=== PATIENT | male | born 1960 | race Caucasian/White ===

== ENCOUNTER 2017-05-18 20:27 | Inpatient (IN) | payer BC ==
[~2017-05-18] VITALS: Ht 167.6 cm; Wt 72.7 kg
[~2017-05-18 20:27] MED LIST: ALBU8.5H3 INH; ASPI-535 PO; ATOR10TA65 PO; BCL80INH INH; CALC667C PO; CARV12.579 PO; FAMO40TA52 PO; GABA300C16 PO; GEMF600T PO; INSU100I17 SQ; ISOS30TA PO; LANT3I SC; LOSA50TA6 PO; METF500T PO; NEPH PO; NIT4 SL; ONDA4TAB8 PO; PRED20TA PO; TRAM50TA2 PO
[2017-05-18] MEDS ORDERED: LABETALOL HCL 20MG INJ IV ONE (21:00)
[2017-05-18] MEDS ORDERED: LORAZEPAM 2 MG INJ IV ONE (21:00)
--- NOTE | 2017-05-18 21:01 | RADRPT ---
PROCEDURE: Portable chest x-ray. CLINICAL INDICATION: Chest pain. 56-year-old male.. TECHNIQUE: Portable AP view of the chest. COMPARISON: October 18, 2015. FINDINGS: In the interval since prior exam, patient has had surgery with sternal wires. Cardiomediastinal contours are normal. Linear atelectasis or scarring left lung base. Lungs are otherwise clear. Negative for pleural effusion or pneumothorax.. Old fracture deformity proximal right humerus is incompletely imaged. No acute bony abnormality. IMPRESSION: Linear atelectasis or scarring left lung base. New sternal wires. RPTAT: HCTS Physician Benjamín Date Time Electronically viewed and signed by Physician Benjamín on 05/18/2017 21:01 CS/
[2017-05-18 21:07] LABS: BASOPHILS % 0.7 % (0.0-2.0); EOSINOPHILS # 0.3 10^3/ul (0.0-0.5); EOSINOPHILS % 5.8 % (0.0-7.0); HEMOGLOBIN 15.6 g/dl (14.0-18.0); LYMPHOCYTES # 1.7 10^3/ul (0.8-2.9); LYMPHOCYTES % 31.2 % (15.0-51.0); MEAN CORPUSCULAR HEMOGLOBIN 30.3 pg (29.0-33.0); MEAN CORPUSCULAR HGB CONC 34.7 g/dl (32.0-37.0); MEAN CORPUSCULAR VOLUME 87.4 fl (82.0-101.0); MEAN PLATELET VOLUME 10.8 fl (7.4-10.4); MONOCYTE # 0.3 10^3/ul (0.3-0.9); MONOCYTES % 5.8 % (0.0-11.0); NEUTROPHIL # 3.1 10^3/ul (1.6-7.5); PLATELET COUNT 198 10^3/UL (140-415); RED BLOOD COUNT 5.15 10^6/ul (4.70-6.10); RED CELL DISTRIBUTION WIDTH 12.4 % (11.5-14.5); WHITE BLOOD COUNT 5.5 10^3/ul (4.8-10.8)
[2017-05-18 21:20] LABS: INR 0.82; PROTIME 11.3 Sec (12.2-14.2); PT RATIO 0.9
[2017-05-18 21:21] LABS: PARTIAL THROMBOPLASTIN TIME 29.6 Sec (25.0-35.0)
[2017-05-18 21:23] LABS: ANION GAP 20 (8-16); BLOOD UREA NITROGEN 44 mg/dl (7-20); CALCIUM 9.8 mg/dl (8.4-10.2); CARBON DIOXIDE 31 mmol/L (21-31); CHLORIDE 97 mmol/L (97-110); CREATININE 3.49 mg/dl (0.61-1.24); GLUCOSE 280 mg/dl (70-220); SODIUM 143 mmol/L (135-144)
[2017-05-18] MEDS ORDERED: ASPIRIN 325 MG TAB PO ONE (21:30)
[2017-05-18 21:47] LABS: ADD UMIC YES; UR ASCORBIC ACID NEGATIVE (NEGATIVE); UR BACTERIA FEW /HPF (NONE SEEN); UR BILIRUBIN (Dip) NEGATIVE (NEGATIVE); UR BLOOD (Dip) 1+ mg/dL (NEGATIVE); UR CLARITY CLEAR (CLEAR); UR COLOR YELLOW (YELLOW); UR GLUCOSE (Dip) 2+ mg/dL (NEGATIVE); UR KETONES (Dip) NEGATIVE (NEGATIVE); UR LEUKOCYTE ESTERASE (Dip) NEGATIVE Leu/ul (NEGATIVE); UR NITRITE (Dip) NEGATIVE (NEGATIVE); UR RBC 4 /HPF (0-5); UR TOTAL PROTEIN (Dip) 2+ mg/dl (NEGATIVE); UR UROBILINOGEN (Dip) NEGATIVE (NEGATIVE)
[2017-05-18 21:48] LABS: TROPONIN-I < 0.012 ng/ml (0.00-0.12)
[2017-05-18 22:19] LABS: BARBITURATES Negative (NEGATIVE); BENZODIAZEPINES Negative (NEGATIVE); CANNABINOIDS Negative (NEGATIVE); COCAINE Negative (NEGATIVE); OPIATES Negative (NEGATIVE)
--- NOTE | 2017-05-18 22:25 | ERA ---
ER Documentation Chief Complaint Date/Time DATE: 05/18/17 TIME: 22:23 Chief Complaint [id number] fron home,gen. weakness for days,slurred speech an hour ago,numbness HPI Patient is a 56-year-old male with cardiac disease, hypertension, and diabetes who presents with strokelike symptoms. He had slurred speech and left-sided arm numbness over the past few days that is coming and going. The last episode started 1 hour ago but has resolved. His blood pressure was high as well. He was brought in by ambulance. His sugar was normal at 146. His primary doctor is Dr. Ramos. He has had no treatment as of yet. ROS All systems reviewed and are negative except as per history of present illness. Medications Home Meds Active Scripts Ondansetron Hcl* (Zofran*) 4 Mg Tablet, 4 MG PO Q8H Y for NAUSEA AND/OR VOMITING , #10 TAB Prov:RAFAEL POE 10/18/15 Prednisone* (Prednisone*) 20 Mg Tab, 20 MG PO BID for 4 Days, TAB Prov:RAFAEL POE 10/18/15 Reported Medications Multivit/Ca Carb/B Cmplx/Fa* (Karena-Geovanni*) 1 Tab Tab, 1 TAB PO DAILY, TAB 10/18/15 Famotidine* (Famotidine*) 40 Mg Tablet, 40 MG PO HS, TAB 10/18/15 Nitroglycerin* (Nitrostat*) 0.4 Mg Tab.subl, 0.4 MG SL Q5MIN Y for CHEST PAIN, BOTTLE 10/18/15 Losartan Potassium* (Losartan Potassium*) 50 Mg Tablet, 50 MG PO DAILY, TAB 10/18/15 Albuterol Sulfate* (Proair HFA*) 8.5 Gm Hfa.aer.ad, 2 PUFF INH Q4H Y for WHEEZING AND SOB, #1 INHALER 10/18/15 Insulin Glulisine (Apidra Solostar) 100 Unit/1 Ml Insuln.pen, 10-15 UNIT SQ WITH MEALS 10/18/15 Insulin Glargine* (Lantus*) 100 Unit/Ml Soln, 30 UNIT SC HS, EA 10/18/15 Calcium Acetate* (Calcium Acetate*) 667 Mg Capsule, 667 MG PO WITH MEALS, #30 CAP 10/18/15 Carvedilol* (Carvedilol*) 12.5 Mg Tablet, 12.5 MG PO BID, TAB 10/18/15 Atorvastatin Calcium (Atorvastatin Calcium) 10 Mg Tab, 10 MG PO DAILY, TAB 02/20/14 Metformin Hcl (Glucophage) 500 Mg Tablet, 1000 MG PO BID, TAB 02/20/14 Gemfibrozil* (Lopid*) 600 Mg Tablet, 600 MG PO BID, TAB 02/20/14 Tramadol HCl (Tramadol HCl) 50MG Tab, 50 MG PO BID, TAB 02/20/14 Beclomethasone Dip (Qvar 80) 1 Puff Inha, 2 PUFF INH BID, INH RINSE MOUTH AFTER EACH USE 02/20/14 Isosorbide Mononitrate* (Imdur*) 30 Mg Tab.sr.24h, 30 MG PO DAILY, TAB 02/20/14 Aspirin Ec (Aspir 81) 81 Mg Tablet.dr, 81 MG PO DAILY 02/20/14 Gabapentin* (Gabapentin*) 300 Mg Capsule, 300 MG PO DAILY 02/02/13 Allergies Allergies: Coded Allergies: No Known Drug Allergies (Verified Allergy, Unknown, 10/18/15) PMhx/Soc History of Surgery: No Anesthesia Reaction: No Hx Neurological Disorder: No Hx Respiratory Disorders: No Hx Cardiac Disorders: Yes (HTN) Hx Psychiatric Problems: No Hx Miscellaneous Medical Probl: Yes (DM, HIGH CHOLESTEROL) Hx Alcohol Use: No Hx Substance Use: No Hx Tobacco Use: No Smoking Status: Never smoker FmHx Family History: diabetes Physical Exam Vitals Vital Signs Date Time Temp Pulse Resp B/P Pulse Ox O2 Delivery O2 Flow Rate FiO2 05/18/17 22:19 98.0 62 19 180/102 97 Room Air 05/18/17 21:57 98.1 63 19 183/105 97 Room Air 05/18/17 21:28 98.1 60 19 128/86 97 Room Air 05/18/17 20:59 Nasal Cannula 2 05/18/17 20:30 98.1 65 18 189/98 97 Physical Exam Const: No acute distress Head: Atraumatic Eyes: Normal Conjunctiva ENT: Normal External Ears, Nose and Mouth. Neck: Full range of motion..~ No meningismus. Resp: Clear to auscultation bilaterally Cardio: Regular rate and rhythm, no murmurs Abd: Soft, non tender, non distended. Normal bowel sounds Skin: No petechiae or rashes Back: No midline or flank tenderness Ext: No cyanosis, or edema Neur: Awake and alert, no slurred speech, no weakness of the upper or lower extremities bilaterally, cranial nerves II through XII are intact Psych: Normal Mood and Affect Result Diagram: 05/18/17205405/18/172054 Results 24 hrs Laboratory Tests Test 05/18/17 20:55 05/18/17 21:12 05/18/17 21:30 White Blood Count 5.510^3/ul Red Blood Count 5.1510^6/ul Hemoglobin 15.6g/dl Hematocrit 45.0% Mean Corpuscular Volume 87.4fl Mean Corpuscular Hemoglobin 30.3pg Mean Corpuscular Hemoglobin Concent 34.7g/dl Red Cell Distribution Width 12.4% Platelet Count 67024^3/UL Mean Platelet Volume 10.8fl Neutrophils % 56.0% Lymphocytes % 31.2% Monocytes % 5.8% Eosinophils % 5.8% Basophils % 0.7% Nucleated Red Blood Cells % 0.0/100WBC Neutrophils # 3.110^3/ul Lymphocytes # 1.710^3/ul Monocytes # 0.310^3/ul Eosinophils # 0.310^3/ul Basophils # 0.010^3/ul Nucleated Red Blood Cells # 0.010^3/ul Prothrombin Time 11.3Sec Prothrombin Time Ratio 0.9 INR International Normalized Ratio 0.82 Activated Partial Thromboplast Time 29.6Sec Sodium Level 143mmol/L Potassium Level 5.0mmol/L Chloride Level 97mmol/L Carbon Dioxide Level 31mmol/L Anion Gap 20 Blood Urea Nitrogen 44mg/dl Creatinine 3.49mg/dl Glucose Level 280mg/dl Hemoglobin A1c 10.6% Calcium Level 9.8mg/dl Troponin I < 0.012ng/ml Bedside Glucose 259mg/dL Urine Color YELLOW Urine Clarity CLEAR Urine pH 6.0 Urine Specific [place] 1.010 Urine Ketones NEGATIVEmg/dL Urine Nitrite NEGATIVEmg/dL Urine Bilirubin NEGATIVEmg/dL Urine Urobilinogen NEGATIVEmg/dL Urine Leukocyte Esterase NEGATIVELeu/ul Urine Microscopic RBC 4/HPF Urine Microscopic WBC 1/HPF Urine Bacteria FEW/HPF Urine Hemoglobin 1+mg/dL Urine Glucose 2+mg/dL Urine Total Protein 2+mg/dl Urine Opiates Screen Negative Urine Barbiturates Negative Urine Amphetamines Screen Negative Urine Benzodiazepines Screen Negative Urine Cocaine Screen Negative Urine Cannabinoids Negative Current Medications Medications (Trade) Dose Ordered Sig/Chloe Route PRN Reason Start Time Stop Time Status Last Admin Dose Admin Lorazepam (Ativan) 1 mg ONCE ONCE IV 05/18/17 21:00 05/18/17 21:01 DC Labetalol HCl (Labetalol) 20 mg ONCE ONCE IV 05/18/17 21:00 05/18/17 21:01 DC 05/18/17 20:58 Aspirin (Aspirin) 325 mg ONCE ONCE PO 05/18/17 21:30 05/18/17 21:31 DC 05/18/17 21:32 Procedures/MDM EKG read by me: Rate/Rhythm: Regular rate and rhythm at a rate of 70 Intervals: Normal Impression: No evidence of ischemia or arrhythmia PROCEDURE: Portable chest x-ray. CLINICAL INDICATION: Chest pain. 56-year-old male.. TECHNIQUE: Portable AP view of the chest. COMPARISON: October 18, 2015. FINDINGS: In the interval since prior exam, patient has had surgery with sternal wires. Cardiomediastinal contours are normal. Linear atelectasis or scarring left lung base. Lungs are otherwise clear. Negative for pleural effusion or pneumothorax.. Old fracture deformity proximal right humerus is incompletely imaged. No acute bony abnormality. IMPRESSION: Linear atelectasis or scarring left lung base. New sternal wires. RPTAT: HCTS Physician Benjamín Date Time Electronically viewed and signed by Konrad Tomlinson Physician on 05/18/2017 21: 01 Patient is adamantly refusing CT scan of the brain at this time even after offering Ativan. Patient is a 56-year-old male with multiple cardiac risk factors who presents with symptoms consistent with a TIA. At this point he has no further slurred speech or weakness and I doubt acute stroke at this time. I doubt intracranial hemorrhage although he is refusing CT scan of the brain. The patient was given aspirin as I do believe this is likely TIA or early ischemic stroke versus hemorrhagic stroke and I believe the benefits of giving aspirin outweigh the risks. The patient has a creatinine of 3.49 showing acute renal failure as his last creatinine was 1.7. The patient will be admitted transferred to [facility] given his insurance. I spoke with Dr. Jules who has accepted the patient in transfer. As his symptoms started days ago he is outside the window for TPA and his symptoms have resolved completely so also would not give TPA as the risk would outweigh the benefits. Departure Diagnosis: Primary Impression: TIA (transient ischemic attack) Qualified Code: G45.9 - Transient cerebral ischemia, unspecified type Additional Impressions: Slurred speech Acute weakness Condition: MARYJANE Rosen MD May 18, 2017 22:25
[2017-05-19] VITALS (12 sets, daily range): BP systolic 106–181; BP diastolic 66–100; PULSE 50–68; RESP 16–18; TEMP 98.1; Ht 167.6 cm; Wt 72.7 kg
[2017-05-19] MEDS ORDERED: DOCU-159 PO (00:07)
[2017-05-19] MEDS ORDERED: CLOP75TA4 PO (00:07)
[2017-05-19] MEDS ORDERED: FURO80TA3 PO (00:07)
[2017-05-19] MEDS ORDERED: ERGO500037 PO (00:07)
[2017-05-19] MEDS ORDERED: TAMS0.4C2 PO (00:07)
[2017-05-19] MEDS ORDERED: DILT240C79 PO (00:07)
[2017-05-19] MEDS ORDERED: SITA50TA2 PO (00:07)
[2017-05-19] MEDS ORDERED: FER325 PO (00:07)
[2017-05-19] MEDS ORDERED: TRAM-40 PO (00:07)
[2017-05-19] MEDS ORDERED: PARO10TA76 PO (00:07)
[2017-05-19] MEDS ORDERED: POTA-57 PO (00:07)
[2017-05-19] MEDS ORDERED: DEXTROSE 50% 50 ML SYRINGE IV PRN ×2 (05:00)
[2017-05-19] MEDS ORDERED: GLUCOSE GEL 15 GRAM TUBE PO PRN ×2 (05:00)
[2017-05-19] MEDS ORDERED: GLUCAGON 1 MG INJ IM PRN (05:00)
[2017-05-19] MEDS ORDERED: ONDANSETRON 4 MG INJ IV PRN (05:00)
[2017-05-19] MEDS ORDERED: NACL 0.9% 3 ML SYG IV SCH (05:00)
[2017-05-19] MEDS ORDERED: ACETAMINOPHEN 325 MG TAB PO PRN (05:00)
[2017-05-19] MEDS ORDERED: GLUCOSE GEL 15 GRAM TUBE BUCCAL PRN (05:00)
--- NOTE | 2017-05-19 07:14 | HP ---
Date/Time of Note Date/Time of Note DATE: 05/19/17 TIME: 06:49 Assessment/Plan VTE Prophylaxis VTE Prophylaxis Intervention: SCD's Assessment/Plan Chief Complaint/Hosp Course This is a 56-year-old male being admitted to the telemetry floor for: #1 TIA/CVA: Patient was initially to be transferred to another facility [facility] however patient was unsteady in his gait and he was deemed unstable for transfer. Patient refused CAT scan in the ED. Upon my examination patient again further was refusing CAT scan. I have ordered MRI of the brain and carotid ultrasound and echocardiogram for today, hopefully the patient will be cooperative in the morning for this. Will consult neurology. #2 coronary artery disease: At the current time will hold sepsis however once we can definitively rule out any sort of hemorrhagic neurological issue we will resume immediately. #3 diabetes: Resume patient's home insulin. The patient on insulin sliding scale. Will check hemoglobin A1c. #4 hypertension: At the current time will allow for permissive hypertension though we are not sure this is an ischemic versus hemorrhagic issue in this case. Patient though is currently stable and not showing any signs of deterioration. Will obtain the imaging as soon as we can. And adjust blood pressure parameters as indicated. We will try to maintain below 220/120 at this time. #5 depression: Resume paroxetine is indicated. #6 acute on chronic kidney disease: Previous creatinine one-point year ago was 1.7 today's creatinine is 3.49. At the current time will obtain urine sodium level, renal ultrasound. Will consult nephrology. Avoid nephrotoxic agents. #7 DVT and GI prophylaxis: SCDs, acid belinda. Further treatment strategy will be implemented for the clinical course. Problems: HPI/ROS Admit Date/Time Admit Date/Time May 19, 2017 at 01:59 Hx of Present Illness Chief complaint: Strokelike symptoms This is a is a 56-year-old male with cardiac disease, hypertension, and diabetes who presents with strokelike symptoms. He had slurred speech and left- sided arm numbness over the past few days that is coming and going. The last episode started 1 hour ago but has resolved. His blood pressure was high as well. He was brought in by ambulance. His sugar was normal at 146. His primary doctor is Dr. Ramos. Upon my examination patient did not display any signs of focal neurological deficits. Patient was in bed sleeping. He is easily arousable. Patient was questioned why he did not want to do the CAT scan and patient did not want to do it. Patient is also very poor historian. Allergies: NKDA Occasions: See DEC ROS Const: As per HPI Eyes : No pain discharge or redness or change in visual acuity ENT: No pain, sore throat, congestion, congestion, dysphagia or discharge Respiratory: No shortness of breath, cough, sputum, wheezing, or pleuritic pain Cardiovascular: No chest pain, palpitation, PND, or edema GI : no change in appetite, abdominal pain, nausea, vomiting, diarrhea, constipation, or change in the color his stool Genitourinary: No dysuria, hematuria, flank pain , discharge or CVA tenderness Musculoskeletal: No joint pain, back pain, neck pain, restricted range of motion in neck or joints Skin: No rash, bruising or hives Neuro: As per HPI Endocrine: No polyuria, polydipsia, temperature intolerance Psych: No hallucination, depression, anxiety or suicidal ideation PMH/Family/Social Past Medical History cardiac disease, hypertension, and diabetes, BPH, depression. Past Surgical History CABG? Family History Significant Family History: no pertinent family hx, other (Patient lying in bed and being uncooperative with history he wants to sleep) Social History Alcohol Use: none Smoking Status: Never smoker Drug Use: none Exam/Review of Systems Vital Signs Vitals Vital Signs Date Time Temp Pulse Resp B/P Pulse Ox O2 Delivery O2 Flow Rate FiO2 05/19/17 05:17 50 05/19/17 03:20 98.3 16 176/94 95 05/19/17 02:25 Room Air 05/18/17 20:59 2 Intake and Output 05/18/17 05/18/17 05/19/17 15:00 23:00 07:00 Intake Total 200 ml Output Total 400 ml Balance -200 ml Exam Exam General: Patient has lying in bed in no acute distress. He is easily arousable however he is uncooperative and was asleep. HEENT: Atraumatic, normocephalic. The pupils are equal, round and reactive. Extraocular motor are intact Neck: Supple with full range of motion. No rigidity or meningismus Chest: Nontender Lungs: Clear to auscultation bilaterally no crackles rales or wheezing Heart: Normal S1-S2, Regular rhythm and rate. No murmur, S3, or S4 Abdomen: Soft , nontender, nondistended , bowel sounds are present. No guarding no rebound tenderness , No masses or organomegaly. No costovertebral temporal angle mass Extremities: Normal to inspection, no edema no cyanosis Neurologic: Based on ED physician examination in my examination: Normal mental status, speech normal, cranial nerves II through XII are intact, motor and sensory are intact, no focal weakness Additional Comments EKG read by me: Rate/Rhythm: Regular rate and rhythm at a rate of 70 Intervals: Normal Impression: No evidence of ischemia or arrhythmia As per ED physician document PROCEDURE: Portable chest x-ray. CLINICAL INDICATION: Chest pain. 56-year-old male.. TECHNIQUE: Portable AP view of the chest. COMPARISON: October 18, 2015. FINDINGS: In the interval since prior exam, patient has had surgery with sternal wires. Cardiomediastinal contours are normal. Linear atelectasis or scarring left lung base. Lungs are otherwise clear. Negative for pleural effusion or pneumothorax.. Old fracture deformity proximal right humerus is incompletely imaged. No acute bony abnormality. IMPRESSION: Linear atelectasis or scarring left lung base. New sternal wires. RPTAT: HCTS Physician Benjamín Date Time Electronically viewed and signed by Physician Benjamín on 05/18/2017 21: 01 CS/ Labs Result Diagram: 05/18/17205405/18/172054 Medications Medications Current Medications Ondansetron HCl (Zofran Inj) 4 mg Q6H PRN IV NAUSEA AND/OR VOMITING; Start 08/25 at 05:00 Acetaminophen (Tylenol Tab) 650 mg Q6H PRN PO PAIN LEVEL 1-3 OR FEVER; Start at 05:00 Famotidine (Pepcid) 20 mg DAILY PO ; Start 05/19/17 at 09:00 Diagnostic Test (Pha) (Accu-Chek) 1 ea 02 XX ; Start 05/20/17 at 02:00 Miscellaneous Information 1 ea NOTE XX ; Start 05/19/17 at 05:00 Glucose (Glutose) 15 gm Q15M PRN PO DECREASED GLUCOSE; Start 05/19/17 at 05:00 Glucose (Glutose) 22.5 gm Q15M PRN PO DECREASED GLUCOSE; Start 05/19/17 at 05: 00 Dextrose (D50w Syringe) 25 ml Q15M PRN IV DECREASED GLUCOSE; Start 05/19/17 at 05:00 Dextrose (D50w Syringe) 50 ml Q15M PRN IV DECREASED GLUCOSE; Start 05/19/17 at 05:00 Glucagon (Glucagen) 1 mg Q15M PRN IM DECREASED GLUCOSE; Start 05/19/17 at 05:00 Glucose (Glutose) 15 gm Q15M PRN BUCCAL DECREASED GLUCOSE; Start 05/19/17 at 05 :00 ALFREDO FELDER May 19, 2017 06:59
[2017-05-19] MEDS ORDERED: hydrALAzine 20 MG INJ IV PRN (07:30)
[2017-05-19] MEDS: INSULIN ASPART [NOVOLOG] 3 ML PEN SC SCH ×4 (07:55→21:09)
[2017-05-19] MEDS ORDERED: CLOPIDOGREL 75 MG TAB PO SCH (09:00)
[2017-05-19] MEDS: GABAPENTIN 300 MG CAP PO SCH (09:19)
[2017-05-19] MEDS: FAMOTIDINE 20 MG TAB PO SCH (09:19)
--- NOTE | 2017-05-19 11:11 | RADRPT ---
PROCEDURE: US Renal CLINICAL INDICATION: Acute and chronic kidney disease. TECHNIQUE: Multiple sonographic images of the kidneys and bladder were obtained. Evaluation of th e kidneys and bladder was performed as well with brown scale and color and Doppler evaluation using a curved array transducer. The images were reviewed on a high-resolution PACS workstation. COMPARISON: No prior studies are available for comparison. FINDINGS: The right kidney measures 8.9 cm. The left kidney measures 9.5 cm. Renal parenchyma appears mildly echogenic bilaterally. There is no mass, calculus, or obstructive uropathy. No perinephric fluid collection is seen. Evaluation of the urinary bladder is unremarkable. IMPRESSION: 1. Mildly echogenic renal parenchyma suggesting medical renal disease. RPTAT: AACC Physician Mary Date Time Electronically viewed and signed by Physician Mary on 05/19/2017 11:11 /
--- NOTE | 2017-05-19 11:40 | CONS ---
DATE OF ADMISSION: 05/19/2017 DATE OF CONSULTATION: 05/19/2017 REASON FOR CONSULTATION: Acute kidney injury. REFERRING PHYSICIAN: Dr. Akbar. HISTORY OF PRESENT ILLNESS: This is a 56-year-old male with a past medical history of chronic kidney disease stage IIIB/IV with a baseline GFR around 32 mL/minute per patient, history of diabetes, hypertension, history of chronic disease presents to [facility] with slurred speech. The patient states he had left arm numbness and slurred speech over the past few days. It has been ongoing. The patient's symptoms resolved one hour ago. Upon arrival to the emergency room, the patient's symptoms resolve. The patient had laboratory data drawn which showed a BUN of 44, creatinine 3.49 and patient was noted to be hypertensive. The patient was given labetalol, admitted to telemetry for evaluation. In terms of patient's renal history, the patient has underlying chronic kidney disease. He sees an outside sprinkler helper, does not know the physician's name. The patient's states his kidney function is around 32 percent. He believes it to be attributed to diabetes. Denies any frothy urine, any hemoptysis, hematemesis, or hematochezia. PAST MEDICAL HISTORY: As stated above. History of hypertension, history of diabetes, history of chronic kidney disease. PAST SURGICAL HISTORY: Unknown. ALLERGIES: NONE. FAMILY HISTORY: Positive for diabetes. SOCIAL HISTORY: Does not drink, smoke, or do drugs. MEDICATION: The patient's medications have been reviewed. REVIEW OF SYSTEMS: Fourteen-point review of systems was conducted. Pertinent positives in HPI, otherwise negative. PHYSICAL EXAMINATION: VITAL SIGNS: Blood pressure is 181/100, respirations 18, pulse 55, temperature 98.5. HEENT: Head is normocephalic. NECK: Supple. HEART: Regular rate. LUNGS: Diminished breath sounds at the base. ABDOMEN: Soft, nontender to palpation. No rebound or guarding. EXTREMITIES: Negative for clubbing, cyanosis, no edema. DERMATOLOGIC: No rashes. MUSCULOSKELETAL: No joint effusion. NEUROLOGIC: Unchanged exam. LABORATORY: Sodium 143, potassium 5.0, BUN for 44, creatinine 3.49. The CBC is within normal limits. Imaging studies: Chest x-ray showed no acute findings. IMPRESSION AND PLAN: 1. Nonoliguric acute kidney injury on top of chronic kidney disease with unknown baseline creatinine. Etiology of acute kidney injury is possibly secondary to hemodynamics, ARB effect, diuretic effect, questionable tubular injury. The patient's initial urinalysis shows positive proteinuria but otherwise nonactive. Plan at this point is to get a renal ultrasound to evaluate renal parenchyma. Will repeat urinalysis and check urine electrolytes. Would recommend to hold ARB and diuretic therapy at this time. Will avoid IV fluids in setting of hypertension. Otherwise continue supportive care. Renally dose medications. Avoid nephrotoxins. 2. Hypertensive urgency. Etiology may be secondary to recent TIA, questionable stroke. The patient has refused CT scan of brain. Will monitor closely. 3. Mineral bone disorder. Will monitor calcium and phosphorus levels. 4. Transient ischemic attack/cerebral vascular accident. The patient is currently under current medical management. Continue. Follow up with Urology. 5. History of coronary disease. Continue current medical management. 6. Gastrointestinal and deep venous thrombosis prophylaxis. 7. Thank you, Dr. Akbar for this interesting consult. It will be a pleasure to follow patient with you throughout the hospital course. Dictated By: Alex Bah DO /trini/jovan /Document#: [id number]
--- NOTE | 2017-05-19 12:04 | RADRPT ---
PROCEDURE: US Carotids. CLINICAL INDICATION: bruit , tia TECHNIQUE: Multiple sonographic of the carotid bifurcation region and vertebral arteries were obta ined utilizing brown scale, duplex and color-flow imaging. The images were reviewed on a PACS worksta tion. COMPARISON: No prior studies are available for comparison. FINDINGS: Evaluation of the right carotid bifurcation region reveals mild calcific atherosclerotic disease. Evaluation of the left carotid bifurcation region reveals mild calcific atherosclerotic disease. There is antegrade flow within the vertebral arteries bilaterally. RIGHT CAROTID MEASUREMENTS: Common Carotid Ftertq169.9 (cm/sec) Internal Carotid Artery - yrfihjrb35.5 (cm/sec) Internal Carotid Artery - mid80.6 (cm/sec) Internal Carotid Artery - .2 (cm/sec) Internal Carotid/Common Carotid1.01 LEFT CAROTID MEASUREMENTS: Common Carotid Aqkmiw52.3 (cm/sec) Internal Carotid Artery - mqnteyqz46 (cm/sec) Internal Carotid Artery - mid89.4 (cm/sec) Internal Carotid Artery - jauhza64.3 (cm/sec) Internal Carotid/Common Carotid1.03 RPTAT: AA IMPRESSION: No evidence for hemodynamically significant stenosis in the bilateral internal carotid arteries - va lidated velocity measurements with angiographic measurements, velocity criteria are extrapolated fro m diameter data as defined by the Society of Radiologists in Ultrasound Consensus Conference Radiolo gy 2003; 229;340-346. This study does indirectly reference the measurement of the distal ICA diamet er as the denominator for stenosis measurement. Normal antegrade flow in the vertebral arteries bilaterally. .Yusuf House MD, MD Date Time Electronically viewed and signed by .Yusuf House MD, on 05/19/2017 12:04 .S/
[2017-05-19 12:55] LABS: CALCIUM 9.1 mg/dl (8.4-10.2); CREATININE 3.06 mg/dl (0.61-1.24); POTASSIUM 4.9 mmol/L (3.5-5.1)
--- NOTE | 2017-05-19 15:26 | PN ---
Date/Time of Note Date/Time of Note DATE: 05/19/17 TIME: 15:23 Assessment/Plan VTE Prophylaxis VTE Prophylaxis Intervention: LMWH Assessment/Plan Chief Complaint/Hosp Course 56 yo male with h/o CAD who presents with orthostatic presyncope. Culprit almost certainly excessive amount of BP medications he is prescribed as well as hypovolemia and HANSEL precipitated by lasix - Will plan to hold antihypertensives and monitor his BP - Hold lasix, give some IVF. Does not ever give a history of clinical CHF w edema etc - Trend creatinine for HANSEL, suspect improvement. 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 Gets dizzy only when standing, remains dizzy. Slurred speech occurs only in this setting. Feels normal when back supine for a few minutes. Never dizziness at rest. Became dizzy walking to bathroom. No change to PO intake. No urinary obstructive symptoms Exam/Review of Systems Vital Signs Vitals Vital Signs Date Time Temp Pulse Resp B/P Pulse Ox O2 Delivery O2 Flow Rate FiO2 05/19/17 12:49 68 05/19/17 11:16 98.4 18 135/75 96 05/19/17 02:25 Room Air 05/18/17 20:59 2 Intake and Output 05/18/17 05/18/17 05/19/17 14:59 22:59 06:59 Intake Total 200 ml Output Total 400 ml Balance -200 ml Results Result Diagram: 05/18/17205405/19/17 121 Results 24 hrs Laboratory Tests Test 05/18/17 20:55 05/18/17 21:12 05/18/17 21:30 05/19/17 08:22 White Blood Count 5.5 Red Blood Count 5.15 Hemoglobin 15.6 Hematocrit 45.0 Mean Corpuscular Volume 87.4 Mean Corpuscular Hemoglobin 30.3 Mean Corpuscular Hemoglobin Concent 34.7 Red Cell Distribution Width 12.4 Platelet Count 198 Mean Platelet Volume 10.8 H Neutrophils % 56.0 Lymphocytes % 31.2 Monocytes % 5.8 Eosinophils % 5.8 Basophils % 0.7 Nucleated Red Blood Cells % 0.0 Neutrophils # 3.1 Lymphocytes # 1.7 Monocytes # 0.3 Eosinophils # 0.3 Basophils # 0.0 Nucleated Red Blood Cells # 0.0 Prothrombin Time 11.3 L Prothrombin Time Ratio 0.9 INR International Normalized Ratio 0.82 Activated Partial Thromboplast Time 29.6 Sodium Level 143 Potassium Level 5.0 Chloride Level 97 Carbon Dioxide Level 31 Anion Gap 20 H Blood Urea Nitrogen 44 H Creatinine 3.49 H Glucose Level 280 H Hemoglobin A1c 10.6 H Calcium Level 9.8 Troponin I < 0.012 Bedside Glucose 259 H 180 Urine Color YELLOW Urine Clarity CLEAR Urine pH 6.0 Urine Specific [place] 1.010 Urine Ketones NEGATIVE Urine Nitrite NEGATIVE Urine Bilirubin NEGATIVE Urine Urobilinogen NEGATIVE Urine Leukocyte Esterase NEGATIVE Urine Microscopic RBC 4 Urine Microscopic WBC 1 Urine Bacteria FEW A Urine Hemoglobin 1+ H Urine Glucose 2+ H Urine Total Protein 2+ H Urine Opiates Screen Negative Urine Barbiturates Negative Urine Amphetamines Screen Negative Urine Benzodiazepines Screen Negative Urine Cocaine Screen Negative Urine Cannabinoids Negative Test 05/19/17 12:11 05/19/17 14:04 Sodium Level 141 Potassium Level 4.9 Chloride Level 100 Carbon Dioxide Level 28 Anion Gap 18 H Blood Urea Nitrogen 41 H Creatinine 3.06 H Glucose Level 307 H Calcium Level 9.1 Bedside Glucose 272 H Medications Medications Current Medications Ondansetron HCl (Zofran Inj) 4 mg Q6H PRN IV NAUSEA AND/OR VOMITING; Start 08/25 at 05:00 Acetaminophen (Tylenol Tab) 650 mg Q6H PRN PO PAIN LEVEL 1-3 OR FEVER; Start at 05:00 Famotidine (Pepcid) 20 mg DAILY PO Last administered on 05/19/17t 09:19; Admin Dose 20 MG; Start 05/19/17 at 09:00 Diagnostic Test (Pha) (Accu-Chek) 1 ea 02 XX ; Start 05/20/17 at 02:00 Miscellaneous Information 1 ea NOTE XX ; Start 05/19/17 at 05:00 Glucose (Glutose) 15 gm Q15M PRN PO DECREASED GLUCOSE; Start 05/19/17 at 05:00 Glucose (Glutose) 22.5 gm Q15M PRN PO DECREASED GLUCOSE; Start 05/19/17 at 05: 00 Dextrose (D50w Syringe) 25 ml Q15M PRN IV DECREASED GLUCOSE; Start 05/19/17 at 05:00 Dextrose (D50w Syringe) 50 ml Q15M PRN IV DECREASED GLUCOSE; Start 05/19/17 at 05:00 Glucagon (Glucagen) 1 mg Q15M PRN IM DECREASED GLUCOSE; Start 05/19/17 at 05:00 Glucose (Glutose) 15 gm Q15M PRN BUCCAL DECREASED GLUCOSE; Start 05/19/17 at 05 :00 Gabapentin (Neurontin) 300 mg DAILY PO Last administered on 05/19/17t 09:19; Admin Dose 300 MG; Start 05/19/17 at 09:00 Insulin Glargine (Lantus) 30 unit HS SC ; Start 05/19/17 at 21:00 Atorvastatin Calcium (Lipitor) 80 mg HS PO ; Start 05/19/17 at 21:00 DOM MCMILLAN MD May 19, 2017 15:26
[2017-05-19] MEDS ORDERED: SOD CHLORIDE 0.9% 500 ML IV ONE (15:30)
--- NOTE | 2017-05-19 16:20 | RADRPT ---
Echocardiogram Report Patient Name: YOBANI FLORES Gender: Male Date: 1960 Study Date: 19-May-2017 Senior Biostatistician: Jayson Melton [facility] Location: [id number] Ref. Physician: ALFREDO FELDER Quality: Good Procedures: Transthoracic echocardiogram with complete 2D, M-Mode, and doppler examination. Indications: Transient Ischemic Attack. 2D/M Mode Doppler Measurement Value Normal Ranges Measurement Value Normal Ranges LVIDd 2D 4.3 3.5 - 5.6 cm AV Peak Conrad 0.8 m/sec LVIDs 2D 2.9 2.1 - 4.1 cm AV Peak PG 2.0 mmHg LVPWd 2D 1.1 0.6 - 1.1 cm LVOT Peak Conrad 0.6 m/sec IVSd 2D 1.1 0.6 - 1.1 cm LVOT Peak PG 2.0 mmHg AoR Diam 2D 2.8 2.0 - 3.7 cm MV E Peak Conrad 0.7 m/sec LA Dimen 2D 3.9 2.3 - 4.0 cm MV A Peak Conrad 0.7 m/sec MV E/A 0.9 MV Decel Time 201 msec MV E/A 0.9 TR Peak Conrad 2.1 m/sec TR Peak PG 18.0 mmHg RVSP 21.0 mmHg Findings Left Ventricle: Normal left ventricular systolic function. Normal left ventricular cavity size. Mild concentric left ventricular hypertrophy. Ejection fraction is visually estimated at 55 %. Right Ventricle: Normal right ventricular size. Normal right ventricular systolic function. Left Atrium: The left atrium is normal in size. Right Atrium: The right atrium is normal in size. Mitral Valve: Mitral valve leaflets appear mildly thickened. Mild mitral annular calcification. Mild mitral valve regurgitation. Aortic Valve: Normal appearance of the aortic valve. No significant aortic stenosis or insufficiency. Tricuspid Valve: Normal appearance of the tricuspid valve. Estimated peak PA systolic pressure 21 mmHg. There is trace tricuspid regurgitation. Pulmonic Valve: Normal pulmonic valve appearance. Pericardium: Normal pericardium with no significant pericardial effusion. Aorta: Normal aortic root. IVC: Normal size and normal respiratory collapse consistent with normal right atrial pressure. Conclusions 1.Normal left ventricular systolic function. Normal left ventricular cavity size. Mild concentric left ventricular hypertrophy. Ejection fraction is visually estimated at 55 %. 2.Mitral valve leaflets appear mildly thickened. Mild mitral annular calcification. Mild mitral valve regurgitation. 3.Normal appearance of the tricuspid valve. Estimated peak PA systolic pressure 21 mmHg. There is trace tricuspid regurgitation. Electronically Signed By: Dago Marina 19-May-2017 16:19:09 -0700 Patient Name: YOBANI FLORES Study Date: 19-May-2017 [id number]
[2017-05-19] MEDS ORDERED: LORAZEPAM 2 MG INJ IV ONE (17:00)
--- NOTE | 2017-05-19 17:54 | RADRPT ---
PROCEDURE: MRI Brain without contrast. CLINICAL INDICATION: TIA TECHNIQUE: Multiplanar MRI of the brain without contrast was performed on a 3.0 T scanner with the following sequences obtained: T1-weighted, T2-weighted/FLAIR, diffusion weighted (with ADC map), GR E. COMPARISON: None available FINDINGS: There is an acute/recent lacunar infarct in the right gogo with assisted restricted diffusion and in creased T2-weighted FLAIR signal intensity. No intracranial hemorrhage - blood degradation products are identified. No extra-axial fluid collection is seen. There is no mass effect. No midline shift is identified. The ventricles and sulci are mildly enlarged, compatible with generalized volume loss. Chronic lacunar infarcts are identified in the bilateral lentiform nuclei, left thalamus, right adrianna na radiata - centrum semiovale. Mild areas of increased T2 / FLAIR signal intensity are present in the periventricular and deep white matter, nonspecific but likely related to chronic small vessel is chemic changes. Flow voids are identified in the proximal intracranial arteries and dural sinuses suggesting patency . Right mastoid air cells partially opacified. IMPRESSION: 1. Acute/recent right pontine lacunar infarct. 2. Chronic bilateral basal ganglia, left thalamic, and right murguia radiata - centrum semiovale lac unar infarcts. 3. Mild generalized volume loss, with mild chronic small vessel ischemic changes. RPTAT: VV .Adria Delgado MD, MD Date Time Electronically viewed and signed by .Adria Delgado MD, on 05/19/2017 17:54 .O/
[2017-05-19] MEDS: ATORVASTATIN 80 MG TAB PO SCH (21:06)
[2017-05-19] MEDS: INSULIN GLARGINE [LANtus] 3 ML PEN SC SCH (21:10)
[2017-05-20] VITALS (13 sets, daily range): BP systolic 131–207; BP diastolic 69–104; PULSE 53–90; RESP 16–20
[2017-05-20] MEDS ORDERED: ACCU-CHEK XX SCH (02:00)
[2017-05-20] MEDS: ACCU-CHEK XX SCH (02:00)
[2017-05-20 07:15] LABS: BASOPHIL # 0.1 10^3/ul (0.0-0.1); BASOPHILS % 1.2 % (0.0-2.0); EOSINOPHILS # 0.3 10^3/ul (0.0-0.5); EOSINOPHILS % 5.8 % (0.0-7.0); HEMATOCRIT 40.3 % (42.0-52.0); HEMOGLOBIN 13.4 g/dl (14.0-18.0); LYMPHOCYTES # 2.2 10^3/ul (0.8-2.9); MEAN CORPUSCULAR HEMOGLOBIN 29.1 pg (29.0-33.0); MEAN CORPUSCULAR HGB CONC 33.3 g/dl (32.0-37.0); MEAN CORPUSCULAR VOLUME 87.6 fl (82.0-101.0); MEAN PLATELET VOLUME 11.2 fl (7.4-10.4); MONOCYTE # 0.4 10^3/ul (0.3-0.9); MONOCYTES % 6.5 % (0.0-11.0); NEUTROPHIL # 2.7 10^3/ul (1.6-7.5); NEUTROPHILS % 47.2 % (39.0-77.0); PLATELET COUNT 172 10^3/UL (140-415); RED CELL DISTRIBUTION WIDTH 12.6 % (11.5-14.5); WHITE BLOOD COUNT 5.7 10^3/ul (4.8-10.8)
[2017-05-20 07:36] LABS: ALBUMIN 3.6 g/dl (3.3-4.9); ALBUMIN/GLOBULIN RATIO 1.28; BILIRUBIN,INDIRECT 0.3 mg/dl (0-1.1); BILIRUBIN,TOTAL 0.3 mg/dl (0.2-1.3); CALCIUM 9.2 mg/dl (8.4-10.2); CHOL/HDL RATIO 9.4 RATIO; CREATININE 3.3 mg/dl (0.61-1.24); MAGNESIUM 2.4 mg/dl (1.7-2.5); POTASSIUM 3.9 mmol/L (3.5-5.1); TOTAL PROTEIN 6.4 g/dl (6.1-8.1)
[2017-05-20] MEDS: INSULIN ASPART [NOVOLOG] 3 ML PEN SC SCH ×4 (07:55→21:12)
[2017-05-20 08:49] LABS: THYROID STIMULATING HORMONE 1.92 MIU/L (0.465-4.680)
[2017-05-20] MEDS: GABAPENTIN 300 MG CAP PO SCH (09:17)
[2017-05-20] MEDS: FAMOTIDINE 20 MG TAB PO SCH (09:17)
--- NOTE | 2017-05-20 09:49 | PN ---
DATE: 05/20/2017 SUBJECTIVE DATA: Patient is stable. No events overnight. No fevers, chills, nausea, or vomiting. OBJECTIVE DATA: VITAL SIGNS: Blood pressure is 138/76, respirations 18, pulse 60, temperature 98. HEENT: Head is normocephalic. NECK: Supple. HEART: Regular rate. LUNGS: Diminished breath sounds at the base. ABDOMEN: Soft, nontender to palpation. No rebound or guarding. EXTREMITIES: Negative for clubbing, cyanosis, no edema. DERMATOLOGIC: No rashes. MUSCULOSKELETAL: No joint effusion. NEUROLOGIC: No change in exam. MEDICATIONS: Reviewed. LABORATORY AND DIAGNOSTIC DATA: Shows a sodium 139, potassium 3.9, chloride 99, BUN 42, creatinine 3.30. The patient's urinalysis shows a FENa of greater than 1 percent. Protein creatinine ratio approximately 4 grams creatinine. MRI of the brain shows evidence of acute pontine lacunar infarcts. Renal ultrasound was reviewed and showed echogenic kidneys. ASSESSMENT AND PLAN: 1. Nonoliguric acute kidney injury on top of chronic kidney disease stage IIIB/4, with unknown baseline creatinine. Per patient, the patient has a baseline function of 30 percent. Etiology of current acute kidney injury may be secondary to hemodynamics. The possibility of underlying progression of disease is a consideration. The patient's urinalysis is bland. The patient does have glomerular proteinuria likely due to underlying chronic kidney disease and diabetic nephropathy. The patient's renal ultrasound shows no obstruction. At this point, will continue current treatment. Supportive care. Renally dose all meds. 2. Chronic kidney disease, likely due to diabetic nephropathy. The patient may be in acute kidney injury as stated above, or at a new baseline. At this point, continue to monitor. Continue supportive care. Renally dose all meds. Continue disease factor modification. Would differ ARB at this time. 3. Hypertension. Blood pressure improving. Continue current blood pressure regimen. 4. Mineral bone disorder. Monitor calcium and phosphorus levels. 5. Acute cerebrovascular accident. Continue medical management. 6. History of heart disease. Continue current treatment plan. 7. Gastrointestinal and deep venous thrombosis prophylaxis. Dictated By: Alex Bah DO /[email or web address]/brooklyn /Document#: [id number]
[2017-05-20] MEDS: ASPIRIN 81 MG TAB PO SCH (12:23)
[2017-05-20] MEDS: CLOPIDOGREL 75 MG TAB PO SCH (12:37)
--- NOTE | 2017-05-20 17:27 | PN ---
Date/Time of Note Date/Time of Note DATE: 05/20/17 TIME: 17:22 Assessment/Plan VTE Prophylaxis VTE Prophylaxis Intervention: LMWH Lines/Catheters IV Catheter Type (from Nrs): Saline Lock Assessment/Plan Chief Complaint/Hosp Course 56 yo male with h/o CAD who presents with complaint of dizziness and slurred speech Dizziness consistent with orthostatic hypotension - Culprit almost certainly excessive amount of BP medications he is prescribed as well as possible autonomic neuropathy causing orthostatis 2/2 diabetes - Will plan to hold antihypertensives and monitor his BP - Hold lasix, give some IVF. Does not ever give a history of clinical CHF w edema etc Pontine stroke: - Unclear how to correlate this to patient's symptoms - Likely related to DMII and hypertension - I have consulted Dr Wolf from neurology, await assessment - Continue antiplatelets HANSEL: - Trend creatinine for HANSEL, suspect improvement. No evidence of obstruction/ hydro on ALDO Hypertension: - Will grardually reinstate antihypertenive regimen as needed starting with Coreg 12.5 BID CAD: - Continue aspirin, plavix, and statin Hyperlipidemia: - Dietary control counseled, continue statin DMII: - Uncontrolled with A1C > 10 - Will need to increase lantus as outpatient Discharge likely tomorrow Problems: Subjective 24 Hr Interval Summary Free Text/Dictation Patient feeling better today, dizziness has resolved MRI brain shows acute pontine lacunar infarct, neurology consulted Exam/Review of Systems Vital Signs Vitals Vital Signs Date Time Temp Pulse Resp B/P Pulse Ox O2 Delivery O2 Flow Rate FiO2 05/20/17 16:12 68 05/20/17 15:46 97.9 19 192/100 99 05/19/17 02:25 Room Air 05/18/17 20:59 2 Intake and Output 05/19/17 05/19/17 05/20/17 15:00 23:00 07:00 Intake Total 600 ml Balance 600 ml Exam Well appearing CN II-XII in tact, strength and sensation in tact throughout, no ataxic movements, gait normal CV: RRR, no m/r/g Clear lungs No edema Laboratory Tests Test 05/19/17 18:02 05/19/17 21:03 05/20/17 01:30 05/20/17 06:09 Bedside Glucose 161mg/dL 213mg/dL 149mg/dL White Blood Count 5.710^3/ul Red Blood Count 4.6010^6/ul Hemoglobin 13.4g/dl Hematocrit 40.3% Mean Corpuscular Volume 87.6fl Mean Corpuscular Hemoglobin 29.1pg Mean Corpuscular Hemoglobin Concent 33.3g/dl Red Cell Distribution Width 12.6% Platelet Count 19311^3/UL Mean Platelet Volume 11.2fl Neutrophils % 47.2% Lymphocytes % 39.0% Monocytes % 6.5% Eosinophils % 5.8% Basophils % 1.2% Nucleated Red Blood Cells % 0.0/100WBC Neutrophils # 2.710^3/ul Lymphocytes # 2.210^3/ul Monocytes # 0.410^3/ul Eosinophils # 0.310^3/ul Basophils # 0.110^3/ul Nucleated Red Blood Cells # 0.010^3/ul Sodium Level 139mmol/L Potassium Level 3.9mmol/L Chloride Level 99mmol/L Carbon Dioxide Level 31mmol/L Anion Gap 13 Blood Urea Nitrogen 42mg/dl Creatinine 3.30mg/dl Glucose Level 88mg/dl Hemoglobin A1c 10.3% Calcium Level 9.2mg/dl Phosphorus Level 4.9mg/dl Magnesium Level 2.4mg/dl Total Bilirubin 0.3mg/dl Direct Bilirubin 0.00mg/dl Indirect Bilirubin 0.3mg/dl Aspartate Amino Transf (AST/SGOT) 19IU/L Alanine Aminotransferase (ALT/SGPT) 34IU/L Alkaline Phosphatase 77IU/L Total Protein 6.4g/dl Albumin 3.6g/dl Globulin 2.80g/dl Albumin/Globulin Ratio 1.28 Triglycerides Level 280mg/dl Cholesterol Level 320mg/dl LDL Cholesterol, Calculated 230mg/dl HDL Cholesterol 34mg/dl Cholesterol/HDL Ratio 9.4RATIO Thyroid Stimulating Hormone (TSH) 1.920MIU/L Test 05/20/17 08:34 05/20/17 12:28 Bedside Glucose 86mg/dL 242mg/dL Current Medications Medications (Trade) Dose Ordered Sig/Chloe Route PRN Reason Start Time Stop Time Status Last Admin Dose Admin Lorazepam (Ativan) 1 mg ONCE ONCE IV 05/18/17 21:00 05/18/17 21:01 DC Labetalol HCl (Labetalol) 20 mg ONCE ONCE IV 05/18/17 21:00 05/18/17 21:01 DC 05/18/17 20:58 20 MG Aspirin (Aspirin) 325 mg ONCE ONCE PO 05/18/17 21:30 05/18/17 21:31 DC 05/18/17 21:32 325 MG IV Flush (NS 3 ml) 3 ml PER PROTOCOL IV 05/19/17 05:00 Ondansetron HCl (Zofran Inj) 4 mg Q6H PRN IV NAUSEA AND/OR VOMITING 05/19/17 05:00 Acetaminophen (Tylenol Tab) 650 mg Q6H PRN PO PAIN LEVEL 1-3 OR FEVER 05/19/17 05:00 Famotidine (Pepcid) 20 mg DAILY PO 05/19/17 09:00 05/20/17 09:17 20 MG Miscellaneous Information (* Miscellaneous Pharmacy Order) Discontinue current oral sulfonylur... ONCE ONCE XX 05/19/17 05:00 05/19/17 05:01 DC Diagnostic Test (Pha) (Accu-Chek) 1 ea 02 XX 05/20/17 02:00 Miscellaneous Information (* Miscellaneous Pharmacy Order) HYPOGLYCEMIA PROTOCOL w... ONCE ONCE XX 05/19/17 05:00 05/19/17 05:01 DC Insulin Aspart (Novolog Insulin Pen) NOVOLOG *MODERATE* ALGORITHM WITH MEALS BEDTIME SC 05/19/17 07:55 05/20/17 12:37 6 UNIT Miscellaneous Information (* Miscellaneous Pharmacy Order) Discontinue all previ... ONCE ONCE XX 05/19/17 05:00 05/19/17 05:01 DC Diagnostic Test (Pha) (Accu-Chek) 1 ea 02 XX 05/20/17 02:00 05/20/17 02:00 DC Miscellaneous Information 1 ea NOTE XX 05/19/17 05:00 Glucose (Glutose) 15 gm Q15M PRN PO DECREASED GLUCOSE 05/19/17 05:00 Glucose (Glutose) 22.5 gm Q15M PRN PO DECREASED GLUCOSE 05/19/17 05:00 Dextrose (D50w Syringe) 25 ml Q15M PRN IV DECREASED GLUCOSE 05/19/17 05:00 Dextrose (D50w Syringe) 50 ml Q15M PRN IV DECREASED GLUCOSE 05/19/17 05:00 Glucagon (Glucagen) 1 mg Q15M PRN IM DECREASED GLUCOSE 05/19/17 05:00 Glucose (Glutose) 15 gm Q15M PRN BUCCAL DECREASED GLUCOSE 05/19/17 05:00 Clopidogrel Bisulfate (plaVIX) 75 mg DAILY PO 05/19/17 09:00 05/19/17 09:00 DC Gabapentin (Neurontin) 300 mg DAILY PO 05/19/17 09:00 05/20/17 09:17 300 MG Insulin Glargine (Lantus) 30 unit HS SC 05/19/17 21:00 05/19/17 21:10 30 UNIT Hydralazine HCl (Apresoline) 10 mg Q4H PRN IV BP ABOVE 220/120 05/19/17 07:30 05/19/17 10:11 DC 05/19/17 09:20 10 MG Atorvastatin Calcium 80 mg 80 mg HS PO 05/19/17 21:00 05/19/17 21:06 80 MG Sodium Chloride (NS) 500 ml @ 500 mls/hr Q1H ONCE IV 05/19/17 15:30 05/19/17 16:29 DC 05/19/17 15:30 500 MLS/HR Lorazepam (Ativan) 1 mg ONCE ONCE IV 05/19/17 17:00 05/19/17 17:01 DC 05/19/17 17:05 1 MG Aspirin (Aspirin) 81 mg DAILY PO 05/20/17 11:30 05/20/17 12:23 81 MG Clopidogrel Bisulfate (plaVIX) 75 mg DAILY PO 05/20/17 12:30 05/20/17 12:37 75 MG Carvedilol (Coreg) 12.5 mg BID PO 05/20/17 16:30 UNV Carvedilol (Coreg) 12.5 mg BID PO 05/20/17 16:30 05/20/17 16:37 12.5 MG Results Result Diagram: 05/20/17 0609 05/20/17 0609 Results 24 hrs Laboratory Tests Test 05/19/17 18:02 05/19/17 21:03 05/20/17 01:30 05/20/17 06:09 Bedside Glucose 161 213 149 White Blood Count 5.7 Red Blood Count 4.60 L Hemoglobin 13.4 L Hematocrit 40.3 L Mean Corpuscular Volume 87.6 Mean Corpuscular Hemoglobin 29.1 Mean Corpuscular Hemoglobin Concent 33.3 Red Cell Distribution Width 12.6 Platelet Count 172 Mean Platelet Volume 11.2 H Neutrophils % 47.2 Lymphocytes % 39.0 Monocytes % 6.5 Eosinophils % 5.8 Basophils % 1.2 Nucleated Red Blood Cells % 0.0 Neutrophils # 2.7 Lymphocytes # 2.2 Monocytes # 0.4 Eosinophils # 0.3 Basophils # 0.1 Nucleated Red Blood Cells # 0.0 Sodium Level 139 Potassium Level 3.9 Chloride Level 99 Carbon Dioxide Level 31 Anion Gap 13 Blood Urea Nitrogen 42 H Creatinine 3.30 H Glucose Level 88 # Hemoglobin A1c 10.3 H Calcium Level 9.2 Phosphorus Level 4.9 Magnesium Level 2.4 Total Bilirubin 0.3 Direct Bilirubin 0.00 Indirect Bilirubin 0.3 Aspartate Amino Transf (AST/SGOT) 19 Alanine Aminotransferase (ALT/SGPT) 34 Alkaline Phosphatase 77 Total Protein 6.4 Albumin 3.6 Globulin 2.80 Albumin/Globulin Ratio 1.28 Triglycerides Level 280 H Cholesterol Level 320 H LDL Cholesterol, Calculated 230 HDL Cholesterol 34 Cholesterol/HDL Ratio 9.4 Thyroid Stimulating Hormone (TSH) 1.920 Test 05/20/17 08:34 05/20/17 12:28 Bedside Glucose 86 242 H Medications Medications Current Medications Ondansetron HCl (Zofran Inj) 4 mg Q6H PRN IV NAUSEA AND/OR VOMITING; Start 08/25 at 05:00 Acetaminophen (Tylenol Tab) 650 mg Q6H PRN PO PAIN LEVEL 1-3 OR FEVER; Start at 05:00 Famotidine (Pepcid) 20 mg DAILY PO Last administered on 05/20/17t 09:17; Admin Dose 20 MG; Start 05/19/17 at 09:00 Diagnostic Test (Pha) (Accu-Chek) 1 ea 02 XX ; Start 05/20/17 at 02:00 Miscellaneous Information 1 ea NOTE XX ; Start 05/19/17 at 05:00 Glucose (Glutose) 15 gm Q15M PRN PO DECREASED GLUCOSE; Start 05/19/17 at 05:00 Glucose (Glutose) 22.5 gm Q15M PRN PO DECREASED GLUCOSE; Start 05/19/17 at 05: 00 Dextrose (D50w Syringe) 25 ml Q15M PRN IV DECREASED GLUCOSE; Start 05/19/17 at 05:00 Dextrose (D50w Syringe) 50 ml Q15M PRN IV DECREASED GLUCOSE; Start 05/19/17 at 05:00 Glucagon (Glucagen) 1 mg Q15M PRN IM DECREASED GLUCOSE; Start 05/19/17 at 05:00 Glucose (Glutose) 15 gm Q15M PRN BUCCAL DECREASED GLUCOSE; Start 05/19/17 at 05 :00 Gabapentin (Neurontin) 300 mg DAILY PO Last administered on 05/20/17 09:17; Admin Dose 300 MG; Start 05/19/17 at 09:00 Insulin Glargine (Lantus) 30 unit HS SC Last administered on 05/19/17 21:10; Admin Dose 30 UNIT; Start 05/19/17 at 21:00 Atorvastatin Calcium (Lipitor) 80 mg HS PO Last administered on 05/19/17 21:06 ; Admin Dose 80 MG; Start 05/19/17 at 21:00 Aspirin (Aspirin) 81 mg DAILY PO Last administered on 05/20/17 12:23; Admin Dose 81 MG; Start 05/20/17 at 11:30 Clopidogrel Bisulfate (plaVIX) 75 mg DAILY PO Last administered on 05/20/17 12 :37; Admin Dose 75 MG; Start 05/20/17 at 12:30 Carvedilol (Coreg) 12.5 mg BID PO Last administered on 05/20/17 16:37; Admin Dose 12.5 MG; Start 05/20/17 at 16:30 DOM MCMILLAN MD May 20, 2017 17:27
[2017-05-20] MEDS ORDERED: NIFEdipine (XL) 30 MG TAB PO SCH (19:00)
[2017-05-20] MEDS ORDERED: NIFEdipine (XL) 90 MG TAB PO SCH ×2 (20:00)
[2017-05-20] MEDS: ATORVASTATIN 80 MG TAB PO SCH (20:55)
[2017-05-20] MEDS: INSULIN GLARGINE [LANtus] 3 ML PEN SC SCH (21:10)
[2017-05-21] VITALS (14 sets, daily range): BP systolic 85–183; BP diastolic 55–91; PULSE 58–74; RESP 15–20
[2017-05-21] MEDS: ACCU-CHEK XX SCH (02:00)
--- NOTE | 2017-05-21 05:28 | CONS ---
DATE OF ADMISSION: 05/19/2017 DATE OF CONSULTATION: 05/20/2017 Thank you for asking me to see the patient with you. HISTORY OF PRESENT ILLNESS: The patient is a 56-year-old male with a past medical history of hypertension, hyperlipidemia, diabetes. The patient was admitted for more evaluation and treatment. The patient had the sudden onset of slurred speech, side numbness, some difficulty with swallowing, about him by Dr. Joseluis Lambert. PAST MEDICAL HISTORY: As above which includes hypertension, diabetes, dyslipidemia. PHYSICAL EXAMINATION: GENERAL APPEARANCE: The patient is awake, alert, and oriented. Following simple commands. HEART: Regular rate and rhythm. LUNGS: Equal breath sounds. ABDOMEN: Soft, flat, nontender. NEUROLOGIC: Cranial nerves: II: Pupils equal on both sides. III, IV and : . V: Equal sensation of the face. VII: Decreased nasal labial fold on the right side. VIII: Decreased hearing on the right side. IX and X: Palate elevated. XI: Elevated shoulder shrug. Motor exam: The left side with 4 plus/5 sensation. 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 Coordination intact for [id number]. ASSESSMENT AND PLAN:: 1. The patient is a 56 year old with underlying stroke with right pontine stroke. Continue the patient's aspirin as well as Plavix. This is a good combination for stroke prophylaxis. 2. History of hypertension which is uncontrolled. The patient does not take his medication when his blood pressure goes down with the medicine. We can start the patient on medication consistently and keep the blood pressure less than 140/90 to avoid any extension of stroke. 3. Diabetes. Will follow up the patient's sliding scale insulin and Accu-Chek. 4. Status post coronary artery disease. Continue the patient on Plavix 75 mg as well as aspirin. 5. History of chronic kidney insufficiency. The patient's creatinine is 3.4, followed by fine sander. 6. Give the patient DVT prophylaxis as well as ulcer prophylaxis. 7. We might follow up the patient with physical therapy and speech therapy to evaluate his swallowing. 8. Will follow up the patient with lipid panel and maximize his statin. 9. Again, thank you. Dictated By: Jordan Hooper MD /trini/jovan /Document#: [id number]
[2017-05-21 06:42] LABS: BASOPHIL # 0.1 10^3/ul (0.0-0.1); BASOPHILS % 1.2 % (0.0-2.0); EOSINOPHILS # 0.3 10^3/ul (0.0-0.5); EOSINOPHILS % 4.6 % (0.0-7.0); HEMATOCRIT 40.5 % (42.0-52.0); HEMOGLOBIN 13.6 g/dl (14.0-18.0); LYMPHOCYTES # 2.2 10^3/ul (0.8-2.9); LYMPHOCYTES % 32.6 % (15.0-51.0); MEAN CORPUSCULAR HEMOGLOBIN 29.3 pg (29.0-33.0); MEAN CORPUSCULAR HGB CONC 33.6 g/dl (32.0-37.0); MEAN CORPUSCULAR VOLUME 87.3 fl (82.0-101.0); MEAN PLATELET VOLUME 11.1 fl (7.4-10.4); MONOCYTE # 0.5 10^3/ul (0.3-0.9); MONOCYTES % 6.9 % (0.0-11.0); NEUTROPHIL # 3.6 10^3/ul (1.6-7.5); NEUTROPHILS % 54.1 % (39.0-77.0); PLATELET COUNT 188 10^3/UL (140-415); RED BLOOD COUNT 4.64 10^6/ul (4.70-6.10); RED CELL DISTRIBUTION WIDTH 12.4 % (11.5-14.5); WHITE BLOOD COUNT 6.7 10^3/ul (4.8-10.8)
[2017-05-21 07:25] LABS: CALCIUM 9.2 mg/dl (8.4-10.2); CREATININE 2.94 mg/dl (0.61-1.24); MAGNESIUM 2.4 mg/dl (1.7-2.5); PHOSPHORUS 4.9 mg/dl (2.5-4.9); POTASSIUM 4.2 mmol/L (3.5-5.1)
[2017-05-21] MEDS: INSULIN ASPART [NOVOLOG] 3 ML PEN SC SCH ×4 (07:45→20:25)
[2017-05-21] MEDS: CLOPIDOGREL 75 MG TAB PO SCH (08:29)
[2017-05-21] MEDS: GABAPENTIN 300 MG CAP PO SCH (08:29)
[2017-05-21] MEDS: ASPIRIN 81 MG TAB PO SCH (08:29)
[2017-05-21] MEDS: FAMOTIDINE 20 MG TAB PO SCH (08:29)
--- NOTE | 2017-05-21 12:16 | PN ---
DATE: 05/21/2017 SUBJECTIVE DATA: This morning the patient noted to be orthostatic with light-headedness and dizziness. No other events noted. No hemoptysis, hematemesis, hematochezia. OBJECTIVE DATA: VITAL SIGNS: Blood pressure is 113/71, respirations 16, pulse 72, temperature 97.9. HEENT: Head is normocephalic. NECK: Supple. HEART: Regular rate. LUNGS: Diminished breath sounds at the base. ABDOMEN: Soft, nontender to palpation. No rebound or guarding. EXTREMITIES: Negative for clubbing, cyanosis, no edema. DERMATOLOGIC: Clean. No rashes. MUSCULOSKELETAL: No joint effusion. NEUROLOGIC: No change in exam. MEDICATIONS: Reviewed. LABORATORY DATA: Show sodium 141, potassium 4.2, chloride 101, BUN 39, creatinine 2.94. White count 6.71, hemoglobin 13.6, hematocrit 40.5, platelet count is 188. ASSESSMENT AND PLAN: 1. Nonoliguric acute kidney injury on top of chronic kidney disease stage IIIB with unknown baseline creatinine. Etiology of acute kidney injury secondary to hemodynamics. Renal function is fluctuating. At this point will continue current treatment. Supportive care. Renally dose all meds. Continue to hold ARB. 2. Chronic kidney disease likely from diabetic nephropathy. The patient is currently acute kidney injury stated above. Continue current treatment plan and supportive care. Renally dose all meds. Continue disease factor modification. Would defer any ARB or KRISHAN inhibitor at this time. 3. Orthostatic hypotension. Etiology may be secondary to volume depletion versus neurogenic from recent cerebrovascular accident. Will monitor closely. Consider gentle fluid challenge. Agree with holding blood pressure medications. 4. Mineral bone disorder. Monitor calcium and phosphorus levels. 5. Acute cerebrovascular accident. Continue medical management. 6. Coronary disease. Continue current treatment plan. 7. Gastrointestinal and deep venous thrombosis prophylaxis. Dictated By: Alex Bah DO /trini/sunshine /Document#: [id number]
--- NOTE | 2017-05-21 13:04 | RADRPT ---
PROCEDURE: Noncontrast CT Head. CLINICAL INDICATION: Stroke. TECHNIQUE: Noncontrast CT of the head was obtained. The administered radiation dose was CTDI vol = 44.73 mGy, DLP = 720.23 mGy-cm. One or more of the following dose reduction techniques were used: Au tomated exposure control, Adjustment of the mA and/or kV according to patient size, or Use of iterat kaylin reconstruction technique. COMPARISON: There are no similar studies submitted for comparison. Noncontrast MRI of the brain from May 19, 2017. FINDINGS: The ventricles and sulci are within normal limits. There is minimal periventricular hypoattenuation suggesting chronic microvascular ischemic changes. There are chronic right frontal periventricular murguia radiata lacunar infarctions. There are chroni c left basal ganglion left thalamic lacunar infarctions. Acute / recent right paramedian pontine infarction is again noted. There is no loss of brown-white differentiation to suggest acute territorial infarction. There is no acute intracranial hemorrhage or extra-axial fluid collection. There is no mass effect. No midline shift is identified. The orbits are within normal limits. The paranasal sinuses are well aerated. No destructive osseous lesion is identified. IMPRESSION: 1. Acute / recent right paramedian pontine infarction is again noted. 2. No acute intracranial hemorrhage or extra-axial fluid collection. 3. Chronic right frontal periventricular murguia radiata lacunar infarctions. 4. Chronic left basal ganglia and left thalamic lacunar infarctions. 5. Minimal chronic microvascular ischemic changes. Further findings as detailed above. RPTAT: HVF .Pa Kuo MD, MD Date Time Electronically viewed and signed by .Pa Kuo MD, on 05/21/2017 13:03 .F/
[2017-05-21] MEDS ORDERED: GABAPENTIN 300 MG CAP PO SCH (13:19)
[2017-05-21] MEDS: LEVETIRACETAM 500 MG TAB PO SCH ×2 (14:32→20:20)
[2017-05-21] MEDS: TAMSULOSIN (SR) 0.4 MG CAP PO SCH ×2 (16:26→20:20)
--- NOTE | 2017-05-21 16:37 | PN ---
Date/Time of Note Date/Time of Note DATE: 05/21/17 TIME: 16:31 Assessment/Plan VTE Prophylaxis VTE Prophylaxis Intervention: LMWH Lines/Catheters IV [facility] Saline Lock Urinary Cath still in place: Yes Reason Cath still needed: urinary retention Assessment/Plan Chief Complaint/Hosp Course 56 yo male with h/o CAD, DMII, CKD, BPH who presented with complaint of dizziness and slurred speech. He has marked systolic hypertension but severe orthostatic symptoms. MRI showing acute pontine stroke, unclear how this relates to his symtoms. BPH causing urinary retention. Dizziness consistent with orthostatic hypotension - 2/2 autonomic neuropathy from DMII as well as antihypertensives - Difficult to manage this given his systolic hypertension with orthostasis. Will reinstate nifedipine 30 alone and hold his beta belinda, diltiazem, losartan and diuretics. We will likely have to tolerate a degree of hypertension to avoid falls and symptomatic orthostasis Pontine stroke: - EEG, management per neurology consult - Unclear how to correlate this to patient's symptoms - Likely related to DMII and hypertension - Continue antiplatelets, aspirin/plavix and statin CKD III: - Stable, likely chronic Hypertension: - As above CAD: - Continue aspirin, plavix, and statin Hyperlipidemia: - Dietary control counseled, continue statin DMII: - Uncontrolled with A1C > 10 - Will need to increase lantus as outpatient BPH: - Linares placed for acute urinary retention - Continue tamsulosin Discharge to self care when workup complete Problems: Subjective 24 Hr Interval Summary Free Text/Dictation Events: - Patient started on Coreg and nifedipine yesterday for hypertension to systolic 200s. Today developed marked orthostasis, with supine to standing BP from 180 to 80s systolic and symptomatic dizziness - Patient complained of L sided weakness in arm and legs. Stat CT was performed which showed no interval change from prior. His symptoms resolved. - Patient then developed urinary retention and a linares catheter was placed. His flomax had been held on admission, this was restarted Exam/Review of Systems Vital Signs Vitals Vital Signs Date Time Temp Pulse Resp B/P Pulse Ox O2 Delivery O2 Flow Rate FiO2 05/21/17 16:28 97.6 63 18 126/71 95 Room Air 05/18/17 20:59 2 Intake and Output 05/20/17 05/20/17 05/21/17 14:59 22:59 06:59 Intake Total 1800 ml 500 ml Balance 1800 ml 500 ml Results Result Diagram: 05/21/17 0606 05/21/17 0606 Results 24 hrs Laboratory Tests Test 05/20/17 17:24 05/20/17 20:51 05/21/17 01:59 05/21/17 06:06 Bedside Glucose 205 280 H 208 White Blood Count 6.7 Red Blood Count 4.64 L Hemoglobin 13.6 L Hematocrit 40.5 L Mean Corpuscular Volume 87.3 Mean Corpuscular Hemoglobin 29.3 Mean Corpuscular Hemoglobin Concent 33.6 Red Cell Distribution Width 12.4 Platelet Count 188 Mean Platelet Volume 11.1 H Neutrophils % 54.1 Lymphocytes % 32.6 Monocytes % 6.9 Eosinophils % 4.6 Basophils % 1.2 Nucleated Red Blood Cells % 0.0 Neutrophils # 3.6 Lymphocytes # 2.2 Monocytes # 0.5 Eosinophils # 0.3 Basophils # 0.1 Nucleated Red Blood Cells # 0.0 Sodium Level 141 Potassium Level 4.2 Chloride Level 101 Carbon Dioxide Level 31 Anion Gap 13 Blood Urea Nitrogen 39 H Creatinine 2.94 H Glucose Level 47 #*L Calcium Level 9.2 Phosphorus Level 4.9 Magnesium Level 2.4 Test 05/21/17 06:19 05/21/17 06:35 05/21/17 06:51 05/21/17 07:43 Bedside Glucose 58 L 92 86 94 Test 05/21/17 12:07 Bedside Glucose 173 Medications Medications Current Medications Ondansetron HCl (Zofran Inj) 4 mg Q6H PRN IV NAUSEA AND/OR VOMITING; Start 08/25 at 05:00 Acetaminophen (Tylenol Tab) 650 mg Q6H PRN PO PAIN LEVEL 1-3 OR FEVER; Start at 05:00 Famotidine (Pepcid) 20 mg DAILY PO Last administered on 05/21/17t 08:29; Admin Dose 20 MG; Start 05/19/17 at 09:00 Diagnostic Test (Pha) (Accu-Chek) 1 ea 02 XX ; Start 05/20/17 at 02:00 Miscellaneous Information 1 ea NOTE XX ; Start 05/19/17 at 05:00 Glucose (Glutose) 15 gm Q15M PRN PO DECREASED GLUCOSE; Start 05/19/17 at 05:00 Glucose (Glutose) 22.5 gm Q15M PRN PO DECREASED GLUCOSE; Start 05/19/17 at 05: 00 Dextrose (D50w Syringe) 25 ml Q15M PRN IV DECREASED GLUCOSE; Start 05/19/17 at 05:00 Dextrose (D50w Syringe) 50 ml Q15M PRN IV DECREASED GLUCOSE; Start 05/19/17 at 05:00 Glucagon (Glucagen) 1 mg Q15M PRN IM DECREASED GLUCOSE; Start 05/19/17 at 05:00 Glucose (Glutose) 15 gm Q15M PRN BUCCAL DECREASED GLUCOSE; Start 05/19/17 at 05 :00 Atorvastatin Calcium (Lipitor) 80 mg HS PO Last administered on 05/20/17 20:55 ; Admin Dose 80 MG; Start 05/19/17 at 21:00 Aspirin (Aspirin) 81 mg DAILY PO Last administered on 05/21/17 08:29; Admin Dose 81 MG; Start 05/20/17 at 11:30 Clopidogrel Bisulfate (plaVIX) 75 mg DAILY PO Last administered on 05/21/17 08 :29; Admin Dose 75 MG; Start 05/20/17 at 12:30 Insulin Glargine (Lantus) 27 unit HS SC ; Start 05/21/17 at 21:00 Gabapentin (Neurontin) 300 mg TID PO Last administered on 05/21/17 14:32; Admin Dose 300 MG; Start 05/21/17 at 13:19 Levetiracetam (Keppra) 500 mg BID PO Last administered on 05/21/17 14:32; Admin Dose 500 MG; Start 05/21/17 at 13:30 Tamsulosin HCl (Flomax) 0.4 mg HS PO Last administered on 05/21/17 16:26; Admin Dose 0.4 MG; Start 05/21/17 at 15:00 DOM MCMILLAN MD May 21, 2017 16:37
[2017-05-21] MEDS: ATORVASTATIN 80 MG TAB PO SCH (20:20)
[2017-05-21] MEDS: INSULIN GLARGINE [LANtus] 3 ML PEN SC SCH (20:26)
[2017-05-21] MEDS ORDERED: INSULIN GLARGINE [LANtus] 3 ML PEN SC SCH (21:00)
[2017-05-22] VITALS (11 sets, daily range): BP systolic 127–174; BP diastolic 72–92; PULSE 57–74; RESP 19–20
[2017-05-22] MEDS: ACCU-CHEK XX SCH (02:00)
[2017-05-22 07:09] LABS: CALCIUM 9.2 mg/dl (8.4-10.2); CREATININE 2.77 mg/dl (0.61-1.24); MAGNESIUM 2.2 mg/dl (1.7-2.5); PHOSPHORUS 4.4 mg/dl (2.5-4.9); POTASSIUM 4.2 mmol/L (3.5-5.1)
[2017-05-22] MEDS: LEVETIRACETAM 500 MG TAB PO SCH ×2 (08:30→21:12)
[2017-05-22] MEDS: ASPIRIN 81 MG TAB PO SCH (08:30)
[2017-05-22] MEDS: CLOPIDOGREL 75 MG TAB PO SCH (08:30)
[2017-05-22] MEDS: FAMOTIDINE 20 MG TAB PO SCH (08:31)
[2017-05-22] MEDS: NIFEdipine (XL) 30 MG TAB PO SCH (08:31)
[2017-05-22] MEDS: INSULIN ASPART [NOVOLOG] 3 ML PEN SC SCH ×4 (08:33→21:24)
--- NOTE | 2017-05-22 13:48 | CONS ---
DATE OF SERVICE: 05/21/2017 HISTORY OF PRESENT ILLNESS: The patient is a 56 year old who has a past medical history of hypertension, diabetes, stroke in which the patient is on Plavix and aspirin for prevention. The patient had more weakness of his left upper extremity today in which I got a call about him. The patient has right pontine infarction, basal ganglia left thalamic, right murguia radiata semiovale with multiple lacunar infarctions. PHYSICAL EXAMINATION: EXTREMITIES: Left upper extremity is 4+/5. SERVICE MEMBER: Cranial Nerves: Cranial nerve II: Pupils equal on both sides, reactive to light. Cranial nerves II, IV and : Extraocular muscles intact. Cranial nerve V: Equal sensation to face. Cranial nerve VII: Symmetrical face. Cranial nerve VIII: Decreased hearing bilaterally. Cranial nerves IX and X: Elevates palate. Cranial nerve XI: Elevates shoulder 5/5. Cranial nerve XII: With straight tongue. Motor exam: Left upper extremity is 4+/5. Sensation decreased for glove and sock area for light touch and temperature. Coordination: Finger-to- nose test intact. HEART: Regular rate and rhythm. LUNGS: Equal breath sounds. ABDOMEN: Soft. Benign. Nontender. Nondistended. ASSESSMENT: 1. This patient is a 56-year-old male with multiple lacunar infarctions. Continue the patient on aspirin and Plavix for now for stroke prophylaxis. Will followup the patient with cardiac echocardiogram. 2. underlying seizure activity. Followup the patient with electroencephalogram and start him on Keppra 500 mg and keep the patient on seizure precaution for now. 3. weakness secondary to multiple strokes the patient had in the past. Will followup the patient with physical medicine and rehab, possible acute rehab facility. 4. The patient has a history of hypertension in which the patient was not compliant with his medication in which the patient needs. I educated him about the importance to take his medicine and keep his blood pressure at reasonable to avoid any more strokes. 5. History of diabetes in which the patient is followed by sliding scale insulin and Accu-Cheks. 6. Give the patient deep vein thrombosis prophylaxis. 7. Followup the patient with physical therapy and rehabilitation. Dictated By: Jordan Hooper MD /fnt/ /Document#: [id number]
[2017-05-22 15:41] LABS: MICROALBUMIN 113.1 mg/dL
--- NOTE | 2017-05-22 16:18 | PN ---
Date/Time of Note Date/Time of Note DATE: 05/22/17 TIME: 16:12 Assessment/Plan VTE Prophylaxis VTE Prophylaxis Intervention: SCD's Lines/Catheters IV Catheter Type (from Nrs): Saline Lock Assessment/Plan Chief Complaint/Hosp Course 56 yo male with h/o CAD, DMII, CKD, BPH who presented with complaint of dizziness and slurred speech. He has marked systolic hypertension but severe orthostatic symptoms. MRI showing acute pontine stroke, unclear how this relates to his symptoms. BPH causing urinary retention. Dizziness consistent with orthostatic hypotension - 2/2 autonomic neuropathy from DMII as well as antihypertensives - Difficult to manage this given his systolic hypertension with orthostasis. Continue nifedipine 30 alone and hold his beta belinda, diltiazem, losartan and diuretics. We will likely have to tolerate a degree of hypertension to avoid falls and symptomatic orthostasis -PT evaluation, okay for PT to work with patient if BP less than 170 his blood pressure is labile Pontine stroke: - EEG, management per neurology consult - Unclear how to correlate this to patient's symptoms - Likely related to DMII and hypertension - Continue antiplatelets, aspirin/plavix and statin CKD III: - Stable, likely chronic Hypertension: - As above CAD: - Continue aspirin, plavix, and statin Hyperlipidemia: - Dietary control counseled, continue statin DMII: - Uncontrolled with A1C > 10 - Will need to increase lantus as outpatient BPH: - Winters placed for acute urinary retention - Continue tamsulosin Prophylaxis: SCDs Problems: Subjective 24 Hr Interval Summary Constitutional: no complaints Exam/Review of Systems Vital Signs Vitals Vital Signs Date Time Temp Pulse Resp B/P Pulse Ox O2 Delivery O2 Flow Rate FiO2 05/22/17 15:54 98.3 65 20 165/85 96 05/21/17 16:28 Room Air 05/18/17 20:59 2 Intake and Output 05/21/17 05/21/17 05/22/17 15:00 23:00 07:00 Intake Total 840 ml 800 ml Output Total 950 ml 500 ml Balance -110 ml 300 ml Exam Constitutional: alert Respiratory: clear to auscultation Cardiovascular: regular rate and rhythm Gastrointestinal: soft, No distended Musculoskeletal: nl extremities to inspection Results Result Diagram: 05/21/17 0606 05/22/17 0620 Results 24 hrs Laboratory Tests Test 05/21/17 17:05 05/21/17 20:19 05/22/17 04:11 05/22/17 06:20 Bedside Glucose 212 250 H 158 Sodium Level 139 Potassium Level 4.2 Chloride Level 103 Carbon Dioxide Level 28 Anion Gap 12 Blood Urea Nitrogen 36 H Creatinine 2.77 H Glucose Level 163 # Calcium Level 9.2 Phosphorus Level 4.4 Magnesium Level 2.2 Test 05/22/17 08:22 05/22/17 11:59 Bedside Glucose 177 221 H Medications Medications Current Medications Ondansetron HCl (Zofran Inj) 4 mg Q6H PRN IV NAUSEA AND/OR VOMITING; Start 08/25 at 05:00 Acetaminophen (Tylenol Tab) 650 mg Q6H PRN PO PAIN LEVEL 1-3 OR FEVER; Start at 05:00 Famotidine (Pepcid) 20 mg DAILY PO Last administered on 05/22/17 08:31; Admin Dose 20 MG; Start 05/19/17 at 09:00 Diagnostic Test (Pha) (Accu-Chek) 1 ea 02 XX ; Start 05/20/17 at 02:00 Miscellaneous Information 1 ea NOTE XX ; Start 05/19/17 at 05:00 Glucose (Glutose) 15 gm Q15M PRN PO DECREASED GLUCOSE; Start 05/19/17 at 05:00 Glucose (Glutose) 22.5 gm Q15M PRN PO DECREASED GLUCOSE; Start 05/19/17 at 05: 00 Dextrose (D50w Syringe) 25 ml Q15M PRN IV DECREASED GLUCOSE; Start 05/19/17 at 05:00 Dextrose (D50w Syringe) 50 ml Q15M PRN IV DECREASED GLUCOSE; Start 05/19/17 at 05:00 Glucagon (Glucagen) 1 mg Q15M PRN IM DECREASED GLUCOSE; Start 05/19/17 at 05:00 Glucose (Glutose) 15 gm Q15M PRN BUCCAL DECREASED GLUCOSE; Start 05/19/17 at 05 :00 Atorvastatin Calcium (Lipitor) 80 mg HS PO Last administered on 05/21/17 20:20 ; Admin Dose 80 MG; Start 05/19/17 at 21:00 Aspirin (Aspirin) 81 mg DAILY PO Last administered on 05/22/17 08:30; Admin Dose 81 MG; Start 05/20/17 at 11:30 Clopidogrel Bisulfate (plaVIX) 75 mg DAILY PO Last administered on 05/22/17 08 :30; Admin Dose 75 MG; Start 05/20/17 at 12:30 Levetiracetam (Keppra) 500 mg BID PO Last administered on 05/22/17 08:30; Admin Dose 500 MG; Start 05/21/17 at 13:30 Tamsulosin HCl (Flomax) 0.4 mg HS PO Last administered on 05/21/17 20:20; Admin Dose 0.4 MG; Start 05/21/17 at 15:00 Nifedipine (Procardia Xl) 30 mg DAILY PO Last administered on 05/22/17 08:31; Admin Dose 30 MG; Start 05/22/17 at 09:00 Insulin Glargine (Lantus) 20 unit HS SC Last administered on 05/21/17 20:26; Admin Dose 20 UNIT; Start 05/21/17 at 21:00 ZHANG YOUNG May 22, 2017 16:18
[2017-05-22] MEDS: LOSARTAN 25 MG TAB PO SCH (16:45)
[2017-05-22] MEDS: ATORVASTATIN 80 MG TAB PO SCH (21:12)
[2017-05-22] MEDS: TAMSULOSIN (SR) 0.4 MG CAP PO SCH (21:12)
[2017-05-22] MEDS: INSULIN GLARGINE [LANtus] 3 ML PEN SC SCH (21:17)
[2017-05-23] VITALS (11 sets, daily range): BP systolic 127–151; BP diastolic 72–89; PULSE 58–74; RESP 17–20
[2017-05-23] MEDS: ACCU-CHEK XX SCH (02:00)
--- NOTE | 2017-05-23 06:22 | NEURPT ---
DATE: 05/22/2017 HISTORY: The patient is a 56-year-old male who had a rapid response. The patient has a pacemaker, history of hypertension, diabetes, stroke. The patient is on Plavix and aspirin. EXAMINATION: The patient is 56 years old with multiple medical problems in the form of a lacunar infarction with the patient on Plavix and aspirin. The patient was said to have underlying seizure activity. On exam today, the patient is awake, alert, and oriented. Heart with regular rate and rhythm. Lungs with equal breath sounds. Abdomen soft, flat, nontender. Cranial nerve exam: II: Pupils equal on both sides, reactive to light. III, IV, : Extraocular muscles intact. V: Equal sensation to face. VII: Can make a fist. VIII: Decreased hearing bilaterally. IX, X: Elevated palate. XI: Elevated shoulder shrug. . Motor exam: Decreased right hand tug hand, 4 plus/5. Sensation good for gloves and stockings, light touch and temperature. Coordination: [id number] test intact. ASSESSMENT AND PLAN:: 1. The patient is a 56 year old with underlying lacunar infarction. Continue the patient on Plavix as well as aspirin for stroke prophylaxis. 2. Underlying seizure. Will give the patient Keppra 500 mg twice a day. 3. Weakness. The patient might follow up with acute rehab. 4. History of hypertension. Keep the blood pressure 140/90 to avoid extension of the stroke. 5. History of diabetes. Keep the patient on Accu-Chek as well as sliding scale insulin. 6. History of deep vein thrombosis. 7. Again, Thank you for asking me to see the patient with you. Dictated By: Jordan Hooper MD /trini/jovan /Document#: [id number]
[2017-05-23 07:32] LABS: CALCIUM 8.8 mg/dl (8.4-10.2); CREATININE 2.45 mg/dl (0.61-1.24); MAGNESIUM 2.1 mg/dl (1.7-2.5); PHOSPHORUS 4.2 mg/dl (2.5-4.9); POTASSIUM 4.4 mmol/L (3.5-5.1)
[2017-05-23] MEDS: INSULIN ASPART [NOVOLOG] 3 ML PEN SC SCH ×4 (07:55→20:36)
[2017-05-23] MEDS: FAMOTIDINE 20 MG TAB PO SCH (08:14)
[2017-05-23] MEDS: CLOPIDOGREL 75 MG TAB PO SCH (08:15)
[2017-05-23] MEDS: ASPIRIN 81 MG TAB PO SCH (08:15)
[2017-05-23] MEDS: LOSARTAN 25 MG TAB PO SCH (08:15)
[2017-05-23] MEDS: LEVETIRACETAM 500 MG TAB PO SCH ×2 (08:15→20:31)
[2017-05-23] MEDS: NIFEdipine (XL) 30 MG TAB PO SCH (08:15)
--- NOTE | 2017-05-23 10:29 | PN ---
Date/Time of Note Date/Time of Note DATE: 05/23/17 TIME: 10:26 Assessment/Plan VTE Prophylaxis VTE Prophylaxis Intervention: other Lines/Catheters IV [facility] Type [facility]from [facility] Saline Lock Urinary Cath still in place: Yes Reason Cath still needed: urinary retention Assessment/Plan Assessment/Plan ASSESSMENT AND PLAN: 1. Nonoliguric acute kidney injury on top of chronic kidney disease stage IIIB. Etiology of acute kidney injury secondary to hemodynamics. Renal function is fluctuating. At this point will continue current treatment. Supportive care. Renally dose all meds. 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 OK to use low dose ARB for now 2. Chronic kidney disease likely from diabetic nephropathy. 3. Orthostatic hypotension. Etiology may be secondary to volume depletion versus neurogenic from recent cerebrovascular accident. Will monitor closely. Consider gentle fluid challenge. 4. Mineral bone disorder. Monitor calcium and phosphorus levels. 5. Acute cerebrovascular accident. Continue medical management. 6. Coronary disease. Continue current treatment plan. 7. Gastrointestinal and deep venous thrombosis prophylaxis. Subjective 24 Hr Interval Summary Free Text/Dictation renal follow up SUBJECTIVE DATA: No nausea, vomiting, chest pain, dypsnea. has good uop. No hemoptysis, hematemesis, hematochezia. d/w Dr Bah arf is improving OBJECTIVE DATA: HEENT: Head is normocephalic. NECK: Supple. HEART: Regular rate. LUNGS: Diminished breath sounds at the base. ABDOMEN: Soft, nontender to palpation. No rebound or guarding. EXTREMITIES: Negative for clubbing, cyanosis, no edema. DERMATOLOGIC: Clean. No rashes. MUSCULOSKELETAL: No joint effusion. NEUROLOGIC: No change in exam. MEDICATIONS: Reviewed. Exam/Review of Systems Vital Signs Vitals Vital Signs Date Time Temp Pulse Resp B/P Pulse Ox O2 Delivery O2 Flow Rate FiO2 05/23/17 08:10 58 05/23/17 07:37 98.4 18 127/75 98 05/22/17 20:00 Room Air Intake and Output 05/22/17 05/22/17 05/23/17 15:00 23:00 07:00 Intake Total 1000 ml 300 ml Output Total 1800 ml Balance -800 ml 300 ml Results Result Diagram: 05/21/17 0606 05/23/17 0650 Results 24 hrs Laboratory Tests Test 05/22/17 11:59 05/22/17 17:48 05/22/17 21:15 05/23/17 06:50 Bedside Glucose 221 H 227 H 181 Sodium Level 140 Potassium Level 4.4 Chloride Level 104 Carbon Dioxide Level 24 Anion Gap 16 Blood Urea Nitrogen 36 H Creatinine 2.45 H Glucose Level 107 # Calcium Level 8.8 Phosphorus Level 4.2 Magnesium Level 2.1 Test 05/23/17 08:13 Bedside Glucose 118 Medications Medications Current Medications Ondansetron HCl (Zofran Inj) 4 mg Q6H PRN IV NAUSEA AND/OR VOMITING; Start 08/25 at 05:00 Acetaminophen (Tylenol Tab) 650 mg Q6H PRN PO PAIN LEVEL 1-3 OR FEVER; Start at 05:00 Famotidine (Pepcid) 20 mg DAILY PO Last administered on 05/23/17 08:14; Admin Dose 20 MG; Start 05/19/17 at 09:00 Diagnostic Test (Pha) (Accu-Chek) 1 ea 02 XX ; Start 05/20/17 at 02:00 Miscellaneous Information 1 ea NOTE XX ; Start 05/19/17 at 05:00 Glucose (Glutose) 15 gm Q15M PRN PO DECREASED GLUCOSE; Start 05/19/17 at 05:00 Glucose (Glutose) 22.5 gm Q15M PRN PO DECREASED GLUCOSE; Start 05/19/17 at 05: 00 Dextrose (D50w Syringe) 25 ml Q15M PRN IV DECREASED GLUCOSE; Start 05/19/17 at 05:00 Dextrose (D50w Syringe) 50 ml Q15M PRN IV DECREASED GLUCOSE; Start 05/19/17 at 05:00 Glucagon (Glucagen) 1 mg Q15M PRN IM DECREASED GLUCOSE; Start 05/19/17 at 05:00 Glucose (Glutose) 15 gm Q15M PRN BUCCAL DECREASED GLUCOSE; Start 05/19/17 at 05 :00 Atorvastatin Calcium (Lipitor) 80 mg HS PO Last administered on 05/22/17 21:12 ; Admin Dose 80 MG; Start 05/19/17 at 21:00 Aspirin (Aspirin) 81 mg DAILY PO Last administered on 05/23/17 08:15; Admin Dose 81 MG; Start 05/20/17 at 11:30 Clopidogrel Bisulfate (plaVIX) 75 mg DAILY PO Last administered on 05/23/17 08 :15; Admin Dose 75 MG; Start 05/20/17 at 12:30 Levetiracetam (Keppra) 500 mg BID PO Last administered on 05/23/17 08:15; Admin Dose 500 MG; Start 05/21/17 at 13:30 Tamsulosin HCl (Flomax) 0.4 mg HS PO Last administered on 05/22/17 21:12; Admin Dose 0.4 MG; Start 05/21/17 at 15:00 Nifedipine (Procardia Xl) 30 mg DAILY PO Last administered on 05/23/17 08:15; Admin Dose 30 MG; Start 05/22/17 at 09:00 Insulin Glargine (Lantus) 20 unit HS SC Last administered on 05/22/17 21:17; Admin Dose 20 UNIT; Start 05/21/17 at 21:00 Losartan Potassium (Cozaar) 25 mg DAILY PO Last administered on 05/23/17 08:15 ; Admin Dose 25 MG; Start 05/22/17 at 16:30 NUVIA CIFUENTES DO May 23, 2017 10:29
--- NOTE | 2017-05-23 16:09 | PN ---
Date/Time of Note Date/Time of Note DATE: 05/23/17 TIME: 16:07 Assessment/Plan VTE Prophylaxis VTE Prophylaxis Intervention: SCD's Lines/Catheters IV Catheter Type (from Nrs): Saline Lock Assessment/Plan Chief Complaint/Hosp Course 56 yo male with h/o CAD, DMII, CKD, BPH who presented with complaint of dizziness and slurred speech. He has marked systolic hypertension but severe orthostatic symptoms. MRI showing acute pontine stroke, unclear how this relates to his symptoms. BPH causing urinary retention. Dizziness consistent with orthostatic hypotension - 2/2 autonomic neuropathy from DMII as well as antihypertensives - Difficult to manage this given his systolic hypertension with orthostasis. Continue nifedipine 30 alone and hold his beta belinda, diltiazem, losartan and diuretics. We will likely have to tolerate a degree of hypertension to avoid falls and symptomatic orthostasis -PT evaluation, okay for PT to work with patient if SBP less than 170, his blood pressure is labile Pontine stroke: - EEG, management per neurology consult - Unclear how to correlate this to patient's symptoms - Likely related to DMII and hypertension - Continue antiplatelets, aspirin/plavix and statin CKD III: - Stable, likely chronic Hypertension: - As above CAD: - Continue aspirin, plavix, and statin Hyperlipidemia: - Dietary control counseled, continue statin DMII: - Uncontrolled with A1C > 10 - Will need to increase lantus as outpatient BPH: - Winters placed for acute urinary retention - Continue tamsulosin Prophylaxis: SCDs Problems: Subjective 24 Hr Interval Summary Constitutional: no complaints Exam/Review of Systems Vital Signs Vitals Vital Signs Date Time Temp Pulse Resp B/P Pulse Ox O2 Delivery O2 Flow Rate FiO2 05/23/17 15:06 98.2 67 18 151/89 97 05/22/17 20:00 Room Air Intake and Output 05/22/17 05/22/17 05/23/17 15:00 23:00 07:00 Intake Total 1000 ml 300 ml Output Total 1800 ml Balance -800 ml 300 ml Exam Constitutional: alert Respiratory: clear to auscultation Cardiovascular: regular rate and rhythm Gastrointestinal: soft, No distended Musculoskeletal: nl extremities to inspection Results Result Diagram: 05/21/17 0606 05/23/17 0650 Results 24 hrs Laboratory Tests Test 05/22/17 17:48 05/22/17 21:15 05/23/17 06:50 05/23/17 08:13 Bedside Glucose 227 H 181 118 Sodium Level 140 Potassium Level 4.4 Chloride Level 104 Carbon Dioxide Level 24 Anion Gap 16 Blood Urea Nitrogen 36 H Creatinine 2.45 H Glucose Level 107 # Calcium Level 8.8 Phosphorus Level 4.2 Magnesium Level 2.1 Test 05/23/17 12:20 Bedside Glucose 162 Medications Medications Current Medications Ondansetron HCl (Zofran Inj) 4 mg Q6H PRN IV NAUSEA AND/OR VOMITING; Start 08/25 at 05:00 Acetaminophen (Tylenol Tab) 650 mg Q6H PRN PO PAIN LEVEL 1-3 OR FEVER; Start at 05:00 Famotidine (Pepcid) 20 mg DAILY PO Last administered on 05/23/17 08:14; Admin Dose 20 MG; Start 05/19/17 at 09:00 Diagnostic Test (Pha) (Accu-Chek) 1 ea 02 XX ; Start 05/20/17 at 02:00 Miscellaneous Information 1 ea NOTE XX ; Start 05/19/17 at 05:00 Glucose (Glutose) 15 gm Q15M PRN PO DECREASED GLUCOSE; Start 05/19/17 at 05:00 Glucose (Glutose) 22.5 gm Q15M PRN PO DECREASED GLUCOSE; Start 05/19/17 at 05: 00 Dextrose (D50w Syringe) 25 ml Q15M PRN IV DECREASED GLUCOSE; Start 05/19/17 at 05:00 Dextrose (D50w Syringe) 50 ml Q15M PRN IV DECREASED GLUCOSE; Start 05/19/17 at 05:00 Glucagon (Glucagen) 1 mg Q15M PRN IM DECREASED GLUCOSE; Start 05/19/17 at 05:00 Glucose (Glutose) 15 gm Q15M PRN BUCCAL DECREASED GLUCOSE; Start 05/19/17 at 05 :00 Atorvastatin Calcium (Lipitor) 80 mg HS PO Last administered on 05/22/17 21:12 ; Admin Dose 80 MG; Start 05/19/17 at 21:00 Aspirin (Aspirin) 81 mg DAILY PO Last administered on 05/23/17 08:15; Admin Dose 81 MG; Start 05/20/17 at 11:30 Clopidogrel Bisulfate (plaVIX) 75 mg DAILY PO Last administered on 05/23/17 08 :15; Admin Dose 75 MG; Start 05/20/17 at 12:30 Levetiracetam (Keppra) 500 mg BID PO Last administered on 05/23/17 08:15; Admin Dose 500 MG; Start 05/21/17 at 13:30 Tamsulosin HCl (Flomax) 0.4 mg HS PO Last administered on 05/22/17 21:12; Admin Dose 0.4 MG; Start 05/21/17 at 15:00 Nifedipine (Procardia Xl) 30 mg DAILY PO Last administered on 05/23/17 08:15; Admin Dose 30 MG; Start 05/22/17 at 09:00 Insulin Glargine (Lantus) 20 unit HS SC Last administered on 05/22/17 21:17; Admin Dose 20 UNIT; Start 05/21/17 at 21:00 Losartan Potassium (Cozaar) 25 mg DAILY PO Last administered on 05/23/17 08:15 ; Admin Dose 25 MG; Start 05/22/17 at 16:30 ZHANG YOUNG May 23, 2017 16:09
[2017-05-23] MEDS: ATORVASTATIN 80 MG TAB PO SCH (20:31)
[2017-05-23] MEDS: TAMSULOSIN (SR) 0.4 MG CAP PO SCH (20:31)
[2017-05-23] MEDS: INSULIN GLARGINE [LANtus] 3 ML PEN SC SCH (20:38)
[2017-05-24] VITALS (11 sets, daily range): BP systolic 117–187; BP diastolic 72–86; PULSE 71–81; RESP 17–20
[2017-05-24] MEDS: ACCU-CHEK XX SCH (01:32)
[2017-05-24] MEDS: INSULIN ASPART [NOVOLOG] 3 ML PEN SC SCH ×4 (07:55→21:04)
[2017-05-24 08:21] LABS: CALCIUM 9.1 mg/dl (8.4-10.2); CREATININE 2.37 mg/dl (0.61-1.24); POTASSIUM 4.4 mmol/L (3.5-5.1)
[2017-05-24] MEDS: FAMOTIDINE 20 MG TAB PO SCH (08:34)
[2017-05-24] MEDS: LEVETIRACETAM 500 MG TAB PO SCH ×2 (08:34→20:59)
[2017-05-24] MEDS: ASPIRIN 81 MG TAB PO SCH (08:34)
[2017-05-24] MEDS: CLOPIDOGREL 75 MG TAB PO SCH (08:34)
[2017-05-24] MEDS: LOSARTAN 25 MG TAB PO SCH (08:35)
--- NOTE | 2017-05-24 10:15 | PN ---
Date/Time of Note Date/Time of Note DATE: 05/24/17 TIME: 10:13 Assessment/Plan VTE Prophylaxis VTE Prophylaxis Intervention: other Lines/Catheters IV [facility] Type (from [facility]): Saline Lock Assessment/Plan Chief Complaint/Hosp Course 1. Nonoliguric acute kidney injury on top of chronic kidney disease stage IIIB. Etiology of acute kidney injury secondary to hemodynamics. Renal function is improving slowly. At this point will continue current treatment. Supportive care. Renally dose all meds. 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 OK to use low dose ARB for now 2. Chronic kidney disease likely from diabetic nephropathy. 3. Orthostatic hypotension. Etiology may be secondary to volume depletion versus neurogenic from recent cerebrovascular accident. Will monitor closely. Consider gentle fluid challenge. 4. Mineral bone disorder. Monitor calcium and phosphorus levels. 5. Acute cerebrovascular accident. Continue medical management. 6. Coronary disease. Continue current treatment plan. 7. Gastrointestinal and deep venous thrombosis prophylaxis. renal follow up SUBJECTIVE DATA: No nausea, vomiting, chest pain, dypsnea. has good uop. No hemoptysis, hematemesis, hematochezia. d/w Dr Bah arf is improving good uop since linares was removed OBJECTIVE DATA: HEENT: Head is normocephalic. NECK: Supple. HEART: Regular rate. LUNGS: Diminished breath sounds at the base. ABDOMEN: Soft, nontender to palpation. No rebound or guarding. EXTREMITIES: Negative for clubbing, cyanosis, no edema. DERMATOLOGIC: Clean. No rashes. MUSCULOSKELETAL: No joint effusion. NEUROLOGIC: No change in exam. MEDICATIONS: Reviewed. Problems: Exam/Review of Systems Vital Signs Vitals Vital Signs Date Time Temp Pulse Resp B/P Pulse Ox O2 Delivery O2 Flow Rate FiO2 05/24/17 08:12 79 05/24/17 07:47 98.5 17 119/74 99 05/22/17 20:00 Room Air Intake and Output 05/23/17 05/23/17 05/24/17 15:00 23:00 07:00 Intake Total 720 ml 800 ml Output Total 2500 ml 2000 ml Balance -1780 ml -1200 ml Results Result Diagram: 05/21/17 0606 05/24/17 0639 Results 24 hrs Laboratory Tests Test 05/23/17 12:20 05/23/17 17:11 05/23/17 20:35 05/24/17 06:39 Bedside Glucose 162 138 152 Sodium Level 141 Potassium Level 4.4 Chloride Level 103 Carbon Dioxide Level 28 Anion Gap 14 Blood Urea Nitrogen 34 H Creatinine 2.37 H Glucose Level 184 Calcium Level 9.1 Medications Medications Current Medications Ondansetron HCl (Zofran Inj) 4 mg Q6H PRN IV NAUSEA AND/OR VOMITING; Start 08/25 at 05:00 Acetaminophen (Tylenol Tab) 650 mg Q6H PRN PO PAIN LEVEL 1-3 OR FEVER; Start at 05:00 Famotidine (Pepcid) 20 mg DAILY PO Last administered on 05/24/17 08:34; Admin Dose 20 MG; Start 05/19/17 at 09:00 Diagnostic Test (Pha) (Accu-Chek) 1 ea 02 XX ; Start 05/20/17 at 02:00 Miscellaneous Information 1 ea NOTE XX ; Start 05/19/17 at 05:00 Glucose (Glutose) 15 gm Q15M PRN PO DECREASED GLUCOSE; Start 05/19/17 at 05:00 Glucose (Glutose) 22.5 gm Q15M PRN PO DECREASED GLUCOSE; Start 05/19/17 at 05: 00 Dextrose (D50w Syringe) 25 ml Q15M PRN IV DECREASED GLUCOSE; Start 05/19/17 at 05:00 Dextrose (D50w Syringe) 50 ml Q15M PRN IV DECREASED GLUCOSE; Start 05/19/17 at 05:00 Glucagon (Glucagen) 1 mg Q15M PRN IM DECREASED GLUCOSE; Start 05/19/17 at 05:00 Glucose (Glutose) 15 gm Q15M PRN BUCCAL DECREASED GLUCOSE; Start 05/19/17 at 05 :00 Atorvastatin Calcium (Lipitor) 80 mg HS PO Last administered on 05/23/17 20:31 ; Admin Dose 80 MG; Start 05/19/17 at 21:00 Aspirin (Aspirin) 81 mg DAILY PO Last administered on 05/24/17 08:34; Admin Dose 81 MG; Start 05/20/17 at 11:30 Clopidogrel Bisulfate (plaVIX) 75 mg DAILY PO Last administered on 05/24/17 08 :34; Admin Dose 75 MG; Start 05/20/17 at 12:30 Levetiracetam (Keppra) 500 mg BID PO Last administered on 05/24/17 08:34; Admin Dose 500 MG; Start 05/21/17 at 13:30 Tamsulosin HCl (Flomax) 0.4 mg HS PO Last administered on 05/23/17 20:31; Admin Dose 0.4 MG; Start 05/21/17 at 15:00 Insulin Glargine (Lantus) 20 unit HS SC Last administered on 05/23/17 20:38; Admin Dose 20 UNIT; Start 05/21/17 at 21:00 Losartan Potassium (Cozaar) 25 mg DAILY PO Last administered on 05/24/17 08:35 ; Admin Dose 25 MG; Start 05/22/17 at 16:30 Hydralazine HCl (Apresoline) 10 mg Q8 PO Last administered on 05/24/17 06:24; Admin Dose 10 MG; Start 05/24/17 at 01:00 Hydralazine HCl (Apresoline) 10 mg Q4H PRN IV Hypertension; Start 05/24/17 at 01:00 NUVIA CIFUENTES DO May 24, 2017 10:15
[2017-05-24] MEDS ORDERED: VITAMIN A & D 5 GM OINT PACKET TOP ONE (17:45)
--- NOTE | 2017-05-24 18:51 | PN ---
Date/Time of Note Date/Time of Note DATE: 05/24/17 TIME: 18:45 Assessment/Plan VTE Prophylaxis VTE Prophylaxis Intervention: SCD's Lines/Catheters IV [facility] Type (from [facility] Saline Lock Urinary Cath still in place: No Assessment/Plan Chief Complaint/Hosp Course 56 yo male with h/o CAD, DMII, CKD, BPH who presented with complaint of dizziness and slurred speech. He has marked systolic hypertension but severe orthostatic symptoms. MRI showing acute pontine stroke, unclear how this relates to his symptoms. BPH causing urinary retention. Dizziness likely secondary to pontine infarct -PT evaluation, okay for PT to work with patient if SBP less than 170, his blood pressure is labile Acute left-sided weakness secondary to right-sided pontine lacunar stroke: -Secondary to hypertension - Continue antiplatelets, aspirin/plavix and statin -PT eval appreciated, will place an acute rehab evaluation CKD III: - Stable, likely chronic Hypertension: Labile -Now stable with only losartan CAD: - Continue aspirin, plavix, and statin Hyperlipidemia: - Dietary control counseled, continue statin DMII: - Uncontrolled with A1C > 10 - Will need to increase lantus as outpatient BPH: - Winters placed for acute urinary retention - Continue tamsulosin Prophylaxis: SCDs Problems: Subjective 24 Hr Interval Summary Neurologic: focal-weakness (Left-sided weakness) Exam/Review of Systems Vital Signs Vitals Vital Signs Date Time Temp Pulse Resp B/P Pulse Ox O2 Delivery O2 Flow Rate FiO2 05/24/17 16:08 74 05/24/17 15:26 98.7 20 144/86 97 05/22/17 20:00 Room Air Intake and Output 05/23/17 05/23/17 05/24/17 15:00 23:00 07:00 Intake Total 720 ml 800 ml Output Total 2500 ml 2000 ml Balance -1780 ml -1200 ml Exam Constitutional: alert Respiratory: clear to auscultation Cardiovascular: regular rate and rhythm Gastrointestinal: soft, No distended Musculoskeletal: nl extremities to inspection Neurological: focal weakness (Left side) Results Result Diagram: 05/21/17 0606 05/24/17 0639 Results 24 hrs Laboratory Tests Test 05/23/17 20:35 05/24/17 06:39 05/24/17 17:39 Bedside Glucose 152 222 H Sodium Level 141 Potassium Level 4.4 Chloride Level 103 Carbon Dioxide Level 28 Anion Gap 14 Blood Urea Nitrogen 34 H Creatinine 2.37 H Glucose Level 184 Calcium Level 9.1 Medications Medications Current Medications Ondansetron HCl (Zofran Inj) 4 mg Q6H PRN IV NAUSEA AND/OR VOMITING; Start 08/25 at 05:00 Acetaminophen (Tylenol Tab) 650 mg Q6H PRN PO PAIN LEVEL 1-3 OR FEVER; Start at 05:00 Famotidine (Pepcid) 20 mg DAILY PO Last administered on 05/24/17 08:34; Admin Dose 20 MG; Start 05/19/17 at 09:00 Diagnostic Test (Pha) (Accu-Chek) 1 ea 02 XX ; Start 05/20/17 at 02:00 Miscellaneous Information 1 ea NOTE XX ; Start 05/19/17 at 05:00 Glucose (Glutose) 15 gm Q15M PRN PO DECREASED GLUCOSE; Start 05/19/17 at 05:00 Glucose (Glutose) 22.5 gm Q15M PRN PO DECREASED GLUCOSE; Start 05/19/17 at 05: 00 Dextrose (D50w Syringe) 25 ml Q15M PRN IV DECREASED GLUCOSE; Start 05/19/17 at 05:00 Dextrose (D50w Syringe) 50 ml Q15M PRN IV DECREASED GLUCOSE; Start 05/19/17 at 05:00 Glucagon (Glucagen) 1 mg Q15M PRN IM DECREASED GLUCOSE; Start 05/19/17 at 05:00 Glucose (Glutose) 15 gm Q15M PRN BUCCAL DECREASED GLUCOSE; Start 05/19/17 at 05 :00 Atorvastatin Calcium (Lipitor) 80 mg HS PO Last administered on 05/23/17 20:31 ; Admin Dose 80 MG; Start 05/19/17 at 21:00 Aspirin (Aspirin) 81 mg DAILY PO Last administered on 05/24/17 08:34; Admin Dose 81 MG; Start 05/20/17 at 11:30 Clopidogrel Bisulfate (plaVIX) 75 mg DAILY PO Last administered on 05/24/17 08 :34; Admin Dose 75 MG; Start 05/20/17 at 12:30 Levetiracetam (Keppra) 500 mg BID PO Last administered on 05/24/17 08:34; Admin Dose 500 MG; Start 05/21/17 at 13:30 Tamsulosin HCl (Flomax) 0.4 mg HS PO Last administered on 05/23/17 20:31; Admin Dose 0.4 MG; Start 05/21/17 at 15:00 Insulin Glargine (Lantus) 20 unit HS SC Last administered on 05/23/17 20:38; Admin Dose 20 UNIT; Start 05/21/17 at 21:00 Losartan Potassium (Cozaar) 25 mg DAILY PO Last administered on 05/24/17 08:35 ; Admin Dose 25 MG; Start 05/22/17 at 16:30 Hydralazine HCl (Apresoline) 10 mg Q8 PO Last administered on 05/24/17 14:00; Admin Dose 10 MG; Start 05/24/17 at 01:00 Hydralazine HCl (Apresoline) 10 mg Q4H PRN IV Hypertension; Start 05/24/17 at 01:00 Lorazepam (Ativan) 0.5 mg HS PRN PO ANXIETY; Start 05/24/17 at 16:30 ZHANG YOUNG May 24, 2017 18:51
[2017-05-24] MEDS: TAMSULOSIN (SR) 0.4 MG CAP PO SCH (20:58)
[2017-05-24] MEDS: ATORVASTATIN 80 MG TAB PO SCH (20:58)
[2017-05-24] MEDS: LORAZEPAM 0.5 MG TAB PO PRN (20:59)
[2017-05-24] MEDS: INSULIN GLARGINE [LANtus] 3 ML PEN SC SCH (21:03)
[2017-05-24] MEDS: hydrALAzine 20 MG INJ IV PRN (22:48)
[2017-05-25] VITALS (13 sets, daily range): BP systolic 119–163; BP diastolic 62–97; PULSE 60–93; RESP 20
[2017-05-25] MEDS: ACCU-CHEK XX SCH (02:00)
[2017-05-25] MEDS: INSULIN ASPART [NOVOLOG] 3 ML PEN SC SCH ×4 (07:55→21:07)
[2017-05-25 07:57] LABS: CREATININE 2.33 mg/dl (0.61-1.24); POTASSIUM 4.1 mmol/L (3.5-5.1)
[2017-05-25] MEDS: CLOPIDOGREL 75 MG TAB PO SCH (09:45)
[2017-05-25] MEDS: LOSARTAN 25 MG TAB PO SCH (09:46)
[2017-05-25] MEDS: ASPIRIN 81 MG TAB PO SCH (09:46)
[2017-05-25] MEDS: FAMOTIDINE 20 MG TAB PO SCH (09:46)
[2017-05-25] MEDS: LEVETIRACETAM 500 MG TAB PO SCH ×2 (09:46→21:01)
--- NOTE | 2017-05-25 10:21 | PN ---
Date/Time of Note Date/Time of Note DATE: 05/25/17 TIME: 10:20 Assessment/Plan VTE Prophylaxis VTE Prophylaxis Intervention: other Lines/Catheters IV Catheter Type (from [facility]): Saline Lock Urinary Cath still in place: No Assessment/Plan Chief Complaint/Hosp Course 1. Nonoliguric acute kidney injury on top of chronic kidney disease stage IIIB. Etiology of acute kidney injury secondary to hemodynamics. Renal function is improving slowly. At this point will continue current treatment. Supportive care. Renally dose all meds. 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 OK to use low dose ARB for now. will up titrate as outpatient 2. Chronic kidney disease likely from diabetic nephropathy. 3. Orthostatic hypotension. Etiology may be secondary to volume depletion versus neurogenic from recent cerebrovascular accident. Will monitor closely. Consider gentle fluid challenge. 4. Mineral bone disorder. Monitor calcium and phosphorus levels. 5. Acute cerebrovascular accident. Continue medical management. 6. Coronary disease. Continue current treatment plan. 7. Gastrointestinal and deep venous thrombosis prophylaxis. renal follow up SUBJECTIVE DATA: No nausea, vomiting, chest pain, dypsnea. has good uop. No hemoptysis, hematemesis, hematochezia. d/w Dr Bah arf is improving good uop since linares was removed OBJECTIVE DATA: HEENT: Head is normocephalic. NECK: Supple. HEART: Regular rate. LUNGS: Diminished breath sounds at the base. ABDOMEN: Soft, nontender to palpation. No rebound or guarding. EXTREMITIES: Negative for clubbing, cyanosis, no edema. DERMATOLOGIC: Clean. No rashes. MUSCULOSKELETAL: No joint effusion. NEUROLOGIC: No change in exam. MEDICATIONS: Reviewed. Problems: Exam/Review of Systems Vital Signs Vitals Vital Signs Date Time Temp Pulse Resp B/P Pulse Ox O2 Delivery O2 Flow Rate FiO2 05/25/17 08:00 60 05/25/17 07:46 98.3 20 133/72 97 05/22/17 20:00 Room Air Intake and Output 05/24/17 05/24/17 05/25/17 15:00 23:00 07:00 Intake Total 840 ml 400 ml Output Total 1000 ml Balance -160 ml 400 ml Results Result Diagram: 05/21/17 0606 05/25/17 0645 Results 24 hrs Laboratory Tests Test 05/24/17 17:39 05/24/17 20:57 05/25/17 03:54 05/25/17 06:45 Bedside Glucose 222 H 221 H 129 Sodium Level 142 Potassium Level 4.1 Chloride Level 105 Carbon Dioxide Level 26 Anion Gap 15 Blood Urea Nitrogen 37 H Creatinine 2.33 H Glucose Level 132 # Calcium Level 9.0 Test 05/25/17 08:30 Bedside Glucose 139 Medications Medications Current Medications Ondansetron HCl (Zofran Inj) 4 mg Q6H PRN IV NAUSEA AND/OR VOMITING; Start 08/25 at 05:00 Acetaminophen (Tylenol Tab) 650 mg Q6H PRN PO PAIN LEVEL 1-3 OR FEVER; Start at 05:00 Famotidine (Pepcid) 20 mg DAILY PO Last administered on 05/25/17 09:46; Admin Dose 20 MG; Start 05/19/17 at 09:00 Diagnostic Test (Pha) (Accu-Chek) 1 ea 02 XX Last administered on 05/25/17 02: 00; Admin Dose 1 EA; Start 05/20/17 at 02:00 Miscellaneous Information 1 ea NOTE XX ; Start 05/19/17 at 05:00 Glucose (Glutose) 15 gm Q15M PRN PO DECREASED GLUCOSE; Start 05/19/17 at 05:00 Glucose (Glutose) 22.5 gm Q15M PRN PO DECREASED GLUCOSE; Start 05/19/17 at 05: 00 Dextrose (D50w Syringe) 25 ml Q15M PRN IV DECREASED GLUCOSE; Start 05/19/17 at 05:00 Dextrose (D50w Syringe) 50 ml Q15M PRN IV DECREASED GLUCOSE; Start 05/19/17 at 05:00 Glucagon (Glucagen) 1 mg Q15M PRN IM DECREASED GLUCOSE; Start 05/19/17 at 05:00 Glucose (Glutose) 15 gm Q15M PRN BUCCAL DECREASED GLUCOSE; Start 05/19/17 at 05 :00 Atorvastatin Calcium (Lipitor) 80 mg HS PO Last administered on 05/24/17 20:58 ; Admin Dose 80 MG; Start 05/19/17 at 21:00 Aspirin (Aspirin) 81 mg DAILY PO Last administered on 05/25/17 09:46; Admin Dose 81 MG; Start 05/20/17 at 11:30 Clopidogrel Bisulfate (plaVIX) 75 mg DAILY PO Last administered on 05/25/17 09 :45; Admin Dose 75 MG; Start 05/20/17 at 12:30 Levetiracetam (Keppra) 500 mg BID PO Last administered on 05/25/17 09:46; Admin Dose 500 MG; Start 05/21/17 at 13:30 Tamsulosin HCl (Flomax) 0.4 mg HS PO Last administered on 05/24/17 20:58; Admin Dose 0.4 MG; Start 05/21/17 at 15:00 Insulin Glargine (Lantus) 20 unit HS SC Last administered on 05/24/17 21:03; Admin Dose 20 UNIT; Start 05/21/17 at 21:00 Losartan Potassium (Cozaar) 25 mg DAILY PO Last administered on 05/25/17 09:46 ; Admin Dose 25 MG; Start 05/22/17 at 16:30 Hydralazine HCl (Apresoline) 10 mg Q8 PO Last administered on 05/25/17 06:45; Admin Dose 10 MG; Start 05/24/17 at 01:00 Hydralazine HCl (Apresoline) 10 mg Q4H PRN IV Hypertension Last administered on 05/24/17 22:48; Admin Dose 10 MG; Start 05/24/17 at 01:00 Lorazepam (Ativan) 0.5 mg HS PRN PO ANXIETY Last administered on 05/24/17 20: 59; Admin Dose 0.5 MG; Start 05/24/17 at 16:30 NUVIA CIUFENTES DO May 25, 2017 10:21
--- NOTE | 2017-05-25 14:06 | PN ---
Date/Time of Note Date/Time of Note DATE: 05/25/17 TIME: 14:03 Assessment/Plan VTE Prophylaxis VTE Prophylaxis Intervention: SCD's Lines/Catheters IV Catheter Type (from [facility]): Saline Lock Urinary Cath still in place: No Assessment/Plan Chief Complaint/Hosp Course 56 yo male with h/o CAD, DMII, CKD, BPH who presented with complaint of dizziness and slurred speech. He has marked systolic hypertension but severe orthostatic symptoms. MRI showing acute pontine stroke, unclear how this relates to his symptoms. BPH causing urinary retention. Dizziness likely secondary to pontine infarct-improved -PT evaluation, okay for PT to work with patient if SBP less than 170, his blood pressure is labile Acute left-sided weakness secondary to right-sided pontine lacunar stroke: -Lacunar stroke is secondary to hypertension - Continue antiplatelets, aspirin/plavix and statin -PT eval appreciated, acute rehab evaluation CKD III: - Stable, likely chronic Hypertension: Labile -Now stable with only losartan CAD: - Continue aspirin, plavix, and statin Hyperlipidemia: - Dietary control counseled, continue statin DMII: - Uncontrolled with A1C > 10 - Will need to increase lantus as outpatient BPH: - Winters placed for acute urinary retention - Continue tamsulosin Prophylaxis: SCDs Problems: Subjective 24 Hr Interval Summary Neurologic: focal-weakness (Left-sided weakness) Exam/Review of Systems Vital Signs Vitals Vital Signs Date Time Temp Pulse Resp B/P Pulse Ox O2 Delivery O2 Flow Rate FiO2 05/25/17 12:00 72 05/25/17 11:19 98.5 20 131/78 96 05/22/17 20:00 Room Air Intake and Output 05/24/17 05/24/17 05/25/17 15:00 23:00 07:00 Intake Total 840 ml 400 ml Output Total 1000 ml Balance -160 ml 400 ml Exam Constitutional: alert, oriented Respiratory: clear to auscultation Cardiovascular: regular rate and rhythm Gastrointestinal: soft, No distended Musculoskeletal: nl extremities to inspection Results Result Diagram: 05/21/17 0606 05/25/17 0645 Results 24 hrs Laboratory Tests Test 05/24/17 17:39 05/24/17 20:57 05/25/17 03:54 05/25/17 06:45 Bedside Glucose 222 H 221 H 129 Sodium Level 142 Potassium Level 4.1 Chloride Level 105 Carbon Dioxide Level 26 Anion Gap 15 Blood Urea Nitrogen 37 H Creatinine 2.33 H Glucose Level 132 # Calcium Level 9.0 Test 05/25/17 08:30 05/25/17 12:24 Bedside Glucose 139 157 Medications Medications Current Medications Ondansetron HCl (Zofran Inj) 4 mg Q6H PRN IV NAUSEA AND/OR VOMITING; Start 08/25 at 05:00 Acetaminophen (Tylenol Tab) 650 mg Q6H PRN PO PAIN LEVEL 1-3 OR FEVER; Start at 05:00 Famotidine (Pepcid) 20 mg DAILY PO Last administered on 05/25/17 09:46; Admin Dose 20 MG; Start 05/19/17 at 09:00 Diagnostic Test (Pha) (Accu-Chek) 1 ea 02 XX Last administered on 05/25/17 02: 00; Admin Dose 1 EA; Start 05/20/17 at 02:00 Miscellaneous Information 1 ea NOTE XX ; Start 05/19/17 at 05:00 Glucose (Glutose) 15 gm Q15M PRN PO DECREASED GLUCOSE; Start 05/19/17 at 05:00 Glucose (Glutose) 22.5 gm Q15M PRN PO DECREASED GLUCOSE; Start 05/19/17 at 05: 00 Dextrose (D50w Syringe) 25 ml Q15M PRN IV DECREASED GLUCOSE; Start 05/19/17 at 05:00 Dextrose (D50w Syringe) 50 ml Q15M PRN IV DECREASED GLUCOSE; Start 05/19/17 at 05:00 Glucagon (Glucagen) 1 mg Q15M PRN IM DECREASED GLUCOSE; Start 05/19/17 at 05:00 Glucose (Glutose) 15 gm Q15M PRN BUCCAL DECREASED GLUCOSE; Start 05/19/17 at 05 :00 Atorvastatin Calcium (Lipitor) 80 mg HS PO Last administered on 05/24/17 20:58 ; Admin Dose 80 MG; Start 05/19/17 at 21:00 Aspirin (Aspirin) 81 mg DAILY PO Last administered on 05/25/17 09:46; Admin Dose 81 MG; Start 05/20/17 at 11:30 Clopidogrel Bisulfate (plaVIX) 75 mg DAILY PO Last administered on 05/25/17 09 :45; Admin Dose 75 MG; Start 05/20/17 at 12:30 Levetiracetam (Keppra) 500 mg BID PO Last administered on 05/25/17 09:46; Admin Dose 500 MG; Start 05/21/17 at 13:30 Tamsulosin HCl (Flomax) 0.4 mg HS PO Last administered on 05/24/17 20:58; Admin Dose 0.4 MG; Start 05/21/17 at 15:00 Insulin Glargine (Lantus) 20 unit HS SC Last administered on 05/24/17 21:03; Admin Dose 20 UNIT; Start 05/21/17 at 21:00 Losartan Potassium (Cozaar) 25 mg DAILY PO Last administered on 05/25/17 09:46 ; Admin Dose 25 MG; Start 05/22/17 at 16:30 Hydralazine HCl (Apresoline) 10 mg Q8 PO Last administered on 05/25/17 06:45; Admin Dose 10 MG; Start 05/24/17 at 01:00 Hydralazine HCl (Apresoline) 10 mg Q4H PRN IV Hypertension Last administered on 05/24/17 22:48; Admin Dose 10 MG; Start 05/24/17 at 01:00 Lorazepam (Ativan) 0.5 mg HS PRN PO ANXIETY Last administered on 05/24/17 20: 59; Admin Dose 0.5 MG; Start 05/24/17 at 16:30 ZHANG YOUNG May 25, 2017 14:05
[2017-05-25] MEDS: ATORVASTATIN 80 MG TAB PO SCH (21:01)
[2017-05-25] MEDS: TAMSULOSIN (SR) 0.4 MG CAP PO SCH (21:01)
[2017-05-25] MEDS: INSULIN GLARGINE [LANtus] 3 ML PEN SC SCH (21:06)
[2017-05-26] VITALS (13 sets, daily range): BP systolic 120–183; BP diastolic 68–87; PULSE 59–80; RESP 20
[2017-05-26] MEDS: ACCU-CHEK XX SCH (02:11)
[2017-05-26] MEDS: LORAZEPAM 0.5 MG TAB PO PRN (02:16)
[2017-05-26] MEDS: INSULIN ASPART [NOVOLOG] 3 ML PEN SC SCH ×3 (07:55→17:31)
[2017-05-26] MEDS: ASPIRIN 81 MG TAB PO SCH (08:20)
[2017-05-26] MEDS: FAMOTIDINE 20 MG TAB PO SCH (08:20)
[2017-05-26] MEDS: CLOPIDOGREL 75 MG TAB PO SCH (08:20)
[2017-05-26] MEDS: LOSARTAN 25 MG TAB PO SCH (08:20)
[2017-05-26] MEDS: LEVETIRACETAM 500 MG TAB PO SCH (08:20)
[2017-05-26] MEDS: hydrALAzine 20 MG INJ IV PRN (12:22)
--- NOTE | 2017-05-26 12:42 | PN ---
Date/Time of Note Date/Time of Note DATE: 05/26/17 TIME: 12:42 Assessment/Plan VTE Prophylaxis VTE Prophylaxis Intervention: other Lines/Catheters [facility] Saline Lock Urinary Cath still in place: No Assessment/Plan Chief Complaint/Hosp Course 1. Nonoliguric acute kidney injury on top of chronic kidney disease stage IIIB. Etiology of acute kidney injury secondary to hemodynamics. Renal function is improving slowly. At this point will continue current treatment. Supportive care. Renally dose all meds. 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 OK to use low dose ARB for now. will up titrate as outpatient 2. Chronic kidney disease likely from diabetic nephropathy. 3. Orthostatic hypotension. Etiology may be secondary to volume depletion versus neurogenic from recent cerebrovascular accident. Will monitor closely. Consider gentle fluid challenge. 4. Mineral bone disorder. Monitor calcium and phosphorus levels. 5. Acute cerebrovascular accident. Continue medical management. 6. Coronary disease. Continue current treatment plan. 7. Gastrointestinal and deep venous thrombosis prophylaxis. renal follow up SUBJECTIVE DATA: No nausea, vomiting, chest pain, dypsnea. has good uop. No hemoptysis, hematemesis, hematochezia. d/w Dr Bah arf is improving good uop since linares was removed OBJECTIVE DATA: HEENT: Head is normocephalic. NECK: Supple. HEART: Regular rate. LUNGS: Diminished breath sounds at the base. ABDOMEN: Soft, nontender to palpation. No rebound or guarding. EXTREMITIES: Negative for clubbing, cyanosis, no edema. DERMATOLOGIC: Clean. No rashes. MUSCULOSKELETAL: No joint effusion. NEUROLOGIC: No change in exam. MEDICATIONS: Reviewed. Problems: Exam/Review of Systems Vital Signs Vitals Vital Signs Date Time Temp Pulse Resp B/P Pulse Ox O2 Delivery O2 Flow Rate FiO2 05/26/17 12:07 69 05/26/17 11:05 98.1 20 170/87 97 05/22/17 20:00 Room Air Intake and Output 05/25/17 05/25/17 05/26/17 15:00 23:00 07:00 Intake Total 600 ml 360 ml Output Total 4 ml Balance 596 ml 360 ml Results Result Diagram: 05/25/17 0645 Results 24 hrs Laboratory Tests Test 05/25/17 17:46 05/25/17 20:56 05/26/17 02:11 05/26/17 08:18 Bedside Glucose 173 216 115 104 Test 05/26/17 12:21 Bedside Glucose 166 Medications Medications Current Medications Ondansetron HCl (Zofran Inj) 4 mg Q6H PRN IV NAUSEA AND/OR VOMITING; Start 08/25 at 05:00 Acetaminophen (Tylenol Tab) 650 mg Q6H PRN PO PAIN LEVEL 1-3 OR FEVER; Start at 05:00 Famotidine (Pepcid) 20 mg DAILY PO Last administered on 05/26/17 08:20; Admin Dose 20 MG; Start 05/19/17 at 09:00 Diagnostic Test (Pha) (Accu-Chek) 1 ea 02 XX Last administered on 05/26/17 02: 11; Admin Dose 1 EA; Start 05/20/17 at 02:00 Miscellaneous Information 1 ea NOTE XX ; Start 05/19/17 at 05:00 Glucose (Glutose) 15 gm Q15M PRN PO DECREASED GLUCOSE; Start 05/19/17 at 05:00 Glucose (Glutose) 22.5 gm Q15M PRN PO DECREASED GLUCOSE; Start 05/19/17 at 05: 00 Dextrose (D50w Syringe) 25 ml Q15M PRN IV DECREASED GLUCOSE; Start 05/19/17 at 05:00 Dextrose (D50w Syringe) 50 ml Q15M PRN IV DECREASED GLUCOSE; Start 05/19/17 at 05:00 Glucagon (Glucagen) 1 mg Q15M PRN IM DECREASED GLUCOSE; Start 05/19/17 at 05:00 Glucose (Glutose) 15 gm Q15M PRN BUCCAL DECREASED GLUCOSE; Start 05/19/17 at 05 :00 Atorvastatin Calcium (Lipitor) 80 mg HS PO Last administered on 05/25/17 21:01 ; Admin Dose 80 MG; Start 05/19/17 at 21:00 Aspirin (Aspirin) 81 mg DAILY PO Last administered on 05/26/17 08:20; Admin Dose 81 MG; Start 05/20/17 at 11:30 Clopidogrel Bisulfate (plaVIX) 75 mg DAILY PO Last administered on 05/26/17 08 :20; Admin Dose 75 MG; Start 05/20/17 at 12:30 Levetiracetam (Keppra) 500 mg BID PO Last administered on 05/26/17 08:20; Admin Dose 500 MG; Start 05/21/17 at 13:30 Tamsulosin HCl (Flomax) 0.4 mg HS PO Last administered on 05/25/17 21:01; Admin Dose 0.4 MG; Start 05/21/17 at 15:00 Insulin Glargine (Lantus) 20 unit HS SC Last administered on 05/25/17 21:06; Admin Dose 20 UNIT; Start 05/21/17 at 21:00 Losartan Potassium (Cozaar) 25 mg DAILY PO Last administered on 05/26/17 08:20 ; Admin Dose 25 MG; Start 05/22/17 at 16:30 Hydralazine HCl (Apresoline) 10 mg Q8 PO Last administered on 05/26/17 06:18; Admin Dose 10 MG; Start 05/24/17 at 01:00 Hydralazine HCl (Apresoline) 10 mg Q4H PRN IV Hypertension Last administered on 05/26/17 12:22; Admin Dose 10 MG; Start 05/24/17 at 01:00 Lorazepam (Ativan) 0.5 mg HS PRN PO ANXIETY Last administered on 05/26/17 02: 16; Admin Dose 0.5 MG; Start 05/24/17 at 16:30 NUVIA CIFUENTES DO May 26, 2017 12:42
--- NOTE | 2017-05-27 13:42 | DS ---
Date/Time of Note Date/Time of Note DATE: 05/27/17 TIME: 13:34 Discharge Summary Admission/Discharge Info Admit Date/Time May 19, 2017 at 01:59 Discharge Date/Time May 26, 2017 at 18:40 Discharge Diagnosis 1. Acute left-sided weakness with dizziness secondary to acute right-sided pontine infarct-improved -Continue aspirin Plavix statin -DC to rehab 2. CKD III: - Stable, likely chronic from hypertension diabetes 3. Hypertension: Labile -Unclear if patient has been compliant with home med regimen -Of his home meds have only continued olmesartan as with full regimen BP was too low, initially patient was receiving half his home dose and was adequate but BP has begun to increase and well now recommend to continue full 50 milligram dose in rehab 3. CAD: - Continue aspirin, plavix, and statin 4. Hyperlipidemia: - Dietary control counseled, continue statin 5. DMII: -Continue regimen - Uncontrolled with A1C > 10 - Will need to increase lantus as outpatient 6. BPH: - Winters placed for acute urinary retention - Continue tamsulosin Patient Condition: Fair Hospital Course Patient is a is a 56-year-old male with cardiac disease, hypertension, and diabetes who presents with strokelike symptoms. He had slurred speech and left- sided arm numbness over the past several days prior to admission. Patient's blood pressure was high on arrival is complaining of dizziness. Patient had a brain MRI high that showed an acute right-sided pontine lacunar infarction as well as several other chronic lacunar infarcts. Patient was seen by neurology and was seen by nephrology for his elevated creatinine. Also the patient has CKD likely from diabetes and hypertension. Patient had paralysis of his left side is felt to be appropriate rehab candidate. Of note patient's blood pressure was labile he is continued on his full home regimen his BP was too low , after adjustment of his medications was found that started 25 mg daily was adequate towards the end of his hospitalization his blood pressure began to rise again and is recommended that he continue the full 50 mg home dose while in rehab. Patient was ultimately accepted to acute rehab and on the day of discharge patient's vitals, labs and physical exam are stable. At one-point patient did want to go home and he was advised by the importance of going to rehab, as he still had paralysis on his left side was dangerous to go back home at this time. He had no further acute complaints and questions are answered. Home Meds Active Scripts Ondansetron Hcl* (Zofran*) 4 Mg Tablet, 4 MG PO Q8H Y for NAUSEA AND/OR VOMITING , #10 TAB Prov:LUIRAFAEL 10/18/15 Reported Medications Paroxetine Hcl* (Paroxetine*) 10 Mg Tablet, 10 MG PO DAILY, TAB 05/19/17 Clopidogrel Bisulfate* (Clopidogrel Bisulfate*) 75 Mg Tablet, 75 MG PO DAILY, # 30 TAB 05/19/17 Docusate Sodium* (Docusate Sodium*) 100 Mg Capsule, 100 MG PO BID, #60 CAP 05/19/17 Tramadol Hcl* (Ultram*) 50 Mg Tablet, 50 MG PO Q6H Y for PAIN, TAB 05/19/17 Tamsulosin Hcl* (Tamsulosin Hcl*) 0.4 Mg Cap.er.24h, 0.4 MG PO DAILY, CAP 05/19/17 Ferrous Sulfate* (Ferrous Sulfate*) 325 Mg Tabec, 325 MG PO DAILY, TAB 05/19/17 Potassium Chloride* (Klor-Con*) 20 Meq Tabsr, 20 MEQ PO DAILY, TAB.SA 05/19/17 Ergocalciferol (Vitamin D2) (VITAMIN D2) 50,000 Unit Capsule, 56623 UNIT PO, CAP 05/19/17 Famotidine* (Famotidine*) 40 Mg Tablet, 40 MG PO HS, TAB 10/18/15 Nitroglycerin* (Nitrostat*) 0.4 Mg Tab.subl, 0.4 MG SL Q5MIN Y for CHEST PAIN, BOTTLE 10/18/15 Losartan Potassium* (Losartan Potassium*) 50 Mg Tablet, 50 MG PO DAILY, TAB 10/18/15 Albuterol Sulfate* (Proair HFA*) 8.5 Gm Hfa.aer.ad, 2 PUFF INH Q4H Y for WHEEZING AND SOB, #1 INHALER 10/18/15 Metformin Hcl (Glucophage) 500 Mg Tablet, 1000 MG PO BID, TAB 02/20/14 Tramadol HCl (Tramadol HCl) 50MG Tab, 50 MG PO BID, TAB 02/20/14 Aspirin Ec (Aspir 81) 81 Mg Tablet.dr, 81 MG PO DAILY 02/20/14 Gabapentin* (Gabapentin*) 300 Mg Capsule, 300 MG PO DAILY 4/27/13 Discontinued Reported Medications Sitagliptin* (Januvia*) 50 Mg Tablet, 50 MG PO DAILY, #30 TAB 05/19/17 Diltiazem Hcl* (Cardizem CD*) 240 Mg Cap.sr.24h, 240 MG PO DAILY, #30 CAP 05/19/17 Furosemide* (Furosemide*) 80 Mg Tablet, 80 MG PO DAILY, #30 TAB 05/19/17 Insulin Glulisine (Apidra Solostar) 100 Unit/1 Ml Insuln.pen, 10-15 UNIT SQ WITH MEALS 10/18/15 Insulin Glargine* (Lantus*) 100 Unit/Ml Soln, 30 UNIT SC HS, EA 10/18/15 Carvedilol* (Carvedilol*) 12.5 Mg Tablet, 12.5 MG PO BID, TAB 10/18/15 Isosorbide Mononitrate* (Imdur*) 30 Mg Tab.sr.24h, 30 MG PO DAILY, TAB 02/20/14 Discontinued Scripts Prednisone* (Prednisone*) 20 Mg Tab, 20 MG PO BID for 4 Days, TAB Prov:RAFAEL POE 10/18/15 Follow-up Plan Follow-up physicians at acute rehab Primary Care Provider Not On Staff Doctor Time spent on discharge: > 30 minutes ZHANG YOUNG May 27, 2017 13:42
== END 2017-05-26 18:40 | DRG 65 ==
LOC: E/R 20:27 → TEL 05-19 01:59
PROVIDERS: ADMIT Family Medicine; ATTEND Family Medicine
DX: I63.8 Other cerebral infarction (principal); N17.9 Acute kidney failure, unspecified; E11.22 Type 2 diabetes mellitus with diabetic chronic kidney disease; E11.43 Type 2 diabetes mellitus with diabetic autonomic (poly)neuropathy; N18.3 Chronic kidney disease, stage 3 (moderate); G81.94 Hemiplegia, unspecified affecting left nondominant side; E83.9 Disorder of mineral metabolism, unspecified; I25.10 Atherosclerotic heart disease of native coronary artery without angina pectoris; F32.9 Major depressive disorder, single episode, unspecified; I12.9 Hypertensive chronic kidney disease with stage 1 through stage 4 chronic kidney disease, or unspecified chronic kidney disease; R47.81 Slurred speech; I16.0 Hypertensive urgency; M89.9 Disorder of bone, unspecified; E86.1 Hypovolemia; E78.5 Hyperlipidemia, unspecified; R33.9 Retention of urine, unspecified; Z79.4 Long term (current) use of insulin; Z95.0 Presence of cardiac pacemaker; Z86.718 Personal history of other venous thrombosis and embolism; I95.1 Orthostatic hypotension; N40.1 Benign prostatic hyperplasia with lower urinary tract symptoms; Z79.82 Long term (current) use of aspirin; Z79.02 Long term (current) use of antithrombotics/antiplatelets
CPT/HCPCS: 36415; 70450; 70551; 71010; 76775; 80048; 80053; 80061; 80307; 81001; 81003; 82043; 82962; 83036; 83735; 84100; 84155; 84300; 84443; 84484; 85025; 85610; 85730; 92523; 92610; 93005; 93306; 93880; 95819; 96374; 97116; 97162; 97167; 97530; J0360; J1815; J2060; J7040

== ENCOUNTER 2017-05-26 19:07 | Inpatient (IN) | payer BC ==
[~2017-05-26] VITALS: Ht 198.1 cm; Wt 75.0 kg
[~2017-05-26 19:07] MED LIST changes: -ATOR10TA65 PO; -BCL80INH INH; -CALC667C PO; +CLOP75TA4 PO; +DILT240C79 PO; +DOCU-159 PO; +ERGO500037 PO; +FER325 PO; +FURO80TA3 PO; -GEMF600T PO; -NEPH PO; +PARO10TA76 PO; +POTA-57 PO; +SITA50TA2 PO; +TAMS0.4C2 PO; +TRAM-40 PO
[2017-05-26 20:00] VITALS: BP 170/83; RESP 18
[2017-05-26] MEDS ORDERED: ACETAMINOPHEN 325 MG TAB PO PRN (20:50)
[2017-05-26] MEDS ORDERED: GLUCAGON 1 MG INJ IM PRN (20:52)
[2017-05-26] MEDS ORDERED: DEXTROSE 50% 50 ML SYRINGE IV PRN ×2 (20:52)
[2017-05-26] MEDS ORDERED: GLUCOSE GEL 15 GRAM TUBE PO PRN ×2 (20:53)
[2017-05-26] MEDS ORDERED: hydrALAzine 20 MG INJ IV PRN (20:54)
[2017-05-26] MEDS: INSULIN ASPART [NOVOLOG] 3 ML PEN SC SCH (21:00)
[2017-05-26] MEDS ORDERED: ONDANSETRON 4 MG INJ IV PRN (21:00)
[2017-05-26 21:32] VITALS: BP 130/77; PULSE 73; RESP 16
[2017-05-26] MEDS: ZOLPIDEM 5 MG TAB PO PRN (22:36)
[2017-05-26] MEDS: TAMSULOSIN (SR) 0.4 MG CAP PO SCH (22:36)
[2017-05-26] MEDS: ATORVASTATIN 80 MG TAB PO SCH (22:36)
[2017-05-26] MEDS: LEVETIRACETAM 500 MG TAB PO SCH (22:37)
[2017-05-26] MEDS: INSULIN GLARGINE [LANtus] 3 ML PEN SC SCH (22:55)
[2017-05-27 01:04] LABS: ADD UMIC YES; UR ASCORBIC ACID NEGATIVE (NEGATIVE); UR BILIRUBIN (Dip) NEGATIVE (NEGATIVE); UR BLOOD (Dip) 1+ mg/dL (NEGATIVE); UR CLARITY CLEAR (CLEAR); UR COLOR YELLOW (YELLOW); UR GLUCOSE (Dip) 2+ mg/dL (NEGATIVE); UR KETONES (Dip) NEGATIVE (NEGATIVE); UR LEUKOCYTE ESTERASE (Dip) NEGATIVE Leu/ul (NEGATIVE); UR MUCUS FEW /HPF (NONE SEEN); UR NITRITE (Dip) NEGATIVE (NEGATIVE); UR RBC 1 /HPF (0-5); UR SPECIFIC GRAVITY (Dip) 1.019 (1.003-1.030); UR TOTAL PROTEIN (Dip) 3+ mg/dl (NEGATIVE); UR UROBILINOGEN (Dip) NEGATIVE (NEGATIVE)
[2017-05-27] MEDS: ACCU-CHEK XX SCH (02:00)
[2017-05-27 02:35] VITALS: Ht 198.1 cm; Wt 75.0 kg
[2017-05-27 03:27] VITALS: BP 135/73; RESP 18
[2017-05-27] MEDS ORDERED: LACTULOSE 30ML CUP PO PRN (04:30)
[2017-05-27] MEDS ORDERED: MAGNESIUM HYDROXIDE 30ML CUP PO PRN (04:30)
[2017-05-27] MEDS ORDERED: BISACODYL 10 MG SUPP PR PRN (04:30)
[2017-05-27] MEDS: INSULIN ASPART [NOVOLOG] 3 ML PEN SC SCH ×4 (07:35→21:00)
[2017-05-27 07:46] LABS: BASOPHILS % 0.5 % (0.0-2.0); EOSINOPHILS # 0.2 10^3/ul (0.0-0.5); HEMATOCRIT 37.7 % (42.0-52.0); LYMPHOCYTES # 1.3 10^3/ul (0.8-2.9); LYMPHOCYTES % 24.1 % (15.0-51.0); MEAN CORPUSCULAR HGB CONC 34.5 g/dl (32.0-37.0); MEAN CORPUSCULAR VOLUME 86.9 fl (82.0-101.0); MEAN PLATELET VOLUME 10.9 fl (7.4-10.4); MONOCYTE # 0.4 10^3/ul (0.3-0.9); MONOCYTES % 6.6 % (0.0-11.0); NEUTROPHILS % 64.4 % (39.0-77.0); PLATELET COUNT 171 10^3/UL (140-415); RED BLOOD COUNT 4.34 10^6/ul (4.70-6.10); RED CELL DISTRIBUTION WIDTH 12.3 % (11.5-14.5); WHITE BLOOD COUNT 5.5 10^3/ul (4.8-10.8)
[2017-05-27 08:00] VITALS: BP 131/78; RESP 18
[2017-05-27 08:06] LABS: ALBUMIN 3.5 g/dl (3.3-4.9); ALBUMIN/GLOBULIN RATIO 1.2; BILIRUBIN,INDIRECT 0.2 mg/dl (0-1.1); BILIRUBIN,TOTAL 0.2 mg/dl (0.2-1.3); CALCIUM 9.3 mg/dl (8.4-10.2); CREATININE 2.64 mg/dl (0.61-1.24); TOTAL PROTEIN 6.4 g/dl (6.1-8.1)
[2017-05-27] MEDS: LOSARTAN 50 MG TAB PO SCH (08:25)
[2017-05-27] MEDS: CLOPIDOGREL 75 MG TAB PO SCH (08:25)
[2017-05-27] MEDS: LEVETIRACETAM 500 MG TAB PO SCH ×2 (08:25→21:01)
[2017-05-27] MEDS: FAMOTIDINE 20 MG TAB PO SCH (08:25)
[2017-05-27] MEDS: ASPIRIN 81 MG TAB PO SCH (08:26)
[2017-05-27] MEDS ORDERED: NACL 0.9% 3 ML SYG IV SCH (09:00)
[2017-05-27] MEDS ORDERED: LOSARTAN 25 MG TAB PO SCH (09:00)
--- NOTE | 2017-05-27 10:52 | PN ---
Date/Time of Note Date/Time of Note DATE: 05/27/17 TIME: 10:51 Assessment/Plan VTE Prophylaxis VTE Prophylaxis Intervention: other Lines/Catheters [facility]from [facility] Saline Lock Assessment/Plan Chief Complaint/Hosp Course renal follow up SUBJECTIVE DATA: Transferred to ARU on 05/26 No nausea, vomiting, chest pain, dypsnea. has good uop. No hemoptysis, hematemesis, hematochezia. d/w Dr Bah acute component of renal failure resolved good uop since linares was removed OBJECTIVE DATA: HEENT: Head is normocephalic. NECK: Supple. HEART: Regular rate. LUNGS: Diminished breath sounds at the base. ABDOMEN: Soft, nontender to palpation. No rebound or guarding. EXTREMITIES: Negative for clubbing, cyanosis, no edema. DERMATOLOGIC: Clean. No rashes. MUSCULOSKELETAL: No joint effusion. NEUROLOGIC: No change in exam. 1. Nonoliguric acute kidney injury on top of chronic kidney disease stage IIIB. Etiology of acute kidney injury secondary to hemodynamics. Renal function is improving slowly. At this point will continue current treatment. Supportive care. Renally dose all meds. 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 OK to use low dose ARB for now. will up titrate as tolerated 2. Chronic kidney disease likely from diabetic nephropathy. 3. Orthostatic hypotension. Etiology may be secondary to volume depletion versus neurogenic from recent cerebrovascular accident. Will monitor closely. Consider gentle fluid challenge. 4. Mineral bone disorder. Monitor calcium and phosphorus levels. 5. Acute cerebrovascular accident. Continue medical management. 6. Coronary disease. Continue current treatment plan. 7. Gastrointestinal and deep venous thrombosis prophylaxis. Problems: Exam/Review of Systems Vital Signs Vitals Vital Signs Date Time Temp Pulse Resp B/P Pulse Ox O2 Delivery O2 Flow Rate FiO2 05/27/17 08:00 98.2 95 18 131/78 97 Intake and Output 05/26/17 05/26/17 05/27/17 15:00 23:00 07:00 Intake Total 800 ml Balance 800 ml Results Result Diagram: 05/27/17 0703 05/27/17 0703 Results 24 hrs Laboratory Tests Test 05/26/17 23:30 05/27/17 07:03 05/27/17 07:54 Urine Color YELLOW Urine Clarity CLEAR Urine pH 6.0 Urine Specific [place] 1.019 Urine Ketones NEGATIVE Urine Nitrite NEGATIVE Urine Bilirubin NEGATIVE Urine Urobilinogen NEGATIVE Urine Leukocyte Esterase NEGATIVE Urine Microscopic RBC 1 Urine Microscopic WBC 2 Urine Mucus FEW A Urine Hemoglobin 1+ H Urine Glucose 2+ H Urine Total Protein 3+ H White Blood Count 5.5 Red Blood Count 4.34 L Hemoglobin 13.0 L Hematocrit 37.7 L Mean Corpuscular Volume 86.9 Mean Corpuscular Hemoglobin 30.0 Mean Corpuscular Hemoglobin Concent 34.5 Red Cell Distribution Width 12.3 Platelet Count 171 Mean Platelet Volume 10.9 H Neutrophils % 64.4 Lymphocytes % 24.1 Monocytes % 6.6 Eosinophils % 4.0 Basophils % 0.5 Nucleated Red Blood Cells % 0.0 Neutrophils # (Manual) 4 Lymphocytes # 1.3 Monocytes # 0.4 Eosinophils # 0.2 Basophils # 0.0 Nucleated Red Blood Cells # 0.0 Sodium Level 145 H Potassium Level 4.0 Chloride Level 107 Carbon Dioxide Level 26 Anion Gap 16 Blood Urea Nitrogen 38 H Creatinine 2.64 H Glucose Level 77 Calcium Level 9.3 Total Bilirubin 0.2 Direct Bilirubin 0.00 Indirect Bilirubin 0.2 Aspartate Amino Transf (AST/SGOT) 23 Alanine Aminotransferase (ALT/SGPT) 37 Alkaline Phosphatase 78 Total Protein 6.4 Albumin 3.5 Globulin 2.90 Albumin/Globulin Ratio 1.20 Bedside Glucose 80 Medications Medications Current Medications Ondansetron HCl (Zofran Inj) 4 mg Q6H PRN IV NAUSEA AND/OR VOMITING; Start at 21:00 Acetaminophen (Tylenol Tab) 650 mg Q6H PRN PO PAIN LEVEL 1-3 OR FEVER; Start at 20:50 Famotidine (Pepcid) 20 mg DAILY PO Last administered on 05/27/17t 08:25; Admin Dose 20 MG; Start 05/27/17 at 09:00 Diagnostic Test (Pha) (Accu-Chek) 1 ea 02 XX ; Start 05/27/17 at 02:00 Miscellaneous Information 1 ea NOTE XX ; Start 05/27/17 at 09:00 Glucose (Glutose) 15 gm Q15M PRN PO DECREASED GLUCOSE; Start 05/26/17 at 20:53 Glucose (Glutose) 22.5 gm Q15M PRN PO DECREASED GLUCOSE; Start 05/26/17 at 20: 53 Dextrose (D50w Syringe) 25 ml Q15M PRN IV DECREASED GLUCOSE; Start 05/26/17 at 20:52 Dextrose (D50w Syringe) 50 ml Q15M PRN IV DECREASED GLUCOSE; Start 05/26/17 at 20:52 Glucagon (Glucagen) 1 mg Q15M PRN IM DECREASED GLUCOSE; Start 05/26/17 at 20:52 Glucose (Glutose) 15 gm Q15M PRN BUCCAL DECREASED GLUCOSE; Start 05/27/17 at 20 :53 Atorvastatin Calcium (Lipitor) 80 mg HS PO Last administered on 05/26/17 22:36 ; Admin Dose 80 MG; Start 05/26/17 at 21:00 Aspirin (Aspirin) 81 mg DAILY PO Last administered on 05/27/17 08:26; Admin Dose 81 MG; Start 05/27/17 at 09:00 Clopidogrel Bisulfate (plaVIX) 75 mg DAILY PO Last administered on 05/27/17 08 :25; Admin Dose 75 MG; Start 05/27/17 at 09:00 Levetiracetam (Keppra) 500 mg BID PO Last administered on 05/27/17 08:25; Admin Dose 500 MG; Start 05/26/17 at 21:00 Tamsulosin HCl (Flomax) 0.4 mg HS PO Last administered on 05/26/17 22:36; Admin Dose 0.4 MG; Start 05/26/17 at 21:00 Insulin Glargine (Lantus) 20 unit HS SC Last administered on 05/26/17 22:55; Admin Dose 20 UNIT; Start 05/26/17 at 21:00 Hydralazine HCl (Apresoline) 10 mg Q8 PO Last administered on 05/27/17 06:01; Admin Dose 10 MG; Start 05/26/17 at 22:00 Hydralazine HCl (Apresoline) 10 mg Q4H PRN IV Hypertension; Start 05/26/17 at 20:54 Lorazepam (Ativan) 0.5 mg HS PRN PO ANXIETY; Start 05/26/17 at 20:58 Zolpidem Tartrate (Ambien) 5 mg HS PRN PO INSOMNIA Last administered on 22:36; Admin Dose 5 MG; Start 05/26/17 at 22:30 Losartan Potassium (Cozaar) 50 mg DAILY PO Last administered on 8/19/17at 08:25 ; Admin Dose 50 MG; Start 05/27/17 at 09:00 Bisacodyl (Dulcolax Supp) 10 mg DAILY PRN [place] CONSTIPATION; Start 05/27/17 at 04 :30 Magnesium Hydroxide (Milk Of Mag) 30 ml BID PRN PO CONSTIPATION; Start at 04:30 Lactulose (Enulose) 20 gm DAILY PRN PO CONSTIPATION; Start 05/27/17 at 04:30 NUVIA CIFUENTES DO May 27, 2017 10:52
--- NOTE | 2017-05-27 14:45 | PN ---
Date/Time of Note Date/Time of Note DATE: 05/27/17 TIME: 14:41 Assessment/Plan VTE Prophylaxis VTE Prophylaxis Intervention: heparin (Please note negative echocardiogram negative carotid duplex scan) Lines/Catheters [facility] (from [facility] Saline Lock Assessment/Plan Problems: (1) Type 2 diabetes mellitus with diabetic nephropathy, with long-term current use of insulin Status: Chronic Comment: His blood sugar control at the present time is adequate on current medication regimen. Will continue with best possible control both for the acute CVA and protection of his kidneys. (2) Chronic kidney disease, stage III (moderate) Status: Chronic Comment: Noted and stable. (3) Acute kidney injury Status: Resolved Comment: As per nephrology this is improving towards baseline; please note he is not at baseline yet (4) BPH (benign prostatic hypertrophy) with urinary retention Status: Chronic Comment: He is on treatment for this. I will check a postvoid residual (5) Hypertension, essential Status: Chronic Comment: He is on appropriate therapeutics (6) Hyperlipidemia Status: Chronic Comment: Continue with statin therapy Qualifiers: Hyperlipidemia type: pure hypercholesterolemia Qualified Code: E78.00 - Pure hypercholesterolemia (7) Seizure disorder Status: Chronic Comment: This is been quiescent. He will continue on his antiepileptic drugs. (8) Right pontine cerebrovascular accident Status: Acute Comment: He is in for rehabilitative care. Hopefully he will have good response starting soon Subjective 24 Hr Interval Summary Free Text/Dictation Patient awake alert communicative. He denies any specific complaints other than his left upper extremity still is not moving Constitutional: no complaints (No fevers chills or sweats) Respiratory: no complaints Cardiovascular: no complaints Gastrointestinal: no complaints Genitourinary: no complaints Musculoskeletal: no complaints Neurologic: other (No new symptoms) Exam/Review of Systems Vital Signs Vitals Vital Signs Date Time Temp Pulse Resp B/P Pulse Ox O2 Delivery O2 Flow Rate FiO2 05/27/17 08:00 98.2 95 18 131/78 97 Intake and Output 05/26/17 05/26/17 05/27/17 15:00 23:00 07:00 Intake Total 800 ml Balance 800 ml Exam Constitutional: alert, oriented Neck: non-tender, supple Respiratory: clear to auscultation, normal air movement Cardiovascular: nl pulses, regular rate and rhythm Neurological: other (Right side without abnormality left side lower extremity has 4- out of 5 strength left upper extremity is flaccid) Results Result Diagram: 05/27/17 0703 05/27/17 0703 Results 24 hrs Laboratory Tests Test 05/26/17 23:30 05/27/17 07:03 05/27/17 07:54 05/27/17 12:15 Urine Color YELLOW Urine Clarity CLEAR Urine pH 6.0 Urine Specific [place] 1.019 Urine Ketones NEGATIVE Urine Nitrite NEGATIVE Urine Bilirubin NEGATIVE Urine Urobilinogen NEGATIVE Urine Leukocyte Esterase NEGATIVE Urine Microscopic RBC 1 Urine Microscopic WBC 2 Urine Mucus FEW A Urine Hemoglobin 1+ H Urine Glucose 2+ H Urine Total Protein 3+ H White Blood Count 5.5 Red Blood Count 4.34 L Hemoglobin 13.0 L Hematocrit 37.7 L Mean Corpuscular Volume 86.9 Mean Corpuscular Hemoglobin 30.0 Mean Corpuscular Hemoglobin Concent 34.5 Red Cell Distribution Width 12.3 Platelet Count 171 Mean Platelet Volume 10.9 H Neutrophils % 64.4 Lymphocytes % 24.1 Monocytes % 6.6 Eosinophils % 4.0 Basophils % 0.5 Nucleated Red Blood Cells % 0.0 Neutrophils # (Manual) 4 Lymphocytes # 1.3 Monocytes # 0.4 Eosinophils # 0.2 Basophils # 0.0 Nucleated Red Blood Cells # 0.0 Sodium Level 145 H Potassium Level 4.0 Chloride Level 107 Carbon Dioxide Level 26 Anion Gap 16 Blood Urea Nitrogen 38 H Creatinine 2.64 H Glucose Level 77 Calcium Level 9.3 Total Bilirubin 0.2 Direct Bilirubin 0.00 Indirect Bilirubin 0.2 Aspartate Amino Transf (AST/SGOT) 23 Alanine Aminotransferase (ALT/SGPT) 37 Alkaline Phosphatase 78 Total Protein 6.4 Albumin 3.5 Globulin 2.90 Albumin/Globulin Ratio 1.20 Bedside Glucose 80 165 Medications Medications Current Medications Ondansetron HCl (Zofran Inj) 4 mg Q6H PRN IV NAUSEA AND/OR VOMITING; Start at 21:00 Acetaminophen (Tylenol Tab) 650 mg Q6H PRN PO PAIN LEVEL 1-3 OR FEVER; Start at 20:50 Famotidine (Pepcid) 20 mg DAILY PO Last administered on 05/27/17t 08:25; Admin Dose 20 MG; Start 05/27/17 at 09:00 Diagnostic Test (Pha) (Accu-Chek) 1 ea 02 XX ; Start 05/27/17 at 02:00 Miscellaneous Information 1 ea NOTE XX ; Start 05/27/17 at 09:00 Glucose (Glutose) 15 gm Q15M PRN PO DECREASED GLUCOSE; Start 05/26/17 at 20:53 Glucose (Glutose) 22.5 gm Q15M PRN PO DECREASED GLUCOSE; Start 05/26/17 at 20: 53 Dextrose (D50w Syringe) 25 ml Q15M PRN IV DECREASED GLUCOSE; Start 05/26/17 at 20:52 Dextrose (D50w Syringe) 50 ml Q15M PRN IV DECREASED GLUCOSE; Start 05/26/17 at 20:52 Glucagon (Glucagen) 1 mg Q15M PRN IM DECREASED GLUCOSE; Start 05/26/17 at 20:52 Glucose (Glutose) 15 gm Q15M PRN BUCCAL DECREASED GLUCOSE; Start 05/27/17 at 20 :53 Atorvastatin Calcium (Lipitor) 80 mg HS PO Last administered on 05/26/17 22:36 ; Admin Dose 80 MG; Start 05/26/17 at 21:00 Aspirin (Aspirin) 81 mg DAILY PO Last administered on 05/27/17 08:26; Admin Dose 81 MG; Start 05/27/17 at 09:00 Clopidogrel Bisulfate (plaVIX) 75 mg DAILY PO Last administered on 05/27/17 08 :25; Admin Dose 75 MG; Start 05/27/17 at 09:00 Levetiracetam (Keppra) 500 mg BID PO Last administered on 05/27/17 08:25; Admin Dose 500 MG; Start 05/26/17 at 21:00 Tamsulosin HCl (Flomax) 0.4 mg HS PO Last administered on 05/26/17 22:36; Admin Dose 0.4 MG; Start 05/26/17 at 21:00 Insulin Glargine (Lantus) 20 unit HS SC Last administered on 05/26/17 22:55; Admin Dose 20 UNIT; Start 05/26/17 at 21:00 Hydralazine HCl (Apresoline) 10 mg Q8 PO Last administered on 05/27/17 13:22; Admin Dose 10 MG; Start 05/26/17 at 22:00 Hydralazine HCl (Apresoline) 10 mg Q4H PRN IV Hypertension; Start 05/26/17 at 20:54 Lorazepam (Ativan) 0.5 mg HS PRN PO ANXIETY; Start 05/26/17 at 20:58 Zolpidem Tartrate (Ambien) 5 mg HS PRN PO INSOMNIA Last administered on 22:36; Admin Dose 5 MG; Start 05/26/17 at 22:30 Losartan Potassium (Cozaar) 50 mg DAILY PO Last administered on 05/27/17 08:25 ; Admin Dose 50 MG; Start 05/27/17 at 09:00 Bisacodyl (Dulcolax Supp) 10 mg DAILY PRN [place] CONSTIPATION; Start 05/27/17 at 04 :30 Magnesium Hydroxide (Milk Of Mag) 30 ml BID PRN PO CONSTIPATION; Start at 04:30 Lactulose (Enulose) 20 gm DAILY PRN PO CONSTIPATION; Start 05/27/17 at 04:30 MAYRA ANDERS MD May 27, 2017 14:45
[2017-05-27 19:10] VITALS: BP 189/95; PULSE 65; RESP 18
[2017-05-27 20:00] VITALS: BP 141/70; RESP 18
--- NOTE | 2017-05-27 20:39 | CONS ---
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 ACTIVE COMORBIDITIES: 1. Hypertension. 2. Diabetes mellitus. 3. Seizure disorder. 4. History of DVT. 5. Hyperlipidemia. 6. History of pacemaker. 7. Impairments in self-care and mobility. HISTORY OF PRESENT ILLNESS: The patient is a 56-year-old, right- handed gentleman with a history of hypertension, diabetes mellitus, hyperlipidemia, who was admitted with dysarthria, left- sided weakness and impairments in self-care and mobility. Workup did reveal multiple lacunar infarcts. Patient was also noted to have underlying seizure activity. MRI of the brain did demonstrate right pontine lacunar infarct. In addition to chronic bilateral basal ganglia, left thalamic and right murguia radiata. The patient noted to have significant impairments in self-care, mobility, as compared to baseline and has been cleared to transfer to the Rehabilitation Unit for comprehensive interdisciplinary rehab care. FUNCTIONAL HISTORY: Prior to recent events, he was independent in self-care tasks and mobility. Currently, he requires maximal assist for self-care mobility tasks. I have reviewed the preadmission screen and patient's current functional status is consistent with the preadmission screen. SOCIAL HISTORY: Patient lives at home with supportive family and hopes to return there upon discharge. PAST MEDICAL HISTORY: 1. Cardiac disease. 2. Hypertension. 3. Diabetes mellitus. 4. BPH. 5. Depression. MEDICATION: 1. Aspirin 81 mg p.o. every day. 2. Plavix 75 mg p.o. every day. 3. Pepcid 20 mg p.o. every day. 4. Insulin sliding scale. 5. Keppra 500 mg p.o. b.i.d. 6. Lantus 20 units subcutaneous at bedtime. 7. Cozaar 50 mg p.o. every day. 8. Flomax 0.4 mg p.o. at bedtime. ALLERGIES: PATIENT WITH NO KNOWN DRUG ALLERGIES. PHYSICAL EXAMINATION: GENERAL APPEARANCE: Patient is currently afebrile with stable vital signs. HEENT: Extraocular motion intact. Oropharynx clear. NECK: Supple. LUNGS: Clear anteriorly. HEART: S1, S2. ABDOMEN: Soft, nontender. Positive bowel sounds. NEUROLOGICALLY: Awake and alert. He will follow simple one-step commands. He demonstrates good strength in the right upper and lower extremities. He has a flaccid left upper extremity. He has antigravity strength in the left lower extremity. PLAN: Patient has been admitted for comprehensive interdisciplinary acute rehab and is anticipated to tolerate 3 hours of daily therapy in divided doses for at least 5/7 days a week. The treatment plan will include: 1. Physical therapy to focus on bed mobility, transfers and household ambulation with goal have patient reach standby assist level. 2. Occupational therapy to focus on hygiene, grooming, dressing, bathing and toileting activities with goal to have patient reach standby assist level. 3. Speech therapy for full cognitive assessment and retraining, in addition to the goal of having patient meet nutritional needs by mouth return to baseline cognition. 4. Rehabilitation nursing for carry over of therapeutic interventions. The goal of continent to bowel and bladder, and the goal of patient and family education with regards to the aforementioned issues. REHABILITATION BARRIER: Cognition. INTERVENTION FOR BARRIER: Speech therapy. ESTIMATED LENGTH OF STAY: 10 days. DISPOSITION: Goal home. I acknowledge that I performed a full physical examination on this patient within 24 hours of admission to the Rehabilitation Unit and believe the patient is a good candidate for comprehensive interdisciplinary rehab care and is anticipated to make reasonable goals in a reasonable period of time as outlined above. Dictated By: Bryanna Suh MD /trini/melisa /Document#: [id number]
[2017-05-27] MEDS ORDERED: GLUCOSE GEL 15 GRAM TUBE BUCCAL PRN (20:53)
[2017-05-27] MEDS: ATORVASTATIN 80 MG TAB PO SCH (21:01)
[2017-05-27] MEDS: TAMSULOSIN (SR) 0.4 MG CAP PO SCH (21:01)
[2017-05-27] MEDS: INSULIN GLARGINE [LANtus] 3 ML PEN SC SCH (21:03)
[2017-05-27] MEDS: ZOLPIDEM 5 MG TAB PO PRN (22:30)
[2017-05-28] MEDS: LORAZEPAM 0.5 MG TAB PO PRN (01:37)
[2017-05-28 02:00] VITALS: BP 146/70; RESP 18
[2017-05-28] MEDS: ACCU-CHEK XX SCH (02:00)
[2017-05-28] MEDS: INSULIN ASPART [NOVOLOG] 3 ML PEN SC SCH ×4 (07:35→20:57)
[2017-05-28 08:00] VITALS: BP 125/67; PULSE 74; RESP 16
[2017-05-28] MEDS: ASPIRIN 81 MG TAB PO SCH (09:28)
[2017-05-28] MEDS: LOSARTAN 50 MG TAB PO SCH (09:28)
[2017-05-28] MEDS: FAMOTIDINE 20 MG TAB PO SCH (09:28)
[2017-05-28] MEDS: CLOPIDOGREL 75 MG TAB PO SCH (09:28)
[2017-05-28] MEDS: LEVETIRACETAM 500 MG TAB PO SCH ×2 (09:28→20:54)
--- NOTE | 2017-05-28 10:12 | PN ---
Date/Time of Note Date/Time of Note DATE: 05/28/17 TIME: 10:11 Assessment/Plan VTE Prophylaxis VTE Prophylaxis Intervention: other Lines/Catheters IV [facility]from [facility] Saline Lock Assessment/Plan Chief Complaint/Hosp Course renal follow up SUBJECTIVE DATA: Transferred to ARU on 05/26 No nausea, vomiting, chest pain, dypsnea. has good uop. No hemoptysis, hematemesis, hematochezia. d/w Dr Bah acute component of renal failure resolved good uop since linares was removed OBJECTIVE DATA: HEENT: Head is normocephalic. NECK: Supple. HEART: Regular rate. LUNGS: Diminished breath sounds at the base. ABDOMEN: Soft, nontender to palpation. No rebound or guarding. EXTREMITIES: Negative for clubbing, cyanosis, no edema. DERMATOLOGIC: Clean. No rashes. MUSCULOSKELETAL: No joint effusion. NEUROLOGIC: No change in exam. 1. Nonoliguric acute kidney injury on top of chronic kidney disease stage IIIB. Etiology of acute kidney injury secondary to hemodynamics. Renal function is improving slowly. At this point will continue current treatment. Supportive care. Renally dose all meds. 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 OK to use low dose ARB for now. will up titrate as tolerated 2. Chronic kidney disease likely from diabetic nephropathy. 3. Orthostatic hypotension. Etiology may be secondary to volume depletion versus neurogenic from recent cerebrovascular accident. Will monitor closely. Consider gentle fluid challenge. 4. Mineral bone disorder. Monitor calcium and phosphorus levels. 5. Acute cerebrovascular accident. Continue medical management. 6. Coronary disease. Continue current treatment plan. 7. Gastrointestinal and deep venous thrombosis prophylaxis. Problems: Exam/Review of Systems Vital Signs Vitals Vital Signs Date Time Temp Pulse Resp B/P Pulse Ox O2 Delivery O2 Flow Rate FiO2 05/28/17 02:00 98.3 18 146/70 95 05/27/17 20:00 75 Intake and Output 05/27/17 05/27/17 05/28/17 15:00 23:00 07:00 Intake Total 800 ml 1120 ml 930 ml Balance 800 ml 1120 ml 930 ml Results Result Diagram: 05/27/17 0703 05/27/17 0703 Results 24 hrs Laboratory Tests Test 05/27/17 12:15 05/27/17 17:19 05/27/17 21:00 05/28/17 08:58 Bedside Glucose 165 194 137 114 Medications Medications Current Medications Ondansetron HCl (Zofran Inj) 4 mg Q6H PRN IV NAUSEA AND/OR VOMITING; Start at 21:00 Acetaminophen (Tylenol Tab) 650 mg Q6H PRN PO PAIN LEVEL 1-3 OR FEVER; Start at 20:50 Famotidine (Pepcid) 20 mg DAILY PO Last administered on 05/28/17 09:28; Admin Dose 20 MG; Start 05/27/17 at 09:00 Diagnostic Test (Pha) (Accu-Chek) 1 ea 02 XX ; Start 05/27/17 at 02:00 Miscellaneous Information 1 ea NOTE XX ; Start 05/27/17 at 09:00 Glucose (Glutose) 15 gm Q15M PRN PO DECREASED GLUCOSE; Start 05/26/17 at 20:53 Glucose (Glutose) 22.5 gm Q15M PRN PO DECREASED GLUCOSE; Start 05/26/17 at 20: 53 Dextrose (D50w Syringe) 25 ml Q15M PRN IV DECREASED GLUCOSE; Start 05/26/17 at 20:52 Dextrose (D50w Syringe) 50 ml Q15M PRN IV DECREASED GLUCOSE; Start 05/26/17 at 20:52 Glucagon (Glucagen) 1 mg Q15M PRN IM DECREASED GLUCOSE; Start 05/26/17 at 20:52 Glucose (Glutose) 15 gm Q15M PRN BUCCAL DECREASED GLUCOSE; Start 05/27/17 at 20 :53 Atorvastatin Calcium (Lipitor) 80 mg HS PO Last administered on 05/27/17 21:01 ; Admin Dose 80 MG; Start 05/26/17 at 21:00 Aspirin (Aspirin) 81 mg DAILY PO Last administered on 05/28/17 09:28; Admin Dose 81 MG; Start 05/27/17 at 09:00 Clopidogrel Bisulfate (plaVIX) 75 mg DAILY PO Last administered on 05/28/17 09 :28; Admin Dose 75 MG; Start 05/27/17 at 09:00 Levetiracetam (Keppra) 500 mg BID PO Last administered on 05/28/17 09:28; Admin Dose 500 MG; Start 05/26/17 at 21:00 Tamsulosin HCl (Flomax) 0.4 mg HS PO Last administered on 05/27/17 21:01; Admin Dose 0.4 MG; Start 05/26/17 at 21:00 Insulin Glargine (Lantus) 20 unit HS SC Last administered on 05/27/17 21:03; Admin Dose 20 UNIT; Start 05/26/17 at 21:00 Hydralazine HCl (Apresoline) 10 mg Q8 PO Last administered on 05/28/17 06:42; Admin Dose 10 MG; Start 05/26/17 at 22:00 Hydralazine HCl (Apresoline) 10 mg Q4H PRN IV Hypertension; Start 05/26/17 at 20:54 Lorazepam (Ativan) 0.5 mg HS PRN PO ANXIETY Last administered on 05/28/17 01: 37; Admin Dose 0.5 MG; Start 05/26/17 at 20:58 Zolpidem Tartrate (Ambien) 5 mg HS PRN PO INSOMNIA Last administered on 22:30; Admin Dose 5 MG; Start 05/26/17 at 22:30 Losartan Potassium (Cozaar) 50 mg DAILY PO Last administered on 05/28/17 09:28 ; Admin Dose 50 MG; Start 05/27/17 at 09:00 Bisacodyl (Dulcolax Supp) 10 mg DAILY PRN [place] CONSTIPATION; Start 05/27/17 at 04 :30 Magnesium Hydroxide (Milk Of Mag) 30 ml BID PRN PO CONSTIPATION; Start at 04:30 Lactulose (Enulose) 20 gm DAILY PRN PO CONSTIPATION; Start 05/27/17 at 04:30 NUVIA CIFUENTES DO May 28, 2017 10:11
--- NOTE | 2017-05-28 13:12 | PN ---
Date/Time of Note Date/Time of Note DATE: 05/28/17 TIME: 13:10 Assessment/Plan VTE Prophylaxis VTE Prophylaxis Intervention: heparin Lines/Catheters IV Catheter Type (from Nrsg): Saline Lock Assessment/Plan Problems: (1) Right pontine cerebrovascular accident Status: Acute Comment: Fully he will start to see some resolution and regain of function with physical therapy in the acute rehabilitation unit (2) Seizure disorder Status: Chronic Comment: Quiescent without activity of seizures (3) Hyperlipidemia Status: Chronic Comment: On appropriate statin therapy Qualifiers: Hyperlipidemia type: pure hypercholesterolemia Qualified Code: E78.00 - Pure hypercholesterolemia (4) Hypertension, essential Status: Chronic Comment: Adequate control (5) BPH (benign prostatic hypertrophy) with urinary retention Status: Chronic Comment: Adequate control (6) Chronic kidney disease, stage III (moderate) Status: Chronic Comment: On serum creatinine from a year and half ago was 1.9. Patient has not gotten back to that state yet (7) Acute kidney injury Status: Resolved Comment: As per nephrology Subjective 24 Hr Interval Summary Free Text/Dictation Pleasant gentleman with a positive attitude reports no new complaints Constitutional: no complaints Respiratory: no complaints Cardiovascular: no complaints Gastrointestinal: no complaints Neurologic: no complaints (He reports he has not had any changes in his left upper extremity mobility or in the lower extremity) Exam/Review of Systems Vital Signs Vitals Vital Signs Date Time Temp Pulse Resp B/P Pulse Ox O2 Delivery O2 Flow Rate FiO2 05/28/17 02:00 98.3 18 146/70 95 05/27/17 20:00 75 Intake and Output 05/27/17 05/27/17 05/28/17 15:00 23:00 07:00 Intake Total 800 ml 1120 ml 930 ml Balance 800 ml 1120 ml 930 ml Exam Constitutional: alert, oriented Neck: non-tender, supple Respiratory: clear to auscultation, normal air movement Cardiovascular: nl pulses, regular rate and rhythm Neurological: other Results Result Diagram: 05/27/17 0703 05/27/17 0703 Results 24 hrs Laboratory Tests Test 05/27/17 17:19 05/27/17 21:00 05/28/17 08:58 05/28/17 12:15 Bedside Glucose 194 137 114 110 Medications Medications Current Medications Ondansetron HCl (Zofran Inj) 4 mg Q6H PRN IV NAUSEA AND/OR VOMITING; Start at 21:00 Acetaminophen (Tylenol Tab) 650 mg Q6H PRN PO PAIN LEVEL 1-3 OR FEVER; Start at 20:50 Famotidine (Pepcid) 20 mg DAILY PO Last administered on 05/28/17 09:28; Admin Dose 20 MG; Start 05/27/17 at 09:00 Diagnostic Test (Pha) (Accu-Chek) 1 ea 02 XX ; Start 05/27/17 at 02:00 Miscellaneous Information 1 ea NOTE XX ; Start 05/27/17 at 09:00 Glucose (Glutose) 15 gm Q15M PRN PO DECREASED GLUCOSE; Start 05/26/17 at 20:53 Glucose (Glutose) 22.5 gm Q15M PRN PO DECREASED GLUCOSE; Start 05/26/17 at 20: 53 Dextrose (D50w Syringe) 25 ml Q15M PRN IV DECREASED GLUCOSE; Start 05/26/17 at 20:52 Dextrose (D50w Syringe) 50 ml Q15M PRN IV DECREASED GLUCOSE; Start 05/26/17 at 20:52 Glucagon (Glucagen) 1 mg Q15M PRN IM DECREASED GLUCOSE; Start 05/26/17 at 20:52 Glucose (Glutose) 15 gm Q15M PRN BUCCAL DECREASED GLUCOSE; Start 05/27/17 at 20 :53 Atorvastatin Calcium (Lipitor) 80 mg HS PO Last administered on 05/27/17 21:01 ; Admin Dose 80 MG; Start 05/26/17 at 21:00 Aspirin (Aspirin) 81 mg DAILY PO Last administered on 05/28/17 09:28; Admin Dose 81 MG; Start 05/27/17 at 09:00 Clopidogrel Bisulfate (plaVIX) 75 mg DAILY PO Last administered on 05/28/17 09 :28; Admin Dose 75 MG; Start 05/27/17 at 09:00 Levetiracetam (Keppra) 500 mg BID PO Last administered on 05/28/17 09:28; Admin Dose 500 MG; Start 05/26/17 at 21:00 Tamsulosin HCl (Flomax) 0.4 mg HS PO Last administered on 05/27/17 21:01; Admin Dose 0.4 MG; Start 05/26/17 at 21:00 Insulin Glargine (Lantus) 20 unit HS SC Last administered on 05/27/17 21:03; Admin Dose 20 UNIT; Start 05/26/17 at 21:00 Hydralazine HCl (Apresoline) 10 mg Q8 PO Last administered on 05/28/17 06:42; Admin Dose 10 MG; Start 05/26/17 at 22:00 Hydralazine HCl (Apresoline) 10 mg Q4H PRN IV Hypertension; Start 05/26/17 at 20:54 Lorazepam (Ativan) 0.5 mg HS PRN PO ANXIETY Last administered on 05/28/17 01: 37; Admin Dose 0.5 MG; Start 05/26/17 at 20:58 Zolpidem Tartrate (Ambien) 5 mg HS PRN PO INSOMNIA Last administered on 22:30; Admin Dose 5 MG; Start 05/26/17 at 22:30 Losartan Potassium (Cozaar) 50 mg DAILY PO Last administered on 05/28/17 09:28 ; Admin Dose 50 MG; Start 05/27/17 at 09:00 Bisacodyl (Dulcolax Supp) 10 mg DAILY PRN [place] CONSTIPATION; Start 05/27/17 at 04 :30 Magnesium Hydroxide (Milk Of Mag) 30 ml BID PRN PO CONSTIPATION; Start at 04:30 Lactulose (Enulose) 20 gm DAILY PRN PO CONSTIPATION; Start 05/27/17 at 04:30 MAYRA ANDERS MD May 28, 2017 13:12
[2017-05-28 20:00] VITALS: BP 155/85; RESP 18
[2017-05-28] MEDS: TAMSULOSIN (SR) 0.4 MG CAP PO SCH (20:54)
[2017-05-28] MEDS: ATORVASTATIN 80 MG TAB PO SCH (20:54)
[2017-05-28] MEDS: INSULIN GLARGINE [LANtus] 3 ML PEN SC SCH (20:58)
[2017-05-28] MEDS: ZOLPIDEM 5 MG TAB PO PRN (21:02)
[2017-05-29] VITALS (15 sets, daily range): BP systolic 135–203; BP diastolic 70–108; PULSE 65–88; RESP 18–20
[2017-05-29] MEDS: ACCU-CHEK XX SCH (02:13)
[2017-05-29] MEDS: LOSARTAN 50 MG TAB PO SCH (08:08)
[2017-05-29] MEDS: FAMOTIDINE 20 MG TAB PO SCH (08:08)
[2017-05-29] MEDS: LEVETIRACETAM 500 MG TAB PO SCH ×2 (08:08→20:49)
[2017-05-29] MEDS: CLOPIDOGREL 75 MG TAB PO SCH (08:08)
[2017-05-29] MEDS: ASPIRIN 81 MG TAB PO SCH (08:08)
[2017-05-29] MEDS: INSULIN ASPART [NOVOLOG] 3 ML PEN SC SCH ×4 (08:16→20:55)
--- NOTE | 2017-05-29 09:23 | CONS ---
Date/Time of Note Date/Time of Note DATE: 05/29/17 TIME: 09:22 Consult Date/Type/Reason Admit Date/Time May 26, 2017 at 19:07 Initial Consult Date Objective Vital Signs Date Time Temp Pulse Resp B/P Pulse Ox O2 Delivery O2 Flow Rate FiO2 05/29/17 07:30 98.1 78 20 142/87 97 05/28/17 08:00 Room Air Intake and Output 05/28/17 05/28/17 05/29/17 15:00 23:00 07:00 Intake Total 810 ml Balance 810 ml Exam INTERDISCIPLINARY TEAM CONFERENCE BOWEL- Cont BLADDER-Cont SKIN- intact OT- DRESSING-moderate assist BATHING-mod max TOILETING-mod max PT- BED MOBILITY-max TRANSFERS-max AMBULATION-max 2 feet SPEECH- COGNITION-moderate assist A/P- Interdisciplinary team conference held today. Please see interdisciplinary sheet. Working toward d.c. on 06/08 with post discharge follow up of physical therapy, occupational therapy. Results/Medications Result Diagram: 05/27/17 0703 05/27/17 0703 Results 24 hrs Laboratory Tests Test 05/28/17 12:15 05/28/17 16:57 05/28/17 20:27 05/29/17 02:11 Bedside Glucose 110 190 220 205 Test 05/29/17 07:43 Bedside Glucose 145 Medications Current Medications Ondansetron HCl (Zofran Inj) 4 mg Q6H PRN IV NAUSEA AND/OR VOMITING; Start at 21:00 Acetaminophen (Tylenol Tab) 650 mg Q6H PRN PO PAIN LEVEL 1-3 OR FEVER; Start at 20:50 Famotidine (Pepcid) 20 mg DAILY PO Last administered on 05/29/17 08:08; Admin Dose 20 MG; Start 05/27/17 at 09:00 Diagnostic Test (Pha) (Accu-Chek) 1 ea 02 XX Last administered on 05/29/17 02: 13; Admin Dose 1 EA; Start 05/27/17 at 02:00 Miscellaneous Information 1 ea NOTE XX ; Start 05/27/17 at 09:00 Glucose (Glutose) 15 gm Q15M PRN PO DECREASED GLUCOSE; Start 05/26/17 at 20:53 Glucose (Glutose) 22.5 gm Q15M PRN PO DECREASED GLUCOSE; Start 05/26/17 at 20: 53 Dextrose (D50w Syringe) 25 ml Q15M PRN IV DECREASED GLUCOSE; Start 05/26/17 at 20:52 Dextrose (D50w Syringe) 50 ml Q15M PRN IV DECREASED GLUCOSE; Start 05/26/17 at 20:52 Glucagon (Glucagen) 1 mg Q15M PRN IM DECREASED GLUCOSE; Start 05/26/17 at 20:52 Glucose (Glutose) 15 gm Q15M PRN BUCCAL DECREASED GLUCOSE; Start 05/27/17 at 20 :53 Atorvastatin Calcium (Lipitor) 80 mg HS PO Last administered on 05/28/17 20:54 ; Admin Dose 80 MG; Start 05/26/17 at 21:00 Aspirin (Aspirin) 81 mg DAILY PO Last administered on 05/29/17 08:08; Admin Dose 81 MG; Start 05/27/17 at 09:00 Clopidogrel Bisulfate (plaVIX) 75 mg DAILY PO Last administered on 05/29/17 08 :08; Admin Dose 75 MG; Start 05/27/17 at 09:00 Levetiracetam (Keppra) 500 mg BID PO Last administered on 05/29/17 08:08; Admin Dose 500 MG; Start 05/26/17 at 21:00 Tamsulosin HCl (Flomax) 0.4 mg HS PO Last administered on 05/28/17 20:54; Admin Dose 0.4 MG; Start 05/26/17 at 21:00 Insulin Glargine (Lantus) 20 unit HS SC Last administered on 05/28/17 20:58; Admin Dose 20 UNIT; Start 05/26/17 at 21:00 Hydralazine HCl (Apresoline) 10 mg Q8 PO Last administered on 05/29/17 06:06; Admin Dose 10 MG; Start 05/26/17 at 22:00 Hydralazine HCl (Apresoline) 10 mg Q4H PRN IV Hypertension; Start 05/26/17 at 20:54 Lorazepam (Ativan) 0.5 mg HS PRN PO ANXIETY Last administered on 05/28/17 01: 37; Admin Dose 0.5 MG; Start 05/26/17 at 20:58 Zolpidem Tartrate (Ambien) 5 mg HS PRN PO INSOMNIA Last administered on 21:02; Admin Dose 5 MG; Start 05/26/17 at 22:30 Losartan Potassium (Cozaar) 50 mg DAILY PO Last administered on 05/29/17 08:08 ; Admin Dose 50 MG; Start 05/27/17 at 09:00 Bisacodyl (Dulcolax Supp) 10 mg DAILY PRN [place] CONSTIPATION; Start 05/27/17 at 04 :30 Magnesium Hydroxide (Milk Of Mag) 30 ml BID PRN PO CONSTIPATION; Start at 04:30 Lactulose (Enulose) 20 gm DAILY PRN PO CONSTIPATION; Start 05/27/17 at 04:30 ANDREA ALAS MD May 29, 2017 09:23
--- NOTE | 2017-05-29 11:41 | CONS ---
Date/Time of Note Date/Time of Note DATE: 05/29/17 TIME: 11:41 Assessment/Plan Assessment/Plan Chief Complaint/Hosp Course 1. 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 -Continue aspirin, Plavix and statin. -Continue with rehabilitative exercise for mobility enhancement. 2. Essential hypertension. Stable. -Continue current antihypertensives and will adjust as indicated 3. Type 2 diabetes. -Continue with Accu-Cheks with ISS and Lantus insulin 4. Seizure disorder. Stable. -Continue Keppra 5. Dyslipidemia. -On statin 4. History of coronary artery disease -Continue current medical management 5. Debility -Continue with physical therapy. 6. BPH -On Flomax 7. Chronic kidney disease stage III. -Monitor renal function closely and renally dose medications. Follow-up with nephrology recommendations. Case discussed with Dr. Chua. Problems: Consultation Date/Type/Reason Admit Date/Time May 26, 2017 at 19:07 Initial Consult Date 24 HR Interval Summary Free Text/Dictation Patient has been actively participating in physical therapy. No acute distress. Exam/Review of Systems Vital Signs Vitals Vital Signs Date Time Temp Pulse Resp B/P Pulse Ox O2 Delivery O2 Flow Rate FiO2 05/29/17 07:30 98.1 78 20 142/87 97 05/28/17 08:00 Room Air Intake and Output 05/28/17 05/28/17 05/29/17 15:00 23:00 07:00 Intake Total 810 ml Balance 810 ml Exam General: Well developed,adequately built, not in any acute distress . HEENT: Normocephalic, Atraumatic, No laceration or hematoma; Eyes: PEERL, Conjunctiva clear, Anicteric sclera Neck: Supple without any lymphadenopathy, nontender, no JVD, no carotid bruits, trachea midline, no thyromegaly Cardiac: S1, S2 auscultated, regular rhythm and rate, no mumurs or gallop Pulmonary: Normal respiratory effort. Chest clear to auscultation bilaterally, no adventitious breath sounds GI: Abdomen normal to inspection. Soft, non tender, non- distended, no masses, no rebound tenderness or guarding. Bowel sounds active on all four quadrants Genitourinary: Deferred Extremities: Flaccid left upper extremities, left lower extremity with 4 out of 5. Full range of motion on right upper and lower. No cyanosis, clubbing, or edema. Pulses [2+] bilaterally. Neurologic: Alert to person, place, time, and situation. Affect appropriate, intact sensation. Skin: Clean,dry, and intact. No ecchymosis, no rashes, or lesions Results Result Diagram: 05/27/17 0703 05/27/17 0703 Results 24 hrs Laboratory Tests Test 05/28/17 12:15 05/28/17 16:57 05/28/17 20:27 05/29/17 02:11 Bedside Glucose 110 190 220 205 Test 05/29/17 07:43 Bedside Glucose 145 Medications Medications Current Medications Ondansetron HCl (Zofran Inj) 4 mg Q6H PRN IV NAUSEA AND/OR VOMITING; Start at 21:00 Acetaminophen (Tylenol Tab) 650 mg Q6H PRN PO PAIN LEVEL 1-3 OR FEVER; Start at 20:50 Famotidine (Pepcid) 20 mg DAILY PO Last administered on 05/29/17 08:08; Admin Dose 20 MG; Start 05/27/17 at 09:00 Diagnostic Test (Pha) (Accu-Chek) 1 ea 02 XX Last administered on 05/29/17 02: 13; Admin Dose 1 EA; Start 05/27/17 at 02:00 Miscellaneous Information 1 ea NOTE XX ; Start 05/27/17 at 09:00 Glucose (Glutose) 15 gm Q15M PRN PO DECREASED GLUCOSE; Start 05/26/17 at 20:53 Glucose (Glutose) 22.5 gm Q15M PRN PO DECREASED GLUCOSE; Start 05/26/17 at 20: 53 Dextrose (D50w Syringe) 25 ml Q15M PRN IV DECREASED GLUCOSE; Start 05/26/17 at 20:52 Dextrose (D50w Syringe) 50 ml Q15M PRN IV DECREASED GLUCOSE; Start 05/26/17 at 20:52 Glucagon (Glucagen) 1 mg Q15M PRN IM DECREASED GLUCOSE; Start 05/26/17 at 20:52 Glucose (Glutose) 15 gm Q15M PRN BUCCAL DECREASED GLUCOSE; Start 05/27/17 at 20 :53 Atorvastatin Calcium (Lipitor) 80 mg HS PO Last administered on 05/28/17 20:54 ; Admin Dose 80 MG; Start 05/26/17 at 21:00 Aspirin (Aspirin) 81 mg DAILY PO Last administered on 05/29/17 08:08; Admin Dose 81 MG; Start 05/27/17 at 09:00 Clopidogrel Bisulfate (plaVIX) 75 mg DAILY PO Last administered on 05/29/17 08 :08; Admin Dose 75 MG; Start 05/27/17 at 09:00 Levetiracetam (Keppra) 500 mg BID PO Last administered on 05/29/17 08:08; Admin Dose 500 MG; Start 05/26/17 at 21:00 Tamsulosin HCl (Flomax) 0.4 mg HS PO Last administered on 05/28/17 20:54; Admin Dose 0.4 MG; Start 05/26/17 at 21:00 Insulin Glargine (Lantus) 20 unit HS SC Last administered on 05/28/17 20:58; Admin Dose 20 UNIT; Start 05/26/17 at 21:00 Hydralazine HCl (Apresoline) 10 mg Q8 PO Last administered on 05/29/17 06:06; Admin Dose 10 MG; Start 05/26/17 at 22:00 Hydralazine HCl (Apresoline) 10 mg Q4H PRN IV Hypertension; Start 05/26/17 at 20:54 Lorazepam (Ativan) 0.5 mg HS PRN PO ANXIETY Last administered on 05/28/17 01: 37; Admin Dose 0.5 MG; Start 05/26/17 at 20:58 Zolpidem Tartrate (Ambien) 5 mg HS PRN PO INSOMNIA Last administered on 21:02; Admin Dose 5 MG; Start 05/26/17 at 22:30 Losartan Potassium (Cozaar) 50 mg DAILY PO Last administered on 05/29/17 08:08 ; Admin Dose 50 MG; Start 05/27/17 at 09:00 Bisacodyl (Dulcolax Supp) 10 mg DAILY PRN [place] CONSTIPATION; Start 05/27/17 at 04 :30 Magnesium Hydroxide (Milk Of Mag) 30 ml BID PRN PO CONSTIPATION; Start at 04:30 Lactulose (Enulose) 20 gm DAILY PRN PO CONSTIPATION; Start 05/27/17 at 04:30 LITA CHAVARRIA NP May 29, 2017 11:41
--- NOTE | 2017-05-29 11:52 | PN ---
Date/Time of Note Date/Time of Note DATE: 05/29/17 TIME: 11:50 Assessment/Plan VTE Prophylaxis VTE Prophylaxis Intervention: other Lines/Catheters IV Catheter Type (from [facility]): Saline Lock Urinary Cath still in place: No Assessment/Plan Chief Complaint/Hosp Course renal follow up SUBJECTIVE DATA: Transferred to ARU on 05/26 No nausea, vomiting, chest pain, dypsnea. has good uop. No hemoptysis, hematemesis, hematochezia. d/w Dr Bah acute component of renal failure resolved good uop since linares was removed OBJECTIVE DATA: HEENT: Head is normocephalic. NECK: Supple. HEART: Regular rate. LUNGS: Diminished breath sounds at the base. ABDOMEN: Soft, nontender to palpation. No rebound or guarding. EXTREMITIES: Negative for clubbing, cyanosis, no edema. DERMATOLOGIC: Clean. No rashes. MUSCULOSKELETAL: No joint effusion. NEUROLOGIC: No change in exam. 1. Nonoliguric acute kidney injury on top of chronic kidney disease stage IIIB. Etiology of acute kidney injury secondary to hemodynamics. Renal function is improving slowly. At this point will continue current treatment. will check pth and serum vit d panel Supportive care. Renally dose all meds. 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 OK to use low dose ARB for now. will up titrate as tolerated 2. Chronic kidney disease likely from diabetic nephropathy. 3. Orthostatic hypotension. Etiology may be secondary to volume depletion versus neurogenic from recent cerebrovascular accident. Will monitor closely. Consider gentle fluid challenge. 4. Mineral bone disorder. Monitor calcium and phosphorus levels. 5. Acute cerebrovascular accident. Continue medical management. 6. Coronary disease. Continue current treatment plan. 7. Gastrointestinal and deep venous thrombosis prophylaxis. Problems: Exam/Review of Systems Vital Signs Vitals Vital Signs Date Time Temp Pulse Resp B/P Pulse Ox O2 Delivery O2 Flow Rate FiO2 05/29/17 07:30 98.1 78 20 142/87 97 05/28/17 08:00 Room Air Intake and Output 05/28/17 05/28/17 05/29/17 15:00 23:00 07:00 Intake Total 810 ml Balance 810 ml Results Result Diagram: 05/27/17 0703 05/27/17 0703 Results 24 hrs Laboratory Tests Test 05/28/17 12:15 05/28/17 16:57 05/28/17 20:27 05/29/17 02:11 Bedside Glucose 110 190 220 205 Test 05/29/17 07:43 Bedside Glucose 145 Medications Medications Current Medications Ondansetron HCl (Zofran Inj) 4 mg Q6H PRN IV NAUSEA AND/OR VOMITING; Start at 21:00 Acetaminophen (Tylenol Tab) 650 mg Q6H PRN PO PAIN LEVEL 1-3 OR FEVER; Start at 20:50 Famotidine (Pepcid) 20 mg DAILY PO Last administered on 05/29/17 08:08; Admin Dose 20 MG; Start 05/27/17 at 09:00 Diagnostic Test (Pha) (Accu-Chek) 1 ea 02 XX Last administered on 05/29/17 02: 13; Admin Dose 1 EA; Start 05/27/17 at 02:00 Miscellaneous Information 1 ea NOTE XX ; Start 05/27/17 at 09:00 Glucose (Glutose) 15 gm Q15M PRN PO DECREASED GLUCOSE; Start 05/26/17 at 20:53 Glucose (Glutose) 22.5 gm Q15M PRN PO DECREASED GLUCOSE; Start 05/26/17 at 20: 53 Dextrose (D50w Syringe) 25 ml Q15M PRN IV DECREASED GLUCOSE; Start 05/26/17 at 20:52 Dextrose (D50w Syringe) 50 ml Q15M PRN IV DECREASED GLUCOSE; Start 05/26/17 at 20:52 Glucagon (Glucagen) 1 mg Q15M PRN IM DECREASED GLUCOSE; Start 05/26/17 at 20:52 Glucose (Glutose) 15 gm Q15M PRN BUCCAL DECREASED GLUCOSE; Start 05/27/17 at 20 :53 Atorvastatin Calcium (Lipitor) 80 mg HS PO Last administered on 05/28/17 20:54 ; Admin Dose 80 MG; Start 05/26/17 at 21:00 Aspirin (Aspirin) 81 mg DAILY PO Last administered on 05/29/17 08:08; Admin Dose 81 MG; Start 05/27/17 at 09:00 Clopidogrel Bisulfate (plaVIX) 75 mg DAILY PO Last administered on 05/29/17 08 :08; Admin Dose 75 MG; Start 05/27/17 at 09:00 Levetiracetam (Keppra) 500 mg BID PO Last administered on 05/29/17 08:08; Admin Dose 500 MG; Start 05/26/17 at 21:00 Tamsulosin HCl (Flomax) 0.4 mg HS PO Last administered on 05/28/17 20:54; Admin Dose 0.4 MG; Start 05/26/17 at 21:00 Insulin Glargine (Lantus) 20 unit HS SC Last administered on 05/28/17 20:58; Admin Dose 20 UNIT; Start 05/26/17 at 21:00 Hydralazine HCl (Apresoline) 10 mg Q8 PO Last administered on 05/29/17 06:06; Admin Dose 10 MG; Start 05/26/17 at 22:00 Hydralazine HCl (Apresoline) 10 mg Q4H PRN IV Hypertension; Start 05/26/17 at 20:54 Lorazepam (Ativan) 0.5 mg HS PRN PO ANXIETY Last administered on 05/28/17 01: 37; Admin Dose 0.5 MG; Start 05/26/17 at 20:58 Zolpidem Tartrate (Ambien) 5 mg HS PRN PO INSOMNIA Last administered on 21:02; Admin Dose 5 MG; Start 05/26/17 at 22:30 Losartan Potassium (Cozaar) 50 mg DAILY PO Last administered on 05/29/17 08:08 ; Admin Dose 50 MG; Start 05/27/17 at 09:00 Bisacodyl (Dulcolax Supp) 10 mg DAILY PRN [place] CONSTIPATION; Start 05/27/17 at 04 :30 Magnesium Hydroxide (Milk Of Mag) 30 ml BID PRN PO CONSTIPATION; Start at 04:30 Lactulose (Enulose) 20 gm DAILY PRN PO CONSTIPATION; Start 05/27/17 at 04:30 NUVIA CIFUENTES DO May 29, 2017 11:52
[2017-05-29] MEDS ORDERED: AMLODIPINE 5 MG TAB PO STA (19:33)
[2017-05-29] MEDS: ATORVASTATIN 80 MG TAB PO SCH (20:48)
[2017-05-29] MEDS: TAMSULOSIN (SR) 0.4 MG CAP PO SCH (20:49)
[2017-05-29] MEDS: INSULIN GLARGINE [LANtus] 3 ML PEN SC SCH (20:55)
[2017-05-30 02:00] VITALS: BP 140/78; RESP 18
[2017-05-30] MEDS: ACCU-CHEK XX SCH (02:00)
[2017-05-30] MEDS: INSULIN ASPART [NOVOLOG] 3 ML PEN SC SCH ×4 (07:35→20:57)
[2017-05-30 07:36] VITALS: BP 145/75; RESP 18
[2017-05-30 07:51] LABS: BASOPHIL # 0.1 10^3/ul (0.0-0.1); BASOPHILS % 0.9 % (0.0-2.0); EOSINOPHILS # 0.3 10^3/ul (0.0-0.5); EOSINOPHILS % 4.6 % (0.0-7.0); HEMOGLOBIN 12.7 g/dl (14.0-18.0); LYMPHOCYTES # 1.6 10^3/ul (0.8-2.9); MEAN CORPUSCULAR HEMOGLOBIN 30.1 pg (29.0-33.0); MEAN CORPUSCULAR HGB CONC 35.3 g/dl (32.0-37.0); MEAN CORPUSCULAR VOLUME 85.3 fl (82.0-101.0); MEAN PLATELET VOLUME 11.2 fl (7.4-10.4); MONOCYTE # 0.4 10^3/ul (0.3-0.9); MONOCYTES % 7.8 % (0.0-11.0); NEUTROPHILS % 57.3 % (39.0-77.0); PLATELET COUNT 165 10^3/UL (140-415); RED BLOOD COUNT 4.22 10^6/ul (4.70-6.10); RED CELL DISTRIBUTION WIDTH 12.4 % (11.5-14.5); WHITE BLOOD COUNT 5.6 10^3/ul (4.8-10.8)
[2017-05-30 08:14] LABS: CALCIUM 9.3 mg/dl (8.4-10.2); CREATININE 2.45 mg/dl (0.61-1.24); PHOSPHORUS 4.1 mg/dl (2.5-4.9); POTASSIUM 3.9 mmol/L (3.5-5.1)
[2017-05-30] MEDS: AMLODIPINE 5 MG TAB PO SCH ×2 (09:00→13:06)
[2017-05-30] MEDS: LEVETIRACETAM 500 MG TAB PO SCH ×2 (09:00→20:52)
[2017-05-30] MEDS: FAMOTIDINE 20 MG TAB PO SCH ×2 (09:00→13:04)
[2017-05-30] MEDS: ASPIRIN 81 MG TAB PO SCH (09:00)
[2017-05-30] MEDS: LOSARTAN 50 MG TAB PO SCH (09:00)
[2017-05-30] MEDS: CLOPIDOGREL 75 MG TAB PO SCH (09:00)
--- NOTE | 2017-05-30 11:44 | CONS ---
Date/Time of Note Date/Time of Note DATE: 05/30/17 TIME: 11:42 Consult Date/Type/Reason Admit Date/Time May 26, 2017 at 19:07 Subjective Patient comfortable Objective Moderate assist transfer Moderate assist 20 feet Vital Signs Date Time Temp Pulse Resp B/P Pulse Ox O2 Delivery O2 Flow Rate FiO2 05/30/17 07:36 98.3 69 18 145/75 97 05/28/17 08:00 Room Air Intake and Output 05/29/17 05/29/17 05/30/17 15:00 23:00 07:00 Intake Total 240 ml Output Total 369 ml Balance -369 ml 240 ml Results/Medications Result Diagram: 05/30/17 0638 05/30/17 0638 Results 24 hrs Laboratory Tests Test 05/29/17 12:06 05/29/17 17:33 05/29/17 20:46 05/30/17 06:38 Bedside Glucose 196 156 145 White Blood Count 5.6 Red Blood Count 4.22 L Hemoglobin 12.7 L Hematocrit 36.0 L Mean Corpuscular Volume 85.3 Mean Corpuscular Hemoglobin 30.1 Mean Corpuscular Hemoglobin Concent 35.3 Red Cell Distribution Width 12.4 Platelet Count 165 Mean Platelet Volume 11.2 H Neutrophils % 57.3 Lymphocytes % 29.0 Monocytes % 7.8 Eosinophils % 4.6 Basophils % 0.9 Nucleated Red Blood Cells % 0.0 Neutrophils # (Manual) 3 Lymphocytes # 1.6 Monocytes # 0.4 Eosinophils # 0.3 Basophils # 0.1 Nucleated Red Blood Cells # 0.0 Sodium Level 140 Potassium Level 3.9 Chloride Level 106 Carbon Dioxide Level 25 Anion Gap 13 Blood Urea Nitrogen 38 H Creatinine 2.45 H Glucose Level 99 Calcium Level 9.3 Phosphorus Level 4.1 Magnesium Level 2.0 Vitamin D 1,25-Dihydroxy 22.0 L Parathyroid Hormone (Intact) Test 05/30/17 07:49 Bedside Glucose 102 Medications Current Medications Ondansetron HCl (Zofran Inj) 4 mg Q6H PRN IV NAUSEA AND/OR VOMITING; Start at 21:00 Acetaminophen (Tylenol Tab) 650 mg Q6H PRN PO PAIN LEVEL 1-3 OR FEVER; Start at 20:50 Famotidine (Pepcid) 20 mg DAILY PO Last administered on 05/29/17t 08:08; Admin Dose 20 MG; Start 05/27/17 at 09:00 Diagnostic Test (Pha) (Accu-Chek) 1 ea 02 XX Last administered on 05/29/17 02: 13; Admin Dose 1 EA; Start 05/27/17 at 02:00 Miscellaneous Information 1 ea NOTE XX ; Start 05/27/17 at 09:00 Glucose (Glutose) 15 gm Q15M PRN PO DECREASED GLUCOSE; Start 05/26/17 at 20:53 Glucose (Glutose) 22.5 gm Q15M PRN PO DECREASED GLUCOSE; Start 05/26/17 at 20: 53 Dextrose (D50w Syringe) 25 ml Q15M PRN IV DECREASED GLUCOSE; Start 05/26/17 at 20:52 Dextrose (D50w Syringe) 50 ml Q15M PRN IV DECREASED GLUCOSE; Start 05/26/17 at 20:52 Glucagon (Glucagen) 1 mg Q15M PRN IM DECREASED GLUCOSE; Start 05/26/17 at 20:52 Glucose (Glutose) 15 gm Q15M PRN BUCCAL DECREASED GLUCOSE; Start 05/27/17 at 20 :53 Atorvastatin Calcium (Lipitor) 80 mg HS PO Last administered on 05/29/17 20:48 ; Admin Dose 80 MG; Start 05/26/17 at 21:00 Aspirin (Aspirin) 81 mg DAILY PO Last administered on 05/30/17 09:00; Admin Dose 81 MG; Start 05/27/17 at 09:00 Clopidogrel Bisulfate (plaVIX) 75 mg DAILY PO Last administered on 05/29/17 08 :08; Admin Dose 75 MG; Start 05/27/17 at 09:00 Levetiracetam (Keppra) 500 mg BID PO Last administered on 05/30/17 09:00; Admin Dose 500 MG; Start 05/26/17 at 21:00 Tamsulosin HCl (Flomax) 0.4 mg HS PO Last administered on 05/29/17 20:49; Admin Dose 0.4 MG; Start 05/26/17 at 21:00 Insulin Glargine (Lantus) 20 unit HS SC Last administered on 05/29/17 20:55; Admin Dose 20 UNIT; Start 05/26/17 at 21:00 Hydralazine HCl (Apresoline) 10 mg Q8 PO Last administered on 05/30/17 06:40; Admin Dose 10 MG; Start 05/26/17 at 22:00 Lorazepam (Ativan) 0.5 mg HS PRN PO ANXIETY Last administered on 05/28/17 01: 37; Admin Dose 0.5 MG; Start 05/26/17 at 20:58 Zolpidem Tartrate (Ambien) 5 mg HS PRN PO INSOMNIA Last administered on 21:02; Admin Dose 5 MG; Start 05/26/17 at 22:30 Losartan Potassium (Cozaar) 50 mg DAILY PO Last administered on 05/29/17 08:08 ; Admin Dose 50 MG; Start 05/27/17 at 09:00 Bisacodyl (Dulcolax Supp) 10 mg DAILY PRN [place] CONSTIPATION; Start 05/27/17 at 04 :30 Magnesium Hydroxide (Milk Of Mag) 30 ml BID PRN PO CONSTIPATION; Start at 04:30 Lactulose (Enulose) 20 gm DAILY PRN PO CONSTIPATION; Start 05/27/17 at 04:30 Amlodipine Besylate (Norvasc) 5 mg DAILY PO ; Start 05/30/17 at 09:00 Clonidine (Catapres) 0.1 mg Q4H PRN PO SBP > 170, DBP > 95; Start 05/29/17 at 20:00 Assessment/Plan Additional Assessment/Plan Rehabilitation-Right pontine lacunar infarct CVA with left-sided weakness. Excellent progress with rehab treatment plan Hypertension. Diabetes mellitus. Seizure disorder. History of DVT. Hyperlipidemia. History of pacemaker. ANDREA ALAS MD May 30, 2017 11:44
--- NOTE | 2017-05-30 13:51 | CONS ---
Date/Time of Note Date/Time of Note DATE: 05/30/17 TIME: 13:50 Assessment/Plan Assessment/Plan Chief Complaint/Hosp Course 1. 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 -Continue aspirin, Plavix and statin. -Continue with rehabilitative exercise for mobility enhancement. 2. Essential hypertension with hypertensive urgency. Now stable. -Continue Norvasc, Hydralazine and Losartan. 3. Type 2 diabetes. -Continue with Accu-Cheks with ISS and Lantus insulin 4. Seizure disorder. Stable. -Continue Keppra 5. Dyslipidemia. -On statin 4. History of coronary artery disease -Continue current medical management 5. Debility -Continue with physical therapy. 6. BPH -On Flomax 7. Chronic kidney disease stage III. -Monitor renal function closely and renally dose medications. Follow-up with nephrology recommendations. Overall, patient with excellent participation with ARU activities. Case discussed with Problems: Consultation Date/Type/Reason Admit Date/Time May 26, 2017 at 19:07 24 HR Interval Summary Free Text/Dictation Had hypertensive episodes. Started on Norvasc with good response.Patient has been participating in physical therapy activities. Exam/Review of Systems Vital Signs Vitals Vital Signs Date Time Temp Pulse Resp B/P Pulse Ox O2 Delivery O2 Flow Rate FiO2 05/30/17 07:36 98.3 69 18 145/75 97 05/28/17 08:00 Room Air Intake and Output 05/29/17 05/29/17 05/30/17 14:59 22:59 06:59 Intake Total 240 ml Output Total 369 ml Balance -369 ml 240 ml Exam General: Well developed,adequately built, not in any acute distress . HEENT: Normocephalic, Atraumatic, No laceration or hematoma; Eyes: PEERL, Conjunctiva clear, Anicteric sclera Neck: Supple without any lymphadenopathy, nontender, no JVD, no carotid bruits, trachea midline, no thyromegaly Cardiac: S1, S2 auscultated, regular rhythm and rate, no mumurs or gallop Pulmonary: Normal respiratory effort. Chest clear to auscultation bilaterally, no adventitious breath sounds GI: Abdomen normal to inspection. Soft, non tender, non- distended, no masses, no rebound tenderness or guarding. Bowel sounds active on all four quadrants Genitourinary: Deferred Extremities: Flaccid left upper extremities, left lower extremity with 4 out of 5. Full range of motion on right upper and lower. No cyanosis, clubbing, or edema. Pulses [2+] bilaterally. Neurologic: Alert to person, place, time, and situation. Affect appropriate, intact sensation. Skin: Clean,dry, and intact. No ecchymosis, no rashes, or lesions Results Result Diagram: 05/30/17 0638 05/30/17 0638 Results 24 hrs Laboratory Tests Test 05/29/17 17:33 05/29/17 20:46 05/30/17 06:38 05/30/17 07:49 Bedside Glucose 156 145 102 White Blood Count 5.6 Red Blood Count 4.22 L Hemoglobin 12.7 L Hematocrit 36.0 L Mean Corpuscular Volume 85.3 Mean Corpuscular Hemoglobin 30.1 Mean Corpuscular Hemoglobin Concent 35.3 Red Cell Distribution Width 12.4 Platelet Count 165 Mean Platelet Volume 11.2 H Neutrophils % 57.3 Lymphocytes % 29.0 Monocytes % 7.8 Eosinophils % 4.6 Basophils % 0.9 Nucleated Red Blood Cells % 0.0 Neutrophils # (Manual) 3 Lymphocytes # 1.6 Monocytes # 0.4 Eosinophils # 0.3 Basophils # 0.1 Nucleated Red Blood Cells # 0.0 Sodium Level 140 Potassium Level 3.9 Chloride Level 106 Carbon Dioxide Level 25 Anion Gap 13 Blood Urea Nitrogen 38 H Creatinine 2.45 H Glucose Level 99 Calcium Level 9.3 Phosphorus Level 4.1 Magnesium Level 2.0 Vitamin D 1,25-Dihydroxy 22.0 L Parathyroid Hormone (Intact) Test 05/30/17 12:13 Bedside Glucose 178 Medications Medications Current Medications Ondansetron HCl (Zofran Inj) 4 mg Q6H PRN IV NAUSEA AND/OR VOMITING; Start at 21:00 Acetaminophen (Tylenol Tab) 650 mg Q6H PRN PO PAIN LEVEL 1-3 OR FEVER; Start at 20:50 Famotidine (Pepcid) 20 mg DAILY PO Last administered on 05/30/17 13:04; Admin Dose 20 MG; Start 05/27/17 at 09:00 Diagnostic Test (Pha) (Accu-Chek) 1 ea 02 XX Last administered on 05/29/17 02: 13; Admin Dose 1 EA; Start 05/27/17 at 02:00 Miscellaneous Information 1 ea NOTE XX ; Start 05/27/17 at 09:00 Glucose (Glutose) 15 gm Q15M PRN PO DECREASED GLUCOSE; Start 05/26/17 at 20:53 Glucose (Glutose) 22.5 gm Q15M PRN PO DECREASED GLUCOSE; Start 05/26/17 at 20: 53 Dextrose (D50w Syringe) 25 ml Q15M PRN IV DECREASED GLUCOSE; Start 05/26/17 at 20:52 Dextrose (D50w Syringe) 50 ml Q15M PRN IV DECREASED GLUCOSE; Start 05/26/17 at 20:52 Glucagon (Glucagen) 1 mg Q15M PRN IM DECREASED GLUCOSE; Start 05/26/17 at 20:52 Glucose (Glutose) 15 gm Q15M PRN BUCCAL DECREASED GLUCOSE; Start 05/27/17 at 20 :53 Atorvastatin Calcium (Lipitor) 80 mg HS PO Last administered on 05/29/17 20:48 ; Admin Dose 80 MG; Start 05/26/17 at 21:00 Aspirin (Aspirin) 81 mg DAILY PO Last administered on 05/30/17 09:00; Admin Dose 81 MG; Start 05/27/17 at 09:00 Clopidogrel Bisulfate (plaVIX) 75 mg DAILY PO Last administered on 05/29/17 08 :08; Admin Dose 75 MG; Start 05/27/17 at 09:00 Levetiracetam (Keppra) 500 mg BID PO Last administered on 05/30/17 09:00; Admin Dose 500 MG; Start 05/26/17 at 21:00 Tamsulosin HCl (Flomax) 0.4 mg HS PO Last administered on 05/29/17 20:49; Admin Dose 0.4 MG; Start 05/26/17 at 21:00 Insulin Glargine (Lantus) 20 unit HS SC Last administered on 05/29/17 20:55; Admin Dose 20 UNIT; Start 05/26/17 at 21:00 Hydralazine HCl (Apresoline) 10 mg Q8 PO Last administered on 05/30/17 13:05; Admin Dose 10 MG; Start 05/26/17 at 22:00 Lorazepam (Ativan) 0.5 mg HS PRN PO ANXIETY Last administered on 05/28/17 01: 37; Admin Dose 0.5 MG; Start 05/26/17 at 20:58 Zolpidem Tartrate (Ambien) 5 mg HS PRN PO INSOMNIA Last administered on 21:02; Admin Dose 5 MG; Start 05/26/17 at 22:30 Losartan Potassium (Cozaar) 50 mg DAILY PO Last administered on 05/29/17 08:08 ; Admin Dose 50 MG; Start 05/27/17 at 09:00 Bisacodyl (Dulcolax Supp) 10 mg DAILY PRN [place] CONSTIPATION; Start 05/27/17 at 04 :30 Magnesium Hydroxide (Milk Of Mag) 30 ml BID PRN PO CONSTIPATION; Start at 04:30 Lactulose (Enulose) 20 gm DAILY PRN PO CONSTIPATION; Start 05/27/17 at 04:30 Amlodipine Besylate (Norvasc) 5 mg DAILY PO Last administered on 05/30/17 13: 06; Admin Dose 5 MG; Start 05/30/17 at 09:00 Clonidine (Catapres) 0.1 mg Q4H PRN PO SBP > 170, DBP > 95; Start 05/29/17 at 20:00 LITA CHAVARRIA NP May 30, 2017 13:51
--- NOTE | 2017-05-30 15:46 | PN ---
Date/Time of Note Date/Time of Note DATE: 05/30/17 TIME: 15:46 Assessment/Plan VTE Prophylaxis VTE Prophylaxis Intervention: other Lines/Catheters [facility] Saline Lock Urinary Cath still in place: No Assessment/Plan Chief Complaint/Hosp Course renal follow up SUBJECTIVE DATA: Transferred to ARU on 05/26 No nausea, vomiting, chest pain, dypsnea. has good uop. No hemoptysis, hematemesis, hematochezia. d/w Dr Bah acute component of renal failure resolved good uop since linares was removed OBJECTIVE DATA: HEENT: Head is normocephalic. NECK: Supple. HEART: Regular rate. LUNGS: Diminished breath sounds at the base. ABDOMEN: Soft, nontender to palpation. No rebound or guarding. EXTREMITIES: Negative for clubbing, cyanosis, no edema. DERMATOLOGIC: Clean. No rashes. MUSCULOSKELETAL: No joint effusion. NEUROLOGIC: No change in exam. 1. Nonoliguric acute kidney injury on top of chronic kidney disease stage IIIB. Etiology of acute kidney injury secondary to hemodynamics. Renal function is improving slowly. At this point will continue current treatment. pth and serum vit d panel are pending Supportive care. Renally dose all meds. 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 OK to use low dose ARB for now. will up titrate as tolerated 2. Chronic kidney disease likely from diabetic nephropathy. 3. Orthostatic hypotension. Etiology may be secondary to volume depletion versus neurogenic from recent cerebrovascular accident. Will monitor closely. Consider gentle fluid challenge. 4. Mineral bone disorder. Monitor calcium and phosphorus levels. 5. Acute cerebrovascular accident. Continue medical management. 6. Coronary disease. Continue current treatment plan. 7. Gastrointestinal and deep venous thrombosis prophylaxis. Problems: Exam/Review of Systems Vital Signs Vitals Vital Signs Date Time Temp Pulse Resp B/P Pulse Ox O2 Delivery O2 Flow Rate FiO2 05/30/17 07:36 98.3 69 18 145/75 97 05/28/17 08:00 Room Air Intake and Output 05/29/17 05/29/17 05/30/17 15:00 23:00 07:00 Intake Total 240 ml Output Total 369 ml Balance -369 ml 240 ml Results Result Diagram: 05/30/17 0638 05/30/17 0638 Results 24 hrs Laboratory Tests Test 05/29/17 17:33 05/29/17 20:46 05/30/17 06:38 05/30/17 07:49 Bedside Glucose 156 145 102 White Blood Count 5.6 Red Blood Count 4.22 L Hemoglobin 12.7 L Hematocrit 36.0 L Mean Corpuscular Volume 85.3 Mean Corpuscular Hemoglobin 30.1 Mean Corpuscular Hemoglobin Concent 35.3 Red Cell Distribution Width 12.4 Platelet Count 165 Mean Platelet Volume 11.2 H Neutrophils % 57.3 Lymphocytes % 29.0 Monocytes % 7.8 Eosinophils % 4.6 Basophils % 0.9 Nucleated Red Blood Cells % 0.0 Neutrophils # (Manual) 3 Lymphocytes # 1.6 Monocytes # 0.4 Eosinophils # 0.3 Basophils # 0.1 Nucleated Red Blood Cells # 0.0 Sodium Level 140 Potassium Level 3.9 Chloride Level 106 Carbon Dioxide Level 25 Anion Gap 13 Blood Urea Nitrogen 38 H Creatinine 2.45 H Glucose Level 99 Calcium Level 9.3 Phosphorus Level 4.1 Magnesium Level 2.0 Vitamin D 1,25-Dihydroxy 22.0 L Parathyroid Hormone (Intact) Test 05/30/17 12:13 Bedside Glucose 178 Medications Medications Current Medications Ondansetron HCl (Zofran Inj) 4 mg Q6H PRN IV NAUSEA AND/OR VOMITING; Start at 21:00 Acetaminophen (Tylenol Tab) 650 mg Q6H PRN PO PAIN LEVEL 1-3 OR FEVER; Start at 20:50 Famotidine (Pepcid) 20 mg DAILY PO Last administered on 05/30/17 13:04; Admin Dose 20 MG; Start 05/27/17 at 09:00 Diagnostic Test (Pha) (Accu-Chek) 1 ea 02 XX Last administered on 05/29/17 02: 13; Admin Dose 1 EA; Start 05/27/17 at 02:00 Miscellaneous Information 1 ea NOTE XX ; Start 05/27/17 at 09:00 Glucose (Glutose) 15 gm Q15M PRN PO DECREASED GLUCOSE; Start 05/26/17 at 20:53 Glucose (Glutose) 22.5 gm Q15M PRN PO DECREASED GLUCOSE; Start 05/26/17 at 20: 53 Dextrose (D50w Syringe) 25 ml Q15M PRN IV DECREASED GLUCOSE; Start 05/26/17 at 20:52 Dextrose (D50w Syringe) 50 ml Q15M PRN IV DECREASED GLUCOSE; Start 05/26/17 at 20:52 Glucagon (Glucagen) 1 mg Q15M PRN IM DECREASED GLUCOSE; Start 05/26/17 at 20:52 Glucose (Glutose) 15 gm Q15M PRN BUCCAL DECREASED GLUCOSE; Start 05/27/17 at 20 :53 Atorvastatin Calcium (Lipitor) 80 mg HS PO Last administered on 05/29/17 20:48 ; Admin Dose 80 MG; Start 05/26/17 at 21:00 Aspirin (Aspirin) 81 mg DAILY PO Last administered on 05/30/17 09:00; Admin Dose 81 MG; Start 05/27/17 at 09:00 Clopidogrel Bisulfate (plaVIX) 75 mg DAILY PO Last administered on 05/29/17 08 :08; Admin Dose 75 MG; Start 05/27/17 at 09:00 Levetiracetam (Keppra) 500 mg BID PO Last administered on 05/30/17 09:00; Admin Dose 500 MG; Start 05/26/17 at 21:00 Tamsulosin HCl (Flomax) 0.4 mg HS PO Last administered on 05/29/17 20:49; Admin Dose 0.4 MG; Start 05/26/17 at 21:00 Insulin Glargine (Lantus) 20 unit HS SC Last administered on 05/29/17 20:55; Admin Dose 20 UNIT; Start 05/26/17 at 21:00 Hydralazine HCl (Apresoline) 10 mg Q8 PO Last administered on 05/30/17 13:05; Admin Dose 10 MG; Start 05/26/17 at 22:00 Lorazepam (Ativan) 0.5 mg HS PRN PO ANXIETY Last administered on 05/28/17 01: 37; Admin Dose 0.5 MG; Start 05/26/17 at 20:58 Zolpidem Tartrate (Ambien) 5 mg HS PRN PO INSOMNIA Last administered on 21:02; Admin Dose 5 MG; Start 05/26/17 at 22:30 Losartan Potassium (Cozaar) 50 mg DAILY PO Last administered on 05/29/17 08:08 ; Admin Dose 50 MG; Start 05/27/17 at 09:00 Bisacodyl (Dulcolax Supp) 10 mg DAILY PRN [place] CONSTIPATION; Start 05/27/17 at 04 :30 Magnesium Hydroxide (Milk Of Mag) 30 ml BID PRN PO CONSTIPATION; Start at 04:30 Lactulose (Enulose) 20 gm DAILY PRN PO CONSTIPATION; Start 05/27/17 at 04:30 Amlodipine Besylate (Norvasc) 5 mg DAILY PO Last administered on 05/30/17t 13: 06; Admin Dose 5 MG; Start 05/30/17 at 09:00 Clonidine (Catapres) 0.1 mg Q4H PRN PO SBP > 170, DBP > 95; Start 05/29/17 at 20:00 NUVIA CIFUENTES DO May 30, 2017 15:46
[2017-05-30 20:00] VITALS: BP 154/78; RESP 18
[2017-05-30] MEDS: TAMSULOSIN (SR) 0.4 MG CAP PO SCH (20:52)
[2017-05-30] MEDS: ATORVASTATIN 80 MG TAB PO SCH (20:52)
[2017-05-30] MEDS: INSULIN GLARGINE [LANtus] 3 ML PEN SC SCH (20:56)
[2017-05-31 01:49] VITALS: BP 138/82; RESP 18
[2017-05-31] MEDS: ACCU-CHEK XX SCH (02:29)
[2017-05-31] MEDS: INSULIN ASPART [NOVOLOG] 3 ML PEN SC SCH ×4 (07:35→21:17)
[2017-05-31] MEDS: FAMOTIDINE 20 MG TAB PO SCH (08:39)
[2017-05-31] MEDS: AMLODIPINE 5 MG TAB PO SCH (08:39)
[2017-05-31] MEDS: CLOPIDOGREL 75 MG TAB PO SCH (08:39)
[2017-05-31] MEDS: LEVETIRACETAM 500 MG TAB PO SCH ×2 (08:39→21:09)
[2017-05-31] MEDS: LOSARTAN 50 MG TAB PO SCH (08:39)
[2017-05-31] MEDS: ASPIRIN 81 MG TAB PO SCH (08:40)
--- NOTE | 2017-05-31 12:18 | CONS ---
Date/Time of Note Date/Time of Note DATE: 05/31/17 TIME: 12:18 Consult Date/Type/Reason Admit Date/Time May 26, 2017 at 19:07 Subjective No new complaints Objective Lungs clear abdomen soft Contact-guard assist transfer Vital Signs Date Time Temp Pulse Resp B/P Pulse Ox O2 Delivery O2 Flow Rate FiO2 05/31/17 01:49 97.8 70 18 138/82 95 05/28/17 08:00 Room Air Intake and Output 05/30/17 05/30/17 05/31/17 14:59 22:59 06:59 Intake Total 800 ml 700 ml 180 ml Balance 800 ml 700 ml 180 ml Results/Medications Result Diagram: 05/30/17 0638 05/30/17 0638 Results 24 hrs Laboratory Tests Test 05/30/17 17:41 05/30/17 20:50 05/31/17 02:14 05/31/17 07:48 Bedside Glucose 145 238 H 193 95 Test 05/31/17 12:02 Bedside Glucose 147 Medications Current Medications Ondansetron HCl (Zofran Inj) 4 mg Q6H PRN IV NAUSEA AND/OR VOMITING; Start at 21:00 Acetaminophen (Tylenol Tab) 650 mg Q6H PRN PO PAIN LEVEL 1-3 OR FEVER; Start at 20:50 Famotidine (Pepcid) 20 mg DAILY PO Last administered on 05/31/17 08:39; Admin Dose 20 MG; Start 05/27/17 at 09:00 Diagnostic Test (Pha) (Accu-Chek) 1 ea 02 XX Last administered on 05/31/17 02: 29; Admin Dose 1 EA; Start 05/27/17 at 02:00 Miscellaneous Information 1 ea NOTE XX ; Start 05/27/17 at 09:00 Glucose (Glutose) 15 gm Q15M PRN PO DECREASED GLUCOSE; Start 05/26/17 at 20:53 Glucose (Glutose) 22.5 gm Q15M PRN PO DECREASED GLUCOSE; Start 05/26/17 at 20: 53 Dextrose (D50w Syringe) 25 ml Q15M PRN IV DECREASED GLUCOSE; Start 05/26/17 at 20:52 Dextrose (D50w Syringe) 50 ml Q15M PRN IV DECREASED GLUCOSE; Start 05/26/17 at 20:52 Glucagon (Glucagen) 1 mg Q15M PRN IM DECREASED GLUCOSE; Start 05/26/17 at 20:52 Glucose (Glutose) 15 gm Q15M PRN BUCCAL DECREASED GLUCOSE; Start 05/27/17 at 20 :53 Atorvastatin Calcium (Lipitor) 80 mg HS PO Last administered on 05/30/17 20:52 ; Admin Dose 80 MG; Start 05/26/17 at 21:00 Aspirin (Aspirin) 81 mg DAILY PO Last administered on 05/31/17 08:40; Admin Dose 81 MG; Start 05/27/17 at 09:00 Clopidogrel Bisulfate (plaVIX) 75 mg DAILY PO Last administered on 05/31/17 08 :39; Admin Dose 75 MG; Start 05/27/17 at 09:00 Levetiracetam (Keppra) 500 mg BID PO Last administered on 05/31/17 08:39; Admin Dose 500 MG; Start 05/26/17 at 21:00 Tamsulosin HCl (Flomax) 0.4 mg HS PO Last administered on 05/30/17 20:52; Admin Dose 0.4 MG; Start 05/26/17 at 21:00 Insulin Glargine (Lantus) 20 unit HS SC Last administered on 05/30/17 20:56; Admin Dose 20 UNIT; Start 05/26/17 at 21:00 Hydralazine HCl (Apresoline) 10 mg Q8 PO Last administered on 05/31/17 05:28; Admin Dose 10 MG; Start 05/26/17 at 22:00 Lorazepam (Ativan) 0.5 mg HS PRN PO ANXIETY Last administered on 05/28/17 01: 37; Admin Dose 0.5 MG; Start 05/26/17 at 20:58 Zolpidem Tartrate (Ambien) 5 mg HS PRN PO INSOMNIA Last administered on 21:02; Admin Dose 5 MG; Start 05/26/17 at 22:30 Losartan Potassium (Cozaar) 50 mg DAILY PO Last administered on 05/31/17 08:39 ; Admin Dose 50 MG; Start 05/27/17 at 09:00 Bisacodyl (Dulcolax Supp) 10 mg DAILY PRN [place] CONSTIPATION; Start 05/27/17 at 04 :30 Magnesium Hydroxide (Milk Of Mag) 30 ml BID PRN PO CONSTIPATION; Start at 04:30 Lactulose (Enulose) 20 gm DAILY PRN PO CONSTIPATION; Start 05/27/17 at 04:30 Amlodipine Besylate (Norvasc) 5 mg DAILY PO Last administered on 05/31/17t 08: 39; Admin Dose 5 MG; Start 05/30/17 at 09:00 Clonidine (Catapres) 0.1 mg Q4H PRN PO SBP > 170, DBP > 95; Start 05/29/17 at 20:00 Assessment/Plan Additional Assessment/Plan Rehabilitation-Right pontine lacunar infarct CVA with left-sided weakness. Continued rehabilitative treatment gains Hypertension. Diabetes mellitus. Seizure disorder. History of DVT. Hyperlipidemia. History of pacemaker. ANDREA ALAS MD May 31, 2017 12:18
--- NOTE | 2017-05-31 13:34 | CONS ---
Date/Time of Note Date/Time of Note DATE: 05/31/17 TIME: 13:33 Assessment/Plan Assessment/Plan Chief Complaint/Hosp Course 1. 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 -Continue aspirin, Plavix and statin. -Continue with rehabilitative exercise for mobility enhancement. 2. Essential hypertension with hypertensive urgency. Now stable. -Continue Norvasc, Hydralazine and Losartan. 3. Type 2 diabetes. -Continue with Accu-Cheks with ISS and Lantus insulin 4. Seizure disorder. Stable. -Continue Keppra 5. Dyslipidemia. -On statin 4. History of coronary artery disease -Continue current medical management 5. Debility -Continue with physical therapy. 6. BPH -On Flomax 7. Chronic kidney disease stage III. -Monitor renal function closely and renally dose medications. Follow-up with nephrology recommendations. Case discussed with Problems: Consultation Date/Type/Reason Admit Date/Time May 26, 2017 at 19:07 24 HR Interval Summary Free Text/Dictation Patient has been actively participating in physical therapy. Exam/Review of Systems Vital Signs Vitals Vital Signs Date Time Temp Pulse Resp B/P Pulse Ox O2 Delivery O2 Flow Rate FiO2 05/31/17 01:49 97.8 70 18 138/82 95 05/28/17 08:00 Room Air Intake and Output 05/30/17 05/30/17 05/31/17 15:00 23:00 07:00 Intake Total 800 ml 700 ml 180 ml Balance 800 ml 700 ml 180 ml Exam General: Well developed,adequately built, not in any acute distress . HEENT: Normocephalic, Atraumatic, No laceration or hematoma; Eyes: PEERL, Conjunctiva clear, Anicteric sclera Neck: Supple without any lymphadenopathy, nontender, no JVD, no carotid bruits, trachea midline, no thyromegaly Cardiac: S1, S2 auscultated, regular rhythm and rate, no mumurs or gallop Pulmonary: Normal respiratory effort. Chest clear to auscultation bilaterally, no adventitious breath sounds GI: Abdomen normal to inspection. Soft, non tender, non- distended, no masses, no rebound tenderness or guarding. Bowel sounds active on all four quadrants Genitourinary: Deferred Extremities: Flaccid left upper extremities, left lower extremity with 4 out of 5. Full range of motion on right upper and lower. No cyanosis, clubbing, or edema. Pulses [2+] bilaterally. Neurologic: Alert to person, place, time, and situation. Affect appropriate, intact sensation. Skin: Clean,dry, and intact. No ecchymosis, no rashes, or lesions Results Result Diagram: 05/30/17 0638 05/30/17 0638 Results 24 hrs Laboratory Tests Test 05/30/17 17:41 05/30/17 20:50 05/31/17 02:14 05/31/17 07:48 Bedside Glucose 145 238 H 193 95 Test 05/31/17 12:02 Bedside Glucose 147 Medications Medications Current Medications Ondansetron HCl (Zofran Inj) 4 mg Q6H PRN IV NAUSEA AND/OR VOMITING; Start at 21:00 Acetaminophen (Tylenol Tab) 650 mg Q6H PRN PO PAIN LEVEL 1-3 OR FEVER; Start at 20:50 Famotidine (Pepcid) 20 mg DAILY PO Last administered on 05/31/17 08:39; Admin Dose 20 MG; Start 05/27/17 at 09:00 Diagnostic Test (Pha) (Accu-Chek) 1 ea 02 XX Last administered on 05/31/17 02: 29; Admin Dose 1 EA; Start 05/27/17 at 02:00 Miscellaneous Information 1 ea NOTE XX ; Start 05/27/17 at 09:00 Glucose (Glutose) 15 gm Q15M PRN PO DECREASED GLUCOSE; Start 05/26/17 at 20:53 Glucose (Glutose) 22.5 gm Q15M PRN PO DECREASED GLUCOSE; Start 05/26/17 at 20: 53 Dextrose (D50w Syringe) 25 ml Q15M PRN IV DECREASED GLUCOSE; Start 05/26/17 at 20:52 Dextrose (D50w Syringe) 50 ml Q15M PRN IV DECREASED GLUCOSE; Start 05/26/17 at 20:52 Glucagon (Glucagen) 1 mg Q15M PRN IM DECREASED GLUCOSE; Start 05/26/17 at 20:52 Glucose (Glutose) 15 gm Q15M PRN BUCCAL DECREASED GLUCOSE; Start 05/27/17 at 20 :53 Atorvastatin Calcium (Lipitor) 80 mg HS PO Last administered on 05/30/17 20:52 ; Admin Dose 80 MG; Start 05/26/17 at 21:00 Aspirin (Aspirin) 81 mg DAILY PO Last administered on 05/31/17 08:40; Admin Dose 81 MG; Start 05/27/17 at 09:00 Clopidogrel Bisulfate (plaVIX) 75 mg DAILY PO Last administered on 05/31/17 08 :39; Admin Dose 75 MG; Start 05/27/17 at 09:00 Levetiracetam (Keppra) 500 mg BID PO Last administered on 05/31/17 08:39; Admin Dose 500 MG; Start 05/26/17 at 21:00 Tamsulosin HCl (Flomax) 0.4 mg HS PO Last administered on 05/30/17 20:52; Admin Dose 0.4 MG; Start 05/26/17 at 21:00 Insulin Glargine (Lantus) 20 unit HS SC Last administered on 05/30/17 20:56; Admin Dose 20 UNIT; Start 05/26/17 at 21:00 Hydralazine HCl (Apresoline) 10 mg Q8 PO Last administered on 05/31/17 05:28; Admin Dose 10 MG; Start 05/26/17 at 22:00 Lorazepam (Ativan) 0.5 mg HS PRN PO ANXIETY Last administered on 05/28/17 01: 37; Admin Dose 0.5 MG; Start 05/26/17 at 20:58 Zolpidem Tartrate (Ambien) 5 mg HS PRN PO INSOMNIA Last administered on 21:02; Admin Dose 5 MG; Start 05/26/17 at 22:30 Losartan Potassium (Cozaar) 50 mg DAILY PO Last administered on 05/31/17 08:39 ; Admin Dose 50 MG; Start 05/27/17 at 09:00 Bisacodyl (Dulcolax Supp) 10 mg DAILY PRN [place] CONSTIPATION; Start 05/27/17 at 04 :30 Magnesium Hydroxide (Milk Of Mag) 30 ml BID PRN PO CONSTIPATION; Start at 04:30 Lactulose (Enulose) 20 gm DAILY PRN PO CONSTIPATION; Start 05/27/17 at 04:30 Amlodipine Besylate (Norvasc) 5 mg DAILY PO Last administered on 05/31/17 08: 39; Admin Dose 5 MG; Start 05/30/17 at 09:00 Clonidine (Catapres) 0.1 mg Q4H PRN PO SBP > 170, DBP > 95; Start 05/29/17 at 20:00 LITA CHAVARRIA NP May 31, 2017 13:34
[2017-05-31 20:00] VITALS: BP 122/68; RESP 18
[2017-05-31] MEDS: TAMSULOSIN (SR) 0.4 MG CAP PO SCH (21:09)
[2017-05-31] MEDS: ATORVASTATIN 80 MG TAB PO SCH (21:09)
[2017-05-31] MEDS: INSULIN GLARGINE [LANtus] 3 ML PEN SC SCH (21:16)
--- NOTE | 2017-05-31 21:20 | PN ---
DATE: 05/31/2017 SUBJECTIVE DATA: Patient is stable. No events overnight. No fevers, chills, nausea, vomiting. OBJECTIVE DATA: VITAL SIGNS: Blood pressure is 138/82, respiration 18, pulse 70, temperature 97.8. HEENT: Head is normocephalic. NECK: Supple. HEART: Regular rate. LUNGS: Diminished breath sounds at the base. ABDOMEN: Soft, nontender to palpation. No rebound or guarding. EXTREMITIES: Negative for clubbing, cyanosis, no edema. DERMATOLOGIC: No rashes. MUSCULOSKELETAL: No joint effusion. NEUROLOGIC: No change in exam. MEDICATIONS: Reviewed. LABORATORY AND DIAGNOSTIC DATA: Has been reviewed. No new labs. ASSESSMENT AND PLAN: 1. Nonoliguric acute kidney injury on top of chronic kidney disease stage IIIB. The etiology secondary to hemodynamics. Renal function slowly improved, obtained by previous baseline. At this point, continue current treatment. Supportive care. Renally dose all medications. 2. Chronic kidney disease secondary to diabetic nephropathy. The patient is currently in acute kidney injury as stated above. Continue medical management. Continue disease factor modification including glycemic and blood pressure control. Continue Cozaar. 3. Orthostatic hypotension. Etiology is likely neurogenic. 4. Cerebrovascular accident. Continue to monitor. 5. Mineral bone disorder. Monitor calcium and phosphorus levels. 6. Acute cerebrovascular accident. Continue medical management. 7. Coronary artery disease. Continue current treatment plan. 8. Gastrointestinal and deep venous thrombosis prophylaxis. Dictated By: Alex Bah DO /[email or web address]/sunshine /Document#: [id number]
[2017-06-01 02:00] VITALS: BP 124/72; RESP 18
[2017-06-01] MEDS: ACCU-CHEK XX SCH (02:39)
--- NOTE | 2017-06-01 04:56 | CONS ---
DATE OF ADMISSION: 05/26/2017 DATE OF CONSULTATION: 05/31/2017 TYPE OF CONSULTATION: Psychological. CONSULTING PSYCHOLOGIST: Luis A Jimenes, PhD. REASON FOR CONSULTATION: This consultation is requested by Dr. Aldridge in order to evaluate the cognitive and emotional functioning of this patient related to his present medical condition. HISTORY OF PRESENT ILLNESS: The patient is a 56-year-old male. He has a history of hypertension, diabetes, hyperlipidemia, and also has dysarthria. The patient was found to have left-sided weakness and an MRI demonstrated a right pontine lacunar infarct. The patient was cleared medically and then sent to the acute rehabilitation unit for acute multidisciplinary rehabilitation. Patient was very frustrated about all his medical problems. The patient is quite young to have all these medical problems and he is really frustrated by this. The patient is motivated to get better and does want to return to his previous level of functioning. FAMILY/SOCIAL HISTORY: The patient lives in an apartment in [place] with his and 32-year-old son. The patient does say that he wants to return home after discharge. MEDICATION: The patient is currently on: 1. Ativan 0.5 mg at bedtime p.r.n. 2. Ambien 5 mg at bedtime p.r.n. SUBSTANCE USE: The patient reports that he does not smoke. The patient also says he does not use alcohol or other drugs. MENTAL STATUS EXAMINATION: APPEARANCE: The patient was seen in his wheelchair. He appears to be of average height and weight. He is right handed. BEHAVIOR: The patient was cooperative during the consultation. The patient did attempt to answer all questions presented to him by the interviewer. MOOD AND AFFECT: Patient's mood appears to be somewhat nervous and depressed. The patient reports that this is accurate, that he does feel very nervous at the present time, because of all his medical problems. Affect does appear to be anxious. PERCEPTION: The patient reports no hallucinations or delusions. The patient was alert to person, place, situation, and time. MEMORY AND COGNITION: The patient's memory and cognition were slightly impaired but this is likely related to his present medical condition and stroke. The patient was able to say the name of the hospital. The patient was able to say the month and the year. The patient was able to say who the computer engineering professor is. He could not say who the governor of the state or the mayor of the [facility] is. The patient, however, was able to do 5 serial 7's subtractions from 100 without making a mistake. The patient could not spell world backwards, but this might relate to a language problem. INTELLIGENCE: Appears to fall in the average range. INSIGHT: Fair. JUDGMENT: Fair. THOUGHT CONTENT: The patient is concerned about his present medical condition. The patient is fearful that he will not be able to recover to his previous level of functioning. The patient does have numerous medical problems for somebody his age. The patient says that he is nervous and sad and this relates all his medical problems. DISCUSSION: The patient can likely benefit from some cognitive/behavioral psychotherapy while he is on the unit. The psychotherapy would focus on his underlying level of anxiety and depression related to all his medical problems. 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 Thank you very much, Dr. Aldirdge, for referring this individual. Please do not hesitate to call if you have additional questions. Dictated By: Luis A Jimenes, PHD /trini/robles /Document#: [id number]
[2017-06-01 07:30] VITALS: BP 147/70; RESP 20
[2017-06-01] MEDS: INSULIN ASPART [NOVOLOG] 3 ML PEN SC SCH ×4 (08:34→21:11)
[2017-06-01] MEDS: FAMOTIDINE 20 MG TAB PO SCH (08:35)
[2017-06-01] MEDS: AMLODIPINE 5 MG TAB PO SCH (08:35)
[2017-06-01] MEDS: ASPIRIN 81 MG TAB PO SCH (08:35)
[2017-06-01] MEDS: CLOPIDOGREL 75 MG TAB PO SCH (08:35)
[2017-06-01] MEDS: LOSARTAN 50 MG TAB PO SCH (08:35)
[2017-06-01] MEDS: LEVETIRACETAM 500 MG TAB PO SCH ×2 (08:35→20:53)
--- NOTE | 2017-06-01 10:14 | PN ---
DATE: 06/01/2017 SUBJECTIVE DATA: Patient is stable. No events overnight. No fevers, chills, nausea, vomiting. OBJECTIVE DATA: VITAL SIGNS: Blood pressure is 147/70, pulse is 75, respiration is 20, temperature 98.6. HEENT: Head is normocephalic. NECK: Supple. HEART: Regular rate. LUNGS: Show diminished breath sounds at the base. ABDOMEN: Soft, nontender to palpation. No rebound or guarding. EXTREMITIES: Negative for clubbing, cyanosis. No edema. DERMATOLOGIC: Clean. No rashes. MUSCULOSKELETAL: No joint effusion. NEUROLOGIC: No change in exam. MEDICATIONS: Reviewed. LABORATORY AND DIAGNOSTIC DATA: Reviewed. No new labs. ASSESSMENT AND PLAN: 1. Nonoliguric acute kidney injury on top of chronic kidney disease, stage 3B, etiology secondary to hemodynamics. Renal function has improved. Continue current treatment plan. Supportive care. Renally dose all meds. 2. Chronic kidney disease secondary to diabetic nephropathy. Continue current medical management. Continue good glycemic and blood pressure control. Continue Cozaar. 3. Cerebral vascular accident. Continue medical management. 4. Mineral bone disorder. Continue to monitor calcium and phosphorus levels. 5. Coronary artery disease. Continue current treatment plan. 6. Gastrointestinal and deep venous thrombosis prophylaxis. Dictated By: Alex Bah DO /trini/robles /Document#: [id number]
--- NOTE | 2017-06-01 12:35 | CONS ---
Date/Time of Note Date/Time of Note DATE: 06/01/17 TIME: 12:34 Consult Date/Type/Reason Admit Date/Time May 26, 2017 at 19:07 Subjective Patient motivated Objective Lungs clear abdomen soft Contact-guard assist ambulation Vital Signs Date Time Temp Pulse Resp B/P Pulse Ox O2 Delivery O2 Flow Rate FiO2 06/01/17 07:30 98.6 75 20 147/70 97 05/28/17 08:00 Room Air Intake and Output 05/31/17 05/31/17 06/01/17 15:00 23:00 07:00 Intake Total 800 ml 400 ml 670 ml Balance 800 ml 400 ml 670 ml Results/Medications Result Diagram: 05/30/17 0638 05/30/17 0638 Results 24 hrs Laboratory Tests Test 05/31/17 17:35 05/31/17 21:07 06/01/17 02:35 06/01/17 08:31 Bedside Glucose 187 248 H 216 151 Medications Current Medications Ondansetron HCl (Zofran Inj) 4 mg Q6H PRN IV NAUSEA AND/OR VOMITING; Start at 21:00 Acetaminophen (Tylenol Tab) 650 mg Q6H PRN PO PAIN LEVEL 1-3 OR FEVER; Start at 20:50 Famotidine (Pepcid) 20 mg DAILY PO Last administered on 06/01/17 08:35; Admin Dose 20 MG; Start 05/27/17 at 09:00 Diagnostic Test (Pha) (Accu-Chek) 1 ea 02 XX Last administered on 06/01/17 02: 39; Admin Dose 1 EA; Start 05/27/17 at 02:00 Miscellaneous Information 1 ea NOTE XX ; Start 05/27/17 at 09:00 Glucose (Glutose) 15 gm Q15M PRN PO DECREASED GLUCOSE; Start 05/26/17 at 20:53 Glucose (Glutose) 22.5 gm Q15M PRN PO DECREASED GLUCOSE; Start 05/26/17 at 20: 53 Dextrose (D50w Syringe) 25 ml Q15M PRN IV DECREASED GLUCOSE; Start 05/26/17 at 20:52 Dextrose (D50w Syringe) 50 ml Q15M PRN IV DECREASED GLUCOSE; Start 05/26/17 at 20:52 Glucagon (Glucagen) 1 mg Q15M PRN IM DECREASED GLUCOSE; Start 05/26/17 at 20:52 Glucose (Glutose) 15 gm Q15M PRN BUCCAL DECREASED GLUCOSE; Start 05/27/17 at 20 :53 Atorvastatin Calcium (Lipitor) 80 mg HS PO Last administered on 05/31/17 21:09 ; Admin Dose 80 MG; Start 05/26/17 at 21:00 Aspirin (Aspirin) 81 mg DAILY PO Last administered on 06/01/17 08:35; Admin Dose 81 MG; Start 05/27/17 at 09:00 Clopidogrel Bisulfate (plaVIX) 75 mg DAILY PO Last administered on 06/01/17 08 :35; Admin Dose 75 MG; Start 05/27/17 at 09:00 Levetiracetam (Keppra) 500 mg BID PO Last administered on 06/01/17 08:35; Admin Dose 500 MG; Start 05/26/17 at 21:00 Tamsulosin HCl (Flomax) 0.4 mg HS PO Last administered on 05/31/17 21:09; Admin Dose 0.4 MG; Start 05/26/17 at 21:00 Insulin Glargine (Lantus) 20 unit HS SC Last administered on 05/31/17 21:16; Admin Dose 20 UNIT; Start 05/26/17 at 21:00 Hydralazine HCl (Apresoline) 10 mg Q8 PO Last administered on 05/31/17 21:10; Admin Dose 10 MG; Start 05/26/17 at 22:00 Lorazepam (Ativan) 0.5 mg HS PRN PO ANXIETY Last administered on 05/28/17 01: 37; Admin Dose 0.5 MG; Start 05/26/17 at 20:58 Zolpidem Tartrate (Ambien) 5 mg HS PRN PO INSOMNIA Last administered on 21:02; Admin Dose 5 MG; Start 05/26/17 at 22:30 Losartan Potassium (Cozaar) 50 mg DAILY PO Last administered on 06/01/17 08:35 ; Admin Dose 50 MG; Start 05/27/17 at 09:00 Bisacodyl (Dulcolax Supp) 10 mg DAILY PRN [place] CONSTIPATION; Start 05/27/17 at 04 :30 Magnesium Hydroxide (Milk Of Mag) 30 ml BID PRN PO CONSTIPATION; Start at 04:30 Lactulose (Enulose) 20 gm DAILY PRN PO CONSTIPATION; Start 05/27/17 at 04:30 Amlodipine Besylate (Norvasc) 5 mg DAILY PO Last administered on 06/01/17t 08: 35; Admin Dose 5 MG; Start 05/30/17 at 09:00 Clonidine (Catapres) 0.1 mg Q4H PRN PO SBP > 170, DBP > 95; Start 05/29/17 at 20:00 Metronidazole (Flagyl) 500 mg Q8 PO ; Start 06/01/17 at 14:00; Status UNV Assessment/Plan Additional Assessment/Plan Rehabilitation-Right pontine lacunar infarct CVA with left-sided weakness. Continue current rehab treatment plan Hypertension. Diabetes mellitus. Seizure disorder. History of DVT. Hyperlipidemia. History of pacemaker. ANDREA ALAS MD Jun 01, 2017 12:35
[2017-06-01] MEDS: metroNIDAZOLE 500 MG TAB PO SCH ×2 (13:56→21:00)
--- NOTE | 2017-06-01 14:44 | CONS ---
Date/Time of Note Date/Time of Note DATE: 06/01/17 TIME: 14:41 Assessment/Plan Assessment/Plan Chief Complaint/Hosp Course 1. 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 -Continue aspirin, Plavix and statin. -Continue with rehabilitative exercise for mobility enhancement. 2. Essential hypertension with hypertensive urgency. Now stable. -Continue Norvasc, Hydralazine and Losartan. 3. Type 2 diabetes. -Continue with Accu-Cheks with ISS and Lantus insulin 4. Seizure disorder. Stable. -Continue Keppra 5. Dyslipidemia. -On statin 4. History of coronary artery disease -Continue current medical management 5. Debility -Continue with physical therapy. 6. BPH -On Flomax 7. Chronic kidney disease stage III. -Monitor renal function closely and renally dose medications. Follow-up with nephrology recommendations. 8. Gardnerella vaginalis UTI. Patient asymptomatic. -We will start Flagyl orally. Will also obtain HIV panel. Case discussed with Problems: Consultation Date/Type/Reason Admit Date/Time May 26, 2017 at 19:07 24 HR Interval Summary Free Text/Dictation Patient with no acute distress. Has been participating in physical therapy well. Exam/Review of Systems Vital Signs Vitals Vital Signs Date Time Temp Pulse Resp B/P Pulse Ox O2 Delivery O2 Flow Rate FiO2 06/01/17 07:30 98.5 75 20 147/70 97 05/28/17 08:00 Room Air Intake and Output 05/31/17 05/31/17 06/01/17 15:00 23:00 07:00 Intake Total 800 ml 400 ml 670 ml Balance 800 ml 400 ml 670 ml Exam General: Well developed,adequately built, not in any acute distress . HEENT: Normocephalic, Atraumatic, No laceration or hematoma; Eyes: PEERL, Conjunctiva clear, Anicteric sclera Neck: Supple without any lymphadenopathy, nontender, no JVD, no carotid bruits, trachea midline, no thyromegaly Cardiac: S1, S2 auscultated, regular rhythm and rate, no mumurs or gallop Pulmonary: Normal respiratory effort. Chest clear to auscultation bilaterally, no adventitious breath sounds GI: Abdomen normal to inspection. Soft, non tender, non- distended, no masses, no rebound tenderness or guarding. Bowel sounds active on all four quadrants Genitourinary: Deferred Extremities: Flaccid left upper extremities, left lower extremity with 4 out of 5. Full range of motion on right upper and lower. No cyanosis, clubbing, or edema. Pulses [2+] bilaterally. Neurologic: Alert to person, place, time, and situation. Affect appropriate, intact sensation. Skin: Clean,dry, and intact. No ecchymosis, no rashes, or lesions Results Result Diagram: 05/30/17 0638 05/30/17 0638 Results 24 hrs Laboratory Tests Test 05/31/17 17:35 05/31/17 21:07 06/01/17 02:35 06/01/17 08:31 Bedside Glucose 187 248 H 216 151 Test 06/01/17 12:18 Bedside Glucose 189 Medications Medications Current Medications Ondansetron HCl (Zofran Inj) 4 mg Q6H PRN IV NAUSEA AND/OR VOMITING; Start at 21:00 Acetaminophen (Tylenol Tab) 650 mg Q6H PRN PO PAIN LEVEL 1-3 OR FEVER; Start at 20:50 Famotidine (Pepcid) 20 mg DAILY PO Last administered on 06/01/17 08:35; Admin Dose 20 MG; Start 05/27/17 at 09:00 Diagnostic Test (Pha) (Accu-Chek) 1 ea 02 XX Last administered on 06/01/17 02: 39; Admin Dose 1 EA; Start 05/27/17 at 02:00 Miscellaneous Information 1 ea NOTE XX ; Start 05/27/17 at 09:00 Glucose (Glutose) 15 gm Q15M PRN PO DECREASED GLUCOSE; Start 05/26/17 at 20:53 Glucose (Glutose) 22.5 gm Q15M PRN PO DECREASED GLUCOSE; Start 05/26/17 at 20: 53 Dextrose (D50w Syringe) 25 ml Q15M PRN IV DECREASED GLUCOSE; Start 05/26/17 at 20:52 Dextrose (D50w Syringe) 50 ml Q15M PRN IV DECREASED GLUCOSE; Start 05/26/17 at 20:52 Glucagon (Glucagen) 1 mg Q15M PRN IM DECREASED GLUCOSE; Start 05/26/17 at 20:52 Glucose (Glutose) 15 gm Q15M PRN BUCCAL DECREASED GLUCOSE; Start 05/27/17 at 20 :53 Atorvastatin Calcium (Lipitor) 80 mg HS PO Last administered on 05/31/17 21:09 ; Admin Dose 80 MG; Start 05/26/17 at 21:00 Aspirin (Aspirin) 81 mg DAILY PO Last administered on 06/01/17 08:35; Admin Dose 81 MG; Start 05/27/17 at 09:00 Clopidogrel Bisulfate (plaVIX) 75 mg DAILY PO Last administered on 06/01/17 08 :35; Admin Dose 75 MG; Start 05/27/17 at 09:00 Levetiracetam (Keppra) 500 mg BID PO Last administered on 06/01/17 08:35; Admin Dose 500 MG; Start 05/26/17 at 21:00 Tamsulosin HCl (Flomax) 0.4 mg HS PO Last administered on 05/31/17 21:09; Admin Dose 0.4 MG; Start 05/26/17 at 21:00 Insulin Glargine (Lantus) 20 unit HS SC Last administered on 05/31/17 21:16; Admin Dose 20 UNIT; Start 05/26/17 at 21:00 Hydralazine HCl (Apresoline) 10 mg Q8 PO Last administered on 06/01/17 13:57; Admin Dose 10 MG; Start 05/26/17 at 22:00 Lorazepam (Ativan) 0.5 mg HS PRN PO ANXIETY Last administered on 05/28/17 01: 37; Admin Dose 0.5 MG; Start 05/26/17 at 20:58 Zolpidem Tartrate (Ambien) 5 mg HS PRN PO INSOMNIA Last administered on 21:02; Admin Dose 5 MG; Start 05/26/17 at 22:30 Losartan Potassium (Cozaar) 50 mg DAILY PO Last administered on 06/01/17 08:35 ; Admin Dose 50 MG; Start 05/27/17 at 09:00 Bisacodyl (Dulcolax Supp) 10 mg DAILY PRN OR CONSTIPATION; Start 05/27/17 at 04 :30 Magnesium Hydroxide (Milk Of Mag) 30 ml BID PRN PO CONSTIPATION; Start at 04:30 Lactulose (Enulose) 20 gm DAILY PRN PO CONSTIPATION; Start 05/27/17 at 04:30 Amlodipine Besylate (Norvasc) 5 mg DAILY PO Last administered on 06/01/17 08: 35; Admin Dose 5 MG; Start 05/30/17 at 09:00 Clonidine (Catapres) 0.1 mg Q4H PRN PO SBP > 170, DBP > 95; Start 05/29/17 at 20:00 Metronidazole (Flagyl) 500 mg Q8 PO Last administered on 06/01/17 13:56; Admin Dose 500 MG; Start 06/01/17 at 14:00 Docusate Sodium (Colace) 100 mg BID PO ; Start 06/01/17 at 21:00 Senna (Senokot) 1 tab ONCE PO ; Start 06/01/17 at 21:00; Stop 06/01/17 at 23:00 LITA CHAVARRIA NP Jun 01, 2017 14:44
[2017-06-01 20:00] VITALS: BP 148/77; RESP 18
[2017-06-01] MEDS: ATORVASTATIN 80 MG TAB PO SCH (20:53)
[2017-06-01] MEDS: TAMSULOSIN (SR) 0.4 MG CAP PO SCH (20:53)
[2017-06-01] MEDS: DOCUSATE SODIUM 100 MG CAP PO SCH (20:53)
[2017-06-01] MEDS ORDERED: SENNA TAB PO SCH (21:00)
[2017-06-01] MEDS: INSULIN GLARGINE [LANtus] 3 ML PEN SC SCH (21:12)
[2017-06-02 02:00] VITALS: BP 135/68; RESP 18
[2017-06-02] MEDS: ACCU-CHEK XX SCH (02:00)
[2017-06-02] MEDS: metroNIDAZOLE 500 MG TAB PO SCH ×3 (06:31→20:57)
[2017-06-02 06:33] VITALS: BP 149/77; PULSE 77
--- NOTE | 2017-06-02 08:07 | CONS ---
Date/Time of Note Date/Time of Note DATE: 06/02/17 TIME: 08:04 Assessment/Plan Assessment/Plan Chief Complaint/Hosp Course 1. 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 -Continue aspirin, Plavix and statin. -Continue with rehabilitative exercise for mobility enhancement. 2. Essential hypertension with hypertensive urgency. Now stable. -Continue Norvasc, Hydralazine and Losartan. 3. Hyperglycemia with Type 2 diabetes. -We will increase Lantus 25 units at bedtime and decrease ISS to mild scale and reevaluate in a.m. Resume metformin. -Continue with carbohydrate controlled diet. 4. Seizure disorder. Stable. -Continue Keppra 5. Dyslipidemia. -On statin 4. History of coronary artery disease -Continue current medical management 5. Debility -Continue with physical therapy. 6. BPH -On Flomax 7. Chronic kidney disease stage III. -Monitor renal function closely and renally dose medications. Follow-up with nephrology recommendations. 8. Gardnerella vaginalis UTI. Patient asymptomatic. -Continue Flagylx 10days Case discussed with Problems: Consultation Date/Type/Reason Admit Date/Time May 26, 2017 at 19:07 24 HR Interval Summary Free Text/Dictation No acute overnight episodes. Blood glucose has been high. Exam/Review of Systems Vital Signs Vitals Vital Signs Date Time Temp Pulse Resp B/P Pulse Ox O2 Delivery O2 Flow Rate FiO2 06/02/17 06:33 77 149/77 06/02/17 02:00 98.7 18 93 Intake and Output 06/01/17 06/01/17 06/02/17 15:00 23:00 07:00 Intake Total 620 ml 650 ml Balance 620 ml 650 ml Exam General: Well developed,adequately built, not in any acute distress . HEENT: Normocephalic, Atraumatic, No laceration or hematoma; Eyes: PEERL, Conjunctiva clear, Anicteric sclera Neck: Supple without any lymphadenopathy, nontender, no JVD, no carotid bruits, trachea midline, no thyromegaly Cardiac: S1, S2 auscultated, regular rhythm and rate, no mumurs or gallop Pulmonary: Normal respiratory effort. Chest clear to auscultation bilaterally, no adventitious breath sounds GI: Abdomen normal to inspection. Soft, non tender, non- distended, no masses, no rebound tenderness or guarding. Bowel sounds active on all four quadrants Genitourinary: Deferred Extremities: Flaccid left upper extremities, left lower extremity with 4 out of 5. Full range of motion on right upper and lower. No cyanosis, clubbing, or edema. Pulses [2+] bilaterally. Neurologic: Alert to person, place, time, and situation. Affect appropriate, intact sensation. Skin: Clean,dry, and intact. No ecchymosis, no rashes, or lesions Results Result Diagram: 05/30/17 0605/30/17 0638 Results 24 hrs Laboratory Tests Test 06/01/17 08:31 06/01/17 12:18 06/01/17 12:31 06/01/17 16:47 Bedside Glucose 151 189 151 HIV (1&2) Antibody NEGATIVE Test 06/01/17 20:51 Bedside Glucose 266 H Medications Medications Current Medications Ondansetron HCl (Zofran Inj) 4 mg Q6H PRN IV NAUSEA AND/OR VOMITING; Start at 21:00 Acetaminophen (Tylenol Tab) 650 mg Q6H PRN PO PAIN LEVEL 1-3 OR FEVER; Start at 20:50 Famotidine (Pepcid) 20 mg DAILY PO Last administered on 06/01/17 08:35; Admin Dose 20 MG; Start 05/27/17 at 09:00 Diagnostic Test (Pha) (Accu-Chek) 1 ea 02 XX Last administered on 06/01/17 02: 39; Admin Dose 1 EA; Start 05/27/17 at 02:00 Miscellaneous Information 1 ea NOTE XX ; Start 05/27/17 at 09:00 Glucose (Glutose) 15 gm Q15M PRN PO DECREASED GLUCOSE; Start 05/26/17 at 20:53 Glucose (Glutose) 22.5 gm Q15M PRN PO DECREASED GLUCOSE; Start 05/26/17 at 20: 53 Dextrose (D50w Syringe) 25 ml Q15M PRN IV DECREASED GLUCOSE; Start 05/26/17 at 20:52 Dextrose (D50w Syringe) 50 ml Q15M PRN IV DECREASED GLUCOSE; Start 05/26/17 at 20:52 Glucagon (Glucagen) 1 mg Q15M PRN IM DECREASED GLUCOSE; Start 05/26/17 at 20:52 Glucose (Glutose) 15 gm Q15M PRN BUCCAL DECREASED GLUCOSE; Start 05/27/17 at 20 :53 Atorvastatin Calcium (Lipitor) 80 mg HS PO Last administered on 06/01/17 20:53 ; Admin Dose 80 MG; Start 05/26/17 at 21:00 Aspirin (Aspirin) 81 mg DAILY PO Last administered on 06/01/17 08:35; Admin Dose 81 MG; Start 05/27/17 at 09:00 Clopidogrel Bisulfate (plaVIX) 75 mg DAILY PO Last administered on 06/01/17 08 :35; Admin Dose 75 MG; Start 05/27/17 at 09:00 Levetiracetam (Keppra) 500 mg BID PO Last administered on 06/01/17 20:53; Admin Dose 500 MG; Start 05/26/17 at 21:00 Tamsulosin HCl (Flomax) 0.4 mg HS PO Last administered on 06/01/17 20:53; Admin Dose 0.4 MG; Start 05/26/17 at 21:00 Insulin Glargine (Lantus) 20 unit HS SC Last administered on 06/01/17 21:12; Admin Dose 20 UNIT; Start 05/26/17 at 21:00 Hydralazine HCl (Apresoline) 10 mg Q8 PO Last administered on 06/02/17 06:33; Admin Dose 10 MG; Start 05/26/17 at 22:00 Lorazepam (Ativan) 0.5 mg HS PRN PO ANXIETY Last administered on 05/28/17 01: 37; Admin Dose 0.5 MG; Start 05/26/17 at 20:58 Zolpidem Tartrate (Ambien) 5 mg HS PRN PO INSOMNIA Last administered on 21:02; Admin Dose 5 MG; Start 05/26/17 at 22:30 Losartan Potassium (Cozaar) 50 mg DAILY PO Last administered on 06/01/17 08:35 ; Admin Dose 50 MG; Start 05/27/17 at 09:00 Bisacodyl (Dulcolax Supp) 10 mg DAILY PRN IN CONSTIPATION; Start 05/27/17 at 04 :30 Magnesium Hydroxide (Milk Of Mag) 30 ml BID PRN PO CONSTIPATION; Start at 04:30 Lactulose (Enulose) 20 gm DAILY PRN PO CONSTIPATION; Start 05/27/17 at 04:30 Amlodipine Besylate (Norvasc) 5 mg DAILY PO Last administered on 06/01/17 08: 35; Admin Dose 5 MG; Start 05/30/17 at 09:00 Clonidine (Catapres) 0.1 mg Q4H PRN PO SBP > 170, DBP > 95; Start 05/29/17 at 20:00 Metronidazole (Flagyl) 500 mg Q8 PO Last administered on 06/02/17 06:31; Admin Dose 500 MG; Start 06/01/17 at 14:00 Docusate Sodium (Colace) 100 mg BID PO Last administered on 06/01/17 20:53; Admin Dose 100 MG; Start 06/01/17 at 21:00 LITA CHAVARRIA NP Jun 02, 2017 08:06
[2017-06-02] MEDS: ASPIRIN 81 MG TAB PO SCH (08:24)
[2017-06-02] MEDS: DOCUSATE SODIUM 100 MG CAP PO SCH ×3 (08:24→20:57)
[2017-06-02] MEDS: INSULIN ASPART [NOVOLOG] 3 ML PEN SC SCH ×4 (08:24→21:05)
[2017-06-02] MEDS: LOSARTAN 50 MG TAB PO SCH (08:26)
[2017-06-02] MEDS: LEVETIRACETAM 500 MG TAB PO SCH ×2 (08:26→20:57)
[2017-06-02] MEDS: CLOPIDOGREL 75 MG TAB PO SCH (08:27)
[2017-06-02] MEDS: AMLODIPINE 5 MG TAB PO SCH (08:27)
[2017-06-02] MEDS: FAMOTIDINE 20 MG TAB PO SCH (08:27)
--- NOTE | 2017-06-02 10:40 | PN ---
DATE: 06/02/2017 SUBJECTIVE DATA: Patient is stable. No events overnight. No fevers, chills, nausea, vomiting. OBJECTIVE DATA: VITAL SIGNS: Blood pressure is 149/77, respirations 18, pulse 97, temperature 98.6. HEENT: Head is normocephalic. NECK: Supple. HEART: Regular rate. LUNGS: Show diminished breath sounds at the base. ABDOMEN: Soft, nontender to palpation. No rebound or guarding. EXTREMITIES: Negative for clubbing, cyanosis. No edema. DERMATOLOGIC: No rashes. MUSCULOSKELETAL: No joint effusion. NEUROLOGIC: No change in exam. MEDICATIONS: Reviewed. LABORATORY AND DIAGNOSTIC DATA: Reviewed. ASSESSMENT AND PLAN: 1. Nonoliguric acute kidney injury on top of chronic kidney disease, stage 3B. Etiology secondary to hemodynamics. Renal function has improved. Continue current treatment, supportive care. Renally dose all meds. 2. Chronic kidney disease secondary to diabetic nephropathy. Continue current medical management. Continue current glycemic and blood pressure control. Continue to monitor closely. 3. Mineral bone disorder. Continue to monitor calcium and phosphorus levels. 4. Coronary artery disease. Continue medical management. 5. Hypertension. Blood pressure controlled. Continue current blood pressure regimen. 6. History of cerebral vascular accident. Continue current treatment plan. Dictated By: Alex Bah DO /[email or web address]/sunshine /Document#: [id number]
--- NOTE | 2017-06-02 11:58 | CONS ---
Date/Time of Note Date/Time of Note DATE: 06/02/17 TIME: 11:57 Consult Date/Type/Reason Admit Date/Time May 26, 2017 at 19:07 Subjective no new complaints Objective pulm-cta min assist ambulation Vital Signs Date Time Temp Pulse Resp B/P Pulse Ox O2 Delivery O2 Flow Rate FiO2 06/02/17 06:33 77 149/77 06/02/17 02:00 98.7 18 93 Intake and Output 06/01/17 06/01/17 06/02/17 15:00 23:00 07:00 Intake Total 620 ml 650 ml Balance 620 ml 650 ml Results/Medications Result Diagram: 05/30/17 0638 05/30/17 0638 Results 24 hrs Laboratory Tests Test 06/01/17 12:18 06/01/17 12:31 06/01/17 16:47 06/01/17 20:51 Bedside Glucose 189 151 266 H HIV (1&2) Antibody NEGATIVE Test 06/02/17 08:08 Bedside Glucose 169 Medications Current Medications Ondansetron HCl (Zofran Inj) 4 mg Q6H PRN IV NAUSEA AND/OR VOMITING; Start at 21:00 Acetaminophen (Tylenol Tab) 650 mg Q6H PRN PO PAIN LEVEL 1-3 OR FEVER; Start at 20:50 Famotidine (Pepcid) 20 mg DAILY PO Last administered on 06/02/17 08:27; Admin Dose 20 MG; Start 05/27/17 at 09:00 Diagnostic Test (Pha) (Accu-Chek) 1 ea 02 XX Last administered on 06/01/17 02: 39; Admin Dose 1 EA; Start 05/27/17 at 02:00 Miscellaneous Information 1 ea NOTE XX ; Start 05/27/17 at 09:00 Glucose (Glutose) 15 gm Q15M PRN PO DECREASED GLUCOSE; Start 05/26/17 at 20:53 Glucose (Glutose) 22.5 gm Q15M PRN PO DECREASED GLUCOSE; Start 05/26/17 at 20: 53 Dextrose (D50w Syringe) 25 ml Q15M PRN IV DECREASED GLUCOSE; Start 05/26/17 at 20:52 Dextrose (D50w Syringe) 50 ml Q15M PRN IV DECREASED GLUCOSE; Start 05/26/17 at 20:52 Glucagon (Glucagen) 1 mg Q15M PRN IM DECREASED GLUCOSE; Start 05/26/17 at 20:52 Glucose (Glutose) 15 gm Q15M PRN BUCCAL DECREASED GLUCOSE; Start 05/27/17 at 20 :53 Atorvastatin Calcium (Lipitor) 80 mg HS PO Last administered on 06/01/17 20:53 ; Admin Dose 80 MG; Start 05/26/17 at 21:00 Aspirin (Aspirin) 81 mg DAILY PO Last administered on 06/02/17 08:24; Admin Dose 81 MG; Start 05/27/17 at 09:00 Clopidogrel Bisulfate (plaVIX) 75 mg DAILY PO Last administered on 06/02/17 08 :27; Admin Dose 75 MG; Start 05/27/17 at 09:00 Levetiracetam (Keppra) 500 mg BID PO Last administered on 06/02/17 08:26; Admin Dose 500 MG; Start 05/26/17 at 21:00 Tamsulosin HCl (Flomax) 0.4 mg HS PO Last administered on 06/01/17 20:53; Admin Dose 0.4 MG; Start 05/26/17 at 21:00 Hydralazine HCl (Apresoline) 10 mg Q8 PO Last administered on 06/02/17 06:33; Admin Dose 10 MG; Start 05/26/17 at 22:00 Lorazepam (Ativan) 0.5 mg HS PRN PO ANXIETY Last administered on 05/28/17 01: 37; Admin Dose 0.5 MG; Start 05/26/17 at 20:58 Zolpidem Tartrate (Ambien) 5 mg HS PRN PO INSOMNIA Last administered on 21:02; Admin Dose 5 MG; Start 05/26/17 at 22:30 Losartan Potassium (Cozaar) 50 mg DAILY PO Last administered on 06/02/17 08:26 ; Admin Dose 50 MG; Start 05/27/17 at 09:00 Bisacodyl (Dulcolax Supp) 10 mg DAILY PRN [place] CONSTIPATION; Start 05/27/17 at 04 :30 Magnesium Hydroxide (Milk Of Mag) 30 ml BID PRN PO CONSTIPATION; Start at 04:30 Lactulose (Enulose) 20 gm DAILY PRN PO CONSTIPATION; Start 8/19/17 at 04:30 Amlodipine Besylate (Norvasc) 5 mg DAILY PO Last administered on 06/02/17 08: 27; Admin Dose 5 MG; Start 05/30/17 at 09:00 Clonidine (Catapres) 0.1 mg Q4H PRN PO SBP > 170, DBP > 95; Start 05/29/17 at 20:00 Metronidazole (Flagyl) 500 mg Q8 PO Last administered on 06/02/17 06:31; Admin Dose 500 MG; Start 06/01/17 at 14:00; Stop 06/10/17 at 13:59 Docusate Sodium (Colace) 100 mg BID PO Last administered on 06/01/17 20:53; Admin Dose 100 MG; Start 06/01/17 at 21:00 Insulin Glargine (Lantus) 25 unit HS SC ; Start 06/02/17 at 21:00 Assessment/Plan Additional Assessment/Plan Rehabilitation-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 Continue rehab therapies Hypertension. Diabetes mellitus. Seizure disorder. History of DVT. Hyperlipidemia. History of pacemaker. ANDREA ALAS MD Jun 02, 2017 11:57
[2017-06-02] MEDS ORDERED: INSULIN ASPART [NOVOLOG] 3 ML PEN SC SCH (12:00)
[2017-06-02] MEDS: metFORMIN 500 MG TAB PO SCH (17:35)
[2017-06-02 20:00] VITALS: BP 142/85; RESP 18
[2017-06-02] MEDS: ATORVASTATIN 80 MG TAB PO SCH (20:57)
[2017-06-02] MEDS: TAMSULOSIN (SR) 0.4 MG CAP PO SCH (20:57)
[2017-06-02] MEDS: INSULIN GLARGINE [LANtus] 3 ML PEN SC SCH (21:06)
[2017-06-03] MEDS: ACCU-CHEK XX SCH (02:00)
[2017-06-03 06:43] VITALS: BP 154/84; PULSE 76
[2017-06-03] MEDS: metroNIDAZOLE 500 MG TAB PO SCH ×3 (06:44→22:00)
[2017-06-03 07:30] VITALS: BP 135/71; RESP 18
[2017-06-03] MEDS ORDERED: LACTATED RINGER'S 500 ML IV ONE (07:30)
--- NOTE | 2017-06-03 07:32 | PN ---
Date/Time of Note Date/Time of Note DATE: 06/03/17 TIME: 07:29 Assessment/Plan VTE Prophylaxis VTE Prophylaxis Intervention: other Lines/Catheters IV Catheter Type (from [facility]): [place] Urinary Cath still in place: No Assessment/Plan Problems: (1) Right pontine cerebrovascular accident Status: Acute Comment: Going through rehabilitation [facility] [place]. Adjusted and actively involved with the staff (2) Seizure disorder Status: Chronic Comment: He has been without any seizure activity and treatment. (3) Hyperlipidemia Status: Chronic Comment: Remains on statin therapy Qualifiers: Hyperlipidemia type: pure hypercholesterolemia Qualified Code: E78.00 - Pure hypercholesterolemia (4) Hypertension, essential Status: Chronic Comment: He is tolerating the angiotensin to receptor belinda. Given that his renal dysfunction is partially volume dependent I am oppose the usage of the amlodipine which can cause some extravascular shifts. In addition he is on tamsulosin. We will switch over to a direct alpha-belinda which will also have blood pressure effects increase the losartan to full dose stop the amlodipine and titrate to effect. (5) BPH (benign prostatic hypertrophy) with urinary retention Status: Chronic Comment: Adequately controlled using alpha-belinda therapy (6) Chronic kidney disease, stage III (moderate) Status: Chronic Comment: He is stable but had not returned to baseline as of his last chemistry panel. His baseline a year and half ago was a serum creatinine 1.9. We will recheck hm in morning (7) Type 2 diabetes mellitus with diabetic nephropathy, with long-term current use of insulin Status: Chronic Comment: His sugar control is fair. I am going to add in Tradjenta to the insulin to start trying fine-tune (8) Acute kidney injury Status: Resolved Comment: This is partially resolved Subjective 24 Hr Interval Summary Free Text/Dictation Patient is up and around. For complaints Constitutional: no complaints Respiratory: no complaints Cardiovascular: no complaints Gastrointestinal: no complaints Exam/Review of Systems Vital Signs Vitals Vital Signs Date Time Temp Pulse Resp B/P Pulse Ox O2 Delivery O2 Flow Rate FiO2 06/03/17 06:43 76 154/84 06/02/17 20:00 97.8 18 97 Intake and Output 06/02/17 06/02/17 06/03/17 14:59 22:59 06:59 Intake Total 850 ml 400 ml Output Total 200 ml Balance 650 ml 400 ml Exam Constitutional: alert, oriented Neck: non-tender, supple Respiratory: clear to auscultation, normal air movement Neurological: other (Upper extremity paresthesia) Results Result Diagram: 05/30/17 0638 05/30/17 0638 Results 24 hrs Laboratory Tests Test 06/02/17 08:08 06/02/17 12:38 06/02/17 17:17 06/02/17 20:55 Bedside Glucose 169 226 H 214 200 Medications Medications Current Medications Ondansetron HCl (Zofran Inj) 4 mg Q6H PRN IV NAUSEA AND/OR VOMITING; Start at 21:00 Acetaminophen (Tylenol Tab) 650 mg Q6H PRN PO PAIN LEVEL 1-3 OR FEVER; Start at 20:50 Famotidine (Pepcid) 20 mg DAILY PO Last administered on 06/02/17 08:27; Admin Dose 20 MG; Start 05/27/17 at 09:00 Diagnostic Test (Pha) (Accu-Chek) 1 ea 02 XX Last administered on 06/01/17 02: 39; Admin Dose 1 EA; Start 05/27/17 at 02:00 Miscellaneous Information 1 ea NOTE XX ; Start 05/27/17 at 09:00 Glucose (Glutose) 15 gm Q15M PRN PO DECREASED GLUCOSE; Start 05/26/17 at 20:53 Glucose (Glutose) 22.5 gm Q15M PRN PO DECREASED GLUCOSE; Start 05/26/17 at 20: 53 Dextrose (D50w Syringe) 25 ml Q15M PRN IV DECREASED GLUCOSE; Start 05/26/17 at 20:52 Dextrose (D50w Syringe) 50 ml Q15M PRN IV DECREASED GLUCOSE; Start 05/26/17 at 20:52 Glucagon (Glucagen) 1 mg Q15M PRN IM DECREASED GLUCOSE; Start 05/26/17 at 20:52 Glucose (Glutose) 15 gm Q15M PRN BUCCAL DECREASED GLUCOSE; Start 05/27/17 at 20 :53 Atorvastatin Calcium (Lipitor) 80 mg HS PO Last administered on 06/02/17 20:57 ; Admin Dose 80 MG; Start 05/26/17 at 21:00 Aspirin (Aspirin) 81 mg DAILY PO Last administered on 06/02/17 08:24; Admin Dose 81 MG; Start 05/27/17 at 09:00 Clopidogrel Bisulfate (plaVIX) 75 mg DAILY PO Last administered on 06/02/17 08 :27; Admin Dose 75 MG; Start 05/27/17 at 09:00 Levetiracetam (Keppra) 500 mg BID PO Last administered on 06/02/17 20:57; Admin Dose 500 MG; Start 05/26/17 at 21:00 Lorazepam (Ativan) 0.5 mg HS PRN PO ANXIETY Last administered on 05/28/17 01: 37; Admin Dose 0.5 MG; Start 05/26/17 at 20:58 Zolpidem Tartrate (Ambien) 5 mg HS PRN PO INSOMNIA Last administered on 21:02; Admin Dose 5 MG; Start 05/26/17 at 22:30 Bisacodyl (Dulcolax Supp) 10 mg DAILY PRN [place] CONSTIPATION; Start 05/27/17 at 04 :30 Magnesium Hydroxide (Milk Of Mag) 30 ml BID PRN PO CONSTIPATION; Start at 04:30 Lactulose (Enulose) 20 gm DAILY PRN PO CONSTIPATION; Start 05/27/17 at 04:30 Clonidine (Catapres) 0.1 mg Q4H PRN PO SBP > 170, DBP > 95; Start 05/29/17 at 20:00 Metronidazole (Flagyl) 500 mg Q8 PO Last administered on 06/03/17 06:44; Admin Dose 500 MG; Start 06/01/17 at 14:00; Stop 06/10/17 at 13:59 Docusate Sodium (Colace) 100 mg BID PO Last administered on 06/01/17 20:53; Admin Dose 100 MG; Start 06/01/17 at 21:00 Insulin Glargine (Lantus) 25 unit HS SC Last administered on 06/02/17 21:06; Admin Dose 25 UNIT; Start 06/02/17 at 21:00 Hydralazine HCl (Apresoline) 25 mg Q12 PO ; Start 06/03/17 at 09:00; Status UNV Losartan Potassium (Cozaar) 100 mg DAILY PO ; Start 06/03/17 at 09:00; Status UNV Doxazosin Mesylate (Cardura) 1 mg ONCE ONCE PO ; Start 06/03/17 at 07:30; Stop 06/03/17 at 07:31; Status UNV Doxazosin Mesylate (Cardura) 2 mg HS PO ; Start 06/03/17 at 21:00; Status UNV Linagliptin (Tradjenta) 5 mg DAILY PO ; Start 06/03/17 at 09:00; Status UNV MAYRA ANDERS MD Jun 03, 2017 07:32
[2017-06-03] MEDS: INSULIN ASPART [NOVOLOG] 3 ML PEN SC SCH ×4 (07:35→21:00)
[2017-06-03] MEDS ORDERED: DOXAZOSIN 1 MG TAB PO ONE (08:00)
[2017-06-03] MEDS: metFORMIN 500 MG TAB PO SCH ×3 (08:38→17:35)
[2017-06-03] MEDS: LEVETIRACETAM 500 MG TAB PO SCH ×2 (08:39→21:00)
[2017-06-03] MEDS: DOCUSATE SODIUM 100 MG CAP PO SCH ×2 (08:39→21:00)
[2017-06-03] MEDS: FAMOTIDINE 20 MG TAB PO SCH (08:39)
[2017-06-03] MEDS: LINAGLIPTIN 5 MG TABLET PO SCH (08:40)
[2017-06-03] MEDS: CLOPIDOGREL 75 MG TAB PO SCH (08:40)
[2017-06-03] MEDS: ASPIRIN 81 MG TAB PO SCH (08:40)
[2017-06-03] MEDS: LOSARTAN 50 MG TAB PO SCH (08:42)
--- NOTE | 2017-06-03 09:52 | PN ---
DATE: 06/03/2017 SUBJECTIVE DATA: Patient is stable. No events overnight. No fevers, chills, nausea, or vomiting. OBJECTIVE DATA: VITAL SIGNS: Blood pressure 154/84, pulse 76, respiration 18, and temperature 97.8. HEENT: Head is normocephalic. NECK: Supple. HEART: Regular rate. LUNGS: Diminished breath sounds at the base. ABDOMEN: Soft, nontender to palpation. No guarding. EXTREMITIES: Negative for clubbing, cyanosis. No edema. DERMATOLOGIC: No rashes. MUSCULOSKELETAL: No joint effusion. NEUROLOGIC: No change in exam. MEDICATIONS: Reviewed. LABORATORY AND DIAGNOSTIC DATA: Been reviewed. No new labs. ASSESSMENT AND PLAN: 1. Nonoliguric acute kidney injury on top of chronic kidney disease stage IIIB. Etiology secondary to hemodynamics. Renal function is improving. Continue current treatment. Supportive care. Renally dose all meds. 2. Chronic kidney disease secondary to diabetic nephropathy. Continue current medical management. Continue disease factor modification. 3. Mineral bone disorder. Monitor calcium and phosphorus levels. 4. Coronary artery disease. Continue current treatment plan. 5. Hypertension. Continue current blood pressure regimen. 6. History of cerebrovascular accident. Continue current medical management. Dictated By: Alex Bah DO /trini/melisa /Document#: [id number]
--- NOTE | 2017-06-03 10:30 | CONS ---
Date/Time of Note Date/Time of Note DATE: 06/03/17 TIME: 10:30 Consult Date/Type/Reason Admit Date/Time May 26, 2017 at 19:07 Subjective Comfortable Objective min assist 70 feet Vital Signs Date Time Temp Pulse Resp B/P Pulse Ox O2 Delivery O2 Flow Rate FiO2 06/03/17 07:30 98.2 81 18 135/71 98 Intake and Output 06/02/17 06/02/17 06/03/17 15:00 23:00 07:00 Intake Total 850 ml 400 ml Output Total 200 ml Balance 650 ml 400 ml Results/Medications Result Diagram: 05/30/1738 05/30/17637 Results 24 hrs Laboratory Tests Test 06/02/17 12:38 06/02/17 17:17 06/02/17 20:55 Bedside Glucose 226 H 214 200 Medications Current Medications Ondansetron HCl (Zofran Inj) 4 mg Q6H PRN IV NAUSEA AND/OR VOMITING; Start at 21:00 Acetaminophen (Tylenol Tab) 650 mg Q6H PRN PO PAIN LEVEL 1-3 OR FEVER; Start at 20:50 Famotidine (Pepcid) 20 mg DAILY PO Last administered on 06/03/17 08:39; Admin Dose 20 MG; Start 05/27/17 at 09:00 Diagnostic Test (Pha) (Accu-Chek) 1 ea 02 XX Last administered on 06/01/17 02: 39; Admin Dose 1 EA; Start 05/27/17 at 02:00 Miscellaneous Information 1 ea NOTE XX ; Start 05/27/17 at 09:00 Glucose (Glutose) 15 gm Q15M PRN PO DECREASED GLUCOSE; Start 05/26/17 at 20:53 Glucose (Glutose) 22.5 gm Q15M PRN PO DECREASED GLUCOSE; Start 05/26/17 at 20: 53 Dextrose (D50w Syringe) 25 ml Q15M PRN IV DECREASED GLUCOSE; Start 05/26/17 at 20:52 Dextrose (D50w Syringe) 50 ml Q15M PRN IV DECREASED GLUCOSE; Start 05/26/17 at 20:52 Glucagon (Glucagen) 1 mg Q15M PRN IM DECREASED GLUCOSE; Start 05/26/17 at 20:52 Glucose (Glutose) 15 gm Q15M PRN BUCCAL DECREASED GLUCOSE; Start 05/27/17 at 20 :53 Atorvastatin Calcium (Lipitor) 80 mg HS PO Last administered on 06/02/17 20:57 ; Admin Dose 80 MG; Start 05/26/17 at 21:00 Aspirin (Aspirin) 81 mg DAILY PO Last administered on 06/03/17 08:40; Admin Dose 81 MG; Start 05/27/17 at 09:00 Clopidogrel Bisulfate (plaVIX) 75 mg DAILY PO Last administered on 06/03/17 08 :40; Admin Dose 75 MG; Start 05/27/17 at 09:00 Levetiracetam (Keppra) 500 mg BID PO Last administered on 06/03/17 08:39; Admin Dose 500 MG; Start 05/26/17 at 21:00 Lorazepam (Ativan) 0.5 mg HS PRN PO ANXIETY Last administered on 05/28/17 01: 37; Admin Dose 0.5 MG; Start 05/26/17 at 20:58 Zolpidem Tartrate (Ambien) 5 mg HS PRN PO INSOMNIA Last administered on 21:02; Admin Dose 5 MG; Start 05/26/17 at 22:30 Bisacodyl (Dulcolax Supp) 10 mg DAILY PRN [place] CONSTIPATION; Start 05/27/17 at 04 :30 Magnesium Hydroxide (Milk Of Mag) 30 ml BID PRN PO CONSTIPATION; Start at 04:30 Lactulose (Enulose) 20 gm DAILY PRN PO CONSTIPATION; Start 05/27/17 at 04:30 Clonidine (Catapres) 0.1 mg Q4H PRN PO SBP > 170, DBP > 95; Start 05/29/17 at 20:00 Metronidazole (Flagyl) 500 mg Q8 PO Last administered on 06/03/17 06:44; Admin Dose 500 MG; Start 06/01/17 at 14:00; Stop 06/10/17 at 13:59 Docusate Sodium (Colace) 100 mg BID PO Last administered on 06/03/17 08:39; Admin Dose 100 MG; Start 06/01/17 at 21:00 Insulin Glargine (Lantus) 25 unit HS SC Last administered on 06/02/17 21:06; Admin Dose 25 UNIT; Start 06/02/17 at 21:00 Hydralazine HCl (Apresoline) 25 mg Q12 PO Last administered on 06/03/17 08:42 ; Admin Dose 25 MG; Start 06/03/17 at 09:00 Losartan Potassium (Cozaar) 100 mg DAILY PO Last administered on 06/03/17 08: 42; Admin Dose 100 MG; Start 06/03/17 at 09:00 Doxazosin Mesylate (Cardura) 2 mg HS PO ; Start 06/03/17 at 21:00 Linagliptin (Tradjenta) 5 mg DAILY PO Last administered on 06/03/17 08:40; Admin Dose 5 MG; Start 06/03/17 at 09:00 Assessment/Plan Additional Assessment/Plan Rehabilitation-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 Continue rehab program Hypertension. Diabetes mellitus. Seizure disorder. History of DVT. Hyperlipidemia. History of pacemaker. ANDREA ALAS MD Jun 03, 2017 10:30
[2017-06-03 12:52] VITALS: BP 134/85; PULSE 101
[2017-06-03 14:00] VITALS: BP 123/78; RESP 18
[2017-06-03] MEDS: DOXAZOSIN 2 MG TAB PO SCH (21:00)
[2017-06-03] MEDS: ATORVASTATIN 80 MG TAB PO SCH (21:00)
[2017-06-03] MEDS: INSULIN GLARGINE [LANtus] 3 ML PEN SC SCH (22:08)
[2017-06-04] MEDS: ACCU-CHEK XX SCH (02:00)
[2017-06-04] MEDS: metroNIDAZOLE 500 MG TAB PO SCH ×3 (06:58→21:00)
[2017-06-04] MEDS: INSULIN ASPART [NOVOLOG] 3 ML PEN SC SCH ×4 (07:35→20:55)
[2017-06-04] MEDS: metFORMIN 500 MG TAB PO SCH ×2 (07:35→17:34)
[2017-06-04 08:44] VITALS: BP 121/77; PULSE 82; RESP 17
[2017-06-04] MEDS: LOSARTAN 50 MG TAB PO SCH (08:46)
[2017-06-04] MEDS: ASPIRIN 81 MG TAB PO SCH (08:46)
[2017-06-04] MEDS: LEVETIRACETAM 500 MG TAB PO SCH ×2 (08:46→20:52)
[2017-06-04] MEDS: LINAGLIPTIN 5 MG TABLET PO SCH (08:47)
[2017-06-04] MEDS: CLOPIDOGREL 75 MG TAB PO SCH (08:47)
[2017-06-04] MEDS: FAMOTIDINE 20 MG TAB PO SCH (08:47)
[2017-06-04] MEDS: DOCUSATE SODIUM 100 MG CAP PO SCH ×2 (08:51→20:53)
--- NOTE | 2017-06-04 11:21 | PN ---
DATE: 06/04/2017 SUBJECTIVE DATA: Patient is stable. No events overnight. No fevers, chills, nausea, vomiting. OBJECTIVE DATA: VITAL SIGNS: Blood pressure is 123/78, respirations 18, pulse 103, temperature 98.8. HEENT: Head is normocephalic. NECK: Supple. HEART: Regular rate. LUNGS: Diminished breath sounds at the base. ABDOMEN: Soft, nontender to palpation. No rebound or guarding. EXTREMITIES: Negative for clubbing, cyanosis. No edema. DERMATOLOGIC: Clean. No rashes. MUSCULOSKELETAL: No joint effusion. NEUROLOGIC: No change in exam. LABORATORY AND DIAGNOSTIC DATA: Reviewed. ASSESSMENT AND PLAN: 1. Nonoliguric acute kidney injury on top of chronic kidney disease, etiology secondary to hemodynamics. Renal function stabilized. Will repeat renal panel. Monitor closely. 2. 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 Continue current medical management. Continue disease factor modification. 3. Mineral bone disorder. Monitor calcium and phosphorus levels. 4. Coronary artery disease. Continue current treatment plan. 5. Hypertension. Continue current blood pressure regimen. 6. History of cerebrovascular accident. Continue current medical management. Dictated By: Alex Bah DO /trini/tres /Document#: [id number]
--- NOTE | 2017-06-04 12:16 | PN ---
Date/Time of Note Date/Time of Note DATE: 06/04/17 TIME: 12:10 Assessment/Plan VTE Prophylaxis VTE Prophylaxis Intervention: other Lines/Catheters [facility] Urinary Cath still in place: No Assessment/Plan Problems: (1) Right pontine cerebrovascular accident Status: Acute Comment: He is in the acute rehabilitation unit and going through rehabilitation with modest improvement in the left shoulder girdle (2) Seizure disorder Status: Chronic Comment: Controlled with medications (3) Hyperlipidemia Status: Chronic Comment: Stable on statin therapy Qualifiers: Hyperlipidemia type: pure hypercholesterolemia Qualified Code: E78.00 - Pure hypercholesterolemia (4) Hypertension, essential Status: Chronic Comment: Adequate blood pressure control (5) BPH (benign prostatic hypertrophy) with urinary retention Status: Chronic Comment: Adequate control with medication regimen (6) Chronic kidney disease, stage III (moderate) Status: Chronic Comment: Persistent and stable (7) Type 2 diabetes mellitus with diabetic nephropathy, with long-term current use of insulin Status: Chronic Comment: This patient's blood sugar control is at target with current regimen Subjective 24 Hr Interval Summary Free Text/Dictation Patient sitting at bed side conversing with his cousins Constitutional: no complaints Respiratory: no complaints Cardiovascular: no complaints Gastrointestinal: no complaints Genitourinary: no complaints Musculoskeletal: no complaints Exam/Review of Systems Vital Signs Vitals Vital Signs Date Time Temp Pulse Resp B/P Pulse Ox O2 Delivery O2 Flow Rate FiO2 06/04/17 08:44 98.3 82 17 121/77 98 Room Air Intake and Output 06/03/17 06/03/17 06/04/17 15:00 23:00 07:00 Intake Total 420 ml Balance 420 ml Exam Constitutional: alert, oriented Respiratory: clear to auscultation, normal air movement Cardiovascular: nl pulses, regular rate and rhythm Gastrointestinal: nl liver, spleen, non-tender, soft Results Results 24 hrs Laboratory Tests Test 06/03/17 12:16 06/03/17 17:24 06/03/17 21:22 06/04/17 07:51 Bedside Glucose 117 150 128 104 Test 06/04/17 11:53 Bedside Glucose 111 Medications Medications Current Medications Ondansetron HCl (Zofran Inj) 4 mg Q6H PRN IV NAUSEA AND/OR VOMITING; Start at 21:00 Acetaminophen (Tylenol Tab) 650 mg Q6H PRN PO PAIN LEVEL 1-3 OR FEVER; Start at 20:50 Famotidine (Pepcid) 20 mg DAILY PO Last administered on 06/04/17 08:47; Admin Dose 20 MG; Start 05/27/17 at 09:00 Diagnostic Test (Pha) (Accu-Chek) 1 ea 02 XX Last administered on 06/01/17 02: 39; Admin Dose 1 EA; Start 05/27/17 at 02:00 Miscellaneous Information 1 ea NOTE XX ; Start 05/27/17 at 09:00 Glucose (Glutose) 15 gm Q15M PRN PO DECREASED GLUCOSE; Start 05/26/17 at 20:53 Glucose (Glutose) 22.5 gm Q15M PRN PO DECREASED GLUCOSE; Start 05/26/17 at 20: 53 Dextrose (D50w Syringe) 25 ml Q15M PRN IV DECREASED GLUCOSE; Start 05/26/17 at 20:52 Dextrose (D50w Syringe) 50 ml Q15M PRN IV DECREASED GLUCOSE; Start 05/26/17 at 20:52 Glucagon (Glucagen) 1 mg Q15M PRN IM DECREASED GLUCOSE; Start 05/26/17 at 20:52 Glucose (Glutose) 15 gm Q15M PRN BUCCAL DECREASED GLUCOSE; Start 05/27/17 at 20 :53 Atorvastatin Calcium (Lipitor) 80 mg HS PO Last administered on 06/02/17 20:57 ; Admin Dose 80 MG; Start 05/26/17 at 21:00 Aspirin (Aspirin) 81 mg DAILY PO Last administered on 06/04/17 08:46; Admin Dose 81 MG; Start 05/27/17 at 09:00 Clopidogrel Bisulfate (plaVIX) 75 mg DAILY PO Last administered on 06/04/17 08 :47; Admin Dose 75 MG; Start 05/27/17 at 09:00 Levetiracetam (Keppra) 500 mg BID PO Last administered on 06/04/17 08:46; Admin Dose 500 MG; Start 05/26/17 at 21:00 Lorazepam (Ativan) 0.5 mg HS PRN PO ANXIETY Last administered on 05/28/17 01: 37; Admin Dose 0.5 MG; Start 05/26/17 at 20:58 Zolpidem Tartrate (Ambien) 5 mg HS PRN PO INSOMNIA Last administered on 21:02; Admin Dose 5 MG; Start 05/26/17 at 22:30 Bisacodyl (Dulcolax Supp) 10 mg DAILY PRN [place] CONSTIPATION; Start 05/27/17 at 04 :30 Magnesium Hydroxide (Milk Of Mag) 30 ml BID PRN PO CONSTIPATION; Start at 04:30 Lactulose (Enulose) 20 gm DAILY PRN PO CONSTIPATION; Start 05/27/17 at 04:30 Clonidine (Catapres) 0.1 mg Q4H PRN PO SBP > 170, DBP > 95; Start 05/29/17 at 20:00 Metronidazole (Flagyl) 500 mg Q8 PO Last administered on 06/04/17 06:58; Admin Dose 500 MG; Start 06/01/17 at 14:00; Stop 06/10/17 at 13:59 Docusate Sodium (Colace) 100 mg BID PO Last administered on 06/03/17 08:39; Admin Dose 100 MG; Start 06/01/17 at 21:00 Insulin Glargine (Lantus) 25 unit HS SC Last administered on 06/03/17 22:08; Admin Dose 25 UNIT; Start 06/02/17 at 21:00 Hydralazine HCl (Apresoline) 25 mg Q12 PO Last administered on 06/04/17 08:47 ; Admin Dose 25 MG; Start 06/03/17 at 09:00 Losartan Potassium (Cozaar) 100 mg DAILY PO Last administered on 06/04/17 08: 46; Admin Dose 100 MG; Start 06/03/17 at 09:00 Doxazosin Mesylate (Cardura) 2 mg HS PO ; Start 06/03/17 at 21:00 Linagliptin (Tradjenta) 5 mg DAILY PO Last administered on 06/04/17 08:47; Admin Dose 5 MG; Start 06/03/17 at 09:00 MAYRA ANDERS MD Jun 04, 2017 12:16
[2017-06-04 20:00] VITALS: BP 113/74; RESP 18
[2017-06-04] MEDS: ATORVASTATIN 80 MG TAB PO SCH (20:52)
[2017-06-04] MEDS: DOXAZOSIN 2 MG TAB PO SCH (20:53)
[2017-06-04] MEDS: INSULIN GLARGINE [LANtus] 3 ML PEN SC SCH (20:54)
[2017-06-05 02:00] VITALS: BP 127/68; RESP 18
[2017-06-05] MEDS: ACCU-CHEK XX SCH (02:00)
[2017-06-05] MEDS: metroNIDAZOLE 500 MG TAB PO SCH ×3 (05:55→21:29)
[2017-06-05 07:30] VITALS: BP 152/80; RESP 18
[2017-06-05] MEDS: metFORMIN 500 MG TAB PO SCH ×2 (07:35→17:00)
[2017-06-05] MEDS: INSULIN ASPART [NOVOLOG] 3 ML PEN SC SCH ×4 (08:27→20:57)
[2017-06-05] MEDS: ASPIRIN 81 MG TAB PO SCH (08:27)
[2017-06-05] MEDS: LEVETIRACETAM 500 MG TAB PO SCH ×2 (08:33→20:47)
[2017-06-05] MEDS: LOSARTAN 50 MG TAB PO SCH (08:33)
[2017-06-05] MEDS: CLOPIDOGREL 75 MG TAB PO SCH (08:33)
[2017-06-05] MEDS: FAMOTIDINE 20 MG TAB PO SCH (08:33)
[2017-06-05] MEDS: LINAGLIPTIN 5 MG TABLET PO SCH (08:33)
[2017-06-05] MEDS: DOCUSATE SODIUM 100 MG CAP PO SCH ×2 (08:37→21:00)
--- NOTE | 2017-06-05 11:21 | CONS ---
Date/Time of Note Date/Time of Note DATE: 06/05/17 TIME: 11:20 Consult Date/Type/Reason Admit Date/Time May 26, 2017 at 19:07 Subjective Comfortable Objective Vital Signs Date Time Temp Pulse Resp B/P Pulse Ox O2 Delivery O2 Flow Rate FiO2 06/05/17 07:30 98.6 76 18 152/80 95 06/04/17 08:44 Room Air Intake and Output 06/04/17 06/04/17 06/05/17 15:00 23:00 07:00 Intake Total 200 ml Balance 200 ml Interdisciplinary Team Conference: Bowel-continent Bladder-continent Integument- intact OT- Dressing-minimal moderate Bathing-minimal moderate Toileting-minimal moderate PT Bed mobility-minimal Transfers-minimal contact-guard Ambulation-minimal contact-guard 150 feet Wheelchair mobility-standby assist Speech therapy Cognition-minimal Interdisciplinary team conference held today please see note. Team is working towards discharge on 06/08 with physical therapy and Occupational Therapy follow- up. Results/Medications Results 24 hrs Laboratory Tests Test 06/04/17 11:53 06/04/17 12:29 06/04/17 17:26 06/04/17 20:51 Bedside Glucose 111 199 188 Lab Scanned Report REFERENCE LAB Test 06/05/17 02:46 06/05/17 07:59 Bedside Glucose 190 206 Medications Current Medications Ondansetron HCl (Zofran Inj) 4 mg Q6H PRN IV NAUSEA AND/OR VOMITING; Start at 21:00 Acetaminophen (Tylenol Tab) 650 mg Q6H PRN PO PAIN LEVEL 1-3 OR FEVER; Start at 20:50 Famotidine (Pepcid) 20 mg DAILY PO Last administered on 06/05/17 08:33; Admin Dose 20 MG; Start 05/27/17 at 09:00 Diagnostic Test (Pha) (Accu-Chek) 1 ea 02 XX Last administered on 06/05/17 02: 00; Admin Dose 1 EA; Start 05/27/17 at 02:00 Miscellaneous Information 1 ea NOTE XX ; Start 05/27/17 at 09:00 Glucose (Glutose) 15 gm Q15M PRN PO DECREASED GLUCOSE; Start 05/26/17 at 20:53 Glucose (Glutose) 22.5 gm Q15M PRN PO DECREASED GLUCOSE; Start 05/26/17 at 20: 53 Dextrose (D50w Syringe) 25 ml Q15M PRN IV DECREASED GLUCOSE; Start 05/26/17 at 20:52 Dextrose (D50w Syringe) 50 ml Q15M PRN IV DECREASED GLUCOSE; Start 05/26/17 at 20:52 Glucagon (Glucagen) 1 mg Q15M PRN IM DECREASED GLUCOSE; Start 05/26/17 at 20:52 Glucose (Glutose) 15 gm Q15M PRN BUCCAL DECREASED GLUCOSE; Start 05/27/17 at 20 :53 Atorvastatin Calcium (Lipitor) 80 mg HS PO Last administered on 06/04/17 20:52 ; Admin Dose 80 MG; Start 05/26/17 at 21:00 Aspirin (Aspirin) 81 mg DAILY PO Last administered on 06/05/17 08:27; Admin Dose 81 MG; Start 05/27/17 at 09:00 Clopidogrel Bisulfate (plaVIX) 75 mg DAILY PO Last administered on 06/05/17 08 :33; Admin Dose 75 MG; Start 05/27/17 at 09:00 Levetiracetam (Keppra) 500 mg BID PO Last administered on 06/05/17 08:33; Admin Dose 500 MG; Start 05/26/17 at 21:00 Lorazepam (Ativan) 0.5 mg HS PRN PO ANXIETY Last administered on 05/28/17 01: 37; Admin Dose 0.5 MG; Start 05/26/17 at 20:58 Zolpidem Tartrate (Ambien) 5 mg HS PRN PO INSOMNIA Last administered on 21:02; Admin Dose 5 MG; Start 05/26/17 at 22:30 Bisacodyl (Dulcolax Supp) 10 mg DAILY PRN [place] CONSTIPATION; Start 05/27/17 at 04 :30 Magnesium Hydroxide (Milk Of Mag) 30 ml BID PRN PO CONSTIPATION; Start at 04:30 Lactulose (Enulose) 20 gm DAILY PRN PO CONSTIPATION; Start 05/27/17 at 04:30 Clonidine (Catapres) 0.1 mg Q4H PRN PO SBP > 170, DBP > 95; Start 05/29/17 at 20:00 Metronidazole (Flagyl) 500 mg Q8 PO Last administered on 06/05/17 05:55; Admin Dose 500 MG; Start 06/01/17 at 14:00; Stop 06/10/17 at 13:59 Docusate Sodium (Colace) 100 mg BID PO Last administered on 06/03/17 08:39; Admin Dose 100 MG; Start 06/01/17 at 21:00 Insulin Glargine (Lantus) 25 unit HS SC Last administered on 06/04/17 20:54; Admin Dose 25 UNIT; Start 06/02/17 at 21:00 Hydralazine HCl (Apresoline) 25 mg Q12 PO Last administered on 06/05/17 08:32 ; Admin Dose 25 MG; Start 06/03/17 at 09:00 Losartan Potassium (Cozaar) 100 mg DAILY PO Last administered on 06/05/17 08: 33; Admin Dose 100 MG; Start 06/03/17 at 09:00 Doxazosin Mesylate (Cardura) 2 mg HS PO Last administered on 06/04/17 20:53; Admin Dose 2 MG; Start 06/03/17 at 21:00 Linagliptin (Tradjenta) 5 mg DAILY PO Last administered on 06/05/17 08:33; Admin Dose 5 MG; Start 06/03/17 at 09:00 ANDREA ALAS MD Jun 05, 2017 11:21
[2017-06-05 14:00] VITALS: BP 143/82; RESP 18
--- NOTE | 2017-06-05 14:15 | CONS ---
Date/Time of Note Date/Time of Note DATE: 06/05/17 TIME: 14:08 Assessment/Plan Assessment/Plan Chief Complaint/Hosp Course 1. 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 -Continue aspirin, Plavix and statin. -Continue with rehabilitative exercise for mobility enhancement. 2. Essential hypertension . Now stable. -Continue Norvasc, Hydralazine and Losartan. 3. Hyperglycemia with Type 2 diabetes. -Adjust Lantus to 28 units and continue ISS,Metformin and Tradjenta -Continue with carbohydrate controlled diet. 4. Seizure disorder. Stable. -Continue Keppra 5. Dyslipidemia. -On statin 4. History of coronary artery disease -Continue current medical management 5. Debility -Continue with physical therapy. 6. BPH -On Flomax 7. Chronic kidney disease stage III. -Monitor renal function closely and renally dose medications. Follow-up with nephrology recommendations. 8. Gardnerella vaginalis UTI. Patient asymptomatic. -Continue Flagylx 10days Case discussed with Problems: Consultation Date/Type/Reason Admit Date/Time May 26, 2017 at 19:07 24 HR Interval Summary Free Text/Dictation Patient with excellent participation in ARU activities. Exam/Review of Systems Vital Signs Vitals Vital Signs Date Time Temp Pulse Resp B/P Pulse Ox O2 Delivery O2 Flow Rate FiO2 06/05/17 07:30 98.6 76 18 152/80 95 06/04/17 08:44 Room Air Intake and Output 06/04/17 06/04/17 06/05/17 15:00 23:00 07:00 Intake Total 200 ml Balance 200 ml Exam General: Well developed,adequately built, not in any acute distress . HEENT: Normocephalic, Atraumatic, No laceration or hematoma; Eyes: PEERL, Conjunctiva clear, Anicteric sclera Neck: Supple without any lymphadenopathy, nontender, no JVD, no carotid bruits, trachea midline, no thyromegaly Cardiac: S1, S2 auscultated, regular rhythm and rate, no mumurs or gallop Pulmonary: Normal respiratory effort. Chest clear to auscultation bilaterally, no adventitious breath sounds GI: Abdomen normal to inspection. Soft, non tender, non- distended, no masses, no rebound tenderness or guarding. Bowel sounds active on all four quadrants Genitourinary: Deferred Extremities: Flaccid left upper extremities, left lower extremity with 4 out of 5. Full range of motion on right upper and lower. No cyanosis, clubbing, or edema. Pulses [2+] bilaterally. Neurologic: Alert to person, place, time, and situation. Affect appropriate, intact sensation. Skin: Clean,dry, and intact. No ecchymosis, no rashes, or lesions Results Results 24 hrs Laboratory Tests Test 06/04/17 17:26 06/04/17 20:51 06/05/17 02:46 06/05/17 07:59 Bedside Glucose 199 188 190 206 Test 06/05/17 12:11 06/05/17 12:44 Bedside Glucose 212 231 H Medications Medications Current Medications Ondansetron HCl (Zofran Inj) 4 mg Q6H PRN IV NAUSEA AND/OR VOMITING; Start at 21:00 Acetaminophen (Tylenol Tab) 650 mg Q6H PRN PO PAIN LEVEL 1-3 OR FEVER; Start at 20:50 Famotidine (Pepcid) 20 mg DAILY PO Last administered on 06/05/17 08:33; Admin Dose 20 MG; Start 05/27/17 at 09:00 Diagnostic Test (Pha) (Accu-Chek) 1 ea 02 XX Last administered on 06/05/17 02: 00; Admin Dose 1 EA; Start 05/27/17 at 02:00 Miscellaneous Information 1 ea NOTE XX ; Start 05/27/17 at 09:00 Glucose (Glutose) 15 gm Q15M PRN PO DECREASED GLUCOSE; Start 05/26/17 at 20:53 Glucose (Glutose) 22.5 gm Q15M PRN PO DECREASED GLUCOSE; Start 05/26/17 at 20: 53 Dextrose (D50w Syringe) 25 ml Q15M PRN IV DECREASED GLUCOSE; Start 05/26/17 at 20:52 Dextrose (D50w Syringe) 50 ml Q15M PRN IV DECREASED GLUCOSE; Start 05/26/17 at 20:52 Glucagon (Glucagen) 1 mg Q15M PRN IM DECREASED GLUCOSE; Start 05/26/17 at 20:52 Glucose (Glutose) 15 gm Q15M PRN BUCCAL DECREASED GLUCOSE; Start 05/27/17 at 20 :53 Atorvastatin Calcium (Lipitor) 80 mg HS PO Last administered on 06/04/17 20:52 ; Admin Dose 80 MG; Start 05/26/17 at 21:00 Aspirin (Aspirin) 81 mg DAILY PO Last administered on 06/05/17 08:27; Admin Dose 81 MG; Start 05/27/17 at 09:00 Clopidogrel Bisulfate (plaVIX) 75 mg DAILY PO Last administered on 06/05/17 08 :33; Admin Dose 75 MG; Start 05/27/17 at 09:00 Levetiracetam (Keppra) 500 mg BID PO Last administered on 06/05/17 08:33; Admin Dose 500 MG; Start 05/26/17 at 21:00 Lorazepam (Ativan) 0.5 mg HS PRN PO ANXIETY Last administered on 05/28/17 01: 37; Admin Dose 0.5 MG; Start 05/26/17 at 20:58 Zolpidem Tartrate (Ambien) 5 mg HS PRN PO INSOMNIA Last administered on 21:02; Admin Dose 5 MG; Start 05/26/17 at 22:30 Bisacodyl (Dulcolax Supp) 10 mg DAILY PRN [place] CONSTIPATION; Start 05/27/17 at 04 :30 Magnesium Hydroxide (Milk Of Mag) 30 ml BID PRN PO CONSTIPATION; Start at 04:30 Lactulose (Enulose) 20 gm DAILY PRN PO CONSTIPATION; Start 05/27/17 at 04:30 Clonidine (Catapres) 0.1 mg Q4H PRN PO SBP > 170, DBP > 95; Start 05/29/17 at 20:00 Metronidazole (Flagyl) 500 mg Q8 PO Last administered on 06/05/17 05:55; Admin Dose 500 MG; Start 06/01/17 at 14:00; Stop 06/10/17 at 13:59 Docusate Sodium (Colace) 100 mg BID PO Last administered on 06/03/17 08:39; Admin Dose 100 MG; Start 06/01/17 at 21:00 Insulin Glargine (Lantus) 25 unit HS SC Last administered on 06/04/17 20:54; Admin Dose 25 UNIT; Start 06/02/17 at 21:00 Hydralazine HCl (Apresoline) 25 mg Q12 PO Last administered on 06/05/17 08:32 ; Admin Dose 25 MG; Start 06/03/17 at 09:00 Losartan Potassium (Cozaar) 100 mg DAILY PO Last administered on 06/05/17 08: 33; Admin Dose 100 MG; Start 06/03/17 at 09:00 Doxazosin Mesylate (Cardura) 2 mg HS PO Last administered on 06/04/17 20:53; Admin Dose 2 MG; Start 06/03/17 at 21:00 Linagliptin (Tradjenta) 5 mg DAILY PO Last administered on 06/05/17 08:33; Admin Dose 5 MG; Start 06/03/17 at 09:00 LITA CHAVARRIA NP Jun 05, 2017 14:15
--- NOTE | 2017-06-05 15:47 | PN ---
DATE: 06/05/2017 SUBJECTIVE DATA: Patient is stable. No events overnight. No fevers, chills, nausea, vomiting. OBJECTIVE DATA: VITAL SIGNS: Blood pressure is 152/80, temperature 98.6, pulse 76, respirations 18. HEENT: Head is normocephalic. NECK: Supple. HEART: Regular rate. LUNGS: Diminished breath sounds at the base. ABDOMEN: Soft, nontender to palpation. No rebound or guarding. EXTREMITIES: Negative for clubbing or cyanosis. No edema. DERMATOLOGIC: No rashes. MUSCULOSKELETAL: No joint effusion. NEUROLOGIC: No change in exam. MEDICATIONS: Reviewed. LABORATORY AND DIAGNOSTIC DATA: Reviewed. ASSESSMENT AND PLAN: 1. Nonoliguric acute kidney injury on top of chronic kidney disease. Etiology secondary to hemodynamics. Renal function stabilized. Continue current treatment plan. Supportive care. Renally dose all meds. 2. Chronic kidney disease secondary to diabetic nephropathy. Continue current medical management. Continue disease factor modification. 3. Mineral bone disorder. Monitor calcium and phosphorus. 4. Diabetes. Continue current insulin regimen. 5. Coronary artery disease. Continue current medical management. 6. Hypertension. Continue current blood pressure regimen. 7. History of cerebrovascular accident. Continue current treatment plan. 8. Seizure disorder. Continue current medications. Dictated By: Alex Bah DO /trini/ec /Document#: [id number]
[2017-06-05 20:00] VITALS: BP 151/88; RESP 18
[2017-06-05] MEDS: ATORVASTATIN 80 MG TAB PO SCH (20:47)
[2017-06-05] MEDS: DOXAZOSIN 2 MG TAB PO SCH (20:55)
[2017-06-05] MEDS ORDERED: INSULIN GLARGINE [LANtus] 3 ML PEN SC SCH (21:00)
[2017-06-05] MEDS ORDERED: INSULIN ASPART [NOVOLOG] 3 ML PEN SC ONE (21:30)
[2017-06-05] MEDS: LORAZEPAM 0.5 MG TAB PO PRN (22:16)
[2017-06-06 02:06] VITALS: BP 145/77; RESP 18
[2017-06-06] MEDS: ACCU-CHEK XX SCH (02:15)
[2017-06-06] MEDS: metroNIDAZOLE 500 MG TAB PO SCH ×3 (06:06→22:08)
[2017-06-06] MEDS: metFORMIN 500 MG TAB PO SCH ×3 (07:35→17:33)
[2017-06-06] MEDS: INSULIN ASPART [NOVOLOG] 3 ML PEN SC SCH ×4 (07:35→21:00)
[2017-06-06 08:00] VITALS: BP 160/81; RESP 18
[2017-06-06] MEDS: LINAGLIPTIN 5 MG TABLET PO SCH (08:07)
[2017-06-06] MEDS: CLOPIDOGREL 75 MG TAB PO SCH (08:08)
[2017-06-06] MEDS: ASPIRIN 81 MG TAB PO SCH (08:08)
[2017-06-06] MEDS: DOCUSATE SODIUM 100 MG CAP PO SCH ×2 (08:08→20:37)
[2017-06-06] MEDS: LOSARTAN 50 MG TAB PO SCH (08:09)
[2017-06-06] MEDS: FAMOTIDINE 20 MG TAB PO SCH (08:09)
[2017-06-06] MEDS: LEVETIRACETAM 500 MG TAB PO SCH ×2 (08:09→20:37)
--- NOTE | 2017-06-06 10:42 | PN ---
DATE: 06/06/2017 SUBJECTIVE DATA: The patient is stable. No events overnight. No fevers, chills, nausea, vomiting. OBJECTIVE DATA: VITAL SIGNS: Blood pressure 160/81, temperature 98.3, respirations 18, pulse is 73. HEENT: Head is normocephalic. NECK: Supple. HEART: Regular rate. LUNGS: Show diminished breath sounds at the base. ABDOMEN: Soft, nontender to palpation. No rebound or guarding. EXTREMITIES: Negative for clubbing, cyanosis. No edema. DERMATOLOGIC: Clean. No rashes. MUSCULOSKELETAL: No joint effusion. NEUROLOGIC: No change in exam. MEDICATIONS: Reviewed. LABORATORY DATA: Reviewed. ASSESSMENT AND PLAN: 1. Nonoliguric acute kidney injury on top of chronic kidney disease, etiology secondary to hemodynamics. Renal function stabilized. Continue current treatment plan, supportive care. Renally dose medications. Follow up renal panel. 2. Chronic kidney disease secondary to diabetic nephropathy. Continue current medical management. 3. Mineral bone disorder. Continue to monitor calcium and phosphorus levels. 4. Diabetes. Continue Accu-Cheks and insulin sliding scale. 5. Coronary artery disease. Continue current treatment plan. 6. Hypertension. Continue current blood pressure regimen. 7. History of cerebrovascular accident. 8. Seizure disorder. Continue current medical management. Dictated By: Alxe Bah DO /trini/robles /Document#: [id number]
--- NOTE | 2017-06-06 12:06 | CONS ---
Date/Time of Note Date/Time of Note DATE: 06/06/17 TIME: 12:05 Consult Date/Type/Reason Admit Date/Time May 26, 2017 at 19:07 Subjective Comfortable Objective pulm-cta abd-soft Vital Signs Date Time Temp Pulse Resp B/P Pulse Ox O2 Delivery O2 Flow Rate FiO2 06/06/17 08:00 98.3 73 18 160/81 97 06/04/17 08:44 Room Air Intake and Output 06/05/17 06/05/17 06/06/17 15:00 23:00 07:00 Intake Total 240 ml 380 ml 300 ml Balance 240 ml 380 ml 300 ml Results/Medications Results 24 hrs Laboratory Tests Test 06/05/17 12:11 06/05/17 12:44 06/05/17 17:34 06/05/17 20:45 Bedside Glucose 212 231 H 221 H 318 H Test 06/06/17 02:11 06/06/17 06:12 06/06/17 06:50 06/06/17 07:46 Bedside Glucose 110 64 L 97 89 Medications Current Medications Ondansetron HCl (Zofran Inj) 4 mg Q6H PRN IV NAUSEA AND/OR VOMITING; Start at 21:00 Acetaminophen (Tylenol Tab) 650 mg Q6H PRN PO PAIN LEVEL 1-3 OR FEVER Last administered on 06/05/17 20:47; Admin Dose 650 MG; Start 05/26/17 at 20:50 Famotidine (Pepcid) 20 mg DAILY PO Last administered on 06/06/17 08:09; Admin Dose 20 MG; Start 05/27/17 at 09:00 Diagnostic Test (Pha) (Accu-Chek) 1 ea 02 XX Last administered on 06/06/17 02: 15; Admin Dose 1 EA; Start 05/27/17 at 02:00 Miscellaneous Information 1 ea NOTE XX ; Start 05/27/17 at 09:00 Glucose (Glutose) 15 gm Q15M PRN PO DECREASED GLUCOSE; Start 05/26/17 at 20:53 Glucose (Glutose) 22.5 gm Q15M PRN PO DECREASED GLUCOSE; Start 05/26/17 at 20: 53 Dextrose (D50w Syringe) 25 ml Q15M PRN IV DECREASED GLUCOSE; Start 05/26/17 at 20:52 Dextrose (D50w Syringe) 50 ml Q15M PRN IV DECREASED GLUCOSE; Start 05/26/17 at 20:52 Glucagon (Glucagen) 1 mg Q15M PRN IM DECREASED GLUCOSE; Start 05/26/17 at 20:52 Glucose (Glutose) 15 gm Q15M PRN BUCCAL DECREASED GLUCOSE; Start 05/27/17 at 20 :53 Atorvastatin Calcium (Lipitor) 80 mg HS PO Last administered on 06/05/17 20:47 ; Admin Dose 80 MG; Start 05/26/17 at 21:00 Aspirin (Aspirin) 81 mg DAILY PO Last administered on 06/06/17 08:08; Admin Dose 81 MG; Start 05/27/17 at 09:00 Clopidogrel Bisulfate (plaVIX) 75 mg DAILY PO Last administered on 06/06/17 08 :08; Admin Dose 75 MG; Start 05/27/17 at 09:00 Levetiracetam (Keppra) 500 mg BID PO Last administered on 06/06/17 08:09; Admin Dose 500 MG; Start 05/26/17 at 21:00 Lorazepam (Ativan) 0.5 mg HS PRN PO ANXIETY Last administered on 06/05/17 22: 16; Admin Dose 0.5 MG; Start 05/26/17 at 20:58 Zolpidem Tartrate (Ambien) 5 mg HS PRN PO INSOMNIA Last administered on 21:02; Admin Dose 5 MG; Start 05/26/17 at 22:30 Bisacodyl (Dulcolax Supp) 10 mg DAILY PRN [place] CONSTIPATION; Start 05/27/17 at 04 :30 Magnesium Hydroxide (Milk Of Mag) 30 ml BID PRN PO CONSTIPATION; Start at 04:30 Lactulose (Enulose) 20 gm DAILY PRN PO CONSTIPATION; Start 05/27/17 at 04:30 Clonidine (Catapres) 0.1 mg Q4H PRN PO SBP > 170, DBP > 95; Start 05/29/17 at 20:00 Metronidazole (Flagyl) 500 mg Q8 PO Last administered on 06/06/17 06:06; Admin Dose 500 MG; Start 06/01/17 at 14:00; Stop 06/10/17 at 13:59 Docusate Sodium (Colace) 100 mg BID PO Last administered on 06/06/17 08:08; Admin Dose 100 MG; Start 06/01/17 at 21:00 Hydralazine HCl (Apresoline) 25 mg Q12 PO Last administered on 06/06/17 08:08 ; Admin Dose 25 MG; Start 06/03/17 at 09:00 Losartan Potassium (Cozaar) 100 mg DAILY PO Last administered on 06/06/17 08: 09; Admin Dose 100 MG; Start 06/03/17 at 09:00 Doxazosin Mesylate (Cardura) 2 mg HS PO Last administered on 06/05/17 20:55; Admin Dose 2 MG; Start 06/03/17 at 21:00 Linagliptin (Tradjenta) 5 mg DAILY PO Last administered on 06/06/17 08:07; Admin Dose 5 MG; Start 06/03/17 at 09:00 Insulin Glargine (Lantus) 28 unit HS SC Last administered on 06/05/17 20:58; Admin Dose 28 UNIT; Start 06/05/17 at 21:00 Assessment/Plan Additional Assessment/Plan Rehabilitation-Right pontine lacunar infarct CVA with left-sided weakness. Continue rehab treatment plan Hypertension. Diabetes mellitus. Seizure disorder. History of DVT. Hyperlipidemia. History of pacemaker. ANDREA ALAS MD Jun 06, 2017 12:06
--- NOTE | 2017-06-06 13:38 | CONS ---
Date/Time of Note Date/Time of Note DATE: 06/06/17 TIME: 13:34 Assessment/Plan Assessment/Plan Chief Complaint/Hosp Course 1. 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 -Continue aspirin, Plavix and statin. -Continue with rehabilitative exercise for mobility enhancement. 2. Essential hypertension . Now stable. -Continue Norvasc, Hydralazine and Losartan. 3. Type 2 diabetes.Had one time hypoglycemic event this AM. -Decrease Lantus to 26 units and continue ISS,Metformin and Tradjenta -Continue with carbohydrate controlled diet. 4. Seizure disorder. Stable. -Continue Keppra 5. Dyslipidemia. -On statin 4. History of coronary artery disease -Continue current medical management 5. Debility -Continue with physical therapy. 6. BPH -On Flomax 7. Chronic kidney disease stage III. -Monitor renal function closely and renally dose medications. Follow-up with nephrology recommendations. 8. Gardnerella vaginalis UTI. Patient asymptomatic. -Continue Flagylx 10days PLAN:Overall patient with improvement. Working towards DC in AM. Case discussed with Problems: Consultation Date/Type/Reason Admit Date/Time May 26, 2017 at 19:07 24 HR Interval Summary Free Text/Dictation Overall doing well. No acute distress. Exam/Review of Systems Vital Signs Vitals Vital Signs Date Time Temp Pulse Resp B/P Pulse Ox O2 Delivery O2 Flow Rate FiO2 06/06/17 08:00 98.3 73 18 160/81 97 06/04/17 08:44 Room Air Intake and Output 06/05/17 06/05/17 06/06/17 15:00 23:00 07:00 Intake Total 240 ml 380 ml 300 ml Balance 240 ml 380 ml 300 ml Exam General: Well developed,adequately built, not in any acute distress . HEENT: Normocephalic, Atraumatic, No laceration or hematoma; Eyes: PEERL, Conjunctiva clear, Anicteric sclera Neck: Supple without any lymphadenopathy, nontender, no JVD, no carotid bruits, trachea midline, no thyromegaly Cardiac: S1, S2 auscultated, regular rhythm and rate, no mumurs or gallop Pulmonary: Normal respiratory effort. Chest clear to auscultation bilaterally, no adventitious breath sounds GI: Abdomen normal to inspection. Soft, non tender, non- distended, no masses, no rebound tenderness or guarding. Bowel sounds active on all four quadrants Genitourinary: Deferred Extremities: Flaccid left upper extremities, left lower extremity with 4 out of 5. Full range of motion on right upper and lower. No cyanosis, clubbing, or edema. Pulses [2+] bilaterally. Neurologic: Alert to person, place, time, and situation. Affect appropriate, intact sensation. Skin: Clean,dry, and intact. No ecchymosis, no rashes, or lesions Results Results 24 hrs Laboratory Tests Test 06/05/17 17:34 06/05/17 20:45 06/06/17 02:11 06/06/17 06:12 Bedside Glucose 221 H 318 H 110 64 L Test 06/06/17 06:50 06/06/17 07:46 06/06/17 12:02 Bedside Glucose 97 89 147 Medications Medications Current Medications Ondansetron HCl (Zofran Inj) 4 mg Q6H PRN IV NAUSEA AND/OR VOMITING; Start at 21:00 Acetaminophen (Tylenol Tab) 650 mg Q6H PRN PO PAIN LEVEL 1-3 OR FEVER Last administered on 06/05/17 20:47; Admin Dose 650 MG; Start 05/26/17 at 20:50 Famotidine (Pepcid) 20 mg DAILY PO Last administered on 06/06/17 08:09; Admin Dose 20 MG; Start 05/27/17 at 09:00 Diagnostic Test (Pha) (Accu-Chek) 1 ea 02 XX Last administered on 06/06/17 02: 15; Admin Dose 1 EA; Start 05/27/17 at 02:00 Miscellaneous Information 1 ea NOTE XX ; Start 05/27/17 at 09:00 Glucose (Glutose) 15 gm Q15M PRN PO DECREASED GLUCOSE; Start 05/26/17 at 20:53 Glucose (Glutose) 22.5 gm Q15M PRN PO DECREASED GLUCOSE; Start 05/26/17 at 20: 53 Dextrose (D50w Syringe) 25 ml Q15M PRN IV DECREASED GLUCOSE; Start 05/26/17 at 20:52 Dextrose (D50w Syringe) 50 ml Q15M PRN IV DECREASED GLUCOSE; Start 05/26/17 at 20:52 Glucagon (Glucagen) 1 mg Q15M PRN IM DECREASED GLUCOSE; Start 05/26/17 at 20:52 Glucose (Glutose) 15 gm Q15M PRN BUCCAL DECREASED GLUCOSE; Start 05/27/17 at 20 :53 Atorvastatin Calcium (Lipitor) 80 mg HS PO Last administered on 06/05/17 20:47 ; Admin Dose 80 MG; Start 05/26/17 at 21:00 Aspirin (Aspirin) 81 mg DAILY PO Last administered on 06/06/17 08:08; Admin Dose 81 MG; Start 05/27/17 at 09:00 Clopidogrel Bisulfate (plaVIX) 75 mg DAILY PO Last administered on 06/06/17 08 :08; Admin Dose 75 MG; Start 05/27/17 at 09:00 Levetiracetam (Keppra) 500 mg BID PO Last administered on 06/06/17 08:09; Admin Dose 500 MG; Start 05/26/17 at 21:00 Lorazepam (Ativan) 0.5 mg HS PRN PO ANXIETY Last administered on 06/05/17 22: 16; Admin Dose 0.5 MG; Start 05/26/17 at 20:58 Zolpidem Tartrate (Ambien) 5 mg HS PRN PO INSOMNIA Last administered on 21:02; Admin Dose 5 MG; Start 05/26/17 at 22:30 Bisacodyl (Dulcolax Supp) 10 mg DAILY PRN [place] CONSTIPATION; Start 05/27/17 at 04 :30 Magnesium Hydroxide (Milk Of Mag) 30 ml BID PRN PO CONSTIPATION; Start at 04:30 Lactulose (Enulose) 20 gm DAILY PRN PO CONSTIPATION; Start 05/27/17 at 04:30 Clonidine (Catapres) 0.1 mg Q4H PRN PO SBP > 170, DBP > 95; Start 05/29/17 at 20:00 Metronidazole (Flagyl) 500 mg Q8 PO Last administered on 06/06/17 06:06; Admin Dose 500 MG; Start 06/01/17 at 14:00; Stop 06/10/17 at 13:59 Docusate Sodium (Colace) 100 mg BID PO Last administered on 06/06/17 08:08; Admin Dose 100 MG; Start 06/01/17 at 21:00 Hydralazine HCl (Apresoline) 25 mg Q12 PO Last administered on 06/06/17 08:08 ; Admin Dose 25 MG; Start 06/03/17 at 09:00 Losartan Potassium (Cozaar) 100 mg DAILY PO Last administered on 06/06/17 08: 09; Admin Dose 100 MG; Start 06/03/17 at 09:00 Doxazosin Mesylate (Cardura) 2 mg HS PO Last administered on 06/05/17 20:55; Admin Dose 2 MG; Start 06/03/17 at 21:00 Linagliptin (Tradjenta) 5 mg DAILY PO Last administered on 06/06/17 08:07; Admin Dose 5 MG; Start 06/03/17 at 09:00 Insulin Glargine (Lantus) 28 unit HS SC Last administered on 06/05/17 20:58; Admin Dose 28 UNIT; Start 06/05/17 at 21:00 LITA CHAVARRIA NP Jun 06, 2017 13:38
[2017-06-06 20:00] VITALS: BP 182/100; RESP 18
[2017-06-06] MEDS: ATORVASTATIN 80 MG TAB PO SCH (20:37)
[2017-06-06] MEDS: DOXAZOSIN 2 MG TAB PO SCH (20:38)
[2017-06-06] MEDS ORDERED: INSULIN GLARGINE [LANtus] 3 ML PEN SC SCH (21:00)
[2017-06-07] MEDS: ACCU-CHEK XX SCH (02:00)
[2017-06-07 02:04] VITALS: BP 151/81; RESP 18
[2017-06-07] MEDS: metroNIDAZOLE 500 MG TAB PO SCH ×3 (06:49→21:19)
[2017-06-07] MEDS: metFORMIN 500 MG TAB PO SCH ×2 (07:35→08:26)
[2017-06-07] MEDS: INSULIN ASPART [NOVOLOG] 3 ML PEN SC SCH ×4 (07:35→21:00)
[2017-06-07 07:59] LABS: CALCIUM 9.2 mg/dl (8.4-10.2); CREATININE 2.61 mg/dl (0.61-1.24); PHOSPHORUS 4.1 mg/dl (2.5-4.9); POTASSIUM 4.4 mmol/L (3.5-5.1)
[2017-06-07] MEDS: LOSARTAN 50 MG TAB PO SCH (08:36)
[2017-06-07] MEDS: FAMOTIDINE 20 MG TAB PO SCH (08:37)
[2017-06-07] MEDS: LEVETIRACETAM 500 MG TAB PO SCH ×2 (08:38→21:12)
[2017-06-07] MEDS: LINAGLIPTIN 5 MG TABLET PO SCH (08:38)
[2017-06-07] MEDS: ASPIRIN 81 MG TAB PO SCH (08:40)
[2017-06-07] MEDS: CLOPIDOGREL 75 MG TAB PO SCH (08:40)
[2017-06-07] MEDS: DOCUSATE SODIUM 100 MG CAP PO SCH ×2 (08:41→21:00)
--- NOTE | 2017-06-07 11:00 | PN ---
DATE: 06/07/2017 SUBJECTIVE: The patient is stable. No events overnight. No fevers, chills, nausea, vomiting. No shortness of breath. OBJECTIVE DATA: VITAL SIGNS: Blood pressure is 151/81, respirations 18, pulse 71, temperature 98.0 HEENT: Head is normocephalic. NECK: Supple. HEART: Regular rate. LUNGS: Diminished breath sounds at the base. ABDOMEN: Soft, nontender to palpation. No rebound or guarding. EXTREMITIES: Negative for clubbing, cyanosis. No edema. DERMATOLOGIC: Clean. No rashes. MUSCULOSKELETAL: No joint effusion. NEUROLOGIC: No change in exam. MEDICATIONS: Reviewed. LABORATORY AND DIAGNOSTIC DATA: Showed sodium 144, potassium 4.4, BUN 37, creatinine 2.61. ASSESSMENT AND PLAN: 1. Nonoliguric acute kidney injury on top of chronic kidney disease, etiology secondary to hemodynamics. Renal function stabilized. Continue current treatment plan. Supportive care. Renally dose all meds. 2. Chronic kidney disease secondary to diabetic nephropathy. Continue current medical management. 3. Mineral bone disorder. Monitor calcium and phosphorus levels. 4. Diabetes. Continue Accu-Cheks and sliding scale. 5. Coronary artery disease. Continue current treatment plan. 6. Hypertension. Continue current blood pressure regimen. 7. History of cerebrovascular accident. 8. Seizure disorder. Continue medical management. Dictated By: Alex Bah DO /[email or web address] /Document#: [id number]
--- NOTE | 2017-06-07 11:43 | CONS ---
Date/Time of Note Date/Time of Note DATE: 06/07/17 TIME: 11:43 Consult Date/Type/Reason Admit Date/Time May 26, 2017 at 19:07 Subjective comfortable Objective pulm-cta cga ambulation Vital Signs Date Time Temp Pulse Resp B/P Pulse Ox O2 Delivery O2 Flow Rate FiO2 06/07/17 02:04 98.0 71 18 151/81 96 06/04/17 08:44 Room Air Intake and Output 06/06/17 06/06/17 06/07/17 14:59 22:59 06:59 Intake Total 800 ml 400 ml 380 ml Balance 800 ml 400 ml 380 ml Results/Medications Result Diagram: 06/07/1723 Results 24 hrs Laboratory Tests Test 06/06/17 12:02 06/06/17 17:20 06/06/17 20:35 06/07/17 06:23 Bedside Glucose 147 97 153 Sodium Level 144 Potassium Level 4.4 Chloride Level 105 Carbon Dioxide Level 28 Anion Gap 15 Blood Urea Nitrogen 37 H Creatinine 2.61 H Glucose Level 84 Calcium Level 9.2 Phosphorus Level 4.1 Magnesium Level 2.0 Test 06/07/17 07:49 Bedside Glucose 75 Medications Current Medications Ondansetron HCl (Zofran Inj) 4 mg Q6H PRN IV NAUSEA AND/OR VOMITING; Start at 21:00 Acetaminophen (Tylenol Tab) 650 mg Q6H PRN PO PAIN LEVEL 1-3 OR FEVER Last administered on 06/05/17 20:47; Admin Dose 650 MG; Start 05/26/17 at 20:50 Famotidine (Pepcid) 20 mg DAILY PO Last administered on 06/07/17 08:37; Admin Dose 20 MG; Start 05/27/17 at 09:00 Diagnostic Test (Pha) (Accu-Chek) 1 ea 02 XX Last administered on 06/06/17 02: 15; Admin Dose 1 EA; Start 05/27/17 at 02:00 Miscellaneous Information 1 ea NOTE XX ; Start 05/27/17 at 09:00 Glucose (Glutose) 15 gm Q15M PRN PO DECREASED GLUCOSE; Start 05/26/17 at 20:53 Glucose (Glutose) 22.5 gm Q15M PRN PO DECREASED GLUCOSE; Start 05/26/17 at 20: 53 Dextrose (D50w Syringe) 25 ml Q15M PRN IV DECREASED GLUCOSE; Start 05/26/17 at 20:52 Dextrose (D50w Syringe) 50 ml Q15M PRN IV DECREASED GLUCOSE; Start 05/26/17 at 20:52 Glucagon (Glucagen) 1 mg Q15M PRN IM DECREASED GLUCOSE; Start 05/26/17 at 20:52 Glucose (Glutose) 15 gm Q15M PRN BUCCAL DECREASED GLUCOSE; Start 05/27/17 at 20 :53 Atorvastatin Calcium (Lipitor) 80 mg HS PO Last administered on 06/06/17 20:37 ; Admin Dose 80 MG; Start 05/26/17 at 21:00 Aspirin (Aspirin) 81 mg DAILY PO Last administered on 06/07/17 08:40; Admin Dose 81 MG; Start 05/27/17 at 09:00 Clopidogrel Bisulfate (plaVIX) 75 mg DAILY PO Last administered on 06/07/17 08 :40; Admin Dose 75 MG; Start 05/27/17 at 09:00 Levetiracetam (Keppra) 500 mg BID PO Last administered on 06/07/17 08:38; Admin Dose 500 MG; Start 05/26/17 at 21:00 Lorazepam (Ativan) 0.5 mg HS PRN PO ANXIETY Last administered on 06/05/17 22: 16; Admin Dose 0.5 MG; Start 05/26/17 at 20:58 Zolpidem Tartrate (Ambien) 5 mg HS PRN PO INSOMNIA Last administered on 21:02; Admin Dose 5 MG; Start 05/26/17 at 22:30 Bisacodyl (Dulcolax Supp) 10 mg DAILY PRN [place] CONSTIPATION; Start 05/27/17 at 04 :30 Magnesium Hydroxide (Milk Of Mag) 30 ml BID PRN PO CONSTIPATION; Start at 04:30 Lactulose (Enulose) 20 gm DAILY PRN PO CONSTIPATION; Start 05/27/17 at 04:30 Clonidine (Catapres) 0.1 mg Q4H PRN PO SBP > 170, DBP > 95 Last administered on 06/06/17 20:37; Admin Dose 0.1 MG; Start 05/29/17 at 20:00 Metronidazole (Flagyl) 500 mg Q8 PO Last administered on 8/30/17at 06:49; Admin Dose 500 MG; Start 06/01/17 at 14:00; Stop 06/10/17 at 13:59 Docusate Sodium (Colace) 100 mg BID PO Last administered on 06/06/17 20:37; Admin Dose 100 MG; Start 06/01/17 at 21:00 Hydralazine HCl (Apresoline) 25 mg Q12 PO Last administered on 06/07/17 08:35 ; Admin Dose 25 MG; Start 06/03/17 at 09:00 Losartan Potassium (Cozaar) 100 mg DAILY PO Last administered on 06/07/17 08: 36; Admin Dose 100 MG; Start 06/03/17 at 09:00 Doxazosin Mesylate (Cardura) 2 mg HS PO Last administered on 06/06/17 20:38; Admin Dose 2 MG; Start 06/03/17 at 21:00 Linagliptin (Tradjenta) 5 mg DAILY PO Last administered on 06/07/17 08:38; Admin Dose 5 MG; Start 06/03/17 at 09:00 Insulin Glargine (Lantus) 26 unit HS SC Last administered on 06/06/17 20:42; Admin Dose 26 UNIT; Start 06/06/17 at 21:00 Assessment/Plan Additional Assessment/Plan Rehabilitation-Right pontine lacunar infarct CVA with left-sided weakness. Continue rehab activities, with anticipated dc 06/08 Hypertension. Diabetes mellitus. Seizure disorder. History of DVT. Hyperlipidemia. History of pacemaker. ANDREA ALAS MD Jun 07, 2017 11:43
--- NOTE | 2017-06-07 14:20 | CONS ---
Date/Time of Note Date/Time of Note DATE: 06/07/17 TIME: 14:19 Assessment/Plan Assessment/Plan Chief Complaint/Hosp Course 1. 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 -Continue aspirin, Plavix and statin. -Continue with rehabilitative exercise for mobility enhancement. 2. Essential hypertension . Now stable. -Continue Norvasc, Hydralazine and Losartan. 3. Type 2 diabetes.Had one time hypoglycemic event this AM. -Decrease Lantus to 25 units and continue ISS,and Tradjenta -Continue with carbohydrate controlled diet. 4. Seizure disorder. Stable. -Continue Keppra 5. Dyslipidemia. -On statin 4. History of coronary artery disease -Continue current medical management 5. Debility -Continue with physical therapy. 6. BPH -On Flomax 7. Chronic kidney disease stage III. -Monitor renal function closely and renally dose medications. Follow-up with nephrology recommendations. 8. Gardnerella vaginalis UTI. Patient asymptomatic. -Continue Flagylx 10days PLAN:Overall patient with improvement. Working towards DC tomorrow.. Case discussed with Problems: Consultation Date/Type/Reason Admit Date/Time May 26, 2017 at 19:07 24 HR Interval Summary Free Text/Dictation No acute overnight episodes. Patient has been participating in physical therapy. Exam/Review of Systems Vital Signs Vitals Vital Signs Date Time Temp Pulse Resp B/P Pulse Ox O2 Delivery O2 Flow Rate FiO2 06/07/17 02:04 98.0 71 18 151/81 96 06/04/17 08:44 Room Air Intake and Output 06/06/17 06/06/17 06/07/17 15:00 23:00 07:00 Intake Total 800 ml 400 ml 380 ml Balance 800 ml 400 ml 380 ml Exam General: Well developed,adequately built, not in any acute distress . HEENT: Normocephalic, Atraumatic, No laceration or hematoma; Eyes: PEERL, Conjunctiva clear, Anicteric sclera Neck: Supple without any lymphadenopathy, nontender, no JVD, no carotid bruits, trachea midline, no thyromegaly Cardiac: S1, S2 auscultated, regular rhythm and rate, no mumurs or gallop Pulmonary: Normal respiratory effort. Chest clear to auscultation bilaterally, no adventitious breath sounds GI: Abdomen normal to inspection. Soft, non tender, non- distended, no masses, no rebound tenderness or guarding. Bowel sounds active on all four quadrants Genitourinary: Deferred Extremities: Flaccid left upper extremities, left lower extremity with 4 out of 5. Full range of motion on right upper and lower. No cyanosis, clubbing, or edema. Pulses [2+] bilaterally. Neurologic: Alert to person, place, time, and situation. Affect appropriate, intact sensation. Skin: Clean,dry, and intact. No ecchymosis, no rashes, or lesions Results Result Diagram: 06/07/17 0623 Results 24 hrs Laboratory Tests Test 06/06/17 17:20 06/06/17 20:35 06/07/17 06:23 06/07/17 07:49 Bedside Glucose 97 153 75 Sodium Level 144 Potassium Level 4.4 Chloride Level 105 Carbon Dioxide Level 28 Anion Gap 15 Blood Urea Nitrogen 37 H Creatinine 2.61 H Glucose Level 84 Calcium Level 9.2 Phosphorus Level 4.1 Magnesium Level 2.0 Test 06/07/17 12:14 Bedside Glucose 167 Medications Medications Current Medications Ondansetron HCl (Zofran Inj) 4 mg Q6H PRN IV NAUSEA AND/OR VOMITING; Start at 21:00 Acetaminophen (Tylenol Tab) 650 mg Q6H PRN PO PAIN LEVEL 1-3 OR FEVER Last administered on 06/05/17 20:47; Admin Dose 650 MG; Start 05/26/17 at 20:50 Famotidine (Pepcid) 20 mg DAILY PO Last administered on 06/07/17 08:37; Admin Dose 20 MG; Start 05/27/17 at 09:00 Diagnostic Test (Pha) (Accu-Chek) 1 ea 02 XX Last administered on 06/06/17 02: 15; Admin Dose 1 EA; Start 05/27/17 at 02:00 Miscellaneous Information 1 ea NOTE XX ; Start 05/27/17 at 09:00 Glucose (Glutose) 15 gm Q15M PRN PO DECREASED GLUCOSE; Start 05/26/17 at 20:53 Glucose (Glutose) 22.5 gm Q15M PRN PO DECREASED GLUCOSE; Start 05/26/17 at 20: 53 Dextrose (D50w Syringe) 25 ml Q15M PRN IV DECREASED GLUCOSE; Start 05/26/17 at 20:52 Dextrose (D50w Syringe) 50 ml Q15M PRN IV DECREASED GLUCOSE; Start 05/26/17 at 20:52 Glucagon (Glucagen) 1 mg Q15M PRN IM DECREASED GLUCOSE; Start 05/26/17 at 20:52 Glucose (Glutose) 15 gm Q15M PRN BUCCAL DECREASED GLUCOSE; Start 05/27/17 at 20 :53 Atorvastatin Calcium (Lipitor) 80 mg HS PO Last administered on 06/06/17 20:37 ; Admin Dose 80 MG; Start 05/26/17 at 21:00 Aspirin (Aspirin) 81 mg DAILY PO Last administered on 06/07/17 08:40; Admin Dose 81 MG; Start 05/27/17 at 09:00 Clopidogrel Bisulfate (plaVIX) 75 mg DAILY PO Last administered on 06/07/17 08 :40; Admin Dose 75 MG; Start 05/27/17 at 09:00 Levetiracetam (Keppra) 500 mg BID PO Last administered on 06/07/17 08:38; Admin Dose 500 MG; Start 05/26/17 at 21:00 Lorazepam (Ativan) 0.5 mg HS PRN PO ANXIETY Last administered on 06/05/17 22: 16; Admin Dose 0.5 MG; Start 05/26/17 at 20:58 Zolpidem Tartrate (Ambien) 5 mg HS PRN PO INSOMNIA Last administered on 21:02; Admin Dose 5 MG; Start 05/26/17 at 22:30 Bisacodyl (Dulcolax Supp) 10 mg DAILY PRN [place] CONSTIPATION; Start 05/27/17 at 04 :30 Magnesium Hydroxide (Milk Of Mag) 30 ml BID PRN PO CONSTIPATION; Start at 04:30 Lactulose (Enulose) 20 gm DAILY PRN PO CONSTIPATION; Start 05/27/17 at 04:30 Clonidine (Catapres) 0.1 mg Q4H PRN PO SBP > 170, DBP > 95 Last administered on 06/06/17 20:37; Admin Dose 0.1 MG; Start 05/29/17 at 20:00 Metronidazole (Flagyl) 500 mg Q8 PO Last administered on 06/07/17 14:17; Admin Dose 500 MG; Start 06/01/17 at 14:00; Stop 06/10/17 at 13:59 Docusate Sodium (Colace) 100 mg BID PO Last administered on 06/06/17 20:37; Admin Dose 100 MG; Start 06/01/17 at 21:00 Hydralazine HCl (Apresoline) 25 mg Q12 PO Last administered on 06/07/17 08:35 ; Admin Dose 25 MG; Start 06/03/17 at 09:00 Losartan Potassium (Cozaar) 100 mg DAILY PO Last administered on 06/07/17 08: 36; Admin Dose 100 MG; Start 06/03/17 at 09:00 Doxazosin Mesylate (Cardura) 2 mg HS PO Last administered on 06/06/17 20:38; Admin Dose 2 MG; Start 06/03/17 at 21:00 Linagliptin (Tradjenta) 5 mg DAILY PO Last administered on 06/07/17 08:38; Admin Dose 5 MG; Start 06/03/17 at 09:00 Insulin Glargine (Lantus) 26 unit HS SC Last administered on 06/06/17 20:42; Admin Dose 26 UNIT; Start 06/06/17 at 21:00 LITA CHAVARRIA NP Jun 07, 2017 14:20
[2017-06-07 20:00] VITALS: BP 165/87; RESP 18
[2017-06-07] MEDS ORDERED: INSULIN GLARGINE [LANtus] 3 ML PEN SC SCH (21:00)
[2017-06-07] MEDS: DOXAZOSIN 2 MG TAB PO SCH (21:12)
[2017-06-07] MEDS: ATORVASTATIN 80 MG TAB PO SCH (21:13)
[2017-06-08 02:00] VITALS: BP 152/78; RESP 18
[2017-06-08] MEDS: ACCU-CHEK XX SCH (02:00)
--- NOTE | 2017-06-08 05:00 | PN ---
DATE: 06/07/2017 PSYCHOLOGY -- INDIVIDUAL SESSION - [id number]: This is a follow-up on a patient who was seen last week. The patient was seen lying in bed. The patient is making improvement and sees that he is making improvement. The patient is still very frustrated about all his medical conditions. The patient only 56 years old and has numerous medical problems. The patient is prepared to go home tomorrow and is looking forward to this but is concerned about his ability to recover from all his medical problems. I worked with the patient to try to help him see the things that he can do for himself and that working on his ability to relax can help him deal with some of his overall medical issues. Dictated By: Luis A Jimenes, PHD /[email or web address] /Document#: [id number]
[2017-06-08] MEDS: metroNIDAZOLE 500 MG TAB PO SCH ×2 (06:47→13:35)
[2017-06-08 07:30] VITALS: BP 152/89; RESP 18
[2017-06-08] MEDS: INSULIN ASPART [NOVOLOG] 3 ML PEN SC SCH ×2 (07:35→12:21)
[2017-06-08] MEDS: FAMOTIDINE 20 MG TAB PO SCH (08:37)
[2017-06-08] MEDS: LINAGLIPTIN 5 MG TABLET PO SCH (08:37)
[2017-06-08] MEDS: LOSARTAN 50 MG TAB PO SCH (08:37)
[2017-06-08] MEDS: LEVETIRACETAM 500 MG TAB PO SCH (08:37)
[2017-06-08] MEDS: CLOPIDOGREL 75 MG TAB PO SCH (08:37)
[2017-06-08] MEDS: ASPIRIN 81 MG TAB PO SCH (08:38)
[2017-06-08] MEDS: DOCUSATE SODIUM 100 MG CAP PO SCH (09:00)
--- NOTE | 2017-06-08 11:34 | PN ---
DATE: 06/08/2017 SUBJECTIVE DATA: The patient is stable. No acute events overnight. OBJECTIVE DATA: VITAL SIGNS: Blood pressure is 152/89, respiration is 18, pulse 79, temperature 98.4. HEENT: Head is normocephalic. NECK: Supple. HEART: Regular rate. LUNGS: Diminished breath sounds at the base. ABDOMEN: Soft, nontender to palpation. No rebound or guarding. EXTREMITIES: Negative for clubbing, cyanosis. No edema. DERMATOLOGIC: Clean. No rashes. MUSCULOSKELETAL: No joint effusion. NEUROLOGIC: No change in exam. MEDICATIONS: Reviewed. LABORATORY AND DIAGNOSTIC DATA: Reviewed. No new labs. ASSESSMENT AND PLAN: 1. Nonoliguric acute kidney injury on top of chronic kidney disease. Etiology secondary to hemodynamics. Renal function stabilized. Continue current treatment. Supportive care. Renally dose all meds. 2. Chronic kidney disease secondary to diabetic nephropathy. Continue current medical management. 3. Mineral bone disorder. Monitor calcium and phosphorus. 4. Diabetes. Continue Accu-Cheks and sliding scale. 5. Coronary artery disease. Continue current treatment plan. 6. Hypertension. Continue current blood pressure regimen. 7. History of cerebrovascular accident. 8. Seizure disorder. Continue medical management. Dictated By: Alex Bah DO /[email or web address] /Document#: [id number]
--- NOTE | 2017-06-08 14:36 | CONS ---
Date/Time of Note Date/Time of Note DATE: 06/08/17 TIME: 14:34 Assessment/Plan Assessment/Plan Chief Complaint/Hosp Course 1. 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 -Continue aspirin, Plavix and statin. -Continue with rehabilitative exercise for mobility enhancement. 2. Essential hypertension . Now stable. -Continue Norvasc, Hydralazine and Losartan. 3. Type 2 diabetes.Had one time hypoglycemic event this AM. -Decrease Lantus to 25 units and continue ISS,and Tradjenta -Continue with carbohydrate controlled diet. 4. Seizure disorder. Stable. -Continue Keppra 5. Dyslipidemia. -On statin 4. History of coronary artery disease -Continue current medical management 5. Debility -Continue with physical therapy. 6. BPH -On Flomax 7. Chronic kidney disease stage III. -Monitor renal function closely and renally dose medications. Follow-up with nephrology recommendations. 8. Gardnerella vaginalis UTI. Patient asymptomatic. -status post treatment PLAN:Overall patient with improvement. Agree with discharge. Needs 3months dual antiplatelet followed by Plavix alone indefinite. Case discussed with Problems: Consultation Date/Type/Reason Admit Date/Time May 26, 2017 at 19:07 24 HR Interval Summary Free Text/Dictation For discharge home today Exam/Review of Systems Vital Signs Vitals Vital Signs Date Time Temp Pulse Resp B/P Pulse Ox O2 Delivery O2 Flow Rate FiO2 06/08/17 07:30 98.4 79 18 152/89 97 06/04/17 08:44 Room Air Intake and Output 06/07/17 06/07/17 06/08/17 15:00 23:00 07:00 Intake Total 800 ml 400 ml 750 ml Output Total 400 ml Balance 800 ml 400 ml 350 ml Exam General: Well developed,adequately built, not in any acute distress . HEENT: Normocephalic, Atraumatic, No laceration or hematoma; Eyes: PEERL, Conjunctiva clear, Anicteric sclera Neck: Supple without any lymphadenopathy, nontender, no JVD, no carotid bruits, trachea midline, no thyromegaly Cardiac: S1, S2 auscultated, regular rhythm and rate, no mumurs or gallop Pulmonary: Normal respiratory effort. Chest clear to auscultation bilaterally, no adventitious breath sounds GI: Abdomen normal to inspection. Soft, non tender, non- distended, no masses, no rebound tenderness or guarding. Bowel sounds active on all four quadrants Genitourinary: Deferred Extremities: Flaccid left upper extremities, left lower extremity with 4 out of 5. Full range of motion on right upper and lower. No cyanosis, clubbing, or edema. Pulses [2+] bilaterally. Neurologic: Alert to person, place, time, and situation. Affect appropriate, intact sensation. Skin: Clean,dry, and intact. No ecchymosis, no rashes, or lesions Results Result Diagram: 06/07/17 0623 Results 24 hrs Laboratory Tests Test 06/07/17 17:21 06/07/17 21:15 06/08/17 07:51 06/08/17 12:16 Bedside Glucose 143 132 90 151 Medications Medications Current Medications Ondansetron HCl (Zofran Inj) 4 mg Q6H PRN IV NAUSEA AND/OR VOMITING; Start at 21:00 Acetaminophen (Tylenol Tab) 650 mg Q6H PRN PO PAIN LEVEL 1-3 OR FEVER Last administered on 06/05/17 20:47; Admin Dose 650 MG; Start 05/26/17 at 20:50 Famotidine (Pepcid) 20 mg DAILY PO Last administered on 06/08/17 08:37; Admin Dose 20 MG; Start 05/27/17 at 09:00 Diagnostic Test (Pha) (Accu-Chek) 1 ea 02 XX Last administered on 06/06/17 02: 15; Admin Dose 1 EA; Start 05/27/17 at 02:00 Miscellaneous Information 1 ea NOTE XX ; Start 05/27/17 at 09:00 Glucose (Glutose) 15 gm Q15M PRN PO DECREASED GLUCOSE; Start 05/26/17 at 20:53 Glucose (Glutose) 22.5 gm Q15M PRN PO DECREASED GLUCOSE; Start 05/26/17 at 20: 53 Dextrose (D50w Syringe) 25 ml Q15M PRN IV DECREASED GLUCOSE; Start 05/26/17 at 20:52 Dextrose (D50w Syringe) 50 ml Q15M PRN IV DECREASED GLUCOSE; Start 05/26/17 at 20:52 Glucagon (Glucagen) 1 mg Q15M PRN IM DECREASED GLUCOSE; Start 05/26/17 at 20:52 Glucose (Glutose) 15 gm Q15M PRN BUCCAL DECREASED GLUCOSE; Start 05/27/17 at 20 :53 Atorvastatin Calcium (Lipitor) 80 mg HS PO Last administered on 06/07/17 21:13 ; Admin Dose 80 MG; Start 05/26/17 at 21:00 Aspirin (Aspirin) 81 mg DAILY PO Last administered on 06/08/17 08:38; Admin Dose 81 MG; Start 05/27/17 at 09:00 Clopidogrel Bisulfate (plaVIX) 75 mg DAILY PO Last administered on 06/08/17 08 :37; Admin Dose 75 MG; Start 05/27/17 at 09:00 Levetiracetam (Keppra) 500 mg BID PO Last administered on 06/08/17 08:37; Admin Dose 500 MG; Start 05/26/17 at 21:00 Lorazepam (Ativan) 0.5 mg HS PRN PO ANXIETY Last administered on 06/05/17 22: 16; Admin Dose 0.5 MG; Start 05/26/17 at 20:58 Zolpidem Tartrate (Ambien) 5 mg HS PRN PO INSOMNIA Last administered on 21:02; Admin Dose 5 MG; Start 05/26/17 at 22:30 Bisacodyl (Dulcolax Supp) 10 mg DAILY PRN [place] CONSTIPATION; Start 05/27/17 at 04 :30 Magnesium Hydroxide (Milk Of Mag) 30 ml BID PRN PO CONSTIPATION; Start at 04:30 Lactulose (Enulose) 20 gm DAILY PRN PO CONSTIPATION; Start 05/27/17 at 04:30 Clonidine (Catapres) 0.1 mg Q4H PRN PO SBP > 170, DBP > 95 Last administered on 06/06/17 20:37; Admin Dose 0.1 MG; Start 05/29/17 at 20:00 Metronidazole (Flagyl) 500 mg Q8 PO Last administered on 06/08/17 13:35; Admin Dose 500 MG; Start 06/01/17 at 14:00; Stop 06/10/17 at 13:59 Docusate Sodium (Colace) 100 mg BID PO Last administered on 06/06/17 20:37; Admin Dose 100 MG; Start 06/01/17 at 21:00 Hydralazine HCl (Apresoline) 25 mg Q12 PO Last administered on 06/08/17 08:38 ; Admin Dose 25 MG; Start 06/03/17 at 09:00 Losartan Potassium (Cozaar) 100 mg DAILY PO Last administered on 06/08/17 08: 37; Admin Dose 100 MG; Start 06/03/17 at 09:00 Doxazosin Mesylate (Cardura) 2 mg HS PO Last administered on 06/07/17 21:12; Admin Dose 2 MG; Start 06/03/17 at 21:00 Linagliptin (Tradjenta) 5 mg DAILY PO Last administered on 06/08/17 08:37; Admin Dose 5 MG; Start 06/03/17 at 09:00 Insulin Glargine (Lantus) 25 unit HS SC Last administered on 06/07/17 21:18; Admin Dose 25 UNIT; Start 06/07/17 at 21:00 LITA CHAVARRIA NP Jun 08, 2017 14:36
--- NOTE | 2017-06-13 10:35 | DS ---
Date/Time of Note Date/Time of Note DATE: 06/13/17 TIME: 10:34 Discharge Summary Admission/Discharge Info Admit Date/Time May 26, 2017 at 19:07 Discharge Date/Time Jun 08, 2017 at 14:45 Discharge Diagnosis 1. 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 2. Hypertension. 3. Diabetes mellitus. 4. Seizure disorder. 5. History of DVT. 6. Hyperlipidemia. 7. History of pacemaker. 8. Improvements in self-care and mobility. Patient Condition: Good Hospital Course Patient was admitted for comprehensive interdisciplinary acute rehabilitation. Patient made steady functional gains and improved from a mod level to a Supervised level for self care and mobility, including ambulating over 150 feet with the use of a front wheeled walker. Patient is being discharged home with recommendations for home health PT and OT follow up. DME recommendations: FWW; BSC; Shower Chair Patient will follow up with PMD upon DC. Home Meds Active Scripts Ondansetron Hcl* (Zofran*) 4 Mg Tablet, 4 MG PO Q8H Y for NAUSEA AND/OR VOMITING , #10 TAB Prov:RAFAEL POE 10/18/15 Reported Medications Paroxetine Hcl* (Paroxetine*) 10 Mg Tablet, 10 MG PO DAILY, TAB 05/19/17 Clopidogrel Bisulfate* (Clopidogrel Bisulfate*) 75 Mg Tablet, 75 MG PO DAILY, # 30 TAB 05/19/17 Docusate Sodium* (Docusate Sodium*) 100 Mg Capsule, 100 MG PO BID, #60 CAP 05/19/17 Tramadol Hcl* (Ultram*) 50 Mg Tablet, 50 MG PO Q6H Y for PAIN, TAB 05/19/17 Tamsulosin Hcl* (Tamsulosin Hcl*) 0.4 Mg Cap.er.24h, 0.4 MG PO DAILY, CAP 05/19/17 Ferrous Sulfate* (Ferrous Sulfate*) 325 Mg Tabec, 325 MG PO DAILY, TAB 05/19/17 Potassium Chloride* (Klor-Con*) 20 Meq Tabsr, 20 MEQ PO DAILY, TAB.SA 05/19/17 Ergocalciferol (Vitamin D2) (VITAMIN D2) 50,000 Unit Capsule, 52344 UNIT PO, CAP 05/19/17 Famotidine* (Famotidine*) 40 Mg Tablet, 40 MG PO HS, TAB 10/18/15 Nitroglycerin* (Nitrostat*) 0.4 Mg Tab.subl, 0.4 MG SL Q5MIN Y for CHEST PAIN, BOTTLE 10/18/15 Losartan Potassium* (Losartan Potassium*) 50 Mg Tablet, 50 MG PO DAILY, TAB 10/18/15 Albuterol Sulfate* (Proair HFA*) 8.5 Gm Hfa.aer.ad, 2 PUFF INH Q4H Y for WHEEZING AND SOB, #1 INHALER 10/18/15 Metformin Hcl (Glucophage) 500 Mg Tablet, 1000 MG PO BID, TAB 02/20/14 Tramadol HCl (Tramadol HCl) 50MG Tab, 50 MG PO BID, TAB 02/20/14 Aspirin Ec (Aspir 81) 81 Mg Tablet.dr, 81 MG PO DAILY 02/20/14 Gabapentin* (Gabapentin*) 300 Mg Capsule, 300 MG PO DAILY 02/02/13 Primary Care Provider Not On Staff Doctor ANDREA ALAS MD Jun 13, 2017 10:35
== END 2017-06-08 14:45 | disposition home health service (06) | DRG 57 ==
LOC: VRC 19:07
PROVIDERS: ADMIT Physical Medicine & Rehabilitation; ATTEND Internal Medicine Pulmonary Disease
DX: I69.354 Hemiplegia and hemiparesis following cerebral infarction affecting left non-dominant side (principal); N17.9 Acute kidney failure, unspecified; E11.22 Type 2 diabetes mellitus with diabetic chronic kidney disease; N18.3 Chronic kidney disease, stage 3 (moderate); N39.0 Urinary tract infection, site not specified; G40.909 Epilepsy, unspecified, not intractable, without status epilepticus; Z86.718 Personal history of other venous thrombosis and embolism; Z79.82 Long term (current) use of aspirin; I12.9 Hypertensive chronic kidney disease with stage 1 through stage 4 chronic kidney disease, or unspecified chronic kidney disease; N40.1 Benign prostatic hyperplasia with lower urinary tract symptoms; R33.8 Other retention of urine; E78.5 Hyperlipidemia, unspecified; I95.1 Orthostatic hypotension; B96.89 Other specified bacterial agents as the cause of diseases classified elsewhere; Z95.0 Presence of cardiac pacemaker; I16.0 Hypertensive urgency; F06.31 Mood disorder due to known physiological condition with depressive features
CPT/HCPCS: 80048; 80053; 81001; 82306; 82652; 82962; 83735; 83970; 84100; 85025; 86694; 86703; 87081; 87086; 92507; 92523; 92610; 97110; 97112; 97116; 97150; 97163; 97530; 97535; 97542; J0360; J1815; J7120; L1820; L1932; L2820

== ENCOUNTER 2018-05-31 12:43 | Inpatient (IN) | END 2018-06-05 15:44 | disposition home or self-care (01) | DRG 673 ==

== ENCOUNTER 2018-08-18 17:16 | Emergency (ER) | END 2018-08-18 23:24 | disposition home or self-care (01) ==

== ENCOUNTER 2019-03-29 10:08 | Inpatient (IN) | payer MEDICARE, OTHER ==
[~2019-03-29] VITALS: Ht 167.6 cm; Wt 69.9 kg
[2019-03-29] VITALS (18 sets, daily range): BP systolic 104–171; BP diastolic 60–112; PULSE 60–103; RESP 10–25; Ht 167.6 cm; Wt 69.9 kg
[~2019-03-29 10:08] MED LIST changes: -ALBU8.5H3 INH; +ALBU8.5H8 INH; +ATOR-2 PO; -CARV12.579 PO; +CARV25TA97 PO; +CLON-339 PO; +CLOP75TA19 PO; -CLOP75TA4 PO; -DILT240C79 PO; +ERGO500013 PO; -ERGO500037 PO; +FAMO40TA5 PO; -FAMO40TA52 PO; +FLUO20CA22 PO; -FURO80TA3 PO; -INSU100I17 SQ; -ISOS30TA PO; -LANT3I SC; +LEVE-5 PO; +LINA5TAB PO; +LIPA1CAP45 PO; +LORA-441 PO; +LOSA25TA2 PO; -LOSA50TA6 PO; +LUBI24CA7 PO; +MEGE40TA2 PO; -NIT4 SL; +NITR0.4T39 SL; -POTA-57 PO; -PRED20TA PO; +QUET25TA33 PO; +RANI300C7 PO; +SERT25TA83 PO; -SITA50TA2 PO; -TRAM-40 PO; +TRAM50TA PO; -TRAM50TA2 PO
[2019-03-29] MEDS ORDERED: OLANZAPINE 10 MG VIAL IM ONE (10:30)
[2019-03-29] MEDS ORDERED: ATOR40TA68 GTB (11:10)
[2019-03-29] MEDS ORDERED: BACL10TA GTB (11:10)
[2019-03-29] MEDS ORDERED: ASPI81TA52 GTB (11:10)
[2019-03-29] MEDS ORDERED: CALC500T11 GTB (11:11)
[2019-03-29] MEDS ORDERED: CLOP75TA27 GTB (11:11)
[2019-03-29] MEDS ORDERED: CYAN100092 IJ (11:13)
[2019-03-29] MEDS ORDERED: DOCU100T GTB (11:13)
[2019-03-29] MEDS ORDERED: GABA100C14 GTB (11:14)
[2019-03-29] MEDS ORDERED: DOXA2TAB GTB (11:14)
[2019-03-29] MEDS ORDERED: LEVE-5 GTB (11:15)
[2019-03-29] MEDS ORDERED: ALBU8.5H8 INH (11:16)
[2019-03-29] MEDS ORDERED: RANI300T GTB (11:16)
[2019-03-29] MEDS ORDERED: LINA5TAB GTB (11:17)
[2019-03-29] MEDS ORDERED: METO-335 GTB (11:18)
[2019-03-29] MEDS ORDERED: LOSA100T15 GTB (11:18)
[2019-03-29] MEDS ORDERED: HYDR-3672 GTB (11:19)
[2019-03-29] MEDS ORDERED: ERGO500013 GTB (11:20)
[2019-03-29] MEDS ORDERED: DILT240C79 GTB (11:20)
[2019-03-29] MEDS ORDERED: CARV12.579 GTB (11:21)
[2019-03-29] MEDS ORDERED: AZEL137S9 NASAL (11:21)
[2019-03-29] MEDS ORDERED: CLON-379 GTB (11:23)
[2019-03-29] MEDS ORDERED: LORA0.5T GTB (11:24)
[2019-03-29] MEDS ORDERED: QUET25TA GTB (11:25)
[2019-03-29] MEDS ORDERED: LORA-441 GTB (11:26)
[2019-03-29] MEDS ORDERED: SERT25TA83 GTB (11:26)
[2019-03-29] MEDS ORDERED: SOD CHLORIDE 0.9% 1,000 ML IV ONE ×2 (11:30→15:30)
[2019-03-29] MEDS ORDERED: INSU100I33 SC (11:31)
[2019-03-29] MEDS ORDERED: INSU100V3 IJ (11:31)
[2019-03-29] MEDS ORDERED: INSU100I17 SQ (11:32)
[2019-03-29] MEDS ORDERED: CRAN425C6 GTB (11:33)
[2019-03-29] MEDS ORDERED: CRAN3875 GTB (11:34)
[2019-03-29] MEDS ORDERED: UDFER GTB (11:38)
[2019-03-29] MEDS ORDERED: ASCO500C7 GTB (11:39)
[2019-03-29] MEDS ORDERED: MULT-542 GTB (11:40)
[2019-03-29] MEDS ORDERED: AMIN30LI5 GTB (11:41)
[2019-03-29] MEDS ORDERED: ACET-2047 GTB (11:44)
[2019-03-29] MEDS ORDERED: ACET-141 GTB ×2 (11:44)
[2019-03-29] MEDS ORDERED: BISA10SU55 RC (11:46)
[2019-03-29] MEDS ORDERED: NA P133E39 RC (11:46)
--- NOTE | 2019-03-29 13:09 | ERD ---
ER Documentation Chief Complaint Chief Complaint ALOC UNABLE TO COMPLETE DIALYSIS HPI 58-year old male transferred by paramedics from his dialysis center for agitation. Patient has a history of a recent stroke. Today, when presenting for his normal scheduled outpatient dialysis, he had a significantly increased agitation and they were unable to complete dialysis. He was then brought by ambulance to the ER. Upon arrival, the family reports no headache, focal weakness or numbness. He states that he has been slightly more agitated. The dialysis center had given Ativan, but this was not effective. Patient has no obvious shortness of breath. ROS All systems reviewed and are negative except as per history of present illness. Medications Home Meds Reported Medications Bisacodyl (Dulcolax) 10 Mg Supp.rect, 10 MG RC DAILY PRN for CONSTIPATION, SUPP.RECT 03/29/19 Sodium Phosphate,[place]-Dibasic (Enema Ready To Use) 133 Ml Enema, 133 ML RC EVERY 2 DAYS PRN for CONSTIPATION, ENEMA 03/29/19 Acetaminophen* (Acetaminophen*) 650 Mg Tablet, 650 MG GTB Q4 PRN for MILD PAIN LEVEL 1-3, #30 TAB AND FEVER 03/29/19 Acetaminophen* (Acetaminophen*) 500 MG Extra Strength Tablet, 1000 MG GTB Q4H PRN for MODERATE PAIN LEVEL 4-6, TAB 03/29/19 Acetaminophen* (Acetaminophen*) 500 MG Extra Strength Tablet, 1000 MG GTB BID PRN for GENERAL BODY PAIN, TAB 03/29/19 Amino Acids/Protein Hydrolys (Pro-Stat Awc Liquid) 30 Ml Liquid, 30 ML GTB DAILY SUGAR FREE 03/29/19 Multivitamin* (Daily Value*) 1 Each Tablet, 1 TAB GTB DAILY, TAB 03/29/19 Ascorbic Acid* (Vitamin C*) 500 Mg Capsule.sa, 500 MG GTB DAILY, CAP 03/29/19 Ferrous Sulfate (Ferrous Sulfate) 300 Mg/5 Ml Liquid, 325 MG GTB DAILY 03/29/19 Cran/Vitc/Mannose/Inulin/Brom (Uti-Stat Liquid) 3,875 Mg/30 Ml Liquid, 3875 MG GTB DAILY 03/29/19 Cranberry Extract (Cranberry) 425 Mg Capsule, 425 MG GTB DAILY, CAP 03/29/19 Insulin Glulisine (Apidra Solostar) 100 Unit/1 Ml Insuln.pen, 4 UNIT SQ TIDM A, #1 TUB 03/29/19 Insulin Glargine,Hum.rec.anlog (Basaglar Gigiikpen U-100) 100 Unit/1 Ml Insuln.pen, 25 UNIT SC QHS, EA 03/29/19 Insulin Regular, Human (Humulin R) 100 Unit/1 Ml Vial, 0 IJ AC MEALS AND BEDTIME, VIAL 0-150 = 0 UNIT 151-200 = 1 UNIT 201-250 = 2 UNITS 251-300 = 3 UNITS 301-350 = 4 UNITS 351-400 = 5 UNITS OVER 400 GIVE 6 UNITS UNDER 70 OR OVER 400 NOTIFY 03/29/19 Sertraline Hcl* (Sertraline Hcl*) 25 Mg Tablet, 25 MG GTB DAILY, #30 TAB 03/29/19 Lorazepam* (Ativan*) 0.5 Mg Tablet, 0.5 MG GTB DAILY PRN for ANXIETY, #30 TAB 03/29/19 Quetiapine Fumarate* (Seroquel*) 25 Mg Tablet, 25 MG GTB HS, #30 TAB 03/29/19 Lorazepam* (Lorazepam*) 0.5 Mg Tablet, 0.5 MG GTB DAILY PRN for ANXIETY, TAB 03/29/19 Clonidine Hcl* (Clonidine Hcl*) 0.1 Mg Tab, 0.1 MG GTB DAILY PRN for ELEVATED BLOOD PRESSURE, TAB SBP >160 03/29/19 Azelastine Hcl* (Azelastine Hcl*) 137 Mcg/0.137 Ml [place].pump, 2 SPRAYS NASAL BID, #1 EA TO EACH NOSTRIL 03/29/19 Carvedilol* (Carvedilol*) 12.5 Mg Tablet, 12.5 MG GTB BID, #60 TAB 03/29/19 Diltiazem Hcl* (Cardizem CD*) 240 Mg Cap.sr.24h, 240 MG GTB DAILY, #30 CAP 03/29/19 Ergocalciferol (Vitamin D2) (VITAMIN D2) 50,000 Unit Capsule, 46623 UNIT GTB EVERY MONDAY, CAP 03/29/19 Hydralazine Hcl* (Hydralazine Hcl*) 50 Mg Tab, 50 MG GTB TID PRN for ELEVATED BLOOD PRESSURE, #60 TAB 03/29/19 Losartan Potassium* (Losartan Potassium*) 100 Mg Tablet, 100 MG GTB DAILY, TAB 03/29/19 Metoprolol Succinate* (Toprol XL*) 25 Mg Tab.sr.24h, 25 MG GTB DAILY, #30 TAB 03/29/19 Linagliptin (TRADJENTA) 5 Mg Tablet, 5 MG GTB DAILY, TAB 03/29/19 Albuterol Sulfate* (Proair HFA*) 8.5 Gm Hfa.aer.ad, 2 PUFF INH Q4H PRN for WHEEZING AND SOB, #1 INHALER 03/29/19 Ranitidine Hcl* (Ranitidine Hcl*) 300 Mg Tablet, 300 MG GTB HS, #30 TAB 03/29/19 Levetiracetam* (Keppra*) 500 Mg Tablet, 500 MG GTB BID, TAB 03/29/19 Gabapentin* (Gabapentin*) 100 Mg Capsule, 100 MG GTB QHS, #90 CAP 03/29/19 Doxazosin Mesylate* (Doxazosin Mesylate*) 2 Mg Tablet, 2 MG GTB HS, TAB 03/29/19 Docusate Sodium* (Dok*) 100 Mg Tablet, 100 MG GTB BID, #60 CAP 03/29/19 Cyanocobalamin (Vitamin B-12) (Cyanocobalamin Injection) 1,000 Mcg/1 Ml Vial, 1000 MCG IJ EVERY MONDAY, VIAL 03/29/19 Clopidogrel Bisulfate (Clopidogrel) 75 Mg Tablet, 75 MG GTB DAILY, #30 TAB 03/29/19 Calcium Carbonate ([place]-500) 500 Mg Tablet, 500 MG GTB DAILY, TAB 03/29/19 Baclofen* (Baclofen*) 10 Mg Tablet, 10 MG GTB BID, TAB 03/29/19 Atorvastatin* (Atorvastatin*) 40 Mg Tablet, 40 MG GTB QHS, #30 TAB 03/29/19 Aspirin (Low Dose Aspirin) 81 Mg Tablet.dr, 81 MG GTB DAILY, #30 TAB 03/29/19 Discontinued Reported Medications Quetiapine Fumarate* (Quetiapine Fumarate*) 25 Mg Tablet, 25 MG PO HS, TAB 01/21/19 Lorazepam* (Ativan*) 0.5 Mg Tablet, 0.5 MG PO DAILY, #30 TAB 01/19/19 Fluoxetine Hcl* (Fluoxetine Hcl*) 20 Mg Capsule, 20 MG PO DAILY, CAP 01/19/19 Linagliptin (TRADJENTA) 5 Mg Tablet, 5 MG PO DAILY, TAB 01/19/19 Nafycw-Undqkuof-Dmmkcvc* (Sunil FRANK* 36,000) 36,000 L-114,000-180,000 Unit Capsule.dr, 1 CAP PO WITH MEALS, CAP 01/19/19 Megestrol Acetate* (Megestrol Acetate*) 40 Mg Tablet, 40 MG PO BID, TAB 01/19/19 Clonidine HCl (Clonidine HCl ER) 0.1 Mg Tab.er.12h, 0.1 MG PO Q6 PRN for ELEVATED BLOOD PRESSURE, #30 TAB 01/19/19 Sertraline Hcl* (Sertraline Hcl*) 25 Mg Tablet, 25 MG PO BID, #30 TAB 01/19/19 Carvedilol* (Coreg*) 25 Mg Tablet, 25 MG PO BID, #60 TAB 01/19/19 Ranitidine Hcl (Ranitidine Hcl) 300 Mg Capsule, 300 MG PO HS, #30 CAP 01/19/19 Lubiprostone* (Amitiza*) 24 Mcg Capsule, 24 MCG PO BID, #60 CAP 01/19/19 Atorvastatin* (Atorvastatin*) 80 Mg Tablet, 80 MG PO QHS, #30 TAB 01/19/19 Levetiracetam* (Keppra*) 500 Mg Tablet, 500 MG PO BID, TAB 06/02/18 Paroxetine Hcl* (Paroxetine*) 10 Mg Tablet, 10 MG PO DAILY, TAB 05/19/17 Clopidogrel Bisulfate* (Clopidogrel Bisulfate*) 75 Mg Tablet, 75 MG PO DAILY, #30 TAB 05/19/17 Docusate Sodium* (Docusate Sodium*) 100 Mg Capsule, 100 MG PO BID, #60 CAP 05/19/17 Tramadol Hcl* (Ultram*) 50 Mg Tablet, 50 MG PO Q6H PRN for PAIN, TAB 05/19/17 Tamsulosin Hcl* (Tamsulosin Hcl*) 0.4 Mg Cap.er.24h, 0.4 MG PO DAILY, CAP 05/19/17 Ferrous Sulfate* (Ferrous Sulfate*) 325 Mg Tabec, 325 MG PO DAILY, TAB 05/19/17 Ergocalciferol (Vitamin D2) (VITAMIN D2) 50,000 Unit Capsule, 16277 UNIT PO, CAP 05/19/17 Famotidine* (Famotidine*) 40 Mg Tablet, 40 MG PO HS, TAB 10/18/15 Nitroglycerin* (Nitrostat*) 0.4 Mg Tab.subl, 0.4 MG SL Q5MIN PRN for CHEST PAIN, BOTTLE 10/18/15 Albuterol Sulfate* (Proair HFA*) 8.5 Gm Hfa.aer.ad, 2 PUFF INH Q4H PRN for WHEEZING AND SOB, #1 INHALER 10/18/15 Metformin Hcl (Glucophage) 500 Mg Tablet, 1000 MG PO BID, TAB 02/20/14 Aspirin Ec (Aspir 81) 81 Mg Tablet.dr, 81 MG PO DAILY 02/20/14 Gabapentin* (Gabapentin*) 300 Mg Capsule, 300 MG PO DAILY 02/02/13 Discontinued Scripts Losartan Potassium* (Cozaar*) 25 Mg Tablet, 25 MG PO DAILY, #30 TAB Prov:MARCELO SEALS 06/05/18 Ondansetron Hcl* (Zofran*) 4 Mg Tablet, 4 MG PO Q8H PRN for NAUSEA AND/OR VOMITING, #10 TAB Prov:RAFAEL POE 10/18/15 Allergies Allergies: Coded Allergies: No Known Drug Allergies (Unverified Allergy, Unknown, 05/31/18) PMhx/Soc History of Surgery: Yes ([facility], 3 years [facility] Anesthesia Reaction: No Hx Neurological Disorder: Yes (stroke) Hx Respiratory Disorders: Yes (asthma) Hx Cardiac Disorders: Yes (heart failure) Hx Psychiatric Problems: Yes (depression) Hx Miscellaneous Medical Probl: Yes (ESRD on HD, CAD s/p CABG with stent, epilepsy, CVA, BPH) Hx Alcohol Use: No Hx Substance Use: No Hx Tobacco Use: No Smoking Status: Never smoker FmHx Noncontributory for chief complaint Physical Exam Vitals Vital Signs Date Temp Pulse Resp B/P (MAP) Pulse Ox O2 O2 Flow FiO2 Time Delivery Rate 03/29/19 97.4 62 22 92/59 (70) 100 Room Air 12:26 03/29/19 97.4 62 22 83/51 (62) 100 Room Air 11:25 03/29/19 Nasal 10:40 Cannula 03/29/19 98.0 78 22 10:27 Physical Exam GENERAL: Chronically ill male in no acute distress. He does appear to be somewhat agitated HEENT: [Pupils equal, round, and reactive to light. EOMI. There is no scleral icterus.] No evidence of head trauma NECK: [C-spine is soft and supple, there is no meningismus. There is no cervical lymphadenopathy.] LUNGS: [Clear to auscultation bilaterally. There are no rales, wheezes or rhonchi.] HEART: [Regular rate and rhythm, no murmurs, clicks, rubs or gallops.] ABDOMEN: [Soft, non-tender, non-distended. There are bowel sounds in all four quadrants. No rebound or guarding.] G-tube is appreciated EXTREMITIES: [There is no peripheral cyanosis or edema. No focal swelling or erythema.] NEURO: Patient is awake but agitated. He is nonverbal. He has a significant aphasia. He is moving all 4 extremities equally. He has no significant insight SKIN: [There is no apparent rash or petechiae.] Dialysis catheter is appreciated with no evidence of infection at the insertion site. HEME/LYMPHATIC: [There is no evidence of excessive bruising or lymphedema.] PSYCHIATRIC: [The patient does not appear anxious or depressed.] He appears agitated Result Diagram: 03/29/19 1055 03/29/19 1055 Results 24 hrs Laboratory Tests Test 03/29/19 10:55 03/29/19 10:57 White Blood Count 9.1 10^3/ul Red Blood Count 2.03 10^6/ul Hemoglobin 6.4 g/dl Hematocrit 20.8 % Mean Corpuscular Volume 102.5 fl Mean Corpuscular Hemoglobin 31.5 pg Mean Corpuscular Hemoglobin Concent 30.8 g/dl Red Cell Distribution Width 15.0 % Platelet Count 226 10^3/UL Mean Platelet Volume 10.4 fl Immature Granulocytes % 0.800 % Neutrophils % % Segmented Neutrophils % (Manual) 83 % Lymphocytes % % Lymphocytes % (Manual) 7 % Reactive Lymphocytes % (Manual) 2 % Monocytes % % Monocytes % (Manual) 3 % Eosinophils % % Eosinophils % (Manual) 5 % Basophils % % Nucleated Red Blood Cells % 1 % Immature Granulocytes # 0.070 10^3/ul Neutrophils # 10^3/ul Lymphocytes (Manual) 0.6 10^3/ul Lymphocytes # 10^3/ul Reactive Lymphocytes # 0.1 10^3/ul Monocytes # 10^3/ul Monocytes # (Manual) 0.2 10^3/ul Eosinophils # 10^3/ul Basophils # 10^3/ul Nucleated Red Blood Cells # 10^3/ul Platelet Estimate NORMAL Polychromasia 1+ Hypochromasia 1+ Poikilocytosis 1+ Anisocytosis 1+ Macrocytosis 1+ Spherocytes 1+ Target Cells 1+ Sodium Level 137 mmol/L Potassium Level 3.9 mmol/L Chloride Level 98 mmol/L Carbon Dioxide Level 29 mmol/L Anion Gap 10 Blood Urea Nitrogen 48 mg/dl Creatinine 7.16 mg/dl Est Glomerular Filtrat Rate mL/min 8 mL/min Glucose Level 88 mg/dl Calcium Level 8.7 mg/dl Total Bilirubin 0.0 mg/dl Direct Bilirubin 0.00 mg/dl Indirect Bilirubin 0.0 mg/dl Aspartate Amino Transf (AST/SGOT) 38 IU/L Alanine Aminotransferase (ALT/SGPT) 17 IU/L Alkaline Phosphatase 84 IU/L Total Protein 6.6 g/dl Albumin 3.1 g/dl Globulin 3.50 g/dl Albumin/Globulin Ratio 0.88 Salicylates Level < 1.0 mg/dl Acetaminophen Level < 10.0 ug/ml Ethyl Alcohol Level < 10.0 mg/dl POC Venous Lactate 1.5 mmol/L Current Medications Medications Dose Sig/Chloe Start Time Status Last (Trade) Ordered Route PRN Stop Time Admin Dose Reason Admin Olanzapine 10 mg ONCE ONCE 03/29/19 DC 03/29/19 (Zyprexa) IM 10:30 10:39 03/29/19 10:31 Sodium 1,000 ml @ Q1H ONCE 03/29/19 DC 03/29/19 Chloride 1,000 mls/hr IV 11:30 11:25 03/29/19 12:29 Procedures/MDM Patient was taken to a room, seen and evaluated. Comfort measures were initiated. Diagnostic tests were ordered and reviewed. 3 LEAD RHYTHM STRIP: Normal sinus rhythm without ectopy EK lead EKG reviewed by myself: Normal Sinus Rhythm Normal [place] and intervals Nonspecific ST and T wave changes without ST elevation Impression: Nonspecific EKG RADIOLOGY: Reviewed with the radiologist CONSULTATION: Hospitalist was notified for admission. Dr. Chua was notified for renal consultation REEVALUATION: 1310: diagnostic tests were appreciated and arrangements were made for admission. MEDICAL DECISION MAKIN-year-old male with a previous history of a stroke and a current history of renal failure presents with an altered mental status and agitation. Differential diagnosis entertained was broad and potential high acuity but focused on infectious, electrolyte, ischemic presentations. At this time, patient shows no evidence of acute stroke as he has a nonfocal neurologic exam. His electrolytes are noted with evidence of renal failure requiring his dialysis which will require admission to the hospital for initiation. Is also noted to be significantly anemic compared to his baseline and given his use of aspirin and other medications, I am worried that he may have an occult GI bleed. He does not require transfusion at this time given his hemodynamic stability and his current hemoglobin. Patient has required medication for sedation and his blood pressure dropped somewhat after this medication, but responded nicely to fluids. He does not appear to be in shock. Patient will be admitted to the hospital for further observation and monitoring. Departure Diagnosis: Primary Impression: Agitation Additional Impressions: Anemia Renal failure Condition: CLYDE Barraza Mar 29, 2019 13:09
[2019-03-29] MEDS ORDERED: SOD CHLORIDE 0.9% 1,000 ML IV SCH (13:12)
[2019-03-29] MEDS ORDERED: ACETAMINOPHEN 325 MG TAB PO PRN ×2 (13:30)
[2019-03-29] MEDS ORDERED: OLANZAPINE 10 MG VIAL IM PRN (13:30)
[2019-03-29] MEDS ORDERED: NACL 0.9% 3 ML SYG IV SCH (13:30)
[2019-03-29] MEDS ORDERED: ONDANSETRON 4 MG INJ IV PRN (13:30)
[2019-03-29] MEDS ORDERED: SOD CHLORIDE 0.9% 250 ML IV* ONE (13:35)
--- NOTE | 2019-03-29 13:49 | HP ---
Date/Time of Note Date/Time of Note DATE: 03/29/19 TIME: 13:49 Assessment/Plan VTE Prophylaxis Pharmacological prophylaxis: other Lines/Catheters IV Catheter Type (from [facility]): Saline Lock Assessment/Plan Hospital Course HPI Patient is a male with a past medical history significant for end-stage renal disease on hemodialysis, coronary artery disease status post CABG, epilepsy, history of CVA with residual left-sided deficit, BPH who presents to [facility] for agitation. Currently patient is asleep secondary to antipsychotic sedation and not able to answer questions. According to nursing at bedside patient was sent from dialysis center as he was too agitated to complete dialysis. Of note today attempted to give patient Ativan which did not help and was sent to the emergency room. Patient was extremely agitated and combative and ER physician had to give patient Zyprexa which immediately lowered patient's blood pressure and made him fall asleep. Patient's at bedside stated that he has been increasingly more agitated since yesterday. [facility] No further HPI could be reported due to patient's cognitive status Objective Physical exam General: Patient is laying in bed and sleeping mentation: Patient is not alert and oriented Head: Normocephalic atraumatic Eyes: EOMI, pupils reactive to light Neck: Supple, nontender, midline Respiratory: Clear to auscultation bilaterally Cardiovascular: regular rate, no obvious murmurs Gastrointestinal: non-tender to palpation, bowel sounds heard. Neurological: Moves all extremities spontaneously Skin: No new skin lesions Assessment and plan Acute encephalopathy -Unknown etiology as of right now, will work-up possible sources including infection, panculture -CT negative for acute issues -Patient does have an elevated BUN from not receiving dialysis today, a have component of toxic metabolic encephalopathy -MRI when patient more stable, will currently not be able to tolerate sitting still an MRI -Patient does have a history of CVA so another CVA is a consideration however CT currently is negative, will perform MRI when stable, however this is less likely as there is no focal deficit or facial droop per family or nursing staff -Anemia could also be causing some encephalopathy although this degree of agitation is unlikely with anemia Hypotension -According to ER physician, patient's blood pressure only dropped after Zyprexa -Stable however mild low -Gentle IV fluids as patient is hemodialysis -Cannot rule out infection at this time for above encephalopathy so we will start broad-spectrum IV antibiotics, follow-up with cultures Severe anemia -Patient with normal hemoglobin on his previous admission -No apparent signs of GI bleed however patient did have questionable coffee- ground emesis during the previous admission and left AGAINST MEDICAL ADVICE without a prescription for PPI after EGD found gastritis -We will consult GI -Protonix IV twice daily for now End-stage renal disease on hemodialysis -Nephrology has been consulted -Patient did not receive dialysis today, will receive dialysis tomorrow per thread weaver Coronary artery disease status post CABG history -Resume home meds when able, currently n.p.o. due to encephalopathy Epilepsy -Continue Keppra IV History of CVA with residual left-sided deficit -Mild residual left-sided deficit however cannot be tested at this time due to encephalopathy -Continue home meds when able BPH -Continue home meds when able Disposition -Follow-up with culture results, continue IV antibiotics, GI and nephrology recommendations appreciated above issues, Result Diagram: 03/29/19 1055 03/29/19 1055 Results 24hrs Laboratory Tests Test 03/29/19 10:55 03/29/19 10:57 White Blood Count 9.1 Red Blood Count 2.03 #L Hemoglobin 6.4 #*L Hematocrit 20.8 #L Mean Corpuscular Volume 102.5 H Mean Corpuscular Hemoglobin 31.5 Mean Corpuscular Hemoglobin Concent 30.8 L Red Cell Distribution Width 15.0 H Platelet Count 226 Mean Platelet Volume 10.4 Immature Granulocytes % 0.800 H Neutrophils % Segmented Neutrophils % (Manual) 83 H Lymphocytes % Lymphocytes % (Manual) 7 L Reactive Lymphocytes % (Manual) 2 H Monocytes % Monocytes % (Manual) 3 Eosinophils % Eosinophils % (Manual) 5 Basophils % Nucleated Red Blood Cells % 1 H Immature Granulocytes # 0.070 H Neutrophils # Lymphocytes (Manual) 0.6 L Lymphocytes # Reactive Lymphocytes # 0.1 H Monocytes # Monocytes # (Manual) 0.2 L Eosinophils # Basophils # Nucleated Red Blood Cells # Platelet Estimate NORMAL Polychromasia 1+ Hypochromasia 1+ Poikilocytosis 1+ Anisocytosis 1+ Macrocytosis 1+ Spherocytes 1+ Target Cells 1+ Sodium Level 137 Potassium Level 3.9 Chloride Level 98 Carbon Dioxide Level 29 Anion Gap 10 Blood Urea Nitrogen 48 H Creatinine 7.16 H Est Glomerular Filtrat Rate mL/min 8 L Glucose Level 88 Calcium Level 8.7 Total Bilirubin 0.0 L Direct Bilirubin 0.00 Indirect Bilirubin 0.0 Aspartate Amino Transf (AST/SGOT) 38 Alanine Aminotransferase (ALT/SGPT) 17 Alkaline Phosphatase 84 Total Protein 6.6 Albumin 3.1 L Globulin 3.50 H Albumin/Globulin Ratio 0.88 Salicylates Level < 1.0 L Acetaminophen Level < 10.0 L Ethyl Alcohol Level < 10.0 H POC Venous Lactate 1.5 HPI/ROS Admit Date/Time Admit Date/Time PMH/Family/Social Past Medical History Coded Allergies: No Known Drug Allergies (Unverified Allergy, Unknown, 05/31/18) Past Surgical History Past Surgical Hx: other Family History Significant Family History: no pertinent family hx Social History Smoking Status: Never smoker Exam/Review of Systems Vital Signs Vitals Vital Signs Date Temp Pulse Resp B/P (MAP) Pulse Ox O2 O2 Flow FiO2 Time Delivery Rate 03/29/19 97.4 62 22 92/59 (70) 100 Room Air 12:26 STEWART WINTER Mar 29, 2019 13:49
[2019-03-29] MEDS ORDERED: PIPER-TAZO 3.375 GM IV (PMX) 100 ML IVPB SCH (14:00)
[2019-03-29] MEDS ORDERED: GLUCOSE GEL 15 GRAM TUBE BUCCAL PRN (14:30)
[2019-03-29] MEDS ORDERED: DEXTROSE 50% 50 ML SYRINGE IV PRN ×2 (14:30)
[2019-03-29] MEDS ORDERED: GLUCOSE GEL 15 GRAM TUBE PO PRN ×2 (14:30)
[2019-03-29] MEDS ORDERED: GLUCAGON 1 MG INJ IM PRN (14:30)
[2019-03-29] MEDS ORDERED: NORepinephrine 8MG/250 ML (PMX 250 ML IV SCH (15:30)
[2019-03-29] MEDS ORDERED: LIDOCAINE 1% (MPF) 5 ML VIAL SC ONE (15:30)
--- NOTE | 2019-03-29 16:24 | CONS ---
Assessment/Plan Assessment/Plan Assessment/Plan (Daily) Acute encephalopathy -Unknown etiology as of right now, will work-up possible sources including inf ection, panculture -CT negative for acute issues -Patient does have an elevated BUN from not receiving dialysis today, a have component of toxic metabolic encephalopathy -MRI when patient more stable, will currently not be able to tolerate sitting still an MRI -Patient does have a history of CVA so another CVA is a consideration however CT currently is negative, will perform MRI when stable, however this is less likely as there is no focal deficit or facial droop per family or nursing staff -Anemia could also be causing some encephalopathy although this degree of agitation is unlikely with anemia Hypotension -According to ER physician, patient's blood pressure only dropped after Zyprexa -Stable however mild low -Gentle IV fluids as patient is hemodialysis -Cannot rule out infection at this time for above encephalopathy so we will start broad-spectrum IV antibiotics, follow-up with cultures Severe anemia -Patient with normal hemoglobin on his previous admission -No apparent signs of GI bleed however patient did have questionable coffee- ground emesis during the previous admission and left AGAINST MEDICAL ADVICE without a prescription for PPI after EGD found gastritis -We will consult GI -Protonix IV twice daily for now Assessment: Microcytic anemia End-stage renal disease on hemodialysis Acute encephalopathy Coronary artery disease status post CABG history Epilepsy History of CVA 1 month ago with residual left-sided deficit BPH Plan: Supportive treatment Monitor H&H Transfuse for hemoglobin less than 7.5 Stool for occult blood EGD/colonoscopy inpatient versus outpatient Patient seen in collaboration with Dr. Sanders Consultation Date/Type/Reason Admit Date/Time Date of Consultation: Mar 29, 2019 Type of Consult GI Reason for Consultation Anemia Date/Time of Note DATE: 03/29/19 TIME: 16:14 Hx of Present Illness This is a 58-year-old male with a history of epilepsy and coronary artery disease status post CABG who was admitted for agitation. Patient was noted to have hemoglobin of 6.5. Blood transfuse has been ordered. There is no evidence of overt GI bleeding. Patient was giving antipsychotic medication that cause profound drowsiness and hypertension. Other medical history includes CVA with left-sided deficit and BPH. According to the patient had blood in his stomach 1 month ago when patient was hospitalized for CVA. The plan is to monitor H&H with transfusion for hemoglobin less than 7.5. We will monitor the need for EGD/colonoscopy over the weekend. Continue close observation. Gastrointestinal: no complaints (See HPI) Past Medical History BPH, CVA, coronary artery disease Home Meds Reported Medications Bisacodyl (Dulcolax) 10 Mg Supp.rect, 10 MG RC DAILY PRN for CONSTIPATION, SUPP.RECT 03/29/19 Sodium Phosphate,Yell-Dibasic (Enema Ready To Use) 133 Ml Enema, 133 ML RC EVERY 2 DAYS PRN for CONSTIPATION, ENEMA 03/29/19 Acetaminophen* (Acetaminophen*) 650 Mg Tablet, 650 MG GTB Q4 PRN for MILD PAIN LEVEL 1-3, #30 TAB AND FEVER 03/29/19 Acetaminophen* (Acetaminophen*) 500 MG Extra Strength Tablet, 1000 MG GTB Q4H PRN for MODERATE PAIN LEVEL 4-6, TAB 03/29/19 Acetaminophen* (Acetaminophen*) 500 MG Extra Strength Tablet, 1000 MG GTB BID PRN for GENERAL BODY PAIN, TAB 03/29/19 Amino Acids/Protein Hydrolys (Pro-Stat Awc Liquid) 30 Ml Liquid, 30 ML GTB DAILY SUGAR FREE 03/29/19 Multivitamin* (Daily Value*) 1 Each Tablet, 1 TAB GTB DAILY, TAB 03/29/19 Ascorbic Acid* (Vitamin C*) 500 Mg Capsule.sa, 500 MG GTB DAILY, CAP 03/29/19 Ferrous Sulfate (Ferrous Sulfate) 300 Mg/5 Ml Liquid, 325 MG GTB DAILY 03/29/19 Cran/Vitc/Mannose/Inulin/Brom (Uti-Stat Liquid) 3,875 Mg/30 Ml Liquid, 3875 MG GTB DAILY 03/29/19 Cranberry Extract (Cranberry) 425 Mg Capsule, 425 MG GTB DAILY, CAP 03/29/19 Insulin Glulisine (Apidra Solostar) 100 Unit/1 Ml Insuln.pen, 4 UNIT SQ TIDM A, #1 TUB 03/29/19 Insulin Glargine,Hum.rec.anlog (Basaglar Kwikpen U-100) 100 Unit/1 Ml Insuln.pen, 25 UNIT SC QHS, EA 03/29/19 Insulin Regular, Human (Humulin R) 100 Unit/1 Ml Vial, 0 IJ AC MEALS AND BEDTIME, VIAL 0-150 = 0 UNIT 151-200 = 1 UNIT 201-250 = 2 UNITS 251-300 = 3 UNITS 301-350 = 4 UNITS 351-400 = 5 UNITS OVER 400 GIVE 6 UNITS UNDER 70 OR OVER 400 NOTIFY 03/29/19 Sertraline Hcl* (Sertraline Hcl*) 25 Mg Tablet, 25 MG GTB DAILY, #30 TAB 03/29/19 Lorazepam* (Ativan*) 0.5 Mg Tablet, 0.5 MG GTB DAILY PRN for ANXIETY, #30 TAB 03/29/19 Quetiapine Fumarate* (Seroquel*) 25 Mg Tablet, 25 MG GTB HS, #30 TAB 03/29/19 Lorazepam* (Lorazepam*) 0.5 Mg Tablet, 0.5 MG GTB DAILY PRN for ANXIETY, TAB 03/29/19 Clonidine Hcl* (Clonidine Hcl*) 0.1 Mg Tab, 0.1 MG GTB DAILY PRN for ELEVATED BLOOD PRESSURE, TAB SBP >160 03/29/19 Azelastine Hcl* (Azelastine Hcl*) 137 Mcg/0.137 Ml [place].pump, 2 SPRAYS NASAL BID, #1 EA TO EACH NOSTRIL 03/29/19 Carvedilol* (Carvedilol*) 12.5 Mg Tablet, 12.5 MG GTB BID, #60 TAB 03/29/19 Diltiazem Hcl* (Cardizem CD*) 240 Mg Cap.sr.24h, 240 MG GTB DAILY, #30 CAP 03/29/19 Ergocalciferol (Vitamin D2) (VITAMIN D2) 50,000 Unit Capsule, 07939 UNIT GTB EVERY MONDAY, CAP 03/29/19 Hydralazine Hcl* (Hydralazine Hcl*) 50 Mg Tab, 50 MG GTB TID PRN for ELEVATED BLOOD PRESSURE, #60 TAB 03/29/19 Losartan Potassium* (Losartan Potassium*) 100 Mg Tablet, 100 MG GTB DAILY, TAB 03/29/19 Metoprolol Succinate* (Toprol XL*) 25 Mg Tab.sr.24h, 25 MG GTB DAILY, #30 TAB 03/29/19 Linagliptin (TRADJENTA) 5 Mg Tablet, 5 MG GTB DAILY, TAB 03/29/19 Albuterol Sulfate* (Proair HFA*) 8.5 Gm Hfa.aer.ad, 2 PUFF INH Q4H PRN for WHEEZING AND SOB, #1 INHALER 03/29/19 Ranitidine Hcl* (Ranitidine Hcl*) 300 Mg Tablet, 300 MG GTB HS, #30 TAB 03/29/19 Levetiracetam* (Keppra*) 500 Mg Tablet, 500 MG GTB BID, TAB 03/29/19 Gabapentin* (Gabapentin*) 100 Mg Capsule, 100 MG GTB QHS, #90 CAP 03/29/19 Doxazosin Mesylate* (Doxazosin Mesylate*) 2 Mg Tablet, 2 MG GTB HS, TAB 03/29/19 Docusate Sodium* (Dok*) 100 Mg Tablet, 100 MG GTB BID, #60 CAP 03/29/19 Cyanocobalamin (Vitamin B-12) (Cyanocobalamin Injection) 1,000 Mcg/1 Ml Vial, 1000 MCG IJ EVERY MONDAY, VIAL 03/29/19 Clopidogrel Bisulfate (Clopidogrel) 75 Mg Tablet, 75 MG GTB DAILY, #30 TAB 03/29/19 Calcium Carbonate ([place]-500) 500 Mg Tablet, 500 MG GTB DAILY, TAB 03/29/19 Baclofen* (Baclofen*) 10 Mg Tablet, 10 MG GTB BID, TAB 03/29/19 Atorvastatin* (Atorvastatin*) 40 Mg Tablet, 40 MG GTB QHS, #30 TAB 03/29/19 Aspirin (Low Dose Aspirin) 81 Mg Tablet.dr, 81 MG GTB DAILY, #30 TAB 03/29/19 Discontinued Reported Medications Quetiapine Fumarate* (Quetiapine Fumarate*) 25 Mg Tablet, 25 MG PO HS, TAB 01/21/19 Lorazepam* (Ativan*) 0.5 Mg Tablet, 0.5 MG PO DAILY, #30 TAB 01/19/19 Fluoxetine Hcl* (Fluoxetine Hcl*) 20 Mg Capsule, 20 MG PO DAILY, CAP 01/19/19 Linagliptin (TRADJENTA) 5 Mg Tablet, 5 MG PO DAILY, TAB 01/19/19 Djfnxj-Gvdaffrd-Aqfiwzu* (Sunil FRANK* 36,000) 36,000 L-114,000-180,000 Unit Capsule.dr, 1 CAP PO WITH MEALS, CAP 01/19/19 Megestrol Acetate* (Megestrol Acetate*) 40 Mg Tablet, 40 MG PO BID, TAB 4/13/19 Clonidine HCl (Clonidine HCl ER) 0.1 Mg Tab.er.12h, 0.1 MG PO Q6 PRN for ELEVATED BLOOD PRESSURE, #30 TAB 01/19/19 Sertraline Hcl* (Sertraline Hcl*) 25 Mg Tablet, 25 MG PO BID, #30 TAB 01/19/19 Carvedilol* (Coreg*) 25 Mg Tablet, 25 MG PO BID, #60 TAB 01/19/19 Ranitidine Hcl (Ranitidine Hcl) 300 Mg Capsule, 300 MG PO HS, #30 CAP 01/19/19 Lubiprostone* (Amitiza*) 24 Mcg Capsule, 24 MCG PO BID, #60 CAP 01/19/19 Atorvastatin* (Atorvastatin*) 80 Mg Tablet, 80 MG PO QHS, #30 TAB 01/19/19 Levetiracetam* (Keppra*) 500 Mg Tablet, 500 MG PO BID, TAB 06/02/18 Paroxetine Hcl* (Paroxetine*) 10 Mg Tablet, 10 MG PO DAILY, TAB 05/19/17 Clopidogrel Bisulfate* (Clopidogrel Bisulfate*) 75 Mg Tablet, 75 MG PO DAILY, #30 TAB 05/19/17 Docusate Sodium* (Docusate Sodium*) 100 Mg Capsule, 100 MG PO BID, #60 CAP 05/19/17 Tramadol Hcl* (Ultram*) 50 Mg Tablet, 50 MG PO Q6H PRN for PAIN, TAB 05/19/17 Tamsulosin Hcl* (Tamsulosin Hcl*) 0.4 Mg Cap.er.24h, 0.4 MG PO DAILY, CAP 05/19/17 Ferrous Sulfate* (Ferrous Sulfate*) 325 Mg Tabec, 325 MG PO DAILY, TAB 05/19/17 Ergocalciferol (Vitamin D2) (VITAMIN D2) 50,000 Unit Capsule, 19985 UNIT PO, CAP 05/19/17 Famotidine* (Famotidine*) 40 Mg Tablet, 40 MG PO HS, TAB 10/18/15 Nitroglycerin* (Nitrostat*) 0.4 Mg Tab.subl, 0.4 MG SL Q5MIN PRN for CHEST PAIN, BOTTLE 10/18/15 Albuterol Sulfate* (Proair HFA*) 8.5 Gm Hfa.aer.ad, 2 PUFF INH Q4H PRN for WHEEZING AND SOB, #1 INHALER 10/18/15 Metformin Hcl (Glucophage) 500 Mg Tablet, 1000 MG PO BID, TAB 02/20/14 Aspirin Ec (Aspir 81) 81 Mg Tablet.dr, 81 MG PO DAILY 02/20/14 Gabapentin* (Gabapentin*) 300 Mg Capsule, 300 MG PO DAILY 02/02/13 Discontinued Scripts Losartan Potassium* (Cozaar*) 25 Mg Tablet, 25 MG PO DAILY, #30 TAB Prov:MARCELO SEALS 06/05/18 Ondansetron Hcl* (Zofran*) 4 Mg Tablet, 4 MG PO Q8H PRN for NAUSEA AND/OR VOMITING, #10 TAB Prov:RAFAEL POE 10/18/15 Medications Current Medications Sodium Chloride 1,000 ml @ 50 mls/hr Q20H IV ; Start 03/29/19 at 13:12; Stop 03/31/19 at 05:11 IV Flush (NS 3 ml) 3 ml PER PROTOCOL IV ; Start 03/29/19 at 13:30 Ondansetron HCl (Zofran Inj) 4 mg Q6H PRN IV NAUSEA/VOMITING; Start 03/29/19 at 13:30 Acetaminophen (Tylenol Tab) 650 mg Q6H PRN PO .PAIN 1-3 OR TEMP; Start 03/29/19 at 13:30 Olanzapine (Zyprexa) 10 mg Q12H PRN IM agitation; Start 03/29/19 at 13:30 Diagnostic Test (Pha) (Accu-Chek) 1 ea 02 XX ; Start 03/30/19 at 02:00 Insulin Aspart (Novolog Insulin Pen) NOVOLOG *MILD* ALGORITHM WITH MEALS BEDTIME SC ; Start 03/29/19 at 18:00 Pantoprazole (Protonix Iv) 40 mg BID@06,18 IV ; Start 03/29/19 at 18:00 Levetiracetam 100 ml @ 400 mls/hr Q12 IVPB ; Start 03/29/19 at 21:00 Hydralazine HCl (Apresoline) 10 mg Q4H PRN IV sbp >160; Start 03/29/19 at 14:00 Labetalol HCl (Labetalol) 10 mg Q4H PRN IV sbp>160; Start 03/29/19 at 14:00 Miscellaneous Information 1 ea NOTE XX ; Start 03/29/19 at 14:30 Glucose (Glutose) 15 gm Q15M PRN PO DECREASED GLUCOSE; Start 03/29/19 at 14:30 Glucose (Glutose) 22.5 gm Q15M PRN PO DECREASED GLUCOSE; Start 03/29/19 at 14:30 Dextrose (D50w Syringe) 25 ml Q15M PRN IV DECREASED GLUCOSE; Start 03/29/19 at 14:30 Dextrose (D50w Syringe) 50 ml Q15M PRN IV DECREASED GLUCOSE; Start 03/29/19 at 14:30 Glucagon (Glucagen) 1 mg Q15M PRN IM DECREASED GLUCOSE; Start 03/29/19 at 14:30 Glucose (Glutose) 15 gm Q15M PRN BUCCAL DECREASED GLUCOSE; Start 03/29/19 at 14:30 Piperacillin Sod/ Tazobactam Sod 50 ml @ 100 mls/hr Q8 IVPB ; Start 03/29/19 at 14:14 Sodium Chloride 1,000 ml @ 1,000 mls/hr Q1H ONCE IV Last administered on 03/29/19at 15:25; Admin Dose 1,000 MLS/HR; Start 03/29/19 at 15:30; Stop 03/29/19 at 16:29 Norepinephrine 250 ml @ 1.875 mls/ hr TITRATE IV ; Start 03/29/19 at 15:30 Allergies: Coded Allergies: No Known Drug Allergies (Unverified Allergy, Unknown, 05/31/18) Past Surgical History Past Surgical Hx: other Social History Smoking Status: Never smoker Exam/Review of Systems Exam Vitals Vital Signs Date Temp Pulse Resp B/P (MAP) Pulse Ox O2 O2 Flow FiO2 Time Delivery Rate 03/29/19 97.8 72 12 101/64 100 Room Air 14:15 (76) Exam PHYSICAL EXAMINATION: GENERAL: Well developed, well nourished, obtundent, in no acute distress SKIN: No lesions, no stigmata chronic liver disease, no evidence of bleeding diathesis LYMPHATIC: No palpable lymphadenopathy. HEAD: Normocephalic, atraumatic, no tenderness. EYES: Pupils equal reactive to light and accommodation, full extraocular movements, sclera clear, non-icteric, no discharge. EARS/NOSE AND THROAT: Ears normal, nose normal, oropharynx normal, oral membranes well hydrated without lesions. NECK: Supple, no masses, thyroid normal, JVP within normal limits, carotids no rmal without bruits. CHEST: Inspection within normal limits. CARDIOVASCULAR: Heart: Regular rate and rhythm, no murmurs, gallops or rubs. Peripheral pulses present within normal limits, no cyanosis, clubbing or edemas. No pulsatile abdominal mass RESPIRATORY: Lungs clear to auscultation and percussion, no wheezing, no rubs GASTROINTESTINAL AND LIVER: Abdomen: Soft, non tenderness, non-distended, no hernias, no masses, no organomegaly, no ascites, no guarding, no rebound tenderness, normoactive bowel sounds. Rectal: Deferred. GENITOURINARY: [Male genitalia within normal limits. EXTREMITIES: No cyanosis, clubbing or edema. Results Result Diagram: 03/29/19 1336 03/29/19 1055 Results 24hrs Laboratory Tests Test 03/29/19 10:55 03/29/19 10:57 03/29/19 13:36 03/29/19 14:04 White Blood Count 9.1 Red Blood Count 2.03 #L Hemoglobin 6.4 #*L 6.5 *L Hematocrit 20.8 #L 20.7 L Mean Corpuscular 102.5 H Volume Mean Corpuscular 31.5 Hemoglobin Mean Corpuscular 30.8 L Hemoglobin Concent Red Cell 15.0 H Distribution Width Platelet Count 226 Mean Platelet Volume 10.4 Immature 0.800 H Granulocytes % Neutrophils % Segmented 83 H Neutrophils % (Manual) Lymphocytes % Lymphocytes % 7 L (Manual) Reactive Lymphocytes 2 H % (Manual) Monocytes % Monocytes % (Manual) 3 Eosinophils % Eosinophils % 5 (Manual) Basophils % Nucleated Red Blood 1 H Cells % Immature 0.070 H Granulocytes # Neutrophils # Lymphocytes (Manual) 0.6 L Lymphocytes # Reactive Lymphocytes 0.1 H # Monocytes # Monocytes # (Manual) 0.2 L Eosinophils # Basophils # Nucleated Red Blood Cells # Platelet Estimate NORMAL Polychromasia 1+ Hypochromasia 1+ Poikilocytosis 1+ Anisocytosis 1+ Macrocytosis 1+ Spherocytes 1+ Target Cells 1+ Sodium Level 137 Potassium Level 3.9 Chloride Level 98 Carbon Dioxide Level 29 Anion Gap 10 Blood Urea Nitrogen 48 H Creatinine 7.16 H Est Glomerular 8 L Filtrat Rate mL/min Glucose Level 88 Calcium Level 8.7 Total Bilirubin 0.0 L Direct Bilirubin 0.00 Indirect Bilirubin 0.0 Aspartate Amino 38 Transf (AST/SGOT) Alanine 17 Aminotransferase (AL T/SGPT) Alkaline Phosphatase 84 Total Protein 6.6 Albumin 3.1 L Globulin 3.50 H Albumin/Globulin 0.88 Ratio Salicylates Level < 1.0 L Acetaminophen Level < 10.0 L Ethyl Alcohol Level < 10.0 H POC Venous Lactate 1.5 Absolute 0.079 Reticulocyte Count Percent Reticulocyte 3.8 H Count Lactic Acid Level 1.0 Iron Level 38 Total Iron Binding 169 L Capacity Percent Iron 22 Saturation Ferritin 543.0 H Urine Color YELLOW Urine Clarity CLEAR Urine pH 8.0 Urine Specific 1.014 [place] Urine Ketones NEGATIVE Urine Nitrite NEGATIVE Urine Bilirubin NEGATIVE Urine Urobilinogen NEGATIVE Urine Leukocyte NEGATIVE Esterase Urine Microscopic 1 RBC Urine Microscopic 7 H WBC Urine Hemoglobin NEGATIVE Urine Glucose 2+ H Urine Total Protein 2+ H Urine Opiates Screen Positive Urine Barbiturates Negative Urine Amphetamines Negative Screen Urine Negative Benzodiazepines Screen Urine Cocaine Screen Negative Urine Cannabinoids Negative Medications Medication Current Medications Sodium Chloride 1,000 ml @ 50 mls/hr Q20H IV ; Start 03/29/19 at 13:12; Stop 03/31/19 at 05:11 IV Flush (NS 3 ml) 3 ml PER PROTOCOL IV ; Start 03/29/19 at 13:30 Ondansetron HCl (Zofran Inj) 4 mg Q6H PRN IV NAUSEA/VOMITING; Start 03/29/19 at 13:30 Acetaminophen (Tylenol Tab) 650 mg Q6H PRN PO .PAIN 1-3 OR TEMP; Start 03/29/19 at 13:30 Olanzapine (Zyprexa) 10 mg Q12H PRN IM agitation; Start 03/29/19 at 13:30 Diagnostic Test (Pha) (Accu-Chek) 1 ea 02 XX ; Start 03/30/19 at 02:00 Insulin Aspart (Novolog Insulin Pen) NOVOLOG *MILD* ALGORITHM WITH MEALS BEDTIME SC ; Start 03/29/19 at 18:00 Pantoprazole (Protonix Iv) 40 mg BID@06,18 IV ; Start 03/29/19 at 18:00 Levetiracetam 100 ml @ 400 mls/hr Q12 IVPB ; Start 03/29/19 at 21:00 Hydralazine HCl (Apresoline) 10 mg Q4H PRN IV sbp >160; Start 03/29/19 at 14:00 Labetalol HCl (Labetalol) 10 mg Q4H PRN IV sbp>160; Start 03/29/19 at 14:00 Miscellaneous Information 1 ea NOTE XX ; Start 03/29/19 at 14:30 Glucose (Glutose) 15 gm Q15M PRN PO DECREASED GLUCOSE; Start 03/29/19 at 14:30 Glucose (Glutose) 22.5 gm Q15M PRN PO DECREASED GLUCOSE; Start 03/29/19 at 14:30 Dextrose (D50w Syringe) 25 ml Q15M PRN IV DECREASED GLUCOSE; Start 03/29/19 at 14:30 Dextrose (D50w Syringe) 50 ml Q15M PRN IV DECREASED GLUCOSE; Start 03/29/19 at 14:30 Glucagon (Glucagen) 1 mg Q15M PRN IM DECREASED GLUCOSE; Start 03/29/19 at 14:30 Glucose (Glutose) 15 gm Q15M PRN BUCCAL DECREASED GLUCOSE; Start 03/29/19 at 14:30 Piperacillin Sod/ Tazobactam Sod 50 ml @ 100 mls/hr Q8 IVPB ; Start 03/29/19 at 14:14 Sodium Chloride 1,000 ml @ 1,000 mls/hr Q1H ONCE IV Last administered on 03/29/19at 15:25; Admin Dose 1,000 MLS/HR; Start 03/29/19 at 15:30; Stop 03/29/19 at 16:29 Norepinephrine 250 ml @ 1.875 mls/ hr TITRATE IV ; Start 03/29/19 at 15:30 MIGUEL MAYO NP Mar 29, 2019 16:24
--- NOTE | 2019-03-29 16:34 | CONS ---
Assessment/Plan Assessment/Plan Assessment/Plan (Daily) 1. Acute enceophalkoapthy, unclear etiology at this time 2. acute Uremia due to missed HD 3. ESRD on HD 4. H/o CAD s/p CABG before 5. H/o CAD with previous recent stent placement in 09/2018 6. h/o HTN 7. H/o DM II 8. h/o HL 9. 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 H/o BPH 11. Hypotension requiring pressors& ICU admission , possible due to Meds side effect vs septic shock on levophed Plan: seen iN ED< agitated, confused, Required leovphed for BP support admission to ICU no signs of fluid overload and K normal will plan for HD tomorrow then will keep him on MWF schedule pt follows at [facility] and his regular schedule is MWF Meds for agitation, Avoid hypotension with meds Thanks for consultation , I will continue to follow up Consultation Date/Type/Reason Admit Date/Time 03/29/2019 Date of Consultation: Mar 29, 2019 Type of Consult NEPHROLOGY Reason for Consultation ESRD on HD missed HD with Shock Requesting Provider: STEWART WINTER Date/Time of Note DATE: 03/29/19 TIME: 16:33 Hx of Present Illness 58 y/o male with a past medical history significant for end-stage renal disease on hemodialysis, coronary artery disease status post CABG, epilepsy, history of CVA with residual left-sided deficit, BPH who presents to [facility] for agitation. He was altered and agitated prior to starting HD so it was not done and he was sent to ER for Evaluatino for AMS. Of note today attempted to give patient Ativan which did not help and was sent to the emergency room. Patient was extremely agitated and combative and ER physician had to give patient Zyprexa which immediately lowered patient's blood pressure and made him fall asleep. He is currently at SNF, He required Levophed for BP supprt and midline was placedRenal has been consulted for HD need, Currently seen in ED - unable to obtain ROS due to Agitation and sedation Subjective hx not possible: other (Unable to obtain ROS due to agitation and Sedation ) Past Medical History Medical History: congestive heart failure, coronary artery disease, high cholesterol, hypertension, other (ESRD on HD ) Home Meds Reported Medications Bisacodyl (Dulcolax) 10 Mg Supp.rect, 10 MG RC DAILY PRN for CONSTIPATION, SUPP.RECT 03/29/19 Sodium Phosphate,[place]-Dibasic (Enema Ready To Use) 133 Ml Enema, 133 ML RC EVERY 2 DAYS PRN for CONSTIPATION, ENEMA 03/29/19 Acetaminophen* (Acetaminophen*) 650 Mg Tablet, 650 MG GTB Q4 PRN for MILD PAIN LEVEL 1-3, #30 TAB AND FEVER 03/29/19 Acetaminophen* (Acetaminophen*) 500 MG Extra Strength Tablet, 1000 MG GTB Q4H PRN for MODERATE PAIN LEVEL 4-6, TAB 03/29/19 Acetaminophen* (Acetaminophen*) 500 MG Extra Strength Tablet, 1000 MG GTB BID PRN for GENERAL BODY PAIN, TAB 03/29/19 Amino Acids/Protein Hydrolys (Pro-Stat Awc Liquid) 30 Ml Liquid, 30 ML GTB DAILY SUGAR FREE 03/29/19 Multivitamin* (Daily Value*) 1 Each Tablet, 1 TAB GTB DAILY, TAB 03/29/19 Ascorbic Acid* (Vitamin C*) 500 Mg Capsule.sa, 500 MG GTB DAILY, CAP 03/29/19 Ferrous Sulfate (Ferrous Sulfate) 300 Mg/5 Ml Liquid, 325 MG GTB DAILY 03/29/19 Cran/Vitc/Mannose/Inulin/Brom (Uti-Stat Liquid) 3,875 Mg/30 Ml Liquid, 3875 MG GTB DAILY 03/29/19 Cranberry Extract (Cranberry) 425 Mg Capsule, 425 MG GTB DAILY, CAP 03/29/19 Insulin Glulisine (Apidra Solostar) 100 Unit/1 Ml Insuln.pen, 4 UNIT SQ TIDM A, #1 TUB 03/29/19 Insulin Glargine,Hum.rec.anlog (Basaglar Kwikpen U-100) 100 Unit/1 Ml Insuln.pen, 25 UNIT SC QHS, EA 03/29/19 Insulin Regular, Human (Humulin R) 100 Unit/1 Ml Vial, 0 IJ AC MEALS AND BEDTIME, VIAL 0-150 = 0 UNIT 151-200 = 1 UNIT 201-250 = 2 UNITS 251-300 = 3 UNITS 301-350 = 4 UNITS 351-400 = 5 UNITS OVER 400 GIVE 6 UNITS UNDER 70 OR OVER 400 NOTIFY 6/21/19 Sertraline Hcl* (Sertraline Hcl*) 25 Mg Tablet, 25 MG GTB DAILY, #30 TAB 03/29/19 Lorazepam* (Ativan*) 0.5 Mg Tablet, 0.5 MG GTB DAILY PRN for ANXIETY, #30 TAB 03/29/19 Quetiapine Fumarate* (Seroquel*) 25 Mg Tablet, 25 MG GTB HS, #30 TAB 03/29/19 Lorazepam* (Lorazepam*) 0.5 Mg Tablet, 0.5 MG GTB DAILY PRN for ANXIETY, TAB 03/29/19 Clonidine Hcl* (Clonidine Hcl*) 0.1 Mg Tab, 0.1 MG GTB DAILY PRN for ELEVATED BLOOD PRESSURE, TAB SBP >160 03/29/19 Azelastine Hcl* (Azelastine Hcl*) 137 Mcg/0.137 Ml [place].pump, 2 SPRAYS NASAL BID, #1 EA TO EACH NOSTRIL 03/29/19 Carvedilol* (Carvedilol*) 12.5 Mg Tablet, 12.5 MG GTB BID, #60 TAB 03/29/19 Diltiazem Hcl* (Cardizem CD*) 240 Mg Cap.sr.24h, 240 MG GTB DAILY, #30 CAP 03/29/19 Ergocalciferol (Vitamin D2) (VITAMIN D2) 50,000 Unit Capsule, 91130 UNIT GTB EVERY MONDAY, CAP 03/29/19 Hydralazine Hcl* (Hydralazine Hcl*) 50 Mg Tab, 50 MG GTB TID PRN for ELEVATED BLOOD PRESSURE, #60 TAB 03/29/19 Losartan Potassium* (Losartan Potassium*) 100 Mg Tablet, 100 MG GTB DAILY, TAB 03/29/19 Metoprolol Succinate* (Toprol XL*) 25 Mg Tab.sr.24h, 25 MG GTB DAILY, #30 TAB 03/29/19 Linagliptin (TRADJENTA) 5 Mg Tablet, 5 MG GTB DAILY, TAB 03/29/19 Albuterol Sulfate* (Proair HFA*) 8.5 Gm Hfa.aer.ad, 2 PUFF INH Q4H PRN for WHEEZING AND SOB, #1 INHALER 03/29/19 Ranitidine Hcl* (Ranitidine Hcl*) 300 Mg Tablet, 300 MG GTB HS, #30 TAB 03/29/19 Levetiracetam* (Keppra*) 500 Mg Tablet, 500 MG GTB BID, TAB 03/29/19 Gabapentin* (Gabapentin*) 100 Mg Capsule, 100 MG GTB QHS, #90 CAP 03/29/19 Doxazosin Mesylate* (Doxazosin Mesylate*) 2 Mg Tablet, 2 MG GTB HS, TAB 03/29/19 Docusate Sodium* (Dok*) 100 Mg Tablet, 100 MG GTB BID, #60 CAP 03/29/19 Cyanocobalamin (Vitamin B-12) (Cyanocobalamin Injection) 1,000 Mcg/1 Ml Vial, 1000 MCG IJ EVERY MONDAY, VIAL 03/29/19 Clopidogrel Bisulfate (Clopidogrel) 75 Mg Tablet, 75 MG GTB DAILY, #30 TAB 03/29/19 Calcium Carbonate ([place]-500) 500 Mg Tablet, 500 MG GTB DAILY, TAB 03/29/19 Baclofen* (Baclofen*) 10 Mg Tablet, 10 MG GTB BID, TAB 03/29/19 Atorvastatin* (Atorvastatin*) 40 Mg Tablet, 40 MG GTB QHS, #30 TAB 03/29/19 Aspirin (Low Dose Aspirin) 81 Mg Tablet.dr, 81 MG GTB DAILY, #30 TAB 03/29/19 Discontinued Reported Medications Quetiapine Fumarate* (Quetiapine Fumarate*) 25 Mg Tablet, 25 MG PO HS, TAB 01/21/19 Lorazepam* (Ativan*) 0.5 Mg Tablet, 0.5 MG PO DAILY, #30 TAB 01/19/19 Fluoxetine Hcl* (Fluoxetine Hcl*) 20 Mg Capsule, 20 MG PO DAILY, CAP 01/19/19 Linagliptin (TRADJENTA) 5 Mg Tablet, 5 MG PO DAILY, TAB 01/19/19 Xdokwh-Mjbacocn-Pewmcpa* (Sunil FRANK* 36,000) 36,000 L-114,000-180,000 Unit Capsule.dr, 1 CAP PO WITH MEALS, CAP 01/19/19 Megestrol Acetate* (Megestrol Acetate*) 40 Mg Tablet, 40 MG PO BID, TAB 01/19/19 Clonidine HCl (Clonidine HCl ER) 0.1 Mg Tab.er.12h, 0.1 MG PO Q6 PRN for EL EVATED BLOOD PRESSURE, #30 TAB 4/13/19 Sertraline Hcl* (Sertraline Hcl*) 25 Mg Tablet, 25 MG PO BID, #30 TAB 01/19/19 Carvedilol* (Coreg*) 25 Mg Tablet, 25 MG PO BID, #60 TAB 01/19/19 Ranitidine Hcl (Ranitidine Hcl) 300 Mg Capsule, 300 MG PO HS, #30 CAP 01/19/19 Lubiprostone* (Amitiza*) 24 Mcg Capsule, 24 MCG PO BID, #60 CAP 01/19/19 Atorvastatin* (Atorvastatin*) 80 Mg Tablet, 80 MG PO QHS, #30 TAB 01/19/19 Levetiracetam* (Keppra*) 500 Mg Tablet, 500 MG PO BID, TAB 06/02/18 Paroxetine Hcl* (Paroxetine*) 10 Mg Tablet, 10 MG PO DAILY, TAB 05/19/17 Clopidogrel Bisulfate* (Clopidogrel Bisulfate*) 75 Mg Tablet, 75 MG PO DAILY, # 30 TAB 05/19/17 Docusate Sodium* (Docusate Sodium*) 100 Mg Capsule, 100 MG PO BID, #60 CAP 05/19/17 Tramadol Hcl* (Ultram*) 50 Mg Tablet, 50 MG PO Q6H PRN for PAIN, TAB 05/19/17 Tamsulosin Hcl* (Tamsulosin Hcl*) 0.4 Mg Cap.er.24h, 0.4 MG PO DAILY, CAP 05/19/17 Ferrous Sulfate* (Ferrous Sulfate*) 325 Mg Tabec, 325 MG PO DAILY, TAB 05/19/17 Ergocalciferol (Vitamin D2) (VITAMIN D2) 50,000 Unit Capsule, 79659 UNIT PO, CAP 05/19/17 Famotidine* (Famotidine*) 40 Mg Tablet, 40 MG PO HS, TAB 10/18/15 Nitroglycerin* (Nitrostat*) 0.4 Mg Tab.subl, 0.4 MG SL Q5MIN PRN for CHEST PAIN, BOTTLE 10/18/15 Albuterol Sulfate* (Proair HFA*) 8.5 Gm Hfa.aer.ad, 2 PUFF INH Q4H PRN for WHEEZING AND SOB, #1 INHALER 10/18/15 Metformin Hcl (Glucophage) 500 Mg Tablet, 1000 MG PO BID, TAB 02/20/14 Aspirin Ec (Aspir 81) 81 Mg Tablet.dr, 81 MG PO DAILY 02/20/14 Gabapentin* (Gabapentin*) 300 Mg Capsule, 300 MG PO DAILY 02/02/13 Discontinued Scripts Losartan Potassium* (Cozaar*) 25 Mg Tablet, 25 MG PO DAILY, #30 TAB Prov:ERVIN SEALSLANA 06/05/18 Ondansetron Hcl* (Zofran*) 4 Mg Tablet, 4 MG PO Q8H PRN for NAUSEA AND/OR VOMITING, #10 TAB Prov:RAFAEL POE 10/18/15 Medications Current Medications Sodium Chloride 1,000 ml @ 50 mls/hr Q20H IV ; Start 03/29/19 at 13:12; Stop 03/31/19 at 05:11 IV Flush (NS 3 ml) 3 ml PER PROTOCOL IV ; Start 03/29/19 at 13:30 Ondansetron HCl (Zofran Inj) 4 mg Q6H PRN IV NAUSEA/VOMITING; Start 03/29/19 at 13:30 Acetaminophen (Tylenol Tab) 650 mg Q6H PRN PO .PAIN 1-3 OR TEMP; Start 03/29/19 at 13:30 Olanzapine (Zyprexa) 10 mg Q12H PRN IM agitation; Start 03/29/19 at 13:30 Diagnostic Test (Pha) (Accu-Chek) 1 ea 02 XX ; Start 03/30/19 at 02:00 Insulin Aspart (Novolog Insulin Pen) NOVOLOG *MILD* ALGORITHM WITH MEALS BEDTIME SC ; Start 03/29/19 at 18:00 Pantoprazole (Protonix Iv) 40 mg BID@06,18 IV ; Start 03/29/19 at 18:00 Levetiracetam 100 ml @ 400 mls/hr Q12 IVPB ; Start 03/29/19 at 21:00 Hydralazine HCl (Apresoline) 10 mg Q4H PRN IV sbp >160; Start 03/29/19 at 14:00 Labetalol HCl (Labetalol) 10 mg Q4H PRN IV sbp>160; Start 03/29/19 at 14:00 Miscellaneous Information 1 ea NOTE XX ; Start 03/29/19 at 14:30 Glucose (Glutose) 15 gm Q15M PRN PO DECREASED GLUCOSE; Start 03/29/19 at 14:30 Glucose (Glutose) 22.5 gm Q15M PRN PO DECREASED GLUCOSE; Start 03/29/19 at 14:30 Dextrose (D50w Syringe) 25 ml Q15M PRN IV DECREASED GLUCOSE; Start 03/29/19 at 14:30 Dextrose (D50w Syringe) 50 ml Q15M PRN IV DECREASED GLUCOSE; Start 03/29/19 at 14:30 Glucagon (Glucagen) 1 mg Q15M PRN IM DECREASED GLUCOSE; Start 03/29/19 at 14:30 Glucose (Glutose) 15 gm Q15M PRN BUCCAL DECREASED GLUCOSE; Start 03/29/19 at 14:30 Piperacillin Sod/ Tazobactam Sod 50 ml @ 100 mls/hr Q8 IVPB ; Start 03/29/19 at 14:14 Norepinephrine 250 ml @ 1.875 mls/ hr TITRATE IV ; Start 03/29/19 at 15:30 Allergies: Coded Allergies: No Known Drug Allergies (Unverified Allergy, Unknown, 05/31/18) Past Surgical History Past Surgical Hx: coronary bypass surgery, other (Right chest permacath ) Family History Significant Family History: no pertinent family hx Social History Alcohol Use: none Smoking Status: Never smoker Drug Use: none Exam/Review of Systems Exam Vitals Vital Signs Date Temp Pulse Resp B/P (MAP) Pulse Ox O2 O2 Flow FiO2 Time Delivery Rate 03/29/19 97.8 72 12 101/64 100 Room Air 14:15 (76) Constitutional: non-verbal, other (confused, agitated then sedated ) Head: normocephalic Neck: supple, jvd Respiratory: crackles/rales, diminished breath sounds Cardiovascular: regular rate and rhythm, nl pulses Gastrointestinal: soft, non-tender Musculoskeletal: swelling (1-2+pitting edema ) Extremities: normal pulses Neurological: confused, lethargic Results Result Diagram: 03/29/19 1336 03/29/19 1055 Results 24hrs Laboratory Tests Test 03/29/19 10:55 03/29/19 10:57 03/29/19 13:36 03/29/19 14:04 White Blood Count 9.1 Red Blood Count 2.03 #L Hemoglobin 6.4 #*L 6.5 *L Hematocrit 20.8 #L 20.7 L Mean Corpuscular 102.5 H Volume Mean Corpuscular 31.5 Hemoglobin Mean Corpuscular 30.8 L Hemoglobin Concent Red Cell 15.0 H Distribution Width Platelet Count 226 Mean Platelet Volume 10.4 Immature 0.800 H Granulocytes % Neutrophils % Segmented 83 H Neutrophils % (Manual) Lymphocytes % Lymphocytes % 7 L (Manual) Reactive Lymphocytes 2 H % (Manual) Monocytes % Monocytes % (Manual) 3 Eosinophils % Eosinophils % 5 (Manual) Basophils % Nucleated Red Blood 1 H Cells % Immature 0.070 H Granulocytes # Neutrophils # Lymphocytes (Manual) 0.6 L Lymphocytes # Reactive Lymphocytes 0.1 H # Monocytes # Monocytes # (Manual) 0.2 L Eosinophils # Basophils # Nucleated Red Blood Cells # Platelet Estimate NORMAL Polychromasia 1+ Hypochromasia 1+ Poikilocytosis 1+ Anisocytosis 1+ Macrocytosis 1+ Spherocytes 1+ Target Cells 1+ Sodium Level 137 Potassium Level 3.9 Chloride Level 98 Carbon Dioxide Level 29 Anion Gap 10 Blood Urea Nitrogen 48 H Creatinine 7.16 H Est Glomerular 8 L Filtrat Rate mL/min Glucose Level 88 Calcium Level 8.7 Total Bilirubin 0.0 L Direct Bilirubin 0.00 Indirect Bilirubin 0.0 Aspartate Amino 38 Transf (AST/SGOT) Alanine 17 Aminotransferase (AL T/SGPT) Alkaline Phosphatase 84 Total Protein 6.6 Albumin 3.1 L Globulin 3.50 H Albumin/Globulin 0.88 Ratio Salicylates Level < 1.0 L Acetaminophen Level < 10.0 L Ethyl Alcohol Level < 10.0 H POC Venous Lactate 1.5 Absolute 0.079 Reticulocyte Count Percent Reticulocyte 3.8 H Count Lactic Acid Level 1.0 Iron Level 38 Total Iron Binding 169 L Capacity Percent Iron 22 Saturation Ferritin 543.0 H Urine Color YELLOW Urine Clarity CLEAR Urine pH 8.0 Urine Specific 1.014 [place] Urine Ketones NEGATIVE Urine Nitrite NEGATIVE Urine Bilirubin NEGATIVE Urine Urobilinogen NEGATIVE Urine Leukocyte NEGATIVE Esterase Urine Microscopic 1 RBC Urine Microscopic 7 H WBC Urine Hemoglobin NEGATIVE Urine Glucose 2+ H Urine Total Protein 2+ H Urine Opiates Screen Positive Urine Barbiturates Negative Urine Amphetamines Negative Screen Urine Negative Benzodiazepines Screen Urine Cocaine Screen Negative Urine Cannabinoids Negative Medications Medication Current Medications Sodium Chloride 1,000 ml @ 50 mls/hr Q20H IV ; Start 03/29/19 at 13:12; Stop 03/31/19 at 05:11 IV Flush (NS 3 ml) 3 ml PER PROTOCOL IV ; Start 03/29/19 at 13:30 Ondansetron HCl (Zofran Inj) 4 mg Q6H PRN IV NAUSEA/VOMITING; Start 03/29/19 at 13:30 Acetaminophen (Tylenol Tab) 650 mg Q6H PRN PO .PAIN 1-3 OR TEMP; Start 03/29/19 at 13:30 Olanzapine (Zyprexa) 10 mg Q12H PRN IM agitation; Start 03/29/19 at 13:30 Diagnostic Test (Pha) (Accu-Chek) 1 ea 02 XX ; Start 03/30/19 at 02:00 Insulin Aspart (Novolog Insulin Pen) NOVOLOG *MILD* ALGORITHM WITH MEALS BEDTIME SC ; Start 03/29/19 at 18:00 Pantoprazole (Protonix Iv) 40 mg BID@06,18 IV ; Start 03/29/19 at 18:00 Levetiracetam 100 ml @ 400 mls/hr Q12 IVPB ; Start 03/29/19 at 21:00 Hydralazine HCl (Apresoline) 10 mg Q4H PRN IV sbp >160; Start 03/29/19 at 14:00 Labetalol HCl (Labetalol) 10 mg Q4H PRN IV sbp>160; Start 03/29/19 at 14:00 Miscellaneous Information 1 ea NOTE XX ; Start 03/29/19 at 14:30 Glucose (Glutose) 15 gm Q15M PRN PO DECREASED GLUCOSE; Start 03/29/19 at 14:30 Glucose (Glutose) 22.5 gm Q15M PRN PO DECREASED GLUCOSE; Start 03/29/19 at 14:30 Dextrose (D50w Syringe) 25 ml Q15M PRN IV DECREASED GLUCOSE; Start 03/29/19 at 14:30 Dextrose (D50w Syringe) 50 ml Q15M PRN IV DECREASED GLUCOSE; Start 03/29/19 at 14:30 Glucagon (Glucagen) 1 mg Q15M PRN IM DECREASED GLUCOSE; Start 03/29/19 at 14:30 Glucose (Glutose) 15 gm Q15M PRN BUCCAL DECREASED GLUCOSE; Start 03/29/19 at 14:30 Piperacillin Sod/ Tazobactam Sod 50 ml @ 100 mls/hr Q8 IVPB ; Start 03/29/19 at 14:14 Norepinephrine 250 ml @ 1.875 mls/ hr TITRATE IV ; Start 03/29/19 at 15:30 BETZAIDA YAÑEZ MD Mar 29, 2019 16:34
[2019-03-29] MEDS ORDERED: SODIUM CHLORIDE 0.9% 1L BAG IV PRN (17:00)
[2019-03-29] MEDS ORDERED: HEPARIN 1000 UNITS/ML 10 ML INJ CATHETER SCH (17:00)
[2019-03-29] MEDS: LORAZEPAM 2 MG INJ IV PRN (17:51)
[2019-03-29] MEDS: INSULIN ASPART [NOVOLOG] 3 ML PEN SC SCH ×2 (18:00→21:00)
[2019-03-29] MEDS: ALBUTEROL/IPRATROPIUM (NEB) 3 ML AMP HHN PRN (18:01)
[2019-03-29] MEDS: PIPER-TAZO 2.25 GM/NS 50 ML IVPB SCH ×2 (18:17→21:03)
[2019-03-29] MEDS ORDERED: FAMOTIDINE 20 MG INJ IV SCH (21:00)
[2019-03-29] MEDS: LEVETIRACETAM 500 MG (PMX) 100 ML IVPB SCH (21:03)
[2019-03-29] MEDS: PANTOPRAZOLE 40 MG INJ IV SCH (21:03)
[2019-03-29] MEDS ORDERED: SCOPOLAMINE 1.5 MG PATCH TRANSDERM ONE (21:19)
[2019-03-29] MEDS ORDERED: NALOXONE (0.4 MG/ML) INJ ONE (22:25)
[2019-03-29] MEDS ORDERED: NALOXONE (0.4 MG/ML) INJ IV ONE ×2 (22:30)
[2019-03-29] MEDS: hydrALAzine 20 MG INJ IV PRN (23:19)
[2019-03-30] VITALS (34 sets, daily range): BP systolic 97–243; BP diastolic 49–107; PULSE 70–121; RESP 11–33
[2019-03-30] MEDS ORDERED: HALOPERIDOL 5 MG INJ IM PRN
[2019-03-30] MEDS: ACCU-CHEK XX SCH (02:00)
[2019-03-30] MEDS: LABETALOL HCL 20MG INJ IV PRN ×2 (02:23→21:58)
[2019-03-30] MEDS: PIPER-TAZO 2.25 GM/NS 50 ML IVPB SCH ×3 (05:34→21:47)
[2019-03-30] MEDS: PANTOPRAZOLE 40 MG INJ IV SCH ×2 (06:00→17:27)
[2019-03-30] MEDS: INSULIN ASPART [NOVOLOG] 3 ML PEN SC SCH ×4 (07:35→21:00)
[2019-03-30] MEDS: hydrALAzine 20 MG INJ IV PRN (08:26)
[2019-03-30] MEDS: LEVETIRACETAM 500 MG (PMX) 100 ML IVPB SCH ×2 (08:36→21:06)
[2019-03-30] MEDS: LORAZEPAM 2 MG INJ IV PRN ×4 (08:43→22:52)
[2019-03-30] MEDS ORDERED: IOHEXOL 300MG/ML 150 ML BTL ONE (10:11)
--- NOTE | 2019-03-30 10:22 | PN ---
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 -Replaced with 18 Maltese gastrostomy tube Coronary artery disease status post CABG history Epilepsy BPH Plan: Replace g-tube-the patient's Alejandra who agreed to replace G- tube. Stat KUB with Gastrografin contrast via G-tube assess placement Given initial microcytic anemia will order abdominal ultrasound to rule out hepatocellular disease Check INR Monitor labs transfuse as indicated EGD/colonoscopy inpatient versus outpatient PPI BID Patient seen in collaboration with Dr. Sanders Subjective: Course reviewed with nursing staff Patient interviewed and examined All labs, imaging and other results reviewed The patient resting in bed patient pulled out G-tube this morning Talked to patient's Alejandra who is agreeable to replace G-tube. I Was cleaned and prepped with usual fashion insertion of 18 Maltese gastrotomy tube was placed without incident. Currently patient's resting in bed restless Dr. Hernández spoke to patient's who states this is patient's new baseline post his most recent stroke. Discussed with nurse and patient's will order stat KUB with Gastrografin contrast to assess placement. If G-tube is in place okay to start tube feedings PHYSICAL EXAMINATION: GENERAL: Well developed, well nourished, confused, agitated SKIN: No lesions LYMPHATIC: No palpable lymphadenopathy. HEAD: Normocephalic, atraumatic, no tenderness. EYES: Pupils equal reactive to light and accommodation, full extraocular movements, sclera clear, non-icteric, no discharge. EARS/NOSE AND THROAT: Ears normal, nose normal, oropharynx normal, oral membranes well hydrated without lesions. NECK: Supple, no masses, thyroid normal CHEST: Inspection within normal limits. CARDIOVASCULAR: Heart: Regular rate and rhythm RESPIRATORY: Lungs clear to auscultation. GASTROINTESTINAL AND LIVER: Abdomen: Soft, non tenderness, non-distended, no hernias, no masses, no organomegaly, no ascites, no guarding, no rebound tenderness, normoactive bowel sounds. Rectal: Deferred. GENITOURINARY: [Male genitalia within normal limits. EXTREMITIES: No cyanosis, clubbing or edema. Result Diagram: 03/30/19 0436 03/30/19 0436 Results 24hrs Laboratory Tests Test 03/29/19 10:55 03/29/19 10:57 03/29/19 13:36 03/29/19 14:04 White Blood 9.1 Count Red Blood Count 2.03 #L Hemoglobin 6.4 #*L 6.5 *L Hematocrit 20.8 #L 20.7 L Mean Corpuscular 102.5 H Volume Mean Corpuscular 31.5 Hemoglobin Mean Corpuscular 30.8 L Hemoglobin Dimple nt Red Cell 15.0 H Distribution Width Platelet Count 226 Mean Platelet 10.4 Volume Immature 0.800 H Granulocytes % Neutrophils % Segmented 83 H Neutrophils % (Manual) Lymphocytes % Lymphocytes % 7 L (Manual) Reactive 2 H Lymphocytes % (Manual) Monocytes % Monocytes % 3 (Manual) Eosinophils % Eosinophils % 5 (Manual) Basophils % Nucleated Red 1 H Blood Cells % Immature 0.070 H Granulocytes # Neutrophils # Lymphocytes 0.6 L (Manual) Lymphocytes # Reactive 0.1 H Lymphocytes # Monocytes # Monocytes # 0.2 L (Manual) Eosinophils # Basophils # Nucleated Red Blood Cells # Platelet NORMAL Estimate Polychromasia 1+ Hypochromasia 1+ Poikilocytosis 1+ Anisocytosis 1+ Macrocytosis 1+ Spherocytes 1+ Target Cells 1+ Sodium Level 137 Potassium Level 3.9 Chloride Level 98 Carbon Dioxide 29 Level Anion Gap 10 Blood Urea 48 H Nitrogen Creatinine 7.16 H Est Glomerular 8 L Filtrat Rate mL/min Glucose Level 88 Calcium Level 8.7 Total Bilirubin 0.0 L Direct Bilirubin 0.00 Indirect 0.0 Bilirubin Aspartate Amino 38 Transf (AST/SGOT ) Alanine 17 Aminotransferase (ALT/SGPT) Alkaline 84 Phosphatase Total Protein 6.6 Albumin 3.1 L Globulin 3.50 H Albumin/Globulin 0.88 Ratio Salicylates < 1.0 L Level Acetaminophen < 10.0 L Level Ethyl Alcohol < 10.0 H Level POC Venous 1.5 Lactate Absolute 0.079 Reticulocyte Count Percent 3.8 H Reticulocyte Count Lactic Acid 1.0 Level Iron Level 38 Total Iron 169 L Binding Capacity Percent Iron 22 Saturation Ferritin 543.0 H Urine Color YELLOW Urine Clarity CLEAR Urine pH 8.0 Urine Specific 1.014 Sarver Urine Ketones NEGATIVE Urine Nitrite NEGATIVE Urine Bilirubin NEGATIVE Urine NEGATIVE Urobilinogen Urine Leukocyte NEGATIVE Esterase Urine 1 Microscopic RBC Urine 7 H Microscopic WBC Urine Hemoglobin NEGATIVE Urine Glucose 2+ H Urine Total 2+ H Protein Urine Opiates Positive Screen Urine Negative Barbiturates Urine Negative Amphetamines Screen Urine Negative Benzodiazepines Screen Urine Cocaine Negative Screen Urine Negative Cannabinoids Test 03/29/19 19:06 03/29/19 21:01 03/29/19 22:21 03/30/19 02:29 Bedside Glucose 119 98 94 Blood Gas Blood arterial Specimen Source Arterial Blood 03/29/2019 10:45 Date Drawn :41 PM Arterial Blood 7.441 pH (Temp corrected) Arterial Blood 33.2 L pCO2 (Temp correct) Arterial Blood 253.0 H pO2 (Temp corrected) Arterial Blood 22.1 HCO3 Arterial Blood -1.6 Base Excess Arterial Blood 99.2 H Oxygen Saturatio n Santino Test N/A Arterial Blood Right Brachial Gas Puncture Site Arterial 0.3 Blood Carboxyhem oglobin Arterial Blood 0.3 Methemoglobin Blood Gas A-a O2 426.8 H Differential Oxyhemoglobin 98.6 Percent Blood Gas 37.0 Temperature Blood Gas MASK - NRB Modality FiO2 100.0 Blood Gas UP Notified Whom Blood Gas 03/29/2019 10:56 Notified Time :33 PM Test 03/30/19 04:36 03/30/19 05:17 03/30/19 07:55 White Blood 11.2 #H Count Red Blood Count 2.84 #L Hemoglobin 8.6 #L Hematocrit 27.3 #L Mean Corpuscular 96.1 Volume Mean Corpuscular 30.3 Hemoglobin Mean Corpuscular 31.5 L Hemoglobin Dimple nt Red Cell 17.4 H Distribution Width Platelet Count 257 Mean Platelet 11.1 H Volume Immature 0.800 H Granulocytes % Neutrophils % 82.8 H Lymphocytes % 7.6 L Monocytes % 5.6 Eosinophils % 2.6 Basophils % 0.6 Nucleated Red 0.0 Blood Cells % Immature 0.090 H Granulocytes # Neutrophils # 9.3 H Lymphocytes # 0.9 Monocytes # 0.6 Eosinophils # 0.3 Basophils # 0.1 Nucleated Red 0.0 Blood Cells # Sodium Level 142 Potassium Level 4.5 Chloride Level 102 Carbon Dioxide 24 Level Anion Gap 16 H Blood Urea 50 H Nitrogen Creatinine 7.62 H Est Glomerular 7 L Filtrat Rate mL/min Glucose Level 88 Hemoglobin A1c 6.1 H Calcium Level 8.7 Magnesium Level 3.1 H Total Bilirubin 0.1 L Direct Bilirubin 0.00 Indirect 0.1 Bilirubin Aspartate Amino 43 Transf (AST/SGOT ) Alanine 19 Aminotransferase (ALT/SGPT) Alkaline 78 Phosphatase Total Protein 6.5 Albumin 3.1 L Globulin 3.40 H Albumin/Globulin 0.91 Ratio Triglycerides 118 Level Cholesterol 107 Level LDL Cholesterol, 47 Calculated HDL Cholesterol 36 Cholesterol/HDL 2.9 Ratio Thyroid 4.060 Stimulating Hormone (TSH) Lab Scanned BLOOD TRANSFUSI Report ON Bedside Glucose 96 Exam/Review of Systems Exam Vitals Vital Signs Date Temp Pulse Resp B/P (MAP) Pulse Ox O2 O2 Flow FiO2 Time Delivery Rate 03/30/19 73 12 122/62 97 Mask 7.0 10:01 (82) 03/30/19 97.6 08:12 03/29/19 100 22:31 Intake and Output 03/29/19 03/29/19 03/30/19 1515:00 23:00 07:00 IntakeIntake Total 500 ml 1010 ml 280 ml OutputOutput Total 0 ml 0 ml BalanceBalance 500 ml 1010 ml 280 ml Results Results 24hrs Laboratory Tests Test 03/29/19 10:55 03/29/19 10:57 03/29/19 13:36 03/29/19 14:04 White Blood 9.1 Count Red Blood Count 2.03 #L Hemoglobin 6.4 #*L 6.5 *L Hematocrit 20.8 #L 20.7 L Mean Corpuscular 102.5 H Volume Mean Corpuscular 31.5 Hemoglobin Mean Corpuscular 30.8 L Hemoglobin Dimple nt Red Cell 15.0 H Distribution Width Platelet Count 226 Mean Platelet 10.4 Volume Immature 0.800 H Granulocytes % Neutrophils % Segmented 83 H Neutrophils % (Manual) Lymphocytes % Lymphocytes % 7 L (Manual) Reactive 2 H Lymphocytes % (Manual) Monocytes % Monocytes % 3 (Manual) Eosinophils % Eosinophils % 5 (Manual) Basophils % Nucleated Red 1 H Blood Cells % Immature 0.070 H Granulocytes # Neutrophils # Lymphocytes 0.6 L (Manual) Lymphocytes # Reactive 0.1 H Lymphocytes # Monocytes # Monocytes # 0.2 L (Manual) Eosinophils # Basophils # Nucleated Red Blood Cells # Platelet NORMAL Estimate Polychromasia 1+ Hypochromasia 1+ Poikilocytosis 1+ Anisocytosis 1+ Macrocytosis 1+ Spherocytes 1+ Target Cells 1+ Sodium Level 137 Potassium Level 3.9 Chloride Level 98 Carbon Dioxide 29 Level Anion Gap 10 Blood Urea 48 H Nitrogen Creatinine 7.16 H Est Glomerular 8 L Filtrat Rate mL/min Glucose Level 88 Calcium Level 8.7 Total Bilirubin 0.0 L Direct Bilirubin 0.00 Indirect 0.0 Bilirubin Aspartate Amino 38 Transf (AST/SGOT ) Alanine 17 Aminotransferase (ALT/SGPT) Alkaline 84 Phosphatase Total Protein 6.6 Albumin 3.1 L Globulin 3.50 H Albumin/Globulin 0.88 Ratio Salicylates < 1.0 L Level Acetaminophen < 10.0 L Level Ethyl Alcohol < 10.0 H Level POC Venous 1.5 Lactate Absolute 0.079 Reticulocyte Count Percent 3.8 H Reticulocyte Count Lactic Acid 1.0 Level Iron Level 38 Total Iron 169 L Binding Capacity Percent Iron 22 Saturation Ferritin 543.0 H Urine Color YELLOW Urine Clarity CLEAR Urine pH 8.0 Urine Specific 1.014 Sarver Urine Ketones NEGATIVE Urine Nitrite NEGATIVE Urine Bilirubin NEGATIVE Urine NEGATIVE Urobilinogen Urine Leukocyte NEGATIVE Esterase Urine 1 Microscopic RBC Urine 7 H Microscopic WBC Urine Hemoglobin NEGATIVE Urine Glucose 2+ H Urine Total 2+ H Protein Urine Opiates Positive Screen Urine Negative Barbiturates Urine Negative Amphetamines Screen Urine Negative Benzodiazepines Screen Urine Cocaine Negative Screen Urine Negative Cannabinoids Test 03/29/19 19:06 03/29/19 21:01 03/29/19 22:21 03/30/19 02:29 Bedside Glucose 119 98 94 Blood Gas Blood arterial Specimen Source Arterial Blood 03/29/2019 10:45 Date Drawn :41 PM Arterial Blood 7.441 pH (Temp corrected) Arterial Blood 33.2 L pCO2 (Temp correct) Arterial Blood 253.0 H pO2 (Temp corrected) Arterial Blood 22.1 HCO3 Arterial Blood -1.6 Base Excess Arterial Blood 99.2 H Oxygen Saturatio n Santino Test N/A Arterial Blood Right Brachial Gas Puncture Site Arterial 0.3 Blood Carboxyhem oglobin Arterial Blood 0.3 Methemoglobin Blood Gas A-a O2 426.8 H Differential Oxyhemoglobin 98.6 Percent Blood Gas 37.0 Temperature Blood Gas MASK - NRB Modality FiO2 100.0 Blood Gas UP Notified Whom Blood Gas 03/29/2019 10:56 Notified Time :33 PM Test 03/30/19 04:36 03/30/19 05:17 03/30/19 07:55 White Blood 11.2 #H Count Red Blood Count 2.84 #L Hemoglobin 8.6 #L Hematocrit 27.3 #L Mean Corpuscular 96.1 Volume Mean Corpuscular 30.3 Hemoglobin Mean Corpuscular 31.5 L Hemoglobin Dimple nt Red Cell 17.4 H Distribution Width Platelet Count 257 Mean Platelet 11.1 H Volume Immature 0.800 H Granulocytes % Neutrophils % 82.8 H Lymphocytes % 7.6 L Monocytes % 5.6 Eosinophils % 2.6 Basophils % 0.6 Nucleated Red 0.0 Blood Cells % Immature 0.090 H Granulocytes # Neutrophils # 9.3 H Lymphocytes # 0.9 Monocytes # 0.6 Eosinophils # 0.3 Basophils # 0.1 Nucleated Red 0.0 Blood Cells # Sodium Level 142 Potassium Level 4.5 Chloride Level 102 Carbon Dioxide 24 Level Anion Gap 16 H Blood Urea 50 H Nitrogen Creatinine 7.62 H Est Glomerular 7 L Filtrat Rate mL/min Glucose Level 88 Hemoglobin A1c 6.1 H Calcium Level 8.7 Magnesium Level 3.1 H Total Bilirubin 0.1 L Direct Bilirubin 0.00 Indirect 0.1 Bilirubin Aspartate Amino 43 Transf (AST/SGOT ) Alanine 19 Aminotransferase (ALT/SGPT) Alkaline 78 Phosphatase Total Protein 6.5 Albumin 3.1 L Globulin 3.40 H Albumin/Globulin 0.91 Ratio Triglycerides 118 Level Cholesterol 107 Level LDL Cholesterol, 47 Calculated HDL Cholesterol 36 Cholesterol/HDL 2.9 Ratio Thyroid 4.060 Stimulating Hormone (TSH) Lab Scanned BLOOD TRANSFUSI Report ON Bedside Glucose 96 Medications Medication Current Medications Sodium Chloride 1,000 ml @ 40 mls/hr Q24H IV Last administered on 03/29/19at 18:17; Admin Dose 50 MLS/HR; Start 03/29/19 at 13:12; Stop 03/31/19 at 13:38 IV Flush (NS 3 ml) 3 ml PER PROTOCOL IV ; Start 03/29/19 at 13:30 Ondansetron HCl (Zofran Inj) 4 mg Q6H PRN IV NAUSEA/VOMITING; Start 03/29/19 at 13:30 Acetaminophen (Tylenol Tab) 650 mg Q6H PRN PO .PAIN 1-3 OR TEMP; Start 03/29/19 at 13:30 Diagnostic Test (Pha) (Accu-Chek) 1 ea 02 XX ; Start 03/30/19 at 02:00 Insulin Aspart (Novolog Insulin Pen) NOVOLOG *MILD* ALGORITHM WITH MEALS BEDTIME SC ; Start 03/29/19 at 18:00 Pantoprazole (Protonix Iv) 40 mg BID@06,18 IV Last administered on 03/29/19at 21:03; Admin Dose 40 MG; Start 03/29/19 at 18:00 Levetiracetam 100 ml @ 400 mls/hr Q12 IVPB Last administered on 03/30/19at 08:36; Admin Dose 400 MLS/HR; Start 03/29/19 at 21:00 Hydralazine HCl (Apresoline) 10 mg Q4H PRN IV sbp >160 Last administered on 03/30/19at 08:26; Admin Dose 10 MG; Start 03/29/19 at 14:00 Labetalol HCl (Labetalol) 10 mg Q4H PRN IV sbp>160 Last administered on 03/30/19at 02:23; Admin Dose 10 MG; Start 03/29/19 at 14:00 Miscellaneous Information 1 ea NOTE XX ; Start 03/29/19 at 14:30 Glucose (Glutose) 15 gm Q15M PRN PO DECREASED GLUCOSE; Start 03/29/19 at 14:30 Glucose (Glutose) 22.5 gm Q15M PRN PO DECREASED GLUCOSE; Start 03/29/19 at 14:3 0 Dextrose (D50w Syringe) 25 ml Q15M PRN IV DECREASED GLUCOSE; Start 03/29/19 at 14:30 Dextrose (D50w Syringe) 50 ml Q15M PRN IV DECREASED GLUCOSE; Start 03/29/19 at 14:30 Glucagon (Glucagen) 1 mg Q15M PRN IM DECREASED GLUCOSE; Start 03/29/19 at 14:30 Glucose (Glutose) 15 gm Q15M PRN BUCCAL DECREASED GLUCOSE; Start 03/29/19 at 14:30 Piperacillin Sod/ Tazobactam Sod 50 ml @ 100 mls/hr Q8 IVPB Last administered on 03/30/19at 05:34; Admin Dose 100 MLS/HR; Start 03/29/19 at 14:14 Norepinephrine 250 ml @ 1.875 mls/ hr TITRATE IV ; Start 03/29/19 at 15:30 Heparin Sodium (Porcine) (Heparin (1000 Units/ml)) 4,000 unit AFTER DIALYSIS CATHETER ; Start 03/29/19 at 17:00 Albumin Human 100 ml @ 100 mls/hr WITH DIALYSIS PRN IV SBP <90 DURING DIALYSIS; Start 03/29/19 at 17:00 Sodium Chloride (NS) -To prime the dialy... DIRECTED FOR HD PRN IV HD; Start 03/29/19 at 17:00 Albuterol/ Ipratropium (Duoneb) 3 ml Q2H RESP THERAPY PRN HHN WHEEZING AND RESP DISTRESS Last administered on 03/29/19at 18:01; Admin Dose 3 ML; Start 03/29/19 at 18:00 Lorazepam (Ativan) 0.5 mg Q4H PRN IV AGITATION Last administered on 03/30/19at 08:43; Admin Dose 0.5 MG; Start 03/29/19 at 18:00 IV Flush (NS 10 ml) 10 ml Q8 PRN IV IV PROTOCOL; Start 03/29/19 at 18:00 Haloperidol (Haldol) 1 mg ONCE PRN IM AGITATION Last administered on 03/30/19at 02:36; Admin Dose 1 MG; Start 03/30/19 at 00:00 Labetalol HCl (Labetalol) 10 mg Q4H PRN IV sbp >160; Start 03/30/19 at 09:00 Haloperidol (Haldol) 5 mg Q6 PRN IM agitation; Start 03/30/19 at 10:00; Status JUNE GUTIERREZ Mar 30, 2019 10:18
--- NOTE | 2019-03-30 12:11 | PN ---
Date/Time of Note Date/Time of Note DATE: 03/30/19 TIME: 12:05 Objective Vitals Vital Signs Date Temp Pulse Resp B/P (MAP) Pulse Ox O2 O2 Flow FiO2 Time Delivery Rate 03/30/19 79 12 108/56 99 Mask 7.0 11:46 (73) 03/30/19 97.6 08:12 03/29/19 100 22:31 Intake and Output 03/29/19 03/29/19 03/30/19 1515:00 23:00 07:00 IntakeIntake Total 500 ml 1010 ml 280 ml OutputOutput Total 0 ml 0 ml BalanceBalance 500 ml 1010 ml 280 ml Results Result Diagram: 03/30/19 0436 03/30/19 0436 Medications Medications Current Medications Sodium Chloride 1,000 ml @ 40 mls/hr Q24H IV Last administered on 03/29/19at 18:17; Admin Dose 50 MLS/HR; Start 03/29/19 at 13:12; Stop 03/31/19 at 13:38 IV Flush (NS 3 ml) 3 ml PER PROTOCOL IV ; Start 03/29/19 at 13:30 Ondansetron HCl (Zofran Inj) 4 mg Q6H PRN IV NAUSEA/VOMITING; Start 03/29/19 at 13:30 Acetaminophen (Tylenol Tab) 650 mg Q6H PRN PO .PAIN 1-3 OR TEMP; Start 03/29/19 at 13:30 Diagnostic Test (Pha) (Accu-Chek) 1 ea 02 XX ; Start 03/30/19 at 02:00 Insulin Aspart (Novolog Insulin Pen) NOVOLOG *MILD* ALGORITHM WITH MEALS BEDTIME SC ; Start 03/29/19 at 18:00 Pantoprazole (Protonix Iv) 40 mg BID@06,18 IV Last administered on 03/29/19at 21:03; Admin Dose 40 MG; Start 03/29/19 at 18:00 Levetiracetam 100 ml @ 400 mls/hr Q12 IVPB Last administered on 03/30/19at 08:36; Admin Dose 400 MLS/HR; Start 03/29/19 at 21:00 Hydralazine HCl (Apresoline) 10 mg Q4H PRN IV sbp >160 Last administered on 03/30/19at 08:26; Admin Dose 10 MG; Start 03/29/19 at 14:00 Labetalol HCl (Labetalol) 10 mg Q4H PRN IV sbp>160 Last administered on 03/30/19at 02:23; Admin Dose 10 MG; Start 03/29/19 at 14:00 Miscellaneous Information 1 ea NOTE XX ; Start 03/29/19 at 14:30 Glucose (Glutose) 15 gm Q15M PRN PO DECREASED GLUCOSE; Start 03/29/19 at 14:30 Glucose (Glutose) 22.5 gm Q15M PRN PO DECREASED GLUCOSE; Start 03/29/19 at 14:30 Dextrose (D50w Syringe) 25 ml Q15M PRN IV DECREASED GLUCOSE; Start 03/29/19 at 14:30 Dextrose (D50w Syringe) 50 ml Q15M PRN IV DECREASED GLUCOSE; Start 03/29/19 at 14:30 Glucagon (Glucagen) 1 mg Q15M PRN IM DECREASED GLUCOSE; Start 03/29/19 at 14:30 Glucose (Glutose) 15 gm Q15M PRN BUCCAL DECREASED GLUCOSE; Start 03/29/19 at 14:30 Piperacillin Sod/ Tazobactam Sod 50 ml @ 100 mls/hr Q8 IVPB Last administered on 03/30/19at 05:34; Admin Dose 100 MLS/HR; Start 03/29/19 at 14:14 Norepinephrine 250 ml @ 1.875 mls/ hr TITRATE IV ; Start 03/29/19 at 15:30 Heparin Sodium (Porcine) (Heparin (1000 Units/ml)) 4,000 unit AFTER DIALYSIS CATHETER ; Start 03/29/19 at 17:00 Albumin Human 100 ml @ 100 mls/hr WITH DIALYSIS PRN IV SBP <90 DURING DIALYSIS; Start 03/29/19 at 17:00 Sodium Chloride (NS) -To prime the dialy... DIRECTED FOR HD PRN IV HD; Start 03/29/19 at 17:00 Albuterol/ Ipratropium (Duoneb) 3 ml Q2H RESP THERAPY PRN HHN WHEEZING AND RESP DISTRESS Last administered on 03/29/19at 18:01; Admin Dose 3 ML; Start 03/29/19 at 18:00 Lorazepam (Ativan) 0.5 mg Q4H PRN IV AGITATION Last administered on 03/30/19at 08:43; Admin Dose 0.5 MG; Start 03/29/19 at 18:00 IV Flush (NS 10 ml) 10 ml Q8 PRN IV IV PROTOCOL; Start 03/29/19 at 18:00 Labetalol HCl (Labetalol) 10 mg Q4H PRN IV sbp >160; Start 03/30/19 at 09:00 Haloperidol (Haldol) 5 mg Q6H PRN IM agitation; Start 03/30/19 at 10:00 VTE [place] [facility] [place]: 7 [place] [facility] [place] Lines/Catheters IV Catheter Type: Winters in Place: No Assessment/Plan Hospital Course Subjective Patient still extremely agitated, not oriented, I spoke with daughter who explained the patient's current status actually near his baseline after he left [facility] approximately 1 week ago where he was admitted in the ICU for CVA. Objective Physical exam General: Patient is laying in bed and agitated mentation: Patient is alert but not oriented Head: Normocephalic atraumatic Eyes: EOMI, pupils reactive to light Neck: Supple, nontender, midline Respiratory: Clear to auscultation bilaterally Cardiovascular: regular rate, no obvious murmurs Gastrointestinal: non-tender to palpation, bowel sounds heard. Neurological: Moves all extremities spontaneously Skin: No new skin lesions Assessment and plan Acute on chronic encephalopathy -After speaking with daughter, appears this is patient's baseline after leaving [facility] proximally 1 week ago. Patient suffered CVA and subsequent long stay in the ICU which required intubation and PEG tube. Patient almost required tracheostomy however appear to have been able to be weaned off the ventilator. -Neurology consulted -As needed medications -We will need to get a compressive list of patient's medications from [facility] as current fax over list is not legible Hypotension, resolved -Due to patient's cognitive status, patient was likely volume depleted at the [facility] -Continue very light hydration until tube feeds are started -Monitor closely Severe anemia -According to daughter, patient left [facility] 1 week ago with a hemoglobin approximately 7.0, will need to review documents that the family will bring in. -No apparent sources of GI bleed however continue PPI twice a day for now as patient does have a history of hematemesis in the past -Transfuse as needed -Gastroenterology on board Dysphasia -Baseline, patient has PEG tube, pulled out today however GI was able to reinsert the PEG tube -Start tube feeds when able End-stage renal disease on hemodialysis -Nephrology has been consulted -Dialysis as needed Coronary artery disease status post CABG history -Resume home meds when able, through PEG tube, however will need more comprehensive list as faxed over med list is not legible. Epilepsy -Continue Keppra IV History of CVA with residual left-sided deficit and more recent CVA 1 month ago -Patient reportedly had a new stroke approximately 1 month ago at [facility] which is the cause of patient's current encephalopathic state -Continue home meds when able BPH -Continue home meds when able Disposition -Continue antibiotics for now, will need to be able to control patient's agitation, will use as needed medications for now, neurology consultation pending, GI recommendations also pending for persistent anemia -More than 40 minutes have been spent on this evaluation. STEWART WINTER Mar 30, 2019 12:11
[2019-03-30] MEDS: DEXTROSE 5%-0.45% NACL 1,000 ML IV SCH (12:51)
--- NOTE | 2019-03-30 13:07 | CONSI ---
Assessment/Plan Assessment/Plan Assessment/Plan (Recall) 58 M c/ reported Hx of stroke, ESRD and other comorbidities, who is admitted for evaluation and management of agitation...for which neurology is consulted. The clinical picture could be consistent w/ delirium in the context of recent and prolonged hospitalization and subsequent transfer to skilled care. Superimposed acute toxic-metabolic encephalopathy is possible. A focal METER READER INSPECTOR process is less likely.. Head CT was unrevealing. P: Continued medical management and supportive care per primary [place] as necessary Agree w/ low dose seroquel for agitation/psychosis prn.. Limit sedating medications otherwise, where possible PT/OT/ST when able Will follow clinically Consultation Date/Type/Reason Admit Date/Time 03/29/2019 Type of Consult Neurology Reason for Consultation ams Requesting Provider: STEWART WINTER Date/Time of Note DATE: 03/30/19 TIME: 13:07 Hx of Present Illness Patient is a male with a past medical history significant for end-stage renal disease on hemodialysis, coronary artery disease status post CABG, epilepsy, history of CVA with residual left-sided deficit, BPH who presents to [facility] [place] for agitation. Currently patient is asleep secondary to antipsychotic sedation and not able to answer questions. According to nursing at bedside patient was sent from dialysis center as he was too agitated to complete dialysis. Of note today attempted to give patient Ativan which did not help and was sent to the emergency room. Patient was extremely agitated and combative and ER physician had to give patient Zyprexa which immediately lowered patient's blood pressure and made him fall asleep. Patient's at bedside stated that he has been increasingly more agitated since yesterday. Patient is currently a resident at a shelter facility. No further HPI could be reported due to patient's cognitive status Neurology is consulted to eval ams Objective Exam Vitals Vital Signs Date Temp Pulse Resp B/P (MAP) Pulse Ox O2 O2 Flow FiO2 Time Delivery Rate 03/30/19 74 16 131/70 94 Mask 7.0 12:00 (90) 03/30/19 97.6 08:12 03/29/19 100 22:31 Intake and Output 03/29/19 03/29/19 03/30/19 1515:00 23:00 07:00 IntakeIntake Total 500 ml 1010 ml 280 ml OutputOutput Total 0 ml 0 ml BalanceBalance 500 ml 1010 ml 280 ml Exam PE: Gen Appearance: No Apparent Distress HEENT: Normocephalic Cardiovascular: Regular rate Abdomen: Soft Extremities: Dry NE: The patient was alert though disoriented. Language was normal. Fund of knowledge was limited. Pupils were equal and reactive to light. There was no afferent pupillary defect. Visual jin were normal. Funduscopic examination was limited. Extra-ocular movements were full. Ptosis was absent. There was no nystagmus. Facial sensation was normal. Face was symmetric with normal strength. Hearing was intact. Palate movements were normal. Neck strength was normal. There was normal tongue bulk and speed of movement. Tone was normal. Muscle bulk was normal. I did not see fasciculations. Arms and legs were symmetric..though examination limited by 2 point restraints. Vibration sensation was reduced distally. Temperature and pinprick sensation was normal. Rapid alternating movements were normal. There was no dysmetria. There was no intention tremor. Gait was deferred due to bedrest. Arm and leg reflexes were symmetric. Anderson's sign was absent. Plantar responses were flexor. Results Result Diagram: 03/30/19 0436 03/30/19 0436 Results 24hrs Laboratory Tests Test 03/29/19 13:36 03/29/19 14:04 03/29/19 19:06 03/29/19 21:01 Hemoglobin 6.5 *L Hematocrit 20.7 L Absolute 0.079 Reticulocyte Count Percent 3.8 H Reticulocyte Count Lactic Acid 1.0 Level Iron Level 38 Total Iron 169 L Binding Capacity Percent Iron 22 Saturation Ferritin 543.0 H Urine Color YELLOW Urine Clarity CLEAR Urine pH 8.0 Urine Specific 1.014 [place] Urine Ketones NEGATIVE Urine Nitrite NEGATIVE Urine Bilirubin NEGATIVE Urine NEGATIVE Urobilinogen Urine Leukocyte NEGATIVE Esterase Urine 1 Microscopic RBC Urine 7 H Microscopic WBC Urine Hemoglobin NEGATIVE Urine Glucose 2+ H Urine Total 2+ H Protein Urine Opiates Positive Screen Urine Negative Barbiturates Urine Negative Amphetamines Screen Urine Negative Benzodiazepines Screen Urine Cocaine Negative Screen Urine Negative Cannabinoids Bedside Glucose 119 98 Test 03/29/19 22:21 03/30/19 02:29 03/30/19 04:36 03/30/19 05:17 Blood Gas Blood arterial Specimen Source Arterial Blood 03/29/2019 10:45 Date Drawn :41 PM Arterial Blood 7.441 pH (Temp corrected) Arterial Blood 33.2 L pCO2 (Temp correct) Arterial Blood 253.0 H pO2 (Temp corrected) Arterial Blood 22.1 HCO3 Arterial Blood -1.6 Base Excess Arterial Blood 99.2 H Oxygen Saturatio n Santino Test N/A Arterial Blood Right Brachial Gas Puncture Site Arterial 0.3 Blood Carboxyhem oglobin Arterial Blood 0.3 Methemoglobin Blood Gas A-a O2 426.8 H Differential Oxyhemoglobin 98.6 Percent Blood Gas 37.0 Temperature Blood Gas MASK - NRB Modality FiO2 100.0 Blood Gas UP Notified Whom Blood Gas 03/29/2019 10:56 Notified Time :33 PM Bedside Glucose 94 White Blood 11.2 #H Count Red Blood Count 2.84 #L Hemoglobin 8.6 #L Hematocrit 27.3 #L Mean Corpuscular 96.1 Volume Mean Corpuscular 30.3 Hemoglobin Mean Corpuscular 31.5 L Hemoglobin Dimple nt Red Cell 17.4 H Distribution Width Platelet Count 257 Mean Platelet 11.1 H Volume Immature 0.800 H Granulocytes % Neutrophils % 82.8 H Lymphocytes % 7.6 L Monocytes % 5.6 Eosinophils % 2.6 Basophils % 0.6 Nucleated Red 0.0 Blood Cells % Immature 0.090 H Granulocytes # Neutrophils # 9.3 H Lymphocytes # 0.9 Monocytes # 0.6 Eosinophils # 0.3 Basophils # 0.1 Nucleated Red 0.0 Blood Cells # Sodium Level 142 Potassium Level 4.5 Chloride Level 102 Carbon Dioxide 24 Level Anion Gap 16 H Blood Urea 50 H Nitrogen Creatinine 7.62 H Est Glomerular 7 L Filtrat Rate mL/min Glucose Level 88 Hemoglobin A1c 6.1 H Calcium Level 8.7 Magnesium Level 3.1 H Total Bilirubin 0.1 L Direct Bilirubin 0.00 Indirect 0.1 Bilirubin Aspartate Amino 43 Transf (AST/SGOT ) Alanine 19 Aminotransferase (ALT/SGPT) Alkaline 78 Phosphatase Total Protein 6.5 Albumin 3.1 L Globulin 3.40 H Albumin/Globulin 0.91 Ratio Triglycerides 118 Level Cholesterol 107 Level LDL Cholesterol, 47 Calculated HDL Cholesterol 36 Cholesterol/HDL 2.9 Ratio Thyroid 4.060 Stimulating Hormone (TSH) Lab Scanned BLOOD TRANSFUSI Report ON Test 03/30/19 07:55 03/30/19 11:45 Bedside Glucose 96 92 Past Medical History reviewed Home Meds Reported Medications Bisacodyl (Dulcolax) 10 Mg Supp.rect, 10 MG RC DAILY PRN for CONSTIPATION, SUPP.RECT 03/29/19 Sodium Phosphate,[place]-Dibasic (Enema Ready To Use) 133 Ml Enema, 133 ML RC EVERY 2 DAYS PRN for CONSTIPATION, ENEMA 03/29/19 Acetaminophen* (Acetaminophen*) 650 Mg Tablet, 650 MG GTB Q4 PRN for MILD PAIN LEVEL 1-3, #30 TAB AND FEVER 03/29/19 Acetaminophen* (Acetaminophen*) 500 MG Extra Strength Tablet, 1000 MG GTB Q4H PRN for MODERATE PAIN LEVEL 4-6, TAB 03/29/19 Acetaminophen* (Acetaminophen*) 500 MG Extra Strength Tablet, 1000 MG GTB BID PRN for GENERAL BODY PAIN, TAB 03/29/19 Amino Acids/Protein Hydrolys (Pro-Stat Awc Liquid) 30 Ml Liquid, 30 ML GTB DAILY SUGAR FREE 03/29/19 Multivitamin* (Daily Value*) 1 Each Tablet, 1 TAB GTB DAILY, TAB 03/29/19 Ascorbic Acid* (Vitamin C*) 500 Mg Capsule.sa, 500 MG GTB DAILY, CAP 03/29/19 Ferrous Sulfate (Ferrous Sulfate) 300 Mg/5 Ml Liquid, 325 MG GTB DAILY 03/29/19 Cran/Vitc/Mannose/Inulin/Brom (Uti-Stat Liquid) 3,875 Mg/30 Ml Liquid, 3875 MG GTB DAILY 03/29/19 Cranberry Extract (Cranberry) 425 Mg Capsule, 425 MG GTB DAILY, CAP 03/29/19 Insulin Glulisine (Apidra Solostar) 100 Unit/1 Ml Insuln.pen, 4 UNIT SQ TIDM A, #1 TUB 03/29/19 Insulin Glargine,Hum.rec.anlog (Basaglar Kwikpen U-100) 100 Unit/1 Ml Insuln.pen, 25 UNIT SC QHS, EA 03/29/19 Insulin Regular, Human (Humulin R) 100 Unit/1 Ml Vial, 0 IJ AC MEALS AND BE DTIME, VIAL 0-150 = 0 UNIT 151-200 = 1 UNIT 201-250 = 2 UNITS 251-300 = 3 UNITS 301-350 = 4 UNITS 351-400 = 5 UNITS OVER 400 GIVE 6 UNITS UNDER 70 OR OVER 400 NOTIFY 03/29/19 Sertraline Hcl* (Sertraline Hcl*) 25 Mg Tablet, 25 MG GTB DAILY, #30 TAB 03/29/19 Lorazepam* (Ativan*) 0.5 Mg Tablet, 0.5 MG GTB DAILY PRN for ANXIETY, #30 TAB 03/29/19 Quetiapine Fumarate* (Seroquel*) 25 Mg Tablet, 25 MG GTB HS, #30 TAB 03/29/19 Lorazepam* (Lorazepam*) 0.5 Mg Tablet, 0.5 MG GTB DAILY PRN for ANXIETY, TAB 03/29/19 Clonidine Hcl* (Clonidine Hcl*) 0.1 Mg Tab, 0.1 MG GTB DAILY PRN for ELEVATED BLOOD PRESSURE, TAB SBP >160 03/29/19 Azelastine Hcl* (Azelastine Hcl*) 137 Mcg/0.137 Ml Mason.pump, 2 SPRAYS NASAL BID, #1 EA TO EACH NOSTRIL 03/29/19 Carvedilol* (Carvedilol*) 12.5 Mg Tablet, 12.5 MG GTB BID, #60 TAB 03/29/19 Diltiazem Hcl* (Cardizem CD*) 240 Mg Cap.sr.24h, 240 MG GTB DAILY, #30 CAP 03/29/19 Ergocalciferol (Vitamin D2) (VITAMIN D2) 50,000 Unit Capsule, 72479 UNIT GTB EVERY MONDAY, CAP 03/29/19 Hydralazine Hcl* (Hydralazine Hcl*) 50 Mg Tab, 50 MG GTB TID PRN for ELEVATED BLOOD PRESSURE, #60 TAB 03/29/19 Losartan Potassium* (Losartan Potassium*) 100 Mg Tablet, 100 MG GTB DAILY, TAB 03/29/19 Metoprolol Succinate* (Toprol XL*) 25 Mg Tab.sr.24h, 25 MG GTB DAILY, #30 TAB 03/29/19 Linagliptin (TRADJENTA) 5 Mg Tablet, 5 MG GTB DAILY, TAB 03/29/19 Albuterol Sulfate* (Proair HFA*) 8.5 Gm Hfa.aer.ad, 2 PUFF INH Q4H PRN for WHEEZING AND SOB, #1 INHALER 03/29/19 Ranitidine Hcl* (Ranitidine Hcl*) 300 Mg Tablet, 300 MG GTB HS, #30 TAB 03/29/19 Levetiracetam* (Keppra*) 500 Mg Tablet, 500 MG GTB BID, TAB 03/29/19 Gabapentin* (Gabapentin*) 100 Mg Capsule, 100 MG GTB QHS, #90 CAP 03/29/19 Doxazosin Mesylate* (Doxazosin Mesylate*) 2 Mg Tablet, 2 MG GTB HS, TAB 03/29/19 Docusate Sodium* (Dok*) 100 Mg Tablet, 100 MG GTB BID, #60 CAP 03/29/19 Cyanocobalamin (Vitamin B-12) (Cyanocobalamin Injection) 1,000 Mcg/1 Ml Vial, 1000 MCG IJ EVERY MONDAY, VIAL 03/29/19 Clopidogrel Bisulfate (Clopidogrel) 75 Mg Tablet, 75 MG GTB DAILY, #30 TAB 03/29/19 Calcium Carbonate (Oysco-500) 500 Mg Tablet, 500 MG GTB DAILY, TAB 03/29/19 Baclofen* (Baclofen*) 10 Mg Tablet, 10 MG GTB BID, TAB 03/29/19 Atorvastatin* (Atorvastatin*) 40 Mg Tablet, 40 MG GTB QHS, #30 TAB 03/29/19 Aspirin (Low Dose Aspirin) 81 Mg Tablet.dr, 81 MG GTB DAILY, #30 TAB 03/29/19 Discontinued Reported Medications Quetiapine Fumarate* (Quetiapine Fumarate*) 25 Mg Tablet, 25 MG PO HS, TAB 01/21/19 Lorazepam* (Ativan*) 0.5 Mg Tablet, 0.5 MG PO DAILY, #30 TAB 01/19/19 Fluoxetine Hcl* (Fluoxetine Hcl*) 20 Mg Capsule, 20 MG PO DAILY, CAP 01/19/19 Linagliptin (TRADJENTA) 5 Mg Tablet, 5 MG PO DAILY, TAB 01/19/19 Jfwiic-Kwcunwkf-Zxvogpd* (Sunil FRANK* 36,000) 36,000 L-114,000-180,000 Unit Cap justin., 1 CAP PO WITH MEALS, CAP 01/19/19 Megestrol Acetate* (Megestrol Acetate*) 40 Mg Tablet, 40 MG PO BID, TAB 01/19/19 Clonidine HCl (Clonidine HCl ER) 0.1 Mg Tab.er.12h, 0.1 MG PO Q6 PRN for ELEVATED BLOOD PRESSURE, #30 TAB 01/19/19 Sertraline Hcl* (Sertraline Hcl*) 25 Mg Tablet, 25 MG PO BID, #30 TAB 01/19/19 Carvedilol* (Coreg*) 25 Mg Tablet, 25 MG PO BID, #60 TAB 01/19/19 Ranitidine Hcl (Ranitidine Hcl) 300 Mg Capsule, 300 MG PO HS, #30 CAP 01/19/19 Lubiprostone* (Amitiza*) 24 Mcg Capsule, 24 MCG PO BID, #60 CAP 01/19/19 Atorvastatin* (Atorvastatin*) 80 Mg Tablet, 80 MG PO QHS, #30 TAB 01/19/19 Levetiracetam* (Keppra*) 500 Mg Tablet, 500 MG PO BID, TAB 06/02/18 Paroxetine Hcl* (Paroxetine*) 10 Mg Tablet, 10 MG PO DAILY, TAB 05/19/17 Clopidogrel Bisulfate* (Clopidogrel Bisulfate*) 75 Mg Tablet, 75 MG PO DAILY, #30 TAB 05/19/17 Docusate Sodium* (Docusate Sodium*) 100 Mg Capsule, 100 MG PO BID, #60 CAP 05/19/17 Tramadol Hcl* (Ultram*) 50 Mg Tablet, 50 MG PO Q6H PRN for PAIN, TAB 05/19/17 Tamsulosin Hcl* (Tamsulosin Hcl*) 0.4 Mg Cap.er.24h, 0.4 MG PO DAILY, CAP 05/19/17 Ferrous Sulfate* (Ferrous Sulfate*) 325 Mg Tabec, 325 MG PO DAILY, TAB 05/19/17 Ergocalciferol (Vitamin D2) (VITAMIN D2) 50,000 Unit Capsule, 42662 UNIT PO, CAP 05/19/17 Famotidine* (Famotidine*) 40 Mg Tablet, 40 MG PO HS, TAB 10/18/15 Nitroglycerin* (Nitrostat*) 0.4 Mg Tab.subl, 0.4 MG SL Q5MIN PRN for CHEST PAIN, BOTTLE 10/18/15 Albuterol Sulfate* (Proair HFA*) 8.5 Gm Hfa.aer.ad, 2 PUFF INH Q4H PRN for WHEEZING AND SOB, #1 INHALER 10/18/15 Metformin Hcl (Glucophage) 500 Mg Tablet, 1000 MG PO BID, TAB 02/20/14 Aspirin Ec (Aspir 81) 81 Mg Tablet.dr, 81 MG PO DAILY 02/20/14 Gabapentin* (Gabapentin*) 300 Mg Capsule, 300 MG PO DAILY 02/02/13 Discontinued Scripts Losartan Potassium* (Cozaar*) 25 Mg Tablet, 25 MG PO DAILY, #30 TAB Prov:ERVIN SEALSLANA 06/05/18 Ondansetron Hcl* (Zofran*) 4 Mg Tablet, 4 MG PO Q8H PRN for NAUSEA AND/OR VOMITING, #10 TAB Prov:RAFAEL POE 10/18/15 Medications Current Medications IV Flush (NS 3 ml) 3 ml PER PROTOCOL IV ; Start 03/29/19 at 13:30 Ondansetron HCl (Zofran Inj) 4 mg Q6H PRN IV NAUSEA/VOMITING; Start 03/29/19 at 13:30 Acetaminophen (Tylenol Tab) 650 mg Q6H PRN PO .PAIN 1-3 OR TEMP; Start 03/29/19 at 13:30 Diagnostic Test (Pha) (Accu-Chek) 1 ea 02 XX ; Start 03/30/19 at 02:00 Insulin Aspart (Novolog Insulin Pen) NOVOLOG *MILD* ALGORITHM WITH MEALS BEDTIME SC ; Start 03/29/19 at 18:00 Pantoprazole (Protonix Iv) 40 mg BID@06,18 IV Last administered on 03/29/19at 21:03; Admin Dose 40 MG; Start 03/29/19 at 18:00 Levetiracetam 100 ml @ 400 mls/hr Q12 IVPB Last administered on 03/30/19at 08:36; Admin Dose 400 MLS/HR; Start 03/29/19 at 21:00 Hydralazine HCl (Apresoline) 10 mg Q4H PRN IV sbp >160 Last administered on 03/30/19at 08:26; Admin Dose 10 MG; Start 03/29/19 at 14:00 Labetalol HCl (Labetalol) 10 mg Q4H PRN IV sbp>160 Last administered on 03/30/19at 02:23; Admin Dose 10 MG; Start 03/29/19 at 14:00 Miscellaneous Information 1 ea NOTE XX ; Start 03/29/19 at 14:30 Glucose (Glutose) 15 gm Q15M PRN PO DECREASED GLUCOSE; Start 03/29/19 at 14:30 Glucose (Glutose) 22.5 gm Q15M PRN PO DECREASED GLUCOSE; Start 03/29/19 at 14:30 Dextrose (D50w Syringe) 25 ml Q15M PRN IV DECREASED GLUCOSE; Start 03/29/19 at 14:30 Dextrose (D50w Syringe) 50 ml Q15M PRN IV DECREASED GLUCOSE; Start 03/29/19 at 14:30 Glucagon (Glucagen) 1 mg Q15M PRN IM DECREASED GLUCOSE; Start 03/29/19 at 14:30 Glucose (Glutose) 15 gm Q15M PRN BUCCAL DECREASED GLUCOSE; Start 03/29/19 at 14:30 Piperacillin Sod/ Tazobactam Sod 50 ml @ 100 mls/hr Q8 IVPB Last administered on 03/30/19at 05:34; Admin Dose 100 MLS/HR; Start 03/29/19 at 14:14 Norepinephrine 250 ml @ 1.875 mls/ hr TITRATE IV ; Start 03/29/19 at 15:30 Heparin Sodium (Porcine) (Heparin (1000 Units/ml)) 4,000 unit AFTER DIALYSIS CATHETER ; Start 03/29/19 at 17:00 Albumin Human 100 ml @ 100 mls/hr WITH DIALYSIS PRN IV SBP <90 DURING DIALYSIS; Start 03/29/19 at 17:00 Sodium Chloride (NS) -To prime the dialy... DIRECTED FOR HD PRN IV HD; Start 03/29/19 at 17:00 Albuterol/ Ipratropium (Duoneb) 3 ml Q2H RESP THERAPY PRN HHN WHEEZING AND RESP DISTRESS Last administered on 03/29/19at 18:01; Admin Dose 3 ML; Start 03/29/19 at 18:00 Lorazepam (Ativan) 0.5 mg Q4H PRN IV AGITATION Last administered on 03/30/19at 08:43; Admin Dose 0.5 MG; Start 03/29/19 at 18:00 IV Flush (NS 10 ml) 10 ml Q8 PRN IV IV PROTOCOL; Start 03/29/19 at 18:00 Labetalol HCl (Labetalol) 10 mg Q4H PRN IV sbp >160; Start 03/30/19 at 09:00 Haloperidol (Haldol) 5 mg Q6H PRN IM agitation; Start 03/30/19 at 10:00 Dextrose/Sodium Chloride 1,000 ml @ 50 mls/hr Q20H IV Last administered on 03/30/19at 12:51; Admin Dose 50 MLS/HR; Start 03/30/19 at 12:30 Allergies: Coded Allergies: No Known Drug Allergies (Unverified Allergy, Unknown, 05/31/18) Past Surgical History Past Surgical Hx: other Social History Smoking Status: Never smoker GEOVANNI BLANCHARD Mar 30, 2019 13:07
--- NOTE | 2019-03-30 14:48 | CONS ---
Assessment/Plan Assessment/Plan Assessment/Plan (Daily) 1. Acute enceophalkoapthy, unclear etiology at this time 2. acute Uremia due to missed HD 3. ESRD on HD 4. H/o CAD s/p CABG before 5. H/o CAD with previous recent stent placement in 09/2018 6. h/o HTN 7. H/o DM II 8. h/o HL 9. 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 H/o BPH 11. Hypotension requiring pressors& ICU admission , possible due to Meds side effect vs septic shock on levophed Plan: Plan for MRI, neurology consulted, HD today , Nurse instructed to call [facility] since it was missed yesterday after HD today, will keep pt o [facility] schedule, next HD will beon Monday will tiago granados Consultation Date/Type/Reason Admit Date/Time Mar 29, 2019 at 13:16 Initial Consult Date 03/29/19 Type of Consult NEPHROLOGY Requesting Provider: STEWART WINTER Date/Time of Note DATE: 03/30/19 TIME: 14:48 24 HR Interval Summary Free Text/Dictation pt remained confuesd, lethargic Plan for HD today , Plan for MRI today Exam/Review of Systems Exam Vitals Vital Signs Date Temp Pulse Resp B/P (MAP) Pulse Ox O2 O2 Flow FiO2 Time Delivery Rate 03/30/19 116 27 184/89 100 Mask 7.0 14:26 (120) 03/30/19 97.6 08:12 03/29/19 100 22:31 Intake and Output 03/29/19 03/29/19 03/30/19 1515:00 23:00 07:00 IntakeIntake Total 500 ml 1010 ml 280 ml OutputOutput Total 0 ml 0 ml BalanceBalance 500 ml 1010 ml 280 ml Exam Constitutional: non-verbal, other (confused, agitated then sedated ) Head: normocephalic Neck: supple, jvd Respiratory: crackles/rales, diminished breath sounds Cardiovascular: regular rate and rhythm, nl pulses Gastrointestinal: soft, non-tender Musculoskeletal: swelling (1-2+pitting edema ) Extremities: normal pulses Neurological: confused, lethargic Results Result Diagram: 03/30/19 0436 03/30/19 0436 Results 24hrs Laboratory Tests Test 03/29/19 19:06 03/29/19 21:01 03/29/19 22:21 03/30/19 02:29 Bedside Glucose 119 98 94 Blood Gas Blood arterial Specimen Source Arterial Blood 03/29/2019 10:45 Date Drawn :41 PM Arterial Blood 7.441 pH (Temp corrected) Arterial Blood 33.2 L pCO2 (Temp correct) Arterial Blood 253.0 H pO2 (Temp corrected) Arterial Blood 22.1 HCO3 Arterial Blood -1.6 Base Excess Arterial Blood 99.2 H Oxygen Saturatio n Santino Test N/A Arterial Blood Right Brachial Gas Puncture Site Arterial 0.3 Blood Carboxyhem oglobin Arterial Blood 0.3 Methemoglobin Blood Gas A-a O2 426.8 H Differential Oxyhemoglobin 98.6 Percent Blood Gas 37.0 Temperature Blood Gas MASK - NRB Modality FiO2 100.0 Blood Gas UP Notified Whom Blood Gas 03/29/2019 10:56 Notified Time :33 PM Test 03/30/19 04:36 03/30/19 05:17 03/30/19 07:55 03/30/19 11:45 White Blood 11.2 #H Count Red Blood Count 2.84 #L Hemoglobin 8.6 #L Hematocrit 27.3 #L Mean Corpuscular 96.1 Volume Mean Corpuscular 30.3 Hemoglobin Mean Corpuscular 31.5 L Hemoglobin Dimple nt Red Cell 17.4 H Distribution Width Platelet Count 257 Mean Platelet 11.1 H Volume Immature 0.800 H Granulocytes % Neutrophils % 82.8 H Lymphocytes % 7.6 L Monocytes % 5.6 Eosinophils % 2.6 Basophils % 0.6 Nucleated Red 0.0 Blood Cells % Immature 0.090 H Granulocytes # Neutrophils # 9.3 H Lymphocytes # 0.9 Monocytes # 0.6 Eosinophils # 0.3 Basophils # 0.1 Nucleated Red 0.0 Blood Cells # Sodium Level 142 Potassium Level 4.5 Chloride Level 102 Carbon Dioxide 24 Level Anion Gap 16 H Blood Urea 50 H Nitrogen Creatinine 7.62 H Est Glomerular 7 L Filtrat Rate mL/min Glucose Level 88 Hemoglobin A1c 6.1 H Calcium Level 8.7 Magnesium Level 3.1 H Total Bilirubin 0.1 L Direct Bilirubin 0.00 Indirect 0.1 Bilirubin Aspartate Amino 43 Transf (AST/SGOT ) Alanine 19 Aminotransferase (ALT/SGPT) Alkaline 78 Phosphatase Total Protein 6.5 Albumin 3.1 L Globulin 3.40 H Albumin/Globulin 0.91 Ratio Triglycerides 118 Level Cholesterol 107 Level LDL Cholesterol, 47 Calculated HDL Cholesterol 36 Cholesterol/HDL 2.9 Ratio Thyroid 4.060 Stimulating Hormone (TSH) Lab Scanned BLOOD TRANSFUSI Report ON Bedside Glucose 96 92 Medications Medication Current Medications IV Flush (NS 3 ml) 3 ml PER PROTOCOL IV ; Start 03/29/19 at 13:30 Ondansetron HCl (Zofran Inj) 4 mg Q6H PRN IV NAUSEA/VOMITING; Start 03/29/19 at 13:30 Acetaminophen (Tylenol Tab) 650 mg Q6H PRN PO .PAIN 1-3 OR TEMP; Start 03/29/19 at 13:30 Diagnostic Test (Pha) (Accu-Chek) 1 ea 02 XX ; Start 03/30/19 at 02:00 Insulin Aspart (Novolog Insulin Pen) NOVOLOG *MILD* ALGORITHM WITH MEALS BEDTIME SC ; Start 03/29/19 at 18:00 Pantoprazole (Protonix Iv) 40 mg BID@06,18 IV Last administered on 03/29/19at 21:03; Admin Dose 40 MG; Start 03/29/19 at 18:00 Levetiracetam 100 ml @ 400 mls/hr Q12 IVPB Last administered on 03/30/19at 08:36; Admin Dose 400 MLS/HR; Start 03/29/19 at 21:00 Hydralazine HCl (Apresoline) 10 mg Q4H PRN IV sbp >160 Last administered on 03/30/19at 08:26; Admin Dose 10 MG; Start 03/29/19 at 14:00 Labetalol HCl (Labetalol) 10 mg Q4H PRN IV sbp>160 Last administered on 03/30/19at 02:23; Admin Dose 10 MG; Start 03/29/19 at 14:00 Miscellaneous Information 1 ea NOTE XX ; Start 03/29/19 at 14:30 Glucose (Glutose) 15 gm Q15M PRN PO DECREASED GLUCOSE; Start 03/29/19 at 14:30 Glucose (Glutose) 22.5 gm Q15M PRN PO DECREASED GLUCOSE; Start 03/29/19 at 14:30 Dextrose (D50w Syringe) 25 ml Q15M PRN IV DECREASED GLUCOSE; Start 03/29/19 at 14:30 Dextrose (D50w Syringe) 50 ml Q15M PRN IV DECREASED GLUCOSE; Start 03/29/19 at 14:30 Glucagon (Glucagen) 1 mg Q15M PRN IM DECREASED GLUCOSE; Start 03/29/19 at 14:30 Glucose (Glutose) 15 gm Q15M PRN BUCCAL DECREASED GLUCOSE; Start 03/29/19 at 14:30 Piperacillin Sod/ Tazobactam Sod 50 ml @ 100 mls/hr Q8 IVPB Last administered on 03/30/19at 14:21; Admin Dose 100 MLS/HR; Start 03/29/19 at 14:14 Norepinephrine 250 ml @ 1.875 mls/ hr TITRATE IV ; Start 03/29/19 at 15:30 Heparin Sodium (Porcine) (Heparin (1000 Units/ml)) 4,000 unit AFTER DIALYSIS CATHETER ; Start 03/29/19 at 17:00 Albumin Human 100 ml @ 100 mls/hr WITH DIALYSIS PRN IV SBP <90 DURING DIALYSIS; Start 03/29/19 at 17:00 Sodium Chloride (NS) -To prime the dialy... DIRECTED FOR HD PRN IV HD; Start 03/29/19 at 17:00 Albuterol/ Ipratropium (Duoneb) 3 ml Q2H RESP THERAPY PRN HHN WHEEZING AND RESP DISTRESS Last administered on 03/29/19at 18:01; Admin Dose 3 ML; Start 03/29/19 at 18:00 Lorazepam (Ativan) 0.5 mg Q4H PRN IV AGITATION Last administered on 03/30/19at 14:19; Admin Dose 0.5 MG; Start 03/29/19 at 18:00 IV Flush (NS 10 ml) 10 ml Q8 PRN IV IV PROTOCOL; Start 03/29/19 at 18:00 Labetalol HCl (Labetalol) 10 mg Q4H PRN IV sbp >160; Start 03/30/19 at 09:00 Haloperidol (Haldol) 5 mg Q6H PRN IM agitation; Start 03/30/19 at 10:00 Dextrose/Sodium Chloride 1,000 ml @ 50 mls/hr Q20H IV Last administered on 03/30/19at 12:51; Admin Dose 50 MLS/HR; Start 03/30/19 at 12:30 BETZAIDA YAÑEZ MD Mar 30, 2019 14:48
[2019-03-30] MEDS: HALOPERIDOL 5 MG INJ IM PRN (17:46)
[2019-03-30] MEDS: HEPARIN 1000 UNITS/ML 10 ML INJ CATHETER SCH (19:02)
[2019-03-31] VITALS (60 sets, daily range): BP systolic 103–208; BP diastolic 50–121; PULSE 80–118; RESP 14–37
[2019-03-31] MEDS: HALOPERIDOL 5 MG INJ IM PRN (00:10)
[2019-03-31] MEDS ORDERED: LABETALOL HCL 20MG INJ IV ONE (01:00)
[2019-03-31] MEDS: ACCU-CHEK XX SCH (02:00)
[2019-03-31] MEDS: PIPER-TAZO 2.25 GM/NS 50 ML IVPB SCH ×3 (05:31→22:36)
[2019-03-31] MEDS: PANTOPRAZOLE 40 MG INJ IV SCH ×2 (05:31→17:18)
[2019-03-31] MEDS: LABETALOL HCL 20MG INJ IV PRN (05:39)
[2019-03-31] MEDS: LORAZEPAM 2 MG INJ IV PRN (05:41)
[2019-03-31] MEDS: INSULIN ASPART [NOVOLOG] 3 ML PEN SC SCH ×4 (07:35→20:54)
[2019-03-31] MEDS: DEXTROSE 5%-0.45% NACL 1,000 ML IV SCH (08:51)
[2019-03-31] MEDS: LEVETIRACETAM 500 MG (PMX) 100 ML IVPB SCH ×2 (08:51→20:42)
--- NOTE | 2019-03-31 09:22 | PN ---
Date/Time of Note Date/Time of Note DATE: 03/31/19 TIME: : Objective Vitals Vital Signs Date Temp Pulse Resp B/P (MAP) Pulse Ox O2 O2 Flow FiO2 Time Delivery Rate 03/31/19 91 08:01 03/31/19 100.1 23 167/96 98 Mask 8.0 08:00 (119) 03/29/19 100 22:31 Intake and Output 03/30/19 03/30/19 03/31/19 1515:00 23:00 07:00 IntakeIntake Total 350 ml 400 ml OutputOutput Total 2600 ml BalanceBalance -2250 ml 400 ml Results Result Diagram: 03/31/19 0430 03/31/19 0430 Medications Medications Current Medications IV Flush (NS 3 ml) 3 ml PER PROTOCOL IV ; Start 03/29/19 at 13:30 Ondansetron HCl (Zofran Inj) 4 mg Q6H PRN IV NAUSEA/VOMITING; Start 03/29/19 at 13:30 Acetaminophen (Tylenol Tab) 650 mg Q6H PRN PO .PAIN 1-3 OR TEMP Last administered on 03/31/19at 05:48; Admin Dose 650 MG; Start 03/29/19 at 13:30 Diagnostic Test (Pha) (Accu-Chek) 1 ea 02 XX ; Start 03/30/19 at 02:00 Insulin Aspart (Novolog Insulin Pen) NOVOLOG *MILD* ALGORITHM WITH MEALS BEDTIME SC ; Start 03/29/19 at 18:00 Pantoprazole (Protonix Iv) 40 mg BID@06,18 IV Last administered on 03/31/19at 05:31; Admin Dose 40 MG; Start 03/29/19 at 18:00 Levetiracetam 100 ml @ 400 mls/hr Q12 IVPB Last administered on 03/31/19at 08:51; Admin Dose 400 MLS/HR; Start 03/29/19 at 21:00 Hydralazine HCl (Apresoline) 10 mg Q4H PRN IV sbp >160 Last administered on 03/30/19at 08:26; Admin Dose 10 MG; Start 03/29/19 at 14:00 Labetalol HCl (Labetalol) 10 mg Q4H PRN IV sbp>160 Last administered on 03/31/19at 05:39; Admin Dose 10 MG; Start 03/29/19 at 14:00 Miscellaneous Information 1 ea NOTE XX ; Start 03/29/19 at 14:30 Glucose (Glutose) 15 gm Q15M PRN PO DECREASED GLUCOSE; Start 03/29/19 at 14:30 Glucose (Glutose) 22.5 gm Q15M PRN PO DECREASED GLUCOSE; Start 03/29/19 at 14:30 Dextrose (D50w Syringe) 25 ml Q15M PRN IV DECREASED GLUCOSE; Start 03/29/19 at 14:30 Dextrose (D50w Syringe) 50 ml Q15M PRN IV DECREASED GLUCOSE; Start 03/29/19 at 14:30 Glucagon (Glucagen) 1 mg Q15M PRN IM DECREASED GLUCOSE; Start 03/29/19 at 14:30 Glucose (Glutose) 15 gm Q15M PRN BUCCAL DECREASED GLUCOSE; Start 03/29/19 at 14:30 Piperacillin Sod/ Tazobactam Sod 50 ml @ 100 mls/hr Q8 IVPB Last administered on 03/31/19at 05:31; Admin Dose 100 MLS/HR; Start 03/29/19 at 14:14 Norepinephrine 250 ml @ 1.875 mls/ hr TITRATE IV ; Start 03/29/19 at 15:30 Albumin Human 100 ml @ 100 mls/hr WITH DIALYSIS PRN IV SBP <90 DURING DIALYSIS; Start 03/29/19 at 17:00 Sodium Chloride (NS) -To prime the dialy... DIRECTED FOR HD PRN IV HD; Start 03/29/19 at 17:00 Albuterol/ Ipratropium (Duoneb) 3 ml Q2H RESP THERAPY PRN HHN WHEEZING AND RESP DISTRESS Last administered on 03/29/19at 18:01; Admin Dose 3 ML; Start 03/29/19 at 18:00 Lorazepam (Ativan) 0.5 mg Q4H PRN IV AGITATION Last administered on 03/31/19at 05:41; Admin Dose 0.5 MG; Start 03/29/19 at 18:00 IV Flush (NS 10 ml) 10 ml Q8 PRN IV IV PROTOCOL; Start 03/29/19 at 18:00 Labetalol HCl (Labetalol) 10 mg Q4H PRN IV sbp >160; Start 03/30/19 at 09:00 Haloperidol (Haldol) 5 mg Q6H PRN IM agitation Last administered on 03/31/19at 00:10; Admin Dose 5 MG; Start 03/30/19 at 10:00 Dextrose/Sodium Chloride 1,000 ml @ 50 mls/hr Q20H IV Last administered on 03/31/19at 08:51; Admin Dose 50 MLS/HR; Start 03/30/19 at 12:30 Heparin Sodium (Porcine) (Heparin (1000 Units/ml)) 3,200 unit AFTER DIALYSIS CATHETER Last administered on 03/30/19at 19:02; Admin Dose 3,200 UNIT; Start 03/30/19 at 17:00 Nicardipine HCl 50 mg/Sodium Chloride 500 ml @ 50 mls/hr TITRATE IV ; Start 03/31/19 at 10:00 VTE Prophylaxis Risk score (from Ns)>0 risk: 8 SCD applied (from [facility]): Yes Lines/Catheters IV Catheter Type: Winters in Place: No Assessment/Plan Hospital Course Subjective Patient still extremely agitated, not oriented, yesterday I spoke with daughter who explained the patient's current status actually near his baseline after he left [facility] approximately 1 week ago where he was admitted in the ICU for CVA. Objective Physical exam General: Patient is laying in bed and agitated mentation: Patient is alert but not oriented Head: Normocephalic atraumatic Eyes: EOMI, pupils reactive to light Neck: Supple, nontender, midline Respiratory: Clear to auscultation bilaterally Cardiovascular: Mildly tachycardic rate, no obvious murmurs Gastrointestinal: non-tender to palpation, bowel sounds heard. Neurological: Moves all extremities spontaneously Skin: No new skin lesions Assessment and plan Acute on chronic encephalopathy -After speaking with daughter, appears this is patient's baseline after leaving [facility] proximally 1 week ago. Patient suffered CVA and subsequent long stay in the ICU which required intubation and PEG tube. Patient almost required tracheostomy however appear to have been able to be weaned off the ventilator. -Neurology consulted, awaiting recommendations -As needed medications -We will need to get a compressive list of patient's medications from half-way as current fax over list is not legible, called back to patient's half-way to fax over list today Hypotension, resolved -Due to patient's cognitive status, patient was likely volume depleted at the half-way -Continue very light hydration until tube feeds are started -Monitor closely Hypertensive emergency -Cardene drip as needed -Patient does have a history of severe hypertension, will confirm with GI if we are able to use their new replacement PEG tube and if so we will start patient on some oral medications. Severe anemia -According to daughter, patient left [facility] 1 week ago with a hemoglobin approximately 7.0, will need to review documents that the family will bring in. -No apparent sources of GI bleed however continue PPI twice a day for now as patient does have a history of hematemesis in the past -Transfuse as needed -Gastroenterology on board Leukocytosis -Cultures done -No apparent source of infection for now however patient does have some fever -continue IV ABX Dysphasia -Baseline, patient has PEG tube, pulled out yesterday however GI was able to reinsert the PEG tube -Start tube feeds when able End-stage renal disease on hemodialysis -Nephrology has been consulted -Dialysis as needed Coronary artery disease status post CABG history -Resume home meds when able, through PEG tube, however will need more comprehensive list as faxed over med list is not legible. Epilepsy -Continue Keppra IV History of CVA with residual left-sided deficit and more recent CVA 1 month ago -Patient reportedly had a new stroke approximately 1 month ago at [facility] which is the cause of patient's current encephalopathic state -Continue home meds when able BPH -Continue home meds when able Disposition -Continue antibiotics for now, will need to be able to control patient's agitation, will use as needed medications for now, neurology recommendations appreciated -More than 40 minutes have been spent on this evaluation. STEWART WINTER Mar 31, 2019 09:21
[2019-03-31] MEDS ORDERED: ACETAMINOPHEN 1000MG/100ML IV 100 ML IVPB PRN (09:30)
[2019-03-31] MEDS: niCARdipine 50 MG in SOD CHLORIDE 0.9% 480 ML IV SCH ×2 (09:51→14:55)
--- NOTE | 2019-03-31 13:26 | PN ---
Date/Time of Note Date/Time of Note DATE: 03/31/19 TIME: 13:14 Assessment/Plan VTE Prophylaxis Risk score (from Ns)>0 risk: 8 SCD applied (from Ns): Yes Pharmacological prophylaxis: other (scds) Lines/Catheters Urinary Cath still in place: No Assessment/Plan Hospital Course Assessment: Severe anemia- improved -With initial microcytic indices- liver us- Liver is unremarkable. End-stage renal disease on hemodialysis Encephalopathy -2/2 multiple CVA's -Patient was recent at an outside hospital 2/2 to CVA- patient has been since Leukocytosis- on Zosyn Dysphagia with gastrostomy tube -Patient pulled gastrostomy tube out this a.m. -Replaced with 18 [place] gastrostomy tube Coronary artery disease status post CABG history Epilepsy BPH Plan: KUB - reviewed- "A new gastrostomy tube is evident with the tip in the stomach. No extravasation of contrast is noted." Ok to start TF- wll obtain dietary consult Monitor labs transfuse as indicated EGD/colonoscopy inpatient versus outpatient- currently no overt signs of GI bleed- Hgb currently stable PPI BID Patient seen in collaboration with Dr. Sanders Subjective: Course reviewed with nursing staff Patient interviewed and examined All labs, imaging and other results reviewed KUB reviewed- ok to start using G-tube Monitor closely. No over night events. Pt stable from yesterday. Monitor need for endoscopic evaluation. PHYSICAL EXAMINATION: GENERAL: Well developed, well nourished, confused, agitated SKIN: No lesions LYMPHATIC: No palpable lymphadenopathy. HEAD: Normocephalic, atraumatic, no tenderness. EYES: Pupils equal reactive to light, no discharge. EARS/NOSE AND THROAT: Ears normal, nose normal, oropharynx normal. NECK: Supple, no masses, thyroid normal CHEST: Inspection within normal limits. CARDIOVASCULAR: Heart: Regular rate and rhythm RESPIRATORY: Lungs clear to auscultation. GASTROINTESTINAL AND LIVER: Abdomen: Soft, non tenderness, non-distended, no hernias, no masses, no organomegaly, no ascites, no guarding, no rebound tenderness, normoactive bowel sounds. Rectal: Deferred. GENITOURINARY: [Male genitalia within normal limits. EXTREMITIES: No cyanosis, clubbing or edema. Result Diagram: 03/31/19 0430 03/31/19 0430 Results 24hrs Laboratory Tests Test 03/30/19 17:25 03/30/19 21:52 03/31/19 00:39 03/31/19 04:30 Bedside Glucose 98 76 82 White Blood Count 13.9 #H Red Blood Count 2.83 L Hemoglobin 8.7 L Hematocrit 27.1 L Mean Corpuscular 95.8 Volume Mean Corpuscular 30.7 Hemoglobin Mean Corpuscular 32.1 Hemoglobin Concent Red Cell 17.8 H Distribution Width Platelet Count 249 Mean Platelet Volume 10.2 Immature 0.400 Granulocytes % Neutrophils % 90.4 H Lymphocytes % 2.7 L Monocytes % 5.0 Eosinophils % 1.1 Basophils % 0.4 Nucleated Red Blood 0.0 Cells % Immature 0.060 H Granulocytes # Neutrophils # 12.6 H Lymphocytes # 0.4 L Monocytes # 0.7 Eosinophils # 0.2 Basophils # 0.1 Nucleated Red Blood 0.0 Cells # Prothrombin Time 14.9 Prothrombin Time 1.2 Ratio INR International 1.16 Normalized Ratio Sodium Level 140 Potassium Level 3.9 Chloride Level 103 Carbon Dioxide Level 26 Anion Gap 11 Blood Urea Nitrogen 21 #H Creatinine 4.54 #H Est Glomerular 13 L Filtrat Rate mL/min Glucose Level 96 Calcium Level 8.2 L Phosphorus Level 3.0 Magnesium Level 2.4 Test 03/31/19 05:01 03/31/19 08:28 03/31/19 12:08 Bedside Glucose 92 88 120 Exam/Review of Systems Exam Vitals Vital Signs Date Temp Pulse Resp B/P (MAP) Pulse Ox O2 O2 Flow FiO2 Time Delivery Rate 03/31/19 101 12:01 03/31/19 22 171/72 96 10:15 (105) 03/31/19 Mask 10:00 03/31/19 100.1 8.0 08:00 03/29/19 100 22:31 Intake and Output 03/30/19 03/30/19 03/31/19 1515:00 23:00 07:00 IntakeIntake Total 350 ml 400 ml OutputOutput Total 2600 ml 0 ml BalanceBalance -2250 ml 400 ml Results Results 24hrs Laboratory Tests Test 03/30/19 17:25 03/30/19 21:52 03/31/19 00:39 03/31/19 04:30 Bedside Glucose 98 76 82 White Blood Count 13.9 #H Red Blood Count 2.83 L Hemoglobin 8.7 L Hematocrit 27.1 L Mean Corpuscular 95.8 Volume Mean Corpuscular 30.7 Hemoglobin Mean Corpuscular 32.1 Hemoglobin Concent Red Cell 17.8 H Distribution Width Platelet Count 249 Mean Platelet Volume 10.2 Immature 0.400 Granulocytes % Neutrophils % 90.4 H Lymphocytes % 2.7 L Monocytes % 5.0 Eosinophils % 1.1 Basophils % 0.4 Nucleated Red Blood 0.0 Cells % Immature 0.060 H Granulocytes # Neutrophils # 12.6 H Lymphocytes # 0.4 L Monocytes # 0.7 Eosinophils # 0.2 Basophils # 0.1 Nucleated Red Blood 0.0 Cells # Prothrombin Time 14.9 Prothrombin Time 1.2 Ratio INR International 1.16 Normalized Ratio Sodium Level 140 Potassium Level 3.9 Chloride Level 103 Carbon Dioxide Level 26 Anion Gap 11 Blood Urea Nitrogen 21 #H Creatinine 4.54 #H Est Glomerular 13 L Filtrat Rate mL/min Glucose Level 96 Calcium Level 8.2 L Phosphorus Level 3.0 Magnesium Level 2.4 Test 03/31/19 05:01 03/31/19 08:28 03/31/19 12:08 Bedside Glucose 92 88 120 Medications Medication Current Medications IV Flush (NS 3 ml) 3 ml PER PROTOCOL IV ; Start 03/29/19 at 13:30 Ondansetron HCl (Zofran Inj) 4 mg Q6H PRN IV NAUSEA/VOMITING; Start 03/29/19 at 13:30 Acetaminophen (Tylenol Tab) 650 mg Q6H PRN PO .PAIN 1-3 OR TEMP Last administered on 03/31/19at 05:48; Admin Dose 650 MG; Start 03/29/19 at 13:30 Diagnostic Test (Pha) (Accu-Chek) 1 ea 02 XX ; Start 03/30/19 at 02:00 Insulin Aspart (Novolog Insulin Pen) NOVOLOG *MILD* ALGORITHM WITH MEALS BEDTIME SC ; Start 03/29/19 at 18:00 Pantoprazole (Protonix Iv) 40 mg BID@06,18 IV Last administered on 03/31/19at 05:31; Admin Dose 40 MG; Start 03/29/19 at 18:00 Levetiracetam 100 ml @ 400 mls/hr Q12 IVPB Last administered on 03/31/19at 08:51; Admin Dose 400 MLS/HR; Start 03/29/19 at 21:00 Hydralazine HCl (Apresoline) 10 mg Q4H PRN IV sbp >160 Last administered on 03/30/19at 08:26; Admin Dose 10 MG; Start 03/29/19 at 14:00 Labetalol HCl (Labetalol) 10 mg Q4H PRN IV sbp>160 Last administered on 03/31/19at 05:39; Admin Dose 10 MG; Start 03/29/19 at 14:00 Miscellaneous Information 1 ea NOTE XX ; Start 03/29/19 at 14:30 Glucose (Glutose) 15 gm Q15M PRN PO DECREASED GLUCOSE; Start 03/29/19 at 14:30 Glucose (Glutose) 22.5 gm Q15M PRN PO DECREASED GLUCOSE; Start 03/29/19 at 14:30 Dextrose (D50w Syringe) 25 ml Q15M PRN IV DECREASED GLUCOSE; Start 03/29/19 at 14:30 Dextrose (D50w Syringe) 50 ml Q15M PRN IV DECREASED GLUCOSE; Start 03/29/19 at 14:30 Glucagon (Glucagen) 1 mg Q15M PRN IM DECREASED GLUCOSE; Start 03/29/19 at 14:30 Glucose (Glutose) 15 gm Q15M PRN BUCCAL DECREASED GLUCOSE; Start 03/29/19 at 14:30 Piperacillin Sod/ Tazobactam Sod 50 ml @ 100 mls/hr Q8 IVPB Last administered on 03/31/19at 05:31; Admin Dose 100 MLS/HR; Start 03/29/19 at 14:14 Norepinephrine 250 ml @ 1.875 mls/ hr TITRATE IV ; Start 03/29/19 at 15:30 Albumin Human 100 ml @ 100 mls/hr WITH DIALYSIS PRN IV SBP <90 DURING DIALYSIS; Start 03/29/19 at 17:00 Sodium Chloride (NS) -To prime the dialy... DIRECTED FOR HD PRN IV HD; Start 03/29/19 at 17:00 Albuterol/ Ipratropium (Duoneb) 3 ml Q2H RESP THERAPY PRN HHN WHEEZING AND RESP DISTRESS Last administered on 03/29/19at 18:01; Admin Dose 3 ML; Start 03/29/19 at 18:00 Lorazepam (Ativan) 0.5 mg Q4H PRN IV AGITATION Last administered on 03/31/19at 05:41; Admin Dose 0.5 MG; Start 03/29/19 at 18:00 IV Flush (NS 10 ml) 10 ml Q8 PRN IV IV PROTOCOL; Start 03/29/19 at 18:00 Labetalol HCl (Labetalol) 10 mg Q4H PRN IV sbp >160; Start 03/30/19 at 09:00 Haloperidol (Haldol) 5 mg Q6H PRN IM agitation Last administered on 03/31/19at 00:10; Admin Dose 5 MG; Start 03/30/19 at 10:00 Dextrose/Sodium Chloride 1,000 ml @ 50 mls/hr Q20H IV Last administered on 03/31/19at 08:51; Admin Dose 50 MLS/HR; Start 03/30/19 at 12:30 Heparin Sodium (Porcine) (Heparin (1000 Units/ml)) 3,200 unit AFTER DIALYSIS CATHETER Last administered on 03/30/19at 19:02; Admin Dose 3,200 UNIT; Start 03/30/19 at 17:00 Nicardipine HCl 50 mg/Sodium Chloride 500 ml @ 50 mls/hr TITRATE IV Last administered on 03/31/19at 09:51; Admin Dose 50 MLS/HR; Start 03/31/19 at 10:00 Acetaminophen 100 ml @ 400 mls/hr Q6H PRN IVPB fever over 100.5F; Start 03/31/19 at 09:30; Stop 04/01/19 at 09:29 JUNE LEE Mar 31, 2019 13:24
[2019-03-31] MEDS: LOSARTAN 50 MG TAB NGT SCH (14:59)
[2019-03-31] MEDS: DOXAZOSIN 2 MG TAB NGT SCH (14:59)
--- NOTE | 2019-03-31 15:53 | CONS ---
Assessment/Plan Assessment/Plan Assessment/Plan (Daily) 1. Acute enceophalkoapthy, unclear etiology at this time 2. acute Uremia due to missed HD - now resolved 3. ESRD on HD - MWF schedule at [facility] HD center 4. H/o CAD s/p CABG before 5. H/o CAD with previous recent stent placement in 09/2018 6. h/o HTN 7. H/o DM II 8. h/o HL 9. 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 H/o BPH Plan: HD ordered for Monday, off Levophed for BP, now plan to transfer to [facility] today All cultures has been negative, plan is to d/c IV zosyn Losartan and Coreg for BP control, IV hydralazine IV keppra will continue pt on MWF schedule while being in hospital will follow up Consultation Date/Type/Reason Admit Date/Time Mar 29, 2019 at 13:16 Initial Consult Date 03/29/19 Type of Consult NEPHROLOGY Requesting Provider: STEWART WINTER Date/Time of Note DATE: 03/31/19 TIME: 15:53 24 HR Interval Summary Free Text/Dictation doing ok, BP stable, Exam/Review of Systems Exam Vitals Vital Signs Date Temp Pulse Resp B/P (MAP) Pulse Ox O2 O2 Flow FiO2 Time Delivery Rate 03/31/19 101 12:01 03/31/19 171/72 96 10:15 (105) 03/31/19 Mask 10:00 03/31/19 100.1 8.0 08:00 03/29/19 100 22:31 Intake and Output 03/30/19 03/30/19 03/31/19 1515:00 23:00 07:00 IntakeIntake Total 350 ml 400 ml OutputOutput Total 2600 ml 0 ml BalanceBalance -2250 ml 400 ml Results Result Diagram: 03/31/19 0430 03/31/19 0430 Results 24hrs Laboratory Tests Test 03/30/19 17:25 03/30/19 21:52 03/31/19 00:39 03/31/19 04:30 Bedside Glucose 98 76 82 White Blood Count 13.9 #H Red Blood Count 2.83 L Hemoglobin 8.7 L Hematocrit 27.1 L Mean Corpuscular 95.8 Volume Mean Corpuscular 30.7 Hemoglobin Mean Corpuscular 32.1 Hemoglobin Concent Red Cell 17.8 H Distribution Width Platelet Count 249 Mean Platelet Volume 10.2 Immature 0.400 Granulocytes % Neutrophils % 90.4 H Lymphocytes % 2.7 L Monocytes % 5.0 Eosinophils % 1.1 Basophils % 0.4 Nucleated Red Blood 0.0 Cells % Immature 0.060 H Granulocytes # Neutrophils # 12.6 H Lymphocytes # 0.4 L Monocytes # 0.7 Eosinophils # 0.2 Basophils # 0.1 Nucleated Red Blood 0.0 Cells # Prothrombin Time 14.9 Prothrombin Time 1.2 Ratio INR International 1.16 Normalized Ratio Sodium Level 140 Potassium Level 3.9 Chloride Level 103 Carbon Dioxide Level 26 Anion Gap 11 Blood Urea Nitrogen 21 #H Creatinine 4.54 #H Est Glomerular 13 L Filtrat Rate mL/min Glucose Level 96 Calcium Level 8.2 L Phosphorus Level 3.0 Magnesium Level 2.4 Test 03/31/19 05:01 03/31/19 08:28 03/31/19 12:08 Bedside Glucose 92 88 120 Medications Medication Current Medications IV Flush (NS 3 ml) 3 ml PER PROTOCOL IV ; Start 03/29/19 at 13:30 Ondansetron HCl (Zofran Inj) 4 mg Q6H PRN IV NAUSEA/VOMITING; Start 03/29/19 at 13:30 Acetaminophen (Tylenol Tab) 650 mg Q6H PRN PO .PAIN 1-3 OR TEMP Last administered on 03/31/19at 05:48; Admin Dose 650 MG; Start 03/29/19 at 13:30 Diagnostic Test (Pha) (Accu-Chek) 1 ea 02 XX ; Start 03/30/19 at 02:00 Insulin Aspart (Novolog Insulin Pen) NOVOLOG *MILD* ALGORITHM WITH MEALS BEDTIME SC ; Start 03/29/19 at 18:00 Pantoprazole (Protonix Iv) 40 mg BID@06,18 IV Last administered on 03/31/19at 05:31; Admin Dose 40 MG; Start 03/29/19 at 18:00 Levetiracetam 100 ml @ 400 mls/hr Q12 IVPB Last administered on 03/31/19at 08:51; Admin Dose 400 MLS/HR; Start 03/29/19 at 21:00 Hydralazine HCl (Apresoline) 10 mg Q4H PRN IV sbp >160 Last administered on 03/30/19at 08:26; Admin Dose 10 MG; Start 03/29/19 at 14:00 Miscellaneous Information 1 ea NOTE XX ; Start 03/29/19 at 14:30 Glucose (Glutose) 15 gm Q15M PRN PO DECREASED GLUCOSE; Start 03/29/19 at 14:30 Glucose (Glutose) 22.5 gm Q15M PRN PO DECREASED GLUCOSE; Start 03/29/19 at 14:30 Dextrose (D50w Syringe) 25 ml Q15M PRN IV DECREASED GLUCOSE; Start 03/29/19 at 14:30 Dextrose (D50w Syringe) 50 ml Q15M PRN IV DECREASED GLUCOSE; Start 03/29/19 at 14:30 Glucagon (Glucagen) 1 mg Q15M PRN IM DECREASED GLUCOSE; Start 03/29/19 at 14:30 Glucose (Glutose) 15 gm Q15M PRN BUCCAL DECREASED GLUCOSE; Start 03/29/19 at 14:30 Piperacillin Sod/ Tazobactam Sod 50 ml @ 100 mls/hr Q8 IVPB Last administered on 03/31/19at 13:41; Admin Dose 100 MLS/HR; Start 03/29/19 at 14:14 Norepinephrine 250 ml @ 1.875 mls/ hr TITRATE IV ; Start 03/29/19 at 15:30 Albumin Human 100 ml @ 100 mls/hr WITH DIALYSIS PRN IV SBP <90 DURING DIALYSIS; Start 03/29/19 at 17:00 Sodium Chloride (NS) -To prime the dialy... DIRECTED FOR HD PRN IV HD; Start 03/29/19 at 17:00 Albuterol/ Ipratropium (Duoneb) 3 ml Q2H RESP THERAPY PRN HHN WHEEZING AND RESP DISTRESS Last administered on 03/29/19at 18:01; Admin Dose 3 ML; Start 03/29/19 at 18:00 Lorazepam (Ativan) 0.5 mg Q4H PRN IV AGITATION Last administered on 03/31/19at 05:41; Admin Dose 0.5 MG; Start 03/29/19 at 18:00 IV Flush (NS 10 ml) 10 ml Q8 PRN IV IV PROTOCOL; Start 03/29/19 at 18:00 Labetalol HCl (Labetalol) 10 mg Q4H PRN IV sbp >160; Start 03/30/19 at 09:00 Haloperidol (Haldol) 5 mg Q6H PRN IM agitation Last administered on 03/31/19at 00:10; Admin Dose 5 MG; Start 03/30/19 at 10:00 Dextrose/Sodium Chloride 1,000 ml @ 50 mls/hr Q20H IV Last administered on 03/31/19at 08:51; Admin Dose 50 MLS/HR; Start 03/30/19 at 12:30 Heparin Sodium (Porcine) (Heparin (1000 Units/ml)) 3,200 unit AFTER DIALYSIS CATHETER Last administered on 03/30/19at 19:02; Admin Dose 3,200 UNIT; Start 03/30/19 at 17:00 Nicardipine HCl 50 mg/Sodium Chloride 500 ml @ 50 mls/hr TITRATE IV Last administered on 03/31/19at 14:55; Admin Dose 150 MLS/HR; Start 03/31/19 at 10:00 Acetaminophen 100 ml @ 400 mls/hr Q6H PRN IVPB fever over 100.5F; Start 03/31/19 at 09:30; Stop 04/01/19 at 09:29 Atorvastatin Calcium (Lipitor) 40 mg HS NGT ; Start 03/31/19 at 21:00 Baclofen (Lioresal) 10 mg BID GTB ; Start 03/31/19 at 21:00 Doxazosin Mesylate (Cardura) 2 mg DAILY NGT Last administered on 03/31/19at 14:59; Admin Dose 2 MG; Start 03/31/19 at 14:30 Gabapentin (Neurontin) 100 mg QHS PO ; Start 03/31/19 at 21:00 Carvedilol (Coreg) 12.5 mg BID NGT ; Start 03/31/19 at 21:00 Hydralazine HCl (Apresoline) 50 mg TID NGT Last administered on 03/31/19at 14:58; Admin Dose 50 MG; Start 03/31/19 at 14:30 Losartan Potassium (Cozaar) 100 mg DAILY NGT Last administered on 03/31/19at 14:59; Admin Dose 100 MG; Start 03/31/19 at 14:30 Quetiapine Fumarate (Seroquel) 25 mg QHS NGT ; Start 03/31/19 at 21:00 Sertraline HCl (Zoloft) 25 mg HS NGT ; Start 03/31/19 at 21:00 Acetaminophen (Tylenol Liquid) 650 mg Q4H PRN PEG MILD PAIN(1-3)OR ELEVATED TEMP; Start 03/31/19 at 16:00 BETZAIDA YAÑEZ MD Mar 31, 2019 15:53
[2019-03-31] MEDS ORDERED: FUROSEMIDE 40 MG INJ IV ONE (16:00)
[2019-03-31] MEDS: ACETAMINOPHEN 650MG/20.3ML CUP PEG PRN (16:31)
[2019-03-31] MEDS: QUETIAPINE 25 MG TAB NGT SCH (20:41)
[2019-03-31] MEDS: ATORVASTATIN 40 MG TAB NGT SCH (20:41)
[2019-03-31] MEDS: BACLOFEN 10 MG TAB GTB SCH (20:42)
[2019-03-31] MEDS: GABAPENTIN 100 MG CAP PO SCH (20:42)
[2019-03-31] MEDS: SERTRALINE 50 MG TAB NGT SCH (20:42)
[2019-04-01] VITALS (39 sets, daily range): BP systolic 123–169; BP diastolic 58–96; PULSE 69–95; RESP 14–22
[2019-04-01] MEDS: DEXTROSE 5%-0.45% NACL 1,000 ML IV SCH (01:11)
[2019-04-01] MEDS: ACCU-CHEK XX SCH (01:11)
[2019-04-01] MEDS: PANTOPRAZOLE 40 MG INJ IV SCH ×2 (05:52→17:46)
[2019-04-01] MEDS: PIPER-TAZO 2.25 GM/NS 50 ML IVPB SCH ×3 (05:53→22:26)
[2019-04-01] MEDS: INSULIN ASPART [NOVOLOG] 3 ML PEN SC SCH ×4 (06:38→20:17)
[2019-04-01] MEDS: LEVETIRACETAM 500 MG (PMX) 100 ML IVPB SCH ×2 (08:01→20:48)
[2019-04-01] MEDS: BACLOFEN 10 MG TAB GTB SCH ×2 (10:05→20:15)
[2019-04-01] MEDS: DOXAZOSIN 2 MG TAB NGT SCH (10:06)
[2019-04-01] MEDS: LOSARTAN 50 MG TAB NGT SCH (10:07)
--- NOTE | 2019-04-01 11:11 | PN ---
Date/Time of Note Date/Time of Note DATE: 04/01/19 TIME: 11:11 Assessment/Plan VTE Prophylaxis Risk score (from Ns)>0 risk: 7 SCD applied (from Ns): Yes Pharmacological prophylaxis: NA/contraindicated Pharm contraindication: anticoag not tolerated Lines/Catheters IV Catheter Type (from Nrsg): perm a cath Urinary Cath still in place: No Assessment/Plan Assessment/Plan 1. Acute on chronic encephalopathy - Patient appears at baseline. most likely secondary to delirium given recent CVA with prolonged hospitalization and SNF placement - Neurology on board and appreciate recommendations. CT unrevealing - blood cultures negative and UA negative so no toxic source noted 2. Hypertensive emergency - resolving - home BP medications started and will adjust for better control - weaned off Cardene drip 3. Severe anemia - Remains stable - no active bleeding noted. FOBT ordered - According to daughter, patient left [facility] 1 week ago with a hemoglobin approximately 7.0, will need to review documents that the family will bring in. - No apparent sources of GI bleed however continue PPI twice a day for now as patient does have a history of hematemesis in the past 4. Leukocytosis- improving - Cultures done - No apparent source of infection for now however patient does have some fever - continue IV ABX 5. Dysphasia - PEG in place and started on tube feeds 6. End-stage renal disease on hemodialysis - Nephrology on board and appreciate consultation. Continue HD 7. Coronary artery disease status post CABG history - continue home medications - will need to hold aspirin and plavix in setting of acute GI bleed 8. Epilepsy - Continue Keppra IV 9. History of CVA with residual left-sided deficit and more recent CVA 1 month ago - Patient reportedly had a new stroke approximately 1 month ago at [facility] which is the cause of patient's current encephalopathic state - After speaking with daughter, appears this is patient's baseline after leaving [facility] proximally 1 week ago. Patient suffered CVA and subsequent long stay in the ICU which required intubation and PEG tube. Patient almost required tracheostomy however appear to have been able to be weaned off the ventilator. - Neurology consultation appreciated 10. BPH 11. Disposition - Will downgrade to telemetry. Once BP remains stable, will d/c to SNF >30 minutes of critical care time spent with patient Result Diagram: 04/01/19 0500 04/01/19 0500 Results 24hrs Laboratory Tests Test 03/31/19 12:08 03/31/19 17:20 03/31/19 20:54 04/01/19 01:10 Bedside Glucose 120 150 129 157 Test 04/01/19 05:00 04/01/19 06:30 White Blood Count 11.1 #H Red Blood Count 2.85 L Hemoglobin 8.6 L Hematocrit 27.6 L Mean Corpuscular 96.8 Volume Mean Corpuscular 30.2 Hemoglobin Mean Corpuscular 31.2 L Hemoglobin Concent Red Cell 17.4 H Distribution Width Platelet Count 232 Mean Platelet Volume 10.7 H Immature 0.500 H Granulocytes % Neutrophils % 80.2 H Lymphocytes % 8.0 L Monocytes % 5.0 Eosinophils % 5.8 Basophils % 0.5 Nucleated Red Blood 0.0 Cells % Immature 0.060 H Granulocytes # Neutrophils # 8.9 H Lymphocytes # 0.9 Monocytes # 0.6 Eosinophils # 0.6 H Basophils # 0.1 Nucleated Red Blood 0.0 Cells # Sodium Level 138 Potassium Level 3.9 Chloride Level 105 Carbon Dioxide Level 25 Anion Gap 8 Blood Urea Nitrogen 29 H Creatinine 6.24 H Est Glomerular 9 L Filtrat Rate mL/min Glucose Level 160 Calcium Level 8.3 L Phosphorus Level 3.9 Magnesium Level 2.5 Bedside Glucose 193 Subjective 24 Hr Interval Summary Free Text/Dictation Patient remains calm and in no acute distress. BP has been stable off Cardene for 24 hours. Exam/Review of Systems Exam Vitals Vital Signs Date Temp Pulse Resp B/P (MAP) Pulse Ox O2 O2 Flow FiO2 Time Delivery Rate 04/01/19 84 16 154/76 100 Venturi 10.0 08:11 (102) Mask 04/01/19 98.6 04:00 03/29/19 100 22:31 Intake and Output 03/31/19 03/31/19 04/01/19 1515:00 23:00 07:00 IntakeIntake Total 1305 ml 1035 ml 610 ml OutputOutput Total 0 ml 0 ml 0 ml BalanceBalance 1305 ml 1035 ml 610 ml Exam General: no acute distress. mentation: Patient is alert but not oriented Neck: Supple, nontender, midline Respiratory: Clear to auscultation bilaterally. no wheezing or rhonchi Cardiovascular: S1, S2, regular rate and rhythm. No obvious murmurs Gastrointestinal: soft, non-tender to palpation, nondistended, bowel sounds heard. Neurological: Moves all extremities spontaneously Skin: No new skin lesions Results Results 24hrs Laboratory Tests Test 03/31/19 12:08 03/31/19 17:20 03/31/19 20:54 04/01/19 01:10 Bedside Glucose 120 150 129 157 Test 04/01/19 05:00 04/01/19 06:30 White Blood Count 11.1 #H Red Blood Count 2.85 L Hemoglobin 8.6 L Hematocrit 27.6 L Mean Corpuscular 96.8 Volume Mean Corpuscular 30.2 Hemoglobin Mean Corpuscular 31.2 L Hemoglobin Concent Red Cell 17.4 H Distribution Width Platelet Count 232 Mean Platelet Volume 10.7 H Immature 0.500 H Granulocytes % Neutrophils % 80.2 H Lymphocytes % 8.0 L Monocytes % 5.0 Eosinophils % 5.8 Basophils % 0.5 Nucleated Red Blood 0.0 Cells % Immature 0.060 H Granulocytes # Neutrophils # 8.9 H Lymphocytes # 0.9 Monocytes # 0.6 Eosinophils # 0.6 H Basophils # 0.1 Nucleated Red Blood 0.0 Cells # Sodium Level 138 Potassium Level 3.9 Chloride Level 105 Carbon Dioxide Level 25 Anion Gap 8 Blood Urea Nitrogen 29 H Creatinine 6.24 H Est Glomerular 9 L Filtrat Rate mL/min Glucose Level 160 Calcium Level 8.3 L Phosphorus Level 3.9 Magnesium Level 2.5 Bedside Glucose 193 Medications Medication Current Medications IV Flush (NS 3 ml) 3 ml PER PROTOCOL IV ; Start 03/29/19 at 13:30 Ondansetron HCl (Zofran Inj) 4 mg Q6H PRN IV NAUSEA/VOMITING; Start 03/29/19 at 13:30 Acetaminophen (Tylenol Tab) 650 mg Q6H PRN PO .PAIN 1-3 OR TEMP Last administered on 03/31/19at 05:48; Admin Dose 650 MG; Start 03/29/19 at 13:30 Diagnostic Test (Pha) (Accu-Chek) 1 ea 02 XX Last administered on 04/01/19at 01:11; Admin Dose 1 EA; Start 03/30/19 at 02:00 Insulin Aspart (Novolog Insulin Pen) NOVOLOG *MILD* ALGORITHM WITH MEALS BEDTIME SC Last administered on 04/01/19at 06:38; Admin Dose 2 UNIT; Start 03/29/19 at 18:00 Pantoprazole (Protonix Iv) 40 mg BID@06,18 IV Last administered on 04/01/19at 05:52; Admin Dose 40 MG; Start 03/29/19 at 18:00 Levetiracetam 100 ml @ 400 mls/hr Q12 IVPB Last administered on 04/01/19at 08:01; Admin Dose 400 MLS/HR; Start 03/29/19 at 21:00 Hydralazine HCl (Apresoline) 10 mg Q4H PRN IV sbp >160 Last administered on 03/30/19at 08:26; Admin Dose 10 MG; Start 03/29/19 at 14:00 Miscellaneous Information 1 ea NOTE XX ; Start 03/29/19 at 14:30 Glucose (Glutose) 15 gm Q15M PRN PO DECREASED GLUCOSE; Start 03/29/19 at 14:30 Glucose (Glutose) 22.5 gm Q15M PRN PO DECREASED GLUCOSE; Start 03/29/19 at 14:30 Dextrose (D50w Syringe) 25 ml Q15M PRN IV DECREASED GLUCOSE; Start 03/29/19 at 14:30 Dextrose (D50w Syringe) 50 ml Q15M PRN IV DECREASED GLUCOSE; Start 03/29/19 at 14:30 Glucagon (Glucagen) 1 mg Q15M PRN IM DECREASED GLUCOSE; Start 03/29/19 at 14:30 Glucose (Glutose) 15 gm Q15M PRN BUCCAL DECREASED GLUCOSE; Start 03/29/19 at 14:30 Piperacillin Sod/ Tazobactam Sod 50 ml @ 100 mls/hr Q8 IVPB Last administered on 04/01/19at 05:53; Admin Dose 100 MLS/HR; Start 03/29/19 at 14:14 Norepinephrine 250 ml @ 1.875 mls/ hr TITRATE IV ; Start 03/29/19 at 15:30 Albumin Human 100 ml @ 100 mls/hr WITH DIALYSIS PRN IV SBP <90 DURING DIALYSIS; Start 03/29/19 at 17:00 Sodium Chloride (NS) -To prime the dialy... DIRECTED FOR HD PRN IV HD; Start 03/29/19 at 17:00 Albuterol/ Ipratropium (Duoneb) 3 ml Q2H RESP THERAPY PRN HHN WHEEZING AND RESP DISTRESS Last administered on 03/29/19 18:01; Admin Dose 3 ML; Start 03/29/19 at 18:00 Lorazepam (Ativan) 0.5 mg Q4H PRN IV AGITATION Last administered on 03/31/19 05:41; Admin Dose 0.5 MG; Start 03/29/19 at 18:00 IV Flush (NS 10 ml) 10 ml Q8 PRN IV IV PROTOCOL; Start 03/29/19 at 18:00 Labetalol HCl (Labetalol) 10 mg Q4H PRN IV sbp >160; Start 03/30/19 at 09:00 Haloperidol (Haldol) 5 mg Q6H PRN IM agitation Last administered on 03/31/19 00:10; Admin Dose 5 MG; Start 03/30/19 at 10:00 Dextrose/Sodium Chloride 1,000 ml @ 50 mls/hr Q20H IV Last administered on 04/01/19 01:11; Admin Dose 50 MLS/HR; Start 03/30/19 at 12:30 Heparin Sodium (Porcine) (Heparin (1000 Units/ml)) 3,200 unit AFTER DIALYSIS CATHETER Last administered on 03/30/19 19:02; Admin Dose 3,200 UNIT; Start 03/30/19 at 17:00 Nicardipine HCl 50 mg/Sodium Chloride 500 ml @ 50 mls/hr TITRATE IV Last administered on 03/31/19 14:55; Admin Dose 150 MLS/HR; Start 03/31/19 at 10:00 Atorvastatin Calcium (Lipitor) 40 mg HS NGT Last administered on 03/31/19 20:41; Admin Dose 40 MG; Start 03/31/19 at 21:00 Baclofen (Lioresal) 10 mg BID GTB Last administered on 04/01/19 10:05; Admin Dose 10 MG; Start 03/31/19 at 21:00 Doxazosin Mesylate (Cardura) 2 mg DAILY NGT Last administered on 04/01/19 10:06; Admin Dose 2 MG; Start 03/31/19 at 14:30 Gabapentin (Neurontin) 100 mg QHS PO Last administered on 03/31/19 20:42; Admin Dose 100 MG; Start 6/23/19 at 21:00 Carvedilol (Coreg) 12.5 mg BID NGT Last administered on 04/01/19 10:06; Admin Dose 12.5 MG; Start 03/31/19 at 21:00 Hydralazine HCl (Apresoline) 50 mg TID NGT Last administered on 04/01/19 10:06; Admin Dose 50 MG; Start 03/31/19 at 14:30 Losartan Potassium (Cozaar) 100 mg DAILY NGT Last administered on 04/01/19 10:07; Admin Dose 100 MG; Start 03/31/19 at 14:30 Quetiapine Fumarate (Seroquel) 25 mg QHS NGT Last administered on 03/31/19 20:41; Admin Dose 25 MG; Start 03/31/19 at 21:00 Sertraline HCl (Zoloft) 25 mg HS NGT Last administered on 03/31/19 20:42; Admin Dose 25 MG; Start 03/31/19 at 21:00 Acetaminophen (Tylenol Liquid) 650 mg Q4H PRN PEG MILD PAIN(1-3)OR ELEVATED TEMP Last administered on 03/31/19 16:31; Admin Dose 650 MG; Start 03/31/19 at 16:00 LILLIAN ZHANG MD Apr 01, 2019 11:11
[2019-04-01] MEDS: HEPARIN 1000 UNITS/ML 10 ML INJ CATHETER SCH (11:24)
--- NOTE | 2019-04-01 16:44 | PN ---
Date/Time of Note Date/Time of Note DATE: 04/01/19 TIME: 16:42 Assessment/Plan VTE Prophylaxis Risk score (from Ns)>0 risk: 8 SCD applied (from Ns): Yes Pharmacological prophylaxis: other Lines/Catheters IV Catheter Type (from Nrs): PERMACATH Urinary Cath still in place: No Assessment/Plan Hospital Course Assessment: Severe anemia- improved -With initial microcytic indices- liver us- Liver is unremarkable. End-stage renal disease on hemodialysis Encephalopathy -2/2 multiple CVA's -Patient was recent at an outside hospital 2/2 to CVA- patient has been since Leukocytosis- on Zosyn Dysphagia with gastrostomy tube -Patient pulled gastrostomy tube out this a.m. -Replaced with 18 Japanese gastrostomy tube Coronary artery disease status post CABG history Epilepsy BPH Plan: TF to gaol as tolerated Monitor labs transfuse as indicated EGD/colonoscopy inpatient versus outpatient Family requesting for endoscopic evaluation in-pt will reassess in am Continue PPI BID for now Patient seen in collaboration with Dr. Sanders Subjective: Course reviewed with nursing staff Patient interviewed and examined All labs, imaging and other results reviewed Pt less combative today, family at bedside no overt signs of GI bleed, HGB is stable PHYSICAL EXAMINATION: GENERAL: Well developed, well nourished, confused SKIN: No lesions, g-tube in place NECK: Supple, no masses, thyroid normal CHEST: Inspection within normal limits. CARDIOVASCULAR: Heart: Regular rate and rhythm RESPIRATORY: Lungs clear to auscultation. GASTROINTESTINAL AND LIVER: Abdomen: Soft, non tenderness, non-distended, no hernias, no masses, no organomegaly, no ascites, no guarding, no rebound tenderness, normoactive bowel sounds. Rectal: Deferred. GENITOURINARY: [Male genitalia within normal limits. EXTREMITIES: No cyanosis, clubbing or edema. Result Diagram: 04/01/19 0500 04/01/19 0500 Results 24hrs Laboratory Tests Test 03/31/19 17:20 03/31/19 20:54 04/01/19 01:10 04/01/19 05:00 Bedside Glucose 150 129 157 White Blood Count 11.1 #H Red Blood Count 2.85 L Hemoglobin 8.6 L Hematocrit 27.6 L Mean Corpuscular 96.8 Volume Mean Corpuscular 30.2 Hemoglobin Mean Corpuscular 31.2 L Hemoglobin Concent Red Cell 17.4 H Distribution Width Platelet Count 232 Mean Platelet Volume 10.7 H Immature 0.500 H Granulocytes % Neutrophils % 80.2 H Lymphocytes % 8.0 L Monocytes % 5.0 Eosinophils % 5.8 Basophils % 0.5 Nucleated Red Blood 0.0 Cells % Immature 0.060 H Granulocytes # Neutrophils # 8.9 H Lymphocytes # 0.9 Monocytes # 0.6 Eosinophils # 0.6 H Basophils # 0.1 Nucleated Red Blood 0.0 Cells # Sodium Level 138 Potassium Level 3.9 Chloride Level 105 Carbon Dioxide Level 25 Anion Gap 8 Blood Urea Nitrogen 29 H Creatinine 6.24 H Est Glomerular 9 L Filtrat Rate mL/min Glucose Level 160 Calcium Level 8.3 L Phosphorus Level 3.9 Magnesium Level 2.5 Test 04/01/19 06:30 04/01/19 11:25 Bedside Glucose 193 128 Exam/Review of Systems Exam Vitals Vital Signs Date Temp Pulse Resp B/P (MAP) Pulse Ox O2 O2 Flow FiO2 Time Delivery Rate 04/01/19 98.0 85 22 146/69 96 Nasal 3.0 16:15 (94) Cannula 03/29/19 100 22:31 Intake and Output 03/31/19 03/31/19 04/01/19 1515:00 23:00 07:00 IntakeIntake Total 1305 ml 1035 ml 690 ml OutputOutput Total 0 ml 0 ml 0 ml BalanceBalance 1305 ml 1035 ml 690 ml Results Results 24hrs Laboratory Tests Test 03/31/19 17:20 03/31/19 20:54 04/01/19 01:10 04/01/19 05:00 Bedside Glucose 150 129 157 White Blood Count 11.1 #H Red Blood Count 2.85 L Hemoglobin 8.6 L Hematocrit 27.6 L Mean Corpuscular 96.8 Volume Mean Corpuscular 30.2 Hemoglobin Mean Corpuscular 31.2 L Hemoglobin Concent Red Cell 17.4 H Distribution Width Platelet Count 232 Mean Platelet Volume 10.7 H Immature 0.500 H Granulocytes % Neutrophils % 80.2 H Lymphocytes % 8.0 L Monocytes % 5.0 Eosinophils % 5.8 Basophils % 0.5 Nucleated Red Blood 0.0 Cells % Immature 0.060 H Granulocytes # Neutrophils # 8.9 H Lymphocytes # 0.9 Monocytes # 0.6 Eosinophils # 0.6 H Basophils # 0.1 Nucleated Red Blood 0.0 Cells # Sodium Level 138 Potassium Level 3.9 Chloride Level 105 Carbon Dioxide Level 25 Anion Gap 8 Blood Urea Nitrogen 29 H Creatinine 6.24 H Est Glomerular 9 L Filtrat Rate mL/min Glucose Level 160 Calcium Level 8.3 L Phosphorus Level 3.9 Magnesium Level 2.5 Test 04/01/19 06:30 04/01/19 11:25 Bedside Glucose 193 128 Medications Medication Current Medications IV Flush (NS 3 ml) 3 ml PER PROTOCOL IV ; Start 03/29/19 at 13:30 Ondansetron HCl (Zofran Inj) 4 mg Q6H PRN IV NAUSEA/VOMITING; Start 03/29/19 at 13:30 Acetaminophen (Tylenol Tab) 650 mg Q6H PRN PO .PAIN 1-3 OR TEMP Last administered on 03/31/19at 05:48; Admin Dose 650 MG; Start 03/29/19 at 13:30 Insulin Aspart (Novolog Insulin Pen) NOVOLOG *MILD* ALGORITHM WITH MEALS BEDTIME SC Last administered on 04/01/19at 06:38; Admin Dose 2 UNIT; Start 03/29/19 at 18:00 Pantoprazole (Protonix Iv) 40 mg BID@06,18 IV Last administered on 04/01/19at 05:52; Admin Dose 40 MG; Start 03/29/19 at 18:00 Levetiracetam 100 ml @ 400 mls/hr Q12 IVPB Last administered on 04/01/19at 08:01; Admin Dose 400 MLS/HR; Start 03/29/19 at 21:00 Hydralazine HCl (Apresoline) 10 mg Q4H PRN IV sbp >160 Last administered on 03/30/19at 08:26; Admin Dose 10 MG; Start 03/29/19 at 14:00 Miscellaneous Information 1 ea NOTE XX ; Start 03/29/19 at 14:30 Glucose (Glutose) 15 gm Q15M PRN PO DECREASED GLUCOSE; Start 03/29/19 at 14:30 Glucose (Glutose) 22.5 gm Q15M PRN PO DECREASED GLUCOSE; Start 03/29/19 at 14:30 Dextrose (D50w Syringe) 25 ml Q15M PRN IV DECREASED GLUCOSE; Start 03/29/19 at 14:30 Dextrose (D50w Syringe) 50 ml Q15M PRN IV DECREASED GLUCOSE; Start 03/29/19 at 14:30 Glucagon (Glucagen) 1 mg Q15M PRN IM DECREASED GLUCOSE; Start 03/29/19 at 14:30 Glucose (Glutose) 15 gm Q15M PRN BUCCAL DECREASED GLUCOSE; Start 03/29/19 at 14:30 Piperacillin Sod/ Tazobactam Sod 50 ml @ 100 mls/hr Q8 IVPB Last administered on 04/01/19at 13:57; Admin Dose 100 MLS/HR; Start 03/29/19 at 14:14 Albumin Human 100 ml @ 100 mls/hr WITH DIALYSIS PRN IV SBP <90 DURING DIALYSIS; Start 03/29/19 at 17:00 Sodium Chloride (NS) -To prime the dialy... DIRECTED FOR HD PRN IV HD; Start 03/29/19 at 17:00 Albuterol/ Ipratropium (Duoneb) 3 ml Q2H RESP THERAPY PRN HHN WHEEZING AND RESP DISTRESS Last administered on 03/29/19at 18:01; Admin Dose 3 ML; Start 03/29/19 at 18:00 Lorazepam (Ativan) 0.5 mg Q4H PRN IV AGITATION Last administered on 03/31/19at 05:41; Admin Dose 0.5 MG; Start 03/29/19 at 18:00 IV Flush (NS 10 ml) 10 ml Q8 PRN IV IV PROTOCOL; Start 03/29/19 at 18:00 Labetalol HCl (Labetalol) 10 mg Q4H PRN IV sbp >160; Start 03/30/19 at 09:00 Haloperidol (Haldol) 5 mg Q6H PRN IM agitation Last administered on 03/31/19at 00:10; Admin Dose 5 MG; Start 03/30/19 at 10:00 Heparin Sodium (Porcine) (Heparin (1000 Units/ml)) 3,200 unit AFTER DIALYSIS CATHETER Last administered on 04/01/19at 11:24; Admin Dose 3,200 UNIT; Start 03/30/19 at 17:00 Atorvastatin Calcium (Lipitor) 40 mg HS NGT Last administered on 03/31/19at 20:41; Admin Dose 40 MG; Start 03/31/19 at 21:00 Baclofen (Lioresal) 10 mg BID GTB Last administered on 04/01/19 10:05; Admin Dose 10 MG; Start 03/31/19 at 21:00 Doxazosin Mesylate (Cardura) 2 mg DAILY NGT Last administered on 04/01/19 10:06; Admin Dose 2 MG; Start 03/31/19 at 14:30 Gabapentin (Neurontin) 100 mg QHS PO Last administered on 03/31/19 20:42; Admin Dose 100 MG; Start 03/31/19 at 21:00 Carvedilol (Coreg) 12.5 mg BID NGT Last administered on 04/01/19 10:06; Admin Dose 12.5 MG; Start 03/31/19 at 21:00 Hydralazine HCl (Apresoline) 50 mg TID NGT Last administered on 04/01/19 13:57; Admin Dose 50 MG; Start 03/31/19 at 14:30 Losartan Potassium (Cozaar) 100 mg DAILY NGT Last administered on 04/01/19 10:07; Admin Dose 100 MG; Start 03/31/19 at 14:30 Quetiapine Fumarate (Seroquel) 25 mg QHS NGT Last administered on 03/31/19 20:41; Admin Dose 25 MG; Start 03/31/19 at 21:00 Sertraline HCl (Zoloft) 25 mg HS NGT Last administered on 03/31/19 20:42; Admin Dose 25 MG; Start 03/31/19 at 21:00 Acetaminophen (Tylenol Liquid) 650 mg Q4H PRN PEG MILD PAIN(1-3)OR ELEVATED TEMP Last administered on 03/31/19 16:31; Admin Dose 650 MG; Start 03/31/19 at 16:00 JUNE LEE Apr 01, 2019 16:44
[2019-04-01] MEDS: SERTRALINE 50 MG TAB NGT SCH (20:15)
[2019-04-01] MEDS: QUETIAPINE 25 MG TAB NGT SCH (20:15)
[2019-04-01] MEDS: GABAPENTIN 100 MG CAP PO SCH (20:16)
[2019-04-01] MEDS: ATORVASTATIN 40 MG TAB NGT SCH (20:16)
[2019-04-01] MEDS: ALBUTEROL/IPRATROPIUM (NEB) 3 ML AMP HHN PRN (21:23)
[2019-04-02] VITALS (15 sets, daily range): BP systolic 117–191; BP diastolic 57–85; PULSE 67–98; RESP 18–23
[2019-04-02] MEDS: LORAZEPAM 2 MG INJ IV PRN (03:55)
[2019-04-02] MEDS: PANTOPRAZOLE 40 MG INJ IV SCH ×2 (05:59→17:58)
[2019-04-02] MEDS: PIPER-TAZO 2.25 GM/NS 50 ML IVPB SCH (05:59)
[2019-04-02] MEDS: INSULIN ASPART [NOVOLOG] 3 ML PEN SC SCH ×4 (08:00→23:51)
[2019-04-02] MEDS ORDERED: POTASSIUM CHLORIDE 20 MEQ POWDER FOR ORAL SOLN GTB ONE (08:30)
[2019-04-02] MEDS: LOSARTAN 50 MG TAB NGT SCH (09:21)
[2019-04-02] MEDS: DOXAZOSIN 2 MG TAB NGT SCH (09:22)
[2019-04-02] MEDS: BACLOFEN 10 MG TAB GTB SCH ×2 (09:22→20:56)
--- NOTE | 2019-04-02 10:08 | PN ---
Date/Time of Note Date/Time of Note DATE: 04/02/19 TIME: 10:07 Assessment/Plan VTE Prophylaxis Risk score (from Ns)>0 risk: 4 SCD applied (from Ns): Yes Pharmacological prophylaxis: other (scds) Lines/Catheters IV [facility]from [facility] permacath Urinary Cath still in place: No Assessment/Plan Hospital Course Assessment: Severe anemia- improved -With initial microcytic indices- liver us- Liver is unremarkable. End-stage renal disease on hemodialysis Encephalopathy -2/2 multiple CVA's -Patient was recent at an outside hospital 2/2 to CVA- patient has been since Leukocytosis- on Zosyn Dysphagia with gastrostomy tube -Patient pulled gastrostomy tube out this a.m. -Replaced with 18 Fr[place] gastrostomy tube Coronary artery disease status post CABG history Epilepsy BPH Plan: NPO after midnight EGD/colonoscopy tomorrow Continue PPI BID Patient seen in collaboration with Dr. Sanders Subjective: Course reviewed with nursing staff Patient interviewed and examined All labs, imaging and other results reviewed Pt with multiple episodes of diarrhea- given recent acute anemia and family wished to proceed to endoscopic evaluation we will plan to do EGD colonoscopy tomorrow. I spoke to patient's Alejandra the risk/benefits of both procedure and sedation were standing was verbalized and she agreed on both procedures PHYSICAL EXAMINATION: GENERAL: Well developed, well nourished, confused SKIN: No lesions, g-tube in place NECK: Supple, no masses, thyroid normal CHEST: Inspection within normal limits. CARDIOVASCULAR: Heart: Regular rate and rhythm RESPIRATORY: Lungs clear to auscultation. GASTROINTESTINAL AND LIVER: Abdomen: Soft, non tenderness, non-distended, no hernias, no masses, no organomegaly, no ascites, no guarding, no rebound tenderness, normoactive bowel sounds. Rectal: Deferred. GENITOURINARY: [Male genitalia within normal limits. EXTREMITIES: No cyanosis, clubbing or edema. Result Diagram: 04/02/19 0503 04/02/19 0503 Results 24hrs Laboratory Tests Test 04/01/19 11:25 04/01/19 17:45 04/01/19 20:10 04/02/19 05:03 Bedside Glucose 128 167 136 White Blood Count 8.7 # Red Blood Count 2.77 L Hemoglobin 8.4 L Hematocrit 26.8 L Mean Corpuscular 96.8 Volume Mean Corpuscular 30.3 Hemoglobin Mean Corpuscular 31.3 L Hemoglobin Concent Red Cell 16.8 H Distribution Width Platelet Count 236 Mean Platelet Volume 10.8 H Immature 0.500 H Granulocytes % Neutrophils % 77.7 H Lymphocytes % 7.6 L Monocytes % 7.0 Eosinophils % 6.7 Basophils % 0.5 Nucleated Red Blood 0.0 Cells % Immature 0.040 H Granulocytes # Neutrophils # 6.7 Lymphocytes # 0.7 L Monocytes # 0.6 Eosinophils # 0.6 H Basophils # 0.0 Nucleated Red Blood 0.0 Cells # Sodium Level 141 Potassium Level 3.3 L Chloride Level 101 Carbon Dioxide Level 29 Anion Gap 11 Blood Urea Nitrogen 18 # Creatinine 4.31 #H Glucose Level 141 Calcium Level 8.5 Phosphorus Level 2.8 Magnesium Level 2.3 Albumin 2.8 L Exam/Review of Systems Exam Vitals Vital Signs Date Temp Pulse Resp B/P (MAP) Pulse Ox O2 O2 Flow FiO2 Time Delivery Rate 04/02/19 98.0 88 18 191/84 99 Nasal 08:32 (119) Cannula 04/02/19 3.0 31 01:29 Intake and Output 04/01/19 04/01/19 04/02/19 1515:00 23:00 07:00 IntakeIntake Total 630 ml 150 ml 50 ml OutputOutput Total 4100 ml BalanceBalance -3470 ml 150 ml 50 ml Results Results 24hrs Laboratory Tests Test 04/01/19 11:25 04/01/19 17:45 04/01/19 20:10 04/02/19 05:03 Bedside Glucose 128 167 136 White Blood Count 8.7 # Red Blood Count 2.77 L Hemoglobin 8.4 L Hematocrit 26.8 L Mean Corpuscular 96.8 Volume Mean Corpuscular 30.3 Hemoglobin Mean Corpuscular 31.3 L Hemoglobin Concent Red Cell 16.8 H Distribution Width Platelet Count 236 Mean Platelet Volume 10.8 H Immature 0.500 H Granulocytes % Neutrophils % 77.7 H Lymphocytes % 7.6 L Monocytes % 7.0 Eosinophils % 6.7 Basophils % 0.5 Nucleated Red Blood 0.0 Cells % Immature 0.040 H Granulocytes # Neutrophils # 6.7 Lymphocytes # 0.7 L Monocytes # 0.6 Eosinophils # 0.6 H Basophils # 0.0 Nucleated Red Blood 0.0 Cells # Sodium Level 141 Potassium Level 3.3 L Chloride Level 101 Carbon Dioxide Level 29 Anion Gap 11 Blood Urea Nitrogen 18 # Creatinine 4.31 #H Glucose Level 141 Calcium Level 8.5 Phosphorus Level 2.8 Magnesium Level 2.3 Albumin 2.8 L Medications Medication Current Medications IV Flush (NS 3 ml) 3 ml PER PROTOCOL IV ; Start 03/29/19 at 13:30 Ondansetron HCl (Zofran Inj) 4 mg Q6H PRN IV NAUSEA/VOMITING; Start 03/29/19 at 13:30 Acetaminophen (Tylenol Tab) 650 mg Q6H PRN PO .PAIN 1-3 OR TEMP Last administered on 03/31/19at 05:48; Admin Dose 650 MG; Start 03/29/19 at 13:30 Pantoprazole (Protonix Iv) 40 mg BID@06,18 IV Last administered on 04/02/19at 05:59; Admin Dose 40 MG; Start 03/29/19 at 18:00 Levetiracetam 100 ml @ 400 mls/hr Q12 IVPB Last administered on 04/01/19at 20:48; Admin Dose 400 MLS/HR; Start 03/29/19 at 21:00 Hydralazine HCl (Apresoline) 10 mg Q4H PRN IV sbp >160 Last administered on 03/30/19at 08:26; Admin Dose 10 MG; Start 03/29/19 at 14:00 Miscellaneous Information 1 ea NOTE XX ; Start 03/29/19 at 14:30 Glucose (Glutose) 15 gm Q15M PRN PO DECREASED GLUCOSE; Start 03/29/19 at 14:30 Glucose (Glutose) 22.5 gm Q15M PRN PO DECREASED GLUCOSE; Start 03/29/19 at 14:30 Dextrose (D50w Syringe) 25 ml Q15M PRN IV DECREASED GLUCOSE; Start 03/29/19 at 14:30 Dextrose (D50w Syringe) 50 ml Q15M PRN IV DECREASED GLUCOSE; Start 03/29/19 at 14:30 Glucagon (Glucagen) 1 mg Q15M PRN IM DECREASED GLUCOSE; Start 03/29/19 at 14:30 Glucose (Glutose) 15 gm Q15M PRN BUCCAL DECREASED GLUCOSE; Start 03/29/19 at 14:30 Piperacillin Sod/ Tazobactam Sod 50 ml @ 100 mls/hr Q8 IVPB Last administered on 04/02/19 05:59; Admin Dose 100 MLS/HR; Start 03/29/19 at 14:14 Albumin Human 100 ml @ 100 mls/hr WITH DIALYSIS PRN IV SBP <90 DURING DIALYSIS; Start 03/29/19 at 17:00 Albuterol/ Ipratropium (Duoneb) 3 ml Q2H RESP THERAPY PRN HHN WHEEZING AND RESP DISTRESS Last administered on 04/01/19 21:23; Admin Dose 3 ML; Start 03/29/19 at 18:00 Lorazepam (Ativan) 0.5 mg Q4H PRN IV AGITATION Last administered on 04/02/19 03:55; Admin Dose 0.5 MG; Start 03/29/19 at 18:00 IV Flush (NS 10 ml) 10 ml Q8 PRN IV IV PROTOCOL; Start 03/29/19 at 18:00 Labetalol HCl (Labetalol) 10 mg Q4H PRN IV sbp >160; Start 03/30/19 at 09:00 Haloperidol (Haldol) 5 mg Q6H PRN IM agitation Last administered on 03/31/19 00:10; Admin Dose 5 MG; Start 03/30/19 at 10:00 Heparin Sodium (Porcine) (Heparin (1000 Units/ml)) 3,200 unit AFTER DIALYSIS C ATHETER Last administered on 04/01/19 11:24; Admin Dose 3,200 UNIT; Start 03/30/19 at 17:00 Atorvastatin Calcium (Lipitor) 40 mg HS NGT Last administered on 04/01/19 20:16; Admin Dose 40 MG; Start 03/31/19 at 21:00 Baclofen (Lioresal) 10 mg BID GTB Last administered on 04/02/19 09:22; Admin Dose 10 MG; Start 03/31/19 at 21:00 Doxazosin Mesylate (Cardura) 2 mg DAILY NGT Last administered on 04/02/19 09:22; Admin Dose 2 MG; Start 03/31/19 at 14:30 Gabapentin (Neurontin) 100 mg QHS PO Last administered on 04/01/19 20:16; Admin Dose 100 MG; Start 03/31/19 at 21:00 Carvedilol (Coreg) 12.5 mg BID NGT Last administered on 04/02/19 09:21; Admin Dose 12.5 MG; Start 03/31/19 at 21:00 Hydralazine HCl (Apresoline) 50 mg TID NGT Last administered on 04/02/19 09:20; Admin Dose 50 MG; Start 03/31/19 at 14:30 Losartan Potassium (Cozaar) 100 mg DAILY NGT Last administered on 04/02/19 09:21; Admin Dose 100 MG; Start 03/31/19 at 14:30 Quetiapine Fumarate (Seroquel) 25 mg QHS NGT Last administered on 04/01/19 20:15; Admin Dose 25 MG; Start 03/31/19 at 21:00 Sertraline HCl (Zoloft) 25 mg HS NGT Last administered on 04/01/19 20:15; Admin Dose 25 MG; Start 03/31/19 at 21:00 Acetaminophen (Tylenol Liquid) 650 mg Q4H PRN PEG MILD PAIN(1-3)OR ELEVATED TEMP Last administered on 03/31/19at 16:31; Admin Dose 650 MG; Start 03/31/19 at 16:00 Diagnostic Test (Pha) (Accu-Chek) 1 ea 02 XX ; Start 04/03/19 at 02:00 Insulin Aspart (Novolog Insulin Pen) NOVOLOG *MILD* ALGORI... Q6 SC ; Start 04/02/19 at 12:00 JUNE LEE Apr 02, 2019 10:08
--- NOTE | 2019-04-02 10:32 | PN ---
Date/Time of Note Date/Time of Note DATE: 04/02/19 TIME: 10:32 Assessment/Plan VTE Prophylaxis Risk score (from Ns)>0 risk: 4 SCD applied (from Ns): Yes Pharmacological prophylaxis: heparin Lines/Catheters IV Catheter Type (from Nrs): permacath Urinary Cath still in place: No Assessment/Plan Assessment/Plan 1. Acute on chronic encephalopathy- improved - patient at baseline and remains calm - Neurology on board and appreciate recommendations. CT unrevealing - blood cultures negative and UA negative so no toxic source noted 2. Hypertensive emergency - BP still elevated and will adjust medications for better control 3. Severe anemia - No active bleeding appreciated - Family requesting EGD/colonoscopy prior to d/c and GI will plan for procedures tomorrow 4. Leukocytosis- resolved - Cultures done - No apparent source of infection for now however patient does have some fever - d/c antibiotics 5. Dysphasia - PEG in place and started on tube feeds 6. End-stage renal disease on hemodialysis - Nephrology on board and appreciate consultation. Continue HD 7. Coronary artery disease status post CABG history - continue home medications - will need to hold aspirin and Plavix in setting of acute GI bleed. will restart after EGD/colonoscopy 8. Epilepsy - Continue Keppra IV 9. History of CVA with residual left-sided deficit and more recent CVA 1 month ago - Patient reportedly had a new stroke approximately 1 month ago at [facility] which is the cause of patient's current encephalopathic state - After speaking with daughter, appears this is patient's baseline after leaving [facility] proximally 1 week ago. Patient suffered CVA and subsequent long stay in the ICU which required intubation and PEG tube. Patient almost required tracheostomy however appear to have been able to be weaned off the ventilator. - Neurology consultation appreciated 10. BPH 11. Diarrhea - most likely from TF - will add lactobacillus 12. Disposition - will plan for EGD/colonoscopy tomorrow Result Diagram: 04/02/19 0503 04/02/19 0503 Results 24hrs Laboratory Tests Test 04/01/19 11:25 04/01/19 17:45 04/01/19 20:10 04/02/19 05:03 Bedside Glucose 128 167 136 White Blood Count 8.7 # Red Blood Count 2.77 L Hemoglobin 8.4 L Hematocrit 26.8 L Mean Corpuscular 96.8 Volume Mean Corpuscular 30.3 Hemoglobin Mean Corpuscular 31.3 L Hemoglobin Concent Red Cell 16.8 H Distribution Width Platelet Count 236 Mean Platelet Volume 10.8 H Immature 0.500 H Granulocytes % Neutrophils % 77.7 H Lymphocytes % 7.6 L Monocytes % 7.0 Eosinophils % 6.7 Basophils % 0.5 Nucleated Red Blood 0.0 Cells % Immature 0.040 H Granulocytes # Neutrophils # 6.7 Lymphocytes # 0.7 L Monocytes # 0.6 Eosinophils # 0.6 H Basophils # 0.0 Nucleated Red Blood 0.0 Cells # Sodium Level 141 Potassium Level 3.3 L Chloride Level 101 Carbon Dioxide Level 29 Anion Gap 11 Blood Urea Nitrogen 18 # Creatinine 4.31 #H Glucose Level 141 Calcium Level 8.5 Phosphorus Level 2.8 Magnesium Level 2.3 Albumin 2.8 L Subjective 24 Hr Interval Summary Free Text/Dictation Patient remains calm and no acute distress noted. With watery diarrhea per Nurse but no blood appreciated. Exam/Review of Systems Exam Vitals Vital Signs Date Temp Pulse Resp B/P (MAP) Pulse Ox O2 O2 Flow FiO2 Time Delivery Rate 04/02/19 98.0 88 18 191/84 99 Nasal 08:32 (119) Cannula 04/02/19 3.0 31 01:29 Intake and Output 04/01/19 04/01/19 04/02/19 1515:00 23:00 07:00 IntakeIntake Total 630 ml 150 ml 50 ml OutputOutput Total 4100 ml BalanceBalance -3470 ml 150 ml 50 ml Exam General: no acute distress. mentation: Patient is alert but not oriented Neck: Supple, nontender, midline Respiratory: Clear to auscultation bilaterally. no wheezing or rhonchi Cardiovascular: S1, S2, regular rate and rhythm. No obvious murmurs Gastrointestinal: soft, non-tender to palpation, nondistended, bowel sounds heard. Skin: No new skin lesions Results Results 24hrs Laboratory Tests Test 04/01/19 11:25 04/01/19 17:45 04/01/19 20:10 04/02/19 05:03 Bedside Glucose 128 167 136 White Blood Count 8.7 # Red Blood Count 2.77 L Hemoglobin 8.4 L Hematocrit 26.8 L Mean Corpuscular 96.8 Volume Mean Corpuscular 30.3 Hemoglobin Mean Corpuscular 31.3 L Hemoglobin Concent Red Cell 16.8 H Distribution Width Platelet Count 236 Mean Platelet Volume 10.8 H Immature 0.500 H Granulocytes % Neutrophils % 77.7 H Lymphocytes % 7.6 L Monocytes % 7.0 Eosinophils % 6.7 Basophils % 0.5 Nucleated Red Blood 0.0 Cells % Immature 0.040 H Granulocytes # Neutrophils # 6.7 Lymphocytes # 0.7 L Monocytes # 0.6 Eosinophils # 0.6 H Basophils # 0.0 Nucleated Red Blood 0.0 Cells # Sodium Level 141 Potassium Level 3.3 L Chloride Level 101 Carbon Dioxide Level 29 Anion Gap 11 Blood Urea Nitrogen 18 # Creatinine 4.31 #H Glucose Level 141 Calcium Level 8.5 Phosphorus Level 2.8 Magnesium Level 2.3 Albumin 2.8 L Medications Medication Current Medications IV Flush (NS 3 ml) 3 ml PER PROTOCOL IV ; Start 03/29/19 at 13:30 Ondansetron HCl (Zofran Inj) 4 mg Q6H PRN IV NAUSEA/VOMITING; Start 03/29/19 at 13:30 Acetaminophen (Tylenol Tab) 650 mg Q6H PRN PO .PAIN 1-3 OR TEMP Last administered on 03/31/19at 05:48; Admin Dose 650 MG; Start 03/29/19 at 13:30 Pantoprazole (Protonix Iv) 40 mg BID@06,18 IV Last administered on 04/02/19at 05:59; Admin Dose 40 MG; Start 03/29/19 at 18:00 Levetiracetam 100 ml @ 400 mls/hr Q12 IVPB Last administered on 04/01/19at 20:48; Admin Dose 400 MLS/HR; Start 03/29/19 at 21:00 Hydralazine HCl (Apresoline) 10 mg Q4H PRN IV sbp >160 Last administered on 03/30/19at 08:26; Admin Dose 10 MG; Start 03/29/19 at 14:00 Miscellaneous Information 1 ea NOTE XX ; Start 03/29/19 at 14:30 Glucose (Glutose) 15 gm Q15M PRN PO DECREASED GLUCOSE; Start 03/29/19 at 14:30 Glucose (Glutose) 22.5 gm Q15M PRN PO DECREASED GLUCOSE; Start 03/29/19 at 14:30 Dextrose (D50w Syringe) 25 ml Q15M PRN IV DECREASED GLUCOSE; Start 03/29/19 at 14:30 Dextrose (D50w Syringe) 50 ml Q15M PRN IV DECREASED GLUCOSE; Start 03/29/19 at 14:30 Glucagon (Glucagen) 1 mg Q15M PRN IM DECREASED GLUCOSE; Start 03/29/19 at 14:30 Glucose (Glutose) 15 gm Q15M PRN BUCCAL DECREASED GLUCOSE; Start 03/29/19 at 14:30 Piperacillin Sod/ Tazobactam Sod 50 ml @ 100 mls/hr Q8 IVPB Last administered on 04/02/19at 05:59; Admin Dose 100 MLS/HR; Start 03/29/19 at 14:14 Albumin Human 100 ml @ 100 mls/hr WITH DIALYSIS PRN IV SBP <90 DURING DIALYSIS; Start 03/29/19 at 17:00 Albuterol/ Ipratropium (Duoneb) 3 ml Q2H RESP THERAPY PRN HHN WHEEZING AND RESP DISTRESS Last administered on 04/01/19at 21:23; Admin Dose 3 ML; Start 03/29/19 at 18:00 Lorazepam (Ativan) 0.5 mg Q4H PRN IV AGITATION Last administered on 04/02/19at 03:55; Admin Dose 0.5 MG; Start 03/29/19 at 18:00 IV Flush (NS 10 ml) 10 ml Q8 PRN IV IV PROTOCOL; Start 03/29/19 at 18:00 Labetalol HCl (Labetalol) 10 mg Q4H PRN IV sbp >160; Start 03/30/19 at 09:00 Haloperidol (Haldol) 5 mg Q6H PRN IM agitation Last administered on 03/31/19at 00:10; Admin Dose 5 MG; Start 03/30/19 at 10:00 Heparin Sodium (Porcine) (Heparin (1000 Units/ml)) 3,200 unit AFTER DIALYSIS CATHETER Last administered on 04/01/19at 11:24; Admin Dose 3,200 UNIT; Start 03/30/19 at 17:00 Atorvastatin Calcium (Lipitor) 40 mg HS NGT Last administered on 04/01/19at 20:16; Admin Dose 40 MG; Start 03/31/19 at 21:00 Baclofen (Lioresal) 10 mg BID GTB Last administered on 04/02/19at 09:22; Admin Dose 10 MG; Start 03/31/19 at 21:00 Doxazosin Mesylate (Cardura) 2 mg DAILY NGT Last administered on 04/02/19 09:22; Admin Dose 2 MG; Start 03/31/19 at 14:30 Gabapentin (Neurontin) 100 mg QHS PO Last administered on 04/01/19 20:16; Admin Dose 100 MG; Start 03/31/19 at 21:00 Carvedilol (Coreg) 12.5 mg BID NGT Last administered on 04/02/19 09:21; Admin Dose 12.5 MG; Start 03/31/19 at 21:00 Hydralazine HCl (Apresoline) 50 mg TID NGT Last administered on 04/02/19 09:20; Admin Dose 50 MG; Start 03/31/19 at 14:30 Losartan Potassium (Cozaar) 100 mg DAILY NGT Last administered on 04/02/19 09:21; Admin Dose 100 MG; Start 03/31/19 at 14:30 Quetiapine Fumarate (Seroquel) 25 mg QHS NGT Last administered on 04/01/19 20:15; Admin Dose 25 MG; Start 03/31/19 at 21:00 Sertraline HCl (Zoloft) 25 mg HS NGT Last administered on 04/01/19 20:15; Admin Dose 25 MG; Start 03/31/19 at 21:00 Acetaminophen (Tylenol Liquid) 650 mg Q4H PRN PEG MILD PAIN(1-3)OR ELEVATED TEMP Last administered on 03/31/19 16:31; Admin Dose 650 MG; Start 03/31/19 at 16:00 Diagnostic Test (Pha) (Accu-Chek) 1 ea 02 XX ; Start 04/03/19 at 02:00 Insulin Aspart (Novolog Insulin Pen) NOVOLOG *MILD* ALGORI... Q6 SC ; Start 04/02/19 at 12:00 LILLIAN ZHANG MD Apr 02, 2019 10:32
[2019-04-02] MEDS: LEVETIRACETAM 500 MG (PMX) 100 ML IVPB SCH ×2 (10:37→21:00)
[2019-04-02] MEDS: LACTOBACILLUS RHAMNOSUS CAP GTB SCH ×2 (12:35→20:56)
--- NOTE | 2019-04-02 14:09 | CONS ---
Assessment/Plan Assessment/Plan Assessment/Plan (Daily) 1. Acute enceophalkoapthy,possibly metabolic encephalopathy 2. acute Uremia due to missed HD - now resolved 3. ESRD on HD - MWF schedule at [facility] HD center 4. H/o CAD s/p CABG before 5. H/o CAD with previous recent stent placement in 09/2018 6. h/o HTN 7. H/o DM II 8. h/o HL 9. 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 H/o BPH Plan: s/p HD yesterday 3.5 L removed, pt required Haldo and seroquel for agitation, on Tele floor now IV abx stopped today Losartan 100mg po daily Coreg 25 BID, still BP in systolic 180s, will add Nifedipine Xl 30mg po daily for better BP control IV keppra will continue pt on MWF schedule while being in hospital, HD ordered for Monday will follow up Consultation Date/Type/Reason Admit Date/Time Mar 29, 2019 at 13:16 Initial Consult Date 03/29/19 Type of Consult NEPHROLOGY Requesting Provider: STEWART WINTER Date/Time of Note DATE: 04/02/19 TIME: 14:09 Exam/Review of Systems Exam Vitals Vital Signs Date Temp Pulse Resp B/P (MAP) Pulse Ox O2 O2 Flow FiO2 Time Delivery Rate 04/02/19 79 12:05 04/02/19 98.0 170/64 99 Nasal 10:50 (99) Cannula 04/02/19 18 08:32 04/02/19 3.0 31 01:29 Intake and Output 04/01/19 04/01/19 04/02/19 1515:00 23:00 07:00 IntakeIntake Total 630 ml 150 ml 50 ml OutputOutput Total 4100 ml BalanceBalance -3470 ml 150 ml 50 ml Exam Constitutional: alert, awake, not oriented, little agitated Respiratory: crackles/rales, diminished breath sounds Cardiovascular: regular rate and rhythm, nl pulses Gastrointestinal: soft, non-tender Musculoskeletal: swelling (1-2+pitting edema ) Extremities: normal pulses Neurological: Non focal Results Result Diagram: 04/02/19 0503 04/02/19 0503 Results 24hrs Laboratory Tests Test 04/01/19 17:45 04/01/19 20:10 04/02/19 05:03 04/02/19 12:02 Bedside Glucose 167 136 161 White Blood Count 8.7 # Red Blood Count 2.77 L Hemoglobin 8.4 L Hematocrit 26.8 L Mean Corpuscular 96.8 Volume Mean Corpuscular 30.3 Hemoglobin Mean Corpuscular 31.3 L Hemoglobin Concent Red Cell 16.8 H Distribution Width Platelet Count 236 Mean Platelet Volume 10.8 H Immature 0.500 H Granulocytes % Neutrophils % 77.7 H Lymphocytes % 7.6 L Monocytes % 7.0 Eosinophils % 6.7 Basophils % 0.5 Nucleated Red Blood 0.0 Cells % Immature 0.040 H Granulocytes # Neutrophils # 6.7 Lymphocytes # 0.7 L Monocytes # 0.6 Eosinophils # 0.6 H Basophils # 0.0 Nucleated Red Blood 0.0 Cells # Sodium Level 141 Potassium Level 3.3 L Chloride Level 101 Carbon Dioxide Level 29 Anion Gap 11 Blood Urea Nitrogen 18 # Creatinine 4.31 #H Glucose Level 141 Calcium Level 8.5 Phosphorus Level 2.8 Magnesium Level 2.3 Albumin 2.8 L Medications Medication Current Medications IV Flush (NS 3 ml) 3 ml PER PROTOCOL IV ; Start 03/29/19 at 13:30 Ondansetron HCl (Zofran Inj) 4 mg Q6H PRN IV NAUSEA/VOMITING; Start 03/29/19 at 13:30 Acetaminophen (Tylenol Tab) 650 mg Q6H PRN PO .PAIN 1-3 OR TEMP Last administered on 03/31/19at 05:48; Admin Dose 650 MG; Start 03/29/19 at 13:30 Pantoprazole (Protonix Iv) 40 mg BID@06,18 IV Last administered on 04/02/19at 05:59; Admin Dose 40 MG; Start 03/29/19 at 18:00 Levetiracetam 100 ml @ 400 mls/hr Q12 IVPB Last administered on 04/02/19at 10:37; Admin Dose 400 MLS/HR; Start 03/29/19 at 21:00 Hydralazine HCl (Apresoline) 10 mg Q4H PRN IV sbp >160 Last administered on 03/30/19at 08:26; Admin Dose 10 MG; Start 03/29/19 at 14:00 Miscellaneous Information 1 ea NOTE XX ; Start 03/29/19 at 14:30 Glucose (Glutose) 15 gm Q15M PRN PO DECREASED GLUCOSE; Start 03/29/19 at 14:30 Glucose (Glutose) 22.5 gm Q15M PRN PO DECREASED GLUCOSE; Start 03/29/19 at 14:30 Dextrose (D50w Syringe) 25 ml Q15M PRN IV DECREASED GLUCOSE; Start 03/29/19 at 14:30 Dextrose (D50w Syringe) 50 ml Q15M PRN IV DECREASED GLUCOSE; Start 03/29/19 at 14:30 Glucagon (Glucagen) 1 mg Q15M PRN IM DECREASED GLUCOSE; Start 03/29/19 at 14:30 Glucose (Glutose) 15 gm Q15M PRN BUCCAL DECREASED GLUCOSE; Start 03/29/19 at 14:30 Albumin Human 100 ml @ 100 mls/hr WITH DIALYSIS PRN IV SBP <90 DURING DIALYSIS; Start 03/29/19 at 17:00 Albuterol/ Ipratropium (Duoneb) 3 ml Q2H RESP THERAPY PRN HHN WHEEZING AND RESP DISTRESS Last administered on 04/01/19at 21:23; Admin Dose 3 ML; Start 03/29/19 at 18:00 Lorazepam (Ativan) 0.5 mg Q4H PRN IV AGITATION Last administered on 04/02/19at 03:55; Admin Dose 0.5 MG; Start 03/29/19 at 18:00 IV Flush (NS 10 ml) 10 ml Q8 PRN IV IV PROTOCOL; Start 03/29/19 at 18:00 Labetalol HCl (Labetalol) 10 mg Q4H PRN IV sbp >160; Start 03/30/19 at 09:00 Haloperidol (Haldol) 5 mg Q6H PRN IM agitation Last administered on 03/31/19at 00:10; Admin Dose 5 MG; Start 03/30/19 at 10:00 Heparin Sodium (Porcine) (Heparin (1000 Units/ml)) 3,200 unit AFTER DIALYSIS CATHETER Last administered on 04/01/19at 11:24; Admin Dose 3,200 UNIT; Start 03/30/19 at 17:00 Atorvastatin Calcium (Lipitor) 40 mg HS NGT Last administered on 04/01/19at 20:16; Admin Dose 40 MG; Start 03/31/19 at 21:00 Baclofen (Lioresal) 10 mg BID GTB Last administered on 04/02/19 09:22; Admin Dose 10 MG; Start 03/31/19 at 21:00 Doxazosin Mesylate (Cardura) 2 mg DAILY NGT Last administered on 04/02/19 09:22; Admin Dose 2 MG; Start 03/31/19 at 14:30 Gabapentin (Neurontin) 100 mg QHS PO Last administered on 04/01/19 20:16; Admin Dose 100 MG; Start 03/31/19 at 21:00 Carvedilol (Coreg) 12.5 mg BID NGT Last administered on 04/02/19 09:21; Admin Dose 12.5 MG; Start 03/31/19 at 21:00 Hydralazine HCl (Apresoline) 50 mg TID NGT Last administered on 04/02/19 12:35; Admin Dose 50 MG; Start 03/31/19 at 14:30 Losartan Potassium (Cozaar) 100 mg DAILY NGT Last administered on 04/02/19 09:21; Admin Dose 100 MG; Start 03/31/19 at 14:30 Quetiapine Fumarate (Seroquel) 25 mg QHS NGT Last administered on 04/01/19 20:15; Admin Dose 25 MG; Start 03/31/19 at 21:00 Sertraline HCl (Zoloft) 25 mg HS NGT Last administered on 04/01/19 20:15; Ad min Dose 25 MG; Start 03/31/19 at 21:00 Acetaminophen (Tylenol Liquid) 650 mg Q4H PRN PEG MILD PAIN(1-3)OR ELEVATED TEMP Last administered on 03/31/19 16:31; Admin Dose 650 MG; Start 03/31/19 at 16:00 Diagnostic Test (Pha) (Accu-Chek) 1 ea 02 XX ; Start 04/03/19 at 02:00 Insulin Aspart (Novolog Insulin Pen) NOVOLOG *MILD* ALGORI... Q6 SC Last administered on 04/02/19 12:30; Admin Dose 1 UNIT; Start 04/02/19 at 12:00 Lactobacillus Acidophilus/ Rhamnosus (Culturelle) 1 cap TID GTB Last admini stered on 04/02/19 12:35; Admin Dose 1 CAP; Start 04/02/19 at 13:00 Polyethylene Glycol/ Electrolytes (Golytely) 2,000 ml ONCE ONCE PO ; Start 04/02/19 at 17:00; Stop 04/02/19 at 17:01 Polyethylene Glycol/ Electrolytes (Golytely) 2,000 ml 2nd Dose (GI Prep) ONCE PO ; Start 04/03/19 at 07:00; Stop 04/03/19 at 07:01 BETZAIDA YAÑEZ MD Apr 02, 2019 14:09
[2019-04-02] MEDS: ONDANSETRON 4 MG INJ IV PRN (14:58)
[2019-04-02] MEDS: hydrALAzine 20 MG INJ IV PRN (15:15)
[2019-04-02] MEDS ORDERED: PEG/ELECTROLYTES 4L BTL PO ONE (17:00)
[2019-04-02] MEDS: SERTRALINE 50 MG TAB NGT SCH (20:55)
[2019-04-02] MEDS: GABAPENTIN 100 MG CAP PO SCH (20:56)
[2019-04-02] MEDS: QUETIAPINE 25 MG TAB NGT SCH (20:56)
[2019-04-02] MEDS: ATORVASTATIN 40 MG TAB NGT SCH (20:56)
[2019-04-03] VITALS (31 sets, daily range): BP systolic 84–184; BP diastolic 52–83; PULSE 63–88; RESP 5–20
[2019-04-03] MEDS: ACCU-CHEK XX SCH (02:19)
[2019-04-03] MEDS: PANTOPRAZOLE 40 MG INJ IV SCH ×2 (05:31→18:24)
[2019-04-03] MEDS: INSULIN ASPART [NOVOLOG] 3 ML PEN SC SCH ×3 (05:31→18:00)
[2019-04-03] MEDS ORDERED: PEG/ELECTROLYTES 4L BTL PO ONE (07:00)
[2019-04-03] MEDS: LEVETIRACETAM 500 MG (PMX) 100 ML IVPB SCH ×2 (08:47→20:15)
[2019-04-03] MEDS: LOSARTAN 50 MG TAB NGT SCH (08:48)
[2019-04-03] MEDS: BACLOFEN 10 MG TAB GTB SCH ×2 (08:48→20:15)
[2019-04-03] MEDS: DOXAZOSIN 2 MG TAB NGT SCH (08:49)
[2019-04-03] MEDS: NIFEdipine (XL) 30 MG TAB PO SCH (08:49)
[2019-04-03] MEDS: LACTOBACILLUS RHAMNOSUS CAP GTB SCH ×3 (09:00→20:16)
--- NOTE | 2019-04-03 13:48 | CONS ---
Assessment/Plan Assessment/Plan Assessment/Plan (Daily) 1. Acute enceophalkoapthy,possibly metabolic encephalopathy 2. acute Uremia due to missed HD - now resolved 3. ESRD on HD - MWF schedule at [facility] HD center 4. H/o CAD s/p CABG before 5. H/o CAD with previous recent stent placement in 09/2018 6. h/o HTN 7. H/o DM II 8. h/o HL 9. 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 H/o BPH 11. Anemia of ESRD Plan: s/p HD on Monday 3.5 L removed, Plan for HD today , pt required Haldo and seroquel for agitation, BP controlled with Losartan 100mg po daily Coreg 25 BID, Nifedipine Xl 30mg po daily for better BP control Epogen 80065 units SQ MWF - one dose today plan for Colonoscopy today Epogen will continue pt on MWF schedule while being in hospital, HD ordered for today will follow up Consultation Date/Type/Reason Admit Date/Time Mar 29, 2019 at 13:16 Initial Consult Date 03/29/19 Type of Consult NEPHROLOGY Requesting Provider: STEWART WINTER Date/Time of Note DATE: 04/03/19 TIME: 13:48 Exam/Review of Systems Exam Vitals Vital Signs Date Temp Pulse Resp B/P (MAP) Pulse Ox O2 O2 Flow FiO2 Time Delivery Rate 04/03/19 83 12:16 04/03/19 98.0 20 126/58 96 Nasal 11:54 (80) Cannula 04/03/19 3.0 09:19 04/02/19 31 01:29 Intake and Output 04/02/19 04/02/19 04/03/19 1515:00 23:00 07:00 IntakeIntake Total 425 ml 100 ml OutputOutput Total 700 ml 450 ml BalanceBalance 425 ml -600 ml -450 ml Exam Constitutional: alert, awake, not oriented, little agitated Respiratory: crackles/rales, diminished breath sounds Cardiovascular: regular rate and rhythm, nl pulses Gastrointestinal: soft, non-tender Musculoskeletal: swelling (1-2+pitting edema ) Extremities: normal pulses Neurological: Non focal Results Result Diagram: 04/03/19 0528 04/03/19 0528 Results 24hrs Laboratory Tests Test 04/02/19 17:46 04/02/19 20:53 04/02/19 23:46 04/03/19 02:17 Bedside Glucose 149 118 112 100 Test 04/03/19 05:27 04/03/19 05:28 04/03/19 12:32 Bedside Glucose 105 102 White Blood Count 7.0 Red Blood Count 2.65 L Hemoglobin 8.3 L Hematocrit 26.4 L Mean Corpuscular 99.6 Volume Mean Corpuscular 31.3 Hemoglobin Mean Corpuscular 31.4 L Hemoglobin Concent Red Cell 16.4 H Distribution Width Platelet Count 224 Mean Platelet Volume 10.7 H Immature 0.300 Granulocytes % Neutrophils % 67.7 Lymphocytes % 14.3 L Monocytes % 6.3 Eosinophils % 10.5 H Basophils % 0.9 Nucleated Red Blood 0.0 Cells % Immature 0.020 Granulocytes # Neutrophils # 4.8 Lymphocytes # 1.0 Monocytes # 0.4 Eosinophils # 0.7 H Basophils # 0.1 Nucleated Red Blood 0.0 Cells # Sodium Level 142 Potassium Level 4.4 Chloride Level 103 Carbon Dioxide Level 29 Anion Gap 10 Blood Urea Nitrogen 26 H Creatinine 5.90 H Glucose Level 106 Calcium Level 8.8 Phosphorus Level 4.1 Magnesium Level 2.5 Albumin 2.8 L Medications Medication Current Medications IV Flush (NS 3 ml) 3 ml PER PROTOCOL IV ; Start 03/29/19 at 13:30 Ondansetron HCl (Zofran Inj) 4 mg Q6H PRN IV NAUSEA/VOMITING Last administered on 04/02/19at 14:58; Admin Dose 4 MG; Start 03/29/19 at 13:30 Acetaminophen (Tylenol Tab) 650 mg Q6H PRN PO .PAIN 1-3 OR TEMP Last administered on 03/31/19at 05:48; Admin Dose 650 MG; Start 03/29/19 at 13:30 Pantoprazole (Protonix Iv) 40 mg BID@06,18 IV Last administered on 04/03/19at 05 :31; Admin Dose 40 MG; Start 03/29/19 at 18:00 Levetiracetam 100 ml @ 400 mls/hr Q12 IVPB Last administered on 04/03/19 08:47; Admin Dose 400 MLS/HR; Start 03/29/19 at 21:00 Hydralazine HCl (Apresoline) 10 mg Q4H PRN IV sbp >160 Last administered on 04/02/19at 15:15; Admin Dose 10 MG; Start 03/29/19 at 14:00 Miscellaneous Information 1 ea NOTE XX ; Start 03/29/19 at 14:30 Glucose (Glutose) 15 gm Q15M PRN PO DECREASED GLUCOSE; Start 03/29/19 at 14:30 Glucose (Glutose) 22.5 gm Q15M PRN PO DECREASED GLUCOSE; Start 03/29/19 at 14:30 Dextrose (D50w Syringe) 25 ml Q15M PRN IV DECREASED GLUCOSE; Start 03/29/19 at 14:30 Dextrose (D50w Syringe) 50 ml Q15M PRN IV DECREASED GLUCOSE; Start 03/29/19 at 14:30 Glucagon (Glucagen) 1 mg Q15M PRN IM DECREASED GLUCOSE; Start 03/29/19 at 14:30 Glucose (Glutose) 15 gm Q15M PRN BUCCAL DECREASED GLUCOSE; Start 03/29/19 at 14:30 Albumin Human 100 ml @ 100 mls/hr WITH DIALYSIS PRN IV SBP <90 DURING DIALYSIS; Start 03/29/19 at 17:00 Albuterol/ Ipratropium (Duoneb) 3 ml Q2H RESP THERAPY PRN HHN WHEEZING AND RESP DISTRESS Last administered on 04/01/19at 21:23; Admin Dose 3 ML; Start 03/29/19 at 18:00 Lorazepam (Ativan) 0.5 mg Q4H PRN IV AGITATION Last administered on 04/02/19at 03:55; Admin Dose 0.5 MG; Start 03/29/19 at 18:00 IV Flush (NS 10 ml) 10 ml Q8 PRN IV IV PROTOCOL; Start 03/29/19 at 18:00 Labetalol HCl (Labetalol) 10 mg Q4H PRN IV sbp >160; Start 03/30/19 at 09:00 Haloperidol (Haldol) 5 mg Q6H PRN IM agitation Last administered on 03/31/19at 00:10; Admin Dose 5 MG; Start 03/30/19 at 10:00 Heparin Sodium (Porcine) (Heparin (1000 Units/ml)) 3,200 unit AFTER DIALYSIS CATHETER Last administered on 04/01/19at 11:24; Admin Dose 3,200 UNIT; Start 03/30/19 at 17:00 Atorvastatin Calcium (Lipitor) 40 mg HS NGT Last administered on 04/02/19 20:56; Admin Dose 40 MG; Start 03/31/19 at 21:00 Baclofen (Lioresal) 10 mg BID GTB Last administered on 04/03/19 08:48; Admin Dose 10 MG; Start 03/31/19 at 21:00 Doxazosin Mesylate (Cardura) 2 mg DAILY NGT Last administered on 04/03/19 08:49; Admin Dose 2 MG; Start 03/31/19 at 14:30 Gabapentin (Neurontin) 100 mg QHS PO Last administered on 04/02/19 20:56; Admin Dose 100 MG; Start 03/31/19 at 21:00 Losartan Potassium (Cozaar) 100 mg DAILY NGT Last administered on 04/03/19 08:48; Admin Dose 100 MG; Start 03/31/19 at 14:30 Quetiapine Fumarate (Seroquel) 25 mg QHS NGT Last administered on 04/02/19 20:56; Admin Dose 25 MG; Start 03/31/19 at 21:00 Sertraline HCl (Zoloft) 25 mg HS NGT Last administered on 04/02/19 20:55; Admin Dose 25 MG; Start 03/31/19 at 21:00 Acetaminophen (Tylenol Liquid) 650 mg Q4H PRN PEG MILD PAIN(1-3)OR ELEVATED TEMP Last administered on 03/31/19 16:31; Admin Dose 650 MG; Start 03/31/19 at 16:00 Diagnostic Test (Pha) (Accu-Chek) 1 ea 02 XX Last administered on 04/03/19 02:19; Admin Dose 1 EA; Start 04/03/19 at 02:00 Insulin Aspart (Novolog Insulin Pen) NOVOLOG *MILD* ALGORI... Q6 SC Last administered on 04/02/19 18:10; Admin Dose 1 UNIT; Start 04/02/19 at 12:00 Lactobacillus Acidophilus/ Rhamnosus (Culturelle) 1 cap TID GTB Last admin istered on 04/03/19 13:24; Admin Dose 1 CAP; Start 04/02/19 at 13:00 Carvedilol (Coreg) 25 mg BID NGT Last administered on 04/03/19 08:48; Admin Dose 25 MG; Start 04/02/19 at 21:00 Hydralazine HCl (Apresoline) 75 mg TID NGT Last administered on 04/03/19at 13:24; Admin Dose 75 MG; Start 04/02/19 at 21:00 Nifedipine (Procardia Xl) 30 mg DAILY PO Last administered on 04/03/19at 08:49; Admin Dose 30 MG; Start 04/03/19 at 09:00 BETZAIDA YAÑEZ MD Apr 03, 2019 13:48
--- NOTE | 2019-04-03 15:42 | PREAC ---
Date/Time of Note Date/Time of Note DATE: 04/03/19 TIME: 15:40 Anesthesia Eval and Record Evaluation Time Pre-Procedure Interview DATE: 04/03/19 TIME: 15:40 Age 58 Sex male NPO: 8 hrs Preoperative diagnosis anemia diarrrhea Planned procedure egd and colonoscopy Past Medical History Past Medical History: Includes Cardio: HTN, Dyslipidemia, CAD, CABG Endo: Diabetes Neuro: CVA, Seizure disorder Renal: ESRD on dialysis Heme: Anemia Surgery & Anesthesia Issues No known issue Meds Anticoagulation: No Beta Kailyn within 24 hr: No Reason Beta Kailyn not given: Pt. not on B-Kailyn Reported Medications Bisacodyl (Dulcolax) 10 Mg Supp.rect, 10 MG RC DAILY PRN for CONSTIPATION, SUPP.RECT 03/29/19 Sodium Phosphate,Anson-Dibasic (Enema Ready To Use) 133 Ml Enema, 133 ML RC EVERY 2 DAYS PRN for CONSTIPATION, ENEMA 03/29/19 Acetaminophen* (Acetaminophen*) 650 Mg Tablet, 650 MG GTB Q4 PRN for MILD PAIN LEVEL 1-3, #30 TAB AND FEVER 03/29/19 Acetaminophen* (Acetaminophen*) 500 MG Extra Strength Tablet, 1000 MG GTB Q4H PRN for MODERATE PAIN LEVEL 4-6, TAB 03/29/19 Acetaminophen* (Acetaminophen*) 500 MG Extra Strength Tablet, 1000 MG GTB BID PRN for GENERAL BODY PAIN, TAB 03/29/19 Amino Acids/Protein Hydrolys (Pro-Stat Awc Liquid) 30 Ml Liquid, 30 ML GTB DAILY SUGAR FREE 03/29/19 Multivitamin* (Daily Value*) 1 Each Tablet, 1 TAB GTB DAILY, TAB 03/29/19 Ascorbic Acid* (Vitamin C*) 500 Mg Capsule.sa, 500 MG GTB DAILY, CAP 03/29/19 Ferrous Sulfate (Ferrous Sulfate) 300 Mg/5 Ml Liquid, 325 MG GTB DAILY 03/29/19 Cran/Vitc/Mannose/Inulin/Brom (Uti-Stat Liquid) 3,875 Mg/30 Ml Liquid, 3875 MG GTB DAILY 03/29/19 Cranberry Extract (Cranberry) 425 Mg Capsule, 425 MG GTB DAILY, CAP 03/29/19 Insulin Glulisine (Apidra Solostar) 100 Unit/1 Ml Insuln.pen, 4 UNIT SQ TIDM A, #1 TUB 03/29/19 Insulin Glargine,Hum.rec.anlog (Basaglar Pavanpen U-100) 100 Unit/1 Ml Insuln.pen, 25 UNIT SC QHS, EA 03/29/19 Insulin Regular, Human (Humulin R) 100 Unit/1 Ml Vial, 0 IJ AC MEALS AND BEDT GONZALEZ, VIAL 0-150 = 0 UNIT 151-200 = 1 UNIT 201-250 = 2 UNITS 251-300 = 3 UNITS 301-350 = 4 UNITS 351-400 = 5 UNITS OVER 400 GIVE 6 UNITS UNDER 70 OR OVER 400 NOTIFY 03/29/19 Sertraline Hcl* (Sertraline Hcl*) 25 Mg Tablet, 25 MG GTB DAILY, #30 TAB 03/29/19 Lorazepam* (Ativan*) 0.5 Mg Tablet, 0.5 MG GTB DAILY PRN for ANXIETY, #30 TAB 03/29/19 Quetiapine Fumarate* (Seroquel*) 25 Mg Tablet, 25 MG GTB HS, #30 TAB 03/29/19 Lorazepam* (Lorazepam*) 0.5 Mg Tablet, 0.5 MG GTB DAILY PRN for ANXIETY, TAB 03/29/19 Clonidine Hcl* (Clonidine Hcl*) 0.1 Mg Tab, 0.1 MG GTB DAILY PRN for ELEVATED BLOOD PRESSURE, TAB SBP >160 03/29/19 Azelastine Hcl* (Azelastine Hcl*) 137 Mcg/0.137 Ml Dix.pump, 2 SPRAYS NASAL BID, #1 EA TO EACH NOSTRIL 03/29/19 Carvedilol* (Carvedilol*) 12.5 Mg Tablet, 12.5 MG GTB BID, #60 TAB 03/29/19 Diltiazem Hcl* (Cardizem CD*) 240 Mg Cap.sr.24h, 240 MG GTB DAILY, #30 CAP 03/29/19 Ergocalciferol (Vitamin D2) (VITAMIN D2) 50,000 Unit Capsule, 46122 UNIT GTB EVERY MONDAY, CAP 03/29/19 Hydralazine Hcl* (Hydralazine Hcl*) 50 Mg Tab, 50 MG GTB TID PRN for ELEVATED BLOOD PRESSURE, #60 TAB 03/29/19 Losartan Potassium* (Losartan Potassium*) 100 Mg Tablet, 100 MG GTB DAILY, TAB 03/29/19 Metoprolol Succinate* (Toprol XL*) 25 Mg Tab.sr.24h, 25 MG GTB DAILY, #30 TAB 03/29/19 Linagliptin (TRADJENTA) 5 Mg Tablet, 5 MG GTB DAILY, TAB 03/29/19 Albuterol Sulfate* (Proair HFA*) 8.5 Gm Hfa.aer.ad, 2 PUFF INH Q4H PRN for WHEEZING AND SOB, #1 INHALER 03/29/19 Ranitidine Hcl* (Ranitidine Hcl*) 300 Mg Tablet, 300 MG GTB HS, #30 TAB 03/29/19 Levetiracetam* (Keppra*) 500 Mg Tablet, 500 MG GTB BID, TAB 03/29/19 Gabapentin* (Gabapentin*) 100 Mg Capsule, 100 MG GTB QHS, #90 CAP 03/29/19 Doxazosin Mesylate* (Doxazosin Mesylate*) 2 Mg Tablet, 2 MG GTB HS, TAB 03/29/19 Docusate Sodium* (Dok*) 100 Mg Tablet, 100 MG GTB BID, #60 CAP 03/29/19 Cyanocobalamin (Vitamin B-12) (Cyanocobalamin Injection) 1,000 Mcg/1 Ml Vial, 1000 MCG IJ EVERY MONDAY, VIAL 03/29/19 Clopidogrel Bisulfate (Clopidogrel) 75 Mg Tablet, 75 MG GTB DAILY, #30 TAB 03/29/19 Calcium Carbonate (Oysco-500) 500 Mg Tablet, 500 MG GTB DAILY, TAB 03/29/19 Baclofen* (Baclofen*) 10 Mg Tablet, 10 MG GTB BID, TAB 03/29/19 Atorvastatin* (Atorvastatin*) 40 Mg Tablet, 40 MG GTB QHS, #30 TAB 03/29/19 Aspirin (Low Dose Aspirin) 81 Mg Tablet.dr, 81 MG GTB DAILY, #30 TAB 03/29/19 Discontinued Reported Medications Quetiapine Fumarate* (Quetiapine Fumarate*) 25 Mg Tablet, 25 MG PO HS, TAB 01/21/19 Lorazepam* (Ativan*) 0.5 Mg Tablet, 0.5 MG PO DAILY, #30 TAB 01/19/19 Fluoxetine Hcl* (Fluoxetine Hcl*) 20 Mg Capsule, 20 MG PO DAILY, CAP 01/19/19 Linagliptin (TRADJENTA) 5 Mg Tablet, 5 MG PO DAILY, TAB 01/19/19 Qhkmbu-Eburdzrp-Phgksmh* (Sunil FRANK* 36,000) 36,000 L-114,000-180,000 Unit Capsu , 1 CAP PO WITH MEALS, CAP 01/19/19 Megestrol Acetate* (Megestrol Acetate*) 40 Mg Tablet, 40 MG PO BID, TAB 01/19/19 Clonidine HCl (Clonidine HCl ER) 0.1 Mg Tab.er.12h, 0.1 MG PO Q6 PRN for ELEVATED BLOOD PRESSURE, #30 TAB 01/19/19 Sertraline Hcl* (Sertraline Hcl*) 25 Mg Tablet, 25 MG PO BID, #30 TAB 01/19/19 Carvedilol* (Coreg*) 25 Mg Tablet, 25 MG PO BID, #60 TAB 01/19/19 Ranitidine Hcl (Ranitidine Hcl) 300 Mg Capsule, 300 MG PO HS, #30 CAP 01/19/19 Lubiprostone* (Amitiza*) 24 Mcg Capsule, 24 MCG PO BID, #60 CAP 01/19/19 Atorvastatin* (Atorvastatin*) 80 Mg Tablet, 80 MG PO QHS, #30 TAB 01/19/19 Levetiracetam* (Keppra*) 500 Mg Tablet, 500 MG PO BID, TAB 06/02/18 Paroxetine Hcl* (Paroxetine*) 10 Mg Tablet, 10 MG PO DAILY, TAB 05/19/17 Clopidogrel Bisulfate* (Clopidogrel Bisulfate*) 75 Mg Tablet, 75 MG PO DAILY, #30 TAB 05/19/17 Docusate Sodium* (Docusate Sodium*) 100 Mg Capsule, 100 MG PO BID, #60 CAP 05/19/17 Tramadol Hcl* (Ultram*) 50 Mg Tablet, 50 MG PO Q6H PRN for PAIN, TAB 05/19/17 Tamsulosin Hcl* (Tamsulosin Hcl*) 0.4 Mg Cap.er.24h, 0.4 MG PO DAILY, CAP 05/19/17 Ferrous Sulfate* (Ferrous Sulfate*) 325 Mg Tabec, 325 MG PO DAILY, TAB 05/19/17 Ergocalciferol (Vitamin D2) (VITAMIN D2) 50,000 Unit Capsule, 92443 UNIT PO, CAP 05/19/17 Famotidine* (Famotidine*) 40 Mg Tablet, 40 MG PO HS, TAB 10/18/15 Nitroglycerin* (Nitrostat*) 0.4 Mg Tab.subl, 0.4 MG SL Q5MIN PRN for CHEST PAIN, BOTTLE 10/18/15 Albuterol Sulfate* (Proair HFA*) 8.5 Gm Hfa.aer.ad, 2 PUFF INH Q4H PRN for WHEEZING AND SOB, #1 INHALER 10/18/15 Metformin Hcl (Glucophage) 500 Mg Tablet, 1000 MG PO BID, TAB 02/20/14 Aspirin Ec (Aspir 81) 81 Mg Tablet.dr, 81 MG PO DAILY 02/20/14 Gabapentin* (Gabapentin*) 300 Mg Capsule, 300 MG PO DAILY 02/02/13 Discontinued Scripts Losartan Potassium* (Cozaar*) 25 Mg Tablet, 25 MG PO DAILY, #30 TAB Prov:MARCELO SEALS 06/05/18 Ondansetron Hcl* (Zofran*) 4 Mg Tablet, 4 MG PO Q8H PRN for NAUSEA AND/OR VOMITING, #10 TAB Prov:RAFAEL POE 10/18/15 Current Medications IV Flush (NS 3 ml) 3 ml PER PROTOCOL IV ; Start 03/29/19 at 13:30 Ondansetron HCl (Zofran Inj) 4 mg Q6H PRN IV NAUSEA/VOMITING Last administered on 04/02/19at 14:58; Admin Dose 4 MG; Start 03/29/19 at 13:30 Acetaminophen (Tylenol Tab) 650 mg Q6H PRN PO .PAIN 1-3 OR TEMP Last ad ministered on 03/31/19at 05:48; Admin Dose 650 MG; Start 03/29/19 at 13:30 Pantoprazole (Protonix Iv) 40 mg BID@06,18 IV Last administered on 04/03/19at 05:31; Admin Dose 40 MG; Start 03/29/19 at 18:00 Levetiracetam 100 ml @ 400 mls/hr Q12 IVPB Last administered on 04/03/19at 08:47; Admin Dose 400 MLS/HR; Start 03/29/19 at 21:00 Hydralazine HCl (Apresoline) 10 mg Q4H PRN IV sbp >160 Last administered on 04/02/19at 15:15; Admin Dose 10 MG; Start 03/29/19 at 14:00 Miscellaneous Information 1 ea NOTE XX ; Start 03/29/19 at 14:30 Glucose (Glutose) 15 gm Q15M PRN PO DECREASED GLUCOSE; Start 03/29/19 at 14:30 Glucose (Glutose) 22.5 gm Q15M PRN PO DECREASED GLUCOSE; Start 03/29/19 at 14:30 Dextrose (D50w Syringe) 25 ml Q15M PRN IV DECREASED GLUCOSE; Start 03/29/19 at 14:30 Dextrose (D50w Syringe) 50 ml Q15M PRN IV DECREASED GLUCOSE; Start 03/29/19 at 14:30 Glucagon (Glucagen) 1 mg Q15M PRN IM DECREASED GLUCOSE; Start 03/29/19 at 14:30 Glucose (Glutose) 15 gm Q15M PRN BUCCAL DECREASED GLUCOSE; Start 03/29/19 at 14:30 Albumin Human 100 ml @ 100 mls/hr WITH DIALYSIS PRN IV SBP <90 DURING DIALYSIS; Start 03/29/19 at 17:00 Albuterol/ Ipratropium (Duoneb) 3 ml Q2H RESP THERAPY PRN HHN WHEEZING AND RESP DISTRESS Last administered on 04/01/19at 21:23; Admin Dose 3 ML; Start 03/29/19 at 18:00 Lorazepam (Ativan) 0.5 mg Q4H PRN IV AGITATION Last administered on 04/02/19at 03:55; Admin Dose 0.5 MG; Start 03/29/19 at 18:00 IV Flush (NS 10 ml) 10 ml Q8 PRN IV IV PROTOCOL; Start 03/29/19 at 18:00 Labetalol HCl (Labetalol) 10 mg Q4H PRN IV sbp >160; Start 03/30/19 at 09:00 Haloperidol (Haldol) 5 mg Q6H PRN IM agitation Last administered on 03/31/19at 00:10; Admin Dose 5 MG; Start 03/30/19 at 10:00 Heparin Sodium (Porcine) (Heparin (1000 Units/ml)) 3,200 unit AFTER DIALYSIS CATHETER Last administered on 04/01/19at 11:24; Admin Dose 3,200 UNIT; Start 03/30/19 at 17:00 Atorvastatin Calcium (Lipitor) 40 mg HS NGT Last administered on 04/02/19 20:56; Admin Dose 40 MG; Start 03/31/19 at 21:00 Baclofen (Lioresal) 10 mg BID GTB Last administered on 04/03/19 08:48; Admin Dose 10 MG; Start 03/31/19 at 21:00 Doxazosin Mesylate (Cardura) 2 mg DAILY NGT Last administered on 04/03/19 08:49; Admin Dose 2 MG; Start 03/31/19 at 14:30 Gabapentin (Neurontin) 100 mg QHS PO Last administered on 04/02/19 20:56; Admin Dose 100 MG; Start 03/31/19 at 21:00 Losartan Potassium (Cozaar) 100 mg DAILY NGT Last administered on 04/03/19 08:48; Admin Dose 100 MG; Start 03/31/19 at 14:30 Quetiapine Fumarate (Seroquel) 25 mg QHS NGT Last administered on 04/02/19 20:56; Admin Dose 25 MG; Start 03/31/19 at 21:00 Sertraline HCl (Zoloft) 25 mg HS NGT Last administered on 04/02/19 20:55; A dmin Dose 25 MG; Start 03/31/19 at 21:00 Acetaminophen (Tylenol Liquid) 650 mg Q4H PRN PEG MILD PAIN(1-3)OR ELEVATED TEMP Last administered on 03/31/19 16:31; Admin Dose 650 MG; Start 03/31/19 at 16:00 Diagnostic Test (Pha) (Accu-Chek) 1 ea 02 XX Last administered on 04/03/19 02:19; Admin Dose 1 EA; Start 04/03/19 at 02:00 Insulin Aspart (Novolog Insulin Pen) NOVOLOG *MILD* ALGORI... Q6 SC Last administered on 04/02/19 18:10; Admin Dose 1 UNIT; Start 04/02/19 at 12:00 Lactobacillus Acidophilus/ Rhamnosus (Culturelle) 1 cap TID GTB Last administered on 04/03/19 13:24; Admin Dose 1 CAP; Start 04/02/19 at 13:00 Carvedilol (Coreg) 25 mg BID NGT Last administered on 04/03/19 08:48; Admin Dose 25 MG; Start 6/25/19 at 21:00 Hydralazine HCl (Apresoline) 75 mg TID NGT Last administered on 04/03/19at 13:24; Admin Dose 75 MG; Start 04/02/19 at 21:00 Nifedipine (Procardia Xl) 30 mg DAILY PO Last administered on 04/03/19at 08:49; Admin Dose 30 MG; Start 04/03/19 at 09:00 Meds reviewed: Yes Allergies Coded Allergies: No Known Drug Allergies (Unverified Allergy, Unknown, 05/31/18) Allergies Reviewed: Yes Labs/Studies Labs Reviewed: Reviewed by anesthesiologist Result Diagram: 04/03/1928 04/03/19527 Laboratory Tests 04/03/19 05:28 test: N/A Pre-procedure Exam Last vitals Vital Signs Date Temp Pulse Resp B/P (MAP) Pulse Ox O2 O2 Flow FiO2 Time Delivery Rate 04/03/19 97.7 83 18 147/82 99 Nasal 2.0 14:57 (103) Cannula 04/02/19 31 01:29 Airway: Adequate mouth opening, Adequate thyromental dist Mallampati: Mallampati III Teeth: Normal Lung: Normal Heart: Normal ASA Physical Status ASA physical status: 4 Emergency: None Pre-operative Attestations Prior to commencing anesthesia and surgery, the patient was re-evaluated, there was verification of: *The patient's identity *The results of appropriate recent lab work and preoperative vital signs *The above evaluation not changing prior to induction *Anesthetic plan, risk benefits, alternative and complications discussed with patient/family; questions answered; patient/family understands, accepts and wishes to proceed. GALA GARCIA DO Apr 03, 2019 15:42
[2019-04-03] MEDS ORDERED: PROPOFOL 20 ML ONE (15:46)
[2019-04-03] MEDS ORDERED: PHENYLephrine (100 MCG/ML) 10ML SYG ONE (15:46)
[2019-04-03] MEDS ORDERED: MIDAZOLAM 1 MG/ML 2 ML INJ ONE (15:46)
[2019-04-03] MEDS ORDERED: PROPOFOL 200 MG INJ ONE (15:46)
[2019-04-03] MEDS ORDERED: LIDOCAINE 1% (MDV) 20 ML INJ ONE (15:46)
--- NOTE | 2019-04-03 15:53 | PN ---
Date/Time of Note Date/Time of Note DATE: 04/03/19 TIME: 15:49 Assessment/Plan VTE Prophylaxis Risk score (from Nsg)>0 risk: 5 SCD applied (from Ns): Yes Pharmacological prophylaxis: NA/contraindicated Pharm contraindication: bleeding Lines/Catheters IV Catheter Type (from Nrsg): permacath Urinary Cath still in place: No Assessment/Plan Assessment/Plan 1. Acute on chronic encephalopathy - still having moments of agitation and will change seroquel to BID. Important to d/c restraints prior to SNF placement - patient at baseline and remains calm - Neurology on board and appreciate recommendations. CT unrevealing - blood cultures negative and UA negative so no toxic source noted 2. Hypertensive emergency - Started on Nifedipine this am given still with elevated BP 3. Severe anemia - No active bleeding appreciated - colonoscopy scheduled for today - GI on board and appreciate recommendations 4. Leukocytosis- resolved - Cultures done - completed course of antibiotics 5. Dysphasia - PEG in place and on TF 6. End-stage renal disease on hemodialysis - Nephrology on board and appreciate consultation. Continue HD 7. Coronary artery disease status post CABG history - continue home medications - will need to hold aspirin and Plavix in setting of acute GI bleed. will restart after EGD/colonoscopy 8. Epilepsy - Continue Keppra IV 9. History of CVA with residual left-sided deficit and more recent CVA 1 month ago - Patient reportedly had a new stroke approximately 1 month ago at [facility] which is the cause of patient's current encephalopathic state - After speaking with daughter, appears this is patient's baseline after leaving [facility] proximally 1 week ago. Patient suffered CVA and subsequent long stay in the ICU which required intubation and PEG tube. Patient almost required tracheostomy however appear to have been able to be weaned off the ventilator. - Neurology consultation appreciated 10. BPH 11. Disposition - Colonoscopy today - will adjust Seroquel with goal to d/c restraints prior to d/c to SNF Result Diagram: 04/03/19 0528 04/03/19 0528 Results 24hrs Laboratory Tests Test 04/02/19 17:46 04/02/19 20:53 04/02/19 23:46 04/03/19 02:17 Bedside Glucose 149 118 112 100 Test 04/03/19 05:27 04/03/19 05:28 04/03/19 12:32 04/03/19 15:36 Bedside Glucose 105 102 99 White Blood Count 7.0 Red Blood Count 2.65 L Hemoglobin 8.3 L Hematocrit 26.4 L Mean Corpuscular 99.6 Volume Mean Corpuscular 31.3 Hemoglobin Mean Corpuscular 31.4 L Hemoglobin Concent Red Cell 16.4 H Distribution Width Platelet Count 224 Mean Platelet Volume 10.7 H Immature 0.300 Granulocytes % Neutrophils % 67.7 Lymphocytes % 14.3 L Monocytes % 6.3 Eosinophils % 10.5 H Basophils % 0.9 Nucleated Red Blood 0.0 Cells % Immature 0.020 Granulocytes # Neutrophils # 4.8 Lymphocytes # 1.0 Monocytes # 0.4 Eosinophils # 0.7 H Basophils # 0.1 Nucleated Red Blood 0.0 Cells # Sodium Level 142 Potassium Level 4.4 Chloride Level 103 Carbon Dioxide Level 29 Anion Gap 10 Blood Urea Nitrogen 26 H Creatinine 5.90 H Glucose Level 106 Calcium Level 8.8 Phosphorus Level 4.1 Magnesium Level 2.5 Albumin 2.8 L Subjective 24 Hr Interval Summary Free Text/Dictation Patient remains stable and in no acute distress. Sleeping this am and no noted overnight events. Plans for colonoscopy today. Exam/Review of Systems Exam Vitals Vital Signs Date Temp Pulse Resp B/P (MAP) Pulse Ox O2 O2 Flow FiO2 Time Delivery Rate 04/03/19 97.7 83 18 147/82 99 Nasal 2.0 14:57 (103) Cannula 04/02/19 31 01:29 Intake and Output 04/02/19 04/02/19 04/03/19 1414:59 22:59 06:59 IntakeIntake Total 425 ml 100 ml OutputOutput Total 700 ml 450 ml BalanceBalance 425 ml -600 ml -450 ml Exam General: no acute distress. resting comfortably Neck: Supple, nontender, midline Respiratory: Clear to auscultation bilaterally. no wheezing or rhonchi Cardiovascular: S1, S2, regular rate and rhythm. No obvious murmurs Gastrointestinal: soft, non-tender to palpation, nondistended, bowel sounds heard. Skin: No new skin lesions Results Results 24hrs Laboratory Tests Test 04/02/19 17:46 04/02/19 20:53 04/02/19 23:46 04/03/19 02:17 Bedside Glucose 149 118 112 100 Test 04/03/19 05:27 04/03/19 05:28 04/03/19 12:32 04/03/19 15:36 Bedside Glucose 105 102 99 White Blood Count 7.0 Red Blood Count 2.65 L Hemoglobin 8.3 L Hematocrit 26.4 L Mean Corpuscular 99.6 Volume Mean Corpuscular 31.3 Hemoglobin Mean Corpuscular 31.4 L Hemoglobin Concent Red Cell 16.4 H Distribution Width Platelet Count 224 Mean Platelet Volume 10.7 H Immature 0.300 Granulocytes % Neutrophils % 67.7 Lymphocytes % 14.3 L Monocytes % 6.3 Eosinophils % 10.5 H Basophils % 0.9 Nucleated Red Blood 0.0 Cells % Immature 0.020 Granulocytes # Neutrophils # 4.8 Lymphocytes # 1.0 Monocytes # 0.4 Eosinophils # 0.7 H Basophils # 0.1 Nucleated Red Blood 0.0 Cells # Sodium Level 142 Potassium Level 4.4 Chloride Level 103 Carbon Dioxide Level 29 Anion Gap 10 Blood Urea Nitrogen 26 H Creatinine 5.90 H Glucose Level 106 Calcium Level 8.8 Phosphorus Level 4.1 Magnesium Level 2.5 Albumin 2.8 L Medications Medication Current Medications IV Flush (NS 3 ml) 3 ml PER PROTOCOL IV ; Start 03/29/19 at 13:30 Ondansetron HCl (Zofran Inj) 4 mg Q6H PRN IV NAUSEA/VOMITING Last administered on 04/02/19at 14:58; Admin Dose 4 MG; Start 03/29/19 at 13:30 Acetaminophen (Tylenol Tab) 650 mg Q6H PRN PO .PAIN 1-3 OR TEMP Last administered on 03/31/19at 05:48; Admin Dose 650 MG; Start 03/29/19 at 13:30 Pantoprazole (Protonix Iv) 40 mg BID@06,18 IV Last administered on 04/03/19at 05:31; Admin Dose 40 MG; Start 03/29/19 at 18:00 Levetiracetam 100 ml @ 400 mls/hr Q12 IVPB Last administered on 04/03/19at 08:47; Admin Dose 400 MLS/HR; Start 03/29/19 at 21:00 Hydralazine HCl (Apresoline) 10 mg Q4H PRN IV sbp >160 Last administered on 04/02/19at 15:15; Admin Dose 10 MG; Start 03/29/19 at 14:00 Miscellaneous Information 1 ea NOTE XX ; Start 03/29/19 at 14:30 Glucose (Glutose) 15 gm Q15M PRN PO DECREASED GLUCOSE; Start 03/29/19 at 14:30 Glucose (Glutose) 22.5 gm Q15M PRN PO DECREASED GLUCOSE; Start 03/29/19 at 14:30 Dextrose (D50w Syringe) 25 ml Q15M PRN IV DECREASED GLUCOSE; Start 03/29/19 at 14:30 Dextrose (D50w Syringe) 50 ml Q15M PRN IV DECREASED GLUCOSE; Start 03/29/19 at 14:30 Glucagon (Glucagen) 1 mg Q15M PRN IM DECREASED GLUCOSE; Start 03/29/19 at 14:30 Glucose (Glutose) 15 gm Q15M PRN BUCCAL DECREASED GLUCOSE; Start 03/29/19 at 14:30 Albumin Human 100 ml @ 100 mls/hr WITH DIALYSIS PRN IV SBP <90 DURING DIALYSIS; Start 03/29/19 at 17:00 Albuterol/ Ipratropium (Duoneb) 3 ml Q2H RESP THERAPY PRN HHN WHEEZING AND RESP DISTRESS Last administered on 04/01/19at 21:23; Admin Dose 3 ML; Start 03/29/19 at 18:00 Lorazepam (Ativan) 0.5 mg Q4H PRN IV AGITATION Last administered on 04/02/19at 03:55; Admin Dose 0.5 MG; Start 03/29/19 at 18:00 IV Flush (NS 10 ml) 10 ml Q8 PRN IV IV PROTOCOL; Start 03/29/19 at 18:00 Labetalol HCl (Labetalol) 10 mg Q4H PRN IV sbp >160; Start 03/30/19 at 09:00 Haloperidol (Haldol) 5 mg Q6H PRN IM agitation Last administered on 03/31/19at 00:10; Admin Dose 5 MG; Start 03/30/19 at 10:00 Heparin Sodium (Porcine) (Heparin (1000 Units/ml)) 3,200 unit AFTER DIALYSIS CATHETER Last administered on 04/01/19at 11:24; Admin Dose 3,200 UNIT; Start 03/30/19 at 17:00 Atorvastatin Calcium (Lipitor) 40 mg HS NGT Last administered on 04/02/19at 20:56; Admin Dose 40 MG; Start 03/31/19 at 21:00 Baclofen (Lioresal) 10 mg BID GTB Last administered on 04/03/19 08:48; Admin Dose 10 MG; Start 03/31/19 at 21:00 Doxazosin Mesylate (Cardura) 2 mg DAILY NGT Last administered on 04/03/19 08:49; Admin Dose 2 MG; Start 03/31/19 at 14:30 Gabapentin (Neurontin) 100 mg QHS PO Last administered on 04/02/19 20:56; Admin Dose 100 MG; Start 03/31/19 at 21:00 Losartan Potassium (Cozaar) 100 mg DAILY NGT Last administered on 04/03/19 08:48; Admin Dose 100 MG; Start 03/31/19 at 14:30 Quetiapine Fumarate (Seroquel) 25 mg QHS NGT Last administered on 04/02/19 20:56; Admin Dose 25 MG; Start 03/31/19 at 21:00 Sertraline HCl (Zoloft) 25 mg HS NGT Last administered on 04/02/19 20:55; Admin Dose 25 MG; Start 03/31/19 at 21:00 Acetaminophen (Tylenol Liquid) 650 mg Q4H PRN PEG MILD PAIN(1-3)OR ELEVATED TEMP Last administered on 03/31/19 16:31; Admin Dose 650 MG; Start 03/31/19 at 16:00 Diagnostic Test (Pha) (Accu-Chek) 1 ea 02 XX Last administered on 04/03/19 02:19; Admin Dose 1 EA; Start 04/03/19 at 02:00 Insulin Aspart (Novolog Insulin Pen) NOVOLOG *MILD* ALGORI... Q6 SC Last administered on 04/02/19 18:10; Admin Dose 1 UNIT; Start 04/02/19 at 12:00 Lactobacillus Acidophilus/ Rhamnosus (Culturelle) 1 cap TID GTB Last administered on 04/03/19 13:24; Admin Dose 1 CAP; Start 04/02/19 at 13:00 Carvedilol (Coreg) 25 mg BID NGT Last administered on 04/03/19 08:48; Admin Dose 25 MG; Start 04/02/19 at 21:00 Hydralazine HCl (Apresoline) 75 mg TID NGT Last administered on 04/03/19at 1 3:24; Admin Dose 75 MG; Start 04/02/19 at 21:00 Nifedipine (Procardia Xl) 30 mg DAILY PO Last administered on 04/03/19at 08:49; Admin Dose 30 MG; Start 04/03/19 at 09:00 LILLIAN ZHANG MD Apr 03, 2019 15:53
[2019-04-03] MEDS ORDERED: EPHEDrine 25 MG/5 ML SYG ONE (16:23)
[2019-04-03] MEDS: ATORVASTATIN 40 MG TAB NGT SCH (20:15)
[2019-04-03] MEDS: SERTRALINE 50 MG TAB NGT SCH (20:15)
[2019-04-03] MEDS: GABAPENTIN 100 MG CAP PO SCH (20:15)
[2019-04-03] MEDS: QUETIAPINE 25 MG TAB NGT SCH (20:21)
[2019-04-03] MEDS: ALBUMIN HUMAN 25% 100 ML IV PRN (21:18)
[2019-04-03] MEDS: EPOETIN ALFA-EPBX (ESRD) 10,000 UNIT/ML VIAL SC SCH (21:45)
[2019-04-03] MEDS: HEPARIN 1000 UNITS/ML 10 ML INJ CATHETER SCH (22:47)
[2019-04-04] VITALS (12 sets, daily range): BP systolic 98–177; BP diastolic 54–91; PULSE 71–91; RESP 18–20
[2019-04-04] MEDS: ACCU-CHEK XX SCH (02:00)
[2019-04-04] MEDS: INSULIN ASPART [NOVOLOG] 3 ML PEN SC SCH ×5 (05:30→17:59)
[2019-04-04] MEDS: PANTOPRAZOLE 40 MG INJ IV SCH (05:30)
[2019-04-04] MEDS: LEVETIRACETAM 500 MG (PMX) 100 ML IVPB SCH (08:22)
[2019-04-04] MEDS: LACTOBACILLUS RHAMNOSUS CAP GTB SCH ×3 (08:23→21:00)
[2019-04-04] MEDS: DOXAZOSIN 2 MG TAB NGT SCH (08:26)
[2019-04-04] MEDS: QUETIAPINE 25 MG TAB NGT SCH ×2 (08:26→21:00)
[2019-04-04] MEDS: NIFEdipine (XL) 30 MG TAB PO SCH (08:27)
[2019-04-04] MEDS: LOSARTAN 50 MG TAB NGT SCH (08:27)
[2019-04-04] MEDS: BACLOFEN 10 MG TAB GTB SCH ×2 (08:27→21:01)
--- NOTE | 2019-04-04 09:32 | PN ---
Date/Time of Note Date/Time of Note DATE: 04/04/19 TIME: 09:32 Assessment/Plan VTE Prophylaxis Risk score (from Ns)>0 risk: 7 SCD applied (from [facility]): No SCD contraindicated: other (scds) Pharmacological prophylaxis: other (scds) Lines/Catheters IV Catheter Type (from [facility]): Permacath Urinary Cath still in place: No Assessment/Plan Hospital Course Assessment: Severe anemia- improved -EGD 04/03/2019 Moderate distal esophagitis. Gastrostomy tube in place. Gastritis rule out H. pylori infection. Biopsies obtained. Duodenitis. Colonoscopy 04/03/2019 8 sessile polyp in the cecum. Snared and retrieved. 6 mm sessile polyp ascending colon. Snared and retrieved. 6 mm sessile polyp sigmoid. Snared and retrieved. 20 mm sessile polyp sigmoid. Saline assisted lipectomy plus localization tattoo. Moderate-sized internal hemorrhoids. 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 -Replaced with 18 [place] gastrostomy tube Coronary artery disease status post CABG history Epilepsy BPH Plan: Review pathology Repeat colonoscopy in 6 months pending review of pathology Continue PPI therapy TF as tolerated Patient seen in collaboration with Dr. Sanders Subjective: Course reviewed with nursing staff Patient interviewed and examined All labs, imaging and other results reviewed Patient resting in bed, large residual this afternoon, TF currently on hold No over night events. Continue close observation PHYSICAL EXAMINATION: GENERAL: Well developed, well nourished, non-verbal SKIN: No lesions, g-tube in place NECK: Supple, no masses, thyroid normal CHEST: Inspection within normal limits. CARDIOVASCULAR: Heart: Regular rate and rhythm RESPIRATORY: Lungs clear to auscultation. GASTROINTESTINAL AND LIVER: Abdomen: Soft, non tenderness, non-distended, no hernias, no masses, no organomegaly, no ascites, no guarding, no rebound tenderness, normoactive bowel sounds. Rectal: Deferred. GENITOURINARY: [Male genitalia within normal limits. EXTREMITIES: No cyanosis, clubbing or edema. Result Diagram: 04/04/1925 04/04/1925 Results 24hrs Laboratory Tests Test 04/03/19 12:32 04/03/19 15:36 04/03/19 18:18 04/04/19 00:40 Bedside Glucose 102 99 99 114 Test 04/04/19 05:25 04/04/19 05:29 04/04/19 07:29 White Blood Count 6.6 Red Blood Count 2.90 L Hemoglobin 8.9 L Hematocrit 27.4 L Mean Corpuscular 94.5 Volume Mean Corpuscular 30.7 Hemoglobin Mean Corpuscular 32.5 Hemoglobin Concen t Red Cell 16.1 H Distribution Width Platelet Count 250 Mean Platelet 10.6 H Volume Immature 0.600 H Granulocytes % Neutrophils % 60.2 Lymphocytes % 19.3 Monocytes % 7.4 Eosinophils % 11.6 H Basophils % 0.9 Nucleated Red 0.0 Blood Cells % Immature 0.040 H Granulocytes # Neutrophils # 4.0 Lymphocytes # 1.3 Monocytes # 0.5 Eosinophils # 0.8 H Basophils # 0.1 Nucleated Red 0.0 Blood Cells # Sodium Level 140 Potassium Level 3.9 Chloride Level 103 Carbon Dioxide 29 Level Anion Gap 8 Blood Urea 19 Nitrogen Creatinine 4.80 #H Glucose Level 101 Calcium Level 8.6 Phosphorus Level 3.3 Magnesium Level 2.4 Albumin 2.9 L Bedside Glucose 108 Lab Scanned BLOOD TRANSFUSIO Report N Exam/Review of Systems Exam Vitals Vital Signs Date Temp Pulse Resp B/P (MAP) Pulse Ox O2 O2 Flow FiO2 Time Delivery Rate 04/04/19 98.4 84 176/83 64 Nasal 08:00 (114) Cannula 04/04/19 2.0 08:00 04/04/19 20 07:32 04/02/19 31 01:29 Intake and Output 04/03/19 04/03/19 04/04/19 1515:00 23:00 07:00 IntakeIntake Total 830 ml OutputOutput Total 800 ml 1740 ml BalanceBalance -800 ml -1740 ml 830 ml Results Results 24hrs Laboratory Tests Test 04/03/19 12:32 04/03/19 15:36 04/03/19 18:18 04/04/19 00:40 Bedside Glucose 102 99 99 114 Test 04/04/19 05:25 04/04/19 05:29 04/04/19 07:29 White Blood Count 6.6 Red Blood Count 2.90 L Hemoglobin 8.9 L Hematocrit 27.4 L Mean Corpuscular 94.5 Volume Mean Corpuscular 30.7 Hemoglobin Mean Corpuscular 32.5 Hemoglobin Concen t Red Cell 16.1 H Distribution Width Platelet Count 250 Mean Platelet 10.6 H Volume Immature 0.600 H Granulocytes % Neutrophils % 60.2 Lymphocytes % 19.3 Monocytes % 7.4 Eosinophils % 11.6 H Basophils % 0.9 Nucleated Red 0.0 Blood Cells % Immature 0.040 H Granulocytes # Neutrophils # 4.0 Lymphocytes # 1.3 Monocytes # 0.5 Eosinophils # 0.8 H Basophils # 0.1 Nucleated Red 0.0 Blood Cells # Sodium Level 140 Potassium Level 3.9 Chloride Level 103 Carbon Dioxide 29 Level Anion Gap 8 Blood Urea 19 Nitrogen Creatinine 4.80 #H Glucose Level 101 Calcium Level 8.6 Phosphorus Level 3.3 Magnesium Level 2.4 Albumin 2.9 L Bedside Glucose 108 Lab Scanned BLOOD TRANSFUSIO Report N Medications Medication Current Medications IV Flush (NS 3 ml) 3 ml PER PROTOCOL IV ; Start 03/29/19 at 13:30 Ondansetron HCl (Zofran Inj) 4 mg Q6H PRN IV NAUSEA/VOMITING Last administered on 04/02/19at 14:58; Admin Dose 4 MG; Start 03/29/19 at 13:30 Acetaminophen (Tylenol Tab) 650 mg Q6H PRN PO .PAIN 1-3 OR TEMP Last administered on 03/31/19at 05:48; Admin Dose 650 MG; Start 03/29/19 at 13:30 Pantoprazole (Protonix Iv) 40 mg BID@06,18 IV Last administered on 04/04/19at 05:30; Admin Dose 40 MG; Start 03/29/19 at 18:00 Levetiracetam 100 ml @ 400 mls/hr Q12 IVPB Last administered on 04/04/19 08:22; Admin Dose 400 MLS/HR; Start 03/29/19 at 21:00 Hydralazine HCl (Apresoline) 10 mg Q4H PRN IV sbp >160 Last administered on 04/02/19at 15:15; Admin Dose 10 MG; Start 03/29/19 at 14:00 Miscellaneous Information 1 ea NOTE XX ; Start 03/29/19 at 14:30 Glucose (Glutose) 15 gm Q15M PRN PO DECREASED GLUCOSE; Start 03/29/19 at 14:30 Glucose (Glutose) 22.5 gm Q15M PRN PO DECREASED GLUCOSE; Start 03/29/19 at 14:30 Dextrose (D50w Syringe) 25 ml Q15M PRN IV DECREASED GLUCOSE; Start 03/29/19 at 14:30 Dextrose (D50w Syringe) 50 ml Q15M PRN IV DECREASED GLUCOSE; Start 03/29/19 at 14:30 Glucagon (Glucagen) 1 mg Q15M PRN IM DECREASED GLUCOSE; Start 03/29/19 at 14:30 Glucose (Glutose) 15 gm Q15M PRN BUCCAL DECREASED GLUCOSE; Start 03/29/19 at 14:30 Albumin Human 100 ml @ 100 mls/hr WITH DIALYSIS PRN IV SBP <90 DURING DIALYSIS Last administered on 04/03/19at 21:18; Admin Dose 100 MLS/HR; Start 03/29/19 at 17:00 Albuterol/ Ipratropium (Duoneb) 3 ml Q2H RESP THERAPY PRN HHN WHEEZING AND RESP DISTRESS Last administered on 04/01/19at 21:23; Admin Dose 3 ML; Start 03/29/19 at 18:00 Lorazepam (Ativan) 0.5 mg Q4H PRN IV AGITATION Last administered on 04/02/19at 03:55; Admin Dose 0.5 MG; Start 03/29/19 at 18:00 IV Flush (NS 10 ml) 10 ml Q8 PRN IV IV PROTOCOL; Start 03/29/19 at 18:00 Labetalol HCl (Labetalol) 10 mg Q4H PRN IV sbp >160; Start 03/30/19 at 09:00 Haloperidol (Haldol) 5 mg Q6H PRN IM agitation Last administered on 03/31/19at 00:10; Admin Dose 5 MG; Start 03/30/19 at 10:00 Heparin Sodium (Porcine) (Heparin (1000 Units/ml)) 3,200 unit AFTER DIALYSIS CATHETER Last administered on 04/03/19at 22:47; Admin Dose 3,200 UNIT; Start 03/30/19 at 17:00 Atorvastatin Calcium (Lipitor) 40 mg HS NGT Last administered on 04/03/19at 20:15; Admin Dose 40 MG; Start 03/31/19 at 21:00 Baclofen (Lioresal) 10 mg BID GTB Last administered on 04/04/19 08:27; Admin D ose 10 MG; Start 03/31/19 at 21:00 Doxazosin Mesylate (Cardura) 2 mg DAILY NGT Last administered on 04/04/19 08:26; Admin Dose 2 MG; Start 03/31/19 at 14:30 Gabapentin (Neurontin) 100 mg QHS PO Last administered on 04/03/19 20:15; Admin Dose 100 MG; Start 03/31/19 at 21:00 Losartan Potassium (Cozaar) 100 mg DAILY NGT Last administered on 04/04/19 08:27; Admin Dose 100 MG; Start 03/31/19 at 14:30 Sertraline HCl (Zoloft) 25 mg HS NGT Last administered on 04/03/19 20:15; Admin Dose 25 MG; Start 03/31/19 at 21:00 Acetaminophen (Tylenol Liquid) 650 mg Q4H PRN PEG MILD PAIN(1-3)OR ELEVATED TEMP Last administered on 03/31/19 16:31; Admin Dose 650 MG; Start 03/31/19 at 16:00 Diagnostic Test (Pha) (Accu-Chek) 1 ea 02 XX Last administered on 04/03/19 02:19; Admin Dose 1 EA; Start 04/03/19 at 02:00 Insulin Aspart (Novolog Insulin Pen) NOVOLOG *MILD* ALGORI... Q6 SC Last administered on 04/02/19 18:10; Admin Dose 1 UNIT; Start 04/02/19 at 12:00 Lactobacillus Acidophilus/ Rhamnosus (Culturelle) 1 cap TID GTB Last administered on 04/04/19 08:23; Admin Dose 1 CAP; Start 04/02/19 at 13:00 Carvedilol (Coreg) 25 mg BID NGT Last administered on 04/04/19 08:26; Admin Dose 25 MG; Start 04/02/19 at 21:00 Hydralazine HCl (Apresoline) 75 mg TID NGT Last administered on 04/04/19 08:25 ; Admin Dose 75 MG; Start 04/02/19 at 21:00 Nifedipine (Procardia Xl) 30 mg DAILY PO Last administered on 04/04/19 08:27; Admin Dose 30 MG; Start 04/03/19 at 09:00 Quetiapine Fumarate (Seroquel) 25 mg BID NGT Last administered on 04/04/19 08:26; Admin Dose 25 MG; Start 04/03/19 at 21:00 Epoetin [place]-epbx (Retacrit (Esrd)) 10,000 unit MoWeFr@1700 SC Last administered on 04/03/19 21:45; Admin Dose 10,000 UNIT; Start 04/03/19 at 19:30 JUNE LEE Apr 04, 2019 09:32
[2019-04-04] MEDS: MULTIVIT/CA CARB/B CMPLX/FA TAB GTB SCH (11:48)
[2019-04-04] MEDS: ALBUTEROL 0.083% (NEB) 2.5 MG/3 ML AMP HHN SCH ×2 (14:36→20:03)
--- NOTE | 2019-04-04 15:37 | CONS ---
Assessment/Plan Assessment/Plan Assessment/Plan (Daily) 1. Acute enceophalkoapthy,possibly metabolic encephalopathy 2. acute Uremia due to missed HD - now resolved 3. ESRD on HD - MWF schedule at [facility] [place] 4. H/o CAD s/p CABG before 5. H/o CAD with previous recent stent placement in 09/2018 6. h/o HTN 7. H/o DM II 8. h/o HL 9. 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 H/o BPH 11. Anemia of ESRD -EGD 04/03/2019 Moderate distal esophagitis. Gastrostomy tube in place. Gastritis rule out H. pylori infection. Biopsies obtained. Duodenitis. Colonoscopy 04/03/2019 8 sessile polyp in the cecum. Snared and retrieved. 6 mm sessile polyp ascending colon. Snared and retrieved. 6 mm sessile polyp sigmoid. Snared and retrieved. 20 mm sessile polyp sigmoid. Saline assisted lipectomy plus localization tattoo. Moderate-sized internal hemorrhoids Plan: HD ordered for Monday, pt required Haldo and seroquel for agitation, BP controlled with Losartan 100mg po daily Coreg 25 BID, Nifedipine Xl 30mg po daily for better BP control Epogen 62598 units SQ MWF will continue pt on MWF schedule while being in hospital, HD ordered for today will follow up Consultation Date/Type/Reason Admit Date/Time Mar 29, 2019 at 13:16 Initial Consult Date 03/29/19 Type of Consult NEPHROLOGY Requesting Provider: STEWART WINTER Date/Time of Note DATE: 04/04/19 TIME: 15:37 Exam/Review of Systems Exam Vitals Vital Signs Date Temp Pulse Resp B/P (MAP) Pulse Ox O2 O2 Flow FiO2 Time Delivery Rate 04/04/19 98.0 75 20 129/65 98 Nasal 14:00 (86) Cannula 04/04/19 3.0 12:41 04/02/19 31 01:29 Intake and Output 04/03/19 04/03/19 04/04/19 1515:00 23:00 07:00 IntakeIntake Total 830 ml OutputOutput Total 800 ml 1740 ml BalanceBalance -800 ml -1740 ml 830 ml Exam Constitutional: alert, awake, not oriented, little agitated Respiratory: crackles/rales, diminished breath sounds Cardiovascular: regular rate and rhythm, nl pulses Gastrointestinal: soft, non-tender Musculoskeletal: swelling (1-2+pitting edema ) Extremities: normal pulses Neurological: Non focal Results Result Diagram: 04/04/19 0525 04/04/19 0525 Results 24hrs Laboratory Tests Test 04/03/19 18:18 04/04/19 00:40 04/04/19 05:25 04/04/19 05:29 Bedside Glucose 99 114 108 White Blood Count 6.6 Red Blood Count 2.90 L Hemoglobin 8.9 L Hematocrit 27.4 L Mean Corpuscular 94.5 Volume Mean Corpuscular 30.7 Hemoglobin Mean Corpuscular 32.5 Hemoglobin Concen t Red Cell 16.1 H Distribution Width Platelet Count 250 Mean Platelet 10.6 H Volume Immature 0.600 H Granulocytes % Neutrophils % 60.2 Lymphocytes % 19.3 Monocytes % 7.4 Eosinophils % 11.6 H Basophils % 0.9 Nucleated Red 0.0 Blood Cells % Immature 0.040 H Granulocytes # Neutrophils # 4.0 Lymphocytes # 1.3 Monocytes # 0.5 Eosinophils # 0.8 H Basophils # 0.1 Nucleated Red 0.0 Blood Cells # Sodium Level 140 Potassium Level 3.9 Chloride Level 103 Carbon Dioxide 29 Level Anion Gap 8 Blood Urea 19 Nitrogen Creatinine 4.80 #H Glucose Level 101 Calcium Level 8.6 Phosphorus Level 3.3 Magnesium Level 2.4 Albumin 2.9 L Test 04/04/19 07:29 04/04/19 11:46 Lab Scanned BLOOD TRANSFUSIO Report N Bedside Glucose 138 Medications Medication Current Medications IV Flush (NS 3 ml) 3 ml PER PROTOCOL IV ; Start 03/29/19 at 13:30 Ondansetron HCl (Zofran Inj) 4 mg Q6H PRN IV NAUSEA/VOMITING Last administered on 04/02/19at 14:58; Admin Dose 4 MG; Start 03/29/19 at 13:30 Acetaminophen (Tylenol Tab) 650 mg Q6H PRN PO .PAIN 1-3 OR TEMP Last administered on 03/31/19at 05:48; Admin Dose 650 MG; Start 03/29/19 at 13:30 Hydralazine HCl (Apresoline) 10 mg Q4H PRN IV sbp >160 Last administered on 04/02/19at 15:15; Admin Dose 10 MG; Start 03/29/19 at 14:00 Miscellaneous Information 1 ea NOTE XX ; Start 03/29/19 at 14:30 Glucose (Glutose) 15 gm Q15M PRN PO DECREASED GLUCOSE; Start 03/29/19 at 14:30 Glucose (Glutose) 22.5 gm Q15M PRN PO DECREASED GLUCOSE; Start 03/29/19 at 14:30 Dextrose (D50w Syringe) 25 ml Q15M PRN IV DECREASED GLUCOSE; Start 03/29/19 at 14:30 Dextrose (D50w Syringe) 50 ml Q15M PRN IV DECREASED GLUCOSE; Start 03/29/19 at 14:30 Glucagon (Glucagen) 1 mg Q15M PRN IM DECREASED GLUCOSE; Start 03/29/19 at 14:30 Glucose (Glutose) 15 gm Q15M PRN BUCCAL DECREASED GLUCOSE; Start 03/29/19 at 14:30 Albumin Human 100 ml @ 100 mls/hr WITH DIALYSIS PRN IV SBP <90 DURING DIALYSIS Last administered on 04/03/19at 21:18; Admin Dose 100 MLS/HR; Start 03/29/19 at 17:00 Albuterol/ Ipratropium (Duoneb) 3 ml Q2H RESP THERAPY PRN HHN WHEEZING AND RESP DISTRESS Last administered on 04/01/19at 21:23; Admin Dose 3 ML; Start 03/29/19 at 18:00 Lorazepam (Ativan) 0.5 mg Q4H PRN IV AGITATION Last administered on 04/02/19at 03:55; Admin Dose 0.5 MG; Start 03/29/19 at 18:00 IV Flush (NS 10 ml) 10 ml Q8 PRN IV IV PROTOCOL; Start 03/29/19 at 18:00 Labetalol HCl (Labetalol) 10 mg Q4H PRN IV sbp >160; Start 03/30/19 at 09:00 Haloperidol (Haldol) 5 mg Q6H PRN IM agitation Last administered on 03/31/19at 00:10; Admin Dose 5 MG; Start 03/30/19 at 10:00 Heparin Sodium (Porcine) (Heparin (1000 Units/ml)) 3,200 unit AFTER DIALYSIS CATHETER Last administered on 04/03/19at 22:47; Admin Dose 3,200 UNIT; Start 03/30/19 at 17:00 Atorvastatin Calcium (Lipitor) 40 mg HS NGT Last administered on 04/03/19 20:15; Admin Dose 40 MG; Start 03/31/19 at 21:00 Baclofen (Lioresal) 10 mg BID GTB Last administered on 04/04/19 08:27; Admin Dose 10 MG; Start 03/31/19 at 21:00 Doxazosin Mesylate (Cardura) 2 mg DAILY NGT Last administered on 04/04/19 08:26; Admin Dose 2 MG; Start 03/31/19 at 14:30 Gabapentin (Neurontin) 100 mg QHS PO Last administered on 04/03/19 20:15; Admin Dose 100 MG; Start 03/31/19 at 21:00 Losartan Potassium (Cozaar) 100 mg DAILY NGT Last administered on 04/04/19 08:27; Admin Dose 100 MG; Start 03/31/19 at 14:30 Sertraline HCl (Zoloft) 25 mg HS NGT Last administered on 04/03/19 20:15; Admin Dose 25 MG; Start 03/31/19 at 21:00 Acetaminophen (Tylenol Liquid) 650 mg Q4H PRN PEG MILD PAIN(1-3)OR ELEVATED TEMP Last administered on 03/31/19 16:31; Admin Dose 650 MG; Start 03/31/19 at 16:00 Diagnostic Test (Pha) (Accu-Chek) 1 ea 02 XX Last administered on 04/03/19 02:19; Admin Dose 1 EA; Start 04/03/19 at 02:00 Insulin Aspart (Novolog Insulin Pen) NOVOLOG *MILD* ALGORI... Q6 SC Last administered on 04/02/19 18:10; Admin Dose 1 UNIT; Start 04/02/19 at 12:00 Lactobacillus Acidophilus/ Rhamnosus (Culturelle) 1 cap TID GTB Last administered on 04/04/19 13:41; Admin Dose 1 CAP; Start 04/02/19 at 13:00 Carvedilol (Coreg) 25 mg BID NGT Last administered on 04/04/19 08:26; Admin Dose 25 MG; Start 04/02/19 at 21:00 Hydralazine HCl (Apresoline) 75 mg TID NGT Last administered on 04/04/19 08:25; Admin Dose 75 MG; Start 04/02/19 at 21:00 Nifedipine (Procardia Xl) 30 mg DAILY PO Last administered on 04/04/19at 08:27; Admin Dose 30 MG; Start 04/03/19 at 09:00 Quetiapine Fumarate (Seroquel) 25 mg BID NGT Last administered on 04/04/19at 08:26; Admin Dose 25 MG; Start 04/03/19 at 21:00 Epoetin [place]-epbx (Retacrit (Esrd)) 10,000 unit MoWeFr@1700 SC Last administered on 04/03/19at 21:45; Admin Dose 10,000 UNIT; Start 04/03/19 at 19:30 Lansoprazole (Prevacid) 30 mg BID@0600,1800 GTB ; Start 04/04/19 at 18:00 Levetiracetam (Keppra Liquid) 500 mg Q12 GTB ; Start 04/04/19 at 21:00 Multivit/Ca Carb/ B Cmplx/FA/Prenat (Karena-Geovanni) 1 tab DAILY GTB Last administered on 04/04/19at 11:48; Admin Dose 1 TAB; Start 04/04/19 at 11:30 Albuterol (Proventil 0.083% (Neb)) 2.5 mg Q6HWA RESP THERAPY HHN Last administered on 04/04/19at 14:36; Admin Dose 2.5 MG; Start 04/04/19 at 14:00 BETZAIDA YAÑEZ MD Apr 04, 2019 15:37
--- NOTE | 2019-04-04 16:12 | PN ---
Date/Time of Note Date/Time of Note DATE: 04/04/19 TIME: 16:06 Assessment/Plan VTE Prophylaxis Risk score (from Nsg)>0 risk: 6 SCD applied (from Ns): No SCD contraindicated: other Pharmacological prophylaxis: NA/contraindicated Pharm contraindication: bleeding Lines/Catheters IV [facility]from [facility] permacath Urinary Cath still in place: No Assessment/Plan Assessment/Plan 1. Acute on chronic encephalopathy- stable - Will continue adjusting Seroquel to keep patient calm but alert with goal to d/c restraints - patient at baseline and remains calm - Neurology on board and appreciate recommendations. CT unrevealing - blood cultures negative and UA negative so no toxic source noted 2. Hypertensive emergency - BP better controlled with addition of Nifedipine 3. Severe anemia- resolved - No active bleeding appreciated - EGD revealed moderate distal esophagitis and gastritis and duodenitis. Colonoscopy showed internal hemorrhoids - GI on board and appreciate recommendations - continue PPI 4. Leukocytosis- resolved - Cultures done - completed course of antibiotics 5. Dysphasia - PEG in place and on TF. Held this am due to high residual 6. End-stage renal disease on hemodialysis - Nephrology on board and appreciate consultation. Continue HD 7. Coronary artery disease status post CABG history - continue home medications - will restart aspirin and Plavix and monitor hgb 8. Epilepsy - Continue Keppra IV 9. History of CVA with residual left-sided deficit and more recent CVA 1 month ago - Patient reportedly had a new stroke approximately 1 month ago at [facility] which is the cause of patient's current encephalopathic state - After speaking with daughter, appears this is patient's baseline after leaving [facility] proximally 1 week ago. Patient suffered CVA and subsequent long stay in the ICU which required intubation and PEG tube. Patient almost required tracheostomy however appear to have been able to be weaned off the ventilator. - Neurology consultation appreciated 10. BPH 11. Disposition - Discussed with son will need to wean off restraints prior to d/c. requesting ARU but if not, refusing to go back to [facility] Result Diagram: 04/04/19 0525 04/04/19 0525 Results 24hrs Laboratory Tests Test 04/03/19 18:18 04/04/19 00:40 04/04/19 05:25 04/04/19 05:29 Bedside Glucose 99 114 108 White Blood Count 6.6 Red Blood Count 2.90 L Hemoglobin 8.9 L Hematocrit 27.4 L Mean Corpuscular 94.5 Volume Mean Corpuscular 30.7 Hemoglobin Mean Corpuscular 32.5 Hemoglobin Concen t Red Cell 16.1 H Distribution Width Platelet Count 250 Mean Platelet 10.6 H Volume Immature 0.600 H Granulocytes % Neutrophils % 60.2 Lymphocytes % 19.3 Monocytes % 7.4 Eosinophils % 11.6 H Basophils % 0.9 Nucleated Red 0.0 Blood Cells % Immature 0.040 H Granulocytes # Neutrophils # 4.0 Lymphocytes # 1.3 Monocytes # 0.5 Eosinophils # 0.8 H Basophils # 0.1 Nucleated Red 0.0 Blood Cells # Sodium Level 140 Potassium Level 3.9 Chloride Level 103 Carbon Dioxide 29 Level Anion Gap 8 Blood Urea 19 Nitrogen Creatinine 4.80 #H Glucose Level 101 Calcium Level 8.6 Phosphorus Level 3.3 Magnesium Level 2.4 Albumin 2.9 L Test 04/04/19 07:29 04/04/19 11:46 Lab Scanned BLOOD TRANSFUSIO Report N Bedside Glucose 138 Subjective 24 Hr Interval Summary Free Text/Dictation Patient remains calm and son at bedside. No acute distress. With high residual from NG tube and TF held Exam/Review of Systems Exam Vitals Vital Signs Date Temp Pulse Resp B/P (MAP) Pulse Ox O2 O2 Flow FiO2 Time Delivery Rate 04/04/19 80 16 98 Nasal 3.0 14:40 Cannula 04/04/19 98.0 129/65 14:00 (86) 04/02/19 31 01:29 Intake and Output 04/03/19 04/03/19 04/04/19 1515:00 23:00 07:00 IntakeIntake Total 830 ml OutputOutput Total 800 ml 1740 ml BalanceBalance -800 ml -1740 ml 830 ml Exam General: no acute distress. resting comfortably Neck: Supple, nontender, midline Respiratory: Clear to auscultation bilaterally. no wheezing or rhonchi Cardiovascular: S1, S2, regular rate and rhythm. No obvious murmurs Gastrointestinal: soft, non-tender to palpation, nondistended, bowel sounds heard. Skin: No new skin lesions Results Results 24hrs Laboratory Tests Test 04/03/19 18:18 04/04/19 00:40 04/04/19 05:25 04/04/19 05:29 Bedside Glucose 99 114 108 White Blood Count 6.6 Red Blood Count 2.90 L Hemoglobin 8.9 L Hematocrit 27.4 L Mean Corpuscular 94.5 Volume Mean Corpuscular 30.7 Hemoglobin Mean Corpuscular 32.5 Hemoglobin Concen t Red Cell 16.1 H Distribution Width Platelet Count 250 Mean Platelet 10.6 H Volume Immature 0.600 H Granulocytes % Neutrophils % 60.2 Lymphocytes % 19.3 Monocytes % 7.4 Eosinophils % 11.6 H Basophils % 0.9 Nucleated Red 0.0 Blood Cells % Immature 0.040 H Granulocytes # Neutrophils # 4.0 Lymphocytes # 1.3 Monocytes # 0.5 Eosinophils # 0.8 H Basophils # 0.1 Nucleated Red 0.0 Blood Cells # Sodium Level 140 Potassium Level 3.9 Chloride Level 103 Carbon Dioxide 29 Level Anion Gap 8 Blood Urea 19 Nitrogen Creatinine 4.80 #H Glucose Level 101 Calcium Level 8.6 Phosphorus Level 3.3 Magnesium Level 2.4 Albumin 2.9 L Test 04/04/19 07:29 04/04/19 11:46 Lab Scanned BLOOD TRANSFUSIO Report N Bedside Glucose 138 Medications Medication Current Medications IV Flush (NS 3 ml) 3 ml PER PROTOCOL IV ; Start 03/29/19 at 13:30 Ondansetron HCl (Zofran Inj) 4 mg Q6H PRN IV NAUSEA/VOMITING Last administered on 04/02/19at 14:58; Admin Dose 4 MG; Start 03/29/19 at 13:30 Acetaminophen (Tylenol Tab) 650 mg Q6H PRN PO .PAIN 1-3 OR TEMP Last administered on 03/31/19at 05:48; Admin Dose 650 MG; Start 03/29/19 at 13:30 Hydralazine HCl (Apresoline) 10 mg Q4H PRN IV sbp >160 Last administered on 04/02/19at 15:15; Admin Dose 10 MG; Start 03/29/19 at 14:00 Miscellaneous Information 1 ea NOTE XX ; Start 03/29/19 at 14:30 Glucose (Glutose) 15 gm Q15M PRN PO DECREASED GLUCOSE; Start 03/29/19 at 14:30 Glucose (Glutose) 22.5 gm Q15M PRN PO DECREASED GLUCOSE; Start 03/29/19 at 14:30 Dextrose (D50w Syringe) 25 ml Q15M PRN IV DECREASED GLUCOSE; Start 03/29/19 at 14:30 Dextrose (D50w Syringe) 50 ml Q15M PRN IV DECREASED GLUCOSE; Start 03/29/19 at 14:30 Glucagon (Glucagen) 1 mg Q15M PRN IM DECREASED GLUCOSE; Start 03/29/19 at 14:30 Glucose (Glutose) 15 gm Q15M PRN BUCCAL DECREASED GLUCOSE; Start 03/29/19 at 14:30 Albumin Human 100 ml @ 100 mls/hr WITH DIALYSIS PRN IV SBP <90 DURING DIALYSIS Last administered on 04/03/19at 21:18; Admin Dose 100 MLS/HR; Start 03/29/19 at 17:00 Albuterol/ Ipratropium (Duoneb) 3 ml Q2H RESP THERAPY PRN HHN WHEEZING AND RESP DISTRESS Last administered on 04/01/19at 21:23; Admin Dose 3 ML; Start 03/29/19 at 18:00 Lorazepam (Ativan) 0.5 mg Q4H PRN IV AGITATION Last administered on 04/02/19at 03:55; Admin Dose 0.5 MG; Start 03/29/19 at 18:00 IV Flush (NS 10 ml) 10 ml Q8 PRN IV IV PROTOCOL; Start 03/29/19 at 18:00 Labetalol HCl (Labetalol) 10 mg Q4H PRN IV sbp >160; Start 03/30/19 at 09:00 Haloperidol (Haldol) 5 mg Q6H PRN IM agitation Last administered on 03/31/19at 00:10; Admin Dose 5 MG; Start 03/30/19 at 10:00 Heparin Sodium (Porcine) (Heparin (1000 Units/ml)) 3,200 unit AFTER DIALYSIS CATHETER Last administered on 04/03/19at 22:47; Admin Dose 3,200 UNIT; Start 03/30/19 at 17:00 Atorvastatin Calcium (Lipitor) 40 mg HS NGT Last administered on 04/03/19at 20:15; Admin Dose 40 MG; Start 03/31/19 at 21:00 Baclofen (Lioresal) 10 mg BID GTB Last administered on 04/04/19at 08:27; Admin Dose 10 MG; Start 03/31/19 at 21:00 Doxazosin Mesylate (Cardura) 2 mg DAILY NGT Last administered on 04/04/19 08:26; Admin Dose 2 MG; Start 03/31/19 at 14:30 Gabapentin (Neurontin) 100 mg QHS PO Last administered on 04/03/19 20:15; Admin Dose 100 MG; Start 03/31/19 at 21:00 Losartan Potassium (Cozaar) 100 mg DAILY NGT Last administered on 04/04/19 08:27; Admin Dose 100 MG; Start 03/31/19 at 14:30 Sertraline HCl (Zoloft) 25 mg HS NGT Last administered on 04/03/19 20:15; Admin Dose 25 MG; Start 03/31/19 at 21:00 Acetaminophen (Tylenol Liquid) 650 mg Q4H PRN PEG MILD PAIN(1-3)OR ELEVATED TEMP Last administered on 03/31/19 16:31; Admin Dose 650 MG; Start 03/31/19 at 16:00 Diagnostic Test (Pha) (Accu-Chek) 1 ea 02 XX Last administered on 04/03/19 02: 19; Admin Dose 1 EA; Start 04/03/19 at 02:00 Insulin Aspart (Novolog Insulin Pen) NOVOLOG *MILD* ALGORI... Q6 SC Last administered on 04/02/19 18:10; Admin Dose 1 UNIT; Start 04/02/19 at 12:00 Lactobacillus Acidophilus/ Rhamnosus (Culturelle) 1 cap TID GTB Last administered on 04/04/19 13:41; Admin Dose 1 CAP; Start 04/02/19 at 13:00 Carvedilol (Coreg) 25 mg BID NGT Last administered on 04/04/19 08:26; Admin Dose 25 MG; Start 04/02/19 at 21:00 Hydralazine HCl (Apresoline) 75 mg TID NGT Last administered on 04/04/19 08:25; Admin Dose 75 MG; Start 04/02/19 at 21:00 Nifedipine (Procardia Xl) 30 mg DAILY PO Last administered on 04/04/19 08:27; Admin Dose 30 MG; Start 04/03/19 at 09:00 Quetiapine Fumarate (Seroquel) 25 mg BID NGT Last administered on 04/04/19 08:26; Admin Dose 25 MG; Start 04/03/19 at 21:00 Epoetin [place]-epbx (Retacrit (Esrd)) 10,000 unit MoWeFr@1700 SC Last admin istered on 04/03/19at 21:45; Admin Dose 10,000 UNIT; Start 04/03/19 at 19:30 Lansoprazole (Prevacid) 30 mg BID@0600,1800 GTB ; Start 04/04/19 at 18:00 Levetiracetam (Keppra Liquid) 500 mg Q12 GTB ; Start 04/04/19 at 21:00 Multivit/Ca Carb/ B Cmplx/FA/Prenat (Karena-Geovanni) 1 tab DAILY GTB Last administe red on 04/04/19at 11:48; Admin Dose 1 TAB; Start 04/04/19 at 11:30 Albuterol (Proventil 0.083% (Neb)) 2.5 mg Q6HWA RESP THERAPY HHN Last administered on 04/04/19at 14:36; Admin Dose 2.5 MG; Start 04/04/19 at 14:00 LILLIAN ZHANG MD Apr 04, 2019 16:12
[2019-04-04] MEDS: LANSOPRAZOLE 30 MG CAP GTB SCH (17:28)
[2019-04-04] MEDS: LEVETIRACETAM (100 MG/ML) 5ML CUP GTB SCH (21:00)
[2019-04-04] MEDS ORDERED: LEVETIRACETAM (100 MG/ML) 5ML CUP GTB SCH (21:00)
[2019-04-04] MEDS: ATORVASTATIN 40 MG TAB NGT SCH (21:01)
[2019-04-04] MEDS: SERTRALINE 50 MG TAB NGT SCH (21:01)
[2019-04-04] MEDS: GABAPENTIN 100 MG CAP PO SCH (21:01)
[2019-04-05] VITALS (25 sets, daily range): BP systolic 94–158; BP diastolic 5–87; PULSE 64–88; RESP 16–22
[2019-04-05] MEDS: ACCU-CHEK XX SCH (00:36)
[2019-04-05] MEDS: INSULIN ASPART [NOVOLOG] 3 ML PEN SC SCH ×4 (05:47→17:57)
[2019-04-05] MEDS: LANSOPRAZOLE 30 MG CAP GTB SCH ×2 (05:59→17:57)
--- NOTE | 2019-04-05 07:36 | CONS ---
Assessment/Plan Assessment/Plan Assessment/Plan (Daily) 1. Acute enceophalkoapthy,possibly metabolic encephalopathy 2. acute Uremia due to missed HD - now resolved 3. ESRD on HD - MWF schedule at [facility] HD schlater 4. H/o CAD s/p CABG before 5. H/o CAD with previous recent stent placement in 09/2018 6. h/o HTN 7. H/o DM II 8. h/o HL 9. 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 H/o BPH 11. Anemia of ESRD -EGD 04/03/2019 Moderate distal esophagitis. Gastrostomy tube in place. Gastritis rule out H. pylori infection. Biopsies obtained. Duodenitis. Colonoscopy 04/03/2019 8 sessile polyp in the cecum. Snared and retrieved. 6 mm sessile polyp ascending colon. Snared and retrieved. 6 mm sessile polyp sigmoid. Snared and retrieved. 20 mm sessile polyp sigmoid. Saline assisted lipectomy plus localization tattoo. Moderate-sized internal hemorrhoids Plan: s/p HD today 3 L removed, pt required Haldo and seroquel for agitation, BP controlled with Losartan 100mg po daily Coreg 25 BID, Nifedipine Xl 30mg po daily for better BP control Epogen 74844 units SQ MWF will continue pt on MWF schedule while being in hospital, Next HD will be on Monday will follow up Consultation Date/Type/Reason Admit Date/Time Mar 29, 2019 at 13:16 Initial Consult Date 03/29/19 Type of Consult NEPHROLOGY Requesting Provider: STEWART WINTER Date/Time of Note DATE: 04/05/19 TIME: 07:36 24 HR Interval Summary Free Text/Dictation s/p HD today 3 L removed, BP stable Exam/Review of Systems Exam Vitals Vital Signs Date Temp Pulse Resp B/P (MAP) Pulse Ox O2 O2 Flow FiO2 Time Delivery Rate 04/05/19 98.5 77 22 158/78 97 Nasal 07:09 (104) Cannula 04/05/19 3.0 06:14 04/02/19 31 01:29 Intake and Output 04/04/19 04/04/19 04/05/19 1515:00 23:00 07:00 IntakeIntake Total 100 ml 400 ml 470 ml BalanceBalance 100 ml 400 ml 470 ml Exam Constitutional: alert, awake, not oriented, little agitated Respiratory: crackles/rales, diminished breath sounds Cardiovascular: regular rate and rhythm, nl pulses Gastrointestinal: soft, non-tender Musculoskeletal: swelling (1-2+pitting edema ) Extremities: normal pulses Neurological: Non focal Results Result Diagram: 04/05/19 0546 04/05/19 0546 Results 24hrs Laboratory Tests Test 04/04/19 11:46 04/04/19 17:26 04/05/19 00:34 04/05/19 05:35 Bedside Glucose 138 145 130 143 Test 04/05/19 05:46 White Blood Count 7.7 Red Blood Count 2.94 L Hemoglobin 8.9 L Hematocrit 27.6 L Mean Corpuscular 93.9 Volume Mean Corpuscular 30.3 Hemoglobin Mean Corpuscular 32.2 Hemoglobin Concent Red Cell 15.8 H Distribution Width Platelet Count 250 Mean Platelet Volume 10.3 Immature 1.800 H Granulocytes % Neutrophils % 66.6 Lymphocytes % 14.8 L Monocytes % 7.9 Eosinophils % 8.1 H Basophils % 0.8 Nucleated Red Blood 0.0 Cells % Immature 0.140 H Granulocytes # Neutrophils # 5.1 Lymphocytes # 1.1 Monocytes # 0.6 Eosinophils # 0.6 H Basophils # 0.1 Nucleated Red Blood 0.0 Cells # Sodium Level 139 Potassium Level 3.8 Chloride Level 101 Carbon Dioxide Level 27 Anion Gap 11 Blood Urea Nitrogen 26 H Creatinine 6.08 H Glucose Level 159 Calcium Level 8.9 Phosphorus Level 3.5 Magnesium Level 2.4 Albumin 2.9 L Medications Medication Current Medications IV Flush (NS 3 ml) 3 ml PER PROTOCOL IV ; Start 03/29/19 at 13:30 Ondansetron HCl (Zofran Inj) 4 mg Q6H PRN IV NAUSEA/VOMITING Last administered on 04/02/19at 14:58; Admin Dose 4 MG; Start 03/29/19 at 13:30 Acetaminophen (Tylenol Tab) 650 mg Q6H PRN PO .PAIN 1-3 OR TEMP Last administered on 03/31/19at 05:48; Admin Dose 650 MG; Start 03/29/19 at 13:30 Hydralazine HCl (Apresoline) 10 mg Q4H PRN IV sbp >160 Last administered on 04/02/19at 15:15; Admin Dose 10 MG; Start 03/29/19 at 14:00 Miscellaneous Information 1 ea NOTE XX ; Start 03/29/19 at 14:30 Glucose (Glutose) 15 gm Q15M PRN PO DECREASED GLUCOSE; Start 03/29/19 at 14:30 Glucose (Glutose) 22.5 gm Q15M PRN PO DECREASED GLUCOSE; Start 03/29/19 at 14:30 Dextrose (D50w Syringe) 25 ml Q15M PRN IV DECREASED GLUCOSE; Start 03/29/19 at 14:30 Dextrose (D50w Syringe) 50 ml Q15M PRN IV DECREASED GLUCOSE; Start 03/29/19 at 14:30 Glucagon (Glucagen) 1 mg Q15M PRN IM DECREASED GLUCOSE; Start 03/29/19 at 14:30 Glucose (Glutose) 15 gm Q15M PRN BUCCAL DECREASED GLUCOSE; Start 03/29/19 at 14:30 Albumin Human 100 ml @ 100 mls/hr WITH DIALYSIS PRN IV SBP <90 DURING DIALYSIS Last administered on 04/03/19at 21:18; Admin Dose 100 MLS/HR; Start 03/29/19 at 17:00 Albuterol/ Ipratropium (Duoneb) 3 ml Q2H RESP THERAPY PRN HHN WHEEZING AND RESP DISTRESS Last administered on 04/01/19at 21:23; Admin Dose 3 ML; Start 03/29/19 at 18:00 Lorazepam (Ativan) 0.5 mg Q4H PRN IV AGITATION Last administered on 04/02/19at 03:55; Admin Dose 0.5 MG; Start 03/29/19 at 18:00 IV Flush (NS 10 ml) 10 ml Q8 PRN IV IV PROTOCOL; Start 03/29/19 at 18:00 Labetalol HCl (Labetalol) 10 mg Q4H PRN IV sbp >160; Start 03/30/19 at 09:00 Haloperidol (Haldol) 5 mg Q6H PRN IM agitation Last administered on 03/31/19at 00:10; Admin Dose 5 MG; Start 03/30/19 at 10:00 Heparin Sodium (Porcine) (Heparin (1000 Units/ml)) 3,200 unit AFTER DIALYSIS CATHETER Last administered on 04/03/19at 22:47; Admin Dose 3,200 UNIT; Start 03/30/19 at 17:00 Atorvastatin Calcium (Lipitor) 40 mg HS NGT Last administered on 04/04/19 21:01; Admin Dose 40 MG; Start 03/31/19 at 21:00 Baclofen (Lioresal) 10 mg BID GTB Last administered on 04/04/19 21:01; Admin Dose 10 MG; Start 03/31/19 at 21:00 Doxazosin Mesylate (Cardura) 2 mg DAILY NGT Last administered on 04/04/19 08:26; Admin Dose 2 MG; Start 03/31/19 at 14:30 Gabapentin (Neurontin) 100 mg QHS PO Last administered on 04/04/19 21:01; Admin Dose 100 MG; Start 03/31/19 at 21:00 Losartan Potassium (Cozaar) 100 mg DAILY NGT Last administered on 04/04/19 08:27; Admin Dose 100 MG; Start 03/31/19 at 14:30 Sertraline HCl (Zoloft) 25 mg HS NGT Last administered on 04/04/19 21:01; Admin Dose 25 MG; Start 03/31/19 at 21:00 Acetaminophen (Tylenol Liquid) 650 mg Q4H PRN PEG MILD PAIN(1-3)OR ELEVATED TEMP Last administered on 03/31/19 16:31; Admin Dose 650 MG; Start 03/31/19 at 16:00 Diagnostic Test (Pha) (Accu-Chek) 1 ea 02 XX Last administered on 04/03/19 02:19; Admin Dose 1 EA; Start 04/03/19 at 02:00 Insulin Aspart (Novolog Insulin Pen) NOVOLOG *MILD* ALGORI... Q6 SC Last administered on 04/05/19 05:47; Admin Dose 1 UNIT; Start 04/02/19 at 12:00 Lactobacillus Acidophilus/ Rhamnosus (Culturelle) 1 cap TID GTB Last administered on 04/04/19 21:00; Admin Dose 1 CAP; Start 04/02/19 at 13:00 Carvedilol (Coreg) 25 mg BID NGT Last administered on 04/04/19 21:01; Admin Dose 25 MG; Start 04/02/19 at 21:00 Hydralazine HCl (Apresoline) 75 mg TID NGT Last administered on 04/04/19 21:00; Admin Dose 75 MG; Start 04/02/19 at 21:00 Nifedipine (Procardia Xl) 30 mg DAILY PO Last administered on 04/04/19 08:27; Admin Dose 30 MG; Start 04/03/19 at 09:00 Quetiapine Fumarate (Seroquel) 25 mg BID NGT Last administered on 04/04/19 21:00; Admin Dose 25 MG; Start 04/03/19 at 21:00 Epoetin [place]-epbx (Retacrit (Esrd)) 10,000 unit MoWeFr@1700 SC Last administered on 04/03/19 21:45; Admin Dose 10,000 UNIT; Start 04/03/19 at 19:30 Lansoprazole (Prevacid) 30 mg BID@0600,1800 GTB Last administered on 04/05/19 05:59; Admin Dose 30 MG; Start 04/04/19 at 18:00 Levetiracetam (Keppra Liquid) 500 mg Q12 GTB Last administered on 04/04/19at 21:00; Admin Dose 500 MG; Start 04/04/19 at 21:00 Multivit/Ca Carb/ B Cmplx/FA/Prenat (Karena-Geovanni) 1 tab DAILY GTB Last administered on 04/04/19 11:48; Admin Dose 1 TAB; Start 04/04/19 at 11:30 Albuterol (Proventil 0.083% (Neb)) 2.5 mg Q6HWA RESP THERAPY HHN Last administered on 04/04/19 20:03; Admin Dose 2.5 MG; Start 04/04/19 at 14:00 Aspirin (Aspirin) 81 mg DAILY PO ; Start 04/05/19 at 09:00 BETZAIDA YAÑEZ MD Apr 05, 2019 07:36
[2019-04-05] MEDS: ALBUTEROL 0.083% (NEB) 2.5 MG/3 ML AMP HHN SCH ×2 (08:33→15:06)
[2019-04-05] MEDS: HEPARIN 1000 UNITS/ML 10 ML INJ CATHETER SCH (11:04)
[2019-04-05] MEDS: ASPIRIN 81 MG TAB PO SCH (12:14)
[2019-04-05] MEDS: LEVETIRACETAM (100 MG/ML) 5ML CUP GTB SCH ×2 (12:14→22:46)
[2019-04-05] MEDS: BACLOFEN 10 MG TAB GTB SCH ×2 (12:15→22:49)
[2019-04-05] MEDS: MULTIVIT/CA CARB/B CMPLX/FA TAB GTB SCH (12:15)
[2019-04-05] MEDS: LACTOBACILLUS RHAMNOSUS CAP GTB SCH ×3 (12:15→22:47)
[2019-04-05] MEDS: LOSARTAN 50 MG TAB NGT SCH (12:16)
[2019-04-05] MEDS: NIFEdipine (XL) 30 MG TAB PO SCH (12:16)
[2019-04-05] MEDS: DOXAZOSIN 2 MG TAB NGT SCH (12:16)
[2019-04-05] MEDS: QUETIAPINE 25 MG TAB NGT SCH ×2 (12:17→22:48)
--- NOTE | 2019-04-05 14:57 | PN ---
Date/Time of Note Date/Time of Note DATE: 04/05/19 TIME: 14:54 Assessment/Plan VTE Prophylaxis Risk score (from Ns)>0 risk: 6 SCD applied (from Ns): No SCD contraindicated: other Pharmacological prophylaxis: NA/contraindicated Pharm contraindication: bleeding Lines/Catheters [facility] Permacath Urinary Cath still in place: No Assessment/Plan Assessment/Plan 1. Acute on chronic encephalopathy- stable - Will continue adjusting Seroquel to keep patient calm but alert with goal to d/c restraints - patient at baseline and remains calm - Neurology on board and appreciate recommendations. CT unrevealing - blood cultures negative and UA negative so no toxic source noted 2. Hypertensive emergency - BP better controlled 3. Severe anemia- resolved - No active bleeding appreciated - EGD revealed moderate distal esophagitis and gastritis and duodenitis. Colonoscopy showed internal hemorrhoids - GI on board and appreciate recommendations - continue PPI 4. Leukocytosis- resolved - Cultures done - completed course of antibiotics 5. Dysphasia - PEG in place and on TF 6. End-stage renal disease on hemodialysis - Nephrology on board and appreciate consultation. Continue HD 7. Coronary artery disease status post CABG history - continue home medications - will restart aspirin and Plavix and monitor hgb 8. Epilepsy - Continue Keppra IV 9. History of CVA with residual left-sided deficit and more recent CVA 1 month ago - Patient reportedly had a new stroke approximately 1 month ago at [facility] which is the cause of patient's current encephalopathic state - After speaking with daughter, appears this is patient's baseline after leaving [facility] proximally 1 week ago. Patient suffered CVA and subsequent long stay in the ICU which required intubation and PEG tube. Patient almost required tracheostomy however appear to have been able to be weaned off the ventilator. - Neurology consultation appreciated 10. BPH 11. Disposition - Remains medically stable. Goal to d/c restraints and CM on board for placement Result Diagram: 04/05/19 0546 04/05/19 0546 Results 24hrs Laboratory Tests Test 04/04/19 17:26 04/05/19 00:34 04/05/19 05:35 04/05/19 05:46 Bedside Glucose 145 130 143 White Blood Count 7.7 Red Blood Count 2.94 L Hemoglobin 8.9 L Hematocrit 27.6 L Mean Corpuscular 93.9 Volume Mean Corpuscular 30.3 Hemoglobin Mean Corpuscular 32.2 Hemoglobin Concent Red Cell 15.8 H Distribution Width Platelet Count 250 Mean Platelet Volume 10.3 Immature 1.800 H Granulocytes % Neutrophils % 66.6 Lymphocytes % 14.8 L Monocytes % 7.9 Eosinophils % 8.1 H Basophils % 0.8 Nucleated Red Blood 0.0 Cells % Immature 0.140 H Granulocytes # Neutrophils # 5.1 Lymphocytes # 1.1 Monocytes # 0.6 Eosinophils # 0.6 H Basophils # 0.1 Nucleated Red Blood 0.0 Cells # Sodium Level 139 Potassium Level 3.8 Chloride Level 101 Carbon Dioxide Level 27 Anion Gap 11 Blood Urea Nitrogen 26 H Creatinine 6.08 H Glucose Level 159 Calcium Level 8.9 Phosphorus Level 3.5 Magnesium Level 2.4 Albumin 2.9 L Test 04/05/19 12:13 Bedside Glucose 125 Subjective 24 Hr Interval Summary Free Text/Dictation Patient remains stable during dialysis. No acute overnight events. Exam/Review of Systems Exam Vitals Vital Signs Date Temp Pulse Resp B/P (MAP) Pulse Ox O2 O2 Flow FiO2 Time Delivery Rate 04/05/19 98.5 83 20 130/62 98 Nasal 14:07 (84) Cannula 04/05/19 4.0 08:36 04/02/19 31 01:29 Intake and Output 04/04/19 04/04/19 04/05/19 1515:00 23:00 07:00 IntakeIntake Total 100 ml 400 ml 470 ml BalanceBalance 100 ml 400 ml 470 ml Exam General: no acute distress. resting comfortably Neck: Supple, nontender, midline Respiratory: Clear to auscultation bilaterally. no wheezing or rhonchi Cardiovascular: S1, S2, regular rate and rhythm. No obvious murmurs Gastrointestinal: soft, non-tender to palpation, nondistended, bowel sounds heard. Skin: No new skin lesions Results Results 24hrs Laboratory Tests Test 04/04/19 17:26 04/05/19 00:34 04/05/19 05:35 04/05/19 05:46 Bedside Glucose 145 130 143 White Blood Count 7.7 Red Blood Count 2.94 L Hemoglobin 8.9 L Hematocrit 27.6 L Mean Corpuscular 93.9 Volume Mean Corpuscular 30.3 Hemoglobin Mean Corpuscular 32.2 Hemoglobin Concent Red Cell 15.8 H Distribution Width Platelet Count 250 Mean Platelet Volume 10.3 Immature 1.800 H Granulocytes % Neutrophils % 66.6 Lymphocytes % 14.8 L Monocytes % 7.9 Eosinophils % 8.1 H Basophils % 0.8 Nucleated Red Blood 0.0 Cells % Immature 0.140 H Granulocytes # Neutrophils # 5.1 Lymphocytes # 1.1 Monocytes # 0.6 Eosinophils # 0.6 H Basophils # 0.1 Nucleated Red Blood 0.0 Cells # Sodium Level 139 Potassium Level 3.8 Chloride Level 101 Carbon Dioxide Level 27 Anion Gap 11 Blood Urea Nitrogen 26 H Creatinine 6.08 H Glucose Level 159 Calcium Level 8.9 Phosphorus Level 3.5 Magnesium Level 2.4 Albumin 2.9 L Test 04/05/19 12:13 Bedside Glucose 125 Medications Medication Current Medications IV Flush (NS 3 ml) 3 ml PER PROTOCOL IV ; Start 03/29/19 at 13:30 Ondansetron HCl (Zofran Inj) 4 mg Q6H PRN IV NAUSEA/VOMITING Last administered on 04/02/19at 14:58; Admin Dose 4 MG; Start 03/29/19 at 13:30 Acetaminophen (Tylenol Tab) 650 mg Q6H PRN PO .PAIN 1-3 OR TEMP Last administered on 03/31/19at 05:48; Admin Dose 650 MG; Start 03/29/19 at 13:30 Hydralazine HCl (Apresoline) 10 mg Q4H PRN IV sbp >160 Last administered on 04/02/19at 15:15; Admin Dose 10 MG; Start 03/29/19 at 14:00 Miscellaneous Information 1 ea NOTE XX ; Start 03/29/19 at 14:30 Glucose (Glutose) 15 gm Q15M PRN PO DECREASED GLUCOSE; Start 03/29/19 at 14:30 Glucose (Glutose) 22.5 gm Q15M PRN PO DECREASED GLUCOSE; Start 03/29/19 at 14:30 Dextrose (D50w Syringe) 25 ml Q15M PRN IV DECREASED GLUCOSE; Start 03/29/19 at 14:30 Dextrose (D50w Syringe) 50 ml Q15M PRN IV DECREASED GLUCOSE; Start 03/29/19 at 14:30 Glucagon (Glucagen) 1 mg Q15M PRN IM DECREASED GLUCOSE; Start 03/29/19 at 14:30 Glucose (Glutose) 15 gm Q15M PRN BUCCAL DECREASED GLUCOSE; Start 03/29/19 at 14:30 Albumin Human 100 ml @ 100 mls/hr WITH DIALYSIS PRN IV SBP <90 DURING DIALYSIS Last administered on 04/03/19 21:18; Admin Dose 100 MLS/HR; Start 03/29/19 at 17:00 Albuterol/ Ipratropium (Duoneb) 3 ml Q2H RESP THERAPY PRN HHN WHEEZING AND RESP DISTRESS Last administered on 04/01/19 21:23; Admin Dose 3 ML; Start 03/29/19 at 18:00 Lorazepam (Ativan) 0.5 mg Q4H PRN IV AGITATION Last administered on 04/02/19 03:55; Admin Dose 0.5 MG; Start 03/29/19 at 18:00 IV Flush (NS 10 ml) 10 ml Q8 PRN IV IV PROTOCOL; Start 03/29/19 at 18:00 Labetalol HCl (Labetalol) 10 mg Q4H PRN IV sbp >160; Start 03/30/19 at 09:00 Haloperidol (Haldol) 5 mg Q6H PRN IM agitation Last administered on 03/31/19 00:10; Admin Dose 5 MG; Start 03/30/19 at 10:00 Heparin Sodium (Porcine) (Heparin (1000 Units/ml)) 3,200 unit AFTER DIALYSIS CATHETER Last administered on 04/05/19 11:04; Admin Dose 3,200 UNIT; Start 03/30/19 at 17:00 Atorvastatin Calcium (Lipitor) 40 mg HS NGT Last administered on 04/04/19 21:01; Admin Dose 40 MG; Start 03/31/19 at 21:00 Baclofen (Lioresal) 10 mg BID GTB Last administered on 04/05/19 12:15; Admin Dose 10 MG; Start 03/31/19 at 21:00 Doxazosin Mesylate (Cardura) 2 mg DAILY NGT Last administered on 04/05/19 12:16; Admin Dose 2 MG; Start 03/31/19 at 14:30 Gabapentin (Neurontin) 100 mg QHS PO Last administered on 04/04/19at 21:01; Admin Dose 100 MG; Start 03/31/19 at 21:00 Losartan Potassium (Cozaar) 100 mg DAILY NGT Last administered on 04/05/19 12:16; Admin Dose 100 MG; Start 03/31/19 at 14:30 Sertraline HCl (Zoloft) 25 mg HS NGT Last administered on 04/04/19 21:01; Admin Dose 25 MG; Start 03/31/19 at 21:00 Acetaminophen (Tylenol Liquid) 650 mg Q4H PRN PEG MILD PAIN(1-3)OR ELEVATED TEMP Last administered on 03/31/19 16:31; Admin Dose 650 MG; Start 03/31/19 at 16:00 Diagnostic Test (Pha) (Accu-Chek) 1 ea 02 XX Last administered on 04/03/19 02:19; Admin Dose 1 EA; Start 04/03/19 at 02:00 Insulin Aspart (Novolog Insulin Pen) NOVOLOG *MILD* ALGORI... Q6 SC Last administered on 04/05/19 05:47; Admin Dose 1 UNIT; Start 04/02/19 at 12:00 Lactobacillus Acidophilus/ Rhamnosus (Culturelle) 1 cap TID GTB Last administered on 04/05/19 13:01; Admin Dose 1 CAP; Start 04/02/19 at 13:00 Carvedilol (Coreg) 25 mg BID NGT Last administered on 04/05/19 12:15; Admin Dose 25 MG; Start 04/02/19 at 21:00 Hydralazine HCl (Apresoline) 75 mg TID NGT Last administered on 04/05/19 12:16; Admin Dose 75 MG; Start 04/02/19 at 21:00 Nifedipine (Procardia Xl) 30 mg DAILY PO Last administered on 04/05/19 12:16; Admin Dose 30 MG; Start 04/03/19 at 09:00 Quetiapine Fumarate (Seroquel) 25 mg BID NGT Last administered on 04/05/19 12:17; Admin Dose 25 MG; Start 04/03/19 at 21:00 Epoetin [place]-epbx (Retacrit (Esrd)) 10,000 unit MoWeFr@1700 SC Last administered on 04/03/19 21:45; Admin Dose 10,000 UNIT; Start 04/03/19 at 19:30 Lansoprazole (Prevacid) 30 mg BID@0600,1800 GTB Last administered on 04/05/19 05:59; Admin Dose 30 MG; Start 04/04/19 at 18:00 Levetiracetam (Keppra Liquid) 500 mg Q12 GTB Last administered on 04/05/19 12: 14; Admin Dose 500 MG; Start 04/04/19 at 21:00 Multivit/Ca Carb/ B Cmplx/FA/Prenat (Karena-Geovanni) 1 tab DAILY GTB Last administered on 04/05/19 12:15; Admin Dose 1 TAB; Start 04/04/19 at 11:30 Albuterol (Proventil 0.083% (Neb)) 2.5 mg Q6HWA RESP THERAPY HHN Last administered on 04/05/19 08:33; Admin Dose 2.5 MG; Start 04/04/19 at 14:00 Aspirin (Aspirin) 81 mg DAILY PO Last administered on 04/05/19 12:14; Admin Dose 81 MG; Start 04/05/19 at 09:00 LILLIAN ZHANG MD Apr 05, 2019 14:57
--- NOTE | 2019-04-05 17:23 | PN ---
Date/Time of Note Date/Time of Note DATE: 04/05/19 TIME: 17:16 Assessment/Plan VTE Prophylaxis Risk [place] [facility] [place] risk: 6 SCD applied ([place] [facility] [place] Yes Pharmacological prophylaxis: NA/contraindicated Pharm contraindication: bleeding Lines/Catheters IV Catheter Type (from [facility]): Permacath Urinary Cath still in place: No Assessment/Plan Assessment/Plan Assessment: Severe anemia- improved -EGD 04/03/2019 Moderate distal esophagitis. Gastrostomy tube in place. Gastritis -biopsies are negative for H. pylori. Duodenitis. Colonoscopy 04/03/2019 8 sessile polyp in the cecum. Snared and retrieved. -Tubular adenoma 6 mm sessile polyp ascending colon. Snared and retrieved. -Tubular adenoma 6 mm sessile polyp sigmoid. Snared and retrieved. -Tubular adenoma 20 mm sessile polyp sigmoid. Saline assisted lipectomy plus localization tattoo. Moderate-sized internal hemorrhoids. 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 -Replaced with 18 Welsh gastrostomy tube Coronary artery disease status post CABG history Epilepsy BPH Plan: Pathology is negative for H. pylori, colon polyps are tubular adenomas Repeat colonoscopy in 6 months pending review of pathology Continue PPI therapy TF as tolerated Patient seen in collaboration with Dr. Sanders Subjective: Course reviewed with nursing staff Patient interviewed and examined All labs, imaging and other results reviewed Patient resting in bed, hemoglobin is stable. Tube feeding was restarted at 30 cc/h. Tolerated well. No evidence of overt GI bleeding. Reviewed results of pathology. Recommend colonoscopy in 6 months for surveillance. Continue close observation PHYSICAL EXAMINATION: GENERAL: Well developed, well nourished, non-verbal SKIN: No lesions, g-tube in place NECK: Supple, no masses, thyroid normal CHEST: Inspection within normal limits. CARDIOVASCULAR: Heart: Regular rate and rhythm RESPIRATORY: Lungs clear to auscultation. GASTROINTESTINAL AND LIVER: Abdomen: Soft, non tenderness, G-tube in place, non- distended, no hernias, no masses, no organomegaly, no ascites, no guarding, no rebound tenderness, normoactive bowel sounds. Rectal: Deferred. GENITOURINARY: [Male genitalia within normal limits. EXTREMITIES: No cyanosis, clubbing or edema. Result Diagram: 04/05/19 0546 04/05/19 0546 Results 24hrs Laboratory Tests Test 04/04/19 17:26 04/05/19 00:34 04/05/19 05:35 04/05/19 05:46 Bedside Glucose 145 130 143 White Blood Count 7.7 Red Blood Count 2.94 L Hemoglobin 8.9 L Hematocrit 27.6 L Mean Corpuscular 93.9 Volume Mean Corpuscular 30.3 Hemoglobin Mean Corpuscular 32.2 Hemoglobin Concent Red Cell 15.8 H Distribution Width Platelet Count 250 Mean Platelet Volume 10.3 Immature 1.800 H Granulocytes % Neutrophils % 66.6 Lymphocytes % 14.8 L Monocytes % 7.9 Eosinophils % 8.1 H Basophils % 0.8 Nucleated Red Blood 0.0 Cells % Immature 0.140 H Granulocytes # Neutrophils # 5.1 Lymphocytes # 1.1 Monocytes # 0.6 Eosinophils # 0.6 H Basophils # 0.1 Nucleated Red Blood 0.0 Cells # Sodium Level 139 Potassium Level 3.8 Chloride Level 101 Carbon Dioxide Level 27 Anion Gap 11 Blood Urea Nitrogen 26 H Creatinine 6.08 H Glucose Level 159 Calcium Level 8.9 Phosphorus Level 3.5 Magnesium Level 2.4 Albumin 2.9 L Test 04/05/19 12:13 Bedside Glucose 125 CC: TREMAINE SANDERS MD ; Exam/Review of Systems Exam Vitals Vital Signs Date Temp Pulse Resp B/P (MAP) Pulse Ox O2 O2 Flow FiO2 Time Delivery Rate 04/05/19 85 20 98 Nasal 4.0 15:07 Cannula 04/05/19 98.5 130/62 14:07 (84) 04/02/19 31 01:29 Intake and Output 04/04/19 04/04/19 04/05/19 1414:59 22:59 06:59 IntakeIntake Total 100 ml 400 ml 470 ml BalanceBalance 100 ml 400 ml 470 ml Results Results 24hrs Laboratory Tests Test 04/04/19 17:26 04/05/19 00:34 04/05/19 05:35 04/05/19 05:46 Bedside Glucose 145 130 143 White Blood Count 7.7 Red Blood Count 2.94 L Hemoglobin 8.9 L Hematocrit 27.6 L Mean Corpuscular 93.9 Volume Mean Corpuscular 30.3 Hemoglobin Mean Corpuscular 32.2 Hemoglobin Concent Red Cell 15.8 H Distribution Width Platelet Count 250 Mean Platelet Volume 10.3 Immature 1.800 H Granulocytes % Neutrophils % 66.6 Lymphocytes % 14.8 L Monocytes % 7.9 Eosinophils % 8.1 H Basophils % 0.8 Nucleated Red Blood 0.0 Cells % Immature 0.140 H Granulocytes # Neutrophils # 5.1 Lymphocytes # 1.1 Monocytes # 0.6 Eosinophils # 0.6 H Basophils # 0.1 Nucleated Red Blood 0.0 Cells # Sodium Level 139 Potassium Level 3.8 Chloride Level 101 Carbon Dioxide Level 27 Anion Gap 11 Blood Urea Nitrogen 26 H Creatinine 6.08 H Glucose Level 159 Calcium Level 8.9 Phosphorus Level 3.5 Magnesium Level 2.4 Albumin 2.9 L Test 04/05/19 12:13 Bedside Glucose 125 Medications Medication Current Medications IV Flush (NS 3 ml) 3 ml PER PROTOCOL IV ; Start 03/29/19 at 13:30 Ondansetron HCl (Zofran Inj) 4 mg Q6H PRN IV NAUSEA/VOMITING Last administered on 04/02/19at 14:58; Admin Dose 4 MG; Start 03/29/19 at 13:30 Acetaminophen (Tylenol Tab) 650 mg Q6H PRN PO .PAIN 1-3 OR TEMP Last administered on 03/31/19at 05:48; Admin Dose 650 MG; Start 03/29/19 at 13:30 Hydralazine HCl (Apresoline) 10 mg Q4H PRN IV sbp >160 Last administered on 04/02/19at 15:15; Admin Dose 10 MG; Start 03/29/19 at 14:00 Miscellaneous Information 1 ea NOTE XX ; Start 03/29/19 at 14:30 Glucose (Glutose) 15 gm Q15M PRN PO DECREASED GLUCOSE; Start 03/29/19 at 14:30 Glucose (Glutose) 22.5 gm Q15M PRN PO DECREASED GLUCOSE; Start 03/29/19 at 14:30 Dextrose (D50w Syringe) 25 ml Q15M PRN IV DECREASED GLUCOSE; Start 03/29/19 at 14:30 Dextrose (D50w Syringe) 50 ml Q15M PRN IV DECREASED GLUCOSE; Start 03/29/19 at 14:30 Glucagon (Glucagen) 1 mg Q15M PRN IM DECREASED GLUCOSE; Start 03/29/19 at 14:30 Glucose (Glutose) 15 gm Q15M PRN BUCCAL DECREASED GLUCOSE; Start 03/29/19 at 14:30 Albumin Human 100 ml @ 100 mls/hr WITH DIALYSIS PRN IV SBP <90 DURING DIALYSIS Last administered on 04/03/19 21:18; Admin Dose 100 MLS/HR; Start 03/29/19 at 17:00 Albuterol/ Ipratropium (Duoneb) 3 ml Q2H RESP THERAPY PRN HHN WHEEZING AND RESP DISTRESS Last administered on 04/01/19 21:23; Admin Dose 3 ML; Start 03/29/19 at 18:00 Lorazepam (Ativan) 0.5 mg Q4H PRN IV AGITATION Last administered on 04/02/19 03:55; Admin Dose 0.5 MG; Start 03/29/19 at 18:00 IV Flush (NS 10 ml) 10 ml Q8 PRN IV IV PROTOCOL; Start 03/29/19 at 18:00 Labetalol HCl (Labetalol) 10 mg Q4H PRN IV sbp >160; Start 03/30/19 at 09:00 Haloperidol (Haldol) 5 mg Q6H PRN IM agitation Last administered on 03/31/19 00:10; Admin Dose 5 MG; Start 03/30/19 at 10:00 Heparin Sodium (Porcine) (Heparin (1000 Units/ml)) 3,200 unit AFTER DIALYSIS CATHETER Last administered on 04/05/19 11:04; Admin Dose 3,200 UNIT; Start 03/30/19 at 17:00 Atorvastatin Calcium (Lipitor) 40 mg HS NGT Last administered on 04/04/19 21:01; Admin Dose 40 MG; Start 03/31/19 at 21:00 Baclofen (Lioresal) 10 mg BID GTB Last administered on 04/05/19 12:15; Admin Dose 10 MG; Start 03/31/19 at 21:00 Doxazosin Mesylate (Cardura) 2 mg DAILY NGT Last administered on 04/05/19 12:16; Admin Dose 2 MG; Start 03/31/19 at 14:30 Gabapentin (Neurontin) 100 mg QHS PO Last administered on 04/04/19 21:01; Admin Dose 100 MG; Start 03/31/19 at 21:00 Losartan Potassium (Cozaar) 100 mg DAILY NGT Last administered on 04/05/19 12:16; Admin Dose 100 MG; Start 03/31/19 at 14:30 Sertraline HCl (Zoloft) 25 mg HS NGT Last administered on 04/04/19 21:01; Admin Dose 25 MG; Start 03/31/19 at 21:00 Acetaminophen (Tylenol Liquid) 650 mg Q4H PRN PEG MILD PAIN(1-3)OR ELEVATED TEMP Last administered on 03/31/19 16:31; Admin Dose 650 MG; Start 03/31/19 at 16:00 Diagnostic Test (Pha) (Accu-Chek) 1 ea 02 XX Last administered on 04/03/19 0 2:19; Admin Dose 1 EA; Start 04/03/19 at 02:00 Insulin Aspart (Novolog Insulin Pen) NOVOLOG *MILD* ALGORI... Q6 SC Last administered on 04/05/19 05:47; Admin Dose 1 UNIT; Start 04/02/19 at 12:00 Lactobacillus Acidophilus/ Rhamnosus (Culturelle) 1 cap TID GTB Last administered on 04/05/19 13:01; Admin Dose 1 CAP; Start 04/02/19 at 13:00 Carvedilol (Coreg) 25 mg BID NGT Last administered on 04/05/19 12:15; Admin Dose 25 MG; Start 04/02/19 at 21:00 Hydralazine HCl (Apresoline) 75 mg TID NGT Last administered on 04/05/19 12:16; Admin Dose 75 MG; Start 04/02/19 at 21:00 Nifedipine (Procardia Xl) 30 mg DAILY PO Last administered on 04/05/19 12:16; Admin Dose 30 MG; Start 04/03/19 at 09:00 Quetiapine Fumarate (Seroquel) 25 mg BID NGT Last administered on 04/05/19 12:17; Admin Dose 25 MG; Start 04/03/19 at 21:00 Epoetin [place]-epbx (Retacrit (Esrd)) 10,000 unit MoWeFr@1700 SC Last adm inistered on 04/03/19 21:45; Admin Dose 10,000 UNIT; Start 04/03/19 at 19:30 Lansoprazole (Prevacid) 30 mg BID@0600,1800 GTB Last administered on 04/05/19at 05:59; Admin Dose 30 MG; Start 04/04/19 at 18:00 Levetiracetam (Keppra Liquid) 500 mg Q12 GTB Last administered on 04/05/19 12:14; Admin Dose 500 MG; Start 04/04/19 at 21:00 Multivit/Ca Carb/ B Cmplx/FA/Prenat (Karena-Geovanni) 1 tab DAILY GTB Last administered on 04/05/19 12:15; Admin Dose 1 TAB; Start 04/04/19 at 11:30 Albuterol (Proventil 0.083% (Neb)) 2.5 mg Q6HWA RESP THERAPY HHN Last administered on 04/05/19 15:06; Admin Dose 2.5 MG; Start 04/04/19 at 14:00 Aspirin (Aspirin) 81 mg DAILY PO Last administered on 04/05/19at 12:14; Admin Dose 81 MG; Start 04/05/19 at 09:00 MIGUEL MAYO NP Apr 05, 2019 17:23
[2019-04-05] MEDS: EPOETIN ALFA-EPBX (ESRD) 10,000 UNIT/ML VIAL SC SCH (17:49)
[2019-04-05] MEDS: GABAPENTIN 100 MG CAP PO SCH (22:46)
[2019-04-05] MEDS: ATORVASTATIN 40 MG TAB NGT SCH (22:48)
[2019-04-05] MEDS: SERTRALINE 50 MG TAB NGT SCH (22:48)
[2019-04-06] VITALS (13 sets, daily range): BP systolic 89–162; BP diastolic 50–75; PULSE 61–78; RESP 18–20
[2019-04-06] MEDS: INSULIN ASPART [NOVOLOG] 3 ML PEN SC SCH ×4 (00:55→16:45)
[2019-04-06] MEDS: LANSOPRAZOLE 30 MG CAP GTB SCH ×2 (06:13→17:08)
[2019-04-06] MEDS: ALBUTEROL 0.083% (NEB) 2.5 MG/3 ML AMP HHN SCH ×3 (07:35→20:21)
[2019-04-06] MEDS: BACLOFEN 10 MG TAB GTB SCH ×2 (08:02→21:50)
[2019-04-06] MEDS: ASPIRIN 81 MG TAB PO SCH (08:02)
[2019-04-06] MEDS: MULTIVIT/CA CARB/B CMPLX/FA TAB GTB SCH (08:02)
[2019-04-06] MEDS: QUETIAPINE 25 MG TAB NGT SCH (08:03)
[2019-04-06] MEDS: LEVETIRACETAM (100 MG/ML) 5ML CUP GTB SCH ×2 (08:07→21:48)
[2019-04-06] MEDS: LACTOBACILLUS RHAMNOSUS CAP GTB SCH ×3 (08:08→21:48)
[2019-04-06] MEDS: DOXAZOSIN 2 MG TAB NGT SCH (08:08)
[2019-04-06] MEDS: LOSARTAN 50 MG TAB NGT SCH (08:09)
[2019-04-06] MEDS: NIFEdipine (XL) 30 MG TAB PO SCH (08:09)
--- NOTE | 2019-04-06 08:55 | CONS ---
Assessment/Plan Assessment/Plan Assessment/Plan (Daily) 1. Acute enceophalkoapthy,possibly metabolic encephalopathy 2. acute Uremia due to missed HD - now resolved 3. ESRD on HD - MWF schedule at [facility] [place] 4. H/o CAD s/p CABG before 5. H/o CAD with previous recent stent placement in 09/2018 6. h/o HTN 7. H/o DM II 8. h/o HL 9. 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 H/o BPH 11. Anemia of ESRD -EGD 04/03/2019 Moderate distal esophagitis. Gastrostomy tube in place. Gastritis rule out H. pylori infection. Biopsies obtained. Duodenitis. Colonoscopy 04/03/2019 8 sessile polyp in the cecum. Snared and retrieved. 6 mm sessile polyp ascending colon. Snared and retrieved. 6 mm sessile polyp sigmoid. Snared and retrieved. 20 mm sessile polyp sigmoid. Saline assisted lipectomy plus localization tattoo. Moderate-sized internal hemorrhoids Plan: s/p HD yesterday 3 L removed,- will continue pt on MWF schedule while being in hospital, Next HD will be on Monday BP controlled with Losartan 100mg po daily Coreg 25 BID, Nifedipine Xl 30mg po daily for better BP control Epogen 07331 units SQ MWF will follow up Consultation Date/Type/Reason Admit Date/Time Mar 29, 2019 at 13:16 Initial Consult Date 03/29/19 Type of Consult NEPHROLOGY Requesting Provider: STEWART WINTER Date/Time of Note DATE: 04/06/19 TIME: 08:55 Exam/Review of Systems Exam Vitals Vital Signs Date Temp Pulse Resp B/P (MAP) Pulse Ox O2 O2 Flow FiO2 Time Delivery Rate 04/06/19 98.0 76 20 114/59 97 Nasal 08:00 (77) Cannula 04/06/19 4.0 07:37 Intake and Output 04/05/19 04/05/19 04/06/19 1515:00 23:00 07:00 IntakeIntake Total 570 ml OutputOutput Total 3600 ml 0 ml BalanceBalance -3600 ml 570 ml Exam Constitutional: alert, awake, not oriented, little agitated Respiratory: crackles/rales, diminished breath sounds Cardiovascular: regular rate and rhythm, nl pulses Gastrointestinal: soft, non-tender Musculoskeletal: swelling (1-2+pitting edema ) Extremities: normal pulses Neurological: Non focal Results Result Diagram: 04/06/19 0547 04/06/19 0547 Results 24hrs Laboratory Tests Test 04/05/19 12:13 04/05/19 17:44 04/06/19 00:41 04/06/19 05:46 Bedside Glucose 125 158 161 152 Test 04/06/19 05:47 White Blood Count 6.4 Red Blood Count 3.00 L Hemoglobin 8.9 L Hematocrit 28.3 L Mean Corpuscular 94.3 Volume Mean Corpuscular 29.7 Hemoglobin Mean Corpuscular 31.4 L Hemoglobin Concent Red Cell 16.0 H Distribution Width Platelet Count 238 Mean Platelet Volume 10.4 Immature 2.700 H Granulocytes % Neutrophils % 61.0 Lymphocytes % 20.3 Monocytes % 8.8 Eosinophils % 6.4 Basophils % 0.8 Nucleated Red Blood 0.0 Cells % Immature 0.170 H Granulocytes # Neutrophils # 3.9 Lymphocytes # 1.3 Monocytes # 0.6 Eosinophils # 0.4 Basophils # 0.1 Nucleated Red Blood 0.0 Cells # Sodium Level 140 Potassium Level 3.9 Chloride Level 101 Carbon Dioxide Level 31 Anion Gap 8 Blood Urea Nitrogen 18 Creatinine 4.51 #H Glucose Level 163 Calcium Level 8.8 Phosphorus Level 3.1 Magnesium Level 2.3 Albumin 2.9 L Medications Medication Current Medications IV Flush (NS 3 ml) 3 ml PER PROTOCOL IV ; Start 03/29/19 at 13:30 Ondansetron HCl (Zofran Inj) 4 mg Q6H PRN IV NAUSEA/VOMITING Last administered on 04/02/19at 14:58; Admin Dose 4 MG; Start 03/29/19 at 13:30 Acetaminophen (Tylenol Tab) 650 mg Q6H PRN PO .PAIN 1-3 OR TEMP Last administered on 03/31/19at 05:48; Admin Dose 650 MG; Start 03/29/19 at 13:30 Hydralazine HCl (Apresoline) 10 mg Q4H PRN IV sbp >160 Last administered on 04/02/19at 15:15; Admin Dose 10 MG; Start 03/29/19 at 14:00 Miscellaneous Information 1 ea NOTE XX ; Start 03/29/19 at 14:30 Glucose (Glutose) 15 gm Q15M PRN PO DECREASED GLUCOSE; Start 03/29/19 at 14:30 Glucose (Glutose) 22.5 gm Q15M PRN PO DECREASED GLUCOSE; Start 03/29/19 at 14:30 Dextrose (D50w Syringe) 25 ml Q15M PRN IV DECREASED GLUCOSE; Start 03/29/19 at 14:30 Dextrose (D50w Syringe) 50 ml Q15M PRN IV DECREASED GLUCOSE; Start 03/29/19 at 14:30 Glucagon (Glucagen) 1 mg Q15M PRN IM DECREASED GLUCOSE; Start 03/29/19 at 14:30 Glucose (Glutose) 15 gm Q15M PRN BUCCAL DECREASED GLUCOSE; Start 03/29/19 at 14:30 Albumin Human 100 ml @ 100 mls/hr WITH DIALYSIS PRN IV SBP <90 DURING DIALYSIS Last administered on 04/03/19at 21:18; Admin Dose 100 MLS/HR; Start 03/29/19 at 17:00 Albuterol/ Ipratropium (Duoneb) 3 ml Q2H RESP THERAPY PRN HHN WHEEZING AND RESP DISTRESS Last administered on 04/01/19at 21:23; Admin Dose 3 ML; Start 03/29/19 at 18:00 Lorazepam (Ativan) 0.5 mg Q4H PRN IV AGITATION Last administered on 04/02/19at 03:55; Admin Dose 0.5 MG; Start 03/29/19 at 18:00 IV Flush (NS 10 ml) 10 ml Q8 PRN IV IV PROTOCOL; Start 03/29/19 at 18:00 Labetalol HCl (Labetalol) 10 mg Q4H PRN IV sbp >160; Start 03/30/19 at 09:00 Haloperidol (Haldol) 5 mg Q6H PRN IM agitation Last administered on 03/31/19at 00:10; Admin Dose 5 MG; Start 03/30/19 at 10:00 Heparin Sodium (Porcine) (Heparin (1000 Units/ml)) 3,200 unit AFTER DIALYSIS CATHETER Last administered on 04/05/19at 11:04; Admin Dose 3,200 UNIT; Start 03/30/19 at 17:00 Atorvastatin Calcium (Lipitor) 40 mg HS NGT Last administered on 04/05/19at 22:48; Admin Dose 40 MG; Start 03/31/19 at 21:00 Baclofen (Lioresal) 10 mg BID GTB Last administered on 04/06/19 08:02; Admin Dose 10 MG; Start 03/31/19 at 21:00 Doxazosin Mesylate (Cardura) 2 mg DAILY NGT Last administered on 04/06/19 08:08; Admin Dose 2 MG; Start 03/31/19 at 14:30 Gabapentin (Neurontin) 100 mg QHS PO Last administered on 04/05/19 22:46; Admin Dose 100 MG; Start 03/31/19 at 21:00 Losartan Potassium (Cozaar) 100 mg DAILY NGT Last administered on 04/06/19 08:09; Admin Dose 100 MG; Start 03/31/19 at 14:30 Sertraline HCl (Zoloft) 25 mg HS NGT Last administered on 04/05/19 22:48; Admin Dose 25 MG; Start 03/31/19 at 21:00 Acetaminophen (Tylenol Liquid) 650 mg Q4H PRN PEG MILD PAIN(1-3)OR ELEVATED TEMP Last administered on 03/31/19 16:31; Admin Dose 650 MG; Start 03/31/19 at 16:00 Insulin Aspart (Novolog Insulin Pen) NOVOLOG *MILD* ALGORI... Q6 SC Last administered on 04/06/19 06:01; Admin Dose 1 UNIT; Start 04/02/19 at 12:00 Lactobacillus Acidophilus/ Rhamnosus (Culturelle) 1 cap TID GTB Last administered on 04/06/19 08:08; Admin Dose 1 CAP; Start 04/02/19 at 13:00 Carvedilol (Coreg) 25 mg BID NGT Last administered on 04/06/19 08:08; Admin Dose 25 MG; Start 04/02/19 at 21:00 Hydralazine HCl (Apresoline) 75 mg TID NGT Last administered on 04/06/19 08:08; Admin Dose 75 MG; Start 04/02/19 at 21:00 Nifedipine (Procardia Xl) 30 mg DAILY PO Last administered on 04/06/19 08:09; Admin Dose 30 MG; Start 04/03/19 at 09:00 Quetiapine Fumarate (Seroquel) 25 mg BID NGT Last administered on 04/06/19 08:03; Admin Dose 25 MG; Start 04/03/19 at 21:00 Epoetin [place]-epbx (Retacrit (Esrd)) 10,000 unit MoWeFr@1700 SC Last administered on 04/05/19 17:49; Admin Dose 10,000 UNIT; Start 04/03/19 at 19:30 Lansoprazole (Prevacid) 30 mg BID@0600,1800 GTB Last administered on 04/06/19 06:13; Admin Dose 30 MG; Start 04/04/19 at 18:00 Levetiracetam (Keppra Liquid) 500 mg Q12 GTB Last administered on 04/06/19 08:07; Admin Dose 500 MG; Start 04/04/19 at 21:00 Multivit/Ca Carb/ B Cmplx/FA/Prenat (Karena-Geovanni) 1 tab DAILY GTB Last administered on 04/06/19 08:02; Admin Dose 1 TAB; Start 04/04/19 at 11:30 Albuterol (Proventil 0.083% (Neb)) 2.5 mg Q6HWA RESP THERAPY HHN Last administ ered on 04/06/19 07:35; Admin Dose 2.5 MG; Start 04/04/19 at 14:00 Aspirin (Aspirin) 81 mg DAILY PO Last administered on 04/06/19 08:02; Admin Dose 81 MG; Start 04/05/19 at 09:00 BETZAIDA YAÑEZ MD Apr 06, 2019 08:55
--- NOTE | 2019-04-06 12:25 | PN ---
Date/Time of Note Date/Time of Note DATE: 04/06/19 TIME: 12:25 Assessment/Plan VTE Prophylaxis Risk score (from Ns)>0 risk: 7 SCD applied (from Ns): No SCD contraindicated: other Pharmacological prophylaxis: NA/contraindicated Pharm contraindication: bleeding Lines/Catheters IV C[facility]ter Type [facility]from [facility] permacath Urinary Cath still in place: No Assessment/Plan Assessment/Plan 1. Acute on chronic encephalopathy- stable - still continues to try to get out of bed. Will increased Seroquel in am and monitor - patient at baseline and remains calm - Neurology on board and appreciate recommendations. CT unrevealing - blood cultures negative and UA negative so no toxic source noted 2. Hypertensive emergency - BP better controlled 3. Severe anemia- resolved - No active bleeding appreciated - EGD revealed moderate distal esophagitis and gastritis and duodenitis. Colonoscopy showed internal hemorrhoids - GI on board and appreciate recommendations - continue PPI 4. Leukocytosis- resolved - Cultures done - completed course of antibiotics 5. Dysphasia - PEG in place and on TF 6. End-stage renal disease on hemodialysis - Nephrology on board and appreciate consultation. Continue HD 7. Coronary artery disease status post CABG history - continue home medications - continue aspirin and will restart on Plavix 8. Epilepsy - Continue Keppra 9. History of CVA with residual left-sided deficit and more recent CVA 1 month ago - Patient reportedly had a new stroke approximately 1 month ago at [facility] which is the cause of patient's current encephalopathic state - After speaking with daughter, appears this is patient's baseline after leaving [facility] proximally 1 week ago. Patient suffered CVA and subsequent long stay in the ICU which required intubation and PEG tube. Patient almost required tracheostomy however appear to have been able to be weaned off the ventilator. - Neurology consultation appreciated 10. BPH 11. Disposition - Increased Seroquel dose in am with goal to wean off restraints. CM on board for placement Result Diagram: 04/06/19 0547 04/06/19 0547 Results 24hrs Laboratory Tests Test 04/05/19 17:44 04/06/19 00:41 04/06/19 05:46 04/06/19 05:47 Bedside Glucose 158 161 152 White Blood Count 6.4 Red Blood Count 3.00 L Hemoglobin 8.9 L Hematocrit 28.3 L Mean Corpuscular 94.3 Volume Mean Corpuscular 29.7 Hemoglobin Mean Corpuscular 31.4 L Hemoglobin Concent Red Cell 16.0 H Distribution Width Platelet Count 238 Mean Platelet Volume 10.4 Immature 2.700 H Granulocytes % Neutrophils % 61.0 Lymphocytes % 20.3 Monocytes % 8.8 Eosinophils % 6.4 Basophils % 0.8 Nucleated Red Blood 0.0 Cells % Immature 0.170 H Granulocytes # Neutrophils # 3.9 Lymphocytes # 1.3 Monocytes # 0.6 Eosinophils # 0.4 Basophils # 0.1 Nucleated Red Blood 0.0 Cells # Sodium Level 140 Potassium Level 3.9 Chloride Level 101 Carbon Dioxide Level 31 Anion Gap 8 Blood Urea Nitrogen 18 Creatinine 4.51 #H Glucose Level 163 Calcium Level 8.8 Phosphorus Level 3.1 Magnesium Level 2.3 Albumin 2.9 L Test 04/06/19 11:43 Bedside Glucose 169 Subjective 24 Hr Interval Summary Free Text/Dictation Patient remains calm this am and no acute distress noted. Discussed with nursing if remains calm will d/c restraints. Exam/Review of Systems Exam Vitals Vital Signs Date Temp Pulse Resp B/P (MAP) Pulse Ox O2 O2 Flow FiO2 Time Delivery Rate 04/06/19 98.0 70 18 135/67 96 12:00 (89) 04/06/19 Nasal 11:13 Cannula 04/06/19 4.0 07:37 Intake and Output 04/05/19 04/05/19 04/06/19 1515:00 23:00 07:00 IntakeIntake Total 570 ml OutputOutput Total 3600 ml 0 ml BalanceBalance -3600 ml 570 ml Exam General: no acute distress. resting comfortably Neck: Supple, nontender, midline Respiratory: Clear to auscultation bilaterally. no wheezing or rhonchi Cardiovascular: S1, S2, regular rate and rhythm. No obvious murmurs Gastrointestinal: soft, non-tender to palpation, nondistended, bowel sounds heard. Skin: No new skin lesions Results Results 24hrs Laboratory Tests Test 04/05/19 17:44 04/06/19 00:41 04/06/19 05:46 04/06/19 05:47 Bedside Glucose 158 161 152 White Blood Count 6.4 Red Blood Count 3.00 L Hemoglobin 8.9 L Hematocrit 28.3 L Mean Corpuscular 94.3 Volume Mean Corpuscular 29.7 Hemoglobin Mean Corpuscular 31.4 L Hemoglobin Concent Red Cell 16.0 H Distribution Width Platelet Count 238 Mean Platelet Volume 10.4 Immature 2.700 H Granulocytes % Neutrophils % 61.0 Lymphocytes % 20.3 Monocytes % 8.8 Eosinophils % 6.4 Basophils % 0.8 Nucleated Red Blood 0.0 Cells % Immature 0.170 H Granulocytes # Neutrophils # 3.9 Lymphocytes # 1.3 Monocytes # 0.6 Eosinophils # 0.4 Basophils # 0.1 Nucleated Red Blood 0.0 Cells # Sodium Level 140 Potassium Level 3.9 Chloride Level 101 Carbon Dioxide Level 31 Anion Gap 8 Blood Urea Nitrogen 18 Creatinine 4.51 #H Glucose Level 163 Calcium Level 8.8 Phosphorus Level 3.1 Magnesium Level 2.3 Albumin 2.9 L Test 04/06/19 11:43 Bedside Glucose 169 Medications Medication Current Medications IV Flush (NS 3 ml) 3 ml PER PROTOCOL IV ; Start 03/29/19 at 13:30 Ondansetron HCl (Zofran Inj) 4 mg Q6H PRN IV NAUSEA/VOMITING Last administered on 04/02/19at 14:58; Admin Dose 4 MG; Start 03/29/19 at 13:30 Acetaminophen (Tylenol Tab) 650 mg Q6H PRN PO .PAIN 1-3 OR TEMP Last administered on 03/31/19at 05:48; Admin Dose 650 MG; Start 03/29/19 at 13:30 Hydralazine HCl (Apresoline) 10 mg Q4H PRN IV sbp >160 Last administered on 04/02/19at 15:15; Admin Dose 10 MG; Start 03/29/19 at 14:00 Miscellaneous Information 1 ea NOTE XX ; Start 03/29/19 at 14:30 Glucose (Glutose) 15 gm Q15M PRN PO DECREASED GLUCOSE; Start 03/29/19 at 14:30 Glucose (Glutose) 22.5 gm Q15M PRN PO DECREASED GLUCOSE; Start 03/29/19 at 14:30 Dextrose (D50w Syringe) 25 ml Q15M PRN IV DECREASED GLUCOSE; Start 03/29/19 at 14:30 Dextrose (D50w Syringe) 50 ml Q15M PRN IV DECREASED GLUCOSE; Start 03/29/19 at 14:30 Glucagon (Glucagen) 1 mg Q15M PRN IM DECREASED GLUCOSE; Start 03/29/19 at 14:30 Glucose (Glutose) 15 gm Q15M PRN BUCCAL DECREASED GLUCOSE; Start 03/29/19 at 14:30 Albumin Human 100 ml @ 100 mls/hr WITH DIALYSIS PRN IV SBP <90 DURING DIALYSIS Last administered on 04/03/19 21:18; Admin Dose 100 MLS/HR; Start 03/29/19 at 17:00 Albuterol/ Ipratropium (Duoneb) 3 ml Q2H RESP THERAPY PRN HHN WHEEZING AND RESP DISTRESS Last administered on 04/01/19 21:23; Admin Dose 3 ML; Start 03/29/19 at 18:00 Lorazepam (Ativan) 0.5 mg Q4H PRN IV AGITATION Last administered on 04/02/19 03:55; Admin Dose 0.5 MG; Start 03/29/19 at 18:00 IV Flush (NS 10 ml) 10 ml Q8 PRN IV IV PROTOCOL; Start 03/29/19 at 18:00 Labetalol HCl (Labetalol) 10 mg Q4H PRN IV sbp >160; Start 03/30/19 at 09:00 Haloperidol (Haldol) 5 mg Q6H PRN IM agitation Last administered on 03/31/19 00:10; Admin Dose 5 MG; Start 03/30/19 at 10:00 Heparin Sodium (Porcine) (Heparin (1000 Units/ml)) 3,200 unit AFTER DIALYSIS CATHETER Last administered on 04/05/19 11:04; Admin Dose 3,200 UNIT; Start 03/30/19 at 17:00 Atorvastatin Calcium (Lipitor) 40 mg HS NGT Last administered on 04/05/19 22:48; Admin Dose 40 MG; Start 03/31/19 at 21:00 Baclofen (Lioresal) 10 mg BID GTB Last administered on 04/06/19 08:02; Admin Dose 10 MG; Start 03/31/19 at 21:00 Doxazosin Mesylate (Cardura) 2 mg DAILY NGT Last administered on 04/06/19 08:08; Admin Dose 2 MG; Start 03/31/19 at 14:30 Gabapentin (Neurontin) 100 mg QHS PO Last administered on 04/05/19 22:46; Admin Dose 100 MG; Start 03/31/19 at 21:00 Losartan Potassium (Cozaar) 100 mg DAILY NGT Last administered on 04/06/19 08:09; Admin Dose 100 MG; Start 03/31/19 at 14:30 Sertraline HCl (Zoloft) 25 mg HS NGT Last administered on 04/05/19 22:48; Admin Dose 25 MG; Start 03/31/19 at 21:00 Acetaminophen (Tylenol Liquid) 650 mg Q4H PRN PEG MILD PAIN(1-3)OR ELEVATED TEMP Last administered on 03/31/19 16:31; Admin Dose 650 MG; Start 03/31/19 at 16:00 Insulin Aspart (Novolog Insulin Pen) NOVOLOG *MILD* ALGORI... Q6 SC Last administered on 04/06/19 11:47; Admin Dose 1 UNIT; Start 04/02/19 at 12:00 Lactobacillus Acidophilus/ Rhamnosus (Culturelle) 1 cap TID GTB Last administered on 04/06/19 11:44; Admin Dose 1 CAP; Start 04/02/19 at 13:00 Carvedilol (Coreg) 25 mg BID NGT Last administered on 04/06/19 08:08; Admin Dose 25 MG; Start 04/02/19 at 21:00 Hydralazine HCl (Apresoline) 75 mg TID NGT Last administered on 04/06/19 08:08; Admin Dose 75 MG; Start 04/02/19 at 21:00 Nifedipine (Procardia Xl) 30 mg DAILY PO Last administered on 04/06/19 08:09; Admin Dose 30 MG; Start 04/03/19 at 09:00 Quetiapine Fumarate (Seroquel) 25 mg BID NGT Last administered on 04/06/19 08:03; Admin Dose 25 MG; Start 04/03/19 at 21:00 Epoetin [place]-epbx (Retacrit (Esrd)) 10,000 unit MoWeFr@1700 SC Last administered on 04/05/19 17:49; Admin Dose 10,000 UNIT; Start 04/03/19 at 19:30 Lansoprazole (Prevacid) 30 mg BID@0600,1800 GTB Last administered on 04/06/19 06:13; Admin Dose 30 MG; Start 04/04/19 at 18:00 Levetiracetam (Keppra Liquid) 500 mg Q12 GTB Last administered on 04/06/19 08:07; Admin Dose 500 MG; Start 04/04/19 at 21:00 Multivit/Ca Carb/ B Cmplx/FA/Prenat (Karena-Geovanni) 1 tab DAILY GTB Last administered on 04/06/19 08:02; Admin Dose 1 TAB; Start 04/04/19 at 11:30 Albuterol (Proventil 0.083% (Neb)) 2.5 mg Q6HWA RESP THERAPY HHN Last admini stered on 04/06/19 07:35; Admin Dose 2.5 MG; Start 04/04/19 at 14:00 Aspirin (Aspirin) 81 mg DAILY PO Last administered on 04/06/19 08:02; Admin Dose 81 MG; Start 04/05/19 at 09:00 LILLIAN ZHANG MD Apr 06, 2019 12:25
--- NOTE | 2019-04-06 16:11 | PN ---
Date/Time of Note Date/Time of Note DATE: 04/06/19 TIME: 16:03 Assessment/Plan VTE Prophylaxis Risk score (from [facility])>0 risk: 7 SCD applied (from [facility]): No SCD contraindicated: low risk/ambulating Pharmacological prophylaxis: NA/contraindicated Pharm contraindication: bleeding Lines/Catheters IV [facility]ter Type (from [facility]): permacath Urinary Cath still in place: No Assessment/Plan Assessment/Plan Assessment: Severe anemia- improved -EGD 04/03/2019 Moderate distal esophagitis. Gastrostomy tube in place. Gastritis -biopsies are negative for H. pylori. Duodenitis. Colonoscopy 04/03/2019 8 sessile polyp in the cecum. Snared and retrieved. -Tubular adenoma 6 mm sessile polyp ascending colon. Snared and retrieved. -Tubular adenoma 6 mm sessile polyp sigmoid. Snared and retrieved. -Tubular adenoma 20 mm sessile polyp sigmoid. Saline assisted lipectomy plus localization tattoo. Moderate-sized internal hemorrhoids. End-stage renal disease on hemodialysis Encephalopathy -/ multiple CVA's -Patient was recent at an outside hospital 2/2 to CVA- patient has been since Leukocytosis- resolved Dysphagia with gastrostomy tube -Patient pulled gastrostomy tube out this a.m. -Replaced with 18 [place] gastrostomy tube Coronary artery disease status post CABG history Epilepsy BPH Plan: Pathology is negative for H. pylori, colon polyps are tubular adenomas Repeat colonoscopy in 6 months pending review of pathology Continue PPI therapy TF as tolerated Will sign off for now, please call with any questions. Patient seen in collaboration with Dr. Sanders Subjective: Course reviewed with nursing staff Patient interviewed and examined All labs, imaging and other results reviewed Patient resting in bed, hemoglobin is stable. Tolerating enteral feedings well. No evidence of overt GI bleeding. Reviewed results of pathology. Recommend colonoscopy in 6 months for surveillance. Continue close observation PHYSICAL EXAMINATION: GENERAL: Well developed, well nourished, non-verbal SKIN: No lesions, g-tube in place NECK: Supple, no masses, thyroid normal CHEST: Inspection within normal limits. CARDIOVASCULAR: Heart: Regular rate and rhythm RESPIRATORY: Lungs clear to auscultation. GASTROINTESTINAL AND LIVER: Abdomen: Soft, non tenderness, G-tube in place, non- distended, no hernias, no masses, no organomegaly, no ascites, no guarding, no rebound tenderness, normoactive bowel sounds. Rectal: Deferred. GENITOURINARY: [Male genitalia within normal limits. EXTREMITIES: No cyanosis, clubbing or edema. Result Diagram: 04/06/19 0547 04/06/19 0547 Results 24hrs Laboratory Tests Test 04/05/19 17:44 04/06/19 00:41 04/06/19 05:46 04/06/19 05:47 Bedside Glucose 158 161 152 White Blood Count 6.4 Red Blood Count 3.00 L Hemoglobin 8.9 L Hematocrit 28.3 L Mean Corpuscular 94.3 Volume Mean Corpuscular 29.7 Hemoglobin Mean Corpuscular 31.4 L Hemoglobin Concent Red Cell 16.0 H Distribution Width Platelet Count 238 Mean Platelet Volume 10.4 Immature 2.700 H Granulocytes % Neutrophils % 61.0 Lymphocytes % 20.3 Monocytes % 8.8 Eosinophils % 6.4 Basophils % 0.8 Nucleated Red Blood 0.0 Cells % Immature 0.170 H Granulocytes # Neutrophils # 3.9 Lymphocytes # 1.3 Monocytes # 0.6 Eosinophils # 0.4 Basophils # 0.1 Nucleated Red Blood 0.0 Cells # Sodium Level 140 Potassium Level 3.9 Chloride Level 101 Carbon Dioxide Level 31 Anion Gap 8 Blood Urea Nitrogen 18 Creatinine 4.51 #H Glucose Level 163 Calcium Level 8.8 Phosphorus Level 3.1 Magnesium Level 2.3 Albumin 2.9 L Test 04/06/19 11:43 Bedside Glucose 169 CC: TREMAINE SANDERS MD ; Exam/Review of Systems Exam Vitals Vital Signs Date Temp Pulse Resp B/P (MAP) Pulse Ox O2 O2 Flow FiO2 Time Delivery Rate 04/06/19 73 19 98 Nasal 2.0 28 12:56 Cannula 04/06/19 98.0 135/67 12:00 (89) Intake and Output 04/05/19 04/05/19 04/06/19 1515:00 23:00 07:00 IntakeIntake Total 570 ml OutputOutput Total 3600 ml 0 ml BalanceBalance -3600 ml 570 ml Results Results 24hrs Laboratory Tests Test 04/05/19 17:44 04/06/19 00:41 04/06/19 05:46 04/06/19 05:47 Bedside Glucose 158 161 152 White Blood Count 6.4 Red Blood Count 3.00 L Hemoglobin 8.9 L Hematocrit 28.3 L Mean Corpuscular 94.3 Volume Mean Corpuscular 29.7 Hemoglobin Mean Corpuscular 31.4 L Hemoglobin Concent Red Cell 16.0 H Distribution Width Platelet Count 238 Mean Platelet Volume 10.4 Immature 2.700 H Granulocytes % Neutrophils % 61.0 Lymphocytes % 20.3 Monocytes % 8.8 Eosinophils % 6.4 Basophils % 0.8 Nucleated Red Blood 0.0 Cells % Immature 0.170 H Granulocytes # Neutrophils # 3.9 Lymphocytes # 1.3 Monocytes # 0.6 Eosinophils # 0.4 Basophils # 0.1 Nucleated Red Blood 0.0 Cells # Sodium Level 140 Potassium Level 3.9 Chloride Level 101 Carbon Dioxide Level 31 Anion Gap 8 Blood Urea Nitrogen 18 Creatinine 4.51 #H Glucose Level 163 Calcium Level 8.8 Phosphorus Level 3.1 Magnesium Level 2.3 Albumin 2.9 L Test 04/06/19 11:43 Bedside Glucose 169 Medications Medication Current Medications IV Flush (NS 3 ml) 3 ml PER PROTOCOL IV ; Start 03/29/19 at 13:30 Ondansetron HCl (Zofran Inj) 4 mg Q6H PRN IV NAUSEA/VOMITING Last administered on 04/02/19at 14:58; Admin Dose 4 MG; Start 03/29/19 at 13:30 Acetaminophen (Tylenol Tab) 650 mg Q6H PRN PO .PAIN 1-3 OR TEMP Last administered on 03/31/19at 05:48; Admin Dose 650 MG; Start 03/29/19 at 13:30 Hydralazine HCl (Apresoline) 10 mg Q4H PRN IV sbp >160 Last administered on 04/02/19at 15:15; Admin Dose 10 MG; Start 03/29/19 at 14:00 Miscellaneous Information 1 ea NOTE XX ; Start 03/29/19 at 14:30 Glucose (Glutose) 15 gm Q15M PRN PO DECREASED GLUCOSE; Start 03/29/19 at 14:30 Glucose (Glutose) 22.5 gm Q15M PRN PO DECREASED GLUCOSE; Start 03/29/19 at 14:30 Dextrose (D50w Syringe) 25 ml Q15M PRN IV DECREASED GLUCOSE; Start 03/29/19 at 14:30 Dextrose (D50w Syringe) 50 ml Q15M PRN IV DECREASED GLUCOSE; Start 03/29/19 at 14:30 Glucagon (Glucagen) 1 mg Q15M PRN IM DECREASED GLUCOSE; Start 03/29/19 at 14:30 Glucose (Glutose) 15 gm Q15M PRN BUCCAL DECREASED GLUCOSE; Start 03/29/19 at 14:30 Albumin Human 100 ml @ 100 mls/hr WITH DIALYSIS PRN IV SBP <90 DURING DIALYSIS Last administered on 04/03/19 21:18; Admin Dose 100 MLS/HR; Start 03/29/19 at 17:00 Albuterol/ Ipratropium (Duoneb) 3 ml Q2H RESP THERAPY PRN HHN WHEEZING AND RESP DISTRESS Last administered on 04/01/19 21:23; Admin Dose 3 ML; Start 03/29/19 at 18:00 Lorazepam (Ativan) 0.5 mg Q4H PRN IV AGITATION Last administered on 04/02/19 03:55; Admin Dose 0.5 MG; Start 03/29/19 at 18:00 IV Flush (NS 10 ml) 10 ml Q8 PRN IV IV PROTOCOL; Start 03/29/19 at 18:00 Labetalol HCl (Labetalol) 10 mg Q4H PRN IV sbp >160; Start 03/30/19 at 09:00 Haloperidol (Haldol) 5 mg Q6H PRN IM agitation Last administered on 03/31/19 00:10; Admin Dose 5 MG; Start 03/30/19 at 10:00 Heparin Sodium (Porcine) (Heparin (1000 Units/ml)) 3,200 unit AFTER DIALYSIS CATHETER Last administered on 04/05/19 11:04; Admin Dose 3,200 UNIT; Start 03/30/19 at 17:00 Atorvastatin Calcium (Lipitor) 40 mg HS NGT Last administered on 04/05/19 22:48; Admin Dose 40 MG; Start 03/31/19 at 21:00 Baclofen (Lioresal) 10 mg BID GTB Last administered on 04/06/19 08:02; Admin Dose 10 MG; Start 03/31/19 at 21:00 Doxazosin Mesylate (Cardura) 2 mg DAILY NGT Last administered on 04/06/19 08:08; Admin Dose 2 MG; Start 03/31/19 at 14:30 Gabapentin (Neurontin) 100 mg QHS PO Last administered on 04/05/19 22:46; Admin Dose 100 MG; Start 03/31/19 at 21:00 Losartan Potassium (Cozaar) 100 mg DAILY NGT Last administered on 04/06/19 08:09; Admin Dose 100 MG; Start 03/31/19 at 14:30 Sertraline HCl (Zoloft) 25 mg HS NGT Last administered on 04/05/19 22:48; Admin Dose 25 MG; Start 03/31/19 at 21:00 Acetaminophen (Tylenol Liquid) 650 mg Q4H PRN PEG MILD PAIN(1-3)OR ELEVATED TEMP Last administered on 03/31/19 16:31; Admin Dose 650 MG; Start 03/31/19 at 16:00 Insulin Aspart (Novolog Insulin Pen) NOVOLOG *MILD* ALGORI... Q6 SC Last administered on 04/06/19 11:47; Admin Dose 1 UNIT; Start 04/02/19 at 12:00 Lactobacillus Acidophilus/ Rhamnosus (Culturelle) 1 cap TID GTB Last administered on 04/06/19 11:44; Admin Dose 1 CAP; Start 04/02/19 at 13:00 Carvedilol (Coreg) 25 mg BID NGT Last administered on 04/06/19 08:08; Admin Dose 25 MG; Start 04/02/19 at 21:00 Hydralazine HCl (Apresoline) 75 mg TID NGT Last administered on 04/06/19 08:08; Admin Dose 75 MG; Start 04/02/19 at 21:00 Nifedipine (Procardia Xl) 30 mg DAILY PO Last administered on 04/06/19 08:09; Admin Dose 30 MG; Start 04/03/19 at 09:00 Epoetin [place]-epbx (Retacrit (Esrd)) 10,000 unit MoWeFr@1700 SC Last administered on 04/05/19 17:49; Admin Dose 10,000 UNIT; Start 04/03/19 at 19:30 Lansoprazole (Prevacid) 30 mg BID@0600,1800 GTB Last administered on 04/06/19 06:13; Admin Dose 30 MG; Start 04/04/19 at 18:00 Levetiracetam (Keppra Liquid) 500 mg Q12 GTB Last administered on 04/06/19 08:07; Admin Dose 500 MG; Start 04/04/19 at 21:00 Multivit/Ca Carb/ B Cmplx/FA/Prenat (Karena-Geovanni) 1 tab DAILY GTB Last administered on 04/06/19 08:02; Admin Dose 1 TAB; Start 04/04/19 at 11:30 Albuterol (Proventil 0.083% (Neb)) 2.5 mg Q6HWA RESP THERAPY HHN Last administered on 04/06/19 12:56; Admin Dose 2.5 MG; Start 04/04/19 at 14:00 Aspirin (Aspirin) 81 mg DAILY PO Last administered on 04/06/19 08:02; Admin Dose 81 MG; Start 04/05/19 at 09:00 Clopidogrel Bisulfate (plaVIX) 75 mg DAILY GTB ; Start 04/07/19 at 09:00 Quetiapine Fumarate (Seroquel) 50 mg DAILY GTB ; Start 04/07/19 at 09:00 Quetiapine Fumarate (Seroquel) 25 mg QHS GTB ; Start 04/06/19 at 21:00 RUBIA ANDRADE NP Apr 06, 2019 16:11
[2019-04-06] MEDS ORDERED: QUETIAPINE 25 MG TAB GTB SCH (21:00)
[2019-04-06] MEDS: ATORVASTATIN 40 MG TAB NGT SCH (21:48)
[2019-04-06] MEDS: GABAPENTIN 100 MG CAP PO SCH (21:48)
[2019-04-06] MEDS: SERTRALINE 50 MG TAB NGT SCH (21:49)
[2019-04-07] VITALS (19 sets, daily range): BP systolic 76–161; BP diastolic 41–86; PULSE 75–118; RESP 17–24
[2019-04-07] MEDS: LANSOPRAZOLE 30 MG CAP GTB SCH ×2 (06:03→17:04)
[2019-04-07] MEDS: INSULIN ASPART [NOVOLOG] 3 ML PEN SC SCH ×4 (06:06→16:58)
[2019-04-07] MEDS ORDERED: ETOMIDATE 20 MG INJ ONE (07:10)
[2019-04-07] MEDS ORDERED: SUCCINYLCHOLINE CHLORIDE 100 MG/5 ML SYG IV ONE (07:10)
--- NOTE | 2019-04-07 08:01 | CONS ---
Assessment/Plan Assessment/Plan Assessment/Plan (Daily) 1. Acute enceophalkoapthy,possibly metabolic encephalopathy 2. acute Uremia due to missed HD - now resolved 3. ESRD on HD - MWF schedule at [facility] [place] 4. H/o CAD s/p CABG before 5. H/o CAD with previous recent stent placement in 09/2018 6. h/o HTN 7. H/o DM II 8. h/o HL 9. 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 H/o BPH 11. Anemia of ESRD -EGD 04/03/2019 Moderate distal esophagitis. Gastrostomy tube in place. Gastritis rule out H. pylori infection. Biopsies obtained. Duodenitis. Colonoscopy 04/03/2019 8 sessile polyp in the cecum. Snared and retrieved. 6 mm sessile polyp ascending colon. Snared and retrieved. 6 mm sessile polyp sigmoid. Snared and retrieved. 20 mm sessile polyp sigmoid. Saline assisted lipectomy plus localization tattoo. Moderate-sized internal hemorrhoids Plan: HD ordered for Monday- will continue pt on MWF schedule while being in hospital BP controlled with Losartan 100mg po daily Coreg 25 BID, Nifedipine Xl 30mg po daily for better BP control Epogen 88802 units SQ MWF will follow up Consultation Date/Type/Reason Admit Date/Time Mar 29, 2019 at 13:16 Initial Consult Date 03/29/19 Type of Consult NEPHROLOGY Requesting Provider: STEWART WINTER Date/Time of Note DATE: 04/07/19 TIME: 08:01 Exam/Review of Systems Exam Vitals Vital Signs Date Temp Pulse Resp B/P (MAP) Pulse Ox O2 O2 Flow FiO2 Time Delivery Rate 04/07/19 Nasal 2.0 07:20 Cannula 04/07/19 97.5 83 143/67 98 04:00 (92) 04/07/19 18 00:00 04/06/19 28 12:56 Intake and Output 04/06/19 04/06/19 04/07/19 1515:00 23:00 07:00 IntakeIntake Total 720 ml OutputOutput Total 0 ml BalanceBalance 720 ml Exam Constitutional: alert, awake, not oriented, little agitated Respiratory: crackles/rales, diminished breath sounds Cardiovascular: regular rate and rhythm, nl pulses Gastrointestinal: soft, non-tender Musculoskeletal: swelling (1-2+pitting edema ) Extremities: normal pulses Neurological: Non focal Results Result Diagram: 04/07/19 0534 04/07/19 0534 Results 24hrs Laboratory Tests Test 04/06/19 11:43 04/06/19 16:35 04/07/19 05:34 04/07/19 06:02 Bedside Glucose 169 195 201 White Blood Count 9.5 # Red Blood Count 3.08 L Hemoglobin 9.3 L Hematocrit 28.9 L Mean Corpuscular 93.8 Volume Mean Corpuscular 30.2 Hemoglobin Mean Corpuscular 32.2 Hemoglobin Concent Red Cell 16.2 H Distribution Width Platelet Count 231 Mean Platelet Volume 10.4 Immature 2.100 H Granulocytes % Neutrophils % 70.9 Lymphocytes % 14.3 L Monocytes % 7.8 Eosinophils % 4.3 Basophils % 0.6 Nucleated Red Blood 0.0 Cells % Immature 0.200 H Granulocytes # Neutrophils # 6.7 Lymphocytes # 1.4 Monocytes # 0.7 Eosinophils # 0.4 Basophils # 0.1 Nucleated Red Blood 0.0 Cells # Sodium Level 139 Potassium Level 4.0 Chloride Level 100 Carbon Dioxide Level 32 H Anion Gap 7 Blood Urea Nitrogen 29 #H Creatinine 6.06 H Glucose Level 214 Calcium Level 9.2 Phosphorus Level 3.0 Magnesium Level 2.5 Albumin 3.2 L Medications Medication Current Medications IV Flush (NS 3 ml) 3 ml PER PROTOCOL IV ; Start 03/29/19 at 13:30 Ondansetron HCl (Zofran Inj) 4 mg Q6H PRN IV NAUSEA/VOMITING Last administered on 04/02/19at 14:58; Admin Dose 4 MG; Start 03/29/19 at 13:30 Acetaminophen (Tylenol Tab) 650 mg Q6H PRN PO .PAIN 1-3 OR TEMP Last administered on 03/31/19at 05:48; Admin Dose 650 MG; Start 03/29/19 at 13:30 Hydralazine HCl (Apresoline) 10 mg Q4H PRN IV sbp >160 Last administered on 04/02/19at 15:15; Admin Dose 10 MG; Start 03/29/19 at 14:00 Miscellaneous Information 1 ea NOTE XX ; Start 03/29/19 at 14:30 Glucose (Glutose) 15 gm Q15M PRN PO DECREASED GLUCOSE; Start 03/29/19 at 14:30 Glucose (Glutose) 22.5 gm Q15M PRN PO DECREASED GLUCOSE; Start 03/29/19 at 14:30 Dextrose (D50w Syringe) 25 ml Q15M PRN IV DECREASED GLUCOSE; Start 03/29/19 at 14:30 Dextrose (D50w Syringe) 50 ml Q15M PRN IV DECREASED GLUCOSE; Start 03/29/19 at 14:30 Glucagon (Glucagen) 1 mg Q15M PRN IM DECREASED GLUCOSE; Start 03/29/19 at 14:30 Glucose (Glutose) 15 gm Q15M PRN BUCCAL DECREASED GLUCOSE; Start 03/29/19 at 14:30 Albumin Human 100 ml @ 100 mls/hr WITH DIALYSIS PRN IV SBP <90 DURING DIALYSIS Last administered on 04/03/19at 21:18; Admin Dose 100 MLS/HR; Start 03/29/19 at 17:00 Albuterol/ Ipratropium (Duoneb) 3 ml Q2H RESP THERAPY PRN HHN WHEEZING AND RESP DISTRESS Last administered on 04/01/19at 21:23; Admin Dose 3 ML; Start 03/29/19 at 18:00 Lorazepam (Ativan) 0.5 mg Q4H PRN IV AGITATION Last administered on 04/02/19at 03:55; Admin Dose 0.5 MG; Start 03/29/19 at 18:00 IV Flush (NS 10 ml) 10 ml Q8 PRN IV IV PROTOCOL; Start 03/29/19 at 18:00 Labetalol HCl (Labetalol) 10 mg Q4H PRN IV sbp >160; Start 03/30/19 at 09:00 Haloperidol (Haldol) 5 mg Q6H PRN IM agitation Last administered on 03/31/19at 00:10; Admin Dose 5 MG; Start 03/30/19 at 10:00 Heparin Sodium (Porcine) (Heparin (1000 Units/ml)) 3,200 unit AFTER DIALYSIS CATHETER Last administered on 04/05/19at 11:04; Admin Dose 3,200 UNIT; Start 03/30/19 at 17:00 Atorvastatin Calcium (Lipitor) 40 mg HS NGT Last administered on 04/06/19at 21:48; Admin Dose 40 MG; Start 03/31/19 at 21:00 Baclofen (Lioresal) 10 mg BID GTB Last administered on 04/06/19 21:50; Admin Dose 10 MG; Start 03/31/19 at 21:00 Doxazosin Mesylate (Cardura) 2 mg DAILY NGT Last administered on 04/06/19 08:08; Admin Dose 2 MG; Start 03/31/19 at 14:30 Gabapentin (Neurontin) 100 mg QHS PO Last administered on 04/06/19 21:48; Admin Dose 100 MG; Start 03/31/19 at 21:00 Losartan Potassium (Cozaar) 100 mg DAILY NGT Last administered on 04/06/19 08:09; Admin Dose 100 MG; Start 03/31/19 at 14:30 Sertraline HCl (Zoloft) 25 mg HS NGT Last administered on 04/06/19 21:49; Admin Dose 25 MG; Start 03/31/19 at 21:00 Acetaminophen (Tylenol Liquid) 650 mg Q4H PRN PEG MILD PAIN(1-3)OR ELEVATED TEMP Last administered on 03/31/19 16:31; Admin Dose 650 MG; Start 03/31/19 at 16:00 Insulin Aspart (Novolog Insulin Pen) NOVOLOG *MILD* ALGORI... Q6 SC Last administered on 04/07/19 06:06; Admin Dose 2 UNIT; Start 04/02/19 at 12:00 Lactobacillus Acidophilus/ Rhamnosus (Culturelle) 1 cap TID GTB Last administered on 04/06/19 21:48; Admin Dose 1 CAP; Start 04/02/19 at 13:00 Carvedilol (Coreg) 25 mg BID NGT Last administered on 04/06/19 21:49; Admin Dose 25 MG; Start 04/02/19 at 21:00 Hydralazine HCl (Apresoline) 75 mg TID NGT Last administered on 04/06/19 21:50; Admin Dose 75 MG; Start 04/02/19 at 21:00 Nifedipine (Procardia Xl) 30 mg DAILY PO Last administered on 04/06/19 08:09; Admin Dose 30 MG; Start 04/03/19 at 09:00 Epoetin [place]-epbx (Retacrit (Esrd)) 10,000 unit MoWeFr@1700 SC Last administered on 04/05/19 17:49; Admin Dose 10,000 UNIT; Start 04/03/19 at 19:30 Lansoprazole (Prevacid) 30 mg BID@0600,1800 GTB Last administered on 04/07/19 06:03; Admin Dose 30 MG; Start 04/04/19 at 18:00 Levetiracetam (Keppra Liquid) 500 mg Q12 GTB Last administered on 04/06/19at 21:48; Admin Dose 500 MG; Start 04/04/19 at 21:00 Multivit/Ca Carb/ B Cmplx/FA/Prenat (Karena-Geovanni) 1 tab DAILY GTB Last administered on 04/06/19 08:02; Admin Dose 1 TAB; Start 04/04/19 at 11:30 Albuterol (Proventil 0.083% (Neb)) 2.5 mg Q6HWA RESP THERAPY HHN Last administered on 04/06/19at 20:21; Admin Dose 2.5 MG; Start 04/04/19 at 14:00 Aspirin (Aspirin) 81 mg DAILY PO Last administered on 04/06/19at 08:02; Admin Dose 81 MG; Start 04/05/19 at 09:00 Clopidogrel Bisulfate (plaVIX) 75 mg DAILY GTB ; Start 04/07/19 at 09:00 Quetiapine Fumarate (Seroquel) 50 mg DAILY GTB ; Start 04/07/19 at 09:00 Quetiapine Fumarate (Seroquel) 25 mg QHS GTB Last administered on 04/06/19at 21:50; Admin Dose 25 MG; Start 04/06/19 at 21:00 BETZAIDA YAÑEZ MD Apr 07, 2019 08:01
[2019-04-07] MEDS: ALBUTEROL 0.083% (NEB) 2.5 MG/3 ML AMP HHN SCH ×3 (08:15→19:21)
[2019-04-07] MEDS: MULTIVIT/CA CARB/B CMPLX/FA TAB GTB SCH (08:22)
[2019-04-07] MEDS: ASPIRIN 81 MG TAB PO SCH (08:23)
[2019-04-07] MEDS: LEVETIRACETAM (100 MG/ML) 5ML CUP GTB SCH ×2 (08:23→21:00)
[2019-04-07] MEDS: BACLOFEN 10 MG TAB GTB SCH ×2 (08:23→21:00)
[2019-04-07] MEDS: LACTOBACILLUS RHAMNOSUS CAP GTB SCH ×3 (08:23→21:00)
[2019-04-07] MEDS: LOSARTAN 50 MG TAB NGT SCH (08:23)
[2019-04-07] MEDS: CLOPIDOGREL 75 MG TAB GTB SCH (08:23)
[2019-04-07] MEDS: NIFEdipine (XL) 30 MG TAB PO SCH (08:24)
[2019-04-07] MEDS: DOXAZOSIN 2 MG TAB NGT SCH (08:24)
[2019-04-07] MEDS: QUETIAPINE 25 MG TAB GTB SCH ×2 (08:55→21:00)
[2019-04-07] MEDS ORDERED: QUETIAPINE 25 MG TAB GTB SCH (09:00)
--- NOTE | 2019-04-07 10:41 | PN ---
Date/Time of Note Date/Time of Note DATE: 04/07/19 TIME: 10:38 Assessment/Plan VTE Prophylaxis Risk score (from Ns)>0 risk: 5 SCD applied (from Ns): No SCD contraindicated: other Pharmacological prophylaxis: other Lines/Catheters IV Catheter Type (from [facility]): permacath Urinary Cath still in place: No Assessment/Plan Assessment/Plan 1. Acute on chronic encephalopathy - still restless and trying to get out of bed. Will increase Seroquel to 50mg BID and monitor - Neurology on board and appreciate recommendations. CT unrevealing - blood cultures negative and UA negative so no toxic source noted 2. Hypertensive emergency- resolved - BP better controlled 3. Severe anemia- resolved - No active bleeding appreciated - EGD revealed moderate distal esophagitis and gastritis and duodenitis. Colonoscopy showed internal hemorrhoids - GI consultation appreciated. Will need repeat colonoscopy in 6 months - continue PPI 4. Leukocytosis- resolved - Cultures done - completed course of antibiotics 5. Dysphasia - PEG in place and on TF 6. End-stage renal disease on hemodialysis - Nephrology on board and appreciate consultation. Continue HD 7. Coronary artery disease status post CABG history - continue home medications - continue aspirin and Plavix 8. Epilepsy - Continue Keppra 9. History of CVA with residual left-sided deficit and more recent CVA 1 month ago - Patient reportedly had a new stroke approximately 1 month ago at [facility] which is the cause of patient's current encephalopathic state - After speaking with daughter, appears this is patient's baseline after leaving [facility] proximally 1 week ago. Patient suffered CVA and subsequent long stay in the ICU which required intubation and PEG tube. Patient almost required tracheostomy however appear to have been able to be weaned off the ventilator. - Neurology consultation appreciated 10. BPH 11. Disposition - Increased Seroquel dose to 50 BID and monitor for improvement in agitation. Once off restraints, can d/c to SNF Result Diagram: 04/07/1934 04/07/1934 Results 24hrs Laboratory Tests Test 04/06/19 11:43 04/06/19 16:35 04/07/19 05:34 04/07/19 06:02 Bedside Glucose 169 195 201 White Blood Count 9.5 # Red Blood Count 3.08 L Hemoglobin 9.3 L Hematocrit 28.9 L Mean Corpuscular 93.8 Volume Mean Corpuscular 30.2 Hemoglobin Mean Corpuscular 32.2 Hemoglobin Concent Red Cell 16.2 H Distribution Width Platelet Count 231 Mean Platelet Volume 10.4 Immature 2.100 H Granulocytes % Neutrophils % 70.9 Lymphocytes % 14.3 L Monocytes % 7.8 Eosinophils % 4.3 Basophils % 0.6 Nucleated Red Blood 0.0 Cells % Immature 0.200 H Granulocytes # Neutrophils # 6.7 Lymphocytes # 1.4 Monocytes # 0.7 Eosinophils # 0.4 Basophils # 0.1 Nucleated Red Blood 0.0 Cells # Sodium Level 139 Potassium Level 4.0 Chloride Level 100 Carbon Dioxide Level 32 H Anion Gap 7 Blood Urea Nitrogen 29 #H Creatinine 6.06 H Glucose Level 214 Calcium Level 9.2 Phosphorus Level 3.0 Magnesium Level 2.5 Albumin 3.2 L Subjective 24 Hr Interval Summary Free Text/Dictation Patient resting this am. Per nursing he continues to try to get out of bed and remains restrained. Exam/Review of Systems Exam Vitals Vital Signs Date Temp Pulse Resp B/P (MAP) Pulse Ox O2 O2 Flow FiO2 Time Delivery Rate 04/07/19 98.0 75 19 101/57 97 Nasal 10:00 (72) Cannula 04/07/19 3.0 08:25 04/06/19 28 12:56 Intake and Output 04/06/19 04/06/19 04/07/19 1515:00 23:00 07:00 IntakeIntake Total 720 ml OutputOutput Total 0 ml BalanceBalance 720 ml Exam General: no acute distress. resting comfortably Neck: Supple, nontender, midline Respiratory: Clear to auscultation bilaterally. no wheezing or rhonchi Cardiovascular: S1, S2, regular rate and rhythm. No obvious murmurs Gastrointestinal: soft, non-tender to palpation, nondistended, bowel sounds heard. Skin: No new skin lesions Results Results 24hrs Laboratory Tests Test 04/06/19 11:43 04/06/19 16:35 04/07/19 05:34 04/07/19 06:02 Bedside Glucose 169 195 201 White Blood Count 9.5 # Red Blood Count 3.08 L Hemoglobin 9.3 L Hematocrit 28.9 L Mean Corpuscular 93.8 Volume Mean Corpuscular 30.2 Hemoglobin Mean Corpuscular 32.2 Hemoglobin Concent Red Cell 16.2 H Distribution Width Platelet Count 231 Mean Platelet Volume 10.4 Immature 2.100 H Granulocytes % Neutrophils % 70.9 Lymphocytes % 14.3 L Monocytes % 7.8 Eosinophils % 4.3 Basophils % 0.6 Nucleated Red Blood 0.0 Cells % Immature 0.200 H Granulocytes # Neutrophils # 6.7 Lymphocytes # 1.4 Monocytes # 0.7 Eosinophils # 0.4 Basophils # 0.1 Nucleated Red Blood 0.0 Cells # Sodium Level 139 Potassium Level 4.0 Chloride Level 100 Carbon Dioxide Level 32 H Anion Gap 7 Blood Urea Nitrogen 29 #H Creatinine 6.06 H Glucose Level 214 Calcium Level 9.2 Phosphorus Level 3.0 Magnesium Level 2.5 Albumin 3.2 L Medications Medication Current Medications IV Flush (NS 3 ml) 3 ml PER PROTOCOL IV ; Start 03/29/19 at 13:30 Ondansetron HCl (Zofran Inj) 4 mg Q6H PRN IV NAUSEA/VOMITING Last administered on 04/02/19at 14:58; Admin Dose 4 MG; Start 03/29/19 at 13:30 Acetaminophen (Tylenol Tab) 650 mg Q6H PRN PO .PAIN 1-3 OR TEMP Last administered on 03/31/19at 05:48; Admin Dose 650 MG; Start 03/29/19 at 13:30 Hydralazine HCl (Apresoline) 10 mg Q4H PRN IV sbp >160 Last administered on 04/02/19at 15:15; Admin Dose 10 MG; Start 03/29/19 at 14:00 Miscellaneous Information 1 ea NOTE XX ; Start 03/29/19 at 14:30 Glucose (Glutose) 15 gm Q15M PRN PO DECREASED GLUCOSE; Start 03/29/19 at 14:30 Glucose (Glutose) 22.5 gm Q15M PRN PO DECREASED GLUCOSE; Start 03/29/19 at 14:30 Dextrose (D50w Syringe) 25 ml Q15M PRN IV DECREASED GLUCOSE; Start 03/29/19 at 14:30 Dextrose (D50w Syringe) 50 ml Q15M PRN IV DECREASED GLUCOSE; Start 03/29/19 at 14:30 Glucagon (Glucagen) 1 mg Q15M PRN IM DECREASED GLUCOSE; Start 03/29/19 at 14:30 Glucose (Glutose) 15 gm Q15M PRN BUCCAL DECREASED GLUCOSE; Start 03/29/19 at 14:30 Albumin Human 100 ml @ 100 mls/hr WITH DIALYSIS PRN IV SBP <90 DURING DIALYSIS Last administered on 04/03/19 21:18; Admin Dose 100 MLS/HR; Start 03/29/19 at 17:00 Albuterol/ Ipratropium (Duoneb) 3 ml Q2H RESP THERAPY PRN HHN WHEEZING AND RESP DISTRESS Last administered on 04/01/19 21:23; Admin Dose 3 ML; Start 03/29/19 at 18:00 Lorazepam (Ativan) 0.5 mg Q4H PRN IV AGITATION Last administered on 04/02/19 0 3:55; Admin Dose 0.5 MG; Start 03/29/19 at 18:00 IV Flush (NS 10 ml) 10 ml Q8 PRN IV IV PROTOCOL; Start 03/29/19 at 18:00 Labetalol HCl (Labetalol) 10 mg Q4H PRN IV sbp >160; Start 03/30/19 at 09:00 Haloperidol (Haldol) 5 mg Q6H PRN IM agitation Last administered on 03/31/19 00:10; Admin Dose 5 MG; Start 03/30/19 at 10:00 Heparin Sodium (Porcine) (Heparin (1000 Units/ml)) 3,200 unit AFTER DIALYSIS CATHETER Last administered on 04/05/19 11:04; Admin Dose 3,200 UNIT; Start 03/30/19 at 17:00 Atorvastatin Calcium (Lipitor) 40 mg HS NGT Last administered on 04/06/19 21:48; Admin Dose 40 MG; Start 03/31/19 at 21:00 Baclofen (Lioresal) 10 mg BID GTB Last administered on 04/07/19 08:23; Admin Dose 10 MG; Start 03/31/19 at 21:00 Doxazosin Mesylate (Cardura) 2 mg DAILY NGT Last administered on 04/07/19 08:24; Admin Dose 2 MG; Start 03/31/19 at 14:30 Gabapentin (Neurontin) 100 mg QHS PO Last administered on 04/06/19 21:48; Admin Dose 100 MG; Start 03/31/19 at 21:00 Losartan Potassium (Cozaar) 100 mg DAILY NGT Last administered on 04/07/19 08:23; Admin Dose 100 MG; Start 03/31/19 at 14:30 Sertraline HCl (Zoloft) 25 mg HS NGT Last administered on 04/06/19 21:49; Admin Dose 25 MG; Start 03/31/19 at 21:00 Acetaminophen (Tylenol Liquid) 650 mg Q4H PRN PEG MILD PAIN(1-3)OR ELEVATED TEMP Last administered on 03/31/19 16:31; Admin Dose 650 MG; Start 03/31/19 at 16:00 Insulin Aspart (Novolog Insulin Pen) NOVOLOG *MILD* ALGORI... Q6 SC Last administered on 04/07/19 06:06; Admin Dose 2 UNIT; Start 04/02/19 at 12:00 Lactobacillus Acidophilus/ Rhamnosus (Culturelle) 1 cap TID GTB Last administered on 04/07/19 08:23; Admin Dose 1 CAP; Start 04/02/19 at 13:00 Carvedilol (Coreg) 25 mg BID NGT Last administered on 04/07/19 08:23; Admin Dose 25 MG; Start 04/02/19 at 21:00 Hydralazine HCl (Apresoline) 75 mg TID NGT Last administered on 04/07/19 08:23; Admin Dose 75 MG; Start 04/02/19 at 21:00 Nifedipine (Procardia Xl) 30 mg DAILY PO Last administered on 04/07/19 08:24; Admin Dose 30 MG; Start 04/03/19 at 09:00 Epoetin [place]-epbx (Retacrit (Esrd)) 10,000 unit MoWeFr@1700 SC Last administered on 04/05/19 17:49; Admin Dose 10,000 UNIT; Start 04/03/19 at 19:30 Lansoprazole (Prevacid) 30 mg BID@0600,1800 GTB Last administered on 04/07/19 06:03; Admin Dose 30 MG; Start 04/04/19 at 18:00 Levetiracetam (Keppra Liquid) 500 mg Q12 GTB Last administered on 04/07/19 08:23; Admin Dose 500 MG; Start 04/04/19 at 21:00 Multivit/Ca Carb/ B Cmplx/FA/Prenat (Karena-Geovanni) 1 tab DAILY GTB Last administered on 04/07/19 08:22; Admin Dose 1 TAB; Start 04/04/19 at 11:30 Albuterol (Proventil 0.083% (Neb)) 2.5 mg Q6HWA RESP THERAPY HHN Last administered on 04/07/19 08:15; Admin Dose 2.5 MG; Start 04/04/19 at 14:00 Aspirin (Aspirin) 81 mg DAILY PO Last administered on 04/07/19 08:23; Admin Dose 81 MG; Start 04/05/19 at 09:00 Clopidogrel Bisulfate (plaVIX) 75 mg DAILY GTB Last administered on 04/07/19 08:23; Admin Dose 75 MG; Start 04/07/19 at 09:00 Quetiapine Fumarate (Seroquel) 50 mg BID GTB ; Start 04/07/19 at 09:00 LILLIAN ZHANG MD Apr 07, 2019 10:41
--- NOTE | 2019-04-07 13:53 | CONS ---
Assessment/Plan Assessment/Plan Hospital Course (Demo Recall) 1. History of extensive coronary artery disease status post [place] status post coronary bypass graft status post PCI 2. Status post recent CVA 3. End-stage renal disease on hemodialysis 4. Hypertension 5. Dyslipidemia 6. Severe encephalopathy 7. Dysphagia status post PEG placement 8. Severe anemia and history of GI bleed Recommendations: Continue with aspirin Plavix as long as okay with GI continue with the Coreg I will stop the Procardia XL since cannot be crushed Hydralazine will continue adjusted as needed dialysis as per renal team Statin will be continued Consider transferring to [facility] Thank you for this referral. We will continue to follow along with you SEAN CROUCH MD [facility] Consultation Date/Type/Reason Admit Date/Time Mar 29, 2019 at 13:16 Date of Consultation: Apr 07, 2019 Type of Consult Cardiology Reason for Consultation CAD Requesting Provider: LILLIAN ZHANG MD Date/Time of Note DATE: 04/07/19 TIME: 13:46 Hx of Present Illness Interventional cardiology consultation note Chief complaint: Agitation Reason for consult: Coronary artery disease History of present illness: Thank you for this referral. History was informed the patient's at the bedside discussion with the staff and physician review of the old chart. Patient also very well-known to me from previous admission to the hospitalist both here and at [facility] office visits. This is an unfortunate 58-year-old [place] gentleman with multiple complicated medical history was transferred from rehab place because of agitation. Patient apparently has had a recent CVA and has been outside and confused. Patient has been agitated. Patient also noted to be severely anemic and and his Plavix was held for short period of time and undergone and off endoscopy and PEG placement. Patient has been placed back on Plavix now. No report of chest pain or pressure patient is nonverbal does not unable to provide any answer to me. Allergies: No known drug allergies Medications were reviewed as per medical reconciliation sheet Family history: No early coronary artery disease Social history: Ex-smoker Past medical history: end-stage renal disease on hemodialysis, coronary artery disease status post CABG status post NJ status post PCI be the most recent was September 2018 , epilepsy, history of CVA with residual left-sided deficit, BPH Hypertension Review of system: Patient denies all others except for above-mentioned Past Medical History Home Meds Reported Medications Bisacodyl (Dulcolax) 10 Mg Supp.rect, 10 MG RC DAILY PRN for CONSTIPATION, SUPP.RECT 03/29/19 Sodium Phosphate,Citrus-Dibasic (Enema Ready To Use) 133 Ml Enema, 133 ML RC EVERY 2 DAYS PRN for CONSTIPATION, ENEMA 03/29/19 Acetaminophen* (Acetaminophen*) 650 Mg Tablet, 650 MG GTB Q4 PRN for MILD PAIN LEVEL 1-3, #30 TAB AND FEVER 03/29/19 Acetaminophen* (Acetaminophen*) 500 MG Extra Strength Tablet, 1000 MG GTB Q4H PRN for MODERATE PAIN LEVEL 4-6, TAB 03/29/19 Acetaminophen* (Acetaminophen*) 500 MG Extra Strength Tablet, 1000 MG GTB BID PRN for GENERAL BODY PAIN, TAB 03/29/19 Amino Acids/Protein Hydrolys (Pro-Stat Awc Liquid) 30 Ml Liquid, 30 ML GTB DAILY SUGAR FREE 03/29/19 Multivitamin* (Daily Value*) 1 Each Tablet, 1 TAB GTB DAILY, TAB 03/29/19 Ascorbic Acid* (Vitamin C*) 500 Mg Capsule.sa, 500 MG GTB DAILY, CAP 03/29/19 Ferrous Sulfate (Ferrous Sulfate) 300 Mg/5 Ml Liquid, 325 MG GTB DAILY 03/29/19 Cran/Vitc/Mannose/Inulin/Brom (Uti-Stat Liquid) 3,875 Mg/30 Ml Liquid, 3875 MG GTB DAILY 03/29/19 Cranberry Extract (Cranberry) 425 Mg Capsule, 425 MG GTB DAILY, CAP 03/29/19 Insulin Glulisine (Apidra Solostar) 100 Unit/1 Ml Insuln.pen, 4 UNIT SQ TIDM A, #1 TUB 03/29/19 Insulin Glargine,Hum.rec.anlog (Basaglar Kwikpen U-100) 100 Unit/1 Ml Insuln.pen, 25 UNIT SC QHS, EA 03/29/19 Insulin Regular, Human (Humulin R) 100 Unit/1 Ml Vial, 0 IJ AC MEALS AND BEDTIME, VIAL 0-150 = 0 UNIT 151-200 = 1 UNIT 201-250 = 2 UNITS 251-300 = 3 UNITS 301-350 = 4 UNITS 351-400 = 5 UNITS OVER 400 GIVE 6 UNITS UNDER 70 OR OVER 400 NOTIFY 03/29/19 Sertraline Hcl* (Sertraline Hcl*) 25 Mg Tablet, 25 MG GTB DAILY, #30 TAB 03/29/19 Lorazepam* (Ativan*) 0.5 Mg Tablet, 0.5 MG GTB DAILY PRN for ANXIETY, #30 TAB 03/29/19 Quetiapine Fumarate* (Seroquel*) 25 Mg Tablet, 25 MG GTB HS, #30 TAB 03/29/19 Lorazepam* (Lorazepam*) 0.5 Mg Tablet, 0.5 MG GTB DAILY PRN for ANXIETY, TAB 03/29/19 Clonidine Hcl* (Clonidine Hcl*) 0.1 Mg Tab, 0.1 MG GTB DAILY PRN for ELEVATED BLOOD PRESSURE, TAB SBP >160 03/29/19 Azelastine Hcl* (Azelastine Hcl*) 137 Mcg/0.137 Ml Lavinia.pump, 2 SPRAYS NASAL BID, #1 EA TO EACH NOSTRIL 03/29/19 Carvedilol* (Carvedilol*) 12.5 Mg Tablet, 12.5 MG GTB BID, #60 TAB 03/29/19 Diltiazem Hcl* (Cardizem CD*) 240 Mg Cap.sr.24h, 240 MG GTB DAILY, #30 CAP 03/29/19 Ergocalciferol (Vitamin D2) (VITAMIN D2) 50,000 Unit Capsule, 03051 UNIT GTB EVERY MONDAY, CAP 03/29/19 Hydralazine Hcl* (Hydralazine Hcl*) 50 Mg Tab, 50 MG GTB TID PRN for ELEVATED BLOOD PRESSURE, #60 TAB 03/29/19 Losartan Potassium* (Losartan Potassium*) 100 Mg Tablet, 100 MG GTB DAILY, TAB 03/29/19 Metoprolol Succinate* (Toprol XL*) 25 Mg Tab.sr.24h, 25 MG GTB DAILY, #30 TAB 03/29/19 Linagliptin (TRADJENTA) 5 Mg Tablet, 5 MG GTB DAILY, TAB 03/29/19 Albuterol Sulfate* (Proair HFA*) 8.5 Gm Hfa.aer.ad, 2 PUFF INH Q4H PRN for WHEEZING AND SOB, #1 INHALER 03/29/19 Ranitidine Hcl* (Ranitidine Hcl*) 300 Mg Tablet, 300 MG GTB HS, #30 TAB 03/29/19 Levetiracetam* (Keppra*) 500 Mg Tablet, 500 MG GTB BID, TAB 03/29/19 Gabapentin* (Gabapentin*) 100 Mg Capsule, 100 MG GTB QHS, #90 CAP 03/29/19 Doxazosin Mesylate* (Doxazosin Mesylate*) 2 Mg Tablet, 2 MG GTB HS, TAB 03/29/19 Docusate Sodium* (Dok*) 100 Mg Tablet, 100 MG GTB BID, #60 CAP 03/29/19 Cyanocobalamin (Vitamin B-12) (Cyanocobalamin Injection) 1,000 Mcg/1 Ml Vial, 1000 MCG IJ EVERY MONDAY, VIAL 03/29/19 Clopidogrel Bisulfate (Clopidogrel) 75 Mg Tablet, 75 MG GTB DAILY, #30 TAB 03/29/19 Calcium Carbonate (Oysco-500) 500 Mg Tablet, 500 MG GTB DAILY, TAB 03/29/19 Baclofen* (Baclofen*) 10 Mg Tablet, 10 MG GTB BID, TAB 03/29/19 Atorvastatin* (Atorvastatin*) 40 Mg Tablet, 40 MG GTB QHS, #30 TAB 03/29/19 Aspirin (Low Dose Aspirin) 81 Mg Tablet.dr, 81 MG GTB DAILY, #30 TAB 03/29/19 Medications Current Medications IV Flush (NS 3 ml) 3 ml PER PROTOCOL IV ; Start 03/29/19 at 13:30 Ondansetron HCl (Zofran Inj) 4 mg Q6H PRN IV NAUSEA/VOMITING Last administered on 04/02/19at 14:58; Admin Dose 4 MG; Start 03/29/19 at 13:30 Acetaminophen (Tylenol Tab) 650 mg Q6H PRN PO .PAIN 1-3 OR TEMP Last administered on 03/31/19at 05:48; Admin Dose 650 MG; Start 03/29/19 at 13:30 Hydralazine HCl (Apresoline) 10 mg Q4H PRN IV sbp >160 Last administered on 04/02/19at 15:15; Admin Dose 10 MG; Start 03/29/19 at 14:00 Miscellaneous Information 1 ea NOTE XX ; Start 03/29/19 at 14:30 Glucose (Glutose) 15 gm Q15M PRN PO DECREASED GLUCOSE; Start 03/29/19 at 14:30 Glucose (Glutose) 22.5 gm Q15M PRN PO DECREASED GLUCOSE; Start 03/29/19 at 14:30 Dextrose (D50w Syringe) 25 ml Q15M PRN IV DECREASED GLUCOSE; Start 03/29/19 at 14:30 Dextrose (D50w Syringe) 50 ml Q15M PRN IV DECREASED GLUCOSE; Start 03/29/19 at 14:30 Glucagon (Glucagen) 1 mg Q15M PRN IM DECREASED GLUCOSE; Start 03/29/19 at 14:30 Glucose (Glutose) 15 gm Q15M PRN BUCCAL DECREASED GLUCOSE; Start 03/29/19 at 14:30 Albumin Human 100 ml @ 100 mls/hr WITH DIALYSIS PRN IV SBP <90 DURING DIALYSIS Last administered on 04/03/19at 21:18; Admin Dose 100 MLS/HR; Start 03/29/19 at 17:00 Albuterol/ Ipratropium (Duoneb) 3 ml Q2H RESP THERAPY PRN HHN WHEEZING AND RESP DISTRESS Last administered on 04/01/19at 21:23; Admin Dose 3 ML; Start 03/29/19 at 18:00 Lorazepam (Ativan) 0.5 mg Q4H PRN IV AGITATION Last administered on 04/02/19at 03:55; Admin Dose 0.5 MG; Start 03/29/19 at 18:00 IV Flush (NS 10 ml) 10 ml Q8 PRN IV IV PROTOCOL; Start 03/29/19 at 18:00 Labetalol HCl (Labetalol) 10 mg Q4H PRN IV sbp >160; Start 03/30/19 at 09:00 Haloperidol (Haldol) 5 mg Q6H PRN IM agitation Last administered on 03/31/19at 00:10; Admin Dose 5 MG; Start 03/30/19 at 10:00 Heparin Sodium (Porcine) (Heparin (1000 Units/ml)) 3,200 unit AFTER DIALYSIS CATHETER Last administered on 04/05/19at 11:04; Admin Dose 3,200 UNIT; Start 03/30/19 at 17:00 Atorvastatin Calcium (Lipitor) 40 mg HS NGT Last administered on 04/06/19at 21:48; Admin Dose 40 MG; Start 03/31/19 at 21:00 Baclofen (Lioresal) 10 mg BID GTB Last administered on 04/07/19at 08:23; Admin Dose 10 MG; Start 03/31/19 at 21:00 Doxazosin Mesylate (Cardura) 2 mg DAILY NGT Last administered on 04/07/19 08:24; Admin Dose 2 MG; Start 03/31/19 at 14:30 Gabapentin (Neurontin) 100 mg QHS PO Last administered on 04/06/19 21:48; Admin Dose 100 MG; Start 03/31/19 at 21:00 Losartan Potassium (Cozaar) 100 mg DAILY NGT Last administered on 04/07/19 08:23; Admin Dose 100 MG; Start 03/31/19 at 14:30 Sertraline HCl (Zoloft) 25 mg HS NGT Last administered on 04/06/19 21:49; Admin Dose 25 MG; Start 03/31/19 at 21:00 Acetaminophen (Tylenol Liquid) 650 mg Q4H PRN PEG MILD PAIN(1-3)OR ELEVATED TEMP Last administered on 03/31/19 16:31; Admin Dose 650 MG; Start 03/31/19 at 16:00 Insulin Aspart (Novolog Insulin Pen) NOVOLOG *MILD* ALGORI... Q6 SC Last administered on 04/07/19 12:20; Admin Dose 3 UNIT; Start 04/02/19 at 12:00 Lactobacillus Acidophilus/ Rhamnosus (Culturelle) 1 cap TID GTB Last administered on 04/07/19 12:14; Admin Dose 1 CAP; Start 04/02/19 at 13:00 Carvedilol (Coreg) 25 mg BID NGT Last administered on 04/07/19 08:23; Admin Dose 25 MG; Start 04/02/19 at 21:00 Hydralazine HCl (Apresoline) 75 mg TID NGT Last administered on 04/07/19 12:26; Admin Dose 75 MG; Start 04/02/19 at 21:00 Nifedipine (Procardia Xl) 30 mg DAILY PO Last administered on 04/07/19 08:24; Admin Dose 30 MG; Start 04/03/19 at 09:00 Epoetin [place]-epbx (Retacrit (Esrd)) 10,000 unit MoWeFr@1700 SC Last administered on 04/05/19 17:49; Admin Dose 10,000 UNIT; Start 04/03/19 at 19:30 Lansoprazole (Prevacid) 30 mg BID@0600,1800 GTB Last administered on 04/07/19 06:03; Admin Dose 30 MG; Start 04/04/19 at 18:00 Levetiracetam (Keppra Liquid) 500 mg Q12 GTB Last administered on 04/07/19 08:23; Admin Dose 500 MG; Start 04/04/19 at 21:00 Multivit/Ca Carb/ B Cmplx/FA/Prenat (Karena-Geovanni) 1 tab DAILY GTB Last administered on 04/07/19 08:22; Admin Dose 1 TAB; Start 04/04/19 at 11:30 Albuterol (Proventil 0.083% (Neb)) 2.5 mg Q6HWA RESP THERAPY HHN Last administered on 04/07/19 08:15; Admin Dose 2.5 MG; Start 04/04/19 at 14:00 Aspirin (Aspirin) 81 mg DAILY PO Last administered on 04/07/19 08:23; Admin Dose 81 MG; Start 04/05/19 at 09:00 Clopidogrel Bisulfate (plaVIX) 75 mg DAILY GTB Last administered on 04/07/19 08:23; Admin Dose 75 MG; Start 04/07/19 at 09:00 Quetiapine Fumarate (Seroquel) 50 mg BID GTB ; Start 04/07/19 at 09:00 Allergies: Coded Allergies: No Known Drug Allergies (Unverified Allergy, Unknown, 05/31/18) Past Surgical History Past Surgical Hx: coronary bypass surgery, other (Right chest permacath ) Social History Alcohol Use: none Smoking Status: Never smoker Drug Use: none Exam/Review of Systems Vital Signs Vitals Vital Signs Date Temp Pulse Resp B/P (MAP) Pulse Ox O2 O2 Flow FiO2 Time Delivery Rate 04/07/19 97.5 81 19 112/61 98 Nasal 12:00 (78) Cannula 04/07/19 3.0 08:25 04/06/19 28 12:56 Intake and Output 04/06/19 04/06/19 04/07/19 1515:00 23:00 07:00 IntakeIntake Total 720 ml OutputOutput Total 0 ml BalanceBalance 720 ml Exam Exam General: no acute distress HEENT: NC/AT. pupils are equal. round. NECK:. no stridor. CV: RRR. systolic murmur; no gallop or rubs. PULM: + rhonchi. GI: SOFT, NT, ND, no rebound or guarding Extremity: trace B/L LE edema. no clubbing. neuro: Lethargic does not answer question Psych: calm the moment rectal: deferred : normal EKG done March 29, 2019 shows normal sinus rhythm nonspecific ST abnormalities Labs Result Diagram: 04/07/19 0534 04/07/19 0534 Results 24hrs Laboratory Tests Test 04/06/19 16:35 04/07/19 05:34 04/07/19 06:02 04/07/19 12:12 Bedside Glucose 195 201 249 H White Blood Count 9.5 # Red Blood Count 3.08 L Hemoglobin 9.3 L Hematocrit 28.9 L Mean Corpuscular 93.8 Volume Mean Corpuscular 30.2 Hemoglobin Mean Corpuscular 32.2 Hemoglobin Concent Red Cell 16.2 H Distribution Width Platelet Count 231 Mean Platelet Volume 10.4 Immature 2.100 H Granulocytes % Neutrophils % 70.9 Lymphocytes % 14.3 L Monocytes % 7.8 Eosinophils % 4.3 Basophils % 0.6 Nucleated Red Blood 0.0 Cells % Immature 0.200 H Granulocytes # Neutrophils # 6.7 Lymphocytes # 1.4 Monocytes # 0.7 Eosinophils # 0.4 Basophils # 0.1 Nucleated Red Blood 0.0 Cells # Sodium Level 139 Potassium Level 4.0 Chloride Level 100 Carbon Dioxide Level 32 H Anion Gap 7 Blood Urea Nitrogen 29 #H Creatinine 6.06 H Glucose Level 214 Calcium Level 9.2 Phosphorus Level 3.0 Magnesium Level 2.5 Albumin 3.2 L Medications Medications Current Medications IV Flush (NS 3 ml) 3 ml PER PROTOCOL IV ; Start 03/29/19 at 13:30 Ondansetron HCl (Zofran Inj) 4 mg Q6H PRN IV NAUSEA/VOMITING Last administered on 04/02/19at 14:58; Admin Dose 4 MG; Start 03/29/19 at 13:30 Acetaminophen (Tylenol Tab) 650 mg Q6H PRN PO .PAIN 1-3 OR TEMP Last administered on 03/31/19at 05:48; Admin Dose 650 MG; Start 03/29/19 at 13:30 Hydralazine HCl (Apresoline) 10 mg Q4H PRN IV sbp >160 Last administered on 04/02/19at 15:15; Admin Dose 10 MG; Start 03/29/19 at 14:00 Miscellaneous Information 1 ea NOTE XX ; Start 03/29/19 at 14:30 Glucose (Glutose) 15 gm Q15M PRN PO DECREASED GLUCOSE; Start 03/29/19 at 14:30 Glucose (Glutose) 22.5 gm Q15M PRN PO DECREASED GLUCOSE; Start 03/29/19 at 14:30 Dextrose (D50w Syringe) 25 ml Q15M PRN IV DECREASED GLUCOSE; Start 03/29/19 at 14:30 Dextrose (D50w Syringe) 50 ml Q15M PRN IV DECREASED GLUCOSE; Start 03/29/19 at 14:30 Glucagon (Glucagen) 1 mg Q15M PRN IM DECREASED GLUCOSE; Start 03/29/19 at 14:30 Glucose (Glutose) 15 gm Q15M PRN BUCCAL DECREASED GLUCOSE; Start 03/29/19 at 14:30 Albumin Human 100 ml @ 100 mls/hr WITH DIALYSIS PRN IV SBP <90 DURING DIALYSIS Last administered on 04/03/19at 21:18; Admin Dose 100 MLS/HR; Start 03/29/19 at 17:00 Albuterol/ Ipratropium (Duoneb) 3 ml Q2H RESP THERAPY PRN HHN WHEEZING AND RESP DISTRESS Last administered on 04/01/19at 21:23; Admin Dose 3 ML; Start 03/29/19 at 18:00 Lorazepam (Ativan) 0.5 mg Q4H PRN IV AGITATION Last administered on 04/02/19at 03:55; Admin Dose 0.5 MG; Start 03/29/19 at 18:00 IV Flush (NS 10 ml) 10 ml Q8 PRN IV IV PROTOCOL; Start 03/29/19 at 18:00 Labetalol HCl (Labetalol) 10 mg Q4H PRN IV sbp >160; Start 03/30/19 at 09:00 Haloperidol (Haldol) 5 mg Q6H PRN IM agitation Last administered on 03/31/19at 00:10; Admin Dose 5 MG; Start 03/30/19 at 10:00 Heparin Sodium (Porcine) (Heparin (1000 Units/ml)) 3,200 unit AFTER DIALYSIS CATHETER Last administered on 04/05/19 11:04; Admin Dose 3,200 UNIT; Start 03/30/19 at 17:00 Atorvastatin Calcium (Lipitor) 40 mg HS NGT Last administered on 04/06/19 21:48; Admin Dose 40 MG; Start 03/31/19 at 21:00 Baclofen (Lioresal) 10 mg BID GTB Last administered on 04/07/19 08:23; Admin Dose 10 MG; Start 03/31/19 at 21:00 Doxazosin Mesylate (Cardura) 2 mg DAILY NGT Last administered on 04/07/19 08:24; Admin Dose 2 MG; Start 03/31/19 at 14:30 Gabapentin (Neurontin) 100 mg QHS PO Last administered on 04/06/19 21:48; Admin Dose 100 MG; Start 03/31/19 at 21:00 Losartan Potassium (Cozaar) 100 mg DAILY NGT Last administered on 04/07/19 08:23; Admin Dose 100 MG; Start 03/31/19 at 14:30 Sertraline HCl (Zoloft) 25 mg HS NGT Last administered on 04/06/19 21:49; Admin Dose 25 MG; Start 03/31/19 at 21:00 Acetaminophen (Tylenol Liquid) 650 mg Q4H PRN PEG MILD PAIN(1-3)OR ELEVATED TEMP Last administered on 03/31/19 16:31; Admin Dose 650 MG; Start 03/31/19 at 16:00 Insulin Aspart (Novolog Insulin Pen) NOVOLOG *MILD* ALGORI... Q6 SC Last administered on 04/07/19 12:20; Admin Dose 3 UNIT; Start 04/02/19 at 12:00 Lactobacillus Acidophilus/ Rhamnosus (Culturelle) 1 cap TID GTB Last administered on 04/07/19 12:14; Admin Dose 1 CAP; Start 04/02/19 at 13:00 Carvedilol (Coreg) 25 mg BID NGT Last administered on 04/07/19 08:23; Admin Dose 25 MG; Start 04/02/19 at 21:00 Hydralazine HCl (Apresoline) 75 mg TID NGT Last administered on 04/07/19 12:26; Admin Dose 75 MG; Start 04/02/19 at 21:00 Nifedipine (Procardia Xl) 30 mg DAILY PO Last administered on 04/07/19 08:24; Admin Dose 30 MG; Start 04/03/19 at 09:00 Epoetin [place]-epbx (Retacrit (Esrd)) 10,000 unit MoWeFr@1700 SC Last administered on 04/05/19 17:49; Admin Dose 10,000 UNIT; Start 04/03/19 at 19:30 Lansoprazole (Prevacid) 30 mg BID@0600,1800 GTB Last administered on 04/07/19 06:03; Admin Dose 30 MG; Start 04/04/19 at 18:00 Levetiracetam (Keppra Liquid) 500 mg Q12 GTB Last administered on 04/07/19 08:23; Admin Dose 500 MG; Start 04/04/19 at 21:00 Multivit/Ca Carb/ B Cmplx/FA/Prenat (Karena-Geovanni) 1 tab DAILY GTB Last administe red on 04/07/19 08:22; Admin Dose 1 TAB; Start 04/04/19 at 11:30 Albuterol (Proventil 0.083% (Neb)) 2.5 mg Q6HWA RESP THERAPY HHN Last administered on 04/07/19 08:15; Admin Dose 2.5 MG; Start 04/04/19 at 14:00 Aspirin (Aspirin) 81 mg DAILY PO Last administered on 04/07/19 08:23; Admin Dose 81 MG; Start 04/05/19 at 09:00 Clopidogrel Bisulfate (plaVIX) 75 mg DAILY GTB Last administered on 04/07/19 08:23; Admin Dose 75 MG; Start 04/07/19 at 09:00 Quetiapine Fumarate (Seroquel) 50 mg BID GTB ; Start 04/07/19 at 09:00 SEAN CROUCH MD Apr 07, 2019 13:53
[2019-04-07] MEDS: ONDANSETRON 4 MG INJ IV PRN (18:53)
[2019-04-07] MEDS: SERTRALINE 50 MG TAB NGT SCH (21:00)
[2019-04-07] MEDS: ATORVASTATIN 40 MG TAB NGT SCH (21:00)
[2019-04-07] MEDS: GABAPENTIN 100 MG CAP PO SCH (21:00)
[2019-04-08] VITALS (102 sets, daily range): BP systolic 64–167; BP diastolic 43–86; PULSE 74–104; RESP 0–25
[2019-04-08] MEDS ORDERED: SOD CHLORIDE 0.9% 1,000 ML IV ONE
[2019-04-08] MEDS: PROPOFOL 100 ML IV PRN ×3 (00:07→11:39)
--- NOTE | 2019-04-08 00:10 | EN ---
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 Patient was not visually noted to be nonresponsive and obtunded. Sternal rub did not elicit any arousal. Blood pressure was noted to be in the systolic 70s. He earlier had a fever and blood cultures and lactic acid were drawn. Patient shortly prior to the rapid response being called was noted to have gone hypotensive. Stat ABG was drawn and patient was taken down to the ICU emergently. ABG showed apH of 7.39/CO2 of 46.3/O2 of 86.8/bicarb of 27.4. Patient however remained obtunded. His blood pressure though did improve with fluids for transient period of time. Given his clinical condition it was determined that it would be best for the patient to be intubated. The ED physician was consulted and he did intubate the patient successfully. Of note patient was noted to be vomiting earlier by the RN. Initial vitals:emperature 100.9/heart rate 105/blood pressure 76/41 pulse ox 91% on 15 L nonrebreather General: Patient nonresponsive, obtunded CVS: Sinus tachycardia Lungs: Coarse breath sounds bilaterally,, rales Neuro: Patient unresponsive, obtunded Assessment and plan: #1 suspect septic shock: Concern for possible aspiration pneumonia versus other. We will start the patient on vasopressor support, broad-spectrum antibiotics of vancomycin and Zosyn pharmacy to dose. Will check urinalysis, urine culture as patient still is oliguric. Trend lactic acid level. Blood cultures are pending. Will check stat CBC and BMP. Monitor for further fevers. #2 acute respiratory failure: Patient was intubated. Serial ABGs. Vent management as per pulmonary. #3 Acute encephalopathy: Toxic metabolic, hypoxic/hypercapnic. Patient is cur rently intubated. Will treat underlying sepsis. Monitor for clinical improvement Greater than 35 minutes critical care time spent on the care management this patient. Further treatment strategy will be implemented as per the clinical course. ALFREDO FELDER Apr 08, 2019 00:10
[2019-04-08] MEDS ORDERED: VANCOMYCIN IV PER PHARMACY XX SCH (00:30)
[2019-04-08] MEDS ORDERED: PIPER-TAZO 3.375 GM IV (PMX) 100 ML IVPB SCH (00:30)
[2019-04-08] MEDS ORDERED: VANCOMYCIN HCL 1.5 GM in SOD CHLORIDE 0.9% 250 ML IVPB SCH (01:00)
[2019-04-08] MEDS: NORepinephrine 8MG/250 ML (PMX 250 ML IV SCH ×2 (01:05→22:04)
[2019-04-08] MEDS: PIPER-TAZO 2.25 GM/NS 50 ML IVPB SCH ×3 (01:21→21:19)
[2019-04-08] MEDS: SOD CHLORIDE 0.9% 1,000 ML IV SCH ×2 (03:48→11:33)
--- NOTE | 2019-04-08 03:57 | QN ---
Documentation Comment Endotracheal Intubation by me: Pre assessment performed. I administered etomidate 20 mg IV and succinylcholine 100 mg IV x1 Pre-oxygenation performed with 100% oxygen RSI: Performed w/o complication or hypoxic events. Medications as ordered. Blade: 4.0 ET Tube: 7.5 cm Depth: 24 cm at the lip Intubation confirmed by colorimetric CO2, equal breath sounds, quiet over the stomach. Chest X-ray 1V Interpreted by me: Tracheostomy tube is in place with distal tip about 2 cm above steven, there is pulmonary congestion and edema bilaterally, sternotomy wires, dialysis catheter in the right chest, no pneumothorax STEWART MEZA MD Apr 08, 2019 03:57
[2019-04-08] MEDS: INSULIN ASPART [NOVOLOG] 3 ML PEN SC SCH ×4 (05:46→17:56)
[2019-04-08] MEDS: LANSOPRAZOLE 30 MG CAP GTB SCH ×2 (05:47→17:12)
[2019-04-08] MEDS: ALBUTEROL 0.083% (NEB) 2.5 MG/3 ML AMP HHN SCH ×3 (08:00→19:45)
[2019-04-08] MEDS: LACTOBACILLUS RHAMNOSUS CAP GTB SCH ×3 (09:00→21:00)
[2019-04-08] MEDS: MULTIVIT/CA CARB/B CMPLX/FA TAB GTB SCH (09:00)
[2019-04-08] MEDS: BACLOFEN 10 MG TAB GTB SCH ×2 (09:00→21:00)
[2019-04-08] MEDS: DOXAZOSIN 2 MG TAB NGT SCH (09:00)
[2019-04-08] MEDS: LOSARTAN 50 MG TAB NGT SCH (09:00)
[2019-04-08] MEDS: CLOPIDOGREL 75 MG TAB GTB SCH (09:00)
[2019-04-08] MEDS: QUETIAPINE 25 MG TAB GTB SCH ×2 (09:00→21:00)
[2019-04-08] MEDS: ASPIRIN 81 MG TAB PO SCH (09:00)
[2019-04-08] MEDS ORDERED: niCARdipine 50 MG in SOD CHLORIDE 0.9% 480 ML IV SCH (09:30)
[2019-04-08] MEDS: FENTAnyl (DRIP) 1000 mcg/100mL 100 ML IV SCH (09:51)
--- NOTE | 2019-04-08 10:12 | CONS ---
DATE OF ADMISSION: 03/29/2019 DATE OF CONSULTATION: REASON FOR CONSULTATION: Shortness of breath. Thank you, Dr. Muñiz, for this consultation. HISTORY OF PRESENT ILLNESS: This is a 58-year-old gentleman who was originally admitted on 9 with a history of end-stage renal failure on hemodialysis, coronary artery disease with bypass dawson t surgery, epilepsy, CVA with left hemiplegia, agitated and combative with acute encephalopathy. Yes terday, the patient had increasing respiratory distress, was obtunded, unresponsive, hypotensive requ iring intubation and mechanical ventilation. PAST MEDICAL HISTORY: Essential hypertension, end-stage renal failure, coronary artery disease, hist ory of epilepsy, history of CVA. MEDICATIONS: Per chart. ALLERGIES: NONE. SOCIAL HISTORY: Nonsmoker, no alcohol, no history of drug use. FAMILY HISTORY: Noncontributory. SYSTEMS REVIEW: A 12-point review of systems currently unable to perform. PHYSICAL EXAMINATION: GENERAL: Well-nourished, well-developed gentleman, orally intubated on mechanical ventilation. VITAL SIGNS: Currently afebrile, pulse is 70, blood pressure 128/74 on Levophed and propofol. NECK: Supple. No JVD or lymphadenopathy. CARDIAC: S1, S2, no added sounds or murmurs. CHEST: Diminished air entry bilaterally. ABDOMEN: Soft, nontender. No guarding or rebound. EXTREMITIES: No cyanosis, clubbing or edema. NEUROLOGIC: Grossly intact. No focal deficits. LABORATORY DATA: White count 11.6, hemoglobin 8.7, platelets 274. BUN 38, creatinine 7.26. Arteria l blood gas pH 7.42, pCO2 of 40, pO2 of 200. INR 1.16. DIAGNOSTIC DATA: Chest x-ray was reviewed, demonstrates congestive cardiac failure. IMPRESSION AND PLAN: Hypoxemic respiratory failure with septic shock, possible aspiration pneumonia w ith underlying end-stage renal failure, on hemodialysis. PLAN: 1. Continue vasopressor support. 2. Broad-spectrum antibiotics. 3. Hemodialysis as tolerated. 4. Anti-seizure medications. 5. DVT and GI prophylaxis. 6. Pringle culture. 7. DVT and GI prophylaxis. Dictated By: SAMMI MOSES MD SV/NTS Conf#: [id number] DID#: [id number] CC: STEWART WINTER MD;*End*
--- NOTE | 2019-04-08 10:22 | PN ---
Date/Time of Note Date/Time of Note DATE: 04/08/19 TIME: 10:21 Objective Vitals Vital Signs Date Temp Pulse Resp B/P (MAP) Pulse Ox O2 O2 Flow FiO2 Time Delivery Rate 04/08/19 76 18 96 40 09:06 04/08/19 128/74 Mechanical 08:00 (92) Ventilator 04/08/19 99.9 04:00 04/07/19 15.0 23:37 Intake and Output 04/07/19 04/07/19 04/08/19 1515:00 23:00 07:00 IntakeIntake Total 360.1643 ml OutputOutput Total 185 ml BalanceBalance 175.1643 ml Results Result Diagram: 04/08/19 0435 04/08/19 0435 Medications Medications Current Medications IV Flush (NS 3 ml) 3 ml PER PROTOCOL IV ; Start 03/29/19 at 13:30 Ondansetron HCl (Zofran Inj) 4 mg Q6H PRN IV NAUSEA/VOMITING Last administered on 04/07/19at 18:53; Admin Dose 4 MG; Start 03/29/19 at 13:30 Acetaminophen (Tylenol Tab) 650 mg Q6H PRN PO .PAIN 1-3 OR TEMP Last administered on 03/31/19at 05:48; Admin Dose 650 MG; Start 03/29/19 at 13:30 Hydralazine HCl (Apresoline) 10 mg Q4H PRN IV sbp >160 Last administered on 04/02/19at 15:15; Admin Dose 10 MG; Start 03/29/19 at 14:00 Miscellaneous Information 1 ea NOTE XX ; Start 03/29/19 at 14:30 Glucose (Glutose) 15 gm Q15M PRN PO DECREASED GLUCOSE; Start 03/29/19 at 14:30 Glucose (Glutose) 22.5 gm Q15M PRN PO DECREASED GLUCOSE; Start 03/29/19 at 14:30 Dextrose (D50w Syringe) 25 ml Q15M PRN IV DECREASED GLUCOSE; Start 03/29/19 at 14:30 Dextrose (D50w Syringe) 50 ml Q15M PRN IV DECREASED GLUCOSE; Start 03/29/19 at 14:30 Glucagon (Glucagen) 1 mg Q15M PRN IM DECREASED GLUCOSE; Start 03/29/19 at 14:30 Glucose (Glutose) 15 gm Q15M PRN BUCCAL DECREASED GLUCOSE; Start 03/29/19 at 14:30 Albumin Human 100 ml @ 100 mls/hr WITH DIALYSIS PRN IV SBP <90 DURING DIALYSIS Last administered on 04/03/19 21:18; Admin Dose 100 MLS/HR; Start 03/29/19 at 17:00 Albuterol/ Ipratropium (Duoneb) 3 ml Q2H RESP THERAPY PRN HHN WHEEZING AND RESP DISTRESS Last administered on 04/01/19 21:23; Admin Dose 3 ML; Start 03/29/19 at 18:00 Lorazepam (Ativan) 0.5 mg Q4H PRN IV AGITATION Last administered on 04/02/19 03:55; Admin Dose 0.5 MG; Start 03/29/19 at 18:00 IV Flush (NS 10 ml) 10 ml Q8 PRN IV IV PROTOCOL; Start 03/29/19 at 18:00 Labetalol HCl (Labetalol) 10 mg Q4H PRN IV sbp >160; Start 03/30/19 at 09:00 Haloperidol (Haldol) 5 mg Q6H PRN IM agitation Last administered on 03/31/19 00:10; Admin Dose 5 MG; Start 03/30/19 at 10:00 Heparin Sodium (Porcine) (Heparin (1000 Units/ml)) 3,200 unit AFTER DIALYSIS CATHETER Last administered on 04/05/19 11:04; Admin Dose 3,200 UNIT; Start 03/30/19 at 17:00 Atorvastatin Calcium (Lipitor) 40 mg HS NGT Last administered on 04/06/19 21:48; Admin Dose 40 MG; Start 03/31/19 at 21:00 Baclofen (Lioresal) 10 mg BID GTB Last administered on 04/07/19 08:23; Admin Dose 10 MG; Start 03/31/19 at 21:00 Doxazosin Mesylate (Cardura) 2 mg DAILY NGT Last administered on 04/07/19 08:24; Admin Dose 2 MG; Start 03/31/19 at 14:30 Gabapentin (Neurontin) 100 mg QHS PO Last administered on 04/06/19 21:48; Admin Dose 100 MG; Start 03/31/19 at 21:00 Losartan Potassium (Cozaar) 100 mg DAILY NGT Last administered on 04/07/19 08:23; Admin Dose 100 MG; Start 03/31/19 at 14:30 Sertraline HCl (Zoloft) 25 mg HS NGT Last administered on 04/06/19 21:49; Ad min Dose 25 MG; Start 03/31/19 at 21:00 Acetaminophen (Tylenol Liquid) 650 mg Q4H PRN PEG MILD PAIN(1-3)OR ELEVATED TEMP Last administered on 03/31/19 16:31; Admin Dose 650 MG; Start 03/31/19 at 16:00 Insulin Aspart (Novolog Insulin Pen) NOVOLOG *MILD* ALGORI... Q6 SC Last administered on 04/08/19 05:46; Admin Dose 2 UNIT; Start 04/02/19 at 12:00 Lactobacillus Acidophilus/ Rhamnosus (Culturelle) 1 cap TID GTB Last administered on 04/07/19 12:14; Admin Dose 1 CAP; Start 04/02/19 at 13:00 Carvedilol (Coreg) 25 mg BID NGT Last administered on 04/07/19 08:23; Admin Dose 25 MG; Start 04/02/19 at 21:00 Hydralazine HCl (Apresoline) 75 mg TID NGT Last administered on 04/07/19 12:26; Admin Dose 75 MG; Start 04/02/19 at 21:00 Epoetin [place]-epbx (Retacrit (Esrd)) 10,000 unit MoWeFr@1700 SC Last administered on 04/05/19 17:49; Admin Dose 10,000 UNIT; Start 04/03/19 at 19:30 Lansoprazole (Prevacid) 30 mg BID@0600,1800 GTB Last administered on 04/07/19 17:04; Admin Dose 30 MG; Start 04/04/19 at 18:00 Multivit/Ca Carb/ B Cmplx/FA/Prenat (Karena-Geovanni) 1 tab DAILY GTB Last administered on 04/07/19 08:22; Admin Dose 1 TAB; Start 04/04/19 at 11:30 Albuterol (Proventil 0.083% (Neb)) 2.5 mg Q6HWA RESP THERAPY HHN Last administered on 04/07/19 19:21; Admin Dose 2.5 MG; Start 04/04/19 at 14:00 Aspirin (Aspirin) 81 mg DAILY PO Last administered on 04/07/19at 08:23; Admin Dose 81 MG; Start 04/05/19 at 09:00 Clopidogrel Bisulfate (plaVIX) 75 mg DAILY GTB Last administered on 04/07/19at 08:23; Admin Dose 75 MG; Start 04/07/19 at 09:00 Quetiapine Fumarate (Seroquel) 50 mg BID GTB ; Start 04/07/19 at 09:00 Propofol 100 ml @ 2.097 mls/ hr Q12H PRN IV AGITATION Last administered on 04/08at 01:00; Admin Dose 2.097 MLS/HR; Start 04/08/19 at 00:00 Fentanyl 100 ml @ 2.5 mls/hr TITRATE IV Last administered on 04/08/19at 09:51; Admin Dose 2.5 MLS/HR; Start 04/08/19 at 00:00 Midazolam HCl 50 ml @ 1 mls/hr TITRATE PRN IV agitation; Start 04/08/19 at 00:00 Norepinephrine 250 ml @ 1.875 mls/ hr TITRATE IV Last administered on 04/08/19at 01:05; Admin Dose 1.875 MLS/HR; Start 04/08/19 at 00:00 Vancomycin HCl (Vanco Iv Per Pharmacy) VANCOMYCIN PER PHARMACY PER PROTOCOL XX ; Start 04/08/19 at 00:30 Piperacillin Sod/ Tazobactam Sod 50 ml @ 100 mls/hr Q8H IVPB Last administered on 04/08/19at 01:21; Admin Dose 100 MLS/HR; Start 04/08/19 at 00:30 Vancomycin HCl 1.5 gm/Sodium Chloride 250 ml @ 83.333 mls/ hr ONCE IVPB Last administered on 04/08/19at 01:12; Admin Dose 83.333 MLS/HR; Start 04/08/19 at 01:00; Stop 04/08/19 at 12:00 Miscellaneous Information (*Rx Drug Level Order Reminder*) VANCO RANDOM ONCE ONCE XX ; Start 04/10/19 at 05:00; Stop 04/10/19 at 05:01 Sodium Chloride 1,000 ml @ 30 mls/hr Q24H IV Last administered on 04/08/19at 03:48; Admin Dose 30 MLS/HR; Start 04/08/19 at 03:30 Levetiracetam 100 ml @ 400 mls/hr Q12 IVPB ; Start 04/08/19 at 09:30 Nicardipine HCl 50 mg/Sodium Chloride 500 ml @ 50 mls/hr TITRATE IV ; Start 04/08/19 at 09:30 Sodium Chloride 1,000 ml @ 40 mls/hr Q24H IV ; Start 04/08/19 at 10:30 VTE Prophylaxis Risk score [place] [facility] [place] risk: 3 SCD applied (from [facility] [place] No SCD contraindication: other Lines/Catheters IV Catheter Type: Winters in Place: No Assessment/Plan Hospital Course Subjective Patient decompensated last night, rapid response was called, patient has significant shortness of breath and worsening altered mental status, was intubated Objective Physical exam General: Patient is laying in bed intubated and sedated Mentation: Patient is not alert, Head: Normocephalic atraumatic Eyes: EOMI, pupils reactive to light Neck: Supple, nontender, midline Respiratory: Clear to auscultation bilaterally Cardiovascular: regular rate, no obvious murmurs Gastrointestinal: non-tender to palpation, bowel sounds heard. Neurological: Unable to assess Skin: No new skin lesions Assessment/Plan Acute hypoxic respiratory failure -Status post intubation -CT abdomen pelvis showing possible pneumonia which would make sense in this encephalopathic patient in the hospital -Broad-spectrum antibiotics -Cultures taken Septic shock -Secondary to likely pneumonia -Infectious disease consulted -Cultures taken, CT showing possibly distended bladder wall for cystitis however UTI is not necessarily revealing for infection -IV antibiotic Likely aspiration pneumonia -Would explain mild fever yesterday as well as symptoms and [employer]MENT [employer]ER that led to patient's intubation -IV antibiotic -Infectious disease on board 1. Acute on chronic encephalopathy - still restless and trying to get out of bed. Will increase Seroquel to 50mg BID and monitor - Neurology on board and appreciate recommendations. CT unrevealing 2. Hypertensive emergency-resolved for now - BP better controlled, hypotensive at the moment 3. Severe anemia- resolved - No active bleeding appreciated - EGD revealed moderate distal esophagitis and gastritis and duodenitis. Colonoscopy showed internal hemorrhoids - GI consultation appreciated. Will need repeat colonoscopy in 6 months - continue PPI 4. Leukocytosis- resolved - Cultures done - completed course of antibiotics 5. Dysphasia - PEG in place and on TF, however nursing had concerns over PEG tube placement, will switch out to GI and ensure are okay to use PEG tube before resuming oral medications 6. End-stage renal disease on hemodialysis - Nephrology on board and appreciate consultation. Continue HD 7. Coronary artery disease status post CABG history - continue home medications - continue aspirin and Plavix 8. Epilepsy - Continue Keppra 9. History of CVA with residual left-sided deficit and more recent CVA 1 month ago - Patient reportedly had a new stroke approximately 1 month ago at [facility] which is the cause of patient's current encephalopathic state - After speaking with daughter, appears this is patient's baseline after leaving [facility] proximally 1 week ago. Patient suffered CVA and subsequent long stay in the ICU which required intubation and PEG tube. Patient almost required tracheostomy however appear to have been able to be weaned off the ventilator. - Neurology consultation appreciated 10. BPH 11. Disposition -Patient intubated in the ICU, likely secondary to septic shock secondary to pneumonia, infectious disease has been consulted, keep in ICU monitor closely More than 40 minutes of critical care time has been spent on this encounter STEWART WINTER Apr 08, 2019 10:22
--- NOTE | 2019-04-08 10:28 | CONS ---
Consultation Date/Type/Reason Admit Date/Time Mar 29, 2019 at 13:16 Date/Time of Note DATE: 04/08/19 TIME: 10:27 Hx of Present Illness Patient is a male with a past medical history significant for end-stage renal disease on hemodialysis, coronary artery disease status post CABG, epilepsy, history of CVA with residual left-sided deficit, BPH who presents to [facility] for agitation. Currently patient is asleep secondary to antipsychotic sedation and not able to answer questions. According to nursing at bedside patient was sent from dialysis center as he was too agitated to complete dialysis. Past Medical History Medical History: congestive heart failure, coronary artery disease, high cholesterol, hypertension, other (ESRD on HD ) Home Meds Reported Medications Bisacodyl (Dulcolax) 10 Mg Supp.rect, 10 MG RC DAILY PRN for CONSTIPATION, SUPP .RECT 03/29/19 Sodium Phosphate,[place]-Dibasic (Enema Ready To Use) 133 Ml Enema, 133 ML RC EVERY 2 DAYS PRN for CONSTIPATION, ENEMA 03/29/19 Acetaminophen* (Acetaminophen*) 650 Mg Tablet, 650 MG GTB Q4 PRN for MILD PAIN LEVEL 1-3, #30 TAB AND FEVER 03/29/19 Acetaminophen* (Acetaminophen*) 500 MG Extra Strength Tablet, 1000 MG GTB Q4H P RN for MODERATE PAIN LEVEL 4-6, TAB 03/29/19 Acetaminophen* (Acetaminophen*) 500 MG Extra Strength Tablet, 1000 MG GTB BID PRN for GENERAL BODY PAIN, TAB 03/29/19 Amino Acids/Protein Hydrolys (Pro-Stat Awc Liquid) 30 Ml Liquid, 30 ML GTB DAILY SUGAR FREE 03/29/19 Multivitamin* (Daily Value*) 1 Each Tablet, 1 TAB GTB DAILY, TAB 03/29/19 Ascorbic Acid* (Vitamin C*) 500 Mg Capsule.sa, 500 MG GTB DAILY, CAP 03/29/19 Ferrous Sulfate (Ferrous Sulfate) 300 Mg/5 Ml Liquid, 325 MG GTB DAILY 03/29/19 Cran/Vitc/Mannose/Inulin/Brom (Uti-Stat Liquid) 3,875 Mg/30 Ml Liquid, 3875 MG GTB DAILY 03/29/19 Cranberry Extract (Cranberry) 425 Mg Capsule, 425 MG GTB DAILY, CAP 03/29/19 Insulin Glulisine (Apidra Solostar) 100 Unit/1 Ml Insuln.pen, 4 UNIT SQ TIDM A, #1 TUB 03/29/19 Insulin Glargine,Hum.rec.anlog (Basaglar Pavanpen U-100) 100 Unit/1 Ml Insuln.pen, 25 UNIT SC QHS, EA 03/29/19 Insulin Regular, Human (Humulin R) 100 Unit/1 Ml Vial, 0 IJ AC MEALS AND BEDTIME, VIAL 0-150 = 0 UNIT 151-200 = 1 UNIT 201-250 = 2 UNITS 251-300 = 3 UNITS 301-350 = 4 UNITS 351-400 = 5 UNITS OVER 400 GIVE 6 UNITS UNDER 70 OR OVER 400 NOTIFY 03/29/19 Sertraline Hcl* (Sertraline Hcl*) 25 Mg Tablet, 25 MG GTB DAILY, #30 TAB 03/29/19 Lorazepam* (Ativan*) 0.5 Mg Tablet, 0.5 MG GTB DAILY PRN for ANXIETY, #30 TAB 03/29/19 Quetiapine Fumarate* (Seroquel*) 25 Mg Tablet, 25 MG GTB HS, #30 TAB 03/29/19 Lorazepam* (Lorazepam*) 0.5 Mg Tablet, 0.5 MG GTB DAILY PRN for ANXIETY, TAB 03/29/19 Clonidine Hcl* (Clonidine Hcl*) 0.1 Mg Tab, 0.1 MG GTB DAILY PRN for ELEVATED BLOOD PRESSURE, TAB SBP >160 03/29/19 Azelastine Hcl* (Azelastine Hcl*) 137 Mcg/0.137 Ml [place].pump, 2 SPRAYS NASAL BID, #1 EA TO EACH NOSTRIL 03/29/19 Carvedilol* (Carvedilol*) 12.5 Mg Tablet, 12.5 MG GTB BID, #60 TAB 03/29/19 Diltiazem Hcl* (Cardizem CD*) 240 Mg Cap.sr.24h, 240 MG GTB DAILY, #30 CAP 03/29/19 Ergocalciferol (Vitamin D2) (VITAMIN D2) 50,000 Unit Capsule, 48697 UNIT GTB EVERY MONDAY, CAP 03/29/19 Hydralazine Hcl* (Hydralazine Hcl*) 50 Mg Tab, 50 MG GTB TID PRN for ELEVATED BLOOD PRESSURE, #60 TAB 03/29/19 Losartan Potassium* (Losartan Potassium*) 100 Mg Tablet, 100 MG GTB DAILY, TAB 03/29/19 Metoprolol Succinate* (Toprol XL*) 25 Mg Tab.sr.24h, 25 MG GTB DAILY, #30 TAB 03/29/19 Linagliptin (TRADJENTA) 5 Mg Tablet, 5 MG GTB DAILY, TAB 03/29/19 Albuterol Sulfate* (Proair HFA*) 8.5 Gm Hfa.aer.ad, 2 PUFF INH Q4H PRN for WHEEZING AND SOB, #1 INHALER 03/29/19 Ranitidine Hcl* (Ranitidine Hcl*) 300 Mg Tablet, 300 MG GTB HS, #30 TAB 03/29/19 Levetiracetam* (Keppra*) 500 Mg Tablet, 500 MG GTB BID, TAB 03/29/19 Gabapentin* (Gabapentin*) 100 Mg Capsule, 100 MG GTB QHS, #90 CAP 03/29/19 Doxazosin Mesylate* (Doxazosin Mesylate*) 2 Mg Tablet, 2 MG GTB HS, TAB 03/29/19 Docusate Sodium* (Dok*) 100 Mg Tablet, 100 MG GTB BID, #60 CAP 03/29/19 Cyanocobalamin (Vitamin B-12) (Cyanocobalamin Injection) 1,000 Mcg/1 Ml Vial, 1000 MCG IJ EVERY MONDAY, VIAL 03/29/19 Clopidogrel Bisulfate (Clopidogrel) 75 Mg Tablet, 75 MG GTB DAILY, #30 TAB 03/29/19 Calcium Carbonate ([place]-500) 500 Mg Tablet, 500 MG GTB DAILY, TAB 03/29/19 Baclofen* (Baclofen*) 10 Mg Tablet, 10 MG GTB BID, TAB 03/29/19 Atorvastatin* (Atorvastatin*) 40 Mg Tablet, 40 MG GTB QHS, #30 TAB 03/29/19 Aspirin (Low Dose Aspirin) 81 Mg Tablet.dr, 81 MG GTB DAILY, #30 TAB 03/29/19 Medications Current Medications IV Flush (NS 3 ml) 3 ml PER PROTOCOL IV ; Start 03/29/19 at 13:30 Ondansetron HCl (Zofran Inj) 4 mg Q6H PRN IV NAUSEA/VOMITING Last administered on 04/07/19at 18:53; Admin Dose 4 MG; Start 03/29/19 at 13:30 Acetaminophen (Tylenol Tab) 650 mg Q6H PRN PO .PAIN 1-3 OR TEMP Last administered on 03/31/19at 05:48; Admin Dose 650 MG; Start 03/29/19 at 13:30 Hydralazine HCl (Apresoline) 10 mg Q4H PRN IV sbp >160 Last administered on 04/02/19at 15:15; Admin Dose 10 MG; Start 03/29/19 at 14:00 Miscellaneous Information 1 ea NOTE XX ; Start 03/29/19 at 14:30 Glucose (Glutose) 15 gm Q15M PRN PO DECREASED GLUCOSE; Start 03/29/19 at 14:30 Glucose (Glutose) 22.5 gm Q15M PRN PO DECREASED GLUCOSE; Start 03/29/19 at 14:30 Dextrose (D50w Syringe) 25 ml Q15M PRN IV DECREASED GLUCOSE; Start 03/29/19 at 14:30 Dextrose (D50w Syringe) 50 ml Q15M PRN IV DECREASED GLUCOSE; Start 03/29/19 at 14:30 Glucagon (Glucagen) 1 mg Q15M PRN IM DECREASED GLUCOSE; Start 03/29/19 at 14:30 Glucose (Glutose) 15 gm Q15M PRN BUCCAL DECREASED GLUCOSE; Start 03/29/19 at 14:30 Albumin Human 100 ml @ 100 mls/hr WITH DIALYSIS PRN IV SBP <90 DURING DIALYSIS Last administered on 04/03/19at 21:18; Admin Dose 100 MLS/HR; Start 03/29/19 at 17:00 Albuterol/ Ipratropium (Duoneb) 3 ml Q2H RESP THERAPY PRN HHN WHEEZING AND RESP DISTRESS Last administered on 04/01/19at 21:23; Admin Dose 3 ML; Start 03/29/19 at 18:00 Lorazepam (Ativan) 0.5 mg Q4H PRN IV AGITATION Last administered on 04/02/19at 03:55; Admin Dose 0.5 MG; Start 03/29/19 at 18:00 IV Flush (NS 10 ml) 10 ml Q8 PRN IV IV PROTOCOL; Start 03/29/19 at 18:00 Labetalol HCl (Labetalol) 10 mg Q4H PRN IV sbp >160; Start 03/30/19 at 09:00 Haloperidol (Haldol) 5 mg Q6H PRN IM agitation Last administered on 03/31/19 00:10; Admin Dose 5 MG; Start 03/30/19 at 10:00 Heparin Sodium (Porcine) (Heparin (1000 Units/ml)) 3,200 unit AFTER DIALYSIS C ATHETER Last administered on 04/05/19 11:04; Admin Dose 3,200 UNIT; Start 03/30/19 at 17:00 Atorvastatin Calcium (Lipitor) 40 mg HS NGT Last administered on 04/06/19 21:48; Admin Dose 40 MG; Start 03/31/19 at 21:00 Baclofen (Lioresal) 10 mg BID GTB Last administered on 04/07/19 08:23; Admin Dose 10 MG; Start 03/31/19 at 21:00 Doxazosin Mesylate (Cardura) 2 mg DAILY NGT Last administered on 04/07/19 08:24; Admin Dose 2 MG; Start 03/31/19 at 14:30 Gabapentin (Neurontin) 100 mg QHS PO Last administered on 04/06/19 21:48; Admin Dose 100 MG; Start 03/31/19 at 21:00 Losartan Potassium (Cozaar) 100 mg DAILY NGT Last administered on 04/07/19 08:23; Admin Dose 100 MG; Start 03/31/19 at 14:30 Sertraline HCl (Zoloft) 25 mg HS NGT Last administered on 04/06/19 21:49; Admin Dose 25 MG; Start 03/31/19 at 21:00 Acetaminophen (Tylenol Liquid) 650 mg Q4H PRN PEG MILD PAIN(1-3)OR ELEVATED T EMP Last administered on 03/31/19 16:31; Admin Dose 650 MG; Start 03/31/19 at 16:00 Insulin Aspart (Novolog Insulin Pen) NOVOLOG *MILD* ALGORI... Q6 SC Last administered on 04/08/19 05:46; Admin Dose 2 UNIT; Start 04/02/19 at 12:00 Lactobacillus Acidophilus/ Rhamnosus (Culturelle) 1 cap TID GTB Last administered on 04/07/19 12:14; Admin Dose 1 CAP; Start 04/02/19 at 13:00 Carvedilol (Coreg) 25 mg BID NGT Last administered on 04/07/19 08:23; Admin Dose 25 MG; Start 04/02/19 at 21:00 Hydralazine HCl (Apresoline) 75 mg TID NGT Last administered on 04/07/19 12:26; Admin Dose 75 MG; Start 04/02/19 at 21:00 Epoetin [place]-epbx (Retacrit (Esrd)) 10,000 unit MoWeFr@1700 SC Last administered on 04/05/19 17:49; Admin Dose 10,000 UNIT; Start 04/03/19 at 19:30 Lansoprazole (Prevacid) 30 mg BID@0600,1800 GTB Last administered on 04/07/19 17:04; Admin Dose 30 MG; Start 04/04/19 at 18:00 Multivit/Ca Carb/ B Cmplx/FA/Prenat (Karena-Geovanni) 1 tab DAILY GTB Last administered on 04/07/19 08:22; Admin Dose 1 TAB; Start 04/04/19 at 11:30 Albuterol (Proventil 0.083% (Neb)) 2.5 mg Q6HWA RESP THERAPY HHN Last administered on 04/07/19 19:21; Admin Dose 2.5 MG; Start 04/04/19 at 14:00 Aspirin (Aspirin) 81 mg DAILY PO Last administered on 04/07/19 08:23; Admin Dose 81 MG; Start 04/05/19 at 09:00 Clopidogrel Bisulfate (plaVIX) 75 mg DAILY GTB Last administered on 04/07/19 08:23; Admin Dose 75 MG; Start 04/07/19 at 09:00 Quetiapine Fumarate (Seroquel) 50 mg BID GTB ; Start 04/07/19 at 09:00 Propofol 100 ml @ 2.097 mls/ hr Q12H PRN IV AGITATION Last administered on 04/08/19 01:00; Admin Dose 2.097 MLS/HR; Start 04/08/19 at 00:00 Fentanyl 100 ml @ 2.5 mls/hr TITRATE IV Last administered on 04/08/19 09:51; Admin Dose 2.5 MLS/HR; Start 04/08/19 at 00:00 Midazolam HCl 50 ml @ 1 mls/hr TITRATE PRN IV agitation; Start 04/08/19 at 00:00 Norepinephrine 250 ml @ 1.875 mls/ hr TITRATE IV Last administered on 04/08/19at 01:05; Admin Dose 1.875 MLS/HR; Start 04/08/19 at 00:00 Vancomycin HCl (Vanco Iv Per Pharmacy) VANCOMYCIN PER PHARMACY PER PROTOCOL XX ; Start 04/08/19 at 00:30 Piperacillin Sod/ Tazobactam Sod 50 ml @ 100 mls/hr Q8H IVPB Last administered on 04/08/19at 01:21; Admin Dose 100 MLS/HR; Start 04/08/19 at 00:30 Vancomycin HCl 1.5 gm/Sodium Chloride 250 ml @ 83.333 mls/ hr ONCE IVPB Last administered on 04/08/19at 01:12; Admin Dose 83.333 MLS/HR; Start 04/08/19 at 01:00; Stop 04/08/19 at 12:00 Miscellaneous Information (*Rx Drug Level Order Reminder*) VANCO RANDOM ONCE ONCE XX ; Start 04/10/19 at 05:00; Stop 04/10/19 at 05:01 Sodium Chloride 1,000 ml @ 30 mls/hr Q24H IV Last administered on 04/08/19at 03:48; Admin Dose 30 MLS/HR; Start 04/08/19 at 03:30 Levetiracetam 100 ml @ 400 mls/hr Q12 IVPB ; Start 04/08/19 at 09:30 Nicardipine HCl 50 mg/Sodium Chloride 500 ml @ 50 mls/hr TITRATE IV ; Start 04/08/19 at 09:30 Sodium Chloride 1,000 ml @ 40 mls/hr Q24H IV ; Start 04/08/19 at 10:30 Allergies: Coded Allergies: No Known Drug Allergies (Unverified Allergy, Unknown, 05/31/18) Past Surgical History Past Surgical Hx: coronary bypass surgery, other (Right chest permacath ) Social History Alcohol Use: none Smoking Status: Never smoker Drug Use: none Exam/Review of Systems Exam Vitals Vital Signs Date Temp Pulse Resp B/P (MAP) Pulse Ox O2 O2 Flow FiO2 Time Delivery Rate 04/08/19 76 18 96 40 09:06 04/08/19 128/74 Mechanical 08:00 (92) Ventilator 04/08/19 99.9 04:00 04/07/19 15.0 23:37 Intake and Output 04/07/19 04/07/19 04/08/19 1515:00 23:00 07:00 IntakeIntake Total 360.1643 ml OutputOutput Total 185 ml BalanceBalance 175.1643 ml Results Result Diagram: 04/08/19 0435 04/08/19 0435 Results 24hrs Laboratory Tests Test 04/07/19 12:12 04/07/19 15:33 04/07/19 16:36 04/07/19 20:14 Bedside Glucose 249 H 242 H 189 188 Test 04/07/19 21:09 04/07/19 23:21 04/07/19 23:22 04/07/19 23:58 Lactic Acid 1.7 Level Blood Gas Blood arterial Specimen Source Arterial Blood 04/07/2019 11:25 Date Drawn :29 PM Arterial Blood 7.390 pH (Temp corrected) Arterial Blood 46.3 H pCO2 (Temp correct) Arterial Blood 86.8 pO2 (Temp corrected) Arterial Blood 27.4 H HCO3 Arterial Blood 2.0 Base Excess Arterial Blood 95.5 Oxygen Saturatio n Santino Test N/A Arterial Blood LB Gas Puncture Site Arterial 0 Blood Carboxyhem oglobin Arterial Blood 0.2 Methemoglobin Blood Gas A-a O2 579.9 H Differential Oxyhemoglobin 95.3 Percent Blood Gas 37.0 Temperature Blood Gas MASK - NRB Modality FiO2 100.0 Blood Gas EMERITA Critical Value Read Back Blood Gas CA Notified Whom Blood Gas 04/07/2019 11:35 Notified Time :46 PM Bedside Glucose 184 Urine Color YELLOW Urine Clarity SLIGHTLY CLOUDY A Urine pH 8.0 Urine Specific 1.009 [place] Urine Ketones NEGATIVE Urine Nitrite NEGATIVE Urine Bilirubin NEGATIVE Urine NEGATIVE Urobilinogen Urine Leukocyte NEGATIVE Esterase Urine 3 Microscopic RBC Urine 12 H Microscopic WBC Urine Bacteria FEW A Urine Hemoglobin NEGATIVE Urine Glucose 1+ H Urine Total 2+ H Protein Test 04/08/19 00:08 04/08/19 01:00 04/08/19 01:35 04/08/19 04:35 White Blood 9.3 11.6 #H Count Red Blood Count 2.89 L 2.91 L Hemoglobin 8.6 L 8.7 L Hematocrit 27.6 L 27.5 L Mean Corpuscular 95.5 94.5 Volume Mean Corpuscular 29.8 29.9 Hemoglobin Mean Corpuscular 31.2 L 31.6 L Hemoglobin Dimple nt Red Cell 16.4 H 17.1 H Distribution Width Platelet Count 234 274 Mean Platelet 10.3 10.7 H Volume Immature 0.300 0.200 Granulocytes % Neutrophils % 89.7 H Lymphocytes % 5.9 L Monocytes % 3.4 Eosinophils % 0.4 Basophils % 0.3 Nucleated Red 0.0 0.0 Blood Cells % Immature 0.030 0.020 Granulocytes # Neutrophils # 8.3 H Lymphocytes # 0.6 L Monocytes # 0.3 Eosinophils # 0.0 Basophils # 0.0 Nucleated Red 0.0 Blood Cells # Sodium Level 141 140 Potassium Level 4.3 4.4 Chloride Level 104 101 Carbon Dioxide 26 29 Level Anion Gap 11 10 Blood Urea 31 H 38 H Nitrogen Creatinine 6.34 H 7.26 H Est Glomerular 9 L Filtrat Rate mL/min Glucose Level 159 186 Calcium Level 8.2 L 9.1 Total Bilirubin 0.1 L Direct Bilirubin 0.00 Indirect 0.1 Bilirubin Aspartate Amino 21 Transf (AST/SGOT ) Alanine 9 L Aminotransferase (ALT/SGPT) Alkaline 72 Phosphatase Total Protein 6.1 Albumin 2.9 L 2.8 L Globulin 3.20 Albumin/Globulin 0.90 Ratio Blood Gas Blood arterial Specimen Source Arterial Blood 04/08/2019 1:20:3 Date Drawn 1 AM Arterial Blood 7.421 pH (Temp corrected) Arterial Blood 40.6 pCO2 (Temp correct) Arterial Blood 200.7 H pO2 (Temp corrected) Arterial Blood 25.8 HCO3 Arterial Blood 1.3 Base Excess Arterial Blood 99.3 H Oxygen Saturatio n Santino Test ACCEPTAB Arterial Blood Right Radial Gas Puncture Site Arterial 0 Blood Carboxyhem oglobin Arterial Blood 0.3 Methemoglobin Blood Gas A-a O2 471.7 H Differential Oxyhemoglobin 99.0 Percent Blood Gas 37.0 Temperature Blood Gas 18.0 Respiration Rate Blood Gas Actual 18 Respiration Rate Blood Gas VENT - AC Modality FiO2 100.0 Blood Gas Tidal 500.0 Volume Blood Gas Low 5.0 PEEP Setting Blood Gas CA Notified Whom Blood Gas 04/08/2019 1:30:1 Notified Time 3 AM Bedside Glucose 180 Segmented 49 Neutrophils % (Manual) Band Neutrophils 39 H % (Manual) Lymphocytes % 9 L (Manual) Monocytes % 3 (Manual) Neutrophils # 6.2 (Manual) Band Neutrophils 4.5 H # Lymphocytes 1.0 (Manual) Monocytes # 0.3 (Manual) Platelet NORMAL Estimate Giant Platelets 2 H Polychromasia 2+ Anisocytosis 1+ Macrocytosis 1+ Ovalocytes 1+ Phosphorus Level 3.0 Magnesium Level 2.3 Test 04/08/19 05:42 Bedside Glucose 198 Medications Medication Current Medications IV Flush (NS 3 ml) 3 ml PER PROTOCOL IV ; Start 03/29/19 at 13:30 Ondansetron HCl (Zofran Inj) 4 mg Q6H PRN IV NAUSEA/VOMITING Last administered on 04/07/19 18:53; Admin Dose 4 MG; Start 03/29/19 at 13:30 Acetaminophen (Tylenol Tab) 650 mg Q6H PRN PO .PAIN 1-3 OR TEMP Last administered on 03/31/19at 05:48; Admin Dose 650 MG; Start 03/29/19 at 13:30 Hydralazine HCl (Apresoline) 10 mg Q4H PRN IV sbp >160 Last administered on 04/02/19at 15:15; Admin Dose 10 MG; Start 03/29/19 at 14:00 Miscellaneous Information 1 ea NOTE XX ; Start 03/29/19 at 14:30 Glucose (Glutose) 15 gm Q15M PRN PO DECREASED GLUCOSE; Start 03/29/19 at 14:30 Glucose (Glutose) 22.5 gm Q15M PRN PO DECREASED GLUCOSE; Start 03/29/19 at 14:30 Dextrose (D50w Syringe) 25 ml Q15M PRN IV DECREASED GLUCOSE; Start 03/29/19 at 14:30 Dextrose (D50w Syringe) 50 ml Q15M PRN IV DECREASED GLUCOSE; Start 03/29/19 at 14:30 Glucagon (Glucagen) 1 mg Q15M PRN IM DECREASED GLUCOSE; Start 03/29/19 at 14:30 Glucose (Glutose) 15 gm Q15M PRN BUCCAL DECREASED GLUCOSE; Start 03/29/19 at 14:30 Albumin Human 100 ml @ 100 mls/hr WITH DIALYSIS PRN IV SBP <90 DURING DIALYSIS Last administered on 04/03/19at 21:18; Admin Dose 100 MLS/HR; Start 03/29/19 at 17:00 Albuterol/ Ipratropium (Duoneb) 3 ml Q2H RESP THERAPY PRN HHN WHEEZING AND RESP DISTRESS Last administered on 04/01/19 21:23; Admin Dose 3 ML; Start 03/29/19 at 18:00 Lorazepam (Ativan) 0.5 mg Q4H PRN IV AGITATION Last administered on 04/02/19 03:55; Admin Dose 0.5 MG; Start 03/29/19 at 18:00 IV Flush (NS 10 ml) 10 ml Q8 PRN IV IV PROTOCOL; Start 03/29/19 at 18:00 Labetalol HCl (Labetalol) 10 mg Q4H PRN IV sbp >160; Start 03/30/19 at 09:00 Haloperidol (Haldol) 5 mg Q6H PRN IM agitation Last administered on 03/31/19 00:10; Admin Dose 5 MG; Start 03/30/19 at 10:00 Heparin Sodium (Porcine) (Heparin (1000 Units/ml)) 3,200 unit AFTER DIALYSIS CATHETER Last administered on 04/05/19 11:04; Admin Dose 3,200 UNIT; Start 03/30/19 at 17:00 Atorvastatin Calcium (Lipitor) 40 mg HS NGT Last administered on 04/06/19 21:48; Admin Dose 40 MG; Start 03/31/19 at 21:00 Baclofen (Lioresal) 10 mg BID GTB Last administered on 04/07/19 08:23; Admin Dose 10 MG; Start 03/31/19 at 21:00 Doxazosin Mesylate (Cardura) 2 mg DAILY NGT Last administered on 04/07/19 08:24; Admin Dose 2 MG; Start 03/31/19 at 14:30 Gabapentin (Neurontin) 100 mg QHS PO Last administered on 04/06/19 21:48; Admin Dose 100 MG; Start 03/31/19 at 21:00 Losartan Potassium (Cozaar) 100 mg DAILY NGT Last administered on 04/07/19 08:23; Admin Dose 100 MG; Start 03/31/19 at 14:30 Sertraline HCl (Zoloft) 25 mg HS NGT Last administered on 04/06/19 21:49; Admin Dose 25 MG; Start 03/31/19 at 21:00 Acetaminophen (Tylenol Liquid) 650 mg Q4H PRN PEG MILD PAIN(1-3)OR ELEVATED TEMP Last administered on 03/31/19 16:31; Admin Dose 650 MG; Start 03/31/19 at 16:00 Insulin Aspart (Novolog Insulin Pen) NOVOLOG *MILD* ALGORI... Q6 SC Last administered on 04/08/19 05:46; Admin Dose 2 UNIT; Start 04/02/19 at 12:00 Lactobacillus Acidophilus/ Rhamnosus (Culturelle) 1 cap TID GTB Last administered on 04/07/19 12:14; Admin Dose 1 CAP; Start 04/02/19 at 13:00 Carvedilol (Coreg) 25 mg BID NGT Last administered on 04/07/19 08:23; Admin Dose 25 MG; Start 04/02/19 at 21:00 Hydralazine HCl (Apresoline) 75 mg TID NGT Last administered on 04/07/19 12:26; Admin Dose 75 MG; Start 04/02/19 at 21:00 Epoetin [place]-epbx (Retacrit (Esrd)) 10,000 unit MoWeFr@1700 SC Last administered on 04/05/19 17:49; Admin Dose 10,000 UNIT; Start 04/03/19 at 19:30 Lansoprazole (Prevacid) 30 mg BID@0600,1800 GTB Last administered on 04/07/19 17:04; Admin Dose 30 MG; Start 04/04/19 at 18:00 Multivit/Ca Carb/ B Cmplx/FA/Prenat (Karena-Geovanni) 1 tab DAILY GTB Last administered on 04/07/19 08:22; Admin Dose 1 TAB; Start 04/04/19 at 11:30 Albuterol (Proventil 0.083% (Neb)) 2.5 mg Q6HWA RESP THERAPY HHN Last administered on 04/07/19 19:21; Admin Dose 2.5 MG; Start 04/04/19 at 14:00 Aspirin (Aspirin) 81 mg DAILY PO Last administered on 04/07/19 08:23; Admin Dose 81 MG; Start 04/05/19 at 09:00 Clopidogrel Bisulfate (plaVIX) 75 mg DAILY GTB Last administered on 04/07/19 08:23; Admin Dose 75 MG; Start 04/07/19 at 09:00 Quetiapine Fumarate (Seroquel) 50 mg BID GTB ; Start 04/07/19 at 09:00 Propofol 100 ml @ 2.097 mls/ hr Q12H PRN IV AGITATION Last administered on 04/08/19at 01:00; Admin Dose 2.097 MLS/HR; Start 04/08/19 at 00:00 Fentanyl 100 ml @ 2.5 mls/hr TITRATE IV Last administered on 04/08/19at 09:51; Admin Dose 2.5 MLS/HR; Start 04/08/19 at 00:00 Midazolam HCl 50 ml @ 1 mls/hr TITRATE PRN IV agitation; Start 04/08/19 at 00:00 Norepinephrine 250 ml @ 1.875 mls/ hr TITRATE IV Last administered on 04/08/19at 01:05; Admin Dose 1.875 MLS/HR; Start 04/08/19 at 00:00 Vancomycin HCl (Vanco Iv Per Pharmacy) VANCOMYCIN PER PHARMACY PER PROTOCOL XX ; Start 04/08/19 at 00:30 Piperacillin Sod/ Tazobactam Sod 50 ml @ 100 mls/hr Q8H IVPB Last administered on 04/08/19at 01:21; Admin Dose 100 MLS/HR; Start 04/08/19 at 00:30 Vancomycin HCl 1.5 gm/Sodium Chloride 250 ml @ 83.333 mls/ hr ONCE IVPB Last administered on 04/08/19at 01:12; Admin Dose 83.333 MLS/HR; Start 04/08/19 at 01:00; Stop 04/08/19 at 12:00 Miscellaneous Information (*Rx Drug Level Order Reminder*) VANCO RANDOM ONCE ONCE XX ; Start 04/10/19 at 05:00; Stop 04/10/19 at 05:01 Sodium Chloride 1,000 ml @ 30 mls/hr Q24H IV Last administered on 04/08/19at 03:48; Admin Dose 30 MLS/HR; Start 04/08/19 at 03:30 Levetiracetam 100 ml @ 400 mls/hr Q12 IVPB ; Start 04/08/19 at 09:30 Nicardipine HCl 50 mg/Sodium Chloride 500 ml @ 50 mls/hr TITRATE IV ; Start 04/08/19 at 09:30 Sodium Chloride 1,000 ml @ 40 mls/hr Q24H IV ; Start 04/08/19 at 10:30 JUAN BARAHONA Apr 08, 2019 10:28
[2019-04-08] MEDS: MIDAZOLAM (DRIP) 50 mg/50 mL 50 ML IV PRN ×2 (10:56→22:04)
[2019-04-08] MEDS: HEPARIN 1000 UNITS/ML 10 ML INJ CATHETER SCH (11:16)
--- NOTE | 2019-04-08 11:28 | CONS ---
Assessment/Plan Assessment/Plan Assessment/Plan (Recall) 58 M c/ reported Hx of stroke, ESRD and other comorbidities, who was initially admitted for evaluation and management of agitation...for which neurology was consulted. The clinical picture was thought consistent w/ delirium in the context of recent and prolonged hospitalization and subsequent transfer to skilled care. He subsequently returned to his mental status baseline.. Head CT was unrevealing. Then on 04/07, the patient developed ams in the context of hypotension and acute respiratory failure, requiring intubation and pressor support.. Heis now thought to have aspiration pneumonia, which could certainly exacerbate a chronic encephalopathy.. A recurrent, acute cerebrovascular process is additionally considered.. P: Repeat Head CT when medically able Agree w/ Plavix daily for now, for secondary prevention (LDL is at goal) Continued medical management and supportive care per primary Limit sedating medications, where possible Will follow clinically Consultation Date/Type/Reason Admit Date/Time Mar 29, 2019 at 13:16 Type of Consult Neurology Reason for Consultation ams Requesting Provider: LILLIAN ZHANG MD Date/Time of Note DATE: 04/08/19 TIME: 11:18 24 HR Interval Summary Free Text/Dictation Became hypotensive and altered overnight... Now Tx to ICU s/p intubation Subjective hx not possible: pt non-verbal, pt critical Exam/Review of Systems Exam Vitals Vital Signs Date Temp Pulse Resp B/P (MAP) Pulse Ox O2 O2 Flow FiO2 Time Delivery Rate 04/08/19 76 18 96 40 09:06 04/08/19 128/74 Mechanical 08:00 (92) Ventilator 04/08/19 99.9 04:00 04/07/19 15.0 23:37 Intake and Output 04/07/19 04/07/19 04/08/19 1515:00 23:00 07:00 IntakeIntake Total 360.1643 ml OutputOutput Total 185 ml BalanceBalance 175.1643 ml Exam PE: Gen Appearance: No Apparent Distress HEENT: Intubated Cardiovascular: Regular rate Abdomen: Soft Extremities: Dry NE: The patient was comatose. Cranial nerve examination was limited by mental status. Pupils were equal and reactive to light. There was no afferent pupillary defect. Funduscopic examination was limited. Face was grossly symmetric, w/ present corneal and cough reflexes. Tone was normal. Muscle bulk was normal. I did not see fasciculations. The patient withdrew to noxious stimulation x 4. Coordination and gait testing was limited by mental status. Arm and leg reflexes were within normal limits and symmetric. Anderson's sign was absent. Plantar responses were flexor. Results Result Diagram: 04/08/19 0435 04/08/19 0435 Results 24hrs Laboratory Tests Test 04/07/19 12:12 04/07/19 15:33 04/07/19 16:36 04/07/19 20:14 Bedside Glucose 249 H 242 H 189 188 Test 04/07/19 21:09 04/07/19 23:21 04/07/19 23:22 04/07/19 23:58 Lactic Acid 1.7 Level Blood Gas Blood arterial Specimen Source Arterial Blood 04/07/2019 11:25 Date Drawn :29 PM Arterial Blood 7.390 pH (Temp corrected) Arterial Blood 46.3 H pCO2 (Temp correct) Arterial Blood 86.8 pO2 (Temp corrected) Arterial Blood 27.4 H HCO3 Arterial Blood 2.0 Base Excess Arterial Blood 95.5 Oxygen Saturatio n Santino Test N/A Arterial Blood LB Gas Puncture Site Arterial 0 Blood Carboxyhem oglobin Arterial Blood 0.2 Methemoglobin Blood Gas A-a O2 579.9 H Differential Oxyhemoglobin 95.3 Percent Blood Gas 37.0 Temperature Blood Gas MASK - NRB Modality FiO2 100.0 Blood Gas EMERITA Critical Value Read Back Blood Gas YASMINE Notified Whom Blood Gas 04/07/2019 11:35 Notified Time :46 PM Bedside Glucose 184 Urine Color YELLOW Urine Clarity SLIGHTLY CLOUDY A Urine pH 8.0 Urine Specific 1.009 [place] Urine Ketones NEGATIVE Urine Nitrite NEGATIVE Urine Bilirubin NEGATIVE Urine NEGATIVE Urobilinogen Urine Leukocyte NEGATIVE Esterase Urine 3 Microscopic RBC Urine 12 H Microscopic WBC Urine Bacteria FEW A Urine Hemoglobin NEGATIVE Urine Glucose 1+ H Urine Total 2+ H Protein Test 04/08/19 00:08 04/08/19 01:00 04/08/19 01:35 04/08/19 04:35 White Blood 9.3 11.6 #H Count Red Blood Count 2.89 L 2.91 L Hemoglobin 8.6 L 8.7 L Hematocrit 27.6 L 27.5 L Mean Corpuscular 95.5 94.5 Volume Mean Corpuscular 29.8 29.9 Hemoglobin Mean Corpuscular 31.2 L 31.6 L Hemoglobin Dimple nt Red Cell 16.4 H 17.1 H Distribution Width Platelet Count 234 274 Mean Platelet 10.3 10.7 H Volume Immature 0.300 0.200 Granulocytes % Neutrophils % 89.7 H Lymphocytes % 5.9 L Monocytes % 3.4 Eosinophils % 0.4 Basophils % 0.3 Nucleated Red 0.0 0.0 Blood Cells % Immature 0.030 0.020 Granulocytes # Neutrophils # 8.3 H Lymphocytes # 0.6 L Monocytes # 0.3 Eosinophils # 0.0 Basophils # 0.0 Nucleated Red 0.0 Blood Cells # Sodium Level 141 140 Potassium Level 4.3 4.4 Chloride Level 104 101 Carbon Dioxide 26 29 Level Anion Gap 11 10 Blood Urea 31 H 38 H Nitrogen Creatinine 6.34 H 7.26 H Est Glomerular 9 L Filtrat Rate mL/min Glucose Level 159 186 Calcium Level 8.2 L 9.1 Total Bilirubin 0.1 L Direct Bilirubin 0.00 Indirect 0.1 Bilirubin Aspartate Amino 21 Transf (AST/SGOT ) Alanine 9 L Aminotransferase (ALT/SGPT) Alkaline 72 Phosphatase Total Protein 6.1 Albumin 2.9 L 2.8 L Globulin 3.20 Albumin/Globulin 0.90 Ratio Blood Gas Blood arterial Specimen Source Arterial Blood 04/08/2019 1:20:3 Date Drawn 1 AM Arterial Blood 7.421 pH (Temp corrected) Arterial Blood 40.6 pCO2 (Temp correct) Arterial Blood 200.7 H pO2 (Temp corrected) Arterial Blood 25.8 HCO3 Arterial Blood 1.3 Base Excess Arterial Blood 99.3 H Oxygen Saturatio n Santino Test ACCEPTAB Arterial Blood Right Radial Gas Puncture Site Arterial 0 Blood Carboxyhem oglobin Arterial Blood 0.3 Methemoglobin Blood Gas A-a O2 471.7 H Differential Oxyhemoglobin 99.0 Percent Blood Gas 37.0 Temperature Blood Gas 18.0 Respiration Rate Blood Gas Actual 18 Respiration Rate Blood Gas VENT - AC Modality FiO2 100.0 Blood Gas Tidal 500.0 Volume Blood Gas Low 5.0 PEEP Setting Blood Gas [place] Notified Whom Blood Gas 04/08/2019 1:30:1 Notified Time 3 AM Bedside Glucose 180 Segmented 49 Neutrophils % (Manual) Band Neutrophils 39 H % (Manual) Lymphocytes % 9 L (Manual) Monocytes % 3 (Manual) Neutrophils # 6.2 (Manual) Band Neutrophils 4.5 H # Lymphocytes 1.0 (Manual) Monocytes # 0.3 (Manual) Platelet NORMAL Estimate Giant Platelets 2 H Polychromasia 2+ Anisocytosis 1+ Macrocytosis 1+ Ovalocytes 1+ Phosphorus Level 3.0 Magnesium Level 2.3 Test 04/08/19 05:42 Bedside Glucose 198 Medications Medication Current Medications IV Flush (NS 3 ml) 3 ml PER PROTOCOL IV ; Start 03/29/19 at 13:30 Ondansetron HCl (Zofran Inj) 4 mg Q6H PRN IV NAUSEA/VOMITING Last administered on 04/07/19 18:53; Admin Dose 4 MG; Start 03/29/19 at 13:30 Acetaminophen (Tylenol Tab) 650 mg Q6H PRN PO .PAIN 1-3 OR TEMP Last ad ministered on 03/31/19 05:48; Admin Dose 650 MG; Start 03/29/19 at 13:30 Hydralazine HCl (Apresoline) 10 mg Q4H PRN IV sbp >160 Last administered on 04/02/19 15:15; Admin Dose 10 MG; Start 03/29/19 at 14:00 Miscellaneous Information 1 ea NOTE XX ; Start 03/29/19 at 14:30 Glucose (Glutose) 15 gm Q15M PRN PO DECREASED GLUCOSE; Start 03/29/19 at 14:30 Glucose (Glutose) 22.5 gm Q15M PRN PO DECREASED GLUCOSE; Start 03/29/19 at 14:30 Dextrose (D50w Syringe) 25 ml Q15M PRN IV DECREASED GLUCOSE; Start 03/29/19 at 14:30 Dextrose (D50w Syringe) 50 ml Q15M PRN IV DECREASED GLUCOSE; Start 03/29/19 at 14:30 Glucagon (Glucagen) 1 mg Q15M PRN IM DECREASED GLUCOSE; Start 03/29/19 at 14:30 Glucose (Glutose) 15 gm Q15M PRN BUCCAL DECREASED GLUCOSE; Start 03/29/19 at 14:30 Albumin Human 100 ml @ 100 mls/hr WITH DIALYSIS PRN IV SBP <90 DURING DIALYSIS Last administered on 04/03/19 21:18; Admin Dose 100 MLS/HR; Start 03/29/19 at 17:00 Albuterol/ Ipratropium (Duoneb) 3 ml Q2H RESP THERAPY PRN HHN WHEEZING AND RESP DISTRESS Last administered on 04/01/19 21:23; Admin Dose 3 ML; Start 03/29/19 at 18:00 Lorazepam (Ativan) 0.5 mg Q4H PRN IV AGITATION Last administered on 04/02/19 03:55; Admin Dose 0.5 MG; Start 03/29/19 at 18:00 IV Flush (NS 10 ml) 10 ml Q8 PRN IV IV PROTOCOL; Start 03/29/19 at 18:00 Labetalol HCl (Labetalol) 10 mg Q4H PRN IV sbp >160; Start 03/30/19 at 09:00 Haloperidol (Haldol) 5 mg Q6H PRN IM agitation Last administered on 03/31/19 00:10; Admin Dose 5 MG; Start 03/30/19 at 10:00 Heparin Sodium (Porcine) (Heparin (1000 Units/ml)) 3,200 unit AFTER DIALYSIS CATHETER Last administered on 04/08/19 11:16; Admin Dose 3,200 UNIT; Start 03/30/19 at 17:00 Atorvastatin Calcium (Lipitor) 40 mg HS NGT Last administered on 04/06/19 21:48; Admin Dose 40 MG; Start 03/31/19 at 21:00 Baclofen (Lioresal) 10 mg BID GTB Last administered on 04/07/19 08:23; Admin Dose 10 MG; Start 03/31/19 at 21:00 Doxazosin Mesylate (Cardura) 2 mg DAILY NGT Last administered on 04/07/19 08:24; Admin Dose 2 MG; Start 03/31/19 at 14:30 Gabapentin (Neurontin) 100 mg QHS PO Last administered on 04/06/19 21:48; Admin Dose 100 MG; Start 03/31/19 at 21:00 Losartan Potassium (Cozaar) 100 mg DAILY NGT Last administered on 04/07/19 08:23; Admin Dose 100 MG; Start 03/31/19 at 14:30 Sertraline HCl (Zoloft) 25 mg HS NGT Last administered on 04/06/19 21:49; Admin Dose 25 MG; Start 03/31/19 at 21:00 Acetaminophen (Tylenol Liquid) 650 mg Q4H PRN PEG MILD PAIN(1-3)OR ELEVATED TEMP Last administered on 6/23/19at 16:31; Admin Dose 650 MG; Start 03/31/19 at 16:00 Insulin Aspart (Novolog Insulin Pen) NOVOLOG *MILD* ALGORI... Q6 SC Last administered on 04/08/19 05:46; Admin Dose 2 UNIT; Start 04/02/19 at 12:00 Lactobacillus Acidophilus/ Rhamnosus (Culturelle) 1 cap TID GTB Last a dministered on 04/07/19 12:14; Admin Dose 1 CAP; Start 04/02/19 at 13:00 Carvedilol (Coreg) 25 mg BID NGT Last administered on 04/07/19 08:23; Admin Dose 25 MG; Start 04/02/19 at 21:00 Hydralazine HCl (Apresoline) 75 mg TID NGT Last administered on 04/07/19 12:26; Admin Dose 75 MG; Start 04/02/19 at 21:00 Epoetin [place]-epbx (Retacrit (Esrd)) 10,000 unit MoWeFr@1700 SC Last administered on 04/05/19 17:49; Admin Dose 10,000 UNIT; Start 04/03/19 at 19:30 Lansoprazole (Prevacid) 30 mg BID@0600,1800 GTB Last administered on 04/07/19 17:04; Admin Dose 30 MG; Start 04/04/19 at 18:00 Multivit/Ca Carb/ B Cmplx/FA/Prenat (Karena-Geovanni) 1 tab DAILY GTB Last administered on 04/07/19 08:22; Admin Dose 1 TAB; Start 04/04/19 at 11:30 Albuterol (Proventil 0.083% (Neb)) 2.5 mg Q6HWA RESP THERAPY HHN Last administered on 04/07/19 19:21; Admin Dose 2.5 MG; Start 04/04/19 at 14:00 Aspirin (Aspirin) 81 mg DAILY PO Last administered on 04/07/19 08:23; Admin Dose 81 MG; Start 04/05/19 at 09:00 Clopidogrel Bisulfate (plaVIX) 75 mg DAILY GTB Last administered on 04/07/19 08:23; Admin Dose 75 MG; Start 04/07/19 at 09:00 Quetiapine Fumarate (Seroquel) 50 mg BID GTB ; Start 04/07/19 at 09:00 Propofol 100 ml @ 2.097 mls/ hr Q12H PRN IV AGITATION Last administered on 04/08/19at 01:00; Admin Dose 2.097 MLS/HR; Start 04/08/19 at 00:00 Fentanyl 100 ml @ 2.5 mls/hr TITRATE IV Last administered on 04/08/19at 09:51; Admin Dose 2.5 MLS/HR; Start 04/08/19 at 00:00 Midazolam HCl 50 ml @ 1 mls/hr TITRATE PRN IV agitation Last administered on 04/08/19at 10:56; Admin Dose 1 MLS/HR; Start 04/08/19 at 00:00 Norepinephrine 250 ml @ 1.875 mls/ hr TITRATE IV Last administered on 04/08/19at 01:05; Admin Dose 1.875 MLS/HR; Start 04/08/19 at 00:00 Vancomycin HCl (Vanco Iv Per Pharmacy) VANCOMYCIN PER PHARMACY PER PROTOCOL XX ; Start 04/08/19 at 00:30 Piperacillin Sod/ Tazobactam Sod 50 ml @ 100 mls/hr Q8H IVPB Last administered on 04/08/19at 01:21; Admin Dose 100 MLS/HR; Start 04/08/19 at 00:30 Vancomycin HCl 1.5 gm/Sodium Chloride 250 ml @ 83.333 mls/ hr ONCE IVPB Last administered on 04/08/19at 01:12; Admin Dose 83.333 MLS/HR; Start 04/08/19 at 01:00; Stop 04/08/19 at 12:00 Miscellaneous Information (*Rx Drug Level Order Reminder*) VANCO RANDOM ONCE ONCE XX ; Start 04/10/19 at 05:00; Stop 04/10/19 at 05:01 Sodium Chloride 1,000 ml @ 30 mls/hr Q24H IV Last administered on 04/08/19at 03:48; Admin Dose 30 MLS/HR; Start 04/08/19 at 03:30 Levetiracetam 100 ml @ 400 mls/hr Q12 IVPB ; Start 04/08/19 at 09:30 Nicardipine HCl 50 mg/Sodium Chloride 500 ml @ 50 mls/hr TITRATE IV ; Start 04/08/19 at 09:30 Sodium Chloride 1,000 ml @ 40 mls/hr Q24H IV ; Start 04/08/19 at 10:30 GEOVANNI BLANCHARD Apr 08, 2019 11:27
[2019-04-08] MEDS: LEVETIRACETAM 500 MG (PMX) 100 ML IVPB SCH ×2 (11:32→21:19)
--- NOTE | 2019-04-08 11:49 | CONS ---
Assessment/Plan Assessment/Plan Assessment/Plan (Daily) 1. Acute enceophalkoapthy,possibly metabolic encephalopathy 2. acute Uremia due to missed HD - now resolved 3. ESRD on HD - MWF schedule at [facility] 4. H/o CAD s/p CABG before 5. H/o CAD with previous recent stent placement in 09/2018 6. h/o HTN 7. H/o DM II 8. h/o HL 9. 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 H/o BPH 11. Anemia of ESRD -EGD 04/03/2019 Moderate distal esophagitis. Gastrostomy tube in place. Gastritis rule out H. pylori infection. Biopsies obtained. Duodenitis. Colonoscopy 04/03/2019 8 sessile polyp in the cecum. Snared and retrieved. 6 mm sessile polyp ascending colon. Snared and retrieved. 6 mm sessile polyp sigmoid. Snared and retrieved. 20 mm sessile polyp sigmoid. Saline assisted lipectomy plus localization tattoo. Moderate-sized internal hemorrhoids Plan: s/p HD today 2.5 L removed - will continue pt on MWF schedule while being in hospital BP controlled with Losartan 100mg po daily Coreg 25 BID, Nifedipine Xl 30mg po daily for better BP control Epogen 25679 units SQ MWF will follow up Consultation Date/Type/Reason Admit Date/Time Mar 29, 2019 at 13:16 Initial Consult Date 03/29/19 Type of Consult NEPHROLOGY Requesting Provider: LILLIAN ZHANG MD Date/Time of Note DATE: 04/08/19 TIME: 11:49 Exam/Review of Systems Exam Vitals Vital Signs Date Temp Pulse Resp B/P (MAP) Pulse Ox O2 O2 Flow FiO2 Time Delivery Rate 04/08/19 82 18 93 40 11:25 04/08/19 128/74 Mechanical 08:00 (92) Ventilator 04/08/19 99.9 04:00 04/07/19 15.0 23:37 Intake and Output 04/07/19 04/07/19 04/08/19 1515:00 23:00 07:00 IntakeIntake Total 360.1643 ml OutputOutput Total 185 ml BalanceBalance 175.1643 ml Results Result Diagram: 04/08/19 0435 04/08/19 0435 Results 24hrs Laboratory Tests Test 04/07/19 12:12 04/07/19 15:33 04/07/19 16:36 04/07/19 20:14 Bedside Glucose 249 H 242 H 189 188 Test 04/07/19 21:09 04/07/19 23:21 04/07/19 23:22 04/07/19 23:58 Lactic Acid 1.7 Level Blood Gas Blood arterial Specimen Source Arterial Blood 04/07/2019 11:25 Date Drawn :29 PM Arterial Blood 7.390 pH (Temp corrected) Arterial Blood 46.3 H pCO2 (Temp correct) Arterial Blood 86.8 pO2 (Temp corrected) Arterial Blood 27.4 H HCO3 Arterial Blood 2.0 Base Excess Arterial Blood 95.5 Oxygen Saturatio n Santino Test N/A Arterial Blood LB Gas Puncture Site Arterial 0 Blood Carboxyhem oglobin Arterial Blood 0.2 Methemoglobin Blood Gas A-a O2 579.9 H Differential Oxyhemoglobin 95.3 Percent Blood Gas 37.0 Temperature Blood Gas MASK - NRB Modality FiO2 100.0 Blood Gas EMERITA Critical Value Read Back Blood Gas [place] Notified Whom Blood Gas 04/07/2019 11:35 Notified Time :46 PM Bedside Glucose 184 Urine Color YELLOW Urine Clarity SLIGHTLY CLOUDY A Urine pH 8.0 Urine Specific 1.009 [place] Urine Ketones NEGATIVE Urine Nitrite NEGATIVE Urine Bilirubin NEGATIVE Urine NEGATIVE Urobilinogen Urine Leukocyte NEGATIVE Esterase Urine 3 Microscopic RBC Urine 12 H Microscopic WBC Urine Bacteria FEW A Urine Hemoglobin NEGATIVE Urine Glucose 1+ H Urine Total 2+ H Protein Test 04/08/19 00:08 04/08/19 01:00 04/08/19 01:35 04/08/19 04:35 White Blood 9.3 11.6 #H Count Red Blood Count 2.89 L 2.91 L Hemoglobin 8.6 L 8.7 L Hematocrit 27.6 L 27.5 L Mean Corpuscular 95.5 94.5 Volume Mean Corpuscular 29.8 29.9 Hemoglobin Mean Corpuscular 31.2 L 31.6 L Hemoglobin Dimple nt Red Cell 16.4 H 17.1 H Distribution Width Platelet Count 234 274 Mean Platelet 10.3 10.7 H Volume Immature 0.300 0.200 Granulocytes % Neutrophils % 89.7 H Lymphocytes % 5.9 L Monocytes % 3.4 Eosinophils % 0.4 Basophils % 0.3 Nucleated Red 0.0 0.0 Blood Cells % Immature 0.030 0.020 Granulocytes # Neutrophils # 8.3 H Lymphocytes # 0.6 L Monocytes # 0.3 Eosinophils # 0.0 Basophils # 0.0 Nucleated Red 0.0 Blood Cells # Sodium Level 141 140 Potassium Level 4.3 4.4 Chloride Level 104 101 Carbon Dioxide 26 29 Level Anion Gap 11 10 Blood Urea 31 H 38 H Nitrogen Creatinine 6.34 H 7.26 H Est Glomerular 9 L Filtrat Rate mL/min Glucose Level 159 186 Calcium Level 8.2 L 9.1 Total Bilirubin 0.1 L Direct Bilirubin 0.00 Indirect 0.1 Bilirubin Aspartate Amino 21 Transf (AST/SGOT ) Alanine 9 L Aminotransferase (ALT/SGPT) Alkaline 72 Phosphatase Total Protein 6.1 Albumin 2.9 L 2.8 L Globulin 3.20 Albumin/Globulin 0.90 Ratio Blood Gas Blood arterial Specimen Source Arterial Blood 04/08/2019 1:20:3 Date Drawn 1 AM Arterial Blood 7.421 pH (Temp corrected) Arterial Blood 40.6 pCO2 (Temp correct) Arterial Blood 200.7 H pO2 (Temp corrected) Arterial Blood 25.8 HCO3 Arterial Blood 1.3 Base Excess Arterial Blood 99.3 H Oxygen Saturatio n Santino Test ACCEPTAB Arterial Blood Right Radial Gas Puncture Site Arterial 0 Blood Carboxyhem oglobin Arterial Blood 0.3 Methemoglobin Blood Gas A-a O2 471.7 H Differential Oxyhemoglobin 99.0 Percent Blood Gas 37.0 Temperature Blood Gas 18.0 Respiration Rate Blood Gas Actual 18 Respiration Rate Blood Gas VENT - AC Modality FiO2 100.0 Blood Gas Tidal 500.0 Volume Blood Gas Low 5.0 PEEP Setting Blood Gas [place] Notified Whom Blood Gas 04/08/2019 1:30:1 Notified Time 3 AM Bedside Glucose 180 Segmented 49 Neutrophils % (Manual) Band Neutrophils 39 H % (Manual) Lymphocytes % 9 L (Manual) Monocytes % 3 (Manual) Neutrophils # 6.2 (Manual) Band Neutrophils 4.5 H # Lymphocytes 1.0 (Manual) Monocytes # 0.3 (Manual) Platelet NORMAL Estimate Giant Platelets 2 H Polychromasia 2+ Anisocytosis 1+ Macrocytosis 1+ Ovalocytes 1+ Phosphorus Level 3.0 Magnesium Level 2.3 Test 04/08/19 05:42 Bedside Glucose 198 Medications Medication Current Medications IV Flush (NS 3 ml) 3 ml PER PROTOCOL IV ; Start 03/29/19 at 13:30 Ondansetron HCl (Zofran Inj) 4 mg Q6H PRN IV NAUSEA/VOMITING Last administered on 04/07/19 18:53; Admin Dose 4 MG; Start 03/29/19 at 13:30 Acetaminophen (Tylenol Tab) 650 mg Q6H PRN PO .PAIN 1-3 OR TEMP Last administered on 03/31/19 05:48; Admin Dose 650 MG; Start 03/29/19 at 13:30 Hydralazine HCl (Apresoline) 10 mg Q4H PRN IV sbp >160 Last administered on 04/02/19 15:15; Admin Dose 10 MG; Start 03/29/19 at 14:00 Miscellaneous Information 1 ea NOTE XX ; Start 03/29/19 at 14:30 Glucose (Glutose) 15 gm Q15M PRN PO DECREASED GLUCOSE; Start 03/29/19 at 14:30 Glucose (Glutose) 22.5 gm Q15M PRN PO DECREASED GLUCOSE; Start 03/29/19 at 14:30 Dextrose (D50w Syringe) 25 ml Q15M PRN IV DECREASED GLUCOSE; Start 03/29/19 at 14:30 Dextrose (D50w Syringe) 50 ml Q15M PRN IV DECREASED GLUCOSE; Start 03/29/19 at 14:30 Glucagon (Glucagen) 1 mg Q15M PRN IM DECREASED GLUCOSE; Start 03/29/19 at 14:30 Glucose (Glutose) 15 gm Q15M PRN BUCCAL DECREASED GLUCOSE; Start 03/29/19 at 14:30 Albumin Human 100 ml @ 100 mls/hr WITH DIALYSIS PRN IV SBP <90 DURING DIALYSIS Last administered on 04/03/19at 21:18; Admin Dose 100 MLS/HR; Start 03/29/19 at 17:00 Albuterol/ Ipratropium (Duoneb) 3 ml Q2H RESP THERAPY PRN HHN WHEEZING AND RESP DISTRESS Last administered on 04/01/19 21:23; Admin Dose 3 ML; Start 03/29/19 at 18:00 Lorazepam (Ativan) 0.5 mg Q4H PRN IV AGITATION Last administered on 04/02/19 03:55; Admin Dose 0.5 MG; Start 03/29/19 at 18:00 IV Flush (NS 10 ml) 10 ml Q8 PRN IV IV PROTOCOL; Start 03/29/19 at 18:00 Labetalol HCl (Labetalol) 10 mg Q4H PRN IV sbp >160; Start 03/30/19 at 09:00 Haloperidol (Haldol) 5 mg Q6H PRN IM agitation Last administered on 03/31/19 00:10; Admin Dose 5 MG; Start 03/30/19 at 10:00 Heparin Sodium (Porcine) (Heparin (1000 Units/ml)) 3,200 unit AFTER DIALYSIS CATHETER Last administered on 04/08/19 11:16; Admin Dose 3,200 UNIT; Start 03/30/19 at 17:00 Atorvastatin Calcium (Lipitor) 40 mg HS NGT Last administered on 04/06/19 21:48; Admin Dose 40 MG; Start 03/31/19 at 21:00 Baclofen (Lioresal) 10 mg BID GTB Last administered on 04/07/19 08:23; Admin Dose 10 MG; Start 03/31/19 at 21:00 Doxazosin Mesylate (Cardura) 2 mg DAILY NGT Last administered on 04/07/19 08:24; Admin Dose 2 MG; Start 03/31/19 at 14:30 Gabapentin (Neurontin) 100 mg QHS PO Last administered on 04/06/19 21:48; Admin Dose 100 MG; Start 03/31/19 at 21:00 Losartan Potassium (Cozaar) 100 mg DAILY NGT Last administered on 04/07/19 08:23; Admin Dose 100 MG; Start 03/31/19 at 14:30 Sertraline HCl (Zoloft) 25 mg HS NGT Last administered on 04/06/19 21:49; Admin Dose 25 MG; Start 03/31/19 at 21:00 Acetaminophen (Tylenol Liquid) 650 mg Q4H PRN PEG MILD PAIN(1-3)OR ELEVATED TEMP Last administered on 03/31/19 16:31; Admin Dose 650 MG; Start 03/31/19 at 16:00 Insulin Aspart (Novolog Insulin Pen) NOVOLOG *MILD* ALGORI... Q6 SC Last administered on 04/08/19 05:46; Admin Dose 2 UNIT; Start 04/02/19 at 12:00 Lactobacillus Acidophilus/ Rhamnosus (Culturelle) 1 cap TID GTB Last administered on 04/07/19 12:14; Admin Dose 1 CAP; Start 04/02/19 at 13:00 Carvedilol (Coreg) 25 mg BID NGT Last administered on 04/07/19 08:23; Admin Dose 25 MG; Start 04/02/19 at 21:00 Hydralazine HCl (Apresoline) 75 mg TID NGT Last administered on 04/07/19 12:26; Admin Dose 75 MG; Start 04/02/19 at 21:00 Epoetin [place]-epbx (Retacrit (Esrd)) 10,000 unit MoWeFr@1700 SC Last administered on 04/05/19 17:49; Admin Dose 10,000 UNIT; Start 04/03/19 at 19:30 Lansoprazole (Prevacid) 30 mg BID@0600,1800 GTB Last administered on 04/07/19 17:04; Admin Dose 30 MG; Start 04/04/19 at 18:00 Multivit/Ca Carb/ B Cmplx/FA/Prenat (Karena-Geovanni) 1 tab DAILY GTB Last administer ed on 04/07/19 08:22; Admin Dose 1 TAB; Start 04/04/19 at 11:30 Albuterol (Proventil 0.083% (Neb)) 2.5 mg Q6HWA RESP THERAPY HHN Last administered on 04/07/19 19:21; Admin Dose 2.5 MG; Start 04/04/19 at 14:00 Aspirin (Aspirin) 81 mg DAILY PO Last administered on 04/07/19 08:23; Admin Dose 81 MG; Start 04/05/19 at 09:00 Clopidogrel Bisulfate (plaVIX) 75 mg DAILY GTB Last administered on 04/07/19 08:23; Admin Dose 75 MG; Start 04/07/19 at 09:00 Quetiapine Fumarate (Seroquel) 50 mg BID GTB ; Start 04/07/19 at 09:00 Propofol 100 ml @ 2.097 mls/ hr Q12H PRN IV AGITATION Last administered on 04/08/19 01:00; Admin Dose 2.097 MLS/HR; Start 04/08/19 at 00:00 Fentanyl 100 ml @ 2.5 mls/hr TITRATE IV Last administered on 7/1/19at 09:51; Admin Dose 2.5 MLS/HR; Start 04/08/19 at 00:00 Midazolam HCl 50 ml @ 1 mls/hr TITRATE PRN IV agitation Last administered on 04/08/19at 10:56; Admin Dose 1 MLS/HR; Start 04/08/19 at 00:00 Norepinephrine 250 ml @ 1.875 mls/ hr TITRATE IV Last administered on 04/08/19at 01:05; Admin Dose 1.875 MLS/HR; Start 04/08/19 at 00:00 Vancomycin HCl (Vanco Iv Per Pharmacy) VANCOMYCIN PER PHARMACY PER PROTOCOL XX ; Start 04/08/19 at 00:30 Piperacillin Sod/ Tazobactam Sod 50 ml @ 100 mls/hr Q8H IVPB Last administered on 04/08/19at 01:21; Admin Dose 100 MLS/HR; Start 04/08/19 at 00:30 Vancomycin HCl 1.5 gm/Sodium Chloride 250 ml @ 83.333 mls/ hr ONCE IVPB Last administered on 04/08/19at 01:12; Admin Dose 83.333 MLS/HR; Start 04/08/19 at 01:00; Stop 04/08/19 at 12:00 Miscellaneous Information (*Rx Drug Level Order Reminder*) VANCO RANDOM ONCE ONCE XX ; Start 04/10/19 at 05:00; Stop 04/10/19 at 05:01 Sodium Chloride 1,000 ml @ 30 mls/hr Q24H IV Last administered on 04/08/19at 03:48; Admin Dose 30 MLS/HR; Start 04/08/19 at 03:30 Levetiracetam 100 ml @ 400 mls/hr Q12 IVPB ; Start 04/08/19 at 09:30 Nicardipine HCl 50 mg/Sodium Chloride 500 ml @ 50 mls/hr TITRATE IV ; Start 04/08/19 at 09:30 Sodium Chloride 1,000 ml @ 40 mls/hr Q24H IV ; Start 04/08/19 at 10:30 BETZAIDA YAÑEZ MD Apr 08, 2019 11:49
--- NOTE | 2019-04-08 13:03 | CONS ---
DATE OF ADMISSION: 03/29/2019 DATE OF CONSULTATION: 04/08/2019 TYPE OF CONSULTATION: Infectious disease. REASON FOR CONSULTATION: Antibiotic management. HISTORY OF PRESENT ILLNESS: 1. Catarina Huynh is a 58-year-old [place] male who came in with altered level of con sciousness, unable to complete his dialysis. The patient is a 58-year-old male with end-stage renal disease on hemodialysis. 2. History of recent stroke. When he came to dialysis. He had significant agitation. They were un able to complete his dialysis. He was then brought by ambulance to the Emergency Room, he had receiv ed [facility], but this was not effective for his agitation. He has no obvious shortness of breath. PAST MEDICAL HISTORY: Coronary artery disease, status post coronary bypass graft 3 years ago. He mcneal d a stent placement in September of last year. Has a history of CVA as noted, congestive heart failur e, depression, asthma, end-stage renal disease on hemodialysis, seizures, benign prostatic hypertroph y, and the aforementioned problems. FAMILY HISTORY: Noncontributory. SOCIAL HISTORY: Does not smoke, drink or abuse drugs. ALLERGIES: None to penicillin, sulfa or foods. MEDICATIONS: Per chart. REVIEW OF SYSTEMS: As in HPI. On admission, he is a chronically ill male, appearing to be somewhat agitated. ANCILLARY LABORATORY DATA: White count 9.1, H and H 6.4/20.8, platelet count 226,000. BUN and creat inine 48/7.16, glucose of 88 with 82% neutrophils, 7% lymphocytes. BUN and creatinine was 48/7.16 as noted. HOSPITAL COURSE: The patient was felt to have agitation, anemia, renal failure. He was seen by the hospitalist. The patient was given Zyprexa which lowered his blood pressure and mad him fall asleep. [facility]. He has acute encephalopathy. CT scan is negat kaylin for acute issues. Patient had gentle IV fluids since he is on dialysis, to maintain his blood pr essure. He has severe anemia, end-stage renal disease, history of CVA with residual left-sided defic it and benign prostatic hypertrophy. HOSPITAL COURSE: The patient's white count is 11.6. Urine creatinine 38/7.26. The patient decompen sated last night. Proper response was called. He had significant shortness of breath and was intuba shannon. NEUROLOGIC: He is lying in bed, sedated and intubated. VITAL SIGNS: Stable. He is afebrile. SKIN: Without generalized rash. HEENT: Within normal limits. NECK: Supple. LYMPH NODES: None palpable. CHEST: Decreased breath sounds at the bases. HEART: Without murmur or gallop. ABDOMEN: Soft, nontender, without organosplenomegaly or masses. EXTREMITIES: Without cyanosis, clubbing, or edema. RECTAL AND GENITAL: Deferred. NEUROLOGIC: Evaluation is difficult. The patient is sedated at this point, but he has left-sided we akness secondary to previous stroke. A CT scan of the abdomen shows possible pneumonia. He was plac ed on broad spectrum antibiotics, septic shock secondary to likely pneumonia. CT showing distended b ladder wall for cystitis. Urine is not necessarily revealing for infection, likely aspiration pneumo chao would explain mild fever yesterday as well as his symptoms, acute on chronic encephalopathy, hypo tensive emergency resolved at this point. Dysphagia, PEG in place and on . Nurses have concern s over PEG tube placement. GI to evaluate. He has end-stage renal disease on hemodialysis. Continu e current therapy. He is on Keppra for epilepsy. History of cerebrovascular accident with residual left-sided deficit, more recent CVA 1 month ago. Currently, he is on vancomycin and Zosyn. He is on Nicardipine and Propofol, Fentanyl, Norepinephrine and in general is doing poorly. His blood cultur es are negative. Urine was negative on the 30, most likely dealing with aspiration pneumonia with increased congestive changes, left basilar opacities compatible with edema or pneumonia. I will dictate my findings to the hospitalists and Dr. Roger Chua. Dictated By: RAMONE NUNEZ MD, JD/JORDAN Conf#: [id number] DID#: [id number] CC: STEWART WINTER MD;*EndCC*
--- NOTE | 2019-04-08 15:07 | CONS ---
Consult Date/Type/Reason Admit Date/Time Mar 29, 2019 at 13:16 Initial Consult Date 04/07/19 Type of Consultation: cv Requesting Provider: LILLIAN ZHANG MD Date/Time of Note DATE: 04/08/19 TIME: 15:04 Subjective Interventional cardiology follow-up progress note Subjective: Discussed with the staff discussed with . Telemetry was reviewed. Patient had increasing respiratory failure required to be intubated and currently has been hypotensive and Levophed drip in the ICU. Patient nonverbal. objective: General: This post intubation on the ventilator HEENT: NC/AT. pupils are equal. round. NECK:. no stridor. CV: RRR. systolic murmur; no gallop or rubs. PULM: + rhonchi. GI: SOFT, NT, ND, no rebound or guarding Extremity: trace B/L LE edema. no clubbing. neuro: Sedated not responsive Psych: calm the moment rectal: deferred : normal EKG done March 29, 2019 shows normal sinus rhythm nonspecific ST abnormalities Objective Vitals Vital Signs Date Temp Pulse Resp B/P (MAP) Pulse Ox O2 O2 Flow FiO2 Time Delivery Rate 04/08/19 76 18 97 40 14:54 04/08/19 124/62 13:45 (82) 04/08/19 Mechanical 13:00 Ventilator 04/08/19 98.9 12:00 04/07/19 15.0 23:37 Intake and Output 04/07/19 04/07/19 04/08/19 1515:00 23:00 07:00 IntakeIntake Total 360.1643 ml OutputOutput Total 185 ml BalanceBalance 175.1643 ml Results/Medications Result Diagram: 04/08/19 0435 04/08/19 0435 Results 24 hrs Laboratory Tests Test 04/07/19 15:33 04/07/19 16:36 04/07/19 20:14 04/07/19 21:09 Bedside Glucose 242 H 189 188 Lactic Acid 1.7 Level Test 04/07/19 23:21 04/07/19 23:22 04/07/19 23:58 04/08/19 00:08 Blood Gas Blood arterial Specimen Source Arterial Blood 04/07/2019 11:25 Date Drawn :29 PM Arterial Blood 7.390 pH (Temp corrected) Arterial Blood 46.3 H pCO2 (Temp correct) Arterial Blood 86.8 pO2 (Temp corrected) Arterial Blood 27.4 H HCO3 Arterial Blood 2.0 Base Excess Arterial Blood 95.5 Oxygen Saturatio n Santino Test N/A Arterial Blood LB Gas Puncture Site Arterial 0 Blood Carboxyhem oglobin Arterial Blood 0.2 Methemoglobin Blood Gas A-a O2 579.9 H Differential Oxyhemoglobin 95.3 Percent Blood Gas 37.0 Temperature Blood Gas MASK - NRB Modality FiO2 100.0 Blood Gas EMERITA Critical Value Read Back Blood Gas YASMINE Notified Whom Blood Gas 04/07/2019 11:35 Notified Time :46 PM Bedside Glucose 184 Urine Color YELLOW Urine Clarity SLIGHTLY CLOUDY A Urine pH 8.0 Urine Specific 1.009 [place] Urine Ketones NEGATIVE Urine Nitrite NEGATIVE Urine Bilirubin NEGATIVE Urine NEGATIVE Urobilinogen Urine Leukocyte NEGATIVE Esterase Urine 3 Microscopic RBC Urine 12 H Microscopic WBC Urine Bacteria FEW A Urine Hemoglobin NEGATIVE Urine Glucose 1+ H Urine Total 2+ H Protein White Blood 9.3 Count Red Blood Count 2.89 L Hemoglobin 8.6 L Hematocrit 27.6 L Mean Corpuscular 95.5 Volume Mean Corpuscular 29.8 Hemoglobin Mean Corpuscular 31.2 L Hemoglobin Dimple nt Red Cell 16.4 H Distribution Width Platelet Count 234 Mean Platelet 10.3 Volume Immature 0.300 Granulocytes % Neutrophils % 89.7 H Lymphocytes % 5.9 L Monocytes % 3.4 Eosinophils % 0.4 Basophils % 0.3 Nucleated Red 0.0 Blood Cells % Immature 0.030 Granulocytes # Neutrophils # 8.3 H Lymphocytes # 0.6 L Monocytes # 0.3 Eosinophils # 0.0 Basophils # 0.0 Nucleated Red 0.0 Blood Cells # Sodium Level 141 Potassium Level 4.3 Chloride Level 104 Carbon Dioxide 26 Level Anion Gap 11 Blood Urea 31 H Nitrogen Creatinine 6.34 H Est Glomerular 9 L Filtrat Rate mL/min Glucose Level 159 Calcium Level 8.2 L Total Bilirubin 0.1 L Direct Bilirubin 0.00 Indirect 0.1 Bilirubin Aspartate Amino 21 Transf (AST/SGOT ) Alanine 9 L Aminotransferase (ALT/SGPT) Alkaline 72 Phosphatase Total Protein 6.1 Albumin 2.9 L Globulin 3.20 Albumin/Globulin 0.90 Ratio Test 04/08/19 01:00 04/08/19 01:35 04/08/19 04:35 04/08/19 05:42 Blood Gas Blood arterial Specimen Source Arterial Blood 04/08/2019 1:20:3 Date Drawn 1 AM Arterial Blood 7.421 pH (Temp corrected) Arterial Blood 40.6 pCO2 (Temp correct) Arterial Blood 200.7 H pO2 (Temp corrected) Arterial Blood 25.8 HCO3 Arterial Blood 1.3 Base Excess Arterial Blood 99.3 H Oxygen Saturatio n Santino Test ACCEPTAB Arterial Blood Right Radial Gas Puncture Site Arterial 0 Blood Carboxyhem oglobin Arterial Blood 0.3 Methemoglobin Blood Gas A-a O2 471.7 H Differential Oxyhemoglobin 99.0 Percent Blood Gas 37.0 Temperature Blood Gas 18.0 Respiration Rate Blood Gas Actual 18 Respiration Rate Blood Gas VENT - AC Modality FiO2 100.0 Blood Gas Tidal 500.0 Volume Blood Gas Low 5.0 PEEP Setting Blood Gas [place] Notified Whom Blood Gas 04/08/2019 1:30:1 Notified Time 3 AM Bedside Glucose 180 198 White Blood 11.6 #H Count Red Blood Count 2.91 L Hemoglobin 8.7 L Hematocrit 27.5 L Mean Corpuscular 94.5 Volume Mean Corpuscular 29.9 Hemoglobin Mean Corpuscular 31.6 L Hemoglobin Dimple nt Red Cell 17.1 H Distribution Width Platelet Count 274 Mean Platelet 10.7 H Volume Immature 0.200 Granulocytes % Neutrophils % Segmented 49 Neutrophils % (Manual) Band Neutrophils 39 H % (Manual) Lymphocytes % Lymphocytes % 9 L (Manual) Monocytes % Monocytes % 3 (Manual) Eosinophils % Basophils % Nucleated Red 0.0 Blood Cells % Immature 0.020 Granulocytes # Neutrophils # Neutrophils # 6.2 (Manual) Band Neutrophils 4.5 H # Lymphocytes 1.0 (Manual) Lymphocytes # Monocytes # Monocytes # 0.3 (Manual) Eosinophils # Basophils # Nucleated Red Blood Cells # Platelet NORMAL Estimate Giant Platelets 2 H Polychromasia 2+ Anisocytosis 1+ Macrocytosis 1+ Ovalocytes 1+ Sodium Level 140 Potassium Level 4.4 Chloride Level 101 Carbon Dioxide 29 Level Anion Gap 10 Blood Urea 38 H Nitrogen Creatinine 7.26 H Glucose Level 186 Calcium Level 9.1 Phosphorus Level 3.0 Magnesium Level 2.3 Albumin 2.8 L Test 04/08/19 12:15 Bedside Glucose 151 Home Meds Reported Medications Bisacodyl (Dulcolax) 10 Mg Supp.rect, 10 MG RC DAILY PRN for CONSTIPATION, SUPP.RECT 03/29/19 Sodium Phosphate,Collin-Dibasic (Enema Ready To Use) 133 Ml Enema, 133 ML RC EVERY 2 DAYS PRN for CONSTIPATION, ENEMA 03/29/19 Acetaminophen* (Acetaminophen*) 650 Mg Tablet, 650 MG GTB Q4 PRN for MILD PAIN LEVEL 1-3, #30 TAB AND FEVER 03/29/19 Acetaminophen* (Acetaminophen*) 500 MG Extra Strength Tablet, 1000 MG GTB Q4H PRN for MODERATE PAIN LEVEL 4-6, TAB 03/29/19 Acetaminophen* (Acetaminophen*) 500 MG Extra Strength Tablet, 1000 MG GTB BID PRN for GENERAL BODY PAIN, TAB 03/29/19 Amino Acids/Protein Hydrolys (Pro-Stat Awc Liquid) 30 Ml Liquid, 30 ML GTB DAILY SUGAR FREE 03/29/19 Multivitamin* (Daily Value*) 1 Each Tablet, 1 TAB GTB DAILY, TAB 03/29/19 Ascorbic Acid* (Vitamin C*) 500 Mg Capsule.sa, 500 MG GTB DAILY, CAP 03/29/19 Ferrous Sulfate (Ferrous Sulfate) 300 Mg/5 Ml Liquid, 325 MG GTB DAILY 03/29/19 Cran/Vitc/Mannose/Inulin/Brom (Uti-Stat Liquid) 3,875 Mg/30 Ml Liquid, 3875 MG GTB DAILY 03/29/19 Cranberry Extract (Cranberry) 425 Mg Capsule, 425 MG GTB DAILY, CAP 03/29/19 Insulin Glulisine (Apidra Solostar) 100 Unit/1 Ml Insuln.pen, 4 UNIT SQ TIDM A, #1 TUB 03/29/19 Insulin Glargine,Hum.rec.anlog (Darylaglmae Graff U-100) 100 Unit/1 Ml Insuln.pen, 25 UNIT SC QHS, EA 03/29/19 Insulin Regular, Human (Humulin R) 100 Unit/1 Ml Vial, 0 IJ AC MEALS AND BEDTIME, VIAL 0-150 = 0 UNIT 151-200 = 1 UNIT 201-250 = 2 UNITS 251-300 = 3 UNITS 301-350 = 4 UNITS 351-400 = 5 UNITS OVER 400 GIVE 6 UNITS UNDER 70 OR OVER 400 NOTIFY 03/29/19 Sertraline Hcl* (Sertraline Hcl*) 25 Mg Tablet, 25 MG GTB DAILY, #30 TAB 03/29/19 Lorazepam* (Ativan*) 0.5 Mg Tablet, 0.5 MG GTB DAILY PRN for ANXIETY, #30 TAB 03/29/19 Quetiapine Fumarate* (Seroquel*) 25 Mg Tablet, 25 MG GTB HS, #30 TAB 03/29/19 Lorazepam* (Lorazepam*) 0.5 Mg Tablet, 0.5 MG GTB DAILY PRN for ANXIETY, TAB 03/29/19 Clonidine Hcl* (Clonidine Hcl*) 0.1 Mg Tab, 0.1 MG GTB DAILY PRN for ELEVATED BLOOD PRESSURE, TAB SBP >160 03/29/19 Azelastine Hcl* (Azelastine Hcl*) 137 Mcg/0.137 Ml [place].pump, 2 SPRAYS NASAL BID, #1 EA TO EACH NOSTRIL 03/29/19 Carvedilol* (Carvedilol*) 12.5 Mg Tablet, 12.5 MG GTB BID, #60 TAB 03/29/19 Diltiazem Hcl* (Cardizem CD*) 240 Mg Cap.sr.24h, 240 MG GTB DAILY, #30 CAP 03/29/19 Ergocalciferol (Vitamin D2) (VITAMIN D2) 50,000 Unit Capsule, 07311 UNIT GTB EVERY MONDAY, CAP 03/29/19 Hydralazine Hcl* (Hydralazine Hcl*) 50 Mg Tab, 50 MG GTB TID PRN for ELEVATED BLOOD PRESSURE, #60 TAB 03/29/19 Losartan Potassium* (Losartan Potassium*) 100 Mg Tablet, 100 MG GTB DAILY, TAB 03/29/19 Metoprolol Succinate* (Toprol XL*) 25 Mg Tab.sr.24h, 25 MG GTB DAILY, #30 TAB 03/29/19 Linagliptin (TRADJENTA) 5 Mg Tablet, 5 MG GTB DAILY, TAB 03/29/19 Albuterol Sulfate* (Proair HFA*) 8.5 Gm Hfa.aer.ad, 2 PUFF INH Q4H PRN for WHEEZING AND SOB, #1 INHALER 03/29/19 Ranitidine Hcl* (Ranitidine Hcl*) 300 Mg Tablet, 300 MG GTB HS, #30 TAB 03/29/19 Levetiracetam* (Keppra*) 500 Mg Tablet, 500 MG GTB BID, TAB 03/29/19 Gabapentin* (Gabapentin*) 100 Mg Capsule, 100 MG GTB QHS, #90 CAP 03/29/19 Doxazosin Mesylate* (Doxazosin Mesylate*) 2 Mg Tablet, 2 MG GTB HS, TAB 03/29/19 Docusate Sodium* (Dok*) 100 Mg Tablet, 100 MG GTB BID, #60 CAP 03/29/19 Cyanocobalamin (Vitamin B-12) (Cyanocobalamin Injection) 1,000 Mcg/1 Ml Vial, 1000 MCG IJ EVERY MONDAY, VIAL 03/29/19 Clopidogrel Bisulfate (Clopidogrel) 75 Mg Tablet, 75 MG GTB DAILY, #30 TAB 03/29/19 Calcium Carbonate ([place]-500) 500 Mg Tablet, 500 MG GTB DAILY, TAB 03/29/19 Baclofen* (Baclofen*) 10 Mg Tablet, 10 MG GTB BID, TAB 03/29/19 Atorvastatin* (Atorvastatin*) 40 Mg Tablet, 40 MG GTB QHS, #30 TAB 03/29/19 Aspirin (Low Dose Aspirin) 81 Mg Tablet.dr, 81 MG GTB DAILY, #30 TAB 03/29/19 Medications Current Medications IV Flush (NS 3 ml) 3 ml PER PROTOCOL IV ; Start 03/29/19 at 13:30 Ondansetron HCl (Zofran Inj) 4 mg Q6H PRN IV NAUSEA/VOMITING Last administered on 04/07/19at 18:53; Admin Dose 4 MG; Start 03/29/19 at 13:30 Acetaminophen (Tylenol Tab) 650 mg Q6H PRN PO .PAIN 1-3 OR TEMP Last administer ed on 03/31/19at 05:48; Admin Dose 650 MG; Start 03/29/19 at 13:30 Hydralazine HCl (Apresoline) 10 mg Q4H PRN IV sbp >160 Last administered on 04/02/19at 15:15; Admin Dose 10 MG; Start 03/29/19 at 14:00 Miscellaneous Information 1 ea NOTE XX ; Start 03/29/19 at 14:30 Glucose (Glutose) 15 gm Q15M PRN PO DECREASED GLUCOSE; Start 03/29/19 at 14:30 Glucose (Glutose) 22.5 gm Q15M PRN PO DECREASED GLUCOSE; Start 03/29/19 at 14:30 Dextrose (D50w Syringe) 25 ml Q15M PRN IV DECREASED GLUCOSE; Start 03/29/19 at 14:30 Dextrose (D50w Syringe) 50 ml Q15M PRN IV DECREASED GLUCOSE; Start 03/29/19 at 14:30 Glucagon (Glucagen) 1 mg Q15M PRN IM DECREASED GLUCOSE; Start 03/29/19 at 14:30 Glucose (Glutose) 15 gm Q15M PRN BUCCAL DECREASED GLUCOSE; Start 03/29/19 at 14:30 Albumin Human 100 ml @ 100 mls/hr WITH DIALYSIS PRN IV SBP <90 DURING DIALYSIS Last administered on 04/03/19 21:18; Admin Dose 100 MLS/HR; Start 03/29/19 at 17:00 Albuterol/ Ipratropium (Duoneb) 3 ml Q2H RESP THERAPY PRN HHN WHEEZING AND RESP DISTRESS Last administered on 04/01/19 21:23; Admin Dose 3 ML; Start 03/29/19 at 18:00 Lorazepam (Ativan) 0.5 mg Q4H PRN IV AGITATION Last administered on 04/02/19at 03:55; Admin Dose 0.5 MG; Start 03/29/19 at 18:00 IV Flush (NS 10 ml) 10 ml Q8 PRN IV IV PROTOCOL; Start 03/29/19 at 18:00 Labetalol HCl (Labetalol) 10 mg Q4H PRN IV sbp >160; Start 03/30/19 at 09:00 Haloperidol (Haldol) 5 mg Q6H PRN IM agitation Last administered on 03/31/19at 00:10; Admin Dose 5 MG; Start 03/30/19 at 10:00 Heparin Sodium (Porcine) (Heparin (1000 Units/ml)) 3,200 unit AFTER DIALYSIS CATHETER Last administered on 04/08/19 11:16; Admin Dose 3,200 UNIT; Start 03/30/19 at 17:00 Atorvastatin Calcium (Lipitor) 40 mg HS NGT Last administered on 04/06/19 21:48; Admin Dose 40 MG; Start 03/31/19 at 21:00 Baclofen (Lioresal) 10 mg BID GTB Last administered on 04/07/19 08:23; Admin Dose 10 MG; Start 03/31/19 at 21:00 Doxazosin Mesylate (Cardura) 2 mg DAILY NGT Last administered on 04/07/19 08: 24; Admin Dose 2 MG; Start 03/31/19 at 14:30 Gabapentin (Neurontin) 100 mg QHS PO Last administered on 04/06/19 21:48; Admin Dose 100 MG; Start 03/31/19 at 21:00 Losartan Potassium (Cozaar) 100 mg DAILY NGT Last administered on 04/07/19 08:23; Admin Dose 100 MG; Start 03/31/19 at 14:30 Sertraline HCl (Zoloft) 25 mg HS NGT Last administered on 04/06/19 21:49; Admin Dose 25 MG; Start 03/31/19 at 21:00 Acetaminophen (Tylenol Liquid) 650 mg Q4H PRN PEG MILD PAIN(1-3)OR ELEVATED TEMP Last administered on 03/31/19 16:31; Admin Dose 650 MG; Start 03/31/19 at 16:00 Insulin Aspart (Novolog Insulin Pen) NOVOLOG *MILD* ALGORI... Q6 SC Last administered on 04/08/19 12:17; Admin Dose 1 UNIT; Start 04/02/19 at 12:00 Lactobacillus Acidophilus/ Rhamnosus (Culturelle) 1 cap TID GTB Last administe red on 04/07/19 12:14; Admin Dose 1 CAP; Start 04/02/19 at 13:00 Carvedilol (Coreg) 25 mg BID NGT Last administered on 04/07/19 08:23; Admin Dose 25 MG; Start 04/02/19 at 21:00 Hydralazine HCl (Apresoline) 75 mg TID NGT Last administered on 04/07/19 12:26; Admin Dose 75 MG; Start 04/02/19 at 21:00 Epoetin [place]-epbx (Retacrit (Esrd)) 10,000 unit MoWeFr@1700 SC Last administered on 04/05/19 17:49; Admin Dose 10,000 UNIT; Start 04/03/19 at 19:30 Lansoprazole (Prevacid) 30 mg BID@0600,1800 GTB Last administered on 04/07/19 17:04; Admin Dose 30 MG; Start 04/04/19 at 18:00 Multivit/Ca Carb/ B Cmplx/FA/Prenat (Karena-Geovanni) 1 tab DAILY GTB Last administered on 04/07/19 08:22; Admin Dose 1 TAB; Start 04/04/19 at 11:30 Albuterol (Proventil 0.083% (Neb)) 2.5 mg Q6HWA RESP THERAPY HHN Last administered on 04/07/19 19:21; Admin Dose 2.5 MG; Start 04/04/19 at 14:00 Aspirin (Aspirin) 81 mg DAILY PO Last administered on 04/07/19 08:23; Admin Dose 81 MG; Start 04/05/19 at 09:00 Clopidogrel Bisulfate (plaVIX) 75 mg DAILY GTB Last administered on 04/07/19 08:23; Admin Dose 75 MG; Start 04/07/19 at 09:00 Quetiapine Fumarate (Seroquel) 50 mg BID GTB ; Start 04/07/19 at 09:00 Propofol 100 ml @ 2.097 mls/ hr Q12H PRN IV AGITATION Last administered on 04/08/19at 11:39; Admin Dose 6.291 MLS/HR; Start 04/08/19 at 00:00 Fentanyl 100 ml @ 2.5 mls/hr TITRATE IV Last administered on 04/08/19at 09:51; Admin Dose 2.5 MLS/HR; Start 04/08/19 at 00:00 Midazolam HCl 50 ml @ 1 mls/hr TITRATE PRN IV agitation Last administered on 04/08/19at 10:56; Admin Dose 1 MLS/HR; Start 04/08/19 at 00:00 Norepinephrine 250 ml @ 1.875 mls/ hr TITRATE IV Last administered on 04/08/19at 01:05; Admin Dose 1.875 MLS/HR; Start 04/08/19 at 00:00 Vancomycin HCl (Vanco Iv Per Pharmacy) VANCOMYCIN PER PHARMACY PER PROTOCOL XX ; Start 04/08/19 at 00:30 Miscellaneous Information (*Rx Drug Level Order Reminder*) VANCO RANDOM ONCE ONCE XX ; Start 04/10/19 at 05:00; Stop 04/10/19 at 05:01 Sodium Chloride 1,000 ml @ 30 mls/hr Q24H IV Last administered on 04/08/19at 03:48; Admin Dose 30 MLS/HR; Start 04/08/19 at 03:30 Levetiracetam 100 ml @ 400 mls/hr Q12 IVPB Last administered on 04/08/19at 11:32; Admin Dose 400 MLS/HR; Start 04/08/19 at 09:30 Nicardipine HCl 50 mg/Sodium Chloride 500 ml @ 50 mls/hr TITRATE IV ; Start 04/08/19 at 09:30 Sodium Chloride 1,000 ml @ 40 mls/hr Q24H IV Last administered on 04/08/19at 11:33; Admin Dose 40 MLS/HR; Start 04/08/19 at 10:30 Piperacillin Sod/ Tazobactam Sod 50 ml @ 100 mls/hr Q8H IVPB ; Start 04/08/19 at 21:00 Assessment/Plan Hospital Course (Demo Recall) 1. History of extensive coronary artery disease status post VT status post coronary bypass graft status post PCI 2. Status post recent CVA 3. End-stage renal disease on hemodialysis 4. Hypertension 5. Dyslipidemia 6. Severe encephalopathy 7. Dysphagia status post PEG placement 8. Severe anemia and history of GI bleed 9. Respiratory failure status post intubation on the vent now 10. Shock probably septic currently on Levophed drip Recommendations: Resume with aspirin Plavix as soon as okay with GI off blood pressure medication due to hypotension. Respiratory care and ventilatory support will be continued. Hemodialysis as per renal. CT of the head once stable Thank you for this referral. We will continue to follow along with you SEAN CROUCH MD [facility] SEAN CROUCH MD Apr 08, 2019 15:07
--- NOTE | 2019-04-08 16:44 | PN ---
Date/Time of Note Date/Time of Note DATE: 04/08/19 TIME: 16:41 Assessment/Plan VTE Prophylaxis Risk score (from Ns)>0 risk: 3 SCD applied (from Ns): No SCD contraindicated: other (scds) Pharmacological prophylaxis: other (scd) Lines/Catheters IV C[facility]ter Type (from [facility]): Urinary Cath still in place: No Assessment/Plan Hospital Course Assessment: Severe anemia- improved -EGD 04/03/2019 Moderate distal esophagitis. Gastrostomy tube in place. Gastritis -biopsies are negative for H. pylori. Duodenitis. Colonoscopy 04/03/2019 8 sessile polyp in the cecum. Snared and retrieved. -Tubular adenoma 6 mm sessile polyp ascending colon. Snared and retrieved. -Tubular adenoma 6 mm sessile polyp sigmoid. Snared and retrieved. -Tubular adenoma 20 mm sessile polyp sigmoid. Saline assisted lipectomy plus localization tattoo. Moderate-sized internal hemorrhoids. 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 -Replaced with 18 [place] gastrostomy tube Coronary artery disease status post CABG history Epilepsy BPH Plan: g-tube appeared dislodged- PEG removed and replaced without incident Will order KUB with Gastrografin via g-tube to verify placement Patient seen in collaboration with Dr. 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 PHYSICAL EXAMINATION: GENERAL: Well developed, well nourished, intubated SKIN: No lesions, g-tube in place NECK: Supple, no masses, thyroid normal CHEST: Inspection within normal limits. CARDIOVASCULAR: Heart: Regular rate and rhythm RESPIRATORY: Lungs clear to auscultation. GASTROINTESTINAL AND LIVER: Abdomen: Soft, non tenderness, G-tube in place, non- distended, no hernias, no masses, no organomegaly, no ascites, no guarding, no rebound tenderness, normoactive bowel sounds. Rectal: Deferred. GENITOURINARY: [Male genitalia within normal limits. EXTREMITIES: No cyanosis, clubbing or edema. Result Diagram: Result Diagram: 7/1/19 0435 04/08/19 0435 Results 24hrs Laboratory Tests Test 04/07/19 20:14 04/07/19 21:09 04/07/19 23:21 04/07/19 23:22 Bedside Glucose 188 184 Lactic Acid 1.7 Level Blood Gas Blood arterial Specimen Source Arterial Blood 04/07/2019 11:25 Date Drawn :29 PM Arterial Blood 7.390 pH (Temp corrected) Arterial Blood 46.3 H pCO2 (Temp correct) Arterial Blood 86.8 pO2 (Temp corrected) Arterial Blood 27.4 H HCO3 Arterial Blood 2.0 Base Excess Arterial Blood 95.5 Oxygen Saturatio n Santino Test N/A Arterial Blood LB Gas Puncture Site Arterial 0 Blood Carboxyhem oglobin Arterial Blood 0.2 Methemoglobin Blood Gas A-a O2 579.9 H Differential Oxyhemoglobin 95.3 Percent Blood Gas 37.0 Temperature Blood Gas MASK - NRB Modality FiO2 100.0 Blood Gas EMERITA Critical Value Read Back Blood Gas MA Notified Whom Blood Gas 04/07/2019 11:35 Notified Time :46 PM Test 04/07/19 23:58 04/08/19 00:08 04/08/19 01:00 04/08/19 01:35 Urine Color YELLOW Urine Clarity SLIGHTLY CLOUDY A Urine pH 8.0 Urine Specific 1.009 Bryant Urine Ketones NEGATIVE Urine Nitrite NEGATIVE Urine Bilirubin NEGATIVE Urine NEGATIVE Urobilinogen Urine Leukocyte NEGATIVE Esterase Urine 3 Microscopic RBC Urine 12 H Microscopic WBC Urine Bacteria FEW A Urine Hemoglobin NEGATIVE Urine Glucose 1+ H Urine Total 2+ H Protein White Blood 9.3 Count Red Blood Count 2.89 L Hemoglobin 8.6 L Hematocrit 27.6 L Mean Corpuscular 95.5 Volume Mean Corpuscular 29.8 Hemoglobin Mean Corpuscular 31.2 L Hemoglobin Dimple nt Red Cell 16.4 H Distribution Width Platelet Count 234 Mean Platelet 10.3 Volume Immature 0.300 Granulocytes % Neutrophils % 89.7 H Lymphocytes % 5.9 L Monocytes % 3.4 Eosinophils % 0.4 Basophils % 0.3 Nucleated Red 0.0 Blood Cells % Immature 0.030 Granulocytes # Neutrophils # 8.3 H Lymphocytes # 0.6 L Monocytes # 0.3 Eosinophils # 0.0 Basophils # 0.0 Nucleated Red 0.0 Blood Cells # Sodium Level 141 Potassium Level 4.3 Chloride Level 104 Carbon Dioxide 26 Level Anion Gap 11 Blood Urea 31 H Nitrogen Creatinine 6.34 H Est Glomerular 9 L Filtrat Rate mL/min Glucose Level 159 Calcium Level 8.2 L Total Bilirubin 0.1 L Direct Bilirubin 0.00 Indirect 0.1 Bilirubin Aspartate Amino 21 Transf (AST/SGOT ) Alanine 9 L Aminotransferase (ALT/SGPT) Alkaline 72 Phosphatase Total Protein 6.1 Albumin 2.9 L Globulin 3.20 Albumin/Globulin 0.90 Ratio Blood Gas Blood arterial Specimen Source Arterial Blood 04/08/2019 1:20:3 Date Drawn 1 AM Arterial Blood 7.421 pH (Temp corrected) Arterial Blood 40.6 pCO2 (Temp correct) Arterial Blood 200.7 H pO2 (Temp corrected) Arterial Blood 25.8 HCO3 Arterial Blood 1.3 Base Excess Arterial Blood 99.3 H Oxygen Saturatio n Santino Test ACCEPTAB Arterial Blood Right Radial Gas Puncture Site Arterial 0 Blood Carboxyhem oglobin Arterial Blood 0.3 Methemoglobin Blood Gas A-a O2 471.7 H Differential Oxyhemoglobin 99.0 Percent Blood Gas 37.0 Temperature Blood Gas 18.0 Respiration Rate Blood Gas Actual 18 Respiration Rate Blood Gas VENT - AC Modality FiO2 100.0 Blood Gas Tidal 500.0 Volume Blood Gas Low 5.0 PEEP Setting Blood Gas FL Notified Whom Blood Gas 04/08/2019 1:30:1 Notified Time 3 AM Bedside Glucose 180 Test 04/08/19 04:35 04/08/19 05:42 04/08/19 12:15 White Blood 11.6 #H Count Red Blood Count 2.91 L Hemoglobin 8.7 L Hematocrit 27.5 L Mean Corpuscular 94.5 Volume Mean Corpuscular 29.9 Hemoglobin Mean Corpuscular 31.6 L Hemoglobin Dimple nt Red Cell 17.1 H Distribution Width Platelet Count 274 Mean Platelet 10.7 H Volume Immature 0.200 Granulocytes % Neutrophils % Segmented 49 Neutrophils % (Manual) Band Neutrophils 39 H % (Manual) Lymphocytes % Lymphocytes % 9 L (Manual) Monocytes % Monocytes % 3 (Manual) Eosinophils % Basophils % Nucleated Red 0.0 Blood Cells % Immature 0.020 Granulocytes # Neutrophils # Neutrophils # 6.2 (Manual) Band Neutrophils 4.5 H # Lymphocytes 1.0 (Manual) Lymphocytes # Monocytes # Monocytes # 0.3 (Manual) Eosinophils # Basophils # Nucleated Red Blood Cells # Platelet NORMAL Estimate Giant Platelets 2 H Polychromasia 2+ Anisocytosis 1+ Macrocytosis 1+ Ovalocytes 1+ Sodium Level 140 Potassium Level 4.4 Chloride Level 101 Carbon Dioxide 29 Level Anion Gap 10 Blood Urea 38 H Nitrogen Creatinine 7.26 H Glucose Level 186 Calcium Level 9.1 Phosphorus Level 3.0 Magnesium Level 2.3 Albumin 2.8 L Bedside Glucose 198 151 Exam/Review of Systems Exam Vitals Vital Signs Date Temp Pulse Resp B/P (MAP) Pulse Ox O2 O2 Flow FiO2 Time Delivery Rate 04/08/19 76 18 97 40 14:54 04/08/19 124/62 13:45 (82) 04/08/19 Mechanical 13:00 Ventilator 04/08/19 98.9 12:00 04/07/19 15.0 23:37 Intake and Output 04/07/19 04/07/19 04/08/19 1515:00 23:00 07:00 IntakeIntake Total 403.9553 ml OutputOutput Total 185 ml BalanceBalance 218.9553 ml Results Results 24hrs Laboratory Tests Test 04/07/19 20:14 04/07/19 21:09 04/07/19 23:21 04/07/19 23:22 Bedside Glucose 188 184 Lactic Acid 1.7 Level Blood Gas Blood arterial Specimen Source Arterial Blood 04/07/2019 11:25 Date Drawn :29 PM Arterial Blood 7.390 pH (Temp corrected) Arterial Blood 46.3 H pCO2 (Temp correct) Arterial Blood 86.8 pO2 (Temp corrected) Arterial Blood 27.4 H HCO3 Arterial Blood 2.0 Base Excess Arterial Blood 95.5 Oxygen Saturatio n Santino Test N/A Arterial Blood LB Gas Puncture Site Arterial 0 Blood Carboxyhem oglobin Arterial Blood 0.2 Methemoglobin Blood Gas A-a O2 579.9 H Differential Oxyhemoglobin 95.3 Percent Blood Gas 37.0 Temperature Blood Gas MASK - NRB Modality FiO2 100.0 Blood Gas EMERITA Critical Value Read Back Blood Gas YASMINE Notified Whom Blood Gas 04/07/2019 11:35 Notified Time :46 PM Test 04/07/19 23:58 04/08/19 00:08 04/08/19 01:00 04/08/19 01:35 Urine Color YELLOW Urine Clarity SLIGHTLY CLOUDY A Urine pH 8.0 Urine Specific 1.009 Bryant Urine Ketones NEGATIVE Urine Nitrite NEGATIVE Urine Bilirubin NEGATIVE Urine NEGATIVE Urobilinogen Urine Leukocyte NEGATIVE Esterase Urine 3 Microscopic RBC Urine 12 H Microscopic WBC Urine Bacteria FEW A Urine Hemoglobin NEGATIVE Urine Glucose 1+ H Urine Total 2+ H Protein White Blood 9.3 Count Red Blood Count 2.89 L Hemoglobin 8.6 L Hematocrit 27.6 L Mean Corpuscular 95.5 Volume Mean Corpuscular 29.8 Hemoglobin Mean Corpuscular 31.2 L Hemoglobin Dimple nt Red Cell 16.4 H Distribution Width Platelet Count 234 Mean Platelet 10.3 Volume Immature 0.300 Granulocytes % Neutrophils % 89.7 H Lymphocytes % 5.9 L Monocytes % 3.4 Eosinophils % 0.4 Basophils % 0.3 Nucleated Red 0.0 Blood Cells % Immature 0.030 Granulocytes # Neutrophils # 8.3 H Lymphocytes # 0.6 L Monocytes # 0.3 Eosinophils # 0.0 Basophils # 0.0 Nucleated Red 0.0 Blood Cells # Sodium Level 141 Potassium Level 4.3 Chloride Level 104 Carbon Dioxide 26 Level Anion Gap 11 Blood Urea 31 H Nitrogen Creatinine 6.34 H Est Glomerular 9 L Filtrat Rate mL/min Glucose Level 159 Calcium Level 8.2 L Total Bilirubin 0.1 L Direct Bilirubin 0.00 Indirect 0.1 Bilirubin Aspartate Amino 21 Transf (AST/SGOT ) Alanine 9 L Aminotransferase (ALT/SGPT) Alkaline 72 Phosphatase Total Protein 6.1 Albumin 2.9 L Globulin 3.20 Albumin/Globulin 0.90 Ratio Blood Gas Blood arterial Specimen Source Arterial Blood 04/08/2019 1:20:3 Date Drawn 1 AM Arterial Blood 7.421 pH (Temp corrected) Arterial Blood 40.6 pCO2 (Temp correct) Arterial Blood 200.7 H pO2 (Temp corrected) Arterial Blood 25.8 HCO3 Arterial Blood 1.3 Base Excess Arterial Blood 99.3 H Oxygen Saturatio n Santino Test ACCEPTAB Arterial Blood Right Radial Gas Puncture Site Arterial 0 Blood Carboxyhem oglobin Arterial Blood 0.3 Methemoglobin Blood Gas A-a O2 471.7 H Differential Oxyhemoglobin 99.0 Percent Blood Gas 37.0 Temperature Blood Gas 18.0 Respiration Rate Blood Gas Actual 18 Respiration Rate Blood Gas VENT - AC Modality FiO2 100.0 Blood Gas Tidal 500.0 Volume Blood Gas Low 5.0 PEEP Setting Blood Gas FL Notified Whom Blood Gas 04/08/2019 1:30:1 Notified Time 3 AM Bedside Glucose 180 Test 04/08/19 04:35 04/08/19 05:42 04/08/19 12:15 White Blood 11.6 #H Count Red Blood Count 2.91 L Hemoglobin 8.7 L Hematocrit 27.5 L Mean Corpuscular 94.5 Volume Mean Corpuscular 29.9 Hemoglobin Mean Corpuscular 31.6 L Hemoglobin Dimple nt Red Cell 17.1 H Distribution Width Platelet Count 274 Mean Platelet 10.7 H Volume Immature 0.200 Granulocytes % Neutrophils % Segmented 49 Neutrophils % (Manual) Band Neutrophils 39 H % (Manual) Lymphocytes % Lymphocytes % 9 L (Manual) Monocytes % Monocytes % 3 (Manual) Eosinophils % Basophils % Nucleated Red 0.0 Blood Cells % Immature 0.020 Granulocytes # Neutrophils # Neutrophils # 6.2 (Manual) Band Neutrophils 4.5 H # Lymphocytes 1.0 (Manual) Lymphocytes # Monocytes # Monocytes # 0.3 (Manual) Eosinophils # Basophils # Nucleated Red Blood Cells # Platelet NORMAL Estimate Giant Platelets 2 H Polychromasia 2+ Anisocytosis 1+ Macrocytosis 1+ Ovalocytes 1+ Sodium Level 140 Potassium Level 4.4 Chloride Level 101 Carbon Dioxide 29 Level Anion Gap 10 Blood Urea 38 H Nitrogen Creatinine 7.26 H Glucose Level 186 Calcium Level 9.1 Phosphorus Level 3.0 Magnesium Level 2.3 Albumin 2.8 L Bedside Glucose 198 151 Medications Medication Current Medications IV Flush (NS 3 ml) 3 ml PER PROTOCOL IV ; Start 03/29/19 at 13:30 Ondansetron HCl (Zofran Inj) 4 mg Q6H PRN IV NAUSEA/VOMITING Last administered on 04/07/19at 18:53; Admin Dose 4 MG; Start 03/29/19 at 13:30 Acetaminophen (Tylenol Tab) 650 mg Q6H PRN PO .PAIN 1-3 OR TEMP Last administered on 03/31/19at 05:48; Admin Dose 650 MG; Start 03/29/19 at 13:30 Hydralazine HCl (Apresoline) 10 mg Q4H PRN IV sbp >160 Last administered on 04/02/19at 15:15; Admin Dose 10 MG; Start 03/29/19 at 14:00 Miscellaneous Information 1 ea NOTE XX ; Start 03/29/19 at 14:30 Glucose (Glutose) 15 gm Q15M PRN PO DECREASED GLUCOSE; Start 03/29/19 at 14:30 Glucose (Glutose) 22.5 gm Q15M PRN PO DECREASED GLUCOSE; Start 03/29/19 at 14:30 Dextrose (D50w Syringe) 25 ml Q15M PRN IV DECREASED GLUCOSE; Start 03/29/19 at 14:30 Dextrose (D50w Syringe) 50 ml Q15M PRN IV DECREASED GLUCOSE; Start 03/29/19 at 14:30 Glucagon (Glucagen) 1 mg Q15M PRN IM DECREASED GLUCOSE; Start 03/29/19 at 14:30 Glucose (Glutose) 15 gm Q15M PRN BUCCAL DECREASED GLUCOSE; Start 03/29/19 at 14:30 Albumin Human 100 ml @ 100 mls/hr WITH DIALYSIS PRN IV SBP <90 DURING DIALYSIS Last administered on 04/03/19at 21:18; Admin Dose 100 MLS/HR; Start 03/29/19 at 17:00 Albuterol/ Ipratropium (Duoneb) 3 ml Q2H RESP THERAPY PRN HHN WHEEZING AND RESP DISTRESS Last administered on 04/01/19at 21:23; Admin Dose 3 ML; Start 03/29/19 at 18:00 Lorazepam (Ativan) 0.5 mg Q4H PRN IV AGITATION Last administered on 04/02/19at 03:55; Admin Dose 0.5 MG; Start 03/29/19 at 18:00 IV Flush (NS 10 ml) 10 ml Q8 PRN IV IV PROTOCOL; Start 03/29/19 at 18:00 Labetalol HCl (Labetalol) 10 mg Q4H PRN IV sbp >160; Start 03/30/19 at 09:00 Haloperidol (Haldol) 5 mg Q6H PRN IM agitation Last administered on 03/31/19at 00:10; Admin Dose 5 MG; Start 03/30/19 at 10:00 Heparin Sodium (Porcine) (Heparin (1000 Units/ml)) 3,200 unit AFTER DIALYSIS CATHETER Last administered on 04/08/19at 11:16; Admin Dose 3,200 UNIT; Start 03/30/19 at 17:00 Atorvastatin Calcium (Lipitor) 40 mg HS NGT Last administered on 04/06/19at 21:48; Admin Dose 40 MG; Start 03/31/19 at 21:00 Baclofen (Lioresal) 10 mg BID GTB Last administered on 04/07/19at 08:23; Admin Dose 10 MG; Start 03/31/19 at 21:00 Doxazosin Mesylate (Cardura) 2 mg DAILY NGT Last administered on 04/07/19 08:24; Admin Dose 2 MG; Start 03/31/19 at 14:30 Gabapentin (Neurontin) 100 mg QHS PO Last administered on 04/06/19 21:48; Admin Dose 100 MG; Start 03/31/19 at 21:00 Losartan Potassium (Cozaar) 100 mg DAILY NGT Last administered on 04/07/19 08:23; Admin Dose 100 MG; Start 03/31/19 at 14:30 Sertraline HCl (Zoloft) 25 mg HS NGT Last administered on 04/06/19 21:49; Admin Dose 25 MG; Start 03/31/19 at 21:00 Acetaminophen (Tylenol Liquid) 650 mg Q4H PRN PEG MILD PAIN(1-3)OR ELEVATED TEMP Last administered on 03/31/19 16:31; Admin Dose 650 MG; Start 03/31/19 at 16:00 Insulin Aspart (Novolog Insulin Pen) NOVOLOG *MILD* ALGORI... Q6 SC Last administered on 04/08/19 12:17; Admin Dose 1 UNIT; Start 04/02/19 at 12:00 Lactobacillus Acidophilus/ Rhamnosus (Culturelle) 1 cap TID GTB Last administered on 04/07/19 12:14; Admin Dose 1 CAP; Start 04/02/19 at 13:00 Carvedilol (Coreg) 25 mg BID NGT Last administered on 04/07/19 08:23; Admin Dose 25 MG; Start 04/02/19 at 21:00 Hydralazine HCl (Apresoline) 75 mg TID NGT Last administered on 04/07/19 12:26; Admin Dose 75 MG; Start 04/02/19 at 21:00 Epoetin [place]-epbx (Retacrit (Esrd)) 10,000 unit MoWeFr@1700 SC Last administered on 04/05/19 17:49; Admin Dose 10,000 UNIT; Start 04/03/19 at 19:30 Lansoprazole (Prevacid) 30 mg BID@0600,1800 GTB Last administered on 04/07/19 17:04; Admin Dose 30 MG; Start 04/04/19 at 18:00 Multivit/Ca Carb/ B Cmplx/FA/Prenat (Karena-Geovanni) 1 tab DAILY GTB Last ad ministered on 04/07/19 08:22; Admin Dose 1 TAB; Start 04/04/19 at 11:30 Albuterol (Proventil 0.083% (Neb)) 2.5 mg Q6HWA RESP THERAPY HHN Last administered on 04/07/19 19:21; Admin Dose 2.5 MG; Start 04/04/19 at 14:00 Aspirin (Aspirin) 81 mg DAILY PO Last administered on 04/07/19 08:23; Admin D ose 81 MG; Start 04/05/19 at 09:00 Clopidogrel Bisulfate (plaVIX) 75 mg DAILY GTB Last administered on 04/07/19 08:23; Admin Dose 75 MG; Start 04/07/19 at 09:00 Quetiapine Fumarate (Seroquel) 50 mg BID GTB ; Start 04/07/19 at 09:00 Propofol 100 ml @ 2.097 mls/ hr Q12H PRN IV AGITATION Last administered on 04/08/19at 11:39; Admin Dose 6.291 MLS/HR; Start 04/08/19 at 00:00 Fentanyl 100 ml @ 2.5 mls/hr TITRATE IV Last administered on 04/08/19at 09:51; Admin Dose 2.5 MLS/HR; Start 04/08/19 at 00:00 Midazolam HCl 50 ml @ 1 mls/hr TITRATE PRN IV agitation Last administered on 04/08/19at 10:56; Admin Dose 1 MLS/HR; Start 04/08/19 at 00:00 Norepinephrine 250 ml @ 1.875 mls/ hr TITRATE IV Last administered on 04/08/19at 01:05; Admin Dose 1.875 MLS/HR; Start 04/08/19 at 00:00 Vancomycin HCl (Vanco Iv Per Pharmacy) VANCOMYCIN PER PHARMACY PER PROTOCOL XX ; Start 04/08/19 at 00:30 Miscellaneous Information (*Rx Drug Level Order Reminder*) VANCO RANDOM ONCE ONCE XX ; Start 04/10/19 at 05:00; Stop 04/10/19 at 05:01 Sodium Chloride 1,000 ml @ 30 mls/hr Q24H IV Last administered on 04/08/19at 03:48; Admin Dose 30 MLS/HR; Start 04/08/19 at 03:30 Levetiracetam 100 ml @ 400 mls/hr Q12 IVPB Last administered on 04/08/19at 11:32; Admin Dose 400 MLS/HR; Start 04/08/19 at 09:30 Nicardipine HCl 50 mg/Sodium Chloride 500 ml @ 50 mls/hr TITRATE IV ; Start 04/08/19 at 09:30 Sodium Chloride 1,000 ml @ 40 mls/hr Q24H IV Last administered on 04/08/19at 11:33; Admin Dose 40 MLS/HR; Start 04/08/19 at 10:30 Piperacillin Sod/ Tazobactam Sod 50 ml @ 100 mls/hr Q8H IVPB ; Start 04/08/19 at 21:00 JUNE LEE Apr 08, 2019 16:44
[2019-04-08] MEDS: EPOETIN ALFA-EPBX (ESRD) 10,000 UNIT/ML VIAL SC SCH (17:53)
[2019-04-08] MEDS: ATORVASTATIN 40 MG TAB NGT SCH (21:00)
[2019-04-08] MEDS: GABAPENTIN 100 MG CAP PO SCH (21:00)
[2019-04-08] MEDS: SERTRALINE 50 MG TAB NGT SCH (21:00)
[2019-04-09] VITALS (94 sets, daily range): BP systolic 82–174; BP diastolic 53–118; PULSE 62–97; RESP 0–22
[2019-04-09] MEDS: PIPER-TAZO 2.25 GM/NS 50 ML IVPB SCH ×3 (05:58→21:06)
[2019-04-09] MEDS: LANSOPRAZOLE 30 MG CAP GTB SCH ×2 (05:58→18:03)
[2019-04-09] MEDS: SOD CHLORIDE 0.9% 1,000 ML IV SCH ×2 (05:59→11:59)
[2019-04-09] MEDS: INSULIN ASPART [NOVOLOG] 3 ML PEN SC SCH ×4 (06:04→18:00)
--- NOTE | 2019-04-09 07:29 | CONS ---
Consult Date/Type/Reason Admit Date/Time Mar 29, 2019 at 13:16 Initial Consult Date 04/07/19 Type of Consultation: cv Requesting Provider: LILLIAN ZHANG MD Date/Time of Note DATE: 04/09/19 TIME: 07:27 Subjective Interventional cardiology follow-up progress note Subjective: Discussed with the staff Telemetry was reviewed. pt remains intubated pt is still hypotensive and Levophed drip in the ICU. Patient nonverbal. objective: General: s/p intubation on the ventilator HEENT: NC/AT. pupils are equal. round. NECK:. no stridor. CV: RRR. systolic murmur; no gallop or rubs. PULM: + rhonchi. GI: SOFT, NT, ND, no rebound or guarding Extremity: trace B/L LE edema. no clubbing. neuro: Sedated not responsive Psych: calm the moment rectal: deferred : normal Objective Vitals Vital Signs Date Temp Pulse Resp B/P (MAP) Pulse Ox O2 O2 Flow FiO2 Time Delivery Rate 04/09/19 72 18 100/64 100 Mechanical 05:45 (76) Ventilator 04/09/19 40 05:01 04/09/19 98.1 04:00 04/07/19 15.0 23:37 Intake and Output 04/08/19 04/08/19 04/09/19 1515:00 23:00 07:00 IntakeIntake Total 584.320 ml 617.269 ml 380.656 ml OutputOutput Total 3110 ml 10 ml BalanceBalance -2525.680 ml 607.269 ml 380.656 ml Results/Medications Result Diagram: 04/09/19 0500 04/09/19 0435 Results 24 hrs Laboratory Tests Test 04/08/19 12:15 04/08/19 17:05 04/08/19 17:54 04/09/19 04:35 Bedside Glucose 151 173 Prothrombin Time 14.3 Prothrombin Time Ratio 1.1 INR International 1.10 Normalized Ratio Sodium Level 143 Potassium Level 3.5 Chloride Level 111 H Carbon Dioxide Level 25 Anion Gap 7 Blood Urea Nitrogen 24 #H Creatinine 4.33 #H Glucose Level 131 # Calcium Level 7.8 L Phosphorus Level 2.4 L Magnesium Level 2.0 Albumin 2.5 L Test 04/09/19 05:00 04/09/19 06:02 White Blood Count 13.7 H Red Blood Count 2.26 #L Hemoglobin 7.0 L Hematocrit 22.1 L Mean Corpuscular Volume 97.8 Mean Corpuscular 31.0 Hemoglobin Mean Corpuscular 31.7 L Hemoglobin Concent Red Cell Distribution 17.8 H Width Platelet Count 192 # Mean Platelet Volume 10.5 H Immature Granulocytes % 0.300 Neutrophils % Lymphocytes % Monocytes % Eosinophils % Basophils % Nucleated Red Blood 0.0 Cells % Immature Granulocytes # 0.040 H Neutrophils # Lymphocytes # Monocytes # Eosinophils # Basophils # Nucleated Red Blood Cells # Bedside Glucose 145 Home Meds Reported Medications Bisacodyl (Dulcolax) 10 Mg Supp.rect, 10 MG RC DAILY PRN for CONSTIPATION, SUPP.RECT 03/29/19 Sodium Phosphate,[place]-Dibasic (Enema Ready To Use) 133 Ml Enema, 133 ML RC EVERY 2 DAYS PRN for CONSTIPATION, ENEMA 03/29/19 Acetaminophen* (Acetaminophen*) 650 Mg Tablet, 650 MG GTB Q4 PRN for MILD PAIN LEVEL 1-3, #30 TAB AND FEVER 03/29/19 Acetaminophen* (Acetaminophen*) 500 MG Extra Strength Tablet, 1000 MG GTB Q4H PRN for MODERATE PAIN LEVEL 4-6, TAB 03/29/19 Acetaminophen* (Acetaminophen*) 500 MG Extra Strength Tablet, 1000 MG GTB BID PRN for GENERAL BODY PAIN, TAB 03/29/19 Amino Acids/Protein Hydrolys (Pro-Stat Awc Liquid) 30 Ml Liquid, 30 ML GTB DAILY SUGAR FREE 03/29/19 Multivitamin* (Daily Value*) 1 Each Tablet, 1 TAB GTB DAILY, TAB 03/29/19 Ascorbic Acid* (Vitamin C*) 500 Mg Capsule.sa, 500 MG GTB DAILY, CAP 03/29/19 Ferrous Sulfate (Ferrous Sulfate) 300 Mg/5 Ml Liquid, 325 MG GTB DAILY 03/29/19 Cran/Vitc/Mannose/Inulin/Brom (Uti-Stat Liquid) 3,875 Mg/30 Ml Liquid, 3875 MG GTB DAILY 03/29/19 Cranberry Extract (Cranberry) 425 Mg Capsule, 425 MG GTB DAILY, CAP 03/29/19 Insulin Glulisine (Apidra Solostar) 100 Unit/1 Ml Insuln.pen, 4 UNIT SQ TIDM A, #1 TUB 03/29/19 Insulin Glargine,Hum.rec.anlog (Darylaglar Pavanpen U-100) 100 Unit/1 Ml Insuln.pen, 25 UNIT SC QHS, EA 03/29/19 Insulin Regular, Human (Humulin R) 100 Unit/1 Ml Vial, 0 IJ AC MEALS AND BEDTIME, VIAL 0-150 = 0 UNIT 151-200 = 1 UNIT 201-250 = 2 UNITS 251-300 = 3 UNITS 301-350 = 4 UNITS 351-400 = 5 UNITS OVER 400 GIVE 6 UNITS UNDER 70 OR OVER 400 NOTIFY 03/29/19 Sertraline Hcl* (Sertraline Hcl*) 25 Mg Tablet, 25 MG GTB DAILY, #30 TAB 03/29/19 Lorazepam* (Ativan*) 0.5 Mg Tablet, 0.5 MG GTB DAILY PRN for ANXIETY, #30 TAB 03/29/19 Quetiapine Fumarate* (Seroquel*) 25 Mg Tablet, 25 MG GTB HS, #30 TAB 03/29/19 Lorazepam* (Lorazepam*) 0.5 Mg Tablet, 0.5 MG GTB DAILY PRN for ANXIETY, TAB 03/29/19 Clonidine Hcl* (Clonidine Hcl*) 0.1 Mg Tab, 0.1 MG GTB DAILY PRN for ELEVATED BLOOD PRESSURE, TAB SBP >160 03/29/19 Azelastine Hcl* (Azelastine Hcl*) 137 Mcg/0.137 Ml [place].pump, 2 SPRAYS NASAL BID, #1 EA TO EACH NOSTRIL 03/29/19 Carvedilol* (Carvedilol*) 12.5 Mg Tablet, 12.5 MG GTB BID, #60 TAB 03/29/19 Diltiazem Hcl* (Cardizem CD*) 240 Mg Cap.sr.24h, 240 MG GTB DAILY, #30 CAP 03/29/19 Ergocalciferol (Vitamin D2) (VITAMIN D2) 50,000 Unit Capsule, 56193 UNIT GTB EVERY MONDAY, CAP 03/29/19 Hydralazine Hcl* (Hydralazine Hcl*) 50 Mg Tab, 50 MG GTB TID PRN for ELEVATED BLOOD PRESSURE, #60 TAB 03/29/19 Losartan Potassium* (Losartan Potassium*) 100 Mg Tablet, 100 MG GTB DAILY, TAB 03/29/19 Metoprolol Succinate* (Toprol XL*) 25 Mg Tab.sr.24h, 25 MG GTB DAILY, #30 TAB 03/29/19 Linagliptin (TRADJENTA) 5 Mg Tablet, 5 MG GTB DAILY, TAB 03/29/19 Albuterol Sulfate* (Proair HFA*) 8.5 Gm Hfa.aer.ad, 2 PUFF INH Q4H PRN for WHEEZING AND SOB, #1 INHALER 03/29/19 Ranitidine Hcl* (Ranitidine Hcl*) 300 Mg Tablet, 300 MG GTB HS, #30 TAB 03/29/19 Levetiracetam* (Keppra*) 500 Mg Tablet, 500 MG GTB BID, TAB 03/29/19 Gabapentin* (Gabapentin*) 100 Mg Capsule, 100 MG GTB QHS, #90 CAP 03/29/19 Doxazosin Mesylate* (Doxazosin Mesylate*) 2 Mg Tablet, 2 MG GTB HS, TAB 03/29/19 Docusate Sodium* (Dok*) 100 Mg Tablet, 100 MG GTB BID, #60 CAP 03/29/19 Cyanocobalamin (Vitamin B-12) (Cyanocobalamin Injection) 1,000 Mcg/1 Ml Vial, 1000 MCG IJ EVERY MONDAY, VIAL 03/29/19 Clopidogrel Bisulfate (Clopidogrel) 75 Mg Tablet, 75 MG GTB DAILY, #30 TAB 03/29/19 Calcium Carbonate ([place]-500) 500 Mg Tablet, 500 MG GTB DAILY, TAB 03/29/19 Baclofen* (Baclofen*) 10 Mg Tablet, 10 MG GTB BID, TAB 03/29/19 Atorvastatin* (Atorvastatin*) 40 Mg Tablet, 40 MG GTB QHS, #30 TAB 03/29/19 Aspirin (Low Dose Aspirin) 81 Mg Tablet.dr, 81 MG GTB DAILY, #30 TAB 03/29/19 Medications Current Medications IV Flush (NS 3 ml) 3 ml PER PROTOCOL IV ; Start 03/29/19 at 13:30 Ondansetron HCl (Zofran Inj) 4 mg Q6H PRN IV NAUSEA/VOMITING Last administered on 04/07/19at 18:53; Admin Dose 4 MG; Start 03/29/19 at 13:30 Acetaminophen (Tylenol Tab) 650 mg Q6H PRN PO .PAIN 1-3 OR TEMP Last administered on 03/31/19at 05:48; Admin Dose 650 MG; Start 03/29/19 at 13:30 Hydralazine HCl (Apresoline) 10 mg Q4H PRN IV sbp >160 Last administered on 04/02/19at 15:15; Admin Dose 10 MG; Start 03/29/19 at 14:00 Miscellaneous Information 1 ea NOTE XX ; Start 03/29/19 at 14:30 Glucose (Glutose) 15 gm Q15M PRN PO DECREASED GLUCOSE; Start 03/29/19 at 14:30 Glucose (Glutose) 22.5 gm Q15M PRN PO DECREASED GLUCOSE; Start 03/29/19 at 14:30 Dextrose (D50w Syringe) 25 ml Q15M PRN IV DECREASED GLUCOSE; Start 03/29/19 at 14:30 Dextrose (D50w Syringe) 50 ml Q15M PRN IV DECREASED GLUCOSE; Start 03/29/19 at 14:30 Glucagon (Glucagen) 1 mg Q15M PRN IM DECREASED GLUCOSE; Start 03/29/19 at 14:30 Glucose (Glutose) 15 gm Q15M PRN BUCCAL DECREASED GLUCOSE; Start 03/29/19 at 14:30 Albumin Human 100 ml @ 100 mls/hr WITH DIALYSIS PRN IV SBP <90 DURING DIALYSIS Last administered on 04/03/19at 21:18; Admin Dose 100 MLS/HR; Start 03/29/19 at 17:00 Albuterol/ Ipratropium (Duoneb) 3 ml Q2H RESP THERAPY PRN HHN WHEEZING AND RESP DISTRESS Last administered on 04/01/19at 21:23; Admin Dose 3 ML; Start 03/29/19 at 18:00 Lorazepam (Ativan) 0.5 mg Q4H PRN IV AGITATION Last administered on 04/02/19at 03:55; Admin Dose 0.5 MG; Start 03/29/19 at 18:00 IV Flush (NS 10 ml) 10 ml Q8 PRN IV IV PROTOCOL; Start 03/29/19 at 18:00 Labetalol HCl (Labetalol) 10 mg Q4H PRN IV sbp >160; Start 03/30/19 at 09:00 Haloperidol (Haldol) 5 mg Q6H PRN IM agitation Last administered on 6/23/19at 00:10; Admin Dose 5 MG; Start 03/30/19 at 10:00 Heparin Sodium (Porcine) (Heparin (1000 Units/ml)) 3,200 unit AFTER DIALYSIS CATHETER Last administered on 04/08/19 11:16; Admin Dose 3,200 UNIT; Start 03/30/19 at 17:00 Atorvastatin Calcium (Lipitor) 40 mg HS NGT Last administered on 04/06/19 21:48; Admin Dose 40 MG; Start 03/31/19 at 21:00 Baclofen (Lioresal) 10 mg BID GTB Last administered on 04/07/19 08:23; Admin Dose 10 MG; Start 03/31/19 at 21:00 Doxazosin Mesylate (Cardura) 2 mg DAILY NGT Last administered on 04/07/19 08:24; Admin Dose 2 MG; Start 03/31/19 at 14:30 Gabapentin (Neurontin) 100 mg QHS PO Last administered on 04/06/19 21:48; Admin Dose 100 MG; Start 03/31/19 at 21:00 Losartan Potassium (Cozaar) 100 mg DAILY NGT Last administered on 04/07/19 08:23; Admin Dose 100 MG; Start 03/31/19 at 14:30 Sertraline HCl (Zoloft) 25 mg HS NGT Last administered on 04/06/19 21:49; Admin Dose 25 MG; Start 03/31/19 at 21:00 Acetaminophen (Tylenol Liquid) 650 mg Q4H PRN PEG MILD PAIN(1-3)OR ELEVATED TEMP Last administered on 03/31/19 16:31; Admin Dose 650 MG; Start 03/31/19 at 16:00 Insulin Aspart (Novolog Insulin Pen) NOVOLOG *MILD* ALGORI... Q6 SC Last administered on 04/09/19 06:04; Admin Dose 1 UNIT; Start 04/02/19 at 12:00 Lactobacillus Acidophilus/ Rhamnosus (Culturelle) 1 cap TID GTB Last administered on 04/07/19 12:14; Admin Dose 1 CAP; Start 04/02/19 at 13:00 Carvedilol (Coreg) 25 mg BID NGT Last administered on 04/07/19 08:23; Admin Dose 25 MG; Start 04/02/19 at 21:00 Hydralazine HCl (Apresoline) 75 mg TID NGT Last administered on 04/07/19 12:26; Admin Dose 75 MG; Start 04/02/19 at 21:00 Epoetin [place]-epbx (Retacrit (Esrd)) 10,000 unit MoWeFr@1700 SC Last admi nistered on 04/08/19 17:53; Admin Dose 10,000 UNIT; Start 04/03/19 at 19:30 Lansoprazole (Prevacid) 30 mg BID@0600,1800 GTB Last administered on 04/07/19 17:04; Admin Dose 30 MG; Start 04/04/19 at 18:00 Multivit/Ca Carb/ B Cmplx/FA/Prenat (Karena-Geovanni) 1 tab DAILY GTB Last administered on 04/07/19 08:22; Admin Dose 1 TAB; Start 04/04/19 at 11:30 Albuterol (Proventil 0.083% (Neb)) 2.5 mg Q6HWA RESP THERAPY HHN Last administered on 04/08/19 19:45; Admin Dose 2.5 MG; Start 04/04/19 at 14:00 Aspirin (Aspirin) 81 mg DAILY PO Last administered on 04/07/19 08:23; Admin Dose 81 MG; Start 04/05/19 at 09:00 Clopidogrel Bisulfate (plaVIX) 75 mg DAILY GTB Last administered on 04/07/19 08:23; Admin Dose 75 MG; Start 04/07/19 at 09:00 Quetiapine Fumarate (Seroquel) 50 mg BID GTB ; Start 04/07/19 at 09:00 Propofol 100 ml @ 2.097 mls/ hr Q12H PRN IV AGITATION Last administered on 04/08/19 11:39; Admin Dose 6.291 MLS/HR; Start 04/08/19 at 00:00 Fentanyl 100 ml @ 2.5 mls/hr TITRATE IV Last administered on 04/08/19 09:51; Admin Dose 2.5 MLS/HR; Start 04/08/19 at 00:00 Midazolam HCl 50 ml @ 1 mls/hr TITRATE PRN IV agitation Last administered on 04/08/19 22:04; Admin Dose 3 MLS/HR; Start 04/08/19 at 00:00 Norepinephrine 250 ml @ 1.875 mls/ hr TITRATE IV Last administered on 04/08/19at 22:04; Admin Dose 7.5 MLS/HR; Start 04/08/19 at 00:00 Vancomycin HCl (Vanco Iv Per Pharmacy) VANCOMYCIN PER PHARMACY PER PROTOCOL XX ; Start 04/08/19 at 00:30 Miscellaneous Information (*Rx Drug Level Order Reminder*) VANCO RANDOM ONCE ONCE XX ; Start 04/10/19 at 05:00; Stop 04/10/19 at 05:01 Sodium Chloride 1,000 ml @ 30 mls/hr Q24H IV Last administered on 04/09/19at 05:59; Admin Dose 30 MLS/HR; Start 04/08/19 at 03:30 Levetiracetam 100 ml @ 400 mls/hr Q12 IVPB Last administered on 04/08/19at 21:19; Admin Dose 400 MLS/HR; Start 04/08/19 at 09:30 Nicardipine HCl 50 mg/Sodium Chloride 500 ml @ 50 mls/hr TITRATE IV ; Start 04/08/19 at 09:30 Sodium Chloride 1,000 ml @ 40 mls/hr Q24H IV Last administered on 04/08/19at 11:33; Admin Dose 40 MLS/HR; Start 04/08/19 at 10:30 Piperacillin Sod/ Tazobactam Sod 50 ml @ 100 mls/hr Q8H IVPB Last administered on 04/09/19at 05:58; Admin Dose 100 MLS/HR; Start 04/08/19 at 21:00 Assessment/Plan Hospital Course (Demo Recall) 1. History of extensive coronary artery disease status post ND status post coronary bypass graft status post PCI 2. Status post recent CVA 3. End-stage renal disease on hemodialysis 4. Hypertension 5. Dyslipidemia 6. Severe encephalopathy 7. Dysphagia status post PEG placement 8. Severe anemia and history of GI bleed 9. Respiratory failure status post intubation on the vent now 10. Shock probably septic currently on Levophed drip Recommendations: Resume with aspirin Plavix as soon as okay with GI off blood pressure medication due to hypotension. Respiratory care and ventilatory support will be continued. Hemodialysis as per renal. CT of the head once stable transfuse prn will check echo Thank you for this referral. We will continue to follow along with you SEAN CROUCH MD [facility] SEAN CROUCH MD Apr 09, 2019 07:29
[2019-04-09] MEDS: ALBUTEROL 0.083% (NEB) 2.5 MG/3 ML AMP HHN SCH ×2 (08:00→13:16)
[2019-04-09] MEDS: LEVETIRACETAM 500 MG (PMX) 100 ML IVPB SCH ×2 (08:45→21:04)
[2019-04-09] MEDS: ALBUTEROL/IPRATROPIUM (NEB) 3 ML AMP HHN PRN (08:52)
[2019-04-09] MEDS: LOSARTAN 50 MG TAB NGT SCH (09:00)
[2019-04-09] MEDS: QUETIAPINE 25 MG TAB GTB SCH ×2 (09:00→21:05)
[2019-04-09] MEDS: MULTIVIT/CA CARB/B CMPLX/FA TAB GTB SCH (09:00)
[2019-04-09] MEDS: LACTOBACILLUS RHAMNOSUS CAP GTB SCH ×3 (09:00→21:05)
[2019-04-09] MEDS: BACLOFEN 10 MG TAB GTB SCH ×2 (09:00→21:05)
[2019-04-09] MEDS: ASPIRIN 81 MG TAB PO SCH (09:00)
[2019-04-09] MEDS: CLOPIDOGREL 75 MG TAB GTB SCH (09:00)
[2019-04-09] MEDS: DOXAZOSIN 2 MG TAB NGT SCH (09:00)
--- NOTE | 2019-04-09 10:11 | CONS ---
Assessment/Plan Assessment/Plan Assessment/Plan (Daily) 1. Acute hypoxemic respiratory failure intubated on ventilator 2. Accelerated HTN 3. ESRD on HD - MWF schedule at [facility] HD [facility] 4. H/o CAD s/p CABG before 5. H/o CAD with previous recent stent placement in 09/2018 6. h/o HTN 7. H/o DM II 8. h/o HL 9. 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 H/o BPH -EGD 04/03/2019 Moderate distal esophagitis. Gastrostomy tube in place. Gastritis rule out H. pylori infection. Biopsies obtained. Duodenitis. Colonoscopy 04/03/2019 8 sessile polyp in the cecum. Snared and retrieved. 6 mm sessile polyp ascending colon. Snared and retrieved. 6 mm sessile polyp sigmoid. Snared and retrieved. 20 mm sessile polyp sigmoid. Saline assisted lipectomy plus localization tattoo. Moderate-sized internal hemorrhoids Plan: s/p HD yesteday 2.5 L removed - will continue pt on MWF schedule while being in hospital- Hd ordered for monday - ventilator management as per pulmonary BP controlled with Losartan 100mg po daily Coreg 25 BID, Hydralazine 75 mg pO TID for better BP control Epogen 97407 units SQ MWF will follow up Consultation Date/Type/Reason Admit Date/Time Mar 29, 2019 at 13:16 Initial Consult Date 03/29/19 Type of Consult NEPHROLOGY Requesting Provider: LILLIAN ZHANG MD Date/Time of Note DATE: 04/09/19 TIME: 10:11 Exam/Review of Systems Exam Vitals Vital Signs Date Temp Pulse Resp B/P (MAP) Pulse Ox O2 O2 Flow FiO2 Time Delivery Rate 04/09/19 67 08:00 04/09/19 18 100/64 100 Mechanical 05:45 (76) Ventilator 04/09/19 40 05:01 04/09/19 98.1 04:00 04/07/19 15.0 23:37 Intake and Output 04/08/19 04/08/19 04/09/19 1515:00 23:00 07:00 IntakeIntake Total 584.320 ml 617.269 ml 482.216 ml OutputOutput Total 3110 ml 10 ml BalanceBalance -2525.680 ml 607.269 ml 482.216 ml Exam Constitutional: intubated on ventilator , ET tube in place Respiratory: crackles/rales, diminished breath sounds Cardiovascular: regular rate and rhythm, nl pulses Gastrointestinal: soft, non-tender Musculoskeletal: swelling (1-2+pitting edema ) Extremities: normal pulses Neurological: Non focal Results Result Diagram: 04/09/19 0500 04/09/19 0435 Results 24hrs Laboratory Tests Test 04/08/19 12:15 04/08/19 17:05 04/08/19 17:54 04/09/19 04:35 Bedside Glucose 151 173 Prothrombin Time 14.3 Prothrombin Time 1.1 Ratio INR International 1.10 Normalized Ratio Sodium Level 143 Potassium Level 3.5 Chloride Level 111 H Carbon Dioxide 25 Level Anion Gap 7 Blood Urea 24 #H Nitrogen Creatinine 4.33 #H Glucose Level 131 # Calcium Level 7.8 L Phosphorus Level 2.4 L Magnesium Level 2.0 Albumin 2.5 L Test 04/09/19 05:00 04/09/19 06:02 04/09/19 07:00 White Blood Count 13.7 H Red Blood Count 2.26 #L Hemoglobin 7.0 L Hematocrit 22.1 L Mean Corpuscular 97.8 Volume Mean Corpuscular 31.0 Hemoglobin Mean Corpuscular 31.7 L Hemoglobin Concent Red Cell 17.8 H Distribution Width Platelet Count 192 # Mean Platelet 10.5 H Volume Immature 0.300 Granulocytes % Neutrophils % Segmented 64 Neutrophils % (Manual) Band Neutrophils % 25 H (Manual) Lymphocytes % Lymphocytes % 5 L (Manual) Monocytes % Monocytes % 2 (Manual) Eosinophils % Eosinophils % 4 (Manual) Basophils % Nucleated Red 0.0 Blood Cells % Immature 0.040 H Granulocytes # Neutrophils # Neutrophils # 9.2 H (Manual) Band Neutrophils # 3.4 H Lymphocytes 0.6 L (Manual) Lymphocytes # Monocytes # Monocytes # 0.2 L (Manual) Eosinophils # Basophils # Nucleated Red Blood Cells # Platelet Estimate NORMAL Polychromasia 3+ Poikilocytosis 3+ Anisocytosis 1+ Macrocytosis 1+ Tear Drop Cells 1+ Bedside Glucose 145 Blood Gas Specimen Blood arterial Source Arterial Blood 04/09/2019 7:15:53 Date Drawn AM Arterial Blood pH 7.496 H (Temp corrected) Arterial Blood 32.6 L pCO2 (Temp correct) Arterial Blood pO2 68.9 L (Temp corrected) Arterial Blood 24.6 HCO3 Arterial Blood 1.4 Base Excess Arterial Blood 94.1 L Oxygen Saturation Santino Test ACCEPTAB Arterial Blood Gas Right Radial Puncture Site Arterial 0.6 Blood Carboxyhemog lobin Arterial Blood 0.3 Methemoglobin Blood Gas A-a O2 178.8 H Differential Oxyhemoglobin 93.3 Percent Blood Gas 37.0 Temperature Blood Gas 18.0 Respiration Rate Blood Gas Actual 18 Respiration Rate Blood Gas Modality VENT - AC FiO2 40.0 Blood Gas Tidal 500.0 Volume Blood Gas Low PEEP 5.0 Setting Blood Gas Notified TM Whom Blood Gas Notified 04/09/2019 7:48:29 Time AM Medications Medication Current Medications IV Flush (NS 3 ml) 3 ml PER PROTOCOL IV ; Start 03/29/19 at 13:30 Ondansetron HCl (Zofran Inj) 4 mg Q6H PRN IV NAUSEA/VOMITING Last administered on 04/07/19at 18:53; Admin Dose 4 MG; Start 03/29/19 at 13:30 Acetaminophen (Tylenol Tab) 650 mg Q6H PRN PO .PAIN 1-3 OR TEMP Last administered on 03/31/19at 05:48; Admin Dose 650 MG; Start 03/29/19 at 13:30 Hydralazine HCl (Apresoline) 10 mg Q4H PRN IV sbp >160 Last administered on 04/02/19at 15:15; Admin Dose 10 MG; Start 03/29/19 at 14:00 Miscellaneous Information 1 ea NOTE XX ; Start 03/29/19 at 14:30 Glucose (Glutose) 15 gm Q15M PRN PO DECREASED GLUCOSE; Start 03/29/19 at 14:30 Glucose (Glutose) 22.5 gm Q15M PRN PO DECREASED GLUCOSE; Start 03/29/19 at 14:30 Dextrose (D50w Syringe) 25 ml Q15M PRN IV DECREASED GLUCOSE; Start 03/29/19 at 14:30 Dextrose (D50w Syringe) 50 ml Q15M PRN IV DECREASED GLUCOSE; Start 03/29/19 at 14:30 Glucagon (Glucagen) 1 mg Q15M PRN IM DECREASED GLUCOSE; Start 03/29/19 at 14:30 Glucose (Glutose) 15 gm Q15M PRN BUCCAL DECREASED GLUCOSE; Start 03/29/19 at 14:30 Albumin Human 100 ml @ 100 mls/hr WITH DIALYSIS PRN IV SBP <90 DURING DIALYSIS Last administered on 04/03/19 21:18; Admin Dose 100 MLS/HR; Start 03/29/19 at 17:00 Albuterol/ Ipratropium (Duoneb) 3 ml Q2H RESP THERAPY PRN HHN WHEEZING AND RESP DISTRESS Last administered on 04/09/19 08:52; Admin Dose 3 ML; Start 03/29/19 at 18:00 Lorazepam (Ativan) 0.5 mg Q4H PRN IV AGITATION Last administered on 04/02/19 03:55; Admin Dose 0.5 MG; Start 03/29/19 at 18:00 IV Flush (NS 10 ml) 10 ml Q8 PRN IV IV PROTOCOL; Start 03/29/19 at 18:00 Labetalol HCl (Labetalol) 10 mg Q4H PRN IV sbp >160; Start 03/30/19 at 09:00 Haloperidol (Haldol) 5 mg Q6H PRN IM agitation Last administered on 03/31/19 00:10; Admin Dose 5 MG; Start 03/30/19 at 10:00 Heparin Sodium (Porcine) (Heparin (1000 Units/ml)) 3,200 unit AFTER DIALYSIS CATHETER Last administered on 04/08/19 11:16; Admin Dose 3,200 UNIT; Start 03/30/19 at 17:00 Atorvastatin Calcium (Lipitor) 40 mg HS NGT Last administered on 04/06/19 21:48; Admin Dose 40 MG; Start 03/31/19 at 21:00 Baclofen (Lioresal) 10 mg BID GTB Last administered on 04/07/19 08:23; Admin Dose 10 MG; Start 03/31/19 at 21:00 Doxazosin Mesylate (Cardura) 2 mg DAILY NGT Last administered on 04/07/19 08:24; Admin Dose 2 MG; Start 03/31/19 at 14:30 Gabapentin (Neurontin) 100 mg QHS PO Last administered on 04/06/19 21:48; Admin Dose 100 MG; Start 03/31/19 at 21:00 Losartan Potassium (Cozaar) 100 mg DAILY NGT Last administered on 04/07/19 08:23; Admin Dose 100 MG; Start 03/31/19 at 14:30 Sertraline HCl (Zoloft) 25 mg HS NGT Last administered on 04/06/19 21:49; Admin Dose 25 MG; Start 03/31/19 at 21:00 Acetaminophen (Tylenol Liquid) 650 mg Q4H PRN PEG MILD PAIN(1-3)OR ELEVATED TEMP Last administered on 03/31/19 16:31; Admin Dose 650 MG; Start 03/31/19 at 16:00 Insulin Aspart (Novolog Insulin Pen) NOVOLOG *MILD* ALGORI... Q6 SC Last administered on 04/09/19 06:04; Admin Dose 1 UNIT; Start 04/02/19 at 12:00 Lactobacillus Acidophilus/ Rhamnosus (Culturelle) 1 cap TID GTB Last administered on 04/07/19 12:14; Admin Dose 1 CAP; Start 04/02/19 at 13:00 Carvedilol (Coreg) 25 mg BID NGT Last administered on 04/07/19 08:23; Admin Dose 25 MG; Start 04/02/19 at 21:00 Hydralazine HCl (Apresoline) 75 mg TID NGT Last administered on 04/07/19 12:26; Admin Dose 75 MG; Start 04/02/19 at 21:00 Epoetin [place]-epbx (Retacrit (Esrd)) 10,000 unit MoWeFr@1700 SC Last administered on 04/08/19 17:53; Admin Dose 10,000 UNIT; Start 04/03/19 at 19:30 Lansoprazole (Prevacid) 30 mg BID@0600,1800 GTB Last administered on 04/07/19 17:04; Admin Dose 30 MG; Start 04/04/19 at 18:00 Multivit/Ca Carb/ B Cmplx/FA/Prenat (Karena-Geovanni) 1 tab DAILY GTB Last administered on 04/07/19 08:22; Admin Dose 1 TAB; Start 04/04/19 at 11:30 Albuterol (Proventil 0.083% (Neb)) 2.5 mg Q6HWA RESP THERAPY HHN Last administered on 04/08/19 19:45; Admin Dose 2.5 MG; Start 04/04/19 at 14:00 Aspirin (Aspirin) 81 mg DAILY PO Last administered on 04/07/19 08:23; Admin Dose 81 MG; Start 04/05/19 at 09:00 Clopidogrel Bisulfate (plaVIX) 75 mg DAILY GTB Last administered on 04/07/19 08:23; Admin Dose 75 MG; Start 04/07/19 at 09:00 Quetiapine Fumarate (Seroquel) 50 mg BID GTB ; Start 04/07/19 at 09:00 Propofol 100 ml @ 2.097 mls/ hr Q12H PRN IV AGITATION Last administered on 04/08/19at 11:39; Admin Dose 6.291 MLS/HR; Start 04/08/19 at 00:00 Fentanyl 100 ml @ 2.5 mls/hr TITRATE IV Last administered on 04/08/19 09:51; Admin Dose 2.5 MLS/HR; Start 04/08/19 at 00:00 Midazolam HCl 50 ml @ 1 mls/hr TITRATE PRN IV agitation Last administered on 04/08/19at 22:04; Admin Dose 3 MLS/HR; Start 04/08/19 at 00:00 Norepinephrine 250 ml @ 1.875 mls/ hr TITRATE IV Last administered on 04/08/19at 22:04; Admin Dose 7.5 MLS/HR; Start 04/08/19 at 00:00 Vancomycin HCl (Vanco Iv Per Pharmacy) VANCOMYCIN PER PHARMACY PER PROTOCOL XX ; Start 04/08/19 at 00:30 Miscellaneous Information (*Rx Drug Level Order Reminder*) VANCO RANDOM ONCE ONCE XX ; Start 04/10/19 at 05:00; Stop 04/10/19 at 05:01 Levetiracetam 100 ml @ 400 mls/hr Q12 IVPB Last administered on 04/09/19at 08:45; Admin Dose 400 MLS/HR; Start 04/08/19 at 09:30 Nicardipine HCl 50 mg/Sodium Chloride 500 ml @ 50 mls/hr TITRATE IV ; Start 04/08/19 at 09:30 Sodium Chloride 1,000 ml @ 40 mls/hr Q24H IV Last administered on 04/08/19at 11:33; Admin Dose 40 MLS/HR; Start 04/08/19 at 10:30 Piperacillin Sod/ Tazobactam Sod 50 ml @ 100 mls/hr Q8H IVPB Last administered on 04/09/19at 05:58; Admin Dose 100 MLS/HR; Start 04/08/19 at 21:00 BETZAIDA YAÑEZ MD Apr 09, 2019 10:11
--- NOTE | 2019-04-09 11:13 | CONS ---
Consult Date/Type/Reason Admit Date/Time Mar 29, 2019 at 13:16 Initial Consult Date 04/07/19 Type of Consult Pulmonary Requesting Provider: LILLIAN ZHANG MD Date/Time of Note DATE: 04/09/19 TIME: 11:07 Subjective Patient appears stable on mechanical ventilation. Off pressors. Objective Vital Signs Date Temp Pulse Resp B/P (MAP) Pulse Ox O2 O2 Flow FiO2 Time Delivery Rate 04/09/19 67 08:00 04/09/19 18 100/64 100 Mechanical 05:45 (76) Ventilator 04/09/19 40 05:01 04/09/19 98.1 04:00 04/07/19 15.0 23:37 Intake and Output 04/08/19 04/08/19 04/09/19 1515:00 23:00 07:00 IntakeIntake Total 584.320 ml 617.269 ml 482.216 ml OutputOutput Total 3110 ml 10 ml BalanceBalance -2525.680 ml 607.269 ml 482.216 ml Exam PHYSICAL EXAMINATION: GENERAL: Well-nourished, well-developed gentleman, orally intubated on mechanical ventilation. VITAL SIGNS: NECK: Supple. No JVD or lymphadenopathy. CARDIAC: S1, S2, no added sounds or murmurs. CHEST: Diminished air entry bilaterally. ABDOMEN: Soft, nontender. No guarding or rebound. EXTREMITIES: No cyanosis, clubbing or edema. NEUROLOGIC: Grossly intact. No focal deficits. Vent Setting Ventilator Support Mode: AC Fraction of Inspired Oxygen pe: 40 Positive End Expiratory Pressu: 5.0 Results/Medications Result Diagram: 04/09/19 1017 04/09/19 0435 Results 24 hrs Laboratory Tests Test 04/08/19 12:15 04/08/19 17:05 04/08/19 17:54 04/09/19 04:35 Bedside Glucose 151 173 Prothrombin Time 14.3 Prothrombin Time 1.1 Ratio INR International 1.10 Normalized Ratio Sodium Level 143 Potassium Level 3.5 Chloride Level 111 H Carbon Dioxide 25 Level Anion Gap 7 Blood Urea 24 #H Nitrogen Creatinine 4.33 #H Glucose Level 131 # Calcium Level 7.8 L Phosphorus Level 2.4 L Magnesium Level 2.0 Albumin 2.5 L Test 04/09/19 05:00 04/09/19 06:02 04/09/19 07:00 04/09/19 10:17 White Blood Count 13.7 H Red Blood Count 2.26 #L Hemoglobin 7.0 L 7.6 L Hematocrit 22.1 L 24.1 L Mean Corpuscular 97.8 Volume Mean Corpuscular 31.0 Hemoglobin Mean Corpuscular 31.7 L Hemoglobin Concent Red Cell 17.8 H Distribution Width Platelet Count 192 # Mean Platelet 10.5 H Volume Immature 0.300 Granulocytes % Neutrophils % Segmented 64 Neutrophils % (Manual) Band Neutrophils % 25 H (Manual) Lymphocytes % Lymphocytes % 5 L (Manual) Monocytes % Monocytes % 2 (Manual) Eosinophils % Eosinophils % 4 (Manual) Basophils % Nucleated Red 0.0 Blood Cells % Immature 0.040 H Granulocytes # Neutrophils # Neutrophils # 9.2 H (Manual) Band Neutrophils # 3.4 H Lymphocytes 0.6 L (Manual) Lymphocytes # Monocytes # Monocytes # 0.2 L (Manual) Eosinophils # Basophils # Nucleated Red Blood Cells # Platelet Estimate NORMAL Polychromasia 3+ Poikilocytosis 3+ Anisocytosis 1+ Macrocytosis 1+ Tear Drop Cells 1+ Bedside Glucose 145 Blood Gas Specimen Blood arterial Source Arterial Blood 04/09/2019 7:15:53 Date Drawn AM Arterial Blood pH 7.496 H (Temp corrected) Arterial Blood 32.6 L pCO2 (Temp correct) Arterial Blood pO2 68.9 L (Temp corrected) Arterial Blood 24.6 HCO3 Arterial Blood 1.4 Base Excess Arterial Blood 94.1 L Oxygen Saturation Santino Test ACCEPTAB Arterial Blood Gas Right Radial Puncture Site Arterial 0.6 Blood Carboxyhemog lobin Arterial Blood 0.3 Methemoglobin Blood Gas A-a O2 178.8 H Differential Oxyhemoglobin 93.3 Percent Blood Gas 37.0 Temperature Blood Gas 18.0 Respiration Rate Blood Gas Actual 18 Respiration Rate Blood Gas Modality VENT - AC FiO2 40.0 Blood Gas Tidal 500.0 Volume Blood Gas Low PEEP 5.0 Setting Blood Gas Notified TM Whom Blood Gas Notified 04/09/2019 7:48:29 Time AM Medications Current Medications IV Flush (NS 3 ml) 3 ml PER PROTOCOL IV ; Start 03/29/19 at 13:30 Ondansetron HCl (Zofran Inj) 4 mg Q6H PRN IV NAUSEA/VOMITING Last administered on 04/07/19at 18:53; Admin Dose 4 MG; Start 03/29/19 at 13:30 Acetaminophen (Tylenol Tab) 650 mg Q6H PRN PO .PAIN 1-3 OR TEMP Last administered on 03/31/19at 05:48; Admin Dose 650 MG; Start 03/29/19 at 13:30 Hydralazine HCl (Apresoline) 10 mg Q4H PRN IV sbp >160 Last administered on 04/02/19at 15:15; Admin Dose 10 MG; Start 03/29/19 at 14:00 Miscellaneous Information 1 ea NOTE XX ; Start 03/29/19 at 14:30 Glucose (Glutose) 15 gm Q15M PRN PO DECREASED GLUCOSE; Start 03/29/19 at 14:30 Glucose (Glutose) 22.5 gm Q15M PRN PO DECREASED GLUCOSE; Start 03/29/19 at 14:30 Dextrose (D50w Syringe) 25 ml Q15M PRN IV DECREASED GLUCOSE; Start 03/29/19 at 14:30 Dextrose (D50w Syringe) 50 ml Q15M PRN IV DECREASED GLUCOSE; Start 03/29/19 at 14:30 Glucagon (Glucagen) 1 mg Q15M PRN IM DECREASED GLUCOSE; Start 03/29/19 at 14:30 Glucose (Glutose) 15 gm Q15M PRN BUCCAL DECREASED GLUCOSE; Start 03/29/19 at 14:30 Albumin Human 100 ml @ 100 mls/hr WITH DIALYSIS PRN IV SBP <90 DURING DIALYSIS Last administered on 04/03/19at 21:18; Admin Dose 100 MLS/HR; Start 03/29/19 at 17:00 Albuterol/ Ipratropium (Duoneb) 3 ml Q2H RESP THERAPY PRN HHN WHEEZING AND RESP DISTRESS Last administered on 04/09/19at 08:52; Admin Dose 3 ML; Start 03/29/19 at 18:00 Lorazepam (Ativan) 0.5 mg Q4H PRN IV AGITATION Last administered on 04/02/19at 03:55; Admin Dose 0.5 MG; Start 03/29/19 at 18:00 IV Flush (NS 10 ml) 10 ml Q8 PRN IV IV PROTOCOL; Start 03/29/19 at 18:00 Labetalol HCl (Labetalol) 10 mg Q4H PRN IV sbp >160; Start 03/30/19 at 09:00 Haloperidol (Haldol) 5 mg Q6H PRN IM agitation Last administered on 03/31/19 00:10; Admin Dose 5 MG; Start 03/30/19 at 10:00 Heparin Sodium (Porcine) (Heparin (1000 Units/ml)) 3,200 unit AFTER DIALYSIS CATHETER Last administered on 04/08/19 11:16; Admin Dose 3,200 UNIT; Start 03/30/19 at 17:00 Atorvastatin Calcium (Lipitor) 40 mg HS NGT Last administered on 04/06/19 21:48; Admin Dose 40 MG; Start 03/31/19 at 21:00 Baclofen (Lioresal) 10 mg BID GTB Last administered on 04/07/19 08:23; Admin Dose 10 MG; Start 03/31/19 at 21:00 Doxazosin Mesylate (Cardura) 2 mg DAILY NGT Last administered on 04/07/19 08:24; Admin Dose 2 MG; Start 03/31/19 at 14:30 Gabapentin (Neurontin) 100 mg QHS PO Last administered on 04/06/19 21:48; Admin Dose 100 MG; Start 03/31/19 at 21:00 Losartan Potassium (Cozaar) 100 mg DAILY NGT Last administered on 04/07/19 08:23; Admin Dose 100 MG; Start 03/31/19 at 14:30 Sertraline HCl (Zoloft) 25 mg HS NGT Last administered on 04/06/19 21:49; Admin Dose 25 MG; Start 03/31/19 at 21:00 Acetaminophen (Tylenol Liquid) 650 mg Q4H PRN PEG MILD PAIN(1-3)OR ELEVATED TEMP Last administered on 03/31/19 16:31; Admin Dose 650 MG; Start 03/31/19 at 16:00 Insulin Aspart (Novolog Insulin Pen) NOVOLOG *MILD* ALGORI... Q6 SC Last administered on 04/09/19 06:04; Admin Dose 1 UNIT; Start 04/02/19 at 12:00 Lactobacillus Acidophilus/ Rhamnosus (Culturelle) 1 cap TID GTB Last administered on 04/07/19 12:14; Admin Dose 1 CAP; Start 04/02/19 at 13:00 Carvedilol (Coreg) 25 mg BID NGT Last administered on 04/07/19 08:23; Admin Dose 25 MG; Start 04/02/19 at 21:00 Hydralazine HCl (Apresoline) 75 mg TID NGT Last administered on 04/07/19 12 :26; Admin Dose 75 MG; Start 04/02/19 at 21:00 Epoetin [place]-epbx (Retacrit (Esrd)) 10,000 unit MoWeFr@1700 SC Last administered on 04/08/19 17:53; Admin Dose 10,000 UNIT; Start 04/03/19 at 19:30 Lansoprazole (Prevacid) 30 mg BID@0600,1800 GTB Last administered on 04/07/19 17:04; Admin Dose 30 MG; Start 04/04/19 at 18:00 Multivit/Ca Carb/ B Cmplx/FA/Prenat (Karena-Geovanni) 1 tab DAILY GTB Last admin istered on 04/07/19 08:22; Admin Dose 1 TAB; Start 04/04/19 at 11:30 Albuterol (Proventil 0.083% (Neb)) 2.5 mg Q6HWA RESP THERAPY HHN Last administered on 04/08/19 19:45; Admin Dose 2.5 MG; Start 04/04/19 at 14:00 Aspirin (Aspirin) 81 mg DAILY PO Last administered on 04/07/19 08:23; Admin Dose 81 MG; Start 04/05/19 at 09:00 Clopidogrel Bisulfate (plaVIX) 75 mg DAILY GTB Last administered on 04/07/19 08:23; Admin Dose 75 MG; Start 04/07/19 at 09:00 Quetiapine Fumarate (Seroquel) 50 mg BID GTB ; Start 04/07/19 at 09:00 Propofol 100 ml @ 2.097 mls/ hr Q12H PRN IV AGITATION Last administered on 04/08/19 11:39; Admin Dose 6.291 MLS/HR; Start 04/08/19 at 00:00 Fentanyl 100 ml @ 2.5 mls/hr TITRATE IV Last administered on 04/08/19 09:51; Admin Dose 2.5 MLS/HR; Start 04/08/19 at 00:00 Midazolam HCl 50 ml @ 1 mls/hr TITRATE PRN IV agitation Last administered on 7/1/19at 22:04; Admin Dose 3 MLS/HR; Start 04/08/19 at 00:00 Norepinephrine 250 ml @ 1.875 mls/ hr TITRATE IV Last administered on 04/08/19at 22:04; Admin Dose 7.5 MLS/HR; Start 04/08/19 at 00:00 Vancomycin HCl (Vanco Iv Per Pharmacy) VANCOMYCIN PER PHARMACY PER PROTOCOL XX ; Start 04/08/19 at 00:30 Miscellaneous Information (*Rx Drug Level Order Reminder*) VANCO RANDOM ONCE ONCE XX ; Start 04/10/19 at 05:00; Stop 04/10/19 at 05:01 Levetiracetam 100 ml @ 400 mls/hr Q12 IVPB Last administered on 04/09/19at 08:45; Admin Dose 400 MLS/HR; Start 04/08/19 at 09:30 Nicardipine HCl 50 mg/Sodium Chloride 500 ml @ 50 mls/hr TITRATE IV ; Start 04/08/19 at 09:30 Sodium Chloride 1,000 ml @ 40 mls/hr Q24H IV Last administered on 04/08/19at 11:33; Admin Dose 40 MLS/HR; Start 04/08/19 at 10:30 Piperacillin Sod/ Tazobactam Sod 50 ml @ 100 mls/hr Q8H IVPB Last administered on 04/09/19at 05:58; Admin Dose 100 MLS/HR; Start 04/08/19 at 21:00 Assessment/Plan Hospital Course (Demo Recall) Assessment 1. septic shock 2. Chronic renal insufficiency 3. Anemia likely of chronic disease 4. Encephalopathy toxic metabolic PLAN: 1. Continue vasopressor support. 2. Broad-spectrum antibiotics. 3. Hemodialysis as tolerated. 4. Anti-seizure medications. 5. DVT and GI prophylaxis. 6. Pringle culture. 7. DVT and GI prophylaxis. Critical care time 40 minutes. SAMMI MOSES MD, [facility] Apr 09, 2019 11:13
[2019-04-09] MEDS ORDERED: IOHEXOL 300MG/ML 30 ML BTL ONE (11:20)
--- NOTE | 2019-04-09 11:23 | PN ---
Date/Time of Note Date/Time of Note DATE: 04/09/19 TIME: 11:12 Assessment/Plan VTE Prophylaxis Risk score (from Ns)>0 risk: 9 SCD applied (from Ns): No SCD contraindicated: other (scds) Pharmacological prophylaxis: other (scds) Lines/Catheters IV Catheter Type (from [facility]): Permacath Urinary Cath still in place: Yes Reason Cath still needed: other (indicate) (monitor output) Assessment/Plan Hospital Course Assessment: Severe anemia-improved- with an acute drop this am- repeat- 7.5- no overt signs of GI bleed -EGD 04/03/2019 Moderate distal esophagitis. Gastrostomy tube in place. Gastritis -biopsies are negative for H. pylori. Duodenitis. Colonoscopy 04/03/2019 8 sessile polyp in the cecum. Snared and retrieved. -Tubular adenoma 6 mm sessile polyp ascending colon. Snared and retrieved. -Tubular adenoma 6 mm sessile polyp sigmoid. Snared and retrieved. -Tubular adenoma 20 mm sessile polyp sigmoid. Saline assisted lipectomy plus localization tattoo. Moderate-sized internal hemorrhoids. 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 -Replaced with 18 [place] gastrostomy tube Coronary artery disease status post CABG history Epilepsy BPH Query aspiration PNA Plan: Repeat KUB with Gastrografin via g-tube to verify placement - KUB not completed yesterday with Gastrografin Monitor labs Decrease in hgb- no overt signs of GI bleed. Patient seen in collaboration with Dr. Sanders Subjective: Course reviewed with nursing staff Patient interviewed and examined All labs, imaging and other results reviewed No over night events, now off pressors plan to change sedation in near future Pt currently afebrile, increase WBC PHYSICAL EXAMINATION: GENERAL: Well developed, well nourished, intubated SKIN: No lesions, g-tube in place NECK: Supple, no masses, thyroid normal CHEST: Inspection within normal limits. CARDIOVASCULAR: Heart: Regular rate and rhythm RESPIRATORY: Lungs clear to auscultation. GASTROINTESTINAL AND LIVER: Abdomen: Soft, non tenderness, G-tube in place, non- distended, no hernias, no masses, no organomegaly, no ascites, no guarding, no rebound tenderness, normoactive bowel sounds. Rectal: Deferred. GENITOURINARY: [Male genitalia within normal limits. EXTREMITIES: No cyanosis, clubbing or edema. Result Diagram: 04/09/19 1017 04/09/19 0435 Results 24hrs Laboratory Tests Test 04/08/19 12:15 04/08/19 17:05 04/08/19 17:54 04/09/19 04:35 Bedside Glucose 151 173 Prothrombin Time 14.3 Prothrombin Time 1.1 Ratio INR International 1.10 Normalized Ratio Sodium Level 143 Potassium Level 3.5 Chloride Level 111 H Carbon Dioxide 25 Level Anion Gap 7 Blood Urea 24 #H Nitrogen Creatinine 4.33 #H Glucose Level 131 # Calcium Level 7.8 L Phosphorus Level 2.4 L Magnesium Level 2.0 Albumin 2.5 L Test 04/09/19 05:00 04/09/19 06:02 04/09/19 07:00 04/09/19 10:17 White Blood Count 13.7 H Red Blood Count 2.26 #L Hemoglobin 7.0 L 7.6 L Hematocrit 22.1 L 24.1 L Mean Corpuscular 97.8 Volume Mean Corpuscular 31.0 Hemoglobin Mean Corpuscular 31.7 L Hemoglobin Concent Red Cell 17.8 H Distribution Width Platelet Count 192 # Mean Platelet 10.5 H Volume Immature 0.300 Granulocytes % Neutrophils % Segmented 64 Neutrophils % (Manual) Band Neutrophils % 25 H (Manual) Lymphocytes % Lymphocytes % 5 L (Manual) Monocytes % Monocytes % 2 (Manual) Eosinophils % Eosinophils % 4 (Manual) Basophils % Nucleated Red 0.0 Blood Cells % Immature 0.040 H Granulocytes # Neutrophils # Neutrophils # 9.2 H (Manual) Band Neutrophils # 3.4 H Lymphocytes 0.6 L (Manual) Lymphocytes # Monocytes # Monocytes # 0.2 L (Manual) Eosinophils # Basophils # Nucleated Red Blood Cells # Platelet Estimate NORMAL Polychromasia 3+ Poikilocytosis 3+ Anisocytosis 1+ Macrocytosis 1+ Tear Drop Cells 1+ Bedside Glucose 145 Blood Gas Specimen Blood arterial Source Arterial Blood 04/09/2019 7:15:53 Date Drawn AM Arterial Blood pH 7.496 H (Temp corrected) Arterial Blood 32.6 L pCO2 (Temp correct) Arterial Blood pO2 68.9 L (Temp corrected) Arterial Blood 24.6 HCO3 Arterial Blood 1.4 Base Excess Arterial Blood 94.1 L Oxygen Saturation Santino Test ACCEPTAB Arterial Blood Gas Right Radial Puncture Site Arterial 0.6 Blood Carboxyhemog lobin Arterial Blood 0.3 Methemoglobin Blood Gas A-a O2 178.8 H Differential Oxyhemoglobin 93.3 Percent Blood Gas 37.0 Temperature Blood Gas 18.0 Respiration Rate Blood Gas Actual 18 Respiration Rate Blood Gas Modality VENT - AC FiO2 40.0 Blood Gas Tidal 500.0 Volume Blood Gas Low PEEP 5.0 Setting Blood Gas Notified TM Whom Blood Gas Notified 04/09/2019 7:48:29 Time AM Exam/Review of Systems Exam Vitals Vital Signs Date Temp Pulse Resp B/P (MAP) Pulse Ox O2 O2 Flow FiO2 Time Delivery Rate 04/09/19 67 08:00 04/09/19 18 100/64 100 Mechanical 05:45 (76) Ventilator 04/09/19 40 05:01 04/09/19 98.1 04:00 04/07/19 15.0 23:37 Intake and Output 04/08/19 04/08/19 04/09/19 1414:59 22:59 06:59 IntakeIntake Total 572.792 ml 599.038 ml 454.206 ml OutputOutput Total 3120 ml 10 ml BalanceBalance -2547.208 ml 589.038 ml 454.206 ml Results Results 24hrs Laboratory Tests Test 04/08/19 12:15 04/08/19 17:05 04/08/19 17:54 04/09/19 04:35 Bedside Glucose 151 173 Prothrombin Time 14.3 Prothrombin Time 1.1 Ratio INR International 1.10 Normalized Ratio Sodium Level 143 Potassium Level 3.5 Chloride Level 111 H Carbon Dioxide 25 Level Anion Gap 7 Blood Urea 24 #H Nitrogen Creatinine 4.33 #H Glucose Level 131 # Calcium Level 7.8 L Phosphorus Level 2.4 L Magnesium Level 2.0 Albumin 2.5 L Test 04/09/19 05:00 04/09/19 06:02 04/09/19 07:00 04/09/19 10:17 White Blood Count 13.7 H Red Blood Count 2.26 #L Hemoglobin 7.0 L 7.6 L Hematocrit 22.1 L 24.1 L Mean Corpuscular 97.8 Volume Mean Corpuscular 31.0 Hemoglobin Mean Corpuscular 31.7 L Hemoglobin Concent Red Cell 17.8 H Distribution Width Platelet Count 192 # Mean Platelet 10.5 H Volume Immature 0.300 Granulocytes % Neutrophils % Segmented 64 Neutrophils % (Manual) Band Neutrophils % 25 H (Manual) Lymphocytes % Lymphocytes % 5 L (Manual) Monocytes % Monocytes % 2 (Manual) Eosinophils % Eosinophils % 4 (Manual) Basophils % Nucleated Red 0.0 Blood Cells % Immature 0.040 H Granulocytes # Neutrophils # Neutrophils # 9.2 H (Manual) Band Neutrophils # 3.4 H Lymphocytes 0.6 L (Manual) Lymphocytes # Monocytes # Monocytes # 0.2 L (Manual) Eosinophils # Basophils # Nucleated Red Blood Cells # Platelet Estimate NORMAL Polychromasia 3+ Poikilocytosis 3+ Anisocytosis 1+ Macrocytosis 1+ Tear Drop Cells 1+ Bedside Glucose 145 Blood Gas Specimen Blood arterial Source Arterial Blood 04/09/2019 7:15:53 Date Drawn AM Arterial Blood pH 7.496 H (Temp corrected) Arterial Blood 32.6 L pCO2 (Temp correct) Arterial Blood pO2 68.9 L (Temp corrected) Arterial Blood 24.6 HCO3 Arterial Blood 1.4 Base Excess Arterial Blood 94.1 L Oxygen Saturation Santino Test ACCEPTAB Arterial Blood Gas Right Radial Puncture Site Arterial 0.6 Blood Carboxyhemog lobin Arterial Blood 0.3 Methemoglobin Blood Gas A-a O2 178.8 H Differential Oxyhemoglobin 93.3 Percent Blood Gas 37.0 Temperature Blood Gas 18.0 Respiration Rate Blood Gas Actual 18 Respiration Rate Blood Gas Modality VENT - AC FiO2 40.0 Blood Gas Tidal 500.0 Volume Blood Gas Low PEEP 5.0 Setting Blood Gas Notified TM Whom Blood Gas Notified 04/09/2019 7:48:29 Time AM Medications Medication Current Medications IV Flush (NS 3 ml) 3 ml PER PROTOCOL IV ; Start 03/29/19 at 13:30 Ondansetron HCl (Zofran Inj) 4 mg Q6H PRN IV NAUSEA/VOMITING Last administered on 04/07/19at 18:53; Admin Dose 4 MG; Start 03/29/19 at 13:30 Acetaminophen (Tylenol Tab) 650 mg Q6H PRN PO .PAIN 1-3 OR TEMP Last administered on 03/31/19at 05:48; Admin Dose 650 MG; Start 03/29/19 at 13:30 Hydralazine HCl (Apresoline) 10 mg Q4H PRN IV sbp >160 Last administered on 04/02/19at 15:15; Admin Dose 10 MG; Start 03/29/19 at 14:00 Miscellaneous Information 1 ea NOTE XX ; Start 03/29/19 at 14:30 Glucose (Glutose) 15 gm Q15M PRN PO DECREASED GLUCOSE; Start 03/29/19 at 14:30 Glucose (Glutose) 22.5 gm Q15M PRN PO DECREASED GLUCOSE; Start 03/29/19 at 14:30 Dextrose (D50w Syringe) 25 ml Q15M PRN IV DECREASED GLUCOSE; Start 03/29/19 at 14:30 Dextrose (D50w Syringe) 50 ml Q15M PRN IV DECREASED GLUCOSE; Start 03/29/19 at 14:30 Glucagon (Glucagen) 1 mg Q15M PRN IM DECREASED GLUCOSE; Start 03/29/19 at 14:30 Glucose (Glutose) 15 gm Q15M PRN BUCCAL DECREASED GLUCOSE; Start 03/29/19 at 14:30 Albumin Human 100 ml @ 100 mls/hr WITH DIALYSIS PRN IV SBP <90 DURING DIALYSIS Last administered on 04/03/19at 21:18; Admin Dose 100 MLS/HR; Start 03/29/19 at 17:00 Albuterol/ Ipratropium (Duoneb) 3 ml Q2H RESP THERAPY PRN HHN WHEEZING AND RESP DISTRESS Last administered on 04/09/19at 08:52; Admin Dose 3 ML; Start 03/29/19 at 18:00 Lorazepam (Ativan) 0.5 mg Q4H PRN IV AGITATION Last administered on 04/02/19at 03:55; Admin Dose 0.5 MG; Start 03/29/19 at 18:00 IV Flush (NS 10 ml) 10 ml Q8 PRN IV IV PROTOCOL; Start 03/29/19 at 18:00 Labetalol HCl (Labetalol) 10 mg Q4H PRN IV sbp >160; Start 03/30/19 at 09:00 Haloperidol (Haldol) 5 mg Q6H PRN IM agitation Last administered on 03/31/19at 00:10; Admin Dose 5 MG; Start 03/30/19 at 10:00 Heparin Sodium (Porcine) (Heparin (1000 Units/ml)) 3,200 unit AFTER DIALYSIS CATHETER Last administered on 7/1/19at 11:16; Admin Dose 3,200 UNIT; Start 03/30/19 at 17:00 Atorvastatin Calcium (Lipitor) 40 mg HS NGT Last administered on 04/06/19 21:48; Admin Dose 40 MG; Start 03/31/19 at 21:00 Baclofen (Lioresal) 10 mg BID GTB Last administered on 04/07/19 08:23; Admin Dose 10 MG; Start 03/31/19 at 21:00 Doxazosin Mesylate (Cardura) 2 mg DAILY NGT Last administered on 04/07/19 08:24; Admin Dose 2 MG; Start 03/31/19 at 14:30 Gabapentin (Neurontin) 100 mg QHS PO Last administered on 04/06/19 21:48; Admin Dose 100 MG; Start 03/31/19 at 21:00 Losartan Potassium (Cozaar) 100 mg DAILY NGT Last administered on 04/07/19 08:23; Admin Dose 100 MG; Start 03/31/19 at 14:30 Sertraline HCl (Zoloft) 25 mg HS NGT Last administered on 04/06/19 21:49; Admin Dose 25 MG; Start 03/31/19 at 21:00 Acetaminophen (Tylenol Liquid) 650 mg Q4H PRN PEG MILD PAIN(1-3)OR ELEVATED TEMP Last administered on 03/31/19 16:31; Admin Dose 650 MG; Start 03/31/19 at 16:00 Insulin Aspart (Novolog Insulin Pen) NOVOLOG *MILD* ALGORI... Q6 SC Last administered on 04/09/19 06:04; Admin Dose 1 UNIT; Start 04/02/19 at 12:00 Lactobacillus Acidophilus/ Rhamnosus (Culturelle) 1 cap TID GTB Last administered on 04/07/19 12:14; Admin Dose 1 CAP; Start 04/02/19 at 13:00 Carvedilol (Coreg) 25 mg BID NGT Last administered on 04/07/19 08:23; Admin Dose 25 MG; Start 04/02/19 at 21:00 Hydralazine HCl (Apresoline) 75 mg TID NGT Last administered on 04/07/19 12:26; Admin Dose 75 MG; Start 04/02/19 at 21:00 Epoetin [place]-epbx (Retacrit (Esrd)) 10,000 unit MoWeFr@1700 SC Last administered on 04/08/19 17:53; Admin Dose 10,000 UNIT; Start 04/03/19 at 19:30 Lansoprazole (Prevacid) 30 mg BID@0600,1800 GTB Last administered on 04/07/19 17:04; Admin Dose 30 MG; Start 04/04/19 at 18:00 Multivit/Ca Carb/ B Cmplx/FA/Prenat (Karena-Geovanni) 1 tab DAILY GTB Last administered on 04/07/19 08:22; Admin Dose 1 TAB; Start 04/04/19 at 11:30 Albuterol (Proventil 0.083% (Neb)) 2.5 mg Q6HWA RESP THERAPY HHN Last administered on 04/08/19 19:45; Admin Dose 2.5 MG; Start 04/04/19 at 14:00 Aspirin (Aspirin) 81 mg DAILY PO Last administered on 04/07/19 08:23; Admin Dose 81 MG; Start 04/05/19 at 09:00 Clopidogrel Bisulfate (plaVIX) 75 mg DAILY GTB Last administered on 04/07/19 08:23; Admin Dose 75 MG; Start 04/07/19 at 09:00 Quetiapine Fumarate (Seroquel) 50 mg BID GTB ; Start 04/07/19 at 09:00 Propofol 100 ml @ 2.097 mls/ hr Q12H PRN IV AGITATION Last administered on 04/08/19 11:39; Admin Dose 6.291 MLS/HR; Start 04/08/19 at 00:00 Fentanyl 100 ml @ 2.5 mls/hr TITRATE IV Last administered on 04/08/19 09:51; Admin Dose 2.5 MLS/HR; Start 04/08/19 at 00:00 Midazolam HCl 50 ml @ 1 mls/hr TITRATE PRN IV agitation Last administered on 04/08/19 22:04; Admin Dose 3 MLS/HR; Start 04/08/19 at 00:00 Norepinephrine 250 ml @ 1.875 mls/ hr TITRATE IV Last administered on 04/08/19 22:04; Admin Dose 7.5 MLS/HR; Start 04/08/19 at 00:00 Vancomycin HCl (Vanco Iv Per Pharmacy) VANCOMYCIN PER PHARMACY PER PROTOCOL XX ; Start 04/08/19 at 00:30 Miscellaneous Information (*Rx Drug Level Order Reminder*) VANCO RANDOM ONCE ONCE XX ; Start 04/10/19 at 05:00; Stop 04/10/19 at 05:01 Levetiracetam 100 ml @ 400 mls/hr Q12 IVPB Last administered on 04/09/19at 08:45; Admin Dose 400 MLS/HR; Start 04/08/19 at 09:30 Nicardipine HCl 50 mg/Sodium Chloride 500 ml @ 50 mls/hr TITRATE IV ; Start 04/08/19 at 09:30 Sodium Chloride 1,000 ml @ 40 mls/hr Q24H IV Last administered on 04/08/19at 11:33; Admin Dose 40 MLS/HR; Start 04/08/19 at 10:30 Piperacillin Sod/ Tazobactam Sod 50 ml @ 100 mls/hr Q8H IVPB Last administered on 04/09/19at 05:58; Admin Dose 100 MLS/HR; Start 04/08/19 at 21:00 JUNE LEE Apr 09, 2019 11:22
[2019-04-09] MEDS: DEXMEDETOMIDINE IN DEXTROSE 5% 50 ML IV SCH ×2 (12:00→18:45)
--- NOTE | 2019-04-09 12:51 | CONS ---
Assessment/Plan Assessment/Plan Assessment/Plan (Recall) 58 M c/ reported Hx of stroke, ESRD and other comorbidities, who was initially admitted for evaluation and management of agitation...for which neurology was consulted. The clinical picture was thought consistent w/ delirium in the context of recent and prolonged hospitalization and subsequent transfer to skilled care. He subsequently returned to his mental status baseline.. Head CT was unrevealing. Then on 04/07, the patient developed ams in the context of hypotension and acute respiratory failure, requiring intubation and pressor support.. Heis now thought to have aspiration pneumonia, which could certainly exacerbate a chronic encephalopathy.. A recurrent, acute cerebrovascular process is additionally considered.. Repeat Head CT is stable from prior P: Agree w/ Plavix daily for now, for secondary prevention (LDL is at goal) Continued medical management and supportive care per primary Wean sedating medications as soon as able Will follow clinically Consultation Date/Type/Reason Admit Date/Time Mar 29, 2019 at 13:16 Type of Consult Neurology Reason for Consultation ams Requesting Provider: LILLIAN ZHANG MD Date/Time of Note DATE: 04/09/19 TIME: 12:50 24 HR Interval Summary Free Text/Dictation s/p head CT Exam/Review of Systems Exam Vitals Vital Signs Date Temp Pulse Resp B/P (MAP) Pulse Ox O2 O2 Flow FiO2 Time Delivery Rate 04/09/19 64 18 100 50 11:05 04/09/19 100/64 Mechanical 05:45 (76) Ventilator 04/09/19 98.1 04:00 04/07/19 15.0 23:37 Intake and Output 04/08/19 04/08/19 04/09/19 1515:00 23:00 07:00 IntakeIntake Total 584.320 ml 617.269 ml 482.216 ml OutputOutput Total 3110 ml 10 ml BalanceBalance -2525.680 ml 607.269 ml 482.216 ml Results Result Diagram: 04/09/19 1017 04/09/19 0435 Results 24hrs Laboratory Tests Test 04/08/19 17:05 04/08/19 17:54 04/09/19 04:35 04/09/19 05:00 Prothrombin Time 14.3 Prothrombin Time 1.1 Ratio INR International 1.10 Normalized Ratio Bedside Glucose 173 Sodium Level 143 Potassium Level 3.5 Chloride Level 111 H Carbon Dioxide 25 Level Anion Gap 7 Blood Urea 24 #H Nitrogen Creatinine 4.33 #H Glucose Level 131 # Calcium Level 7.8 L Phosphorus Level 2.4 L Magnesium Level 2.0 Albumin 2.5 L White Blood Count 13.7 H Red Blood Count 2.26 #L Hemoglobin 7.0 L Hematocrit 22.1 L Mean Corpuscular 97.8 Volume Mean Corpuscular 31.0 Hemoglobin Mean Corpuscular 31.7 L Hemoglobin Concent Red Cell 17.8 H Distribution Width Platelet Count 192 # Mean Platelet 10.5 H Volume Immature 0.300 Granulocytes % Neutrophils % Segmented 64 Neutrophils % (Manual) Band Neutrophils % 25 H (Manual) Lymphocytes % Lymphocytes % 5 L (Manual) Monocytes % Monocytes % 2 (Manual) Eosinophils % Eosinophils % 4 (Manual) Basophils % Nucleated Red 0.0 Blood Cells % Immature 0.040 H Granulocytes # Neutrophils # Neutrophils # 9.2 H (Manual) Band Neutrophils # 3.4 H Lymphocytes 0.6 L (Manual) Lymphocytes # Monocytes # Monocytes # 0.2 L (Manual) Eosinophils # Basophils # Nucleated Red Blood Cells # Platelet Estimate NORMAL Polychromasia 3+ Poikilocytosis 3+ Anisocytosis 1+ Macrocytosis 1+ Tear Drop Cells 1+ Test 04/09/19 06:02 04/09/19 07:00 04/09/19 10:17 04/09/19 12:10 Bedside Glucose 145 127 Blood Gas Specimen Blood arterial Source Arterial Blood 04/09/2019 7:15:53 Date Drawn AM Arterial Blood pH 7.496 H (Temp corrected) Arterial Blood 32.6 L pCO2 (Temp correct) Arterial Blood pO2 68.9 L (Temp corrected) Arterial Blood 24.6 HCO3 Arterial Blood 1.4 Base Excess Arterial Blood 94.1 L Oxygen Saturation Santino Test ACCEPTAB Arterial Blood Gas Right Radial Puncture Site Arterial 0.6 Blood Carboxyhemog lobin Arterial Blood 0.3 Methemoglobin Blood Gas A-a O2 178.8 H Differential Oxyhemoglobin 93.3 Percent Blood Gas 37.0 Temperature Blood Gas 18.0 Respiration Rate Blood Gas Actual 18 Respiration Rate Blood Gas Modality VENT - AC FiO2 40.0 Blood Gas Tidal 500.0 Volume Blood Gas Low PEEP 5.0 Setting Blood Gas Notified TM Whom Blood Gas Notified 04/09/2019 7:48:29 Time AM Hemoglobin 7.6 L Hematocrit 24.1 L Medications Medication Current Medications IV Flush (NS 3 ml) 3 ml PER PROTOCOL IV ; Start 03/29/19 at 13:30 Ondansetron HCl (Zofran Inj) 4 mg Q6H PRN IV NAUSEA/VOMITING Last administered on 04/07/19 18:53; Admin Dose 4 MG; Start 03/29/19 at 13:30 Acetaminophen (Tylenol Tab) 650 mg Q6H PRN PO .PAIN 1-3 OR TEMP Last administered on 03/31/19 05:48; Admin Dose 650 MG; Start 03/29/19 at 13:30 Hydralazine HCl (Apresoline) 10 mg Q4H PRN IV sbp >160 Last administered on 03/10 15:15; Admin Dose 10 MG; Start 03/29/19 at 14:00 Miscellaneous Information 1 ea NOTE XX ; Start 03/29/19 at 14:30 Glucose (Glutose) 15 gm Q15M PRN PO DECREASED GLUCOSE; Start 03/29/19 at 14:30 Glucose (Glutose) 22.5 gm Q15M PRN PO DECREASED GLUCOSE; Start 03/29/19 at 14:30 Dextrose (D50w Syringe) 25 ml Q15M PRN IV DECREASED GLUCOSE; Start 03/29/19 at 14:30 Dextrose (D50w Syringe) 50 ml Q15M PRN IV DECREASED GLUCOSE; Start 03/29/19 at 14:30 Glucagon (Glucagen) 1 mg Q15M PRN IM DECREASED GLUCOSE; Start 03/29/19 at 14:30 Glucose (Glutose) 15 gm Q15M PRN BUCCAL DECREASED GLUCOSE; Start 03/29/19 at 14:30 Albumin Human 100 ml @ 100 mls/hr WITH DIALYSIS PRN IV SBP <90 DURING DIALYSIS Last administered on 04/03/19 21:18; Admin Dose 100 MLS/HR; Start 03/29/19 at 17:00 Albuterol/ Ipratropium (Duoneb) 3 ml Q2H RESP THERAPY PRN HHN WHEEZING AND RESP DISTRESS Last administered on 04/09/19 08:52; Admin Dose 3 ML; Start 03/29/19 at 18:00 Lorazepam (Ativan) 0.5 mg Q4H PRN IV AGITATION Last administered on 04/02/19 03:55; Admin Dose 0.5 MG; Start 03/29/19 at 18:00 IV Flush (NS 10 ml) 10 ml Q8 PRN IV IV PROTOCOL; Start 03/29/19 at 18:00 Labetalol HCl (Labetalol) 10 mg Q4H PRN IV sbp >160; Start 03/30/19 at 09:00 Haloperidol (Haldol) 5 mg Q6H PRN IM agitation Last administered on 03/31/19 00:10; Admin Dose 5 MG; Start 03/30/19 at 10:00 Heparin Sodium (Porcine) (Heparin (1000 Units/ml)) 3,200 unit AFTER DIALYSIS CATHETER Last administered on 04/08/19 11:16; Admin Dose 3,200 UNIT; Start 03/30/19 at 17:00 Atorvastatin Calcium (Lipitor) 40 mg HS NGT Last administered on 04/06/19 21:48; Admin Dose 40 MG; Start 03/31/19 at 21:00 Baclofen (Lioresal) 10 mg BID GTB Last administered on 04/07/19 08:23; Admin Dose 10 MG; Start 03/31/19 at 21:00 Doxazosin Mesylate (Cardura) 2 mg DAILY NGT Last administered on 04/07/19 08:24; Admin Dose 2 MG; Start 03/31/19 at 14:30 Gabapentin (Neurontin) 100 mg QHS PO Last administered on 04/06/19 21:48; Admin Dose 100 MG; Start 03/31/19 at 21:00 Losartan Potassium (Cozaar) 100 mg DAILY NGT Last administered on 04/07/19 08:23; Admin Dose 100 MG; Start 03/31/19 at 14:30 Sertraline HCl (Zoloft) 25 mg HS NGT Last administered on 04/06/19 21:49; Admin Dose 25 MG; Start 03/31/19 at 21:00 Acetaminophen (Tylenol Liquid) 650 mg Q4H PRN PEG MILD PAIN(1-3)OR ELEVATED TEMP Last administered on 03/31/19 16:31; Admin Dose 650 MG; Start 03/31/19 at 16:00 Insulin Aspart (Novolog Insulin Pen) NOVOLOG *MILD* ALGORI... Q6 SC Last a dministered on 04/09/19 06:04; Admin Dose 1 UNIT; Start 04/02/19 at 12:00 Lactobacillus Acidophilus/ Rhamnosus (Culturelle) 1 cap TID GTB Last administered on 04/07/19 12:14; Admin Dose 1 CAP; Start 04/02/19 at 13:00 Carvedilol (Coreg) 25 mg BID NGT Last administered on 04/07/19 08:23; Admin Dose 25 MG; Start 04/02/19 at 21:00 Hydralazine HCl (Apresoline) 75 mg TID NGT Last administered on 04/07/19 12:26; Admin Dose 75 MG; Start 04/02/19 at 21:00 Epoetin [place]-epbx (Retacrit (Esrd)) 10,000 unit MoWeFr@1700 SC Last administered on 04/08/19 17:53; Admin Dose 10,000 UNIT; Start 04/03/19 at 19:30 Lansoprazole (Prevacid) 30 mg BID@0600,1800 GTB Last administered on 04/07/19 17:04; Admin Dose 30 MG; Start 04/04/19 at 18:00 Multivit/Ca Carb/ B Cmplx/FA/Prenat (Karena-Geovanni) 1 tab DAILY GTB Last administered on 04/07/19 08:22; Admin Dose 1 TAB; Start 04/04/19 at 11:30 Albuterol (Proventil 0.083% (Neb)) 2.5 mg Q6HWA RESP THERAPY HHN Last administered on 04/08/19 19:45; Admin Dose 2.5 MG; Start 04/04/19 at 14:00 Aspirin (Aspirin) 81 mg DAILY PO Last administered on 04/07/19 08:23; Admin Dose 81 MG; Start 04/05/19 at 09:00 Clopidogrel Bisulfate (plaVIX) 75 mg DAILY GTB Last administered on 04/07/19 08:23; Admin Dose 75 MG; Start 04/07/19 at 09:00 Quetiapine Fumarate (Seroquel) 50 mg BID GTB ; Start 04/07/19 at 09:00 Propofol 100 ml @ 2.097 mls/ hr Q12H PRN IV AGITATION Last administered on 04/08/19 11:39; Admin Dose 6.291 MLS/HR; Start 04/08/19 at 00:00 Fentanyl 100 ml @ 2.5 mls/hr TITRATE IV Last administered on 04/08/19at 09:51; Admin Dose 2.5 MLS/HR; Start 04/08/19 at 00:00 Midazolam HCl 50 ml @ 1 mls/hr TITRATE PRN IV agitation Last administered on 04/08/19at 22:04; Admin Dose 3 MLS/HR; Start 04/08/19 at 00:00 Norepinephrine 250 ml @ 1.875 mls/ hr TITRATE IV Last administered on 04/08/19at 22:04; Admin Dose 7.5 MLS/HR; Start 04/08/19 at 00:00 Vancomycin HCl (Vanco Iv Per Pharmacy) VANCOMYCIN PER PHARMACY PER PROTOCOL XX ; Start 04/08/19 at 00:30 Miscellaneous Information (*Rx Drug Level Order Reminder*) VANCO RANDOM ONCE ONCE XX ; Start 04/10/19 at 05:00; Stop 04/10/19 at 05:01 Levetiracetam 100 ml @ 400 mls/hr Q12 IVPB Last administered on 04/09/19at 08:45; Admin Dose 400 MLS/HR; Start 04/08/19 at 09:30 Nicardipine HCl 50 mg/Sodium Chloride 500 ml @ 50 mls/hr TITRATE IV ; Start 04/08/19 at 09:30 Sodium Chloride 1,000 ml @ 40 mls/hr Q24H IV Last administered on 04/09/19at 11:59; Admin Dose 40 MLS/HR; Start 04/08/19 at 10:30 Piperacillin Sod/ Tazobactam Sod 50 ml @ 100 mls/hr Q8H IVPB Last administered on 04/09/19at 05:58; Admin Dose 100 MLS/HR; Start 04/08/19 at 21:00 GEOVANNI BLANCHARD Apr 09, 2019 12:51
--- NOTE | 2019-04-09 13:31 | CONS ---
Assessment/Plan Assessment/Plan Hospital Course (Demo Recall) Patient is intubated sedated in no distress. Status post temperature of 99.7 yesterday currently afebrile WBC 13.7 H&H 7 and 22.1 platelets 192 bands 25 BUN 24 creatinine 4.33 Microbiology: Blood cultures and urine culture negative MRSA swab came back positive sputum culture growing gram-negative rods Indwelling's: Endotracheal tube right chest permacath, PEG, Winters, PICC line Antimicrobials: Zosyn, vancomycin Physical examination: Well-developed chronically ill-appearing middle-aged man who is intubated sedated in no distress. Head atraumatic normocephalic neck is supple chest rise symmetrical breath sounds diminished bases. Heart: S1-S2. Abdomen soft bowel sounds present. Extremities without cyanosis Assessment: 1. Sepsis 2. Acute respiratory failure possibly aspirated 3. MRSA nares colonization 4. Encephalopathy, possible acute on chronic CVA 5. End-stage renal disease, hemodialysis dependent 6. Dysphagia Plan: Patient is hemodynamically stable, continue antibiotics, await for sputum cultures, follow recommendations of specialists Consultation Date/Type/Reason Admit Date/Time Mar 29, 2019 at 13:16 Initial Consult Date 04/07/19 Type of Consult id Requesting Provider: LILLIAN ZHANG MD Date/Time of Note DATE: 04/09/19 TIME: 13:31 Exam/Review of Systems Exam Vitals Vital Signs Date Temp Pulse Resp B/P (MAP) Pulse Ox O2 O2 Flow FiO2 Time Delivery Rate 04/09/19 63 12:00 04/09/19 18 100 50 11:05 04/09/19 100/64 Mechanical 05:45 (76) Ventilator 04/09/19 98.1 04:00 04/07/19 15.0 23:37 Intake and Output 04/08/19 04/08/19 04/09/19 1515:00 23:00 07:00 IntakeIntake Total 584.320 ml 617.269 ml 482.216 ml OutputOutput Total 3110 ml 10 ml BalanceBalance -2525.680 ml 607.269 ml 482.216 ml Results Result Diagram: 04/09/19 1017 04/09/19 0435 Results 24hrs Laboratory Tests Test 04/08/19 17:05 04/08/19 17:54 04/09/19 04:35 04/09/19 05:00 Prothrombin Time 14.3 Prothrombin Time 1.1 Ratio INR International 1.10 Normalized Ratio Bedside Glucose 173 Sodium Level 143 Potassium Level 3.5 Chloride Level 111 H Carbon Dioxide 25 Level Anion Gap 7 Blood Urea 24 #H Nitrogen Creatinine 4.33 #H Glucose Level 131 # Calcium Level 7.8 L Phosphorus Level 2.4 L Magnesium Level 2.0 Albumin 2.5 L White Blood Count 13.7 H Red Blood Count 2.26 #L Hemoglobin 7.0 L Hematocrit 22.1 L Mean Corpuscular 97.8 Volume Mean Corpuscular 31.0 Hemoglobin Mean Corpuscular 31.7 L Hemoglobin Concent Red Cell 17.8 H Distribution Width Platelet Count 192 # Mean Platelet 10.5 H Volume Immature 0.300 Granulocytes % Neutrophils % Segmented 64 Neutrophils % (Manual) Band Neutrophils % 25 H (Manual) Lymphocytes % Lymphocytes % 5 L (Manual) Monocytes % Monocytes % 2 (Manual) Eosinophils % Eosinophils % 4 (Manual) Basophils % Nucleated Red 0.0 Blood Cells % Immature 0.040 H Granulocytes # Neutrophils # Neutrophils # 9.2 H (Manual) Band Neutrophils # 3.4 H Lymphocytes 0.6 L (Manual) Lymphocytes # Monocytes # Monocytes # 0.2 L (Manual) Eosinophils # Basophils # Nucleated Red Blood Cells # Platelet Estimate NORMAL Polychromasia 3+ Poikilocytosis 3+ Anisocytosis 1+ Macrocytosis 1+ Tear Drop Cells 1+ Test 04/09/19 06:02 04/09/19 07:00 04/09/19 10:17 04/09/19 12:10 Bedside Glucose 145 127 Blood Gas Specimen Blood arterial Source Arterial Blood 04/09/2019 7:15:53 Date Drawn AM Arterial Blood pH 7.496 H (Temp corrected) Arterial Blood 32.6 L pCO2 (Temp correct) Arterial Blood pO2 68.9 L (Temp corrected) Arterial Blood 24.6 HCO3 Arterial Blood 1.4 Base Excess Arterial Blood 94.1 L Oxygen Saturation Santino Test ACCEPTAB Arterial Blood Gas Right Radial Puncture Site Arterial 0.6 Blood Carboxyhemog lobin Arterial Blood 0.3 Methemoglobin Blood Gas A-a O2 178.8 H Differential Oxyhemoglobin 93.3 Percent Blood Gas 37.0 Temperature Blood Gas 18.0 Respiration Rate Blood Gas Actual 18 Respiration Rate Blood Gas Modality VENT - AC FiO2 40.0 Blood Gas Tidal 500.0 Volume Blood Gas Low PEEP 5.0 Setting Blood Gas Notified TM Whom Blood Gas Notified 04/09/2019 7:48:29 Time AM Hemoglobin 7.6 L Hematocrit 24.1 L Medications Medication Current Medications IV Flush (NS 3 ml) 3 ml PER PROTOCOL IV ; Start 03/29/19 at 13:30 Ondansetron HCl (Zofran Inj) 4 mg Q6H PRN IV NAUSEA/VOMITING Last administered on 04/07/19 18:53; Admin Dose 4 MG; Start 03/29/19 at 13:30 Acetaminophen (Tylenol Tab) 650 mg Q6H PRN PO .PAIN 1-3 OR TEMP Last administered on 03/31/19 05:48; Admin Dose 650 MG; Start 03/29/19 at 13:30 Hydralazine HCl (Apresoline) 10 mg Q4H PRN IV sbp >160 Last administered on 04/02/19at 15:15; Admin Dose 10 MG; Start 03/29/19 at 14:00 Miscellaneous Information 1 ea NOTE XX ; Start 03/29/19 at 14:30 Glucose (Glutose) 15 gm Q15M PRN PO DECREASED GLUCOSE; Start 03/29/19 at 14:30 Glucose (Glutose) 22.5 gm Q15M PRN PO DECREASED GLUCOSE; Start 03/29/19 at 14:30 Dextrose (D50w Syringe) 25 ml Q15M PRN IV DECREASED GLUCOSE; Start 03/29/19 at 14:30 Dextrose (D50w Syringe) 50 ml Q15M PRN IV DECREASED GLUCOSE; Start 03/29/19 at 14:30 Glucagon (Glucagen) 1 mg Q15M PRN IM DECREASED GLUCOSE; Start 03/29/19 at 14:30 Glucose (Glutose) 15 gm Q15M PRN BUCCAL DECREASED GLUCOSE; Start 03/29/19 at 14:30 Albumin Human 100 ml @ 100 mls/hr WITH DIALYSIS PRN IV SBP <90 DURING DIALYSIS Last administered on 04/03/19at 21:18; Admin Dose 100 MLS/HR; Start 03/29/19 at 17:00 Albuterol/ Ipratropium (Duoneb) 3 ml Q2H RESP THERAPY PRN HHN WHEEZING AND RESP DISTRESS Last administered on 04/09/19at 08:52; Admin Dose 3 ML; Start 03/29/19 at 18:00 Lorazepam (Ativan) 0.5 mg Q4H PRN IV AGITATION Last administered on 04/02/19 03:55; Admin Dose 0.5 MG; Start 03/29/19 at 18:00 IV Flush (NS 10 ml) 10 ml Q8 PRN IV IV PROTOCOL; Start 03/29/19 at 18:00 Labetalol HCl (Labetalol) 10 mg Q4H PRN IV sbp >160; Start 03/30/19 at 09:00 Haloperidol (Haldol) 5 mg Q6H PRN IM agitation Last administered on 03/31/19 00:10; Admin Dose 5 MG; Start 03/30/19 at 10:00 Heparin Sodium (Porcine) (Heparin (1000 Units/ml)) 3,200 unit AFTER DIALYSIS CATHETER Last administered on 04/08/19 11:16; Admin Dose 3,200 UNIT; Start 03/30/19 at 17:00 Atorvastatin Calcium (Lipitor) 40 mg HS NGT Last administered on 04/06/19 21:48; Admin Dose 40 MG; Start 03/31/19 at 21:00 Baclofen (Lioresal) 10 mg BID GTB Last administered on 04/07/19 08:23; Admin Dose 10 MG; Start 03/31/19 at 21:00 Doxazosin Mesylate (Cardura) 2 mg DAILY NGT Last administered on 04/07/19 08:24; Admin Dose 2 MG; Start 03/31/19 at 14:30 Gabapentin (Neurontin) 100 mg QHS PO Last administered on 04/06/19 21:48; Admin Dose 100 MG; Start 03/31/19 at 21:00 Losartan Potassium (Cozaar) 100 mg DAILY NGT Last administered on 04/07/19 08:23; Admin Dose 100 MG; Start 03/31/19 at 14:30 Sertraline HCl (Zoloft) 25 mg HS NGT Last administered on 04/06/19 21:49; Admin Dose 25 MG; Start 03/31/19 at 21:00 Acetaminophen (Tylenol Liquid) 650 mg Q4H PRN PEG MILD PAIN(1-3)OR ELEVATED TEMP Last administered on 03/31/19 16:31; Admin Dose 650 MG; Start 03/31/19 at 16:00 Insulin Aspart (Novolog Insulin Pen) NOVOLOG *MILD* ALGORI... Q6 SC Last administered on 04/09/19 06:04; Admin Dose 1 UNIT; Start 04/02/19 at 12:00 Lactobacillus Acidophilus/ Rhamnosus (Culturelle) 1 cap TID GTB Last administered on 04/07/19 12:14; Admin Dose 1 CAP; Start 04/02/19 at 13:00 Carvedilol (Coreg) 25 mg BID NGT Last administered on 04/07/19 08:23; Admin Dose 25 MG; Start 04/02/19 at 21:00 Hydralazine HCl (Apresoline) 75 mg TID NGT Last administered on 04/07/19 12:26; Admin Dose 75 MG; Start 04/02/19 at 21:00 Epoetin [place]-epbx (Retacrit (Esrd)) 10,000 unit MoWeFr@1700 SC Last administered on 04/08/19 17:53; Admin Dose 10,000 UNIT; Start 04/03/19 at 19:30 Lansoprazole (Prevacid) 30 mg BID@0600,1800 GTB Last administered on 04/07/19 17:04; Admin Dose 30 MG; Start 04/04/19 at 18:00 Multivit/Ca Carb/ B Cmplx/FA/Prenat (Karena-Geovanni) 1 tab DAILY GTB Last administered on 04/07/19 08:22; Admin Dose 1 TAB; Start 04/04/19 at 11:30 Albuterol (Proventil 0.083% (Neb)) 2.5 mg Q6HWA RESP THERAPY HHN Last administered on 04/09/19 13:16; Admin Dose 2.5 MG; Start 04/04/19 at 14:00 Aspirin (Aspirin) 81 mg DAILY PO Last administered on 04/07/19 08:23; Admin Dose 81 MG; Start 04/05/19 at 09:00 Clopidogrel Bisulfate (plaVIX) 75 mg DAILY GTB Last administered on 04/07/19 08:23; Admin Dose 75 MG; Start 04/07/19 at 09:00 Quetiapine Fumarate (Seroquel) 50 mg BID GTB ; Start 04/07/19 at 09:00 Propofol 100 ml @ 2.097 mls/ hr Q12H PRN IV AGITATION Last administered on 04/08/19at 11:39; Admin Dose 6.291 MLS/HR; Start 04/08/19 at 00:00 Fentanyl 100 ml @ 2.5 mls/hr TITRATE IV Last administered on 04/08/19 09:51; Admin Dose 2.5 MLS/HR; Start 04/08/19 at 00:00 Midazolam HCl 50 ml @ 1 mls/hr TITRATE PRN IV agitation Last administered on 04/08/19 22:04; Admin Dose 3 MLS/HR; Start 04/08/19 at 00:00 Norepinephrine 250 ml @ 1.875 mls/ hr TITRATE IV Last administered on 04/08/19 22:04; Admin Dose 7.5 MLS/HR; Start 04/08/19 at 00:00 Vancomycin HCl (Vanco Iv Per Pharmacy) VANCOMYCIN PER PHARMACY PER PROTOCOL XX ; Start 04/08/19 at 00:30 Miscellaneous Information (*Rx Drug Level Order Reminder*) VANCO RANDOM ONCE ONCE XX ; Start 04/10/19 at 05:00; Stop 04/10/19 at 05:01 Levetiracetam 100 ml @ 400 mls/hr Q12 IVPB Last administered on 04/09/19 08:45; Admin Dose 400 MLS/HR; Start 04/08/19 at 09:30 Nicardipine HCl 50 mg/Sodium Chloride 500 ml @ 50 mls/hr TITRATE IV ; Start 04/08/19 at 09:30 Sodium Chloride 1,000 ml @ 40 mls/hr Q24H IV Last administered on 04/09/19at 11:59; Admin Dose 40 MLS/HR; Start 04/08/19 at 10:30 Piperacillin Sod/ Tazobactam Sod 50 ml @ 100 mls/hr Q8H IVPB Last administered on 04/09/19 13:24; Admin Dose 100 MLS/HR; Start 04/08/19 at 21:00 UMA COLINDRES NP Apr 09, 2019 13:31
--- NOTE | 2019-04-09 15:26 | PN ---
Date/Time of Note Date/Time of Note DATE: 04/09/19 TIME: 15:09 Objective Vitals Vital Signs Date Temp Pulse Resp B/P (MAP) Pulse Ox O2 O2 Flow FiO2 Time Delivery Rate 04/09/19 64 18 130/71 100 13:30 (90) 04/09/19 50 13:16 04/09/19 Mechanical 13:00 Ventilator 04/09/19 97.0 12:00 04/07/19 15.0 23:37 Intake and Output 04/08/19 04/08/19 04/09/19 1515:00 23:00 07:00 IntakeIntake Total 584.320 ml 617.269 ml 482.216 ml OutputOutput Total 3110 ml 10 ml BalanceBalance -2525.680 ml 607.269 ml 482.216 ml Results Result Diagram: 04/09/19 1017 04/09/19 0435 Medications Medications Current Medications IV Flush (NS 3 ml) 3 ml PER PROTOCOL IV ; Start 03/29/19 at 13:30 Ondansetron HCl (Zofran Inj) 4 mg Q6H PRN IV NAUSEA/VOMITING Last administered on 04/07/19at 18:53; Admin Dose 4 MG; Start 03/29/19 at 13:30 Acetaminophen (Tylenol Tab) 650 mg Q6H PRN PO .PAIN 1-3 OR TEMP Last administered on 03/31/19at 05:48; Admin Dose 650 MG; Start 03/29/19 at 13:30 Hydralazine HCl (Apresoline) 10 mg Q4H PRN IV sbp >160 Last administered on 04/02/19at 15:15; Admin Dose 10 MG; Start 03/29/19 at 14:00 Miscellaneous Information 1 ea NOTE XX ; Start 03/29/19 at 14:30 Glucose (Glutose) 15 gm Q15M PRN PO DECREASED GLUCOSE; Start 03/29/19 at 14:30 Glucose (Glutose) 22.5 gm Q15M PRN PO DECREASED GLUCOSE; Start 03/29/19 at 14:30 Dextrose (D50w Syringe) 25 ml Q15M PRN IV DECREASED GLUCOSE; Start 03/29/19 at 14:30 Dextrose (D50w Syringe) 50 ml Q15M PRN IV DECREASED GLUCOSE; Start 03/29/19 at 14:30 Glucagon (Glucagen) 1 mg Q15M PRN IM DECREASED GLUCOSE; Start 03/29/19 at 14:30 Glucose (Glutose) 15 gm Q15M PRN BUCCAL DECREASED GLUCOSE; Start 03/29/19 at 14:30 Albumin Human 100 ml @ 100 mls/hr WITH DIALYSIS PRN IV SBP <90 DURING DIALYSIS Last administered on 04/03/19 21:18; Admin Dose 100 MLS/HR; Start 03/29/19 at 17:00 Albuterol/ Ipratropium (Duoneb) 3 ml Q2H RESP THERAPY PRN HHN WHEEZING AND RESP DISTRESS Last administered on 04/09/19 08:52; Admin Dose 3 ML; Start 03/29/19 at 18:00 Lorazepam (Ativan) 0.5 mg Q4H PRN IV AGITATION Last administered on 04/02/19 03:55; Admin Dose 0.5 MG; Start 03/29/19 at 18:00 IV Flush (NS 10 ml) 10 ml Q8 PRN IV IV PROTOCOL; Start 03/29/19 at 18:00 Labetalol HCl (Labetalol) 10 mg Q4H PRN IV sbp >160; Start 03/30/19 at 09:00 Haloperidol (Haldol) 5 mg Q6H PRN IM agitation Last administered on 03/31/19 00:10; Admin Dose 5 MG; Start 03/30/19 at 10:00 Heparin Sodium (Porcine) (Heparin (1000 Units/ml)) 3,200 unit AFTER DIALYSIS CATHETER Last administered on 04/08/19 11:16; Admin Dose 3,200 UNIT; Start 03/30/19 at 17:00 Atorvastatin Calcium (Lipitor) 40 mg HS NGT Last administered on 04/06/19 21:48; Admin Dose 40 MG; Start 03/31/19 at 21:00 Baclofen (Lioresal) 10 mg BID GTB Last administered on 04/07/19 08:23; Admin Dose 10 MG; Start 03/31/19 at 21:00 Doxazosin Mesylate (Cardura) 2 mg DAILY NGT Last administered on 04/07/19 08:24; Admin Dose 2 MG; Start 03/31/19 at 14:30 Gabapentin (Neurontin) 100 mg QHS PO Last administered on 04/06/19 21:48; Admin Dose 100 MG; Start 03/31/19 at 21:00 Losartan Potassium (Cozaar) 100 mg DAILY NGT Last administered on 04/07/19 08:23; Admin Dose 100 MG; Start 03/31/19 at 14:30 Sertraline HCl (Zoloft) 25 mg HS NGT Last administered on 04/06/19 21:49; Admin Dose 25 MG; Start 03/31/19 at 21:00 Acetaminophen (Tylenol Liquid) 650 mg Q4H PRN PEG MILD PAIN(1-3)OR ELEVATED TEMP Last administered on 03/31/19 16:31; Admin Dose 650 MG; Start 03/31/19 at 16:00 Insulin Aspart (Novolog Insulin Pen) NOVOLOG *MILD* ALGORI... Q6 SC Last administered on 04/09/19 06:04; Admin Dose 1 UNIT; Start 04/02/19 at 12:00 Lactobacillus Acidophilus/ Rhamnosus (Culturelle) 1 cap TID GTB Last administered on 04/07/19 12:14; Admin Dose 1 CAP; Start 04/02/19 at 13:00 Carvedilol (Coreg) 25 mg BID NGT Last administered on 04/07/19 08:23; Admin Dose 25 MG; Start 04/02/19 at 21:00 Hydralazine HCl (Apresoline) 75 mg TID NGT Last administered on 04/07/19 12:26; Admin Dose 75 MG; Start 04/02/19 at 21:00 Epoetin [place]-epbx (Retacrit (Esrd)) 10,000 unit MoWeFr@1700 SC Last administered on 04/08/19 17:53; Admin Dose 10,000 UNIT; Start 04/03/19 at 19:30 Lansoprazole (Prevacid) 30 mg BID@0600,1800 GTB Last administered on 04/07/19 17:04; Admin Dose 30 MG; Start 04/04/19 at 18:00 Multivit/Ca Carb/ B Cmplx/FA/Prenat (Karena-Geovanni) 1 tab DAILY GTB Last administered on 04/07/19 08:22; Admin Dose 1 TAB; Start 04/04/19 at 11:30 Albuterol (Proventil 0.083% (Neb)) 2.5 mg Q6HWA RESP THERAPY HHN Last admi nistered on 04/09/19 13:16; Admin Dose 2.5 MG; Start 04/04/19 at 14:00 Aspirin (Aspirin) 81 mg DAILY PO Last administered on 04/07/19 08:23; Admin Dose 81 MG; Start 04/05/19 at 09:00 Clopidogrel Bisulfate (plaVIX) 75 mg DAILY GTB Last administered on 04/07/19 08:23; Admin Dose 75 MG; Start 04/07/19 at 09:00 Quetiapine Fumarate (Seroquel) 50 mg BID GTB ; Start 04/07/19 at 09:00 Propofol 100 ml @ 2.097 mls/ hr Q12H PRN IV AGITATION Last administered on 04/08/19 11:39; Admin Dose 6.291 MLS/HR; Start 04/08/19 at 00:00 Fentanyl 100 ml @ 2.5 mls/hr TITRATE IV Last administered on 04/08/19 09:51; Admin Dose 2.5 MLS/HR; Start 04/08/19 at 00:00 Midazolam HCl 50 ml @ 1 mls/hr TITRATE PRN IV agitation Last administered on 04/08/19 22:04; Admin Dose 3 MLS/HR; Start 04/08/19 at 00:00 Norepinephrine 250 ml @ 1.875 mls/ hr TITRATE IV Last administered on 04/08/19 22:04; Admin Dose 7.5 MLS/HR; Start 04/08/19 at 00:00 Vancomycin HCl (Vanco Iv Per Pharmacy) VANCOMYCIN PER PHARMACY PER PROTOCOL XX ; Start 04/08/19 at 00:30 Miscellaneous Information (*Rx Drug Level Order Reminder*) VANCO RANDOM ONCE ONCE XX ; Start 04/10/19 at 05:00; Stop 04/10/19 at 05:01 Levetiracetam 100 ml @ 400 mls/hr Q12 IVPB Last administered on 04/09/19 08:45; Admin Dose 400 MLS/HR; Start 04/08/19 at 09:30 Nicardipine HCl 50 mg/Sodium Chloride 500 ml @ 50 mls/hr TITRATE IV ; Start 04/08/19 at 09:30 Sodium Chloride 1,000 ml @ 40 mls/hr Q24H IV Last administered on 04/09/19at 11:59; Admin Dose 40 MLS/HR; Start 04/08/19 at 10:30 Piperacillin Sod/ Tazobactam Sod 50 ml @ 100 mls/hr Q8H IVPB Last administered on 04/09/19at 13:24; Admin Dose 100 MLS/HR; Start 04/08/19 at 21:00 VTE Prophylaxis Risk score (from Ns)>0 risk: 11 SCD applied (from Ns): No SCD contraindication: other Lines/Catheters IV Catheter Type: Linares in Place: Yes Cont'd linares catheter reason: terminal illness/intractable pain Assessment/Plan Hospital Course Subjective Patient off pressors however still extremely agitated, intubated Objective Physical exam General: Patient is laying in bed intubated and sedated Mentation: Patient is not alert, Head: Normocephalic atraumatic Eyes: EOMI, pupils reactive to light Neck: Supple, nontender, midline Respiratory: Clear to auscultation bilaterally Cardiovascular: regular rate, no obvious murmurs Gastrointestinal: non-tender to palpation, bowel sounds heard. Neurological: Unable to assess Skin: No new skin lesions Assessment/Plan Acute hypoxic respiratory failure -Status post intubation, extubate when able -CT abdomen pelvis showing possible pneumonia which would make sense in this encephalopathic patient in the hospital -Broad-spectrum antibiotics -Treatment per pulmonology Septic shock -Secondary to likely pneumonia -Infectious disease consulted -Cultures taken, CT showing possibly distended bladder wall for cystitis however UTI is not necessarily revealing for infection -IV antibiotic Likely aspiration pneumonia -Would explain mild fever yesterday as well as symptoms and [employer]ODING [employer] that led to patient's intubation -IV antibiotic -Infectious disease on board Acute on chronic encephalopathy - still restless and trying to get out of bed. Continue Seroquel as needed - Neurology on board and appreciate recommendations. CT unrevealing -Use as needed medications. Hypertensive emergency-resolved for now - BP better controlled, hypotensive at the moment Severe anemia- resolved - No active bleeding appreciated - EGD revealed moderate distal esophagitis and gastritis and duodenitis. Colonoscopy showed internal hemorrhoids - GI consultation appreciated. Will need repeat colonoscopy in 6 months - continue PPI Leukocytosis- -Possibly secondary to pneumonia, infectious disease on board, continue IV antibiotics Anemia -No signs of GI bleed, discussed with gastroenterology, will monitor for now Dysphasia -PEG tube ok for use per GI End-stage renal disease on hemodialysis - Nephrology on board and appreciate consultation. Continue HD Coronary artery disease status post CABG history - continue home medications - continue aspirin and Plavix Epilepsy - Continue Keppra History of CVA with residual left-sided deficit and more recent CVA 1 month ago - Patient reportedly had a new stroke approximately 1 month ago at [facility] which is the cause of patient's current encephalopathic state - After speaking with daughter, appears this is patient's baseline after leaving [facility] proximally 1 week ago. Patient suffered CVA and subsequent long stay in the ICU which required intubation and PEG tube. Patient almost required tracheostomy however appear to have been able to be weaned off the ventilator. - Neurology consultation appreciated BPH Disposition -Patient intubated in the ICU, likely secondary to septic shock secondary to pneumonia, infectious disease has been consulted, keep in ICU monitor closely -Patient may be difficult to extubate given history of poor extubation More than 40 minutes of critical care time has been spent on this encounter STEWART WINTER Apr 09, 2019 15:26
[2019-04-09] MEDS: MUPIROCIN 2% 22 GM OINT TOP SCH (21:04)
[2019-04-09] MEDS: GABAPENTIN 100 MG CAP PO SCH (21:05)
[2019-04-09] MEDS: ATORVASTATIN 40 MG TAB NGT SCH (21:05)
[2019-04-09] MEDS: SERTRALINE 50 MG TAB NGT SCH (21:06)
[2019-04-09] MEDS: FENTAnyl (DRIP) 1000 mcg/100mL 100 ML IV SCH (21:14)
[2019-04-10] VITALS (65 sets, daily range): BP systolic 87–172; BP diastolic 53–87; PULSE 67–88; RESP 0–26
[2019-04-10] MEDS: INSULIN ASPART [NOVOLOG] 3 ML PEN SC SCH ×4 (00:26→17:29)
[2019-04-10] MEDS: ALBUTEROL HFA 8 GM INHALER INH SCH ×4 (01:54→19:38)
[2019-04-10] MEDS: hydrALAzine 20 MG INJ IV PRN (02:35)
[2019-04-10] MEDS: DEXMEDETOMIDINE IN DEXTROSE 5% 50 ML IV SCH ×3 (02:35→19:17)
[2019-04-10] MEDS: PIPER-TAZO 2.25 GM/NS 50 ML IVPB SCH ×3 (05:29→21:50)
[2019-04-10] MEDS: LANSOPRAZOLE 30 MG CAP GTB SCH ×2 (05:29→17:25)
--- NOTE | 2019-04-10 07:30 | RADRPT ---
Echocardiogram Report Patient Name: YOBANI TAVAREZPatient ID: [id number] : 1960 (58y 4m)Study Date: 04/09/2019 9:33:26 AM Gender: MAccession #: [id number] Tech: Markus Allison [facility] Location: [address] Ref.Physician: SEAN ROUSE Height(Cm): BSA: Weight(Kg): Quality: AdequateOrder Physician: SEAN ROUSE Account #: Procedures: Echocardiographic Report: Transthoracic echocardiogram with complete 2D, M-Mode, and doppler examination. Indications: Cerebrovascular Accident, shock, chf. Measurements: 2D/M Mode Doppler Measurement Value Normal Range Measurement Value Normal Range LVIDd 2D 4.4 [ 4.2 - 5.8 ] cm AV Peak Conrad 1.3 [ 100.0 - 170.0 ] cm/sec LVIDs 2D 3.0 [ 2.5 - 4.0 ] cm AV Peak PG 7.0 [ 2.0 - 9.0 ] mmHg LVPWd 2D 1.2 [ 0.6 - 1.0 ] cm LVOT Peak Conrad 0.9 [ 70.0 - 110.0 ] cm/sec IVSd 2D 1.2 [ 0.6 - 1.0 ] cm LVOT Peak PG 3.0 [ 2.0 - 6.0 ] mmHg AoR Diam 2D 2.8 [ 2.6 - 3.4 ] cm MV E Peak Conrad 1.0 [ 60.0 - 130.0 ] cm/sec EDV 2D 86.3 [ 62.0 - 150.0 ] ml MV A Peak Conrad 1.2 [ 100.0 - 120.0 ] cm/sec ESV 2D 33.9 [ 21.0 - 61.0 ] ml MV E/A 0.8 [ 0.8 - 1.5 ] ratio EF 2D 60.7 [ 52.0 - 72.0 ] percent MV Decel Time 162 [ 104 - 258 ] msec LA Dimen 2D 3.6 [ 3.0 - 4.0 ] cm Lat E` Conrad 0.1 [ 10.0 - 15.0 ] cm/sec Lateral E/E` 12.6 [ 1.0 - 2.0 ] ratio Med E` Conrad 0.1 cm/sec MV E/A 0.8 [ 0.8 - 1.5 ] ratio TR Peak Conrad 2.0 [ 100.0 - 280.0 ] cm/sec TR Peak PG 15.0 mmHg RVSP 25.0 [ 10.0 - 36.0 ] mmHg Findings: Left Ventricle: Normal left ventricular systolic function. Normal left ventricular cavity size. Mild concentric left ventricular hypertrophy. Ejection fraction is visually estimated at 55 %. Tissue Doppler/Mitral Doppler indices are consistent with impaired relaxation (Stage I diastolic dysfunction). Right Ventricle: Normal right ventricular size. Normal right ventricular systolic function. Left Atrium: The left atrium is normal in size. Right Atrium: The right atrium is normal in size. Mitral Valve: Mild mitral leaflet calcification. Mild mitral annular calcification. Mild mitral valve regurgitation. Aortic Valve: No significant aortic stenosis or insufficiency. Aortic cusps appear mildly calcified. Tricuspid Valve: Normal appearance of the tricuspid valve. The estimated Peak RVSP is 25 mmHg. There is trace tricuspid regurgitation. Pericardium: Normal pericardium with no significant pericardial effusion. Aorta: Normal aortic root. IVC: Inferior vena cava without respiratory collapse, however, patient on ventilator. Conclusions: Normal left ventricular systolic function. Normal left ventricular cavity size. Mild concentric left ventricular hypertrophy. Ejection fraction is visually estimated at 55 %. Tissue Doppler/Mitral Doppler indices are consistent with impaired relaxation (Stage I diastolic dysfunction). Mild mitral leaflet calcification. Mild mitral annular calcification. Mild mitral valve regurgitation. No significant aortic stenosis or insufficiency. Aortic cusps appear mildly calcified. Normal appearance of the tricuspid valve. The estimated Peak RVSP is 25 mmHg. There is trace tricuspid regurgitation. Electronically Signed By: Sean Rouse 2019-04-10 07:28:39 PDT
--- NOTE | 2019-04-10 07:57 | CONS ---
Consult Date/Type/Reason Admit Date/Time Mar 29, 2019 at 13:16 Initial Consult Date 04/07/19 Type of Consultation: cv Requesting Provider: LILLIAN ZHANG MD Date/Time of Note DATE: 04/10/19 TIME: 07:54 Subjective Interventional cardiology follow-up progress note Subjective: Discussed with the staff Telemetry was reviewed. pt remains intubated pt is no longer hypotensive and off Levophed drip in the ICU. Patient nonverbal. objective: General: s/p intubation on the ventilator HEENT: NC/AT. pupils are equal. round. NECK:. no stridor. CV: RRR. systolic murmur; no gallop or rubs. PULM: + rhonchi. GI: SOFT, NT, ND, no rebound or guarding s/pPEG Extremity: trace B/L LE edema. no clubbing. neuro: Sedated not responsive Psych: calm the moment rectal: deferred : normal ECHO 04/09/19 REVIEWED Normal left ventricular systolic function. Normal left ventricular cavity size. Mild concentric left ventricular hypertrophy. Ejection fraction is visually estimated at 55 %. Tissue Doppler/Mitral Doppler indices are consistent with impaired relaxation (Stage I diastolic dysfunction). Mild mitral leaflet calcification. Mild mitral annular calcification. Mild mitral valve regurgitation. No significant aortic stenosis or insufficiency. Aortic cusps appear mildly calcified. Normal appearance of the tricuspid valve. The estimated Peak RVSP is 25 mmHg. There is trace tricuspid regurgitation. cxr 04/09/19 Persistent small left greater than right pleural effusions with associated atelectasis/infiltrate. Objective Vitals Vital Signs Date Temp Pulse Resp B/P (MAP) Pulse Ox O2 O2 Flow FiO2 Time Delivery Rate 04/10/19 73 18 143/76 95 Mechanical 06:00 (98) Ventilator 04/10/19 40 05:19 04/10/19 97.8 04:00 04/07/19 15.0 23:37 Intake and Output 04/09/19 04/09/19 04/10/19 1515:00 23:00 07:00 IntakeIntake Total 604.152 ml 421.729 ml 183.8 ml OutputOutput Total 0 ml 15 ml 40 ml BalanceBalance 604.152 ml 406.729 ml 143.8 ml Results/Medications Result Diagram: 04/10/19 0503 04/10/19 0503 Results 24 hrs Laboratory Tests Test 04/09/19 10:17 04/09/19 12:10 04/09/19 18:03 04/10/19 00:23 Hemoglobin 7.6 L Hematocrit 24.1 L Bedside Glucose 127 131 154 Test 04/10/19 05:03 04/10/19 05:32 White Blood Count 12.2 H Red Blood Count 2.56 L Hemoglobin 7.9 L Hematocrit 24.3 L Mean Corpuscular Volume 94.9 Mean Corpuscular 30.9 Hemoglobin Mean Corpuscular 32.5 Hemoglobin Concent Red Cell Distribution 17.3 H Width Platelet Count 183 Mean Platelet Volume 11.0 H Immature Granulocytes % 0.500 H Neutrophils % 86.9 H Lymphocytes % 5.1 L Monocytes % 2.1 Eosinophils % 4.8 Basophils % 0.6 Nucleated Red Blood 0.0 Cells % Immature Granulocytes # 0.060 H Neutrophils # 10.6 H Lymphocytes # 0.6 L Monocytes # 0.3 Eosinophils # 0.6 H Basophils # 0.1 Nucleated Red Blood 0.0 Cells # Sodium Level 144 Potassium Level 4.2 Chloride Level 108 Carbon Dioxide Level 25 Anion Gap 11 Blood Urea Nitrogen 38 #H Creatinine 6.48 #H Glucose Level 154 Calcium Level 9.2 Phosphorus Level 3.8 Magnesium Level 2.3 Albumin 3.0 L Random Vancomycin Level 12.6 Bedside Glucose 162 Home Meds Reported Medications Bisacodyl (Dulcolax) 10 Mg Supp.rect, 10 MG RC DAILY PRN for CONSTIPATION, SUPP.RECT 03/29/19 Sodium Phosphate,[place]-Dibasic (Enema Ready To Use) 133 Ml Enema, 133 ML RC EVERY 2 DAYS PRN for CONSTIPATION, ENEMA 03/29/19 Acetaminophen* (Acetaminophen*) 650 Mg Tablet, 650 MG GTB Q4 PRN for MILD PAIN LEVEL 1-3, #30 TAB AND FEVER 03/29/19 Acetaminophen* (Acetaminophen*) 500 MG Extra Strength Tablet, 1000 MG GTB Q4H PRN for MODERATE PAIN LEVEL 4-6, TAB 03/29/19 Acetaminophen* (Acetaminophen*) 500 MG Extra Strength Tablet, 1000 MG GTB BID PRN for GENERAL BODY PAIN, TAB 03/29/19 Amino Acids/Protein Hydrolys (Pro-Stat Awc Liquid) 30 Ml Liquid, 30 ML GTB DAILY SUGAR FREE 03/29/19 Multivitamin* (Daily Value*) 1 Each Tablet, 1 TAB GTB DAILY, TAB 03/29/19 Ascorbic Acid* (Vitamin C*) 500 Mg Capsule.sa, 500 MG GTB DAILY, CAP 03/29/19 Ferrous Sulfate (Ferrous Sulfate) 300 Mg/5 Ml Liquid, 325 MG GTB DAILY 03/29/19 Cran/Vitc/Mannose/Inulin/Brom (Uti-Stat Liquid) 3,875 Mg/30 Ml Liquid, 3875 MG GTB DAILY 03/29/19 Cranberry Extract (Cranberry) 425 Mg Capsule, 425 MG GTB DAILY, CAP 03/29/19 Insulin Glulisine (Apidra Solostar) 100 Unit/1 Ml Insuln.pen, 4 UNIT SQ TIDM A, #1 TUB 03/29/19 Insulin Glargine,Hum.rec.anlog (Basaglar Kwikpen U-100) 100 Unit/1 Ml Insuln.pen, 25 UNIT SC QHS, EA 03/29/19 Insulin Regular, Human (Humulin R) 100 Unit/1 Ml Vial, 0 IJ AC MEALS AND BEDTIME, VIAL 0-150 = 0 UNIT 151-200 = 1 UNIT 201-250 = 2 UNITS 251-300 = 3 UNITS 301-350 = 4 UNITS 351-400 = 5 UNITS OVER 400 GIVE 6 UNITS UNDER 70 OR OVER 400 NOTIFY 03/29/19 Sertraline Hcl* (Sertraline Hcl*) 25 Mg Tablet, 25 MG GTB DAILY, #30 TAB 03/29/19 Lorazepam* (Ativan*) 0.5 Mg Tablet, 0.5 MG GTB DAILY PRN for ANXIETY, #30 TAB 03/29/19 Quetiapine Fumarate* (Seroquel*) 25 Mg Tablet, 25 MG GTB HS, #30 TAB 03/29/19 Lorazepam* (Lorazepam*) 0.5 Mg Tablet, 0.5 MG GTB DAILY PRN for ANXIETY, TAB 03/29/19 Clonidine Hcl* (Clonidine Hcl*) 0.1 Mg Tab, 0.1 MG GTB DAILY PRN for ELEVATED BLOOD PRESSURE, TAB SBP >160 03/29/19 Azelastine Hcl* (Azelastine Hcl*) 137 Mcg/0.137 Ml Raven.pump, 2 SPRAYS NASAL BID, #1 EA TO EACH NOSTRIL 6/21/19 Carvedilol* (Carvedilol*) 12.5 Mg Tablet, 12.5 MG GTB BID, #60 TAB 03/29/19 Diltiazem Hcl* (Cardizem CD*) 240 Mg Cap.sr.24h, 240 MG GTB DAILY, #30 CAP 03/29/19 Ergocalciferol (Vitamin D2) (VITAMIN D2) 50,000 Unit Capsule, 78874 UNIT GTB EVERY MONDAY, CAP 03/29/19 Hydralazine Hcl* (Hydralazine Hcl*) 50 Mg Tab, 50 MG GTB TID PRN for ELEVATED BLOOD PRESSURE, #60 TAB 03/29/19 Losartan Potassium* (Losartan Potassium*) 100 Mg Tablet, 100 MG GTB DAILY, TAB 03/29/19 Metoprolol Succinate* (Toprol XL*) 25 Mg Tab.sr.24h, 25 MG GTB DAILY, #30 TAB 03/29/19 Linagliptin (TRADJENTA) 5 Mg Tablet, 5 MG GTB DAILY, TAB 03/29/19 Albuterol Sulfate* (Proair HFA*) 8.5 Gm Hfa.aer.ad, 2 PUFF INH Q4H PRN for WHEEZING AND SOB, #1 INHALER 03/29/19 Ranitidine Hcl* (Ranitidine Hcl*) 300 Mg Tablet, 300 MG GTB HS, #30 TAB 03/29/19 Levetiracetam* (Keppra*) 500 Mg Tablet, 500 MG GTB BID, TAB 03/29/19 Gabapentin* (Gabapentin*) 100 Mg Capsule, 100 MG GTB QHS, #90 CAP 03/29/19 Doxazosin Mesylate* (Doxazosin Mesylate*) 2 Mg Tablet, 2 MG GTB HS, TAB 03/29/19 Docusate Sodium* (Dok*) 100 Mg Tablet, 100 MG GTB BID, #60 CAP 03/29/19 Cyanocobalamin (Vitamin B-12) (Cyanocobalamin Injection) 1,000 Mcg/1 Ml Vial, 1000 MCG IJ EVERY MONDAY, VIAL 03/29/19 Clopidogrel Bisulfate (Clopidogrel) 75 Mg Tablet, 75 MG GTB DAILY, #30 TAB 03/29/19 Calcium Carbonate ([place]-500) 500 Mg Tablet, 500 MG GTB DAILY, TAB 03/29/19 Baclofen* (Baclofen*) 10 Mg Tablet, 10 MG GTB BID, TAB 03/29/19 Atorvastatin* (Atorvastatin*) 40 Mg Tablet, 40 MG GTB QHS, #30 TAB 03/29/19 Aspirin (Low Dose Aspirin) 81 Mg Tablet.dr, 81 MG GTB DAILY, #30 TAB 03/29/19 Medications Current Medications IV Flush (NS 3 ml) 3 ml PER PROTOCOL IV ; Start 03/29/19 at 13:30 Ondansetron HCl (Zofran Inj) 4 mg Q6H PRN IV NAUSEA/VOMITING Last administered on 04/07/19at 18:53; Admin Dose 4 MG; Start 03/29/19 at 13:30 Acetaminophen (Tylenol Tab) 650 mg Q6H PRN PO .PAIN 1-3 OR TEMP Last administered on 03/31/19at 05:48; Admin Dose 650 MG; Start 03/29/19 at 13:30 Hydralazine HCl (Apresoline) 10 mg Q4H PRN IV sbp >160 Last administered on 04/10/19at 02:35; Admin Dose 10 MG; Start 03/29/19 at 14:00 Miscellaneous Information 1 ea NOTE XX ; Start 03/29/19 at 14:30 Glucose (Glutose) 15 gm Q15M PRN PO DECREASED GLUCOSE; Start 03/29/19 at 14:30 Glucose (Glutose) 22.5 gm Q15M PRN PO DECREASED GLUCOSE; Start 03/29/19 at 14:30 Dextrose (D50w Syringe) 25 ml Q15M PRN IV DECREASED GLUCOSE; Start 03/29/19 at 14:30 Dextrose (D50w Syringe) 50 ml Q15M PRN IV DECREASED GLUCOSE; Start 03/29/19 at 14:30 Glucagon (Glucagen) 1 mg Q15M PRN IM DECREASED GLUCOSE; Start 03/29/19 at 14:30 Glucose (Glutose) 15 gm Q15M PRN BUCCAL DECREASED GLUCOSE; Start 03/29/19 at 14:30 Albumin Human 100 ml @ 100 mls/hr WITH DIALYSIS PRN IV SBP <90 DURING DIALYSIS Last administered on 04/03/19at 21:18; Admin Dose 100 MLS/HR; Start 03/29/19 at 17:00 Albuterol/ Ipratropium (Duoneb) 3 ml Q2H RESP THERAPY PRN HHN WHEEZING AND RESP DISTRESS Last administered on 04/09/19 08:52; Admin Dose 3 ML; Start 03/29/19 at 18:00 Lorazepam (Ativan) 0.5 mg Q4H PRN IV AGITATION Last administered on 04/02/19 03:55; Admin Dose 0.5 MG; Start 03/29/19 at 18:00 IV Flush (NS 10 ml) 10 ml Q8 PRN IV IV PROTOCOL; Start 03/29/19 at 18:00 Labetalol HCl (Labetalol) 10 mg Q4H PRN IV sbp >160; Start 03/30/19 at 09:00 Haloperidol (Haldol) 5 mg Q6H PRN IM agitation Last administered on 03/31/19 00:10; Admin Dose 5 MG; Start 03/30/19 at 10:00 Heparin Sodium (Porcine) (Heparin (1000 Units/ml)) 3,200 unit AFTER DIALYSIS CATHETER Last administered on 04/08/19 11:16; Admin Dose 3,200 UNIT; Start 03/30/19 at 17:00 Atorvastatin Calcium (Lipitor) 40 mg HS NGT Last administered on 04/09/19 21:05; Admin Dose 40 MG; Start 03/31/19 at 21:00 Baclofen (Lioresal) 10 mg BID GTB Last administered on 04/09/19 21:05; Admin Dose 10 MG; Start 03/31/19 at 21:00 Doxazosin Mesylate (Cardura) 2 mg DAILY NGT Last administered on 04/07/19 08:24; Admin Dose 2 MG; Start 03/31/19 at 14:30 Gabapentin (Neurontin) 100 mg QHS PO Last administered on 04/09/19 21:05; Admin Dose 100 MG; Start 03/31/19 at 21:00 Losartan Potassium (Cozaar) 100 mg DAILY NGT Last administered on 04/07/19 08:23; Admin Dose 100 MG; Start 03/31/19 at 14:30 Sertraline HCl (Zoloft) 25 mg HS NGT Last administered on 04/09/19 21:06; Admin Dose 25 MG; Start 03/31/19 at 21:00 Acetaminophen (Tylenol Liquid) 650 mg Q4H PRN PEG MILD PAIN(1-3)OR ELEVATED TEMP Last administered on 03/31/19 16:31; Admin Dose 650 MG; Start 03/31/19 at 16:00 Insulin Aspart (Novolog Insulin Pen) NOVOLOG *MILD* ALGORI... Q6 SC Last administered on 04/10/19 05:36; Admin Dose 1 UNIT; Start 04/02/19 at 12:00 Lactobacillus Acidophilus/ Rhamnosus (Culturelle) 1 cap TID GTB Last administered on 04/09/19 21:05; Admin Dose 1 CAP; Start 04/02/19 at 13:00 Carvedilol (Coreg) 25 mg BID NGT Last administered on 04/09/19 21:05; Admin Dose 25 MG; Start 04/02/19 at 21:00 Hydralazine HCl (Apresoline) 75 mg TID NGT Last administered on 04/09/19 21:06; Admin Dose 75 MG; Start 04/02/19 at 21:00 Epoetin [place]-epbx (Retacrit (Esrd)) 10,000 unit MoWeFr@1700 SC Last administered on 04/08/19 17:53; Admin Dose 10,000 UNIT; Start 04/03/19 at 19:30 Lansoprazole (Prevacid) 30 mg BID@0600,1800 GTB Last administered on 04/10/19 05:29; Admin Dose 30 MG; Start 04/04/19 at 18:00 Multivit/Ca Carb/ B Cmplx/FA/Prenat (Karena-Geovanni) 1 tab DAILY GTB Last administered on 04/07/19 08:22; Admin Dose 1 TAB; Start 04/04/19 at 11:30 Aspirin (Aspirin) 81 mg DAILY PO Last administered on 04/07/19 08:23; Admin Dose 81 MG; Start 04/05/19 at 09:00 Clopidogrel Bisulfate (plaVIX) 75 mg DAILY GTB Last administered on 04/07/19 08:23; Admin Dose 75 MG; Start 04/07/19 at 09:00 Quetiapine Fumarate (Seroquel) 50 mg BID GTB Last administered on 04/09/19 21:05; Admin Dose 50 MG; Start 04/07/19 at 09:00 Propofol 100 ml @ 2.097 mls/ hr Q12H PRN IV AGITATION Last administered on 04/08/19 11:39; Admin Dose 6.291 MLS/HR; Start 04/08/19 at 00:00 Fentanyl 100 ml @ 2.5 mls/hr TITRATE IV Last administered on 04/09/19 21:14; Admin Dose 2.5 MLS/HR; Start 04/08/19 at 00:00 Midazolam HCl 50 ml @ 1 mls/hr TITRATE PRN IV agitation Last administered on 04/08/19 22:04; Admin Dose 3 MLS/HR; Start 04/08/19 at 00:00 Norepinephrine 250 ml @ 1.875 mls/ hr TITRATE IV Last administered on 04/08/19 22:04; Admin Dose 7.5 MLS/HR; Start 04/08/19 at 00:00 Vancomycin HCl (Vanco Iv Per Pharmacy) VANCOMYCIN PER PHARMACY PER PROTOCOL XX ; Start 04/08/19 at 00:30 Levetiracetam 100 ml @ 400 mls/hr Q12 IVPB Last administered on 04/09/19 2 1:04; Admin Dose 400 MLS/HR; Start 04/08/19 at 09:30 Nicardipine HCl 50 mg/Sodium Chloride 500 ml @ 50 mls/hr TITRATE IV ; Start 04/08/19 at 09:30 Piperacillin Sod/ Tazobactam Sod 50 ml @ 100 mls/hr Q8H IVPB Last administered on 04/10/19 05:29; Admin Dose 100 MLS/HR; Start 04/08/19 at 21:00 Mupirocin (Bactroban) 1 applic BID TOP Last administered on 04/09/19 21:04; Admin Dose 1 APPLIC; Start 04/09/19 at 21:00 Albuterol (Ventolin Hfa) 4 puff Q6H RESP THERAPY INH Last administered on 04/10/19 01:54; Admin Dose 4 PUFF; Start 04/10/19 at 02:00 Assessment/Plan Hospital Course (Demo Recall) 1. History of extensive coronary artery disease status post ID status post coronary bypass graft status post PCI 2. Status post recent CVA 3. End-stage renal disease on hemodialysis 4. Hypertension 5. Dyslipidemia 6. Severe encephalopathy 7. Dysphagia status post PEG placement 8. Severe anemia and history of GI bleed 9. Respiratory failure status post intubation on the vent now 10. Shock probably septic currently on Levophed drip Recommendations: Resume with aspirin Plavix as soon as okay with GI resume coreg as tolerated. will keep on 12.5 qid for now to be able to adjust easier Respiratory care and ventilatory support will be continued. Weaning as tolerated will defer to the pulmonary team Hemodialysis as per renal. transfuse prn Thank you for this referral. We will continue to follow along with you SEAN CROUCH MD [facility] SEAN CROUCH MD Apr 10, 2019 07:57
[2019-04-10] MEDS: BACLOFEN 10 MG TAB GTB SCH ×2 (09:43→21:50)
[2019-04-10] MEDS: LACTOBACILLUS RHAMNOSUS CAP GTB SCH ×3 (09:43→22:00)
[2019-04-10] MEDS: CLOPIDOGREL 75 MG TAB GTB SCH (09:44)
[2019-04-10] MEDS: MULTIVIT/CA CARB/B CMPLX/FA TAB GTB SCH (09:44)
[2019-04-10] MEDS: LEVETIRACETAM 500 MG (PMX) 100 ML IVPB SCH ×2 (09:45→21:48)
[2019-04-10] MEDS: ASPIRIN 81 MG TAB PO SCH (09:47)
[2019-04-10] MEDS: QUETIAPINE 25 MG TAB GTB SCH ×2 (09:50→21:59)
[2019-04-10] MEDS: MUPIROCIN 2% 22 GM OINT TOP SCH ×2 (09:51→21:49)
[2019-04-10] MEDS ORDERED: VANCOMYCIN 1 GM 250 ML IVPB SCH (10:00)
[2019-04-10] MEDS: DOXAZOSIN 2 MG TAB NGT SCH (10:01)
[2019-04-10] MEDS: LOSARTAN 50 MG TAB NGT SCH (10:07)
--- NOTE | 2019-04-10 11:27 | CONS ---
Assessment/Plan Assessment/Plan Assessment/Plan (Daily) 1. Acute hypoxemic respiratory failure intubated on ventilator 2. Accelerated HTN 3. ESRD on HD - MWF schedule at [facility] HD [place] 4. H/o CAD s/p CABG before 5. H/o CAD with previous recent stent placement in 09/2018 6. h/o HTN 7. H/o DM II 8. h/o HL 9. 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 H/o BPH -EGD 04/03/2019 Moderate distal esophagitis. Gastrostomy tube in place. Gastritis rule out H. pylori infection. Biopsies obtained. Duodenitis. Colonoscopy 04/03/2019 8 sessile polyp in the cecum. Snared and retrieved. 6 mm sessile polyp ascending colon. Snared and retrieved. 6 mm sessile polyp sigmoid. Snared and retrieved. 20 mm sessile polyp sigmoid. Saline assisted lipectomy plus localization tattoo. Moderate-sized internal hemorrhoids Plan: s/p HD yesteday 2.5 L removed - will continue pt on MWF schedule while being in hospital- Hd ordered for Monday - ventilator management as per pulmonary BP controlled with Losartan 100mg po daily Coreg 25 BID, Hydralazine 75 mg pO TID for better BP control Epogen 58356 units SQ MWF will follow up Consultation Date/Type/Reason Admit Date/Time Mar 29, 2019 at 13:16 Initial Consult Date 03/29/19 Type of Consult NEPHROLOGY Requesting Provider: LILLIAN ZHANG MD Date/Time of Note DATE: 04/10/19 TIME: 11:27 Exam/Review of Systems Exam Vitals Vital Signs Date Temp Pulse Resp B/P (MAP) Pulse Ox O2 O2 Flow FiO2 Time Delivery Rate 04/10/19 73 0 146/70 99 Mechanical 11:00 (95) Ventilator 04/10/19 99.7 07:47 04/10/19 40 05:19 04/07/19 15.0 23:37 Intake and Output 04/09/19 04/09/19 04/10/19 1515:00 23:00 07:00 IntakeIntake Total 604.152 ml 421.729 ml 183.8 ml OutputOutput Total 0 ml 15 ml 40 ml BalanceBalance 604.152 ml 406.729 ml 143.8 ml Results Result Diagram: 04/10/19 0503 04/10/19 0503 Results 24hrs Laboratory Tests Test 04/09/19 12:10 04/09/19 18:03 04/10/19 00:23 04/10/19 05:03 Bedside Glucose 127 131 154 White Blood Count 12.2 H Red Blood Count 2.56 L Hemoglobin 7.9 L Hematocrit 24.3 L Mean Corpuscular Volume 94.9 Mean Corpuscular 30.9 Hemoglobin Mean Corpuscular 32.5 Hemoglobin Concent Red Cell Distribution 17.3 H Width Platelet Count 183 Mean Platelet Volume 11.0 H Immature Granulocytes % 0.500 H Neutrophils % 86.9 H Lymphocytes % 5.1 L Monocytes % 2.1 Eosinophils % 4.8 Basophils % 0.6 Nucleated Red Blood 0.0 Cells % Immature Granulocytes # 0.060 H Neutrophils # 10.6 H Lymphocytes # 0.6 L Monocytes # 0.3 Eosinophils # 0.6 H Basophils # 0.1 Nucleated Red Blood 0.0 Cells # Sodium Level 144 Potassium Level 4.2 Chloride Level 108 Carbon Dioxide Level 25 Anion Gap 11 Blood Urea Nitrogen 38 #H Creatinine 6.48 #H Glucose Level 154 Calcium Level 9.2 Phosphorus Level 3.8 Magnesium Level 2.3 Albumin 3.0 L Random Vancomycin Level 12.6 Test 04/10/19 05:32 Bedside Glucose 162 Medications Medication Current Medications IV Flush (NS 3 ml) 3 ml PER PROTOCOL IV ; Start 03/29/19 at 13:30 Ondansetron HCl (Zofran Inj) 4 mg Q6H PRN IV NAUSEA/VOMITING Last administered on 04/07/19at 18:53; Admin Dose 4 MG; Start 03/29/19 at 13:30 Acetaminophen (Tylenol Tab) 650 mg Q6H PRN PO .PAIN 1-3 OR TEMP Last administe red on 03/31/19at 05:48; Admin Dose 650 MG; Start 03/29/19 at 13:30 Hydralazine HCl (Apresoline) 10 mg Q4H PRN IV sbp >160 Last administered on 04/10/19at 02:35; Admin Dose 10 MG; Start 03/29/19 at 14:00 Miscellaneous Information 1 ea NOTE XX ; Start 03/29/19 at 14:30 Glucose (Glutose) 15 gm Q15M PRN PO DECREASED GLUCOSE; Start 03/29/19 at 14:30 Glucose (Glutose) 22.5 gm Q15M PRN PO DECREASED GLUCOSE; Start 03/29/19 at 14:30 Dextrose (D50w Syringe) 25 ml Q15M PRN IV DECREASED GLUCOSE; Start 03/29/19 at 14:30 Dextrose (D50w Syringe) 50 ml Q15M PRN IV DECREASED GLUCOSE; Start 03/29/19 at 14:30 Glucagon (Glucagen) 1 mg Q15M PRN IM DECREASED GLUCOSE; Start 03/29/19 at 14:30 Glucose (Glutose) 15 gm Q15M PRN BUCCAL DECREASED GLUCOSE; Start 03/29/19 at 14:30 Albumin Human 100 ml @ 100 mls/hr WITH DIALYSIS PRN IV SBP <90 DURING DIALYSIS Last administered on 04/03/19at 21:18; Admin Dose 100 MLS/HR; Start 03/29/19 at 17:00 Albuterol/ Ipratropium (Duoneb) 3 ml Q2H RESP THERAPY PRN HHN WHEEZING AND RESP DISTRESS Last administered on 04/09/19at 08:52; Admin Dose 3 ML; Start 03/29/19 at 18:00 Lorazepam (Ativan) 0.5 mg Q4H PRN IV AGITATION Last administered on 04/02/19at 03:55; Admin Dose 0.5 MG; Start 03/29/19 at 18:00 IV Flush (NS 10 ml) 10 ml Q8 PRN IV IV PROTOCOL; Start 03/29/19 at 18:00 Labetalol HCl (Labetalol) 10 mg Q4H PRN IV sbp >160; Start 03/30/19 at 09:00 Haloperidol (Haldol) 5 mg Q6H PRN IM agitation Last administered on 03/31/19at 00:10; Admin Dose 5 MG; Start 03/30/19 at 10:00 Heparin Sodium (Porcine) (Heparin (1000 Units/ml)) 3,200 unit AFTER DIALYSIS CATHETER Last administered on 04/08/19at 11:16; Admin Dose 3,200 UNIT; Start 03/30/19 at 17:00 Atorvastatin Calcium (Lipitor) 40 mg HS NGT Last administered on 04/09/19at 21:05; Admin Dose 40 MG; Start 03/31/19 at 21:00 Baclofen (Lioresal) 10 mg BID GTB Last administered on 04/10/19 09:43; Admin Dose 10 MG; Start 03/31/19 at 21:00 Doxazosin Mesylate (Cardura) 2 mg DAILY NGT Last administered on 04/10/19 10:01; Admin Dose 2 MG; Start 03/31/19 at 14:30 Gabapentin (Neurontin) 100 mg QHS PO Last administered on 04/09/19 21:05; Admin Dose 100 MG; Start 03/31/19 at 21:00 Losartan Potassium (Cozaar) 100 mg DAILY NGT Last administered on 04/10/19 10:07; Admin Dose 100 MG; Start 03/31/19 at 14:30 Sertraline HCl (Zoloft) 25 mg HS NGT Last administered on 04/09/19 21:06; Admin Dose 25 MG; Start 03/31/19 at 21:00 Acetaminophen (Tylenol Liquid) 650 mg Q4H PRN PEG MILD PAIN(1-3)OR ELEVATED TEMP Last administered on 03/31/19 16:31; Admin Dose 650 MG; Start 03/31/19 at 16:00 Insulin Aspart (Novolog Insulin Pen) NOVOLOG *MILD* ALGORI... Q6 SC Last administered on 04/10/19 05:36; Admin Dose 1 UNIT; Start 04/02/19 at 12:00 Lactobacillus Acidophilus/ Rhamnosus (Culturelle) 1 cap TID GTB Last administered on 04/10/19 09:43; Admin Dose 1 CAP; Start 04/02/19 at 13:00 Hydralazine HCl (Apresoline) 75 mg TID NGT Last administered on 04/10/19 10:08; Admin Dose 75 MG; Start 04/02/19 at 21:00 Epoetin [place]-epbx (Retacrit (Esrd)) 10,000 unit MoWeFr@1700 SC Last administered on 04/08/19 17:53; Admin Dose 10,000 UNIT; Start 04/03/19 at 19:30 Lansoprazole (Prevacid) 30 mg BID@0600,1800 GTB Last administered on 04/10/19 05:29; Admin Dose 30 MG; Start 04/04/19 at 18:00 Multivit/Ca Carb/ B Cmplx/FA/Prenat (Karena-Geovanni) 1 tab DAILY GTB Last administered on 04/10/19 09:44; Admin Dose 1 TAB; Start 04/04/19 at 11:30 Aspirin (Aspirin) 81 mg DAILY PO Last administered on 04/10/19 09:47; Admin Dose 81 MG; Start 04/05/19 at 09:00 Clopidogrel Bisulfate (plaVIX) 75 mg DAILY GTB Last administered on 04/10/19 09:44; Admin Dose 75 MG; Start 04/07/19 at 09:00 Quetiapine Fumarate (Seroquel) 50 mg BID GTB Last administered on 04/10/19 09:50; Admin Dose 50 MG; Start 04/07/19 at 09:00 Propofol 100 ml @ 2.097 mls/ hr Q12H PRN IV AGITATION Last administered on 04/08/19 11:39; Admin Dose 6.291 MLS/HR; Start 04/08/19 at 00:00 Fentanyl 100 ml @ 2.5 mls/hr TITRATE IV Last administered on 04/09/19 21:14; Admin Dose 2.5 MLS/HR; Start 04/08/19 at 00:00 Midazolam HCl 50 ml @ 1 mls/hr TITRATE PRN IV agitation Last administered on 04/08/19 22:04; Admin Dose 3 MLS/HR; Start 04/08/19 at 00:00 Norepinephrine 250 ml @ 1.875 mls/ hr TITRATE IV Last administered on 04/08/19 22:04; Admin Dose 7.5 MLS/HR; Start 04/08/19 at 00:00 Vancomycin HCl (Vanco Iv Per Pharmacy) VANCOMYCIN PER PHARMACY PER PROTOCOL XX ; Start 04/08/19 at 00:30 Levetiracetam 100 ml @ 400 mls/hr Q12 IVPB Last administered on 04/10/19 09:45; Admin Dose 400 MLS/HR; Start 04/08/19 at 09:30 Nicardipine HCl 50 mg/Sodium Chloride 500 ml @ 50 mls/hr TITRATE IV ; Start 04/08/19 at 09:30 Piperacillin Sod/ Tazobactam Sod 50 ml @ 100 mls/hr Q8H IVPB Last administered on 04/10/19 05:29; Admin Dose 100 MLS/HR; Start 04/08/19 at 21:00 Mupirocin (Bactroban) 1 applic BID TOP Last administered on 04/10/19at 09:51; Admin Dose 1 APPLIC; Start 04/09/19 at 21:00 Albuterol (Ventolin Hfa) 4 puff Q6H RESP THERAPY INH Last administered on 04/10/19at 08:05; Admin Dose 4 PUFF; Start 04/10/19 at 02:00 Carvedilol (Coreg) 12.5 mg QID NGT Last administered on 04/10/19at 09:47; Admin Dose 12.5 MG; Start 04/10/19 at 09:00 Miscellaneous Information (*Rx Drug Level Order Reminder*) RANDOM VANCO LEVEL ... 0500 ONCE XX ; Start 04/13/19 at 05:00; Stop 04/13/19 at 05:01 Vancomycin HCl 250 ml @ 125 mls/hr ONCE IVPB Last administered on 04/10/19at 10:18; Admin Dose 125 MLS/HR; Start 04/10/19 at 10:00; Stop 04/10/19 at 23:59 BETZAIDA YAÑEZ MD Apr 10, 2019 11:27
--- NOTE | 2019-04-10 11:53 | CONS ---
Assessment/Plan Assessment/Plan Hospital Course (Demo Recall) Patient remains intubated sedated in no distress no fevers overnight. T-max 99.7. WBC 12.2 platelets 183 neutrophils 86.9 BUN 38 creatinine 6.48 Microbiology: Blood culture and urine culture remain negative sputum culture grew Klebsiella pneumoniae ESBL and Serratia marcescens Indwelling's: Endotracheal tube right chest permacath, PEG, Win[place], PICC line Antimicrobials: Zosyn, vancomycin Physical examination: Well-developed chronically ill-appearing middle-aged man who is intubated sedated in no distress. Head atraumatic normocephalic neck is supple chest rise symmetrical breath sounds diminished bases. Heart: S1-S2. Abdomen soft bowel sounds present. Extremities without cyanosis Assessment: 1. Sepsis 2. Acute respiratory failure possibly aspirated 3. MRSA nares colonization 4. Encephalopathy, possible acute on chronic CVA 5. End-stage renal disease, hemodialysis dependent 6. Dysphagia Plan: Patient is hemodynamically stable, continue abx, vent management per pulm onary. We will keep on Zosyn as per sensitivities and given the fact that patient is on antiseizure medications Consultation Date/Type/Reason Admit Date/Time Mar 29, 2019 at 13:16 Initial Consult Date 04/07/19 Type of Consult id Requesting Provider: LILLIAN ZHANG MD Date/Time of Note DATE: 04/10/19 TIME: 11:52 Exam/Review of Systems Exam Vitals Vital Signs Date Temp Pulse Resp B/P (MAP) Pulse Ox O2 O2 Flow FiO2 Time Delivery Rate 04/10/19 73 0 146/70 99 Mechanical 11:00 (95) Ventilator 04/10/19 99.7 07:47 04/10/19 40 05:19 04/07/19 15.0 23:37 Intake and Output 04/09/19 04/09/19 04/10/19 1515:00 23:00 07:00 IntakeIntake Total 604.152 ml 421.729 ml 183.8 ml OutputOutput Total 0 ml 15 ml 40 ml BalanceBalance 604.152 ml 406.729 ml 143.8 ml Results Result Diagram: 04/10/19 0503 04/10/19 0503 Results 24hrs Laboratory Tests Test 04/09/19 12:10 04/09/19 18:03 04/10/19 00:23 04/10/19 05:03 Bedside Glucose 127 131 154 White Blood Count 12.2 H Red Blood Count 2.56 L Hemoglobin 7.9 L Hematocrit 24.3 L Mean Corpuscular Volume 94.9 Mean Corpuscular 30.9 Hemoglobin Mean Corpuscular 32.5 Hemoglobin Concent Red Cell Distribution 17.3 H Width Platelet Count 183 Mean Platelet Volume 11.0 H Immature Granulocytes % 0.500 H Neutrophils % 86.9 H Lymphocytes % 5.1 L Monocytes % 2.1 Eosinophils % 4.8 Basophils % 0.6 Nucleated Red Blood 0.0 Cells % Immature Granulocytes # 0.060 H Neutrophils # 10.6 H Lymphocytes # 0.6 L Monocytes # 0.3 Eosinophils # 0.6 H Basophils # 0.1 Nucleated Red Blood 0.0 Cells # Sodium Level 144 Potassium Level 4.2 Chloride Level 108 Carbon Dioxide Level 25 Anion Gap 11 Blood Urea Nitrogen 38 #H Creatinine 6.48 #H Glucose Level 154 Calcium Level 9.2 Phosphorus Level 3.8 Magnesium Level 2.3 Albumin 3.0 L Random Vancomycin Level 12.6 Test 04/10/19 05:32 Bedside Glucose 162 Medications Medication Current Medications IV Flush (NS 3 ml) 3 ml PER PROTOCOL IV ; Start 03/29/19 at 13:30 Ondansetron HCl (Zofran Inj) 4 mg Q6H PRN IV NAUSEA/VOMITING Last administered on 04/07/19at 18:53; Admin Dose 4 MG; Start 03/29/19 at 13:30 Acetaminophen (Tylenol Tab) 650 mg Q6H PRN PO .PAIN 1-3 OR TEMP Last administered on 03/31/19at 05:48; Admin Dose 650 MG; Start 03/29/19 at 13:30 Hydralazine HCl (Apresoline) 10 mg Q4H PRN IV sbp >160 Last administered on 04/10/19at 02:35; Admin Dose 10 MG; Start 03/29/19 at 14:00 Miscellaneous Information 1 ea NOTE XX ; Start 03/29/19 at 14:30 Glucose (Glutose) 15 gm Q15M PRN PO DECREASED GLUCOSE; Start 03/29/19 at 14:30 Glucose (Glutose) 22.5 gm Q15M PRN PO DECREASED GLUCOSE; Start 03/29/19 at 14:30 Dextrose (D50w Syringe) 25 ml Q15M PRN IV DECREASED GLUCOSE; Start 03/29/19 at 14:30 Dextrose (D50w Syringe) 50 ml Q15M PRN IV DECREASED GLUCOSE; Start 03/29/19 at 14:30 Glucagon (Glucagen) 1 mg Q15M PRN IM DECREASED GLUCOSE; Start 03/29/19 at 14:30 Glucose (Glutose) 15 gm Q15M PRN BUCCAL DECREASED GLUCOSE; Start 03/29/19 at 14:30 Albumin Human 100 ml @ 100 mls/hr WITH DIALYSIS PRN IV SBP <90 DURING DIALYSIS Last administered on 04/03/19at 21:18; Admin Dose 100 MLS/HR; Start 03/29/19 at 17:00 Albuterol/ Ipratropium (Duoneb) 3 ml Q2H RESP THERAPY PRN HHN WHEEZING AND RESP DISTRESS Last administered on 04/09/19at 08:52; Admin Dose 3 ML; Start 03/29/19 at 18:00 Lorazepam (Ativan) 0.5 mg Q4H PRN IV AGITATION Last administered on 04/02/19at 03:55; Admin Dose 0.5 MG; Start 03/29/19 at 18:00 IV Flush (NS 10 ml) 10 ml Q8 PRN IV IV PROTOCOL; Start 03/29/19 at 18:00 Labetalol HCl (Labetalol) 10 mg Q4H PRN IV sbp >160; Start 03/30/19 at 09:00 Haloperidol (Haldol) 5 mg Q6H PRN IM agitation Last administered on 03/31/19at 00:10; Admin Dose 5 MG; Start 03/30/19 at 10:00 Heparin Sodium (Porcine) (Heparin (1000 Units/ml)) 3,200 unit AFTER DIALYSIS CATHETER Last administered on 04/08/19at 11:16; Admin Dose 3,200 UNIT; Start 03/30/19 at 17:00 Atorvastatin Calcium (Lipitor) 40 mg HS NGT Last administered on 04/09/19at 21:0 5; Admin Dose 40 MG; Start 03/31/19 at 21:00 Baclofen (Lioresal) 10 mg BID GTB Last administered on 04/10/19at 09:43; Admin Dose 10 MG; Start 03/31/19 at 21:00 Doxazosin Mesylate (Cardura) 2 mg DAILY NGT Last administered on 04/10/19 10:01; Admin Dose 2 MG; Start 03/31/19 at 14:30 Gabapentin (Neurontin) 100 mg QHS PO Last administered on 04/09/19 21:05; Admin Dose 100 MG; Start 03/31/19 at 21:00 Losartan Potassium (Cozaar) 100 mg DAILY NGT Last administered on 04/10/19 10:07; Admin Dose 100 MG; Start 03/31/19 at 14:30 Sertraline HCl (Zoloft) 25 mg HS NGT Last administered on 04/09/19 21:06; Admin Dose 25 MG; Start 03/31/19 at 21:00 Acetaminophen (Tylenol Liquid) 650 mg Q4H PRN PEG MILD PAIN(1-3)OR ELEVATED TEMP Last administered on 03/31/19 16:31; Admin Dose 650 MG; Start 03/31/19 at 16:00 Insulin Aspart (Novolog Insulin Pen) NOVOLOG *MILD* ALGORI... Q6 SC Last administered on 04/10/19 05:36; Admin Dose 1 UNIT; Start 04/02/19 at 12:00 Lactobacillus Acidophilus/ Rhamnosus (Culturelle) 1 cap TID GTB Last administered on 04/10/19 09:43; Admin Dose 1 CAP; Start 04/02/19 at 13:00 Hydralazine HCl (Apresoline) 75 mg TID NGT Last administered on 04/10/19 10:08; Admin Dose 75 MG; Start 04/02/19 at 21:00 Epoetin [place]-epbx (Retacrit (Esrd)) 10,000 unit MoWeFr@1700 SC Last administe red on 04/08/19 17:53; Admin Dose 10,000 UNIT; Start 04/03/19 at 19:30 Lansoprazole (Prevacid) 30 mg BID@0600,1800 GTB Last administered on 04/10/19 05:29; Admin Dose 30 MG; Start 04/04/19 at 18:00 Multivit/Ca Carb/ B Cmplx/FA/Prenat (Karena-Geovanni) 1 tab DAILY GTB Last administered on 04/10/19 09:44; Admin Dose 1 TAB; Start 04/04/19 at 11:30 Aspirin (Aspirin) 81 mg DAILY PO Last administered on 04/10/19 09:47; Admin Dose 81 MG; Start 04/05/19 at 09:00 Clopidogrel Bisulfate (plaVIX) 75 mg DAILY GTB Last administered on 04/10/19 09:44; Admin Dose 75 MG; Start 04/07/19 at 09:00 Quetiapine Fumarate (Seroquel) 50 mg BID GTB Last administered on 04/10/19 09:50; Admin Dose 50 MG; Start 04/07/19 at 09:00 Propofol 100 ml @ 2.097 mls/ hr Q12H PRN IV AGITATION Last administered on 04/08/19 11:39; Admin Dose 6.291 MLS/HR; Start 04/08/19 at 00:00 Fentanyl 100 ml @ 2.5 mls/hr TITRATE IV Last administered on 04/09/19 21:14; Admin Dose 2.5 MLS/HR; Start 04/08/19 at 00:00 Midazolam HCl 50 ml @ 1 mls/hr TITRATE PRN IV agitation Last administered on 04/08/19 22:04; Admin Dose 3 MLS/HR; Start 04/08/19 at 00:00 Norepinephrine 250 ml @ 1.875 mls/ hr TITRATE IV Last administered on 04/08/19 22:04; Admin Dose 7.5 MLS/HR; Start 04/08/19 at 00:00 Vancomycin HCl (Vanco Iv Per Pharmacy) VANCOMYCIN PER PHARMACY PER PROTOCOL XX ; Start 04/08/19 at 00:30 Levetiracetam 100 ml @ 400 mls/hr Q12 IVPB Last administered on 04/10/19 09:45; Admin Dose 400 MLS/HR; Start 04/08/19 at 09:30 Nicardipine HCl 50 mg/Sodium Chloride 500 ml @ 50 mls/hr TITRATE IV ; Start 04/08/19 at 09:30 Piperacillin Sod/ Tazobactam Sod 50 ml @ 100 mls/hr Q8H IVPB Last administered on 04/10/19 05:29; Admin Dose 100 MLS/HR; Start 04/08/19 at 21:00 Mupirocin (Bactroban) 1 applic BID TOP Last administered on 04/10/19 09:51; Admin Dose 1 APPLIC; Start 04/09/19 at 21:00 Albuterol (Ventolin Hfa) 4 puff Q6H RESP THERAPY INH Last administered on 04/10/19at 08:05; Admin Dose 4 PUFF; Start 04/10/19 at 02:00 Carvedilol (Coreg) 12.5 mg QID NGT Last administered on 04/10/19at 09:47; Admin Dose 12.5 MG; Start 04/10/19 at 09:00 Miscellaneous Information (*Rx Drug Level Order Reminder*) RANDOM VANCO LEVEL ... 0500 ONCE XX ; Start 04/13/19 at 05:00; Stop 04/13/19 at 05:01 Vancomycin HCl 250 ml @ 125 mls/hr ONCE IVPB Last administered on 04/10/19at 10:18; Admin Dose 125 MLS/HR; Start 04/10/19 at 10:00; Stop 04/10/19 at 23:59 UMA COLINDRES NP Apr 10, 2019 11:53
--- NOTE | 2019-04-10 12:46 | CONS ---
Consult Date/Type/Reason Admit Date/Time Mar 29, 2019 at 13:16 Initial Consult Date 04/07/19 Type of Consult Pulmonary Requesting Provider: LILLIAN ZHANG MD Date/Time of Note DATE: 04/10/19 TIME: 12:45 Subjective Patient continues mechanical ventilation still has intermittent agitation. Objective Vital Signs Date Temp Pulse Resp B/P (MAP) Pulse Ox O2 O2 Flow FiO2 Time Delivery Rate 04/10/19 73 18 99 40 11:50 04/10/19 146/70 Mechanical 11:00 (95) Ventilator 04/10/19 99.7 07:47 04/07/19 15.0 23:37 Intake and Output 04/09/19 04/09/19 04/10/19 1515:00 23:00 07:00 IntakeIntake Total 604.152 ml 421.729 ml 183.8 ml OutputOutput Total 0 ml 15 ml 40 ml BalanceBalance 604.152 ml 406.729 ml 143.8 ml Exam PHYSICAL EXAMINATION: GENERAL: Well-nourished, well-developed gentleman, orally intubated on mechanical ventilation. VITAL SIGNS: NECK: Supple. No JVD or lymphadenopathy. CARDIAC: S1, S2, no added sounds or murmurs. CHEST: Diminished air entry bilaterally. ABDOMEN: Soft, nontender. No guarding or rebound. EXTREMITIES: No cyanosis, clubbing or edema. NEUROLOGIC: Grossly intact. No focal deficits. Vent Setting Ventilator Support Mode: AC Fraction of Inspired Oxygen pe: 40 Positive End Expiratory Pressu: 5.0 Results/Medications Result Diagram: 04/10/19 0503 04/10/19 0503 Results 24 hrs Laboratory Tests Test 04/09/19 18:03 04/10/19 00:23 04/10/19 05:03 04/10/19 05:32 Bedside Glucose 131 154 162 White Blood Count 12.2 H Red Blood Count 2.56 L Hemoglobin 7.9 L Hematocrit 24.3 L Mean Corpuscular Volume 94.9 Mean Corpuscular 30.9 Hemoglobin Mean Corpuscular 32.5 Hemoglobin Concent Red Cell Distribution 17.3 H Width Platelet Count 183 Mean Platelet Volume 11.0 H Immature Granulocytes % 0.500 H Neutrophils % 86.9 H Lymphocytes % 5.1 L Monocytes % 2.1 Eosinophils % 4.8 Basophils % 0.6 Nucleated Red Blood 0.0 Cells % Immature Granulocytes # 0.060 H Neutrophils # 10.6 H Lymphocytes # 0.6 L Monocytes # 0.3 Eosinophils # 0.6 H Basophils # 0.1 Nucleated Red Blood 0.0 Cells # Sodium Level 144 Potassium Level 4.2 Chloride Level 108 Carbon Dioxide Level 25 Anion Gap 11 Blood Urea Nitrogen 38 #H Creatinine 6.48 #H Glucose Level 154 Calcium Level 9.2 Phosphorus Level 3.8 Magnesium Level 2.3 Albumin 3.0 L Random Vancomycin Level 12.6 Test 04/10/19 12:02 Bedside Glucose 167 Medications Current Medications IV Flush (NS 3 ml) 3 ml PER PROTOCOL IV ; Start 03/29/19 at 13:30 Ondansetron HCl (Zofran Inj) 4 mg Q6H PRN IV NAUSEA/VOMITING Last administered on 04/07/19at 18:53; Admin Dose 4 MG; Start 03/29/19 at 13:30 Acetaminophen (Tylenol Tab) 650 mg Q6H PRN PO .PAIN 1-3 OR TEMP Last adm inistered on 03/31/19at 05:48; Admin Dose 650 MG; Start 03/29/19 at 13:30 Hydralazine HCl (Apresoline) 10 mg Q4H PRN IV sbp >160 Last administered on 04/10/19at 02:35; Admin Dose 10 MG; Start 03/29/19 at 14:00 Miscellaneous Information 1 ea NOTE XX ; Start 03/29/19 at 14:30 Glucose (Glutose) 15 gm Q15M PRN PO DECREASED GLUCOSE; Start 03/29/19 at 14:30 Glucose (Glutose) 22.5 gm Q15M PRN PO DECREASED GLUCOSE; Start 03/29/19 at 14:30 Dextrose (D50w Syringe) 25 ml Q15M PRN IV DECREASED GLUCOSE; Start 03/29/19 at 14:30 Dextrose (D50w Syringe) 50 ml Q15M PRN IV DECREASED GLUCOSE; Start 03/29/19 at 14:30 Glucagon (Glucagen) 1 mg Q15M PRN IM DECREASED GLUCOSE; Start 03/29/19 at 14:30 Glucose (Glutose) 15 gm Q15M PRN BUCCAL DECREASED GLUCOSE; Start 03/29/19 at 14:30 Albumin Human 100 ml @ 100 mls/hr WITH DIALYSIS PRN IV SBP <90 DURING DIALYSIS Last administered on 04/03/19 21:18; Admin Dose 100 MLS/HR; Start 03/29/19 at 17:00 Albuterol/ Ipratropium (Duoneb) 3 ml Q2H RESP THERAPY PRN HHN WHEEZING AND RESP DISTRESS Last administered on 04/09/19 08:52; Admin Dose 3 ML; Start 03/29/19 at 18:00 Lorazepam (Ativan) 0.5 mg Q4H PRN IV AGITATION Last administered on 04/02/19 03:55; Admin Dose 0.5 MG; Start 03/29/19 at 18:00 IV Flush (NS 10 ml) 10 ml Q8 PRN IV IV PROTOCOL; Start 03/29/19 at 18:00 Labetalol HCl (Labetalol) 10 mg Q4H PRN IV sbp >160; Start 03/30/19 at 09:00 Haloperidol (Haldol) 5 mg Q6H PRN IM agitation Last administered on 03/31/19 00:10; Admin Dose 5 MG; Start 03/30/19 at 10:00 Heparin Sodium (Porcine) (Heparin (1000 Units/ml)) 3,200 unit AFTER DIALYSIS CATHETER Last administered on 04/08/19 11:16; Admin Dose 3,200 UNIT; Start 03/30/19 at 17:00 Atorvastatin Calcium (Lipitor) 40 mg HS NGT Last administered on 04/09/19 21:05; Admin Dose 40 MG; Start 03/31/19 at 21:00 Baclofen (Lioresal) 10 mg BID GTB Last administered on 04/10/19 09:43; Admin Dose 10 MG; Start 03/31/19 at 21:00 Doxazosin Mesylate (Cardura) 2 mg DAILY NGT Last administered on 04/10/19 1 0:01; Admin Dose 2 MG; Start 03/31/19 at 14:30 Gabapentin (Neurontin) 100 mg QHS PO Last administered on 04/09/19 21:05; Admin Dose 100 MG; Start 03/31/19 at 21:00 Losartan Potassium (Cozaar) 100 mg DAILY NGT Last administered on 04/10/19 10:07; Admin Dose 100 MG; Start 03/31/19 at 14:30 Sertraline HCl (Zoloft) 25 mg HS NGT Last administered on 04/09/19 21:06; Admin Dose 25 MG; Start 03/31/19 at 21:00 Acetaminophen (Tylenol Liquid) 650 mg Q4H PRN PEG MILD PAIN(1-3)OR ELEVATED TEMP Last administered on 03/31/19 16:31; Admin Dose 650 MG; Start 03/31/19 at 16:00 Insulin Aspart (Novolog Insulin Pen) NOVOLOG *MILD* ALGORI... Q6 SC Last administered on 04/10/19 05:36; Admin Dose 1 UNIT; Start 04/02/19 at 12:00 Lactobacillus Acidophilus/ Rhamnosus (Culturelle) 1 cap TID GTB Last administer ed on 04/10/19 09:43; Admin Dose 1 CAP; Start 04/02/19 at 13:00 Hydralazine HCl (Apresoline) 75 mg TID NGT Last administered on 04/10/19 10:08; Admin Dose 75 MG; Start 04/02/19 at 21:00 Epoetin [place]-epbx (Retacrit (Esrd)) 10,000 unit MoWeFr@1700 SC Last administered on 04/08/19 17:53; Admin Dose 10,000 UNIT; Start 04/03/19 at 19:30 Lansoprazole (Prevacid) 30 mg BID@0600,1800 GTB Last administered on 04/10/19 05:29; Admin Dose 30 MG; Start 04/04/19 at 18:00 Multivit/Ca Carb/ B Cmplx/FA/Prenat (Karena-Geovanni) 1 tab DAILY GTB Last administered on 04/10/19 09:44; Admin Dose 1 TAB; Start 04/04/19 at 11:30 Aspirin (Aspirin) 81 mg DAILY PO Last administered on 04/10/19 09:47; Admin Dose 81 MG; Start 04/05/19 at 09:00 Clopidogrel Bisulfate (plaVIX) 75 mg DAILY GTB Last administered on 04/10/19 0 9:44; Admin Dose 75 MG; Start 04/07/19 at 09:00 Quetiapine Fumarate (Seroquel) 50 mg BID GTB Last administered on 04/10/19 09:50; Admin Dose 50 MG; Start 04/07/19 at 09:00 Propofol 100 ml @ 2.097 mls/ hr Q12H PRN IV AGITATION Last administered on 04/08/19 11:39; Admin Dose 6.291 MLS/HR; Start 04/08/19 at 00:00 Fentanyl 100 ml @ 2.5 mls/hr TITRATE IV Last administered on 04/09/19 21:14; Admin Dose 2.5 MLS/HR; Start 04/08/19 at 00:00 Midazolam HCl 50 ml @ 1 mls/hr TITRATE PRN IV agitation Last administered on 04/08/19 22:04; Admin Dose 3 MLS/HR; Start 04/08/19 at 00:00 Norepinephrine 250 ml @ 1.875 mls/ hr TITRATE IV Last administered on 04/08/19 22:04; Admin Dose 7.5 MLS/HR; Start 04/08/19 at 00:00 Vancomycin HCl (Vanco Iv Per Pharmacy) VANCOMYCIN PER PHARMACY PER PROTOCOL XX ; Start 04/08/19 at 00:30 Levetiracetam 100 ml @ 400 mls/hr Q12 IVPB Last administered on 04/10/19 09:45; Admin Dose 400 MLS/HR; Start 04/08/19 at 09:30 Nicardipine HCl 50 mg/Sodium Chloride 500 ml @ 50 mls/hr TITRATE IV ; Start 04/08/19 at 09:30 Piperacillin Sod/ Tazobactam Sod 50 ml @ 100 mls/hr Q8H IVPB Last administered on 04/10/19 05:29; Admin Dose 100 MLS/HR; Start 04/08/19 at 21:00 Mupirocin (Bactroban) 1 applic BID TOP Last administered on 04/10/19 09:51; Admin Dose 1 APPLIC; Start 04/09/19 at 21:00 Albuterol (Ventolin Hfa) 4 puff Q6H RESP THERAPY INH Last administered on 04/10/19 08:05; Admin Dose 4 PUFF; Start 04/10/19 at 02:00 Carvedilol (Coreg) 12.5 mg QID NGT Last administered on 04/10/19 09:47; Admin Dose 12.5 MG; Start 04/10/19 at 09:00 Miscellaneous Information (*Rx Drug Level Order Reminder*) RANDOM VANCO LEVEL ... 0500 ONCE XX ; Start 04/13/19 at 05:00; Stop 04/13/19 at 05:01 Vancomycin HCl 250 ml @ 125 mls/hr ONCE IVPB Last administered on 04/10/19at 10:18; Admin Dose 125 MLS/HR; Start 04/10/19 at 10:00; Stop 04/10/19 at 23:59 Assessment/Plan Hospital Course (Demo Recall) assessment 1. septic shock 2. Chronic renal insufficiency 3. Anemia likely of chronic disease 4. Encephalopathy toxic metabolic PLAN: 1. Continue vasopressor support. 2. Broad-spectrum antibiotics. 3. Hemodialysis as tolerated. 4. Anti-seizure medications. 5. DVT and GI prophylaxis. 6. Pringle culture. 7. DVT and GI prophylaxis. 8. Trial of Precedex and CPAP weaning trial if tolerated Critical care time 40 minutes. SAMMI MOSES MD, [facility] Apr 10, 2019 12:46
--- NOTE | 2019-04-10 13:00 | PN ---
Date/Time of Note Date/Time of Note DATE: 04/10/19 TIME: 12:58 Objective Vitals Vital Signs Date Temp Pulse Resp B/P (MAP) Pulse Ox O2 O2 Flow FiO2 Time Delivery Rate 04/10/19 73 18 99 40 11:50 04/10/19 146/70 Mechanical 11:00 (95) Ventilator 04/10/19 99.7 07:47 04/07/19 15.0 23:37 Intake and Output 04/09/19 04/09/19 04/10/19 1515:00 23:00 07:00 IntakeIntake Total 604.152 ml 421.729 ml 183.8 ml OutputOutput Total 0 ml 15 ml 40 ml BalanceBalance 604.152 ml 406.729 ml 143.8 ml Results Result Diagram: 04/10/19 0503 04/10/19 0503 Medications Medications Current Medications IV Flush (NS 3 ml) 3 ml PER PROTOCOL IV ; Start 03/29/19 at 13:30 Ondansetron HCl (Zofran Inj) 4 mg Q6H PRN IV NAUSEA/VOMITING Last administered on 04/07/19at 18:53; Admin Dose 4 MG; Start 03/29/19 at 13:30 Acetaminophen (Tylenol Tab) 650 mg Q6H PRN PO .PAIN 1-3 OR TEMP Last administered on 03/31/19at 05:48; Admin Dose 650 MG; Start 03/29/19 at 13:30 Hydralazine HCl (Apresoline) 10 mg Q4H PRN IV sbp >160 Last administered on 04/10/19at 02:35; Admin Dose 10 MG; Start 03/29/19 at 14:00 Miscellaneous Information 1 ea NOTE XX ; Start 03/29/19 at 14:30 Glucose (Glutose) 15 gm Q15M PRN PO DECREASED GLUCOSE; Start 03/29/19 at 14:30 Glucose (Glutose) 22.5 gm Q15M PRN PO DECREASED GLUCOSE; Start 03/29/19 at 14:30 Dextrose (D50w Syringe) 25 ml Q15M PRN IV DECREASED GLUCOSE; Start 03/29/19 at 14:30 Dextrose (D50w Syringe) 50 ml Q15M PRN IV DECREASED GLUCOSE; Start 03/29/19 at 14:30 Glucagon (Glucagen) 1 mg Q15M PRN IM DECREASED GLUCOSE; Start 03/29/19 at 14:30 Glucose (Glutose) 15 gm Q15M PRN BUCCAL DECREASED GLUCOSE; Start 03/29/19 at 14:30 Albumin Human 100 ml @ 100 mls/hr WITH DIALYSIS PRN IV SBP <90 DURING DIALYSIS Last administered on 04/03/19 21:18; Admin Dose 100 MLS/HR; Start 03/29/19 at 17:00 Albuterol/ Ipratropium (Duoneb) 3 ml Q2H RESP THERAPY PRN HHN WHEEZING AND RESP DISTRESS Last administered on 04/09/19 08:52; Admin Dose 3 ML; Start 03/29/19 at 18:00 Lorazepam (Ativan) 0.5 mg Q4H PRN IV AGITATION Last administered on 04/02/19 03:55; Admin Dose 0.5 MG; Start 03/29/19 at 18:00 IV Flush (NS 10 ml) 10 ml Q8 PRN IV IV PROTOCOL; Start 03/29/19 at 18:00 Labetalol HCl (Labetalol) 10 mg Q4H PRN IV sbp >160; Start 03/30/19 at 09:00 Haloperidol (Haldol) 5 mg Q6H PRN IM agitation Last administered on 03/31/19 00:10; Admin Dose 5 MG; Start 03/30/19 at 10:00 Heparin Sodium (Porcine) (Heparin (1000 Units/ml)) 3,200 unit AFTER DIALYSIS CATHETER Last administered on 04/08/19 11:16; Admin Dose 3,200 UNIT; Start 03/30/19 at 17:00 Atorvastatin Calcium (Lipitor) 40 mg HS NGT Last administered on 04/09/19 21:05; Admin Dose 40 MG; Start 03/31/19 at 21:00 Baclofen (Lioresal) 10 mg BID GTB Last administered on 04/10/19 09:43; Admin Dose 10 MG; Start 03/31/19 at 21:00 Doxazosin Mesylate (Cardura) 2 mg DAILY NGT Last administered on 04/10/19 10:01; Admin Dose 2 MG; Start 03/31/19 at 14:30 Gabapentin (Neurontin) 100 mg QHS PO Last administered on 04/09/19 21:05; Admin Dose 100 MG; Start 03/31/19 at 21:00 Losartan Potassium (Cozaar) 100 mg DAILY NGT Last administered on 04/10/19 10:07; Admin Dose 100 MG; Start 03/31/19 at 14:30 Sertraline HCl (Zoloft) 25 mg HS NGT Last administered on 04/09/19 21:06; Admin Dose 25 MG; Start 03/31/19 at 21:00 Acetaminophen (Tylenol Liquid) 650 mg Q4H PRN PEG MILD PAIN(1-3)OR ELEVATED TEMP Last administered on 03/31/19 16:31; Admin Dose 650 MG; Start 03/31/19 at 16:00 Insulin Aspart (Novolog Insulin Pen) NOVOLOG *MILD* ALGORI... Q6 SC Last administered on 04/10/19 05:36; Admin Dose 1 UNIT; Start 04/02/19 at 12:00 Lactobacillus Acidophilus/ Rhamnosus (Culturelle) 1 cap TID GTB Last administered on 04/10/19 09:43; Admin Dose 1 CAP; Start 04/02/19 at 13:00 Hydralazine HCl (Apresoline) 75 mg TID NGT Last administered on 04/10/19 10:08; Admin Dose 75 MG; Start 04/02/19 at 21:00 Epoetin [place]-epbx (Retacrit (Esrd)) 10,000 unit MoWeFr@1700 SC Last administered on 04/08/19 17:53; Admin Dose 10,000 UNIT; Start 04/03/19 at 19:30 Lansoprazole (Prevacid) 30 mg BID@0600,1800 GTB Last administered on 04/10/19 05:29; Admin Dose 30 MG; Start 04/04/19 at 18:00 Multivit/Ca Carb/ B Cmplx/FA/Prenat (Karena-Geovanni) 1 tab DAILY GTB Last adm inistered on 04/10/19 09:44; Admin Dose 1 TAB; Start 04/04/19 at 11:30 Aspirin (Aspirin) 81 mg DAILY PO Last administered on 04/10/19 09:47; Admin Dose 81 MG; Start 04/05/19 at 09:00 Clopidogrel Bisulfate (plaVIX) 75 mg DAILY GTB Last administered on 04/10/19 09:44; Admin Dose 75 MG; Start 04/07/19 at 09:00 Quetiapine Fumarate (Seroquel) 50 mg BID GTB Last administered on 04/10/19 09:50; Admin Dose 50 MG; Start 04/07/19 at 09:00 Propofol 100 ml @ 2.097 mls/ hr Q12H PRN IV AGITATION Last administered on 04/08/19 11:39; Admin Dose 6.291 MLS/HR; Start 04/08/19 at 00:00 Fentanyl 100 ml @ 2.5 mls/hr TITRATE IV Last administered on 04/09/19 21:14; Admin Dose 2.5 MLS/HR; Start 04/08/19 at 00:00 Midazolam HCl 50 ml @ 1 mls/hr TITRATE PRN IV agitation Last administered on 04/08/19 22:04; Admin Dose 3 MLS/HR; Start 04/08/19 at 00:00 Norepinephrine 250 ml @ 1.875 mls/ hr TITRATE IV Last administered on 04/08/19 22:04; Admin Dose 7.5 MLS/HR; Start 04/08/19 at 00:00 Vancomycin HCl (Vanco Iv Per Pharmacy) VANCOMYCIN PER PHARMACY PER PROTOCOL XX ; Start 04/08/19 at 00:30 Levetiracetam 100 ml @ 400 mls/hr Q12 IVPB Last administered on 04/10/19 09:45; Admin Dose 400 MLS/HR; Start 04/08/19 at 09:30 Nicardipine HCl 50 mg/Sodium Chloride 500 ml @ 50 mls/hr TITRATE IV ; Start 04/08/19 at 09:30 Piperacillin Sod/ Tazobactam Sod 50 ml @ 100 mls/hr Q8H IVPB Last administered on 04/10/19 05:29; Admin Dose 100 MLS/HR; Start 04/08/19 at 21:00 Mupirocin (Bactroban) 1 applic BID TOP Last administered on 04/10/19 09:51; Admin Dose 1 APPLIC; Start 04/09/19 at 21:00 Albuterol (Ventolin Hfa) 4 puff Q6H RESP THERAPY INH Last administered on 04/10/19 08:05; Admin Dose 4 PUFF; Start 04/10/19 at 02:00 Carvedilol (Coreg) 12.5 mg QID NGT Last administered on 04/10/19at 09:47; Admin Dose 12.5 MG; Start 04/10/19 at 09:00 Miscellaneous Information (*Rx Drug Level Order Reminder*) RANDOM VANCO LEVEL ... 0500 ONCE XX ; Start 04/13/19 at 05:00; Stop 04/13/19 at 05:01 Vancomycin HCl 250 ml @ 125 mls/hr ONCE IVPB Last administered on 04/10/19at 10:18; Admin Dose 125 MLS/HR; Start 04/10/19 at 10:00; Stop 04/10/19 at 23:59 VTE Prophylaxis Risk score (from Ns)>0 risk: 10 SCD applied (from Ns): Yes Lines/Catheters IV Catheter Type: Winters in Place: No Assessment/Plan Hospital Course Subjective Patient off pressors however still extremely agitated, intubated Objective Physical exam General: Patient is laying in bed intubated and sedated Mentation: Patient is not alert, Head: Normocephalic atraumatic Eyes: EOMI, pupils reactive to light Neck: Supple, nontender, midline Respiratory: Clear to auscultation bilaterally Cardiovascular: regular rate, no obvious murmurs Gastrointestinal: non-tender to palpation, bowel sounds heard. Neurological: Unable to assess Skin: No new skin lesions Assessment/Plan Acute hypoxic respiratory failure -Status post intubation, extubate when able -CT abdomen pelvis showing possible pneumonia which would make sense in this encephalopathic patient in the hospital -Broad-spectrum antibiotics -Treatment per pulmonology Septic shock -Secondary to likely pneumonia -Infectious disease consulted -Cultures taken, CT showing possibly distended bladder wall for cystitis however UTI is not necessarily revealing for infection -IV antibiotic Likely aspiration pneumonia -Would explain mild fever before as well as symptoms and [employer] that led to grey agudelo's intubation -IV antibiotic -Infectious disease on board Acute on chronic encephalopathy - still restless and trying to get out of bed. Continue Seroquel as needed - Neurology on board and appreciate recommendations. CT unrevealing -Use as needed medications. Hypertensive emergency-resolved for now - BP better controlled, hypotensive at the moment Severe anemia- - No active bleeding appreciated, however patient's hemoglobin will be closely monitored - EGD revealed moderate distal esophagitis and gastritis and duodenitis. Colonoscopy showed internal hemorrhoids - GI consultation appreciated. Will need repeat colonoscopy in 6 months - continue PPI Leukocytosis- -Possibly secondary to pneumonia, infectious disease on board, continue IV antibiotics Anemia -No signs of GI bleed, discussed with gastroenterology, will monitor for now Dysphasia -PEG tube ok for use per GI End-stage renal disease on hemodialysis - Nephrology on board and appreciate consultation. Continue HD Coronary artery disease status post CABG history - continue home medications - continue aspirin and Plavix Epilepsy - Continue Keppra History of CVA with residual left-sided deficit and more recent CVA 1 month ago - Patient reportedly had a new stroke approximately 1 month ago at [facility] which is the cause of patient's current encephalopathic state - After speaking with daughter, appears this is patient's baseline after leaving [facility] proximally 1 week ago. Patient suffered CVA and subsequent long stay in the ICU which required intubation and PEG tube. Patient almost required tracheostomy however appear to have been able to be weaned off the ventilator. - Neurology consultation appreciated BPH Disposition -Patient intubated in the ICU, likely secondary to septic shock secondary to pneumonia, infectious disease has been consulted, keep in ICU monitor closely -Patient may be difficult to extubate given history of poor extubation More than 40 minutes of critical care time has been spent on this encounter STEWART WINTER Apr 10, 2019 13:00
[2019-04-10] MEDS: ALBUMIN HUMAN 25% 100 ML IV PRN (16:01)
--- NOTE | 2019-04-10 16:20 | PN ---
Date/Time of Note Date/Time of Note DATE: 04/10/19 TIME: 16:07 Assessment/Plan VTE Prophylaxis Risk score (from [facility]0 risk: 10 SCD applied (from [facility]): Yes Pharmacological prophylaxis: other (scds) Lines/Catheters IV [facility]ter Type (from [facility] Urinary Cath still in place: No Assessment/Plan Hospital Course Assessment: Severe anemia-improved- hgb- 7.9 04/10/19- no overt signs of GI bleed -EGD 04/03/2019 Moderate distal esophagitis. Gastrostomy tube in place. Gastritis -biopsies are negative for H. pylori. Duodenitis. Colonoscopy 04/03/2019 8 sessile polyp in the cecum. Snared and retrieved. -Tubular adenoma 6 mm sessile polyp ascending colon. Snared and retrieved. -Tubular adenoma 6 mm sessile polyp sigmoid. Snared and retrieved. -Tubular adenoma 20 mm sessile polyp sigmoid. Saline assisted lipectomy plus localization tattoo. Moderate-sized internal hemorrhoids. 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 -Replaced with 18 [place] gastrostomy tube Coronary artery disease status post CABG history Epilepsy BPH Query aspiration PNA Plan: Repeat KUB with Gastrografin- Gastrostomy tube in the body of the stomach with contrast opacifying the stomach lumen.- The bowel gas pattern is nonobstructive Pt is currently not tolerating TF- Will restart TF at 10ml with plan to increase 10 10 ml every 12 hours Unable to start Reglan or Erythromycin- 2/2 to interactions with current medication regimen Patient seen in collaboration with Dr. Sanders Subjective: Course reviewed with nursing staff Patient interviewed and examined All labs, imaging and other results reviewed Pt remains intubated in ICU- Dialysis is currently on-going Abdomen is soft, with BS. No overt signs of GI bleed. PHYSICAL EXAMINATION: GENERAL: Well developed, well nourished, intubated SKIN: No lesions, g-tube in place NECK: Supple, no masses, thyroid normal CHEST: Inspection within normal limits. CARDIOVASCULAR: Heart: Regular rate and rhythm RESPIRATORY: Lungs clear to auscultation. GASTROINTESTINAL AND LIVER: Abdomen: Soft, , G-tube in place, non-distended,, no organomegaly, no ascites, no guarding, no rebound tenderness, normoactive bowel sounds. Rectal: Deferred. GENITOURINARY: Male genitalia within normal limits. EXTREMITIES: No cyanosis, clubbing or edema. Result Diagram: 04/10/19 0503 04/10/19 0503 Results 24hrs Laboratory Tests Test 04/09/19 18:03 04/10/19 00:23 04/10/19 05:03 04/10/19 05:32 Bedside Glucose 131 154 162 White Blood Count 12.2 H Red Blood Count 2.56 L Hemoglobin 7.9 L Hematocrit 24.3 L Mean Corpuscular Volume 94.9 Mean Corpuscular 30.9 Hemoglobin Mean Corpuscular 32.5 Hemoglobin Concent Red Cell Distribution 17.3 H Width Platelet Count 183 Mean Platelet Volume 11.0 H Immature Granulocytes % 0.500 H Neutrophils % 86.9 H Lymphocytes % 5.1 L Monocytes % 2.1 Eosinophils % 4.8 Basophils % 0.6 Nucleated Red Blood 0.0 Cells % Immature Granulocytes # 0.060 H Neutrophils # 10.6 H Lymphocytes # 0.6 L Monocytes # 0.3 Eosinophils # 0.6 H Basophils # 0.1 Nucleated Red Blood 0.0 Cells # Sodium Level 144 Potassium Level 4.2 Chloride Level 108 Carbon Dioxide Level 25 Anion Gap 11 Blood Urea Nitrogen 38 #H Creatinine 6.48 #H Glucose Level 154 Calcium Level 9.2 Phosphorus Level 3.8 Magnesium Level 2.3 Albumin 3.0 L Random Vancomycin Level 12.6 Test 04/10/19 12:02 04/10/19 13:10 Bedside Glucose 167 136 Exam/Review of Systems Exam Vitals Vital Signs Date Temp Pulse Resp B/P (MAP) Pulse Ox O2 O2 Flow FiO2 Time Delivery Rate 04/10/19 72 18 98 35 13:57 04/10/19 146/70 Mechanical 11:00 (95) Ventilator 04/10/19 99.7 07:47 04/07/19 15.0 23:37 Intake and Output 04/09/19 04/09/19 04/10/19 1414:59 22:59 06:59 IntakeIntake Total 599.717 ml 500.024 ml 211.5 ml OutputOutput Total 0 ml 15 ml 40 ml BalanceBalance 599.717 ml 485.024 ml 171.5 ml Results Results 24hrs Laboratory Tests Test 04/09/19 18:03 04/10/19 00:23 04/10/19 05:03 04/10/19 05:32 Bedside Glucose 131 154 162 White Blood Count 12.2 H Red Blood Count 2.56 L Hemoglobin 7.9 L Hematocrit 24.3 L Mean Corpuscular Volume 94.9 Mean Corpuscular 30.9 Hemoglobin Mean Corpuscular 32.5 Hemoglobin Concent Red Cell Distribution 17.3 H Width Platelet Count 183 Mean Platelet Volume 11.0 H Immature Granulocytes % 0.500 H Neutrophils % 86.9 H Lymphocytes % 5.1 L Monocytes % 2.1 Eosinophils % 4.8 Basophils % 0.6 Nucleated Red Blood 0.0 Cells % Immature Granulocytes # 0.060 H Neutrophils # 10.6 H Lymphocytes # 0.6 L Monocytes # 0.3 Eosinophils # 0.6 H Basophils # 0.1 Nucleated Red Blood 0.0 Cells # Sodium Level 144 Potassium Level 4.2 Chloride Level 108 Carbon Dioxide Level 25 Anion Gap 11 Blood Urea Nitrogen 38 #H Creatinine 6.48 #H Glucose Level 154 Calcium Level 9.2 Phosphorus Level 3.8 Magnesium Level 2.3 Albumin 3.0 L Random Vancomycin Level 12.6 Test 04/10/19 12:02 04/10/19 13:10 Bedside Glucose 167 136 Medications Medication Current Medications IV Flush (NS 3 ml) 3 ml PER PROTOCOL IV ; Start 03/29/19 at 13:30 Ondansetron HCl (Zofran Inj) 4 mg Q6H PRN IV NAUSEA/VOMITING Last administered on 04/07/19at 18:53; Admin Dose 4 MG; Start 03/29/19 at 13:30 Acetaminophen (Tylenol Tab) 650 mg Q6H PRN PO .PAIN 1-3 OR TEMP Last administered on 03/31/19at 05:48; Admin Dose 650 MG; Start 03/29/19 at 13:30 Hydralazine HCl (Apresoline) 10 mg Q4H PRN IV sbp >160 Last administered on 04/10/19at 02:35; Admin Dose 10 MG; Start 03/29/19 at 14:00 Miscellaneous Information 1 ea NOTE XX ; Start 03/29/19 at 14:30 Glucose (Glutose) 15 gm Q15M PRN PO DECREASED GLUCOSE; Start 03/29/19 at 14:30 Glucose (Glutose) 22.5 gm Q15M PRN PO DECREASED GLUCOSE; Start 03/29/19 at 14:30 Dextrose (D50w Syringe) 25 ml Q15M PRN IV DECREASED GLUCOSE; Start 03/29/19 at 14:30 Dextrose (D50w Syringe) 50 ml Q15M PRN IV DECREASED GLUCOSE; Start 03/29/19 at 14:30 Glucagon (Glucagen) 1 mg Q15M PRN IM DECREASED GLUCOSE; Start 03/29/19 at 14:30 Glucose (Glutose) 15 gm Q15M PRN BUCCAL DECREASED GLUCOSE; Start 03/29/19 at 14:30 Albumin Human 100 ml @ 100 mls/hr WITH DIALYSIS PRN IV SBP <90 DURING DIALYSIS Last administered on 04/10/19at 16:01; Admin Dose 100 MLS/HR; Start 03/29/19 at 17:00 Albuterol/ Ipratropium (Duoneb) 3 ml Q2H RESP THERAPY PRN HHN WHEEZING AND RESP DISTRESS Last administered on 04/09/19at 08:52; Admin Dose 3 ML; Start 03/29/19 at 18:00 Lorazepam (Ativan) 0.5 mg Q4H PRN IV AGITATION Last administered on 04/02/19at 03:55; Admin Dose 0.5 MG; Start 03/29/19 at 18:00 IV Flush (NS 10 ml) 10 ml Q8 PRN IV IV PROTOCOL; Start 03/29/19 at 18:00 Labetalol HCl (Labetalol) 10 mg Q4H PRN IV sbp >160; Start 03/30/19 at 09:00 Haloperidol (Haldol) 5 mg Q6H PRN IM agitation Last administered on 03/31/19at 00:10; Admin Dose 5 MG; Start 03/30/19 at 10:00 Heparin Sodium (Porcine) (Heparin (1000 Units/ml)) 3,200 unit AFTER DIALYSIS CATHETER Last administered on 04/08/19at 11:16; Admin Dose 3,200 UNIT; Start 03/30/19 at 17:00 Atorvastatin Calcium (Lipitor) 40 mg HS NGT Last administered on 04/09/19at 21:05; Admin Dose 40 MG; Start 03/31/19 at 21:00 Baclofen (Lioresal) 10 mg BID GTB Last administered on 04/10/19at 09:43; Admin Dose 10 MG; Start 03/31/19 at 21:00 Doxazosin Mesylate (Cardura) 2 mg DAILY NGT Last administered on 04/10/19 10:01; Admin Dose 2 MG; Start 03/31/19 at 14:30 Gabapentin (Neurontin) 100 mg QHS PO Last administered on 04/09/19 21:05; Admin Dose 100 MG; Start 03/31/19 at 21:00 Losartan Potassium (Cozaar) 100 mg DAILY NGT Last administered on 04/10/19 10:07; Admin Dose 100 MG; Start 03/31/19 at 14:30 Sertraline HCl (Zoloft) 25 mg HS NGT Last administered on 04/09/19 21:06; Admin Dose 25 MG; Start 03/31/19 at 21:00 Acetaminophen (Tylenol Liquid) 650 mg Q4H PRN PEG MILD PAIN(1-3)OR ELEVATED TEMP Last administered on 03/31/19 16:31; Admin Dose 650 MG; Start 03/31/19 at 16:00 Insulin Aspart (Novolog Insulin Pen) NOVOLOG *MILD* ALGORI... Q6 SC Last administered on 04/10/19 05:36; Admin Dose 1 UNIT; Start 04/02/19 at 12:00 Lactobacillus Acidophilus/ Rhamnosus (Culturelle) 1 cap TID GTB Last administered on 04/10/19 13:07; Admin Dose 1 CAP; Start 04/02/19 at 13:00 Hydralazine HCl (Apresoline) 75 mg TID NGT Last administered on 04/10/19 13:07; Admin Dose 75 MG; Start 04/02/19 at 21:00 Epoetin [place]-epbx (Retacrit (Esrd)) 10,000 unit MoWeFr@1700 SC Last administered on 04/08/19 17:53; Admin Dose 10,000 UNIT; Start 04/03/19 at 19:30 Lansoprazole (Prevacid) 30 mg BID@0600,1800 GTB Last administered on 04/10/19 05:29; Admin Dose 30 MG; Start 04/04/19 at 18:00 Multivit/Ca Carb/ B Cmplx/FA/Prenat (Karena-Geovanni) 1 tab DAILY GTB Last administered on 04/10/19 09:44; Admin Dose 1 TAB; Start 04/04/19 at 11:30 Aspirin (Aspirin) 81 mg DAILY PO Last administered on 04/10/19 09:47; Admin Dose 81 MG; Start 04/05/19 at 09:00 Clopidogrel Bisulfate (plaVIX) 75 mg DAILY GTB Last administered on 04/10/19 09:44; Admin Dose 75 MG; Start 04/07/19 at 09:00 Quetiapine Fumarate (Seroquel) 50 mg BID GTB Last administered on 04/10/19 09:50; Admin Dose 50 MG; Start 04/07/19 at 09:00 Propofol 100 ml @ 2.097 mls/ hr Q12H PRN IV AGITATION Last administered on 04/08/19 11:39; Admin Dose 6.291 MLS/HR; Start 04/08/19 at 00:00 Fentanyl 100 ml @ 2.5 mls/hr TITRATE IV Last administered on 04/09/19 21:14; Admin Dose 2.5 MLS/HR; Start 04/08/19 at 00:00 Midazolam HCl 50 ml @ 1 mls/hr TITRATE PRN IV agitation Last administered on 04/08/19 22:04; Admin Dose 3 MLS/HR; Start 04/08/19 at 00:00 Norepinephrine 250 ml @ 1.875 mls/ hr TITRATE IV Last administered on 04/08/19 22:04; Admin Dose 7.5 MLS/HR; Start 04/08/19 at 00:00 Vancomycin HCl (Vanco Iv Per Pharmacy) VANCOMYCIN PER PHARMACY PER PROTOCOL XX ; Start 04/08/19 at 00:30 Levetiracetam 100 ml @ 400 mls/hr Q12 IVPB Last administered on 04/10/19 09:45; Admin Dose 400 MLS/HR; Start 04/08/19 at 09:30 Nicardipine HCl 50 mg/Sodium Chloride 500 ml @ 50 mls/hr TITRATE IV ; Start 04/08/19 at 09:30 Piperacillin Sod/ Tazobactam Sod 50 ml @ 100 mls/hr Q8H IVPB Last administered on 04/10/19 13:06; Admin Dose 100 MLS/HR; Start 04/08/19 at 21:00 Mupirocin (Bactroban) 1 applic BID TOP Last administered on 04/10/19at 09:51; Admin Dose 1 APPLIC; Start 04/09/19 at 21:00 Albuterol (Ventolin Hfa) 4 puff Q6H RESP THERAPY INH Last administered on 04/10/19at 15:00; Admin Dose 4 PUFF; Start 04/10/19 at 02:00 Carvedilol (Coreg) 12.5 mg QID NGT Last administered on 04/10/19at 13:04; Admin Dose 12.5 MG; Start 04/10/19 at 09:00 Miscellaneous Information (*Rx Drug Level Order Reminder*) RANDOM VANCO LEVEL ... 0500 ONCE XX ; Start 04/13/19 at 05:00; Stop 04/13/19 at 05:01 Vancomycin HCl 250 ml @ 125 mls/hr ONCE IVPB Last administered on 04/10/19at 10:18; Admin Dose 125 MLS/HR; Start 04/10/19 at 10:00; Stop 04/10/19 at 23:59 JUNE LEE Apr 10, 2019 16:20
[2019-04-10] MEDS: FENTAnyl (DRIP) 1000 mcg/100mL 100 ML IV SCH (17:25)
[2019-04-10] MEDS: HEPARIN 1000 UNITS/ML 10 ML INJ CATHETER SCH (18:31)
[2019-04-10] MEDS: EPOETIN ALFA-EPBX (ESRD) 10,000 UNIT/ML VIAL SC SCH (21:52)
[2019-04-10] MEDS: ATORVASTATIN 40 MG TAB NGT SCH (21:53)
[2019-04-10] MEDS: GABAPENTIN 100 MG CAP PO SCH (21:53)
[2019-04-10] MEDS: SERTRALINE 50 MG TAB NGT SCH (21:59)
[2019-04-11] VITALS (51 sets, daily range): BP systolic 90–142; BP diastolic 51–81; PULSE 63–125; RESP 0–23
[2019-04-11] MEDS: ALBUTEROL HFA 8 GM INHALER INH SCH ×4 (01:20→19:22)
[2019-04-11] MEDS: LANSOPRAZOLE 30 MG CAP GTB SCH ×2 (05:14→18:38)
[2019-04-11] MEDS: ACETAMINOPHEN 650MG/20.3ML CUP PEG PRN (05:14)
[2019-04-11] MEDS: PIPER-TAZO 2.25 GM/NS 50 ML IVPB SCH ×3 (05:14→21:55)
[2019-04-11] MEDS: INSULIN ASPART [NOVOLOG] 3 ML PEN SC SCH ×4 (06:00→18:00)
--- NOTE | 2019-04-11 08:18 | CONS ---
Assessment/Plan Assessment/Plan Assessment/Plan (Daily) Family members were at patient's bedside last night according to nursing notes were not available at the time I was in the intensive care unit. Family members were updated concerning patient's current critical condition. Reviewing notes this morning from April 11, 2019 patient aspirated overnight tube feedings were discontinued. In view of this as well as other comorbid and acute medical problems patient's overall prognosis considerably worse. Will contact family members patient is a full code Consultation Date/Type/Reason Admit Date/Time Mar 29, 2019 at 13:16 Date/Time of Note DATE: 04/11/19 TIME: 08:17 Hx of Present Illness Post dated note This patient is a 58-year-old male sent in from a dialysis center four mental status changes. Given a complete database apparently patient was given a benzodiazepine at the facility after he became extremely agitated was also given Zyprexa. According to medical records patient's mental status has been altered for a few days prior to this presentation. Patient admitted for observation initially. Comorbid medical problems include end-stage renal disease on hemodialysis, coronary heart disease status post coronary artery bypass graft, seizure disorder, has history of CVA left-sided deficit. The submission patient has require intubation secondary to respiratory failure secondary to hospital acquired pneumonia, septic shock, worsening of his mental status changes.significant past medical history that patient the recent hospitalization at [facility] for new CVA and was admitted to the intensive care unit require intubation peg tube placement. Patient is requiring presser support, requires Versed dripBruce. Neurology consultation pending. Patient overall prognosis is extremely poor Past Medical History Medical History: congestive heart failure, coronary artery disease, high cholesterol, hypertension, other (ESRD on HD ) Home Meds Reported Medications Bisacodyl (Dulcolax) 10 Mg Supp.rect, 10 MG RC DAILY PRN for CONSTIPATION, SUPP.RECT 03/29/19 Sodium Phosphate,[place]-Dibasic (Enema Ready To Use) 133 Ml Enema, 133 ML RC EVERY 2 DAYS PRN for CONSTIPATION, ENEMA 03/29/19 Acetaminophen* (Acetaminophen*) 650 Mg Tablet, 650 MG GTB Q4 PRN for MILD PAIN LEVEL 1-3, #30 TAB AND FEVER 03/29/19 Acetaminophen* (Acetaminophen*) 500 MG Extra Strength Tablet, 1000 MG GTB Q4H PRN for MODERATE PAIN LEVEL 4-6, TAB 03/29/19 Acetaminophen* (Acetaminophen*) 500 MG Extra Strength Tablet, 1000 MG GTB BID PRN for GENERAL BODY PAIN, TAB 03/29/19 Amino Acids/Protein Hydrolys (Pro-Stat Awc Liquid) 30 Ml Liquid, 30 ML GTB DAILY SUGAR FREE 03/29/19 Multivitamin* (Daily Value*) 1 Each Tablet, 1 TAB GTB DAILY, TAB 03/29/19 Ascorbic Acid* (Vitamin C*) 500 Mg Capsule.sa, 500 MG GTB DAILY, CAP 03/29/19 Ferrous Sulfate (Ferrous Sulfate) 300 Mg/5 Ml Liquid, 325 MG GTB DAILY 03/29/19 Cran/Vitc/Mannose/Inulin/Brom (Uti-Stat Liquid) 3,875 Mg/30 Ml Liquid, 3875 MG GTB DAILY 03/29/19 Cranberry Extract (Cranberry) 425 Mg Capsule, 425 MG GTB DAILY, CAP 03/29/19 Insulin Glulisine (Apidra Solostar) 100 Unit/1 Ml Insuln.pen, 4 UNIT SQ TIDM A, #1 TUB 03/29/19 Insulin Glargine,Hum.rec.anlog (Basaglar Kwikpen U-100) 100 Unit/1 Ml Insuln.pen, 25 UNIT SC QHS, EA 03/29/19 Insulin Regular, Human (Humulin R) 100 Unit/1 Ml Vial, 0 IJ AC MEALS AND BEDTIME, VIAL 0-150 = 0 UNIT 151-200 = 1 UNIT 201-250 = 2 UNITS 251-300 = 3 UNITS 301-350 = 4 UNITS 351-400 = 5 UNITS OVER 400 GIVE 6 UNITS UNDER 70 OR OVER 400 NOTIFY 03/29/19 Sertraline Hcl* (Sertraline Hcl*) 25 Mg Tablet, 25 MG GTB DAILY, #30 TAB 03/29/19 Lorazepam* (Ativan*) 0.5 Mg Tablet, 0.5 MG GTB DAILY PRN for ANXIETY, #30 TAB 03/29/19 Quetiapine Fumarate* (Seroquel*) 25 Mg Tablet, 25 MG GTB HS, #30 TAB 03/29/19 Lorazepam* (Lorazepam*) 0.5 Mg Tablet, 0.5 MG GTB DAILY PRN for ANXIETY, TAB 03/29/19 Clonidine Hcl* (Clonidine Hcl*) 0.1 Mg Tab, 0.1 MG GTB DAILY PRN for ELEVATED B LOOD PRESSURE, TAB SBP >160 03/29/19 Azelastine Hcl* (Azelastine Hcl*) 137 Mcg/0.137 Ml [place].pump, 2 SPRAYS NASAL BID, #1 EA TO EACH NOSTRIL 03/29/19 Carvedilol* (Carvedilol*) 12.5 Mg Tablet, 12.5 MG GTB BID, #60 TAB 03/29/19 Diltiazem Hcl* (Cardizem CD*) 240 Mg Cap.sr.24h, 240 MG GTB DAILY, #30 CAP 03/29/19 Ergocalciferol (Vitamin D2) (VITAMIN D2) 50,000 Unit Capsule, 90943 UNIT GTB EVERY MONDAY, CAP 03/29/19 Hydralazine Hcl* (Hydralazine Hcl*) 50 Mg Tab, 50 MG GTB TID PRN for ELEVATED BLOOD PRESSURE, #60 TAB 03/29/19 Losartan Potassium* (Losartan Potassium*) 100 Mg Tablet, 100 MG GTB DAILY, TAB 03/29/19 Metoprolol Succinate* (Toprol XL*) 25 Mg Tab.sr.24h, 25 MG GTB DAILY, #30 TAB 03/29/19 Linagliptin (TRADJENTA) 5 Mg Tablet, 5 MG GTB DAILY, TAB 03/29/19 Albuterol Sulfate* (Proair HFA*) 8.5 Gm Hfa.aer.ad, 2 PUFF INH Q4H PRN for WHEEZING AND SOB, #1 INHALER 03/29/19 Ranitidine Hcl* (Ranitidine Hcl*) 300 Mg Tablet, 300 MG GTB HS, #30 TAB 03/29/19 Levetiracetam* (Keppra*) 500 Mg Tablet, 500 MG GTB BID, TAB 03/29/19 Gabapentin* (Gabapentin*) 100 Mg Capsule, 100 MG GTB QHS, #90 CAP 03/29/19 Doxazosin Mesylate* (Doxazosin Mesylate*) 2 Mg Tablet, 2 MG GTB HS, TAB 03/29/19 Docusate Sodium* (Dok*) 100 Mg Tablet, 100 MG GTB BID, #60 CAP 03/29/19 Cyanocobalamin (Vitamin B-12) (Cyanocobalamin Injection) 1,000 Mcg/1 Ml Vial, 1000 MCG IJ EVERY MONDAY, VIAL 03/29/19 Clopidogrel Bisulfate (Clopidogrel) 75 Mg Tablet, 75 MG GTB DAILY, #30 TAB 03/29/19 Calcium Carbonate (Oysco-500) 500 Mg Tablet, 500 MG GTB DAILY, TAB 03/29/19 Baclofen* (Baclofen*) 10 Mg Tablet, 10 MG GTB BID, TAB 03/29/19 Atorvastatin* (Atorvastatin*) 40 Mg Tablet, 40 MG GTB QHS, #30 TAB 03/29/19 Aspirin (Low Dose Aspirin) 81 Mg Tablet.dr, 81 MG GTB DAILY, #30 TAB 03/29/19 Medications Current Medications IV Flush (NS 3 ml) 3 ml PER PROTOCOL IV ; Start 03/29/19 at 13:30 Ondansetron HCl (Zofran Inj) 4 mg Q6H PRN IV NAUSEA/VOMITING Last administered on 04/07/19at 18:53; Admin Dose 4 MG; Start 03/29/19 at 13:30 Acetaminophen (Tylenol Tab) 650 mg Q6H PRN PO .PAIN 1-3 OR TEMP Last administered on 03/31/19at 05:48; Admin Dose 650 MG; Start 03/29/19 at 13:30 Hydralazine HCl (Apresoline) 10 mg Q4H PRN IV sbp >160 Last administered on 04/10/19at 02:35; Admin Dose 10 MG; Start 03/29/19 at 14:00 Miscellaneous Information 1 ea NOTE XX ; Start 03/29/19 at 14:30 Glucose (Glutose) 15 gm Q15M PRN PO DECREASED GLUCOSE; Start 03/29/19 at 14:30 Glucose (Glutose) 22.5 gm Q15M PRN PO DECREASED GLUCOSE; Start 03/29/19 at 14:30 Dextrose (D50w Syringe) 25 ml Q15M PRN IV DECREASED GLUCOSE; Start 03/29/19 at 14:30 Dextrose (D50w Syringe) 50 ml Q15M PRN IV DECREASED GLUCOSE; Start 03/29/19 at 14:30 Glucagon (Glucagen) 1 mg Q15M PRN IM DECREASED GLUCOSE; Start 03/29/19 at 14:30 Glucose (Glutose) 15 gm Q15M PRN BUCCAL DECREASED GLUCOSE; Start 03/29/19 at 14:30 Albumin Human 100 ml @ 100 mls/hr WITH DIALYSIS PRN IV SBP <90 DURING DIALYSIS Last administered on 04/10/19 16:01; Admin Dose 100 MLS/HR; Start 03/29/19 at 17:00 Albuterol/ Ipratropium (Duoneb) 3 ml Q2H RESP THERAPY PRN HHN WHEEZING AND RESP DISTRESS Last administered on 04/09/19 08:52; Admin Dose 3 ML; Start 03/29/19 at 18:00 Lorazepam (Ativan) 0.5 mg Q4H PRN IV AGITATION Last administered on 04/02/19 03:55; Admin Dose 0.5 MG; Start 03/29/19 at 18:00 IV Flush (NS 10 ml) 10 ml Q8 PRN IV IV PROTOCOL; Start 03/29/19 at 18:00 Labetalol HCl (Labetalol) 10 mg Q4H PRN IV sbp >160; Start 03/30/19 at 09:00 Haloperidol (Haldol) 5 mg Q6H PRN IM agitation Last administered on 03/31/19 00:10; Admin Dose 5 MG; Start 03/30/19 at 10:00 Heparin Sodium (Porcine) (Heparin (1000 Units/ml)) 3,200 unit AFTER DIALYSIS CATHETER Last administered on 04/10/19 18:31; Admin Dose 3,200 UNIT; Start 03/30/19 at 17:00 Atorvastatin Calcium (Lipitor) 40 mg HS NGT Last administered on 04/10/19 21:5 3; Admin Dose 40 MG; Start 03/31/19 at 21:00 Baclofen (Lioresal) 10 mg BID GTB Last administered on 04/10/19 21:50; Admin Dose 10 MG; Start 03/31/19 at 21:00 Doxazosin Mesylate (Cardura) 2 mg DAILY NGT Last administered on 04/10/19 10:01; Admin Dose 2 MG; Start 03/31/19 at 14:30 Gabapentin (Neurontin) 100 mg QHS PO Last administered on 04/10/19 21:53; Admin Dose 100 MG; Start 03/31/19 at 21:00 Losartan Potassium (Cozaar) 100 mg DAILY NGT Last administered on 04/10/19 10:07; Admin Dose 100 MG; Start 03/31/19 at 14:30 Sertraline HCl (Zoloft) 25 mg HS NGT Last administered on 04/10/19 21:59; Admin Dose 25 MG; Start 03/31/19 at 21:00 Acetaminophen (Tylenol Liquid) 650 mg Q4H PRN PEG MILD PAIN(1-3)OR ELEVATED TEMP Last administered on 04/11/19 05:14; Admin Dose 650 MG; Start 03/31/19 at 1 6:00 Insulin Aspart (Novolog Insulin Pen) NOVOLOG *MILD* ALGORI... Q6 SC Last administered on 04/10/19 05:36; Admin Dose 1 UNIT; Start 04/02/19 at 12:00 Lactobacillus Acidophilus/ Rhamnosus (Culturelle) 1 cap TID GTB Last administered on 04/10/19 22:00; Admin Dose 1 CAP; Start 04/02/19 at 13:00 Hydralazine HCl (Apresoline) 75 mg TID NGT Last administered on 04/10/19 21:50; Admin Dose 75 MG; Start 04/02/19 at 21:00 Epoetin [place]-epbx (Retacrit (Esrd)) 10,000 unit MoWeFr@1700 SC Last administer ed on 04/10/19 21:52; Admin Dose 10,000 UNIT; Start 04/03/19 at 19:30 Lansoprazole (Prevacid) 30 mg BID@0600,1800 GTB Last administered on 04/11/19 05:14; Admin Dose 30 MG; Start 04/04/19 at 18:00 Multivit/Ca Carb/ B Cmplx/FA/Prenat (Karena-Geovanni) 1 tab DAILY GTB Last administered on 04/10/19 09:44; Admin Dose 1 TAB; Start 04/04/19 at 11:30 Aspirin (Aspirin) 81 mg DAILY PO Last administered on 04/10/19 09:47; Admin Dose 81 MG; Start 04/05/19 at 09:00 Clopidogrel Bisulfate (plaVIX) 75 mg DAILY GTB Last administered on 04/10/19 09:44; Admin Dose 75 MG; Start 04/07/19 at 09:00 Quetiapine Fumarate (Seroquel) 50 mg BID GTB Last administered on 04/10/19 21:59; Admin Dose 50 MG; Start 04/07/19 at 09:00 Propofol 100 ml @ 2.097 mls/ hr Q12H PRN IV AGITATION Last administered on 04/08/19 11:39; Admin Dose 6.291 MLS/HR; Start 04/08/19 at 00:00 Fentanyl 100 ml @ 2.5 mls/hr TITRATE IV Last administered on 04/10/19 17:25; Admin Dose 5 MLS/HR; Start 04/08/19 at 00:00 Midazolam HCl 50 ml @ 1 mls/hr TITRATE PRN IV agitation Last administered on 04/08/19 22:04; Admin Dose 3 MLS/HR; Start 04/08/19 at 00:00 Norepinephrine 250 ml @ 1.875 mls/ hr TITRATE IV Last administered on 04/08/19 22:04; Admin Dose 7.5 MLS/HR; Start 04/08/19 at 00:00 Vancomycin HCl (Vanco Iv Per Pharmacy) VANCOMYCIN PER PHARMACY PER PROTOCOL XX ; Start 04/08/19 at 00:30 Levetiracetam 100 ml @ 400 mls/hr Q12 IVPB Last administered on 04/10/19 21:48; Admin Dose 400 MLS/HR; Start 04/08/19 at 09:30 Nicardipine HCl 50 mg/Sodium Chloride 500 ml @ 50 mls/hr TITRATE IV ; Start 04/08/19 at 09:30 Piperacillin Sod/ Tazobactam Sod 50 ml @ 100 mls/hr Q8H IVPB Last administered on 04/11/19 05:14; Admin Dose 100 MLS/HR; Start 04/08/19 at 21:00 Mupirocin (Bactroban) 1 applic BID TOP Last administered on 04/10/19 21:49; Admin Dose 1 APPLIC; Start 04/09/19 at 21:00 Albuterol (Ventolin Hfa) 4 puff Q6H RESP THERAPY INH Last administered on 04/11/19 07:57; Admin Dose 4 PUFF; Start 04/10/19 at 02:00 Carvedilol (Coreg) 12.5 mg QID NGT Last administered on 04/10/19 21:51; Admin Dose 12.5 MG; Start 04/10/19 at 09:00 Miscellaneous Information (*Rx Drug Level Order Reminder*) RANDOM VANCO LEVEL ... 0500 ONCE XX ; Start 04/13/19 at 05:00; Stop 04/13/19 at 05:01 Allergies: Coded Allergies: No Known Drug Allergies (Unverified Allergy, Unknown, 05/31/18) Past Surgical History Past Surgical Hx: coronary bypass surgery, other (Right chest permacath ) Social History Alcohol Use: none Smoking Status: Never smoker Drug Use: none Exam/Review of Systems Exam Vitals Vital Signs Date Temp Pulse Resp B/P (MAP) Pulse Ox O2 O2 Flow FiO2 Time Delivery Rate 04/11/19 76 111/62 95 Mechanical 06:00 (78) Ventilator 04/11/19 99.4 05:59 04/11/19 18 30 05:07 04/07/19 15.0 23:37 Intake and Output 04/10/19 04/10/19 04/11/19 1515:00 23:00 07:00 IntakeIntake Total 258.930 ml 187.5 ml 139.5 ml OutputOutput Total 2865 ml 0 ml BalanceBalance 258.930 ml -2677.5 ml 139.5 ml Results Result Diagram: 04/11/19 0430 04/11/19 0432 Results 24hrs Laboratory Tests Test 04/10/19 12:02 04/10/19 13:10 04/10/19 17:28 04/11/19 00:01 Bedside Glucose 167 136 122 138 Test 04/11/19 04:30 04/11/19 04:32 04/11/19 05:16 White Blood Count 7.4 # Red Blood Count 2.53 L Hemoglobin 7.6 L Hematocrit 23.7 L Mean Corpuscular Volume 93.7 Mean Corpuscular 30.0 Hemoglobin Mean Corpuscular 32.1 Hemoglobin Concent Red Cell Distribution 16.9 H Width Platelet Count 155 Mean Platelet Volume 10.5 H Immature Granulocytes % 0.900 H Neutrophils % 80.0 H Lymphocytes % 9.4 L Monocytes % 4.4 Eosinophils % 5.0 Basophils % 0.3 Nucleated Red Blood 0.0 Cells % Immature Granulocytes # 0.070 H Neutrophils # 5.9 Lymphocytes # 0.7 L Monocytes # 0.3 Eosinophils # 0.4 Basophils # 0.0 Nucleated Red Blood 0.0 Cells # Sodium Level 140 Potassium Level 3.4 L Chloride Level 102 Carbon Dioxide Level 28 Anion Gap 10 Blood Urea Nitrogen 19 # Creatinine 3.77 #H Est Glomerular Filtrat 17 L Rate mL/min Glucose Level 117 Calcium Level 9.0 Phosphorus Level 2.2 #L Magnesium Level 2.1 Bedside Glucose 127 Medications Medication Current Medications IV Flush (NS 3 ml) 3 ml PER PROTOCOL IV ; Start 03/29/19 at 13:30 Ondansetron HCl (Zofran Inj) 4 mg Q6H PRN IV NAUSEA/VOMITING Last administered on 04/07/19at 18:53; Admin Dose 4 MG; Start 03/29/19 at 13:30 Acetaminophen (Tylenol Tab) 650 mg Q6H PRN PO .PAIN 1-3 OR TEMP Last administered on 03/31/19at 05:48; Admin Dose 650 MG; Start 03/29/19 at 13:30 Hydralazine HCl (Apresoline) 10 mg Q4H PRN IV sbp >160 Last administered on 04/10/19at 02:35; Admin Dose 10 MG; Start 03/29/19 at 14:00 Miscellaneous Information 1 ea NOTE XX ; Start 03/29/19 at 14:30 Glucose (Glutose) 15 gm Q15M PRN PO DECREASED GLUCOSE; Start 03/29/19 at 14:30 Glucose (Glutose) 22.5 gm Q15M PRN PO DECREASED GLUCOSE; Start 03/29/19 at 14:30 Dextrose (D50w Syringe) 25 ml Q15M PRN IV DECREASED GLUCOSE; Start 03/29/19 at 14:30 Dextrose (D50w Syringe) 50 ml Q15M PRN IV DECREASED GLUCOSE; Start 03/29/19 at 14:30 Glucagon (Glucagen) 1 mg Q15M PRN IM DECREASED GLUCOSE; Start 03/29/19 at 14:30 Glucose (Glutose) 15 gm Q15M PRN BUCCAL DECREASED GLUCOSE; Start 03/29/19 at 14:30 Albumin Human 100 ml @ 100 mls/hr WITH DIALYSIS PRN IV SBP <90 DURING DIALYSIS Last administered on 04/10/19at 16:01; Admin Dose 100 MLS/HR; Start 03/29/19 at 17:00 Albuterol/ Ipratropium (Duoneb) 3 ml Q2H RESP THERAPY PRN HHN WHEEZING AND RESP DISTRESS Last administered on 04/09/19 08:52; Admin Dose 3 ML; Start 03/29/19 at 18:00 Lorazepam (Ativan) 0.5 mg Q4H PRN IV AGITATION Last administered on 04/02/19 03:55; Admin Dose 0.5 MG; Start 03/29/19 at 18:00 IV Flush (NS 10 ml) 10 ml Q8 PRN IV IV PROTOCOL; Start 03/29/19 at 18:00 Labetalol HCl (Labetalol) 10 mg Q4H PRN IV sbp >160; Start 03/30/19 at 09:00 Haloperidol (Haldol) 5 mg Q6H PRN IM agitation Last administered on 03/31/19 00:10; Admin Dose 5 MG; Start 03/30/19 at 10:00 Heparin Sodium (Porcine) (Heparin (1000 Units/ml)) 3,200 unit AFTER DIALYSIS CATHETER Last administered on 04/10/19 18:31; Admin Dose 3,200 UNIT; Start 03/30/19 at 17:00 Atorvastatin Calcium (Lipitor) 40 mg HS NGT Last administered on 04/10/19 21:53; Admin Dose 40 MG; Start 03/31/19 at 21:00 Baclofen (Lioresal) 10 mg BID GTB Last administered on 04/10/19 21:50; Admin Dose 10 MG; Start 03/31/19 at 21:00 Doxazosin Mesylate (Cardura) 2 mg DAILY NGT Last administered on 04/10/19 10:01; Admin Dose 2 MG; Start 03/31/19 at 14:30 Gabapentin (Neurontin) 100 mg QHS PO Last administered on 04/10/19 21:53; Admin Dose 100 MG; Start 03/31/19 at 21:00 Losartan Potassium (Cozaar) 100 mg DAILY NGT Last administered on 04/10/19 10 :07; Admin Dose 100 MG; Start 03/31/19 at 14:30 Sertraline HCl (Zoloft) 25 mg HS NGT Last administered on 04/10/19 21:59; Admin Dose 25 MG; Start 03/31/19 at 21:00 Acetaminophen (Tylenol Liquid) 650 mg Q4H PRN PEG MILD PAIN(1-3)OR ELEVATED TEMP Last administered on 04/11/19 05:14; Admin Dose 650 MG; Start 03/31/19 at 16:00 Insulin Aspart (Novolog Insulin Pen) NOVOLOG *MILD* ALGORI... Q6 SC Last administered on 04/10/19 05:36; Admin Dose 1 UNIT; Start 04/02/19 at 12:00 Lactobacillus Acidophilus/ Rhamnosus (Culturelle) 1 cap TID GTB Last administered on 04/10/19 22:00; Admin Dose 1 CAP; Start 04/02/19 at 13:00 Hydralazine HCl (Apresoline) 75 mg TID NGT Last administered on 04/10/19 21:50; Admin Dose 75 MG; Start 04/02/19 at 21:00 Epoetin [place]-epbx (Retacrit (Esrd)) 10,000 unit MoWeFr@1700 SC Last administered on 04/10/19 21:52; Admin Dose 10,000 UNIT; Start 04/03/19 at 19:30 Lansoprazole (Prevacid) 30 mg BID@0600,1800 GTB Last administered on 04/11/19 05:14; Admin Dose 30 MG; Start 04/04/19 at 18:00 Multivit/Ca Carb/ B Cmplx/FA/Prenat (Karena-Geovanni) 1 tab DAILY GTB Last administer ed on 04/10/19 09:44; Admin Dose 1 TAB; Start 04/04/19 at 11:30 Aspirin (Aspirin) 81 mg DAILY PO Last administered on 04/10/19 09:47; Admin Dose 81 MG; Start 04/05/19 at 09:00 Clopidogrel Bisulfate (plaVIX) 75 mg DAILY GTB Last administered on 04/10/19 09:44; Admin Dose 75 MG; Start 04/07/19 at 09:00 Quetiapine Fumarate (Seroquel) 50 mg BID GTB Last administered on 04/10/19 21:59; Admin Dose 50 MG; Start 04/07/19 at 09:00 Propofol 100 ml @ 2.097 mls/ hr Q12H PRN IV AGITATION Last administered on 04/08/19 11:39; Admin Dose 6.291 MLS/HR; Start 04/08/19 at 00:00 Fentanyl 100 ml @ 2.5 mls/hr TITRATE IV Last administered on 04/10/19 17:25; Admin Dose 5 MLS/HR; Start 04/08/19 at 00:00 Midazolam HCl 50 ml @ 1 mls/hr TITRATE PRN IV agitation Last administered on 04/08/19 22:04; Admin Dose 3 MLS/HR; Start 04/08/19 at 00:00 Norepinephrine 250 ml @ 1.875 mls/ hr TITRATE IV Last administered on 04/08/19 22:04; Admin Dose 7.5 MLS/HR; Start 04/08/19 at 00:00 Vancomycin HCl (Vanco Iv Per Pharmacy) VANCOMYCIN PER PHARMACY PER PROTOCOL XX ; Start 04/08/19 at 00:30 Levetiracetam 100 ml @ 400 mls/hr Q12 IVPB Last administered on 04/10/19 21:48; Admin Dose 400 MLS/HR; Start 04/08/19 at 09:30 Nicardipine HCl 50 mg/Sodium Chloride 500 ml @ 50 mls/hr TITRATE IV ; Start 04/08/19 at 09:30 Piperacillin Sod/ Tazobactam Sod 50 ml @ 100 mls/hr Q8H IVPB Last administered on 04/11/19 05:14; Admin Dose 100 MLS/HR; Start 04/08/19 at 21:00 Mupirocin (Bactroban) 1 applic BID TOP Last administered on 04/10/19 21:49; Admin Dose 1 APPLIC; Start 04/09/19 at 21:00 Albuterol (Ventolin Hfa) 4 puff Q6H RESP THERAPY INH Last administered on 04/11/19 07:57; Admin Dose 4 PUFF; Start 04/10/19 at 02:00 Carvedilol (Coreg) 12.5 mg QID NGT Last administered on 04/10/19 21:51; Admin Dose 12.5 MG; Start 04/10/19 at 09:00 Miscellaneous Information (*Rx Drug Level Order Reminder*) RANDOM VANCO LEVEL ... 0500 ONCE XX ; Start 04/13/19 at 05:00; Stop 04/13/19 at 05:01 BRENNON GOMEZ Apr 11, 2019 08:18
[2019-04-11] MEDS: QUETIAPINE 25 MG TAB GTB SCH ×2 (08:45→21:45)
[2019-04-11] MEDS: BACLOFEN 10 MG TAB GTB SCH ×2 (08:45→21:55)
[2019-04-11] MEDS: CLOPIDOGREL 75 MG TAB GTB SCH (08:45)
[2019-04-11] MEDS: MULTIVIT/CA CARB/B CMPLX/FA TAB GTB SCH (08:45)
[2019-04-11] MEDS: LACTOBACILLUS RHAMNOSUS CAP GTB SCH ×3 (08:45→21:55)
[2019-04-11] MEDS: DOXAZOSIN 2 MG TAB NGT SCH (08:46)
[2019-04-11] MEDS: ASPIRIN 81 MG TAB PO SCH (08:46)
[2019-04-11] MEDS: LOSARTAN 50 MG TAB NGT SCH (09:00)
--- NOTE | 2019-04-11 09:06 | CONS ---
Assessment/Plan Assessment/Plan Hospital Course (Demo Recall) ID PROGRESS NOTE CURRENT ABX: DAY # =>Vanco IV + Zosyn 04/11/19 0430 04/11/19 0432 24H INTERVAL SUMMARY * Non-communicative, orally intubated on mechanical ventilation -- chart reviewed * Indwelling's: Endotracheal tube right chest permacath, PEG, Winters, PICC line DIAGNOSTIC IMAGING * 04/11/19 CXR: IMPRESSION:Calcified atherosclerosis in the aorta. Stable left lower lung infiltrates with small left pleural effusion.Mild interval increase in patchy infiltrates throughout the right lung. Hypoinflated lungs with an elevated right hemidiaphragm. MICRO * BCx(-) * 04/07/19 BCx (-) * 04/08/19 Sputum (+) GNR x2 RESPIRATORY CULTURE Final Organism 1 K PNEUMO ESBL QUANTITY 2+ . MULTI DRUG RESISTANT ORGANISM Organism 2 SERRATIA MARCESCENS QUANTITY 2+ KLEB PNEUM KLEB PNEUM S MARCESCE M.I.C. RX M.I.C. RX M.I.C. RX --------- --- --------- --- --------- --- AMIKACIN <=2 S CEFAZOLIN R CEFEPIME 2 S CEFOTAXIME R S CIPROFLOXACIN 2 I <=0.25 S GENTAMICIN >=16 R <=1 S LEVOFLOXACIN 1 S <=0.12 S MEROPENEM 0.032 S TOBRAMYCIN >=16 R <=1 S TRIMETHOPRIM/SULFAMETHOXAZOLE >=320 R <=20 S PIPERACILLIN/TAZOBACTAM 16 S PHYSICAL EXAMINATION: GENERAL: VSS, NAD HEENT: AT, NC, NECK: Supple, CHEST: Rise symmetrical HEART: Pulse RRR ABDOMEN: Benign EXTREMITIES: Warm, dry SKIN: No rash, no diaphoresis ID ASSESSMENT 58 yo M admit with: 1. Sepsis 2. Acute respiratory failure possibly aspirated 3. MRSA nares colonization 4. Encephalopathy, possible acute on chronic CVA 5. End-stage renal disease, hemodialysis dependent 6. Dysphagia (+)MRSA Nares ABX ALLERGIES: KNDA INVASIVES: PIV CURRENT ABX: DAY # => Vanco IV + Zosyn ID RECOMMENDATIONS/PLAN: 1. Continue current ABX -- We will keep on Zosyn as per sensitivities and given the fact that patient is on antiseizure medications . Consultation Date/Type/Reason Admit Date/Time Mar 29, 2019 at 13:16 Initial Consult Date 04/07/19 Requesting Provider: LILLIAN ZHANG MD Date/Time of Note DATE: 04/11/19 TIME: 09:06 Exam/Review of Systems Exam Vitals Vital Signs Date Temp Pulse Resp B/P (MAP) Pulse Ox O2 O2 Flow FiO2 Time Delivery Rate 04/11/19 72 18 142/70 94 Mechanical 08:34 (94) Ventilator 04/11/19 99.1 08:18 04/11/19 4.0 08:04 04/11/19 30 05:07 Intake and Output 04/10/19 04/10/19 04/11/19 1515:00 23:00 07:00 IntakeIntake Total 258.930 ml 187.5 ml 139.5 ml OutputOutput Total 2865 ml 0 ml BalanceBalance 258.930 ml -2677.5 ml 139.5 ml Results Result Diagram: 04/11/19 0430 04/11/19 0432 Results 24hrs Laboratory Tests Test 04/10/19 12:02 04/10/19 13:10 04/10/19 17:28 04/11/19 00:01 Bedside Glucose 167 136 122 138 Test 04/11/19 04:30 04/11/19 04:32 04/11/19 05:16 White Blood Count 7.4 # Red Blood Count 2.53 L Hemoglobin 7.6 L Hematocrit 23.7 L Mean Corpuscular Volume 93.7 Mean Corpuscular 30.0 Hemoglobin Mean Corpuscular 32.1 Hemoglobin Concent Red Cell Distribution 16.9 H Width Platelet Count 155 Mean Platelet Volume 10.5 H Immature Granulocytes % 0.900 H Neutrophils % 80.0 H Lymphocytes % 9.4 L Monocytes % 4.4 Eosinophils % 5.0 Basophils % 0.3 Nucleated Red Blood 0.0 Cells % Immature Granulocytes # 0.070 H Neutrophils # 5.9 Lymphocytes # 0.7 L Monocytes # 0.3 Eosinophils # 0.4 Basophils # 0.0 Nucleated Red Blood 0.0 Cells # Sodium Level 140 Potassium Level 3.4 L Chloride Level 102 Carbon Dioxide Level 28 Anion Gap 10 Blood Urea Nitrogen 19 # Creatinine 3.77 #H Est Glomerular Filtrat 17 L Rate mL/min Glucose Level 117 Calcium Level 9.0 Phosphorus Level 2.2 #L Magnesium Level 2.1 Bedside Glucose 127 Medications Medication Current Medications IV Flush (NS 3 ml) 3 ml PER PROTOCOL IV ; Start 03/29/19 at 13:30 Ondansetron HCl (Zofran Inj) 4 mg Q6H PRN IV NAUSEA/VOMITING Last administered on 04/07/19at 18:53; Admin Dose 4 MG; Start 03/29/19 at 13:30 Acetaminophen (Tylenol Tab) 650 mg Q6H PRN PO .PAIN 1-3 OR TEMP Last administered on 03/31/19at 05:48; Admin Dose 650 MG; Start 03/29/19 at 13:30 Hydralazine HCl (Apresoline) 10 mg Q4H PRN IV sbp >160 Last administered on 04/10/19at 02:35; Admin Dose 10 MG; Start 03/29/19 at 14:00 Miscellaneous Information 1 ea NOTE XX ; Start 03/29/19 at 14:30 Glucose (Glutose) 15 gm Q15M PRN PO DECREASED GLUCOSE; Start 03/29/19 at 14:30 Glucose (Glutose) 22.5 gm Q15M PRN PO DECREASED GLUCOSE; Start 03/29/19 at 14:30 Dextrose (D50w Syringe) 25 ml Q15M PRN IV DECREASED GLUCOSE; Start 03/29/19 at 14:30 Dextrose (D50w Syringe) 50 ml Q15M PRN IV DECREASED GLUCOSE; Start 03/29/19 at 14:30 Glucagon (Glucagen) 1 mg Q15M PRN IM DECREASED GLUCOSE; Start 03/29/19 at 14:30 Glucose (Glutose) 15 gm Q15M PRN BUCCAL DECREASED GLUCOSE; Start 03/29/19 at 14:30 Albumin Human 100 ml @ 100 mls/hr WITH DIALYSIS PRN IV SBP <90 DURING DIALYSIS Last administered on 7/3/19at 16:01; Admin Dose 100 MLS/HR; Start 03/29/19 at 17:00 Albuterol/ Ipratropium (Duoneb) 3 ml Q2H RESP THERAPY PRN HHN WHEEZING AND RESP DISTRESS Last administered on 04/09/19 08:52; Admin Dose 3 ML; Start 03/29/19 at 18:00 Lorazepam (Ativan) 0.5 mg Q4H PRN IV AGITATION Last administered on 04/02/19 03:55; Admin Dose 0.5 MG; Start 03/29/19 at 18:00 IV Flush (NS 10 ml) 10 ml Q8 PRN IV IV PROTOCOL; Start 03/29/19 at 18:00 Labetalol HCl (Labetalol) 10 mg Q4H PRN IV sbp >160; Start 03/30/19 at 09:00 Haloperidol (Haldol) 5 mg Q6H PRN IM agitation Last administered on 03/31/19 00:10; Admin Dose 5 MG; Start 03/30/19 at 10:00 Heparin Sodium (Porcine) (Heparin (1000 Units/ml)) 3,200 unit AFTER DIALYSIS CATHETER Last administered on 04/10/19 18:31; Admin Dose 3,200 UNIT; Start 03/30/19 at 17:00 Atorvastatin Calcium (Lipitor) 40 mg HS NGT Last administered on 04/10/19 21:53; Admin Dose 40 MG; Start 03/31/19 at 21:00 Baclofen (Lioresal) 10 mg BID GTB Last administered on 04/11/19 08:45; Admin Dose 10 MG; Start 03/31/19 at 21:00 Doxazosin Mesylate (Cardura) 2 mg DAILY NGT Last administered on 04/11/19 08:46; Admin Dose 2 MG; Start 03/31/19 at 14:30 Gabapentin (Neurontin) 100 mg QHS PO Last administered on 04/10/19 21:53; Admin Dose 100 MG; Start 03/31/19 at 21:00 Losartan Potassium (Cozaar) 100 mg DAILY NGT Last administered on 04/10/19 10:07; Admin Dose 100 MG; Start 03/31/19 at 14:30 Sertraline HCl (Zoloft) 25 mg HS NGT Last administered on 04/10/19 21:59; Admin Dose 25 MG; Start 03/31/19 at 21:00 Acetaminophen (Tylenol Liquid) 650 mg Q4H PRN PEG MILD PAIN(1-3)OR ELEVATED TEMP Last administered on 04/11/19 05:14; Admin Dose 650 MG; Start 03/31/19 at 16:00 Insulin Aspart (Novolog Insulin Pen) NOVOLOG *MILD* ALGORI... Q6 SC Last adm inistered on 04/10/19 05:36; Admin Dose 1 UNIT; Start 04/02/19 at 12:00 Lactobacillus Acidophilus/ Rhamnosus (Culturelle) 1 cap TID GTB Last administered on 04/11/19 08:45; Admin Dose 1 CAP; Start 04/02/19 at 13:00 Hydralazine HCl (Apresoline) 75 mg TID NGT Last administered on 04/10/19 21:50; Admin Dose 75 MG; Start 04/02/19 at 21:00 Epoetin [place]-epbx (Retacrit (Esrd)) 10,000 unit MoWeFr@1700 SC Last administered on 04/10/19 21:52; Admin Dose 10,000 UNIT; Start 04/03/19 at 19:30 Lansoprazole (Prevacid) 30 mg BID@0600,1800 GTB Last administered on 04/11/19 05:14; Admin Dose 30 MG; Start 04/04/19 at 18:00 Multivit/Ca Carb/ B Cmplx/FA/Prenat (Karena-Geovanni) 1 tab DAILY GTB Last administered on 04/11/19 08:45; Admin Dose 1 TAB; Start 04/04/19 at 11:30 Aspirin (Aspirin) 81 mg DAILY PO Last administered on 04/11/19 08:46; Admin Dose 81 MG; Start 04/05/19 at 09:00 Clopidogrel Bisulfate (plaVIX) 75 mg DAILY GTB Last administered on 04/11/19 08:45; Admin Dose 75 MG; Start 04/07/19 at 09:00 Quetiapine Fumarate (Seroquel) 50 mg BID GTB Last administered on 04/11/19 08:45; Admin Dose 50 MG; Start 04/07/19 at 09:00 Propofol 100 ml @ 2.097 mls/ hr Q12H PRN IV AGITATION Last administered on 04/08/19 11:39; Admin Dose 6.291 MLS/HR; Start 04/08/19 at 00:00 Fentanyl 100 ml @ 2.5 mls/hr TITRATE IV Last administered on 04/10/19 17:25; Admin Dose 5 MLS/HR; Start 04/08/19 at 00:00 Midazolam HCl 50 ml @ 1 mls/hr TITRATE PRN IV agitation Last administered on 04/08/19 22:04; Admin Dose 3 MLS/HR; Start 04/08/19 at 00:00 Norepinephrine 250 ml @ 1.875 mls/ hr TITRATE IV Last administered on 04/08/19 22:04; Admin Dose 7.5 MLS/HR; Start 04/08/19 at 00:00 Vancomycin HCl (Vanco Iv Per Pharmacy) VANCOMYCIN PER PHARMACY PER PROTOCOL XX ; Start 04/08/19 at 00:30 Levetiracetam 100 ml @ 400 mls/hr Q12 IVPB Last administered on 04/10/19 21:48; Admin Dose 400 MLS/HR; Start 04/08/19 at 09:30 Nicardipine HCl 50 mg/Sodium Chloride 500 ml @ 50 mls/hr TITRATE IV ; Start 04/08/19 at 09:30 Piperacillin Sod/ Tazobactam Sod 50 ml @ 100 mls/hr Q8H IVPB Last administered on 04/11/19 05:14; Admin Dose 100 MLS/HR; Start 04/08/19 at 21:00 Mupirocin (Bactroban) 1 applic BID TOP Last administered on 04/10/19 21:49; Admin Dose 1 APPLIC; Start 04/09/19 at 21:00 Albuterol (Ventolin Hfa) 4 puff Q6H RESP THERAPY INH Last administered on 04/11/19 07:57; Admin Dose 4 PUFF; Start 04/10/19 at 02:00 Carvedilol (Coreg) 12.5 mg QID NGT Last administered on 04/11/19 08:46; Admin Dose 12.5 MG; Start 04/10/19 at 09:00 Miscellaneous Information (*Rx Drug Level Order Reminder*) RANDOM VANCO LEVEL ... 0500 ONCE XX ; Start 04/13/19 at 05:00; Stop 04/13/19 at 05:01 PEE CHAIDEZ NP Apr 11, 2019 09:06
[2019-04-11] MEDS: LEVETIRACETAM 500 MG (PMX) 100 ML IVPB SCH ×2 (09:39→21:15)
[2019-04-11] MEDS: MUPIROCIN 2% 22 GM OINT TOP SCH ×2 (09:42→21:46)
--- NOTE | 2019-04-11 09:54 | PN ---
Date/Time of Note Date/Time of Note DATE: 04/11/19 TIME: 09:50 Objective Vitals Vital Signs Date Temp Pulse Resp B/P (MAP) Pulse Ox O2 O2 Flow FiO2 Time Delivery Rate 04/11/19 72 18 142/70 94 Mechanical 08:34 (94) Ventilator 04/11/19 99.1 08:18 04/11/19 4.0 08:04 04/11/19 30 05:07 Intake and Output 04/10/19 04/10/19 04/11/19 1414:59 22:59 06:59 IntakeIntake Total 262.425 ml 187.495 ml 148.0 ml OutputOutput Total 2865 ml 0 ml BalanceBalance 262.425 ml -2677.505 ml 148.0 ml Results Result Diagram: 04/11/190 04/11/19 0432 Medications Medications Current Medications IV Flush (NS 3 ml) 3 ml PER PROTOCOL IV ; Start 03/29/19 at 13:30 Ondansetron HCl (Zofran Inj) 4 mg Q6H PRN IV NAUSEA/VOMITING Last administered on 04/07/19at 18:53; Admin Dose 4 MG; Start 03/29/19 at 13:30 Acetaminophen (Tylenol Tab) 650 mg Q6H PRN PO .PAIN 1-3 OR TEMP Last administered on 03/31/19at 05:48; Admin Dose 650 MG; Start 03/29/19 at 13:30 Hydralazine HCl (Apresoline) 10 mg Q4H PRN IV sbp >160 Last administered on 04/10/19at 02:35; Admin Dose 10 MG; Start 03/29/19 at 14:00 Miscellaneous Information 1 ea NOTE XX ; Start 03/29/19 at 14:30 Glucose (Glutose) 15 gm Q15M PRN PO DECREASED GLUCOSE; Start 03/29/19 at 14:30 Glucose (Glutose) 22.5 gm Q15M PRN PO DECREASED GLUCOSE; Start 03/29/19 at 14:30 Dextrose (D50w Syringe) 25 ml Q15M PRN IV DECREASED GLUCOSE; Start 03/29/19 at 14:30 Dextrose (D50w Syringe) 50 ml Q15M PRN IV DECREASED GLUCOSE; Start 03/29/19 at 14:30 Glucagon (Glucagen) 1 mg Q15M PRN IM DECREASED GLUCOSE; Start 03/29/19 at 14:30 Glucose (Glutose) 15 gm Q15M PRN BUCCAL DECREASED GLUCOSE; Start 03/29/19 at 14:30 Albumin Human 100 ml @ 100 mls/hr WITH DIALYSIS PRN IV SBP <90 DURING DIALYSIS Last administered on 04/10/19 16:01; Admin Dose 100 MLS/HR; Start 03/29/19 at 17:00 Albuterol/ Ipratropium (Duoneb) 3 ml Q2H RESP THERAPY PRN HHN WHEEZING AND RESP DISTRESS Last administered on 04/09/19 08:52; Admin Dose 3 ML; Start 03/29/19 at 18:00 Lorazepam (Ativan) 0.5 mg Q4H PRN IV AGITATION Last administered on 04/02/19 03:55; Admin Dose 0.5 MG; Start 03/29/19 at 18:00 IV Flush (NS 10 ml) 10 ml Q8 PRN IV IV PROTOCOL; Start 03/29/19 at 18:00 Labetalol HCl (Labetalol) 10 mg Q4H PRN IV sbp >160; Start 03/30/19 at 09:00 Haloperidol (Haldol) 5 mg Q6H PRN IM agitation Last administered on 03/31/19 00:10; Admin Dose 5 MG; Start 03/30/19 at 10:00 Heparin Sodium (Porcine) (Heparin (1000 Units/ml)) 3,200 unit AFTER DIALYSIS CATHETER Last administered on 04/10/19 18:31; Admin Dose 3,200 UNIT; Start 03/30/19 at 17:00 Atorvastatin Calcium (Lipitor) 40 mg HS NGT Last administered on 04/10/19 21:53; Admin Dose 40 MG; Start 03/31/19 at 21:00 Baclofen (Lioresal) 10 mg BID GTB Last administered on 04/11/19 08:45; Admin Dose 10 MG; Start 03/31/19 at 21:00 Doxazosin Mesylate (Cardura) 2 mg DAILY NGT Last administered on 04/11/19 08:46; Admin Dose 2 MG; Start 03/31/19 at 14:30 Gabapentin (Neurontin) 100 mg QHS PO Last administered on 04/10/19 21:53; Admin Dose 100 MG; Start 03/31/19 at 21:00 Losartan Potassium (Cozaar) 100 mg DAILY NGT Last administered on 04/10/19 10:07; Admin Dose 100 MG; Start 03/31/19 at 14:30 Sertraline HCl (Zoloft) 25 mg HS NGT Last administered on 04/10/19 21:59; Admin Dose 25 MG; Start 03/31/19 at 21:00 Acetaminophen (Tylenol Liquid) 650 mg Q4H PRN PEG MILD PAIN(1-3)OR ELEVATED TEMP Last administered on 04/11/19 05:14; Admin Dose 650 MG; Start 03/31/19 at 16:00 Insulin Aspart (Novolog Insulin Pen) NOVOLOG *MILD* ALGORI... Q6 SC Last administered on 04/10/19 05:36; Admin Dose 1 UNIT; Start 04/02/19 at 12:00 Lactobacillus Acidophilus/ Rhamnosus (Culturelle) 1 cap TID GTB Last administered on 04/11/19 08:45; Admin Dose 1 CAP; Start 04/02/19 at 13:00 Hydralazine HCl (Apresoline) 75 mg TID NGT Last administered on 04/10/19 21:50; Admin Dose 75 MG; Start 04/02/19 at 21:00 Epoetin [place]-epbx (Retacrit (Esrd)) 10,000 unit MoWeFr@1700 SC Last administered on 04/10/19 21:52; Admin Dose 10,000 UNIT; Start 04/03/19 at 19:30 Lansoprazole (Prevacid) 30 mg BID@0600,1800 GTB Last administered on 04/11/19 05:14; Admin Dose 30 MG; Start 04/04/19 at 18:00 Multivit/Ca Carb/ B Cmplx/FA/Prenat (Karena-Geovanni) 1 tab DAILY GTB Last administ ered on 04/11/19 08:45; Admin Dose 1 TAB; Start 04/04/19 at 11:30 Aspirin (Aspirin) 81 mg DAILY PO Last administered on 04/11/19 08:46; Admin Dose 81 MG; Start 04/05/19 at 09:00; Status Hold Clopidogrel Bisulfate (plaVIX) 75 mg DAILY GTB Last administered on 7/4/19at 08:45; Admin Dose 75 MG; Start 04/07/19 at 09:00; Status Hold Quetiapine Fumarate (Seroquel) 50 mg BID GTB Last administered on 04/11/19 08:45; Admin Dose 50 MG; Start 04/07/19 at 09:00 Propofol 100 ml @ 2.097 mls/ hr Q12H PRN IV AGITATION Last administered on 04/08/19 11:39; Admin Dose 6.291 MLS/HR; Start 04/08/19 at 00:00 Fentanyl 100 ml @ 2.5 mls/hr TITRATE IV Last administered on 04/10/19 17:25; Admin Dose 5 MLS/HR; Start 04/08/19 at 00:00 Midazolam HCl 50 ml @ 1 mls/hr TITRATE PRN IV agitation Last administered on 04/08/19 22:04; Admin Dose 3 MLS/HR; Start 04/08/19 at 00:00 Norepinephrine 250 ml @ 1.875 mls/ hr TITRATE IV Last administered on 04/08/19 22:04; Admin Dose 7.5 MLS/HR; Start 04/08/19 at 00:00 Vancomycin HCl (Vanco Iv Per Pharmacy) VANCOMYCIN PER PHARMACY PER PROTOCOL XX ; Start 04/08/19 at 00:30 Levetiracetam 100 ml @ 400 mls/hr Q12 IVPB Last administered on 04/11/19 09:39; Admin Dose 400 MLS/HR; Start 04/08/19 at 09:30 Nicardipine HCl 50 mg/Sodium Chloride 500 ml @ 50 mls/hr TITRATE IV ; Start 04/08/19 at 09:30 Piperacillin Sod/ Tazobactam Sod 50 ml @ 100 mls/hr Q8H IVPB Last administered on 04/11/19 05:14; Admin Dose 100 MLS/HR; Start 04/08/19 at 21:00 Mupirocin (Bactroban) 1 applic BID TOP Last administered on 04/11/19 09:42; Admin Dose 1 APPLIC; Start 04/09/19 at 21:00 Albuterol (Ventolin Hfa) 4 puff Q6H RESP THERAPY INH Last administered on 04/11/19 07:57; Admin Dose 4 PUFF; Start 04/10/19 at 02:00 Carvedilol (Coreg) 12.5 mg QID NGT Last administered on 04/11/19at 08:46; Admin Dose 12.5 MG; Start 04/10/19 at 09:00 Miscellaneous Information (*Rx Drug Level Order Reminder*) RANDOM VANCO LEVEL ... 0500 ONCE XX ; Start 04/13/19 at 05:00; Stop 04/13/19 at 05:01 VTE Prophylaxis Risk [place] [facility] risk: 10 SCD applied [place] [facility] Yes Lines/Catheters IV Catheter Type: Linares in Place: Yes Cont'd linares catheter reason: terminal illness/intractable pain Assessment/Plan Hospital Course Subjective Patient off pressors however still extremely agitated, intubated Objective Physical exam General: Patient is laying in bed intubated and sedated Mentation: Patient is not alert, Head: Normocephalic atraumatic Eyes: EOMI, pupils reactive to light Neck: Supple, nontender, midline Respiratory: Clear to auscultation bilaterally Cardiovascular: regular rate, no obvious murmurs Gastrointestinal: non-tender to palpation, bowel sounds heard. Neurological: Unable to assess however has minimal to no response to noxious stimuli on the left side Skin: No new skin lesions Assessment/Plan Acute hypoxic respiratory failure -Status post intubation, extubate when able -initial CT abdomen pelvis showing possible pneumonia which would make sense in this encephalopathic patient in the hospital -Broad-spectrum antibiotics -Treatment per pulmonology Septic shock, resolved -Secondary to likely pneumonia -Infectious disease consulted -Cultures taken, CT showing possibly distended bladder wall for cystitis however UTI is not necessarily revealing for infection -IV antibiotic Likely aspiration pneumonia -Would explain mild fever before as well as symptoms and PNEUMATIC TESTER that led to patient's intubation -IV antibiotic -Infectious disease on board Acute on chronic encephalopathy - still restless and trying to get out of bed. Continue Seroquel as needed - Neurology on board and appreciate recommendations. CT unrevealing -Possible new CVA as patient has recent history of multiple CVAs, however patient is not able to tolerate MRI at this time due to agitation -Use as needed medications. Hypertensive emergency-resolved for now - BP better controlled, hypotensive at the moment anemia- -No concrete source of bleeding however there was either pink medication or red fluid mixed in with the aspirate per nurse this morning, per GI recommendations we will get a CT scan of the abdomen and pelvis as well as trend patient's hemoglobin. Will hold patient's aspirin and Plavix for now. - EGD revealed moderate distal esophagitis and gastritis and duodenitis. Colonoscopy showed internal hemorrhoids - GI consultation appreciated. Will need repeat colonoscopy in 6 months - continue PPI Leukocytosis-resolved -Possibly secondary to pneumonia, infectious disease on board, continue IV antibiotics Dysphasia -PEG tube ok for use per GI End-stage renal disease on hemodialysis - Nephrology on board and appreciate consultation. Continue HD Coronary artery disease status post CABG history - continue home medications - continue aspirin and Plavix when able Epilepsy - Continue Keppra History of CVA with residual left-sided deficit and more recent CVA 1 month ago - Patient reportedly had a new stroke approximately 1 month ago at [facility] which is the cause of patient's current encephalopathic state - After speaking with daughter, appears this is patient's baseline after leaving [facility] proximally 1 week ago. Patient suffered CVA and subsequent long stay in the ICU which required intubation and PEG tube. Patient almost required tracheostomy however appear to have been able to be weaned off the ventilator. - Neurology consultation appreciated BPH Disposition -Patient intubated in the ICU, likely secondary to septic shock secondary to pneumonia, infectious disease has been consulted, keep in ICU monitor closely -Patient may be difficult to extubate given history of poor extubation -CT abdomen pelvis pending More than 40 minutes of critical care time has been spent on this encounter STEWART WINTER Apr 11, 2019 09:54
--- NOTE | 2019-04-11 10:28 | PN ---
Date/Time of Note Date/Time of Note DATE: 04/11/19 TIME: 10:12 Assessment/Plan VTE Prophylaxis Risk score (from Ns)>0 risk: 10 SCD applied (from Ns): Yes Pharmacological prophylaxis: other (scds) Lines/Catheters IV [facility]ter Type (from [facility]): Urinary Cath still in place: Yes Reason Cath still needed: other (indicate) (monitor output) Assessment/Plan Hospital Course Assessment: Severe anemia-improved- hgb- 7.9 04/10/19- no overt signs of GI bleed -EGD 04/03/2019 Moderate distal esophagitis. Gastrostomy tube in place. Gastritis -biopsies are negative for H. pylori. Duodenitis. Colonoscopy 04/03/2019 8 sessile polyp in the cecum. Snared and retrieved. -Tubular adenoma 6 mm sessile polyp ascending colon. Snared and retrieved. -Tubular adenoma 6 mm sessile polyp sigmoid. Snared and retrieved. -Tubular adenoma 20 mm sessile polyp sigmoid. Saline assisted lipectomy plus localization tattoo. Moderate-sized internal hemorrhoids. 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 -Replaced with 18 [place] gastrostomy tube Coronary artery disease status post CABG history Epilepsy BPH Query aspiration PNA Plan: Pt not lluvia Tf- residuals now noted with pink tinged mixed with TF output. Hold TF, Stat CT abd/pelvis will add gastrofragin via g-tube to again assess positioning and to r/o bowel obstruction- hold Plavix/asa Patient is currently anemic- however HGB stable Patient seen in collaboration with Dr. Sanders Subjective: Course reviewed with nursing staff Patient interviewed and examined All labs, imaging and other results reviewed Pt is intubated, non-verbal, Tachycardia noted earlier this am- now resolved Blood pressure - stable. Hgb stable- no c/o melena or hematochezia PHYSICAL EXAMINATION: GENERAL: Well developed, well nourished, intubated SKIN: No lesions, g-tube in place NECK: Supple, no masses, thyroid normal CHEST: Inspection within normal limits. CARDIOVASCULAR: Heart: Regular rate and rhythm RESPIRATORY: Lungs clear to auscultation. GASTROINTESTINAL AND LIVER: Abdomen: Soft, , G-tube in place, non-distended,, no organomegaly, no ascites, no guarding, no rebound tenderness, normoactive bowel sounds. Rectal: Deferred. GENITOURINARY: Male genitalia within normal limits. EXTREMITIES: No cyanosis, clubbing or edema. Result Diagram: 04/11/19 0430 04/11/19 0432 Results 24hrs Laboratory Tests Test 04/10/19 12:02 04/10/19 13:10 04/10/19 17:28 04/11/19 00:01 Bedside Glucose 167 136 122 138 Test 04/11/19 04:30 04/11/19 04:32 04/11/19 05:16 White Blood Count 7.4 # Red Blood Count 2.53 L Hemoglobin 7.6 L Hematocrit 23.7 L Mean Corpuscular Volume 93.7 Mean Corpuscular 30.0 Hemoglobin Mean Corpuscular 32.1 Hemoglobin Concent Red Cell Distribution 16.9 H Width Platelet Count 155 Mean Platelet Volume 10.5 H Immature Granulocytes % 0.900 H Neutrophils % 80.0 H Lymphocytes % 9.4 L Monocytes % 4.4 Eosinophils % 5.0 Basophils % 0.3 Nucleated Red Blood 0.0 Cells % Immature Granulocytes # 0.070 H Neutrophils # 5.9 Lymphocytes # 0.7 L Monocytes # 0.3 Eosinophils # 0.4 Basophils # 0.0 Nucleated Red Blood 0.0 Cells # Sodium Level 140 Potassium Level 3.4 L Chloride Level 102 Carbon Dioxide Level 28 Anion Gap 10 Blood Urea Nitrogen 19 # Creatinine 3.77 #H Est Glomerular Filtrat 17 L Rate mL/min Glucose Level 117 Calcium Level 9.0 Phosphorus Level 2.2 #L Magnesium Level 2.1 Bedside Glucose 127 Exam/Review of Systems Exam Vitals Vital Signs Date Temp Pulse Resp B/P (MAP) Pulse Ox O2 O2 Flow FiO2 Time Delivery Rate 04/11/19 72 18 142/70 94 Mechanical 08:34 (94) Ventilator 04/11/19 99.1 08:18 04/11/19 4.0 08:04 04/11/19 30 05:07 Intake and Output 04/10/19 04/10/19 04/11/19 1515:00 23:00 07:00 IntakeIntake Total 258.930 ml 187.5 ml 139.5 ml OutputOutput Total 2865 ml 0 ml BalanceBalance 258.930 ml -2677.5 ml 139.5 ml Results Results 24hrs Laboratory Tests Test 04/10/19 12:02 04/10/19 13:10 04/10/19 17:28 04/11/19 00:01 Bedside Glucose 167 136 122 138 Test 04/11/19 04:30 04/11/19 04:32 04/11/19 05:16 White Blood Count 7.4 # Red Blood Count 2.53 L Hemoglobin 7.6 L Hematocrit 23.7 L Mean Corpuscular Volume 93.7 Mean Corpuscular 30.0 Hemoglobin Mean Corpuscular 32.1 Hemoglobin Concent Red Cell Distribution 16.9 H Width Platelet Count 155 Mean Platelet Volume 10.5 H Immature Granulocytes % 0.900 H Neutrophils % 80.0 H Lymphocytes % 9.4 L Monocytes % 4.4 Eosinophils % 5.0 Basophils % 0.3 Nucleated Red Blood 0.0 Cells % Immature Granulocytes # 0.070 H Neutrophils # 5.9 Lymphocytes # 0.7 L Monocytes # 0.3 Eosinophils # 0.4 Basophils # 0.0 Nucleated Red Blood 0.0 Cells # Sodium Level 140 Potassium Level 3.4 L Chloride Level 102 Carbon Dioxide Level 28 Anion Gap 10 Blood Urea Nitrogen 19 # Creatinine 3.77 #H Est Glomerular Filtrat 17 L Rate mL/min Glucose Level 117 Calcium Level 9.0 Phosphorus Level 2.2 #L Magnesium Level 2.1 Bedside Glucose 127 Medications Medication Current Medications IV Flush (NS 3 ml) 3 ml PER PROTOCOL IV ; Start 03/29/19 at 13:30 Ondansetron HCl (Zofran Inj) 4 mg Q6H PRN IV NAUSEA/VOMITING Last administered on 04/07/19at 18:53; Admin Dose 4 MG; Start 03/29/19 at 13:30 Acetaminophen (Tylenol Tab) 650 mg Q6H PRN PO .PAIN 1-3 OR TEMP Last admi nistered on 03/31/19at 05:48; Admin Dose 650 MG; Start 03/29/19 at 13:30 Hydralazine HCl (Apresoline) 10 mg Q4H PRN IV sbp >160 Last administered on 04/10/19at 02:35; Admin Dose 10 MG; Start 03/29/19 at 14:00 Miscellaneous Information 1 ea NOTE XX ; Start 03/29/19 at 14:30 Glucose (Glutose) 15 gm Q15M PRN PO DECREASED GLUCOSE; Start 03/29/19 at 14:30 Glucose (Glutose) 22.5 gm Q15M PRN PO DECREASED GLUCOSE; Start 03/29/19 at 14:30 Dextrose (D50w Syringe) 25 ml Q15M PRN IV DECREASED GLUCOSE; Start 03/29/19 at 14:30 Dextrose (D50w Syringe) 50 ml Q15M PRN IV DECREASED GLUCOSE; Start 03/29/19 at 14:30 Glucagon (Glucagen) 1 mg Q15M PRN IM DECREASED GLUCOSE; Start 03/29/19 at 14:30 Glucose (Glutose) 15 gm Q15M PRN BUCCAL DECREASED GLUCOSE; Start 03/29/19 at 14:30 Albumin Human 100 ml @ 100 mls/hr WITH DIALYSIS PRN IV SBP <90 DURING DIALYSIS Last administered on 04/10/19at 16:01; Admin Dose 100 MLS/HR; Start 03/29/19 at 17:00 Albuterol/ Ipratropium (Duoneb) 3 ml Q2H RESP THERAPY PRN HHN WHEEZING AND RESP DISTRESS Last administered on 04/09/19at 08:52; Admin Dose 3 ML; Start 03/29/19 at 18:00 Lorazepam (Ativan) 0.5 mg Q4H PRN IV AGITATION Last administered on 04/02/19at 03:55; Admin Dose 0.5 MG; Start 03/29/19 at 18:00 IV Flush (NS 10 ml) 10 ml Q8 PRN IV IV PROTOCOL; Start 03/29/19 at 18:00 Labetalol HCl (Labetalol) 10 mg Q4H PRN IV sbp >160; Start 03/30/19 at 09:00 Haloperidol (Haldol) 5 mg Q6H PRN IM agitation Last administered on 03/31/19at 00:10; Admin Dose 5 MG; Start 03/30/19 at 10:00 Heparin Sodium (Porcine) (Heparin (1000 Units/ml)) 3,200 unit AFTER DIALYSIS CATHETER Last administered on 04/10/19at 18:31; Admin Dose 3,200 UNIT; Start 03/30/19 at 17:00 Atorvastatin Calcium (Lipitor) 40 mg HS NGT Last administered on 04/10/19at 21:53; Admin Dose 40 MG; Start 03/31/19 at 21:00 Baclofen (Lioresal) 10 mg BID GTB Last administered on 04/11/19 08:45; Admin Dose 10 MG; Start 03/31/19 at 21:00 Doxazosin Mesylate (Cardura) 2 mg DAILY NGT Last administered on 04/11/19 08: 46; Admin Dose 2 MG; Start 03/31/19 at 14:30 Gabapentin (Neurontin) 100 mg QHS PO Last administered on 04/10/19 21:53; Admin Dose 100 MG; Start 03/31/19 at 21:00 Losartan Potassium (Cozaar) 100 mg DAILY NGT Last administered on 04/10/19 10:07; Admin Dose 100 MG; Start 03/31/19 at 14:30 Sertraline HCl (Zoloft) 25 mg HS NGT Last administered on 04/10/19 21:59; Admin Dose 25 MG; Start 03/31/19 at 21:00 Acetaminophen (Tylenol Liquid) 650 mg Q4H PRN PEG MILD PAIN(1-3)OR ELEVATED TEMP Last administered on 04/11/19 05:14; Admin Dose 650 MG; Start 03/31/19 at 16:00 Insulin Aspart (Novolog Insulin Pen) NOVOLOG *MILD* ALGORI... Q6 SC Last administered on 04/10/19 05:36; Admin Dose 1 UNIT; Start 04/02/19 at 12:00 Lactobacillus Acidophilus/ Rhamnosus (Culturelle) 1 cap TID GTB Last administered on 04/11/19 08:45; Admin Dose 1 CAP; Start 04/02/19 at 13:00 Hydralazine HCl (Apresoline) 75 mg TID NGT Last administered on 04/10/19 21:50; Admin Dose 75 MG; Start 04/02/19 at 21:00 Epoetin [place]-epbx (Retacrit (Esrd)) 10,000 unit MoWeFr@1700 SC Last administered on 04/10/19 21:52; Admin Dose 10,000 UNIT; Start 04/03/19 at 19:30 Lansoprazole (Prevacid) 30 mg BID@0600,1800 GTB Last administered on 04/11/19 05:14; Admin Dose 30 MG; Start 04/04/19 at 18:00 Multivit/Ca Carb/ B Cmplx/FA/Prenat (Karena-Geovanni) 1 tab DAILY GTB Last administered on 04/11/19 08:45; Admin Dose 1 TAB; Start 04/04/19 at 11:30 Aspirin (Aspirin) 81 mg DAILY PO Last administered on 04/11/19 08:46; Admin Dose 81 MG; Start 04/05/19 at 09:00; Status Hold Clopidogrel Bisulfate (plaVIX) 75 mg DAILY GTB Last administered on 04/11/19 08:45; Admin Dose 75 MG; Start 04/07/19 at 09:00; Status Hold Quetiapine Fumarate (Seroquel) 50 mg BID GTB Last administered on 04/11/19 08:45; Admin Dose 50 MG; Start 04/07/19 at 09:00 Propofol 100 ml @ 2.097 mls/ hr Q12H PRN IV AGITATION Last administered on 04/08/19 11:39; Admin Dose 6.291 MLS/HR; Start 04/08/19 at 00:00 Fentanyl 100 ml @ 2.5 mls/hr TITRATE IV Last administered on 04/10/19 17:25; Admin Dose 5 MLS/HR; Start 04/08/19 at 00:00 Midazolam HCl 50 ml @ 1 mls/hr TITRATE PRN IV agitation Last administered on 04/08/19 22:04; Admin Dose 3 MLS/HR; Start 04/08/19 at 00:00 Norepinephrine 250 ml @ 1.875 mls/ hr TITRATE IV Last administered on 04/08/19 22:04; Admin Dose 7.5 MLS/HR; Start 04/08/19 at 00:00 Vancomycin HCl (Vanco Iv Per Pharmacy) VANCOMYCIN PER PHARMACY PER PROTOCOL XX ; Start 04/08/19 at 00:30 Levetiracetam 100 ml @ 400 mls/hr Q12 IVPB Last administered on 04/11/19 09:39; Admin Dose 400 MLS/HR; Start 04/08/19 at 09:30 Nicardipine HCl 50 mg/Sodium Chloride 500 ml @ 50 mls/hr TITRATE IV ; Start 04/08/19 at 09:30 Piperacillin Sod/ Tazobactam Sod 50 ml @ 100 mls/hr Q8H IVPB Last administered on 7/4/19at 05:14; Admin Dose 100 MLS/HR; Start 04/08/19 at 21:00 Mupirocin (Bactroban) 1 applic BID TOP Last administered on 04/11/19 09:42; Admin Dose 1 APPLIC; Start 04/09/19 at 21:00 Albuterol (Ventolin Hfa) 4 puff Q6H RESP THERAPY INH Last administered on 04/11/19 07:57; Admin Dose 4 PUFF; Start 04/10/19 at 02:00 Carvedilol (Coreg) 12.5 mg QID NGT Last administered on 04/11/19 08:46; Admin Dose 12.5 MG; Start 04/10/19 at 09:00 Miscellaneous Information (*Rx Drug Level Order Reminder*) RANDOM VANCO LEVEL ... 0500 ONCE XX ; Start 04/13/19 at 05:00; Stop 04/13/19 at 05:01 JUNE LEE Apr 11, 2019 10:22
--- NOTE | 2019-04-11 10:39 | CONS ---
Assessment/Plan Assessment/Plan Assessment/Plan (Daily) 1. Acute hypoxemic respiratory failure intubated on ventilator 2. Accelerated HTN 3. ESRD on HD - MWF schedule at [facility] 4. H/o CAD s/p CABG before 5. H/o CAD with previous recent stent placement in 09/2018 6. h/o HTN 7. H/o DM II 8. h/o HL 9. 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 H/o BPH -EGD 04/03/2019 Moderate distal esophagitis. Gastrostomy tube in place. Gastritis rule out H. pylori infection. Biopsies obtained. Duodenitis. Colonoscopy 04/03/2019 8 sessile polyp in the cecum. Snared and retrieved. 6 mm sessile polyp ascending colon. Snared and retrieved. 6 mm sessile polyp sigmoid. Snared and retrieved. 20 mm sessile polyp sigmoid. Saline assisted lipectomy plus localization tattoo. Moderate-sized internal hemorrhoids Plan: s/p HD yesteday 2 L removed - will continue pt on MWF schedule while being in hospital- Hd ordered for Monday - ventilator management as per pulmonary BP controlled with Losartan 100mg po daily Coreg 25 BID, Hydralazine 75 mg pO TID for better BP control Epogen 74116 units SQ MWF will follow up Consultation Date/Type/Reason Admit Date/Time Mar 29, 2019 at 13:16 Initial Consult Date 03/29/19 Type of Consult NEPHROLOGY Requesting Provider: LILLIAN ZHANG MD Date/Time of Note DATE: 04/11/19 TIME: 10:39 24 HR Interval Summary Free Text/Dictation pt remains intubated on ventilator, pt gets agitated off sedation Exam/Review of Systems Exam Vitals Vital Signs Date Temp Pulse Resp B/P (MAP) Pulse Ox O2 O2 Flow FiO2 Time Delivery Rate 04/11/19 72 18 142/70 94 Mechanical 08:34 (94) Ventilator 04/11/19 99.1 08:18 04/11/19 4.0 08:04 04/11/19 30 05:07 Intake and Output 04/10/19 04/10/19 04/11/19 1515:00 23:00 07:00 IntakeIntake Total 258.930 ml 187.5 ml 139.5 ml OutputOutput Total 2865 ml 0 ml BalanceBalance 258.930 ml -2677.5 ml 139.5 ml Exam Constitutional: intubated on ventilator , ET tube in place Respiratory: crackles/rales, diminished breath sounds Cardiovascular: regular rate and rhythm, nl pulses Gastrointestinal: soft, non-tender Musculoskeletal: swelling (1-2+pitting edema ) Extremities: normal pulses Neurological: Non focal Results Result Diagram: 04/11/19 0430 04/11/19 0432 Results 24hrs Laboratory Tests Test 04/10/19 12:02 04/10/19 13:10 04/10/19 17:28 04/11/19 00:01 Bedside Glucose 167 136 122 138 Test 04/11/19 04:30 04/11/19 04:32 04/11/19 05:16 White Blood Count 7.4 # Red Blood Count 2.53 L Hemoglobin 7.6 L Hematocrit 23.7 L Mean Corpuscular Volume 93.7 Mean Corpuscular 30.0 Hemoglobin Mean Corpuscular 32.1 Hemoglobin Concent Red Cell Distribution 16.9 H Width Platelet Count 155 Mean Platelet Volume 10.5 H Immature Granulocytes % 0.900 H Neutrophils % 80.0 H Lymphocytes % 9.4 L Monocytes % 4.4 Eosinophils % 5.0 Basophils % 0.3 Nucleated Red Blood 0.0 Cells % Immature Granulocytes # 0.070 H Neutrophils # 5.9 Lymphocytes # 0.7 L Monocytes # 0.3 Eosinophils # 0.4 Basophils # 0.0 Nucleated Red Blood 0.0 Cells # Sodium Level 140 Potassium Level 3.4 L Chloride Level 102 Carbon Dioxide Level 28 Anion Gap 10 Blood Urea Nitrogen 19 # Creatinine 3.77 #H Est Glomerular Filtrat 17 L Rate mL/min Glucose Level 117 Calcium Level 9.0 Phosphorus Level 2.2 #L Magnesium Level 2.1 Bedside Glucose 127 Medications Medication Current Medications IV Flush (NS 3 ml) 3 ml PER PROTOCOL IV ; Start 03/29/19 at 13:30 Ondansetron HCl (Zofran Inj) 4 mg Q6H PRN IV NAUSEA/VOMITING Last administered on 04/07/19at 18:53; Admin Dose 4 MG; Start 03/29/19 at 13:30 Acetaminophen (Tylenol Tab) 650 mg Q6H PRN PO .PAIN 1-3 OR TEMP Last administered on 03/31/19at 05:48; Admin Dose 650 MG; Start 03/29/19 at 13:30 Hydralazine HCl (Apresoline) 10 mg Q4H PRN IV sbp >160 Last administered on 04/10/19at 02:35; Admin Dose 10 MG; Start 03/29/19 at 14:00 Miscellaneous Information 1 ea NOTE XX ; Start 03/29/19 at 14:30 Glucose (Glutose) 15 gm Q15M PRN PO DECREASED GLUCOSE; Start 03/29/19 at 14:30 Glucose (Glutose) 22.5 gm Q15M PRN PO DECREASED GLUCOSE; Start 03/29/19 at 14:30 Dextrose (D50w Syringe) 25 ml Q15M PRN IV DECREASED GLUCOSE; Start 03/29/19 at 14:30 Dextrose (D50w Syringe) 50 ml Q15M PRN IV DECREASED GLUCOSE; Start 03/29/19 at 14:30 Glucagon (Glucagen) 1 mg Q15M PRN IM DECREASED GLUCOSE; Start 03/29/19 at 14:30 Glucose (Glutose) 15 gm Q15M PRN BUCCAL DECREASED GLUCOSE; Start 03/29/19 at 14:30 Albumin Human 100 ml @ 100 mls/hr WITH DIALYSIS PRN IV SBP <90 DURING DIALYSIS Last administered on 04/10/19at 16:01; Admin Dose 100 MLS/HR; Start 03/29/19 at 17:00 Albuterol/ Ipratropium (Duoneb) 3 ml Q2H RESP THERAPY PRN HHN WHEEZING AND RESP DISTRESS Last administered on 04/09/19at 08:52; Admin Dose 3 ML; Start 03/29/19 at 18:00 Lorazepam (Ativan) 0.5 mg Q4H PRN IV AGITATION Last administered on 04/02/19at 03:55; Admin Dose 0.5 MG; Start 03/29/19 at 18:00 IV Flush (NS 10 ml) 10 ml Q8 PRN IV IV PROTOCOL; Start 03/29/19 at 18:00 Labetalol HCl (Labetalol) 10 mg Q4H PRN IV sbp >160; Start 03/30/19 at 09:00 Haloperidol (Haldol) 5 mg Q6H PRN IM agitation Last administered on 03/31/19at 00:10; Admin Dose 5 MG; Start 03/30/19 at 10:00 Heparin Sodium (Porcine) (Heparin (1000 Units/ml)) 3,200 unit AFTER DIALYSIS CATHETER Last administered on 04/10/19 18:31; Admin Dose 3,200 UNIT; Start 03/30/19 at 17:00 Atorvastatin Calcium (Lipitor) 40 mg HS NGT Last administered on 04/10/19 21:53; Admin Dose 40 MG; Start 03/31/19 at 21:00 Baclofen (Lioresal) 10 mg BID GTB Last administered on 04/11/19 08:45; Admin Dose 10 MG; Start 03/31/19 at 21:00 Doxazosin Mesylate (Cardura) 2 mg DAILY NGT Last administered on 04/11/19 08:46; Admin Dose 2 MG; Start 03/31/19 at 14:30 Gabapentin (Neurontin) 100 mg QHS PO Last administered on 04/10/19 21:53; Admin Dose 100 MG; Start 03/31/19 at 21:00 Losartan Potassium (Cozaar) 100 mg DAILY NGT Last administered on 04/10/19 10:07; Admin Dose 100 MG; Start 03/31/19 at 14:30 Sertraline HCl (Zoloft) 25 mg HS NGT Last administered on 04/10/19 21:59; Admin Dose 25 MG; Start 03/31/19 at 21:00 Acetaminophen (Tylenol Liquid) 650 mg Q4H PRN PEG MILD PAIN(1-3)OR ELEVATED TEMP Last administered on 04/11/19 05:14; Admin Dose 650 MG; Start 03/31/19 at 16:00 Insulin Aspart (Novolog Insulin Pen) NOVOLOG *MILD* ALGORI... Q6 SC Last administered on 04/10/19 05:36; Admin Dose 1 UNIT; Start 04/02/19 at 12:00 Lactobacillus Acidophilus/ Rhamnosus (Culturelle) 1 cap TID GTB Last adminis tered on 04/11/19 08:45; Admin Dose 1 CAP; Start 04/02/19 at 13:00 Hydralazine HCl (Apresoline) 75 mg TID NGT Last administered on 04/10/19 21:50; Admin Dose 75 MG; Start 04/02/19 at 21:00 Epoetin [place]-epbx (Retacrit (Esrd)) 10,000 unit MoWeFr@1700 SC Last administered on 04/10/19 21:52; Admin Dose 10,000 UNIT; Start 04/03/19 at 19:30 Lansoprazole (Prevacid) 30 mg BID@0600,1800 GTB Last administered on 04/11/19 05:14; Admin Dose 30 MG; Start 04/04/19 at 18:00 Multivit/Ca Carb/ B Cmplx/FA/Prenat (Karena-Geovanni) 1 tab DAILY GTB Last administered on 04/11/19 08:45; Admin Dose 1 TAB; Start 04/04/19 at 11:30 Aspirin (Aspirin) 81 mg DAILY PO Last administered on 04/11/19 08:46; Admin Dose 81 MG; Start 04/05/19 at 09:00; Status Hold Clopidogrel Bisulfate (plaVIX) 75 mg DAILY GTB Last administered on 04/11/19 08:45; Admin Dose 75 MG; Start 04/07/19 at 09:00; Status Hold Quetiapine Fumarate (Seroquel) 50 mg BID GTB Last administered on 04/11/19 08:45; Admin Dose 50 MG; Start 04/07/19 at 09:00 Propofol 100 ml @ 2.097 mls/ hr Q12H PRN IV AGITATION Last administered on 04/08/19 11:39; Admin Dose 6.291 MLS/HR; Start 04/08/19 at 00:00 Fentanyl 100 ml @ 2.5 mls/hr TITRATE IV Last administered on 04/10/19 17:25; Admin Dose 5 MLS/HR; Start 04/08/19 at 00:00 Midazolam HCl 50 ml @ 1 mls/hr TITRATE PRN IV agitation Last administered on 04/08/19 22:04; Admin Dose 3 MLS/HR; Start 04/08/19 at 00:00 Norepinephrine 250 ml @ 1.875 mls/ hr TITRATE IV Last administered on 04/08/19 22:04; Admin Dose 7.5 MLS/HR; Start 04/08/19 at 00:00 Vancomycin HCl (Vanco Iv Per Pharmacy) VANCOMYCIN PER PHARMACY PER PROTOCOL XX ; Start 04/08/19 at 00:30 Levetiracetam 100 ml @ 400 mls/hr Q12 IVPB Last administered on 04/11/19 09:39; Admin Dose 400 MLS/HR; Start 04/08/19 at 09:30 Nicardipine HCl 50 mg/Sodium Chloride 500 ml @ 50 mls/hr TITRATE IV ; Start 04/08/19 at 09:30 Piperacillin Sod/ Tazobactam Sod 50 ml @ 100 mls/hr Q8H IVPB Last administered on 04/11/19 05:14; Admin Dose 100 MLS/HR; Start 04/08/19 at 21:00 Mupirocin (Bactroban) 1 applic BID TOP Last administered on 04/11/19 09:42; Admin Dose 1 APPLIC; Start 04/09/19 at 21:00 Albuterol (Ventolin Hfa) 4 puff Q6H RESP THERAPY INH Last administered on 04/11/19 07:57; Admin Dose 4 PUFF; Start 04/10/19 at 02:00 Carvedilol (Coreg) 12.5 mg QID NGT Last administered on 04/11/19 08:46; Admin Dose 12.5 MG; Start 04/10/19 at 09:00 Miscellaneous Information (*Rx Drug Level Order Reminder*) RANDOM VANCO LEVEL ... 0500 ONCE XX ; Start 04/13/19 at 05:00; Stop 04/13/19 at 05:01 BETZAIDA YAÑEZ MD Apr 11, 2019 10:39
[2019-04-11] MEDS ORDERED: IOHEXOL 14.3 MG(I)/ML (ADULT) BTL PO ONE (11:30)
--- NOTE | 2019-04-11 12:55 | CONS ---
Consult Date/Type/Reason Admit Date/Time Mar 29, 2019 at 13:16 Initial Consult Date 04/07/19 Type of Consultation: Pulm/CCM Requesting Provider: LILLIAN ZHANG MD Date/Time of Note DATE: 04/11/19 TIME: 12:49 Subjective Agitated on the ventilator. Off pressors. Objective Vitals Vital Signs Date Temp Pulse Resp B/P (MAP) Pulse Ox O2 O2 Flow FiO2 Time Delivery Rate 04/11/19 73 12:00 04/11/19 18 142/70 94 Mechanical 08:34 (94) Ventilator 04/11/19 99.1 08:18 04/11/19 4.0 08:04 04/11/19 30 05:07 Intake and Output 04/10/19 04/10/19 04/11/19 1515:00 23:00 07:00 IntakeIntake Total 258.930 ml 187.5 ml 139.5 ml OutputOutput Total 2865 ml 0 ml BalanceBalance 258.930 ml -2677.5 ml 139.5 ml Exam GENERAL: Well-nourished, well-developed gentleman, orally intubated on mechanical ventilation. NECK: Supple. No JVD or lymphadenopathy. CARDIAC: S1, S2, no added sounds or murmurs. CHEST: Diminished air entry bilaterally. ABDOMEN: Soft, nontender. No guarding or rebound. EXTREMITIES: No cyanosis, clubbing or edema. NEUROLOGIC: Grossly intact. No focal deficits. Results/Medications Result Diagram: 04/11/19 0430 04/11/19 0432 Results 24 hrs Laboratory Tests Test 04/10/19 13:10 04/10/19 17:28 04/11/19 00:01 04/11/19 04:30 Bedside Glucose 136 122 138 White Blood Count 7.4 # Red Blood Count 2.53 L Hemoglobin 7.6 L Hematocrit 23.7 L Mean Corpuscular Volume 93.7 Mean Corpuscular 30.0 Hemoglobin Mean Corpuscular 32.1 Hemoglobin Concent Red Cell Distribution 16.9 H Width Platelet Count 155 Mean Platelet Volume 10.5 H Immature Granulocytes % 0.900 H Neutrophils % 80.0 H Lymphocytes % 9.4 L Monocytes % 4.4 Eosinophils % 5.0 Basophils % 0.3 Nucleated Red Blood 0.0 Cells % Immature Granulocytes # 0.070 H Neutrophils # 5.9 Lymphocytes # 0.7 L Monocytes # 0.3 Eosinophils # 0.4 Basophils # 0.0 Nucleated Red Blood 0.0 Cells # Test 04/11/19 04:32 04/11/19 05:16 Sodium Level 140 Potassium Level 3.4 L Chloride Level 102 Carbon Dioxide Level 28 Anion Gap 10 Blood Urea Nitrogen 19 # Creatinine 3.77 #H Est Glomerular Filtrat 17 L Rate mL/min Glucose Level 117 Calcium Level 9.0 Phosphorus Level 2.2 #L Magnesium Level 2.1 Bedside Glucose 127 Home Meds Reported Medications Bisacodyl (Dulcolax) 10 Mg Supp.rect, 10 MG RC DAILY PRN for CONSTIPATION, SUPP.RECT 03/29/19 Sodium Phosphate,Todd-Dibasic (Enema Ready To Use) 133 Ml Enema, 133 ML RC EVERY 2 DAYS PRN for CONSTIPATION, ENEMA 03/29/19 Acetaminophen* (Acetaminophen*) 650 Mg Tablet, 650 MG GTB Q4 PRN for MILD PAIN LEVEL 1-3, #30 TAB AND FEVER 03/29/19 Acetaminophen* (Acetaminophen*) 500 MG Extra Strength Tablet, 1000 MG GTB Q4H PRN for MODERATE PAIN LEVEL 4-6, TAB 03/29/19 Acetaminophen* (Acetaminophen*) 500 MG Extra Strength Tablet, 1000 MG GTB BID PRN for GENERAL BODY PAIN, TAB 03/29/19 Amino Acids/Protein Hydrolys (Pro-Stat Awc Liquid) 30 Ml Liquid, 30 ML GTB DAILY SUGAR FREE 03/29/19 Multivitamin* (Daily Value*) 1 Each Tablet, 1 TAB GTB DAILY, TAB 03/29/19 Ascorbic Acid* (Vitamin C*) 500 Mg Capsule.sa, 500 MG GTB DAILY, CAP 03/29/19 Ferrous Sulfate (Ferrous Sulfate) 300 Mg/5 Ml Liquid, 325 MG GTB DAILY 03/29/19 Cran/Vitc/Mannose/Inulin/Brom (Uti-Stat Liquid) 3,875 Mg/30 Ml Liquid, 3875 MG GTB DAILY 03/29/19 Cranberry Extract (Cranberry) 425 Mg Capsule, 425 MG GTB DAILY, CAP 03/29/19 Insulin Glulisine (Apidra Solostar) 100 Unit/1 Ml Insuln.pen, 4 UNIT SQ TIDM A, #1 TUB 03/29/19 Insulin Glargine,Hum.rec.anlog (Basaglar Kwikpen U-100) 100 Unit/1 Ml Insuln.pen, 25 UNIT SC QHS, EA 03/29/19 Insulin Regular, Human (Humulin R) 100 Unit/1 Ml Vial, 0 IJ AC MEALS AND BEDTIME, VIAL 0-150 = 0 UNIT 151-200 = 1 UNIT 201-250 = 2 UNITS 251-300 = 3 UNITS 301-350 = 4 UNITS 351-400 = 5 UNITS OVER 400 GIVE 6 UNITS UNDER 70 OR OVER 400 NOTIFY 03/29/19 Sertraline Hcl* (Sertraline Hcl*) 25 Mg Tablet, 25 MG GTB DAILY, #30 TAB 03/29/19 Lorazepam* (Ativan*) 0.5 Mg Tablet, 0.5 MG GTB DAILY PRN for ANXIETY, #30 TAB 03/29/19 Quetiapine Fumarate* (Seroquel*) 25 Mg Tablet, 25 MG GTB HS, #30 TAB 03/29/19 Lorazepam* (Lorazepam*) 0.5 Mg Tablet, 0.5 MG GTB DAILY PRN for ANXIETY, TAB 03/29/19 Clonidine Hcl* (Clonidine Hcl*) 0.1 Mg Tab, 0.1 MG GTB DAILY PRN for ELEVATED BLOOD PRESSURE, TAB SBP >160 03/29/19 Azelastine Hcl* (Azelastine Hcl*) 137 Mcg/0.137 Ml [place].pump, 2 SPRAYS NASAL BID, #1 EA TO EACH NOSTRIL 03/29/19 Carvedilol* (Carvedilol*) 12.5 Mg Tablet, 12.5 MG GTB BID, #60 TAB 03/29/19 Diltiazem Hcl* (Cardizem CD*) 240 Mg Cap.sr.24h, 240 MG GTB DAILY, #30 CAP 03/29/19 Ergocalciferol (Vitamin D2) (VITAMIN D2) 50,000 Unit Capsule, 75124 UNIT GTB EVERY MONDAY, CAP 03/29/19 Hydralazine Hcl* (Hydralazine Hcl*) 50 Mg Tab, 50 MG GTB TID PRN for ELEVATED BLOOD PRESSURE, #60 TAB 03/29/19 Losartan Potassium* (Losartan Potassium*) 100 Mg Tablet, 100 MG GTB DAILY, TAB 03/29/19 Metoprolol Succinate* (Toprol XL*) 25 Mg Tab.sr.24h, 25 MG GTB DAILY, #30 TAB 03/29/19 Linagliptin (TRADJENTA) 5 Mg Tablet, 5 MG GTB DAILY, TAB 03/29/19 Albuterol Sulfate* (Proair HFA*) 8.5 Gm Hfa.aer.ad, 2 PUFF INH Q4H PRN for WHEEZING AND SOB, #1 INHALER 03/29/19 Ranitidine Hcl* (Ranitidine Hcl*) 300 Mg Tablet, 300 MG GTB HS, #30 TAB 03/29/19 Levetiracetam* (Keppra*) 500 Mg Tablet, 500 MG GTB BID, TAB 03/29/19 Gabapentin* (Gabapentin*) 100 Mg Capsule, 100 MG GTB QHS, #90 CAP 03/29/19 Doxazosin Mesylate* (Doxazosin Mesylate*) 2 Mg Tablet, 2 MG GTB HS, TAB 03/29/19 Docusate Sodium* (Dok*) 100 Mg Tablet, 100 MG GTB BID, #60 CAP 03/29/19 Cyanocobalamin (Vitamin B-12) (Cyanocobalamin Injection) 1,000 Mcg/1 Ml Vial, 1000 MCG IJ EVERY MONDAY, VIAL 03/29/19 Clopidogrel Bisulfate (Clopidogrel) 75 Mg Tablet, 75 MG GTB DAILY, #30 TAB 03/29/19 Calcium Carbonate ([place]ysco-500) 500 Mg Tablet, 500 MG GTB DAILY, TAB 03/29/19 Baclofen* (Baclofen*) 10 Mg Tablet, 10 MG GTB BID, TAB 03/29/19 Atorvastatin* (Atorvastatin*) 40 Mg Tablet, 40 MG GTB QHS, #30 TAB 03/29/19 Aspirin (Low Dose Aspirin) 81 Mg Tablet.dr, 81 MG GTB DAILY, #30 TAB 03/29/19 Medications Current Medications IV Flush (NS 3 ml) 3 ml PER PROTOCOL IV ; Start 03/29/19 at 13:30 Ondansetron HCl (Zofran Inj) 4 mg Q6H PRN IV NAUSEA/VOMITING Last administered on 04/07/19at 18:53; Admin Dose 4 MG; Start 03/29/19 at 13:30 Acetaminophen (Tylenol Tab) 650 mg Q6H PRN PO .PAIN 1-3 OR TEMP Last administered on 03/31/19at 05:48; Admin Dose 650 MG; Start 03/29/19 at 13:30 Hydralazine HCl (Apresoline) 10 mg Q4H PRN IV sbp >160 Last administered on 04/10/19at 02:35; Admin Dose 10 MG; Start 03/29/19 at 14:00 Miscellaneous Information 1 ea NOTE XX ; Start 03/29/19 at 14:30 Glucose (Glutose) 15 gm Q15M PRN PO DECREASED GLUCOSE; Start 03/29/19 at 14:30 Glucose (Glutose) 22.5 gm Q15M PRN PO DECREASED GLUCOSE; Start 03/29/19 at 14:30 Dextrose (D50w Syringe) 25 ml Q15M PRN IV DECREASED GLUCOSE; Start 03/29/19 at 14:30 Dextrose (D50w Syringe) 50 ml Q15M PRN IV DECREASED GLUCOSE; Start 03/29/19 at 14:30 Glucagon (Glucagen) 1 mg Q15M PRN IM DECREASED GLUCOSE; Start 03/29/19 at 14:30 Glucose (Glutose) 15 gm Q15M PRN BUCCAL DECREASED GLUCOSE; Start 03/29/19 at 14:30 Albumin Human 100 ml @ 100 mls/hr WITH DIALYSIS PRN IV SBP <90 DURING DIALYSIS Last administered on 04/10/19at 16:01; Admin Dose 100 MLS/HR; Start 03/29/19 at 17:00 Albuterol/ Ipratropium (Duoneb) 3 ml Q2H RESP THERAPY PRN HHN WHEEZING AND RESP DISTRESS Last administered on 04/09/19at 08:52; Admin Dose 3 ML; Start 03/29/19 at 18:00 Lorazepam (Ativan) 0.5 mg Q4H PRN IV AGITATION Last administered on 04/02/19at 03:55; Admin Dose 0.5 MG; Start 03/29/19 at 18:00 IV Flush (NS 10 ml) 10 ml Q8 PRN IV IV PROTOCOL; Start 03/29/19 at 18:00 Labetalol HCl (Labetalol) 10 mg Q4H PRN IV sbp >160; Start 03/30/19 at 09:00 Haloperidol (Haldol) 5 mg Q6H PRN IM agitation Last administered on 03/31/19at 00:10; Admin Dose 5 MG; Start 03/30/19 at 10:00 Heparin Sodium (Porcine) (Heparin (1000 Units/ml)) 3,200 unit AFTER DIALYSIS CATHETER Last administered on 04/10/19 18:31; Admin Dose 3,200 UNIT; Start 03/30/19 at 17:00 Atorvastatin Calcium (Lipitor) 40 mg HS NGT Last administered on 04/10/19 21:53; Admin Dose 40 MG; Start 03/31/19 at 21:00 Baclofen (Lioresal) 10 mg BID GTB Last administered on 04/11/19 08:45; Admin Dose 10 MG; Start 03/31/19 at 21:00 Doxazosin Mesylate (Cardura) 2 mg DAILY NGT Last administered on 04/11/19 08:46; Admin Dose 2 MG; Start 03/31/19 at 14:30 Gabapentin (Neurontin) 100 mg QHS PO Last administered on 04/10/19 21:53; Admin Dose 100 MG; Start 03/31/19 at 21:00 Losartan Potassium (Cozaar) 100 mg DAILY NGT Last administered on 04/10/19 10:07; Admin Dose 100 MG; Start 03/31/19 at 14:30 Sertraline HCl (Zoloft) 25 mg HS NGT Last administered on 04/10/19 21:59; Admin Dose 25 MG; Start 03/31/19 at 21:00 Acetaminophen (Tylenol Liquid) 650 mg Q4H PRN PEG MILD PAIN(1-3)OR ELEVATED TEMP Last administered on 04/11/19 05:14; Admin Dose 650 MG; Start 03/31/19 at 16:00 Insulin Aspart (Novolog Insulin Pen) NOVOLOG *MILD* ALGORI... Q6 SC Last administered on 04/10/19 05:36; Admin Dose 1 UNIT; Start 04/02/19 at 12:00 Lactobacillus Acidophilus/ Rhamnosus (Culturelle) 1 cap TID GTB Last administered on 04/11/19 08:45; Admin Dose 1 CAP; Start 04/02/19 at 13:00 Hydralazine HCl (Apresoline) 75 mg TID NGT Last administered on 04/10/19 21:50; Admin Dose 75 MG; Start 04/02/19 at 21:00 Epoetin [place]-epbx (Retacrit (Esrd)) 10,000 unit MoWeFr@1700 SC Last administered on 04/10/19 21:52; Admin Dose 10,000 UNIT; Start 04/03/19 at 19:30 Lansoprazole (Prevacid) 30 mg BID@0600,1800 GTB Last administered on 04/11/19 05:14; Admin Dose 30 MG; Start 04/04/19 at 18:00 Multivit/Ca Carb/ B Cmplx/FA/Prenat (Karena-Geovanni) 1 tab DAILY GTB Last adm inistered on 04/11/19 08:45; Admin Dose 1 TAB; Start 04/04/19 at 11:30 Aspirin (Aspirin) 81 mg DAILY PO Last administered on 04/11/19 08:46; Admin Dose 81 MG; Start 04/05/19 at 09:00; Status Hold Clopidogrel Bisulfate (plaVIX) 75 mg DAILY GTB Last administered on 04/11/19 08:45; Admin Dose 75 MG; Start 04/07/19 at 09:00; Status Hold Quetiapine Fumarate (Seroquel) 50 mg BID GTB Last administered on 04/11/19 08:45; Admin Dose 50 MG; Start 04/07/19 at 09:00 Propofol 100 ml @ 2.097 mls/ hr Q12H PRN IV AGITATION Last administered on 04/08/19 11:39; Admin Dose 6.291 MLS/HR; Start 04/08/19 at 00:00 Fentanyl 100 ml @ 2.5 mls/hr TITRATE IV Last administered on 04/10/19 17:25; Admin Dose 5 MLS/HR; Start 04/08/19 at 00:00 Midazolam HCl 50 ml @ 1 mls/hr TITRATE PRN IV agitation Last administered on 04/08/19 22:04; Admin Dose 3 MLS/HR; Start 04/08/19 at 00:00 Norepinephrine 250 ml @ 1.875 mls/ hr TITRATE IV Last administered on 04/08/19 22:04; Admin Dose 7.5 MLS/HR; Start 04/08/19 at 00:00 Vancomycin HCl (Vanco Iv Per Pharmacy) VANCOMYCIN PER PHARMACY PER PROTOCOL XX ; Start 04/08/19 at 00:30 Levetiracetam 100 ml @ 400 mls/hr Q12 IVPB Last administered on 04/11/19 09:39; Admin Dose 400 MLS/HR; Start 04/08/19 at 09:30 Nicardipine HCl 50 mg/Sodium Chloride 500 ml @ 50 mls/hr TITRATE IV ; Start 04/08/19 at 09:30 Piperacillin Sod/ Tazobactam Sod 50 ml @ 100 mls/hr Q8H IVPB Last administered on 04/11/19at 05:14; Admin Dose 100 MLS/HR; Start 04/08/19 at 21:00 Mupirocin (Bactroban) 1 applic BID TOP Last administered on 04/11/19 09:42; Admin Dose 1 APPLIC; Start 04/09/19 at 21:00 Albuterol (Ventolin Hfa) 4 puff Q6H RESP THERAPY INH Last administered on 04/11/19 07:57; Admin Dose 4 PUFF; Start 04/10/19 at 02:00 Carvedilol (Coreg) 12.5 mg QID NGT Last administered on 04/11/19at 08:46; Admin Dose 12.5 MG; Start 04/10/19 at 09:00 Miscellaneous Information (*Rx Drug Level Order Reminder*) RANDOM VANCO LEVEL ... 0500 ONCE XX ; Start 04/13/19 at 05:00; Stop 04/13/19 at 05:01 Assessment/Plan Assessment/Plan (Daily) IMP: 1. Respiratory Failure/Ventilator Dependence 2. Septic Shock 3. Chronic renal insufficiency 4. Anemia likely of chronic disease 5. Encephalopathy toxic metabolic RECS: 1. Ventilator support--will resume ventilator weaning as tolerated 2. Broad-spectrum antibiotics. 3. HD/UD. 4. Anti-seizure medications. 5. Continue precedex gtt Critical care time 40 minutes. JOSH SURESH MD Apr 11, 2019 12:55
[2019-04-11] MEDS: DEXMEDETOMIDINE IN DEXTROSE 5% 50 ML IV SCH (13:27)
[2019-04-11] MEDS: FENTAnyl (DRIP) 1000 mcg/100mL 100 ML IV SCH (19:36)
[2019-04-11] MEDS: SERTRALINE 50 MG TAB NGT SCH (21:45)
[2019-04-11] MEDS: GABAPENTIN 100 MG CAP PO SCH (21:45)
[2019-04-11] MEDS: ATORVASTATIN 40 MG TAB NGT SCH (21:45)
[2019-04-12] VITALS (100 sets, daily range): BP systolic 65–175; BP diastolic 34–92; PULSE 62–92; RESP 0–25
[2019-04-12] MEDS: ALBUTEROL HFA 8 GM INHALER INH SCH ×3 (01:08→19:32)
[2019-04-12] MEDS: LANSOPRAZOLE 30 MG CAP GTB SCH ×2 (05:19→18:38)
[2019-04-12] MEDS: PIPER-TAZO 2.25 GM/NS 50 ML IVPB SCH (05:19)
[2019-04-12] MEDS: DEXMEDETOMIDINE IN DEXTROSE 5% 50 ML IV SCH (05:23)
[2019-04-12] MEDS: INSULIN ASPART [NOVOLOG] 3 ML PEN SC SCH ×4 (05:44→18:00)
[2019-04-12] MEDS: NORepinephrine 8MG/250 ML (PMX 250 ML IV SCH (06:27)
[2019-04-12] MEDS: LOSARTAN 50 MG TAB NGT SCH (08:53)
[2019-04-12] MEDS: DOXAZOSIN 2 MG TAB NGT SCH (08:54)
[2019-04-12] MEDS: ALBUMIN HUMAN 25% 100 ML IV PRN (08:58)
[2019-04-12] MEDS: MIDAZOLAM (DRIP) 50 mg/50 mL 50 ML IV PRN ×2 (09:15→19:54)
--- NOTE | 2019-04-12 09:48 | CONS ---
Consult Date/Type/Reason Admit Date/Time Mar 29, 2019 at 13:16 Initial Consult Date 04/07/19 Type of Consult Pulmonary Requesting Provider: LILLIAN ZHANG MD Date/Time of Note DATE: 04/12/19 TIME: 09:46 Subjective Patient continues mechanical ventilation. Remains minimally responsive unable to protect airway if patient was extubated. Continues hemodialysis this morning. Objective Vital Signs Date Temp Pulse Resp B/P (MAP) Pulse Ox O2 O2 Flow FiO2 Time Delivery Rate 04/12/19 83 19 100 35 08:02 04/12/19 82/34 (50) Mechanical 06:00 Ventilator 04/12/19 98.2 04:00 Intake and Output 04/11/19 04/11/19 04/12/19 1515:00 23:00 07:00 IntakeIntake Total 58.0 ml 1136.0 ml 45.5 ml OutputOutput Total 80 ml 300 ml BalanceBalance 58.0 ml 1056.0 ml -254.5 ml Exam GENERAL: Chronically ill-appearing gentleman on mechanical ventilation orally intubated VITAL SIGNS: per chart NECK: Supple. No JVD or lymphadenopathy. CARDIAC EXAM: S1, S2. No added sounds or murmurs. CHEST: Diminished air entry bilaterally ABDOMEN: Soft, nontender. No guarding or rebound. EXTREMITIES: No cyanosis, clubbing or edema. NEUROLOGIC: Generalized weakness. Unable to assess Vent Setting Ventilator Support Mode: AC Fraction of Inspired Oxygen pe: 35 Positive End Expiratory Pressu: 5.0 Results/Medications Result Diagram: 04/12/19 0437 04/12/19 0437 Results 24 hrs Laboratory Tests Test 04/11/19 13:07 04/11/19 18:19 04/11/19 18:30 04/12/19 00:32 Bedside Glucose 114 117 110 Hemoglobin 7.7 L Hematocrit 24.1 L Test 04/12/19 04:37 04/12/19 05:26 White Blood Count 7.8 Red Blood Count 2.47 L Hemoglobin 7.3 L Hematocrit 23.3 L Mean Corpuscular Volume 94.3 Mean Corpuscular 29.6 Hemoglobin Mean Corpuscular 31.3 L Hemoglobin Concent Red Cell Distribution 16.9 H Width Platelet Count 141 Mean Platelet Volume 10.8 H Immature Granulocytes % 0.500 H Neutrophils % 77.7 H Lymphocytes % 10.0 L Monocytes % 6.2 Eosinophils % 5.1 Basophils % 0.5 Nucleated Red Blood 0.0 Cells % Immature Granulocytes # 0.040 H Neutrophils # 6.0 Lymphocytes # 0.8 Monocytes # 0.5 Eosinophils # 0.4 Basophils # 0.0 Nucleated Red Blood 0.0 Cells # Sodium Level 137 Potassium Level 4.0 Chloride Level 99 Carbon Dioxide Level 26 Anion Gap 12 Blood Urea Nitrogen 27 H Creatinine 5.31 H Est Glomerular Filtrat 11 L Rate mL/min Glucose Level 100 Calcium Level 9.0 Bedside Glucose 101 Medications Current Medications IV Flush (NS 3 ml) 3 ml PER PROTOCOL IV ; Start 03/29/19 at 13:30 Ondansetron HCl (Zofran Inj) 4 mg Q6H PRN IV NAUSEA/VOMITING Last administered on 04/07/19at 18:53; Admin Dose 4 MG; Start 03/29/19 at 13:30 Acetaminophen (Tylenol Tab) 650 mg Q6H PRN PO .PAIN 1-3 OR TEMP Last administered on 03/31/19at 05:48; Admin Dose 650 MG; Start 03/29/19 at 13:30 Hydralazine HCl (Apresoline) 10 mg Q4H PRN IV sbp >160 Last administered on 04/10/19at 02:35; Admin Dose 10 MG; Start 03/29/19 at 14:00 Miscellaneous Information 1 ea NOTE XX ; Start 03/29/19 at 14:30 Glucose (Glutose) 15 gm Q15M PRN PO DECREASED GLUCOSE; Start 03/29/19 at 14:30 Glucose (Glutose) 22.5 gm Q15M PRN PO DECREASED GLUCOSE; Start 03/29/19 at 14:30 Dextrose (D50w Syringe) 25 ml Q15M PRN IV DECREASED GLUCOSE; Start 03/29/19 at 14:30 Dextrose (D50w Syringe) 50 ml Q15M PRN IV DECREASED GLUCOSE; Start 03/29/19 at 14:30 Glucagon (Glucagen) 1 mg Q15M PRN IM DECREASED GLUCOSE; Start 03/29/19 at 14:30 Glucose (Glutose) 15 gm Q15M PRN BUCCAL DECREASED GLUCOSE; Start 03/29/19 at 14:30 Albumin Human 100 ml @ 100 mls/hr WITH DIALYSIS PRN IV SBP <90 DURING DIALYSIS Last administered on 04/12/19at 08:58; Admin Dose 100 MLS/HR; Start 03/29/19 at 17:00 Albuterol/ Ipratropium (Duoneb) 3 ml Q2H RESP THERAPY PRN HHN WHEEZING AND RESP DISTRESS Last administered on 04/09/19 08:52; Admin Dose 3 ML; Start 03/29/19 at 18:00 Lorazepam (Ativan) 0.5 mg Q4H PRN IV AGITATION Last administered on 04/02/19 03:55; Admin Dose 0.5 MG; Start 03/29/19 at 18:00 IV Flush (NS 10 ml) 10 ml Q8 PRN IV IV PROTOCOL; Start 03/29/19 at 18:00 Labetalol HCl (Labetalol) 10 mg Q4H PRN IV sbp >160; Start 03/30/19 at 09:00 Haloperidol (Haldol) 5 mg Q6H PRN IM agitation Last administered on 03/31/19 00:10; Admin Dose 5 MG; Start 03/30/19 at 10:00 Heparin Sodium (Porcine) (Heparin (1000 Units/ml)) 3,200 unit AFTER DIALYSIS CATHETER Last administered on 04/10/19 18:31; Admin Dose 3,200 UNIT; Start 03/30/19 at 17:00 Atorvastatin Calcium (Lipitor) 40 mg HS NGT Last administered on 04/11/19 21:45; Admin Dose 40 MG; Start 03/31/19 at 21:00 Baclofen (Lioresal) 10 mg BID GTB Last administered on 04/11/19 21:55; Admin Dose 10 MG; Start 03/31/19 at 21:00 Doxazosin Mesylate (Cardura) 2 mg DAILY NGT Last administered on 04/11/19 08:46; Admin Dose 2 MG; Start 03/31/19 at 14:30 Gabapentin (Neurontin) 100 mg QHS PO Last administered on 04/11/19 21:45; Admin Dose 100 MG; Start 03/31/19 at 21:00 Losartan Potassium (Cozaar) 100 mg DAILY NGT Last administered on 04/10/19 10:07; Admin Dose 100 MG; Start 03/31/19 at 14:30 Sertraline HCl (Zoloft) 25 mg HS NGT Last administered on 04/11/19 21:45; Admin Dose 25 MG; Start 03/31/19 at 21:00 Acetaminophen (Tylenol Liquid) 650 mg Q4H PRN PEG MILD PAIN(1-3)OR ELEVATED TEMP Last administered on 04/11/19 05:14; Admin Dose 650 MG; Start 03/31/19 at 16:00 Insulin Aspart (Novolog Insulin Pen) NOVOLOG *MILD* ALGORI... Q6 SC Last administered on 04/10/19 05:36; Admin Dose 1 UNIT; Start 04/02/19 at 12:00 Lactobacillus Acidophilus/ Rhamnosus (Culturelle) 1 cap TID GTB Last administered on 04/11/19 21:55; Admin Dose 1 CAP; Start 04/02/19 at 13:00 Hydralazine HCl (Apresoline) 75 mg TID NGT Last administered on 04/11/19 21:44; Admin Dose 75 MG; Start 04/02/19 at 21:00 Epoetin [place]-epbx (Retacrit (Esrd)) 10,000 unit MoWeFr@1700 SC Last administered on 04/10/19 21:52; Admin Dose 10,000 UNIT; Start 04/03/19 at 19:30 Lansoprazole (Prevacid) 30 mg BID@0600,1800 GTB Last administered on 04/12/19 05:19; Admin Dose 30 MG; Start 04/04/19 at 18:00 Multivit/Ca Carb/ B Cmplx/FA/Prenat (Karena-Geovanni) 1 tab DAILY GTB Last administered on 04/11/19 08:45; Admin Dose 1 TAB; Start 04/04/19 at 11:30 Aspirin (Aspirin) 81 mg DAILY PO Last administered on 04/11/19 08:46; Admin Dose 81 MG; Start 04/05/19 at 09:00; Status Hold Clopidogrel Bisulfate (plaVIX) 75 mg DAILY GTB Last administered on 04/11/19 08:45; Admin Dose 75 MG; Start 04/07/19 at 09:00; Status Hold Quetiapine Fumarate (Seroquel) 50 mg BID GTB Last administered on 04/11/19 21:45; Admin Dose 50 MG; Start 04/07/19 at 09:00 Propofol 100 ml @ 2.097 mls/ hr Q12H PRN IV AGITATION Last administered on 04/08/19 11:39; Admin Dose 6.291 MLS/HR; Start 04/08/19 at 00:00 Fentanyl 100 ml @ 2.5 mls/hr TITRATE IV Last administered on 04/11/19 19:36; Admin Dose 3 MLS/HR; Start 04/08/19 at 00:00 Midazolam HCl 50 ml @ 1 mls/hr TITRATE PRN IV agitation Last administered on 04/12/19 09:15; Admin Dose 1 MLS/HR; Start 04/08/19 at 00:00 Norepinephrine 250 ml @ 1.875 mls/ hr TITRATE IV Last administered on 04/12/19 06:27; Admin Dose 1.875 MLS/HR; Start 04/08/19 at 00:00 Vancomycin HCl (Vanco Iv Per Pharmacy) VANCOMYCIN PER PHARMACY PER PROTOCOL XX ; Start 04/08/19 at 00:30 Levetiracetam 100 ml @ 400 mls/hr Q12 IVPB Last administered on 04/11/19 21:15; Admin Dose 400 MLS/HR; Start 04/08/19 at 09:30 Nicardipine HCl 50 mg/Sodium Chloride 500 ml @ 50 mls/hr TITRATE IV ; Start 04/08/19 at 09:30 Piperacillin Sod/ Tazobactam Sod 50 ml @ 100 mls/hr Q8H IVPB Last administered on 04/12/19 05:19; Admin Dose 100 MLS/HR; Start 04/08/19 at 21:00 Mupirocin (Bactroban) 1 applic BID TOP Last administered on 04/11/19at 21:46; Admin Dose 1 APPLIC; Start 04/09/19 at 21:00 Carvedilol (Coreg) 12.5 mg QID NGT Last administered on 04/11/19 21:44; Admin Dose 12.5 MG; Start 04/10/19 at 09:00 Miscellaneous Information (*Rx Drug Level Order Reminder*) RANDOM VANCO LEVEL ... 0500 ONCE XX ; Start 04/13/19 at 05:00; Stop 04/13/19 at 05:01 Albuterol/ Ipratropium (Duoneb) 3 ml Q6HWA RESP THERAPY HHN ; Start 04/12/19 at 14:00 Budesonide (Pulmicort (Neb)) 0.5 mg BID RESP THERAPY HHN ; Start 04/12/19 at 09:00 Assessment/Plan Hospital Course (Demo Recall) IMP: 1. Respiratory Failure/Ventilator Dependence 2. Septic Shock 3. Chronic renal insufficiency 4. Anemia likely of chronic disease 5. Encephalopathy toxic metabolic RECS: 1. Ventilator support--patient is unable to be liberated from mechanical ventilation secondary to his encephalopathy. I would discuss goals of care and anticipate to tracheostomy. 2. Broad-spectrum antibiotics. 3. HD/UD. 4. Anti-seizure medications. 5. DC Precedex is currently not able to liberate from mechanical ventilation. Transition to Versed as needed Critical care time 40 minutes. SAMMI MOSES MD, [facility] Apr 12, 2019 09:48
--- NOTE | 2019-04-12 10:07 | CONS ---
Assessment/Plan Assessment/Plan Hospital Course (Demo Recall) ID PROGRESS NOTE CURRENT ABX: DAY # =>Vanco IV + Zosyn 04/12/1943604/12/197 24H INTERVAL SUMMARY * NEW ISSUES: Liquid diarrhea on current ABX * Non-communicative, orally intubated on mechanical ventilation -- chart reviewed * Indwelling's: Endotracheal tube right chest PermCath, PEG, Winters, PICC line DIAGNOSTIC IMAGING * 04/12/19 CXR: IMPRESSION:1. Interval decreased pulmonary edema. 2. Persistent dense opacification of the left base by combination of consolidation and small pleural effusion. 3. Unchanged small right pleural effusion. 4. Stable position of support devices. * 04/11/19 CXR: IMPRESSION:Calcified atherosclerosis in the aorta. Stable left lower lung infiltrates with small left pleural effusion.Mild interval increase in patchy infiltrates throughout the right lung. Hypoinflated lungs with an elevated right hemidiaphragm. MICRO * BCx(-) * 04/07/19 BCx (-) * 04/08/19 Sputum (+) GNR x2 RESPIRATORY CULTURE Final Organism 1 K PNEUMO ESBL QUANTITY 2+ . MULTI DRUG RESISTANT ORGANISM Organism 2 SERRATIA MARCESCENS QUANTITY 2+ KLEB PNEUM KLEB PNEUM S MARCESCE M.I.C. RX M.I.C. RX M.I.C. RX --------- --- --------- --- --------- --- AMIKACIN <=2 S CEFAZOLIN R CEFEPIME 2 S CEFOTAXIME R S CIPROFLOXACIN 2 I <=0.25 S GENTAMICIN >=16 R <=1 S LEVOFLOXACIN 1 S <=0.12 S MEROPENEM 0.032 S TOBRAMYCIN >=16 R <=1 S TRIMETHOPRIM/SULFAMETHOXAZOLE >=320 R <=20 S PIPERACILLIN/TAZOBACTAM 16 S ------ PHYSICAL EXAMINATION: GENERAL: VSS, NAD HEENT: AT, NC, NECK: Supple, CHEST: Rise symmetrical HEART: Pulse RRR ABDOMEN: Benign EXTREMITIES: Warm, dry SKIN: No rash, no diaphoresis ID ASSESSMENT 58 yo M admit with: 1. Sepsis 2. Acute respiratory failure possibly aspirated 3. Aspiration GNR HCAP 4. Encephalopathy, possible acute on chronic CVA 5. End-stage renal disease, hemodialysis dependent 6. Dysphagia 7. Liquid diarrhea on current ABX (+)MRSA Nares ->Bactroban ABX ALLERGIES: KNDA INVASIVES: PIV CURRENT ABX: DAY # => Vanco IV + Zosyn ID RECOMMENDATIONS/PLAN: 1. DC current ABX --due to Liquid diarrhea on current ABX 2. Patient on HD -> Lets de-escalate ABX to Amikacin + Flagyl . Consultation Date/Type/Reason Admit Date/Time Mar 29, 2019 at 13:16 Initial Consult Date 04/07/19 Requesting Provider: LILLIAN ZHANG MD Date/Time of Note DATE: 04/12/19 TIME: 10:00 Exam/Review of Systems Exam Vitals Vital Signs Date Temp Pulse Resp B/P (MAP) Pulse Ox O2 O2 Flow FiO2 Time Delivery Rate 04/12/19 83 19 100 35 08:02 04/12/19 82/34 (50) Mechanical 06:00 Ventilator 04/12/19 98.2 04:00 Intake and Output 04/11/19 04/11/19 04/12/19 1414:59 22:59 06:59 IntakeIntake Total 60.0 ml 1136.0 ml 52.0 ml OutputOutput Total 60 ml 320 ml BalanceBalance 60.0 ml 1076.0 ml -268.0 ml Results Result Diagram: 04/12/19 0437 04/12/19 0437 Results 24hrs Laboratory Tests Test 04/11/19 13:07 04/11/19 18:19 04/11/19 18:30 04/12/19 00:32 Bedside Glucose 114 117 110 Hemoglobin 7.7 L Hematocrit 24.1 L Test 04/12/19 04:37 04/12/19 05:26 White Blood Count 7.8 Red Blood Count 2.47 L Hemoglobin 7.3 L Hematocrit 23.3 L Mean Corpuscular Volume 94.3 Mean Corpuscular 29.6 Hemoglobin Mean Corpuscular 31.3 L Hemoglobin Concent Red Cell Distribution 16.9 H Width Platelet Count 141 Mean Platelet Volume 10.8 H Immature Granulocytes % 0.500 H Neutrophils % 77.7 H Lymphocytes % 10.0 L Monocytes % 6.2 Eosinophils % 5.1 Basophils % 0.5 Nucleated Red Blood 0.0 Cells % Immature Granulocytes # 0.040 H Neutrophils # 6.0 Lymphocytes # 0.8 Monocytes # 0.5 Eosinophils # 0.4 Basophils # 0.0 Nucleated Red Blood 0.0 Cells # Sodium Level 137 Potassium Level 4.0 Chloride Level 99 Carbon Dioxide Level 26 Anion Gap 12 Blood Urea Nitrogen 27 H Creatinine 5.31 H Est Glomerular Filtrat 11 L Rate mL/min Glucose Level 100 Calcium Level 9.0 Bedside Glucose 101 Medications Medication Current Medications IV Flush (NS 3 ml) 3 ml PER PROTOCOL IV ; Start 03/29/19 at 13:30 Ondansetron HCl (Zofran Inj) 4 mg Q6H PRN IV NAUSEA/VOMITING Last administered on 04/07/19at 18:53; Admin Dose 4 MG; Start 03/29/19 at 13:30 Acetaminophen (Tylenol Tab) 650 mg Q6H PRN PO .PAIN 1-3 OR TEMP Last administered on 03/31/19at 05:48; Admin Dose 650 MG; Start 03/29/19 at 13:30 Hydralazine HCl (Apresoline) 10 mg Q4H PRN IV sbp >160 Last administered on 04/10/19at 02:35; Admin Dose 10 MG; Start 03/29/19 at 14:00 Miscellaneous Information 1 ea NOTE XX ; Start 03/29/19 at 14:30 Glucose (Glutose) 15 gm Q15M PRN PO DECREASED GLUCOSE; Start 03/29/19 at 14:30 Glucose (Glutose) 22.5 gm Q15M PRN PO DECREASED GLUCOSE; Start 03/29/19 at 14:30 Dextrose (D50w Syringe) 25 ml Q15M PRN IV DECREASED GLUCOSE; Start 03/29/19 at 14:30 Dextrose (D50w Syringe) 50 ml Q15M PRN IV DECREASED GLUCOSE; Start 03/29/19 at 14:30 Glucagon (Glucagen) 1 mg Q15M PRN IM DECREASED GLUCOSE; Start 03/29/19 at 14:30 Glucose (Glutose) 15 gm Q15M PRN BUCCAL DECREASED GLUCOSE; Start 03/29/19 at 14:30 Albumin Human 100 ml @ 100 mls/hr WITH DIALYSIS PRN IV SBP <90 DURING DIALYSIS Last administered on 04/12/19 08:58; Admin Dose 100 MLS/HR; Start 03/29/19 at 17:00 Albuterol/ Ipratropium (Duoneb) 3 ml Q2H RESP THERAPY PRN HHN WHEEZING AND RESP DISTRESS Last administered on 04/09/19 08:52; Admin Dose 3 ML; Start 03/29/19 at 18:00 Lorazepam (Ativan) 0.5 mg Q4H PRN IV AGITATION Last administered on 04/02/19 03:55; Admin Dose 0.5 MG; Start 03/29/19 at 18:00 IV Flush (NS 10 ml) 10 ml Q8 PRN IV IV PROTOCOL; Start 03/29/19 at 18:00 Labetalol HCl (Labetalol) 10 mg Q4H PRN IV sbp >160; Start 03/30/19 at 09:00 Haloperidol (Haldol) 5 mg Q6H PRN IM agitation Last administered on 03/31/19 00:10; Admin Dose 5 MG; Start 03/30/19 at 10:00 Heparin Sodium (Porcine) (Heparin (1000 Units/ml)) 3,200 unit AFTER DIALYSIS CATHETER Last administered on 04/10/19 18:31; Admin Dose 3,200 UNIT; Start 03/30/19 at 17:00 Atorvastatin Calcium (Lipitor) 40 mg HS NGT Last administered on 04/11/19 21:45; Admin Dose 40 MG; Start 03/31/19 at 21:00 Baclofen (Lioresal) 10 mg BID GTB Last administered on 04/11/19 21:55; Admin Dose 10 MG; Start 03/31/19 at 21:00 Doxazosin Mesylate (Cardura) 2 mg DAILY NGT Last administered on 04/11/19 08:46; Admin Dose 2 MG; Start 03/31/19 at 14:30 Gabapentin (Neurontin) 100 mg QHS PO Last administered on 04/11/19 21:45; Admin Dose 100 MG; Start 03/31/19 at 21:00 Losartan Potassium (Cozaar) 100 mg DAILY NGT Last administered on 04/10/19 10:07; Admin Dose 100 MG; Start 03/31/19 at 14:30 Sertraline HCl (Zoloft) 25 mg HS NGT Last administered on 04/11/19 21:45; Admin Dose 25 MG; Start 03/31/19 at 21:00 Acetaminophen (Tylenol Liquid) 650 mg Q4H PRN PEG MILD PAIN(1-3)OR ELEVATED TEMP Last administered on 04/11/19 05:14; Admin Dose 650 MG; Start 03/31/19 at 16:00 Insulin Aspart (Novolog Insulin Pen) NOVOLOG *MILD* ALGORI... Q6 SC Last administered on 04/10/19 05:36; Admin Dose 1 UNIT; Start 04/02/19 at 12:00 Lactobacillus Acidophilus/ Rhamnosus (Culturelle) 1 cap TID GTB Last administered on 04/11/19 21:55; Admin Dose 1 CAP; Start 04/02/19 at 13:00 Hydralazine HCl (Apresoline) 75 mg TID NGT Last administered on 04/11/19 21:44; Admin Dose 75 MG; Start 04/02/19 at 21:00 Epoetin [place]-epbx (Retacrit (Esrd)) 10,000 unit MoWeFr@1700 SC Last adm inistered on 04/10/19 21:52; Admin Dose 10,000 UNIT; Start 04/03/19 at 19:30 Lansoprazole (Prevacid) 30 mg BID@0600,1800 GTB Last administered on 04/12/19 05:19; Admin Dose 30 MG; Start 04/04/19 at 18:00 Multivit/Ca Carb/ B Cmplx/FA/Prenat (Karena-Geovanni) 1 tab DAILY GTB Last administered on 04/11/19 08:45; Admin Dose 1 TAB; Start 04/04/19 at 11:30 Aspirin (Aspirin) 81 mg DAILY PO Last administered on 04/11/19 08:46; Admin Dose 81 MG; Start 04/05/19 at 09:00; Status Hold Clopidogrel Bisulfate (plaVIX) 75 mg DAILY GTB Last administered on 04/11/19 08:45; Admin Dose 75 MG; Start 04/07/19 at 09:00; Status Hold Quetiapine Fumarate (Seroquel) 50 mg BID GTB Last administered on 04/11/19 21:45; Admin Dose 50 MG; Start 04/07/19 at 09:00 Propofol 100 ml @ 2.097 mls/ hr Q12H PRN IV AGITATION Last administered on 04/08/19 11:39; Admin Dose 6.291 MLS/HR; Start 04/08/19 at 00:00 Fentanyl 100 ml @ 2.5 mls/hr TITRATE IV Last administered on 04/11/19 19:36; Admin Dose 3 MLS/HR; Start 04/08/19 at 00:00 Midazolam HCl 50 ml @ 1 mls/hr TITRATE PRN IV agitation Last administered on 04/12/19 09:15; Admin Dose 1 MLS/HR; Start 04/08/19 at 00:00 Norepinephrine 250 ml @ 1.875 mls/ hr TITRATE IV Last administered on 04/12/19 06:27; Admin Dose 1.875 MLS/HR; Start 04/08/19 at 00:00 Vancomycin HCl (Vanco Iv Per Pharmacy) VANCOMYCIN PER PHARMACY PER PROTOCOL XX ; Start 04/08/19 at 00:30 Levetiracetam 100 ml @ 400 mls/hr Q12 IVPB Last administered on 04/11/19 21:15; Admin Dose 400 MLS/HR; Start 04/08/19 at 09:30 Nicardipine HCl 50 mg/Sodium Chloride 500 ml @ 50 mls/hr TITRATE IV ; Start 04/08/19 at 09:30 Piperacillin Sod/ Tazobactam Sod 50 ml @ 100 mls/hr Q8H IVPB Last administered on 04/12/19 05:19; Admin Dose 100 MLS/HR; Start 04/08/19 at 21:00 Mupirocin (Bactroban) 1 applic BID TOP Last administered on 04/11/19 21:46; Admin Dose 1 APPLIC; Start 04/09/19 at 21:00 Carvedilol (Coreg) 12.5 mg QID NGT Last administered on 04/11/19 21:44; Admin Dose 12.5 MG; Start 04/10/19 at 09:00 Miscellaneous Information (*Rx Drug Level Order Reminder*) RANDOM VANCO LEVEL ... 0500 ONCE XX ; Start 04/13/19 at 05:00; Stop 04/13/19 at 05:01 Albuterol/ Ipratropium (Duoneb) 3 ml Q6HWA RESP THERAPY N ; Start 04/12/19 at 14:00 Budesonide (Pulmicort (Neb)) 0.5 mg BID RESP THERAPY N ; Start 04/12/19 at 09:00 PEE CHAIDEZ NP Apr 12, 2019 10:07
--- NOTE | 2019-04-12 10:23 | CONS ---
Assessment/Plan Assessment/Plan Assessment/Plan (Daily) 1. Acute hypoxemic respiratory failure intubated on ventilator 2. Accelerated HTN 3. ESRD on HD - MWF schedule at [facility] [place] 4. H/o CAD s/p CABG before 5. H/o CAD with previous recent stent placement in 09/2018 6. h/o HTN 7. H/o DM II 8. h/o HL 9. 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 H/o BPH -EGD 04/03/2019 Moderate distal esophagitis. Gastrostomy tube in place. Gastritis rule out H. pylori infection. Biopsies obtained. Duodenitis. Colonoscopy 04/03/2019 8 sessile polyp in the cecum. Snared and retrieved. 6 mm sessile polyp ascending colon. Snared and retrieved. 6 mm sessile polyp sigmoid. Snared and retrieved. 20 mm sessile polyp sigmoid. Saline assisted lipectomy plus localization tattoo. Moderate-sized internal hemorrhoids Plan: Patient comfortable no new events. Grimaces to painful stimuli but not opening eyes and following commands consistently. s/p HD yesterday 2.3 L removed,- will continue pt on MWF schedule while being in hospital- Ventilator management as per pulmonary - BP controlled with Losartan 100mg po daily Coreg 25 BID, Hydralazine 75 mg pO TID for better BP control Epogen 78363 units SQ MWF will follow up Consultation Date/Type/Reason Admit Date/Time Mar 29, 2019 at 13:16 Initial Consult Date 03/29/19 Type of Consult NEPHROLOGY Requesting Provider: LILLIAN ZHANG MD Date/Time of Note DATE: 04/12/19 TIME: 10:23 24 HR Interval Summary Free Text/Dictation Patient comfortable no new events. Grimaces to painful stimuli but not opening eyes and following commands consistently. Exam/Review of Systems Exam Vitals Vital Signs Date Temp Pulse Resp B/P (MAP) Pulse Ox O2 O2 Flow FiO2 Time Delivery Rate 04/12/19 83 19 100 35 08:02 04/12/19 82/34 (50) Mechanical 06:00 Ventilator 04/12/19 98.2 04:00 Intake and Output 04/11/19 04/11/19 04/12/19 1414:59 22:59 06:59 IntakeIntake Total 60.0 ml 1136.0 ml 52.0 ml OutputOutput Total 60 ml 320 ml BalanceBalance 60.0 ml 1076.0 ml -268.0 ml Exam Constitutional: intubated on ventilator , ET tube in place Respiratory: crackles/rales, diminished breath sounds Cardiovascular: regular rate and rhythm, nl pulses Gastrointestinal: soft, non-tender Musculoskeletal: swelling (1-2+pitting edema ) Extremities: normal pulses Neurological: Non focal Results Result Diagram: 04/12/19 0437 04/12/19 0437 Results 24hrs Laboratory Tests Test 04/11/19 13:07 04/11/19 18:19 04/11/19 18:30 04/12/19 00:32 Bedside Glucose 114 117 110 Hemoglobin 7.7 L Hematocrit 24.1 L Test 04/12/19 04:37 04/12/19 05:26 White Blood Count 7.8 Red Blood Count 2.47 L Hemoglobin 7.3 L Hematocrit 23.3 L Mean Corpuscular Volume 94.3 Mean Corpuscular 29.6 Hemoglobin Mean Corpuscular 31.3 L Hemoglobin Concent Red Cell Distribution 16.9 H Width Platelet Count 141 Mean Platelet Volume 10.8 H Immature Granulocytes % 0.500 H Neutrophils % 77.7 H Lymphocytes % 10.0 L Monocytes % 6.2 Eosinophils % 5.1 Basophils % 0.5 Nucleated Red Blood 0.0 Cells % Immature Granulocytes # 0.040 H Neutrophils # 6.0 Lymphocytes # 0.8 Monocytes # 0.5 Eosinophils # 0.4 Basophils # 0.0 Nucleated Red Blood 0.0 Cells # Sodium Level 137 Potassium Level 4.0 Chloride Level 99 Carbon Dioxide Level 26 Anion Gap 12 Blood Urea Nitrogen 27 H Creatinine 5.31 H Est Glomerular Filtrat 11 L Rate mL/min Glucose Level 100 Calcium Level 9.0 Bedside Glucose 101 Medications Medication Current Medications IV Flush (NS 3 ml) 3 ml PER PROTOCOL IV ; Start 03/29/19 at 13:30 Ondansetron HCl (Zofran Inj) 4 mg Q6H PRN IV NAUSEA/VOMITING Last administered on 04/07/19at 18:53; Admin Dose 4 MG; Start 03/29/19 at 13:30 Acetaminophen (Tylenol Tab) 650 mg Q6H PRN PO .PAIN 1-3 OR TEMP Last adm inistered on 03/31/19at 05:48; Admin Dose 650 MG; Start 03/29/19 at 13:30 Hydralazine HCl (Apresoline) 10 mg Q4H PRN IV sbp >160 Last administered on 04/10/19at 02:35; Admin Dose 10 MG; Start 03/29/19 at 14:00 Miscellaneous Information 1 ea NOTE XX ; Start 03/29/19 at 14:30 Glucose (Glutose) 15 gm Q15M PRN PO DECREASED GLUCOSE; Start 03/29/19 at 14:30 Glucose (Glutose) 22.5 gm Q15M PRN PO DECREASED GLUCOSE; Start 03/29/19 at 14:30 Dextrose (D50w Syringe) 25 ml Q15M PRN IV DECREASED GLUCOSE; Start 03/29/19 at 14:30 Dextrose (D50w Syringe) 50 ml Q15M PRN IV DECREASED GLUCOSE; Start 03/29/19 at 14:30 Glucagon (Glucagen) 1 mg Q15M PRN IM DECREASED GLUCOSE; Start 03/29/19 at 14:30 Glucose (Glutose) 15 gm Q15M PRN BUCCAL DECREASED GLUCOSE; Start 03/29/19 at 14:30 Albumin Human 100 ml @ 100 mls/hr WITH DIALYSIS PRN IV SBP <90 DURING DIALYSIS Last administered on 04/12/19at 08:58; Admin Dose 100 MLS/HR; Start 03/29/19 at 17:00 Albuterol/ Ipratropium (Duoneb) 3 ml Q2H RESP THERAPY PRN HHN WHEEZING AND RESP DISTRESS Last administered on 04/09/19at 08:52; Admin Dose 3 ML; Start 03/29/19 at 18:00 Lorazepam (Ativan) 0.5 mg Q4H PRN IV AGITATION Last administered on 04/02/19at 03:55; Admin Dose 0.5 MG; Start 03/29/19 at 18:00 IV Flush (NS 10 ml) 10 ml Q8 PRN IV IV PROTOCOL; Start 03/29/19 at 18:00 Labetalol HCl (Labetalol) 10 mg Q4H PRN IV sbp >160; Start 03/30/19 at 09:00 Haloperidol (Haldol) 5 mg Q6H PRN IM agitation Last administered on 03/31/19at 00:10; Admin Dose 5 MG; Start 03/30/19 at 10:00 Heparin Sodium (Porcine) (Heparin (1000 Units/ml)) 3,200 unit AFTER DIALYSIS CATHETER Last administered on 04/10/19 18:31; Admin Dose 3,200 UNIT; Start 03/30/19 at 17:00 Atorvastatin Calcium (Lipitor) 40 mg HS NGT Last administered on 04/11/19 21:45; Admin Dose 40 MG; Start 03/31/19 at 21:00 Baclofen (Lioresal) 10 mg BID GTB Last administered on 04/11/19 21:55; Admin Dose 10 MG; Start 03/31/19 at 21:00 Doxazosin Mesylate (Cardura) 2 mg DAILY NGT Last administered on 04/11/19 08 :46; Admin Dose 2 MG; Start 03/31/19 at 14:30 Gabapentin (Neurontin) 100 mg QHS PO Last administered on 04/11/19 21:45; Admin Dose 100 MG; Start 03/31/19 at 21:00 Losartan Potassium (Cozaar) 100 mg DAILY NGT Last administered on 04/10/19 10:07; Admin Dose 100 MG; Start 03/31/19 at 14:30 Sertraline HCl (Zoloft) 25 mg HS NGT Last administered on 04/11/19 21:45; Admin Dose 25 MG; Start 03/31/19 at 21:00 Acetaminophen (Tylenol Liquid) 650 mg Q4H PRN PEG MILD PAIN(1-3)OR ELEVATED TEMP Last administered on 04/11/19 05:14; Admin Dose 650 MG; Start 03/31/19 at 16:00 Insulin Aspart (Novolog Insulin Pen) NOVOLOG *MILD* ALGORI... Q6 SC Last administered on 04/10/19 05:36; Admin Dose 1 UNIT; Start 04/02/19 at 12:00 Lactobacillus Acidophilus/ Rhamnosus (Culturelle) 1 cap TID GTB Last administered on 04/11/19 21:55; Admin Dose 1 CAP; Start 04/02/19 at 13:00 Hydralazine HCl (Apresoline) 75 mg TID NGT Last administered on 04/11/19 21:44; Admin Dose 75 MG; Start 04/02/19 at 21:00 Epoetin [place]-epbx (Retacrit (Esrd)) 10,000 unit MoWeFr@1700 SC Last administered on 04/10/19 21:52; Admin Dose 10,000 UNIT; Start 04/03/19 at 19:30 Lansoprazole (Prevacid) 30 mg BID@0600,1800 GTB Last administered on 04/12/19 05:19; Admin Dose 30 MG; Start 04/04/19 at 18:00 Multivit/Ca Carb/ B Cmplx/FA/Prenat (Karena-Geovanni) 1 tab DAILY GTB Last administered on 04/11/19 08:45; Admin Dose 1 TAB; Start 04/04/19 at 11:30 Aspirin (Aspirin) 81 mg DAILY PO Last administered on 04/11/19 08:46; Admin Dose 81 MG; Start 04/05/19 at 09:00; Status Hold Clopidogrel Bisulfate (plaVIX) 75 mg DAILY GTB Last administered on 04/11/19 08:45; Admin Dose 75 MG; Start 04/07/19 at 09:00; Status Hold Quetiapine Fumarate (Seroquel) 50 mg BID GTB Last administered on 04/11/19 21:45; Admin Dose 50 MG; Start 04/07/19 at 09:00 Propofol 100 ml @ 2.097 mls/ hr Q12H PRN IV AGITATION Last administered on 04/08/19 11:39; Admin Dose 6.291 MLS/HR; Start 04/08/19 at 00:00 Fentanyl 100 ml @ 2.5 mls/hr TITRATE IV Last administered on 04/11/19 19:36; Admin Dose 3 MLS/HR; Start 04/08/19 at 00:00 Midazolam HCl 50 ml @ 1 mls/hr TITRATE PRN IV agitation Last administered on 04/12/19 09:15; Admin Dose 1 MLS/HR; Start 04/08/19 at 00:00 Norepinephrine 250 ml @ 1.875 mls/ hr TITRATE IV Last administered on 04/12/19 06:27; Admin Dose 1.875 MLS/HR; Start 04/08/19 at 00:00 Levetiracetam 100 ml @ 400 mls/hr Q12 IVPB Last administered on 04/11/19 21:15; Admin Dose 400 MLS/HR; Start 04/08/19 at 09:30 Nicardipine HCl 50 mg/Sodium Chloride 500 ml @ 50 mls/hr TITRATE IV ; Start 04/08/19 at 09:30 Mupirocin (Bactroban) 1 applic BID TOP Last administered on 04/11/19at 21:46; Admin Dose 1 APPLIC; Start 04/09/19 at 21:00 Carvedilol (Coreg) 12.5 mg QID NGT Last administered on 04/11/19at 21:44; Admin Dose 12.5 MG; Start 04/10/19 at 09:00 Albuterol/ Ipratropium (Duoneb) 3 ml Q6HWA RESP THERAPY HHN ; Start 04/12/19 at 14:00 Budesonide (Pulmicort (Neb)) 0.5 mg BID RESP THERAPY HHN ; Start 04/12/19 at 09:00 Amikacin Sulfate (Amikacin Iv Per Pharmacy) AMIKACIN PER PHARMACY NOTE XX ; Start 04/12/19 at 10:30 Metronidazole 100 ml @ 100 mls/hr Q8 IVPB ; Start 04/12/19 at 14:00 BETZAIDA YAÑEZ MD Apr 12, 2019 10:23
[2019-04-12] MEDS ORDERED: AMIKACIN IV PER PHARMACY XX SCH (10:30)
--- NOTE | 2019-04-12 10:35 | CONS ---
Consult Date/Type/Reason Admit Date/Time Mar 29, 2019 at 13:16 Initial Consult Date 04/07/19 Type of Consultation: cv Requesting Provider: LILLIAN ZHANG MD Date/Time of Note DATE: 04/12/19 TIME: 10:34 Subjective Interventional cardiology follow-up progress note Subjective: Discussed with the staff Telemetry was reviewed. pt remains intubated no vent pt is hypotensive again and back on levophed drip Patient nonverbal. objective: General: s/p intubation on the ventilator HEENT: NC/AT. pupils are equal. round. NECK:. no stridor. CV: RRR. systolic murmur; no gallop or rubs. PULM: + rhonchi. GI: SOFT, NT, ND, no rebound or guarding s/pPEG Extremity: trace B/L LE edema. no clubbing. neuro: opens his eyes Psych: calm the moment rectal: deferred : normal ECHO 04/09/19 REVIEWED Normal left ventricular systolic function. Normal left ventricular cavity size. Mild concentric left ventricular hypertrophy. Ejection fraction is visually estimated at 55 %. Tissue Doppler/Mitral Doppler indices are consistent with impaired relaxation (Stage I diastolic dysfunction). Mild mitral leaflet calcification. Mild mitral annular calcification. Mild mitral valve regurgitation. No significant aortic stenosis or insufficiency. Aortic cusps appear mildly calcified. Normal appearance of the tricuspid valve. The estimated Peak RVSP is 25 mmHg. There is trace tricuspid regurgitation. cxr 04/09/19 Persistent small left greater than right pleural effusions with associated atelectasis/infiltrate. Objective Vitals Vital Signs Date Temp Pulse Resp B/P (MAP) Pulse Ox O2 O2 Flow FiO2 Time Delivery Rate 04/12/19 83 19 100 35 08:02 04/12/19 82/34 (50) Mechanical 06:00 Ventilator 04/12/19 98.2 04:00 Intake and Output 04/11/19 04/11/19 04/12/19 1515:00 23:00 07:00 IntakeIntake Total 58.0 ml 1136.0 ml 45.5 ml OutputOutput Total 80 ml 300 ml BalanceBalance 58.0 ml 1056.0 ml -254.5 ml Results/Medications Result Diagram: 04/12/19 0437 04/12/19 0437 Results 24 hrs Laboratory Tests Test 04/11/19 13:07 04/11/19 18:19 7/4/19 18:30 04/12/19 00:32 Bedside Glucose 114 117 110 Hemoglobin 7.7 L Hematocrit 24.1 L Test 04/12/19 04:37 04/12/19 05:26 White Blood Count 7.8 Red Blood Count 2.47 L Hemoglobin 7.3 L Hematocrit 23.3 L Mean Corpuscular Volume 94.3 Mean Corpuscular 29.6 Hemoglobin Mean Corpuscular 31.3 L Hemoglobin Concent Red Cell Distribution 16.9 H Width Platelet Count 141 Mean Platelet Volume 10.8 H Immature Granulocytes % 0.500 H Neutrophils % 77.7 H Lymphocytes % 10.0 L Monocytes % 6.2 Eosinophils % 5.1 Basophils % 0.5 Nucleated Red Blood 0.0 Cells % Immature Granulocytes # 0.040 H Neutrophils # 6.0 Lymphocytes # 0.8 Monocytes # 0.5 Eosinophils # 0.4 Basophils # 0.0 Nucleated Red Blood 0.0 Cells # Sodium Level 137 Potassium Level 4.0 Chloride Level 99 Carbon Dioxide Level 26 Anion Gap 12 Blood Urea Nitrogen 27 H Creatinine 5.31 H Est Glomerular Filtrat 11 L Rate mL/min Glucose Level 100 Calcium Level 9.0 Bedside Glucose 101 Home Meds Reported Medications Bisacodyl (Dulcolax) 10 Mg Supp.rect, 10 MG RC DAILY PRN for CONSTIPATION, SUPP.RECT 03/29/19 Sodium Phosphate,[place]-Dibasic (Enema Ready To Use) 133 Ml Enema, 133 ML RC EVERY 2 DAYS PRN for CONSTIPATION, ENEMA 03/29/19 Acetaminophen* (Acetaminophen*) 650 Mg Tablet, 650 MG GTB Q4 PRN for MILD PAIN LEVEL 1-3, #30 TAB AND FEVER 03/29/19 Acetaminophen* (Acetaminophen*) 500 MG Extra Strength Tablet, 1000 MG GTB Q4H PRN for MODERATE PAIN LEVEL 4-6, TAB 03/29/19 Acetaminophen* (Acetaminophen*) 500 MG Extra Strength Tablet, 1000 MG GTB BID PRN for GENERAL BODY PAIN, TAB 03/29/19 Amino Acids/Protein Hydrolys (Pro-Stat Awc Liquid) 30 Ml Liquid, 30 ML GTB DAILY SUGAR FREE 03/29/19 Multivitamin* (Daily Value*) 1 Each Tablet, 1 TAB GTB DAILY, TAB 03/29/19 Ascorbic Acid* (Vitamin C*) 500 Mg Capsule.sa, 500 MG GTB DAILY, CAP 03/29/19 Ferrous Sulfate (Ferrous Sulfate) 300 Mg/5 Ml Liquid, 325 MG GTB DAILY 03/29/19 Cran/Vitc/Mannose/Inulin/Brom (Uti-Stat Liquid) 3,875 Mg/30 Ml Liquid, 3875 MG GTB DAILY 03/29/19 Cranberry Extract (Cranberry) 425 Mg Capsule, 425 MG GTB DAILY, CAP 03/29/19 Insulin Glulisine (Apidra Solostar) 100 Unit/1 Ml Insuln.pen, 4 UNIT SQ TIDM A, #1 TUB 03/29/19 Insulin Glargine,Hum.rec.anlog (Basaglar Kwikpen U-100) 100 Unit/1 Ml Insuln .pen, 25 UNIT SC QHS, EA 03/29/19 Insulin Regular, Human (Humulin R) 100 Unit/1 Ml Vial, 0 IJ AC MEALS AND BEDTIME, VIAL 0-150 = 0 UNIT 151-200 = 1 UNIT 201-250 = 2 UNITS 251-300 = 3 UNITS 301-350 = 4 UNITS 351-400 = 5 UNITS OVER 400 GIVE 6 UNITS UNDER 70 OR OVER 400 NOTIFY 03/29/19 Sertraline Hcl* (Sertraline Hcl*) 25 Mg Tablet, 25 MG GTB DAILY, #30 TAB 03/29/19 Lorazepam* (Ativan*) 0.5 Mg Tablet, 0.5 MG GTB DAILY PRN for ANXIETY, #30 TAB 03/29/19 Quetiapine Fumarate* (Seroquel*) 25 Mg Tablet, 25 MG GTB HS, #30 TAB 03/29/19 Lorazepam* (Lorazepam*) 0.5 Mg Tablet, 0.5 MG GTB DAILY PRN for ANXIETY, TAB 03/29/19 Clonidine Hcl* (Clonidine Hcl*) 0.1 Mg Tab, 0.1 MG GTB DAILY PRN for ELEVATED BLOOD PRESSURE, TAB SBP >160 03/29/19 Azelastine Hcl* (Azelastine Hcl*) 137 Mcg/0.137 Ml [place].pump, 2 SPRAYS NASAL BID, #1 EA TO EACH NOSTRIL 03/29/19 Carvedilol* (Carvedilol*) 12.5 Mg Tablet, 12.5 MG GTB BID, #60 TAB 03/29/19 Diltiazem Hcl* (Cardizem CD*) 240 Mg Cap.sr.24h, 240 MG GTB DAILY, #30 CAP 03/29/19 Ergocalciferol (Vitamin D2) (VITAMIN D2) 50,000 Unit Capsule, 88122 UNIT GTB EVERY MONDAY, CAP 03/29/19 Hydralazine Hcl* (Hydralazine Hcl*) 50 Mg Tab, 50 MG GTB TID PRN for ELEVATED BLOOD PRESSURE, #60 TAB 03/29/19 Losartan Potassium* (Losartan Potassium*) 100 Mg Tablet, 100 MG GTB DAILY, TAB 03/29/19 Metoprolol Succinate* (Toprol XL*) 25 Mg Tab.sr.24h, 25 MG GTB DAILY, #30 TAB 03/29/19 Linagliptin (TRADJENTA) 5 Mg Tablet, 5 MG GTB DAILY, TAB 03/29/19 Albuterol Sulfate* (Proair HFA*) 8.5 Gm Hfa.aer.ad, 2 PUFF INH Q4H PRN for WHEEZING AND SOB, #1 INHALER 03/29/19 Ranitidine Hcl* (Ranitidine Hcl*) 300 Mg Tablet, 300 MG GTB HS, #30 TAB 03/29/19 Levetiracetam* (Keppra*) 500 Mg Tablet, 500 MG GTB BID, TAB 03/29/19 Gabapentin* (Gabapentin*) 100 Mg Capsule, 100 MG GTB QHS, #90 CAP 03/29/19 Doxazosin Mesylate* (Doxazosin Mesylate*) 2 Mg Tablet, 2 MG GTB HS, TAB 03/29/19 Docusate Sodium* (Dok*) 100 Mg Tablet, 100 MG GTB BID, #60 CAP 03/29/19 Cyanocobalamin (Vitamin B-12) (Cyanocobalamin Injection) 1,000 Mcg/1 Ml Vial, 1000 MCG IJ EVERY MONDAY, VIAL 03/29/19 Clopidogrel Bisulfate (Clopidogrel) 75 Mg Tablet, 75 MG GTB DAILY, #30 TAB 03/29/19 Calcium Carbonate ([place]-500) 500 Mg Tablet, 500 MG GTB DAILY, TAB 03/29/19 Baclofen* (Baclofen*) 10 Mg Tablet, 10 MG GTB BID, TAB 03/29/19 Atorvastatin* (Atorvastatin*) 40 Mg Tablet, 40 MG GTB QHS, #30 TAB 03/29/19 Aspirin (Low Dose Aspirin) 81 Mg Tablet.dr, 81 MG GTB DAILY, #30 TAB 03/29/19 Medications Current Medications IV Flush (NS 3 ml) 3 ml PER PROTOCOL IV ; Start 03/29/19 at 13:30 Ondansetron HCl (Zofran Inj) 4 mg Q6H PRN IV NAUSEA/VOMITING Last administered on 04/07/19at 18:53; Admin Dose 4 MG; Start 03/29/19 at 13:30 Acetaminophen (Tylenol Tab) 650 mg Q6H PRN PO .PAIN 1-3 OR TEMP Last administered on 03/31/19at 05:48; Admin Dose 650 MG; Start 03/29/19 at 13:30 Hydralazine HCl (Apresoline) 10 mg Q4H PRN IV sbp >160 Last administered on 04/10/19 02:35; Admin Dose 10 MG; Start 03/29/19 at 14:00 Miscellaneous Information 1 ea NOTE XX ; Start 03/29/19 at 14:30 Glucose (Glutose) 15 gm Q15M PRN PO DECREASED GLUCOSE; Start 03/29/19 at 14:30 Glucose (Glutose) 22.5 gm Q15M PRN PO DECREASED GLUCOSE; Start 03/29/19 at 14:30 Dextrose (D50w Syringe) 25 ml Q15M PRN IV DECREASED GLUCOSE; Start 03/29/19 at 14:30 Dextrose (D50w Syringe) 50 ml Q15M PRN IV DECREASED GLUCOSE; Start 03/29/19 at 14:30 Glucagon (Glucagen) 1 mg Q15M PRN IM DECREASED GLUCOSE; Start 03/29/19 at 14:30 Glucose (Glutose) 15 gm Q15M PRN BUCCAL DECREASED GLUCOSE; Start 03/29/19 at 14:30 Albumin Human 100 ml @ 100 mls/hr WITH DIALYSIS PRN IV SBP <90 DURING DIALYSIS Last administered on 04/12/19at 08:58; Admin Dose 100 MLS/HR; Start 03/29/19 at 17:00 Albuterol/ Ipratropium (Duoneb) 3 ml Q2H RESP THERAPY PRN HHN WHEEZING AND RESP DISTRESS Last administered on 04/09/19at 08:52; Admin Dose 3 ML; Start 03/29/19 at 18:00 Lorazepam (Ativan) 0.5 mg Q4H PRN IV AGITATION Last administered on 04/02/19 03:55; Admin Dose 0.5 MG; Start 03/29/19 at 18:00 IV Flush (NS 10 ml) 10 ml Q8 PRN IV IV PROTOCOL; Start 03/29/19 at 18:00 Labetalol HCl (Labetalol) 10 mg Q4H PRN IV sbp >160; Start 03/30/19 at 09:00 Haloperidol (Haldol) 5 mg Q6H PRN IM agitation Last administered on 03/31/19 00:10; Admin Dose 5 MG; Start 03/30/19 at 10:00 Heparin Sodium (Porcine) (Heparin (1000 Units/ml)) 3,200 unit AFTER DIALYSIS CATHETER Last administered on 04/10/19 18:31; Admin Dose 3,200 UNIT; Start 03/30/19 at 17:00 Atorvastatin Calcium (Lipitor) 40 mg HS NGT Last administered on 04/11/19 21:45; Admin Dose 40 MG; Start 03/31/19 at 21:00 Baclofen (Lioresal) 10 mg BID GTB Last administered on 04/11/19 21:55; Admin Dose 10 MG; Start 03/31/19 at 21:00 Doxazosin Mesylate (Cardura) 2 mg DAILY NGT Last administered on 04/11/19 08:46; Admin Dose 2 MG; Start 03/31/19 at 14:30 Gabapentin (Neurontin) 100 mg QHS PO Last administered on 04/11/19 21:45; Admin Dose 100 MG; Start 03/31/19 at 21:00 Losartan Potassium (Cozaar) 100 mg DAILY NGT Last administered on 04/10/19 10:07; Admin Dose 100 MG; Start 03/31/19 at 14:30 Sertraline HCl (Zoloft) 25 mg HS NGT Last administered on 04/11/19 21:45; Admin Dose 25 MG; Start 03/31/19 at 21:00 Acetaminophen (Tylenol Liquid) 650 mg Q4H PRN PEG MILD PAIN(1-3)OR ELEVATED TEMP Last administered on 04/11/19 05:14; Admin Dose 650 MG; Start 03/31/19 at 16:00 Insulin Aspart (Novolog Insulin Pen) NOVOLOG *MILD* ALGORI... Q6 SC Last administered on 04/10/19 05:36; Admin Dose 1 UNIT; Start 04/02/19 at 12:00 Lactobacillus Acidophilus/ Rhamnosus (Culturelle) 1 cap TID GTB Last administered on 04/11/19 21:55; Admin Dose 1 CAP; Start 04/02/19 at 13:00 Hydralazine HCl (Apresoline) 75 mg TID NGT Last administered on 04/11/19 21:44; Admin Dose 75 MG; Start 04/02/19 at 21:00 Epoetin [place]-epbx (Retacrit (Esrd)) 10,000 unit MoWeFr@1700 SC Last administered on 04/10/19 21:52; Admin Dose 10,000 UNIT; Start 04/03/19 at 19:30 Lansoprazole (Prevacid) 30 mg BID@0600,1800 GTB Last administered on 04/12/19 05:19; Admin Dose 30 MG; Start 04/04/19 at 18:00 Multivit/Ca Carb/ B Cmplx/FA/Prenat ([place]arena-Geovanni) 1 tab DAILY GTB Last administered on 04/11/19 08:45; Admin Dose 1 TAB; Start 04/04/19 at 11:30 Aspirin (Aspirin) 81 mg DAILY PO Last administered on 04/11/19 08:46; Admin Dose 81 MG; Start 04/05/19 at 09:00; Status Hold Clopidogrel Bisulfate (plaVIX) 75 mg DAILY GTB Last administered on 04/11/19 08:45; Admin Dose 75 MG; Start 04/07/19 at 09:00; Status Hold Quetiapine Fumarate (Seroquel) 50 mg BID GTB Last administered on 04/11/19 21:45; Admin Dose 50 MG; Start 04/07/19 at 09:00 Propofol 100 ml @ 2.097 mls/ hr Q12H PRN IV AGITATION Last administered on 04/08/19 11:39; Admin Dose 6.291 MLS/HR; Start 04/08/19 at 00:00 Fentanyl 100 ml @ 2.5 mls/hr TITRATE IV Last administered on 04/11/19 19:36; Admin Dose 3 MLS/HR; Start 04/08/19 at 00:00 Midazolam HCl 50 ml @ 1 mls/hr TITRATE PRN IV agitation Last administered on 04/12/19at 09:15; Admin Dose 1 MLS/HR; Start 04/08/19 at 00:00 Norepinephrine 250 ml @ 1.875 mls/ hr TITRATE IV Last administered on 04/12/19at 06:27; Admin Dose 1.875 MLS/HR; Start 04/08/19 at 00:00 Levetiracetam 100 ml @ 400 mls/hr Q12 IVPB Last administered on 04/11/19at 21:15; Admin Dose 400 MLS/HR; Start 04/08/19 at 09:30 Nicardipine HCl 50 mg/Sodium Chloride 500 ml @ 50 mls/hr TITRATE IV ; Start 04/08/19 at 09:30 Mupirocin (Bactroban) 1 applic BID TOP Last administered on 04/11/19at 21:46; Admin Dose 1 APPLIC; Start 04/09/19 at 21:00 Carvedilol (Coreg) 12.5 mg QID NGT Last administered on 04/11/19at 21:44; Admin Dose 12.5 MG; Start 04/10/19 at 09:00 Albuterol/ Ipratropium (Duoneb) 3 ml Q6HWA RESP THERAPY HHN ; Start 04/12/19 at 14:00 Budesonide (Pulmicort (Neb)) 0.5 mg BID RESP THERAPY HHN ; Start 04/12/19 at 09:00 Amikacin Sulfate (Amikacin Iv Per Pharmacy) AMIKACIN PER PHARMACY NOTE XX ; Start 04/12/19 at 10:30 Metronidazole 100 ml @ 100 mls/hr Q8 IVPB ; Start 04/12/19 at 14:00 Assessment/Plan Hospital Course (Demo Recall) 1. History of extensive coronary artery disease status post ME status post coronary bypass graft status post PCI 2. Status post recent CVA 3. End-stage renal disease on hemodialysis 4. Hypertension: labile . hypotensive now 5. Dyslipidemia 6. Severe encephalopathy 7. Dysphagia status post PEG placement 8. Severe anemia and history of GI bleed 9. Respiratory failure status post intubation on the vent now 10. Shock probably septic currently on Levophed drip Recommendations: Resume with aspirin Plavix as soon as okay with GI resume coreg as tolerated. will keep on 12.5 BID for now AND DC LOSARATAN AND HYDRALAZINE TO AVOID HYPTENSION Respiratory care and ventilatory support will be continued. Weaning as tolerated will defer to the pulmonary team Hemodialysis as per renal. transfuse prn Thank you for this referral. We will continue to follow along with you SEAN CROUCH MD [facility] SEAN CROUCH MD Apr 12, 2019 10:35
[2019-04-12] MEDS: BUDESONIDE (NEB) 0.5MG/2ML AMP HHN SCH ×2 (11:57→19:32)
[2019-04-12] MEDS ORDERED: AMIKACIN 475 MG in SOD CHLORIDE 0.9% 100 ML IVPB SCH (12:00)
[2019-04-12] MEDS: HEPARIN 1000 UNITS/ML 10 ML INJ CATHETER SCH (12:20)
[2019-04-12] MEDS: LACTOBACILLUS RHAMNOSUS CAP GTB SCH ×3 (13:00→21:22)
[2019-04-12] MEDS: MUPIROCIN 2% 22 GM OINT TOP SCH ×2 (13:06→21:28)
[2019-04-12] MEDS: MULTIVIT/CA CARB/B CMPLX/FA TAB GTB SCH (13:06)
[2019-04-12] MEDS: BACLOFEN 10 MG TAB GTB SCH ×2 (13:07→21:22)
[2019-04-12] MEDS: QUETIAPINE 25 MG TAB GTB SCH ×2 (13:08→21:21)
[2019-04-12] MEDS: LEVETIRACETAM 500 MG (PMX) 100 ML IVPB SCH ×2 (13:08→21:35)
--- NOTE | 2019-04-12 13:16 | PN ---
Date/Time of Note Date/Time of Note DATE: 04/12/19 TIME: 13:11 Objective Vitals Vital Signs Date Temp Pulse Resp B/P (MAP) Pulse Ox O2 O2 Flow FiO2 Time Delivery Rate 04/12/19 88 12:05 04/12/19 20 97 35 11:11 04/12/19 110/64 Mechanical 10:00 (79) Ventilator 04/12/19 98.5 08:00 Intake and Output 04/11/19 04/11/19 04/12/19 1515:00 23:00 07:00 IntakeIntake Total 58.0 ml 1136.0 ml 45.5 ml OutputOutput Total 80 ml 300 ml BalanceBalance 58.0 ml 1056.0 ml -254.5 ml Results Result Diagram: 04/12/19 0437 04/12/19 0437 Medications Medications Current Medications IV Flush (NS 3 ml) 3 ml PER PROTOCOL IV ; Start 03/29/19 at 13:30 Ondansetron HCl (Zofran Inj) 4 mg Q6H PRN IV NAUSEA/VOMITING Last administered on 04/07/19at 18:53; Admin Dose 4 MG; Start 03/29/19 at 13:30 Acetaminophen (Tylenol Tab) 650 mg Q6H PRN PO .PAIN 1-3 OR TEMP Last administered on 03/31/19at 05:48; Admin Dose 650 MG; Start 03/29/19 at 13:30 Hydralazine HCl (Apresoline) 10 mg Q4H PRN IV sbp >160 Last administered on 04/10at 02:35; Admin Dose 10 MG; Start 03/29/19 at 14:00 Miscellaneous Information 1 ea NOTE XX ; Start 03/29/19 at 14:30 Glucose (Glutose) 15 gm Q15M PRN PO DECREASED GLUCOSE; Start 03/29/19 at 14:30 Glucose (Glutose) 22.5 gm Q15M PRN PO DECREASED GLUCOSE; Start 03/29/19 at 14:30 Dextrose (D50w Syringe) 25 ml Q15M PRN IV DECREASED GLUCOSE; Start 03/29/19 at 14:30 Dextrose (D50w Syringe) 50 ml Q15M PRN IV DECREASED GLUCOSE; Start 03/29/19 at 14:30 Glucagon (Glucagen) 1 mg Q15M PRN IM DECREASED GLUCOSE; Start 03/29/19 at 14:30 Glucose (Glutose) 15 gm Q15M PRN BUCCAL DECREASED GLUCOSE; Start 03/29/19 at 14:30 Albumin Human 100 ml @ 100 mls/hr WITH DIALYSIS PRN IV SBP <90 DURING DIALYSIS Last administered on 04/12/19 08:58; Admin Dose 100 MLS/HR; Start 03/29/19 at 17:00 Albuterol/ Ipratropium (Duoneb) 3 ml Q2H RESP THERAPY PRN HHN WHEEZING AND RESP DISTRESS Last administered on 04/09/19 08:52; Admin Dose 3 ML; Start 03/29/19 at 18:00 Lorazepam (Ativan) 0.5 mg Q4H PRN IV AGITATION Last administered on 04/02/19 03:55; Admin Dose 0.5 MG; Start 03/29/19 at 18:00 IV Flush (NS 10 ml) 10 ml Q8 PRN IV IV PROTOCOL; Start 03/29/19 at 18:00 Labetalol HCl (Labetalol) 10 mg Q4H PRN IV sbp >160; Start 03/30/19 at 09:00 Haloperidol (Haldol) 5 mg Q6H PRN IM agitation Last administered on 03/31/19 00:10; Admin Dose 5 MG; Start 03/30/19 at 10:00 Heparin Sodium (Porcine) (Heparin (1000 Units/ml)) 3,200 unit AFTER DIALYSIS CATHETER Last administered on 04/12/19 12:20; Admin Dose 3,200 UNIT; Start 03/30/19 at 17:00 Atorvastatin Calcium (Lipitor) 40 mg HS NGT Last administered on 04/11/19 21:45; Admin Dose 40 MG; Start 03/31/19 at 21:00 Baclofen (Lioresal) 10 mg BID GTB Last administered on 04/12/19 13:07; Admin Dose 10 MG; Start 03/31/19 at 21:00 Doxazosin Mesylate (Cardura) 2 mg DAILY NGT Last administered on 04/11/19 08:46; Admin Dose 2 MG; Start 03/31/19 at 14:30 Gabapentin (Neurontin) 100 mg QHS PO Last administered on 04/11/19 21:45; Admin Dose 100 MG; Start 03/31/19 at 21:00 Sertraline HCl (Zoloft) 25 mg HS NGT Last administered on 04/11/19 21:45; Admin Dose 25 MG; Start 03/31/19 at 21:00 Acetaminophen (Tylenol Liquid) 650 mg Q4H PRN PEG MILD PAIN(1-3)OR ELEVATED TEMP Last administered on 04/11/19 05:14; Admin Dose 650 MG; Start 03/31/19 at 16:00 Insulin Aspart (Novolog Insulin Pen) NOVOLOG *MILD* ALGORI... Q6 SC Last administered on 04/10/19 05:36; Admin Dose 1 UNIT; Start 04/02/19 at 12:00 Lactobacillus Acidophilus/ Rhamnosus (Culturelle) 1 cap TID GTB Last administered on 04/12/19 13:07; Admin Dose 1 CAP; Start 04/02/19 at 13:00 Epoetin [place]-epbx (Retacrit (Esrd)) 10,000 unit MoWeFr@1700 SC Last administered on 04/10/19 21:52; Admin Dose 10,000 UNIT; Start 04/03/19 at 19:30 Lansoprazole (Prevacid) 30 mg BID@0600,1800 GTB Last administered on 04/12/19 05:19; Admin Dose 30 MG; Start 04/04/19 at 18:00 Multivit/Ca Carb/ B Cmplx/FA/Prenat (Karena-Geovanni) 1 tab DAILY GTB Last administered on 04/12/19 13:06; Admin Dose 1 TAB; Start 04/04/19 at 11:30 Aspirin (Aspirin) 81 mg DAILY PO Last administered on 04/11/19 08:46; Admin Dose 81 MG; Start 04/05/19 at 09:00; Status Hold Clopidogrel Bisulfate (plaVIX) 75 mg DAILY GTB Last administered on 04/11/19 08:45; Admin Dose 75 MG; Start 04/07/19 at 09:00; Status Hold Quetiapine Fumarate (Seroquel) 50 mg BID GTB Last administered on 04/12/19 13:08; Admin Dose 50 MG; Start 04/07/19 at 09:00 Propofol 100 ml @ 2.097 mls/ hr Q12H PRN IV AGITATION Last administered on 04/08/19 11:39; Admin Dose 6.291 MLS/HR; Start 04/08/19 at 00:00 Fentanyl 100 ml @ 2.5 mls/hr TITRATE IV Last administered on 04/11/19 19:36; Admin Dose 3 MLS/HR; Start 04/08/19 at 00:00 Midazolam HCl 50 ml @ 1 mls/hr TITRATE PRN IV agitation Last administered on 04/12/19 09:15; Admin Dose 1 MLS/HR; Start 04/08/19 at 00:00 Norepinephrine 250 ml @ 1.875 mls/ hr TITRATE IV Last administered on 04/12/19 06:27; Admin Dose 1.875 MLS/HR; Start 04/08/19 at 00:00 Levetiracetam 100 ml @ 400 mls/hr Q12 IVPB Last administered on 04/12/19 13:08; Admin Dose 400 MLS/HR; Start 04/08/19 at 09:30 Nicardipine HCl 50 mg/Sodium Chloride 500 ml @ 50 mls/hr TITRATE IV ; Start 04/08/19 at 09:30 Mupirocin (Bactroban) 1 applic BID TOP Last administered on 04/12/19 13:06; Admin Dose 1 APPLIC; Start 04/09/19 at 21:00 Albuterol/ Ipratropium (Duoneb) 3 ml Q6HWA RESP THERAPY HHN ; Start 04/12/19 at 14:00 Budesonide (Pulmicort (Neb)) 0.5 mg BID RESP THERAPY HHN Last administered on 04/12/19 11:57; Admin Dose 0.5 MG; Start 04/12/19 at 09:00 Amikacin Sulfate (Amikacin Iv Per Pharmacy) AMIKACIN PER PHARMACY NOTE XX ; Start 04/12/19 at 10:30 Metronidazole 100 ml @ 100 mls/hr Q8 IVPB ; Start 04/12/19 at 14:00 Carvedilol (Coreg) 12.5 mg BID NGT ; Start 04/12/19 at 21:00 Amikacin Sulfate 300 mg/Sodium Chloride 101.2 ml @ 101.2 mls/ hr AFTER DIALYSIS IVPB ; Start 04/13/19 at 09:00 VTE Prophylaxis Risk score (from Nsg)>0 risk: 11 SCD applied (from Nsg): Yes Lines/Catheters IV Catheter Type: [place] in Place: No Assessment/Plan Hospital Course Subjective Patient back on pressors, still extremely agitated, intubated Objective Physical exam General: Patient is laying in bed intubated and sedated Mentation: Patient is not alert, Head: Normocephalic atraumatic Eyes: EOMI, pupils reactive to light Neck: Supple, nontender, midline Respiratory: Clear to auscultation bilaterally Cardiovascular: regular rate, no obvious murmurs Gastrointestinal: non-tender to palpation, bowel sounds heard. Neurological: Unable to assess however has minimal to no response to noxious stimuli on the left side Skin: No new skin lesions Assessment/Plan Acute hypoxic respiratory failure -Status post intubation, extubate when able -initial CT abdomen pelvis showing possible pneumonia which would make sense in this encephalopathic patient in the hospital -Broad-spectrum antibiotics -Treatment per pulmonology Septic shock, intermittent -Secondary to likely pneumonia -Infectious disease consulted -Cultures taken, CT showing possibly distended bladder wall for cystitis however UTI is not necessarily revealing for infection -IV antibiotic Likely aspiration pneumonia -Would explain mild fever before as well as symptoms and [employer] that led to patient's intubation -IV antibiotic -Infectious disease on board Acute on chronic encephalopathy - still restless and trying to get out of bed. Continue Seroquel as needed - Neurology on board and appreciate recommendations. CT unrevealing -Possible new CVA as patient has recent history of multiple CVAs, however patient is not able to tolerate MRI at this time due to agitation -Use as needed medications. Hypertensive emergency-resolved for now - BP better controlled, hypotensive at the moment anemia- -No concrete source of bleeding however there was either pink medication or red fluid mixed in with the aspirate per nurse this morning, per GI recommendations we will get a CT scan of the abdomen and pelvis as well as trend patient's hemoglobin. Will hold patient's aspirin and Plavix for now. - EGD revealed moderate distal esophagitis and gastritis and duodenitis. Col onoscopy showed internal hemorrhoids - GI consultation appreciated. Will need repeat colonoscopy in 6 months - continue PPI Leukocytosis-resolved -Possibly secondary to pneumonia, infectious disease on board, continue IV antibiotics Dysphasia -PEG tube ok for use per GI End-stage renal disease on hemodialysis - Nephrology on board and appreciate consultation. Continue HD Coronary artery disease status post CABG history - continue home medications - continue aspirin and Plavix when able Epilepsy - Continue Keppra History of CVA with residual left-sided deficit and more recent CVA 1 month ago - Patient reportedly had a new stroke approximately 1 month ago at [facility] which is the cause of patient's current encephalopathic state - After speaking with daughter, appears this is patient's baseline after leaving [facility] proximally 1 week ago. Patient suffered CVA and subsequent long stay in the ICU which required intubation and PEG tube. Patient almost required tracheostomy however appear to have been able to be weaned off the ventilator. - Neurology consultation appreciated BPH Disposition -Patient intubated in the ICU, likely secondary to septic shock secondary to pneumonia, infectious disease has been consulted, keep in ICU monitor closely -Patient may be difficult to extubate given history of poor extubation -CT abdomen pelvis noted -We will have family meeting today More than 40 minutes of critical care time has been spent on this encounter STEWART WINTER Apr 12, 2019 13:16
[2019-04-12] MEDS ORDERED: ALBUTEROL/IPRATROPIUM (NEB) 3 ML AMP HHN SCH (14:00)
[2019-04-12] MEDS: metroNIDAZOLE 500 MG/NS (PMX) 100 ML IVPB SCH ×2 (14:04→22:49)
--- NOTE | 2019-04-12 14:39 | PN ---
Date/Time of Note Date/Time of Note DATE: 04/12/19 TIME: 14:25 Assessment/Plan VTE Prophylaxis Risk score (from [facility] [place])>0 risk: 11 SCD applied (from [facility] [place]): Yes Pharmacological prophylaxis: heparin Lines/Catheters IV Catheter Type (from [facility]): Urinary Cath still in place: No Assessment/Plan Assessment/Plan Assessment: Severe anemia-improved- hgb- 7.9 04/10/19- no overt signs of GI bleed -EGD 04/03/2019 Moderate distal esophagitis. Gastrostomy tube in place. Gastritis -biopsies are negative for H. pylori. Duodenitis. Colonoscopy 04/03/2019 8 sessile polyp in the cecum. Snared and retrieved. -Tubular adenoma 6 mm sessile polyp ascending colon. Snared and retrieved. -Tubular adenoma 6 mm sessile polyp sigmoid. Snared and retrieved. -Tubular adenoma 20 mm sessile polyp sigmoid. Saline assisted lipectomy plus localization tattoo. Moderate-sized internal hemorrhoids. 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 -Replaced with 18 Mong[place]ian gastrostomy tube Coronary artery disease status post CABG history Epilepsy BPH Query aspiration PNA Plan: Transfuse 1 unit PRBCs Continue G-tube feeding, hold for residuals greater than 150 cc. Monitor H&H Transfuse for hemoglobin less than 7.5 Patient seen in collaboration with Dr. Sanders Subjective: Course reviewed with nursing staff Patient interviewed and examined All labs, imaging and other results reviewed Patient remains in the ICU, intubated, sedated on Versed and fentanyl drip and on Levophed. CT of the abdomen shows G-tube in the proper location. Tube feeding's have been restarted with high residuals. Currently tube feeding is on hold. PHYSICAL EXAMINATION: GENERAL: Well developed, well nourished, intubated SKIN: No lesions, g-tube in place NECK: Supple, no masses, thyroid normal CHEST: Inspection within normal limits. CARDIOVASCULAR: Heart: Regular rate and rhythm RESPIRATORY: Lungs clear to auscultation. GASTROINTESTINAL AND LIVER: Abdomen: Soft, G-tube in place, non-distended,, no organomegaly, no ascites, no guarding, no rebound tenderness, normoactive bowel sounds. Rectal: Deferred. GENITOURINARY: Male genitalia within normal limits. EXTREMITIES: No cyanosis, clubbing or edema. Result Diagram: 04/12/19 0437 04/12/19 0437 Results 24hrs Laboratory Tests Test 04/11/19 18:19 04/11/19 18:30 04/12/19 00:32 04/12/19 04:37 Bedside Glucose 117 110 Hemoglobin 7.7 L 7.3 L Hematocrit 24.1 L 23.3 L White Blood Count 7.8 Red Blood Count 2.47 L Mean Corpuscular Volume 94.3 Mean Corpuscular 29.6 Hemoglobin Mean Corpuscular 31.3 L Hemoglobin Concent Red Cell Distribution 16.9 H Width Platelet Count 141 Mean Platelet Volume 10.8 H Immature Granulocytes % 0.500 H Neutrophils % 77.7 H Lymphocytes % 10.0 L Monocytes % 6.2 Eosinophils % 5.1 Basophils % 0.5 Nucleated Red Blood 0.0 Cells % Immature Granulocytes # 0.040 H Neutrophils # 6.0 Lymphocytes # 0.8 Monocytes # 0.5 Eosinophils # 0.4 Basophils # 0.0 Nucleated Red Blood 0.0 Cells # Sodium Level 137 Potassium Level 4.0 Chloride Level 99 Carbon Dioxide Level 26 Anion Gap 12 Blood Urea Nitrogen 27 H Creatinine 5.31 H Est Glomerular Filtrat 11 L Rate mL/min Glucose Level 100 Calcium Level 9.0 Test 04/12/19 05:26 04/12/19 13:04 Bedside Glucose 101 91 CC: TREMAINE SANDERS MD ; Exam/Review of Systems Exam Vitals Vital Signs Date Temp Pulse Resp B/P (MAP) Pulse Ox O2 O2 Flow FiO2 Time Delivery Rate 04/12/19 74 18 92 26 13:37 04/12/19 141/66 13:15 (91) 04/12/19 Mechanical 13:00 Ventilator 04/12/19 98.5 12:00 Intake and Output 04/11/19 04/11/19 04/12/19 1515:00 23:00 07:00 IntakeIntake Total 58.0 ml 1136.0 ml 45.5 ml OutputOutput Total 80 ml 300 ml BalanceBalance 58.0 ml 1056.0 ml -254.5 ml Results Results 24hrs Laboratory Tests Test 04/11/19 18:19 04/11/19 18:30 04/12/19 00:32 04/12/19 04:37 Bedside Glucose 117 110 Hemoglobin 7.7 L 7.3 L Hematocrit 24.1 L 23.3 L White Blood Count 7.8 Red Blood Count 2.47 L Mean Corpuscular Volume 94.3 Mean Corpuscular 29.6 Hemoglobin Mean Corpuscular 31.3 L Hemoglobin Concent Red Cell Distribution 16.9 H Width Platelet Count 141 Mean Platelet Volume 10.8 H Immature Granulocytes % 0.500 H Neutrophils % 77.7 H Lymphocytes % 10.0 L Monocytes % 6.2 Eosinophils % 5.1 Basophils % 0.5 Nucleated Red Blood 0.0 Cells % Immature Granulocytes # 0.040 H Neutrophils # 6.0 Lymphocytes # 0.8 Monocytes # 0.5 Eosinophils # 0.4 Basophils # 0.0 Nucleated Red Blood 0.0 Cells # Sodium Level 137 Potassium Level 4.0 Chloride Level 99 Carbon Dioxide Level 26 Anion Gap 12 Blood Urea Nitrogen 27 H Creatinine 5.31 H Est Glomerular Filtrat 11 L Rate mL/min Glucose Level 100 Calcium Level 9.0 Test 04/12/19 05:26 04/12/19 13:04 Bedside Glucose 101 91 Medications Medication Current Medications IV Flush (NS 3 ml) 3 ml PER PROTOCOL IV ; Start 03/29/19 at 13:30 Ondansetron HCl (Zofran Inj) 4 mg Q6H PRN IV NAUSEA/VOMITING Last administered on 04/07/19at 18:53; Admin Dose 4 MG; Start 03/29/19 at 13:30 Acetaminophen (Tylenol Tab) 650 mg Q6H PRN PO .PAIN 1-3 OR TEMP Last administe red on 03/31/19at 05:48; Admin Dose 650 MG; Start 03/29/19 at 13:30 Hydralazine HCl (Apresoline) 10 mg Q4H PRN IV sbp >160 Last administered on 04/10/19at 02:35; Admin Dose 10 MG; Start 03/29/19 at 14:00 Miscellaneous Information 1 ea NOTE XX ; Start 03/29/19 at 14:30 Glucose (Glutose) 15 gm Q15M PRN PO DECREASED GLUCOSE; Start 03/29/19 at 14:30 Glucose (Glutose) 22.5 gm Q15M PRN PO DECREASED GLUCOSE; Start 03/29/19 at 14:30 Dextrose (D50w Syringe) 25 ml Q15M PRN IV DECREASED GLUCOSE; Start 03/29/19 at 14:30 Dextrose (D50w Syringe) 50 ml Q15M PRN IV DECREASED GLUCOSE; Start 03/29/19 at 14:30 Glucagon (Glucagen) 1 mg Q15M PRN IM DECREASED GLUCOSE; Start 03/29/19 at 14:30 Glucose (Glutose) 15 gm Q15M PRN BUCCAL DECREASED GLUCOSE; Start 03/29/19 at 14:30 Albumin Human 100 ml @ 100 mls/hr WITH DIALYSIS PRN IV SBP <90 DURING DIALYSIS Last administered on 04/12/19 08:58; Admin Dose 100 MLS/HR; Start 03/29/19 at 17:00 Albuterol/ Ipratropium (Duoneb) 3 ml Q2H RESP THERAPY PRN HHN WHEEZING AND RESP DISTRESS Last administered on 04/09/19 08:52; Admin Dose 3 ML; Start 03/29/19 at 18:00 Lorazepam (Ativan) 0.5 mg Q4H PRN IV AGITATION Last administered on 04/02/19 03:55; Admin Dose 0.5 MG; Start 03/29/19 at 18:00 IV Flush (NS 10 ml) 10 ml Q8 PRN IV IV PROTOCOL; Start 03/29/19 at 18:00 Labetalol HCl (Labetalol) 10 mg Q4H PRN IV sbp >160; Start 03/30/19 at 09:00 Haloperidol (Haldol) 5 mg Q6H PRN IM agitation Last administered on 03/31/19 00:10; Admin Dose 5 MG; Start 03/30/19 at 10:00 Heparin Sodium (Porcine) (Heparin (1000 Units/ml)) 3,200 unit AFTER DIALYSIS CATHETER Last administered on 04/12/19 12:20; Admin Dose 3,200 UNIT; Start 03/30/19 at 17:00 Atorvastatin Calcium (Lipitor) 40 mg HS NGT Last administered on 04/11/19 21:45; Admin Dose 40 MG; Start 03/31/19 at 21:00 Baclofen (Lioresal) 10 mg BID GTB Last administered on 04/12/19 13:07; Admin Dose 10 MG; Start 03/31/19 at 21:00 Doxazosin Mesylate (Cardura) 2 mg DAILY NGT Last administered on 04/11/19 08:46; Admin Dose 2 MG; Start 03/31/19 at 14:30 Gabapentin (Neurontin) 100 mg QHS PO Last administered on 04/11/19 21:45; Admin Dose 100 MG; Start 03/31/19 at 21:00 Sertraline HCl (Zoloft) 25 mg HS NGT Last administered on 04/11/19 21:45; Admin Dose 25 MG; Start 03/31/19 at 21:00 Acetaminophen (Tylenol Liquid) 650 mg Q4H PRN PEG MILD PAIN(1-3)OR ELEVATED TEMP Last administered on 04/11/19 05:14; Admin Dose 650 MG; Start 03/31/19 at 16:00 Insulin Aspart (Novolog Insulin Pen) NOVOLOG *MILD* ALGORI... Q6 SC Last administered on 04/10/19 05:36; Admin Dose 1 UNIT; Start 04/02/19 at 12:00 Lactobacillus Acidophilus/ Rhamnosus (Culturelle) 1 cap TID GTB Last administered on 04/12/19 13:07; Admin Dose 1 CAP; Start 04/02/19 at 13:00 Epoetin [place]-epbx (Retacrit (Esrd)) 10,000 unit MoWeFr@1700 SC Last a dministered on 04/10/19 21:52; Admin Dose 10,000 UNIT; Start 04/03/19 at 19:30 Lansoprazole (Prevacid) 30 mg BID@0600,1800 GTB Last administered on 04/12/19 05:19; Admin Dose 30 MG; Start 04/04/19 at 18:00 Multivit/Ca Carb/ B Cmplx/FA/Prenat (Karena-Geovanni) 1 tab DAILY GTB Last administered on 04/12/19 13:06; Admin Dose 1 TAB; Start 04/04/19 at 11:30 Aspirin (Aspirin) 81 mg DAILY PO Last administered on 04/11/19 08:46; Admin Dose 81 MG; Start 04/05/19 at 09:00; Status Hold Clopidogrel Bisulfate (plaVIX) 75 mg DAILY GTB Last administered on 04/11/19 08:45; Admin Dose 75 MG; Start 04/07/19 at 09:00; Status Hold Quetiapine Fumarate (Seroquel) 50 mg BID GTB Last administered on 04/12/19 13:08; Admin Dose 50 MG; Start 04/07/19 at 09:00 Propofol 100 ml @ 2.097 mls/ hr Q12H PRN IV AGITATION Last administered on 04/08/19 11:39; Admin Dose 6.291 MLS/HR; Start 04/08/19 at 00:00 Fentanyl 100 ml @ 2.5 mls/hr TITRATE IV Last administered on 04/11/19 19:36; Admin Dose 3 MLS/HR; Start 04/08/19 at 00:00 Midazolam HCl 50 ml @ 1 mls/hr TITRATE PRN IV agitation Last administered on 04/12/19 09:15; Admin Dose 1 MLS/HR; Start 04/08/19 at 00:00 Norepinephrine 250 ml @ 1.875 mls/ hr TITRATE IV Last administered on 04/12/19 06:27; Admin Dose 1.875 MLS/HR; Start 04/08/19 at 00:00 Levetiracetam 100 ml @ 400 mls/hr Q12 IVPB Last administered on 04/12/19 13:08; Admin Dose 400 MLS/HR; Start 04/08/19 at 09:30 Nicardipine HCl 50 mg/Sodium Chloride 500 ml @ 50 mls/hr TITRATE IV ; Start 04/08/19 at 09:30 Mupirocin (Bactroban) 1 applic BID TOP Last administered on 04/12/19 13:06; Admin Dose 1 APPLIC; Start 04/09/19 at 21:00 Albuterol/ Ipratropium (Duoneb) 3 ml Q6HWA RESP THERAPY HHN ; Start 04/12/19 at 14:00 Budesonide (Pulmicort (Neb)) 0.5 mg BID RESP THERAPY HHN Last administered on 04/12/19 11:57; Admin Dose 0.5 MG; Start 04/12/19 at 09:00 Amikacin Sulfate (Amikacin Iv Per Pharmacy) AMIKACIN PER PHARMACY NOTE XX ; Start 04/12/19 at 10:30 Metronidazole 100 ml @ 100 mls/hr Q8 IVPB Last administered on 04/12/19 14:04; Admin Dose 100 MLS/HR; Start 04/12/19 at 14:00 Carvedilol (Coreg) 12.5 mg BID NGT ; Start 04/12/19 at 21:00 Amikacin Sulfate 300 mg/Sodium Chloride 101.2 ml @ 101.2 mls/ hr AFTER DIALYSIS IVPB ; Start 04/13/19 at 09:00 MIGUEL MAYO NP Apr 12, 2019 14:38
[2019-04-12] MEDS: EPOETIN ALFA-EPBX (ESRD) 10,000 UNIT/ML VIAL SC SCH (18:40)
[2019-04-12] MEDS: FENTAnyl (DRIP) 1000 mcg/100mL 100 ML IV SCH (18:43)
[2019-04-12] MEDS: IPRATROPIUM (HFA) 12.9 GM INHALER INH SCH (19:33)
[2019-04-12] MEDS: SERTRALINE 50 MG TAB NGT SCH (21:21)
[2019-04-12] MEDS: ATORVASTATIN 40 MG TAB NGT SCH (21:22)
[2019-04-12] MEDS: GABAPENTIN 100 MG CAP PO SCH (21:22)
[2019-04-13] VITALS (107 sets, daily range): BP systolic 82–161; BP diastolic 49–79; PULSE 62–82; RESP 3–22
[2019-04-13] MEDS ORDERED: IPRATROPIUM (NEB) 0.5 MG/2.5 ML AMP ONE (01:32)
[2019-04-13] MEDS: ALBUTEROL HFA 8 GM INHALER INH SCH ×4 (01:34→20:15)
[2019-04-13] MEDS: IPRATROPIUM (HFA) 12.9 GM INHALER INH SCH ×4 (01:34→20:15)
[2019-04-13] MEDS: MIDAZOLAM (DRIP) 50 mg/50 mL 50 ML IV PRN ×2 (04:32→14:32)
[2019-04-13] MEDS: LANSOPRAZOLE 30 MG CAP GTB SCH ×2 (05:48→17:25)
[2019-04-13] MEDS: metroNIDAZOLE 500 MG/NS (PMX) 100 ML IVPB SCH ×3 (05:48→22:07)
[2019-04-13] MEDS: INSULIN ASPART [NOVOLOG] 3 ML PEN SC SCH ×6 (06:00→21:43)
[2019-04-13] MEDS: NORepinephrine 8MG/250 ML (PMX 250 ML IV SCH (06:05)
[2019-04-13] MEDS: FENTAnyl (DRIP) 1000 mcg/100mL 100 ML IV SCH ×2 (06:08→22:09)
[2019-04-13] MEDS: LACTOBACILLUS RHAMNOSUS CAP GTB SCH ×3 (08:47→21:35)
[2019-04-13] MEDS: BACLOFEN 10 MG TAB GTB SCH ×2 (08:47→21:35)
[2019-04-13] MEDS: QUETIAPINE 25 MG TAB GTB SCH ×2 (08:47→21:35)
[2019-04-13] MEDS: MULTIVIT/CA CARB/B CMPLX/FA TAB GTB SCH (08:47)
[2019-04-13] MEDS: LEVETIRACETAM 500 MG (PMX) 100 ML IVPB SCH ×2 (08:48→21:33)
[2019-04-13] MEDS: DOXAZOSIN 2 MG TAB NGT SCH (08:48)
[2019-04-13] MEDS: MUPIROCIN 2% 22 GM OINT TOP SCH ×2 (08:56→21:49)
--- NOTE | 2019-04-13 08:57 | CONS ---
Consult Date/Type/Reason Admit Date/Time Mar 29, 2019 at 13:16 Initial Consult Date 04/07/19 Type of Consult Pulmonary Requesting Provider: LILLIAN ZHANG MD Date/Time of Note DATE: 04/13/19 TIME: 08:56 Subjective Patient comfortable no new events. Grimaces to painful stimuli but not opening eyes and following commands consistently. Objective Vital Signs Date Temp Pulse Resp B/P (MAP) Pulse Ox O2 O2 Flow FiO2 Time Delivery Rate 04/13/19 70 18 92 30 07:50 04/13/19 110/57 06:45 (74) 04/13/19 Mechanical 06:00 Ventilator 04/13/19 97.7 04:00 Intake and Output 04/12/19 04/12/19 04/13/19 1515:00 23:00 07:00 IntakeIntake Total 634.775 ml 381.750 ml 227.440 ml OutputOutput Total 3400 ml 100 ml 235 ml BalanceBalance -2765.225 ml 281.750 ml -7.560 ml Exam GENERAL: Chronically ill-appearing gentleman on mechanical ventilation orally intubated VITAL SIGNS: per chart NECK: Supple. No JVD or lymphadenopathy. CARDIAC EXAM: S1, S2. No added sounds or murmurs. CHEST: Diminished air entry bilaterally ABDOMEN: Soft, nontender. No guarding or rebound. EXTREMITIES: No cyanosis, clubbing or edema. NEUROLOGIC: Generalized weakness. Unable to assess Vent Setting Ventilator Support Mode: AC Fraction of Inspired Oxygen pe: 30 Positive End Expiratory Pressu: 5.0 Results/Medications Result Diagram: 04/13/19 0425 04/13/19 0425 Results 24 hrs Laboratory Tests Test 04/12/19 13:04 04/12/19 17:59 04/13/19 00:04 04/13/19 04:25 Bedside Glucose 91 88 82 White Blood Count 8.3 Red Blood Count 2.81 L Hemoglobin 8.4 L Hematocrit 25.4 L Mean Corpuscular Volume 90.4 Mean Corpuscular 29.9 Hemoglobin Mean Corpuscular 33.1 Hemoglobin Concent Red Cell Distribution 17.0 H Width Platelet Count 166 Mean Platelet Volume 11.1 H Immature Granulocytes % 1.200 H Neutrophils % 74.2 Lymphocytes % 12.2 L Monocytes % 8.7 Eosinophils % 3.2 Basophils % 0.5 Nucleated Red Blood 0.0 Cells % Immature Granulocytes # 0.100 H Neutrophils # 6.2 Lymphocytes # 1.0 Monocytes # 0.7 Eosinophils # 0.3 Basophils # 0.0 Nucleated Red Blood 0.0 Cells # Sodium Level 140 Potassium Level 3.1 L Chloride Level 102 Carbon Dioxide Level 25 Anion Gap 13 Blood Urea Nitrogen 14 # Creatinine 3.85 #H Est Glomerular Filtrat 16 L Rate mL/min Glucose Level 61 #L Calcium Level 9.4 Phosphorus Level 3.2 Magnesium Level 2.1 Test 04/13/19 05:52 04/13/19 06:12 04/13/19 06:29 Bedside Glucose 68 L 117 118 Medications Current Medications IV Flush (NS 3 ml) 3 ml PER PROTOCOL IV ; Start 03/29/19 at 13:30 Ondansetron HCl (Zofran Inj) 4 mg Q6H PRN IV NAUSEA/VOMITING Last administered on 04/07/19at 18:53; Admin Dose 4 MG; Start 03/29/19 at 13:30 Acetaminophen (Tylenol Tab) 650 mg Q6H PRN PO .PAIN 1-3 OR TEMP Last administered on 03/31/19at 05:48; Admin Dose 650 MG; Start 03/29/19 at 13:30 Hydralazine HCl (Apresoline) 10 mg Q4H PRN IV sbp >160 Last administered on 04/10/19at 02:35; Admin Dose 10 MG; Start 03/29/19 at 14:00 Miscellaneous Information 1 ea NOTE XX ; Start 03/29/19 at 14:30 Glucose (Glutose) 15 gm Q15M PRN PO DECREASED GLUCOSE; Start 03/29/19 at 14:30 Glucose (Glutose) 22.5 gm Q15M PRN PO DECREASED GLUCOSE; Start 03/29/19 at 14:30 Dextrose (D50w Syringe) 25 ml Q15M PRN IV DECREASED GLUCOSE Last administered on 04/13/19at 05:56; Admin Dose 25 ML; Start 03/29/19 at 14:30 Dextrose (D50w Syringe) 50 ml Q15M PRN IV DECREASED GLUCOSE; Start 03/29/19 at 14:30 Glucagon (Glucagen) 1 mg Q15M PRN IM DECREASED GLUCOSE; Start 03/29/19 at 14:30 Glucose (Glutose) 15 gm Q15M PRN BUCCAL DECREASED GLUCOSE; Start 03/29/19 at 14:30 Albumin Human 100 ml @ 100 mls/hr WITH DIALYSIS PRN IV SBP <90 DURING DIALYSIS Last administered on 04/12/19 08:58; Admin Dose 100 MLS/HR; Start 03/29/19 at 17:00 Albuterol/ Ipratropium (Duoneb) 3 ml Q2H RESP THERAPY PRN HHN WHEEZING AND RESP DISTRESS Last administered on 04/09/19 08:52; Admin Dose 3 ML; Start 03/29/19 at 18:00 Lorazepam (Ativan) 0.5 mg Q4H PRN IV AGITATION Last administered on 04/02/19 03:55; Admin Dose 0.5 MG; Start 03/29/19 at 18:00 IV Flush (NS 10 ml) 10 ml Q8 PRN IV IV PROTOCOL; Start 03/29/19 at 18:00 Labetalol HCl (Labetalol) 10 mg Q4H PRN IV sbp >160; Start 03/30/19 at 09:00 Haloperidol (Haldol) 5 mg Q6H PRN IM agitation Last administered on 03/31/19 00:10; Admin Dose 5 MG; Start 03/30/19 at 10:00 Heparin Sodium (Porcine) (Heparin (1000 Units/ml)) 3,200 unit AFTER DIALYSIS CATHETER Last administered on 04/12/19 12:20; Admin Dose 3,200 UNIT; Start 03/30/19 at 17:00 Atorvastatin Calcium (Lipitor) 40 mg HS NGT Last administered on 04/12/19 21:22; Admin Dose 40 MG; Start 03/31/19 at 21:00 Baclofen (Lioresal) 10 mg BID GTB Last administered on 04/13/19 08:47; Admin Do se 10 MG; Start 03/31/19 at 21:00 Doxazosin Mesylate (Cardura) 2 mg DAILY NGT Last administered on 04/11/19 08:46; Admin Dose 2 MG; Start 03/31/19 at 14:30 Gabapentin (Neurontin) 100 mg QHS PO Last administered on 04/12/19 21:22; Admin Dose 100 MG; Start 03/31/19 at 21:00 Sertraline HCl (Zoloft) 25 mg HS NGT Last administered on 04/12/19 21:21; Admin Dose 25 MG; Start 03/31/19 at 21:00 Acetaminophen (Tylenol Liquid) 650 mg Q4H PRN PEG MILD PAIN(1-3)OR ELEVATED TEMP Last administered on 04/11/19 05:14; Admin Dose 650 MG; Start 03/31/19 at 16:00 Insulin Aspart (Novolog Insulin Pen) NOVOLOG *MILD* ALGORI... Q6 SC Last administered on 04/10/19 05:36; Admin Dose 1 UNIT; Start 04/02/19 at 12:00 Lactobacillus Acidophilus/ Rhamnosus (Culturelle) 1 cap TID GTB Last administered on 04/13/19 08:47; Admin Dose 1 CAP; Start 04/02/19 at 13:00 Epoetin [place]-epbx (Retacrit (Esrd)) 10,000 unit MoWeFr@1700 SC Last administered on 04/12/19 18:40; Admin Dose 10,000 UNIT; Start 04/03/19 at 19:30 Lansoprazole (Prevacid) 30 mg BID@0600,1800 GTB Last administered on 04/13/19 05:48; Admin Dose 30 MG; Start 04/04/19 at 18:00 Multivit/Ca Carb/ B Cmplx/FA/Prenat (Karena-Geovanni) 1 tab DAILY GTB Last admini stered on 04/13/19 08:47; Admin Dose 1 TAB; Start 04/04/19 at 11:30 Aspirin (Aspirin) 81 mg DAILY PO Last administered on 04/11/19 08:46; Admin Dose 81 MG; Start 04/05/19 at 09:00; Status Hold Clopidogrel Bisulfate (plaVIX) 75 mg DAILY GTB Last administered on 04/11/19 08:45; Admin Dose 75 MG; Start 04/07/19 at 09:00; Status Hold Quetiapine Fumarate (Seroquel) 50 mg BID GTB Last administered on 04/13/19 08:47; Admin Dose 50 MG; Start 04/07/19 at 09:00 Propofol 100 ml @ 2.097 mls/ hr Q12H PRN IV AGITATION Last administered on 04/08/19 11:39; Admin Dose 6.291 MLS/HR; Start 04/08/19 at 00:00 Fentanyl 100 ml @ 2.5 mls/hr TITRATE IV Last administered on 04/13/19 06:08; Admin Dose 10 MLS/HR; Start 04/08/19 at 00:00 Midazolam HCl 50 ml @ 1 mls/hr TITRATE PRN IV agitation Last administered on 04/13/19 04:32; Admin Dose 7 MLS/HR; Start 04/08/19 at 00:00 Norepinephrine 250 ml @ 1.875 mls/ hr TITRATE IV Last administered on 04/13/19 06:05; Admin Dose 0.938 MLS/HR; Start 04/08/19 at 00:00 Levetiracetam 100 ml @ 400 mls/hr Q12 IVPB Last administered on 04/13/19 08:48; Admin Dose 400 MLS/HR; Start 04/08/19 at 09:30 Nicardipine HCl 50 mg/Sodium Chloride 500 ml @ 50 mls/hr TITRATE IV ; Start 04/08/19 at 09:30 Mupirocin (Bactroban) 1 applic BID TOP Last administered on 04/12/19 21:28; A dmin Dose 1 APPLIC; Start 04/09/19 at 21:00 Budesonide (Pulmicort (Neb)) 0.5 mg BID RESP THERAPY HHN Last administered on 04/12/19 19:32; Admin Dose 0.5 MG; Start 04/12/19 at 09:00 Amikacin Sulfate (Amikacin Iv Per Pharmacy) AMIKACIN PER PHARMACY NOTE XX ; Start 04/12/19 at 10:30 Metronidazole 100 ml @ 100 mls/hr Q8 IVPB Last administered on 04/13/19 05:48; Admin Dose 100 MLS/HR; Start 04/12/19 at 14:00 Carvedilol (Coreg) 12.5 mg BID NGT Last administered on 04/12/19 21:22; Admin Dose 12.5 MG; Start 04/12/19 at 21:00 Amikacin Sulfate 300 mg/Sodium Chloride 101.2 ml @ 101.2 mls/ hr AFTER DIAL YSIS IVPB ; Start 04/13/19 at 09:00 Albuterol (Ventolin Hfa) 2 puff Q6H RESP THERAPY INH Last administered on 04/13/19 08:09; Admin Dose 2 PUFF; Start 04/12/19 at 20:00 Ipratropium [place] (Atrovent Hfa) 4 puff Q6H RESP THERAPY INH Last administered on 04/13/19at 08:10; Admin Dose 4 PUFF; Start 04/12/19 at 20:00 Dextrose 1,000 ml @ 75 mls/hr [id number] IV ; Start 04/13/19 at 09:00; Status UNV Metoclopramide HCl (Reglan) 5 mg Q6 IV ; Start 04/13/19 at 12:00; Status UNV Assessment/Plan Hospital Course (Demo Recall) IMP: 1. Respiratory Failure/Ventilator Dependence 2. Septic Shock 3. Chronic renal insufficiency 4. Anemia likely of chronic disease 5. Encephalopathy toxic metabolic RECS: 1. Ventilator support--patient is unable to be liberated from mechanical ventilation secondary to his encephalopathy. Decrease sedation as tolerated will attempt CPAP trial if patient is more alert. 2. Broad-spectrum antibiotics. 3. HD/UD. 4. Anti-seizure medications. 5. Continue tube feeding as tolerated Critical care time 40 minutes. Primary care team had a long discussion with family yesterday they wish to continue all aggressive measures including tracheostomy and long-term correction facility if necessary. SAMMI MOSES MD, [facility] Apr 13, 2019 08:57
[2019-04-13] MEDS ORDERED: DEXTROSE 10% 1,000 ML IV SCH (09:00)
--- NOTE | 2019-04-13 11:20 | CONS ---
Assessment/Plan Assessment/Plan Assessment/Plan (Daily) 1. Acute hypoxemic respiratory failure intubated on ventilator 2. Accelerated HTN 3. ESRD on HD - MWF schedule at [facility] HD [place] 4. H/o CAD s/p CABG before 5. H/o CAD with previous recent stent placement in 09/2018 6. h/o HTN 7. H/o DM II 8. h/o HL 9. 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 H/o BPH -EGD 04/03/2019 Moderate distal esophagitis. Gastrostomy tube in place. Gastritis rule out H. pylori infection. Biopsies obtained. Duodenitis. Colonoscopy 04/03/2019 8 sessile polyp in the cecum. Snared and retrieved. 6 mm sessile polyp ascending colon. Snared and retrieved. 6 mm sessile polyp sigmoid. Snared and retrieved. 20 mm sessile polyp sigmoid. Saline assisted lipectomy plus localization tattoo. Moderate-sized internal hemorrhoids Plan: Patient comfortable no new events. Grimaces to painful stimuli but not opening eyes and following commands consistently. s/p HD yesterday 2.3 L removed,- will continue pt on MWF schedule while being in hospital- Ventilator management as per pulmonary - BP controlled with Losartan 100mg po daily Coreg 25 BID, Hydralazine 75 mg pO TID for better BP control Epogen 03730 units SQ MWF will follow up Consultation Date/Type/Reason Admit Date/Time Mar 29, 2019 at 13:16 Initial Consult Date 03/29/19 Type of Consult NEPHROLOGY Requesting Provider: LILLIAN ZHANG MD Date/Time of Note DATE: 04/13/19 TIME: 11:20 Exam/Review of Systems Exam Vitals Vital Signs Date Temp Pulse Resp B/P (MAP) Pulse Ox O2 O2 Flow FiO2 Time Delivery Rate 04/13/19 71 08:00 04/13/19 18 92 30 07:50 04/13/19 110/57 06:45 (74) 04/13/19 Mechanical 06:00 Ventilator 04/13/19 97.7 04:00 Intake and Output 04/12/19 04/12/19 04/13/19 1515:00 23:00 07:00 IntakeIntake Total 634.775 ml 381.750 ml 227.440 ml OutputOutput Total 3400 ml 100 ml 235 ml BalanceBalance -2765.225 ml 281.750 ml -7.560 ml Exam Constitutional: intubated on ventilator , ET tube in place Respiratory: crackles/rales, diminished breath sounds Cardiovascular: regular rate and rhythm, nl pulses Gastrointestinal: soft, non-tender Musculoskeletal: swelling (1-2+pitting edema ) Extremities: normal pulses Neurological: Non focal Results Result Diagram: 04/13/19 0425 04/13/19 0425 Results 24hrs Laboratory Tests Test 04/12/19 13:04 04/12/19 17:59 04/13/19 00:04 04/13/19 04:25 Bedside Glucose 91 88 82 White Blood Count 8.3 Red Blood Count 2.81 L Hemoglobin 8.4 L Hematocrit 25.4 L Mean Corpuscular Volume 90.4 Mean Corpuscular 29.9 Hemoglobin Mean Corpuscular 33.1 Hemoglobin Concent Red Cell Distribution 17.0 H Width Platelet Count 166 Mean Platelet Volume 11.1 H Immature Granulocytes % 1.200 H Neutrophils % 74.2 Lymphocytes % 12.2 L Monocytes % 8.7 Eosinophils % 3.2 Basophils % 0.5 Nucleated Red Blood 0.0 Cells % Immature Granulocytes # 0.100 H Neutrophils # 6.2 Lymphocytes # 1.0 Monocytes # 0.7 Eosinophils # 0.3 Basophils # 0.0 Nucleated Red Blood 0.0 Cells # Sodium Level 140 Potassium Level 3.1 L Chloride Level 102 Carbon Dioxide Level 25 Anion Gap 13 Blood Urea Nitrogen 14 # Creatinine 3.85 #H Est Glomerular Filtrat 16 L Rate mL/min Glucose Level 61 #L Calcium Level 9.4 Phosphorus Level 3.2 Magnesium Level 2.1 Test 04/13/19 05:52 04/13/19 06:12 04/13/19 06:29 04/13/19 09:07 Bedside Glucose 68 L 117 118 85 Medications Medication Current Medications IV Flush (NS 3 ml) 3 ml PER PROTOCOL IV ; Start 03/29/19 at 13:30 Ondansetron HCl (Zofran Inj) 4 mg Q6H PRN IV NAUSEA/VOMITING Last administered on 04/07/19at 18:53; Admin Dose 4 MG; Start 03/29/19 at 13:30 Acetaminophen (Tylenol Tab) 650 mg Q6H PRN PO .PAIN 1-3 OR TEMP Last administered on 03/31/19at 05:48; Admin Dose 650 MG; Start 03/29/19 at 13:30 Hydralazine HCl (Apresoline) 10 mg Q4H PRN IV sbp >160 Last administered on 04/10/19at 02:35; Admin Dose 10 MG; Start 03/29/19 at 14:00 Miscellaneous Information 1 ea NOTE XX ; Start 03/29/19 at 14:30 Glucose (Glutose) 15 gm Q15M PRN PO DECREASED GLUCOSE; Start 03/29/19 at 14:30 Glucose (Glutose) 22.5 gm Q15M PRN PO DECREASED GLUCOSE; Start 03/29/19 at 14:30 Dextrose (D50w Syringe) 25 ml Q15M PRN IV DECREASED GLUCOSE Last administered on 04/13/19 05:56; Admin Dose 25 ML; Start 03/29/19 at 14:30 Dextrose (D50w Syringe) 50 ml Q15M PRN IV DECREASED GLUCOSE; Start 03/29/19 at 14:30 Glucagon (Glucagen) 1 mg Q15M PRN IM DECREASED GLUCOSE; Start 03/29/19 at 14:30 Glucose (Glutose) 15 gm Q15M PRN BUCCAL DECREASED GLUCOSE; Start 03/29/19 at 14:30 Albumin Human 100 ml @ 100 mls/hr WITH DIALYSIS PRN IV SBP <90 DURING DIALYSIS Last administered on 04/12/19at 08:58; Admin Dose 100 MLS/HR; Start 03/29/19 at 17:00 Albuterol/ Ipratropium (Duoneb) 3 ml Q2H RESP THERAPY PRN HHN WHEEZING AND RESP DISTRESS Last administered on 04/09/19at 08:52; Admin Dose 3 ML; Start 03/29/19 at 18:00 Lorazepam (Ativan) 0.5 mg Q4H PRN IV AGITATION Last administered on 04/02/19at 03:55; Admin Dose 0.5 MG; Start 03/29/19 at 18:00 IV Flush (NS 10 ml) 10 ml Q8 PRN IV IV PROTOCOL; Start 03/29/19 at 18:00 Labetalol HCl (Labetalol) 10 mg Q4H PRN IV sbp >160; Start 03/30/19 at 09:00 Haloperidol (Haldol) 5 mg Q6H PRN IM agitation Last administered on 03/31/19 00:10; Admin Dose 5 MG; Start 03/30/19 at 10:00 Heparin Sodium (Porcine) (Heparin (1000 Units/ml)) 3,200 unit AFTER DIALYSIS CATHETER Last administered on 04/12/19 12:20; Admin Dose 3,200 UNIT; Start 03/30/19 at 17:00 Atorvastatin Calcium (Lipitor) 40 mg HS NGT Last administered on 04/12/19 21:22; Admin Dose 40 MG; Start 03/31/19 at 21:00 Baclofen (Lioresal) 10 mg BID GTB Last administered on 04/13/19 08:47; Admin Dose 10 MG; Start 03/31/19 at 21:00 Doxazosin Mesylate (Cardura) 2 mg DAILY NGT Last administered on 04/11/19 08:46; Admin Dose 2 MG; Start 03/31/19 at 14:30 Gabapentin (Neurontin) 100 mg QHS PO Last administered on 04/12/19 21:22; Admin Dose 100 MG; Start 03/31/19 at 21:00 Sertraline HCl (Zoloft) 25 mg HS NGT Last administered on 04/12/19 21:21; Admin Dose 25 MG; Start 03/31/19 at 21:00 Acetaminophen (Tylenol Liquid) 650 mg Q4H PRN PEG MILD PAIN(1-3)OR ELEVATED TEMP Last administered on 04/11/19 05:14; Admin Dose 650 MG; Start 03/31/19 at 16:00 Lactobacillus Acidophilus/ Rhamnosus (Culturelle) 1 cap TID GTB Last administered on 04/13/19 08:47; Admin Dose 1 CAP; Start 04/02/19 at 13:00 Epoetin [place]-epbx (Retacrit (Esrd)) 10,000 unit MoWeFr@1700 SC Last administered on 04/12/19 18:40; Admin Dose 10,000 UNIT; Start 04/03/19 at 19:30 Lansoprazole (Prevacid) 30 mg BID@0600,1800 GTB Last administered on 04/13/19 05:48; Admin Dose 30 MG; Start 04/04/19 at 18:00 Multivit/Ca Carb/ B Cmplx/FA/Prenat (Karena-Geovanni) 1 tab DAILY GTB Last administered on 04/13/19 08:47; Admin Dose 1 TAB; Start 04/04/19 at 11:30 Aspirin (Aspirin) 81 mg DAILY PO Last administered on 04/11/19 08:46; Admin Dose 81 MG; Start 04/05/19 at 09:00; Status Hold Clopidogrel Bisulfate (plaVIX) 75 mg DAILY GTB Last administered on 04/11/19 08:45; Admin Dose 75 MG; Start 04/07/19 at 09:00; Status Hold Quetiapine Fumarate (Seroquel) 50 mg BID GTB Last administered on 04/13/19 08:47; Admin Dose 50 MG; Start 04/07/19 at 09:00 Propofol 100 ml @ 2.097 mls/ hr Q12H PRN IV AGITATION Last administered on 04/08/19 11:39; Admin Dose 6.291 MLS/HR; Start 04/08/19 at 00:00 Fentanyl 100 ml @ 2.5 mls/hr TITRATE IV Last administered on 04/13/19 06:08; Admin Dose 10 MLS/HR; Start 04/08/19 at 00:00 Midazolam HCl 50 ml @ 1 mls/hr TITRATE PRN IV agitation Last administered on 04/13/19 04:32; Admin Dose 7 MLS/HR; Start 04/08/19 at 00:00 Norepinephrine 250 ml @ 1.875 mls/ hr TITRATE IV Last administered on 04/13/19 06:05; Admin Dose 0.938 MLS/HR; Start 04/08/19 at 00:00 Levetiracetam 100 ml @ 400 mls/hr Q12 IVPB Last administered on 04/13/19 08:48; Admin Dose 400 MLS/HR; Start 04/08/19 at 09:30 Nicardipine HCl 50 mg/Sodium Chloride 500 ml @ 50 mls/hr TITRATE IV ; Start 04/08/19 at 09:30 Mupirocin (Bactroban) 1 applic BID TOP Last administered on 04/13/19 08:56; Admin Dose 1 APPLIC; Start 04/09/19 at 21:00 Budesonide (Pulmicort (Neb)) 0.5 mg BID RESP THERAPY HHN Last administered on 04/12/19 19:32; Admin Dose 0.5 MG; Start 04/12/19 at 09:00 Amikacin Sulfate (Amikacin Iv Per Pharmacy) AMIKACIN PER PHARMACY NOTE XX ; Start 04/12/19 at 10:30 Metronidazole 100 ml @ 100 mls/hr Q8 IVPB Last administered on 04/13/19at 05:48; Admin Dose 100 MLS/HR; Start 04/12/19 at 14:00 Carvedilol (Coreg) 12.5 mg BID NGT Last administered on 04/12/19at 21:22; Admin Dose 12.5 MG; Start 04/12/19 at 21:00 Amikacin Sulfate 300 mg/Sodium Chloride 101.2 ml @ 101.2 mls/ hr AFTER DIALYSIS IVPB ; Start 04/13/19 at 09:00 Albuterol (Ventolin Hfa) 2 puff Q6H RESP THERAPY INH Last administered on 04/13/19at 08:09; Admin Dose 2 PUFF; Start 04/12/19 at 20:00 Ipratropium [place] (Atrovent Hfa) 4 puff Q6H RESP THERAPY INH Last administered on 04/13/19at 08:10; Admin Dose 4 PUFF; Start 04/12/19 at 20:00 Dextrose 1,000 ml @ 75 mls/hr [id number] IV Last administered on 04/13/19at 09:08; Admin Dose 75 MLS/HR; Start 04/13/19 at 09:00 Metoclopramide HCl (Reglan) 5 mg Q6 IV ; Start 04/13/19 at 12:00 Insulin Aspart (Novolog Insulin Pen) NOVOLOG *MILD* ALGORI... Q4 SC ; Start 04/13/19 at 09:00 BETZAIDA YAÑEZ MD Apr 13, 2019 11:20
--- NOTE | 2019-04-13 11:53 | PN ---
Date/Time of Note Date/Time of Note DATE: 04/13/19 TIME: 11:52 Objective Vitals Vital Signs Date Temp Pulse Resp B/P (MAP) Pulse Ox O2 O2 Flow FiO2 Time Delivery Rate 04/13/19 30 11:38 04/13/19 72 18 119/67 97 11:30 (84) 04/13/19 Mechanical 11:00 Ventilator 04/13/19 98.7 08:00 Intake and Output 04/12/19 04/12/19 04/13/19 1515:00 23:00 07:00 IntakeIntake Total 634.775 ml 381.750 ml 228.378 ml OutputOutput Total 3400 ml 100 ml 235 ml BalanceBalance -2765.225 ml 281.750 ml -6.622 ml Results Result Diagram: 04/13/19 0425 04/13/19 0425 Medications Medications Current Medications IV Flush (NS 3 ml) 3 ml PER PROTOCOL IV ; Start 03/29/19 at 13:30 Ondansetron HCl (Zofran Inj) 4 mg Q6H PRN IV NAUSEA/VOMITING Last administered on 04/07/19at 18:53; Admin Dose 4 MG; Start 03/29/19 at 13:30 Acetaminophen (Tylenol Tab) 650 mg Q6H PRN PO .PAIN 1-3 OR TEMP Last administered on 03/31/19at 05:48; Admin Dose 650 MG; Start 03/29/19 at 13:30 Hydralazine HCl (Apresoline) 10 mg Q4H PRN IV sbp >160 Last administered on 04/10/19at 02:35; Admin Dose 10 MG; Start 03/29/19 at 14:00 Miscellaneous Information 1 ea NOTE XX ; Start 03/29/19 at 14:30 Glucose (Glutose) 15 gm Q15M PRN PO DECREASED GLUCOSE; Start 03/29/19 at 14:30 Glucose (Glutose) 22.5 gm Q15M PRN PO DECREASED GLUCOSE; Start 03/29/19 at 14: 30 Dextrose (D50w Syringe) 25 ml Q15M PRN IV DECREASED GLUCOSE Last administered on 04/13/19at 05:56; Admin Dose 25 ML; Start 03/29/19 at 14:30 Dextrose (D50w Syringe) 50 ml Q15M PRN IV DECREASED GLUCOSE; Start 03/29/19 at 14:30 Glucagon (Glucagen) 1 mg Q15M PRN IM DECREASED GLUCOSE; Start 03/29/19 at 14:30 Glucose (Glutose) 15 gm Q15M PRN BUCCAL DECREASED GLUCOSE; Start 03/29/19 at 14:30 Albumin Human 100 ml @ 100 mls/hr WITH DIALYSIS PRN IV SBP <90 DURING DIALYSIS Last administered on 04/12/19 08:58; Admin Dose 100 MLS/HR; Start 03/29/19 at 17:00 Albuterol/ Ipratropium (Duoneb) 3 ml Q2H RESP THERAPY PRN HHN WHEEZING AND RESP DISTRESS Last administered on 04/09/19 08:52; Admin Dose 3 ML; Start 03/29/19 at 18:00 Lorazepam (Ativan) 0.5 mg Q4H PRN IV AGITATION Last administered on 04/02/19 03:55; Admin Dose 0.5 MG; Start 03/29/19 at 18:00 IV Flush (NS 10 ml) 10 ml Q8 PRN IV IV PROTOCOL; Start 03/29/19 at 18:00 Labetalol HCl (Labetalol) 10 mg Q4H PRN IV sbp >160; Start 03/30/19 at 09:00 Haloperidol (Haldol) 5 mg Q6H PRN IM agitation Last administered on 03/31/19 00:10; Admin Dose 5 MG; Start 03/30/19 at 10:00 Heparin Sodium (Porcine) (Heparin (1000 Units/ml)) 3,200 unit AFTER DIALYSIS CATHETER Last administered on 04/12/19 12:20; Admin Dose 3,200 UNIT; Start 03/30/19 at 17:00 Atorvastatin Calcium (Lipitor) 40 mg HS NGT Last administered on 04/12/19 21:22; Admin Dose 40 MG; Start 03/31/19 at 21:00 Baclofen (Lioresal) 10 mg BID GTB Last administered on 04/13/19 08:47; Admin Dose 10 MG; Start 03/31/19 at 21:00 Doxazosin Mesylate (Cardura) 2 mg DAILY NGT Last administered on 04/11/19 08:46; Admin Dose 2 MG; Start 03/31/19 at 14:30 Gabapentin (Neurontin) 100 mg QHS PO Last administered on 04/12/19 21:22; Admin Dose 100 MG; Start 03/31/19 at 21:00 Sertraline HCl (Zoloft) 25 mg HS NGT Last administered on 04/12/19 21:21; Admin Dose 25 MG; Start 03/31/19 at 21:00 Acetaminophen (Tylenol Liquid) 650 mg Q4H PRN PEG MILD PAIN(1-3)OR ELEVATED TEMP Last administered on 04/11/19 05:14; Admin Dose 650 MG; Start 03/31/19 at 16:00 Lactobacillus Acidophilus/ Rhamnosus (Culturelle) 1 cap TID GTB Last administered on 04/13/19 08:47; Admin Dose 1 CAP; Start 04/02/19 at 13:00 Epoetin [place]-epbx (Retacrit (Esrd)) 10,000 unit MoWeFr@1700 SC Last administered on 04/12/19 18:40; Admin Dose 10,000 UNIT; Start 04/03/19 at 19:30 Lansoprazole (Prevacid) 30 mg BID@0600,1800 GTB Last administered on 04/13/19 05:48; Admin Dose 30 MG; Start 04/04/19 at 18:00 Multivit/Ca Carb/ B Cmplx/FA/Prenat (Karena-Geovanni) 1 tab DAILY GTB Last administered on 04/13/19 08:47; Admin Dose 1 TAB; Start 04/04/19 at 11:30 Aspirin (Aspirin) 81 mg DAILY PO Last administered on 04/11/19 08:46; Admin Dose 81 MG; Start 04/05/19 at 09:00; Status Hold Clopidogrel Bisulfate (plaVIX) 75 mg DAILY GTB Last administered on 04/11/19 08:45; Admin Dose 75 MG; Start 04/07/19 at 09:00; Status Hold Quetiapine Fumarate (Seroquel) 50 mg BID GTB Last administered on 04/13/19 08:47; Admin Dose 50 MG; Start 04/07/19 at 09:00 Propofol 100 ml @ 2.097 mls/ hr Q12H PRN IV AGITATION Last administered on 04/08/19 11:39; Admin Dose 6.291 MLS/HR; Start 04/08/19 at 00:00 Fentanyl 100 ml @ 2.5 mls/hr TITRATE IV Last administered on 04/13/19 06:08; Admin Dose 10 MLS/HR; Start 04/08/19 at 00:00 Midazolam HCl 50 ml @ 1 mls/hr TITRATE PRN IV agitation Last administered on 04/13/19 04:32; Admin Dose 7 MLS/HR; Start 04/08/19 at 00:00 Norepinephrine 250 ml @ 1.875 mls/ hr TITRATE IV Last administered on 04/13/19 06:05; Admin Dose 0.938 MLS/HR; Start 04/08/19 at 00:00 Levetiracetam 100 ml @ 400 mls/hr Q12 IVPB Last administered on 04/13/19 08:48; Admin Dose 400 MLS/HR; Start 04/08/19 at 09:30 Nicardipine HCl 50 mg/Sodium Chloride 500 ml @ 50 mls/hr TITRATE IV ; Start 04/08/19 at 09:30 Mupirocin (Bactroban) 1 applic BID TOP Last administered on 04/13/19 08:56; Admin Dose 1 APPLIC; Start 04/09/19 at 21:00 Budesonide (Pulmicort (Neb)) 0.5 mg BID RESP THERAPY HHN Last administered on 04/12/19 19:32; Admin Dose 0.5 MG; Start 04/12/19 at 09:00 Amikacin Sulfate (Amikacin Iv Per Pharmacy) AMIKACIN PER PHARMACY NOTE XX ; Start 04/12/19 at 10:30 Metronidazole 100 ml @ 100 mls/hr Q8 IVPB Last administered on 04/13/19 05:48; Admin Dose 100 MLS/HR; Start 04/12/19 at 14:00 Carvedilol (Coreg) 12.5 mg BID NGT Last administered on 04/12/19 21:22; Admin Dose 12.5 MG; Start 04/12/19 at 21:00 Amikacin Sulfate 300 mg/Sodium Chloride 101.2 ml @ 101.2 mls/ hr AFTER DIALYSIS IVPB ; Start 04/13/19 at 09:00 Albuterol (Ventolin Hfa) 2 puff Q6H RESP THERAPY INH Last administered on 04/13/19 08:09; Admin Dose 2 PUFF; Start 04/12/19 at 20:00 Ipratropium [place] (Atrovent Hfa) 4 puff Q6H RESP THERAPY INH Last administered on 04/13/19at 08:10; Admin Dose 4 PUFF; Start 04/12/19 at 20:00 Dextrose 1,000 ml @ 75 mls/hr [id number] IV Last administered on 04/13/19at 09:08; Admin Dose 75 MLS/HR; Start 04/13/19 at 09:00 Metoclopramide HCl (Reglan) 5 mg Q6 IV ; Start 04/13/19 at 12:00 Insulin Aspart (Novolog Insulin Pen) NOVOLOG *MILD* ALGORI... Q4 SC ; Start 04/13/19 at 09:00 VTE Prophylaxis Risk score (from Ns)>0 risk: 8 SCD applied (from [facility] [place]): Yes Lines/Catheters IV Catheter Type: Win[place] in Place: No Assessment/Plan Hospital Course Subjective Patient is still intubated but now off pressors Objective Physical exam General: Patient is laying in bed intubated and sedated Mentation: Patient is not alert, Head: Normocephalic atraumatic Eyes: EOMI, pupils reactive to light Neck: Supple, nontender, midline Respiratory: Clear to auscultation bilaterally Cardiovascular: regular rate, no obvious murmurs Gastrointestinal: non-tender to palpation, bowel sounds heard. Neurological: Unable to assess however has minimal to no response to noxious stimuli on the left side Skin: No new skin lesions Assessment/Plan Acute hypoxic respiratory failure -Status post intubation, extubate when able -initial CT abdomen pelvis showing possible pneumonia which would make sense in this encephalopathic patient in the hospital -Broad-spectrum antibiotics -Treatment per pulmonology Septic shock, intermittent -Secondary to likely pneumonia -Infectious disease consulted -Cultures taken, CT showing possibly distended bladder wall for cystitis however UTI is not necessarily revealing for infection -IV antibiotic Likely aspiration pneumonia -Would explain mild fever before as well as symptoms and [employer] that led to patient's intubation -IV antibiotic -Infectious disease on board Acute on chronic encephalopathy - still restless and trying to get out of bed. Continue Seroquel as needed - Neurology on board and appreciate recommendations. CT unrevealing -Possible new CVA as patient has recent history of multiple CVAs, however patient is not able to tolerate MRI at this time due to agitation -Use as needed medications. Hypertensive emergency-resolved for now - BP better controlled, hypotensive at the moment anemia- -No concrete source of bleeding, GI recommendations appreciated, transfuse as needed will hold patient's aspirin and Plavix for now. - EGD revealed moderate distal esophagitis and gastritis and duodenitis. Colonoscopy showed internal hemorrhoids - GI consultation appreciated. Will need repeat colonoscopy in 6 months - continue PPI Leukocytosis-resolved -Possibly secondary to pneumonia, infectious disease on board, continue IV antibiotics Dysphasia -PEG tube ok for use per GI End-stage renal disease on hemodialysis - Nephrology on board and appreciate consultation. Continue HD Coronary artery disease status post CABG history - continue home medications - continue aspirin and Plavix when able Epilepsy - Continue Keppra History of CVA with residual left-sided deficit and more recent CVA 1 month ago - Patient reportedly had a new stroke approximately 1 month ago at [facility] which is the cause of patient's current encephalopathic state - After speaking with daughter, appears this is patient's baseline after leaving [facility] proximally 1 week ago. Patient suffered CVA and subsequent long stay in the ICU which required intubation and PEG tube. Patient almost required tracheostomy however appear to have been able to be weaned off the ventilator. - Neurology consultation appreciated BPH Disposition -Patient intubated in the ICU, likely secondary to septic shock secondary to pneumonia, infectious disease has been consulted, keep in ICU monitor closely -Patient may be difficult to extubate given history of poor extubation -Held family meeting with multiple family members on April 12, 2019, plan currently is full code and to proceed with tracheostomy if needed More than 40 minutes of critical care time has been spent on this encounter STEWART WINTER Apr 13, 2019 11:53
[2019-04-13] MEDS: BUDESONIDE (NEB) 0.5MG/2ML AMP HHN SCH ×2 (12:00→20:15)
[2019-04-13] MEDS: METOCLOPRAMIDE 10 MG INJ IV SCH ×2 (12:38→17:32)
--- NOTE | 2019-04-13 13:34 | PN ---
Date/Time of Note Date/Time of Note DATE: 04/13/19 TIME: 13:31 Assessment/Plan VTE Prophylaxis Risk score (from [facility])>0 risk: 8 SCD applied (from [facility]): Yes Pharmacological prophylaxis: other (scds) Lines/Catheters IV Catheter Type (from [facility]): Urinary Cath still in place: No Assessment/Plan Hospital Course Assessment/Plan Assessment: Severe anemia-improved- hgb- 7.9 04/10/19- no overt signs of GI bleed -EGD 04/03/2019 Moderate distal esophagitis. Gastrostomy tube in place. Gastritis -biopsies are negative for H. pylori. Duodenitis. Colonoscopy 04/03/2019 8 sessile polyp in the cecum. Snared and retrieved. -Tubular adenoma 6 mm sessile polyp ascending colon. Snared and retrieved. -Tubular adenoma 6 mm sessile polyp sigmoid. Snared and retrieved. -Tubular adenoma 20 mm sessile polyp sigmoid. Saline assisted lipectomy plus localization tattoo. Moderate-sized internal hemorrhoids. 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 -Replaced with 18 [place] gastrostomy tube Coronary artery disease status post CABG history Epilepsy BPH Query aspiration PNA Plan: Continue G-tube feeding, hold for residuals greater than 150 cc. Reglan 5mg IV q6hr has been started Monitor H&H Transfuse for hemoglobin less than 7.5 Patient seen in collaboration with Dr. Sanders Subjective: Course reviewed with nursing staff Patient interviewed and examined All labs, imaging and other results reviewed Patient appears comfortable, No over night events not tolerating TF- was just started on Reglan- will continue to monitor PHYSICAL EXAMINATION: GENERAL: Well developed, well nourished, intubated and sedated SKIN: No lesions, g-tube in place NECK: Supple, no masses, thyroid normal CHEST: Inspection within normal limits. CARDIOVASCULAR: Heart: Regular rate and rhythm RESPIRATORY: Lungs clear to auscultation. GASTROINTESTINAL AND LIVER: Abdomen: Soft, G-tube in place, non-distended, no organomegaly, no ascites, no guarding, no rebound tenderness, normoactive bowel sounds. Rectal: Deferred. GENITOURINARY: Male genitalia within normal limits. EXTREMITIES: No cyanosis, clubbing or edema. Result Diagram: 04/13/19 0425 04/13/19 0425 Results 24hrs Laboratory Tests Test 04/12/19 17:59 04/13/19 00:04 04/13/19 04:25 04/13/19 05:52 Bedside Glucose 88 82 68 L White Blood Count 8.3 Red Blood Count 2.81 L Hemoglobin 8.4 L Hematocrit 25.4 L Mean Corpuscular Volume 90.4 Mean Corpuscular 29.9 Hemoglobin Mean Corpuscular 33.1 Hemoglobin Concent Red Cell Distribution 17.0 H Width Platelet Count 166 Mean Platelet Volume 11.1 H Immature Granulocytes % 1.200 H Neutrophils % 74.2 Lymphocytes % 12.2 L Monocytes % 8.7 Eosinophils % 3.2 Basophils % 0.5 Nucleated Red Blood 0.0 Cells % Immature Granulocytes # 0.100 H Neutrophils # 6.2 Lymphocytes # 1.0 Monocytes # 0.7 Eosinophils # 0.3 Basophils # 0.0 Nucleated Red Blood 0.0 Cells # Sodium Level 140 Potassium Level 3.1 L Chloride Level 102 Carbon Dioxide Level 25 Anion Gap 13 Blood Urea Nitrogen 14 # Creatinine 3.85 #H Est Glomerular Filtrat 16 L Rate mL/min Glucose Level 61 #L Calcium Level 9.4 Phosphorus Level 3.2 Magnesium Level 2.1 Test 04/13/19 06:12 04/13/19 06:29 04/13/19 09:07 04/13/19 12:38 Bedside Glucose 117 118 85 100 Exam/Review of Systems Exam Vitals Vital Signs Date Temp Pulse Resp B/P (MAP) Pulse Ox O2 O2 Flow FiO2 Time Delivery Rate 04/13/19 73 18 97 50 13:15 04/13/19 98.8 128/74 Mechanical 12:00 (92) Ventilator Intake and Output 04/12/19 04/12/19 04/13/19 1515:00 23:00 07:00 IntakeIntake Total 634.775 ml 381.750 ml 228.378 ml OutputOutput Total 3400 ml 100 ml 235 ml BalanceBalance -2765.225 ml 281.750 ml -6.622 ml Results Results 24hrs Laboratory Tests Test 04/12/19 17:59 04/13/19 00:04 04/13/19 04:25 04/13/19 05:52 Bedside Glucose 88 82 68 L White Blood Count 8.3 Red Blood Count 2.81 L Hemoglobin 8.4 L Hematocrit 25.4 L Mean Corpuscular Volume 90.4 Mean Corpuscular 29.9 Hemoglobin Mean Corpuscular 33.1 Hemoglobin Concent Red Cell Distribution 17.0 H Width Platelet Count 166 Mean Platelet Volume 11.1 H Immature Granulocytes % 1.200 H Neutrophils % 74.2 Lymphocytes % 12.2 L Monocytes % 8.7 Eosinophils % 3.2 Basophils % 0.5 Nucleated Red Blood 0.0 Cells % Immature Granulocytes # 0.100 H Neutrophils # 6.2 Lymphocytes # 1.0 Monocytes # 0.7 Eosinophils # 0.3 Basophils # 0.0 Nucleated Red Blood 0.0 Cells # Sodium Level 140 Potassium Level 3.1 L Chloride Level 102 Carbon Dioxide Level 25 Anion Gap 13 Blood Urea Nitrogen 14 # Creatinine 3.85 #H Est Glomerular Filtrat 16 L Rate mL/min Glucose Level 61 #L Calcium Level 9.4 Phosphorus Level 3.2 Magnesium Level 2.1 Test 04/13/19 06:12 04/13/19 06:29 04/13/19 09:07 04/13/19 12:38 Bedside Glucose 117 118 85 100 Medications Medication Current Medications IV Flush (NS 3 ml) 3 ml PER PROTOCOL IV ; Start 03/29/19 at 13:30 Ondansetron HCl (Zofran Inj) 4 mg Q6H PRN IV NAUSEA/VOMITING Last administered on 04/07/19at 18:53; Admin Dose 4 MG; Start 03/29/19 at 13:30 Acetaminophen (Tylenol Tab) 650 mg Q6H PRN PO .PAIN 1-3 OR TEMP Last administered on 03/31/19at 05:48; Admin Dose 650 MG; Start 03/29/19 at 13:30 Hydralazine HCl (Apresoline) 10 mg Q4H PRN IV sbp >160 Last administered on 04/10/19at 02:35; Admin Dose 10 MG; Start 03/29/19 at 14:00 Miscellaneous Information 1 ea NOTE XX ; Start 03/29/19 at 14:30 Glucose (Glutose) 15 gm Q15M PRN PO DECREASED GLUCOSE; Start 03/29/19 at 14:30 Glucose (Glutose) 22.5 gm Q15M PRN PO DECREASED GLUCOSE; Start 03/29/19 at 14:30 Dextrose (D50w Syringe) 25 ml Q15M PRN IV DECREASED GLUCOSE Last administered on 04/13/19at 05:56; Admin Dose 25 ML; Start 03/29/19 at 14:30 Dextrose (D50w Syringe) 50 ml Q15M PRN IV DECREASED GLUCOSE; Start 03/29/19 at 14:30 Glucagon (Glucagen) 1 mg Q15M PRN IM DECREASED GLUCOSE; Start 03/29/19 at 14:30 Glucose (Glutose) 15 gm Q15M PRN BUCCAL DECREASED GLUCOSE; Start 03/29/19 at 14:30 Albumin Human 100 ml @ 100 mls/hr WITH DIALYSIS PRN IV SBP <90 DURING DIALYSIS Last administered on 04/12/19 08:58; Admin Dose 100 MLS/HR; Start 03/29/19 at 17:00 Albuterol/ Ipratropium (Duoneb) 3 ml Q2H RESP THERAPY PRN HHN WHEEZING AND RESP DISTRESS Last administered on 04/09/19 08:52; Admin Dose 3 ML; Start 03/29/19 at 18:00 Lorazepam (Ativan) 0.5 mg Q4H PRN IV AGITATION Last administered on 04/02/19 03:55; Admin Dose 0.5 MG; Start 03/29/19 at 18:00 IV Flush (NS 10 ml) 10 ml Q8 PRN IV IV PROTOCOL; Start 03/29/19 at 18:00 Labetalol HCl (Labetalol) 10 mg Q4H PRN IV sbp >160; Start 03/30/19 at 09:00 Haloperidol (Haldol) 5 mg Q6H PRN IM agitation Last administered on 03/31/19at 00:10; Admin Dose 5 MG; Start 03/30/19 at 10:00 Heparin Sodium (Porcine) (Heparin (1000 Units/ml)) 3,200 unit AFTER DIALYSIS CATHETER Last administered on 04/12/19 12:20; Admin Dose 3,200 UNIT; Start 03/30/19 at 17:00 Atorvastatin Calcium (Lipitor) 40 mg HS NGT Last administered on 04/12/19 21:22; Admin Dose 40 MG; Start 03/31/19 at 21:00 Baclofen (Lioresal) 10 mg BID GTB Last administered on 04/13/19 08:47; Admin Dose 10 MG; Start 03/31/19 at 21:00 Doxazosin Mesylate (Cardura) 2 mg DAILY NGT Last administered on 04/11/19 08:46; Admin Dose 2 MG; Start 03/31/19 at 14:30 Gabapentin (Neurontin) 100 mg QHS PO Last administered on 04/12/19 21:22; Admin Dose 100 MG; Start 03/31/19 at 21:00 Sertraline HCl (Zoloft) 25 mg HS NGT Last administered on 04/12/19 21:21; Admin Dose 25 MG; Start 03/31/19 at 21:00 Acetaminophen (Tylenol Liquid) 650 mg Q4H PRN PEG MILD PAIN(1-3)OR ELEVATED TEMP Last administered on 04/11/19 05:14; Admin Dose 650 MG; Start 03/31/19 at 16:00 Lactobacillus Acidophilus/ Rhamnosus (Culturelle) 1 cap TID GTB Last administered on 04/13/19 12:38; Admin Dose 1 CAP; Start 04/02/19 at 13:00 Epoetin [place]-epbx (Retacrit (Esrd)) 10,000 unit MoWeFr@1700 SC Last administered on 04/12/19 18:40; Admin Dose 10,000 UNIT; Start 04/03/19 at 19:30 Lansoprazole (Prevacid) 30 mg BID@0600,1800 GTB Last administered on 04/13/19 05:48; Admin Dose 30 MG; Start 04/04/19 at 18:00 Multivit/Ca Carb/ B Cmplx/FA/Prenat (Karena-Geovanni) 1 tab DAILY GTB Last admin istered on 04/13/19 08:47; Admin Dose 1 TAB; Start 04/04/19 at 11:30 Aspirin (Aspirin) 81 mg DAILY PO Last administered on 04/11/19 08:46; Admin Dose 81 MG; Start 04/05/19 at 09:00; Status Hold Clopidogrel Bisulfate (plaVIX) 75 mg DAILY GTB Last administered on 04/11/19 08:45; Admin Dose 75 MG; Start 04/07/19 at 09:00; Status Hold Quetiapine Fumarate (Seroquel) 50 mg BID GTB Last administered on 04/13/19 08:47; Admin Dose 50 MG; Start 04/07/19 at 09:00 Propofol 100 ml @ 2.097 mls/ hr Q12H PRN IV AGITATION Last administered on 04/08/19 11:39; Admin Dose 6.291 MLS/HR; Start 04/08/19 at 00:00 Fentanyl 100 ml @ 2.5 mls/hr TITRATE IV Last administered on 04/13/19 06:08; Admin Dose 10 MLS/HR; Start 04/08/19 at 00:00 Midazolam HCl 50 ml @ 1 mls/hr TITRATE PRN IV agitation Last administered on 04/13/19 04:32; Admin Dose 7 MLS/HR; Start 04/08/19 at 00:00 Norepinephrine 250 ml @ 1.875 mls/ hr TITRATE IV Last administered on 04/13/19 06:05; Admin Dose 0.938 MLS/HR; Start 04/08/19 at 00:00 Levetiracetam 100 ml @ 400 mls/hr Q12 IVPB Last administered on 04/13/19 08:48; Admin Dose 400 MLS/HR; Start 04/08/19 at 09:30 Nicardipine HCl 50 mg/Sodium Chloride 500 ml @ 50 mls/hr TITRATE IV ; Start 04/08/19 at 09:30 Mupirocin (Bactroban) 1 applic BID TOP Last administered on 04/13/19 08:56; Admin Dose 1 APPLIC; Start 04/09/19 at 21:00 Budesonide (Pulmicort (Neb)) 0.5 mg BID RESP THERAPY HHN Last administered on 04/13/19at 12:00; Admin Dose 0.5 MG; Start 04/12/19 at 09:00 Amikacin Sulfate (Amikacin Iv Per Pharmacy) AMIKACIN PER PHARMACY NOTE XX ; Start 04/12/19 at 10:30 Metronidazole 100 ml @ 100 mls/hr Q8 IVPB Last administered on 04/13/19 05:48; Admin Dose 100 MLS/HR; Start 04/12/19 at 14:00 Carvedilol (Coreg) 12.5 mg BID NGT Last administered on 04/12/19 21:22; Admin Dose 12.5 MG; Start 04/12/19 at 21:00 Amikacin Sulfate 300 mg/Sodium Chloride 101.2 ml @ 101.2 mls/ hr AFTER PIERRE LYSIS IVPB ; Start 04/13/19 at 09:00 Albuterol (Ventolin Hfa) 2 puff Q6H RESP THERAPY INH Last administered on 04/13/19at 13:18; Admin Dose 2 PUFF; Start 04/12/19 at 20:00 Ipratropium [place] (Atrovent Hfa) 4 puff Q6H RESP THERAPY INH Last administered on 04/13/19 13:18; Admin Dose 4 PUFF; Start 04/12/19 at 20:00 Dextrose 1,000 ml @ 75 mls/hr [id number] IV Last administered on 04/13/19 09:08; Admin Dose 75 MLS/HR; Start 04/13/19 at 09:00 Metoclopramide HCl (Reglan) 5 mg Q6 IV Last administered on 04/13/19at 12:38; Admin Dose 5 MG; Start 04/13/19 at 12:00 Insulin Aspart (Novolog Insulin Pen) NOVOLOG *MILD* ALGORI... Q4 SC ; Start 04/13/19 at 09:00 JUNE LEE Apr 13, 2019 13:34
--- NOTE | 2019-04-13 14:02 | CONS ---
Assessment/Plan Assessment/Plan Hospital Course (Demo Recall) ID PROGRESS NOTE CURRENT ABX: DAY # =>Amikacin #12 + Flagyl #2 S/P Vanco IV + Zosyn 04/13/19 0425 04/13/19 0425 24H INTERVAL SUMMARY * ABX changed yesterday per copious liquid diarrhea on Vanco/Zosyn * Non-communicative, orally intubated on mechanical ventilation * Indwelling's: Endotracheal tube right chest PermCath, PEG, Winters, PICC line DIAGNOSTIC IMAGING * 04/12/19 CXR: IMPRESSION:1. Interval decreased pulmonary edema. 2. Persistent dense opacification of the left base by combination of consolidation and small pleural effusion. 3. Unchanged small right pleural effusion. 4. Stable position of support devices. * 04/11/19 CXR: IMPRESSION:Calcified atherosclerosis in the aorta. Stable left lower lung infiltrates with small left pleural effusion.Mild interval increase in patchy infiltrates throughout the right lung. Hypoinflated lungs with an elevated right hemidiaphragm. PROCEDURES * -EGD 04/03/2019 Moderate distal esophagitis. Gastrostomy tube in place. Gastritis -biopsies are negative for H. pylori. Duodenitis. * Colonoscopy 04/03/2019 8 sessile polyp in the cecum. Snared and retrieved. -Tubular adenoma 6 mm sessile polyp ascending colon. Snared and retrieved. -Tubular adenoma 6 mm sessile polyp sigmoid. Snared and retrieved. -Tubular adenoma 20 mm sessile polyp sigmoid. Saline assisted lipectomy plus localization tattoo. Moderate-sized internal hemorrhoids. MICRO * BCx(-) * 04/07/19 BCx (-) * 04/08/19 Sputum (+) GNR x2 RESPIRATORY CULTURE Final Organism 1 K PNEUMO ESBL QUANTITY 2+ . MULTI DRUG RESISTANT ORGANISM Organism 2 SERRATIA MARCESCENS QUANTITY 2+ KLEB PNEUM KLEB PNEUM S MARCESCE M.I.C. RX M.I.C. RX M.I.C. RX --------- --- --------- --- --------- --- AMIKACIN <=2 S CEFAZOLIN R CEFEPIME 2 S CEFOTAXIME R S CIPROFLOXACIN 2 I <=0.25 S GENTAMICIN >=16 R <=1 S LEVOFLOXACIN 1 S <=0.12 S MEROPENEM 0.032 S TOBRAMYCIN >=16 R <=1 S TRIMETHOPRIM/SULFAMETHOXAZOLE >=320 R <=20 S PIPERACILLIN/TAZOBACTAM 16 S PHYSICAL EXAMINATION: GENERAL: VSS, NAD HEENT: AT, NC, NECK: Supple, CHEST: Rise symmetrical HEART: Pulse RRR ABDOMEN: Benign EXTREMITIES: Warm, dry SKIN: No rash, no diaphoresis ID ASSESSMENT 58 yo M admit with: 1. Sepsis 2. Acute respiratory failure possibly aspirated 3. Aspiration GNR HCAP 4. Encephalopathy, possible acute on chronic CVA 5. End-stage renal disease, hemodialysis dependent 6. Dysphagia-> PEG 7. Liquid diarrhea on current ABX 8. Anemia -> GI work-up Moderate Distal Esophagitis/Gastritis/Internal He morrhoids (+)MRSA Nares ->Bactroban ABX ALLERGIES: KNDA INVASIVES: PIV CURRENT ABX: DAY # Amikacin #12 + Flagyl #2 S/P Vanco IV + Zosyn ID RECOMMENDATIONS/PLAN: 1. ABX changed yesterday per copious liquid diarrhea on Vanco/Zosyn . Consultation Date/Type/Reason Admit Date/Time Mar 29, 2019 at 13:16 Initial Consult Date 04/07/19 Requesting Provider: LILLIAN ZHANG MD Date/Time of Note DATE: 04/13/19 TIME: 13:57 Exam/Review of Systems Exam Vitals Vital Signs Date Temp Pulse Resp B/P (MAP) Pulse Ox O2 O2 Flow FiO2 Time Delivery Rate 04/13/19 73 18 97 50 13:15 04/13/19 98.8 128/74 Mechanical 12:00 (92) Ventilator Intake and Output 04/12/19 04/12/19 04/13/19 1414:59 22:59 06:59 IntakeIntake Total 521.125 ml 476.525 ml 246.315 ml OutputOutput Total 3400 ml 100 ml 235 ml BalanceBalance -2878.875 ml 376.525 ml 11.315 ml Results Result Diagram: 04/13/19 0425 04/13/19 0425 Results 24hrs Laboratory Tests Test 04/12/19 17:59 04/13/19 00:04 04/13/19 04:25 04/13/19 05:52 Bedside Glucose 88 82 68 L White Blood Count 8.3 Red Blood Count 2.81 L Hemoglobin 8.4 L Hematocrit 25.4 L Mean Corpuscular Volume 90.4 Mean Corpuscular 29.9 Hemoglobin Mean Corpuscular 33.1 Hemoglobin Concent Red Cell Distribution 17.0 H Width Platelet Count 166 Mean Platelet Volume 11.1 H Immature Granulocytes % 1.200 H Neutrophils % 74.2 Lymphocytes % 12.2 L Monocytes % 8.7 Eosinophils % 3.2 Basophils % 0.5 Nucleated Red Blood 0.0 Cells % Immature Granulocytes # 0.100 H Neutrophils # 6.2 Lymphocytes # 1.0 Monocytes # 0.7 Eosinophils # 0.3 Basophils # 0.0 Nucleated Red Blood 0.0 Cells # Sodium Level 140 Potassium Level 3.1 L Chloride Level 102 Carbon Dioxide Level 25 Anion Gap 13 Blood Urea Nitrogen 14 # Creatinine 3.85 #H Est Glomerular Filtrat 16 L Rate mL/min Glucose Level 61 #L Calcium Level 9.4 Phosphorus Level 3.2 Magnesium Level 2.1 Test 04/13/19 06:12 04/13/19 06:29 04/13/19 09:07 04/13/19 12:38 Bedside Glucose 117 118 85 100 Medications Medication Current Medications IV Flush (NS 3 ml) 3 ml PER PROTOCOL IV ; Start 03/29/19 at 13:30 Ondansetron HCl (Zofran Inj) 4 mg Q6H PRN IV NAUSEA/VOMITING Last administered on 04/07/19at 18:53; Admin Dose 4 MG; Start 03/29/19 at 13:30 Acetaminophen (Tylenol Tab) 650 mg Q6H PRN PO .PAIN 1-3 OR TEMP Last administered on 03/31/19at 05:48; Admin Dose 650 MG; Start 03/29/19 at 13:30 Hydralazine HCl (Apresoline) 10 mg Q4H PRN IV sbp >160 Last administered on 04/10/19at 02:35; Admin Dose 10 MG; Start 03/29/19 at 14:00 Miscellaneous Information 1 ea NOTE XX ; Start 03/29/19 at 14:30 Glucose (Glutose) 15 gm Q15M PRN PO DECREASED GLUCOSE; Start 03/29/19 at 14:30 Glucose (Glutose) 22.5 gm Q15M PRN PO DECREASED GLUCOSE; Start 03/29/19 at 14:30 Dextrose (D50w Syringe) 25 ml Q15M PRN IV DECREASED GLUCOSE Last administered on 04/13/19 05:56; Admin Dose 25 ML; Start 03/29/19 at 14:30 Dextrose (D50w Syringe) 50 ml Q15M PRN IV DECREASED GLUCOSE; Start 03/29/19 at 14:30 Glucagon (Glucagen) 1 mg Q15M PRN IM DECREASED GLUCOSE; Start 03/29/19 at 14:30 Glucose (Glutose) 15 gm Q15M PRN BUCCAL DECREASED GLUCOSE; Start 03/29/19 at 14:30 Albumin Human 100 ml @ 100 mls/hr WITH DIALYSIS PRN IV SBP <90 DURING DIALYSIS Last administered on 04/12/19 08:58; Admin Dose 100 MLS/HR; Start 03/29/19 at 17:00 Albuterol/ Ipratropium (Duoneb) 3 ml Q2H RESP THERAPY PRN HHN WHEEZING AND RESP DISTRESS Last administered on 04/09/19 08:52; Admin Dose 3 ML; Start 03/29/19 at 18:00 Lorazepam (Ativan) 0.5 mg Q4H PRN IV AGITATION Last administered on 04/02/19 03:55; Admin Dose 0.5 MG; Start 03/29/19 at 18:00 IV Flush (NS 10 ml) 10 ml Q8 PRN IV IV PROTOCOL; Start 03/29/19 at 18:00 Labetalol HCl (Labetalol) 10 mg Q4H PRN IV sbp >160; Start 03/30/19 at 09:00 Haloperidol (Haldol) 5 mg Q6H PRN IM agitation Last administered on 03/31/19 00:10; Admin Dose 5 MG; Start 03/30/19 at 10:00 Heparin Sodium (Porcine) (Heparin (1000 Units/ml)) 3,200 unit AFTER DIALYSIS CATHETER Last administered on 04/12/19 12:20; Admin Dose 3,200 UNIT; Start 03/30/19 at 17:00 Atorvastatin Calcium (Lipitor) 40 mg HS NGT Last administered on 04/12/19 21:22; Admin Dose 40 MG; Start 03/31/19 at 21:00 Baclofen (Lioresal) 10 mg BID GTB Last administered on 04/13/19 08:47; Admin Dose 10 MG; Start 03/31/19 at 21:00 Doxazosin Mesylate (Cardura) 2 mg DAILY NGT Last administered on 04/11/19 08:46; Admin Dose 2 MG; Start 03/31/19 at 14:30 Gabapentin (Neurontin) 100 mg QHS PO Last administered on 04/12/19 21:22; Admin Dose 100 MG; Start 03/31/19 at 21:00 Sertraline HCl (Zoloft) 25 mg HS NGT Last administered on 04/12/19 21:21; Admin Dose 25 MG; Start 03/31/19 at 21:00 Acetaminophen (Tylenol Liquid) 650 mg Q4H PRN PEG MILD PAIN(1-3)OR ELEVATED TEMP Last administered on 04/11/19 05:14; Admin Dose 650 MG; Start 03/31/19 at 16:00 Lactobacillus Acidophilus/ Rhamnosus (Culturelle) 1 cap TID GTB Last admi nistered on 04/13/19 12:38; Admin Dose 1 CAP; Start 04/02/19 at 13:00 Epoetin [place]-epbx (Retacrit (Esrd)) 10,000 unit MoWeFr@1700 SC Last administered on 04/12/19 18:40; Admin Dose 10,000 UNIT; Start 04/03/19 at 19:30 Lansoprazole (Prevacid) 30 mg BID@0600,1800 GTB Last administered on 04/13/19 05:48; Admin Dose 30 MG; Start 04/04/19 at 18:00 Multivit/Ca Carb/ B Cmplx/FA/Prenat (Karena-Geovanni) 1 tab DAILY GTB Last administered on 04/13/19 08:47; Admin Dose 1 TAB; Start 04/04/19 at 11:30 Aspirin (Aspirin) 81 mg DAILY PO Last administered on 7/4/19at 08:46; Admin Dose 81 MG; Start 04/05/19 at 09:00; Status Hold Clopidogrel Bisulfate (plaVIX) 75 mg DAILY GTB Last administered on 04/11/19 08:45; Admin Dose 75 MG; Start 04/07/19 at 09:00; Status Hold Quetiapine Fumarate (Seroquel) 50 mg BID GTB Last administered on 04/13/19 08:47; Admin Dose 50 MG; Start 04/07/19 at 09:00 Propofol 100 ml @ 2.097 mls/ hr Q12H PRN IV AGITATION Last administered on 04/08/19 11:39; Admin Dose 6.291 MLS/HR; Start 04/08/19 at 00:00 Fentanyl 100 ml @ 2.5 mls/hr TITRATE IV Last administered on 04/13/19 06:08; Admin Dose 10 MLS/HR; Start 04/08/19 at 00:00 Midazolam HCl 50 ml @ 1 mls/hr TITRATE PRN IV agitation Last administered on 04/13/19 04:32; Admin Dose 7 MLS/HR; Start 04/08/19 at 00:00 Norepinephrine 250 ml @ 1.875 mls/ hr TITRATE IV Last administered on 04/13/19 06:05; Admin Dose 0.938 MLS/HR; Start 04/08/19 at 00:00 Levetiracetam 100 ml @ 400 mls/hr Q12 IVPB Last administered on 04/13/19 08 :48; Admin Dose 400 MLS/HR; Start 04/08/19 at 09:30 Nicardipine HCl 50 mg/Sodium Chloride 500 ml @ 50 mls/hr TITRATE IV ; Start 04/08/19 at 09:30 Mupirocin (Bactroban) 1 applic BID TOP Last administered on 04/13/19 08:56; Admin Dose 1 APPLIC; Start 04/09/19 at 21:00 Budesonide (Pulmicort (Neb)) 0.5 mg BID RESP THERAPY HHN Last administered on 04/13/19 12:00; Admin Dose 0.5 MG; Start 04/12/19 at 09:00 Amikacin Sulfate (Amikacin Iv Per Pharmacy) AMIKACIN PER PHARMACY NOTE XX ; Start 04/12/19 at 10:30 Metronidazole 100 ml @ 100 mls/hr Q8 IVPB Last administered on 04/13/19 05:48; Admin Dose 100 MLS/HR; Start 04/12/19 at 14:00 Carvedilol (Coreg) 12.5 mg BID NGT Last administered on 04/12/19 21:22; Admin Dose 12.5 MG; Start 04/12/19 at 21:00 Amikacin Sulfate 300 mg/Sodium Chloride 101.2 ml @ 101.2 mls/ hr AFTER DIALYSIS IVPB ; Start 04/13/19 at 09:00 Albuterol (Ventolin Hfa) 2 puff Q6H RESP THERAPY INH Last administered on 04/13/19 13:18; Admin Dose 2 PUFF; Start 04/12/19 at 20:00 Ipratropium [place] (Atrovent Hfa) 4 puff Q6H RESP THERAPY INH Last administered on 04/13/19 13:18; Admin Dose 4 PUFF; Start 04/12/19 at 20:00 Dextrose 1,000 ml @ 75 mls/hr [id number] IV Last administered on 04/13/19 09:08; Admin Dose 75 MLS/HR; Start 04/13/19 at 09:00 Metoclopramide HCl (Reglan) 5 mg Q6 IV Last administered on 04/13/19at 12:38; Admin Dose 5 MG; Start 04/13/19 at 12:00 Insulin Aspart (Novolog Insulin Pen) NOVOLOG *MILD* ALGORI... Q4 SC ; Start 04/13/19 at 09:00 PEE CHAIDEZ NP Apr 13, 2019 14:01
[2019-04-13] MEDS: GABAPENTIN 100 MG CAP PO SCH (21:35)
[2019-04-13] MEDS: SERTRALINE 50 MG TAB NGT SCH (21:35)
[2019-04-13] MEDS: ATORVASTATIN 40 MG TAB NGT SCH (21:35)
[2019-04-14] VITALS (102 sets, daily range): BP systolic 68–204; BP diastolic 44–99; PULSE 58–111; RESP 0–34
[2019-04-14] MEDS: METOCLOPRAMIDE 10 MG INJ IV SCH ×4 (00:51→17:02)
[2019-04-14] MEDS: INSULIN ASPART [NOVOLOG] 3 ML PEN SC SCH ×6 (00:54→21:54)
[2019-04-14] MEDS: IPRATROPIUM (HFA) 12.9 GM INHALER INH SCH ×4 (03:11→20:47)
[2019-04-14] MEDS: ALBUTEROL HFA 8 GM INHALER INH SCH ×4 (03:11→20:47)
[2019-04-14] MEDS: NORepinephrine 8MG/250 ML (PMX 250 ML IV SCH (04:43)
[2019-04-14] MEDS: metroNIDAZOLE 500 MG/NS (PMX) 100 ML IVPB SCH ×3 (05:42→22:32)
[2019-04-14] MEDS: LANSOPRAZOLE 30 MG CAP GTB SCH ×2 (05:42→17:02)
[2019-04-14] MEDS: MIDAZOLAM (DRIP) 50 mg/50 mL 50 ML IV PRN (07:12)
[2019-04-14] MEDS: LEVETIRACETAM 500 MG (PMX) 100 ML IVPB SCH ×2 (08:26→21:45)
[2019-04-14] MEDS: MULTIVIT/CA CARB/B CMPLX/FA TAB GTB SCH (08:26)
[2019-04-14] MEDS: QUETIAPINE 25 MG TAB GTB SCH ×2 (08:26→21:49)
[2019-04-14] MEDS: BACLOFEN 10 MG TAB GTB SCH ×2 (08:27→21:30)
[2019-04-14] MEDS: MUPIROCIN 2% 22 GM OINT TOP SCH ×2 (08:27→21:48)
[2019-04-14] MEDS: LACTOBACILLUS RHAMNOSUS CAP GTB SCH ×3 (08:27→21:48)
[2019-04-14] MEDS: DOXAZOSIN 2 MG TAB NGT SCH (08:28)
--- NOTE | 2019-04-14 08:58 | CONS ---
Consult Date/Type/Reason Admit Date/Time Mar 29, 2019 at 13:16 Initial Consult Date 04/07/19 Type of Consult Pulmonary Requesting Provider: LILLIAN ZHANG MD Date/Time of Note DATE: 04/14/19 TIME: 08:57 Subjective Patient comfortable no respiratory distress. Increased FiO2 requirements yesterday. Chest x-ray shows ongoing pulmonary edema. Still minimally resp onsive. Sedation vacation had been performed. Objective Vital Signs Date Temp Pulse Resp B/P (MAP) Pulse Ox O2 O2 Flow FiO2 Time Delivery Rate 04/14/19 63 18 100 60 07:30 04/14/19 115/60 Mechanical 06:00 (78) Ventilator 04/14/19 97.6 04:00 Intake and Output 04/13/19 04/13/19 04/14/19 1515:00 23:00 07:00 IntakeIntake Total 590.876 ml 1198 ml 325 ml OutputOutput Total 15 ml 275 ml BalanceBalance 590.876 ml 1183 ml 50 ml Exam GENERAL: Chronically ill-appearing gentleman on mechanical ventilation orally intubated VITAL SIGNS: per chart NECK: Supple. No JVD or lymphadenopathy. CARDIAC EXAM: S1, S2. No added sounds or murmurs. CHEST: Diminished air entry bilaterally ABDOMEN: Soft, nontender. No guarding or rebound. EXTREMITIES: No cyanosis, clubbing or edema. NEUROLOGIC: Generalized weakness. Unable to assess Vent Setting Ventilator Support Mode: AC Fraction of Inspired Oxygen pe: 60 Positive End Expiratory Pressu: 5.0 Results/Medications Result Diagram: 04/14/19 0420 04/14/19 0420 Results 24 hrs Laboratory Tests Test 04/13/19 09:07 04/13/19 12:38 04/13/19 17:14 04/13/19 21:33 Bedside Glucose 85 100 163 192 Test 04/14/19 00:52 04/14/19 04:20 04/14/19 05:00 04/14/19 05:38 Bedside Glucose 149 140 White Blood Count 6.7 Red Blood Count 2.80 L Hemoglobin 8.3 L Hematocrit 25.1 L Mean Corpuscular 89.6 Volume Mean Corpuscular 29.6 Hemoglobin Mean Corpuscular 33.1 Hemoglobin Concent Red Cell 16.9 H Distribution Width Platelet Count 182 Mean Platelet 10.5 H Volume Immature 1.800 H Granulocytes % Neutrophils % 68.3 Segmented 70 Neutrophils % (Manual) Band Neutrophils % 4 (Manual) Lymphocytes % 17.8 Lymphocytes % 12 L (Manual) Monocytes % 6.1 Monocytes % 10 (Manual) Eosinophils % 5.4 Eosinophils % 4 (Manual) Basophils % 0.6 Nucleated Red 0.0 Blood Cells % Immature 0.120 H Granulocytes # Neutrophils # 4.6 Neutrophils # 4.7 (Manual) Band Neutrophils # 0.2 Lymphocytes 0.8 (Manual) Lymphocytes # 1.2 Monocytes # 0.4 Monocytes # 0.6 (Manual) Eosinophils # 0.4 Basophils # 0.0 Nucleated Red 0.0 Blood Cells # Platelet Estimate NORMAL Polychromasia 2+ Poikilocytosis 1+ Anisocytosis 1+ Macrocytosis 1+ Sodium Level 136 Potassium Level 3.0 L Chloride Level 100 Carbon Dioxide 25 Level Anion Gap 11 Blood Urea 17 Nitrogen Creatinine 5.05 H Est Glomerular 12 L Filtrat Rate mL/min Glucose Level 167 # Calcium Level 9.1 Phosphorus Level 3.5 Magnesium Level 2.0 Blood Gas Specimen Blood arterial Source Arterial Blood 04/14/2019 5:51:00 Date Drawn AM Arterial Blood pH 7.461 H (Temp corrected) Arterial Blood 35.0 pCO2 (Temp correct) Arterial Blood pO2 203.4 H (Temp corrected) Arterial Blood 24.4 HCO3 Arterial Blood 0.8 Base Excess Arterial Blood 99.3 H Oxygen Saturation Santino Test N/A Arterial Blood Gas Right Brachial Puncture Site Arterial 0.3 Blood Carboxyhemog lobin Arterial Blood 0.3 Methemoglobin Blood Gas A-a O2 474.6 H Differential Oxyhemoglobin 98.7 Percent Blood Gas 37.0 Temperature Blood Gas 18.0 Respiration Rate Blood Gas Actual 18 Respiration Rate Blood Gas Modality VENT - AC FiO2 100.0 Blood Gas Tidal 500.0 Volume Blood Gas Low PEEP 5.0 Setting Blood Gas Notified RTR Whom Blood Gas Notified 04/14/2019 6:10:00 Time AM Test 04/14/19 08:22 Bedside Glucose 143 Medications Current Medications IV Flush (NS 3 ml) 3 ml PER PROTOCOL IV ; Start 03/29/19 at 13:30 Ondansetron HCl (Zofran Inj) 4 mg Q6H PRN IV NAUSEA/VOMITING Last administered on 04/07/19at 18:53; Admin Dose 4 MG; Start 03/29/19 at 13:30 Acetaminophen (Tylenol Tab) 650 mg Q6H PRN PO .PAIN 1-3 OR TEMP Last administered on 03/31/19at 05:48; Admin Dose 650 MG; Start 03/29/19 at 13:30 Hydralazine HCl (Apresoline) 10 mg Q4H PRN IV sbp >160 Last administered on 04/10/19at 02:35; Admin Dose 10 MG; Start 03/29/19 at 14:00 Miscellaneous Information 1 ea NOTE XX ; Start 03/29/19 at 14:30 Glucose (Glutose) 15 gm Q15M PRN PO DECREASED GLUCOSE; Start 03/29/19 at 14:30 Glucose (Glutose) 22.5 gm Q15M PRN PO DECREASED GLUCOSE; Start 03/29/19 at 14:30 Dextrose (D50w Syringe) 25 ml Q15M PRN IV DECREASED GLUCOSE Last administered on 04/13/19at 05:56; Admin Dose 25 ML; Start 03/29/19 at 14:30; Status Hold Dextrose (D50w Syringe) 50 ml Q15M PRN IV DECREASED GLUCOSE; Start 03/29/19 at 14:30 Glucagon (Glucagen) 1 mg Q15M PRN IM DECREASED GLUCOSE; Start 03/29/19 at 14:30 Glucose (Glutose) 15 gm Q15M PRN BUCCAL DECREASED GLUCOSE; Start 03/29/19 at 14:30 Albumin Human 100 ml @ 100 mls/hr WITH DIALYSIS PRN IV SBP <90 DURING DIALYSIS Last administered on 04/12/19at 08:58; Admin Dose 100 MLS/HR; Start 03/29/19 at 17:00 Albuterol/ Ipratropium (Duoneb) 3 ml Q2H RESP THERAPY PRN HHN WHEEZING AND RESP DISTRESS Last administered on 04/09/19at 08:52; Admin Dose 3 ML; Start 03/29/19 at 18:00 Lorazepam (Ativan) 0.5 mg Q4H PRN IV AGITATION Last administered on 04/02/19at 03:55; Admin Dose 0.5 MG; Start 03/29/19 at 18:00 IV Flush (NS 10 ml) 10 ml Q8 PRN IV IV PROTOCOL; Start 03/29/19 at 18:00 Labetalol HCl (Labetalol) 10 mg Q4H PRN IV sbp >160; Start 03/30/19 at 09:00 Haloperidol (Haldol) 5 mg Q6H PRN IM agitation Last administered on 03/31/19 00:10; Admin Dose 5 MG; Start 03/30/19 at 10:00 Heparin Sodium (Porcine) (Heparin (1000 Units/ml)) 3,200 unit AFTER DIALYSIS CATHETER Last administered on 04/12/19 12:20; Admin Dose 3,200 UNIT; Start 03/30/19 at 17:00 Atorvastatin Calcium (Lipitor) 40 mg HS NGT Last administered on 04/13/19 21:35; Admin Dose 40 MG; Start 03/31/19 at 21:00 Baclofen (Lioresal) 10 mg BID GTB Last administered on 04/14/19 08:27; Admin Dose 10 MG; Start 03/31/19 at 21:00 Doxazosin Mesylate (Cardura) 2 mg DAILY NGT Last administered on 04/11/19 08:46; Admin Dose 2 MG; Start 03/31/19 at 14:30 Gabapentin (Neurontin) 100 mg QHS PO Last administered on 04/13/19 21:35; Admin Dose 100 MG; Start 03/31/19 at 21:00 Sertraline HCl (Zoloft) 25 mg HS NGT Last administered on 04/13/19 21:35; Admin Dose 25 MG; Start 03/31/19 at 21:00 Acetaminophen (Tylenol Liquid) 650 mg Q4H PRN PEG MILD PAIN(1-3)OR ELEVATED TEMP Last administered on 04/11/19 05:14; Admin Dose 650 MG; Start 03/31/19 at 16:00 Lactobacillus Acidophilus/ Rhamnosus (Culturelle) 1 cap TID GTB Last administered on 04/14/19 08:27; Admin Dose 1 CAP; Start 04/02/19 at 13:00 Epoetin [place]-epbx (Retacrit (Esrd)) 10,000 unit MoWeFr@1700 SC Last administered on 04/12/19 18:40; Admin Dose 10,000 UNIT; Start 04/03/19 at 19:30 Lansoprazole (Prevacid) 30 mg BID@0600,1800 GTB Last administered on 04/14/19 05:42; Admin Dose 30 MG; Start 04/04/19 at 18:00 Multivit/Ca Carb/ B Cmplx/FA/Prenat ([place]arena-Geovanni) 1 tab DAILY GTB Last administered on 04/14/19 08:26; Admin Dose 1 TAB; Start 04/04/19 at 11:30 Aspirin (Aspirin) 81 mg DAILY PO Last administered on 04/11/19 08:46; Admin Dose 81 MG; Start 04/05/19 at 09:00; Status Hold Clopidogrel Bisulfate (plaVIX) 75 mg DAILY GTB Last administered on 04/11/19 08:45; Admin Dose 75 MG; Start 04/07/19 at 09:00; Status Hold Quetiapine Fumarate (Seroquel) 50 mg BID GTB Last administered on 04/14/19 08:26; Admin Dose 50 MG; Start 04/07/19 at 09:00 Propofol 100 ml @ 2.097 mls/ hr Q12H PRN IV AGITATION Last administered on 11:39; Admin Dose 6.291 MLS/HR; Start 04/08/19 at 00:00 Fentanyl 100 ml @ 2.5 mls/hr TITRATE IV Last administered on 04/13/19 22:09; Admin Dose 5 MLS/HR; Start 04/08/19 at 00:00 Midazolam HCl 50 ml @ 1 mls/hr TITRATE PRN IV agitation Last administered on 04/14/19 07:12; Admin Dose 4 MLS/HR; Start 04/08/19 at 00:00 Norepinephrine 250 ml @ 1.875 mls/ hr TITRATE IV Last administered on 04/14/19 04:43; Admin Dose 1.875 MLS/HR; Start 04/08/19 at 00:00 Levetiracetam 100 ml @ 400 mls/hr Q12 IVPB Last administered on 04/14/19 08:26; Admin Dose 400 MLS/HR; Start 04/08/19 at 09:30 Nicardipine HCl 50 mg/Sodium Chloride 500 ml @ 50 mls/hr TITRATE IV ; Start 04/08/19 at 09:30 Mupirocin (Bactroban) 1 applic BID TOP Last administered on 04/14/19 08:27; Admin Dose 1 APPLIC; Start 04/09/19 at 21:00 Budesonide (Pulmicort (Neb)) 0.5 mg BID RESP THERAPY HHN Last administered on 04/13/19 20:15; Admin Dose 0.5 MG; Start 04/12/19 at 09:00 Amikacin Sulfate (Amikacin Iv Per Pharmacy) AMIKACIN PER PHARMACY NOTE XX ; Start 04/12/19 at 10:30 Metronidazole 100 ml @ 100 mls/hr Q8 IVPB Last administered on 04/14/19 05:42; Admin Dose 100 MLS/HR; Start 04/12/19 at 14:00 Carvedilol (Coreg) 12.5 mg BID NGT Last administered on 04/12/19 21:22; Admin Dose 12.5 MG; Start 04/12/19 at 21:00 Amikacin Sulfate 300 mg/Sodium Chloride 101.2 ml @ 101.2 mls/ hr AFTER DIALYSIS IVPB ; Start 04/13/19 at 09:00 Albuterol (Ventolin Hfa) 2 puff Q6H RESP THERAPY INH Last administered on 04/14/19 08:24; Admin Dose 2 PUFF; Start 04/12/19 at 20:00 Ipratropium [place] (Atrovent Hfa) 4 puff Q6H RESP THERAPY INH Last ad ministered on 04/14/19 08:23; Admin Dose 4 PUFF; Start 04/12/19 at 20:00 Dextrose 1,000 ml @ 50 mls/hr Q20H IV Last administered on 04/13/19 09:08; Admin Dose 75 MLS/HR; Start 04/13/19 at 09:00; Status Hold Metoclopramide HCl (Reglan) 5 mg Q6 IV Last administered on 04/14/19 05:42; Admin Dose 5 MG; Start 04/13/19 at 12:00 Insulin Aspart (Novolog Insulin Pen) NOVOLOG *MILD* ALGORI... Q4 SC Last a dministered on 04/14/19 08:29; Admin Dose 1 UNIT; Start 04/13/19 at 09:00 Assessment/Plan Hospital Course (Demo Recall) IMP: 1. Respiratory Failure/Ventilator Dependence 2. Septic Shock 3. Chronic renal insufficiency 4. Anemia likely of chronic disease 5. Encephalopathy toxic metabolic RECS: 1. Ventilator support--patient is unable to be liberated from mechanical ventilation secondary to his encephalopathy. Increased FiO2 requirements not stable for CPAP weaning trial 2. Broad-spectrum antibiotics. 3. HD/UD. 4. Anti-seizure medications. 5. Continue tube feeding as tolerated 6. We will discuss with nephrology may require further hemodialysis. Critical care time 40 minutes. Patient's requesting family conference to be set up by older adult social work specialist. SAMMI MOSES MD, [facility] Apr 14, 2019 08:58
--- NOTE | 2019-04-14 09:51 | PN ---
Date/Time of Note Date/Time of Note DATE: 04/14/19 TIME: 09:50 Objective Vitals Vital Signs Date Temp Pulse Resp B/P (MAP) Pulse Ox O2 O2 Flow FiO2 Time Delivery Rate 04/14/19 67 20 122/61 98 09:30 (81) 04/14/19 Mechanical 09:00 Ventilator 04/14/19 97.7 08:00 04/14/19 60 08:00 Intake and Output 04/13/19 04/13/19 04/14/19 1515:00 23:00 07:00 IntakeIntake Total 590.876 ml 1198 ml 344 ml OutputOutput Total 15 ml 275 ml BalanceBalance 590.876 ml 1183 ml 69 ml Results Result Diagram: 04/14/19 0420 04/14/19 042 Medications Medications Current Medications IV Flush (NS 3 ml) 3 ml PER PROTOCOL IV ; Start 03/29/19 at 13:30 Ondansetron HCl (Zofran Inj) 4 mg Q6H PRN IV NAUSEA/VOMITING Last administered on 04/07/19at 18:53; Admin Dose 4 MG; Start 03/29/19 at 13:30 Acetaminophen (Tylenol Tab) 650 mg Q6H PRN PO .PAIN 1-3 OR TEMP Last administered on 03/31/19at 05:48; Admin Dose 650 MG; Start 03/29/19 at 13:30 Hydralazine HCl (Apresoline) 10 mg Q4H PRN IV sbp >160 Last administered on 04/10/19at 02:35; Admin Dose 10 MG; Start 03/29/19 at 14:00 Miscellaneous Information 1 ea NOTE XX ; Start 03/29/19 at 14:30 Glucose (Glutose) 15 gm Q15M PRN PO DECREASED GLUCOSE; Start 03/29/19 at 14:30 Glucose (Glutose) 22.5 gm Q15M PRN PO DECREASED GLUCOSE; Start 03/29/19 at 14:30 Dextrose (D50w Syringe) 25 ml Q15M PRN IV DECREASED GLUCOSE Last administered on 04/13/19at 05:56; Admin Dose 25 ML; Start 03/29/19 at 14:30; Status Hold Dextrose (D50w Syringe) 50 ml Q15M PRN IV DECREASED GLUCOSE; Start 03/29/19 at 14:30 Glucagon (Glucagen) 1 mg Q15M PRN IM DECREASED GLUCOSE; Start 03/29/19 at 14:30 Glucose (Glutose) 15 gm Q15M PRN BUCCAL DECREASED GLUCOSE; Start 03/29/19 at 14:30 Albumin Human 100 ml @ 100 mls/hr WITH DIALYSIS PRN IV SBP <90 DURING DIALYSIS Last administered on 04/12/19 08:58; Admin Dose 100 MLS/HR; Start 03/29/19 at 17:00 Albuterol/ Ipratropium (Duoneb) 3 ml Q2H RESP THERAPY PRN HHN WHEEZING AND RESP DISTRESS Last administered on 04/09/19 08:52; Admin Dose 3 ML; Start 03/29/19 at 18:00 Lorazepam (Ativan) 0.5 mg Q4H PRN IV AGITATION Last administered on 04/02/19 03:55; Admin Dose 0.5 MG; Start 03/29/19 at 18:00 IV Flush (NS 10 ml) 10 ml Q8 PRN IV IV PROTOCOL; Start 03/29/19 at 18:00 Labetalol HCl (Labetalol) 10 mg Q4H PRN IV sbp >160; Start 03/30/19 at 09:00 Haloperidol (Haldol) 5 mg Q6H PRN IM agitation Last administered on 03/31/19 00:10; Admin Dose 5 MG; Start 03/30/19 at 10:00 Heparin Sodium (Porcine) (Heparin (1000 Units/ml)) 3,200 unit AFTER DIALYSIS CATHETER Last administered on 04/12/19 12:20; Admin Dose 3,200 UNIT; Start 03/30/19 at 17:00 Atorvastatin Calcium (Lipitor) 40 mg HS NGT Last administered on 04/13/19 21:35; Admin Dose 40 MG; Start 03/31/19 at 21:00 Baclofen (Lioresal) 10 mg BID GTB Last administered on 04/14/19 08:27; Admin D ose 10 MG; Start 03/31/19 at 21:00 Doxazosin Mesylate (Cardura) 2 mg DAILY NGT Last administered on 04/11/19 08:46; Admin Dose 2 MG; Start 03/31/19 at 14:30 Gabapentin (Neurontin) 100 mg QHS PO Last administered on 04/13/19 21:35; Admin Dose 100 MG; Start 03/31/19 at 21:00 Sertraline HCl (Zoloft) 25 mg HS NGT Last administered on 04/13/19 21:35; Admin Dose 25 MG; Start 03/31/19 at 21:00 Acetaminophen (Tylenol Liquid) 650 mg Q4H PRN PEG MILD PAIN(1-3)OR ELEVATED TEMP Last administered on 04/11/19 05:14; Admin Dose 650 MG; Start 03/31/19 at 16:00 Lactobacillus Acidophilus/ Rhamnosus (Culturelle) 1 cap TID GTB Last administered on 04/14/19 08:27; Admin Dose 1 CAP; Start 04/02/19 at 13:00 Epoetin [place]-epbx (Retacrit (Esrd)) 10,000 unit MoWeFr@1700 SC Last administered on 04/12/19 18:40; Admin Dose 10,000 UNIT; Start 04/03/19 at 19:30 Lansoprazole (Prevacid) 30 mg BID@0600,1800 GTB Last administered on 04/14/19 05:42; Admin Dose 30 MG; Start 04/04/19 at 18:00 Multivit/Ca Carb/ B Cmplx/FA/Prenat (Karena-Geovanni) 1 tab DAILY GTB Last administered on 04/14/19 08:26; Admin Dose 1 TAB; Start 04/04/19 at 11:30 Aspirin (Aspirin) 81 mg DAILY PO Last administered on 04/11/19 08:46; Admin Dos e 81 MG; Start 04/05/19 at 09:00; Status Hold Clopidogrel Bisulfate (plaVIX) 75 mg DAILY GTB Last administered on 04/11/19 08:45; Admin Dose 75 MG; Start 04/07/19 at 09:00; Status Hold Quetiapine Fumarate (Seroquel) 50 mg BID GTB Last administered on 04/14/19 08:26; Admin Dose 50 MG; Start 04/07/19 at 09:00 Propofol 100 ml @ 2.097 mls/ hr Q12H PRN IV AGITATION Last administered on 04/08/19 11:39; Admin Dose 6.291 MLS/HR; Start 04/08/19 at 00:00 Fentanyl 100 ml @ 2.5 mls/hr TITRATE IV Last administered on 04/13/19 22:09; Admin Dose 5 MLS/HR; Start 04/08/19 at 00:00 Midazolam HCl 50 ml @ 1 mls/hr TITRATE PRN IV agitation Last administered on 04/14/19 07:12; Admin Dose 4 MLS/HR; Start 04/08/19 at 00:00 Norepinephrine 250 ml @ 1.875 mls/ hr TITRATE IV Last administered on 04/14/19 04:43; Admin Dose 1.875 MLS/HR; Start 04/08/19 at 00:00 Levetiracetam 100 ml @ 400 mls/hr Q12 IVPB Last administered on 04/14/19 08:26; Admin Dose 400 MLS/HR; Start 04/08/19 at 09:30 Nicardipine HCl 50 mg/Sodium Chloride 500 ml @ 50 mls/hr TITRATE IV ; Start 04/08/19 at 09:30 Mupirocin (Bactroban) 1 applic BID TOP Last administered on 04/14/19 08:27; Admin Dose 1 APPLIC; Start 04/09/19 at 21:00 Budesonide (Pulmicort (Neb)) 0.5 mg BID RESP THERAPY HHN Last administered on 04/13/19 20:15; Admin Dose 0.5 MG; Start 04/12/19 at 09:00 Amikacin Sulfate (Amikacin Iv Per Pharmacy) AMIKACIN PER PHARMACY NOTE XX ; Start 04/12/19 at 10:30 Metronidazole 100 ml @ 100 mls/hr Q8 IVPB Last administered on 04/14/19 05:42; Admin Dose 100 MLS/HR; Start 04/12/19 at 14:00 Carvedilol (Coreg) 12.5 mg BID NGT Last administered on 04/12/19 21:22; Admin Dose 12.5 MG; Start 04/12/19 at 21:00 Amikacin Sulfate 300 mg/Sodium Chloride 101.2 ml @ 101.2 mls/ hr AFTER DIALYSIS IVPB ; Start 04/13/19 at 09:00 Albuterol (Ventolin Hfa) 2 puff Q6H RESP THERAPY INH Last administered on 04/14/19 08:24; Admin Dose 2 PUFF; Start 04/12/19 at 20:00 Ipratropium [place] (Atrovent Hfa) 4 puff Q6H RESP THERAPY INH Last administer ed on 04/14/19at 08:23; Admin Dose 4 PUFF; Start 04/12/19 at 20:00 Dextrose 1,000 ml @ 50 mls/hr Q20H IV Last administered on 04/13/19at 09:08; Admin Dose 75 MLS/HR; Start 04/13/19 at 09:00; Status Hold Metoclopramide HCl (Reglan) 5 mg Q6 IV Last administered on 04/14/19at 05:42; Admin Dose 5 MG; Start 04/13/19 at 12:00 Insulin Aspart (Novolog Insulin Pen) NOVOLOG *MILD* ALGORI... Q4 SC Last administered on 04/14/19at 08:29; Admin Dose 1 UNIT; Start 04/13/19 at 09:00 Potassium Chloride 100 ml @ 50 mls/hr Q2H IVPB ; Start 04/14/19 at 09:30; Stop 04/14/19 at 13:29 VTE Prophylaxis Risk score (from Ns)>0 risk: 7 SCD applied (from Ns): Yes Lines/Catheters IV Catheter Type: Win[place] in Place: No Assessment/Plan Hospital Course Subjective Patient is still intubated but off pressors, attempting cpap trial Objective Physical exam General: Patient is laying in bed intubated and sedated Mentation: Patient is not alert, Head: Normocephalic atraumatic Eyes: EOMI, pupils reactive to light Neck: Supple, nontender, midline Respiratory: Clear to auscultation bilaterally Cardiovascular: regular rate, no obvious murmurs Gastrointestinal: non-tender to palpation, bowel sounds heard. Neurological: Unable to assess however has minimal to no response to noxious stimuli on the left side Skin: No new skin lesions Assessment/Plan Acute hypoxic respiratory failure -Status post intubation, extubate when able -initial CT abdomen pelvis showing possible pneumonia which would make sense in this encephalopathic patient in the hospital -abx per ID -Treatment per pulmonology Septic shock, intermittent -Secondary to likely pneumonia -Infectious disease consulted -Cultures taken, CT showing possibly distended bladder wall for cystitis however UTI is not necessarily revealing for infection -IV antibiotic Likely aspiration pneumonia -Would explain mild fever before as well as symptoms and 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 Continue Seroquel as needed - Neurology on board and appreciate recommendations. CT unrevealing -Possible new CVA as patient has recent history of multiple CVAs, however patient is not able to tolerate MRI at this time due to agitation -Use as needed medications. Hypertensive emergency-resolved for now - BP better controlled, hypotensive at the moment anemia- -No concrete source of bleeding, GI recommendations appreciated, transfuse as needed will hold patient's aspirin and Plavix for now. - EGD revealed moderate distal esophagitis and gastritis and duodenitis. Colonoscopy showed internal hemorrhoids - GI consultation appreciated. Will need repeat colonoscopy in 6 months - continue PPI Leukocytosis-resolved -Possibly secondary to pneumonia, infectious disease on board, continue IV antibiotics Dysphasia -PEG tube ok for use per GI End-stage renal disease on hemodialysis - Nephrology on board and appreciate consultation. Continue HD Coronary artery disease status post CABG history - continue home medications - continue aspirin and Plavix when able Epilepsy - Continue Keppra History of CVA with residual left-sided deficit and more recent CVA 1 month ago - Patient reportedly had a new stroke approximately 1 month ago at [facility] which is the cause of patient's current encephalopathic state - After speaking with daughter, appears this is patient's baseline after leaving [facility] proximally 1 week ago. Patient suffered CVA and subsequent long stay in the ICU which required intubation and PEG tube. Patient almost required tracheostomy however appear to have been able to be weaned off the ventilator. - Neurology consultation appreciated BPH Disposition -Patient intubated in the ICU, likely secondary to septic shock secondary to pneumonia, infectious disease has been consulted, keep in ICU monitor closely -Patient may be difficult to extubate given history of poor extubation -Held family meeting with multiple family members on April 12, 2019, plan currently is full code and to proceed with tracheostomy if needed. More than 40 minutes of critical care time has been spent on this encounter STEWART WINTER Apr 14, 2019 09:51
[2019-04-14] MEDS: POTASSIUM CHLORIDE 100 ML IVPB SCH ×2 (09:53→11:30)
[2019-04-14] MEDS: BUDESONIDE (NEB) 0.5MG/2ML AMP HHN SCH ×2 (10:08→20:48)
--- NOTE | 2019-04-14 11:08 | CONS ---
Assessment/Plan Assessment/Plan Assessment/Plan (Daily) 1. Acute hypoxemic respiratory failure intubated on ventilator 2. Accelerated HTN 3. ESRD on HD - MWF schedule at [facility] HD ouray 4. H/o CAD s/p CABG before 5. H/o CAD with previous recent stent placement in 09/2018 6. h/o HTN 7. H/o DM II 8. h/o HL 9. 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 H/o BPH -EGD 04/03/2019 Moderate distal esophagitis. Gastrostomy tube in place. Gastritis rule out H. pylori infection. Biopsies obtained. Duodenitis. Colonoscopy 04/03/2019 8 sessile polyp in the cecum. Snared and retrieved. 6 mm sessile polyp ascending colon. Snared and retrieved. 6 mm sessile polyp sigmoid. Snared and retrieved. 20 mm sessile polyp sigmoid. Saline assisted lipectomy plus localization tattoo. Moderate-sized internal hemorrhoids Plan: HD ordered for Monday will continue pt on MWF schedule while being in hospital- Ventilator management as per pulmonary - BP controlled with Losartan 100mg po daily Coreg 25 BID, Hydralazine 75 mg pO TID for better BP control Epogen 20433 units SQ MWF will follow up Consultation Date/Type/Reason Admit Date/Time Mar 29, 2019 at 13:16 Initial Consult Date 03/29/19 Type of Consult NEPHROLOGY Requesting Provider: LILLIAN ZHANG MD Date/Time of Note DATE: 04/14/19 TIME: 11:08 Exam/Review of Systems Exam Vitals Vital Signs Date Temp Pulse Resp B/P (MAP) Pulse Ox O2 O2 Flow FiO2 Time Delivery Rate 04/14/19 72 19 89/53 (65) 89 10:30 04/14/19 Mechanical 10:00 Ventilator 04/14/19 70 10:00 04/14/19 97.7 08:00 Intake and Output 04/13/19 04/13/19 04/14/19 1515:00 23:00 07:00 IntakeIntake Total 590.876 ml 1198 ml 344 ml OutputOutput Total 15 ml 275 ml BalanceBalance 590.876 ml 1183 ml 69 ml Results Result Diagram: 04/14/19 0420 04/14/19 0420 Results 24hrs Laboratory Tests Test 04/13/19 12:38 04/13/19 17:14 04/13/19 21:33 04/14/19 00:52 Bedside Glucose 100 163 192 149 Test 04/14/19 04:20 04/14/19 05:00 04/14/19 05:38 04/14/19 08:22 White Blood Count 6.7 Red Blood Count 2.80 L Hemoglobin 8.3 L Hematocrit 25.1 L Mean Corpuscular 89.6 Volume Mean Corpuscular 29.6 Hemoglobin Mean Corpuscular 33.1 Hemoglobin Concent Red Cell 16.9 H Distribution Width Platelet Count 182 Mean Platelet 10.5 H Volume Immature 1.800 H Granulocytes % Neutrophils % 68.3 Segmented 70 Neutrophils % (Manual) Band Neutrophils % 4 (Manual) Lymphocytes % 17.8 Lymphocytes % 12 L (Manual) Monocytes % 6.1 Monocytes % 10 (Manual) Eosinophils % 5.4 Eosinophils % 4 (Manual) Basophils % 0.6 Nucleated Red 0.0 Blood Cells % Immature 0.120 H Granulocytes # Neutrophils # 4.6 Neutrophils # 4.7 (Manual) Band Neutrophils # 0.2 Lymphocytes 0.8 (Manual) Lymphocytes # 1.2 Monocytes # 0.4 Monocytes # 0.6 (Manual) Eosinophils # 0.4 Basophils # 0.0 Nucleated Red 0.0 Blood Cells # Platelet Estimate NORMAL Polychromasia 2+ Poikilocytosis 1+ Anisocytosis 1+ Macrocytosis 1+ Sodium Level 136 Potassium Level 3.0 L Chloride Level 100 Carbon Dioxide 25 Level Anion Gap 11 Blood Urea 17 Nitrogen Creatinine 5.05 H Est Glomerular 12 L Filtrat Rate mL/min Glucose Level 167 # Calcium Level 9.1 Phosphorus Level 3.5 Magnesium Level 2.0 Blood Gas Specimen Blood arterial Source Arterial Blood 04/14/2019 5:51:00 Date Drawn AM Arterial Blood pH 7.461 H (Temp corrected) Arterial Blood 35.0 pCO2 (Temp correct) Arterial Blood pO2 203.4 H (Temp corrected) Arterial Blood 24.4 HCO3 Arterial Blood 0.8 Base Excess Arterial Blood 99.3 H Oxygen Saturation Santino Test N/A Arterial Blood Gas Right Brachial Puncture Site Arterial 0.3 Blood Carboxyhemog lobin Arterial Blood 0.3 Methemoglobin Blood Gas A-a O2 474.6 H Differential Oxyhemoglobin 98.7 Percent Blood Gas 37.0 Temperature Blood Gas 18.0 Respiration Rate Blood Gas Actual 18 Respiration Rate Blood Gas Modality VENT - AC FiO2 100.0 Blood Gas Tidal 500.0 Volume Blood Gas Low PEEP 5.0 Setting Blood Gas Notified RTR Whom Blood Gas Notified 04/14/2019 6:10:00 Time AM Bedside Glucose 140 143 Medications Medication Current Medications IV Flush (NS 3 ml) 3 ml PER PROTOCOL IV ; Start 03/29/19 at 13:30 Ondansetron HCl (Zofran Inj) 4 mg Q6H PRN IV NAUSEA/VOMITING Last administered on 04/07/19at 18:53; Admin Dose 4 MG; Start 03/29/19 at 13:30 Acetaminophen (Tylenol Tab) 650 mg Q6H PRN PO .PAIN 1-3 OR TEMP Last administered on 03/31/19at 05:48; Admin Dose 650 MG; Start 03/29/19 at 13:30 Hydralazine HCl (Apresoline) 10 mg Q4H PRN IV sbp >160 Last administered on 04/10/19at 02:35; Admin Dose 10 MG; Start 03/29/19 at 14:00 Miscellaneous Information 1 ea NOTE XX ; Start 03/29/19 at 14:30 Glucose (Glutose) 15 gm Q15M PRN PO DECREASED GLUCOSE; Start 03/29/19 at 14:30 Glucose (Glutose) 22.5 gm Q15M PRN PO DECREASED GLUCOSE; Start 03/29/19 at 14:30 Dextrose (D50w Syringe) 25 ml Q15M PRN IV DECREASED GLUCOSE Last administered on 04/13/19at 05:56; Admin Dose 25 ML; Start 03/29/19 at 14:30; Status Hold Dextrose (D50w Syringe) 50 ml Q15M PRN IV DECREASED GLUCOSE; Start 03/29/19 at 14:30 Glucagon (Glucagen) 1 mg Q15M PRN IM DECREASED GLUCOSE; Start 03/29/19 at 14:30 Glucose (Glutose) 15 gm Q15M PRN BUCCAL DECREASED GLUCOSE; Start 03/29/19 at 14:30 Albumin Human 100 ml @ 100 mls/hr WITH DIALYSIS PRN IV SBP <90 DURING DIALYSIS Last administered on 04/12/19 08:58; Admin Dose 100 MLS/HR; Start 03/29/19 at 17:00 Albuterol/ Ipratropium (Duoneb) 3 ml Q2H RESP THERAPY PRN HHN WHEEZING AND RESP DISTRESS Last administered on 04/09/19 08:52; Admin Dose 3 ML; Start 03/29/19 at 18:00 Lorazepam (Ativan) 0.5 mg Q4H PRN IV AGITATION Last administered on 04/02/19 03:55; Admin Dose 0.5 MG; Start 03/29/19 at 18:00 IV Flush (NS 10 ml) 10 ml Q8 PRN IV IV PROTOCOL; Start 03/29/19 at 18:00 Labetalol HCl (Labetalol) 10 mg Q4H PRN IV sbp >160; Start 03/30/19 at 09:00 Haloperidol (Haldol) 5 mg Q6H PRN IM agitation Last administered on 03/31/19 00:10; Admin Dose 5 MG; Start 03/30/19 at 10:00 Heparin Sodium (Porcine) (Heparin (1000 Units/ml)) 3,200 unit AFTER DIALYSIS CATHETER Last administered on 04/12/19 12:20; Admin Dose 3,200 UNIT; Start 03/30/19 at 17:00 Atorvastatin Calcium (Lipitor) 40 mg HS NGT Last administered on 04/13/19 21:35; Admin Dose 40 MG; Start 03/31/19 at 21:00 Baclofen (Lioresal) 10 mg BID GTB Last administered on 04/14/19 08:27; Admin Dose 10 MG; Start 03/31/19 at 21:00 Doxazosin Mesylate (Cardura) 2 mg DAILY NGT Last administered on 04/11/19 08:46; Admin Dose 2 MG; Start 03/31/19 at 14:30 Gabapentin (Neurontin) 100 mg QHS PO Last administered on 04/13/19 21:35; Admin Dose 100 MG; Start 03/31/19 at 21:00 Sertraline HCl (Zoloft) 25 mg HS NGT Last administered on 04/13/19 21:35; Admin Dose 25 MG; Start 03/31/19 at 21:00 Acetaminophen (Tylenol Liquid) 650 mg Q4H PRN PEG MILD PAIN(1-3)OR ELEVATED T EMP Last administered on 04/11/19 05:14; Admin Dose 650 MG; Start 03/31/19 at 16:00 Lactobacillus Acidophilus/ Rhamnosus (Culturelle) 1 cap TID GTB Last administered on 04/14/19 08:27; Admin Dose 1 CAP; Start 04/02/19 at 13:00 Epoetin [place]-epbx (Retacrit (Esrd)) 10,000 unit MoWeFr@1700 SC Last adm inistered on 04/12/19 18:40; Admin Dose 10,000 UNIT; Start 04/03/19 at 19:30 Lansoprazole (Prevacid) 30 mg BID@0600,1800 GTB Last administered on 04/14/19 05:42; Admin Dose 30 MG; Start 04/04/19 at 18:00 Multivit/Ca Carb/ B Cmplx/FA/Prenat (Karena-Geovanni) 1 tab DAILY GTB Last administered on 04/14/19 08:26; Admin Dose 1 TAB; Start 04/04/19 at 11:30 Aspirin (Aspirin) 81 mg DAILY PO Last administered on 04/11/19 08:46; Admin Dose 81 MG; Start 04/05/19 at 09:00; Status Hold Clopidogrel Bisulfate (plaVIX) 75 mg DAILY GTB Last administered on 04/11/19 08:45; Admin Dose 75 MG; Start 04/07/19 at 09:00; Status Hold Quetiapine Fumarate (Seroquel) 50 mg BID GTB Last administered on 04/14/19 08:26; Admin Dose 50 MG; Start 04/07/19 at 09:00 Propofol 100 ml @ 2.097 mls/ hr Q12H PRN IV AGITATION Last administered on 04/08/19 11:39; Admin Dose 6.291 MLS/HR; Start 04/08/19 at 00:00 Fentanyl 100 ml @ 2.5 mls/hr TITRATE IV Last administered on 04/13/19 22:09; Admin Dose 5 MLS/HR; Start 04/08/19 at 00:00 Midazolam HCl 50 ml @ 1 mls/hr TITRATE PRN IV agitation Last administered on 04/14/19 07:12; Admin Dose 4 MLS/HR; Start 04/08/19 at 00:00 Norepinephrine 250 ml @ 1.875 mls/ hr TITRATE IV Last administered on 04/14/19 04:43; Admin Dose 1.875 MLS/HR; Start 04/08/19 at 00:00 Levetiracetam 100 ml @ 400 mls/hr Q12 IVPB Last administered on 04/14/19 08:26; Admin Dose 400 MLS/HR; Start 04/08/19 at 09:30 Nicardipine HCl 50 mg/Sodium Chloride 500 ml @ 50 mls/hr TITRATE IV ; Start 04/08/19 at 09:30 Mupirocin (Bactroban) 1 applic BID TOP Last administered on 04/14/19 08:27; Admin Dose 1 APPLIC; Start 04/09/19 at 21:00 Budesonide (Pulmicort (Neb)) 0.5 mg BID RESP THERAPY HHN Last administered on 04/14/19 10:08; Admin Dose 0.5 MG; Start 04/12/19 at 09:00 Amikacin Sulfate (Amikacin Iv Per Pharmacy) AMIKACIN PER PHARMACY NOTE XX ; Start 04/12/19 at 10:30 Metronidazole 100 ml @ 100 mls/hr Q8 IVPB Last administered on 04/14/19 05:42; Admin Dose 100 MLS/HR; Start 04/12/19 at 14:00 Carvedilol (Coreg) 12.5 mg BID NGT Last administered on 04/12/19 21:22; Admin Dose 12.5 MG; Start 04/12/19 at 21:00 Amikacin Sulfate 300 mg/Sodium Chloride 101.2 ml @ 101.2 mls/ hr AFTER DIALYSIS IVPB ; Start 04/13/19 at 09:00 Albuterol (Ventolin Hfa) 2 puff Q6H RESP THERAPY INH Last administered on 04/14/19 08:24; Admin Dose 2 PUFF; Start 04/12/19 at 20:00 Ipratropium [place] (Atrovent Hfa) 4 puff Q6H RESP THERAPY INH Last administered on 04/14/19 08:23; Admin Dose 4 PUFF; Start 04/12/19 at 20:00 Dextrose 1,000 ml @ 50 mls/hr Q20H IV Last administered on 04/13/19 09:08; Admin Dose 75 MLS/HR; Start 04/13/19 at 09:00; Status Hold Metoclopramide HCl (Reglan) 5 mg Q6 IV Last administered on 04/14/19at 05:42; Admin Dose 5 MG; Start 04/13/19 at 12:00 Insulin Aspart (Novolog Insulin Pen) NOVOLOG *MILD* ALGORI... Q4 SC Last administered on 04/14/19at 08:29; Admin Dose 1 UNIT; Start 04/13/19 at 09:00 Potassium Chloride 100 ml @ 50 mls/hr Q2H IVPB Last administered on 04/14/19at 09:53; Admin Dose 50 MLS/HR; Start 04/14/19 at 09:30; Stop 04/14/19 at 13:29 BETZAIDA YAÑEZ MD Apr 14, 2019 11:08
--- NOTE | 2019-04-14 11:19 | CONS ---
Assessment/Plan Assessment/Plan Hospital Course (Demo Recall) ID PROGRESS NOTE CURRENT ABX: DAY # 16 =>Amikacin #3 + Flagyl #3 S/P Vanco IV + Zosyn 04/14/19 0420 04/14/19 0420 24H INTERVAL SUMMARY * SEDATED, REMAINS ON PRESSORS -- CLINICALLY NOT MUCH CHANGE * NO FEVERS, WBC NORMALIZED * Non-communicative, orally intubated on mechanical ventilation * Indwelling's: Endotracheal tube right chest PermCath, PEG, Winters, PICC line DIAGNOSTIC IMAGING * 04/12/19 CXR: IMPRESSION:1. Interval decreased pulmonary edema. 2. Persistent dense opacification of the left base by combination of consolidation and small pleural effusion. 3. Unchanged small right pleural effusion. 4. Stable position of support devices. * 04/11/19 CXR: IMPRESSION:Calcified atherosclerosis in the aorta. Stable left lower lung infiltrates with small left pleural effusion.Mild interval increase in patchy infiltrates throughout the right lung. Hypoinflated lungs with an elevated right hemidiaphragm. PROCEDURES * -EGD 04/03/2019 Moderate distal esophagitis. Gastrostomy tube in place. Gastritis -biopsies are negative for H. pylori. Duodenitis. * Colonoscopy 04/03/2019 8 sessile polyp in the cecum. Snared and retrieved. -Tubular adenoma 6 mm sessile polyp ascending colon. Snared and retrieved. -Tubular adenoma 6 mm sessile polyp sigmoid. Snared and retrieved. -Tubular adenoma 20 mm sessile polyp sigmoid. Saline assisted lipectomy plus localization tattoo. Moderate-sized internal hemorrhoids. MICRO * BCx(-) * 04/07/19 BCx (-) * 04/08/19 Sputum (+) GNR x2 RESPIRATORY CULTURE Final Organism 1 K PNEUMO ESBL QUANTITY 2+ . MULTI DRUG RESISTANT ORGANISM Organism 2 SERRATIA MARCESCENS QUANTITY 2+ KLEB PNEUM KLEB PNEUM S MARCESCE M.I.C. RX M.I.C. RX M.I.C. RX --------- --- --------- --- --------- --- AMIKACIN <=2 S CEFAZOLIN R CEFEPIME 2 S CEFOTAXIME R S CIPROFLOXACIN 2 I <=0.25 S GENTAMICIN >=16 R <=1 S LEVOFLOXACIN 1 S <=0.12 S MEROPENEM 0.032 S TOBRAMYCIN >=16 R <=1 S TRIMETHOPRIM/SULFAMETHOXAZOLE >=320 R <=20 S PIPERACILLIN/TAZOBACTAM 16 S PHYSICAL EXAMINATION: GENERAL: VSS, NAD HEENT: AT, NC, NECK: Supple, CHEST: Rise symmetrical HEART: Pulse RRR ABDOMEN: Benign EXTREMITIES: Warm, dry SKIN: No rash, no diaphoresis ID ASSESSMENT 58 yo M admit with: 1. Sepsis 2. Acute respiratory failure possibly aspirated 3. Aspiration GNR HCAP 4. Encephalopathy, possible acute on chronic CVA 5. End-stage renal disease, hemodialysis dependent 6. Dysphagia-> PEG 7. Liquid diarrhea on current ABX 8. Anemia -> GI work-up Moderate Distal Esophagitis/Gastritis/Internal Hemorrhoids (+)MRSA Nares ->Bactroban ABX ALLERGIES: KNDA INVASIVES: PIV CURRENT ABX: DAY # 16 =>Amikacin #3 + Flagyl #3 S/P Vanco IV + Zosyn ID RECOMMENDATIONS/PLAN: 1. ABX changed 04/12/19 per copious liquid diarrhea on Vanco/Zosyn . Consultation Date/Type/Reason Admit Date/Time Mar 29, 2019 at 13:16 Initial Consult Date 04/07/19 Requesting Provider: LILLIAN ZHANG MD Date/Time of Note DATE: 04/14/19 TIME: 11:17 Exam/Review of Systems Exam Vitals Vital Signs Date Temp Pulse Resp B/P (MAP) Pulse Ox O2 O2 Flow FiO2 Time Delivery Rate 04/14/19 72 19 89/53 (65) 89 10:30 04/14/19 Mechanical 10:00 Ventilator 04/14/19 70 10:00 04/14/19 97.7 08:00 Intake and Output 04/13/19 04/13/19 04/14/19 1515:00 23:00 07:00 IntakeIntake Total 590.876 ml 1198 ml 344 ml OutputOutput Total 15 ml 275 ml BalanceBalance 590.876 ml 1183 ml 69 ml Results Result Diagram: 04/14/19 0420 04/14/19 0420 Results 24hrs Laboratory Tests Test 04/13/19 12:38 04/13/19 17:14 04/13/19 21:33 04/14/19 00:52 Bedside Glucose 100 163 192 149 Test 04/14/19 04:20 04/14/19 05:00 04/14/19 05:38 04/14/19 08:22 White Blood Count 6.7 Red Blood Count 2.80 L Hemoglobin 8.3 L Hematocrit 25.1 L Mean Corpuscular 89.6 Volume Mean Corpuscular 29.6 Hemoglobin Mean Corpuscular 33.1 Hemoglobin Concent Red Cell 16.9 H Distribution Width Platelet Count 182 Mean Platelet 10.5 H Volume Immature 1.800 H Granulocytes % Neutrophils % 68.3 Segmented 70 Neutrophils % (Manual) Band Neutrophils % 4 (Manual) Lymphocytes % 17.8 Lymphocytes % 12 L (Manual) Monocytes % 6.1 Monocytes % 10 (Manual) Eosinophils % 5.4 Eosinophils % 4 (Manual) Basophils % 0.6 Nucleated Red 0.0 Blood Cells % Immature 0.120 H Granulocytes # Neutrophils # 4.6 Neutrophils # 4.7 (Manual) Band Neutrophils # 0.2 Lymphocytes 0.8 (Manual) Lymphocytes # 1.2 Monocytes # 0.4 Monocytes # 0.6 (Manual) Eosinophils # 0.4 Basophils # 0.0 Nucleated Red 0.0 Blood Cells # Platelet Estimate NORMAL Polychromasia 2+ Poikilocytosis 1+ Anisocytosis 1+ Macrocytosis 1+ Sodium Level 136 Potassium Level 3.0 L Chloride Level 100 Carbon Dioxide 25 Level Anion Gap 11 Blood Urea 17 Nitrogen Creatinine 5.05 H Est Glomerular 12 L Filtrat Rate mL/min Glucose Level 167 # Calcium Level 9.1 Phosphorus Level 3.5 Magnesium Level 2.0 Blood Gas Specimen Blood arterial Source Arterial Blood 04/14/2019 5:51:00 Date Drawn AM Arterial Blood pH 7.461 H (Temp corrected) Arterial Blood 35.0 pCO2 (Temp correct) Arterial Blood pO2 203.4 H (Temp corrected) Arterial Blood 24.4 HCO3 Arterial Blood 0.8 Base Excess Arterial Blood 99.3 H Oxygen Saturation Santino Test N/A Arterial Blood Gas Right Brachial Puncture Site Arterial 0.3 Blood Carboxyhemog lobin Arterial Blood 0.3 Methemoglobin Blood Gas A-a O2 474.6 H Differential Oxyhemoglobin 98.7 Percent Blood Gas 37.0 Temperature Blood Gas 18.0 Respiration Rate Blood Gas Actual 18 Respiration Rate Blood Gas Modality VENT - AC FiO2 100.0 Blood Gas Tidal 500.0 Volume Blood Gas Low PEEP 5.0 Setting Blood Gas Notified RTR Whom Blood Gas Notified 04/14/2019 6:10:00 Time AM Bedside Glucose 140 143 Medications Medication Current Medications IV Flush (NS 3 ml) 3 ml PER PROTOCOL IV ; Start 03/29/19 at 13:30 Ondansetron HCl (Zofran Inj) 4 mg Q6H PRN IV NAUSEA/VOMITING Last administered on 04/07/19at 18:53; Admin Dose 4 MG; Start 03/29/19 at 13:30 Acetaminophen (Tylenol Tab) 650 mg Q6H PRN PO .PAIN 1-3 OR TEMP Last administered on 03/31/19at 05:48; Admin Dose 650 MG; Start 03/29/19 at 13:30 Hydralazine HCl (Apresoline) 10 mg Q4H PRN IV sbp >160 Last administered on 04/10/19at 02:35; Admin Dose 10 MG; Start 03/29/19 at 14:00 Miscellaneous Information 1 ea NOTE XX ; Start 03/29/19 at 14:30 Glucose (Glutose) 15 gm Q15M PRN PO DECREASED GLUCOSE; Start 03/29/19 at 14:30 Glucose (Glutose) 22.5 gm Q15M PRN PO DECREASED GLUCOSE; Start 03/29/19 at 14:30 Dextrose (D50w Syringe) 25 ml Q15M PRN IV DECREASED GLUCOSE Last administered on 04/13/19at 05:56; Admin Dose 25 ML; Start 03/29/19 at 14:30; Status Hold Dextrose (D50w Syringe) 50 ml Q15M PRN IV DECREASED GLUCOSE; Start 03/29/19 at 14:30 Glucagon (Glucagen) 1 mg Q15M PRN IM DECREASED GLUCOSE; Start 03/29/19 at 14:30 Glucose (Glutose) 15 gm Q15M PRN BUCCAL DECREASED GLUCOSE; Start 03/29/19 at 14:30 Albumin Human 100 ml @ 100 mls/hr WITH DIALYSIS PRN IV SBP <90 DURING DIALYSIS Last administered on 04/12/19 08:58; Admin Dose 100 MLS/HR; Start 03/29/19 at 17:00 Albuterol/ Ipratropium (Duoneb) 3 ml Q2H RESP THERAPY PRN HHN WHEEZING AND RESP DISTRESS Last administered on 04/09/19 08:52; Admin Dose 3 ML; Start 03/29/19 at 18:00 Lorazepam (Ativan) 0.5 mg Q4H PRN IV AGITATION Last administered on 04/02/19 03:55; Admin Dose 0.5 MG; Start 03/29/19 at 18:00 IV Flush (NS 10 ml) 10 ml Q8 PRN IV IV PROTOCOL; Start 03/29/19 at 18:00 Labetalol HCl (Labetalol) 10 mg Q4H PRN IV sbp >160; Start 03/30/19 at 09:00 Haloperidol (Haldol) 5 mg Q6H PRN IM agitation Last administered on 03/31/19 00:10; Admin Dose 5 MG; Start 03/30/19 at 10:00 Heparin Sodium (Porcine) (Heparin (1000 Units/ml)) 3,200 unit AFTER DIALYSIS CATHETER Last administered on 04/12/19 12:20; Admin Dose 3,200 UNIT; Start 03/30/19 at 17:00 Atorvastatin Calcium (Lipitor) 40 mg HS NGT Last administered on 04/13/19 21:35; Admin Dose 40 MG; Start 03/31/19 at 21:00 Baclofen (Lioresal) 10 mg BID GTB Last administered on 04/14/19 08:27; Admin Dose 10 MG; Start 03/31/19 at 21:00 Doxazosin Mesylate (Cardura) 2 mg DAILY NGT Last administered on 04/11/19 08:46; Admin Dose 2 MG; Start 03/31/19 at 14:30 Gabapentin (Neurontin) 100 mg QHS PO Last administered on 04/13/19 21:35; Admin Dose 100 MG; Start 03/31/19 at 21:00 Sertraline HCl (Zoloft) 25 mg HS NGT Last administered on 04/13/19 21:35; Admin Dose 25 MG; Start 03/31/19 at 21:00 Acetaminophen (Tylenol Liquid) 650 mg Q4H PRN PEG MILD PAIN(1-3)OR ELEVATED TE MP Last administered on 04/11/19 05:14; Admin Dose 650 MG; Start 03/31/19 at 16:00 Lactobacillus Acidophilus/ Rhamnosus (Culturelle) 1 cap TID GTB Last administered on 04/14/19 08:27; Admin Dose 1 CAP; Start 04/02/19 at 13:00 Epoetin [place]-epbx (Retacrit (Esrd)) 10,000 unit MoWeFr@1700 SC Last admi nistered on 04/12/19 18:40; Admin Dose 10,000 UNIT; Start 04/03/19 at 19:30 Lansoprazole (Prevacid) 30 mg BID@0600,1800 GTB Last administered on 04/14/19 05:42; Admin Dose 30 MG; Start 04/04/19 at 18:00 Multivit/Ca Carb/ B Cmplx/FA/Prenat (Karena-Geovanni) 1 tab DAILY GTB Last administered on 04/14/19 08:26; Admin Dose 1 TAB; Start 04/04/19 at 11:30 Aspirin (Aspirin) 81 mg DAILY PO Last administered on 04/11/19 08:46; Admin Dose 81 MG; Start 04/05/19 at 09:00; Status Hold Clopidogrel Bisulfate (plaVIX) 75 mg DAILY GTB Last administered on 04/11/19 08:45; Admin Dose 75 MG; Start 04/07/19 at 09:00; Status Hold Quetiapine Fumarate (Seroquel) 50 mg BID GTB Last administered on 04/14/19 08:26; Admin Dose 50 MG; Start 04/07/19 at 09:00 Propofol 100 ml @ 2.097 mls/ hr Q12H PRN IV AGITATION Last administered on 04/08/19 11:39; Admin Dose 6.291 MLS/HR; Start 04/08/19 at 00:00 Fentanyl 100 ml @ 2.5 mls/hr TITRATE IV Last administered on 04/13/19 22:09; Admin Dose 5 MLS/HR; Start 04/08/19 at 00:00 Midazolam HCl 50 ml @ 1 mls/hr TITRATE PRN IV agitation Last administered on 04/14/19 07:12; Admin Dose 4 MLS/HR; Start 04/08/19 at 00:00 Norepinephrine 250 ml @ 1.875 mls/ hr TITRATE IV Last administered on 04/14/19 04:43; Admin Dose 1.875 MLS/HR; Start 04/08/19 at 00:00 Levetiracetam 100 ml @ 400 mls/hr Q12 IVPB Last administered on 04/14/19 08:26; Admin Dose 400 MLS/HR; Start 04/08/19 at 09:30 Nicardipine HCl 50 mg/Sodium Chloride 500 ml @ 50 mls/hr TITRATE IV ; Start 04/08/19 at 09:30 Mupirocin (Bactroban) 1 applic BID TOP Last administered on 04/14/19 08:27; Admin Dose 1 APPLIC; Start 04/09/19 at 21:00 Budesonide (Pulmicort (Neb)) 0.5 mg BID RESP THERAPY HHN Last administered on 04/14/19 10:08; Admin Dose 0.5 MG; Start 04/12/19 at 09:00 Amikacin Sulfate (Amikacin Iv Per Pharmacy) AMIKACIN PER PHARMACY NOTE XX ; Start 04/12/19 at 10:30 Metronidazole 100 ml @ 100 mls/hr Q8 IVPB Last administered on 04/14/19 05:42; Admin Dose 100 MLS/HR; Start 04/12/19 at 14:00 Carvedilol (Coreg) 12.5 mg BID NGT Last administered on 04/12/19 21:22; Admin Dose 12.5 MG; Start 04/12/19 at 21:00 Amikacin Sulfate 300 mg/Sodium Chloride 101.2 ml @ 101.2 mls/ hr AFTER DIALYSIS IVPB ; Start 04/13/19 at 09:00 Albuterol (Ventolin Hfa) 2 puff Q6H RESP THERAPY INH Last administered on 04/14/19 08:24; Admin Dose 2 PUFF; Start 04/12/19 at 20:00 Ipratropium [place] (Atrovent Hfa) 4 puff Q6H RESP THERAPY INH Last administered on 04/14/19 08:23; Admin Dose 4 PUFF; Start 04/12/19 at 20:00 Dextrose 1,000 ml @ 50 mls/hr Q20H IV Last administered on 04/13/19at 09:08; Admin Dose 75 MLS/HR; Start 04/13/19 at 09:00; Status Hold Metoclopramide HCl (Reglan) 5 mg Q6 IV Last administered on 04/14/19at 05:42; Admin Dose 5 MG; Start 04/13/19 at 12:00 Insulin Aspart (Novolog Insulin Pen) NOVOLOG *MILD* ALGORI... Q4 SC Last administered on 04/14/19at 08:29; Admin Dose 1 UNIT; Start 04/13/19 at 09:00 Potassium Chloride 100 ml @ 50 mls/hr Q2H IVPB Last administered on 04/14/19at 09:53; Admin Dose 50 MLS/HR; Start 04/14/19 at 09:30; Stop 04/14/19 at 13:29 PEE CHAIDEZ NP Apr 14, 2019 11:19
[2019-04-14] MEDS: SERTRALINE 50 MG TAB NGT SCH (21:49)
[2019-04-14] MEDS: GABAPENTIN 100 MG CAP PO SCH (21:49)
[2019-04-14] MEDS: ATORVASTATIN 40 MG TAB NGT SCH (21:49)
[2019-04-15] VITALS (118 sets, daily range): BP systolic 68–193; BP diastolic 44–96; PULSE 65–109; RESP 0–28
[2019-04-15] MEDS: METOCLOPRAMIDE 10 MG INJ IV SCH ×4 (00:41→18:47)
[2019-04-15] MEDS: INSULIN ASPART [NOVOLOG] 3 ML PEN SC SCH ×6 (00:46→21:00)
[2019-04-15] MEDS: ALBUTEROL HFA 8 GM INHALER INH SCH ×4 (01:11→20:12)
[2019-04-15] MEDS: IPRATROPIUM (HFA) 12.9 GM INHALER INH SCH ×4 (01:11→20:12)
[2019-04-15] MEDS: metroNIDAZOLE 500 MG/NS (PMX) 100 ML IVPB SCH ×3 (05:40→22:09)
[2019-04-15] MEDS: NORepinephrine 8MG/250 ML (PMX 250 ML IV SCH (05:45)
[2019-04-15] MEDS: LANSOPRAZOLE 30 MG CAP GTB SCH ×2 (06:03→18:47)
[2019-04-15] MEDS: DOXAZOSIN 2 MG TAB NGT SCH (09:00)
[2019-04-15] MEDS: LEVETIRACETAM 500 MG (PMX) 100 ML IVPB SCH ×2 (09:41→21:05)
[2019-04-15] MEDS: BACLOFEN 10 MG TAB GTB SCH ×2 (09:42→21:04)
[2019-04-15] MEDS: LACTOBACILLUS RHAMNOSUS CAP GTB SCH ×3 (09:42→21:03)
[2019-04-15] MEDS: MUPIROCIN 2% 22 GM OINT TOP SCH ×2 (09:42→21:08)
[2019-04-15] MEDS: MULTIVIT/CA CARB/B CMPLX/FA TAB GTB SCH (09:43)
[2019-04-15] MEDS: QUETIAPINE 25 MG TAB GTB SCH ×2 (09:43→21:07)
--- NOTE | 2019-04-15 09:47 | PN ---
Date/Time of Note Date/Time of Note DATE: 04/15/19 TIME: 09:30 Assessment/Plan VTE Prophylaxis Risk score (from Nsg)>0 risk: 6 SCD applied (from Nsg): Yes Pharmacological prophylaxis: heparin Lines/Catheters IV Catheter Type (from Nrsg): Permacath Urinary Cath still in place: Yes Reason Cath still needed: terminal illness/intractable pain Assessment/Plan Assessment/Plan 1. Acute hypoxic respiratory failure - remains intubated and titrating down FIO2 as tolerated - Pulm on board for vent management. s/p intubation on 04/08/19. Appreciate consultation 2. Septic shock, intermittent - Most likely secondary to aspiration pneumonia - ID on board and appreciate recommendations. continue on current regime - Patient off pressor support this am and will continue monitoring BP - Continue on IV antibiotics 3. HCAP/Aspiration Pneumonia - Pulm on board and appreciate recommendations - ID on board for antibiotic management 4. Acute on chronic encephalopathy - remains intubate and unable to assess mentation at this time - Neurology consultation appreciated - will repeat MRI when stable 5. Anemia - stable - H/H trending upward - GI consultation appreciated and EGD revealed moderate distal esophagitis and gastritis and duodenitis. Colonoscopy showed internal hemorrhoids. Will need repeat colonoscopy in 6 months - aspirin and plavix on hold 6. End-stage renal disease on hemodialysis - Nephrology on board and appreciate consultation. Continue HD 7. Coronary artery disease status post CABG history - continue home medications - continue aspirin and Plavix when able 8. Epilepsy - Continue Keppra 9. History of CVA with residual left-sided deficit and more recent CVA - Patient reportedly had a new stroke recently at [facility] which is the cause of patient's current encephalopathic state - Neurology consultation appreciated 10. BPH 11. Disposition - Continue monitoring in ICU while requiring vent support. Patient is day 8 of intubation and will need to discuss with family possible trach placement if unable to successfully wean. >35 minutes of critical care time spent with patient. Result Diagram: 04/15/1942904/15/19429 Results 24hrs Laboratory Tests Test 04/14/19 13:32 04/14/19 17:02 04/14/19 21:45 04/15/19 00:44 Bedside Glucose 110 117 166 197 Test 04/15/19 04:30 04/15/19 05:39 White Blood Count 11.1 #H Red Blood Count 3.01 L Hemoglobin 8.8 L Hematocrit 27.0 L Mean Corpuscular Volume 89.7 Mean Corpuscular 29.2 Hemoglobin Mean Corpuscular 32.6 Hemoglobin Concent Red Cell Distribution 17.1 H Width Platelet Count 222 # Mean Platelet Volume 10.8 H Immature Granulocytes % 0.500 H Neutrophils % Lymphocytes % Monocytes % Eosinophils % Basophils % Nucleated Red Blood 0.0 Cells % Immature Granulocytes # 0.060 H Neutrophils # Lymphocytes # Monocytes # Eosinophils # Basophils # Nucleated Red Blood Cells # Sodium Level 136 Potassium Level 3.6 Chloride Level 103 Carbon Dioxide Level 23 Anion Gap 10 Blood Urea Nitrogen 21 H Creatinine 6.13 H Est Glomerular Filtrat 9 L Rate mL/min Glucose Level 151 Calcium Level 9.0 Phosphorus Level 4.0 Magnesium Level 1.9 Bedside Glucose 159 Subjective 24 Hr Interval Summary Free Text/Dictation Patient remains intubated and somnolent. No acute overnight events. Plans for HD today. Exam/Review of Systems Exam Vitals Vital Signs Date Temp Pulse Resp B/P (MAP) Pulse Ox O2 O2 Flow FiO2 Time Delivery Rate 04/15/19 90 24 162/76 97 08:45 (104) 04/15/19 Mechanical 08:30 Ventilator 04/15/19 97.6 08:00 04/15/19 50 07:49 Intake and Output 04/14/19 04/14/19 04/15/19 1515:00 23:00 07:00 IntakeIntake Total 690.189 ml 467.729 ml 203.358 ml OutputOutput Total 0 ml 30 ml 145 ml BalanceBalance 690.189 ml 437.729 ml 58.358 ml Exam General: Patient is intubated and sedated. no acute distress noted Head: Normocephalic atraumatic Eyes: EOMI, pupils reactive to light Neck: Supple, nontender, midline Respiratory: Clear to auscultation bilaterally. diminished. no wheezing appreciated Cardiovascular: regular rate and rhythm, no obvious murmurs Gastrointestinal: soft, non-tender to palpation, bowel sounds heard. Skin: No new skin lesions Results Results 24hrs Laboratory Tests Test 04/14/19 13:32 04/14/19 17:02 04/14/19 21:45 04/15/19 00:44 Bedside Glucose 110 117 166 197 Test 04/15/19 04:30 04/15/19 05:39 White Blood Count 11.1 #H Red Blood Count 3.01 L Hemoglobin 8.8 L Hematocrit 27.0 L Mean Corpuscular Volume 89.7 Mean Corpuscular 29.2 Hemoglobin Mean Corpuscular 32.6 Hemoglobin Concent Red Cell Distribution 17.1 H Width Platelet Count 222 # Mean Platelet Volume 10.8 H Immature Granulocytes % 0.500 H Neutrophils % Lymphocytes % Monocytes % Eosinophils % Basophils % Nucleated Red Blood 0.0 Cells % Immature Granulocytes # 0.060 H Neutrophils # Lymphocytes # Monocytes # Eosinophils # Basophils # Nucleated Red Blood Cells # Sodium Level 136 Potassium Level 3.6 Chloride Level 103 Carbon Dioxide Level 23 Anion Gap 10 Blood Urea Nitrogen 21 H Creatinine 6.13 H Est Glomerular Filtrat 9 L Rate mL/min Glucose Level 151 Calcium Level 9.0 Phosphorus Level 4.0 Magnesium Level 1.9 Bedside Glucose 159 Medications Medication Current Medications IV Flush (NS 3 ml) 3 ml PER PROTOCOL IV ; Start 03/29/19 at 13:30 Ondansetron HCl (Zofran Inj) 4 mg Q6H PRN IV NAUSEA/VOMITING Last administered on 04/07/19at 18:53; Admin Dose 4 MG; Start 03/29/19 at 13:30 Acetaminophen (Tylenol Tab) 650 mg Q6H PRN PO .PAIN 1-3 OR TEMP Last administered on 03/31/19at 05:48; Admin Dose 650 MG; Start 03/29/19 at 13:30 Hydralazine HCl (Apresoline) 10 mg Q4H PRN IV sbp >160 Last administered on 04/10/19at 02:35; Admin Dose 10 MG; Start 03/29/19 at 14:00 Miscellaneous Information 1 ea NOTE XX ; Start 03/29/19 at 14:30 Glucose (Glutose) 15 gm Q15M PRN PO DECREASED GLUCOSE; Start 03/29/19 at 14:30 Glucose (Glutose) 22.5 gm Q15M PRN PO DECREASED GLUCOSE; Start 03/29/19 at 14:30 Dextrose (D50w Syringe) 25 ml Q15M PRN IV DECREASED GLUCOSE Last administered on 04/13/19 05:56; Admin Dose 25 ML; Start 03/29/19 at 14:30; Status Hold Dextrose (D50w Syringe) 50 ml Q15M PRN IV DECREASED GLUCOSE; Start 03/29/19 at 14:30 Glucagon (Glucagen) 1 mg Q15M PRN IM DECREASED GLUCOSE; Start 03/29/19 at 14:30 Glucose (Glutose) 15 gm Q15M PRN BUCCAL DECREASED GLUCOSE; Start 03/29/19 at 14:30 Albumin Human 100 ml @ 100 mls/hr WITH DIALYSIS PRN IV SBP <90 DURING DIALYSIS Last administered on 04/12/19 08:58; Admin Dose 100 MLS/HR; Start 03/29/19 at 17:00 Albuterol/ Ipratropium (Duoneb) 3 ml Q2H RESP THERAPY PRN HHN WHEEZING AND RESP DISTRESS Last administered on 04/09/19 08:52; Admin Dose 3 ML; Start 03/29/19 at 18:00 Lorazepam (Ativan) 0.5 mg Q4H PRN IV AGITATION Last administered on 04/02/19 03:55; Admin Dose 0.5 MG; Start 03/29/19 at 18:00 IV Flush (NS 10 ml) 10 ml Q8 PRN IV IV PROTOCOL; Start 03/29/19 at 18:00 Labetalol HCl (Labetalol) 10 mg Q4H PRN IV sbp >160; Start 03/30/19 at 09:00 Haloperidol (Haldol) 5 mg Q6H PRN IM agitation Last administered on 03/31/19at 0 0:10; Admin Dose 5 MG; Start 03/30/19 at 10:00 Heparin Sodium (Porcine) (Heparin (1000 Units/ml)) 3,200 unit AFTER DIALYSIS CATHETER Last administered on 04/12/19 12:20; Admin Dose 3,200 UNIT; Start 03/30/19 at 17:00 Atorvastatin Calcium (Lipitor) 40 mg HS NGT Last administered on 04/14/19 21:49; Admin Dose 40 MG; Start 03/31/19 at 21:00 Baclofen (Lioresal) 10 mg BID GTB Last administered on 04/14/19 21:30; Admin Dose 10 MG; Start 03/31/19 at 21:00 Doxazosin Mesylate (Cardura) 2 mg DAILY NGT Last administered on 04/11/19 08:46; Admin Dose 2 MG; Start 03/31/19 at 14:30 Gabapentin (Neurontin) 100 mg QHS PO Last administered on 04/14/19 21:49; Admin Dose 100 MG; Start 03/31/19 at 21:00 Sertraline HCl (Zoloft) 25 mg HS NGT Last administered on 04/14/19 21:49; Admin Dose 25 MG; Start 03/31/19 at 21:00 Acetaminophen (Tylenol Liquid) 650 mg Q4H PRN PEG MILD PAIN(1-3)OR ELEVATED TEMP Last administered on 04/11/19 05:14; Admin Dose 650 MG; Start 03/31/19 at 16:00 Lactobacillus Acidophilus/ Rhamnosus (Culturelle) 1 cap TID GTB Last administered on 04/14/19 21:48; Admin Dose 1 CAP; Start 04/02/19 at 13:00 Epoetin [place]-epbx (Retacrit (Esrd)) 10,000 unit MoWeFr@1700 SC Last administer ed on 04/12/19 18:40; Admin Dose 10,000 UNIT; Start 04/03/19 at 19:30 Lansoprazole (Prevacid) 30 mg BID@0600,1800 GTB Last administered on 04/15/19 06:03; Admin Dose 30 MG; Start 04/04/19 at 18:00 Multivit/Ca Carb/ B Cmplx/FA/Prenat (Karena-Geovanni) 1 tab DAILY GTB Last administered on 04/14/19 08:26; Admin Dose 1 TAB; Start 04/04/19 at 11:30 Aspirin (Aspirin) 81 mg DAILY PO Last administered on 04/11/19 08:46; Admin Dose 81 MG; Start 04/05/19 at 09:00; Status Hold Clopidogrel Bisulfate (plaVIX) 75 mg DAILY GTB Last administered on 04/11/19 08:45; Admin Dose 75 MG; Start 04/07/19 at 09:00; Status Hold Quetiapine Fumarate (Seroquel) 50 mg BID GTB Last administered on 04/14/19 21:49; Admin Dose 50 MG; Start 04/07/19 at 09:00 Propofol 100 ml @ 2.097 mls/ hr Q12H PRN IV AGITATION Last administered on 04/08/19 11:39; Admin Dose 6.291 MLS/HR; Start 04/08/19 at 00:00 Fentanyl 100 ml @ 2.5 mls/hr TITRATE IV Last administered on 04/13/19 22:09; Admin Dose 5 MLS/HR; Start 04/08/19 at 00:00 Midazolam HCl 50 ml @ 1 mls/hr TITRATE PRN IV agitation Last administered on 04/14/19 07:12; Admin Dose 4 MLS/HR; Start 04/08/19 at 00:00 Norepinephrine 250 ml @ 1.875 mls/ hr TITRATE IV Last administered on 04/15/19 05:45; Admin Dose 1.875 MLS/HR; Start 04/08/19 at 00:00 Levetiracetam 100 ml @ 400 mls/hr Q12 IVPB Last administered on 04/14/19 21:45; Admin Dose 400 MLS/HR; Start 04/08/19 at 09:30 Nicardipine HCl 50 mg/Sodium Chloride 500 ml @ 50 mls/hr TITRATE IV ; Start 04/08/19 at 09:30 Mupirocin (Bactroban) 1 applic BID TOP Last administered on 04/14/19 21:48; Admin Dose 1 APPLIC; Start 04/09/19 at 21:00 Budesonide (Pulmicort (Neb)) 0.5 mg BID RESP THERAPY HHN Last administered on 04/14/19 20:48; Admin Dose 0.5 MG; Start 04/12/19 at 09:00 Amikacin Sulfate (Amikacin Iv Per Pharmacy) AMIKACIN PER PHARMACY NOTE XX ; Start 04/12/19 at 10:30 Metronidazole 100 ml @ 100 mls/hr Q8 IVPB Last administered on 04/15/19 05:40; Admin Dose 100 MLS/HR; Start 04/12/19 at 14:00 Carvedilol (Coreg) 12.5 mg BID NGT Last administered on 04/14/19 21:48; Admin Dose 12.5 MG; Start 04/12/19 at 21:00 Amikacin Sulfate 300 mg/Sodium Chloride 101.2 ml @ 101.2 mls/ hr AFTER DIALYSIS IVPB ; Start 04/13/19 at 09:00 Albuterol (Ventolin Hfa) 2 puff Q6H RESP THERAPY INH Last administered on 04/15/19 07:52; Admin Dose 2 PUFF; Start 04/12/19 at 20:00 Ipratropium [place] (Atrovent Hfa) 4 puff Q6H RESP THERAPY INH Last administered on 04/15/19 07:52; Admin Dose 4 PUFF; Start 04/12/19 at 20:00 Dextrose 1,000 ml @ 50 mls/hr Q20H IV Last administered on 04/13/19 09:08; Admin Dose 75 MLS/HR; Start 04/13/19 at 09:00; Status Hold Metoclopramide HCl (Reglan) 5 mg Q6 IV Last administered on 04/15/19 05:41; A dmin Dose 5 MG; Start 04/13/19 at 12:00 Insulin Aspart (Novolog Insulin Pen) NOVOLOG *MILD* ALGORI... Q4 SC Last administered on 04/15/19 05:43; Admin Dose 1 UNIT; Start 04/13/19 at 09:00 LILLIAN ZHANG MD Apr 15, 2019 09:47
[2019-04-15] MEDS: BUDESONIDE (NEB) 0.5MG/2ML AMP HHN SCH ×2 (10:08→20:14)
--- NOTE | 2019-04-15 11:16 | CONS ---
Assessment/Plan Assessment/Plan Assessment/Plan (Recall) 58 M c/ reported Hx of stroke, ESRD and other comorbidities, who was initially admitted for evaluation and management of agitation...for which neurology was consulted. The clinical picture was thought consistent w/ delirium in the context of recent and prolonged hospitalization and subsequent transfer to skilled care. He subsequently returned to his mental status baseline.. Head CT was unrevealing. Then on 04/07, the patient developed ams in the context of hypotension and acute respiratory failure, requiring intubation and pressor support.. Heis now thought to have aspiration pneumonia, which could certainly exacerbate a chronic encephalopathy.. A recurrent, acute cerebrovascular process is additionally considered.. Repeat Head CT is stable from prior P: Agree w/ Plavix daily for now, for secondary prevention (LDL is at goal) Continued medical management and supportive care per primary Continue to hold sedating medications, where possible Will follow clinically Consultation Date/Type/Reason Admit Date/Time Mar 29, 2019 at 13:16 Type of Consult Neurology Reason for Consultation ams Requesting Provider: LILLIAN ZHANG MD Date/Time of Note DATE: 04/15/19 TIME: 11:15 24 HR Interval Summary Free Text/Dictation Off sedation x 24 hrs Exam/Review of Systems Exam Vitals Vital Signs Date Temp Pulse Resp B/P (MAP) Pulse Ox O2 O2 Flow FiO2 Time Delivery Rate 04/15/19 81 18 95 50 11:02 04/15/19 162/76 08:45 (104) 04/15/19 Mechanical 08:30 Ventilator 04/15/19 97.6 08:00 Intake and Output 04/14/19 04/14/19 04/15/19 1515:00 23:00 07:00 IntakeIntake Total 690.189 ml 467.729 ml 203.358 ml OutputOutput Total 0 ml 30 ml 145 ml BalanceBalance 690.189 ml 437.729 ml 58.358 ml Results Result Diagram: 04/15/19 0430 04/15/19 0430 Results 24hrs Laboratory Tests Test 04/14/19 13:32 04/14/19 17:02 04/14/19 21:45 04/15/19 00:44 Bedside Glucose 110 117 166 197 Test 04/15/19 04:30 04/15/19 05:39 04/15/19 09:38 White Blood Count 11.1 #H Red Blood Count 3.01 L Hemoglobin 8.8 L Hematocrit 27.0 L Mean Corpuscular Volume 89.7 Mean Corpuscular 29.2 Hemoglobin Mean Corpuscular 32.6 Hemoglobin Concent Red Cell Distribution 17.1 H Width Platelet Count 222 # Mean Platelet Volume 10.8 H Immature Granulocytes % 0.500 H Neutrophils % Segmented Neutrophils 66 % (Manual) Band Neutrophils % 19 H (Manual) Lymphocytes % Lymphocytes % (Manual) 5 L Reactive Lymphocytes 5 H % (Manual) Monocytes % Monocytes % (Manual) 2 Eosinophils % Basophils % Myelocytes % (Manual) 3 H Nucleated Red Blood 0.0 Cells % Immature Granulocytes # 0.060 H Neutrophils # Neutrophils # (Manual) 7.6 H Band Neutrophils # 2.1 H Lymphocytes (Manual) 0.5 L Lymphocytes # Reactive Lymphocytes # 0.5 H Monocytes # Monocytes # (Manual) 0.2 L Eosinophils # Basophils # Myelocytes # 0.3 H Nucleated Red Blood Cells # Platelet Estimate NORMAL Polychromasia 3+ Poikilocytosis 2+ Anisocytosis 1+ Sodium Level 136 Potassium Level 3.6 Chloride Level 103 Carbon Dioxide Level 23 Anion Gap 10 Blood Urea Nitrogen 21 H Creatinine 6.13 H Est Glomerular Filtrat 9 L Rate mL/min Glucose Level 151 Calcium Level 9.0 Phosphorus Level 4.0 Magnesium Level 1.9 Bedside Glucose 159 150 Medications Medication Current Medications IV Flush (NS 3 ml) 3 ml PER PROTOCOL IV ; Start 03/29/19 at 13:30 Ondansetron HCl (Zofran Inj) 4 mg Q6H PRN IV NAUSEA/VOMITING Last administered on 04/07/19at 18:53; Admin Dose 4 MG; Start 03/29/19 at 13:30 Acetaminophen (Tylenol Tab) 650 mg Q6H PRN PO .PAIN 1-3 OR TEMP Last administered on 03/31/19at 05:48; Admin Dose 650 MG; Start 03/29/19 at 13:30 Hydralazine HCl (Apresoline) 10 mg Q4H PRN IV sbp >160 Last administered on 04/10/19at 02:35; Admin Dose 10 MG; Start 03/29/19 at 14:00 Miscellaneous Information 1 ea NOTE XX ; Start 03/29/19 at 14:30 Glucose (Glutose) 15 gm Q15M PRN PO DECREASED GLUCOSE; Start 03/29/19 at 14:30 Glucose (Glutose) 22.5 gm Q15M PRN PO DECREASED GLUCOSE; Start 03/29/19 at 14:30 Dextrose (D50w Syringe) 25 ml Q15M PRN IV DECREASED GLUCOSE Last administered on 04/13/19 05:56; Admin Dose 25 ML; Start 03/29/19 at 14:30; Status Hold Dextrose (D50w Syringe) 50 ml Q15M PRN IV DECREASED GLUCOSE; Start 03/29/19 at 14:30 Glucagon (Glucagen) 1 mg Q15M PRN IM DECREASED GLUCOSE; Start 03/29/19 at 14:30 Glucose (Glutose) 15 gm Q15M PRN BUCCAL DECREASED GLUCOSE; Start 03/29/19 at 14:30 Albumin Human 100 ml @ 100 mls/hr WITH DIALYSIS PRN IV SBP <90 DURING DIALYSIS Last administered on 04/12/19at 08:58; Admin Dose 100 MLS/HR; Start 03/29/19 at 17:00 Albuterol/ Ipratropium (Duoneb) 3 ml Q2H RESP THERAPY PRN HHN WHEEZING AND RESP DISTRESS Last administered on 04/09/19at 08:52; Admin Dose 3 ML; Start 03/29/19 at 18:00 Lorazepam (Ativan) 0.5 mg Q4H PRN IV AGITATION Last administered on 04/02/19at 03:55; Admin Dose 0.5 MG; Start 03/29/19 at 18:00 IV Flush (NS 10 ml) 10 ml Q8 PRN IV IV PROTOCOL; Start 03/29/19 at 18:00 Labetalol HCl (Labetalol) 10 mg Q4H PRN IV sbp >160; Start 03/30/19 at 09:00 Haloperidol (Haldol) 5 mg Q6H PRN IM agitation Last administered on 03/31/19at 00:10; Admin Dose 5 MG; Start 03/30/19 at 10:00 Heparin Sodium (Porcine) (Heparin (1000 Units/ml)) 3,200 unit AFTER DIALYSIS CATHETER Last administered on 04/12/19at 12:20; Admin Dose 3,200 UNIT; Start 03/30/19 at 17:00 Atorvastatin Calcium (Lipitor) 40 mg HS NGT Last administered on 04/14/19at 21:49; Admin Dose 40 MG; Start 03/31/19 at 21:00 Baclofen (Lioresal) 10 mg BID GTB Last administered on 04/15/19 09:42; Admin Dose 10 MG; Start 03/31/19 at 21:00 Doxazosin Mesylate (Cardura) 2 mg DAILY NGT Last administered on 04/11/19 08:46; Admin Dose 2 MG; Start 03/31/19 at 14:30 Gabapentin (Neurontin) 100 mg QHS PO Last administered on 04/14/19 21:49; Admin Dose 100 MG; Start 03/31/19 at 21:00 Sertraline HCl (Zoloft) 25 mg HS NGT Last administered on 04/14/19 21:49; Admin Dose 25 MG; Start 03/31/19 at 21:00 Acetaminophen (Tylenol Liquid) 650 mg Q4H PRN PEG MILD PAIN(1-3)OR ELEVATED TEMP Last administered on 04/11/19 05:14; Admin Dose 650 MG; Start 03/31/19 at 16:00 Lactobacillus Acidophilus/ Rhamnosus (Culturelle) 1 cap TID GTB Last administered on 04/15/19 09:42; Admin Dose 1 CAP; Start 04/02/19 at 13:00 Epoetin [place]-epbx (Retacrit (Esrd)) 10,000 unit MoWeFr@1700 SC Last administered on 04/12/19 18:40; Admin Dose 10,000 UNIT; Start 04/03/19 at 19:30 Lansoprazole (Prevacid) 30 mg BID@0600,1800 GTB Last administered on 04/15/19 06:03; Admin Dose 30 MG; Start 04/04/19 at 18:00 Multivit/Ca Carb/ B Cmplx/FA/Prenat (Karena-Geovanni) 1 tab DAILY GTB Last administered on 04/15/19 09:43; Admin Dose 1 TAB; Start 04/04/19 at 11:30 Aspirin (Aspirin) 81 mg DAILY PO Last administered on 04/11/19 08:46; Admin Dose 81 MG; Start 04/05/19 at 09:00; Status Hold Clopidogrel Bisulfate (plaVIX) 75 mg DAILY GTB Last administered on 04/11/19 08:45; Admin Dose 75 MG; Start 04/07/19 at 09:00; Status Hold Quetiapine Fumarate (Seroquel) 50 mg BID GTB Last administered on 04/15/19 09:43; Admin Dose 50 MG; Start 04/07/19 at 09:00 Propofol 100 ml @ 2.097 mls/ hr Q12H PRN IV AGITATION Last administered on 04/08/19 11:39; Admin Dose 6.291 MLS/HR; Start 04/08/19 at 00:00 Fentanyl 100 ml @ 2.5 mls/hr TITRATE IV Last administered on 04/13/19 22:09; Admin Dose 5 MLS/HR; Start 04/08/19 at 00:00 Midazolam HCl 50 ml @ 1 mls/hr TITRATE PRN IV agitation Last administered on 04/14/19 07:12; Admin Dose 4 MLS/HR; Start 04/08/19 at 00:00 Norepinephrine 250 ml @ 1.875 mls/ hr TITRATE IV Last administered on 04/15/19 05:45; Admin Dose 1.875 MLS/HR; Start 04/08/19 at 00:00 Levetiracetam 100 ml @ 400 mls/hr Q12 IVPB Last administered on 04/15/19 09:41; Admin Dose 400 MLS/HR; Start 04/08/19 at 09:30 Nicardipine HCl 50 mg/Sodium Chloride 500 ml @ 50 mls/hr TITRATE IV ; Start 04/08/19 at 09:30 Mupirocin (Bactroban) 1 applic BID TOP Last administered on 04/15/19 09:42; Admin Dose 1 APPLIC; Start 04/09/19 at 21:00 Budesonide (Pulmicort (Neb)) 0.5 mg BID RESP THERAPY HHN Last administered on 04/15/19 10:08; Admin Dose 0.5 MG; Start 04/12/19 at 09:00 Amikacin Sulfate (Amikacin Iv Per Pharmacy) AMIKACIN PER PHARMACY NOTE XX ; Start 04/12/19 at 10:30 Metronidazole 100 ml @ 100 mls/hr Q8 IVPB Last administered on 04/15/19 05:40; Admin Dose 100 MLS/HR; Start 04/12/19 at 14:00 Carvedilol (Coreg) 12.5 mg BID NGT Last administered on 04/14/19 21:48; Admin Dose 12.5 MG; Start 04/12/19 at 21:00 Amikacin Sulfate 300 mg/Sodium Chloride 101.2 ml @ 101.2 mls/ hr AFTER DIALYSIS IVPB ; Start 04/13/19 at 09:00 Albuterol (Ventolin Hfa) 2 puff Q6H RESP THERAPY INH Last administered on 04/15/19 07:52; Admin Dose 2 PUFF; Start 04/12/19 at 20:00 Ipratropium [place] (Atrovent Hfa) 4 puff Q6H RESP THERAPY INH Last administered on 04/15/19 07:52; Admin Dose 4 PUFF; Start 04/12/19 at 20:00 Dextrose 1,000 ml @ 50 mls/hr Q20H IV Last administered on 04/13/19 09:08; Admin Dose 75 MLS/HR; Start 04/13/19 at 09:00; Status Hold Metoclopramide HCl (Reglan) 5 mg Q6 IV Last administered on 04/15/19 05:41; Admin Dose 5 MG; Start 04/13/19 at 12:00 Insulin Aspart (Novolog Insulin Pen) NOVOLOG *MILD* ALGORI... Q4 SC Last administered on 04/15/19 09:44; Admin Dose 1 UNIT; Start 04/13/19 at 09:00 GEOVANNI BLANCHARD Apr 15, 2019 11:16
--- NOTE | 2019-04-15 12:06 | CONS ---
Assessment/Plan Assessment/Plan Assessment/Plan (Daily) 1. Acute hypoxemic respiratory failure intubated on ventilator 2. Accelerated HTN 3. ESRD on HD - MWF schedule at [facility] HD center 4. H/o CAD s/p CABG before 5. H/o CAD with previous recent stent placement in 09/2018 6. h/o HTN 7. H/o DM II 8. h/o HL 9. 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 H/o BPH Plan: s/p HD today 2.5 L removed, will continue pt on MWF schedule while being in hospital- Ventilator management as per pulmonary - BP controlled with Losartan 100mg po daily Coreg 25 BID, Hydralazine 75 mg pO TID for better BP control Epogen 44826 units SQ MWF will follow up Consultation Date/Type/Reason Admit Date/Time Mar 29, 2019 at 13:16 Initial Consult Date 03/29/19 Type of Consult NEPHROLOGY Requesting Provider: LILLIAN ZHANG MD Date/Time of Note DATE: 04/15/19 TIME: 12:06 Exam/Review of Systems Exam Vitals Vital Signs Date Temp Pulse Resp B/P (MAP) Pulse Ox O2 O2 Flow FiO2 Time Delivery Rate 04/15/19 81 18 95 50 11:02 04/15/19 162/76 08:45 (104) 04/15/19 Mechanical 08:30 Ventilator 04/15/19 97.6 08:00 Intake and Output 04/14/19 04/14/19 04/15/19 1515:00 23:00 07:00 IntakeIntake Total 690.189 ml 467.729 ml 203.358 ml OutputOutput Total 0 ml 30 ml 145 ml BalanceBalance 690.189 ml 437.729 ml 58.358 ml Exam Constitutional: intubated on ventilator , ET tube in place Respiratory: crackles/rales, diminished breath sounds Cardiovascular: regular rate and rhythm, nl pulses Gastrointestinal: soft, non-tender Musculoskeletal: swelling (1-2+pitting edema ) Extremities: normal pulses Neurological: Non focal Results Result Diagram: 04/15/19 0430 04/15/19 0430 Results 24hrs Laboratory Tests Test 04/14/19 13:32 04/14/19 17:02 04/14/19 21:45 04/15/19 00:44 Bedside Glucose 110 117 166 197 Test 04/15/19 04:30 04/15/19 05:39 04/15/19 09:38 White Blood Count 11.1 #H Red Blood Count 3.01 L Hemoglobin 8.8 L Hematocrit 27.0 L Mean Corpuscular Volume 89.7 Mean Corpuscular 29.2 Hemoglobin Mean Corpuscular 32.6 Hemoglobin Concent Red Cell Distribution 17.1 H Width Platelet Count 222 # Mean Platelet Volume 10.8 H Immature Granulocytes % 0.500 H Neutrophils % Segmented Neutrophils 66 % (Manual) Band Neutrophils % 19 H (Manual) Lymphocytes % Lymphocytes % (Manual) 5 L Reactive Lymphocytes 5 H % (Manual) Monocytes % Monocytes % (Manual) 2 Eosinophils % Basophils % Myelocytes % (Manual) 3 H Nucleated Red Blood 0.0 Cells % Immature Granulocytes # 0.060 H Neutrophils # Neutrophils # (Manual) 7.6 H Band Neutrophils # 2.1 H Lymphocytes (Manual) 0.5 L Lymphocytes # Reactive Lymphocytes # 0.5 H Monocytes # Monocytes # (Manual) 0.2 L Eosinophils # Basophils # Myelocytes # 0.3 H Nucleated Red Blood Cells # Platelet Estimate NORMAL Polychromasia 3+ Poikilocytosis 2+ Anisocytosis 1+ Sodium Level 136 Potassium Level 3.6 Chloride Level 103 Carbon Dioxide Level 23 Anion Gap 10 Blood Urea Nitrogen 21 H Creatinine 6.13 H Est Glomerular Filtrat 9 L Rate mL/min Glucose Level 151 Calcium Level 9.0 Phosphorus Level 4.0 Magnesium Level 1.9 Bedside Glucose 159 150 Medications Medication Current Medications IV Flush (NS 3 ml) 3 ml PER PROTOCOL IV ; Start 03/29/19 at 13:30 Ondansetron HCl (Zofran Inj) 4 mg Q6H PRN IV NAUSEA/VOMITING Last administered on 04/07/19at 18:53; Admin Dose 4 MG; Start 03/29/19 at 13:30 Acetaminophen (Tylenol Tab) 650 mg Q6H PRN PO .PAIN 1-3 OR TEMP Last administered on 03/31/19at 05:48; Admin Dose 650 MG; Start 03/29/19 at 13:30 Hydralazine HCl (Apresoline) 10 mg Q4H PRN IV sbp >160 Last administered on 04/10/19at 02:35; Admin Dose 10 MG; Start 03/29/19 at 14:00 Miscellaneous Information 1 ea NOTE XX ; Start 03/29/19 at 14:30 Glucose (Glutose) 15 gm Q15M PRN PO DECREASED GLUCOSE; Start 03/29/19 at 14:30 Glucose (Glutose) 22.5 gm Q15M PRN PO DECREASED GLUCOSE; Start 03/29/19 at 14:30 Dextrose (D50w Syringe) 25 ml Q15M PRN IV DECREASED GLUCOSE Last administered on 04/13/19at 05:56; Admin Dose 25 ML; Start 03/29/19 at 14:30; Status Hold Dextrose (D50w Syringe) 50 ml Q15M PRN IV DECREASED GLUCOSE; Start 03/29/19 at 14:30 Glucagon (Glucagen) 1 mg Q15M PRN IM DECREASED GLUCOSE; Start 03/29/19 at 14:30 Glucose (Glutose) 15 gm Q15M PRN BUCCAL DECREASED GLUCOSE; Start 03/29/19 at 14:30 Albumin Human 100 ml @ 100 mls/hr WITH DIALYSIS PRN IV SBP <90 DURING DIALYSIS Last administered on 04/12/19at 08:58; Admin Dose 100 MLS/HR; Start 03/29/19 at 17:00 Albuterol/ Ipratropium (Duoneb) 3 ml Q2H RESP THERAPY PRN HHN WHEEZING AND RESP DISTRESS Last administered on 04/09/19at 08:52; Admin Dose 3 ML; Start 03/29/19 at 18:00 Lorazepam (Ativan) 0.5 mg Q4H PRN IV AGITATION Last administered on 04/02/19at 03:55; Admin Dose 0.5 MG; Start 03/29/19 at 18:00 IV Flush (NS 10 ml) 10 ml Q8 PRN IV IV PROTOCOL; Start 03/29/19 at 18:00 Labetalol HCl (Labetalol) 10 mg Q4H PRN IV sbp >160; Start 03/30/19 at 09:00 Haloperidol (Haldol) 5 mg Q6H PRN IM agitation Last administered on 03/31/19at 00:10; Admin Dose 5 MG; Start 03/30/19 at 10:00 Heparin Sodium (Porcine) (Heparin (1000 Units/ml)) 3,200 unit AFTER DIALYSIS CATHETER Last administered on 04/12/19at 12:20; Admin Dose 3,200 UNIT; Start 03/30/19 at 17:00 Atorvastatin Calcium (Lipitor) 40 mg HS NGT Last administered on 04/14/19 21:49; Admin Dose 40 MG; Start 03/31/19 at 21:00 Baclofen (Lioresal) 10 mg BID GTB Last administered on 04/15/19 09:42; Admin Do se 10 MG; Start 03/31/19 at 21:00 Doxazosin Mesylate (Cardura) 2 mg DAILY NGT Last administered on 04/11/19 08:46; Admin Dose 2 MG; Start 03/31/19 at 14:30 Gabapentin (Neurontin) 100 mg QHS PO Last administered on 04/14/19 21:49; Admin Dose 100 MG; Start 03/31/19 at 21:00 Sertraline HCl (Zoloft) 25 mg HS NGT Last administered on 04/14/19 21:49; Admin Dose 25 MG; Start 03/31/19 at 21:00 Acetaminophen (Tylenol Liquid) 650 mg Q4H PRN PEG MILD PAIN(1-3)OR ELEVATED TEMP Last administered on 04/11/19 05:14; Admin Dose 650 MG; Start 03/31/19 at 16:00 Lactobacillus Acidophilus/ Rhamnosus (Culturelle) 1 cap TID GTB Last administered on 04/15/19 09:42; Admin Dose 1 CAP; Start 04/02/19 at 13:00 Epoetin [place]-epbx (Retacrit (Esrd)) 10,000 unit MoWeFr@1700 SC Last administered on 04/12/19 18:40; Admin Dose 10,000 UNIT; Start 04/03/19 at 19:30 Lansoprazole (Prevacid) 30 mg BID@0600,1800 GTB Last administered on 04/15/19 06:03; Admin Dose 30 MG; Start 04/04/19 at 18:00 Multivit/Ca Carb/ B Cmplx/FA/Prenat (Karena-Geovanni) 1 tab DAILY GTB Last administered on 04/15/19 09:43; Admin Dose 1 TAB; Start 04/04/19 at 11:30 Aspirin (Aspirin) 81 mg DAILY PO Last administered on 04/11/19 08:46; Admin Dose 81 MG; Start 04/05/19 at 09:00; Status Hold Clopidogrel Bisulfate (plaVIX) 75 mg DAILY GTB Last administered on 04/11/19 08:45; Admin Dose 75 MG; Start 04/07/19 at 09:00; Status Hold Quetiapine Fumarate (Seroquel) 50 mg BID GTB Last administered on 04/15/19 09:43; Admin Dose 50 MG; Start 04/07/19 at 09:00 Propofol 100 ml @ 2.097 mls/ hr Q12H PRN IV AGITATION Last administered on 04/08/19 11:39; Admin Dose 6.291 MLS/HR; Start 04/08/19 at 00:00 Fentanyl 100 ml @ 2.5 mls/hr TITRATE IV Last administered on 04/13/19 22:09; Admin Dose 5 MLS/HR; Start 04/08/19 at 00:00 Midazolam HCl 50 ml @ 1 mls/hr TITRATE PRN IV agitation Last administered on 04/14/19 07:12; Admin Dose 4 MLS/HR; Start 04/08/19 at 00:00 Norepinephrine 250 ml @ 1.875 mls/ hr TITRATE IV Last administered on 04/15/19 05:45; Admin Dose 1.875 MLS/HR; Start 04/08/19 at 00:00 Levetiracetam 100 ml @ 400 mls/hr Q12 IVPB Last administered on 04/15/19 09:41; Admin Dose 400 MLS/HR; Start 04/08/19 at 09:30 Nicardipine HCl 50 mg/Sodium Chloride 500 ml @ 50 mls/hr TITRATE IV ; Start 04/08/19 at 09:30 Mupirocin (Bactroban) 1 applic BID TOP Last administered on 04/15/19 09:42; Admin Dose 1 APPLIC; Start 04/09/19 at 21:00 Budesonide (Pulmicort (Neb)) 0.5 mg BID RESP THERAPY HHN Last administered on 04/15/19 10:08; Admin Dose 0.5 MG; Start 04/12/19 at 09:00 Amikacin Sulfate (Amikacin Iv Per Pharmacy) AMIKACIN PER PHARMACY NOTE XX ; Start 04/12/19 at 10:30 Metronidazole 100 ml @ 100 mls/hr Q8 IVPB Last administered on 04/15/19 05:40; Admin Dose 100 MLS/HR; Start 04/12/19 at 14:00 Carvedilol (Coreg) 12.5 mg BID NGT Last administered on 04/14/19 21:48; Admin Dose 12.5 MG; Start 04/12/19 at 21:00 Amikacin Sulfate 300 mg/Sodium Chloride 101.2 ml @ 101.2 mls/ hr AFTER DIALYSIS IVPB ; Start 04/13/19 at 09:00 Albuterol (Ventolin Hfa) 2 puff Q6H RESP THERAPY INH Last administered on 04/15/19 07:52; Admin Dose 2 PUFF; Start 04/12/19 at 20:00 Ipratropium [place] (Atrovent Hfa) 4 puff Q6H RESP THERAPY INH Last administered on 04/15/19 07:52; Admin Dose 4 PUFF; Start 04/12/19 at 20:00 Dextrose 1,000 ml @ 50 mls/hr Q20H IV Last administered on 04/13/19 09:08; Admin Dose 75 MLS/HR; Start 04/13/19 at 09:00; Status Hold Metoclopramide HCl (Reglan) 5 mg Q6 IV Last administered on 04/15/19 05:41; Admin Dose 5 MG; Start 04/13/19 at 12:00 Insulin Aspart (Novolog Insulin Pen) NOVOLOG *MILD* ALGORI... Q4 SC Last administered on 04/15/19 09:44; Admin Dose 1 UNIT; Start 04/13/19 at 09:00 BETZAIDA YAÑEZ MD Apr 15, 2019 12:06
--- NOTE | 2019-04-15 12:10 | CONS ---
Assessment/Plan Assessment/Plan Hospital Course (Demo Recall) ID PROGRESS NOTE CURRENT ABX: DAY # 17 =>Amikacin #4 + Flagyl #4 S/P Vanco IV + Zosyn 04/15/19 0430 04/15/19 0430 24H INTERVAL SUMMARY * Afebrile today - TMAx yesterday 99.3, WBC up today * SEDATED, REMAINS ON PRESSORS -orally intubated on mechanical ventilation * Indwelling's: Endotracheal tube right chest PermCath, PEG, Winters, PICC line DIAGNOSTIC IMAGING * 04/12/19 CXR: IMPRESSION:1. Interval decreased pulmonary edema. 2. Persistent dense opacification of the left base by combination of consolidation and small pleural effusion. 3. Unchanged small right pleural effusion. 4. Stable position of support devices. * 04/11/19 CXR: IMPRESSION:Calcified atherosclerosis in the aorta. Stable left lower lung infiltrates with small left pleural effusion.Mild interval increase in patchy infiltrates throughout the right lung. Hypoinflated lungs with an elevated right hemidiaphragm. PROCEDURES * -EGD 04/03/2019 Moderate distal esophagitis. Gastrostomy tube in place. Gastritis -biopsies are negative for H. pylori. Duodenitis. * Colonoscopy 04/03/2019 8 sessile polyp in the cecum. Snared and retrieved. -Tubular adenoma 6 mm sessile polyp ascending colon. Snared and retrieved. -Tubular adenoma 6 mm sessile polyp sigmoid. Snared and retrieved. -Tubular adenoma 20 mm sessile polyp sigmoid. Saline assisted lipectomy plus localization tattoo. Moderate-sized internal hemorrhoids. MICRO * BCx(-) * 04/07/19 BCx (-) * 04/08/19 Sputum (+) GNR x2 RESPIRATORY CULTURE Final Organism 1 K PNEUMO ESBL QUANTITY 2+ . MULTI DRUG RESISTANT ORGANISM Organism 2 SERRATIA MARCESCENS QUANTITY 2+ KLEB PNEUM KLEB PNEUM S MARCESCE M.I.C. RX M.I.C. RX M.I.C. RX --------- --- --------- --- --------- --- AMIKACIN <=2 S CEFAZOLIN R CEFEPIME 2 S CEFOTAXIME R S CIPROFLOXACIN 2 I <=0.25 S GENTAMICIN >=16 R <=1 S LEVOFLOXACIN 1 S <=0.12 S MEROPENEM 0.032 S TOBRAMYCIN >=16 R <=1 S TRIMETHOPRIM/SULFAMETHOXAZOLE >=320 R <=20 S PIPERACILLIN/TAZOBACTAM 16 S PHYSICAL EXAMINATION: GENERAL: VSS, NAD HEENT: AT, NC, NECK: Supple, CHEST: Rise symmetrical HEART: Pulse RRR ABDOMEN: Benign EXTREMITIES: Warm, dry SKIN: No rash, no diaphoresis ID ASSESSMENT 58 yo M admit with: 1. Sepsis 2. Acute respiratory failure possibly aspirated 3. Aspiration GNR HCAP 4. Encephalopathy, possible acute on chronic CVA 5. End-stage renal disease, hemodialysis dependent 6. Dysphagia-> PEG 7. Liquid diarrhea on current ABX 8. Anemia -> GI work-up Moderate Distal Esophagitis/Gastritis/Internal Hemo rrhoids (+)MRSA Nares ->Bactroban ABX ALLERGIES: KNDA INVASIVES: PIV CURRENT ABX: DAY # 17 =>Amikacin #4+ Flagyl #4 S/P Vanco IV + Zosyn ID RECOMMENDATIONS/PLAN: 1. ABX changed 04/12/19 per copious liquid diarrhea on Vanco/Zosyn 2. WBC up slightly w/low grade temp 99.3 -- will repeat UA C&S . Consultation Date/Type/Reason Admit Date/Time Mar 29, 2019 at 13:16 Initial Consult Date 04/07/19 Requesting Provider: LILLIAN ZHANG MD Date/Time of Note DATE: 04/15/19 TIME: 12:07 Exam/Review of Systems Exam Vitals Vital Signs Date Temp Pulse Resp B/P (MAP) Pulse Ox O2 O2 Flow FiO2 Time Delivery Rate 04/15/19 81 18 95 50 11:02 04/15/19 162/76 08:45 (104) 04/15/19 Mechanical 08:30 Ventilator 04/15/19 97.6 08:00 Intake and Output 04/14/19 04/14/19 04/15/19 1414:59 22:59 06:59 IntakeIntake Total 668.251 ml 507.684 ml 102.466 ml OutputOutput Total 0 ml 30 ml 145 ml BalanceBalance 668.251 ml 477.684 ml -42.534 ml Results Result Diagram: 04/15/19 0430 04/15/19 0430 Results 24hrs Laboratory Tests Test 04/14/19 13:32 04/14/19 17:02 04/14/19 21:45 04/15/19 00:44 Bedside Glucose 110 117 166 197 Test 04/15/19 04:30 04/15/19 05:39 04/15/19 09:38 White Blood Count 11.1 #H Red Blood Count 3.01 L Hemoglobin 8.8 L Hematocrit 27.0 L Mean Corpuscular Volume 89.7 Mean Corpuscular 29.2 Hemoglobin Mean Corpuscular 32.6 Hemoglobin Concent Red Cell Distribution 17.1 H Width Platelet Count 222 # Mean Platelet Volume 10.8 H Immature Granulocytes % 0.500 H Neutrophils % Segmented Neutrophils 66 % (Manual) Band Neutrophils % 19 H (Manual) Lymphocytes % Lymphocytes % (Manual) 5 L Reactive Lymphocytes 5 H % (Manual) Monocytes % Monocytes % (Manual) 2 Eosinophils % Basophils % Myelocytes % (Manual) 3 H Nucleated Red Blood 0.0 Cells % Immature Granulocytes # 0.060 H Neutrophils # Neutrophils # (Manual) 7.6 H Band Neutrophils # 2.1 H Lymphocytes (Manual) 0.5 L Lymphocytes # Reactive Lymphocytes # 0.5 H Monocytes # Monocytes # (Manual) 0.2 L Eosinophils # Basophils # Myelocytes # 0.3 H Nucleated Red Blood Cells # Platelet Estimate NORMAL Polychromasia 3+ Poikilocytosis 2+ Anisocytosis 1+ Sodium Level 136 Potassium Level 3.6 Chloride Level 103 Carbon Dioxide Level 23 Anion Gap 10 Blood Urea Nitrogen 21 H Creatinine 6.13 H Est Glomerular Filtrat 9 L Rate mL/min Glucose Level 151 Calcium Level 9.0 Phosphorus Level 4.0 Magnesium Level 1.9 Bedside Glucose 159 150 Medications Medication Current Medications IV Flush (NS 3 ml) 3 ml PER PROTOCOL IV ; Start 03/29/19 at 13:30 Ondansetron HCl (Zofran Inj) 4 mg Q6H PRN IV NAUSEA/VOMITING Last administered on 04/07/19 18:53; Admin Dose 4 MG; Start 03/29/19 at 13:30 Acetaminophen (Tylenol Tab) 650 mg Q6H PRN PO .PAIN 1-3 OR TEMP Last administered on 03/31/19 05:48; Admin Dose 650 MG; Start 03/29/19 at 13:30 Hydralazine HCl (Apresoline) 10 mg Q4H PRN IV sbp >160 Last administered on 04/10/19 02:35; Admin Dose 10 MG; Start 03/29/19 at 14:00 Miscellaneous Information 1 ea NOTE XX ; Start 03/29/19 at 14:30 Glucose (Glutose) 15 gm Q15M PRN PO DECREASED GLUCOSE; Start 03/29/19 at 14:30 Glucose (Glutose) 22.5 gm Q15M PRN PO DECREASED GLUCOSE; Start 03/29/19 at 14:30 Dextrose (D50w Syringe) 25 ml Q15M PRN IV DECREASED GLUCOSE Last administered on 04/13/19 05:56; Admin Dose 25 ML; Start 03/29/19 at 14:30; Status Hold Dextrose (D50w Syringe) 50 ml Q15M PRN IV DECREASED GLUCOSE; Start 03/29/19 at 14:30 Glucagon (Glucagen) 1 mg Q15M PRN IM DECREASED GLUCOSE; Start 03/29/19 at 14:30 Glucose (Glutose) 15 gm Q15M PRN BUCCAL DECREASED GLUCOSE; Start 03/29/19 at 14:30 Albumin Human 100 ml @ 100 mls/hr WITH DIALYSIS PRN IV SBP <90 DURING DIALYSIS Last administered on 04/12/19 08:58; Admin Dose 100 MLS/HR; Start 03/29/19 at 17:00 Albuterol/ Ipratropium (Duoneb) 3 ml Q2H RESP THERAPY PRN HHN WHEEZING AND RESP DISTRESS Last administered on 04/09/19 08:52; Admin Dose 3 ML; Start 03/29/19 at 18:00 Lorazepam (Ativan) 0.5 mg Q4H PRN IV AGITATION Last administered on 04/02/19 03:55; Admin Dose 0.5 MG; Start 03/29/19 at 18:00 IV Flush (NS 10 ml) 10 ml Q8 PRN IV IV PROTOCOL; Start 03/29/19 at 18:00 Labetalol HCl (Labetalol) 10 mg Q4H PRN IV sbp >160; Start 03/30/19 at 09:00 Haloperidol (Haldol) 5 mg Q6H PRN IM agitation Last administered on 03/31/19 00:10; Admin Dose 5 MG; Start 03/30/19 at 10:00 Heparin Sodium (Porcine) (Heparin (1000 Units/ml)) 3,200 unit AFTER DIALYSIS CATHETER Last administered on 04/12/19 12:20; Admin Dose 3,200 UNIT; Start 03/30/19 at 17:00 Atorvastatin Calcium (Lipitor) 40 mg HS NGT Last administered on 04/14/19 21:49; Admin Dose 40 MG; Start 03/31/19 at 21:00 Baclofen (Lioresal) 10 mg BID GTB Last administered on 04/15/19 09:42; Admin Dose 10 MG; Start 03/31/19 at 21:00 Doxazosin Mesylate (Cardura) 2 mg DAILY NGT Last administered on 04/11/19 08:46; Admin Dose 2 MG; Start 03/31/19 at 14:30 Gabapentin (Neurontin) 100 mg QHS PO Last administered on 04/14/19 21:49; Admin Dose 100 MG; Start 03/31/19 at 21:00 Sertraline HCl (Zoloft) 25 mg HS NGT Last administered on 04/14/19 21:49; Admin Dose 25 MG; Start 03/31/19 at 21:00 Acetaminophen (Tylenol Liquid) 650 mg Q4H PRN PEG MILD PAIN(1-3)OR ELEVATED TEMP Last administered on 04/11/19 05:14; Admin Dose 650 MG; Start 03/31/19 at 16:00 Lactobacillus Acidophilus/ Rhamnosus (Culturelle) 1 cap TID GTB Last administered on 04/15/19 09:42; Admin Dose 1 CAP; Start 04/02/19 at 13:00 Epoetin [place]-epbx (Retacrit (Esrd)) 10,000 unit MoWeFr@1700 SC Last administered on 04/12/19 18:40; Admin Dose 10,000 UNIT; Start 04/03/19 at 19:30 Lansoprazole (Prevacid) 30 mg BID@0600,1800 GTB Last administered on 04/15/19 06:03; Admin Dose 30 MG; Start 04/04/19 at 18:00 Multivit/Ca Carb/ B Cmplx/FA/Prenat (Karena-Geovanni) 1 tab DAILY GTB Last administered on 04/15/19 09:43; Admin Dose 1 TAB; Start 04/04/19 at 11:30 Aspirin (Aspirin) 81 mg DAILY PO Last administered on 04/11/19 08:46; Admin Dose 81 MG; Start 04/05/19 at 09:00; Status Hold Clopidogrel Bisulfate (plaVIX) 75 mg DAILY GTB Last administered on 04/11/19 08:45; Admin Dose 75 MG; Start 04/07/19 at 09:00; Status Hold Quetiapine Fumarate (Seroquel) 50 mg BID GTB Last administered on 04/15/19 09:43; Admin Dose 50 MG; Start 04/07/19 at 09:00 Propofol 100 ml @ 2.097 mls/ hr Q12H PRN IV AGITATION Last administered on 04/08/19 11:39; Admin Dose 6.291 MLS/HR; Start 04/08/19 at 00:00 Fentanyl 100 ml @ 2.5 mls/hr TITRATE IV Last administered on 04/13/19 22:09; Admin Dose 5 MLS/HR; Start 04/08/19 at 00:00 Midazolam HCl 50 ml @ 1 mls/hr TITRATE PRN IV agitation Last administered on 04/14/19 07:12; Admin Dose 4 MLS/HR; Start 04/08/19 at 00:00 Norepinephrine 250 ml @ 1.875 mls/ hr TITRATE IV Last administered on 04/15/19 05:45; Admin Dose 1.875 MLS/HR; Start 04/08/19 at 00:00 Levetiracetam 100 ml @ 400 mls/hr Q12 IVPB Last administered on 04/15/19 09:41; Admin Dose 400 MLS/HR; Start 04/08/19 at 09:30 Nicardipine HCl 50 mg/Sodium Chloride 500 ml @ 50 mls/hr TITRATE IV ; Start 04/08/19 at 09:30 Mupirocin (Bactroban) 1 applic BID TOP Last administered on 04/15/19 09:42; Admin Dose 1 APPLIC; Start 04/09/19 at 21:00 Budesonide (Pulmicort (Neb)) 0.5 mg BID RESP THERAPY HHN Last administered on 04/15/19 10:08; Admin Dose 0.5 MG; Start 04/12/19 at 09:00 Amikacin Sulfate (Amikacin Iv Per Pharmacy) AMIKACIN PER PHARMACY NOTE XX ; Start 04/12/19 at 10:30 Metronidazole 100 ml @ 100 mls/hr Q8 IVPB Last administered on 04/15/19 05:40; Admin Dose 100 MLS/HR; Start 04/12/19 at 14:00 Carvedilol (Coreg) 12.5 mg BID NGT Last administered on 04/14/19 21:48; Admin Dose 12.5 MG; Start 04/12/19 at 21:00 Amikacin Sulfate 300 mg/Sodium Chloride 101.2 ml @ 101.2 mls/ hr AFTER DIALYSIS IVPB ; Start 04/13/19 at 09:00 Albuterol (Ventolin Hfa) 2 puff Q6H RESP THERAPY INH Last administered on 04/15/19 07:52; Admin Dose 2 PUFF; Start 04/12/19 at 20:00 Ipratropium [place] (Atrovent Hfa) 4 puff Q6H RESP THERAPY INH Last administered on 04/15/19 07:52; Admin Dose 4 PUFF; Start 04/12/19 at 20:00 Dextrose 1,000 ml @ 50 mls/hr Q20H IV Last administered on 04/13/19 09:08; Admin Dose 75 MLS/HR; Start 04/13/19 at 09:00; Status Hold Metoclopramide HCl (Reglan) 5 mg Q6 IV Last administered on 04/15/19 05:41; Admin Dose 5 MG; Start 04/13/19 at 12:00 Insulin Aspart (Novolog Insulin Pen) NOVOLOG *MILD* ALGORI... Q4 SC Last administered on 04/15/19 09:44; Admin Dose 1 UNIT; Start 04/13/19 at 09:00 PEE CHAIDEZ NP Apr 15, 2019 12:10
--- NOTE | 2019-04-15 15:36 | CONS ---
Consult Date/Type/Reason Admit Date/Time Mar 29, 2019 at 13:16 Initial Consult Date 04/07/19 Type of Consultation: cv Requesting Provider: LILLIAN ZHANG MD Date/Time of Note DATE: 04/15/19 TIME: 15:34 Subjective Interventional cardiology follow-up progress note Subjective: Discussed with the staff and Telemetry was reviewed. pt remains intubated no vent pt is hypotensive again and back on pressors Patient nonverbal. objective: General: s/p intubation on the ventilator HEENT: NC/AT. pupils are equal. round. NECK:. no stridor. CV: RRR. systolic murmur; no gallop or rubs. PULM: + rhonchi. GI: SOFT, NT, ND, no rebound or guarding s/pPEG Extremity: trace B/L LE edema. no clubbing. neuro: opens his eyes Psych: calm the moment rectal: deferred : normal ECHO 04/09/19 REVIEWED Normal left ventricular systolic function. Normal left ventricular cavity size. Mild concentric left ventricular hypertrophy. Ejection fraction is visually estimated at 55 %. Tissue Doppler/Mitral Doppler indices are consistent with impaired relaxation (Stage I diastolic dysfunction). Mild mitral leaflet calcification. Mild mitral annular calcification. Mild mitral valve regurgitation. No significant aortic stenosis or insufficiency. Aortic cusps appear mildly calcified. Normal appearance of the tricuspid valve. The estimated Peak RVSP is 25 mmHg. There is trace tricuspid regurgitation. cxr 04/09/19 Persistent small left greater than right pleural effusions with associated atelectasis/infiltrate. CXR . Appropriate position of central lines and endotracheal tube. 2. Bilateral perihilar and basilar airspace opacities representing pulmonary edema or infection. 3. Small left pleural effusion. Objective Vitals Vital Signs Date Temp Pulse Resp B/P (MAP) Pulse Ox O2 O2 Flow FiO2 Time Delivery Rate 04/15/19 82 20 100 60 15:03 04/15/19 162/76 08:45 (104) 04/15/19 Mechanical 08:30 Ventilator 04/15/19 97.6 08:00 Intake and Output 04/14/19 04/14/19 04/15/19 1515:00 23:00 07:00 IntakeIntake Total 690.189 ml 467.729 ml 203.358 ml OutputOutput Total 0 ml 30 ml 145 ml BalanceBalance 690.189 ml 437.729 ml 58.358 ml Results/Medications Result Diagram: 04/15/19 0430 04/15/19 0430 Results 24 hrs Laboratory Tests Test 04/14/19 17:02 04/14/19 21:45 04/15/19 00:44 04/15/19 04:30 Bedside Glucose 117 166 197 White Blood Count 11.1 #H Red Blood Count 3.01 L Hemoglobin 8.8 L Hematocrit 27.0 L Mean Corpuscular Volume 89.7 Mean Corpuscular 29.2 Hemoglobin Mean Corpuscular 32.6 Hemoglobin Concent Red Cell Distribution 17.1 H Width Platelet Count 222 # Mean Platelet Volume 10.8 H Immature Granulocytes % 0.500 H Neutrophils % Segmented Neutrophils 66 % (Manual) Band Neutrophils % 19 H (Manual) Lymphocytes % Lymphocytes % (Manual) 5 L Reactive Lymphocytes 5 H % (Manual) Monocytes % Monocytes % (Manual) 2 Eosinophils % Basophils % Myelocytes % (Manual) 3 H Nucleated Red Blood 0.0 Cells % Immature Granulocytes # 0.060 H Neutrophils # Neutrophils # (Manual) 7.6 H Band Neutrophils # 2.1 H Lymphocytes (Manual) 0.5 L Lymphocytes # Reactive Lymphocytes # 0.5 H Monocytes # Monocytes # (Manual) 0.2 L Eosinophils # Basophils # Myelocytes # 0.3 H Nucleated Red Blood Cells # Platelet Estimate NORMAL Polychromasia 3+ Poikilocytosis 2+ Anisocytosis 1+ Sodium Level 136 Potassium Level 3.6 Chloride Level 103 Carbon Dioxide Level 23 Anion Gap 10 Blood Urea Nitrogen 21 H Creatinine 6.13 H Est Glomerular Filtrat 9 L Rate mL/min Glucose Level 151 Calcium Level 9.0 Phosphorus Level 4.0 Magnesium Level 1.9 Test 04/15/19 05:39 04/15/19 09:38 04/15/19 13:21 Bedside Glucose 159 150 148 Home Meds Reported Medications Bisacodyl (Dulcolax) 10 Mg Supp.rect, 10 MG RC DAILY PRN for CONSTIPATION, SUPP.RECT 03/29/19 Sodium Phosphate,Taliaferro-Dibasic (Enema Ready To Use) 133 Ml Enema, 133 ML RC EVERY 2 DAYS PRN for CONSTIPATION, ENEMA 03/29/19 Acetaminophen* (Acetaminophen*) 650 Mg Tablet, 650 MG GTB Q4 PRN for MILD PAIN LEVEL 1-3, #30 TAB AND FEVER 03/29/19 Acetaminophen* (Acetaminophen*) 500 MG Extra Strength Tablet, 1000 MG GTB Q4H PRN for MODERATE PAIN LEVEL 4-6, TAB 03/29/19 Acetaminophen* (Acetaminophen*) 500 MG Extra Strength Tablet, 1000 MG GTB BID PRN for GENERAL BODY PAIN, TAB 03/29/19 Amino Acids/Protein Hydrolys (Pro-Stat Awc Liquid) 30 Ml Liquid, 30 ML GTB DAILY SUGAR FREE 03/29/19 Multivitamin* (Daily Value*) 1 Each Tablet, 1 TAB GTB DAILY, TAB 03/29/19 Ascorbic Acid* (Vitamin C*) 500 Mg Capsule.sa, 500 MG GTB DAILY, CAP 03/29/19 Ferrous Sulfate (Ferrous Sulfate) 300 Mg/5 Ml Liquid, 325 MG GTB DAILY 03/29/19 Cran/Vitc/Mannose/Inulin/Brom (Uti-Stat Liquid) 3,875 Mg/30 Ml Liquid, 3875 MG GTB DAILY 03/29/19 Cranberry Extract (Cranberry) 425 Mg Capsule, 425 MG GTB DAILY, CAP 03/29/19 Insulin Glulisine (Apidra Solostar) 100 Unit/1 Ml Insuln.pen, 4 UNIT SQ TIDM A, #1 TUB 03/29/19 Insulin Glargine,Hum.rec.anlog (Basaglar Kwikpen U-100) 100 Unit/1 Ml Insuln.pen, 25 UNIT SC QHS, EA 03/29/19 Insulin Regular, Human (Humulin R) 100 Unit/1 Ml Vial, 0 IJ AC MEALS AND BEDTIME, VIAL 0-150 = 0 UNIT 151-200 = 1 UNIT 201-250 = 2 UNITS 251-300 = 3 UNITS 301-350 = 4 UNITS 351-400 = 5 UNITS OVER 400 GIVE 6 UNITS UNDER 70 OR OVER 400 NOTIFY 03/29/19 Sertraline Hcl* (Sertraline Hcl*) 25 Mg Tablet, 25 MG GTB DAILY, #30 TAB 03/29/19 Lorazepam* (Ativan*) 0.5 Mg Tablet, 0.5 MG GTB DAILY PRN for ANXIETY, #30 TAB 03/29/19 Quetiapine Fumarate* (Seroquel*) 25 Mg Tablet, 25 MG GTB HS, #30 TAB 03/29/19 Lorazepam* (Lorazepam*) 0.5 Mg Tablet, 0.5 MG GTB DAILY PRN for ANXIETY, TAB 03/29/19 Clonidine Hcl* (Clonidine Hcl*) 0.1 Mg Tab, 0.1 MG GTB DAILY PRN for ELEVATED BLOOD PRESSURE, TAB SBP >160 03/29/19 Azelastine Hcl* (Azelastine Hcl*) 137 Mcg/0.137 Ml Ebony.pump, 2 SPRAYS NASAL BID, #1 EA TO EACH NOSTRIL 03/29/19 Carvedilol* (Carvedilol*) 12.5 Mg Tablet, 12.5 MG GTB BID, #60 TAB 03/29/19 Diltiazem Hcl* (Cardizem CD*) 240 Mg Cap.sr.24h, 240 MG GTB DAILY, #30 CAP 03/29/19 Ergocalciferol (Vitamin D2) (VITAMIN D2) 50,000 Unit Capsule, 26856 UNIT GTB EVERY MONDAY, CAP 03/29/19 Hydralazine Hcl* (Hydralazine Hcl*) 50 Mg Tab, 50 MG GTB TID PRN for ELEVATED BLOOD PRESSURE, #60 TAB 03/29/19 Losartan Potassium* (Losartan Potassium*) 100 Mg Tablet, 100 MG GTB DAILY, TAB 03/29/19 Metoprolol Succinate* (Toprol XL*) 25 Mg Tab.sr.24h, 25 MG GTB DAILY, #30 TAB 03/29/19 Linagliptin (TRADJENTA) 5 Mg Tablet, 5 MG GTB DAILY, TAB 03/29/19 Albuterol Sulfate* (Proair HFA*) 8.5 Gm Hfa.aer.ad, 2 PUFF INH Q4H PRN for WHEEZING AND SOB, #1 INHALER 03/29/19 Ranitidine Hcl* (Ranitidine Hcl*) 300 Mg Tablet, 300 MG GTB HS, #30 TAB 03/29/19 Levetiracetam* (Keppra*) 500 Mg Tablet, 500 MG GTB BID, TAB 03/29/19 Gabapentin* (Gabapentin*) 100 Mg Capsule, 100 MG GTB QHS, #90 CAP 03/29/19 Doxazosin Mesylate* (Doxazosin Mesylate*) 2 Mg Tablet, 2 MG GTB HS, TAB 03/29/19 Docusate Sodium* (Dok*) 100 Mg Tablet, 100 MG GTB BID, #60 CAP 03/29/19 Cyanocobalamin (Vitamin B-12) (Cyanocobalamin Injection) 1,000 Mcg/1 Ml Vial, 1000 MCG IJ EVERY MONDAY, VIAL 03/29/19 Clopidogrel Bisulfate (Clopidogrel) 75 Mg Tablet, 75 MG GTB DAILY, #30 TAB 03/29/19 Calcium Carbonate (Oysco-500) 500 Mg Tablet, 500 MG GTB DAILY, TAB 03/29/19 Baclofen* (Baclofen*) 10 Mg Tablet, 10 MG GTB BID, TAB 03/29/19 Atorvastatin* (Atorvastatin*) 40 Mg Tablet, 40 MG GTB QHS, #30 TAB 03/29/19 Aspirin (Low Dose Aspirin) 81 Mg Tablet.dr, 81 MG GTB DAILY, #30 TAB 03/29/19 Medications Current Medications IV Flush (NS 3 ml) 3 ml PER PROTOCOL IV ; Start 03/29/19 at 13:30 Ondansetron HCl (Zofran Inj) 4 mg Q6H PRN IV NAUSEA/VOMITING Last administered on 04/07/19at 18:53; Admin Dose 4 MG; Start 03/29/19 at 13:30 Acetaminophen (Tylenol Tab) 650 mg Q6H PRN PO .PAIN 1-3 OR TEMP Last administered on 03/31/19at 05:48; Admin Dose 650 MG; Start 03/29/19 at 13:30 Hydralazine HCl (Apresoline) 10 mg Q4H PRN IV sbp >160 Last administered on 04/10/19at 02:35; Admin Dose 10 MG; Start 03/29/19 at 14:00 Miscellaneous Information 1 ea NOTE XX ; Start 03/29/19 at 14:30 Glucose (Glutose) 15 gm Q15M PRN PO DECREASED GLUCOSE; Start 03/29/19 at 14:30 Glucose (Glutose) 22.5 gm Q15M PRN PO DECREASED GLUCOSE; Start 03/29/19 at 14:30 Dextrose (D50w Syringe) 25 ml Q15M PRN IV DECREASED GLUCOSE Last administered on 04/13/19at 05:56; Admin Dose 25 ML; Start 03/29/19 at 14:30; Status Hold Dextrose (D50w Syringe) 50 ml Q15M PRN IV DECREASED GLUCOSE; Start 03/29/19 at 14:30 Glucagon (Glucagen) 1 mg Q15M PRN IM DECREASED GLUCOSE; Start 03/29/19 at 14:30 Glucose (Glutose) 15 gm Q15M PRN BUCCAL DECREASED GLUCOSE; Start 03/29/19 at 14:30 Albumin Human 100 ml @ 100 mls/hr WITH DIALYSIS PRN IV SBP <90 DURING DIALYSIS Last administered on 04/12/19 08:58; Admin Dose 100 MLS/HR; Start 03/29/19 at 17:00 Albuterol/ Ipratropium (Duoneb) 3 ml Q2H RESP THERAPY PRN HHN WHEEZING AND RESP DISTRESS Last administered on 04/09/19 08:52; Admin Dose 3 ML; Start 03/29/19 at 18:00 Lorazepam (Ativan) 0.5 mg Q4H PRN IV AGITATION Last administered on 04/02/19 03:55; Admin Dose 0.5 MG; Start 03/29/19 at 18:00 IV Flush (NS 10 ml) 10 ml Q8 PRN IV IV PROTOCOL; Start 03/29/19 at 18:00 Labetalol HCl (Labetalol) 10 mg Q4H PRN IV sbp >160; Start 03/30/19 at 09:00 Haloperidol (Haldol) 5 mg Q6H PRN IM agitation Last administered on 03/31/19 00:10; Admin Dose 5 MG; Start 03/30/19 at 10:00 Heparin Sodium (Porcine) (Heparin (1000 Units/ml)) 3,200 unit AFTER DIALYSIS CATHETER Last administered on 04/12/19 12:20; Admin Dose 3,200 UNIT; Start 03/30/19 at 17:00 Atorvastatin Calcium (Lipitor) 40 mg HS NGT Last administered on 04/14/19 21:49; Admin Dose 40 MG; Start 03/31/19 at 21:00 Baclofen (Lioresal) 10 mg BID GTB Last administered on 04/15/19 09:42; Admin Dose 10 MG; Start 03/31/19 at 21:00 Doxazosin Mesylate (Cardura) 2 mg DAILY NGT Last administered on 04/11/19 08:4 6; Admin Dose 2 MG; Start 03/31/19 at 14:30 Gabapentin (Neurontin) 100 mg QHS PO Last administered on 04/14/19 21:49; Admin Dose 100 MG; Start 03/31/19 at 21:00 Sertraline HCl (Zoloft) 25 mg HS NGT Last administered on 04/14/19 21:49; Admin Dose 25 MG; Start 03/31/19 at 21:00 Acetaminophen (Tylenol Liquid) 650 mg Q4H PRN PEG MILD PAIN(1-3)OR ELEVATED TEMP Last administered on 04/11/19 05:14; Admin Dose 650 MG; Start 03/31/19 at 16:00 Lactobacillus Acidophilus/ Rhamnosus (Culturelle) 1 cap TID GTB Last administered on 04/15/19 13:22; Admin Dose 1 CAP; Start 04/02/19 at 13:00 Epoetin [place]-epbx (Retacrit (Esrd)) 10,000 unit MoWeFr@1700 SC Last administered on 04/12/19 18:40; Admin Dose 10,000 UNIT; Start 04/03/19 at 19:30 Lansoprazole (Prevacid) 30 mg BID@0600,1800 GTB Last administered on 04/15/19 06:03; Admin Dose 30 MG; Start 04/04/19 at 18:00 Multivit/Ca Carb/ B Cmplx/FA/Prenat (Karena-Geovanni) 1 tab DAILY GTB Last administered on 04/15/19 09:43; Admin Dose 1 TAB; Start 04/04/19 at 11:30 Aspirin (Aspirin) 81 mg DAILY PO Last administered on 04/11/19 08:46; Admin Dose 81 MG; Start 04/05/19 at 09:00; Status Hold Quetiapine Fumarate (Seroquel) 50 mg BID GTB Last administered on 04/15/19 09:43; Admin Dose 50 MG; Start 04/07/19 at 09:00 Propofol 100 ml @ 2.097 mls/ hr Q12H PRN IV AGITATION Last administered on 04/08/19 11:39; Admin Dose 6.291 MLS/HR; Start 04/08/19 at 00:00 Fentanyl 100 ml @ 2.5 mls/hr TITRATE IV Last administered on 04/13/19 22:09; Admin Dose 5 MLS/HR; Start 04/08/19 at 00:00 Midazolam HCl 50 ml @ 1 mls/hr TITRATE PRN IV agitation Last administered on 04/14/19 07:12; Admin Dose 4 MLS/HR; Start 04/08/19 at 00:00 Norepinephrine 250 ml @ 1.875 mls/ hr TITRATE IV Last administered on 04/15/19 05:45; Admin Dose 1.875 MLS/HR; Start 04/08/19 at 00:00 Levetiracetam 100 ml @ 400 mls/hr Q12 IVPB Last administered on 04/15/19 09:41; Admin Dose 400 MLS/HR; Start 04/08/19 at 09:30 Nicardipine HCl 50 mg/Sodium Chloride 500 ml @ 50 mls/hr TITRATE IV ; Start 04/08/19 at 09:30 Mupirocin (Bactroban) 1 applic BID TOP Last administered on 04/15/19 09:42; Admin Dose 1 APPLIC; Start 04/09/19 at 21:00 Budesonide (Pulmicort (Neb)) 0.5 mg BID RESP THERAPY HHN Last administered on 04/15/19 10:08; Admin Dose 0.5 MG; Start 04/12/19 at 09:00 Amikacin Sulfate (Amikacin Iv Per Pharmacy) AMIKACIN PER PHARMACY NOTE XX ; Start 04/12/19 at 10:30 Metronidazole 100 ml @ 100 mls/hr Q8 IVPB Last administered on 04/15/19 13:22; Admin Dose 100 MLS/HR; Start 04/12/19 at 14:00 Carvedilol (Coreg) 12.5 mg BID NGT Last administered on 04/14/19 21:48; Admin Dose 12.5 MG; Start 04/12/19 at 21:00 Amikacin Sulfate 300 mg/Sodium Chloride 101.2 ml @ 101.2 mls/ hr AFTER DIALYSIS IVPB ; Start 04/13/19 at 09:00 Albuterol (Ventolin Hfa) 2 puff Q6H RESP THERAPY INH Last administered on 04/15/19 13:06; Admin Dose 2 PUFF; Start 04/12/19 at 20:00 Ipratropium Ralph (Atrovent Hfa) 4 puff Q6H RESP THERAPY INH Last administered on 04/15/19 13:07; Admin Dose 4 PUFF; Start 04/12/19 at 20:00 Dextrose 1,000 ml @ 50 mls/hr Q20H IV Last administered on 04/13/19 09:08; Admin Dose 75 MLS/HR; Start 04/13/19 at 09:00; Status Hold Metoclopramide HCl (Reglan) 5 mg Q6 IV Last administered on 04/15/19 13:22; Admin Dose 5 MG; Start 04/13/19 at 12:00 Insulin Aspart (Novolog Insulin Pen) NOVOLOG *MILD* ALGORI... Q4 SC Last administered on 04/15/19 13:24; Admin Dose 1 UNIT; Start 04/13/19 at 09:00 Assessment/Plan Hospital Course (Demo Recall) 1. History of extensive coronary artery disease status post LA status post coronary bypass graft status post PCI 2. Status post recent CVA 3. End-stage renal disease on hemodialysis 4. Hypertension: labile . hypotensive now 5. Dyslipidemia 6. Severe encephalopathy 7. Dysphagia status post PEG placement 8. Severe anemia and history of GI bleed 9. Respiratory failure status post intubation on the vent now 10. Shock probably septic Recommendations: Cont with aspirin Plavix as soon as okay with GI wean off pressors if BP stable Respiratory care and ventilatory support will be continued. Weaning as tolerated will defer to the pulmonary team Hemodialysis as per renal. transfuse prn vent support for now Thank you for this referral. We will continue to follow along with you SEAN CROUCH MD [facility] SEAN CROUCH MD Apr 15, 2019 15:36
--- NOTE | 2019-04-15 16:59 | PN ---
Date/Time of Note Date/Time of Note DATE: 04/15/19 TIME: 16:52 Assessment/Plan VTE Prophylaxis Risk score (from Ns)>0 risk: 6 SCD applied (from Ns): Yes Pharmacological prophylaxis: other (scds) Lines/Catheters IV Catheter Type (from [facility]): Permacath Urinary Cath still in place: Yes Reason Cath still needed: other (indicate) (monitor output) Assessment/Plan Hospital Course Assessment/Plan Assessment: Severe anemia-improved- hgb- 7.9 04/10/19- no overt signs of GI bleed -EGD 04/03/2019 Moderate distal esophagitis. Gastrostomy tube in place. Gastritis -biopsies are negative for H. pylori. Duodenitis. Colonoscopy 04/03/2019 8 sessile polyp in the cecum. Snared and retrieved. -Tubular adenoma 6 mm sessile polyp ascending colon. Snared and retrieved. -Tubular adenoma 6 mm sessile polyp sigmoid. Snared and retrieved. -Tubular adenoma 20 mm sessile polyp sigmoid. Saline assisted lipectomy plus localization tattoo. Moderate-sized internal hemorrhoids. 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 -Replaced with 18 [place] gastrostomy tube Coronary artery disease status post CABG history Epilepsy BPH Query aspiration PNA Plan: plan to restart plavix Continue G-tube feeding, hold for residuals greater than 150 cc. Reglan 5mg IV q6hr has been started Patient seen in collaboration with Dr. Sanders Subjective: Course reviewed with nursing staff Patient interviewed and examined All labs, imaging and other results reviewed This post family meeting family agreed to give patient some time to see how much she wakes up being off sedation and the ability to be extubated. Plan for family conference on Monday. Patient currently on tube feeding at 10 mL/h to need close observation. PHYSICAL EXAMINATION: GENERAL: Well developed, well nourished, intubated and sedated SKIN: No lesions, g-tube in place NECK: Supple, no masses, thyroid normal CHEST: Inspection within normal limits. CARDIOVASCULAR: Heart: Regular rate and rhythm RESPIRATORY: Lungs clear to auscultation. GASTROINTESTINAL AND LIVER: Abdomen: Soft, G-tube in place, non-distended, no organomegaly, no ascites, no guarding, no rebound tenderness, normoactive bowel sounds. Rectal: Rectal tube in place GENITOURINARY: Male genitalia within normal limits. EXTREMITIES: No cyanosis, clubbing or edema. Result Diagram: 04/15/19 0430 04/15/19 0430 Results 24hrs Laboratory Tests Test 04/14/19 17:02 04/14/19 21:45 04/15/19 00:44 04/15/19 04:30 Bedside Glucose 117 166 197 White Blood Count 11.1 #H Red Blood Count 3.01 L Hemoglobin 8.8 L Hematocrit 27.0 L Mean Corpuscular Volume 89.7 Mean Corpuscular 29.2 Hemoglobin Mean Corpuscular 32.6 Hemoglobin Concent Red Cell Distribution 17.1 H Width Platelet Count 222 # Mean Platelet Volume 10.8 H Immature Granulocytes % 0.500 H Neutrophils % Segmented Neutrophils 66 % (Manual) Band Neutrophils % 19 H (Manual) Lymphocytes % Lymphocytes % (Manual) 5 L Reactive Lymphocytes 5 H % (Manual) Monocytes % Monocytes % (Manual) 2 Eosinophils % Basophils % Myelocytes % (Manual) 3 H Nucleated Red Blood 0.0 Cells % Immature Granulocytes # 0.060 H Neutrophils # Neutrophils # (Manual) 7.6 H Band Neutrophils # 2.1 H Lymphocytes (Manual) 0.5 L Lymphocytes # Reactive Lymphocytes # 0.5 H Monocytes # Monocytes # (Manual) 0.2 L Eosinophils # Basophils # Myelocytes # 0.3 H Nucleated Red Blood Cells # Platelet Estimate NORMAL Polychromasia 3+ Poikilocytosis 2+ Anisocytosis 1+ Sodium Level 136 Potassium Level 3.6 Chloride Level 103 Carbon Dioxide Level 23 Anion Gap 10 Blood Urea Nitrogen 21 H Creatinine 6.13 H Est Glomerular Filtrat 9 L Rate mL/min Glucose Level 151 Calcium Level 9.0 Phosphorus Level 4.0 Magnesium Level 1.9 Test 04/15/19 05:39 04/15/19 09:38 04/15/19 13:21 Bedside Glucose 159 150 148 Exam/Review of Systems Exam Vitals Vital Signs Date Temp Pulse Resp B/P (MAP) Pulse Ox O2 O2 Flow FiO2 Time Delivery Rate 04/15/19 82 20 100 60 15:03 04/15/19 154/83 12:15 (106) 04/15/19 98.7 Mechanical 12:00 Ventilator Intake and Output 7/704/14/19 04/15/19 1515:00 23:00 07:00 IntakeIntake Total 690.189 ml 467.729 ml 203.358 ml OutputOutput Total 0 ml 30 ml 145 ml BalanceBalance 690.189 ml 437.729 ml 58.358 ml Results Results 24hrs Laboratory Tests Test 04/14/19 17:02 04/14/19 21:45 04/15/19 00:44 04/15/19 04:30 Bedside Glucose 117 166 197 White Blood Count 11.1 #H Red Blood Count 3.01 L Hemoglobin 8.8 L Hematocrit 27.0 L Mean Corpuscular Volume 89.7 Mean Corpuscular 29.2 Hemoglobin Mean Corpuscular 32.6 Hemoglobin Concent Red Cell Distribution 17.1 H Width Platelet Count 222 # Mean Platelet Volume 10.8 H Immature Granulocytes % 0.500 H Neutrophils % Segmented Neutrophils 66 % (Manual) Band Neutrophils % 19 H (Manual) Lymphocytes % Lymphocytes % (Manual) 5 L Reactive Lymphocytes 5 H % (Manual) Monocytes % Monocytes % (Manual) 2 Eosinophils % Basophils % Myelocytes % (Manual) 3 H Nucleated Red Blood 0.0 Cells % Immature Granulocytes # 0.060 H Neutrophils # Neutrophils # (Manual) 7.6 H Band Neutrophils # 2.1 H Lymphocytes (Manual) 0.5 L Lymphocytes # Reactive Lymphocytes # 0.5 H Monocytes # Monocytes # (Manual) 0.2 L Eosinophils # Basophils # Myelocytes # 0.3 H Nucleated Red Blood Cells # Platelet Estimate NORMAL Polychromasia 3+ Poikilocytosis 2+ Anisocytosis 1+ Sodium Level 136 Potassium Level 3.6 Chloride Level 103 Carbon Dioxide Level 23 Anion Gap 10 Blood Urea Nitrogen 21 H Creatinine 6.13 H Est Glomerular Filtrat 9 L Rate mL/min Glucose Level 151 Calcium Level 9.0 Phosphorus Level 4.0 Magnesium Level 1.9 Test 04/15/19 05:39 04/15/19 09:38 04/15/19 13:21 Bedside Glucose 159 150 148 Medications Medication Current Medications IV Flush (NS 3 ml) 3 ml PER PROTOCOL IV ; Start 03/29/19 at 13:30 Ondansetron HCl (Zofran Inj) 4 mg Q6H PRN IV NAUSEA/VOMITING Last administered on 04/07/19at 18:53; Admin Dose 4 MG; Start 03/29/19 at 13:30 Acetaminophen (Tylenol Tab) 650 mg Q6H PRN PO .PAIN 1-3 OR TEMP Last administered on 03/31/19at 05:48; Admin Dose 650 MG; Start 03/29/19 at 13:30 Hydralazine HCl (Apresoline) 10 mg Q4H PRN IV sbp >160 Last administered on 04/10/19at 02:35; Admin Dose 10 MG; Start 03/29/19 at 14:00 Miscellaneous Information 1 ea NOTE XX ; Start 03/29/19 at 14:30 Glucose (Glutose) 15 gm Q15M PRN PO DECREASED GLUCOSE; Start 03/29/19 at 14:30 Glucose (Glutose) 22.5 gm Q15M PRN PO DECREASED GLUCOSE; Start 03/29/19 at 14:30 Dextrose (D50w Syringe) 25 ml Q15M PRN IV DECREASED GLUCOSE Last administered on 04/13/19at 05:56; Admin Dose 25 ML; Start 03/29/19 at 14:30; Status Hold Dextrose (D50w Syringe) 50 ml Q15M PRN IV DECREASED GLUCOSE; Start 03/29/19 at 14:30 Glucagon (Glucagen) 1 mg Q15M PRN IM DECREASED GLUCOSE; Start 03/29/19 at 14:30 Glucose (Glutose) 15 gm Q15M PRN BUCCAL DECREASED GLUCOSE; Start 03/29/19 at 14:30 Albumin Human 100 ml @ 100 mls/hr WITH DIALYSIS PRN IV SBP <90 DURING DIALYSIS Last administered on 04/12/19at 08:58; Admin Dose 100 MLS/HR; Start 03/29/19 at 17:00 Albuterol/ Ipratropium (Duoneb) 3 ml Q2H RESP THERAPY PRN HHN WHEEZING AND RESP DISTRESS Last administered on 04/09/19at 08:52; Admin Dose 3 ML; Start 03/29/19 at 18:00 Lorazepam (Ativan) 0.5 mg Q4H PRN IV AGITATION Last administered on 04/02/19at 03:55; Admin Dose 0.5 MG; Start 03/29/19 at 18:00 IV Flush (NS 10 ml) 10 ml Q8 PRN IV IV PROTOCOL; Start 03/29/19 at 18:00 Labetalol HCl (Labetalol) 10 mg Q4H PRN IV sbp >160; Start 03/30/19 at 09:00 Haloperidol (Haldol) 5 mg Q6H PRN IM agitation Last administered on 03/31/19 00:10; Admin Dose 5 MG; Start 03/30/19 at 10:00 Heparin Sodium (Porcine) (Heparin (1000 Units/ml)) 3,200 unit AFTER DIALYSIS CATHETER Last administered on 04/12/19 12:20; Admin Dose 3,200 UNIT; Start 03/30/19 at 17:00 Atorvastatin Calcium (Lipitor) 40 mg HS NGT Last administered on 04/14/19 21:49; Admin Dose 40 MG; Start 03/31/19 at 21:00 Baclofen (Lioresal) 10 mg BID GTB Last administered on 04/15/19 09:42; Admin Dose 10 MG; Start 03/31/19 at 21:00 Doxazosin Mesylate (Cardura) 2 mg DAILY NGT Last administered on 04/11/19 08:46; Admin Dose 2 MG; Start 03/31/19 at 14:30 Gabapentin (Neurontin) 100 mg QHS PO Last administered on 04/14/19 21:49; Admin Dose 100 MG; Start 03/31/19 at 21:00 Sertraline HCl (Zoloft) 25 mg HS NGT Last administered on 04/14/19 21:49; Admin Dose 25 MG; Start 03/31/19 at 21:00 Acetaminophen (Tylenol Liquid) 650 mg Q4H PRN PEG MILD PAIN(1-3)OR ELEVATED TEMP Last administered on 04/11/19 05:14; Admin Dose 650 MG; Start 03/31/19 at 16:00 Lactobacillus Acidophilus/ Rhamnosus (Culturelle) 1 cap TID GTB Last administered on 04/15/19 13:22; Admin Dose 1 CAP; Start 04/02/19 at 13:00 Epoetin [place]-epbx (Retacrit (Esrd)) 10,000 unit MoWeFr@1700 SC Last administered on 04/12/19 18:40; Admin Dose 10,000 UNIT; Start 04/03/19 at 19:30 Lansoprazole (Prevacid) 30 mg BID@0600,1800 GTB Last administered on 04/15/19 06:03; Admin Dose 30 MG; Start 04/04/19 at 18:00 Multivit/Ca Carb/ B Cmplx/FA/Prenat (Karena-Geovanni) 1 tab DAILY GTB Last administered on 04/15/19 09:43; Admin Dose 1 TAB; Start 04/04/19 at 11:30 Aspirin (Aspirin) 81 mg DAILY PO Last administered on 04/11/19 08:46; Admin Dose 81 MG; Start 04/05/19 at 09:00; Status Hold Quetiapine Fumarate (Seroquel) 50 mg BID GTB Last administered on 04/15/19 09:43; Admin Dose 50 MG; Start 04/07/19 at 09:00 Propofol 100 ml @ 2.097 mls/ hr Q12H PRN IV AGITATION Last administered on 04/08/19 11:39; Admin Dose 6.291 MLS/HR; Start 04/08/19 at 00:00 Fentanyl 100 ml @ 2.5 mls/hr TITRATE IV Last administered on 04/13/19 22:09; Admin Dose 5 MLS/HR; Start 04/08/19 at 00:00 Midazolam HCl 50 ml @ 1 mls/hr TITRATE PRN IV agitation Last administered on 04/14/19 07:12; Admin Dose 4 MLS/HR; Start 04/08/19 at 00:00 Norepinephrine 250 ml @ 1.875 mls/ hr TITRATE IV Last administered on 04/15/19 05:45; Admin Dose 1.875 MLS/HR; Start 04/08/19 at 00:00 Levetiracetam 100 ml @ 400 mls/hr Q12 IVPB Last administered on 04/15/19 09:41; Admin Dose 400 MLS/HR; Start 04/08/19 at 09:30 Nicardipine HCl 50 mg/Sodium Chloride 500 ml @ 50 mls/hr TITRATE IV ; Start 04/08/19 at 09:30 Mupirocin (Bactroban) 1 applic BID TOP Last administered on 04/15/19 09:42; Admin Dose 1 APPLIC; Start 04/09/19 at 21:00 Budesonide (Pulmicort (Neb)) 0.5 mg BID RESP THERAPY HHN Last administered on 04/15/19 10:08; Admin Dose 0.5 MG; Start 04/12/19 at 09:00 Amikacin Sulfate (Amikacin Iv Per Pharmacy) AMIKACIN PER PHARMACY NOTE XX ; Start 04/12/19 at 10:30 Metronidazole 100 ml @ 100 mls/hr Q8 IVPB Last administered on 04/15/19 13:22; Admin Dose 100 MLS/HR; Start 04/12/19 at 14:00 Carvedilol (Coreg) 12.5 mg BID NGT Last administered on 04/14/19 21:48; Admin Dose 12.5 MG; Start 04/12/19 at 21:00 Amikacin Sulfate 300 mg/Sodium Chloride 101.2 ml @ 101.2 mls/ hr AFTER DIALYSIS IVPB ; Start 04/13/19 at 09:00 Albuterol (Ventolin Hfa) 2 puff Q6H RESP THERAPY INH Last administered on 04/15/19 13:06; Admin Dose 2 PUFF; Start 04/12/19 at 20:00 Ipratropium [place] (Atrovent Hfa) 4 puff Q6H RESP THERAPY INH Last administered on 04/15/19 13:07; Admin Dose 4 PUFF; Start 04/12/19 at 20:00 Dextrose 1,000 ml @ 50 mls/hr Q20H IV Last administered on 04/13/19 09:08; Admin Dose 75 MLS/HR; Start 04/13/19 at 09:00; Status Hold Metoclopramide HCl (Reglan) 5 mg Q6 IV Last administered on 04/15/19 13:22; A dmin Dose 5 MG; Start 04/13/19 at 12:00 Insulin Aspart (Novolog Insulin Pen) NOVOLOG *MILD* ALGORI... Q4 SC Last administered on 04/15/19 13:24; Admin Dose 1 UNIT; Start 04/13/19 at 09:00 JUNE LEE Apr 15, 2019 16:59
--- NOTE | 2019-04-15 17:24 | STROKE ---
Date/Time of Note Date/Time of Note DATE: 04/15/19 TIME: 19:13 Patient Information General Arrival Date Age 58 Gender male Weight 69.9 kg POC Glucose Glucose Result Bedside Glucose - 72 Hours Test 04/12/19 17:59 04/13/19 00:04 04/13/19 05:52 04/13/19 06:12 Bedside 88 82 68 117 Glucose mg/dL (70-220) mg/dL (70-220) mg/dL (70-220) mg/dL (70-220) L Test 04/13/19 06:29 04/13/19 09:07 04/13/19 12:38 04/13/19 17:14 Bedside 118 85 100 163 Glucose mg/dL (70-220) mg/dL (70-220) mg/dL (70-220) mg/dL (70-220) Test 04/13/19 21:33 04/14/19 00:52 04/14/19 05:38 04/14/19 08:22 Bedside 192 149 140 143 Glucose mg/dL (70-220) mg/dL (70-220) mg/dL (70-220) mg/dL (70-220) Test 04/14/19 13:32 04/14/19 17:02 04/14/19 21:45 04/15/19 00:44 Bedside 110 117 166 197 Glucose mg/dL (70-220) mg/dL (70-220) mg/dL (70-220) mg/dL (70-220) Test 04/15/19 05:39 04/15/19 09:38 04/15/19 13:21 Bedside 159 150 148 Glucose mg/dL (70-220) mg/dL (70-220) mg/dL (70-220) Vital Signs Vital Signs Vital Signs Date Temp Pulse Resp B/P (MAP) Pulse Ox O2 O2 Flow FiO2 Time Delivery Rate 04/15/19 65 18 94 60 16:59 04/15/19 154/83 12:15 (106) 04/15/19 98.7 Mechanical 12:00 Ventilator Patient History Current Medications Allergies: Coded Allergies: No Known Drug Allergies (Unverified Allergy, Unknown, 05/31/18) NIH Stroke Scale NIH Stroke Scale Date/Time Recorded DATE: 04/15/19 TIME: 19:13 Submitted By Zunilda M Hampton t-PA Imaging Review Date/Time Imaging Reviewed DATE: 04/15/19 TIME: 19:13 t-PA Administration Weight 69.9 kg Recommedation submitted by Zunilda Bass Recommendations Disposition 58 M c/ reported Hx of previous stroke, ESRD, multiple medical problems includin g chronic encephalopathy. Initially admitted with delirium due to multiple issues including hypotension and acute respiratory failure. Followed by neurology service. Transient worsening last week thought to be associated with aspiration. Improved with medical management but remained intubated. HCT showed no acute process. Pt improving with medical management until he had recurrent episode today, again of transient worsening and less responsive. Episode has since resolved and pt is now at his previous baseline. Repeat HCT shows no acute alex P: MRI brain as concern remains for recurrent acute [employer] ischemic event Continued supportive care/medical management per primary team Continue holding sedating medications Neurology to follow ZUNILDA BASS MD Apr 15, 2019 17:24
[2019-04-15] MEDS: ALBUMIN HUMAN 25% 100 ML IV PRN (17:39)
[2019-04-15] MEDS: HEPARIN 1000 UNITS/ML 10 ML INJ CATHETER SCH (20:43)
[2019-04-15] MEDS ORDERED: [UNRECOGNIZED DRUG - OTHER] XX SCH (21:00)
[2019-04-15] MEDS: ATORVASTATIN 40 MG TAB NGT SCH (21:03)
[2019-04-15] MEDS: GABAPENTIN 100 MG CAP PO SCH (21:04)
[2019-04-15] MEDS: SERTRALINE 50 MG TAB NGT SCH (21:04)
[2019-04-15] MEDS: EPOETIN ALFA-EPBX (ESRD) 10,000 UNIT/ML VIAL SC SCH (21:11)
[2019-04-15] MEDS: AMIKACIN 300 MG in SOD CHLORIDE 0.9% 100 ML IVPB SCH (22:09)
[2019-04-16] VITALS (60 sets, daily range): BP systolic 80–210; BP diastolic 47–93; PULSE 62–102; RESP 0–24
[2019-04-16] MEDS: METOCLOPRAMIDE 10 MG INJ IV SCH ×5 (00:27→23:48)
[2019-04-16] MEDS: INSULIN ASPART [NOVOLOG] 3 ML PEN SC SCH ×6 (00:38→21:24)
[2019-04-16] MEDS: ALBUTEROL HFA 8 GM INHALER INH SCH ×4 (01:42→19:11)
[2019-04-16] MEDS: IPRATROPIUM (HFA) 12.9 GM INHALER INH SCH ×4 (01:42→19:11)
[2019-04-16] MEDS: LANSOPRAZOLE 30 MG CAP GTB SCH ×2 (05:32→18:19)
[2019-04-16] MEDS: metroNIDAZOLE 500 MG/NS (PMX) 100 ML IVPB SCH ×3 (05:32→21:15)
[2019-04-16] MEDS: BUDESONIDE (NEB) 0.5MG/2ML AMP HHN SCH ×2 (08:27→19:11)
--- NOTE | 2019-04-16 08:30 | PN ---
Date/Time of Note Date/Time of Note DATE: 04/16/19 TIME: 08:30 Assessment/Plan VTE Prophylaxis Risk score (from Nsg)>0 risk: 9 SCD applied (from Nsg): Yes Pharmacological prophylaxis: other Lines/Catheters IV Catheter Type (from Nrsg): PERMACATH Urinary Cath still in place: Yes Reason Cath still needed: terminal illness/intractable pain Assessment/Plan Assessment/Plan 1. Acute hypoxic respiratory failure - weaning down FIO2 as tolerated. Once tolerating at least 50% can take to MRI - Pulm on board for vent management. s/p intubation on 04/08/19. Appreciate co nsultation 2. Septic shock, intermittent - off pressor support and now hypertensive due to agitation - Most likely secondary to aspiration pneumonia - ID on board and appreciate recommendations. continue on current IV antibiotics 3. HCAP/Aspiration Pneumonia - Pulm on board and appreciate recommendations - ID on board for antibiotic management 4. Acute on chronic encephalopathy - remains intubate and agitated off sedation - Neurology consultation appreciated - repeat MRI when stable on vent 5. Anemia - stable - Hgb stable - GI consultation appreciated and EGD revealed moderate distal esophagitis and gastritis and duodenitis. Colonoscopy showed internal hemorrhoids. Will need repeat colonoscopy in 6 months - plavix restarted and will monitor for any reno bleeding 6. End-stage renal disease on hemodialysis - Nephrology on board and appreciate consultation. Continue HD 7. Coronary artery disease status post CABG history - continue home medications - continue Plavix and will restart aspirin if no further bleeding while on Plavix 8. Epilepsy - Continue Keppra 9. History of CVA with residual left-sided deficit and more recent CVA - Patient reportedly had a new stroke recently at [facility] which is the cause of patient's current encephalopathic state - Neurology consultation appreciated 10. BPH 11. Disposition - Continue monitoring in ICU while requiring vent support and weaning as tolerated. Plans for MRI once stable. Family meeting scheduled for tomorrow >35 minutes of critical care time spent with patient. Result Diagram: 04/16/19 0430 04/16/19 0430 Results 24hrs Laboratory Tests Test 04/15/19 09:38 04/15/19 13:21 04/15/19 17:23 04/15/19 21:02 Bedside Glucose 150 148 134 117 Test 04/16/19 00:33 04/16/19 04:30 04/16/19 05:34 Bedside Glucose 144 140 White Blood Count 12.2 H Red Blood Count 2.87 L Hemoglobin 8.4 L Hematocrit 26.1 L Mean Corpuscular Volume 90.9 Mean Corpuscular 29.3 Hemoglobin Mean Corpuscular 32.2 Hemoglobin Concent Red Cell Distribution 17.2 H Width Platelet Count 257 Mean Platelet Volume 10.5 H Immature Granulocytes % 0.800 H Neutrophils % 85.8 H Lymphocytes % 7.8 L Monocytes % 3.0 Eosinophils % 2.1 Basophils % 0.5 Nucleated Red Blood 0.0 Cells % Immature Granulocytes # 0.100 H Neutrophils # 10.4 H Lymphocytes # 1.0 Monocytes # 0.4 Eosinophils # 0.3 Basophils # 0.1 Nucleated Red Blood 0.0 Cells # Sodium Level 143 Potassium Level 3.7 Chloride Level 108 Carbon Dioxide Level 25 Anion Gap 10 Blood Urea Nitrogen 12 # Creatinine 3.95 #H Glucose Level 144 Calcium Level 9.4 Phosphorus Level 3.0 Magnesium Level 2.0 Albumin 3.1 L Subjective 24 Hr Interval Summary Free Text/Dictation Patient is more awake and agitated. Moving RUE towards ETT but has not attempted to pull. No acute overnight events. MRI pending. Exam/Review of Systems Exam Vitals Vital Signs Date Temp Pulse Resp B/P (MAP) Pulse Ox O2 O2 Flow FiO2 Time Delivery Rate 04/16/19 94 14 115/61 97 Mechanical 06:00 (79) Ventilator 04/16/19 60 05:36 04/16/19 98.2 04:00 Intake and Output 04/15/19 04/15/19 04/16/19 1515:00 23:00 07:00 IntakeIntake Total 326.825 ml 455.325 ml 190 ml OutputOutput Total 25 ml 3375 ml 275 ml BalanceBalance 301.825 ml -2919.675 ml -85 ml Exam General: Patient is intubated. opens eyes to name but not following commands Head: Normocephalic atraumatic Eyes: EOMI, pupils reactive to light Neck: Supple, nontender, midline Respiratory: Clear to auscultation bilaterally. diminished. no wheezing appreciated Cardiovascular: regular rhythm, tachycardia, no obvious murmurs Gastrointestinal: soft, non-tender to palpation, bowel sounds heard. Skin: No new skin lesions Results Results 24hrs Laboratory Tests Test 04/15/19 09:38 04/15/19 13:21 04/15/19 17:23 04/15/19 21:02 Bedside Glucose 150 148 134 117 Test 04/16/19 00:33 04/16/19 04:30 04/16/19 05:34 Bedside Glucose 144 140 White Blood Count 12.2 H Red Blood Count 2.87 L Hemoglobin 8.4 L Hematocrit 26.1 L Mean Corpuscular Volume 90.9 Mean Corpuscular 29.3 Hemoglobin Mean Corpuscular 32.2 Hemoglobin Concent Red Cell Distribution 17.2 H Width Platelet Count 257 Mean Platelet Volume 10.5 H Immature Granulocytes % 0.800 H Neutrophils % 85.8 H Lymphocytes % 7.8 L Monocytes % 3.0 Eosinophils % 2.1 Basophils % 0.5 Nucleated Red Blood 0.0 Cells % Immature Granulocytes # 0.100 H Neutrophils # 10.4 H Lymphocytes # 1.0 Monocytes # 0.4 Eosinophils # 0.3 Basophils # 0.1 Nucleated Red Blood 0.0 Cells # Sodium Level 143 Potassium Level 3.7 Chloride Level 108 Carbon Dioxide Level 25 Anion Gap 10 Blood Urea Nitrogen 12 # Creatinine 3.95 #H Glucose Level 144 Calcium Level 9.4 Phosphorus Level 3.0 Magnesium Level 2.0 Albumin 3.1 L Medications Medication Current Medications IV Flush (NS 3 ml) 3 ml PER PROTOCOL IV ; Start 03/29/19 at 13:30 Ondansetron HCl (Zofran Inj) 4 mg Q6H PRN IV NAUSEA/VOMITING Last administered on 04/07/19at 18:53; Admin Dose 4 MG; Start 03/29/19 at 13:30 Acetaminophen (Tylenol Tab) 650 mg Q6H PRN PO .PAIN 1-3 OR TEMP Last administered on 03/31/19at 05:48; Admin Dose 650 MG; Start 03/29/19 at 13:30 Hydralazine HCl (Apresoline) 10 mg Q4H PRN IV sbp >160 Last administered on 04/10/19at 02:35; Admin Dose 10 MG; Start 03/29/19 at 14:00 Miscellaneous Information 1 ea NOTE XX ; Start 03/29/19 at 14:30 Glucose (Glutose) 15 gm Q15M PRN PO DECREASED GLUCOSE; Start 03/29/19 at 14:30 Glucose (Glutose) 22.5 gm Q15M PRN PO DECREASED GLUCOSE; Start 03/29/19 at 14:30 Dextrose (D50w Syringe) 25 ml Q15M PRN IV DECREASED GLUCOSE Last administered on 04/13/19at 05:56; Admin Dose 25 ML; Start 03/29/19 at 14:30; Status Hold Dextrose (D50w Syringe) 50 ml Q15M PRN IV DECREASED GLUCOSE; Start 03/29/19 at 14:30 Glucagon (Glucagen) 1 mg Q15M PRN IM DECREASED GLUCOSE; Start 03/29/19 at 14:30 Glucose (Glutose) 15 gm Q15M PRN BUCCAL DECREASED GLUCOSE; Start 03/29/19 at 14:30 Albumin Human 100 ml @ 100 mls/hr WITH DIALYSIS PRN IV SBP <90 DURING DIALYSIS Last administered on 04/15/19at 17:39; Admin Dose 100 MLS/HR; Start 03/29/19 at 17:00 Albuterol/ Ipratropium (Duoneb) 3 ml Q2H RESP THERAPY PRN HHN WHEEZING AND RESP DISTRESS Last administered on 04/09/19at 08:52; Admin Dose 3 ML; Start 03/29/19 at 18:00 Lorazepam (Ativan) 0.5 mg Q4H PRN IV AGITATION Last administered on 04/02/19 03:55; Admin Dose 0.5 MG; Start 03/29/19 at 18:00 IV Flush (NS 10 ml) 10 ml Q8 PRN IV IV PROTOCOL; Start 03/29/19 at 18:00 Labetalol HCl (Labetalol) 10 mg Q4H PRN IV sbp >160; Start 03/30/19 at 09:00 Haloperidol (Haldol) 5 mg Q6H PRN IM agitation Last administered on 03/31/19at 00:10; Admin Dose 5 MG; Start 03/30/19 at 10:00 Heparin Sodium (Porcine) (Heparin (1000 Units/ml)) 3,200 unit AFTER DIALYSIS CATHETER Last administered on 04/15/19at 20:43; Admin Dose 3,200 UNIT; Start 03/30/19 at 17:00 Atorvastatin Calcium (Lipitor) 40 mg HS NGT Last administered on 04/15/19 21:03; Admin Dose 40 MG; Start 03/31/19 at 21:00 Baclofen (Lioresal) 10 mg BID GTB Last administered on 04/15/19 21:04; Admin Dose 10 MG; Start 03/31/19 at 21:00 Doxazosin Mesylate (Cardura) 2 mg DAILY NGT Last administered on 04/11/19 08:46; Admin Dose 2 MG; Start 03/31/19 at 14:30 Gabapentin (Neurontin) 100 mg QHS PO Last administered on 04/15/19 21:04; Admin Dose 100 MG; Start 03/31/19 at 21:00 Sertraline HCl (Zoloft) 25 mg HS NGT Last administered on 04/15/19 21:04; Admin Dose 25 MG; Start 03/31/19 at 21:00 Acetaminophen (Tylenol Liquid) 650 mg Q4H PRN PEG MILD PAIN(1-3)OR ELEVATED TEMP Last administered on 04/11/19 05:14; Admin Dose 650 MG; Start 03/31/19 at 16:00 Lactobacillus Acidophilus/ Rhamnosus (Culturelle) 1 cap TID GTB Last administered on 04/15/19 21:03; Admin Dose 1 CAP; Start 04/02/19 at 13:00 Epoetin [place]-epbx (Retacrit (Esrd)) 10,000 unit MoWeFr@1700 SC Last administered on 04/15/19 21:11; Admin Dose 10,000 UNIT; Start 04/03/19 at 19:30 Lansoprazole (Prevacid) 30 mg BID@0600,1800 GTB Last administered on 04/16/19 05:32; Admin Dose 30 MG; Start 04/04/19 at 18:00 Multivit/Ca Carb/ B Cmplx/FA/Prenat (Karena-Geovanni) 1 tab DAILY GTB Last administered on 04/15/19 09:43; Admin Dose 1 TAB; Start 04/04/19 at 11:30 Aspirin (Aspirin) 81 mg DAILY PO Last administered on 04/11/19 08:46; Admin Do se 81 MG; Start 04/05/19 at 09:00; Status Hold Quetiapine Fumarate (Seroquel) 50 mg BID GTB Last administered on 04/15/19 21:07; Admin Dose 50 MG; Start 04/07/19 at 09:00 Propofol 100 ml @ 2.097 mls/ hr Q12H PRN IV AGITATION Last administered on 04/08/19 11:39; Admin Dose 6.291 MLS/HR; Start 04/08/19 at 00:00 Fentanyl 100 ml @ 2.5 mls/hr TITRATE IV Last administered on 04/13/19 22:09; Admin Dose 5 MLS/HR; Start 04/08/19 at 00:00 Midazolam HCl 50 ml @ 1 mls/hr TITRATE PRN IV agitation Last administered on 04/14/19 07:12; Admin Dose 4 MLS/HR; Start 04/08/19 at 00:00 Norepinephrine 250 ml @ 1.875 mls/ hr TITRATE IV Last administered on 04/15/19 05:45; Admin Dose 1.875 MLS/HR; Start 04/08/19 at 00:00 Levetiracetam 100 ml @ 400 mls/hr Q12 IVPB Last administered on 04/15/19 21:05; Admin Dose 400 MLS/HR; Start 04/08/19 at 09:30 Nicardipine HCl 50 mg/Sodium Chloride 500 ml @ 50 mls/hr TITRATE IV ; Start 04/08/19 at 09:30 Mupirocin (Bactroban) 1 applic BID TOP Last administered on 04/15/19 21:08; Admin Dose 1 APPLIC; Start 04/09/19 at 21:00 Budesonide (Pulmicort (Neb)) 0.5 mg BID RESP THERAPY HHN Last administered on 04/16/19 08:27; Admin Dose 0.5 MG; Start 04/12/19 at 09:00 Amikacin Sulfate (Amikacin Iv Per Pharmacy) AMIKACIN PER PHARMACY NOTE XX ; Start 04/12/19 at 10:30 Metronidazole 100 ml @ 100 mls/hr Q8 IVPB Last administered on 04/16/19 05:32; Admin Dose 100 MLS/HR; Start 04/12/19 at 14:00 Carvedilol (Coreg) 12.5 mg BID NGT Last administered on 04/15/19 21:04; Admin Dose 12.5 MG; Start 04/12/19 at 21:00 Amikacin Sulfate 300 mg/Sodium Chloride 101.2 ml @ 101.2 mls/ hr AFTER DIALYSIS IVPB Last administered on 04/15/19 22:09; Admin Dose 101.2 MLS/HR; Start 04/13/19 at 09:00 Albuterol (Ventolin Hfa) 2 puff Q6H RESP THERAPY INH Last administered on 04/16/19 08:26; Admin Dose 2 PUFF; Start 04/12/19 at 20:00 Ipratropium [place] (Atrovent Hfa) 4 puff Q6H RESP THERAPY INH Last administered on 04/16/19 08:26; Admin Dose 4 PUFF; Start 04/12/19 at 20:00 Dextrose 1,000 ml @ 50 mls/hr Q20H IV Last administered on 04/13/19 09:08; Admin Dose 75 MLS/HR; Start 04/13/19 at 09:00; Status Hold Metoclopramide HCl (Reglan) 5 mg Q6 IV Last administered on 04/16/19 05:31; Ad min Dose 5 MG; Start 04/13/19 at 12:00 Insulin Aspart (Novolog Insulin Pen) NOVOLOG *MILD* ALGORI... Q4 SC Last administered on 04/16/19 00:38; Admin Dose 1 UNIT; Start 04/13/19 at 09:00 Clopidogrel Bisulfate (plaVIX) 75 mg DAILY GTB ; Start 04/16/19 at 09:00; Status LILLIAN GRIFFIN MD Apr 16, 2019 08:30
[2019-04-16] MEDS: LACTOBACILLUS RHAMNOSUS CAP GTB SCH ×3 (08:33→21:14)
[2019-04-16] MEDS: DOXAZOSIN 2 MG TAB NGT SCH (08:33)
[2019-04-16] MEDS: BACLOFEN 10 MG TAB GTB SCH ×2 (08:33→21:14)
[2019-04-16] MEDS: LEVETIRACETAM 500 MG (PMX) 100 ML IVPB SCH (08:33)
[2019-04-16] MEDS: MULTIVIT/CA CARB/B CMPLX/FA TAB GTB SCH (08:33)
[2019-04-16] MEDS: QUETIAPINE 25 MG TAB GTB SCH ×2 (08:34→21:14)
[2019-04-16] MEDS: MUPIROCIN 2% 22 GM OINT TOP SCH ×2 (08:35→21:16)
[2019-04-16] MEDS: ACETAMINOPHEN 650MG/20.3ML CUP PEG PRN (08:42)
[2019-04-16] MEDS: DEXMEDETOMIDINE IN DEXTROSE 5% 50 ML IV SCH ×2 (09:04→16:31)
--- NOTE | 2019-04-16 09:25 | CONS ---
Assessment/Plan Assessment/Plan Assessment/Plan (Recall) 58 M c/ reported Hx of stroke, ESRD and other comorbidities, who was initially admitted for evaluation and management of agitation...for which neurology was consulted. The clinical picture was thought consistent w/ delirium in the context of recent and prolonged hospitalization and subsequent transfer to skilled care. He subsequently returned to his mental status baseline.. Head CT was unrevealing. Then on 04/07, the patient developed ams in the context of hypotension and acute respiratory failure, requiring intubation and pressor support.. Heis now thought to have aspiration pneumonia, which could certainly exacerbate a chronic encephalopathy.. A recurrent, acute cerebrovascular process is additionally considered.. Repeat Head CT x2 are stable from prior P: Await MRI brain for further characterization Add EEG to evaluate for subclinical seizures.. Continue Keppra as ordered for now Agree w/ Plavix daily for now, for secondary prevention (LDL is at goal) Continued medical management and supportive care per primary Wean sedation when medically able Will follow clinically Consultation Date/Type/Reason Admit Date/Time Mar 29, 2019 at 13:16 Type of Consult Neurology Reason for Consultation ams Requesting Provider: LILLIAN ZHANG MD Date/Time of Note DATE: 04/16/19 TIME: 09:23 24 HR Interval Summary Free Text/Dictation episode of unresponsiveness yesterday Exam/Review of Systems Exam Vitals Vital Signs Date Temp Pulse Resp B/P (MAP) Pulse Ox O2 O2 Flow FiO2 Time Delivery Rate 04/16/19 99.7 08:42 04/16/19 99 08:00 04/16/19 14 115/61 97 Mechanical 06:00 (79) Ventilator 04/16/19 60 05:36 Intake and Output 04/15/19 04/15/19 04/16/19 1515:00 23:00 07:00 IntakeIntake Total 326.825 ml 455.325 ml 190 ml OutputOutput Total 25 ml 3375 ml 275 ml BalanceBalance 301.825 ml -2919.675 ml -85 ml Results Result Diagram: 04/16/19 0430 04/16/19 0430 Results 24hrs Laboratory Tests Test 04/15/19 09:38 04/15/19 13:21 04/15/19 17:23 04/15/19 21:02 Bedside Glucose 150 148 134 117 Test 04/16/19 00:33 04/16/19 04:30 04/16/19 05:34 04/16/19 08:46 Bedside Glucose 144 140 143 White Blood Count 12.2 H Red Blood Count 2.87 L Hemoglobin 8.4 L Hematocrit 26.1 L Mean Corpuscular Volume 90.9 Mean Corpuscular 29.3 Hemoglobin Mean Corpuscular 32.2 Hemoglobin Concent Red Cell Distribution 17.2 H Width Platelet Count 257 Mean Platelet Volume 10.5 H Immature Granulocytes % 0.800 H Neutrophils % 85.8 H Lymphocytes % 7.8 L Monocytes % 3.0 Eosinophils % 2.1 Basophils % 0.5 Nucleated Red Blood 0.0 Cells % Immature Granulocytes # 0.100 H Neutrophils # 10.4 H Lymphocytes # 1.0 Monocytes # 0.4 Eosinophils # 0.3 Basophils # 0.1 Nucleated Red Blood 0.0 Cells # Sodium Level 143 Potassium Level 3.7 Chloride Level 108 Carbon Dioxide Level 25 Anion Gap 10 Blood Urea Nitrogen 12 # Creatinine 3.95 #H Glucose Level 144 Calcium Level 9.4 Phosphorus Level 3.0 Magnesium Level 2.0 Albumin 3.1 L Medications Medication Current Medications IV Flush (NS 3 ml) 3 ml PER PROTOCOL IV ; Start 03/29/19 at 13:30 Ondansetron HCl (Zofran Inj) 4 mg Q6H PRN IV NAUSEA/VOMITING Last administered on 04/07/19at 18:53; Admin Dose 4 MG; Start 03/29/19 at 13:30 Acetaminophen (Tylenol Tab) 650 mg Q6H PRN PO .PAIN 1-3 OR TEMP Last administered on 03/31/19at 05:48; Admin Dose 650 MG; Start 03/29/19 at 13:30 Hydralazine HCl (Apresoline) 10 mg Q4H PRN IV sbp >160 Last administered on 04/10/19at 02:35; Admin Dose 10 MG; Start 03/29/19 at 14:00 Miscellaneous Information 1 ea NOTE XX ; Start 03/29/19 at 14:30 Glucose (Glutose) 15 gm Q15M PRN PO DECREASED GLUCOSE; Start 03/29/19 at 14:30 Glucose (Glutose) 22.5 gm Q15M PRN PO DECREASED GLUCOSE; Start 03/29/19 at 14:30 Dextrose (D50w Syringe) 25 ml Q15M PRN IV DECREASED GLUCOSE Last administered on 04/13/19 05:56; Admin Dose 25 ML; Start 03/29/19 at 14:30; Status Hold Dextrose (D50w Syringe) 50 ml Q15M PRN IV DECREASED GLUCOSE; Start 03/29/19 at 14:30 Glucagon (Glucagen) 1 mg Q15M PRN IM DECREASED GLUCOSE; Start 03/29/19 at 14:30 Glucose (Glutose) 15 gm Q15M PRN BUCCAL DECREASED GLUCOSE; Start 03/29/19 at 14:30 Albumin Human 100 ml @ 100 mls/hr WITH DIALYSIS PRN IV SBP <90 DURING DIALYSIS Last administered on 04/15/19 17:39; Admin Dose 100 MLS/HR; Start 03/29/19 at 17:00 Albuterol/ Ipratropium (Duoneb) 3 ml Q2H RESP THERAPY PRN HHN WHEEZING AND RESP DISTRESS Last administered on 04/09/19 08:52; Admin Dose 3 ML; Start 03/29/19 at 18:00 Lorazepam (Ativan) 0.5 mg Q4H PRN IV AGITATION Last administered on 04/02/19 03:55; Admin Dose 0.5 MG; Start 03/29/19 at 18:00 IV Flush (NS 10 ml) 10 ml Q8 PRN IV IV PROTOCOL; Start 03/29/19 at 18:00 Labetalol HCl (Labetalol) 10 mg Q4H PRN IV sbp >160; Start 03/30/19 at 09:00 Haloperidol (Haldol) 5 mg Q6H PRN IM agitation Last administered on 03/31/19 00:10; Admin Dose 5 MG; Start 03/30/19 at 10:00 Heparin Sodium (Porcine) (Heparin (1000 Units/ml)) 3,200 unit AFTER DIALYSIS CATHETER Last administered on 04/15/19 20:43; Admin Dose 3,200 UNIT; Start 03/30/19 at 17:00 Atorvastatin Calcium (Lipitor) 40 mg HS NGT Last administered on 04/15/19 21:03; Admin Dose 40 MG; Start 03/31/19 at 21:00 Baclofen (Lioresal) 10 mg BID GTB Last administered on 04/16/19 08:33; Admin D ose 10 MG; Start 03/31/19 at 21:00 Doxazosin Mesylate (Cardura) 2 mg DAILY NGT Last administered on 04/16/19 08:33; Admin Dose 2 MG; Start 03/31/19 at 14:30 Gabapentin (Neurontin) 100 mg QHS PO Last administered on 04/15/19 21:04; Admin Dose 100 MG; Start 03/31/19 at 21:00 Acetaminophen (Tylenol Liquid) 650 mg Q4H PRN PEG MILD PAIN(1-3)OR ELEVATED TEMP Last administered on 04/16/19 08:42; Admin Dose 650 MG; Start 03/31/19 at 16:00 Lactobacillus Acidophilus/ Rhamnosus (Culturelle) 1 cap TID GTB Last administered on 04/16/19 08:33; Admin Dose 1 CAP; Start 04/02/19 at 13:00 Epoetin [place]-epbx (Retacrit (Esrd)) 10,000 unit MoWeFr@1700 SC Last administered on 04/15/19 21:11; Admin Dose 10,000 UNIT; Start 04/03/19 at 19:30 Lansoprazole (Prevacid) 30 mg BID@0600,1800 GTB Last administered on 04/16/19 05:32; Admin Dose 30 MG; Start 04/04/19 at 18:00 Multivit/Ca Carb/ B Cmplx/FA/Prenat (Karena-Geovanni) 1 tab DAILY GTB Last administered on 04/16/19 08:33; Admin Dose 1 TAB; Start 04/04/19 at 11:30 Aspirin (Aspirin) 81 mg DAILY PO Last administered on 04/11/19 08:46; Admin Dose 81 MG; Start 04/05/19 at 09:00; Status Hold Propofol 100 ml @ 2.097 mls/ hr Q12H PRN IV AGITATION Last administered on 04/08/19 11:39; Admin Dose 6.291 MLS/HR; Start 04/08/19 at 00:00 Fentanyl 100 ml @ 2.5 mls/hr TITRATE IV Last administered on 04/13/19 22:09; Admin Dose 5 MLS/HR; Start 04/08/19 at 00:00 Midazolam HCl 50 ml @ 1 mls/hr TITRATE PRN IV agitation Last administered on 04/14/19 07:12; Admin Dose 4 MLS/HR; Start 04/08/19 at 00:00 Norepinephrine 250 ml @ 1.875 mls/ hr TITRATE IV Last administered on 04/15/19 05:45; Admin Dose 1.875 MLS/HR; Start 04/08/19 at 00:00 Nicardipine HCl 50 mg/Sodium Chloride 500 ml @ 50 mls/hr TITRATE IV ; Start 04/08/19 at 09:30 Mupirocin (Bactroban) 1 applic BID TOP Last administered on 04/16/19 08:35; Admin Dose 1 APPLIC; Start 04/09/19 at 21:00 Budesonide (Pulmicort (Neb)) 0.5 mg BID RESP THERAPY HHN Last administered on 04/16/19 08:27; Admin Dose 0.5 MG; Start 04/12/19 at 09:00 Amikacin Sulfate (Amikacin Iv Per Pharmacy) AMIKACIN PER PHARMACY NOTE XX ; St art 04/12/19 at 10:30 Metronidazole 100 ml @ 100 mls/hr Q8 IVPB Last administered on 04/16/19 05:32; Admin Dose 100 MLS/HR; Start 04/12/19 at 14:00 Carvedilol (Coreg) 12.5 mg BID NGT Last administered on 04/16/19 08:34; Admin Dose 12.5 MG; Start 04/12/19 at 21:00 Amikacin Sulfate 300 mg/Sodium Chloride 101.2 ml @ 101.2 mls/ hr AFTER DIALYSIS IVPB Last administered on 04/15/19 22:09; Admin Dose 101.2 MLS/HR; Start 04/13/19 at 09:00 Albuterol (Ventolin Hfa) 2 puff Q6H RESP THERAPY INH Last administered on 04/16/19 08:26; Admin Dose 2 PUFF; Start 04/12/19 at 20:00 Ipratropium [place] (Atrovent Hfa) 4 puff Q6H RESP THERAPY INH Last administered on 04/16/19 08:26; Admin Dose 4 PUFF; Start 04/12/19 at 20:00 Dextrose 1,000 ml @ 50 mls/hr Q20H IV Last administered on 04/13/19 09:08; Admin Dose 75 MLS/HR; Start 04/13/19 at 09:00; Status Hold Metoclopramide HCl (Reglan) 5 mg Q6 IV Last administered on 04/16/19at 05:31; Admin Dose 5 MG; Start 04/13/19 at 12:00 Insulin Aspart (Novolog Insulin Pen) NOVOLOG *MILD* ALGORI... Q4 SC Last administered on 04/16/19at 08:48; Admin Dose 1 UNIT; Start 04/13/19 at 09:00 Clopidogrel Bisulfate (plaVIX) 75 mg DAILY GTB ; Start 04/16/19 at 09:00 Quetiapine Fumarate (Seroquel) 50 mg QHS GTB ; Start 04/16/19 at 21:00 GEOVANNI BLANCHARD Apr 16, 2019 09:25
--- NOTE | 2019-04-16 09:31 | CONS ---
Assessment/Plan Assessment/Plan Assessment/Plan (Daily) Ventilator setting; AC of 18, tidal volume 500, PEEP of 5, 60% FiO2. Assessment recommendations; 1. Patient with history of multiple CVAs admitted for respiratory failure due to bilateral pneumonia. Currently on appropriate antimicrobial regimen. Still requiring fairly high FiO2. 2. Possibly acute TIA yesterday. CT of the brain is unremarkable for any acute changes. 3. Anemia. 4. Stable seizure disorder. 5. Peripheral neuropathy. 6. History of muscle spasms. 7. Prior CABG. 8. End-stage renal disease, dialysis dependent. Patient was dialyzed yesterday. Continue current supportive care. Start Precedex drip for sedation. The possibly may also control the patient's hypertension as well. Which most likely is related to agitation. Prognosis remains poor. Consultation Date/Type/Reason Admit Date/Time Mar 29, 2019 at 13:16 Initial Consult Date 04/07/19 Type of Consult Pulmonary/critical care Patient condition remains critical. Has failed ventilator weaning trials General exam; middle-aged male, orally intubated, awake but noncommunicative. Currently no distress. Requesting Provider: LILLIAN ZHANG MD Date/Time of Note DATE: 04/16/19 TIME: 09:28 24 HR Interval Summary Free Text/Dictation Patient's condition remains critical. Patient had apparently a TIA event yesterday. Stat CT of the brain was done which is unremarkable. Patient however has remained hemodynamically stable. Is off pressor support. Patient now appearing hypertensive. Possibly related to agitation. General exam; middle-aged male, orally intubated, awake and agitated. Exam/Review of Systems Exam Vitals Vital Signs Date Temp Pulse Resp B/P (MAP) Pulse Ox O2 O2 Flow FiO2 Time Delivery Rate 04/16/19 99.7 08:42 04/16/19 99 08:00 04/16/19 14 115/61 97 Mechanical 06:00 (79) Ventilator 04/16/19 60 05:36 Intake and Output 04/15/19 04/15/19 04/16/19 1515:00 23:00 07:00 IntakeIntake Total 326.825 ml 455.325 ml 190 ml OutputOutput Total 25 ml 3375 ml 275 ml BalanceBalance 301.825 ml -2919.675 ml -85 ml Exam HEENT exam; supple neck, no JVD. No lymphadenopathy. Midline trachea. No thyromegaly. Patient has fair dentition. Orally intubated. Pupils are small bilaterally. No neck masses. Chest exam; diminished breath sounds bilaterally. S1-S2 audible, no murmurs. Regular rhythm. Abdomen exam; soft, no organomegaly. G-tube in place. Bowel sounds are audible. Extremity exam; trace edema. MECHANICAL DESIGN DRAFTER exam; patient is agitated. Results Result Diagram: 04/16/19 0430 04/16/19 0430 Results 24hrs Laboratory Tests Test 04/15/19 09:38 04/15/19 13:21 04/15/19 17:23 04/15/19 21:02 Bedside Glucose 150 148 134 117 Test 04/16/19 00:33 04/16/19 04:30 04/16/19 05:34 04/16/19 08:46 Bedside Glucose 144 140 143 White Blood Count 12.2 H Red Blood Count 2.87 L Hemoglobin 8.4 L Hematocrit 26.1 L Mean Corpuscular Volume 90.9 Mean Corpuscular 29.3 Hemoglobin Mean Corpuscular 32.2 Hemoglobin Concent Red Cell Distribution 17.2 H Width Platelet Count 257 Mean Platelet Volume 10.5 H Immature Granulocytes % 0.800 H Neutrophils % 85.8 H Lymphocytes % 7.8 L Monocytes % 3.0 Eosinophils % 2.1 Basophils % 0.5 Nucleated Red Blood 0.0 Cells % Immature Granulocytes # 0.100 H Neutrophils # 10.4 H Lymphocytes # 1.0 Monocytes # 0.4 Eosinophils # 0.3 Basophils # 0.1 Nucleated Red Blood 0.0 Cells # Sodium Level 143 Potassium Level 3.7 Chloride Level 108 Carbon Dioxide Level 25 Anion Gap 10 Blood Urea Nitrogen 12 # Creatinine 3.95 #H Glucose Level 144 Calcium Level 9.4 Phosphorus Level 3.0 Magnesium Level 2.0 Albumin 3.1 L Medications Medication Current Medications IV Flush (NS 3 ml) 3 ml PER PROTOCOL IV ; Start 03/29/19 at 13:30 Ondansetron HCl (Zofran Inj) 4 mg Q6H PRN IV NAUSEA/VOMITING Last administered on 04/07/19at 18:53; Admin Dose 4 MG; Start 03/29/19 at 13:30 Acetaminophen (Tylenol Tab) 650 mg Q6H PRN PO .PAIN 1-3 OR TEMP Last administered on 03/31/19at 05:48; Admin Dose 650 MG; Start 03/29/19 at 13:30 Hydralazine HCl (Apresoline) 10 mg Q4H PRN IV sbp >160 Last administered on 04/10/19at 02:35; Admin Dose 10 MG; Start 03/29/19 at 14:00 Miscellaneous Information 1 ea NOTE XX ; Start 03/29/19 at 14:30 Glucose (Glutose) 15 gm Q15M PRN PO DECREASED GLUCOSE; Start 03/29/19 at 14:30 Glucose (Glutose) 22.5 gm Q15M PRN PO DECREASED GLUCOSE; Start 03/29/19 at 14:30 Dextrose (D50w Syringe) 25 ml Q15M PRN IV DECREASED GLUCOSE Last administered o n 04/13/19at 05:56; Admin Dose 25 ML; Start 03/29/19 at 14:30; Status Hold Dextrose (D50w Syringe) 50 ml Q15M PRN IV DECREASED GLUCOSE; Start 03/29/19 at 14:30 Glucagon (Glucagen) 1 mg Q15M PRN IM DECREASED GLUCOSE; Start 03/29/19 at 14:30 Glucose (Glutose) 15 gm Q15M PRN BUCCAL DECREASED GLUCOSE; Start 03/29/19 at 14:30 Albumin Human 100 ml @ 100 mls/hr WITH DIALYSIS PRN IV SBP <90 DURING DIALYSIS Last administered on 04/15/19at 17:39; Admin Dose 100 MLS/HR; Start 03/29/19 at 17:00 Albuterol/ Ipratropium (Duoneb) 3 ml Q2H RESP THERAPY PRN HHN WHEEZING AND RESP DISTRESS Last administered on 04/09/19at 08:52; Admin Dose 3 ML; Start 03/29/19 at 18:00 Lorazepam (Ativan) 0.5 mg Q4H PRN IV AGITATION Last administered on 04/02/19at 03:55; Admin Dose 0.5 MG; Start 03/29/19 at 18:00 IV Flush (NS 10 ml) 10 ml Q8 PRN IV IV PROTOCOL; Start 03/29/19 at 18:00 Labetalol HCl (Labetalol) 10 mg Q4H PRN IV sbp >160; Start 03/30/19 at 09:00 Haloperidol (Haldol) 5 mg Q6H PRN IM agitation Last administered on 03/31/19 00:10; Admin Dose 5 MG; Start 03/30/19 at 10:00 Heparin Sodium (Porcine) (Heparin (1000 Units/ml)) 3,200 unit AFTER DIALYSIS CATHETER Last administered on 04/15/19 20:43; Admin Dose 3,200 UNIT; Start 03/30/19 at 17:00 Atorvastatin Calcium (Lipitor) 40 mg HS NGT Last administered on 04/15/19 21:03; Admin Dose 40 MG; Start 03/31/19 at 21:00 Baclofen (Lioresal) 10 mg BID GTB Last administered on 04/16/19 08:33; Admin Dose 10 MG; Start 03/31/19 at 21:00 Doxazosin Mesylate (Cardura) 2 mg DAILY NGT Last administered on 04/16/19 08:33; Admin Dose 2 MG; Start 03/31/19 at 14:30 Gabapentin (Neurontin) 100 mg QHS PO Last administered on 04/15/19 21:04; Admin Dose 100 MG; Start 03/31/19 at 21:00 Acetaminophen (Tylenol Liquid) 650 mg Q4H PRN PEG MILD PAIN(1-3)OR ELEVATED TEMP Last administered on 04/16/19 08:42; Admin Dose 650 MG; Start 03/31/19 at 16:00 Lactobacillus Acidophilus/ Rhamnosus (Culturelle) 1 cap TID GTB Last administered on 04/16/19 08:33; Admin Dose 1 CAP; Start 04/02/19 at 13:00 Epoetin [place]-epbx (Retacrit (Esrd)) 10,000 unit MoWeFr@1700 SC Last administ ered on 04/15/19 21:11; Admin Dose 10,000 UNIT; Start 04/03/19 at 19:30 Lansoprazole (Prevacid) 30 mg BID@0600,1800 GTB Last administered on 04/16/19 05:32; Admin Dose 30 MG; Start 04/04/19 at 18:00 Multivit/Ca Carb/ B Cmplx/FA/Prenat (Karena-Geovanni) 1 tab DAILY GTB Last administered on 04/16/19 08:33; Admin Dose 1 TAB; Start 04/04/19 at 11:30 Aspirin (Aspirin) 81 mg DAILY PO Last administered on 04/11/19 08:46; Admin Dose 81 MG; Start 04/05/19 at 09:00; Status Hold Propofol 100 ml @ 2.097 mls/ hr Q12H PRN IV AGITATION Last administered on 04/08/19 11:39; Admin Dose 6.291 MLS/HR; Start 04/08/19 at 00:00 Fentanyl 100 ml @ 2.5 mls/hr TITRATE IV Last administered on 04/13/19 22:09; Admin Dose 5 MLS/HR; Start 04/08/19 at 00:00 Midazolam HCl 50 ml @ 1 mls/hr TITRATE PRN IV agitation Last administered on 04/14/19 07:12; Admin Dose 4 MLS/HR; Start 04/08/19 at 00:00 Norepinephrine 250 ml @ 1.875 mls/ hr TITRATE IV Last administered on 04/15/19 05:45; Admin Dose 1.875 MLS/HR; Start 04/08/19 at 00:00 Nicardipine HCl 50 mg/Sodium Chloride 500 ml @ 50 mls/hr TITRATE IV ; Start 04/08/19 at 09:30 Mupirocin (Bactroban) 1 applic BID TOP Last administered on 04/16/19 08:35; Admin Dose 1 APPLIC; Start 04/09/19 at 21:00 Budesonide (Pulmicort (Neb)) 0.5 mg BID RESP THERAPY HHN Last administered on 04/16/19 08:27; Admin Dose 0.5 MG; Start 04/12/19 at 09:00 Amikacin Sulfate (Amikacin Iv Per Pharmacy) AMIKACIN PER PHARMACY NOTE XX ; Start 04/12/19 at 10:30 Metronidazole 100 ml @ 100 mls/hr Q8 IVPB Last administered on 04/16/19 05:32; Admin Dose 100 MLS/HR; Start 04/12/19 at 14:00 Carvedilol (Coreg) 12.5 mg BID NGT Last administered on 04/16/19 08:34; Admin Dose 12.5 MG; Start 04/12/19 at 21:00 Amikacin Sulfate 300 mg/Sodium Chloride 101.2 ml @ 101.2 mls/ hr AFTER DIALYSIS IVPB Last administered on 04/15/19 22:09; Admin Dose 101.2 MLS/HR; Start 04/13/19 at 09:00 Albuterol (Ventolin Hfa) 2 puff Q6H RESP THERAPY INH Last administered on 04/16/19 08:26; Admin Dose 2 PUFF; Start 04/12/19 at 20:00 Ipratropium [place] (Atrovent Hfa) 4 puff Q6H RESP THERAPY INH Last administered on 04/16/19 08:26; Admin Dose 4 PUFF; Start 04/12/19 at 20:00 Dextrose 1,000 ml @ 50 mls/hr Q20H IV Last administered on 04/13/19 09:08; Admin Dose 75 MLS/HR; Start 04/13/19 at 09:00; Status Hold Metoclopramide HCl (Reglan) 5 mg Q6 IV Last administered on 04/16/19 05:31; Admin Dose 5 MG; Start 04/13/19 at 12:00 Insulin Aspart (Novolog Insulin Pen) NOVOLOG *MILD* ALGORI... Q4 SC Last administered on 04/16/19 08:48; Admin Dose 1 UNIT; Start 04/13/19 at 09:00 Clopidogrel Bisulfate (plaVIX) 75 mg DAILY GTB ; Start 04/16/19 at 09:00 Quetiapine Fumarate (Seroquel) 50 mg QHS GTB ; Start 04/16/19 at 21:00 ALEXANDRA JACKSON Apr 16, 2019 09:31
[2019-04-16] MEDS: CLOPIDOGREL 75 MG TAB GTB SCH (09:39)
[2019-04-16] MEDS: hydrALAzine 20 MG INJ IV PRN (11:37)
--- NOTE | 2019-04-16 12:09 | PN ---
Date/Time of Note Date/Time of Note DATE: 04/16/19 TIME: 12:06 Assessment/Plan VTE Prophylaxis Risk score (from Ns)>0 risk: 7 SCD applied (from Ns): Yes Pharmacological prophylaxis: other (scds) Lines/Catheters [facility] ([facility] PERMACATH Urinary Cath still in place: Yes Reason Cath still needed: other (indicate) (monitor output) Assessment/Plan Hospital Course Assessment/Plan Assessment: Severe anemia-improved- hgb- 7.9 04/10/19- no overt signs of GI bleed -EGD 04/03/2019 Moderate distal esophagitis. Gastrostomy tube in place. Gastritis -biopsies are negative for H. pylori. Duodenitis. Colonoscopy 04/03/2019 8 sessile polyp in the cecum. Snared and retrieved. -Tubular adenoma 6 mm sessile polyp ascending colon. Snared and retrieved. -Tubular adenoma 6 mm sessile polyp sigmoid. Snared and retrieved. -Tubular adenoma 20 mm sessile polyp sigmoid. Saline assisted lipectomy plus localization tattoo. Moderate-sized internal hemorrhoids. 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 -Replaced with 18 [place] gastrostomy tube Coronary artery disease status post CABG history Epilepsy BPH Query aspiration PNA Plan: Continue G-tube feeding to goal rate of 40ml/hr, hold for residuals greater than 150 cc. Reglan 5mg IV q6hr MRI of the brain Continue current GI regimen Supportive care Patient seen in collaboration with Dr. Sanders Subjective: Course reviewed with nursing staff Patient interviewed and examined All labs, imaging and other results reviewed Family meeting tomorrow Patient with increased agitation - patient Precedex has been increased Increase in Tf to 20ml/hr, continue supportive care. PHYSICAL EXAMINATION: GENERAL: Well developed, well nourished, intubated and sedated SKIN: No lesions, g-tube in place NECK: Supple, no masses, thyroid normal CHEST: Inspection within normal limits. CARDIOVASCULAR: Heart: Regular rate and rhythm RESPIRATORY: Lungs clear to auscultation. GASTROINTESTINAL AND LIVER: Abdomen: Soft, G-tube in place, non-distended, no organomegaly, no ascites, no guarding, no rebound tenderness, normoactive bowel sounds. Rectal: Rectal tube in place GENITOURINARY: Male genitalia within normal limits. EXTREMITIES: No cyanosis, clubbing or edema. Result Diagram: 04/16/19 0430 04/16/19 0430 Results 24hrs Laboratory Tests Test 04/15/19 13:21 04/15/19 17:23 04/15/19 21:02 04/16/19 00:33 Bedside Glucose 148 134 117 144 Test 04/16/19 04:30 04/16/19 05:34 04/16/19 08:46 White Blood Count 12.2 H Red Blood Count 2.87 L Hemoglobin 8.4 L Hematocrit 26.1 L Mean Corpuscular Volume 90.9 Mean Corpuscular 29.3 Hemoglobin Mean Corpuscular 32.2 Hemoglobin Concent Red Cell Distribution 17.2 H Width Platelet Count 257 Mean Platelet Volume 10.5 H Immature Granulocytes % 0.800 H Neutrophils % 85.8 H Lymphocytes % 7.8 L Monocytes % 3.0 Eosinophils % 2.1 Basophils % 0.5 Nucleated Red Blood 0.0 Cells % Immature Granulocytes # 0.100 H Neutrophils # 10.4 H Lymphocytes # 1.0 Monocytes # 0.4 Eosinophils # 0.3 Basophils # 0.1 Nucleated Red Blood 0.0 Cells # Sodium Level 143 Potassium Level 3.7 Chloride Level 108 Carbon Dioxide Level 25 Anion Gap 10 Blood Urea Nitrogen 12 # Creatinine 3.95 #H Glucose Level 144 Calcium Level 9.4 Phosphorus Level 3.0 Magnesium Level 2.0 Albumin 3.1 L Bedside Glucose 140 143 Exam/Review of Systems Exam Vitals Vital Signs Date Temp Pulse Resp B/P (MAP) Pulse Ox O2 O2 Flow FiO2 Time Delivery Rate 04/16/19 81 19 99 40 11:26 04/16/19 97.9 09:38 04/16/19 115/61 Mechanical 06:00 (79) Ventilator Intake and Output 04/15/19 04/15/19 04/16/19 1515:00 23:00 07:00 IntakeIntake Total 326.825 ml 455.325 ml 190 ml OutputOutput Total 25 ml 3375 ml 275 ml BalanceBalance 301.825 ml -2919.675 ml -85 ml Results Results 24hrs Laboratory Tests Test 04/15/19 13:21 04/15/19 17:23 04/15/19 21:02 04/16/19 00:33 Bedside Glucose 148 134 117 144 Test 04/16/19 04:30 04/16/19 05:34 04/16/19 08:46 White Blood Count 12.2 H Red Blood Count 2.87 L Hemoglobin 8.4 L Hematocrit 26.1 L Mean Corpuscular Volume 90.9 Mean Corpuscular 29.3 Hemoglobin Mean Corpuscular 32.2 Hemoglobin Concent Red Cell Distribution 17.2 H Width Platelet Count 257 Mean Platelet Volume 10.5 H Immature Granulocytes % 0.800 H Neutrophils % 85.8 H Lymphocytes % 7.8 L Monocytes % 3.0 Eosinophils % 2.1 Basophils % 0.5 Nucleated Red Blood 0.0 Cells % Immature Granulocytes # 0.100 H Neutrophils # 10.4 H Lymphocytes # 1.0 Monocytes # 0.4 Eosinophils # 0.3 Basophils # 0.1 Nucleated Red Blood 0.0 Cells # Sodium Level 143 Potassium Level 3.7 Chloride Level 108 Carbon Dioxide Level 25 Anion Gap 10 Blood Urea Nitrogen 12 # Creatinine 3.95 #H Glucose Level 144 Calcium Level 9.4 Phosphorus Level 3.0 Magnesium Level 2.0 Albumin 3.1 L Bedside Glucose 140 143 Medications Medication Current Medications IV Flush (NS 3 ml) 3 ml PER PROTOCOL IV ; Start 03/29/19 at 13:30 Ondansetron HCl (Zofran Inj) 4 mg Q6H PRN IV NAUSEA/VOMITING Last administered on 04/07/19at 18:53; Admin Dose 4 MG; Start 03/29/19 at 13:30 Acetaminophen (Tylenol Tab) 650 mg Q6H PRN PO .PAIN 1-3 OR TEMP Last administered on 03/31/19at 05:48; Admin Dose 650 MG; Start 03/29/19 at 13:30 Hydralazine HCl (Apresoline) 10 mg Q4H PRN IV sbp >160 Last administered on 04/16/19at 11:37; Admin Dose 10 MG; Start 03/29/19 at 14:00 Miscellaneous Information 1 ea NOTE XX ; Start 03/29/19 at 14:30 Glucose (Glutose) 15 gm Q15M PRN PO DECREASED GLUCOSE; Start 03/29/19 at 14:30 Glucose (Glutose) 22.5 gm Q15M PRN PO DECREASED GLUCOSE; Start 03/29/19 at 14:30 Dextrose (D50w Syringe) 25 ml Q15M PRN IV DECREASED GLUCOSE Last administered on 04/13/19 05:56; Admin Dose 25 ML; Start 03/29/19 at 14:30; Status Hold Dextrose (D50w Syringe) 50 ml Q15M PRN IV DECREASED GLUCOSE; Start 03/29/19 at 14:30 Glucagon (Glucagen) 1 mg Q15M PRN IM DECREASED GLUCOSE; Start 03/29/19 at 14:30 Glucose (Glutose) 15 gm Q15M PRN BUCCAL DECREASED GLUCOSE; Start 03/29/19 at 14:30 Albumin Human 100 ml @ 100 mls/hr WITH DIALYSIS PRN IV SBP <90 DURING DIALYSIS Last administered on 04/15/19 17:39; Admin Dose 100 MLS/HR; Start 03/29/19 at 17:00 Albuterol/ Ipratropium (Duoneb) 3 ml Q2H RESP THERAPY PRN HHN WHEEZING AND RESP DISTRESS Last administered on 04/09/19 08:52; Admin Dose 3 ML; Start 03/29/19 at 18:00 Lorazepam (Ativan) 0.5 mg Q4H PRN IV AGITATION Last administered on 04/02/19 03:55; Admin Dose 0.5 MG; Start 03/29/19 at 18:00 IV Flush (NS 10 ml) 10 ml Q8 PRN IV IV PROTOCOL; Start 03/29/19 at 18:00 Labetalol HCl (Labetalol) 10 mg Q4H PRN IV sbp >160; Start 03/30/19 at 09:00 Haloperidol (Haldol) 5 mg Q6H PRN IM agitation Last administered on 03/31/19 00:10; Admin Dose 5 MG; Start 03/30/19 at 10:00 Heparin Sodium (Porcine) (Heparin (1000 Units/ml)) 3,200 unit AFTER DIALYSIS CATHETER Last administered on 04/15/19 20:43; Admin Dose 3,200 UNIT; Start 03/30/19 at 17:00 Atorvastatin Calcium (Lipitor) 40 mg HS NGT Last administered on 04/15/19 21:03; Admin Dose 40 MG; Start 03/31/19 at 21:00 Baclofen (Lioresal) 10 mg BID GTB Last administered on 04/16/19 08:33; Admin Dose 10 MG; Start 03/31/19 at 21:00 Doxazosin Mesylate (Cardura) 2 mg DAILY NGT Last administered on 04/16/19 08:33; Admin Dose 2 MG; Start 03/31/19 at 14:30 Gabapentin (Neurontin) 100 mg QHS PO Last administered on 04/15/19 21:04; Admin Dose 100 MG; Start 03/31/19 at 21:00 Acetaminophen (Tylenol Liquid) 650 mg Q4H PRN PEG MILD PAIN(1-3)OR ELEVATED TEMP Last administered on 04/16/19 08:42; Admin Dose 650 MG; Start 03/31/19 at 16:00 Lactobacillus Acidophilus/ Rhamnosus (Culturelle) 1 cap TID GTB Last administered on 04/16/19 08:33; Admin Dose 1 CAP; Start 04/02/19 at 13:00 Epoetin [place]-epbx (Retacrit (Esrd)) 10,000 unit MoWeFr@1700 SC Last administered on 04/15/19 21:11; Admin Dose 10,000 UNIT; Start 04/03/19 at 19:30 Lansoprazole (Prevacid) 30 mg BID@0600,1800 GTB Last administered on 04/16/19 05:32; Admin Dose 30 MG; Start 04/04/19 at 18:00 Multivit/Ca Carb/ B Cmplx/FA/Prenat (Karena-Geovanni) 1 tab DAILY GTB Last administe red on 04/16/19 08:33; Admin Dose 1 TAB; Start 04/04/19 at 11:30 Aspirin (Aspirin) 81 mg DAILY PO Last administered on 04/11/19 08:46; Admin Dose 81 MG; Start 04/05/19 at 09:00; Status Hold Propofol 100 ml @ 2.097 mls/ hr Q12H PRN IV AGITATION Last administered on 04/08/19 11:39; Admin Dose 6.291 MLS/HR; Start 04/08/19 at 00:00 Fentanyl 100 ml @ 2.5 mls/hr TITRATE IV Last administered on 04/13/19 22:09; Admin Dose 5 MLS/HR; Start 04/08/19 at 00:00 Midazolam HCl 50 ml @ 1 mls/hr TITRATE PRN IV agitation Last administered on 04/14/19 07:12; Admin Dose 4 MLS/HR; Start 04/08/19 at 00:00 Norepinephrine 250 ml @ 1.875 mls/ hr TITRATE IV Last administered on 04/15/19 05:45; Admin Dose 1.875 MLS/HR; Start 04/08/19 at 00:00 Nicardipine HCl 50 mg/Sodium Chloride 500 ml @ 50 mls/hr TITRATE IV ; Start 04/08/19 at 09:30 Mupirocin (Bactroban) 1 applic BID TOP Last administered on 04/16/19 08:35; Admin Dose 1 APPLIC; Start 04/09/19 at 21:00 Budesonide (Pulmicort (Neb)) 0.5 mg BID RESP THERAPY HHN Last administered on 04/16/19 08:27; Admin Dose 0.5 MG; Start 04/12/19 at 09:00 Amikacin Sulfate (Amikacin Iv Per Pharmacy) AMIKACIN PER PHARMACY NOTE XX ; Start 04/12/19 at 10:30 Metronidazole 100 ml @ 100 mls/hr Q8 IVPB Last administered on 04/16/19 05:32; Admin Dose 100 MLS/HR; Start 04/12/19 at 14:00 Carvedilol (Coreg) 12.5 mg BID NGT Last administered on 04/16/19 08:34; Admin Dose 12.5 MG; Start 04/12/19 at 21:00 Amikacin Sulfate 300 mg/Sodium Chloride 101.2 ml @ 101.2 mls/ hr AFTER DI ALYSIS IVPB Last administered on 04/15/19 22:09; Admin Dose 101.2 MLS/HR; Start 04/13/19 at 09:00 Albuterol (Ventolin Hfa) 2 puff Q6H RESP THERAPY INH Last administered on 04/16/19 08:26; Admin Dose 2 PUFF; Start 04/12/19 at 20:00 Ipratropium [place] (Atrovent Hfa) 4 puff Q6H RESP THERAPY INH Last administered on 04/16/19 08:26; Admin Dose 4 PUFF; Start 04/12/19 at 20:00 Dextrose 1,000 ml @ 50 mls/hr Q20H IV Last administered on 04/13/19 09:08; Admin Dose 75 MLS/HR; Start 04/13/19 at 09:00; Status Hold Metoclopramide HCl (Reglan) 5 mg Q6 IV Last administered on 04/16/19 05:31; Admin Dose 5 MG; Start 04/13/19 at 12:00 Insulin Aspart (Novolog Insulin Pen) NOVOLOG *MILD* ALGORI... Q4 SC Last administered on 04/16/19 08:48; Admin Dose 1 UNIT; Start 04/13/19 at 09:00 Clopidogrel Bisulfate (plaVIX) 75 mg DAILY GTB Last administered on 04/16/19 09:39; Admin Dose 75 MG; Start 04/16/19 at 09:00 Quetiapine Fumarate (Seroquel) 50 mg QHS GTB ; Start 04/16/19 at 21:00 JUNE LEE Apr 16, 2019 12:09
[2019-04-16] MEDS: LORAZEPAM 2 MG INJ IV PRN (15:45)
--- NOTE | 2019-04-16 15:57 | CONS ---
Consult Date/Type/Reason Admit Date/Time Mar 29, 2019 at 13:16 Initial Consult Date 04/07/19 Type of Consultation: cv Requesting Provider: LILLIAN ZHANG MD Date/Time of Note DATE: 04/16/19 TIME: 15:56 Subjective Interventional cardiology follow-up progress note Subjective: Discussed with the staff and Telemetry was reviewed. pt remains intubated no vent pt is no longer hypotensive and has been hypertensive now Patient nonverbal. objective: General: s/p intubation on the ventilator HEENT: NC/AT. pupils are equal. round. NECK:. no stridor. CV: RRR. systolic murmur; no gallop or rubs. PULM: + rhonchi. GI: SOFT, NT, ND, no rebound or guarding s/pPEG Extremity: trace B/L LE edema. no clubbing. neuro: opens his eyes Psych: calm the moment rectal: deferred : normal ECHO 04/09/19 REVIEWED Normal left ventricular systolic function. Normal left ventricular cavity size. Mild concentric left ventricular hypertrophy. Ejection fraction is visually estimated at 55 %. Tissue Doppler/Mitral Doppler indices are consistent with i mpaired relaxation (Stage I diastolic dysfunction). Mild mitral leaflet calcification. Mild mitral annular calcification. Mild mitral valve regurgitation. No significant aortic stenosis or insufficiency. Aortic cusps appear mildly calcified. Normal appearance of the tricuspid valve. The estimated Peak RVSP is 25 mmHg. There is trace tricuspid regurgitation. cxr 04/09/19 Persistent small left greater than right pleural effusions with associated atelectasis/infiltrate. CXR . Appropriate position of central lines and endotracheal tube. 2. Bilateral perihilar and basilar airspace opacities representing pulmonary edema or infection. 3. Small left pleural effusion. Objective Vitals Vital Signs Date Temp Pulse Resp B/P (MAP) Pulse Ox O2 O2 Flow FiO2 Time Delivery Rate 04/16/19 66 18 160/76 96 Mechanical 14:00 (104) Ventilator 04/16/19 98.0 12:00 04/16/19 40 11:26 Intake and Output 04/15/19 04/15/19 04/16/19 1515:00 23:00 07:00 IntakeIntake Total 326.825 ml 455.325 ml 290 ml OutputOutput Total 25 ml 3375 ml 275 ml BalanceBalance 301.825 ml -2919.675 ml 15 ml Results/Medications Result Diagram: 04/16/19 0430 04/16/19 0430 Results 24 hrs Laboratory Tests Test 04/15/19 17:23 04/15/19 21:02 04/16/19 00:33 04/16/19 04:30 Bedside Glucose 134 117 144 White Blood Count 12.2 H Red Blood Count 2.87 L Hemoglobin 8.4 L Hematocrit 26.1 L Mean Corpuscular Volume 90.9 Mean Corpuscular 29.3 Hemoglobin Mean Corpuscular 32.2 Hemoglobin Concent Red Cell Distribution 17.2 H Width Platelet Count 257 Mean Platelet Volume 10.5 H Immature Granulocytes % 0.800 H Neutrophils % 85.8 H Lymphocytes % 7.8 L Monocytes % 3.0 Eosinophils % 2.1 Basophils % 0.5 Nucleated Red Blood 0.0 Cells % Immature Granulocytes # 0.100 H Neutrophils # 10.4 H Lymphocytes # 1.0 Monocytes # 0.4 Eosinophils # 0.3 Basophils # 0.1 Nucleated Red Blood 0.0 Cells # Sodium Level 143 Potassium Level 3.7 Chloride Level 108 Carbon Dioxide Level 25 Anion Gap 10 Blood Urea Nitrogen 12 # Creatinine 3.95 #H Glucose Level 144 Calcium Level 9.4 Phosphorus Level 3.0 Magnesium Level 2.0 Albumin 3.1 L Test 04/16/19 05:34 04/16/19 08:46 04/16/19 13:28 Bedside Glucose 140 143 188 Home Meds Reported Medications Bisacodyl (Dulcolax) 10 Mg Supp.rect, 10 MG RC DAILY PRN for CONSTIPATION, SUPP.RECT 03/29/19 Sodium Phosphate,[place]-Dibasic (Enema Ready To Use) 133 Ml Enema, 133 ML RC EVERY 2 DAYS PRN for CONSTIPATION, ENEMA 03/29/19 Acetaminophen* (Acetaminophen*) 650 Mg Tablet, 650 MG GTB Q4 PRN for MILD PAIN LEVEL 1-3, #30 TAB AND FEVER 03/29/19 Acetaminophen* (Acetaminophen*) 500 MG Extra Strength Tablet, 1000 MG GTB Q4H PRN for MODERATE PAIN LEVEL 4-6, TAB 03/29/19 Acetaminophen* (Acetaminophen*) 500 MG Extra Strength Tablet, 1000 MG GTB BID PRN for GENERAL BODY PAIN, TAB 03/29/19 Amino Acids/Protein Hydrolys (Pro-Stat Awc Liquid) 30 Ml Liquid, 30 ML GTB DAILY SUGAR FREE 03/29/19 Multivitamin* (Daily Value*) 1 Each Tablet, 1 TAB GTB DAILY, TAB 03/29/19 Ascorbic Acid* (Vitamin C*) 500 Mg Capsule.sa, 500 MG GTB DAILY, CAP 03/29/19 Ferrous Sulfate (Ferrous Sulfate) 300 Mg/5 Ml Liquid, 325 MG GTB DAILY 03/29/19 Cran/Vitc/Mannose/Inulin/Brom (Uti-Stat Liquid) 3,875 Mg/30 Ml Liquid, 3875 MG GTB DAILY 03/29/19 Cranberry Extract (Cranberry) 425 Mg Capsule, 425 MG GTB DAILY, CAP 03/29/19 Insulin Glulisine (Apidra Solostar) 100 Unit/1 Ml Insuln.pen, 4 UNIT SQ TIDM A, #1 TUB 03/29/19 Insulin Glargine,Hum.rec.anlog (Basaglar Kwikpen U-100) 100 Unit/1 Ml Insuln.pen, 25 UNIT SC QHS, EA 03/29/19 Insulin Regular, Human (Humulin R) 100 Unit/1 Ml Vial, 0 IJ AC MEALS AND BEDTIME, VIAL 0-150 = 0 UNIT 151-200 = 1 UNIT 201-250 = 2 UNITS 251-300 = 3 UNITS 301-350 = 4 UNITS 351-400 = 5 UNITS OVER 400 GIVE 6 UNITS UNDER 70 OR OVER 400 NOTIFY 03/29/19 Sertraline Hcl* (Sertraline Hcl*) 25 Mg Tablet, 25 MG GTB DAILY, #30 TAB 03/29/19 Lorazepam* (Ativan*) 0.5 Mg Tablet, 0.5 MG GTB DAILY PRN for ANXIETY, #30 TAB 03/29/19 Quetiapine Fumarate* (Seroquel*) 25 Mg Tablet, 25 MG GTB HS, #30 TAB 03/29/19 Lorazepam* (Lorazepam*) 0.5 Mg Tablet, 0.5 MG GTB DAILY PRN for ANXIETY, TAB 03/29/19 Clonidine Hcl* (Clonidine Hcl*) 0.1 Mg Tab, 0.1 MG GTB DAILY PRN for ELEVATED BLOOD PRESSURE, TAB SBP >160 03/29/19 Azelastine Hcl* (Azelastine Hcl*) 137 Mcg/0.137 Ml Golva.pump, 2 SPRAYS NASAL BID, #1 EA TO EACH NOSTRIL 03/29/19 Carvedilol* (Carvedilol*) 12.5 Mg Tablet, 12.5 MG GTB BID, #60 TAB 03/29/19 Diltiazem Hcl* (Cardizem CD*) 240 Mg Cap.sr.24h, 240 MG GTB DAILY, #30 CAP 03/29/19 Ergocalciferol (Vitamin D2) (VITAMIN D2) 50,000 Unit Capsule, 50323 UNIT GTB EVERY MONDAY, CAP 03/29/19 Hydralazine Hcl* (Hydralazine Hcl*) 50 Mg Tab, 50 MG GTB TID PRN for ELEVATED BLOOD PRESSURE, #60 TAB 03/29/19 Losartan Potassium* (Losartan Potassium*) 100 Mg Tablet, 100 MG GTB DAILY, TAB 03/29/19 Metoprolol Succinate* (Toprol XL*) 25 Mg Tab.sr.24h, 25 MG GTB DAILY, #30 TAB 03/29/19 Linagliptin (TRADJENTA) 5 Mg Tablet, 5 MG GTB DAILY, TAB 03/29/19 Albuterol Sulfate* (Proair HFA*) 8.5 Gm Hfa.aer.ad, 2 PUFF INH Q4H PRN for WHEEZING AND SOB, #1 INHALER 03/29/19 Ranitidine Hcl* (Ranitidine Hcl*) 300 Mg Tablet, 300 MG GTB HS, #30 TAB 03/29/19 Levetiracetam* (Keppra*) 500 Mg Tablet, 500 MG GTB BID, TAB 03/29/19 Gabapentin* (Gabapentin*) 100 Mg Capsule, 100 MG GTB QHS, #90 CAP 03/29/19 Doxazosin Mesylate* (Doxazosin Mesylate*) 2 Mg Tablet, 2 MG GTB HS, TAB 03/29/19 Docusate Sodium* (Dok*) 100 Mg Tablet, 100 MG GTB BID, #60 CAP 03/29/19 Cyanocobalamin (Vitamin B-12) (Cyanocobalamin Injection) 1,000 Mcg/1 Ml Vial, 1000 MCG IJ EVERY MONDAY, VIAL 03/29/19 Clopidogrel Bisulfate (Clopidogrel) 75 Mg Tablet, 75 MG GTB DAILY, #30 TAB 03/29/19 Calcium Carbonate ([place]-500) 500 Mg Tablet, 500 MG GTB DAILY, TAB 03/29/19 Baclofen* (Baclofen*) 10 Mg Tablet, 10 MG GTB BID, TAB 03/29/19 Atorvastatin* (Atorvastatin*) 40 Mg Tablet, 40 MG GTB QHS, #30 TAB 03/29/19 Aspirin (Low Dose Aspirin) 81 Mg Tablet.dr, 81 MG GTB DAILY, #30 TAB 03/29/19 Medications Current Medications IV Flush (NS 3 ml) 3 ml PER PROTOCOL IV ; Start 03/29/19 at 13:30 Ondansetron HCl (Zofran Inj) 4 mg Q6H PRN IV NAUSEA/VOMITING Last administered on 04/07/19at 18:53; Admin Dose 4 MG; Start 03/29/19 at 13:30 Acetaminophen (Tylenol Tab) 650 mg Q6H PRN PO .PAIN 1-3 OR TEMP Last ad ministered on 03/31/19at 05:48; Admin Dose 650 MG; Start 03/29/19 at 13:30 Hydralazine HCl (Apresoline) 10 mg Q4H PRN IV sbp >160 Last administered on 04/16/19at 11:37; Admin Dose 10 MG; Start 03/29/19 at 14:00 Miscellaneous Information 1 ea NOTE XX ; Start 03/29/19 at 14:30 Glucose (Glutose) 15 gm Q15M PRN PO DECREASED GLUCOSE; Start 03/29/19 at 14:30 Glucose (Glutose) 22.5 gm Q15M PRN PO DECREASED GLUCOSE; Start 03/29/19 at 14:30 Dextrose (D50w Syringe) 25 ml Q15M PRN IV DECREASED GLUCOSE Last administered on 04/13/19at 05:56; Admin Dose 25 ML; Start 03/29/19 at 14:30; Status Hold Dextrose (D50w Syringe) 50 ml Q15M PRN IV DECREASED GLUCOSE; Start 03/29/19 at 14:30 Glucagon (Glucagen) 1 mg Q15M PRN IM DECREASED GLUCOSE; Start 03/29/19 at 14:30 Glucose (Glutose) 15 gm Q15M PRN BUCCAL DECREASED GLUCOSE; Start 03/29/19 at 14:30 Albumin Human 100 ml @ 100 mls/hr WITH DIALYSIS PRN IV SBP <90 DURING DIALYSIS Last administered on 04/15/19at 17:39; Admin Dose 100 MLS/HR; Start 03/29/19 at 17:00 Albuterol/ Ipratropium (Duoneb) 3 ml Q2H RESP THERAPY PRN HHN WHEEZING AND RESP DISTRESS Last administered on 04/09/19 08:52; Admin Dose 3 ML; Start 03/29/19 at 18:00 Lorazepam (Ativan) 0.5 mg Q4H PRN IV AGITATION Last administered on 04/16/19 15:45; Admin Dose 0.5 MG; Start 03/29/19 at 18:00 IV Flush (NS 10 ml) 10 ml Q8 PRN IV IV PROTOCOL; Start 03/29/19 at 18:00 Labetalol HCl (Labetalol) 10 mg Q4H PRN IV sbp >160; Start 03/30/19 at 09:00 Haloperidol (Haldol) 5 mg Q6H PRN IM agitation Last administered on 03/31/19 00:10; Admin Dose 5 MG; Start 03/30/19 at 10:00 Heparin Sodium (Porcine) (Heparin (1000 Units/ml)) 3,200 unit AFTER DIALYSIS CATHETER Last administered on 04/15/19 20:43; Admin Dose 3,200 UNIT; Start 03/30/19 at 17:00 Atorvastatin Calcium (Lipitor) 40 mg HS NGT Last administered on 04/15/19 21:03; Admin Dose 40 MG; Start 03/31/19 at 21:00 Baclofen (Lioresal) 10 mg BID GTB Last administered on 04/16/19 08:33; Admin Dose 10 MG; Start 03/31/19 at 21:00 Doxazosin Mesylate (Cardura) 2 mg DAILY NGT Last administered on 04/16/19 08:33; Admin Dose 2 MG; Start 03/31/19 at 14:30 Gabapentin (Neurontin) 100 mg QHS PO Last administered on 04/15/19 21:04; Admin Dose 100 MG; Start 03/31/19 at 21:00 Acetaminophen (Tylenol Liquid) 650 mg Q4H PRN PEG MILD PAIN(1-3)OR ELEVATED TEMP Last administered on 04/16/19 08:42; Admin Dose 650 MG; Start 03/31/19 at 16:00 Lactobacillus Acidophilus/ Rhamnosus (Culturelle) 1 cap TID GTB Last administered on 04/16/19 13:26; Admin Dose 1 CAP; Start 04/02/19 at 13:00 Epoetin [place]-epbx (Retacrit (Esrd)) 10,000 unit MoWeFr@1700 SC Last administered on 04/15/19 21:11; Admin Dose 10,000 UNIT; Start 04/03/19 at 19:30 Lansoprazole (Prevacid) 30 mg BID@0600,1800 GTB Last administered on 04/16/19 05:32; Admin Dose 30 MG; Start 04/04/19 at 18:00 Multivit/Ca Carb/ B Cmplx/FA/Prenat (Karena-Geovanni) 1 tab DAILY GTB Last administered on 04/16/19 08:33; Admin Dose 1 TAB; Start 04/04/19 at 11:30 Aspirin (Aspirin) 81 mg DAILY PO Last administered on 04/11/19 08:46; Admin Dose 81 MG; Start 04/05/19 at 09:00; Status Hold Propofol 100 ml @ 2.097 mls/ hr Q12H PRN IV AGITATION Last administered on 04/08/19 11:39; Admin Dose 6.291 MLS/HR; Start 04/08/19 at 00:00 Fentanyl 100 ml @ 2.5 mls/hr TITRATE IV Last administered on 04/13/19 22:09; Admin Dose 5 MLS/HR; Start 04/08/19 at 00:00 Midazolam HCl 50 ml @ 1 mls/hr TITRATE PRN IV agitation Last administered on 04/14/19 07:12; Admin Dose 4 MLS/HR; Start 04/08/19 at 00:00 Norepinephrine 250 ml @ 1.875 mls/ hr TITRATE IV Last administered on 04/15/19 05:45; Admin Dose 1.875 MLS/HR; Start 04/08/19 at 00:00 Nicardipine HCl 50 mg/Sodium Chloride 500 ml @ 50 mls/hr TITRATE IV ; Start 04/08/19 at 09:30 Mupirocin (Bactroban) 1 applic BID TOP Last administered on 04/16/19 08:35; Admin Dose 1 APPLIC; Start 04/09/19 at 21:00 Budesonide (Pulmicort (Neb)) 0.5 mg BID RESP THERAPY HHN Last administered on 04/16/19 08:27; Admin Dose 0.5 MG; Start 04/12/19 at 09:00 Amikacin Sulfate (Amikacin Iv Per Pharmacy) AMIKACIN PER PHARMACY NOTE XX ; Start 04/12/19 at 10:30 Metronidazole 100 ml @ 100 mls/hr Q8 IVPB Last administered on 04/16/19 13:26; Admin Dose 100 MLS/HR; Start 04/12/19 at 14:00 Carvedilol (Coreg) 12.5 mg BID NGT Last administered on 04/16/19 08:34; Admin Dose 12.5 MG; Start 04/12/19 at 21:00 Amikacin Sulfate 300 mg/Sodium Chloride 101.2 ml @ 101.2 mls/ hr AFTER DIALYSIS IVPB Last administered on 04/15/19 22:09; Admin Dose 101.2 MLS/HR; Start 04/13/19 at 09:00 Albuterol (Ventolin Hfa) 2 puff Q6H RESP THERAPY INH Last administered on 04/16/19 13:10; Admin Dose 2 PUFF; Start 04/12/19 at 20:00 Ipratropium [place] (Atrovent Hfa) 4 puff Q6H RESP THERAPY INH Last admi nistered on 04/16/19 13:10; Admin Dose 4 PUFF; Start 04/12/19 at 20:00 Dextrose 1,000 ml @ 50 mls/hr Q20H IV Last administered on 04/13/19 09:08; Admin Dose 75 MLS/HR; Start 04/13/19 at 09:00; Status Hold Metoclopramide HCl (Reglan) 5 mg Q6 IV Last administered on 04/16/19 13:26; Admin Dose 5 MG; Start 04/13/19 at 12:00 Insulin Aspart (Novolog Insulin Pen) NOVOLOG *MILD* ALGORI... Q4 SC Last adm inistered on 04/16/19 13:31; Admin Dose 2 UNIT; Start 04/13/19 at 09:00 Clopidogrel Bisulfate (plaVIX) 75 mg DAILY GTB Last administered on 04/16/19 09:39; Admin Dose 75 MG; Start 04/16/19 at 09:00 Quetiapine Fumarate (Seroquel) 50 mg QHS GTB ; Start 04/16/19 at 21:00 Assessment/Plan Hospital Course (Demo Recall) 1. History of extensive coronary artery disease status post [place] status post coronary bypass graft status post PCI 2. Status post recent CVA with possibly acute CVA 3. End-stage renal disease on hemodialysis 4. Hypertension: labile . hypotensive now 5. Dyslipidemia 6. Severe encephalopathy 7. Dysphagia status post PEG placement 8. Severe anemia and history of GI bleed 9. Respiratory failure status post intubation on the vent now 10. Shock probably septic Recommendations: Cont with aspirin Plavix Respiratory care and ventilatory support will be continued. Weaning as tolerated will defer to the pulmonary team Hemodialysis as per renal. transfuse prn vent support for now Allow for permissive HTN if acute CVA IS seen on MRI. (DONE but results still pending ) Thank you for this referral. We will continue to follow along with you SEAN CROUCH MD [facility] SEAN CROUCH MD Apr 16, 2019 15:57
--- NOTE | 2019-04-16 17:01 | CONS ---
Assessment/Plan Assessment/Plan Assessment/Plan (Daily) 1. Acute hypoxemic respiratory failure intubated on ventilator 2. Accelerated HTN 3. ESRD on HD - MWF schedule at [facility] HD dysart 4. H/o CAD s/p CABG before 5. H/o CAD with previous recent stent placement in 09/2018 6. h/o HTN 7. H/o DM II 8. h/o HL 9. 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 H/o BPH Plan: s/p HD yesterday 2.5 L removed, will continue pt on MWF schedule while being in hospital- HD ordered for monday Ventilator management as per pulmonary - pt is on Coreg 12.5 mg pO BID, BP still high , will add losartan 25 mg po daily and HYdralazine 50mg PO TID , cardura 2 mg po daily IV abx amikacin, Flagyl renally dose all abx and monitor electrolytes Epogen 47221 units SQ MWF will follow up Consultation Date/Type/Reason Admit Date/Time Mar 29, 2019 at 13:16 Initial Consult Date 03/29/19 Type of Consult NEPHROLOGY Requesting Provider: LILLIAN ZHANG MD Date/Time of Note DATE: 04/16/19 TIME: 17:01 Exam/Review of Systems Exam Vitals Vital Signs Date Temp Pulse Resp B/P (MAP) Pulse Ox O2 O2 Flow FiO2 Time Delivery Rate 04/16/19 74 16:00 04/16/19 18 160/76 96 Mechanical 14:00 (104) Ventilator 04/16/19 98.0 12:00 04/16/19 40 11:26 Intake and Output 04/15/19 04/15/19 04/16/19 1515:00 23:00 07:00 IntakeIntake Total 326.825 ml 455.325 ml 290 ml OutputOutput Total 25 ml 3375 ml 275 ml BalanceBalance 301.825 ml -2919.675 ml 15 ml Exam Constitutional: intubated on ventilator , ET tube in place Respiratory: crackles/rales, diminished breath sounds Cardiovascular: regular rate and rhythm, nl pulses Gastrointestinal: soft, non-tender Musculoskeletal: swelling (1-2+pitting edema ) Extremities: normal pulses Neurological: Non focal Results Result Diagram: 04/16/1942904/16/19 0430 Results 24hrs Laboratory Tests Test 04/15/19 17:23 04/15/19 21:02 04/16/19 00:33 04/16/19 04:30 Bedside Glucose 134 117 144 White Blood Count 12.2 H Red Blood Count 2.87 L Hemoglobin 8.4 L Hematocrit 26.1 L Mean Corpuscular Volume 90.9 Mean Corpuscular 29.3 Hemoglobin Mean Corpuscular 32.2 Hemoglobin Concent Red Cell Distribution 17.2 H Width Platelet Count 257 Mean Platelet Volume 10.5 H Immature Granulocytes % 0.800 H Neutrophils % 85.8 H Lymphocytes % 7.8 L Monocytes % 3.0 Eosinophils % 2.1 Basophils % 0.5 Nucleated Red Blood 0.0 Cells % Immature Granulocytes # 0.100 H Neutrophils # 10.4 H Lymphocytes # 1.0 Monocytes # 0.4 Eosinophils # 0.3 Basophils # 0.1 Nucleated Red Blood 0.0 Cells # Sodium Level 143 Potassium Level 3.7 Chloride Level 108 Carbon Dioxide Level 25 Anion Gap 10 Blood Urea Nitrogen 12 # Creatinine 3.95 #H Glucose Level 144 Calcium Level 9.4 Phosphorus Level 3.0 Magnesium Level 2.0 Albumin 3.1 L Test 04/16/19 05:34 04/16/19 08:46 04/16/19 13:28 Bedside Glucose 140 143 188 Medications Medication Current Medications IV Flush (NS 3 ml) 3 ml PER PROTOCOL IV ; Start 03/29/19 at 13:30 Ondansetron HCl (Zofran Inj) 4 mg Q6H PRN IV NAUSEA/VOMITING Last administered on 04/07/19at 18:53; Admin Dose 4 MG; Start 03/29/19 at 13:30 Acetaminophen (Tylenol Tab) 650 mg Q6H PRN PO .PAIN 1-3 OR TEMP Last administered on 03/31/19at 05:48; Admin Dose 650 MG; Start 03/29/19 at 13:30 Hydralazine HCl (Apresoline) 10 mg Q4H PRN IV sbp >160 Last administered on 04/16/19at 11:37; Admin Dose 10 MG; Start 03/29/19 at 14:00 Miscellaneous Information 1 ea NOTE XX ; Start 03/29/19 at 14:30 Glucose (Glutose) 15 gm Q15M PRN PO DECREASED GLUCOSE; Start 03/29/19 at 14:30 Glucose (Glutose) 22.5 gm Q15M PRN PO DECREASED GLUCOSE; Start 03/29/19 at 14:30 Dextrose (D50w Syringe) 25 ml Q15M PRN IV DECREASED GLUCOSE Last administered on 04/13/19at 05:56; Admin Dose 25 ML; Start 03/29/19 at 14:30; Status Hold Dextrose (D50w Syringe) 50 ml Q15M PRN IV DECREASED GLUCOSE; Start 03/29/19 at 14:30 Glucagon (Glucagen) 1 mg Q15M PRN IM DECREASED GLUCOSE; Start 03/29/19 at 14:30 Glucose (Glutose) 15 gm Q15M PRN BUCCAL DECREASED GLUCOSE; Start 03/29/19 at 14:30 Albumin Human 100 ml @ 100 mls/hr WITH DIALYSIS PRN IV SBP <90 DURING DIALYSIS Last administered on 04/15/19at 17:39; Admin Dose 100 MLS/HR; Start 03/29/19 at 17:00 Albuterol/ Ipratropium (Duoneb) 3 ml Q2H RESP THERAPY PRN HHN WHEEZING AND RESP DISTRESS Last administered on 04/09/19at 08:52; Admin Dose 3 ML; Start 03/29/19 at 18:00 Lorazepam (Ativan) 0.5 mg Q4H PRN IV AGITATION Last administered on 04/16/19at 15:45; Admin Dose 0.5 MG; Start 03/29/19 at 18:00 IV Flush (NS 10 ml) 10 ml Q8 PRN IV IV PROTOCOL; Start 03/29/19 at 18:00 Labetalol HCl (Labetalol) 10 mg Q4H PRN IV sbp >160; Start 03/30/19 at 09:00 Haloperidol (Haldol) 5 mg Q6H PRN IM agitation Last administered on 03/31/19at 00:10; Admin Dose 5 MG; Start 03/30/19 at 10:00 Heparin Sodium (Porcine) (Heparin (1000 Units/ml)) 3,200 unit AFTER DIALYSIS CATHETER Last administered on 04/15/19at 20:43; Admin Dose 3,200 UNIT; Start 03/30/19 at 17:00 Atorvastatin Calcium (Lipitor) 40 mg HS NGT Last administered on 04/15/19 21:03; Admin Dose 40 MG; Start 03/31/19 at 21:00 Baclofen (Lioresal) 10 mg BID GTB Last administered on 04/16/19 08:33; Admin Dose 10 MG; Start 03/31/19 at 21:00 Doxazosin Mesylate (Cardura) 2 mg DAILY NGT Last administered on 04/16/19 08:33; Admin Dose 2 MG; Start 03/31/19 at 14:30 Gabapentin (Neurontin) 100 mg QHS PO Last administered on 04/15/19 21:04; Admin Dose 100 MG; Start 03/31/19 at 21:00 Acetaminophen (Tylenol Liquid) 650 mg Q4H PRN PEG MILD PAIN(1-3)OR ELEVATED TEMP Last administered on 04/16/19 08:42; Admin Dose 650 MG; Start 03/31/19 at 16:00 Lactobacillus Acidophilus/ Rhamnosus (Culturelle) 1 cap TID GTB Last administered on 04/16/19 13:26; Admin Dose 1 CAP; Start 04/02/19 at 13:00 Epoetin [place]-epbx (Retacrit (Esrd)) 10,000 unit MoWeFr@1700 SC Last administered on 04/15/19 21:11; Admin Dose 10,000 UNIT; Start 04/03/19 at 19:30 Lansoprazole (Prevacid) 30 mg BID@0600,1800 GTB Last administered on 04/16/19 05:32; Admin Dose 30 MG; Start 04/04/19 at 18:00 Multivit/Ca Carb/ B Cmplx/FA/Prenat (Karena-Geovanni) 1 tab DAILY GTB Last administered on 04/16/19 08:33; Admin Dose 1 TAB; Start 04/04/19 at 11:30 Aspirin (Aspirin) 81 mg DAILY PO Last administered on 04/11/19 08:46; Admin Dose 81 MG; Start 04/05/19 at 09:00; Status Hold Propofol 100 ml @ 2.097 mls/ hr Q12H PRN IV AGITATION Last administered on 04/08/19 11:39; Admin Dose 6.291 MLS/HR; Start 04/08/19 at 00:00 Fentanyl 100 ml @ 2.5 mls/hr TITRATE IV Last administered on 04/13/19 22:09; Admin Dose 5 MLS/HR; Start 04/08/19 at 00:00 Midazolam HCl 50 ml @ 1 mls/hr TITRATE PRN IV agitation Last administered on 04/14/19 07:12; Admin Dose 4 MLS/HR; Start 04/08/19 at 00:00 Norepinephrine 250 ml @ 1.875 mls/ hr TITRATE IV Last administered on 04/15/19 05:45; Admin Dose 1.875 MLS/HR; Start 04/08/19 at 00:00 Nicardipine HCl 50 mg/Sodium Chloride 500 ml @ 50 mls/hr TITRATE IV ; Start 04/08/19 at 09:30 Mupirocin (Bactroban) 1 applic BID TOP Last administered on 04/16/19 08:35; Admin Dose 1 APPLIC; Start 04/09/19 at 21:00 Budesonide (Pulmicort (Neb)) 0.5 mg BID RESP THERAPY HHN Last administered on 04/16/19 08:27; Admin Dose 0.5 MG; Start 04/12/19 at 09:00 Amikacin Sulfate (Amikacin Iv Per Pharmacy) AMIKACIN PER PHARMACY NOTE XX ; Start 04/12/19 at 10:30 Metronidazole 100 ml @ 100 mls/hr Q8 IVPB Last administered on 04/16/19 13:26; Admin Dose 100 MLS/HR; Start 04/12/19 at 14:00 Carvedilol (Coreg) 12.5 mg BID NGT Last administered on 04/16/19 08:34; Admin Dose 12.5 MG; Start 04/12/19 at 21:00 Amikacin Sulfate 300 mg/Sodium Chloride 101.2 ml @ 101.2 mls/ hr AFTER DIALYSIS IVPB Last administered on 04/15/19 22:09; Admin Dose 101.2 MLS/HR; Start 04/13/19 at 09:00 Albuterol (Ventolin Hfa) 2 puff Q6H RESP THERAPY INH Last administered on 04/16/19 13:10; Admin Dose 2 PUFF; Start 04/12/19 at 20:00 Ipratropium [place] (Atrovent Hfa) 4 puff Q6H RESP THERAPY INH Last administered on 04/16/19 13:10; Admin Dose 4 PUFF; Start 04/12/19 at 20:00 Dextrose 1,000 ml @ 50 mls/hr Q20H IV Last administered on 04/13/19 09:08; Admin Dose 75 MLS/HR; Start 04/13/19 at 09:00; Status Hold Metoclopramide HCl (Reglan) 5 mg Q6 IV Last administered on 04/16/19 13:26; Admin Dose 5 MG; Start 04/13/19 at 12:00 Insulin Aspart (Novolog Insulin Pen) NOVOLOG *MILD* ALGORI... Q4 SC Last administered on 04/16/19 13:31; Admin Dose 2 UNIT; Start 04/13/19 at 09:00 Clopidogrel Bisulfate (plaVIX) 75 mg DAILY GTB Last administered on 04/16/19 09:39; Admin Dose 75 MG; Start 04/16/19 at 09:00 Quetiapine Fumarate (Seroquel) 50 mg QHS GTB ; Start 04/16/19 at 21:00 BETZAIDA YAÑEZ MD Apr 16, 2019 17:01
[2019-04-16] MEDS: ATORVASTATIN 40 MG TAB NGT SCH (21:14)
[2019-04-16] MEDS: GABAPENTIN 100 MG CAP PO SCH (21:14)
[2019-04-17] VITALS (53 sets, daily range): BP systolic 102–201; BP diastolic 53–89; PULSE 72–110; RESP 10–25
[2019-04-17] MEDS: INSULIN ASPART [NOVOLOG] 3 ML PEN SC SCH ×6 (00:52→21:00)
[2019-04-17] MEDS: DEXMEDETOMIDINE IN DEXTROSE 5% 50 ML IV SCH ×3 (01:48→19:37)
[2019-04-17] MEDS: IPRATROPIUM (HFA) 12.9 GM INHALER INH SCH ×3 (01:49→13:06)
[2019-04-17] MEDS: ALBUTEROL HFA 8 GM INHALER INH SCH ×3 (01:49→13:06)
[2019-04-17] MEDS: metroNIDAZOLE 500 MG/NS (PMX) 100 ML IVPB SCH ×3 (05:34→21:44)
[2019-04-17] MEDS: LANSOPRAZOLE 30 MG CAP GTB SCH ×2 (05:34→17:04)
[2019-04-17] MEDS: hydrALAzine 20 MG INJ IV PRN (05:34)
[2019-04-17] MEDS: METOCLOPRAMIDE 10 MG INJ IV SCH ×3 (05:34→17:04)
--- NOTE | 2019-04-17 07:33 | CONS ---
Consult Date/Type/Reason Admit Date/Time Mar 29, 2019 at 13:16 Initial Consult Date 04/07/19 Type of Consultation: cv Requesting Provider: LILLIAN ZHANG MD Date/Time of Note DATE: 04/17/19 TIME: 07:31 Subjective Interventional cardiology follow-up progress note Subjective: Discussed with the staff and Telemetry was reviewed. pt remains intubated on vent pt is no longer hypotensive and has been hypertensive now Patient nonverbal. + thick sputum per RN report objective: General: s/p intubation on the ventilator HEENT: NC/AT. pupils are equal. round. NECK:. no stridor. CV: RRR. systolic murmur; no gallop or rubs. PULM: + rhonchi. GI: SOFT, NT, ND, no rebound or guarding s/pPEG Extremity: trace B/L LE edema. no clubbing. neuro: opens his eyes Psych: calm the moment rectal: deferred : normal ECHO 04/09/19 REVIEWED Normal left ventricular systolic function. Normal left ventricular cavity size. Mild concentric left ventricular hypertrophy. Ejection fraction is visually estimated at 55 %. Tissue Doppler/Mitral Doppler indices are consistent with impaired relaxation (Stage I diastolic dysfunction). Mild mitral leaflet calcification. Mild mitral annular calcification. Mild mitral valve regurgitation. No significant aortic stenosis or insufficiency. Aortic cusps appear mildly calcified. Normal appearance of the tricuspid valve. The estimated Peak RVSP is 25 mmHg. There is trace tricuspid regurgitation. cxr 04/09/19 Persistent small left greater than right pleural effusions with associated atelectasis/infiltrate. CXR . Appropriate position of central lines and endotracheal tube. 2. Bilateral perihilar and basilar airspace opacities representing pulmonary edema or infection. 3. Small left pleural effusion. MRI Brain 04/16 1. Acute, ischemic, small vessel left thalamic infarct. 2. Chronic right greater than left bilateral basal ganglia and bilateral thalamic lacunar infarcts 3. Moderate chronic microvascular ischemic disease and diffuse volume loss 4. Chronic right frontal murguia radiata small vessel infarct 5. 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 Objective Vitals Vital Signs Date Temp Pulse Resp B/P (MAP) Pulse Ox O2 O2 Flow FiO2 Time Delivery Rate 04/17/19 81 23 141/64 95 Mechanical 06:00 (89) Ventilator 04/17/19 40 05:08 04/17/19 98.2 04:00 Intake and Output 04/16/19 04/16/19 04/17/19 1515:00 23:00 07:00 IntakeIntake Total 566.72 ml 382.46 ml 253.1 ml OutputOutput Total 15 ml 10 ml 10 ml BalanceBalance 551.72 ml 372.46 ml 243.1 ml Results/Medications Result Diagram: 04/17/19 0425 04/17/19 0425 Results 24 hrs Laboratory Tests Test 04/16/19 08:46 04/16/19 13:28 04/16/19 18:20 04/16/19 18:45 Bedside Glucose 143 188 190 Urine Color PRATIK Urine Clarity SLIGHTLY CLOUDY A Urine pH 8.0 Urine Specific 1.013 Williams Urine Ketones TRACE A Urine Nitrite NEGATIVE Urine Bilirubin NEGATIVE Urine NEGATIVE Urobilinogen Urine Leukocyte TRACE A Esterase Urine Microscopic 4 RBC Urine Microscopic 12 H WBC Urine Bacteria FEW A Urine Hyaline FEW A Casts Urine Hemoglobin 1+ H Urine Glucose 2+ H Urine Total 3+ H Protein Test 04/16/19 21:21 04/17/19 00:43 04/17/19 04:25 04/17/19 05:54 Bedside Glucose 197 186 195 White Blood Count 12.9 H Red Blood Count 3.08 L Hemoglobin 8.9 L Hematocrit 27.9 L Mean Corpuscular 90.6 Volume Mean Corpuscular 28.9 L Hemoglobin Mean Corpuscular 31.9 L Hemoglobin Concen t Red Cell 17.2 H Distribution Width Platelet Count 272 Mean Platelet 10.4 Volume Immature 1.100 H Granulocytes % Neutrophils % 84.0 H Lymphocytes % 8.1 L Monocytes % 3.6 Eosinophils % 2.7 Basophils % 0.5 Nucleated Red 0.0 Blood Cells % Immature 0.140 H Granulocytes # Neutrophils # 10.8 H Lymphocytes # 1.1 Monocytes # 0.5 Eosinophils # 0.4 Basophils # 0.1 Nucleated Red 0.0 Blood Cells # Sodium Level 143 Potassium Level 3.4 L Chloride Level 107 Carbon Dioxide 24 Level Anion Gap 12 Blood Urea 19 Nitrogen Creatinine 5.22 H Glucose Level 201 Calcium Level 9.7 Phosphorus Level 3.2 Magnesium Level 2.2 Albumin 3.2 L Home Meds Reported Medications Bisacodyl (Dulcolax) 10 Mg Supp.rect, 10 MG RC DAILY PRN for CONSTIPATION, SUPP.RECT 03/29/19 Sodium Phosphate,[place]-Dibasic (Enema Ready To Use) 133 Ml Enema, 133 ML RC EVERY 2 DAYS PRN for CONSTIPATION, ENEMA 03/29/19 Acetaminophen* (Acetaminophen*) 650 Mg Tablet, 650 MG GTB Q4 PRN for MILD PAIN LEVEL 1-3, #30 TAB AND FEVER 03/29/19 Acetaminophen* (Acetaminophen*) 500 MG Extra Strength Tablet, 1000 MG GTB Q4H PRN for MODERATE PAIN LEVEL 4-6, TAB 03/29/19 Acetaminophen* (Acetaminophen*) 500 MG Extra Strength Tablet, 1000 MG GTB BID PRN for GENERAL BODY PAIN, TAB 03/29/19 Amino Acids/Protein Hydrolys (Pro-Stat Awc Liquid) 30 Ml Liquid, 30 ML GTB DAILY SUGAR FREE 03/29/19 Multivitamin* (Daily Value*) 1 Each Tablet, 1 TAB GTB DAILY, TAB 03/29/19 Ascorbic Acid* (Vitamin C*) 500 Mg Capsule.sa, 500 MG GTB DAILY, CAP 03/29/19 Ferrous Sulfate (Ferrous Sulfate) 300 Mg/5 Ml Liquid, 325 MG GTB DAILY 03/29/19 Cran/Vitc/Mannose/Inulin/Brom (Uti-Stat Liquid) 3,875 Mg/30 Ml Liquid, 3875 MG GTB DAILY 03/29/19 Cranberry Extract (Cranberry) 425 Mg Capsule, 425 MG GTB DAILY, CAP 03/29/19 Insulin Glulisine (Apidra Solostar) 100 Unit/1 Ml Insuln.pen, 4 UNIT SQ TIDM A, #1 TUB 03/29/19 Insulin Glargine,Hum.rec.anlog (Basaglar Kwikpen U-100) 100 Unit/1 Ml Insuln.pen, 25 UNIT SC QHS, EA 03/29/19 Insulin Regular, Human (Humulin R) 100 Unit/1 Ml Vial, 0 IJ AC MEALS AND BEDTIME, VIAL 0-150 = 0 UNIT 151-200 = 1 UNIT 201-250 = 2 UNITS 251-300 = 3 UNITS 301-350 = 4 UNITS 351-400 = 5 UNITS OVER 400 GIVE 6 UNITS UNDER 70 OR OVER 400 NOTIFY 03/29/19 Sertraline Hcl* (Sertraline Hcl*) 25 Mg Tablet, 25 MG GTB DAILY, #30 TAB 03/29/19 Lorazepam* (Ativan*) 0.5 Mg Tablet, 0.5 MG GTB DAILY PRN for ANXIETY, #30 TAB 03/29/19 Quetiapine Fumarate* (Seroquel*) 25 Mg Tablet, 25 MG GTB HS, #30 TAB 03/29/19 Lorazepam* (Lorazepam*) 0.5 Mg Tablet, 0.5 MG GTB DAILY PRN for ANXIETY, TAB 03/29/19 Clonidine Hcl* (Clonidine Hcl*) 0.1 Mg Tab, 0.1 MG GTB DAILY PRN for ELEVATED BLOOD PRESSURE, TAB SBP >160 03/29/19 Azelastine Hcl* (Azelastine Hcl*) 137 Mcg/0.137 Ml [place].pump, 2 SPRAYS NASAL BID, #1 EA TO EACH NOSTRIL 03/29/19 Carvedilol* (Carvedilol*) 12.5 Mg Tablet, 12.5 MG GTB BID, #60 TAB 03/29/19 Diltiazem Hcl* (Cardizem CD*) 240 Mg Cap.sr.24h, 240 MG GTB DAILY, #30 CAP 03/29/19 Ergocalciferol (Vitamin D2) (VITAMIN D2) 50,000 Unit Capsule, 15761 UNIT GTB EVERY MONDAY, CAP 03/29/19 Hydralazine Hcl* (Hydralazine Hcl*) 50 Mg Tab, 50 MG GTB TID PRN for ELEVATED BLOOD PRESSURE, #60 TAB 03/29/19 Losartan Potassium* (Losartan Potassium*) 100 Mg Tablet, 100 MG GTB DAILY, TAB 03/29/19 Metoprolol Succinate* (Toprol XL*) 25 Mg Tab.sr.24h, 25 MG GTB DAILY, #30 TAB 03/29/19 Linagliptin (TRADJENTA) 5 Mg Tablet, 5 MG GTB DAILY, TAB 03/29/19 Albuterol Sulfate* (Proair HFA*) 8.5 Gm Hfa.aer.ad, 2 PUFF INH Q4H PRN for WHEEZING AND SOB, #1 INHALER 03/29/19 Ranitidine Hcl* (Ranitidine Hcl*) 300 Mg Tablet, 300 MG GTB HS, #30 TAB 03/29/19 Levetiracetam* (Keppra*) 500 Mg Tablet, 500 MG GTB BID, TAB 03/29/19 Gabapentin* (Gabapentin*) 100 Mg Capsule, 100 MG GTB QHS, #90 CAP 03/29/19 Doxazosin Mesylate* (Doxazosin Mesylate*) 2 Mg Tablet, 2 MG GTB HS, TAB 03/29/19 Docusate Sodium* (Dok*) 100 Mg Tablet, 100 MG GTB BID, #60 CAP 03/29/19 Cyanocobalamin (Vitamin B-12) (Cyanocobalamin Injection) 1,000 Mcg/1 Ml Vial, 1000 MCG IJ EVERY MONDAY, VIAL 03/29/19 Clopidogrel Bisulfate (Clopidogrel) 75 Mg Tablet, 75 MG GTB DAILY, #30 TAB 03/29/19 Calcium Carbonate ([place]-500) 500 Mg Tablet, 500 MG GTB DAILY, TAB 03/29/19 Baclofen* (Baclofen*) 10 Mg Tablet, 10 MG GTB BID, TAB 03/29/19 Atorvastatin* (Atorvastatin*) 40 Mg Tablet, 40 MG GTB QHS, #30 TAB 03/29/19 Aspirin (Low Dose Aspirin) 81 Mg Tablet.dr, 81 MG GTB DAILY, #30 TAB 03/29/19 Medications Current Medications IV Flush (NS 3 ml) 3 ml PER PROTOCOL IV ; Start 03/29/19 at 13:30 Ondansetron HCl (Zofran Inj) 4 mg Q6H PRN IV NAUSEA/VOMITING Last administered on 04/07/19at 18:53; Admin Dose 4 MG; Start 03/29/19 at 13:30 Acetaminophen (Tylenol Tab) 650 mg Q6H PRN PO .PAIN 1-3 OR TEMP Last administered on 03/31/19at 05:48; Admin Dose 650 MG; Start 03/29/19 at 13:30 Hydralazine HCl (Apresoline) 10 mg Q4H PRN IV sbp >160 Last administered on 04/17/19at 05:34; Admin Dose 10 MG; Start 03/29/19 at 14:00 Miscellaneous Information 1 ea NOTE XX ; Start 03/29/19 at 14:30 Glucose (Glutose) 15 gm Q15M PRN PO DECREASED GLUCOSE; Start 03/29/19 at 14:30 Glucose (Glutose) 22.5 gm Q15M PRN PO DECREASED GLUCOSE; Start 03/29/19 at 14:30 Dextrose (D50w Syringe) 25 ml Q15M PRN IV DECREASED GLUCOSE Last administered on 04/13/19 05:56; Admin Dose 25 ML; Start 03/29/19 at 14:30; Status Hold Dextrose (D50w Syringe) 50 ml Q15M PRN IV DECREASED GLUCOSE; Start 03/29/19 at 14:30 Glucagon (Glucagen) 1 mg Q15M PRN IM DECREASED GLUCOSE; Start 03/29/19 at 14:30 Glucose (Glutose) 15 gm Q15M PRN BUCCAL DECREASED GLUCOSE; Start 03/29/19 at 14:30 Albumin Human 100 ml @ 100 mls/hr WITH DIALYSIS PRN IV SBP <90 DURING DIALYSIS Last administered on 04/15/19 17:39; Admin Dose 100 MLS/HR; Start 03/29/19 at 17:00 Albuterol/ Ipratropium (Duoneb) 3 ml Q2H RESP THERAPY PRN HHN WHEEZING AND RESP DISTRESS Last administered on 04/09/19 08:52; Admin Dose 3 ML; Start 03/29/19 at 18:00 Lorazepam (Ativan) 0.5 mg Q4H PRN IV AGITATION Last administered on 04/16/19 15:45; Admin Dose 0.5 MG; Start 03/29/19 at 18:00 IV Flush (NS 10 ml) 10 ml Q8 PRN IV IV PROTOCOL; Start 03/29/19 at 18:00 Labetalol HCl (Labetalol) 10 mg Q4H PRN IV sbp >160; Start 03/30/19 at 09:00 Haloperidol (Haldol) 5 mg Q6H PRN IM agitation Last administered on 03/31/19 00:10; Admin Dose 5 MG; Start 03/30/19 at 10:00 Heparin Sodium (Porcine) (Heparin (1000 Units/ml)) 3,200 unit AFTER DIALYSIS CATHETER Last administered on 04/15/19 20:43; Admin Dose 3,200 UNIT; Start 03/30/19 at 17:00 Atorvastatin Calcium (Lipitor) 40 mg HS NGT Last administered on 04/16/19 21:14; Admin Dose 40 MG; Start 03/31/19 at 21:00 Baclofen (Lioresal) 10 mg BID GTB Last administered on 04/16/19 21:14; Admin Dose 10 MG; Start 03/31/19 at 21:00 Doxazosin Mesylate (Cardura) 2 mg DAILY NGT Last administered on 04/16/19 08:33; Admin Dose 2 MG; Start 03/31/19 at 14:30 Gabapentin (Neurontin) 100 mg QHS PO Last administered on 04/16/19 21:14; Admin Dose 100 MG; Start 03/31/19 at 21:00 Acetaminophen (Tylenol Liquid) 650 mg Q4H PRN PEG MILD PAIN(1-3)OR ELEVATED TEMP Last administered on 04/16/19 08:42; Admin Dose 650 MG; Start 03/31/19 at 1 6:00 Lactobacillus Acidophilus/ Rhamnosus (Culturelle) 1 cap TID GTB Last administered on 04/16/19 21:14; Admin Dose 1 CAP; Start 04/02/19 at 13:00 Epoetin [place]-epbx (Retacrit (Esrd)) 10,000 unit MoWeFr@1700 SC Last administered on 04/15/19 21:11; Admin Dose 10,000 UNIT; Start 04/03/19 at 19:30 Lansoprazole (Prevacid) 30 mg BID@0600,1800 GTB Last administered on 04/17/19 05:34; Admin Dose 30 MG; Start 04/04/19 at 18:00 Multivit/Ca Carb/ B Cmplx/FA/Prenat (Karena-Geovanni) 1 tab DAILY GTB Last adm inistered on 04/16/19 08:33; Admin Dose 1 TAB; Start 04/04/19 at 11:30 Aspirin (Aspirin) 81 mg DAILY PO Last administered on 04/11/19 08:46; Admin Dose 81 MG; Start 04/05/19 at 09:00; Status Hold Propofol 100 ml @ 2.097 mls/ hr Q12H PRN IV AGITATION Last administered on 04/08/19 11:39; Admin Dose 6.291 MLS/HR; Start 04/08/19 at 00:00 Fentanyl 100 ml @ 2.5 mls/hr TITRATE IV Last administered on 04/13/19 22:09; Admin Dose 5 MLS/HR; Start 04/08/19 at 00:00 Midazolam HCl 50 ml @ 1 mls/hr TITRATE PRN IV agitation Last administered on 04/14/19 07:12; Admin Dose 4 MLS/HR; Start 04/08/19 at 00:00 Norepinephrine 250 ml @ 1.875 mls/ hr TITRATE IV Last administered on 04/15/19 05:45; Admin Dose 1.875 MLS/HR; Start 04/08/19 at 00:00 Nicardipine HCl 50 mg/Sodium Chloride 500 ml @ 50 mls/hr TITRATE IV ; Start 04/08/19 at 09:30 Mupirocin (Bactroban) 1 applic BID TOP Last administered on 04/16/19 21:16; Admin Dose 1 APPLIC; Start 04/09/19 at 21:00 Budesonide (Pulmicort (Neb)) 0.5 mg BID RESP THERAPY HHN Last administered on 04/16/19 19:11; Admin Dose 0.5 MG; Start 04/12/19 at 09:00 Amikacin Sulfate (Amikacin Iv Per Pharmacy) AMIKACIN PER PHARMACY NOTE XX ; Start 04/12/19 at 10:30 Metronidazole 100 ml @ 100 mls/hr Q8 IVPB Last administered on 04/17/19 05:34; Admin Dose 100 MLS/HR; Start 04/12/19 at 14:00 Carvedilol (Coreg) 12.5 mg BID NGT Last administered on 04/16/19 21:14; Admin Dose 12.5 MG; Start 04/12/19 at 21:00 Amikacin Sulfate 300 mg/Sodium Chloride 101.2 ml @ 101.2 mls/ hr AFTER DIALYSIS IVPB Last administered on 04/15/19 22:09; Admin Dose 101.2 MLS/HR; Start 04/13/19 at 09:00 Albuterol (Ventolin Hfa) 2 puff Q6H RESP THERAPY INH Last administered on 04/17/19 01:49; Admin Dose 2 PUFF; Start 04/12/19 at 20:00 Ipratropium [place] (Atrovent Hfa) 4 puff Q6H RESP THERAPY INH Last administered on 04/17/19 01:49; Admin Dose 4 PUFF; Start 04/12/19 at 20:00 Dextrose 1,000 ml @ 50 mls/hr Q20H IV Last administered on 7/6/19at 09:08; Admin Dose 75 MLS/HR; Start 04/13/19 at 09:00; Status Hold Metoclopramide HCl (Reglan) 5 mg Q6 IV Last administered on 04/17/19 05:34; A dmin Dose 5 MG; Start 04/13/19 at 12:00 Insulin Aspart (Novolog Insulin Pen) NOVOLOG *MILD* ALGORI... Q4 SC Last administered on 04/17/19 06:01; Admin Dose 2 UNIT; Start 04/13/19 at 09:00 Clopidogrel Bisulfate (plaVIX) 75 mg DAILY GTB Last administered on 04/16/19 09:39; Admin Dose 75 MG; Start 04/16/19 at 09:00 Quetiapine Fumarate (Seroquel) 50 mg QHS GTB Last administered on 04/16/19at 21:14; Admin Dose 50 MG; Start 04/16/19 at 21:00 Hydralazine HCl (Apresoline) 50 mg TID PO Last administered on 04/16/19 23:48; Admin Dose 50 MG; Start 04/16/19 at 23:00 Losartan Potassium (Cozaar) 25 mg DAILY PO ; Start 04/17/19 at 09:00 Alteplase, Recombinant (Cathflo (Activase)) 2 mg ONCE ONCE CATHETER ; Start 04/17/19 at 08:00; Stop 04/17/19 at 08:01 Assessment/Plan Hospital Course (Demo Recall) 1. History of extensive coronary artery disease status post [place] status post coronary bypass graft status post PCI 2. Status post recent CVA with now acute CVA based on MRI 3. End-stage renal disease on hemodialysis 4. Hypertension: labile . hypotensive now 5. Dyslipidemia 6. Severe encephalopathy 7. Dysphagia status post PEG placement 8. Severe anemia and history of GI bleed 9. Respiratory failure status post intubation on the vent now Recommendations: Cont with aspirin Plavix Respiratory care and ventilatory support will be continued. Hemodialysis as per renal. transfuse prn vent support for now Allow for permissive HTN FAMILY conference today Thank you for this referral. We will continue to follow along with you SEAN CROUCH MD [facility] SEAN CROUCH MD Apr 17, 2019 07:33
[2019-04-17] MEDS ORDERED: ALTEPLASE (CATHFLO) 2 MG INJ CATHETER ONE (08:00)
--- NOTE | 2019-04-17 08:28 | CONS ---
Assessment/Plan Assessment/Plan Assessment/Plan (Daily) Full palliative care consultation to follow after noon conference today. Viewed patient's medical records on April 16, [address] Muñiz. Palliative care meeting has been scheduled for 04/17/2019 at noon. We have requested patient's 2 brothers as well as spouse to attend. If family members are still in disagreement on level of care and CODE STATUS I suggest bioethics consultation. Consultation Date/Type/Reason Admit Date/Time Mar 29, 2019 at 13:16 Date/Time of Note DATE: 04/17/19 TIME: 08:25 Past Medical History Medical History: congestive heart failure, coronary artery disease, high cho lesterol, hypertension, other (ESRD on HD ) Home Meds Reported Medications Bisacodyl (Dulcolax) 10 Mg Supp.rect, 10 MG RC DAILY PRN for CONSTIPATION, SUPP.RECT 03/29/19 Sodium Phosphate,Elk-Dibasic (Enema Ready To Use) 133 Ml Enema, 133 ML RC EVERY 2 DAYS PRN for CONSTIPATION, ENEMA 03/29/19 Acetaminophen* (Acetaminophen*) 650 Mg Tablet, 650 MG GTB Q4 PRN for MILD PAIN LEVEL 1-3, #30 TAB AND FEVER 03/29/19 Acetaminophen* (Acetaminophen*) 500 MG Extra Strength Tablet, 1000 MG GTB Q4H PRN for MODERATE PAIN LEVEL 4-6, TAB 03/29/19 Acetaminophen* (Acetaminophen*) 500 MG Extra Strength Tablet, 1000 MG GTB BID PRN for GENERAL BODY PAIN, TAB 03/29/19 Amino Acids/Protein Hydrolys (Pro-Stat Awc Liquid) 30 Ml Liquid, 30 ML GTB DAILY SUGAR FREE 03/29/19 Multivitamin* (Daily Value*) 1 Each Tablet, 1 TAB GTB DAILY, TAB 03/29/19 Ascorbic Acid* (Vitamin C*) 500 Mg Capsule.sa, 500 MG GTB DAILY, CAP 03/29/19 Ferrous Sulfate (Ferrous Sulfate) 300 Mg/5 Ml Liquid, 325 MG GTB DAILY 03/29/19 Cran/Vitc/Mannose/Inulin/Brom (Uti-Stat Liquid) 3,875 Mg/30 Ml Liquid, 3875 MG GTB DAILY 03/29/19 Cranberry Extract (Cranberry) 425 Mg Capsule, 425 MG GTB DAILY, CAP 03/29/19 Insulin Glulisine (Apidra Solostar) 100 Unit/1 Ml Insuln.pen, 4 UNIT SQ TIDM A, #1 TUB 03/29/19 Insulin Glargine,Hum.rec.anlog (Basaglar Gigiikpen U-100) 100 Unit/1 Ml Insuln.pen, 25 UNIT SC QHS, EA 03/29/19 Insulin Regular, Human (Humulin R) 100 Unit/1 Ml Vial, 0 IJ AC MEALS AND BEDTIME, VIAL 0-150 = 0 UNIT 151-200 = 1 UNIT 201-250 = 2 UNITS 251-300 = 3 UNITS 301-350 = 4 UNITS 351-400 = 5 UNITS OVER 400 GIVE 6 UNITS UNDER 70 OR OVER 400 NOTIFY 03/29/19 Sertraline Hcl* (Sertraline Hcl*) 25 Mg Tablet, 25 MG GTB DAILY, #30 TAB 03/29/19 Lorazepam* (Ativan*) 0.5 Mg Tablet, 0.5 MG GTB DAILY PRN for ANXIETY, #30 TAB 03/29/19 Quetiapine Fumarate* (Seroquel*) 25 Mg Tablet, 25 MG GTB HS, #30 TAB 03/29/19 Lorazepam* (Lorazepam*) 0.5 Mg Tablet, 0.5 MG GTB DAILY PRN for ANXIETY, TAB 03/29/19 Clonidine Hcl* (Clonidine Hcl*) 0.1 Mg Tab, 0.1 MG GTB DAILY PRN for ELEVATED BLOOD PRESSURE, TAB SBP >160 03/29/19 Azelastine Hcl* (Azelastine Hcl*) 137 Mcg/0.137 Ml [place] Pos.pump, 2 SPRAYS NASAL BID, #1 EA TO EACH NOSTRIL 03/29/19 Carvedilol* (Carvedilol*) 12.5 Mg Tablet, 12.5 MG GTB BID, #60 TAB 03/29/19 Diltiazem Hcl* (Cardizem CD*) 240 Mg Cap.sr.24h, 240 MG GTB DAILY, #30 CAP 03/29/19 Ergocalciferol (Vitamin D2) (VITAMIN D2) 50,000 Unit Capsule, 34905 UNIT GTB EVERY MONDAY, CAP 03/29/19 Hydralazine Hcl* (Hydralazine Hcl*) 50 Mg Tab, 50 MG GTB TID PRN for ELEVATED BLOOD PRESSURE, #60 TAB 03/29/19 Losartan Potassium* (Losartan Potassium*) 100 Mg Tablet, 100 MG GTB DAILY, TAB 03/29/19 Metoprolol Succinate* (Toprol XL*) 25 Mg Tab.sr.24h, 25 MG GTB DAILY, #30 TAB 03/29/19 Linagliptin (TRADJENTA) 5 Mg Tablet, 5 MG GTB DAILY, TAB 03/29/19 Albuterol Sulfate* (Proair HFA*) 8.5 Gm Hfa.aer.ad, 2 PUFF INH Q4H PRN for WHEEZING AND SOB, #1 INHALER 03/29/19 Ranitidine Hcl* (Ranitidine Hcl*) 300 Mg Tablet, 300 MG GTB HS, #30 TAB 03/29/19 Levetiracetam* (Keppra*) 500 Mg Tablet, 500 MG GTB BID, TAB 03/29/19 Gabapentin* (Gabapentin*) 100 Mg Capsule, 100 MG GTB QHS, #90 CAP 03/29/19 Doxazosin Mesylate* (Doxazosin Mesylate*) 2 Mg Tablet, 2 MG GTB HS, TAB 03/29/19 Docusate Sodium* (Dok*) 100 Mg Tablet, 100 MG GTB BID, #60 CAP 03/29/19 Cyanocobalamin (Vitamin B-12) (Cyanocobalamin Injection) 1,000 Mcg/1 Ml Vial, 1000 MCG IJ EVERY MONDAY, VIAL 03/29/19 Clopidogrel Bisulfate (Clopidogrel) 75 Mg Tablet, 75 MG GTB DAILY, #30 TAB 03/29/19 Calcium Carbonate ([place]co-500) 500 Mg Tablet, 500 MG GTB DAILY, TAB 03/29/19 Baclofen* (Baclofen*) 10 Mg Tablet, 10 MG GTB BID, TAB 03/29/19 Atorvastatin* (Atorvastatin*) 40 Mg Tablet, 40 MG GTB QHS, #30 TAB 03/29/19 Aspirin (Low Dose Aspirin) 81 Mg Tablet.dr, 81 MG GTB DAILY, #30 TAB 03/29/19 Medications Current Medications IV Flush (NS 3 ml) 3 ml PER PROTOCOL IV ; Start 03/29/19 at 13:30 Ondansetron HCl (Zofran Inj) 4 mg Q6H PRN IV NAUSEA/VOMITING Last administered on 04/07/19at 18:53; Admin Dose 4 MG; Start 03/29/19 at 13:30 Acetaminophen (Tylenol Tab) 650 mg Q6H PRN PO .PAIN 1-3 OR TEMP Last administered on 03/31/19at 05:48; Admin Dose 650 MG; Start 03/29/19 at 13:30 Hydralazine HCl (Apresoline) 10 mg Q4H PRN IV sbp >185 Last administered on 04/17/19at 05:34; Admin Dose 10 MG; Start 03/29/19 at 14:00 Miscellaneous Information 1 ea NOTE XX ; Start 03/29/19 at 14:30 Glucose (Glutose) 15 gm Q15M PRN PO DECREASED GLUCOSE; Start 03/29/19 at 14:30 Glucose (Glutose) 22.5 gm Q15M PRN PO DECREASED GLUCOSE; Start 03/29/19 at 14:30 Dextrose (D50w Syringe) 25 ml Q15M PRN IV DECREASED GLUCOSE Last administered on 04/13/19at 05:56; Admin Dose 25 ML; Start 03/29/19 at 14:30; Status Hold Dextrose (D50w Syringe) 50 ml Q15M PRN IV DECREASED GLUCOSE; Start 03/29/19 at 14:30 Glucagon (Glucagen) 1 mg Q15M PRN IM DECREASED GLUCOSE; Start 03/29/19 at 14:30 Glucose (Glutose) 15 gm Q15M PRN BUCCAL DECREASED GLUCOSE; Start 03/29/19 at 14:30 Albumin Human 100 ml @ 100 mls/hr WITH DIALYSIS PRN IV SBP <90 DURING DIALYSIS Last administered on 04/15/19at 17:39; Admin Dose 100 MLS/HR; Start 03/29/19 at 17:00 Albuterol/ Ipratropium (Duoneb) 3 ml Q2H RESP THERAPY PRN HHN WHEEZING AND RESP DISTRESS Last administered on 04/09/19at 08:52; Admin Dose 3 ML; Start 03/29/19 at 18:00 Lorazepam (Ativan) 0.5 mg Q4H PRN IV AGITATION Last administered on 04/16/19at 15:45; Admin Dose 0.5 MG; Start 03/29/19 at 18:00 IV Flush (NS 10 ml) 10 ml Q8 PRN IV IV PROTOCOL; Start 03/29/19 at 18:00 Labetalol HCl (Labetalol) 10 mg Q4H PRN IV sbp >160; Start 03/30/19 at 09:00 Haloperidol (Haldol) 5 mg Q6H PRN IM agitation Last administered on 03/31/19 00:10; Admin Dose 5 MG; Start 03/30/19 at 10:00 Heparin Sodium (Porcine) (Heparin (1000 Units/ml)) 3,200 unit AFTER DIALYSIS CATHETER Last administered on 04/15/19 20:43; Admin Dose 3,200 UNIT; Start 03/30/19 at 17:00 Atorvastatin Calcium (Lipitor) 40 mg HS NGT Last administered on 04/16/19 21:14; Admin Dose 40 MG; Start 03/31/19 at 21:00 Baclofen (Lioresal) 10 mg BID GTB Last administered on 04/16/19 21:14; Admin Dose 10 MG; Start 03/31/19 at 21:00 Doxazosin Mesylate (Cardura) 2 mg DAILY NGT Last administered on 04/16/19 08:33; Admin Dose 2 MG; Start 03/31/19 at 14:30 Gabapentin (Neurontin) 100 mg QHS PO Last administered on 04/16/19 21:14; Admin Dose 100 MG; Start 03/31/19 at 21:00 Acetaminophen (Tylenol Liquid) 650 mg Q4H PRN PEG MILD PAIN(1-3)OR ELEVATED TEMP Last administered on 04/16/19 08:42; Admin Dose 650 MG; Start 03/31/19 at 16:00 Lactobacillus Acidophilus/ Rhamnosus (Culturelle) 1 cap TID GTB Last administered on 04/16/19 21:14; Admin Dose 1 CAP; Start 04/02/19 at 13:00 Epoetin [place]-epbx (Retacrit (Esrd)) 10,000 unit MoWeFr@1700 SC Last administered on 04/15/19 21:11; Admin Dose 10,000 UNIT; Start 04/03/19 at 19:30 Lansoprazole (Prevacid) 30 mg BID@0600,1800 GTB Last administered on 04/17/19 05:34; Admin Dose 30 MG; Start 04/04/19 at 18:00 Multivit/Ca Carb/ B Cmplx/FA/Prenat (Karena-Geovanni) 1 tab DAILY GTB Last administered on 04/16/19 08:33; Admin Dose 1 TAB; Start 04/04/19 at 11:30 Aspirin (Aspirin) 81 mg DAILY PO Last administered on 04/11/19 08:46; Admin Dose 81 MG; Start 04/05/19 at 09:00; Status Hold Propofol 100 ml @ 2.097 mls/ hr Q12H PRN IV AGITATION Last administered on 04/08/19 11:39; Admin Dose 6.291 MLS/HR; Start 04/08/19 at 00:00 Fentanyl 100 ml @ 2.5 mls/hr TITRATE IV Last administered on 04/13/19 22:09; Admin Dose 5 MLS/HR; Start 04/08/19 at 00:00 Midazolam HCl 50 ml @ 1 mls/hr TITRATE PRN IV agitation Last administered on 04/14/19 07:12; Admin Dose 4 MLS/HR; Start 04/08/19 at 00:00 Norepinephrine 250 ml @ 1.875 mls/ hr TITRATE IV Last administered on 04/15/19 05:45; Admin Dose 1.875 MLS/HR; Start 04/08/19 at 00:00 Nicardipine HCl 50 mg/Sodium Chloride 500 ml @ 50 mls/hr TITRATE IV ; Start 04/08/19 at 09:30 Mupirocin (Bactroban) 1 applic BID TOP Last administered on 04/16/19 21:16; Admin Dose 1 APPLIC; Start 04/09/19 at 21:00 Budesonide (Pulmicort (Neb)) 0.5 mg BID RESP THERAPY HHN Last administered on 04/16/19 19:11; Admin Dose 0.5 MG; Start 04/12/19 at 09:00 Amikacin Sulfate (Amikacin Iv Per Pharmacy) AMIKACIN PER PHARMACY NOTE XX ; Start 04/12/19 at 10:30 Metronidazole 100 ml @ 100 mls/hr Q8 IVPB Last administered on 04/17/19 05:34; Admin Dose 100 MLS/HR; Start 04/12/19 at 14:00 Carvedilol (Coreg) 12.5 mg BID NGT Last administered on 04/16/19 21:14; Admin Dose 12.5 MG; Start 04/12/19 at 21:00 Amikacin Sulfate 300 mg/Sodium Chloride 101.2 ml @ 101.2 mls/ hr AFTER DIALYSIS IVPB Last administered on 04/15/19 22:09; Admin Dose 101.2 MLS/HR; Start 04/13/19 at 09:00 Albuterol (Ventolin Hfa) 2 puff Q6H RESP THERAPY INH Last administered on 04/17/19 07:43; Admin Dose 2 PUFF; Start 04/12/19 at 20:00 Ipratropium [place] (Atrovent Hfa) 4 puff Q6H RESP THERAPY INH Last administered on 04/17/19 07:43; Admin Dose 4 PUFF; Start 04/12/19 at 20:00 Dextrose 1,000 ml @ 50 mls/hr Q20H IV Last administered on 04/13/19 09:08; Admin Dose 75 MLS/HR; Start 04/13/19 at 09:00; Status Hold Metoclopramide HCl (Reglan) 5 mg Q6 IV Last administered on 04/17/19 05:34; Admin Dose 5 MG; Start 04/13/19 at 12:00 Insulin Aspart (Novolog Insulin Pen) NOVOLOG *MILD* ALGORI... Q4 SC Last administered on 04/17/19 06:01; Admin Dose 2 UNIT; Start 04/13/19 at 09:00 Clopidogrel Bisulfate (plaVIX) 75 mg DAILY GTB Last administered on 04/16/19 09:39; Admin Dose 75 MG; Start 04/16/19 at 09:00 Quetiapine Fumarate (Seroquel) 50 mg QHS GTB Last administered on 04/16/19 21:14; Admin Dose 50 MG; Start 04/16/19 at 21:00 Losartan Potassium (Cozaar) 25 mg DAILY PO ; Start 04/17/19 at 09:00 Allergies: Coded Allergies: No Known Drug Allergies (Unverified Allergy, Unknown, 05/31/18) Past Surgical History Past Surgical Hx: coronary bypass surgery, other (Right chest permacath ) Social History Alcohol Use: none Smoking Status: Never smoker Drug Use: none Exam/Review of Systems Exam Vitals Vital Signs Date Temp Pulse Resp B/P (MAP) Pulse Ox O2 O2 Flow FiO2 Time Delivery Rate 04/17/19 82 21 97 40 07:40 04/17/19 141/64 Mechanical 06:00 (89) Ventilator 04/17/19 98.2 04:00 Intake and Output 04/16/19 04/16/19 04/17/19 1515:00 23:00 07:00 IntakeIntake Total 566.72 ml 382.46 ml 253.1 ml OutputOutput Total 15 ml 10 ml 10 ml BalanceBalance 551.72 ml 372.46 ml 243.1 ml Results Result Diagram: 04/17/19 0425 04/17/19 0425 Results 24hrs Laboratory Tests Test 04/16/19 08:46 04/16/19 13:28 04/16/19 18:20 04/16/19 18:45 Bedside Glucose 143 188 190 Urine Color PRATIK Urine Clarity SLIGHTLY CLOUDY A Urine pH 8.0 Urine Specific 1.013 [place]ork Urine Ketones TRACE A Urine Nitrite NEGATIVE Urine Bilirubin NEGATIVE Urine NEGATIVE Urobilinogen Urine Leukocyte TRACE A Esterase Urine Microscopic 4 RBC Urine Microscopic 12 H WBC Urine Bacteria FEW A Urine Hyaline FEW A Casts Urine Hemoglobin 1+ H Urine Glucose 2+ H Urine Total 3+ H Protein Test 04/16/19 21:21 04/17/19 00:43 04/17/19 04:25 04/17/19 05:54 Bedside Glucose 197 186 195 White Blood Count 12.9 H Red Blood Count 3.08 L Hemoglobin 8.9 L Hematocrit 27.9 L Mean Corpuscular 90.6 Volume Mean Corpuscular 28.9 L Hemoglobin Mean Corpuscular 31.9 L Hemoglobin Concen t Red Cell 17.2 H Distribution Width Platelet Count 272 Mean Platelet 10.4 Volume Immature 1.100 H Granulocytes % Neutrophils % 84.0 H Lymphocytes % 8.1 L Monocytes % 3.6 Eosinophils % 2.7 Basophils % 0.5 Nucleated Red 0.0 Blood Cells % Immature 0.140 H Granulocytes # Neutrophils # 10.8 H Lymphocytes # 1.1 Monocytes # 0.5 Eosinophils # 0.4 Basophils # 0.1 Nucleated Red 0.0 Blood Cells # Sodium Level 143 Potassium Level 3.4 L Chloride Level 107 Carbon Dioxide 24 Level Anion Gap 12 Blood Urea 19 Nitrogen Creatinine 5.22 H Glucose Level 201 Calcium Level 9.7 Phosphorus Level 3.2 Magnesium Level 2.2 Albumin 3.2 L Medications Medication Current Medications IV Flush (NS 3 ml) 3 ml PER PROTOCOL IV ; Start 03/29/19 at 13:30 Ondansetron HCl (Zofran Inj) 4 mg Q6H PRN IV NAUSEA/VOMITING Last administered on 04/07/19 18:53; Admin Dose 4 MG; Start 03/29/19 at 13:30 Acetaminophen (Tylenol Tab) 650 mg Q6H PRN PO .PAIN 1-3 OR TEMP Last administered on 03/31/19 05:48; Admin Dose 650 MG; Start 03/29/19 at 13:30 Hydralazine HCl (Apresoline) 10 mg Q4H PRN IV sbp >185 Last administered on 04/17/19 05:34; Admin Dose 10 MG; Start 03/29/19 at 14:00 Miscellaneous Information 1 ea NOTE XX ; Start 03/29/19 at 14:30 Glucose (Glutose) 15 gm Q15M PRN PO DECREASED GLUCOSE; Start 03/29/19 at 14:30 Glucose (Glutose) 22.5 gm Q15M PRN PO DECREASED GLUCOSE; Start 03/29/19 at 14:3 0 Dextrose (D50w Syringe) 25 ml Q15M PRN IV DECREASED GLUCOSE Last administered on 04/13/19 05:56; Admin Dose 25 ML; Start 03/29/19 at 14:30; Status Hold Dextrose (D50w Syringe) 50 ml Q15M PRN IV DECREASED GLUCOSE; Start 03/29/19 at 14:30 Glucagon (Glucagen) 1 mg Q15M PRN IM DECREASED GLUCOSE; Start 03/29/19 at 14:30 Glucose (Glutose) 15 gm Q15M PRN BUCCAL DECREASED GLUCOSE; Start 03/29/19 at 14:30 Albumin Human 100 ml @ 100 mls/hr WITH DIALYSIS PRN IV SBP <90 DURING DIALYSIS Last administered on 04/15/19 17:39; Admin Dose 100 MLS/HR; Start 03/29/19 at 17:00 Albuterol/ Ipratropium (Duoneb) 3 ml Q2H RESP THERAPY PRN HHN WHEEZING AND RESP DISTRESS Last administered on 04/09/19 08:52; Admin Dose 3 ML; Start 03/29/19 at 18:00 Lorazepam (Ativan) 0.5 mg Q4H PRN IV AGITATION Last administered on 04/16/19 15:45; Admin Dose 0.5 MG; Start 03/29/19 at 18:00 IV Flush (NS 10 ml) 10 ml Q8 PRN IV IV PROTOCOL; Start 03/29/19 at 18:00 Labetalol HCl (Labetalol) 10 mg Q4H PRN IV sbp >160; Start 03/30/19 at 09:00 Haloperidol (Haldol) 5 mg Q6H PRN IM agitation Last administered on 03/31/19at 0 0:10; Admin Dose 5 MG; Start 03/30/19 at 10:00 Heparin Sodium (Porcine) (Heparin (1000 Units/ml)) 3,200 unit AFTER DIALYSIS CATHETER Last administered on 04/15/19 20:43; Admin Dose 3,200 UNIT; Start 03/30/19 at 17:00 Atorvastatin Calcium (Lipitor) 40 mg HS NGT Last administered on 04/16/19 21:14; Admin Dose 40 MG; Start 03/31/19 at 21:00 Baclofen (Lioresal) 10 mg BID GTB Last administered on 04/16/19 21:14; Admin Dose 10 MG; Start 03/31/19 at 21:00 Doxazosin Mesylate (Cardura) 2 mg DAILY NGT Last administered on 04/16/19 08:33; Admin Dose 2 MG; Start 03/31/19 at 14:30 Gabapentin (Neurontin) 100 mg QHS PO Last administered on 04/16/19 21:14; Admin Dose 100 MG; Start 03/31/19 at 21:00 Acetaminophen (Tylenol Liquid) 650 mg Q4H PRN PEG MILD PAIN(1-3)OR ELEVATED TEMP Last administered on 04/16/19 08:42; Admin Dose 650 MG; Start 03/31/19 at 16:00 Lactobacillus Acidophilus/ Rhamnosus (Culturelle) 1 cap TID GTB Last administered on 04/16/19 21:14; Admin Dose 1 CAP; Start 04/02/19 at 13:00 Epoetin [place]-epbx (Retacrit (Esrd)) 10,000 unit MoWeFr@1700 SC Last administered on 04/15/19 21:11; Admin Dose 10,000 UNIT; Start 04/03/19 at 19:30 Lansoprazole (Prevacid) 30 mg BID@0600,1800 GTB Last administered on 04/17/19 05:34; Admin Dose 30 MG; Start 04/04/19 at 18:00 Multivit/Ca Carb/ B Cmplx/FA/Prenat (Karena-Geovanni) 1 tab DAILY GTB Last administered on 04/16/19 08:33; Admin Dose 1 TAB; Start 04/04/19 at 11:30 Aspirin (Aspirin) 81 mg DAILY PO Last administered on 04/11/19 08:46; Admin Dose 81 MG; Start 04/05/19 at 09:00; Status Hold Propofol 100 ml @ 2.097 mls/ hr Q12H PRN IV AGITATION Last administered on 04/08/19 11:39; Admin Dose 6.291 MLS/HR; Start 04/08/19 at 00:00 Fentanyl 100 ml @ 2.5 mls/hr TITRATE IV Last administered on 04/13/19 22:09; Admin Dose 5 MLS/HR; Start 04/08/19 at 00:00 Midazolam HCl 50 ml @ 1 mls/hr TITRATE PRN IV agitation Last administered on 04/14/19 07:12; Admin Dose 4 MLS/HR; Start 04/08/19 at 00:00 Norepinephrine 250 ml @ 1.875 mls/ hr TITRATE IV Last administered on 04/15/19 05:45; Admin Dose 1.875 MLS/HR; Start 04/08/19 at 00:00 Nicardipine HCl 50 mg/Sodium Chloride 500 ml @ 50 mls/hr TITRATE IV ; Start 04/08/19 at 09:30 Mupirocin (Bactroban) 1 applic BID TOP Last administered on 04/16/19 21:16; Admin Dose 1 APPLIC; Start 04/09/19 at 21:00 Budesonide (Pulmicort (Neb)) 0.5 mg BID RESP THERAPY HHN Last administered on 04/16/19 19:11; Admin Dose 0.5 MG; Start 04/12/19 at 09:00 Amikacin Sulfate (Amikacin Iv Per Pharmacy) AMIKACIN PER PHARMACY NOTE XX ; Start 04/12/19 at 10:30 Metronidazole 100 ml @ 100 mls/hr Q8 IVPB Last administered on 04/17/19 05:34; Admin Dose 100 MLS/HR; Start 04/12/19 at 14:00 Carvedilol (Coreg) 12.5 mg BID NGT Last administered on 04/16/19 21:14; Admin Dose 12.5 MG; Start 04/12/19 at 21:00 Amikacin Sulfate 300 mg/Sodium Chloride 101.2 ml @ 101.2 mls/ hr AFTER DIALYSIS IVPB Last administered on 04/15/19 22:09; Admin Dose 101.2 MLS/HR; Start 04/13/19 at 09:00 Albuterol (Ventolin Hfa) 2 puff Q6H RESP THERAPY INH Last administered on 04/17/19 07:43; Admin Dose 2 PUFF; Start 04/12/19 at 20:00 Ipratropium [place] (Atrovent Hfa) 4 puff Q6H RESP THERAPY INH Last administered on 04/17/19 07:43; Admin Dose 4 PUFF; Start 04/12/19 at 20:00 Dextrose 1,000 ml @ 50 mls/hr Q20H IV Last administered on 04/13/19 09:08; Admin Dose 75 MLS/HR; Start 04/13/19 at 09:00; Status Hold Metoclopramide HCl (Reglan) 5 mg Q6 IV Last administered on 04/17/19 05:34; Admin Dose 5 MG; Start 04/13/19 at 12:00 Insulin Aspart (Novolog Insulin Pen) NOVOLOG *MILD* ALGORI... Q4 SC Last administered on 04/17/19 06:01; Admin Dose 2 UNIT; Start 04/13/19 at 09:00 Clopidogrel Bisulfate (plaVIX) 75 mg DAILY GTB Last administered on 04/16/19 09:39; Admin Dose 75 MG; Start 04/16/19 at 09:00 Quetiapine Fumarate (Seroquel) 50 mg QHS GTB Last administered on 04/16/19 21:14; Admin Dose 50 MG; Start 04/16/19 at 21:00 Losartan Potassium (Cozaar) 25 mg DAILY PO ; Start 04/17/19 at 09:00 BRENNON GOMEZ Apr 17, 2019 08:28
[2019-04-17] MEDS: CLOPIDOGREL 75 MG TAB GTB SCH (08:57)
[2019-04-17] MEDS: MULTIVIT/CA CARB/B CMPLX/FA TAB GTB SCH (08:57)
[2019-04-17] MEDS: LACTOBACILLUS RHAMNOSUS CAP GTB SCH ×3 (08:57→21:44)
[2019-04-17] MEDS: BACLOFEN 10 MG TAB GTB SCH ×2 (08:58→21:44)
[2019-04-17] MEDS: LOSARTAN 25 MG TAB PO SCH (09:00)
[2019-04-17] MEDS: DOXAZOSIN 2 MG TAB NGT SCH (09:01)
[2019-04-17] MEDS: MUPIROCIN 2% 22 GM OINT TOP SCH ×2 (09:06→21:45)
--- NOTE | 2019-04-17 09:19 | CONS ---
Assessment/Plan Assessment/Plan Assessment/Plan (Daily) Chest x-ray showing persistent CHF pattern. Related setting; assist control of 18, tidal volume 500, PEEP of 5, 40% FiO2. Patient is currently on Precedex drip 0.4 mics per kilogram per hour. Assessment and recommendations; 1. Patient admitted for respiratory failure due to CHF and sepsis. Klebsiella and Serratia culture from sputum as well. Patient with bilateral pneumonia with mild interval radiological improvement. 2. Multiple CVAs with MRI from yesterday showing a new CVA. 3. Chronic renal failure, dialysis dependent. 4. History of aortic valve replacement in the past. 5. Hypertension 6. Anemia 7. BPH Continue current supportive care. Hemodialysis per summer law associate. Perform a CPAP trial as tolerated. Prognosis appears very guarded at this point. If the patient fails weaning trials from ventilator, he will likely need to have a tracheostomy performed. However there is a family conference today regarding further goals of care. Consultation Date/Type/Reason Admit Date/Time Mar 29, 2019 at 13:16 Initial Consult Date 04/07/19 Type of Consult Pulmonary/critical care Patient condition remains critical. Has failed ventilator weaning trials General exam; middle-aged male, orally intubated, awake but noncommunicative. Currently no distress. Requesting Provider: LILLIAN ZHANG MD Date/Time of Note DATE: 04/17/19 TIME: 09:16 24 HR Interval Summary Free Text/Dictation Patient's condition remains critical. Still exhibiting very poor mental status. General exam; middle-aged male, orally intubated. Awake but noncommunicative. Currently no distress. Exam/Review of Systems Exam Vitals Vital Signs Date Temp Pulse Resp B/P (MAP) Pulse Ox O2 O2 Flow FiO2 Time Delivery Rate 04/17/19 83 08:00 04/17/19 21 97 40 07:40 04/17/19 141/64 Mechanical 06:00 (89) Ventilator 04/17/19 98.2 04:00 Intake and Output 04/16/19 04/16/19 04/17/19 1515:00 23:00 07:00 IntakeIntake Total 566.72 ml 382.46 ml 253.1 ml OutputOutput Total 15 ml 10 ml 10 ml BalanceBalance 551.72 ml 372.46 ml 243.1 ml Exam H EENT exam; supple neck, positive JVD. No lymphadenopathy. Midline trachea. No thyromegaly. Orally intubated. Pupils are small bilaterally. Chest exam; diminished breath sounds bilaterally. S1-S2 audible, no murmurs. Regular rhythm. There is a well-healed sternal scar. Abdomen exam; soft, no organomegaly. Bowel sounds are audible. Extremity exam; trace peripheral edema. [employer] exam; patient awake but does not follow any commands. Results Result Diagram: 04/17/19 0425 04/17/19 0425 Results 24hrs Laboratory Tests Test 04/16/19 13:28 04/16/19 18:20 04/16/19 18:45 04/16/19 21:21 Bedside Glucose 188 190 197 Urine Color PARTIK Urine Clarity SLIGHTLY CLOUDY A Urine pH 8.0 Urine Specific 1.013 [place] Urine Ketones TRACE A Urine Nitrite NEGATIVE Urine Bilirubin NEGATIVE Urine NEGATIVE Urobilinogen Urine Leukocyte TRACE A Esterase Urine Microscopic 4 RBC Urine Microscopic 12 H WBC Urine Bacteria FEW A Urine Hyaline FEW A Casts Urine Hemoglobin 1+ H Urine Glucose 2+ H Urine Total 3+ H Protein Test 04/17/19 00:43 04/17/19 04:25 04/17/19 05:54 Bedside Glucose 186 195 White Blood Count 12.9 H Red Blood Count 3.08 L Hemoglobin 8.9 L Hematocrit 27.9 L Mean Corpuscular 90.6 Volume Mean Corpuscular 28.9 L Hemoglobin Mean Corpuscular 31.9 L Hemoglobin Concen t Red Cell 17.2 H Distribution Width Platelet Count 272 Mean Platelet 10.4 Volume Immature 1.100 H Granulocytes % Neutrophils % 84.0 H Lymphocytes % 8.1 L Monocytes % 3.6 Eosinophils % 2.7 Basophils % 0.5 Nucleated Red 0.0 Blood Cells % Immature 0.140 H Granulocytes # Neutrophils # 10.8 H Lymphocytes # 1.1 Monocytes # 0.5 Eosinophils # 0.4 Basophils # 0.1 Nucleated Red 0.0 Blood Cells # Sodium Level 143 Potassium Level 3.4 L Chloride Level 107 Carbon Dioxide 24 Level Anion Gap 12 Blood Urea 19 Nitrogen Creatinine 5.22 H Glucose Level 201 Calcium Level 9.7 Phosphorus Level 3.2 Magnesium Level 2.2 Albumin 3.2 L Medications Medication Current Medications IV Flush (NS 3 ml) 3 ml PER PROTOCOL IV ; Start 03/29/19 at 13:30 Ondansetron HCl (Zofran Inj) 4 mg Q6H PRN IV NAUSEA/VOMITING Last administered on 04/07/19 18:53; Admin Dose 4 MG; Start 03/29/19 at 13:30 Acetaminophen (Tylenol Tab) 650 mg Q6H PRN PO .PAIN 1-3 OR TEMP Last administered on 03/31/19 05:48; Admin Dose 650 MG; Start 03/29/19 at 13:30 Hydralazine HCl (Apresoline) 10 mg Q4H PRN IV sbp >185 Last administered on 04/17/19 05:34; Admin Dose 10 MG; Start 03/29/19 at 14:00 Miscellaneous Information 1 ea NOTE XX ; Start 03/29/19 at 14:30 Glucose (Glutose) 15 gm Q15M PRN PO DECREASED GLUCOSE; Start 03/29/19 at 14:30 Glucose (Glutose) 22.5 gm Q15M PRN PO DECREASED GLUCOSE; Start 03/29/19 at 14:30 Dextrose (D50w Syringe) 25 ml Q15M PRN IV DECREASED GLUCOSE Last administered on 04/13/19 05:56; Admin Dose 25 ML; Start 03/29/19 at 14:30; Status Hold Dextrose (D50w Syringe) 50 ml Q15M PRN IV DECREASED GLUCOSE; Start 03/29/19 at 14:30 Glucagon (Glucagen) 1 mg Q15M PRN IM DECREASED GLUCOSE; Start 03/29/19 at 14:30 Glucose (Glutose) 15 gm Q15M PRN BUCCAL DECREASED GLUCOSE; Start 03/29/19 at 14:30 Albumin Human 100 ml @ 100 mls/hr WITH DIALYSIS PRN IV SBP <90 DURING DIALYSIS Last administered on 04/15/19 17:39; Admin Dose 100 MLS/HR; Start 03/29/19 at 17:00 Albuterol/ Ipratropium (Duoneb) 3 ml Q2H RESP THERAPY PRN HHN WHEEZING AND RESP DISTRESS Last administered on 04/09/19 08:52; Admin Dose 3 ML; Start 03/29/19 at 18:00 Lorazepam (Ativan) 0.5 mg Q4H PRN IV AGITATION Last administered on 04/16/19 15:45; Admin Dose 0.5 MG; Start 03/29/19 at 18:00 IV Flush (NS 10 ml) 10 ml Q8 PRN IV IV PROTOCOL; Start 03/29/19 at 18:00 Labetalol HCl (Labetalol) 10 mg Q4H PRN IV sbp >160; Start 03/30/19 at 09:00 Haloperidol (Haldol) 5 mg Q6H PRN IM agitation Last administered on 03/31/19 00:10; Admin Dose 5 MG; Start 03/30/19 at 10:00 Heparin Sodium (Porcine) (Heparin (1000 Units/ml)) 3,200 unit AFTER DIALYSIS CATHETER Last administered on 04/15/19 20:43; Admin Dose 3,200 UNIT; Start 03/30/19 at 17:00 Atorvastatin Calcium (Lipitor) 40 mg HS NGT Last administered on 04/16/19 21:14; Admin Dose 40 MG; Start 03/31/19 at 21:00 Baclofen (Lioresal) 10 mg BID GTB Last administered on 04/16/19 21:14; Admin Dose 10 MG; Start 03/31/19 at 21:00 Doxazosin Mesylate (Cardura) 2 mg DAILY NGT Last administered on 04/16/19 08:33; Admin Dose 2 MG; Start 03/31/19 at 14:30 Gabapentin (Neurontin) 100 mg QHS PO Last administered on 04/16/19 21:14; Admin Dose 100 MG; Start 03/31/19 at 21:00 Acetaminophen (Tylenol Liquid) 650 mg Q4H PRN PEG MILD PAIN(1-3)OR ELEVATED TEMP Last administered on 04/16/19 08:42; Admin Dose 650 MG; Start 03/31/19 at 16:00 Lactobacillus Acidophilus/ Rhamnosus (Culturelle) 1 cap TID GTB Last administered on 04/16/19 21:14; Admin Dose 1 CAP; Start 04/02/19 at 13:00 Epoetin [place]-epbx (Retacrit (Esrd)) 10,000 unit MoWeFr@1700 SC Last a dministered on 04/15/19 21:11; Admin Dose 10,000 UNIT; Start 04/03/19 at 19:30 Lansoprazole (Prevacid) 30 mg BID@0600,1800 GTB Last administered on 04/17/19 05:34; Admin Dose 30 MG; Start 04/04/19 at 18:00 Multivit/Ca Carb/ B Cmplx/FA/Prenat (Karena-Geovanni) 1 tab DAILY GTB Last administered on 04/16/19 08:33; Admin Dose 1 TAB; Start 04/04/19 at 11:30 Aspirin (Aspirin) 81 mg DAILY PO Last administered on 04/11/19 08:46; Admin Dose 81 MG; Start 04/05/19 at 09:00; Status Hold Propofol 100 ml @ 2.097 mls/ hr Q12H PRN IV AGITATION Last administered on 04/08/19 11:39; Admin Dose 6.291 MLS/HR; Start 04/08/19 at 00:00 Fentanyl 100 ml @ 2.5 mls/hr TITRATE IV Last administered on 04/13/19 22:09; A dmin Dose 5 MLS/HR; Start 04/08/19 at 00:00 Midazolam HCl 50 ml @ 1 mls/hr TITRATE PRN IV agitation Last administered on 04/14/19 07:12; Admin Dose 4 MLS/HR; Start 04/08/19 at 00:00 Norepinephrine 250 ml @ 1.875 mls/ hr TITRATE IV Last administered on 04/15/19 05:45; Admin Dose 1.875 MLS/HR; Start 04/08/19 at 00:00 Nicardipine HCl 50 mg/Sodium Chloride 500 ml @ 50 mls/hr TITRATE IV ; Start 04/08/19 at 09:30 Mupirocin (Bactroban) 1 applic BID TOP Last administered on 04/16/19 21:16; Admin Dose 1 APPLIC; Start 04/09/19 at 21:00 Budesonide (Pulmicort (Neb)) 0.5 mg BID RESP THERAPY HHN Last administered on 04/16/19 19:11; Admin Dose 0.5 MG; Start 04/12/19 at 09:00 Amikacin Sulfate (Amikacin Iv Per Pharmacy) AMIKACIN PER PHARMACY NOTE XX ; Start 04/12/19 at 10:30 Metronidazole 100 ml @ 100 mls/hr Q8 IVPB Last administered on 04/17/19 05:34; Admin Dose 100 MLS/HR; Start 04/12/19 at 14:00 Carvedilol (Coreg) 12.5 mg BID NGT Last administered on 04/16/19 21:14; Admin Dose 12.5 MG; Start 04/12/19 at 21:00 Amikacin Sulfate 300 mg/Sodium Chloride 101.2 ml @ 101.2 mls/ hr AFTER DIALYSIS IVPB Last administered on 04/15/19 22:09; Admin Dose 101.2 MLS/HR; Start 04/13/19 at 09:00 Albuterol (Ventolin Hfa) 2 puff Q6H RESP THERAPY INH Last administered on 04/17/19 07:43; Admin Dose 2 PUFF; Start 04/12/19 at 20:00 Ipratropium [place] (Atrovent Hfa) 4 puff Q6H RESP THERAPY INH Last administe red on 04/17/19 07:43; Admin Dose 4 PUFF; Start 04/12/19 at 20:00 Dextrose 1,000 ml @ 50 mls/hr Q20H IV Last administered on 04/13/19 09:08; Admin Dose 75 MLS/HR; Start 04/13/19 at 09:00; Status Hold Metoclopramide HCl (Reglan) 5 mg Q6 IV Last administered on 04/17/19 05:34; Admin Dose 5 MG; Start 04/13/19 at 12:00 Insulin Aspart (Novolog Insulin Pen) NOVOLOG *MILD* ALGORI... Q4 SC Last admini stered on 04/17/19 06:01; Admin Dose 2 UNIT; Start 04/13/19 at 09:00 Clopidogrel Bisulfate (plaVIX) 75 mg DAILY GTB Last administered on 04/16/19 09:39; Admin Dose 75 MG; Start 04/16/19 at 09:00 Quetiapine Fumarate (Seroquel) 50 mg QHS GTB Last administered on 04/16/19 21:14; Admin Dose 50 MG; Start 04/16/19 at 21:00 Losartan Potassium (Cozaar) 25 mg DAILY PO ; Start 04/17/19 at 09:00 ALEXANDRA JACKSON Apr 17, 2019 09:19
[2019-04-17] MEDS: BUDESONIDE (NEB) 0.5MG/2ML AMP HHN SCH ×2 (09:22→20:00)
--- NOTE | 2019-04-17 09:39 | PN ---
Date/Time of Note Date/Time of Note DATE: 04/17/19 TIME: 09:39 Assessment/Plan VTE Prophylaxis Risk score (from Nsg)>0 risk: 10 SCD applied (from Nsg): Yes Pharmacological prophylaxis: other Lines/Catheters IV Catheter Type (from Nrsg): Permacath Urinary Cath still in place: Yes Reason Cath still needed: terminal illness/intractable pain Assessment/Plan Assessment/Plan 1. Acute hypoxic respiratory failure - doing well on CPAP this am and extubated 04/17. Per family, patient will remain a full code - pulmonology consultation appreciated 2. Septic shock, intermittent- resolved - off pressor support - Most likely secondary to aspiration pneumonia - ID on board and appreciate recommendations. continue on current IV antibiotics 3. HCAP/Aspiration Pneumonia - Pulm on board and appreciate recommendations - ID on board for antibiotic management 4. Acute on chronic encephalopathy - Neurology consultation appreciated. 5. Anemia - stable - Hgb stable - GI consultation appreciated and EGD revealed moderate distal esophagitis and gastritis and duodenitis. Colonoscopy showed internal hemorrhoids. Will need repeat colonoscopy in 6 months - plavix restarted and will monitor for any reno bleeding 6. End-stage renal disease on hemodialysis - Nephrology on board and appreciate consultation. Continue HD 7. Coronary artery disease status post CABG history - continue home medications - continue Plavix and will restart aspirin if no further bleeding while on Plavix 8. Epilepsy - Continue Keppra - repeat EEG pending 9. History of CVA with residual left-sided deficit and more recent CVA - New left thalamic stroke appreciated on repeat MRI. Will check Carotids to see if any stenosis is present - Neurology consultation appreciated 10. BPH 11. Disposition - Family meeting held and updated on patient condition and discussed goals of care. patient to remain full code at this time. If stable off vent, will transfer to [facility] in the am. >60 minutes of critical care time spent with patient. Result Diagram: 04/17/19 0425 04/17/19 0425 Results 24hrs Laboratory Tests Test 04/16/19 13:28 04/16/19 18:20 04/16/19 18:45 04/16/19 21:21 Bedside Glucose 188 190 197 Urine Color PRATIK Urine Clarity SLIGHTLY CLOUDY A Urine pH 8.0 Urine Specific 1.013 [place] Urine Ketones TRACE A Urine Nitrite NEGATIVE Urine Bilirubin NEGATIVE Urine NEGATIVE Urobilinogen Urine Leukocyte TRACE A Esterase Urine Microscopic 4 RBC Urine Microscopic 12 H WBC Urine Bacteria FEW A Urine Hyaline FEW A Casts Urine Hemoglobin 1+ H Urine Glucose 2+ H Urine Total 3+ H Protein Test 04/17/19 00:43 04/17/19 04:25 04/17/19 05:54 04/17/19 09:00 Bedside Glucose 186 195 228 H White Blood Count 12.9 H Red Blood Count 3.08 L Hemoglobin 8.9 L Hematocrit 27.9 L Mean Corpuscular 90.6 Volume Mean Corpuscular 28.9 L Hemoglobin Mean Corpuscular 31.9 L Hemoglobin Concen t Red Cell 17.2 H Distribution Width Platelet Count 272 Mean Platelet 10.4 Volume Immature 1.100 H Granulocytes % Neutrophils % 84.0 H Lymphocytes % 8.1 L Monocytes % 3.6 Eosinophils % 2.7 Basophils % 0.5 Nucleated Red 0.0 Blood Cells % Immature 0.140 H Granulocytes # Neutrophils # 10.8 H Lymphocytes # 1.1 Monocytes # 0.5 Eosinophils # 0.4 Basophils # 0.1 Nucleated Red 0.0 Blood Cells # Sodium Level 143 Potassium Level 3.4 L Chloride Level 107 Carbon Dioxide 24 Level Anion Gap 12 Blood Urea 19 Nitrogen Creatinine 5.22 H Glucose Level 201 Calcium Level 9.7 Phosphorus Level 3.2 Magnesium Level 2.2 Albumin 3.2 L Subjective 24 Hr Interval Summary Free Text/Dictation Patient tolerated CPAP trial and was weaned from ventilator. Discussion was held with family and updated on patients condition. They would like to continue as full code at this time. Exam/Review of Systems Exam Vitals Vital Signs Date Temp Pulse Resp B/P (MAP) Pulse Ox O2 O2 Flow FiO2 Time Delivery Rate 04/17/19 40 09:20 04/17/19 82 24 148/65 97 Mechanical 09:00 (92) Ventilator 04/17/19 97.5 08:00 Intake and Output 04/16/19 04/16/19 04/17/19 1515:00 23:00 07:00 IntakeIntake Total 566.72 ml 382.46 ml 260.1 ml OutputOutput Total 15 ml 10 ml 10 ml BalanceBalance 551.72 ml 372.46 ml 250.1 ml Exam General: Patient is intubated. opens eyes. mildly agitated Head: Normocephalic atraumatic Eyes: EOMI, pupils reactive to light Neck: Supple, nontender, midline Respiratory: Clear to auscultation bilaterally. diminished. no wheezing appreciated Cardiovascular: regular rate and rhythm, no obvious murmurs Gastrointestinal: soft, non-tender to palpation, bowel sounds heard. Skin: No new skin lesions Results Results 24hrs Laboratory Tests Test 04/16/19 13:28 04/16/19 18:20 04/16/19 18:45 04/16/19 21:21 Bedside Glucose 188 190 197 Urine Color PRATIK Urine Clarity SLIGHTLY CLOUDY A Urine pH 8.0 Urine Specific 1.013 [place] Urine Ketones TRACE A Urine Nitrite NEGATIVE Urine Bilirubin NEGATIVE Urine NEGATIVE Urobilinogen Urine Leukocyte TRACE A Esterase Urine Microscopic 4 RBC Urine Microscopic 12 H WBC Urine Bacteria FEW A Urine Hyaline FEW A Casts Urine Hemoglobin 1+ H Urine Glucose 2+ H Urine Total 3+ H Protein Test 04/17/19 00:43 04/17/19 04:25 04/17/19 05:54 04/17/19 09:00 Bedside Glucose 186 195 228 H White Blood Count 12.9 H Red Blood Count 3.08 L Hemoglobin 8.9 L Hematocrit 27.9 L Mean Corpuscular 90.6 Volume Mean Corpuscular 28.9 L Hemoglobin Mean Corpuscular 31.9 L Hemoglobin Concen t Red Cell 17.2 H Distribution Width Platelet Count 272 Mean Platelet 10.4 Volume Immature 1.100 H Granulocytes % Neutrophils % 84.0 H Lymphocytes % 8.1 L Monocytes % 3.6 Eosinophils % 2.7 Basophils % 0.5 Nucleated Red 0.0 Blood Cells % Immature 0.140 H Granulocytes # Neutrophils # 10.8 H Lymphocytes # 1.1 Monocytes # 0.5 Eosinophils # 0.4 Basophils # 0.1 Nucleated Red 0.0 Blood Cells # Sodium Level 143 Potassium Level 3.4 L Chloride Level 107 Carbon Dioxide 24 Level Anion Gap 12 Blood Urea 19 Nitrogen Creatinine 5.22 H Glucose Level 201 Calcium Level 9.7 Phosphorus Level 3.2 Magnesium Level 2.2 Albumin 3.2 L Medications Medication Current Medications IV Flush (NS 3 ml) 3 ml PER PROTOCOL IV ; Start 03/29/19 at 13:30 Ondansetron HCl (Zofran Inj) 4 mg Q6H PRN IV NAUSEA/VOMITING Last administered on 04/07/19at 18:53; Admin Dose 4 MG; Start 03/29/19 at 13:30 Acetaminophen (Tylenol Tab) 650 mg Q6H PRN PO .PAIN 1-3 OR TEMP Last administered on 03/31/19at 05:48; Admin Dose 650 MG; Start 03/29/19 at 13:30 Hydralazine HCl (Apresoline) 10 mg Q4H PRN IV sbp >185 Last administered on 04/17/19at 05:34; Admin Dose 10 MG; Start 03/29/19 at 14:00 Miscellaneous Information 1 ea NOTE XX ; Start 03/29/19 at 14:30 Glucose (Glutose) 15 gm Q15M PRN PO DECREASED GLUCOSE; Start 03/29/19 at 14:30 Glucose (Glutose) 22.5 gm Q15M PRN PO DECREASED GLUCOSE; Start 03/29/19 at 14:30 Dextrose (D50w Syringe) 25 ml Q15M PRN IV DECREASED GLUCOSE Last administered on 04/13/19at 05:56; Admin Dose 25 ML; Start 03/29/19 at 14:30; Status Hold Dextrose (D50w Syringe) 50 ml Q15M PRN IV DECREASED GLUCOSE; Start 03/29/19 at 14:30 Glucagon (Glucagen) 1 mg Q15M PRN IM DECREASED GLUCOSE; Start 03/29/19 at 14:30 Glucose (Glutose) 15 gm Q15M PRN BUCCAL DECREASED GLUCOSE; Start 03/29/19 at 14:30 Albumin Human 100 ml @ 100 mls/hr WITH DIALYSIS PRN IV SBP <90 DURING DIALYSIS Last administered on 04/15/19at 17:39; Admin Dose 100 MLS/HR; Start 03/29/19 at 17:00 Albuterol/ Ipratropium (Duoneb) 3 ml Q2H RESP THERAPY PRN HHN WHEEZING AND RESP DISTRESS Last administered on 04/09/19at 08:52; Admin Dose 3 ML; Start 03/29/19 at 18:00 Lorazepam (Ativan) 0.5 mg Q4H PRN IV AGITATION Last administered on 04/16/19at 15:45; Admin Dose 0.5 MG; Start 03/29/19 at 18:00 IV Flush (NS 10 ml) 10 ml Q8 PRN IV IV PROTOCOL; Start 03/29/19 at 18:00 Labetalol HCl (Labetalol) 10 mg Q4H PRN IV sbp >160; Start 03/30/19 at 09:00 Haloperidol (Haldol) 5 mg Q6H PRN IM agitation Last administered on 03/31/19 00:10; Admin Dose 5 MG; Start 03/30/19 at 10:00 Heparin Sodium (Porcine) (Heparin (1000 Units/ml)) 3,200 unit AFTER DIALYSIS CATHETER Last administered on 04/15/19 20:43; Admin Dose 3,200 UNIT; Start 03/30/19 at 17:00 Atorvastatin Calcium (Lipitor) 40 mg HS NGT Last administered on 04/16/19 21:14; Admin Dose 40 MG; Start 03/31/19 at 21:00 Baclofen (Lioresal) 10 mg BID GTB Last administered on 04/17/19 08:58; Admin Dose 10 MG; Start 03/31/19 at 21:00 Doxazosin Mesylate (Cardura) 2 mg DAILY NGT Last administered on 04/17/19 09:01; Admin Dose 2 MG; Start 03/31/19 at 14:30 Gabapentin (Neurontin) 100 mg QHS PO Last administered on 04/16/19 21:14; Admin Dose 100 MG; Start 03/31/19 at 21:00 Acetaminophen (Tylenol Liquid) 650 mg Q4H PRN PEG MILD PAIN(1-3)OR ELEVATED TE MP Last administered on 04/16/19 08:42; Admin Dose 650 MG; Start 03/31/19 at 16:00 Lactobacillus Acidophilus/ Rhamnosus (Culturelle) 1 cap TID GTB Last administered on 04/17/19 08:57; Admin Dose 1 CAP; Start 04/02/19 at 13:00 Epoetin [place]-epbx (Retacrit (Esrd)) 10,000 unit MoWeFr@1700 SC Last adm inistered on 04/15/19 21:11; Admin Dose 10,000 UNIT; Start 04/03/19 at 19:30 Lansoprazole (Prevacid) 30 mg BID@0600,1800 GTB Last administered on 04/17/19 05:34; Admin Dose 30 MG; Start 04/04/19 at 18:00 Multivit/Ca Carb/ B Cmplx/FA/Prenat (Karena-Geovanni) 1 tab DAILY GTB Last administered on 04/17/19 08:57; Admin Dose 1 TAB; Start 04/04/19 at 11:30 Aspirin (Aspirin) 81 mg DAILY PO Last administered on 04/11/19 08:46; Admin Dose 81 MG; Start 04/05/19 at 09:00; Status Hold Propofol 100 ml @ 2.097 mls/ hr Q12H PRN IV AGITATION Last administered on 04/08/19 11:39; Admin Dose 6.291 MLS/HR; Start 04/08/19 at 00:00 Fentanyl 100 ml @ 2.5 mls/hr TITRATE IV Last administered on 04/13/19 22:09; Admin Dose 5 MLS/HR; Start 04/08/19 at 00:00 Midazolam HCl 50 ml @ 1 mls/hr TITRATE PRN IV agitation Last administered on 04/14/19 07:12; Admin Dose 4 MLS/HR; Start 04/08/19 at 00:00 Norepinephrine 250 ml @ 1.875 mls/ hr TITRATE IV Last administered on 04/15/19 05:45; Admin Dose 1.875 MLS/HR; Start 04/08/19 at 00:00 Nicardipine HCl 50 mg/Sodium Chloride 500 ml @ 50 mls/hr TITRATE IV ; Start 04/08/19 at 09:30 Mupirocin (Bactroban) 1 applic BID TOP Last administered on 04/17/19 09:06; Admin Dose 1 APPLIC; Start 04/09/19 at 21:00 Budesonide (Pulmicort (Neb)) 0.5 mg BID RESP THERAPY HHN Last administered on 04/17/19 09:22; Admin Dose 0.5 MG; Start 04/12/19 at 09:00 Amikacin Sulfate (Amikacin Iv Per Pharmacy) AMIKACIN PER PHARMACY NOTE XX ; Start 04/12/19 at 10:30 Metronidazole 100 ml @ 100 mls/hr Q8 IVPB Last administered on 04/17/19 05:34; Admin Dose 100 MLS/HR; Start 04/12/19 at 14:00 Carvedilol (Coreg) 12.5 mg BID NGT Last administered on 04/17/19 09:01; Admin Dose 12.5 MG; Start 04/12/19 at 21:00 Amikacin Sulfate 300 mg/Sodium Chloride 101.2 ml @ 101.2 mls/ hr AFTER DIALYSIS IVPB Last administered on 04/15/19 22:09; Admin Dose 101.2 MLS/HR; Start 04/13/19 at 09:00 Albuterol (Ventolin Hfa) 2 puff Q6H RESP THERAPY INH Last administered on 04/17/19 07:43; Admin Dose 2 PUFF; Start 04/12/19 at 20:00 Ipratropium [place] (Atrovent Hfa) 4 puff Q6H RESP THERAPY INH Last adminis tered on 04/17/19 07:43; Admin Dose 4 PUFF; Start 04/12/19 at 20:00 Dextrose 1,000 ml @ 50 mls/hr Q20H IV Last administered on 04/13/19 09:08; Admin Dose 75 MLS/HR; Start 04/13/19 at 09:00; Status Hold Metoclopramide HCl (Reglan) 5 mg Q6 IV Last administered on 04/17/19 05:34; Admin Dose 5 MG; Start 04/13/19 at 12:00 Insulin Aspart (Novolog Insulin Pen) NOVOLOG *MILD* ALGORI... Q4 SC Last admi nistered on 04/17/19 09:02; Admin Dose 3 UNIT; Start 04/13/19 at 09:00 Clopidogrel Bisulfate (plaVIX) 75 mg DAILY GTB Last administered on 04/17/19 08:57; Admin Dose 75 MG; Start 04/16/19 at 09:00 Quetiapine Fumarate (Seroquel) 50 mg QHS GTB Last administered on 04/16/19 21:14; Admin Dose 50 MG; Start 04/16/19 at 21:00 Losartan Potassium (Cozaar) 25 mg DAILY PO Last administered on 04/17/19 09: 00; Admin Dose 25 MG; Start 04/17/19 at 09:00 Alteplase, Recombinant (Cathflo (Activase)) 2 mg MAY REPEAT X1 PRN CATHETER IF CATHETER REMAINS OCCULUDED; Start 04/17/19 at 09:30 Insulin Glargine (Lantus) 10 units DAILY@0800 SC ; Start 04/17/19 at 11:00 LILLIAN ZHANG MD Apr 17, 2019 09:39
--- NOTE | 2019-04-17 09:55 | CONS ---
Assessment/Plan Assessment/Plan Assessment/Plan (Daily) 1. Acute hypoxemic respiratory failure intubated on ventilator 2. Accelerated HTN 3. ESRD on HD - MWF schedule at [facility] [place] 4. H/o CAD s/p CABG before 5. H/o CAD with previous recent stent placement in 09/2018 6. h/o HTN 7. H/o DM II 8. h/o HL 9. 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 H/o BPH Plan: s/p HD today 3 L removed, will continue pt on MWF schedule while being in hospital Ventilator management as per pulmonary - pt is on Coreg 12.5 mg pO BID, BP still high , will add losartan 25 mg po daily and HYdralazine 50mg PO TID , cardura 2 mg po daily IV abx amikacin, Flagyl renally dose all abx and monitor electrolytes Epogen 66085 units SQ MWF will follow up Consultation Date/Type/Reason Admit Date/Time Mar 29, 2019 at 13:16 Initial Consult Date 03/29/19 Type of Consult NEPHROLOGY Requesting Provider: LILLIAN ZHANG MD Date/Time of Note DATE: 04/17/19 TIME: 09:55 24 HR Interval Summary Free Text/Dictation s/p HD today 3 L removed, BP stable, remains intubated Exam/Review of Systems Exam Vitals Vital Signs Date Temp Pulse Resp B/P (MAP) Pulse Ox O2 O2 Flow FiO2 Time Delivery Rate 04/17/19 40 09:20 04/17/19 82 24 148/65 97 Mechanical 09:00 (92) Ventilator 04/17/19 97.5 08:00 Intake and Output 04/16/19 04/16/19 04/17/19 1515:00 23:00 07:00 IntakeIntake Total 566.72 ml 382.46 ml 260.1 ml OutputOutput Total 15 ml 10 ml 10 ml BalanceBalance 551.72 ml 372.46 ml 250.1 ml Exam Constitutional: intubated on ventilator , ET tube in place Respiratory: crackles/rales, diminished breath sounds Cardiovascular: regular rate and rhythm, nl pulses Gastrointestinal: soft, non-tender Musculoskeletal: swelling (1-2+pitting edema ) Extremities: normal pulses Neurological: Non focal Results Result Diagram: 04/17/1942404/17/19424 Results 24hrs Laboratory Tests Test 04/16/19 13:28 04/16/19 18:20 04/16/19 18:45 04/16/19 21:21 Bedside Glucose 188 190 197 Urine Color PRATIK Urine Clarity SLIGHTLY CLOUDY A Urine pH 8.0 Urine Specific 1.013 [place] Urine Ketones TRACE A Urine Nitrite NEGATIVE Urine Bilirubin NEGATIVE Urine NEGATIVE Urobilinogen Urine Leukocyte TRACE A Esterase Urine Microscopic 4 RBC Urine Microscopic 12 H WBC Urine Bacteria FEW A Urine Hyaline FEW A Casts Urine Hemoglobin 1+ H Urine Glucose 2+ H Urine Total 3+ H Protein Test 04/17/19 00:43 04/17/19 04:25 04/17/19 05:54 04/17/19 09:00 Bedside Glucose 186 195 228 H White Blood Count 12.9 H Red Blood Count 3.08 L Hemoglobin 8.9 L Hematocrit 27.9 L Mean Corpuscular 90.6 Volume Mean Corpuscular 28.9 L Hemoglobin Mean Corpuscular 31.9 L Hemoglobin Concen t Red Cell 17.2 H Distribution Width Platelet Count 272 Mean Platelet 10.4 Volume Immature 1.100 H Granulocytes % Neutrophils % 84.0 H Lymphocytes % 8.1 L Monocytes % 3.6 Eosinophils % 2.7 Basophils % 0.5 Nucleated Red 0.0 Blood Cells % Immature 0.140 H Granulocytes # Neutrophils # 10.8 H Lymphocytes # 1.1 Monocytes # 0.5 Eosinophils # 0.4 Basophils # 0.1 Nucleated Red 0.0 Blood Cells # Sodium Level 143 Potassium Level 3.4 L Chloride Level 107 Carbon Dioxide 24 Level Anion Gap 12 Blood Urea 19 Nitrogen Creatinine 5.22 H Glucose Level 201 Calcium Level 9.7 Phosphorus Level 3.2 Magnesium Level 2.2 Albumin 3.2 L Medications Medication Current Medications IV Flush (NS 3 ml) 3 ml PER PROTOCOL IV ; Start 03/29/19 at 13:30 Ondansetron HCl (Zofran Inj) 4 mg Q6H PRN IV NAUSEA/VOMITING Last administered on 04/07/19at 18:53; Admin Dose 4 MG; Start 03/29/19 at 13:30 Acetaminophen (Tylenol Tab) 650 mg Q6H PRN PO .PAIN 1-3 OR TEMP Last administered on 03/31/19at 05:48; Admin Dose 650 MG; Start 03/29/19 at 13:30 Hydralazine HCl (Apresoline) 10 mg Q4H PRN IV sbp >185 Last administered on 04/17/19at 05:34; Admin Dose 10 MG; Start 03/29/19 at 14:00 Miscellaneous Information 1 ea NOTE XX ; Start 03/29/19 at 14:30 Glucose (Glutose) 15 gm Q15M PRN PO DECREASED GLUCOSE; Start 03/29/19 at 14:30 Glucose (Glutose) 22.5 gm Q15M PRN PO DECREASED GLUCOSE; Start 03/29/19 at 14:30 Dextrose (D50w Syringe) 25 ml Q15M PRN IV DECREASED GLUCOSE Last administered on 04/13/19at 05:56; Admin Dose 25 ML; Start 03/29/19 at 14:30; Status Hold Dextrose (D50w Syringe) 50 ml Q15M PRN IV DECREASED GLUCOSE; Start 03/29/19 at 14:30 Glucagon (Glucagen) 1 mg Q15M PRN IM DECREASED GLUCOSE; Start 03/29/19 at 14:30 Glucose (Glutose) 15 gm Q15M PRN BUCCAL DECREASED GLUCOSE; Start 03/29/19 at 14:30 Albumin Human 100 ml @ 100 mls/hr WITH DIALYSIS PRN IV SBP <90 DURING DIALYSIS Last administered on 04/15/19at 17:39; Admin Dose 100 MLS/HR; Start 03/29/19 at 17:00 Albuterol/ Ipratropium (Duoneb) 3 ml Q2H RESP THERAPY PRN HHN WHEEZING AND RESP DISTRESS Last administered on 04/09/19at 08:52; Admin Dose 3 ML; Start 03/29/19 at 18:00 Lorazepam (Ativan) 0.5 mg Q4H PRN IV AGITATION Last administered on 04/16/19at 15:45; Admin Dose 0.5 MG; Start 03/29/19 at 18:00 IV Flush (NS 10 ml) 10 ml Q8 PRN IV IV PROTOCOL; Start 03/29/19 at 18:00 Labetalol HCl (Labetalol) 10 mg Q4H PRN IV sbp >160; Start 03/30/19 at 09:00 Haloperidol (Haldol) 5 mg Q6H PRN IM agitation Last administered on 03/31/19at 00:10; Admin Dose 5 MG; Start 03/30/19 at 10:00 Heparin Sodium (Porcine) (Heparin (1000 Units/ml)) 3,200 unit AFTER DIALYSIS CATHETER Last administered on 04/15/19 20:43; Admin Dose 3,200 UNIT; Start 03/30/19 at 17:00 Atorvastatin Calcium (Lipitor) 40 mg HS NGT Last administered on 04/16/19 21:14; Admin Dose 40 MG; Start 03/31/19 at 21:00 Baclofen (Lioresal) 10 mg BID GTB Last administered on 04/17/19 08:58; Admin D ose 10 MG; Start 03/31/19 at 21:00 Doxazosin Mesylate (Cardura) 2 mg DAILY NGT Last administered on 04/17/19 09:01; Admin Dose 2 MG; Start 03/31/19 at 14:30 Gabapentin (Neurontin) 100 mg QHS PO Last administered on 04/16/19 21:14; Admin Dose 100 MG; Start 03/31/19 at 21:00 Acetaminophen (Tylenol Liquid) 650 mg Q4H PRN PEG MILD PAIN(1-3)OR ELEVATED TEMP Last administered on 04/16/19 08:42; Admin Dose 650 MG; Start 03/31/19 at 16:00 Lactobacillus Acidophilus/ Rhamnosus (Culturelle) 1 cap TID GTB Last administered on 04/17/19 08:57; Admin Dose 1 CAP; Start 04/02/19 at 13:00 Epoetin [place]-epbx (Retacrit (Esrd)) 10,000 unit MoWeFr@1700 SC Last administered on 04/15/19 21:11; Admin Dose 10,000 UNIT; Start 04/03/19 at 19:30 Lansoprazole (Prevacid) 30 mg BID@0600,1800 GTB Last administered on 04/17/19 05:34; Admin Dose 30 MG; Start 04/04/19 at 18:00 Multivit/Ca Carb/ B Cmplx/FA/Prenat (Karena-Geovanni) 1 tab DAILY GTB Last administered on 04/17/19 08:57; Admin Dose 1 TAB; Start 04/04/19 at 11:30 Aspirin (Aspirin) 81 mg DAILY PO Last administered on 04/11/19 08:46; Admin Dose 81 MG; Start 04/05/19 at 09:00; Status Hold Propofol 100 ml @ 2.097 mls/ hr Q12H PRN IV AGITATION Last administered on 04/08/19 11:39; Admin Dose 6.291 MLS/HR; Start 04/08/19 at 00:00 Fentanyl 100 ml @ 2.5 mls/hr TITRATE IV Last administered on 04/13/19 22:09; Admin Dose 5 MLS/HR; Start 04/08/19 at 00:00 Midazolam HCl 50 ml @ 1 mls/hr TITRATE PRN IV agitation Last administered on 04/14/19 07:12; Admin Dose 4 MLS/HR; Start 04/08/19 at 00:00 Norepinephrine 250 ml @ 1.875 mls/ hr TITRATE IV Last administered on 04/15/19 05:45; Admin Dose 1.875 MLS/HR; Start 04/08/19 at 00:00 Nicardipine HCl 50 mg/Sodium Chloride 500 ml @ 50 mls/hr TITRATE IV ; Start 04/08/19 at 09:30 Mupirocin (Bactroban) 1 applic BID TOP Last administered on 04/17/19 09:06; Admin Dose 1 APPLIC; Start 04/09/19 at 21:00 Budesonide (Pulmicort (Neb)) 0.5 mg BID RESP THERAPY HHN Last administered on 04/17/19 09:22; Admin Dose 0.5 MG; Start 04/12/19 at 09:00 Amikacin Sulfate (Amikacin Iv Per Pharmacy) AMIKACIN PER PHARMACY NOTE XX ; Start 04/12/19 at 10:30 Metronidazole 100 ml @ 100 mls/hr Q8 IVPB Last administered on 04/17/19 05:34; Admin Dose 100 MLS/HR; Start 04/12/19 at 14:00 Carvedilol (Coreg) 12.5 mg BID NGT Last administered on 04/17/19 09:01; Admin Dose 12.5 MG; Start 04/12/19 at 21:00 Amikacin Sulfate 300 mg/Sodium Chloride 101.2 ml @ 101.2 mls/ hr AFTER DIALYSIS IVPB Last administered on 04/15/19 22:09; Admin Dose 101.2 MLS/HR; Start 04/13/19 at 09:00 Albuterol (Ventolin Hfa) 2 puff Q6H RESP THERAPY INH Last administered on 04/17/19 07:43; Admin Dose 2 PUFF; Start 04/12/19 at 20:00 Ipratropium [place] (Atrovent Hfa) 4 puff Q6H RESP THERAPY INH Last administered on 04/17/19 07:43; Admin Dose 4 PUFF; Start 04/12/19 at 20:00 Dextrose 1,000 ml @ 50 mls/hr Q20H IV Last administered on 04/13/19 09:08; Admin Dose 75 MLS/HR; Start 04/13/19 at 09:00; Status Hold Metoclopramide HCl (Reglan) 5 mg Q6 IV Last administered on 04/17/19 05:34; Admin Dose 5 MG; Start 04/13/19 at 12:00 Insulin Aspart (Novolog Insulin Pen) NOVOLOG *MILD* ALGORI... Q4 SC Last administered on 04/17/19 09:02; Admin Dose 3 UNIT; Start 04/13/19 at 09:00 Clopidogrel Bisulfate (plaVIX) 75 mg DAILY GTB Last administered on 04/17/19 08:57; Admin Dose 75 MG; Start 04/16/19 at 09:00 Quetiapine Fumarate (Seroquel) 50 mg QHS GTB Last administered on 04/16/19 21:14; Admin Dose 50 MG; Start 04/16/19 at 21:00 Losartan Potassium (Cozaar) 25 mg DAILY PO Last administered on 04/17/19 09:00; Admin Dose 25 MG; Start 04/17/19 at 09:00 Alteplase, Recombinant (Cathflo (Activase)) 2 mg MAY REPEAT X1 PRN CATHETER IF CATHETER REMAINS OCCULUDED; Start 04/17/19 at 09:30 Insulin Glargine (Lantus) 10 units DAILY@0800 SC ; Start 04/17/19 at 11:00 BETZAIDA YAÑEZ MD Apr 17, 2019 09:55
[2019-04-17] MEDS: ALTEPLASE (CATHFLO) 2 MG INJ CATHETER PRN (11:21)
[2019-04-17] MEDS: INSULIN GLARGINE [LANTus] (100 UNITS/ML) SYG SC SCH (11:29)
--- NOTE | 2019-04-17 12:13 | CONS ---
Assessment/Plan Assessment/Plan Hospital Course (Demo Recall) No acute changes overnight patient is seen hemodialysis looks comfortable no fevers overnight T-max 99.7 yesterday WBC 12.9 platelets 272 neutrophils 84 MRI of the brain yesterday revealed acute ischemic small vessel left thalamic infarct. 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 Head atraumatic normocephalic neck is supple chest rise symmetrical breath sounds diminished bases. Heart: S1-S2. Abdomen soft bowel sounds present. Extremities without cyanosis Assessment: 1. S/p sepsis 2. Acute respiratory failure possibly aspirated 3. MRSA nares colonization 4. Encephalopathy, acute on chronic CVA 5. End-stage renal disease, hemodialysis dependent 6. Dysphagia 7. Chronic sinusitis and bilateral mastoiditis Plan: Remains hemodynamically stable, completing antibiotics possible extubation today Consultation Date/Type/Reason Admit Date/Time Mar 29, 2019 at 13:16 Initial Consult Date 04/07/19 Type of Consult id Requesting Provider: LILLIAN ZHANG MD Date/Time of Note DATE: 04/17/19 TIME: 12:12 Exam/Review of Systems Exam Vitals Vital Signs Date Temp Pulse Resp B/P (MAP) Pulse Ox O2 O2 Flow FiO2 Time Delivery Rate 04/17/19 83 11:50 04/17/19 20 173/81 98 Mechanical 11:49 (111) Ventilator T Tube 04/17/19 40 09:21 04/17/19 97.5 08:00 Intake and Output 04/16/19 04/16/19 04/17/19 1515:00 23:00 07:00 IntakeIntake Total 566.72 ml 382.46 ml 260.1 ml OutputOutput Total 15 ml 10 ml 10 ml BalanceBalance 551.72 ml 372.46 ml 250.1 ml Results Result Diagram: 04/17/19 0425 04/17/19 0425 Results 24hrs Laboratory Tests Test 04/16/19 13:28 04/16/19 18:20 04/16/19 18:45 04/16/19 21:21 Bedside Glucose 188 190 197 Urine Color PRATIK Urine Clarity SLIGHTLY CLOUDY A Urine pH 8.0 Urine Specific 1.013 [place] Urine Ketones TRACE A Urine Nitrite NEGATIVE Urine Bilirubin NEGATIVE Urine NEGATIVE Urobilinogen Urine Leukocyte TRACE A Esterase Urine 4 Microscopic RBC Urine 12 H Microscopic WBC Urine Bacteria FEW A Urine Hyaline FEW A Casts Urine Hemoglobin 1+ H Urine Glucose 2+ H Urine Total 3+ H Protein Test 04/17/19 00:43 04/17/19 04:25 04/17/19 05:54 04/17/19 09:00 Bedside Glucose 186 195 228 H White Blood 12.9 H Count Red Blood Count 3.08 L Hemoglobin 8.9 L Hematocrit 27.9 L Mean Corpuscular 90.6 Volume Mean Corpuscular 28.9 L Hemoglobin Mean Corpuscular 31.9 L Hemoglobin Dimple nt Red Cell 17.2 H Distribution Width Platelet Count 272 Mean Platelet 10.4 Volume Immature 1.100 H Granulocytes % Neutrophils % 84.0 H Lymphocytes % 8.1 L Monocytes % 3.6 Eosinophils % 2.7 Basophils % 0.5 Nucleated Red 0.0 Blood Cells % Immature 0.140 H Granulocytes # Neutrophils # 10.8 H Lymphocytes # 1.1 Monocytes # 0.5 Eosinophils # 0.4 Basophils # 0.1 Nucleated Red 0.0 Blood Cells # Sodium Level 143 Potassium Level 3.4 L Chloride Level 107 Carbon Dioxide 24 Level Anion Gap 12 Blood Urea 19 Nitrogen Creatinine 5.22 H Glucose Level 201 Calcium Level 9.7 Phosphorus Level 3.2 Magnesium Level 2.2 Albumin 3.2 L Test 04/17/19 10:15 04/17/19 11:19 Blood Gas Blood arterial Specimen Source Arterial Blood 04/17/2019 10:15 Date Drawn :56 AM Arterial Blood 7.421 pH (Temp corrected) Arterial Blood 41.2 pCO2 (Temp correct) Arterial Blood 76.3 L pO2 (Temp corrected) Arterial Blood 26.2 H HCO3 Arterial Blood 1.6 Base Excess Arterial Blood 94.4 L Oxygen Saturatio n Santino Test N/A Arterial Blood Right Brachial Gas Puncture Site Arterial 0.4 Blood Carboxyhem oglobin Arterial Blood 0.3 Methemoglobin Blood Gas A-a O2 161.5 H Differential Oxyhemoglobin 93.7 Percent Blood Gas 37.0 Temperature Blood Gas Actual 17 Respiration Rate Blood Gas VENT - CPAP Modality FiO2 40.0 Blood Gas Low 5.0 PEEP Setting Blood Gas 10 Pressure Support Blood Gas Notified Whom Blood Gas 04/17/2019 10:32 Notified Time :02 AM Bedside Glucose 187 Medications Medication Current Medications IV Flush (NS 3 ml) 3 ml PER PROTOCOL IV ; Start 03/29/19 at 13:30 Ondansetron HCl (Zofran Inj) 4 mg Q6H PRN IV NAUSEA/VOMITING Last administered on 04/07/19 18:53; Admin Dose 4 MG; Start 03/29/19 at 13:30 Acetaminophen (Tylenol Tab) 650 mg Q6H PRN PO .PAIN 1-3 OR TEMP Last administered on 03/31/19 05:48; Admin Dose 650 MG; Start 03/29/19 at 13:30 Hydralazine HCl (Apresoline) 10 mg Q4H PRN IV sbp >185 Last administered on 04/17/19 05:34; Admin Dose 10 MG; Start 03/29/19 at 14:00 Miscellaneous Information 1 ea NOTE XX ; Start 03/29/19 at 14:30 Glucose (Glutose) 15 gm Q15M PRN PO DECREASED GLUCOSE; Start 03/29/19 at 14:30 Glucose (Glutose) 22.5 gm Q15M PRN PO DECREASED GLUCOSE; Start 03/29/19 at 14:30 Dextrose (D50w Syringe) 25 ml Q15M PRN IV DECREASED GLUCOSE Last administered on 04/13/19 05:56; Admin Dose 25 ML; Start 03/29/19 at 14:30; Status Hold Dextrose (D50w Syringe) 50 ml Q15M PRN IV DECREASED GLUCOSE; Start 03/29/19 at 14:30 Glucagon (Glucagen) 1 mg Q15M PRN IM DECREASED GLUCOSE; Start 03/29/19 at 14:30 Glucose (Glutose) 15 gm Q15M PRN BUCCAL DECREASED GLUCOSE; Start 03/29/19 at 14:30 Albumin Human 100 ml @ 100 mls/hr WITH DIALYSIS PRN IV SBP <90 DURING DIALYSIS Last administered on 04/15/19 17:39; Admin Dose 100 MLS/HR; Start 03/29/19 at 17:00 Albuterol/ Ipratropium (Duoneb) 3 ml Q2H RESP THERAPY PRN HHN WHEEZING AND RESP DISTRESS Last administered on 04/09/19 08:52; Admin Dose 3 ML; Start 03/29/19 at 18:00 Lorazepam (Ativan) 0.5 mg Q4H PRN IV AGITATION Last administered on 04/16/19 15:45; Admin Dose 0.5 MG; Start 03/29/19 at 18:00 IV Flush (NS 10 ml) 10 ml Q8 PRN IV IV PROTOCOL; Start 03/29/19 at 18:00 Labetalol HCl (Labetalol) 10 mg Q4H PRN IV sbp >160; Start 03/30/19 at 09:00 Haloperidol (Haldol) 5 mg Q6H PRN IM agitation Last administered on 03/31/19 00:10; Admin Dose 5 MG; Start 03/30/19 at 10:00 Heparin Sodium (Porcine) (Heparin (1000 Units/ml)) 3,200 unit AFTER DIALYSIS CATHETER Last administered on 04/15/19 20:43; Admin Dose 3,200 UNIT; Start 03/30/19 at 17:00 Atorvastatin Calcium (Lipitor) 40 mg HS NGT Last administered on 04/16/19 21:14; Admin Dose 40 MG; Start 03/31/19 at 21:00 Baclofen (Lioresal) 10 mg BID GTB Last administered on 04/17/19 08:58; Admin Dose 10 MG; Start 03/31/19 at 21:00 Doxazosin Mesylate (Cardura) 2 mg DAILY NGT Last administered on 04/17/19 09:01; Admin Dose 2 MG; Start 03/31/19 at 14:30 Gabapentin (Neurontin) 100 mg QHS PO Last administered on 04/16/19 21:14; Admin Dose 100 MG; Start 03/31/19 at 21:00 Acetaminophen (Tylenol Liquid) 650 mg Q4H PRN PEG MILD PAIN(1-3)OR ELEVATED TEMP Last administered on 04/16/19 08:42; Admin Dose 650 MG; Start 03/31/19 at 16:00 Lactobacillus Acidophilus/ Rhamnosus (Culturelle) 1 cap TID GTB Last administered on 04/17/19 08:57; Admin Dose 1 CAP; Start 04/02/19 at 13:00 Epoetin [place]-epbx (Retacrit (Esrd)) 10,000 unit MoWeFr@1700 SC Last administered on 04/15/19 21:11; Admin Dose 10,000 UNIT; Start 04/03/19 at 19:30 Lansoprazole (Prevacid) 30 mg BID@0600,1800 GTB Last administered on 04/17/19 05:34; Admin Dose 30 MG; Start 04/04/19 at 18:00 Multivit/Ca Carb/ B Cmplx/FA/Prenat (Karena-Geovanni) 1 tab DAILY GTB Last administered on 04/17/19 08:57; Admin Dose 1 TAB; Start 04/04/19 at 11:30 Aspirin (Aspirin) 81 mg DAILY PO Last administered on 04/11/19 08:46; Admin Dose 81 MG; Start 04/05/19 at 09:00; Status Hold Propofol 100 ml @ 2.097 mls/ hr Q12H PRN IV AGITATION Last administered on 04/08/19 11:39; Admin Dose 6.291 MLS/HR; Start 04/08/19 at 00:00 Fentanyl 100 ml @ 2.5 mls/hr TITRATE IV Last administered on 04/13/19 22:09; Admin Dose 5 MLS/HR; Start 04/08/19 at 00:00 Midazolam HCl 50 ml @ 1 mls/hr TITRATE PRN IV agitation Last administered on 04/14/19 07:12; Admin Dose 4 MLS/HR; Start 04/08/19 at 00:00 Norepinephrine 250 ml @ 1.875 mls/ hr TITRATE IV Last administered on 04/15/19 05:45; Admin Dose 1.875 MLS/HR; Start 04/08/19 at 00:00 Nicardipine HCl 50 mg/Sodium Chloride 500 ml @ 50 mls/hr TITRATE IV ; Start 04/08/19 at 09:30 Mupirocin (Bactroban) 1 applic BID TOP Last administered on 04/17/19 09:06; Admin Dose 1 APPLIC; Start 04/09/19 at 21:00 Budesonide (Pulmicort (Neb)) 0.5 mg BID RESP THERAPY HHN Last administered on 04/17/19 09:22; Admin Dose 0.5 MG; Start 04/12/19 at 09:00 Amikacin Sulfate (Amikacin Iv Per Pharmacy) AMIKACIN PER PHARMACY NOTE XX ; Start 04/12/19 at 10:30 Metronidazole 100 ml @ 100 mls/hr Q8 IVPB Last administered on 04/17/19 05:34; Admin Dose 100 MLS/HR; Start 04/12/19 at 14:00 Carvedilol (Coreg) 12.5 mg BID NGT Last administered on 04/17/19 09:01; Admin Dose 12.5 MG; Start 04/12/19 at 21:00 Amikacin Sulfate 300 mg/Sodium Chloride 101.2 ml @ 101.2 mls/ hr AFTER DIALYSIS IVPB Last administered on 04/15/19 22:09; Admin Dose 101.2 MLS/HR; Start 04/13/19 at 09:00 Albuterol (Ventolin Hfa) 2 puff Q6H RESP THERAPY INH Last administered on 04/17/19 07:43; Admin Dose 2 PUFF; Start 04/12/19 at 20:00 Ipratropium [place] (Atrovent Hfa) 4 puff Q6H RESP THERAPY INH Last administered on 04/17/19 07:43; Admin Dose 4 PUFF; Start 04/12/19 at 20:00 Dextrose 1,000 ml @ 50 mls/hr Q20H IV Last administered on 04/13/19 09:08; Admin Dose 75 MLS/HR; Start 04/13/19 at 09:00; Status Hold Metoclopramide HCl (Reglan) 5 mg Q6 IV Last administered on 04/17/19 05:34; Admin Dose 5 MG; Start 04/13/19 at 12:00 Insulin Aspart (Novolog Insulin Pen) NOVOLOG *MILD* ALGORI... Q4 SC Last administered on 04/17/19 09:02; Admin Dose 3 UNIT; Start 04/13/19 at 09:00 Clopidogrel Bisulfate (plaVIX) 75 mg DAILY GTB Last administered on 04/17/19 08:57; Admin Dose 75 MG; Start 04/16/19 at 09:00 Quetiapine Fumarate (Seroquel) 50 mg QHS GTB Last administered on 04/16/19 21:14; Admin Dose 50 MG; Start 04/16/19 at 21:00 Losartan Potassium (Cozaar) 25 mg DAILY PO Last administered on 7/10/19at 09:00; Admin Dose 25 MG; Start 04/17/19 at 09:00 Alteplase, Recombinant (Cathflo (Activase)) 2 mg MAY REPEAT X1 PRN CATHETER IF CATHETER REMAINS OCCULUDED Last administered on 04/17/19 11:21; Admin Dose 2 MG; Start 04/17/19 at 09:30 Insulin Glargine (Lantus) 10 units DAILY@0800 SC Last administered on 04/17/19 11:29; Admin Dose 10 UNITS; Start 04/17/19 at 11:00 MUA COLINDRES NP Apr 17, 2019 12:13
--- NOTE | 2019-04-17 14:13 | EEG ---
EEG NOTE Report Details DATE OF TEST: 04/16/19 HISTORY: The patient is a 58-year-old M who presents with altered mental status. This EEG is requested to rule out nonconvulsive status epilepticus. SEDATION: ? CONDITIONS OF RECORDING: This EEG was recorded digitally on the [employer] machine, using the International 10-20 System of electrodes plus anterior temporals and [place]. STATES SAMPLED: Lethargic. FINDINGS: The background is continuous and grossly symmetric. The background is obscured by high frequency artifact throughout...and is otherwise notable for polymorphic theta and delta activity. The normal [id number] frequency-amplitude gradient was absent. Photic stimulation does not elicit any definite driving responses or epileptiform discharges. Hyperventilation was not performed. No asymmetries or epileptiform discharges were seen. IMPRESSION: Abnormal electroencephalogram due to: diffuse slowing. COMMENT: The slowing of the background indicates diffuse cortical dysfunction of nonspecific etiology. GEOVANNI BLANCHARD Apr 17, 2019 14:13
[2019-04-17] MEDS: HEPARIN 1000 UNITS/ML 10 ML INJ CATHETER SCH (14:31)
[2019-04-17] MEDS: AMIKACIN 300 MG in SOD CHLORIDE 0.9% 100 ML IVPB SCH (14:43)
--- NOTE | 2019-04-17 16:31 | PN ---
Date/Time of Note Date/Time of Note DATE: 04/17/19 TIME: 16:28 Assessment/Plan VTE Prophylaxis Risk score (from Ns)>0 risk: 10 SCD applied (from Ns): Yes Pharmacological prophylaxis: other (scds) Lines/Catheters IV Catheter Type (from [facility]): Permacath Urinary Cath still in place: Yes Reason Cath still needed: other (indicate) (monitor output) Assessment/Plan Hospital Course Assessment/Plan Assessment: Severe anemia -EGD 04/03/2019 Moderate distal esophagitis. Gastrostomy tube in place. Gastritis -biopsies are negative for H. pylori. Duodenitis. Colonoscopy 04/03/2019 8 sessile polyp in the cecum. Snared and retrieved. -Tubular adenoma 6 mm sessile polyp ascending colon. Snared and retrieved. -Tubular adenoma 6 mm sessile polyp sigmoid. Snared and retrieved. -Tubular adenoma 20 mm sessile polyp sigmoid. Saline assisted lipectomy plus localization tattoo. Moderate-sized internal hemorrhoids. 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 -Replaced with 18 [place] gastrostomy tube Coronary artery disease status post CABG history Epilepsy BPH Query aspiration PNA Plan: Restart G-tube feeding when able to do so, hold for residuals greater than 150 cc. Increase Reglan 10mg IV q6hr- large residuals over night and this am- NPO most of day- s/p extubation today Patient seen in collaboration with Dr. Sanders Subjective: Course reviewed with nursing staff Patient interviewed and examined All labs, imaging and other results reviewed Family meeting,notes reviewed Pt ede full code, s/p extubation No overt signs of GI bleed PHYSICAL EXAMINATION: GENERAL: Well developed, well nourished, intubated and sedated SKIN: No lesions, g-tube in place NECK: Supple, no masses, thyroid normal CHEST: Inspection within normal limits. CARDIOVASCULAR: Heart: Regular rate and rhythm RESPIRATORY: Lungs clear to auscultation. GASTROINTESTINAL AND LIVER: Abdomen: Soft, G-tube in place, non-distended, no organomegaly, no ascites, no guarding, no rebound tenderness, normoactive bowel sounds. Rectal: Rectal tube in place GENITOURINARY: Male genitalia within normal limits. EXTREMITIES: No cyanosis, clubbing or edema. Result Diagram: 04/17/19 0425 04/17/19 0425 Results 24hrs Laboratory Tests Test 04/16/19 18:20 04/16/19 18:45 04/16/19 21:21 04/17/19 00:43 Bedside Glucose 190 197 186 Urine Color PRATIK Urine Clarity SLIGHTLY CLOUDY A Urine pH 8.0 Urine Specific 1.013 [place] Urine Ketones TRACE A Urine Nitrite NEGATIVE Urine Bilirubin NEGATIVE Urine NEGATIVE Urobilinogen Urine Leukocyte TRACE A Esterase Urine 4 Microscopic RBC Urine 12 H Microscopic WBC Urine Bacteria FEW A Urine Hyaline FEW A Casts Urine 1+ H Hemoglobin Urine Glucose 2+ H Urine Total 3+ H Protein Test 04/17/19 04:25 04/17/19 05:54 04/17/19 09:00 04/17/19 10:15 White Blood 12.9 H Count Red Blood Count 3.08 L Hemoglobin 8.9 L Hematocrit 27.9 L Mean 90.6 Corpuscular Volume Mean 28.9 L Corpuscular Hemoglobin Mean 31.9 L Corpuscular Hemoglobin Conc ent Red Cell 17.2 H Distribution Width Platelet Count 272 Mean Platelet 10.4 Volume Immature 1.100 H Granulocytes % Neutrophils % 84.0 H Lymphocytes % 8.1 L Monocytes % 3.6 Eosinophils % 2.7 Basophils % 0.5 Nucleated Red 0.0 Blood Cells % Immature 0.140 H Granulocytes # Neutrophils # 10.8 H Lymphocytes # 1.1 Monocytes # 0.5 Eosinophils # 0.4 Basophils # 0.1 Nucleated Red 0.0 Blood Cells # Sodium Level 143 Potassium Level 3.4 L Chloride Level 107 Carbon Dioxide 24 Level Anion Gap 12 Blood Urea 19 Nitrogen Creatinine 5.22 H Glucose Level 201 Calcium Level 9.7 Phosphorus 3.2 Level Magnesium Level 2.2 Albumin 3.2 L Bedside Glucose 195 228 H Blood Gas Blood Specimen arterial Source Arterial Blood 04/17/2019 10:1 Date Drawn 5:56 AM Arterial Blood 7.421 pH (Temp corrected ) Arterial Blood 41.2 pCO2 (Temp correct) Arterial Blood 76.3 L pO2 (Temp corrected ) Arterial Blood 26.2 H HCO3 Arterial Blood 1.6 Base Excess Arterial Blood 94.4 L Oxygen Saturati on Santino Test N/A Arterial Blood Right Gas Brachial Puncture Site Arterial 0.4 Blood Carboxyhe moglobin Arterial Blood 0.3 Methemoglobin Blood Gas A-a 161.5 H O2 Differential Oxyhemoglobin 93.7 Percent Blood Gas 37.0 Temperature Blood Gas 17 Actual Respiration Rat e Blood Gas VENT - CPAP Modality FiO2 40.0 Blood Gas Low 5.0 PEEP Setting Blood Gas 10 Pressure Support Blood Gas Notified Whom Blood Gas 04/17/2019 10:3 Notified Time 2:02 AM Test 04/17/19 11:19 04/17/19 12:40 04/17/19 12:48 Bedside Glucose 187 134 Lab Scanned REFERENCE LAB Report Exam/Review of Systems Exam Vitals Vital Signs Date Temp Pulse Resp B/P (MAP) Pulse Ox O2 O2 Flow FiO2 Time Delivery Rate 04/17/19 100 Nasal 6.0 15:10 Cannula 04/17/19 87 23 161/77 15:00 (105) 04/17/19 40 13:00 04/17/19 98.6 12:00 Intake and Output 04/16/19 04/16/19 04/17/19 1515:00 23:00 07:00 IntakeIntake Total 566.72 ml 382.46 ml 260.1 ml OutputOutput Total 15 ml 10 ml 10 ml BalanceBalance 551.72 ml 372.46 ml 250.1 ml Results Results 24hrs Laboratory Tests Test 04/16/19 18:20 04/16/19 18:45 04/16/19 21:21 04/17/19 00:43 Bedside Glucose 190 197 186 Urine Color PRATIK Urine Clarity SLIGHTLY CLOUDY A Urine pH 8.0 Urine Specific 1.013 [place] Urine Ketones TRACE A Urine Nitrite NEGATIVE Urine Bilirubin NEGATIVE Urine NEGATIVE Urobilinogen Urine Leukocyte TRACE A Esterase Urine 4 Microscopic RBC Urine 12 H Microscopic WBC Urine Bacteria FEW A Urine Hyaline FEW A Casts Urine 1+ H Hemoglobin Urine Glucose 2+ H Urine Total 3+ H Protein Test 04/17/19 04:25 04/17/19 05:54 04/17/19 09:00 04/17/19 10:15 White Blood 12.9 H Count Red Blood Count 3.08 L Hemoglobin 8.9 L Hematocrit 27.9 L Mean 90.6 Corpuscular Volume Mean 28.9 L Corpuscular Hemoglobin Mean 31.9 L Corpuscular Hemoglobin Conc ent Red Cell 17.2 H Distribution Width Platelet Count 272 Mean Platelet 10.4 Volume Immature 1.100 H Granulocytes % Neutrophils % 84.0 H Lymphocytes % 8.1 L Monocytes % 3.6 Eosinophils % 2.7 Basophils % 0.5 Nucleated Red 0.0 Blood Cells % Immature 0.140 H Granulocytes # Neutrophils # 10.8 H Lymphocytes # 1.1 Monocytes # 0.5 Eosinophils # 0.4 Basophils # 0.1 Nucleated Red 0.0 Blood Cells # Sodium Level 143 Potassium Level 3.4 L Chloride Level 107 Carbon Dioxide 24 Level Anion Gap 12 Blood Urea 19 Nitrogen Creatinine 5.22 H Glucose Level 201 Calcium Level 9.7 Phosphorus 3.2 Level Magnesium Level 2.2 Albumin 3.2 L Bedside Glucose 195 228 H Blood Gas Blood Specimen arterial Source Arterial Blood 04/17/2019 10:1 Date Drawn 5:56 AM Arterial Blood 7.421 pH (Temp corrected ) Arterial Blood 41.2 pCO2 (Temp correct) Arterial Blood 76.3 L pO2 (Temp corrected ) Arterial Blood 26.2 H HCO3 Arterial Blood 1.6 Base Excess Arterial Blood 94.4 L Oxygen Saturati on Santino Test N/A Arterial Blood Right Gas Brachial Puncture Site Arterial 0.4 Blood Carboxyhe moglobin Arterial Blood 0.3 Methemoglobin Blood Gas A-a 161.5 H O2 Differential Oxyhemoglobin 93.7 Percent Blood Gas 37.0 Temperature Blood Gas 17 Actual Respiration Rat e Blood Gas VENT - CPAP Modality FiO2 40.0 Blood Gas Low 5.0 PEEP Setting Blood Gas 10 Pressure Support Blood Gas Notified Whom Blood Gas 04/17/2019 10:3 Notified Time 2:02 AM Test 04/17/19 11:19 04/17/19 12:40 04/17/19 12:48 Bedside Glucose 187 134 Lab Scanned REFERENCE LAB Report Medications Medication Current Medications IV Flush (NS 3 ml) 3 ml PER PROTOCOL IV ; Start 03/29/19 at 13:30 Ondansetron HCl (Zofran Inj) 4 mg Q6H PRN IV NAUSEA/VOMITING Last administered on 04/07/19at 18:53; Admin Dose 4 MG; Start 03/29/19 at 13:30 Acetaminophen (Tylenol Tab) 650 mg Q6H PRN PO .PAIN 1-3 OR TEMP Last administered on 03/31/19at 05:48; Admin Dose 650 MG; Start 03/29/19 at 13:30 Hydralazine HCl (Apresoline) 10 mg Q4H PRN IV sbp >185 Last administered on 04/17/19at 05:34; Admin Dose 10 MG; Start 03/29/19 at 14:00 Miscellaneous Information 1 ea NOTE XX ; Start 03/29/19 at 14:30 Glucose (Glutose) 15 gm Q15M PRN PO DECREASED GLUCOSE; Start 03/29/19 at 14:30 Glucose (Glutose) 22.5 gm Q15M PRN PO DECREASED GLUCOSE; Start 03/29/19 at 14:30 Dextrose (D50w Syringe) 25 ml Q15M PRN IV DECREASED GLUCOSE Last administered on 04/13/19at 05:56; Admin Dose 25 ML; Start 03/29/19 at 14:30; Status Hold Dextrose (D50w Syringe) 50 ml Q15M PRN IV DECREASED GLUCOSE; Start 03/29/19 at 14:30 Glucagon (Glucagen) 1 mg Q15M PRN IM DECREASED GLUCOSE; Start 03/29/19 at 14:30 Glucose (Glutose) 15 gm Q15M PRN BUCCAL DECREASED GLUCOSE; Start 03/29/19 at 14:30 Albumin Human 100 ml @ 100 mls/hr WITH DIALYSIS PRN IV SBP <90 DURING DIALYSIS Last administered on 04/15/19at 17:39; Admin Dose 100 MLS/HR; Start 03/29/19 at 17:00 Albuterol/ Ipratropium (Duoneb) 3 ml Q2H RESP THERAPY PRN HHN WHEEZING AND RESP DISTRESS Last administered on 04/09/19at 08:52; Admin Dose 3 ML; Start 03/29/19 at 18:00 Lorazepam (Ativan) 0.5 mg Q4H PRN IV AGITATION Last administered on 04/16/19at 15:45; Admin Dose 0.5 MG; Start 03/29/19 at 18:00 IV Flush (NS 10 ml) 10 ml Q8 PRN IV IV PROTOCOL; Start 03/29/19 at 18:00 Labetalol HCl (Labetalol) 10 mg Q4H PRN IV sbp >160; Start 03/30/19 at 09:00 Haloperidol (Haldol) 5 mg Q6H PRN IM agitation Last administered on 03/31/19at 00:10; Admin Dose 5 MG; Start 03/30/19 at 10:00 Heparin Sodium (Porcine) (Heparin (1000 Units/ml)) 3,200 unit AFTER DIALYSIS CATHETER Last administered on 04/17/19 14:31; Admin Dose 3,200 UNIT; Start 03/30/19 at 17:00 Atorvastatin Calcium (Lipitor) 40 mg HS NGT Last administered on 04/16/19 21:14; Admin Dose 40 MG; Start 03/31/19 at 21:00 Baclofen (Lioresal) 10 mg BID GTB Last administered on 04/17/19 08:58; Admin Dose 10 MG; Start 03/31/19 at 21:00 Doxazosin Mesylate (Cardura) 2 mg DAILY NGT Last administered on 04/17/19 09:01; Admin Dose 2 MG; Start 03/31/19 at 14:30 Gabapentin (Neurontin) 100 mg QHS PO Last administered on 04/16/19 21:14; Admin Dose 100 MG; Start 03/31/19 at 21:00 Acetaminophen (Tylenol Liquid) 650 mg Q4H PRN PEG MILD PAIN(1-3)OR ELEVATED TEMP Last administered on 04/16/19 08:42; Admin Dose 650 MG; Start 03/31/19 at 16:00 Lactobacillus Acidophilus/ Rhamnosus (Culturelle) 1 cap TID GTB Last administered on 04/17/19 14:42; Admin Dose 1 CAP; Start 04/02/19 at 13:00 Epoetin [place]-epbx (Retacrit (Esrd)) 10,000 unit MoWeFr@1700 SC Last administered on 04/15/19 21:11; Admin Dose 10,000 UNIT; Start 04/03/19 at 19:30 Lansoprazole (Prevacid) 30 mg BID@0600,1800 GTB Last administered on 04/17/19 05:34; Admin Dose 30 MG; Start 04/04/19 at 18:00 Multivit/Ca Carb/ B Cmplx/FA/Prenat (Karena-Geovanni) 1 tab DAILY GTB Last a dministered on 04/17/19 08:57; Admin Dose 1 TAB; Start 04/04/19 at 11:30 Aspirin (Aspirin) 81 mg DAILY PO Last administered on 04/11/19 08:46; Admin Dose 81 MG; Start 04/05/19 at 09:00; Status Hold Propofol 100 ml @ 2.097 mls/ hr Q12H PRN IV AGITATION Last administered on 04/08/19 11:39; Admin Dose 6.291 MLS/HR; Start 04/08/19 at 00:00 Fentanyl 100 ml @ 2.5 mls/hr TITRATE IV Last administered on 04/13/19 22:09; Admin Dose 5 MLS/HR; Start 04/08/19 at 00:00 Midazolam HCl 50 ml @ 1 mls/hr TITRATE PRN IV agitation Last administered on 04/14/19 07:12; Admin Dose 4 MLS/HR; Start 04/08/19 at 00:00 Norepinephrine 250 ml @ 1.875 mls/ hr TITRATE IV Last administered on 04/15/19 05:45; Admin Dose 1.875 MLS/HR; Start 04/08/19 at 00:00 Nicardipine HCl 50 mg/Sodium Chloride 500 ml @ 50 mls/hr TITRATE IV ; Start 04/08/19 at 09:30 Mupirocin (Bactroban) 1 applic BID TOP Last administered on 04/17/19 09:06; Admin Dose 1 APPLIC; Start 04/09/19 at 21:00 Budesonide (Pulmicort (Neb)) 0.5 mg BID RESP THERAPY HHN Last administered on 04/17/19 09:22; Admin Dose 0.5 MG; Start 04/12/19 at 09:00 Amikacin Sulfate (Amikacin Iv Per Pharmacy) AMIKACIN PER PHARMACY NOTE XX ; Start 04/12/19 at 10:30 Metronidazole 100 ml @ 100 mls/hr Q8 IVPB Last administered on 04/17/19 14:43; Admin Dose 100 MLS/HR; Start 04/12/19 at 14:00 Carvedilol (Coreg) 12.5 mg BID NGT Last administered on 04/17/19 09:01; Admin Dose 12.5 MG; Start 04/12/19 at 21:00 Amikacin Sulfate 300 mg/Sodium Chloride 101.2 ml @ 101.2 mls/ hr AFTER DIALYSIS IVPB Last administered on 04/17/19 14:43; Admin Dose 101.2 MLS/HR; Start 04/13/19 at 09:00 Albuterol (Ventolin Hfa) 2 puff Q6H RESP THERAPY INH Last administered on 04/17/19 13:06; Admin Dose 2 PUFF; Start 04/12/19 at 20:00 Ipratropium [place] (Atrovent Hfa) 4 puff Q6H RESP THERAPY INH Last administered on 04/17/19 13:06; Admin Dose 4 PUFF; Start 04/12/19 at 20:00 Dextrose 1,000 ml @ 50 mls/hr Q20H IV Last administered on 04/13/19 09:08; Admin Dose 75 MLS/HR; Start 04/13/19 at 09:00; Status Hold Metoclopramide HCl (Reglan) 5 mg Q6 IV Last administered on 04/17/19 14:41; Admin Dose 5 MG; Start 04/13/19 at 12:00 Insulin Aspart (Novolog Insulin Pen) NOVOLOG *MILD* ALGORI... Q4 SC Last administered on 04/17/19 09:02; Admin Dose 3 UNIT; Start 04/13/19 at 09:00 Clopidogrel Bisulfate (plaVIX) 75 mg DAILY GTB Last administered on 04/17/19 08:57; Admin Dose 75 MG; Start 04/16/19 at 09:00 Quetiapine Fumarate (Seroquel) 50 mg QHS GTB Last administered on 04/16/19 21 :14; Admin Dose 50 MG; Start 04/16/19 at 21:00 Losartan Potassium (Cozaar) 25 mg DAILY PO Last administered on 04/17/19 09:00; Admin Dose 25 MG; Start 04/17/19 at 09:00 Alteplase, Recombinant (Cathflo (Activase)) 2 mg MAY REPEAT X1 PRN CATHETER IF CATHETER REMAINS OCCULUDED Last administered on 04/17/19 11:21; Admin Dose 2 MG; Start 04/17/19 at 09:30 Insulin Glargine (Lantus) 10 units DAILY@0800 SC Last administered on 04/17/19 11:29; Admin Dose 10 UNITS; Start 04/17/19 at 11:00 JUNE LEE Apr 17, 2019 16:31
[2019-04-17] MEDS: EPOETIN ALFA-EPBX (ESRD) 10,000 UNIT/ML VIAL SC SCH (18:12)
[2019-04-17] MEDS ORDERED: ALBUTEROL/IPRATROPIUM (NEB) 3 ML AMP HHN SCH (20:00)
[2019-04-17] MEDS: FENTAnyl (DRIP) 1000 mcg/100mL 100 ML IV SCH (20:44)
[2019-04-17] MEDS ORDERED: MIDAZOLAM (DRIP) 50 mg/50 mL 50 ML IV SCH (21:30)
[2019-04-17] MEDS: QUETIAPINE 25 MG TAB GTB SCH (21:43)
[2019-04-17] MEDS: GABAPENTIN 100 MG CAP PO SCH (21:44)
[2019-04-17] MEDS: ATORVASTATIN 40 MG TAB NGT SCH (21:44)
[2019-04-17] MEDS: MIDAZOLAM (DRIP) 50 mg/50 mL 50 ML IV PRN (22:04)
--- NOTE | 2019-04-17 23:34 | EN ---
Date/Time of Note Date/Time of Note DATE: 04/17/19 TIME: 20:30 ER Progress Note Consultation note Subjective: I was called to the bedside of this patient in the ICU for consideration for intubation. Briefly, this is a 58-year-old male with a past medical history of renal failure with volume overload. The patient had been intubated due to respiratory failure, but his symptoms seemed to improve and he was extubated this morning. Unfortunately, throughout the day, the patient's respiratory status devolved significantly. At time of my evaluation, the patient was essentially unresponsive in severe respiratory distress and hypoxic with an oxygen saturation in the low 80s. Family history: As indicated on the initial history and physical of this ER visit Objective: Vital signs reviewed Const: In distress, well-developed, well-nourished Head: Normocephalic, Atraumatic Eyes: Normal Conjunctiva. ENT: Normal External Ears, Nose. Dry mucous membranes. Neck: No meningismus. Resp: Coarse breath sounds bilaterally. Significant respiratory distress. Hypoxia. Cardio: Tachycardia Abd: Non distended Skin: No petechiae or rashes Ext: No cyanosis, or edema Neur: Somnolent. Nonverbal. Moving all extremities spontaneously. Eyes do not open. Assessment: Respiratory failure Plan: I do feel that the patient requires emergent intubation at this time. The patient is in respiratory failure, and I do not believe that he is able to protect his own airway at this time. The patient's had considered DNR/DNI status for the patient, but after discussion with the patient's son, the family ultimately decided to reintubate the patient. I was at bedside when this discussion was occurring. The risks and benefits of intubation were understood by the family, and they verbally consented to this emergent procedure. We proceeded with intubation without complication. Please see procedure note below. The primary admitting team will reassume care at this time. ENDOTRACHEAL INTUBATION: Performed by me. Pre-assessment performed. Pre-oxygenation performed with 100% oxygen. RSI: Performed w/o complication or hypoxic events. Medications as ordered. Blade: MAC 3 via Video Larygnoscope ET Tube: 7.5 mm Depth: 24 cm at the lip Intubation confirmed by colorimetric CO2, equal breath sounds, quiet over the stomach. Chest X-ray 1V Interpreted by me: ETT above the steven. Normal soft tissue, No pneumothorax. ELTON BURGOS MD Apr 17, 2019 23:33
[2019-04-18] VITALS (81 sets, daily range): BP systolic 85–221; BP diastolic 43–101; PULSE 63–102; RESP 0–22
[2019-04-18] MEDS: INSULIN ASPART [NOVOLOG] 3 ML PEN SC SCH ×6 (00:44→21:00)
[2019-04-18] MEDS: METOCLOPRAMIDE 10 MG INJ IV SCH ×4 (00:45→17:14)
[2019-04-18] MEDS: ALBUTEROL HFA 8 GM INHALER INH SCH ×4 (01:22→20:37)
[2019-04-18] MEDS: IPRATROPIUM (HFA) 12.9 GM INHALER INH SCH ×4 (01:22→20:36)
[2019-04-18] MEDS: LANSOPRAZOLE 30 MG CAP GTB SCH ×2 (05:06→17:08)
[2019-04-18] MEDS: metroNIDAZOLE 500 MG/NS (PMX) 100 ML IVPB SCH ×3 (05:06→21:32)
--- NOTE | 2019-04-18 08:10 | CONS ---
Consult Date/Type/Reason Admit Date/Time Mar 29, 2019 at 13:16 Initial Consult Date 04/07/19 Type of Consultation: cv Requesting Provider: LILLIAN ZHANG MD Date/Time of Note DATE: 04/18/19 TIME: 08:09 Subjective Interventional cardiology follow-up progress note Subjective: Discussed with the staff and Telemetry was reviewed. pt remains intubated on vent pt is no longer hypotensive and has been hypertensive now Patient nonverbal. + thick sputum per RN report events noted: extubated and had to be re-intubated on 04/17/19 objective: General: s/p intubation on the ventilator HEENT: NC/AT. pupils are equal. round. NECK:. no stridor. CV: RRR. systolic murmur; no gallop or rubs. PULM: + rhonchi. GI: SOFT, NT, ND, no rebound or guarding s/pPEG Extremity: trace B/L LE edema. no clubbing. neuro: opens his eyes Psych: calm the moment rectal: deferred : normal ECHO 04/09/19 REVIEWED Normal left ventricular systolic function. Normal left ventricular cavity size. Mild concentric left ventricular hypertrophy. Ejection fraction is visually estimated at 55 %. Tissue Doppler/Mitral Doppler indices are consistent with impaired relaxation (Stage I diastolic dysfunction). Mild mitral leaflet calcification. Mild mitral annular calcification. Mild mitral valve regurgitation. No significant aortic stenosis or insufficiency. Aortic cusps appear mildly calcified. Normal appearance of the tricuspid valve. The estimated Peak RVSP is 25 mmHg. There is trace tricuspid regurgitation. cxr 04/09/19 Persistent small left greater than right pleural effusions with associated atelectasis/infiltrate. CXR . Appropriate position of central lines and endotracheal tube. 2. Bilateral perihilar and basilar airspace opacities representing pulmonary edema or infection. 3. Small left pleural effusion. MRI Brain 04/16 1. Acute, ischemic, small vessel left thalamic infarct. 2. Chronic right greater than left bilateral basal ganglia and bilateral thalamic lacunar infarcts 3. Moderate chronic microvascular ischemic disease and diffuse volume loss 4. Chronic right frontal murguia radiata small vessel infarct 5. 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 Objective Vitals Vital Signs Date Temp Pulse Resp B/P (MAP) Pulse Ox O2 O2 Flow FiO2 Time Delivery Rate 04/18/19 81 8 124/63 98 Nasal 06:00 (83) Cannula 04/18/19 50 05:20 04/18/19 99.1 04:00 04/17/19 6.0 18:00 Intake and Output 04/17/19 04/17/19 04/18/19 1515:00 23:00 07:00 IntakeIntake Total 158.5 ml 497.66 ml 268.5 ml OutputOutput Total 3600 ml 35 ml 10 ml BalanceBalance -3441.5 ml 462.66 ml 258.5 ml Results/Medications Result Diagram: 04/18/19 0430 04/18/19 0430 Results 24 hrs Laboratory Tests Test 04/17/19 09:00 04/17/19 10:15 04/17/19 11:19 04/17/19 12:40 Bedside Glucose 228 H 187 134 Blood Gas Blood Specimen arterial Source Arterial Blood 04/17/2019 10:1 Date Drawn 5:56 AM Arterial Blood 7.421 pH (Temp corrected ) Arterial Blood 41.2 pCO2 (Temp correct) Arterial Blood 76.3 L pO2 (Temp corrected ) Arterial Blood 26.2 H HCO3 Arterial Blood 1.6 Base Excess Arterial Blood 94.4 L Oxygen Saturati on Santino Test N/A Arterial Blood Right Gas Brachial Puncture Site Arterial 0.4 Blood Carboxyhe moglobin Arterial Blood 0.3 Methemoglobin Blood Gas A-a 161.5 H O2 Differential Oxyhemoglobin 93.7 Percent Blood Gas 37.0 Temperature Blood Gas 17 Actual Respiration Rat e Blood Gas VENT - CPAP Modality FiO2 40.0 Blood Gas Low 5.0 PEEP Setting Blood Gas 10 Pressure Support Blood Gas Notified Whom Blood Gas 04/17/2019 10:3 Notified Time 2:02 AM Test 04/17/19 12:48 04/17/19 16:59 04/17/19 20:10 04/17/19 21:46 Lab Scanned REFERENCE LAB Report Bedside Glucose 113 118 Blood Gas Blood Specimen arterial Source Arterial Blood 04/17/2019 8:00 Date Drawn :24 PM Arterial Blood 7.498 H pH (Temp corrected ) Arterial Blood 34.5 L pCO2 (Temp correct) Arterial Blood 111.6 H pO2 (Temp corrected ) Arterial Blood 26.2 H HCO3 Arterial Blood 3.1 H Base Excess Arterial Blood 98.3 H Oxygen Saturati on Santino Test N/A Arterial Blood LB Gas Puncture Site Arterial 0.1 Blood Carboxyhe moglobin Arterial Blood 0.4 Methemoglobin Blood Gas A-a 566.9 H O2 Differential Oxyhemoglobin 97.8 Percent Blood Gas 37.0 Temperature Blood Gas 16.0 Respiration Rate Blood Gas 29 Actual Respiration Rat e Blood Gas VENT - AC Modality FiO2 100.0 Blood Gas Tidal 500.0 Volume Blood Gas Low 5.0 PEEP Setting Blood Gas MA Notified Whom Blood Gas 04/17/2019 8:23 Notified Time :16 PM Test 04/18/19 00:44 04/18/19 04:30 04/18/19 05:08 04/18/19 05:32 Bedside Glucose 116 97 White Blood 10.3 # Count Red Blood Count 3.16 L Hemoglobin 9.0 L Hematocrit 28.6 L Mean 90.5 Corpuscular Volume Mean 28.5 L Corpuscular Hemoglobin Mean 31.5 L Corpuscular Hemoglobin Conc ent Red Cell 17.0 H Distribution Width Platelet Count 285 Mean Platelet 10.3 Volume Immature 1.300 H Granulocytes % Neutrophils % 75.0 Lymphocytes % 14.1 L Monocytes % 5.9 Eosinophils % 3.0 Basophils % 0.7 Nucleated Red 0.0 Blood Cells % Immature 0.130 H Granulocytes # Neutrophils # 7.8 H Lymphocytes # 1.5 Monocytes # 0.6 Eosinophils # 0.3 Basophils # 0.1 Nucleated Red 0.0 Blood Cells # Sodium Level 141 Potassium Level 3.4 L Chloride Level 106 Carbon Dioxide 26 Level Anion Gap 9 Blood Urea 12 Nitrogen Creatinine 3.53 #H Glucose Level 101 # Calcium Level 9.1 Phosphorus 2.6 Level Magnesium Level 2.0 Albumin 3.1 L Lab Scanned BLOOD TRANSFUS Report ION Test 04/18/19 07:00 Blood Gas Blood arterial Specimen Source Arterial Blood 04/18/2019 7:05: Date Drawn 57 AM Arterial Blood 7.432 pH (Temp corrected ) Arterial Blood 41.0 pCO2 (Temp correct) Arterial Blood 88.0 pO2 (Temp corrected ) Arterial Blood 26.7 H HCO3 Arterial Blood 2.3 Base Excess Arterial Blood 96.4 Oxygen Saturati on Santino Test N/A Arterial Blood Right Brachial Gas Puncture Site Arterial 0.3 Blood Carboxyhe moglobin Arterial Blood 0.4 Methemoglobin Blood Gas A-a 222.4 H O2 Differential Oxyhemoglobin 95.7 Percent Blood Gas 37.0 Temperature Blood Gas 16.0 Respiration Rate Blood Gas 18 Actual Respiration Rat e Blood Gas VENT - AC Modality FiO2 50.0 Blood Gas Tidal 500.0 Volume Blood Gas Low 5.0 PEEP Setting Blood Gas TM Notified Whom Blood Gas 04/18/2019 7:16: Notified Time 31 AM Home Meds Reported Medications Bisacodyl (Dulcolax) 10 Mg Supp.rect, 10 MG RC DAILY PRN for CONSTIPATION, SUPP.RECT 03/29/19 Sodium Phosphate,[place]-Dibasic (Enema Ready To Use) 133 Ml Enema, 133 ML RC EVERY 2 DAYS PRN for CONSTIPATION, ENEMA 03/29/19 Acetaminophen* (Acetaminophen*) 650 Mg Tablet, 650 MG GTB Q4 PRN for MILD PAIN LEVEL 1-3, #30 TAB AND FEVER 03/29/19 Acetaminophen* (Acetaminophen*) 500 MG Extra Strength Tablet, 1000 MG GTB Q4H PRN for MODERATE PAIN LEVEL 4-6, TAB 03/29/19 Acetaminophen* (Acetaminophen*) 500 MG Extra Strength Tablet, 1000 MG GTB BID PRN for GENERAL BODY PAIN, TAB 03/29/19 Amino Acids/Protein Hydrolys (Pro-Stat Awc Liquid) 30 Ml Liquid, 30 ML GTB DAILY SUGAR FREE 03/29/19 Multivitamin* (Daily Value*) 1 Each Tablet, 1 TAB GTB DAILY, TAB 03/29/19 Ascorbic Acid* (Vitamin C*) 500 Mg Capsule.sa, 500 MG GTB DAILY, CAP 03/29/19 Ferrous Sulfate (Ferrous Sulfate) 300 Mg/5 Ml Liquid, 325 MG GTB DAILY 03/29/19 Cran/Vitc/Mannose/Inulin/Brom (Uti-Stat Liquid) 3,875 Mg/30 Ml Liquid, 3875 MG GTB DAILY 03/29/19 Cranberry Extract (Cranberry) 425 Mg Capsule, 425 MG GTB DAILY, CAP 03/29/19 Insulin Glulisine (Apidra Solostar) 100 Unit/1 Ml Insuln.pen, 4 UNIT SQ TIDM A, #1 TUB 03/29/19 Insulin Glargine,Hum.rec.anlog (Basaglar Kwikpen U-100) 100 Unit/1 Ml Insuln.pen, 25 UNIT SC QHS, EA 03/29/19 Insulin Regular, Human (Humulin R) 100 Unit/1 Ml Vial, 0 IJ AC MEALS AND BEDTIME, VIAL 0-150 = 0 UNIT 151-200 = 1 UNIT 201-250 = 2 UNITS 251-300 = 3 UNITS 301-350 = 4 UNITS 351-400 = 5 UNITS OVER 400 GIVE 6 UNITS UNDER 70 OR OVER 400 NOTIFY 03/29/19 Sertraline Hcl* (Sertraline Hcl*) 25 Mg Tablet, 25 MG GTB DAILY, #30 TAB 03/29/19 Lorazepam* (Ativan*) 0.5 Mg Tablet, 0.5 MG GTB DAILY PRN for ANXIETY, #30 TAB 03/29/19 Quetiapine Fumarate* (Seroquel*) 25 Mg Tablet, 25 MG GTB HS, #30 TAB 03/29/19 Lorazepam* (Lorazepam*) 0.5 Mg Tablet, 0.5 MG GTB DAILY PRN for ANXIETY, TAB 03/29/19 Clonidine Hcl* (Clonidine Hcl*) 0.1 Mg Tab, 0.1 MG GTB DAILY PRN for ELEVATED BLOOD PRESSURE, TAB SBP >160 03/29/19 Azelastine Hcl* (Azelastine Hcl*) 137 Mcg/0.137 Ml [place].pump, 2 SPRAYS NASAL BID, #1 EA TO EACH NOSTRIL 03/29/19 Carvedilol* (Carvedilol*) 12.5 Mg Tablet, 12.5 MG GTB BID, #60 TAB 03/29/19 Diltiazem Hcl* (Cardizem CD*) 240 Mg Cap.sr.24h, 240 MG GTB DAILY, #30 CAP 03/29/19 Ergocalciferol (Vitamin D2) (VITAMIN D2) 50,000 Unit Capsule, 30226 UNIT GTB EVERY MONDAY, CAP 03/29/19 Hydralazine Hcl* (Hydralazine Hcl*) 50 Mg Tab, 50 MG GTB TID PRN for ELEVATED BLOOD PRESSURE, #60 TAB 03/29/19 Losartan Potassium* (Losartan Potassium*) 100 Mg Tablet, 100 MG GTB DAILY, TAB 03/29/19 Metoprolol Succinate* (Toprol XL*) 25 Mg Tab.sr.24h, 25 MG GTB DAILY, #30 TAB 03/29/19 Linagliptin (TRADJENTA) 5 Mg Tablet, 5 MG GTB DAILY, TAB 03/29/19 Albuterol Sulfate* (Proair HFA*) 8.5 Gm Hfa.aer.ad, 2 PUFF INH Q4H PRN for WHEEZING AND SOB, #1 INHALER 03/29/19 Ranitidine Hcl* (Ranitidine Hcl*) 300 Mg Tablet, 300 MG GTB HS, #30 TAB 03/29/19 Levetiracetam* (Keppra*) 500 Mg Tablet, 500 MG GTB BID, TAB 03/29/19 Gabapentin* (Gabapentin*) 100 Mg Capsule, 100 MG GTB QHS, #90 CAP 03/29/19 Doxazosin Mesylate* (Doxazosin Mesylate*) 2 Mg Tablet, 2 MG GTB HS, TAB 03/29/19 Docusate Sodium* (Dok*) 100 Mg Tablet, 100 MG GTB BID, #60 CAP 03/29/19 Cyanocobalamin (Vitamin B-12) (Cyanocobalamin Injection) 1,000 Mcg/1 Ml Vial, 1000 MCG IJ EVERY MONDAY, VIAL 03/29/19 Clopidogrel Bisulfate (Clopidogrel) 75 Mg Tablet, 75 MG GTB DAILY, #30 TAB 03/29/19 Calcium Carbonate ([place]-500) 500 Mg Tablet, 500 MG GTB DAILY, TAB 03/29/19 Baclofen* (Baclofen*) 10 Mg Tablet, 10 MG GTB BID, TAB 03/29/19 Atorvastatin* (Atorvastatin*) 40 Mg Tablet, 40 MG GTB QHS, #30 TAB 03/29/19 Aspirin (Low Dose Aspirin) 81 Mg Tablet.dr, 81 MG GTB DAILY, #30 TAB 03/29/19 Medications Current Medications IV Flush (NS 3 ml) 3 ml PER PROTOCOL IV ; Start 03/29/19 at 13:30 Ondansetron HCl (Zofran Inj) 4 mg Q6H PRN IV NAUSEA/VOMITING Last administered on 04/07/19at 18:53; Admin Dose 4 MG; Start 03/29/19 at 13:30 Acetaminophen (Tylenol Tab) 650 mg Q6H PRN PO .PAIN 1-3 OR TEMP Last administered on 03/31/19at 05:48; Admin Dose 650 MG; Start 03/29/19 at 13:30 Hydralazine HCl (Apresoline) 10 mg Q4H PRN IV sbp >185 Last administered on 04/17/19at 05:34; Admin Dose 10 MG; Start 03/29/19 at 14:00 Miscellaneous Information 1 ea NOTE XX ; Start 03/29/19 at 14:30 Glucose (Glutose) 15 gm Q15M PRN PO DECREASED GLUCOSE; Start 03/29/19 at 14:30 Glucose (Glutose) 22.5 gm Q15M PRN PO DECREASED GLUCOSE; Start 03/29/19 at 14: 30 Dextrose (D50w Syringe) 25 ml Q15M PRN IV DECREASED GLUCOSE Last administered on 04/13/19at 05:56; Admin Dose 25 ML; Start 03/29/19 at 14:30; Status Hold Dextrose (D50w Syringe) 50 ml Q15M PRN IV DECREASED GLUCOSE; Start 03/29/19 at 14:30 Glucagon (Glucagen) 1 mg Q15M PRN IM DECREASED GLUCOSE; Start 03/29/19 at 14:30 Glucose (Glutose) 15 gm Q15M PRN BUCCAL DECREASED GLUCOSE; Start 03/29/19 at 14:30 Albumin Human 100 ml @ 100 mls/hr WITH DIALYSIS PRN IV SBP <90 DURING DIALYSIS Last administered on 04/15/19at 17:39; Admin Dose 100 MLS/HR; Start 03/29/19 at 17:00 Albuterol/ Ipratropium (Duoneb) 3 ml Q2H RESP THERAPY PRN HHN WHEEZING AND RESP DISTRESS Last administered on 04/09/19at 08:52; Admin Dose 3 ML; Start 03/29/19 at 18:00 Lorazepam (Ativan) 0.5 mg Q4H PRN IV AGITATION Last administered on 04/16/19at 15:45; Admin Dose 0.5 MG; Start 03/29/19 at 18:00 IV Flush (NS 10 ml) 10 ml Q8 PRN IV IV PROTOCOL; Start 03/29/19 at 18:00 Labetalol HCl (Labetalol) 10 mg Q4H PRN IV sbp >160; Start 03/30/19 at 09:00 Haloperidol (Haldol) 5 mg Q6H PRN IM agitation Last administered on 03/31/19at 00:10; Admin Dose 5 MG; Start 03/30/19 at 10:00 Heparin Sodium (Porcine) (Heparin (1000 Units/ml)) 3,200 unit AFTER DIALYSIS CATHETER Last administered on 7/10/19at 14:31; Admin Dose 3,200 UNIT; Start 03/30/19 at 17:00 Atorvastatin Calcium (Lipitor) 40 mg HS NGT Last administered on 04/17/19 21: 44; Admin Dose 40 MG; Start 03/31/19 at 21:00 Baclofen (Lioresal) 10 mg BID GTB Last administered on 04/17/19 21:44; Admin Dose 10 MG; Start 03/31/19 at 21:00 Doxazosin Mesylate (Cardura) 2 mg DAILY NGT Last administered on 04/17/19 09:01; Admin Dose 2 MG; Start 03/31/19 at 14:30 Gabapentin (Neurontin) 100 mg QHS PO Last administered on 04/17/19 21:44; Admin Dose 100 MG; Start 03/31/19 at 21:00 Acetaminophen (Tylenol Liquid) 650 mg Q4H PRN PEG MILD PAIN(1-3)OR ELEVATED TEMP Last administered on 04/16/19 08:42; Admin Dose 650 MG; Start 03/31/19 at 16:00 Lactobacillus Acidophilus/ Rhamnosus (Culturelle) 1 cap TID GTB Last administered on 04/17/19 21:44; Admin Dose 1 CAP; Start 04/02/19 at 13:00 Epoetin [place]-epbx (Retacrit (Esrd)) 10,000 unit MoWeFr@1700 SC Last administered on 04/17/19 18:12; Admin Dose 10,000 UNIT; Start 04/03/19 at 19:30 Lansoprazole (Prevacid) 30 mg BID@0600,1800 GTB Last administered on 04/18/19 05:06; Admin Dose 30 MG; Start 04/04/19 at 18:00 Multivit/Ca Carb/ B Cmplx/FA/Prenat ([place]-Geovanni) 1 tab DAILY GTB Last administered on 04/17/19 08:57; Admin Dose 1 TAB; Start 04/04/19 at 11:30 Aspirin (Aspirin) 81 mg DAILY PO Last administered on 04/11/19 08:46; Admin Dose 81 MG; Start 04/05/19 at 09:00; Status Hold Propofol 100 ml @ 2.097 mls/ hr Q12H PRN IV AGITATION Last administered on 04/08/19 11:39; Admin Dose 6.291 MLS/HR; Start 04/08/19 at 00:00 Fentanyl 100 ml @ 2.5 mls/hr TITRATE IV Last administered on 04/17/19 20:44; Admin Dose 5 MLS/HR; Start 04/08/19 at 00:00 Midazolam HCl 50 ml @ 1 mls/hr TITRATE PRN IV agitation Last administered on 04/17/19 22:04; Admin Dose 1 MLS/HR; Start 04/08/19 at 00:00 Norepinephrine 250 ml @ 1.875 mls/ hr TITRATE IV Last administered on 04/15/19 05:45; Admin Dose 1.875 MLS/HR; Start 04/08/19 at 00:00 Nicardipine HCl 50 mg/Sodium Chloride 500 ml @ 50 mls/hr TITRATE IV ; Start 04/08/19 at 09:30 Mupirocin (Bactroban) 1 applic BID TOP Last administered on 04/17/19 21:45; Admin Dose 1 APPLIC; Start 04/09/19 at 21:00 Budesonide (Pulmicort (Neb)) 0.5 mg BID RESP THERAPY HHN Last administered on 04/17/19 09:22; Admin Dose 0.5 MG; Start 04/12/19 at 09:00 Amikacin Sulfate (Amikacin Iv Per Pharmacy) AMIKACIN PER PHARMACY NOTE XX ; Start 04/12/19 at 10:30 Metronidazole 100 ml @ 100 mls/hr Q8 IVPB Last administered on 04/18/19 05:06; Admin Dose 100 MLS/HR; Start 04/12/19 at 14:00 Carvedilol (Coreg) 12.5 mg BID NGT Last administered on 04/17/19 21:44; Admin Dose 12.5 MG; Start 04/12/19 at 21:00 Amikacin Sulfate 300 mg/Sodium Chloride 101.2 ml @ 101.2 mls/ hr AFTER DIALYSIS IVPB Last administered on 04/17/19 14:43; Admin Dose 101.2 MLS/HR; Start 04/13/19 at 09:00 Dextrose 1,000 ml @ 50 mls/hr Q20H IV Last administered on 04/13/19 09:08; Admin Dose 75 MLS/HR; Start 04/13/19 at 09:00; Status Hold Insulin Aspart (Novolog Insulin Pen) NOVOLOG *MILD* ALGORI... Q4 SC Last administered on 04/17/19 09:02; Admin Dose 3 UNIT; Start 04/13/19 at 09:00 Clopidogrel Bisulfate (plaVIX) 75 mg DAILY GTB Last administered on 04/17/19 08:57; Admin Dose 75 MG; Start 04/16/19 at 09:00 Quetiapine Fumarate (Seroquel) 50 mg QHS GTB Last administered on 04/17/19 21:43; Admin Dose 50 MG; Start 04/16/19 at 21:00 Losartan Potassium (Cozaar) 25 mg DAILY PO Last administered on 04/17/19 09:00; Admin Dose 25 MG; Start 04/17/19 at 09:00 Alteplase, Recombinant (Cathflo (Activase)) 2 mg MAY REPEAT X1 PRN CATHETER IF CATHETER REMAINS OCCULUDED Last administered on 04/17/19 11:21; Admin Dose 2 MG; Start 04/17/19 at 09:30 Insulin Glargine (Lantus) 10 units DAILY@0800 SC Last administered on 04/17/19 11:29; Admin Dose 10 UNITS; Start 04/17/19 at 11:00 Metoclopramide HCl (Reglan) 10 mg Q6 IV Last administered on 04/18/19 05:06; Admin Dose 10 MG; Start 04/17/19 at 18:00 Albuterol (Ventolin Hfa) 4 puff Q6H RESP THERAPY INH Last administered on 04/18/19 01:22; Admin Dose 4 PUFF; Start 04/18/19 at 02:00 Ipratropium [place] (Atrovent Hfa) 4 puff Q6H RESP THERAPY INH Last administered on 04/18/19 01:22; Admin Dose 4 PUFF; Start 04/18/19 at 02:00 Assessment/Plan Hospital Course (Demo Recall) 1. History of extensive coronary artery disease status post AK status post coronary bypass graft status post PCI 2. Status post recent CVA with now acute CVA based on MRI 3. End-stage renal disease on hemodialysis 4. Hypertension: labile . hypotensive now 5. Dyslipidemia 6. Severe encephalopathy 7. Dysphagia status post PEG placement 8. Severe anemia and history of GI bleed 9. Respiratory failure status post intubation on the vent now Recommendations: Cont with aspirin Plavix Respiratory care and ventilatory support will be continued. Hemodialysis as per renal. transfuse prn vent support for now Allow for permissive HTN for today and slowly lower BP tomorrow ? need for trach if family wishes to be full code Thank you for this referral. We will continue to follow along with you SEAN CROUCH MD [facility] SEAN CROUCH MD Apr 18, 2019 08:10
[2019-04-18] MEDS: LACTOBACILLUS RHAMNOSUS CAP GTB SCH ×3 (08:37→20:56)
[2019-04-18] MEDS: CLOPIDOGREL 75 MG TAB GTB SCH (08:38)
[2019-04-18] MEDS: LOSARTAN 25 MG TAB PO SCH (08:38)
[2019-04-18] MEDS: DOXAZOSIN 2 MG TAB NGT SCH (08:38)
[2019-04-18] MEDS: BACLOFEN 10 MG TAB GTB SCH ×2 (08:38→20:56)
[2019-04-18] MEDS: MULTIVIT/CA CARB/B CMPLX/FA TAB GTB SCH (08:38)
[2019-04-18] MEDS: MUPIROCIN 2% 22 GM OINT TOP SCH ×2 (08:50→20:57)
[2019-04-18] MEDS: INSULIN GLARGINE [LANTus] (100 UNITS/ML) SYG SC SCH (08:50)
--- NOTE | 2019-04-18 09:08 | PN ---
Date/Time of Note Date/Time of Note DATE: 04/18/19 TIME: 09:00 Assessment/Plan VTE Prophylaxis Risk score (from Nsg)>0 risk: 9 SCD applied (from Nsg): Yes Pharmacological prophylaxis: other Lines/Catheters IV Catheter Type (from Nrsg): Permacath Urinary Cath still in place: Yes Reason Cath still needed: terminal illness/intractable pain Assessment/Plan Assessment/Plan 1. Acute hypoxic respiratory failure - patient was extubated and needed to be reintubated due to desaturation. Will most likely need trach placement in the near future if family still agreeable - pulmonology consultation appreciated 2. Acute left thalamic stroke - Neuro on board and appreciate consultation - Carotid US noted with stenosis <70%. Will continue plavix at this time given patient not stable for any type of intervention but will need to be assessed for CEA in the future - permissive HTN for the next 24 hours 3. HCAP/Aspiration Pneumonia- resolving - CXR with no signs of PNA - Pulm on board and appreciate recommendations - ID on board for antibiotic management 4. Acute on chronic encephalopathy - Neurology consultation appreciated. 5. Anemia - stable - Hgb stable - GI consultation appreciated and EGD revealed moderate distal esophagitis and gastritis and duodenitis. Colonoscopy showed internal hemorrhoids. Will need repeat colonoscopy 6. End-stage renal disease on hemodialysis - Nephrology on board and appreciate consultation. Continue HD 7. Coronary artery disease status post CABG history - continue home medications - continue on Plavix and will restart aspirin 8. Epilepsy - Continue Keppra - repeat EEG pending 9. History of CVA with residual left-sided deficit and more recent CVA - New left thalamic stroke appreciated on repeat MRI. - Neurology consultation appreciated 10. BPH 11. Septic shock, intermittent- resolved - off pressor support - Most likely secondary to aspiration pneumonia - ID on board and appreciate recommendations. continue on current IV antibiotics 12. Disposition - Continue monitoring in ICU for ventilator management. Will discuss with family if they would still like to proceed with trach if needed in the near future. >35 minutes of critical care time spent with patient Result Diagram: 04/18/19 0430 04/18/19 0430 Results 24hrs Laboratory Tests Test 04/17/19 10:15 04/17/19 11:19 04/17/19 12:40 04/17/19 12:48 Blood Gas Blood arterial Specimen Source Arterial Blood 04/17/2019 10:15 Date Drawn :56 AM Arterial Blood 7.421 pH (Temp corrected ) Arterial Blood 41.2 pCO2 (Temp correct) Arterial Blood 76.3 L pO2 (Temp corrected ) Arterial Blood 26.2 H HCO3 Arterial Blood 1.6 Base Excess Arterial Blood 94.4 L Oxygen Saturati on Santino Test N/A Arterial Blood Right Brachial Gas Puncture Site Arterial 0.4 Blood Carboxyhe moglobin Arterial Blood 0.3 Methemoglobin Blood Gas A-a 161.5 H O2 Differential Oxyhemoglobin 93.7 Percent Blood Gas 37.0 Temperature Blood Gas 17 Actual Respiration Rat e Blood Gas VENT - CPAP Modality FiO2 40.0 Blood Gas Low 5.0 PEEP Setting Blood Gas 10 Pressure Support Blood Gas Notified Whom Blood Gas 04/17/2019 10:32 Notified Time :02 AM Bedside Glucose 187 134 Lab Scanned REFERENCE LAB Report Test 04/17/19 16:59 04/17/19 20:10 04/17/19 21:46 04/18/19 00:44 Bedside Glucose 113 118 116 Blood Gas Blood Specimen arterial Source Arterial Blood 04/17/2019 8:00 Date Drawn :24 PM Arterial Blood 7.498 H pH (Temp corrected ) Arterial Blood 34.5 L pCO2 (Temp correct) Arterial Blood 111.6 H pO2 (Temp corrected ) Arterial Blood 26.2 H HCO3 Arterial Blood 3.1 H Base Excess Arterial Blood 98.3 H Oxygen Saturati on Santino Test N/A Arterial Blood LB Gas Puncture Site Arterial 0.1 Blood Carboxyhe moglobin Arterial Blood 0.4 Methemoglobin Blood Gas A-a 566.9 H O2 Differential Oxyhemoglobin 97.8 Percent Blood Gas 37.0 Temperature Blood Gas 16.0 Respiration Rate Blood Gas 29 Actual Respiration Rat e Blood Gas VENT - AC Modality FiO2 100.0 Blood Gas Tidal 500.0 Volume Blood Gas Low 5.0 PEEP Setting Blood Gas NC Notified Whom Blood Gas 04/17/2019 8:23 Notified Time :16 PM Test 04/18/19 04:30 04/18/19 05:08 04/18/19 05:32 04/18/19 07:00 White Blood 10.3 # Count Red Blood Count 3.16 L Hemoglobin 9.0 L Hematocrit 28.6 L Mean 90.5 Corpuscular Volume Mean 28.5 L Corpuscular Hemoglobin Mean 31.5 L Corpuscular Hemoglobin Conc ent Red Cell 17.0 H Distribution Width Platelet Count 285 Mean Platelet 10.3 Volume Immature 1.300 H Granulocytes % Neutrophils % 75.0 Lymphocytes % 14.1 L Monocytes % 5.9 Eosinophils % 3.0 Basophils % 0.7 Nucleated Red 0.0 Blood Cells % Immature 0.130 H Granulocytes # Neutrophils # 7.8 H Lymphocytes # 1.5 Monocytes # 0.6 Eosinophils # 0.3 Basophils # 0.1 Nucleated Red 0.0 Blood Cells # Sodium Level 141 Potassium Level 3.4 L Chloride Level 106 Carbon Dioxide 26 Level Anion Gap 9 Blood Urea 12 Nitrogen Creatinine 3.53 #H Glucose Level 101 # Calcium Level 9.1 Phosphorus 2.6 Level Magnesium Level 2.0 Albumin 3.1 L Bedside Glucose 97 Lab Scanned BLOOD TRANSFUS Report ION Blood Gas Blood Specimen arterial Source Arterial Blood 04/18/2019 7:05 Date Drawn :57 AM Arterial Blood 7.432 pH (Temp corrected ) Arterial Blood 41.0 pCO2 (Temp correct) Arterial Blood 88.0 pO2 (Temp corrected ) Arterial Blood 26.7 H HCO3 Arterial Blood 2.3 Base Excess Arterial Blood 96.4 Oxygen Saturati on Santino Test N/A Arterial Blood Right Gas Brachial Puncture Site Arterial 0.3 Blood Carboxyhe moglobin Arterial Blood 0.4 Methemoglobin Blood Gas A-a 222.4 H O2 Differential Oxyhemoglobin 95.7 Percent Blood Gas 37.0 Temperature Blood Gas 16.0 Respiration Rate Blood Gas 18 Actual Respiration Rat e Blood Gas VENT - AC Modality FiO2 50.0 Blood Gas Tidal 500.0 Volume Blood Gas Low 5.0 PEEP Setting Blood Gas TM Notified Whom Blood Gas 04/18/2019 7:16 Notified Time :31 AM Test 04/18/19 08:37 Bedside Glucose 101 Subjective 24 Hr Interval Summary Free Text/Dictation Patient was reintubated yesterday due to hypoxia and was requesting for trach placement at the time. No acute overnight events. Exam/Review of Systems Exam Vitals Vital Signs Date Temp Pulse Resp B/P (MAP) Pulse Ox O2 O2 Flow FiO2 Time Delivery Rate 04/18/19 78 16 98 50 07:40 04/18/19 124/63 Nasal 06:00 (83) Cannula 04/18/19 99.1 04:00 04/17/19 6.0 18:00 Intake and Output 04/17/19 04/17/1919 1515:00 23:00 07:00 IntakeIntake Total 158.5 ml 497.66 ml 268.5 ml OutputOutput Total 3600 ml 35 ml 10 ml BalanceBalance -3441.5 ml 462.66 ml 258.5 ml Exam General: Patient is intubated. opens eyes Head: Normocephalic atraumatic Eyes: EOMI, pupils reactive to light Neck: Supple, nontender, midline Respiratory: Clear to auscultation bilaterally. diminished at bases. no wheezing appreciated Cardiovascular: regular rate and rhythm, no obvious murmurs Gastrointestinal: soft, non-tender to palpation, nondistended, bowel sounds heard. Ext: moving RUE. no cyanosis, clubbing or edema Skin: No new skin lesions Results Results 24hrs Laboratory Tests Test 04/17/19 10:15 04/17/19 11:19 04/17/19 12:40 04/17/19 12:48 Blood Gas Blood arterial Specimen Source Arterial Blood 04/17/2019 10:15 Date Drawn :56 AM Arterial Blood 7.421 pH (Temp corrected ) Arterial Blood 41.2 pCO2 (Temp correct) Arterial Blood 76.3 L pO2 (Temp corrected ) Arterial Blood 26.2 H HCO3 Arterial Blood 1.6 Base Excess Arterial Blood 94.4 L Oxygen Saturati on Santino Test N/A Arterial Blood Right Brachial Gas Puncture Site Arterial 0.4 Blood Carboxyhe moglobin Arterial Blood 0.3 Methemoglobin Blood Gas A-a 161.5 H O2 Differential Oxyhemoglobin 93.7 Percent Blood Gas 37.0 Temperature Blood Gas 17 Actual Respiration Rat e Blood Gas VENT - CPAP Modality FiO2 40.0 Blood Gas Low 5.0 PEEP Setting Blood Gas 10 Pressure Support Blood Gas Notified Whom Blood Gas 04/17/2019 10:32 Notified Time :02 AM Bedside Glucose 187 134 Lab Scanned REFERENCE LAB Report Test 04/17/19 16:59 04/17/19 20:10 04/17/19 21:46 04/18/19 00:44 Bedside Glucose 113 118 116 Blood Gas Blood Specimen arterial Source Arterial Blood 04/17/2019 8:00 Date Drawn :24 PM Arterial Blood 7.498 H pH (Temp corrected ) Arterial Blood 34.5 L pCO2 (Temp correct) Arterial Blood 111.6 H pO2 (Temp corrected ) Arterial Blood 26.2 H HCO3 Arterial Blood 3.1 H Base Excess Arterial Blood 98.3 H Oxygen Saturati on Santino Test N/A Arterial Blood LB Gas Puncture Site Arterial 0.1 Blood Carboxyhe moglobin Arterial Blood 0.4 Methemoglobin Blood Gas A-a 566.9 H O2 Differential Oxyhemoglobin 97.8 Percent Blood Gas 37.0 Temperature Blood Gas 16.0 Respiration Rate Blood Gas 29 Actual Respiration Rat e Blood Gas VENT - AC Modality FiO2 100.0 Blood Gas Tidal 500.0 Volume Blood Gas Low 5.0 PEEP Setting Blood Gas NC Notified Whom Blood Gas 04/17/2019 8:23 Notified Time :16 PM Test 04/18/19 04:30 04/18/19 05:08 04/18/19 05:32 04/18/19 07:00 White Blood 10.3 # Count Red Blood Count 3.16 L Hemoglobin 9.0 L Hematocrit 28.6 L Mean 90.5 Corpuscular Volume Mean 28.5 L Corpuscular Hemoglobin Mean 31.5 L Corpuscular Hemoglobin Conc ent Red Cell 17.0 H Distribution Width Platelet Count 285 Mean Platelet 10.3 Volume Immature 1.300 H Granulocytes % Neutrophils % 75.0 Lymphocytes % 14.1 L Monocytes % 5.9 Eosinophils % 3.0 Basophils % 0.7 Nucleated Red 0.0 Blood Cells % Immature 0.130 H Granulocytes # Neutrophils # 7.8 H Lymphocytes # 1.5 Monocytes # 0.6 Eosinophils # 0.3 Basophils # 0.1 Nucleated Red 0.0 Blood Cells # Sodium Level 141 Potassium Level 3.4 L Chloride Level 106 Carbon Dioxide 26 Level Anion Gap 9 Blood Urea 12 Nitrogen Creatinine 3.53 #H Glucose Level 101 # Calcium Level 9.1 Phosphorus 2.6 Level Magnesium Level 2.0 Albumin 3.1 L Bedside Glucose 97 Lab Scanned BLOOD TRANSFUS Report ION Blood Gas Blood Specimen arterial Source Arterial Blood 04/18/2019 7:05 Date Drawn :57 AM Arterial Blood 7.432 pH (Temp corrected ) Arterial Blood 41.0 pCO2 (Temp correct) Arterial Blood 88.0 pO2 (Temp corrected ) Arterial Blood 26.7 H HCO3 Arterial Blood 2.3 Base Excess Arterial Blood 96.4 Oxygen Saturati on Santino Test N/A Arterial Blood Right Gas Brachial Puncture Site Arterial 0.3 Blood Carboxyhe moglobin Arterial Blood 0.4 Methemoglobin Blood Gas A-a 222.4 H O2 Differential Oxyhemoglobin 95.7 Percent Blood Gas 37.0 Temperature Blood Gas 16.0 Respiration Rate Blood Gas 18 Actual Respiration Rat e Blood Gas VENT - AC Modality FiO2 50.0 Blood Gas Tidal 500.0 Volume Blood Gas Low 5.0 PEEP Setting Blood Gas TM Notified Whom Blood Gas 04/18/2019 7:16 Notified Time :31 AM Test 04/18/19 08:37 Bedside Glucose 101 Medications Medication Current Medications IV Flush (NS 3 ml) 3 ml PER PROTOCOL IV ; Start 03/29/19 at 13:30 Ondansetron HCl (Zofran Inj) 4 mg Q6H PRN IV NAUSEA/VOMITING Last administered on 04/07/19at 18:53; Admin Dose 4 MG; Start 03/29/19 at 13:30 Acetaminophen (Tylenol Tab) 650 mg Q6H PRN PO .PAIN 1-3 OR TEMP Last administered on 03/31/19at 05:48; Admin Dose 650 MG; Start 03/29/19 at 13:30 Hydralazine HCl (Apresoline) 10 mg Q4H PRN IV sbp >185 Last administered on 04/17/19at 05:34; Admin Dose 10 MG; Start 03/29/19 at 14:00 Miscellaneous Information 1 ea NOTE XX ; Start 03/29/19 at 14:30 Glucose (Glutose) 15 gm Q15M PRN PO DECREASED GLUCOSE; Start 03/29/19 at 14:30 Glucose (Glutose) 22.5 gm Q15M PRN PO DECREASED GLUCOSE; Start 03/29/19 at 14:30 Dextrose (D50w Syringe) 25 ml Q15M PRN IV DECREASED GLUCOSE Last administered on 04/13/19 05:56; Admin Dose 25 ML; Start 03/29/19 at 14:30; Status Hold Dextrose (D50w Syringe) 50 ml Q15M PRN IV DECREASED GLUCOSE; Start 03/29/19 at 14:30 Glucagon (Glucagen) 1 mg Q15M PRN IM DECREASED GLUCOSE; Start 03/29/19 at 14:30 Glucose (Glutose) 15 gm Q15M PRN BUCCAL DECREASED GLUCOSE; Start 03/29/19 at 14:30 Albumin Human 100 ml @ 100 mls/hr WITH DIALYSIS PRN IV SBP <90 DURING DIALYSIS Last administered on 04/15/19at 17:39; Admin Dose 100 MLS/HR; Start 03/29/19 at 17:00 Albuterol/ Ipratropium (Duoneb) 3 ml Q2H RESP THERAPY PRN HHN WHEEZING AND RESP DISTRESS Last administered on 04/09/19 08:52; Admin Dose 3 ML; Start 03/29/19 at 18:00 Lorazepam (Ativan) 0.5 mg Q4H PRN IV AGITATION Last administered on 04/16/19 15:45; Admin Dose 0.5 MG; Start 03/29/19 at 18:00 IV Flush (NS 10 ml) 10 ml Q8 PRN IV IV PROTOCOL; Start 03/29/19 at 18:00 Labetalol HCl (Labetalol) 10 mg Q4H PRN IV sbp >160; Start 03/30/19 at 09:00 Haloperidol (Haldol) 5 mg Q6H PRN IM agitation Last administered on 03/31/19 00:10; Admin Dose 5 MG; Start 03/30/19 at 10:00 Heparin Sodium (Porcine) (Heparin (1000 Units/ml)) 3,200 unit AFTER DIALYSIS CATHETER Last administered on 04/17/19 14:31; Admin Dose 3,200 UNIT; Start 03/30/19 at 17:00 Atorvastatin Calcium (Lipitor) 40 mg HS NGT Last administered on 04/17/19 21:44; Admin Dose 40 MG; Start 03/31/19 at 21:00 Baclofen (Lioresal) 10 mg BID GTB Last administered on 04/18/19 08:38; Admin Dose 10 MG; Start 03/31/19 at 21:00 Doxazosin Mesylate (Cardura) 2 mg DAILY NGT Last administered on 04/18/19 08:38; Admin Dose 2 MG; Start 03/31/19 at 14:30 Gabapentin (Neurontin) 100 mg QHS PO Last administered on 04/17/19 21:44; A dmin Dose 100 MG; Start 03/31/19 at 21:00 Acetaminophen (Tylenol Liquid) 650 mg Q4H PRN PEG MILD PAIN(1-3)OR ELEVATED TEMP Last administered on 04/16/19 08:42; Admin Dose 650 MG; Start 03/31/19 at 16:00 Lactobacillus Acidophilus/ Rhamnosus (Culturelle) 1 cap TID GTB Last administered on 04/18/19 08:37; Admin Dose 1 CAP; Start 04/02/19 at 13:00 Epoetin [place]-epbx (Retacrit (Esrd)) 10,000 unit MoWeFr@1700 SC Last administered on 04/17/19 18:12; Admin Dose 10,000 UNIT; Start 04/03/19 at 19:30 Lansoprazole (Prevacid) 30 mg BID@0600,1800 GTB Last administered on 04/18/19 05:06; Admin Dose 30 MG; Start 04/04/19 at 18:00 Multivit/Ca Carb/ B Cmplx/FA/Prenat (Karena-Geovanni) 1 tab DAILY GTB Last ad ministered on 04/18/19 08:38; Admin Dose 1 TAB; Start 04/04/19 at 11:30 Aspirin (Aspirin) 81 mg DAILY PO Last administered on 04/11/19 08:46; Admin Dose 81 MG; Start 04/05/19 at 09:00; Status Hold Propofol 100 ml @ 2.097 mls/ hr Q12H PRN IV AGITATION Last administered on 04/08/19 11:39; Admin Dose 6.291 MLS/HR; Start 04/08/19 at 00:00 Fentanyl 100 ml @ 2.5 mls/hr TITRATE IV Last administered on 04/17/19 20:44; Admin Dose 5 MLS/HR; Start 04/08/19 at 00:00 Midazolam HCl 50 ml @ 1 mls/hr TITRATE PRN IV agitation Last administered on 04/17/19 22:04; Admin Dose 1 MLS/HR; Start 04/08/19 at 00:00 Norepinephrine 250 ml @ 1.875 mls/ hr TITRATE IV Last administered on 04/15/19 05:45; Admin Dose 1.875 MLS/HR; Start 04/08/19 at 00:00 Nicardipine HCl 50 mg/Sodium Chloride 500 ml @ 50 mls/hr TITRATE IV ; Start 04/08/19 at 09:30 Mupirocin (Bactroban) 1 applic BID TOP Last administered on 04/18/19 08:50; Admin Dose 1 APPLIC; Start 04/09/19 at 21:00 Budesonide (Pulmicort (Neb)) 0.5 mg BID RESP THERAPY HHN Last administered on 04/17/19 09:22; Admin Dose 0.5 MG; Start 04/12/19 at 09:00 Amikacin Sulfate (Amikacin Iv Per Pharmacy) AMIKACIN PER PHARMACY NOTE XX ; Start 04/12/19 at 10:30 Metronidazole 100 ml @ 100 mls/hr Q8 IVPB Last administered on 04/18/19 05:06; Admin Dose 100 MLS/HR; Start 04/12/19 at 14:00 Carvedilol (Coreg) 12.5 mg BID NGT Last administered on 04/18/19 08:38; Admin Dose 12.5 MG; Start 04/12/19 at 21:00 Amikacin Sulfate 300 mg/Sodium Chloride 101.2 ml @ 101.2 mls/ hr AFTER DIALYSIS IVPB Last administered on 04/17/19 14:43; Admin Dose 101.2 MLS/HR; Start 04/13/19 at 09:00 Dextrose 1,000 ml @ 50 mls/hr Q20H IV Last administered on 04/13/19 09:08; Admin Dose 75 MLS/HR; Start 04/13/19 at 09:00; Status Hold Insulin Aspart (Novolog Insulin Pen) NOVOLOG *MILD* ALGORI... Q4 SC Last administered on 04/17/19 09:02; Admin Dose 3 UNIT; Start 04/13/19 at 09:00 Clopidogrel Bisulfate (plaVIX) 75 mg DAILY GTB Last administered on 04/18/19 08:38; Admin Dose 75 MG; Start 04/16/19 at 09:00 Quetiapine Fumarate (Seroquel) 50 mg QHS GTB Last administered on 04/17/19 21:43; Admin Dose 50 MG; Start 04/16/19 at 21:00 Losartan Potassium (Cozaar) 25 mg DAILY PO Last administered on 04/18/19 08:38; Admin Dose 25 MG; Start 04/17/19 at 09:00 Alteplase, Recombinant (Cathflo (Activase)) 2 mg MAY REPEAT X1 PRN CATHETER IF CATHETER REMAINS OCCULUDED Last administered on 04/17/19 11:21; Admin Dose 2 MG; Start 04/17/19 at 09:30 Insulin Glargine (Lantus) 10 units DAILY@0800 SC Last administered on 04/18/19 08:50; Admin Dose 10 UNITS; Start 04/17/19 at 11:00 Metoclopramide HCl (Reglan) 10 mg Q6 IV Last administered on 04/18/19 05:06; Admin Dose 10 MG; Start 04/17/19 at 18:00 Albuterol (Ventolin Hfa) 4 puff Q6H RESP THERAPY INH Last administered on 04/18/19 01:22; Admin Dose 4 PUFF; Start 04/18/19 at 02:00 Ipratropium Joseph (Atrovent Hfa) 4 puff Q6H RESP THERAPY INH Last administered on 04/18/19 01:22; Admin Dose 4 PUFF; Start 04/18/19 at 02:00 LILLIAN ZHANG MD Apr 18, 2019 09:08
--- NOTE | 2019-04-18 09:27 | CONS ---
Assessment/Plan Assessment/Plan Assessment/Plan (Daily) Ventilator setting; AC of 16, tidal volume 500, PEEP of 5, 50% FiO2. Postintubation chest x-ray is essentially unremarkable. Assessment and recommendations; 1. Patient with history of multiple CVAs admitted for respiratory failure with pneumonia with significant radiological improvement. Patient was extubated yesterday afternoon after meeting adequate criteria on CPAP mode but then had to be reintubated for recurrent respiratory failure few hours later. Patient likely unable to protect his airway. 2. History of hypertension. 3. Prior CABG. 4. End-stage renal disease. On hemodialysis. 5. History of diabetes. 6. Peripheral neuropathy. 7. BPH. 8. Anemia. 9. Severe encephalopathy. Continue current supportive care. Patient likely will need to have a tracheostomy performed. The family is leaning in the direction. Overall prognosis remains very poor. 35 minutes of critical care time was spent evaluating the patient. Consultation Date/Type/Reason Admit Date/Time Mar 29, 2019 at 13:16 Initial Consult Date 04/07/19 Type of Consult Pulmonary/critical care Patient condition remains critical. Has failed ventilator weaning trials General exam; middle-aged male, orally intubated, awake but noncommunicative. Currently no distress. Requesting Provider: LILLIAN ZHANG MD Date/Time of Note DATE: 04/18/19 TIME: 09:23 24 HR Interval Summary Free Text/Dictation Patient's condition is critical. Patient was extubated yesterday afternoon after meeting adequate extubation criteria but then developed recurrent respiratory failure requiring reintubation around 7:30 PM last night. Patient however has remained hemodynamically stable. General exam; middle-aged male, orally intubated, awake but unresponsive. Currently no distress. Exam/Review of Systems Exam Vitals Vital Signs Date Temp Pulse Resp B/P (MAP) Pulse Ox O2 O2 Flow FiO2 Time Delivery Rate 04/18/19 88 16 166/73 98 Mechanical 09:00 (104) Ventilator 04/18/19 50 08:00 04/18/19 98.4 08:00 04/17/19 6.0 18:00 Intake and Output 04/17/19 04/17/19 04/18/19 1414:59 22:59 06:59 IntakeIntake Total 162.0 ml 482.66 ml 287.0 ml OutputOutput Total 3600 ml 35 ml 10 ml BalanceBalance -3438.0 ml 447.66 ml 277.0 ml Exam H ENT exam; supple neck, no JVD. No lymphadenopathy. Midline trachea. No thyromegaly. Orally intubated. No neck masses. Pupils are small bilaterally. Chest exam; diminished but clear breath sounds. S1-S2 audible, no murmurs. Regular rhythm. There is a well-healed sternal scar. Abdomen exam; soft, no organomegaly. G-tube in place. Bowel sounds are audible. Extremity exam; trace edema. [employer] exam; patient awake but noncommunicative. Results Result Diagram: 04/18/19 0430 04/18/19 0430 Results 24hrs Laboratory Tests Test 04/17/19 10:15 04/17/19 11:19 04/17/19 12:40 04/17/19 12:48 Blood Gas Blood arterial Specimen Source Arterial Blood 04/17/2019 10:15 Date Drawn :56 AM Arterial Blood 7.421 pH (Temp corrected ) Arterial Blood 41.2 pCO2 (Temp correct) Arterial Blood 76.3 L pO2 (Temp corrected ) Arterial Blood 26.2 H HCO3 Arterial Blood 1.6 Base Excess Arterial Blood 94.4 L Oxygen Saturati on Santino Test N/A Arterial Blood Right Brachial Gas Puncture Site Arterial 0.4 Blood Carboxyhe moglobin Arterial Blood 0.3 Methemoglobin Blood Gas A-a 161.5 H O2 Differential Oxyhemoglobin 93.7 Percent Blood Gas 37.0 Temperature Blood Gas 17 Actual Respiration Rat e Blood Gas VENT - CPAP Modality FiO2 40.0 Blood Gas Low 5.0 PEEP Setting Blood Gas 10 Pressure Support Blood Gas Notified Whom Blood Gas 04/17/2019 10:32 Notified Time :02 AM Bedside Glucose 187 134 Lab Scanned REFERENCE LAB Report Test 04/17/19 16:59 04/17/19 20:10 04/17/19 21:46 04/18/19 00:44 Bedside Glucose 113 118 116 Blood Gas Blood Specimen arterial Source Arterial Blood 04/17/2019 8:00 Date Drawn :24 PM Arterial Blood 7.498 H pH (Temp corrected ) Arterial Blood 34.5 L pCO2 (Temp correct) Arterial Blood 111.6 H pO2 (Temp corrected ) Arterial Blood 26.2 H HCO3 Arterial Blood 3.1 H Base Excess Arterial Blood 98.3 H Oxygen Saturati on Santino Test N/A Arterial Blood LB Gas Puncture Site Arterial 0.1 Blood Carboxyhe moglobin Arterial Blood 0.4 Methemoglobin Blood Gas A-a 566.9 H O2 Differential Oxyhemoglobin 97.8 Percent Blood Gas 37.0 Temperature Blood Gas 16.0 Respiration Rate Blood Gas 29 Actual Respiration Rat e Blood Gas VENT - AC Modality FiO2 100.0 Blood Gas Tidal 500.0 Volume Blood Gas Low 5.0 PEEP Setting Blood Gas MA Notified Whom Blood Gas 04/17/2019 8:23 Notified Time :16 PM Test 04/18/19 04:30 04/18/19 05:08 04/18/19 05:32 04/18/19 07:00 White Blood 10.3 # Count Red Blood Count 3.16 L Hemoglobin 9.0 L Hematocrit 28.6 L Mean 90.5 Corpuscular Volume Mean 28.5 L Corpuscular Hemoglobin Mean 31.5 L Corpuscular Hemoglobin Conc ent Red Cell 17.0 H Distribution Width Platelet Count 285 Mean Platelet 10.3 Volume Immature 1.300 H Granulocytes % Neutrophils % 75.0 Lymphocytes % 14.1 L Monocytes % 5.9 Eosinophils % 3.0 Basophils % 0.7 Nucleated Red 0.0 Blood Cells % Immature 0.130 H Granulocytes # Neutrophils # 7.8 H Lymphocytes # 1.5 Monocytes # 0.6 Eosinophils # 0.3 Basophils # 0.1 Nucleated Red 0.0 Blood Cells # Sodium Level 141 Potassium Level 3.4 L Chloride Level 106 Carbon Dioxide 26 Level Anion Gap 9 Blood Urea 12 Nitrogen Creatinine 3.53 #H Glucose Level 101 # Calcium Level 9.1 Phosphorus 2.6 Level Magnesium Level 2.0 Albumin 3.1 L Bedside Glucose 97 Lab Scanned BLOOD TRANSFUS Report ION Blood Gas Blood Specimen arterial Source Arterial Blood 04/18/2019 7:05 Date Drawn :57 AM Arterial Blood 7.432 pH (Temp corrected ) Arterial Blood 41.0 pCO2 (Temp correct) Arterial Blood 88.0 pO2 (Temp corrected ) Arterial Blood 26.7 H HCO3 Arterial Blood 2.3 Base Excess Arterial Blood 96.4 Oxygen Saturati on Santino Test N/A Arterial Blood Right Gas Brachial Puncture Site Arterial 0.3 Blood Carboxyhe moglobin Arterial Blood 0.4 Methemoglobin Blood Gas A-a 222.4 H O2 Differential Oxyhemoglobin 95.7 Percent Blood Gas 37.0 Temperature Blood Gas 16.0 Respiration Rate Blood Gas 18 Actual Respiration Rat e Blood Gas VENT - AC Modality FiO2 50.0 Blood Gas Tidal 500.0 Volume Blood Gas Low 5.0 PEEP Setting Blood Gas TM Notified Whom Blood Gas 04/18/2019 7:16 Notified Time :31 AM Test 04/18/19 08:37 Bedside Glucose 101 Medications Medication Current Medications IV Flush (NS 3 ml) 3 ml PER PROTOCOL IV ; Start 03/29/19 at 13:30 Ondansetron HCl (Zofran Inj) 4 mg Q6H PRN IV NAUSEA/VOMITING Last administered on 04/07/19at 18:53; Admin Dose 4 MG; Start 03/29/19 at 13:30 Acetaminophen (Tylenol Tab) 650 mg Q6H PRN PO .PAIN 1-3 OR TEMP Last administered on 03/31/19at 05:48; Admin Dose 650 MG; Start 03/29/19 at 13:30 Hydralazine HCl (Apresoline) 10 mg Q4H PRN IV sbp >185 Last administered on 04/17/19at 05:34; Admin Dose 10 MG; Start 03/29/19 at 14:00 Miscellaneous Information 1 ea NOTE XX ; Start 03/29/19 at 14:30 Glucose (Glutose) 15 gm Q15M PRN PO DECREASED GLUCOSE; Start 03/29/19 at 14:30 Glucose (Glutose) 22.5 gm Q15M PRN PO DECREASED GLUCOSE; Start 03/29/19 at 14:30 Dextrose (D50w Syringe) 25 ml Q15M PRN IV DECREASED GLUCOSE Last administered on 04/13/19at 05:56; Admin Dose 25 ML; Start 03/29/19 at 14:30; Status Hold Dextrose (D50w Syringe) 50 ml Q15M PRN IV DECREASED GLUCOSE; Start 03/29/19 at 14:30 Glucagon (Glucagen) 1 mg Q15M PRN IM DECREASED GLUCOSE; Start 03/29/19 at 14:30 Glucose (Glutose) 15 gm Q15M PRN BUCCAL DECREASED GLUCOSE; Start 03/29/19 at 14:30 Albumin Human 100 ml @ 100 mls/hr WITH DIALYSIS PRN IV SBP <90 DURING DIALYSIS Last administered on 04/15/19at 17:39; Admin Dose 100 MLS/HR; Start 03/29/19 at 17:00 Albuterol/ Ipratropium (Duoneb) 3 ml Q2H RESP THERAPY PRN HHN WHEEZING AND RESP DISTRESS Last administered on 04/09/19 08:52; Admin Dose 3 ML; Start 03/29/19 at 18:00 Lorazepam (Ativan) 0.5 mg Q4H PRN IV AGITATION Last administered on 04/16/19 15:45; Admin Dose 0.5 MG; Start 03/29/19 at 18:00 IV Flush (NS 10 ml) 10 ml Q8 PRN IV IV PROTOCOL; Start 03/29/19 at 18:00 Labetalol HCl (Labetalol) 10 mg Q4H PRN IV sbp >160; Start 03/30/19 at 09:00 Haloperidol (Haldol) 5 mg Q6H PRN IM agitation Last administered on 03/31/19 00:10; Admin Dose 5 MG; Start 03/30/19 at 10:00 Heparin Sodium (Porcine) (Heparin (1000 Units/ml)) 3,200 unit AFTER DIALYSIS CATHETER Last administered on 04/17/19 14:31; Admin Dose 3,200 UNIT; Start 03/30/19 at 17:00 Atorvastatin Calcium (Lipitor) 40 mg HS NGT Last administered on 04/17/19 21:44; Admin Dose 40 MG; Start 03/31/19 at 21:00 Baclofen (Lioresal) 10 mg BID GTB Last administered on 04/18/19 08:38; Admin Dose 10 MG; Start 03/31/19 at 21:00 Doxazosin Mesylate (Cardura) 2 mg DAILY NGT Last administered on 04/18/19 08:38; Admin Dose 2 MG; Start 03/31/19 at 14:30 Gabapentin (Neurontin) 100 mg QHS PO Last administered on 04/17/19 21:44; Admin Dose 100 MG; Start 03/31/19 at 21:00 Acetaminophen (Tylenol Liquid) 650 mg Q4H PRN PEG MILD PAIN(1-3)OR ELEVATED TEMP Last administered on 04/16/19 08:42; Admin Dose 650 MG; Start 03/31/19 at 16:00 Lactobacillus Acidophilus/ Rhamnosus (Culturelle) 1 cap TID GTB Last administered on 04/18/19 08:37; Admin Dose 1 CAP; Start 04/02/19 at 13:00 Epoetin [place]-epbx (Retacrit (Esrd)) 10,000 unit MoWeFr@1700 SC Last administ ered on 04/17/19 18:12; Admin Dose 10,000 UNIT; Start 04/03/19 at 19:30 Lansoprazole (Prevacid) 30 mg BID@0600,1800 GTB Last administered on 04/18/19 05:06; Admin Dose 30 MG; Start 04/04/19 at 18:00 Multivit/Ca Carb/ B Cmplx/FA/Prenat (Karena-Geovanni) 1 tab DAILY GTB Last administered on 04/18/19 08:38; Admin Dose 1 TAB; Start 04/04/19 at 11:30 Aspirin (Aspirin) 81 mg DAILY PO Last administered on 04/11/19 08:46; Admin Dose 81 MG; Start 04/05/19 at 09:00; Status Hold Propofol 100 ml @ 2.097 mls/ hr Q12H PRN IV AGITATION Last administered on 04/08/19 11:39; Admin Dose 6.291 MLS/HR; Start 04/08/19 at 00:00 Fentanyl 100 ml @ 2.5 mls/hr TITRATE IV Last administered on 04/17/19 20:44; Admin Dose 5 MLS/HR; Start 04/08/19 at 00:00 Midazolam HCl 50 ml @ 1 mls/hr TITRATE PRN IV agitation Last administered on 04/17/19 22:04; Admin Dose 1 MLS/HR; Start 04/08/19 at 00:00 Norepinephrine 250 ml @ 1.875 mls/ hr TITRATE IV Last administered on 04/15/19 05:45; Admin Dose 1.875 MLS/HR; Start 04/08/19 at 00:00 Nicardipine HCl 50 mg/Sodium Chloride 500 ml @ 50 mls/hr TITRATE IV ; Start 04/08/19 at 09:30 Mupirocin (Bactroban) 1 applic BID TOP Last administered on 04/18/19 08:50; Admin Dose 1 APPLIC; Start 04/09/19 at 21:00 Budesonide (Pulmicort (Neb)) 0.5 mg BID RESP THERAPY HHN Last administered on 04/17/19 09:22; Admin Dose 0.5 MG; Start 04/12/19 at 09:00 Amikacin Sulfate (Amikacin Iv Per Pharmacy) AMIKACIN PER PHARMACY NOTE XX ; Start 04/12/19 at 10:30 Metronidazole 100 ml @ 100 mls/hr Q8 IVPB Last administered on 04/18/19 05:06; Admin Dose 100 MLS/HR; Start 04/12/19 at 14:00 Carvedilol (Coreg) 12.5 mg BID NGT Last administered on 04/18/19 08:38; Admin Dose 12.5 MG; Start 04/12/19 at 21:00 Amikacin Sulfate 300 mg/Sodium Chloride 101.2 ml @ 101.2 mls/ hr AFTER DIALYSIS IVPB Last administered on 04/17/19 14:43; Admin Dose 101.2 MLS/HR; Start 04/13/19 at 09:00 Dextrose 1,000 ml @ 50 mls/hr Q20H IV Last administered on 04/13/19 09:08; Admin Dose 75 MLS/HR; Start 04/13/19 at 09:00; Status Hold Insulin Aspart (Novolog Insulin Pen) NOVOLOG *MILD* ALGORI... Q4 SC Last adm inistered on 04/17/19 09:02; Admin Dose 3 UNIT; Start 04/13/19 at 09:00 Clopidogrel Bisulfate (plaVIX) 75 mg DAILY GTB Last administered on 04/18/19 08:38; Admin Dose 75 MG; Start 04/16/19 at 09:00 Quetiapine Fumarate (Seroquel) 50 mg QHS GTB Last administered on 04/17/19 21:43; Admin Dose 50 MG; Start 04/16/19 at 21:00 Losartan Potassium (Cozaar) 25 mg DAILY PO Last administered on 04/18/19 0 8:38; Admin Dose 25 MG; Start 04/17/19 at 09:00 Alteplase, Recombinant (Cathflo (Activase)) 2 mg MAY REPEAT X1 PRN CATHETER IF CATHETER REMAINS OCCULUDED Last administered on 04/17/19 11:21; Admin Dose 2 MG; Start 04/17/19 at 09:30 Insulin Glargine (Lantus) 10 units DAILY@0800 SC Last administered on 04/18/19 08:50; Admin Dose 10 UNITS; Start 04/17/19 at 11:00 Metoclopramide HCl (Reglan) 10 mg Q6 IV Last administered on 04/18/19 05:06; Admin Dose 10 MG; Start 04/17/19 at 18:00 Albuterol (Ventolin Hfa) 4 puff Q6H RESP THERAPY INH Last administered on 04/18/19 01:22; Admin Dose 4 PUFF; Start 04/18/19 at 02:00 Ipratropium [place] (Atrovent Hfa) 4 puff Q6H RESP THERAPY INH Last adminis tered on 04/18/19 01:22; Admin Dose 4 PUFF; Start 04/18/19 at 02:00 ALEXANDRA JACKSON Apr 18, 2019 09:27
[2019-04-18] MEDS: BUDESONIDE (NEB) 0.5MG/2ML AMP HHN SCH ×2 (09:44→20:36)
[2019-04-18] MEDS: FENTAnyl (DRIP) 1000 mcg/100mL 100 ML IV SCH (11:54)
[2019-04-18] MEDS: MIDAZOLAM (DRIP) 50 mg/50 mL 50 ML IV PRN (11:54)
--- NOTE | 2019-04-18 13:25 | CONS ---
Assessment/Plan Assessment/Plan Assessment/Plan (Daily) 1. Acute hypoxemic respiratory failure intubated on ventilator 2. Accelerated HTN 3. ESRD on HD - MWF schedule at [facility] [place] 4. H/o CAD s/p CABG before 5. H/o CAD with previous recent stent placement in 09/2018 6. h/o HTN 7. H/o DM II 8. h/o HL 9. 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 H/o BPH Plan: s/p HD yesterday 3 L removed, will continue pt on MWF schedule while being in hospital Patient was extubated yesterday afternoon after meeting adequate criteria on CPAP mode but then had to be reintubated for recurrent respiratory failure few hours later. Patient likely unable to protect his airway - pt will need Tracheostomy and pt family is leaning in that direction pt is on Coreg 12.5 mg pO BID, BP still high , will add losartan 25 mg po daily and HYdralazine 50mg PO TID , cardura 2 mg po daily IV abx amikacin, Flagyl renally dose all abx and monitor electrolytes Epogen 52555 units SQ MWF will follow up Consultation Date/Type/Reason Admit Date/Time Mar 29, 2019 at 13:16 Initial Consult Date 03/29/19 Type of Consult NEPHROLOGY Requesting Provider: LLILIAN ZHANG MD Date/Time of Note DATE: 04/18/19 TIME: 13:24 24 HR Interval Summary Free Text/Dictation Patient was extubated yesterday afternoon after meeting adequate criteria on CPAP mode but then had to be reintubated for recurrent respiratory failure few hours later. Patient likely unable to protect his airway Exam/Review of Systems Exam Vitals Vital Signs Date Temp Pulse Resp B/P (MAP) Pulse Ox O2 O2 Flow FiO2 Time Delivery Rate 04/18/19 98.6 85 19 177/80 97 Mechanical 12:00 (112) Ventilator 04/18/19 50 11:32 04/17/19 6.0 18:00 Intake and Output 04/17/19 04/17/19 04/18/19 1515:00 23:00 07:00 IntakeIntake Total 158.5 ml 497.66 ml 295.5 ml OutputOutput Total 3600 ml 35 ml 10 ml BalanceBalance -3441.5 ml 462.66 ml 285.5 ml Exam Constitutional: intubated on ventilator , ET tube in place Respiratory: crackles/rales, diminished breath sounds Cardiovascular: regular rate and rhythm, nl pulses Gastrointestinal: soft, non-tender Musculoskeletal: swelling (1-2+pitting edema ) Extremities: normal pulses Neurological: Non focal Results Result Diagram: 04/18/19 0430 04/18/19 0430 Results 24hrs Laboratory Tests Test 04/17/19 16:59 04/17/19 20:10 04/17/19 21:46 04/18/19 00:44 Bedside Glucose 113 118 116 Blood Gas Blood arterial Specimen Source Arterial Blood 04/17/2019 8:00: Date Drawn 24 PM Arterial Blood 7.498 H pH (Temp corrected ) Arterial Blood 34.5 L pCO2 (Temp correct) Arterial Blood 111.6 H pO2 (Temp corrected ) Arterial Blood 26.2 H HCO3 Arterial Blood 3.1 H Base Excess Arterial Blood 98.3 H Oxygen Saturati on Santino Test N/A Arterial Blood LB Gas Puncture Site Arterial 0.1 Blood Carboxyhe moglobin Arterial Blood 0.4 Methemoglobin Blood Gas A-a 566.9 H O2 Differential Oxyhemoglobin 97.8 Percent Blood Gas 37.0 Temperature Blood Gas 16.0 Respiration Rate Blood Gas 29 Actual Respiration Rat e Blood Gas VENT - AC Modality FiO2 100.0 Blood Gas Tidal 500.0 Volume Blood Gas Low 5.0 PEEP Setting Blood Gas MA Notified Whom Blood Gas 04/17/2019 8:23: Notified Time 16 PM Test 04/18/19 04:30 04/18/19 05:08 04/18/19 05:32 04/18/19 07:00 White Blood 10.3 # Count Red Blood Count 3.16 L Hemoglobin 9.0 L Hematocrit 28.6 L Mean 90.5 Corpuscular Volume Mean 28.5 L Corpuscular Hemoglobin Mean 31.5 L Corpuscular Hemoglobin Conc ent Red Cell 17.0 H Distribution Width Platelet Count 285 Mean Platelet 10.3 Volume Immature 1.300 H Granulocytes % Neutrophils % 75.0 Lymphocytes % 14.1 L Monocytes % 5.9 Eosinophils % 3.0 Basophils % 0.7 Nucleated Red 0.0 Blood Cells % Immature 0.130 H Granulocytes # Neutrophils # 7.8 H Lymphocytes # 1.5 Monocytes # 0.6 Eosinophils # 0.3 Basophils # 0.1 Nucleated Red 0.0 Blood Cells # Sodium Level 141 Potassium Level 3.4 L Chloride Level 106 Carbon Dioxide 26 Level Anion Gap 9 Blood Urea 12 Nitrogen Creatinine 3.53 #H Glucose Level 101 # Calcium Level 9.1 Phosphorus 2.6 Level Magnesium Level 2.0 Albumin 3.1 L Bedside Glucose 97 Lab Scanned BLOOD TRANSFUSI Report ON Blood Gas Blood Specimen arterial Source Arterial Blood 04/18/2019 7:05 Date Drawn :57 AM Arterial Blood 7.432 pH (Temp corrected ) Arterial Blood 41.0 pCO2 (Temp correct) Arterial Blood 88.0 pO2 (Temp corrected ) Arterial Blood 26.7 H HCO3 Arterial Blood 2.3 Base Excess Arterial Blood 96.4 Oxygen Saturati on Santino Test N/A Arterial Blood Right Gas Brachial Puncture Site Arterial 0.3 Blood Carboxyhe moglobin Arterial Blood 0.4 Methemoglobin Blood Gas A-a 222.4 H O2 Differential Oxyhemoglobin 95.7 Percent Blood Gas 37.0 Temperature Blood Gas 16.0 Respiration Rate Blood Gas 18 Actual Respiration Rat e Blood Gas VENT - AC Modality FiO2 50.0 Blood Gas Tidal 500.0 Volume Blood Gas Low 5.0 PEEP Setting Blood Gas TM Notified Whom Blood Gas 04/18/2019 7:16 Notified Time :31 AM Test 04/18/19 08:37 04/18/19 13:12 Bedside Glucose 101 125 Medications Medication Current Medications IV Flush (NS 3 ml) 3 ml PER PROTOCOL IV ; Start 03/29/19 at 13:30 Ondansetron HCl (Zofran Inj) 4 mg Q6H PRN IV NAUSEA/VOMITING Last administered on 04/07/19at 18:53; Admin Dose 4 MG; Start 03/29/19 at 13:30 Acetaminophen (Tylenol Tab) 650 mg Q6H PRN PO .PAIN 1-3 OR TEMP Last administ ered on 03/31/19at 05:48; Admin Dose 650 MG; Start 03/29/19 at 13:30 Hydralazine HCl (Apresoline) 10 mg Q4H PRN IV sbp >185 Last administered on 04/17/19at 05:34; Admin Dose 10 MG; Start 03/29/19 at 14:00 Miscellaneous Information 1 ea NOTE XX ; Start 03/29/19 at 14:30 Glucose (Glutose) 15 gm Q15M PRN PO DECREASED GLUCOSE; Start 03/29/19 at 14:30 Glucose (Glutose) 22.5 gm Q15M PRN PO DECREASED GLUCOSE; Start 03/29/19 at 14:30 Dextrose (D50w Syringe) 25 ml Q15M PRN IV DECREASED GLUCOSE Last administered on 04/13/19 05:56; Admin Dose 25 ML; Start 03/29/19 at 14:30; Status Hold Dextrose (D50w Syringe) 50 ml Q15M PRN IV DECREASED GLUCOSE; Start 03/29/19 at 14:30 Glucagon (Glucagen) 1 mg Q15M PRN IM DECREASED GLUCOSE; Start 03/29/19 at 14:30 Glucose (Glutose) 15 gm Q15M PRN BUCCAL DECREASED GLUCOSE; Start 03/29/19 at 14:30 Albumin Human 100 ml @ 100 mls/hr WITH DIALYSIS PRN IV SBP <90 DURING DIALYSIS Last administered on 04/15/19at 17:39; Admin Dose 100 MLS/HR; Start 03/29/19 at 17:00 Albuterol/ Ipratropium (Duoneb) 3 ml Q2H RESP THERAPY PRN HHN WHEEZING AND RESP DISTRESS Last administered on 04/09/19at 08:52; Admin Dose 3 ML; Start 03/29/19 at 18:00 Lorazepam (Ativan) 0.5 mg Q4H PRN IV AGITATION Last administered on 04/16/19at 15:45; Admin Dose 0.5 MG; Start 03/29/19 at 18:00 IV Flush (NS 10 ml) 10 ml Q8 PRN IV IV PROTOCOL; Start 03/29/19 at 18:00 Labetalol HCl (Labetalol) 10 mg Q4H PRN IV sbp >160; Start 03/30/19 at 09:00 Haloperidol (Haldol) 5 mg Q6H PRN IM agitation Last administered on 03/31/19at 00:10; Admin Dose 5 MG; Start 03/30/19 at 10:00 Heparin Sodium (Porcine) (Heparin (1000 Units/ml)) 3,200 unit AFTER DIALYSIS CATHETER Last administered on 04/17/19at 14:31; Admin Dose 3,200 UNIT; Start 03/30/19 at 17:00 Atorvastatin Calcium (Lipitor) 40 mg HS NGT Last administered on 04/17/19at 21:44; Admin Dose 40 MG; Start 03/31/19 at 21:00 Baclofen (Lioresal) 10 mg BID GTB Last administered on 04/18/19 08:38; Admin Dose 10 MG; Start 03/31/19 at 21:00 Doxazosin Mesylate (Cardura) 2 mg DAILY NGT Last administered on 04/18/19 08:38; Admin Dose 2 MG; Start 03/31/19 at 14:30 Gabapentin (Neurontin) 100 mg QHS PO Last administered on 04/17/19 21:44; Admin Dose 100 MG; Start 03/31/19 at 21:00 Acetaminophen (Tylenol Liquid) 650 mg Q4H PRN PEG MILD PAIN(1-3)OR ELEVATED TEMP Last administered on 04/16/19 08:42; Admin Dose 650 MG; Start 03/31/19 at 16:00 Lactobacillus Acidophilus/ Rhamnosus (Culturelle) 1 cap TID GTB Last administered on 04/18/19 13:12; Admin Dose 1 CAP; Start 04/02/19 at 13:00 Epoetin [place]-epbx (Retacrit (Esrd)) 10,000 unit MoWeFr@1700 SC Last administered on 04/17/19 18:12; Admin Dose 10,000 UNIT; Start 04/03/19 at 19:30 Lansoprazole (Prevacid) 30 mg BID@0600,1800 GTB Last administered on 04/18/19 05:06; Admin Dose 30 MG; Start 04/04/19 at 18:00 Multivit/Ca Carb/ B Cmplx/FA/Prenat (Karena-Geovanni) 1 tab DAILY GTB Last administered on 04/18/19 08:38; Admin Dose 1 TAB; Start 04/04/19 at 11:30 Aspirin (Aspirin) 81 mg DAILY PO Last administered on 04/11/19 08:46; Admin Dose 81 MG; Start 04/05/19 at 09:00; Status Hold Fentanyl 100 ml @ 2.5 mls/hr TITRATE IV Last administered on 04/18/19 11:54; Admin Dose 5 MLS/HR; Start 04/08/19 at 00:00 Midazolam HCl 50 ml @ 1 mls/hr TITRATE PRN IV agitation Last administered on 04/18/19 11:54; Admin Dose 2 MLS/HR; Start 04/08/19 at 00:00 Norepinephrine 250 ml @ 1.875 mls/ hr TITRATE IV Last administered on 04/15/19 05:45; Admin Dose 1.875 MLS/HR; Start 04/08/19 at 00:00 Mupirocin (Bactroban) 1 applic BID TOP Last administered on 04/18/19 08:50; Admin Dose 1 APPLIC; Start 04/09/19 at 21:00 Budesonide (Pulmicort (Neb)) 0.5 mg BID RESP THERAPY HHN Last administered on 04/18/19 09:44; Admin Dose 0.5 MG; Start 04/12/19 at 09:00 Amikacin Sulfate (Amikacin Iv Per Pharmacy) AMIKACIN PER PHARMACY NOTE XX ; Start 04/12/19 at 10:30 Metronidazole 100 ml @ 100 mls/hr Q8 IVPB Last administered on 04/18/19 13:13; Admin Dose 100 MLS/HR; Start 04/12/19 at 14:00 Carvedilol (Coreg) 12.5 mg BID NGT Last administered on 04/18/19 08:38; Admin Dose 12.5 MG; Start 04/12/19 at 21:00 Amikacin Sulfate 300 mg/Sodium Chloride 101.2 ml @ 101.2 mls/ hr AFTER DIALYSIS IVPB Last administered on 04/17/19 14:43; Admin Dose 101.2 MLS/HR; Start 04/13/19 at 09:00 Dextrose 1,000 ml @ 50 mls/hr Q20H IV Last administered on 04/13/19 09:08; Admin Dose 75 MLS/HR; Start 04/13/19 at 09:00; Status Hold Insulin Aspart (Novolog Insulin Pen) NOVOLOG *MILD* ALGORI... Q4 SC Last administered on 04/17/19 09:02; Admin Dose 3 UNIT; Start 04/13/19 at 09:00 Clopidogrel Bisulfate (plaVIX) 75 mg DAILY GTB Last administered on 04/18/19 08:38; Admin Dose 75 MG; Start 04/16/19 at 09:00 Quetiapine Fumarate (Seroquel) 50 mg QHS GTB Last administered on 04/17/19 21:43; Admin Dose 50 MG; Start 04/16/19 at 21:00 Losartan Potassium (Cozaar) 25 mg DAILY PO Last administered on 04/18/19 08:38; Admin Dose 25 MG; Start 04/17/19 at 09:00 Alteplase, Recombinant (Cathflo (Activase)) 2 mg MAY REPEAT X1 PRN CATHETER IF CATHETER REMAINS OCCULUDED Last administered on 04/17/19 11:21; Admin Dose 2 MG; Start 04/17/19 at 09:30 Insulin Glargine (Lantus) 10 units DAILY@0800 SC Last administered on 04/18/19 08:50; Admin Dose 10 UNITS; Start 04/17/19 at 11:00 Metoclopramide HCl (Reglan) 10 mg Q6 IV Last administered on 04/18/19 13:12; Admin Dose 10 MG; Start 04/17/19 at 18:00 Albuterol (Ventolin Hfa) 4 puff Q6H RESP THERAPY INH Last administered on 04/18/19 09:44; Admin Dose 4 PUFF; Start 04/18/19 at 02:00 Ipratropium [place] (Atrovent Hfa) 4 puff Q6H RESP THERAPY INH Last administered on 04/18/19 09:44; Admin Dose 4 PUFF; Start 04/18/19 at 02:00 BETZAIDA YAÑEZ MD Apr 18, 2019 13:25
--- NOTE | 2019-04-18 13:42 | CONS ---
Assessment/Plan Assessment/Plan Hospital Course (Demo Recall) No acute changes overnight patient is intubated in no distress afebrile WBC today 10.3 platelets 285 neutrophils 75 MRI of the brain 04/16 revealed acute ischemic small vessel left thalamic infarct. 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 Head atraumatic normocephalic neck is supple chest rise symmetrical breath sounds diminished bases. Heart: S1-S2. Abdomen soft bowel sounds present. Extremities without cyanosis Assessment: 1. S/p sepsis 2. Acute respiratory failure, possibly aspirated 3. MRSA nares colonization 4. Encephalopathy, acute on chronic CVA 5. End-stage renal disease, hemodialysis dependent 6. Dysphagia 7. Chronic sinusitis and bilateral mastoiditis Plan: Remains hemodynamically stable, completing antibiotics, continue vent management per pulmonary, may need tracheostomy Consultation Date/Type/Reason Admit Date/Time Mar 29, 2019 at 13:16 Initial Consult Date 04/07/19 Type of Consult id Requesting Provider: LILLIAN ZHANG MD Date/Time of Note DATE: 04/18/19 TIME: 13:40 Exam/Review of Systems Exam Vitals Vital Signs Date Temp Pulse Resp B/P (MAP) Pulse Ox O2 O2 Flow FiO2 Time Delivery Rate 04/18/19 82 16 160/68 98 13:15 (98) 04/18/19 Mechanical 13:00 Ventilator 04/18/19 98.6 12:00 04/18/19 50 11:32 04/17/19 6.0 18:00 Intake and Output 04/17/19 04/17/19 04/18/19 1515:00 23:00 07:00 IntakeIntake Total 158.5 ml 497.66 ml 295.5 ml OutputOutput Total 3600 ml 35 ml 10 ml BalanceBalance -3441.5 ml 462.66 ml 285.5 ml Results Result Diagram: 04/18/19 0430 04/18/19 0430 Results 24hrs Laboratory Tests Test 04/17/19 16:59 04/17/19 20:10 04/17/19 21:46 04/18/19 00:44 Bedside Glucose 113 118 116 Blood Gas Blood arterial Specimen Source Arterial Blood 04/17/2019 8:00: Date Drawn 24 PM Arterial Blood 7.498 H pH (Temp corrected ) Arterial Blood 34.5 L pCO2 (Temp correct) Arterial Blood 111.6 H pO2 (Temp corrected ) Arterial Blood 26.2 H HCO3 Arterial Blood 3.1 H Base Excess Arterial Blood 98.3 H Oxygen Saturati on Santino Test N/A Arterial Blood LB Gas Puncture Site Arterial 0.1 Blood Carboxyhe moglobin Arterial Blood 0.4 Methemoglobin Blood Gas A-a 566.9 H O2 Differential Oxyhemoglobin 97.8 Percent Blood Gas 37.0 Temperature Blood Gas 16.0 Respiration Rate Blood Gas 29 Actual Respiration Rat e Blood Gas VENT - AC Modality FiO2 100.0 Blood Gas Tidal 500.0 Volume Blood Gas Low 5.0 PEEP Setting Blood Gas MA Notified Whom Blood Gas 04/17/2019 8:23: Notified Time 16 PM Test 04/18/19 04:30 04/18/19 05:08 04/18/19 05:32 04/18/19 07:00 White Blood 10.3 # Count Red Blood Count 3.16 L Hemoglobin 9.0 L Hematocrit 28.6 L Mean 90.5 Corpuscular Volume Mean 28.5 L Corpuscular Hemoglobin Mean 31.5 L Corpuscular Hemoglobin Conc ent Red Cell 17.0 H Distribution Width Platelet Count 285 Mean Platelet 10.3 Volume Immature 1.300 H Granulocytes % Neutrophils % 75.0 Lymphocytes % 14.1 L Monocytes % 5.9 Eosinophils % 3.0 Basophils % 0.7 Nucleated Red 0.0 Blood Cells % Immature 0.130 H Granulocytes # Neutrophils # 7.8 H Lymphocytes # 1.5 Monocytes # 0.6 Eosinophils # 0.3 Basophils # 0.1 Nucleated Red 0.0 Blood Cells # Sodium Level 141 Potassium Level 3.4 L Chloride Level 106 Carbon Dioxide 26 Level Anion Gap 9 Blood Urea 12 Nitrogen Creatinine 3.53 #H Glucose Level 101 # Calcium Level 9.1 Phosphorus 2.6 Level Magnesium Level 2.0 Albumin 3.1 L Bedside Glucose 97 Lab Scanned BLOOD TRANSFUSI Report ON Blood Gas Blood Specimen arterial Source Arterial Blood 04/18/2019 7:05 Date Drawn :57 AM Arterial Blood 7.432 pH (Temp corrected ) Arterial Blood 41.0 pCO2 (Temp correct) Arterial Blood 88.0 pO2 (Temp corrected ) Arterial Blood 26.7 H HCO3 Arterial Blood 2.3 Base Excess Arterial Blood 96.4 Oxygen Saturati on Santino Test N/A Arterial Blood Right Gas Brachial Puncture Site Arterial 0.3 Blood Carboxyhe moglobin Arterial Blood 0.4 Methemoglobin Blood Gas A-a 222.4 H O2 Differential Oxyhemoglobin 95.7 Percent Blood Gas 37.0 Temperature Blood Gas 16.0 Respiration Rate Blood Gas 18 Actual Respiration Rat e Blood Gas VENT - AC Modality FiO2 50.0 Blood Gas Tidal 500.0 Volume Blood Gas Low 5.0 PEEP Setting Blood Gas TM Notified Whom Blood Gas 04/18/2019 7:16 Notified Time :31 AM Test 04/18/19 08:37 04/18/19 13:12 Bedside Glucose 101 125 Medications Medication Current Medications IV Flush (NS 3 ml) 3 ml PER PROTOCOL IV ; Start 03/29/19 at 13:30 Ondansetron HCl (Zofran Inj) 4 mg Q6H PRN IV NAUSEA/VOMITING Last administered on 04/07/19at 18:53; Admin Dose 4 MG; Start 03/29/19 at 13:30 Acetaminophen (Tylenol Tab) 650 mg Q6H PRN PO .PAIN 1-3 OR TEMP Last administe red on 03/31/19at 05:48; Admin Dose 650 MG; Start 03/29/19 at 13:30 Hydralazine HCl (Apresoline) 10 mg Q4H PRN IV sbp >185 Last administered on 04/17/19at 05:34; Admin Dose 10 MG; Start 03/29/19 at 14:00 Miscellaneous Information 1 ea NOTE XX ; Start 03/29/19 at 14:30 Glucose (Glutose) 15 gm Q15M PRN PO DECREASED GLUCOSE; Start 03/29/19 at 14:30 Glucose (Glutose) 22.5 gm Q15M PRN PO DECREASED GLUCOSE; Start 03/29/19 at 14:30 Dextrose (D50w Syringe) 25 ml Q15M PRN IV DECREASED GLUCOSE Last administered on 04/13/19at 05:56; Admin Dose 25 ML; Start 03/29/19 at 14:30; Status Hold Dextrose (D50w Syringe) 50 ml Q15M PRN IV DECREASED GLUCOSE; Start 03/29/19 at 14:30 Glucagon (Glucagen) 1 mg Q15M PRN IM DECREASED GLUCOSE; Start 03/29/19 at 14:30 Glucose (Glutose) 15 gm Q15M PRN BUCCAL DECREASED GLUCOSE; Start 03/29/19 at 14:30 Albumin Human 100 ml @ 100 mls/hr WITH DIALYSIS PRN IV SBP <90 DURING DIALYSIS Last administered on 04/15/19 17:39; Admin Dose 100 MLS/HR; Start 03/29/19 at 17:00 Albuterol/ Ipratropium (Duoneb) 3 ml Q2H RESP THERAPY PRN HHN WHEEZING AND RESP DISTRESS Last administered on 04/09/19 08:52; Admin Dose 3 ML; Start 03/29/19 at 18:00 Lorazepam (Ativan) 0.5 mg Q4H PRN IV AGITATION Last administered on 04/16/19 15:45; Admin Dose 0.5 MG; Start 03/29/19 at 18:00 IV Flush (NS 10 ml) 10 ml Q8 PRN IV IV PROTOCOL; Start 03/29/19 at 18:00 Labetalol HCl (Labetalol) 10 mg Q4H PRN IV sbp >160; Start 03/30/19 at 09:00 Haloperidol (Haldol) 5 mg Q6H PRN IM agitation Last administered on 03/31/19 00:10; Admin Dose 5 MG; Start 03/30/19 at 10:00 Heparin Sodium (Porcine) (Heparin (1000 Units/ml)) 3,200 unit AFTER DIALYSIS CATHETER Last administered on 04/17/19 14:31; Admin Dose 3,200 UNIT; Start 03/30/19 at 17:00 Atorvastatin Calcium (Lipitor) 40 mg HS NGT Last administered on 04/17/19 21:44; Admin Dose 40 MG; Start 03/31/19 at 21:00 Baclofen (Lioresal) 10 mg BID GTB Last administered on 04/18/19 08:38; Admin Dose 10 MG; Start 03/31/19 at 21:00 Doxazosin Mesylate (Cardura) 2 mg DAILY NGT Last administered on 04/18/19 08:38; Admin Dose 2 MG; Start 03/31/19 at 14:30 Gabapentin (Neurontin) 100 mg QHS PO Last administered on 04/17/19 21:44; Admin Dose 100 MG; Start 03/31/19 at 21:00 Acetaminophen (Tylenol Liquid) 650 mg Q4H PRN PEG MILD PAIN(1-3)OR ELEVATED TEMP Last administered on 04/16/19 08:42; Admin Dose 650 MG; Start 03/31/19 at 16:00 Lactobacillus Acidophilus/ Rhamnosus (Culturelle) 1 cap TID GTB Last administered on 04/18/19 13:12; Admin Dose 1 CAP; Start 04/02/19 at 13:00 Epoetin [place]-epbx (Retacrit (Esrd)) 10,000 unit MoWeFr@1700 SC Last administered on 04/17/19 18:12; Admin Dose 10,000 UNIT; Start 04/03/19 at 19:30 Lansoprazole (Prevacid) 30 mg BID@0600,1800 GTB Last administered on 04/18/19 05:06; Admin Dose 30 MG; Start 04/04/19 at 18:00 Multivit/Ca Carb/ B Cmplx/FA/Prenat (Karena-Geovanni) 1 tab DAILY GTB Last administered on 04/18/19 08:38; Admin Dose 1 TAB; Start 04/04/19 at 11:30 Aspirin (Aspirin) 81 mg DAILY PO Last administered on 04/11/19 08:46; Admin Dose 81 MG; Start 04/05/19 at 09:00; Status Hold Fentanyl 100 ml @ 2.5 mls/hr TITRATE IV Last administered on 04/18/19 11:54; Admin Dose 5 MLS/HR; Start 04/08/19 at 00:00 Midazolam HCl 50 ml @ 1 mls/hr TITRATE PRN IV agitation Last administered on 04/18/19 11:54; Admin Dose 2 MLS/HR; Start 04/08/19 at 00:00 Norepinephrine 250 ml @ 1.875 mls/ hr TITRATE IV Last administered on 04/15/19 05:45; Admin Dose 1.875 MLS/HR; Start 04/08/19 at 00:00 Mupirocin (Bactroban) 1 applic BID TOP Last administered on 04/18/19 08:50; Admin Dose 1 APPLIC; Start 04/09/19 at 21:00 Budesonide (Pulmicort (Neb)) 0.5 mg BID RESP THERAPY HHN Last administered on 04/18/19 09:44; Admin Dose 0.5 MG; Start 04/12/19 at 09:00 Amikacin Sulfate (Amikacin Iv Per Pharmacy) AMIKACIN PER PHARMACY NOTE XX ; Start 04/12/19 at 10:30 Metronidazole 100 ml @ 100 mls/hr Q8 IVPB Last administered on 04/18/19 13:13; Admin Dose 100 MLS/HR; Start 04/12/19 at 14:00 Carvedilol (Coreg) 12.5 mg BID NGT Last administered on 04/18/19 08:38; Admin Dose 12.5 MG; Start 04/12/19 at 21:00 Amikacin Sulfate 300 mg/Sodium Chloride 101.2 ml @ 101.2 mls/ hr AFTER DIALYSIS IVPB Last administered on 04/17/19 14:43; Admin Dose 101.2 MLS/HR; Start 04/13/19 at 09:00 Dextrose 1,000 ml @ 50 mls/hr Q20H IV Last administered on 04/13/19 09:08; Admin Dose 75 MLS/HR; Start 04/13/19 at 09:00; Status Hold Insulin Aspart (Novolog Insulin Pen) NOVOLOG *MILD* ALGORI... Q4 SC Last administered on 04/17/19 09:02; Admin Dose 3 UNIT; Start 04/13/19 at 09:00 Clopidogrel Bisulfate (plaVIX) 75 mg DAILY GTB Last administered on 04/18/19 08:38; Admin Dose 75 MG; Start 04/16/19 at 09:00 Quetiapine Fumarate (Seroquel) 50 mg QHS GTB Last administered on 04/17/19 21:43; Admin Dose 50 MG; Start 04/16/19 at 21:00 Losartan Potassium (Cozaar) 25 mg DAILY PO Last administered on 04/18/19 08:38; Admin Dose 25 MG; Start 04/17/19 at 09:00 Alteplase, Recombinant (Cathflo (Activase)) 2 mg MAY REPEAT X1 PRN CATHETER IF CATHETER REMAINS OCCULUDED Last administered on 04/17/19 11:21; Admin Dose 2 MG; Start 04/17/19 at 09:30 Insulin Glargine (Lantus) 10 units DAILY@0800 SC Last administered on 04/18/19at 08:50; Admin Dose 10 UNITS; Start 04/17/19 at 11:00 Metoclopramide HCl (Reglan) 10 mg Q6 IV Last administered on 04/18/19 13:12; Admin Dose 10 MG; Start 04/17/19 at 18:00 Albuterol (Ventolin Hfa) 4 puff Q6H RESP THERAPY INH Last administered on 04/18/19 09:44; Admin Dose 4 PUFF; Start 04/18/19 at 02:00 Ipratropium [place] (Atrovent Hfa) 4 puff Q6H RESP THERAPY INH Last administered on 04/18/19 09:44; Admin Dose 4 PUFF; Start 04/18/19 at 02:00 UMA COLINDRES NP Apr 18, 2019 13:42
[2019-04-18] MEDS: hydrALAzine 20 MG INJ IV PRN (14:27)
[2019-04-18] MEDS: BALSAM PERU/CASTOR OIL 60 GM TUBE TOP SCH (16:13)
--- NOTE | 2019-04-18 16:24 | PN ---
Date/Time of Note Date/Time of Note DATE: 04/18/19 TIME: 16:21 Assessment/Plan VTE Prophylaxis Risk score (from Ns)>0 risk: 7 SCD applied (from Ns): Yes Pharmacological prophylaxis: heparin Lines/Catheters IV Catheter Type (from Rust): Permacath Urinary Cath still in place: Yes Reason Cath still needed: other (indicate) Assessment/Plan Assessment/Plan Assessment: Severe anemia -EGD 04/03/2019 Moderate distal esophagitis. Gastrostomy tube in place. Gastritis -biopsies are negative for H. pylori. Duodenitis. Colonoscopy 04/03/2019 8 sessile polyp in the cecum. Snared and retrieved. -Tubular adenoma 6 mm sessile polyp ascending colon. Snared and retrieved. -Tubular adenoma 6 mm sessile polyp sigmoid. Snared and retrieved. -Tubular adenoma 20 mm sessile polyp sigmoid. Saline assisted lipectomy plus localization tattoo. Moderate-sized internal hemorrhoids. 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 -Replaced with 18 [place] gastrostomy tube Coronary artery disease status post CABG history Epilepsy BPH Query aspiration PNA Plan: Continue G-tube feeding Continue Reglan 10mg IV q6hr GI will sign off at this time Patient seen in collaboration with Dr. Sanders Subjective: Course reviewed with nursing staff Patient interviewed and examined All labs, imaging and other results reviewed Patient is tolerating G-tube feeding well on Reglan. Current rate is 40 cc/h with no residuals. No evidence of overt GI bleeding. With no further recommendations GI will sign off and will be available to reconsult upon request. PHYSICAL EXAMINATION: GENERAL: Well developed, well nourished, intubated and sedated SKIN: No lesions, g-tube in place NECK: Supple, no masses, thyroid normal CHEST: Inspection within normal limits. CARDIOVASCULAR: Heart: Regular rate and rhythm RESPIRATORY: Lungs clear to auscultation. GASTROINTESTINAL AND LIVER: Abdomen: Soft, G-tube in place, non-distended, no organomegaly, no ascites, no guarding, no rebound tenderness, normoactive bowel sounds. Rectal: Rectal tube in place GENITOURINARY: Male genitalia within normal limits. EXTREMITIES: No cyanosis, clubbing or edema. Result Diagram: 04/18/19 0430 04/18/19 0430 Results 24hrs Laboratory Tests Test 04/17/19 16:59 04/17/19 20:10 04/17/19 21:46 04/18/19 00:44 Bedside Glucose 113 118 116 Blood Gas Blood arterial Specimen Source Arterial Blood 04/17/2019 8:00: Date Drawn 24 PM Arterial Blood 7.498 H pH (Temp corrected ) Arterial Blood 34.5 L pCO2 (Temp correct) Arterial Blood 111.6 H pO2 (Temp corrected ) Arterial Blood 26.2 H HCO3 Arterial Blood 3.1 H Base Excess Arterial Blood 98.3 H Oxygen Saturati on Santino Test N/A Arterial Blood LB Gas Puncture Site Arterial 0.1 Blood Carboxyhe moglobin Arterial Blood 0.4 Methemoglobin Blood Gas A-a 566.9 H O2 Differential Oxyhemoglobin 97.8 Percent Blood Gas 37.0 Temperature Blood Gas 16.0 Respiration Rate Blood Gas 29 Actual Respiration Rat e Blood Gas VENT - AC Modality FiO2 100.0 Blood Gas Tidal 500.0 Volume Blood Gas Low 5.0 PEEP Setting Blood Gas MA Notified Whom Blood Gas 04/17/2019 8:23: Notified Time 16 PM Test 04/18/19 04:30 04/18/19 05:08 04/18/19 05:32 04/18/19 07:00 White Blood 10.3 # Count Red Blood Count 3.16 L Hemoglobin 9.0 L Hematocrit 28.6 L Mean 90.5 Corpuscular Volume Mean 28.5 L Corpuscular Hemoglobin Mean 31.5 L Corpuscular Hemoglobin Conc ent Red Cell 17.0 H Distribution Width Platelet Count 285 Mean Platelet 10.3 Volume Immature 1.300 H Granulocytes % Neutrophils % 75.0 Lymphocytes % 14.1 L Monocytes % 5.9 Eosinophils % 3.0 Basophils % 0.7 Nucleated Red 0.0 Blood Cells % Immature 0.130 H Granulocytes # Neutrophils # 7.8 H Lymphocytes # 1.5 Monocytes # 0.6 Eosinophils # 0.3 Basophils # 0.1 Nucleated Red 0.0 Blood Cells # Sodium Level 141 Potassium Level 3.4 L Chloride Level 106 Carbon Dioxide 26 Level Anion Gap 9 Blood Urea 12 Nitrogen Creatinine 3.53 #H Glucose Level 101 # Calcium Level 9.1 Phosphorus 2.6 Level Magnesium Level 2.0 Albumin 3.1 L Bedside Glucose 97 Lab Scanned BLOOD TRANSFUSI Report ON Blood Gas Blood Specimen arterial Source Arterial Blood 04/18/2019 7:05 Date Drawn :57 AM Arterial Blood 7.432 pH (Temp corrected ) Arterial Blood 41.0 pCO2 (Temp correct) Arterial Blood 88.0 pO2 (Temp corrected ) Arterial Blood 26.7 H HCO3 Arterial Blood 2.3 Base Excess Arterial Blood 96.4 Oxygen Saturati on Santino Test N/A Arterial Blood Right Gas Brachial Puncture Site Arterial 0.3 Blood Carboxyhe moglobin Arterial Blood 0.4 Methemoglobin Blood Gas A-a 222.4 H O2 Differential Oxyhemoglobin 95.7 Percent Blood Gas 37.0 Temperature Blood Gas 16.0 Respiration Rate Blood Gas 18 Actual Respiration Rat e Blood Gas VENT - AC Modality FiO2 50.0 Blood Gas Tidal 500.0 Volume Blood Gas Low 5.0 PEEP Setting Blood Gas TM Notified Whom Blood Gas 04/18/2019 7:16 Notified Time :31 AM Test 04/18/19 08:37 04/18/19 13:12 Bedside Glucose 101 125 CC: TREMAINE SANDERS MD ; Exam/Review of Systems Exam Vitals Vital Signs Date Temp Pulse Resp B/P (MAP) Pulse Ox O2 O2 Flow FiO2 Time Delivery Rate 04/18/19 97.9 92 145/60 98 Mechanical 16:00 (88) Ventilator 04/18/19 16 50 15:34 04/17/19 6.0 18:00 Intake and Output 04/17/19 04/17/19 04/18/19 1515:00 23:00 07:00 IntakeIntake Total 158.5 ml 497.66 ml 295.5 ml OutputOutput Total 3600 ml 35 ml 10 ml BalanceBalance -3441.5 ml 462.66 ml 285.5 ml Results Results 24hrs Laboratory Tests Test 04/17/19 16:59 04/17/19 20:10 04/17/19 21:46 04/18/19 00:44 Bedside Glucose 113 118 116 Blood Gas Blood arterial Specimen Source Arterial Blood 04/17/2019 8:00: Date Drawn 24 PM Arterial Blood 7.498 H pH (Temp corrected ) Arterial Blood 34.5 L pCO2 (Temp correct) Arterial Blood 111.6 H pO2 (Temp corrected ) Arterial Blood 26.2 H HCO3 Arterial Blood 3.1 H Base Excess Arterial Blood 98.3 H Oxygen Saturati on Santino Test N/A Arterial Blood LB Gas Puncture Site Arterial 0.1 Blood Carboxyhe moglobin Arterial Blood 0.4 Methemoglobin Blood Gas A-a 566.9 H O2 Differential Oxyhemoglobin 97.8 Percent Blood Gas 37.0 Temperature Blood Gas 16.0 Respiration Rate Blood Gas 29 Actual Respiration Rat e Blood Gas VENT - AC Modality FiO2 100.0 Blood Gas Tidal 500.0 Volume Blood Gas Low 5.0 PEEP Setting Blood Gas [place] Notified Whom Blood Gas 04/17/2019 8:23: Notified Time 16 PM Test 04/18/19 04:30 04/18/19 05:08 04/18/19 05:32 04/18/19 07:00 White Blood 10.3 # Count Red Blood Count 3.16 L Hemoglobin 9.0 L Hematocrit 28.6 L Mean 90.5 Corpuscular Volume Mean 28.5 L Corpuscular Hemoglobin Mean 31.5 L Corpuscular Hemoglobin Conc ent Red Cell 17.0 H Distribution Width Platelet Count 285 Mean Platelet 10.3 Volume Immature 1.300 H Granulocytes % Neutrophils % 75.0 Lymphocytes % 14.1 L Monocytes % 5.9 Eosinophils % 3.0 Basophils % 0.7 Nucleated Red 0.0 Blood Cells % Immature 0.130 H Granulocytes # Neutrophils # 7.8 H Lymphocytes # 1.5 Monocytes # 0.6 Eosinophils # 0.3 Basophils # 0.1 Nucleated Red 0.0 Blood Cells # Sodium Level 141 Potassium Level 3.4 L Chloride Level 106 Carbon Dioxide 26 Level Anion Gap 9 Blood Urea 12 Nitrogen Creatinine 3.53 #H Glucose Level 101 # Calcium Level 9.1 Phosphorus 2.6 Level Magnesium Level 2.0 Albumin 3.1 L Bedside Glucose 97 Lab Scanned BLOOD TRANSFUSI Report ON Blood Gas Blood Specimen arterial Source Arterial Blood 04/18/2019 7:05 Date Drawn :57 AM Arterial Blood 7.432 pH (Temp corrected ) Arterial Blood 41.0 pCO2 (Temp correct) Arterial Blood 88.0 pO2 (Temp corrected ) Arterial Blood 26.7 H HCO3 Arterial Blood 2.3 Base Excess Arterial Blood 96.4 Oxygen Saturati on Santino Test N/A Arterial Blood Right Gas Brachial Puncture Site Arterial 0.3 Blood Carboxyhe moglobin Arterial Blood 0.4 Methemoglobin Blood Gas A-a 222.4 H O2 Differential Oxyhemoglobin 95.7 Percent Blood Gas 37.0 Temperature Blood Gas 16.0 Respiration Rate Blood Gas 18 Actual Respiration Rat e Blood Gas VENT - AC Modality FiO2 50.0 Blood Gas Tidal 500.0 Volume Blood Gas Low 5.0 PEEP Setting Blood Gas TM Notified Whom Blood Gas 04/18/2019 7:16 Notified Time :31 AM Test 04/18/19 08:37 04/18/19 13:12 Bedside Glucose 101 125 Medications Medication Current Medications IV Flush (NS 3 ml) 3 ml PER PROTOCOL IV ; Start 03/29/19 at 13:30 Ondansetron HCl (Zofran Inj) 4 mg Q6H PRN IV NAUSEA/VOMITING Last administered on 04/07/19at 18:53; Admin Dose 4 MG; Start 03/29/19 at 13:30 Acetaminophen (Tylenol Tab) 650 mg Q6H PRN PO .PAIN 1-3 OR TEMP Last administered on 03/31/19at 05:48; Admin Dose 650 MG; Start 03/29/19 at 13:30 Hydralazine HCl (Apresoline) 10 mg Q4H PRN IV sbp >185 Last administered on 04/18/19at 14:27; Admin Dose 10 MG; Start 03/29/19 at 14:00 Miscellaneous Information 1 ea NOTE XX ; Start 03/29/19 at 14:30 Glucose (Glutose) 15 gm Q15M PRN PO DECREASED GLUCOSE; Start 03/29/19 at 14:30 Glucose (Glutose) 22.5 gm Q15M PRN PO DECREASED GLUCOSE; Start 03/29/19 at 14:30 Dextrose (D50w Syringe) 25 ml Q15M PRN IV DECREASED GLUCOSE Last administered on 04/13/19at 05:56; Admin Dose 25 ML; Start 03/29/19 at 14:30; Status Hold Dextrose (D50w Syringe) 50 ml Q15M PRN IV DECREASED GLUCOSE; Start 03/29/19 at 14:30 Glucagon (Glucagen) 1 mg Q15M PRN IM DECREASED GLUCOSE; Start 03/29/19 at 14:30 Glucose (Glutose) 15 gm Q15M PRN BUCCAL DECREASED GLUCOSE; Start 03/29/19 at 14:30 Albumin Human 100 ml @ 100 mls/hr WITH DIALYSIS PRN IV SBP <90 DURING DIALYSIS Last administered on 04/15/19at 17:39; Admin Dose 100 MLS/HR; Start 03/29/19 at 17:00 Albuterol/ Ipratropium (Duoneb) 3 ml Q2H RESP THERAPY PRN HHN WHEEZING AND RESP DISTRESS Last administered on 04/09/19 08:52; Admin Dose 3 ML; Start 03/29/19 at 18:00 Lorazepam (Ativan) 0.5 mg Q4H PRN IV AGITATION Last administered on 04/16/19 15:45; Admin Dose 0.5 MG; Start 03/29/19 at 18:00 IV Flush (NS 10 ml) 10 ml Q8 PRN IV IV PROTOCOL; Start 03/29/19 at 18:00 Labetalol HCl (Labetalol) 10 mg Q4H PRN IV sbp >160; Start 03/30/19 at 09:00 Haloperidol (Haldol) 5 mg Q6H PRN IM agitation Last administered on 03/31/19 00:10; Admin Dose 5 MG; Start 03/30/19 at 10:00 Heparin Sodium (Porcine) (Heparin (1000 Units/ml)) 3,200 unit AFTER DIALYSIS CATHETER Last administered on 04/17/19 14:31; Admin Dose 3,200 UNIT; Start 03/30/19 at 17:00 Atorvastatin Calcium (Lipitor) 40 mg HS NGT Last administered on 04/17/19 21:44; Admin Dose 40 MG; Start 03/31/19 at 21:00 Baclofen (Lioresal) 10 mg BID GTB Last administered on 04/18/19 08:38; Admin Dose 10 MG; Start 03/31/19 at 21:00 Doxazosin Mesylate (Cardura) 2 mg DAILY NGT Last administered on 04/18/19 08:38; Admin Dose 2 MG; Start 03/31/19 at 14:30 Gabapentin (Neurontin) 100 mg QHS PO Last administered on 04/17/19 21:44; Ad min Dose 100 MG; Start 03/31/19 at 21:00 Acetaminophen (Tylenol Liquid) 650 mg Q4H PRN PEG MILD PAIN(1-3)OR ELEVATED TEMP Last administered on 04/16/19 08:42; Admin Dose 650 MG; Start 03/31/19 at 16:00 Lactobacillus Acidophilus/ Rhamnosus (Culturelle) 1 cap TID GTB Last administered on 04/18/19 13:12; Admin Dose 1 CAP; Start 04/02/19 at 13:00 Epoetin [place]-epbx (Retacrit (Esrd)) 10,000 unit MoWeFr@1700 SC Last administered on 04/17/19 18:12; Admin Dose 10,000 UNIT; Start 04/03/19 at 19:30 Lansoprazole (Prevacid) 30 mg BID@0600,1800 GTB Last administered on 04/18/19 05:06; Admin Dose 30 MG; Start 04/04/19 at 18:00 Multivit/Ca Carb/ B Cmplx/FA/Prenat (Karena-Geovanni) 1 tab DAILY GTB Last adm inistered on 04/18/19 08:38; Admin Dose 1 TAB; Start 04/04/19 at 11:30 Aspirin (Aspirin) 81 mg DAILY PO Last administered on 04/11/19 08:46; Admin Dose 81 MG; Start 04/05/19 at 09:00; Status Hold Fentanyl 100 ml @ 2.5 mls/hr TITRATE IV Last administered on 04/18/19 11:54; Admin Dose 5 MLS/HR; Start 04/08/19 at 00:00 Midazolam HCl 50 ml @ 1 mls/hr TITRATE PRN IV agitation Last administered on 04/18/19 11:54; Admin Dose 2 MLS/HR; Start 04/08/19 at 00:00 Norepinephrine 250 ml @ 1.875 mls/ hr TITRATE IV Last administered on 04/15/19 05:45; Admin Dose 1.875 MLS/HR; Start 04/08/19 at 00:00 Mupirocin (Bactroban) 1 applic BID TOP Last administered on 04/18/19 08:50; Admin Dose 1 APPLIC; Start 04/09/19 at 21:00 Budesonide (Pulmicort (Neb)) 0.5 mg BID RESP THERAPY HHN Last administered on 04/18/19 09:44; Admin Dose 0.5 MG; Start 04/12/19 at 09:00 Amikacin Sulfate (Amikacin Iv Per Pharmacy) AMIKACIN PER PHARMACY NOTE XX ; Start 04/12/19 at 10:30 Metronidazole 100 ml @ 100 mls/hr Q8 IVPB Last administered on 04/18/19 13:13; Admin Dose 100 MLS/HR; Start 04/12/19 at 14:00 Carvedilol (Coreg) 12.5 mg BID NGT Last administered on 04/18/19 08:38; Admin Dose 12.5 MG; Start 04/12/19 at 21:00 Amikacin Sulfate 300 mg/Sodium Chloride 101.2 ml @ 101.2 mls/ hr AFTER DIALYSIS IVPB Last administered on 04/17/19 14:43; Admin Dose 101.2 MLS/HR; Start 04/13/19 at 09:00 Dextrose 1,000 ml @ 50 mls/hr Q20H IV Last administered on 04/13/19 09:08; Admin Dose 75 MLS/HR; Start 04/13/19 at 09:00; Status Hold Insulin Aspart (Novolog Insulin Pen) NOVOLOG *MILD* ALGORI... Q4 SC Last administered on 04/17/19 09:02; Admin Dose 3 UNIT; Start 04/13/19 at 09:00 Clopidogrel Bisulfate (plaVIX) 75 mg DAILY GTB Last administered on 04/18/19 08:38; Admin Dose 75 MG; Start 04/16/19 at 09:00 Quetiapine Fumarate (Seroquel) 50 mg QHS GTB Last administered on 04/17/19 21:43; Admin Dose 50 MG; Start 04/16/19 at 21:00 Losartan Potassium (Cozaar) 25 mg DAILY PO Last administered on 04/18/19 08:38; Admin Dose 25 MG; Start 04/17/19 at 09:00 Alteplase, Recombinant (Cathflo (Activase)) 2 mg MAY REPEAT X1 PRN CATHETER IF CATHETER REMAINS OCCULUDED Last administered on 04/17/19 11:21; Admin Dose 2 MG; Start 04/17/19 at 09:30 Insulin Glargine (Lantus) 10 units DAILY@0800 SC Last administered on 04/18/19 08:50; Admin Dose 10 UNITS; Start 04/17/19 at 11:00 Metoclopramide HCl (Reglan) 10 mg Q6 IV Last administered on 04/18/19 13:12; Admin Dose 10 MG; Start 04/17/19 at 18:00 Albuterol (Ventolin Hfa) 4 puff Q6H RESP THERAPY INH Last administered on 04/18/19 14:43; Admin Dose 4 PUFF; Start 04/18/19 at 02:00 Ipratropium [place] (Atrovent Hfa) 4 puff Q6H RESP THERAPY INH Last administered on 04/18/19 14:43; Admin Dose 4 PUFF; Start 04/18/19 at 02:00 MIGUEL MAYO NP Apr 18, 2019 16:23
[2019-04-18] MEDS: QUETIAPINE 25 MG TAB GTB SCH (20:55)
[2019-04-18] MEDS: ATORVASTATIN 40 MG TAB NGT SCH (20:55)
[2019-04-18] MEDS: GABAPENTIN 100 MG CAP PO SCH (20:55)
[2019-04-18] MEDS: NORepinephrine 8MG/250 ML (PMX 250 ML IV SCH (21:28)
[2019-04-19] VITALS (49 sets, daily range): BP systolic 92–189; BP diastolic 47–129; PULSE 62–99; RESP 0–25
[2019-04-19] MEDS: METOCLOPRAMIDE 10 MG INJ IV SCH ×4 (00:42→17:33)
[2019-04-19] MEDS: INSULIN ASPART [NOVOLOG] 3 ML PEN SC SCH ×6 (00:48→20:35)
[2019-04-19] MEDS: MIDAZOLAM (DRIP) 50 mg/50 mL 50 ML IV PRN ×2 (01:47→19:34)
[2019-04-19] MEDS: IPRATROPIUM (HFA) 12.9 GM INHALER INH SCH ×4 (01:57→20:48)
[2019-04-19] MEDS: ALBUTEROL HFA 8 GM INHALER INH SCH ×4 (01:57→20:48)
[2019-04-19] MEDS: LANSOPRAZOLE 30 MG CAP GTB SCH ×2 (05:28→17:33)
[2019-04-19] MEDS: metroNIDAZOLE 500 MG/NS (PMX) 100 ML IVPB SCH ×3 (05:28→22:44)
[2019-04-19] MEDS: LACTOBACILLUS RHAMNOSUS CAP GTB SCH ×4 (09:00→20:31)
[2019-04-19] MEDS: BUDESONIDE (NEB) 0.5MG/2ML AMP HHN SCH ×2 (09:29→20:48)
[2019-04-19] MEDS: ASPIRIN 81 MG TAB PO SCH (09:48)
[2019-04-19] MEDS: MULTIVIT/CA CARB/B CMPLX/FA TAB GTB SCH (09:48)
[2019-04-19] MEDS: INSULIN GLARGINE [LANTus] (100 UNITS/ML) SYG SC SCH (09:48)
--- NOTE | 2019-04-19 09:48 | PN ---
Date/Time of Note Date/Time of Note DATE: 04/19/19 TIME: 09:42 Assessment/Plan VTE Prophylaxis Risk score (from Nsg)>0 risk: 8 SCD applied (from Nsg): Yes Pharmacological prophylaxis: other Lines/Catheters IV Catheter Type (from Nrsg): PER A CATH Urinary Cath still in place: Yes Reason Cath still needed: terminal illness/intractable pain Assessment/Plan Assessment/Plan 1. Acute hypoxic respiratory failure - patient remains intubated and discussed with Pulm that family will need to make a decision regarding trach placement before Monday. Per SW, been touching base with who has been discussing patients wishes with her son. Family is still divided in terms of goals of care - patient was extubated 04/17 and needed to be reintubated a few hours later due to desaturation and inability to clear his secretions - pulmonology consultation appreciated 2. Acute left thalamic stroke - Neuro on board and appreciate consultation - Carotid US noted with stenosis <70%. Will continue plavix at this time given patient not stable for any type of intervention but will need to be assessed for CEA in the future 3. HCAP/Aspiration Pneumonia- resolving - CXR with no signs of PNA - Pulm on board and appreciate recommendations - ID on board for antibiotic management 4. Acute on chronic encephalopathy - Neurology consultation appreciated. 5. Anemia - stable - Hgb stable - GI consultation appreciated and EGD revealed moderate distal esophagitis and gastritis and duodenitis. Colonoscopy showed internal hemorrhoids. Will need repeat colonoscopy in the future 6. End-stage renal disease on hemodialysis - Nephrology on board and appreciate consultation. Continue HD 7. Coronary artery disease status post CABG history - continue home medications - continue on Plavix and aspirin 8. Epilepsy - Continue Keppra - EEG noted with slowing 9. History of CVA with residual left-sided deficit and more recent CVA - New left thalamic stroke appreciated on repeat MRI. - Neurology consultation appreciated 10. BPH 11. Septic shock, intermittent- resolved - off pressor support - Most likely secondary to aspiration pneumonia - ID on board and appreciate recommendations. continue on current IV antibiotics 12. Disposition - Continue monitoring in ICU for ventilator management. Family will need to make a decision regarding trach placement over the weekend >35 minutes of critical care time spent with patient Result Diagram: 04/19/19 0418 04/19/19 0415 Results 24hrs Laboratory Tests Test 04/18/19 13:12 04/18/19 17:08 04/18/19 21:08 04/19/19 00:41 Bedside Glucose 125 124 138 172 Test 04/19/19 04:15 04/19/19 04:18 04/19/19 05:27 04/19/19 08:09 Sodium Level 140 Potassium Level 3.4 L Chloride Level 104 Carbon Dioxide Level 27 Anion Gap 9 Blood Urea Nitrogen 20 Creatinine 4.88 #H Glucose Level 140 Calcium Level 9.5 Phosphorus Level 3.3 Magnesium Level 2.1 Albumin 3.0 L White Blood Count 9.7 Red Blood Count 3.06 L Hemoglobin 8.7 L Hematocrit 28.2 L Mean Corpuscular 92.2 Volume Mean Corpuscular 28.4 L Hemoglobin Mean Corpuscular 30.9 L Hemoglobin Concent Red Cell 17.2 H Distribution Width Platelet Count 293 Mean Platelet Volume 10.3 Immature 0.900 H Granulocytes % Neutrophils % 77.2 H Lymphocytes % 11.1 L Monocytes % 6.1 Eosinophils % 4.0 Basophils % 0.7 Nucleated Red Blood 0.0 Cells % Immature 0.090 H Granulocytes # Neutrophils # 7.5 Lymphocytes # 1.1 Monocytes # 0.6 Eosinophils # 0.4 Basophils # 0.1 Nucleated Red Blood 0.0 Cells # Bedside Glucose 141 159 Subjective 24 Hr Interval Summary Free Text/Dictation Patient remains intubated and calm this am. No acute overnight events. Exam/Review of Systems Exam Vitals Vital Signs Date Temp Pulse Resp B/P (MAP) Pulse Ox O2 O2 Flow FiO2 Time Delivery Rate 04/19/19 66 16 113/51 97 Mechanical 09:00 (71) Ventilator 04/19/19 98.1 08:00 04/19/19 45 05:32 04/17/19 6.0 18:00 Intake and Output 04/18/19 04/18/19 04/19/19 1515:00 23:00 07:00 IntakeIntake Total 487 ml 513.5 ml 441.5 ml OutputOutput Total 0 ml 30 ml 10 ml BalanceBalance 487 ml 483.5 ml 431.5 ml Exam General: Patient is intubated. opens eyes to touch and voice Head: Normocephalic atraumatic Eyes: EOMI, pupils reactive to light Neck: Supple, nontender, midline Respiratory: Clear to auscultation bilaterally. diminished at bases. no wheezing appreciated Cardiovascular: regular rate and rhythm, no obvious murmurs Gastrointestinal: soft, non-tender to palpation, nondistended, bowel sounds heard. Ext: moving RUE. no cyanosis, clubbing or edema Skin: No new skin lesions Results Results 24hrs Laboratory Tests Test 04/18/19 13:12 04/18/19 17:08 04/18/19 21:08 04/19/19 00:41 Bedside Glucose 125 124 138 172 Test 04/19/19 04:15 04/19/19 04:18 04/19/19 05:27 04/19/19 08:09 Sodium Level 140 Potassium Level 3.4 L Chloride Level 104 Carbon Dioxide Level 27 Anion Gap 9 Blood Urea Nitrogen 20 Creatinine 4.88 #H Glucose Level 140 Calcium Level 9.5 Phosphorus Level 3.3 Magnesium Level 2.1 Albumin 3.0 L White Blood Count 9.7 Red Blood Count 3.06 L Hemoglobin 8.7 L Hematocrit 28.2 L Mean Corpuscular 92.2 Volume Mean Corpuscular 28.4 L Hemoglobin Mean Corpuscular 30.9 L Hemoglobin Concent Red Cell 17.2 H Distribution Width Platelet Count 293 Mean Platelet Volume 10.3 Immature 0.900 H Granulocytes % Neutrophils % 77.2 H Lymphocytes % 11.1 L Monocytes % 6.1 Eosinophils % 4.0 Basophils % 0.7 Nucleated Red Blood 0.0 Cells % Immature 0.090 H Granulocytes # Neutrophils # 7.5 Lymphocytes # 1.1 Monocytes # 0.6 Eosinophils # 0.4 Basophils # 0.1 Nucleated Red Blood 0.0 Cells # Bedside Glucose 141 159 Medications Medication Current Medications IV Flush (NS 3 ml) 3 ml PER PROTOCOL IV ; Start 03/29/19 at 13:30 Ondansetron HCl (Zofran Inj) 4 mg Q6H PRN IV NAUSEA/VOMITING Last administered on 04/07/19at 18:53; Admin Dose 4 MG; Start 03/29/19 at 13:30 Acetaminophen (Tylenol Tab) 650 mg Q6H PRN PO .PAIN 1-3 OR TEMP Last administered on 03/31/19at 05:48; Admin Dose 650 MG; Start 03/29/19 at 13:30 Hydralazine HCl (Apresoline) 10 mg Q4H PRN IV sbp >185 Last administered on 04/18/19at 14:27; Admin Dose 10 MG; Start 03/29/19 at 14:00 Miscellaneous Information 1 ea NOTE XX ; Start 03/29/19 at 14:30 Glucose (Glutose) 15 gm Q15M PRN PO DECREASED GLUCOSE; Start 03/29/19 at 14:30 Glucose (Glutose) 22.5 gm Q15M PRN PO DECREASED GLUCOSE; Start 03/29/19 at 14:30 Dextrose (D50w Syringe) 25 ml Q15M PRN IV DECREASED GLUCOSE Last administered on 04/13/19at 05:56; Admin Dose 25 ML; Start 03/29/19 at 14:30; Status Hold Dextrose (D50w Syringe) 50 ml Q15M PRN IV DECREASED GLUCOSE; Start 03/29/19 at 14:30 Glucagon (Glucagen) 1 mg Q15M PRN IM DECREASED GLUCOSE; Start 03/29/19 at 14:30 Glucose (Glutose) 15 gm Q15M PRN BUCCAL DECREASED GLUCOSE; Start 03/29/19 at 14:30 Albumin Human 100 ml @ 100 mls/hr WITH DIALYSIS PRN IV SBP <90 DURING DIALYSIS Last administered on 04/15/19at 17:39; Admin Dose 100 MLS/HR; Start 03/29/19 at 17:00 Albuterol/ Ipratropium (Duoneb) 3 ml Q2H RESP THERAPY PRN HHN WHEEZING AND RESP DISTRESS Last administered on 04/09/19at 08:52; Admin Dose 3 ML; Start 03/29/19 at 18:00 Lorazepam (Ativan) 0.5 mg Q4H PRN IV AGITATION Last administered on 04/16/19at 15:45; Admin Dose 0.5 MG; Start 03/29/19 at 18:00 IV Flush (NS 10 ml) 10 ml Q8 PRN IV IV PROTOCOL; Start 03/29/19 at 18:00 Labetalol HCl (Labetalol) 10 mg Q4H PRN IV sbp >160; Start 03/30/19 at 09:00 Haloperidol (Haldol) 5 mg Q6H PRN IM agitation Last administered on 03/31/19at 00:10; Admin Dose 5 MG; Start 03/30/19 at 10:00 Heparin Sodium (Porcine) (Heparin (1000 Units/ml)) 3,200 unit AFTER DIALYSIS CATHETER Last administered on 04/17/19 14:31; Admin Dose 3,200 UNIT; Start 03/30/19 at 17:00 Atorvastatin Calcium (Lipitor) 40 mg HS NGT Last administered on 04/18/19 20:55; Admin Dose 40 MG; Start 03/31/19 at 21:00 Baclofen (Lioresal) 10 mg BID GTB Last administered on 04/18/19 20:56; Admin Dose 10 MG; Start 03/31/19 at 21:00 Doxazosin Mesylate (Cardura) 2 mg DAILY NGT Last administered on 04/18/19 08:38; Admin Dose 2 MG; Start 03/31/19 at 14:30 Gabapentin (Neurontin) 100 mg QHS PO Last administered on 04/18/19 20:55; Admin Dose 100 MG; Start 03/31/19 at 21:00 Acetaminophen (Tylenol Liquid) 650 mg Q4H PRN PEG MILD PAIN(1-3)OR ELEVATED TEMP Last administered on 04/16/19 08:42; Admin Dose 650 MG; Start 03/31/19 at 16:00 Lactobacillus Acidophilus/ Rhamnosus (Culturelle) 1 cap TID GTB Last administered on 04/18/19 20:56; Admin Dose 1 CAP; Start 04/02/19 at 13:00 Epoetin [place]-epbx (Retacrit (Esrd)) 10,000 unit MoWeFr@1700 SC Last administered on 04/17/19 18:12; Admin Dose 10,000 UNIT; Start 04/03/19 at 19:30 Lansoprazole (Prevacid) 30 mg BID@0600,1800 GTB Last administered on 04/19/19 05:28; Admin Dose 30 MG; Start 04/04/19 at 18:00 Multivit/Ca Carb/ B Cmplx/FA/Prenat (Karena-Geovanni) 1 tab DAILY GTB Last administered on 04/18/19 08:38; Admin Dose 1 TAB; Start 04/04/19 at 11:30 Aspirin (Aspirin) 81 mg DAILY PO Last administered on 04/11/19 08:46; Admin Dose 81 MG; Start 04/05/19 at 09:00 Fentanyl 100 ml @ 2.5 mls/hr TITRATE IV Last administered on 04/18/19 11:54; Admin Dose 5 MLS/HR; Start 04/08/19 at 00:00 Midazolam HCl 50 ml @ 1 mls/hr TITRATE PRN IV agitation Last administered on 04/19/19 01:47; Admin Dose 4 MLS/HR; Start 04/08/19 at 00:00 Norepinephrine 250 ml @ 1.875 mls/ hr TITRATE IV Last administered on 04/18/19 21:28; Admin Dose 1.875 MLS/HR; Start 04/08/19 at 00:00 Mupirocin (Bactroban) 1 applic BID TOP Last administered on 04/18/19 20:57; Admin Dose 1 APPLIC; Start 04/09/19 at 21:00 Budesonide (Pulmicort (Neb)) 0.5 mg BID RESP THERAPY HHN Last administered on 04/19/19 09:29; Admin Dose 0.5 MG; Start 04/12/19 at 09:00 Amikacin Sulfate (Amikacin Iv Per Pharmacy) AMIKACIN PER PHARMACY NOTE XX ; Start 04/12/19 at 10:30 Metronidazole 100 ml @ 100 mls/hr Q8 IVPB Last administered on 04/19/19 05:28; Admin Dose 100 MLS/HR; Start 04/12/19 at 14:00 Carvedilol (Coreg) 12.5 mg BID NGT Last administered on 04/18/19 20:56; Admin Dose 12.5 MG; Start 04/12/19 at 21:00 Amikacin Sulfate 300 mg/Sodium Chloride 101.2 ml @ 101.2 mls/ hr AFTER DIALYSIS IVPB Last administered on 04/17/19 14:43; Admin Dose 101.2 MLS/HR; Start 04/13/19 at 09:00 Dextrose 1,000 ml @ 50 mls/hr Q20H IV Last administered on 04/13/19 09:08; Admin Dose 75 MLS/HR; Start 04/13/19 at 09:00; Status Hold Insulin Aspart (Novolog Insulin Pen) NOVOLOG *MILD* ALGORI... Q4 SC Last administered on 04/19/19 08:25; Admin Dose 1 UNIT; Start 04/13/19 at 09:00 Clopidogrel Bisulfate (plaVIX) 75 mg DAILY GTB Last administered on 04/18/19 08:38; Admin Dose 75 MG; Start 04/16/19 at 09:00 Quetiapine Fumarate (Seroquel) 50 mg QHS GTB Last administered on 04/18/19 20:55; Admin Dose 50 MG; Start 04/16/19 at 21:00 Losartan Potassium (Cozaar) 25 mg DAILY PO Last administered on 04/18/19 08:38; Admin Dose 25 MG; Start 04/17/19 at 09:00 Alteplase, Recombinant (Cathflo (Activase)) 2 mg MAY REPEAT X1 PRN CATHETER IF CATHETER REMAINS OCCULUDED Last administered on 04/17/19 11:21; Admin Dose 2 MG; Start 04/17/19 at 09:30 Insulin Glargine (Lantus) 10 units DAILY@0800 SC Last administered on 04/18/19 08:50; Admin Dose 10 UNITS; Start 04/17/19 at 11:00 Metoclopramide HCl (Reglan) 10 mg Q6 IV Last administered on 04/19/19 05:28; Admin Dose 10 MG; Start 04/17/19 at 18:00 Albuterol (Ventolin Hfa) 4 puff Q6H RESP THERAPY INH Last administered on 04/19/19 07:55; Admin Dose 4 PUFF; Start 04/18/19 at 02:00 Ipratropium [place] (Atrovent Hfa) 4 puff Q6H RESP THERAPY INH Last administered on 04/19/19 07:55; Admin Dose 4 PUFF; Start 04/18/19 at 02:00 LILLIAN ZHANG MD Apr 19, 2019 09:48
[2019-04-19] MEDS: BACLOFEN 10 MG TAB GTB SCH ×2 (09:49→20:31)
[2019-04-19] MEDS: CLOPIDOGREL 75 MG TAB GTB SCH (09:49)
[2019-04-19] MEDS: BALSAM PERU/CASTOR OIL 60 GM TUBE TOP SCH (09:50)
[2019-04-19] MEDS: FENTAnyl (DRIP) 1000 mcg/100mL 100 ML IV SCH (10:10)
[2019-04-19] MEDS: ALBUMIN HUMAN 25% 100 ML IV PRN (10:18)
--- NOTE | 2019-04-19 11:33 | CONS ---
Consult Date/Type/Reason Admit Date/Time Mar 29, 2019 at 13:16 Initial Consult Date 04/07/19 Type of Consult Pulmonary Requesting Provider: LILLIAN ZHANG MD Date/Time of Note DATE: 04/19/19 TIME: 11:19 Subjective Patient and reintubated shortly after extubation. Now back on mechanical ventilation. Objective Vital Signs Date Temp Pulse Resp B/P (MAP) Pulse Ox O2 O2 Flow FiO2 Time Delivery Rate 04/19/19 66 16 113/51 97 Mechanical 09:00 (71) Ventilator 04/19/19 98.1 08:00 04/19/19 45 05:32 04/17/19 6.0 18:00 Intake and Output 04/18/19 04/18/19 04/19/19 1515:00 23:00 07:00 IntakeIntake Total 487 ml 513.5 ml 488.0 ml OutputOutput Total 0 ml 30 ml 10 ml BalanceBalance 487 ml 483.5 ml 478.0 ml Exam GENERAL: Elderly gentleman orally intubated VITAL SIGNS: per chart NECK: Supple. No JVD or lymphadenopathy. CARDIAC EXAM: S1, S2. No added sounds or murmurs. CHEST: Diminished air entry bilaterally ABDOMEN: Soft, nontender. No guarding or rebound. EXTREMITIES: No cyanosis, clubbing or edema. NEUROLOGIC: Generalized weakness. No focal deficits. Vent Setting Ventilator Support Mode: AC Fraction of Inspired Oxygen pe: 45 Positive End Expiratory Pressu: 5.0 Results/Medications Result Diagram: 04/19/19 0418 04/19/19 0415 Results 24 hrs Laboratory Tests Test 04/18/19 13:12 04/18/19 17:08 04/18/19 21:08 04/19/19 00:41 Bedside Glucose 125 124 138 172 Test 04/19/19 04:15 04/19/19 04:18 04/19/19 05:27 04/19/19 08:09 Sodium Level 140 Potassium Level 3.4 L Chloride Level 104 Carbon Dioxide Level 27 Anion Gap 9 Blood Urea Nitrogen 20 Creatinine 4.88 #H Glucose Level 140 Calcium Level 9.5 Phosphorus Level 3.3 Magnesium Level 2.1 Albumin 3.0 L White Blood Count 9.7 Red Blood Count 3.06 L Hemoglobin 8.7 L Hematocrit 28.2 L Mean Corpuscular 92.2 Volume Mean Corpuscular 28.4 L Hemoglobin Mean Corpuscular 30.9 L Hemoglobin Concent Red Cell 17.2 H Distribution Width Platelet Count 293 Mean Platelet Volume 10.3 Immature 0.900 H Granulocytes % Neutrophils % 77.2 H Lymphocytes % 11.1 L Monocytes % 6.1 Eosinophils % 4.0 Basophils % 0.7 Nucleated Red Blood 0.0 Cells % Immature 0.090 H Granulocytes # Neutrophils # 7.5 Lymphocytes # 1.1 Monocytes # 0.6 Eosinophils # 0.4 Basophils # 0.1 Nucleated Red Blood 0.0 Cells # Bedside Glucose 141 159 Test 04/19/19 09:45 Bedside Glucose 148 Medications Current Medications IV Flush (NS 3 ml) 3 ml PER PROTOCOL IV ; Start 03/29/19 at 13:30 Ondansetron HCl (Zofran Inj) 4 mg Q6H PRN IV NAUSEA/VOMITING Last administered on 04/07/19at 18:53; Admin Dose 4 MG; Start 03/29/19 at 13:30 Acetaminophen (Tylenol Tab) 650 mg Q6H PRN PO .PAIN 1-3 OR TEMP Last administered on 03/31/19at 05:48; Admin Dose 650 MG; Start 03/29/19 at 13:30 Hydralazine HCl (Apresoline) 10 mg Q4H PRN IV sbp >185 Last administered on 04/18/19at 14:27; Admin Dose 10 MG; Start 03/29/19 at 14:00 Miscellaneous Information 1 ea NOTE XX ; Start 03/29/19 at 14:30 Glucose (Glutose) 15 gm Q15M PRN PO DECREASED GLUCOSE; Start 03/29/19 at 14:30 Glucose (Glutose) 22.5 gm Q15M PRN PO DECREASED GLUCOSE; Start 03/29/19 at 14:30 Dextrose (D50w Syringe) 25 ml Q15M PRN IV DECREASED GLUCOSE Last administered on 04/13/19at 05:56; Admin Dose 25 ML; Start 03/29/19 at 14:30; Status Hold Dextrose (D50w Syringe) 50 ml Q15M PRN IV DECREASED GLUCOSE; Start 03/29/19 at 14:30 Glucagon (Glucagen) 1 mg Q15M PRN IM DECREASED GLUCOSE; Start 03/29/19 at 14:30 Glucose (Glutose) 15 gm Q15M PRN BUCCAL DECREASED GLUCOSE; Start 03/29/19 at 14:30 Albumin Human 100 ml @ 100 mls/hr WITH DIALYSIS PRN IV SBP <90 DURING DIALYSIS Last administered on 04/19/19 10:18; Admin Dose 100 MLS/HR; Start 03/29/19 at 17:00 Albuterol/ Ipratropium (Duoneb) 3 ml Q2H RESP THERAPY PRN HHN WHEEZING AND RESP DISTRESS Last administered on 04/09/19 08:52; Admin Dose 3 ML; Start 03/29/19 at 18:00 Lorazepam (Ativan) 0.5 mg Q4H PRN IV AGITATION Last administered on 04/16/19 15:45; Admin Dose 0.5 MG; Start 03/29/19 at 18:00 IV Flush (NS 10 ml) 10 ml Q8 PRN IV IV PROTOCOL; Start 03/29/19 at 18:00 Labetalol HCl (Labetalol) 10 mg Q4H PRN IV sbp >160; Start 03/30/19 at 09:00 Haloperidol (Haldol) 5 mg Q6H PRN IM agitation Last administered on 03/31/19 00:10; Admin Dose 5 MG; Start 03/30/19 at 10:00 Heparin Sodium (Porcine) (Heparin (1000 Units/ml)) 3,200 unit AFTER DIALYSIS CATHETER Last administered on 04/17/19 14:31; Admin Dose 3,200 UNIT; Start 03/30/19 at 17:00 Atorvastatin Calcium (Lipitor) 40 mg HS NGT Last administered on 04/18/19 20:55; Admin Dose 40 MG; Start 03/31/19 at 21:00 Baclofen (Lioresal) 10 mg BID GTB Last administered on 04/19/19 09:49; Admin Dose 10 MG; Start 03/31/19 at 21:00 Doxazosin Mesylate (Cardura) 2 mg DAILY NGT Last administered on 04/18/19 08:38; Admin Dose 2 MG; Start 03/31/19 at 14:30 Gabapentin (Neurontin) 100 mg QHS PO Last administered on 04/18/19 20:55; Admin Dose 100 MG; Start 03/31/19 at 21:00 Acetaminophen (Tylenol Liquid) 650 mg Q4H PRN PEG MILD PAIN(1-3)OR ELEVATED TEMP Last administered on 04/16/19 08:42; Admin Dose 650 MG; Start 03/31/19 at 16:00 Lactobacillus Acidophilus/ Rhamnosus (Culturelle) 1 cap TID GTB Last administered on 04/18/19 20:56; Admin Dose 1 CAP; Start 04/02/19 at 13:00 Epoetin [place]-epbx (Retacrit (Esrd)) 10,000 unit MoWeFr@1700 SC Last administered on 04/17/19 18:12; Admin Dose 10,000 UNIT; Start 04/03/19 at 19:30 Lansoprazole (Prevacid) 30 mg BID@0600,1800 GTB Last administered on 04/19/19 05:28; Admin Dose 30 MG; Start 04/04/19 at 18:00 Multivit/Ca Carb/ B Cmplx/FA/Prenat (Karena-Geovanni) 1 tab DAILY GTB Last administered on 04/19/19 09:48; Admin Dose 1 TAB; Start 04/04/19 at 11:30 Aspirin (Aspirin) 81 mg DAILY PO Last administered on 04/19/19 09:48; Admin Dose 81 MG; Start 04/05/19 at 09:00 Fentanyl 100 ml @ 2.5 mls/hr TITRATE IV Last administered on 04/19/19 10:10; Admin Dose 2.5 MLS/HR; Start 04/08/19 at 00:00 Midazolam HCl 50 ml @ 1 mls/hr TITRATE PRN IV agitation Last administered on 04/19/19 01:47; Admin Dose 4 MLS/HR; Start 04/08/19 at 00:00 Norepinephrine 250 ml @ 1.875 mls/ hr TITRATE IV Last administered on 04/18/19 21:28; Admin Dose 1.875 MLS/HR; Start 04/08/19 at 00:00 Mupirocin (Bactroban) 1 applic BID TOP Last administered on 04/18/19 20:57; Admin Dose 1 APPLIC; Start 04/09/19 at 21:00 Budesonide (Pulmicort (Neb)) 0.5 mg BID RESP THERAPY HHN Last administered on 04/19/19 09:29; Admin Dose 0.5 MG; Start 04/12/19 at 09:00 Amikacin Sulfate (Amikacin Iv Per Pharmacy) AMIKACIN PER PHARMACY NOTE XX ; Start 04/12/19 at 10:30 Metronidazole 100 ml @ 100 mls/hr Q8 IVPB Last administered on 04/19/19 05:28; Admin Dose 100 MLS/HR; Start 04/12/19 at 14:00 Carvedilol (Coreg) 12.5 mg BID NGT Last administered on 04/18/19 20:56; Admin Dose 12.5 MG; Start 04/12/19 at 21:00 Amikacin Sulfate 300 mg/Sodium Chloride 101.2 ml @ 101.2 mls/ hr AFTER DIALYSIS IVPB Last administered on 04/17/19 14:43; Admin Dose 101.2 MLS/HR; Start 04/13/19 at 09:00 Dextrose 1,000 ml @ 50 mls/hr Q20H IV Last administered on 04/13/19 09:08; Admin Dose 75 MLS/HR; Start 04/13/19 at 09:00; Status Hold Insulin Aspart (Novolog Insulin Pen) NOVOLOG *MILD* ALGORI... Q4 SC Last administered on 04/19/19 08:25; Admin Dose 1 UNIT; Start 04/13/19 at 09:00 Clopidogrel Bisulfate (plaVIX) 75 mg DAILY GTB Last administered on 04/19/19 09:49; Admin Dose 75 MG; Start 04/16/19 at 09:00 Quetiapine Fumarate (Seroquel) 50 mg QHS GTB Last administered on 04/18/19 20:55; Admin Dose 50 MG; Start 04/16/19 at 21:00 Losartan Potassium (Cozaar) 25 mg DAILY PO Last administered on 04/18/19 08:38; Admin Dose 25 MG; Start 04/17/19 at 09:00 Alteplase, Recombinant (Cathflo (Activase)) 2 mg MAY REPEAT X1 PRN CATHETER IF CATHETER REMAINS OCCULUDED Last administered on 04/17/19 11:21; Admin Dose 2 M G; Start 04/17/19 at 09:30 Insulin Glargine (Lantus) 10 units DAILY@0800 SC Last administered on 04/19/19 09:48; Admin Dose 10 UNITS; Start 04/17/19 at 11:00 Metoclopramide HCl (Reglan) 10 mg Q6 IV Last administered on 04/19/19at 05:28; Admin Dose 10 MG; Start 04/17/19 at 18:00 Albuterol (Ventolin Hfa) 4 puff Q6H RESP THERAPY INH Last administered on 04/19/19at 07:55; Admin Dose 4 PUFF; Start 04/18/19 at 02:00 Ipratropium [place] (Atrovent Hfa) 4 puff Q6H RESP THERAPY INH Last administered on 04/19/19at 07:55; Admin Dose 4 PUFF; Start 04/18/19 at 02:00 Assessment/Plan Hospital Course (Demo Recall) IMP: 1. Respiratory Failure/Ventilator Dependence 2. Status post septic Shock 3. Chronic renal insufficiency on hemodialysis 4. Anemia likely of chronic disease 5. Encephalopathy toxic metabolic RECS: 1. Ventilator support--patient is unable to be liberated from mechanical ventilation secondary to his encephalopathy. We will discuss probability of requiring tracheostomy with family. 2. Broad-spectrum antibiotics. 3. HD/UD. 4. Anti-seizure medications. 5. Continue tube feeding as tolerated 6. We will discuss with nephrology may require further hemodialysis. Critical care time 40 minutes. Overall prognosis very poor. SAMMI MOSES MD, [facility] Apr 19, 2019 11:32
--- NOTE | 2019-04-19 11:54 | CONS ---
Assessment/Plan Assessment/Plan Assessment/Plan (Daily) 1. Acute hypoxemic respiratory failure intubated on ventilator - persistently failed weaning 2. Accelerated HTN 3. ESRD on HD - MWF schedule at [facility] HD center 4. H/o CAD s/p CABG before 5. H/o CAD with previous recent stent placement in 09/2018 6. h/o HTN 7. H/o DM II 8. h/o HL 9. 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 H/o BPH Plan: s/p HD today 2.7 L removed, will plan for Extra HD on 04/20/19 evening - then will continue pt on MWF schedule while being in hospital Patient was extubated on 04/17/19 afternoon after meeting adequate criteria on CPAP mode but then had to be reintubated for recurrent respiratory failure few hours later. Patient likely unable to protect his airway - pt will need Tracheostomy and pt family is leaning in that direction pt is on Coreg 12.5 mg pO BID, losartan 25 mg po daily and HYdralazine 50mg PO TID , cardura 2 mg po daily IV abx amikacin, Flagyl renally dose all abx and monitor electrolytes D10W at 50 cc/hr Epogen 99066 units SQ MWF will follow up Consultation Date/Type/Reason Admit Date/Time Mar 29, 2019 at 13:16 Initial Consult Date 03/29/19 Type of Consult NEPHROLOGY Requesting Provider: LILLIAN HZANG MD Date/Time of Note DATE: 04/19/19 TIME: 11:54 24 HR Interval Summary Free Text/Dictation s/p HD today 2.7 L removed, BP stable, afebrile, pt remains intubated, family is leaning for tracheostomy Exam/Review of Systems Exam Vitals Vital Signs Date Temp Pulse Resp B/P (MAP) Pulse Ox O2 O2 Flow FiO2 Time Delivery Rate 04/19/19 45 11:32 04/19/19 66 16 113/51 97 Mechanical 09:00 (71) Ventilator 04/19/19 98.1 08:00 04/17/19 6.0 18:00 Intake and Output 04/18/19 04/18/19 04/19/19 1515:00 23:00 07:00 IntakeIntake Total 487 ml 513.5 ml 488.0 ml OutputOutput Total 0 ml 30 ml 10 ml BalanceBalance 487 ml 483.5 ml 478.0 ml Exam Constitutional: intubated on ventilator , ET tube in place Respiratory: crackles/rales, diminished breath sounds Cardiovascular: regular rate and rhythm, nl pulses Gastrointestinal: soft, non-tender Musculoskeletal: swelling (1-2+pitting edema ) Extremities: normal pulses Neurological: Non focal Results Result Diagram: 04/19/19 0418 04/19/19 0415 Results 24hrs Laboratory Tests Test 04/18/19 13:12 04/18/19 17:08 04/18/19 21:08 04/19/19 00:41 Bedside Glucose 125 124 138 172 Test 04/19/19 04:15 04/19/19 04:18 04/19/19 05:27 04/19/19 08:09 Sodium Level 140 Potassium Level 3.4 L Chloride Level 104 Carbon Dioxide Level 27 Anion Gap 9 Blood Urea Nitrogen 20 Creatinine 4.88 #H Glucose Level 140 Calcium Level 9.5 Phosphorus Level 3.3 Magnesium Level 2.1 Albumin 3.0 L White Blood Count 9.7 Red Blood Count 3.06 L Hemoglobin 8.7 L Hematocrit 28.2 L Mean Corpuscular 92.2 Volume Mean Corpuscular 28.4 L Hemoglobin Mean Corpuscular 30.9 L Hemoglobin Concent Red Cell 17.2 H Distribution Width Platelet Count 293 Mean Platelet Volume 10.3 Immature 0.900 H Granulocytes % Neutrophils % 77.2 H Lymphocytes % 11.1 L Monocytes % 6.1 Eosinophils % 4.0 Basophils % 0.7 Nucleated Red Blood 0.0 Cells % Immature 0.090 H Granulocytes # Neutrophils # 7.5 Lymphocytes # 1.1 Monocytes # 0.6 Eosinophils # 0.4 Basophils # 0.1 Nucleated Red Blood 0.0 Cells # Bedside Glucose 141 159 Test 04/19/19 09:45 Bedside Glucose 148 Medications Medication Current Medications IV Flush (NS 3 ml) 3 ml PER PROTOCOL IV ; Start 03/29/19 at 13:30 Ondansetron HCl (Zofran Inj) 4 mg Q6H PRN IV NAUSEA/VOMITING Last administered on 04/07/19at 18:53; Admin Dose 4 MG; Start 03/29/19 at 13:30 Acetaminophen (Tylenol Tab) 650 mg Q6H PRN PO .PAIN 1-3 OR TEMP Last administered on 03/31/19at 05:48; Admin Dose 650 MG; Start 03/29/19 at 13:30 Hydralazine HCl (Apresoline) 10 mg Q4H PRN IV sbp >185 Last administered on 04/18/19at 14:27; Admin Dose 10 MG; Start 03/29/19 at 14:00 Miscellaneous Information 1 ea NOTE XX ; Start 03/29/19 at 14:30 Glucose (Glutose) 15 gm Q15M PRN PO DECREASED GLUCOSE; Start 03/29/19 at 14:30 Glucose (Glutose) 22.5 gm Q15M PRN PO DECREASED GLUCOSE; Start 03/29/19 at 14:30 Dextrose (D50w Syringe) 25 ml Q15M PRN IV DECREASED GLUCOSE Last administered on 04/13/19at 05:56; Admin Dose 25 ML; Start 03/29/19 at 14:30; Status Hold Dextrose (D50w Syringe) 50 ml Q15M PRN IV DECREASED GLUCOSE; Start 03/29/19 at 14:30 Glucagon (Glucagen) 1 mg Q15M PRN IM DECREASED GLUCOSE; Start 03/29/19 at 14:30 Glucose (Glutose) 15 gm Q15M PRN BUCCAL DECREASED GLUCOSE; Start 03/29/19 at 14:30 Albumin Human 100 ml @ 100 mls/hr WITH DIALYSIS PRN IV SBP <90 DURING DIALYSIS Last administered on 04/19/19at 10:18; Admin Dose 100 MLS/HR; Start 03/29/19 at 17:00 Albuterol/ Ipratropium (Duoneb) 3 ml Q2H RESP THERAPY PRN HHN WHEEZING AND RESP DISTRESS Last administered on 04/09/19at 08:52; Admin Dose 3 ML; Start 03/29/19 at 18:00 Lorazepam (Ativan) 0.5 mg Q4H PRN IV AGITATION Last administered on 04/16/19at 15:45; Admin Dose 0.5 MG; Start 03/29/19 at 18:00 IV Flush (NS 10 ml) 10 ml Q8 PRN IV IV PROTOCOL; Start 03/29/19 at 18:00 Labetalol HCl (Labetalol) 10 mg Q4H PRN IV sbp >160; Start 03/30/19 at 09:00 Haloperidol (Haldol) 5 mg Q6H PRN IM agitation Last administered on 03/31/19 00:10; Admin Dose 5 MG; Start 03/30/19 at 10:00 Heparin Sodium (Porcine) (Heparin (1000 Units/ml)) 3,200 unit AFTER DIALYSIS CATHETER Last administered on 04/17/19 14:31; Admin Dose 3,200 UNIT; Start 03/30/19 at 17:00 Atorvastatin Calcium (Lipitor) 40 mg HS NGT Last administered on 04/18/19 20:55; Admin Dose 40 MG; Start 03/31/19 at 21:00 Baclofen (Lioresal) 10 mg BID GTB Last administered on 04/19/19 09:49; Admin Dose 10 MG; Start 03/31/19 at 21:00 Doxazosin Mesylate (Cardura) 2 mg DAILY NGT Last administered on 04/18/19 08:38; Admin Dose 2 MG; Start 03/31/19 at 14:30 Gabapentin (Neurontin) 100 mg QHS PO Last administered on 04/18/19 20:55; Admin Dose 100 MG; Start 03/31/19 at 21:00 Acetaminophen (Tylenol Liquid) 650 mg Q4H PRN PEG MILD PAIN(1-3)OR ELEVATED TEMP Last administered on 04/16/19 08:42; Admin Dose 650 MG; Start 03/31/19 at 16:00 Lactobacillus Acidophilus/ Rhamnosus (Culturelle) 1 cap TID GTB Last administered on 04/18/19 20:56; Admin Dose 1 CAP; Start 04/02/19 at 13:00 Epoetin [place]-epbx (Retacrit (Esrd)) 10,000 unit MoWeFr@1700 SC Last administered on 04/17/19 18:12; Admin Dose 10,000 UNIT; Start 04/03/19 at 19:30 Lansoprazole (Prevacid) 30 mg BID@0600,1800 GTB Last administered on 04/19/19 05:28; Admin Dose 30 MG; Start 04/04/19 at 18:00 Multivit/Ca Carb/ B Cmplx/FA/Prenat (Karena-Geovanni) 1 tab DAILY GTB Last administered on 04/19/19 09:48; Admin Dose 1 TAB; Start 04/04/19 at 11:30 Aspirin (Aspirin) 81 mg DAILY PO Last administered on 04/19/19 09:48; Admin Dose 81 MG; Start 04/05/19 at 09:00 Fentanyl 100 ml @ 2.5 mls/hr TITRATE IV Last administered on 04/19/19 10:10; Admin Dose 2.5 MLS/HR; Start 04/08/19 at 00:00 Midazolam HCl 50 ml @ 1 mls/hr TITRATE PRN IV agitation Last administered on 04/19/19 01:47; Admin Dose 4 MLS/HR; Start 04/08/19 at 00:00 Norepinephrine 250 ml @ 1.875 mls/ hr TITRATE IV Last administered on 04/18/19 21:28; Admin Dose 1.875 MLS/HR; Start 04/08/19 at 00:00 Mupirocin (Bactroban) 1 applic BID TOP Last administered on 04/18/19 20:57; Admin Dose 1 APPLIC; Start 04/09/19 at 21:00 Budesonide (Pulmicort (Neb)) 0.5 mg BID RESP THERAPY HHN Last administered on 04/19/19 09:29; Admin Dose 0.5 MG; Start 04/12/19 at 09:00 Amikacin Sulfate (Amikacin Iv Per Pharmacy) AMIKACIN PER PHARMACY NOTE XX ; Start 04/12/19 at 10:30 Metronidazole 100 ml @ 100 mls/hr Q8 IVPB Last administered on 04/19/19 05:28; Admin Dose 100 MLS/HR; Start 04/12/19 at 14:00 Carvedilol (Coreg) 12.5 mg BID NGT Last administered on 04/18/19 20:56; Admin Dose 12.5 MG; Start 04/12/19 at 21:00 Amikacin Sulfate 300 mg/Sodium Chloride 101.2 ml @ 101.2 mls/ hr AFTER DIALYSIS IVPB Last administered on 04/17/19 14:43; Admin Dose 101.2 MLS/HR; Start 04/13/19 at 09:00 Dextrose 1,000 ml @ 50 mls/hr Q20H IV Last administered on 04/13/19 09:08; Admin Dose 75 MLS/HR; Start 04/13/19 at 09:00; Status Hold Insulin Aspart (Novolog Insulin Pen) NOVOLOG *MILD* ALGORI... Q4 SC Last administered on 04/19/19 08:25; Admin Dose 1 UNIT; Start 04/13/19 at 09:00 Clopidogrel Bisulfate (plaVIX) 75 mg DAILY GTB Last administered on 04/19/19 09:49; Admin Dose 75 MG; Start 04/16/19 at 09:00 Quetiapine Fumarate (Seroquel) 50 mg QHS GTB Last administered on 04/18/19 20:55; Admin Dose 50 MG; Start 04/16/19 at 21:00 Losartan Potassium (Cozaar) 25 mg DAILY PO Last administered on 04/18/19 08:38; Admin Dose 25 MG; Start 04/17/19 at 09:00 Alteplase, Recombinant (Cathflo (Activase)) 2 mg MAY REPEAT X1 PRN CATHETER IF CATHETER REMAINS OCCULUDED Last administered on 04/17/19 11:21; Admin Dose 2 MG; Start 04/17/19 at 09:30 Insulin Glargine (Lantus) 10 units DAILY@0800 SC Last administered on 04/19/19 09:48; Admin Dose 10 UNITS; Start 04/17/19 at 11:00 Metoclopramide HCl (Reglan) 10 mg Q6 IV Last administered on 04/19/19 05:28; Admin Dose 10 MG; Start 04/17/19 at 18:00 Albuterol (Ventolin Hfa) 4 puff Q6H RESP THERAPY INH Last administered on 04/19/19 07:55; Admin Dose 4 PUFF; Start 04/18/19 at 02:00 Ipratropium [place] (Atrovent Hfa) 4 puff Q6H RESP THERAPY INH Last administered on 04/19/19 07:55; Admin Dose 4 PUFF; Start 04/18/19 at 02:00 BETZAIDA YAÑEZ MD Apr 19, 2019 11:54
[2019-04-19] MEDS: MUPIROCIN 2% 22 GM OINT TOP SCH ×2 (12:28→20:32)
[2019-04-19] MEDS: HEPARIN 1000 UNITS/ML 10 ML INJ CATHETER SCH (12:56)
--- NOTE | 2019-04-19 14:23 | CONS ---
Assessment/Plan Assessment/Plan Hospital Course (Demo Recall) No events overnight patient remains intubated in no distress afebrile with WBC of 9.7 platelets 293 neutrophils 77.2 MRI of the brain 04/16 revealed acute ischemic small vessel left thalamic infarct. 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 Head atraumatic normocephalic neck is supple chest rise symmetrical breath sounds diminished bases. Heart: S1-S2. Abdomen soft bowel sounds present. Extremities without cyanosis Assessment: 1. S/p sepsis 2. Acute respiratory failure, possibly aspirated 3. MRSA nares colonization 4. Encephalopathy, acute on chronic CVA 5. End-stage renal disease, hemodialysis dependent 6. Dysphagia 7. Chronic sinusitis and bilateral mastoiditis Plan: Remains unchanged, we will discontinue antibiotics and monitor him, continue vent management per pulmonary Consultation Date/Type/Reason Admit Date/Time Mar 29, 2019 at 13:16 Initial Consult Date 04/07/19 Type of Consult id Requesting Provider: LILLIAN ZHANG MD Date/Time of Note DATE: 04/19/19 TIME: 14:22 Exam/Review of Systems Exam Vitals Vital Signs Date Temp Pulse Resp B/P (MAP) Pulse Ox O2 O2 Flow FiO2 Time Delivery Rate 04/19/19 96 16 171/80 95 Mechanical 14:00 (110) Ventilator 04/19/19 98.0 12:00 04/19/19 45 12:00 04/17/19 6.0 18:00 Intake and Output 04/18/19 04/18/19 04/19/19 1515:00 23:00 07:00 IntakeIntake Total 487 ml 513.5 ml 488.0 ml OutputOutput Total 0 ml 30 ml 10 ml BalanceBalance 487 ml 483.5 ml 478.0 ml Results Result Diagram: 04/19/19 0418 04/19/19 0415 Results 24hrs Laboratory Tests Test 04/18/19 17:08 04/18/19 21:08 04/19/19 00:41 04/19/19 04:15 Bedside Glucose 124 138 172 Sodium Level 140 Potassium Level 3.4 L Chloride Level 104 Carbon Dioxide Level 27 Anion Gap 9 Blood Urea Nitrogen 20 Creatinine 4.88 #H Glucose Level 140 Calcium Level 9.5 Phosphorus Level 3.3 Magnesium Level 2.1 Albumin 3.0 L Test 04/19/19 04:18 04/19/19 05:27 04/19/19 08:09 04/19/19 09:45 White Blood Count 9.7 Red Blood Count 3.06 L Hemoglobin 8.7 L Hematocrit 28.2 L Mean Corpuscular 92.2 Volume Mean Corpuscular 28.4 L Hemoglobin Mean Corpuscular 30.9 L Hemoglobin Concent Red Cell 17.2 H Distribution Width Platelet Count 293 Mean Platelet Volume 10.3 Immature 0.900 H Granulocytes % Neutrophils % 77.2 H Lymphocytes % 11.1 L Monocytes % 6.1 Eosinophils % 4.0 Basophils % 0.7 Nucleated Red Blood 0.0 Cells % Immature 0.090 H Granulocytes # Neutrophils # 7.5 Lymphocytes # 1.1 Monocytes # 0.6 Eosinophils # 0.4 Basophils # 0.1 Nucleated Red Blood 0.0 Cells # Bedside Glucose 141 159 148 Test 04/19/19 13:02 Bedside Glucose 140 Medications Medication Current Medications IV Flush (NS 3 ml) 3 ml PER PROTOCOL IV ; Start 03/29/19 at 13:30 Ondansetron HCl (Zofran Inj) 4 mg Q6H PRN IV NAUSEA/VOMITING Last administered on 04/07/19at 18:53; Admin Dose 4 MG; Start 03/29/19 at 13:30 Acetaminophen (Tylenol Tab) 650 mg Q6H PRN PO .PAIN 1-3 OR TEMP Last administered on 03/31/19at 05:48; Admin Dose 650 MG; Start 03/29/19 at 13:30 Hydralazine HCl (Apresoline) 10 mg Q4H PRN IV sbp >185 Last administered on 04/18/19at 14:27; Admin Dose 10 MG; Start 03/29/19 at 14:00 Miscellaneous Information 1 ea NOTE XX ; Start 03/29/19 at 14:30 Glucose (Glutose) 15 gm Q15M PRN PO DECREASED GLUCOSE; Start 03/29/19 at 14:30 Glucose (Glutose) 22.5 gm Q15M PRN PO DECREASED GLUCOSE; Start 03/29/19 at 14:30 Dextrose (D50w Syringe) 25 ml Q15M PRN IV DECREASED GLUCOSE Last administered on 04/13/19at 05:56; Admin Dose 25 ML; Start 03/29/19 at 14:30; Status Hold Dextrose (D50w Syringe) 50 ml Q15M PRN IV DECREASED GLUCOSE; Start 03/29/19 at 14:30 Glucagon (Glucagen) 1 mg Q15M PRN IM DECREASED GLUCOSE; Start 03/29/19 at 14:30 Glucose (Glutose) 15 gm Q15M PRN BUCCAL DECREASED GLUCOSE; Start 03/29/19 at 14:30 Albumin Human 100 ml @ 100 mls/hr WITH DIALYSIS PRN IV SBP <90 DURING DIALYSIS Last administered on 04/19/19at 10:18; Admin Dose 100 MLS/HR; Start 03/29/19 at 17:00 Albuterol/ Ipratropium (Duoneb) 3 ml Q2H RESP THERAPY PRN HHN WHEEZING AND RESP DISTRESS Last administered on 04/09/19at 08:52; Admin Dose 3 ML; Start 03/29/19 at 18:00 Lorazepam (Ativan) 0.5 mg Q4H PRN IV AGITATION Last administered on 04/16/19at 15:45; Admin Dose 0.5 MG; Start 03/29/19 at 18:00 IV Flush (NS 10 ml) 10 ml Q8 PRN IV IV PROTOCOL; Start 03/29/19 at 18:00 Labetalol HCl (Labetalol) 10 mg Q4H PRN IV sbp >160; Start 03/30/19 at 09:00 Haloperidol (Haldol) 5 mg Q6H PRN IM agitation Last administered on 03/31/19at 00:10; Admin Dose 5 MG; Start 03/30/19 at 10:00 Heparin Sodium (Porcine) (Heparin (1000 Units/ml)) 3,200 unit AFTER DIALYSIS CATHETER Last administered on 04/19/19at 12:56; Admin Dose 3,200 UNIT; Start 03/30/19 at 17:00 Atorvastatin Calcium (Lipitor) 40 mg HS NGT Last administered on 04/18/19at 20:55; Admin Dose 40 MG; Start 03/31/19 at 21:00 Baclofen (Lioresal) 10 mg BID GTB Last administered on 04/19/19 09:49; Admin Dose 10 MG; Start 03/31/19 at 21:00 Doxazosin Mesylate (Cardura) 2 mg DAILY NGT Last administered on 04/18/19 08:38; Admin Dose 2 MG; Start 03/31/19 at 14:30 Gabapentin (Neurontin) 100 mg QHS PO Last administered on 04/18/19 20:55; Admin Dose 100 MG; Start 03/31/19 at 21:00 Acetaminophen (Tylenol Liquid) 650 mg Q4H PRN PEG MILD PAIN(1-3)OR ELEVATED TEMP Last administered on 04/16/19 08:42; Admin Dose 650 MG; Start 03/31/19 at 16:00 Lactobacillus Acidophilus/ Rhamnosus (Culturelle) 1 cap TID GTB Last administered on 04/19/19 12:33; Admin Dose 1 CAP; Start 04/02/19 at 13:00 Epoetin [place]-epbx (Retacrit (Esrd)) 10,000 unit MoWeFr@1700 SC Last administered on 04/17/19 18:12; Admin Dose 10,000 UNIT; Start 04/03/19 at 19:30 Lansoprazole (Prevacid) 30 mg BID@0600,1800 GTB Last administered on 04/19/19 05:28; Admin Dose 30 MG; Start 04/04/19 at 18:00 Multivit/Ca Carb/ B Cmplx/FA/Prenat (Karena-Geovanni) 1 tab DAILY GTB Last administered on 04/19/19 09:48; Admin Dose 1 TAB; Start 04/04/19 at 11:30 Aspirin (Aspirin) 81 mg DAILY PO Last administered on 04/19/19 09:48; Admin Dose 81 MG; Start 04/05/19 at 09:00 Fentanyl 100 ml @ 2.5 mls/hr TITRATE IV Last administered on 04/19/19 10:10; Admin Dose 2.5 MLS/HR; Start 04/08/19 at 00:00 Midazolam HCl 50 ml @ 1 mls/hr TITRATE PRN IV agitation Last administered on 04/19/19 01:47; Admin Dose 4 MLS/HR; Start 04/08/19 at 00:00 Norepinephrine 250 ml @ 1.875 mls/ hr TITRATE IV Last administered on 04/18/19 t 21:28; Admin Dose 1.875 MLS/HR; Start 04/08/19 at 00:00 Mupirocin (Bactroban) 1 applic BID TOP Last administered on 04/19/19 12:28; Admin Dose 1 APPLIC; Start 04/09/19 at 21:00 Budesonide (Pulmicort (Neb)) 0.5 mg BID RESP THERAPY HHN Last administered on 04/19/19 09:29; Admin Dose 0.5 MG; Start 04/12/19 at 09:00 Amikacin Sulfate (Amikacin Iv Per Pharmacy) AMIKACIN PER PHARMACY NOTE XX ; Start 04/12/19 at 10:30 Metronidazole 100 ml @ 100 mls/hr Q8 IVPB Last administered on 04/19/19 05:28; Admin Dose 100 MLS/HR; Start 04/12/19 at 14:00 Carvedilol (Coreg) 12.5 mg BID NGT Last administered on 04/18/19 20:56; Admin Dose 12.5 MG; Start 04/12/19 at 21:00 Amikacin Sulfate 300 mg/Sodium Chloride 101.2 ml @ 101.2 mls/ hr AFTER DIALYSIS IVPB Last administered on 04/17/19 14:43; Admin Dose 101.2 MLS/HR; Start 04/13/19 at 09:00 Dextrose 1,000 ml @ 50 mls/hr Q20H IV Last administered on 04/13/19 09:08; Admin Dose 75 MLS/HR; Start 04/13/19 at 09:00; Status Hold Insulin Aspart (Novolog Insulin Pen) NOVOLOG *MILD* ALGORI... Q4 SC Last administered on 04/19/19 08:25; Admin Dose 1 UNIT; Start 04/13/19 at 09:00 Clopidogrel Bisulfate (plaVIX) 75 mg DAILY GTB Last administered on 04/19/19 09:49; Admin Dose 75 MG; Start 04/16/19 at 09:00 Quetiapine Fumarate (Seroquel) 50 mg QHS GTB Last administered on 04/18/19 20:55; Admin Dose 50 MG; Start 04/16/19 at 21:00 Losartan Potassium (Cozaar) 25 mg DAILY PO Last administered on 04/18/19 08:38; Admin Dose 25 MG; Start 04/17/19 at 09:00 Alteplase, Recombinant (Cathflo (Activase)) 2 mg MAY REPEAT X1 PRN CATHETER IF CATHETER REMAINS OCCULUDED Last administered on 04/17/19 11:21; Admin Dose 2 MG; Start 04/17/19 at 09:30 Insulin Glargine (Lantus) 10 units DAILY@0800 SC Last administered on 04/19/19 09:48; Admin Dose 10 UNITS; Start 04/17/19 at 11:00 Metoclopramide HCl (Reglan) 10 mg Q6 IV Last administered on 04/19/19 12:39; Admin Dose 10 MG; Start 04/17/19 at 18:00 Albuterol (Ventolin Hfa) 4 puff Q6H RESP THERAPY INH Last administered on 04/19/19 07:55; Admin Dose 4 PUFF; Start 04/18/19 at 02:00 Ipratropium [place] (Atrovent Hfa) 4 puff Q6H RESP THERAPY INH Last administered on 04/19/19 07:55; Admin Dose 4 PUFF; Start 04/18/19 at 02:00 UMA COLINDRES NP Apr 19, 2019 14:23
[2019-04-19] MEDS: DOXAZOSIN 2 MG TAB NGT SCH (14:51)
[2019-04-19] MEDS: LOSARTAN 25 MG TAB PO SCH (14:52)
[2019-04-19] MEDS: EPOETIN ALFA-EPBX (ESRD) 10,000 UNIT/ML VIAL SC SCH (16:10)
--- NOTE | 2019-04-19 17:10 | CONS ---
Consult Date/Type/Reason Admit Date/Time Mar 29, 2019 at 13:16 Initial Consult Date 04/07/19 Type of Consultation: cv Requesting Provider: LILLIAN ZHANG MD Date/Time of Note DATE: 04/19/19 TIME: 17:09 Subjective Interventional cardiology follow-up progress note Subjective: Discussed with the staff and Telemetry was reviewed. pt remains intubated on vent BP has been stable mostlyh Patient nonverbal. events noted: extubated and had to be re-intubated on 04/17/19 objective: General: s/p intubation on the ventilator HEENT: NC/AT. pupils are equal. round. NECK:. no stridor. CV: RRR. systolic murmur; no gallop or rubs. PULM: + rhonchi. GI: SOFT, NT, ND, no rebound or guarding s/pPEG Extremity: trace B/L LE edema. no clubbing. neuro: opens his eyes Psych: calm the moment rectal: deferred : normal ECHO 04/09/19 REVIEWED Normal left ventricular systolic function. Normal left ventricular cavity size. Mild concentric left ventricular hypertrophy. Ejection fraction is visually estimated at 55 %. Tissue Doppler/Mitral Doppler indices are consistent with impaired relaxation (Stage I diastolic dysfunction). Mild mitral leaflet calcification. Mild mitral annular calcification. Mild mitral valve regurgitation. No significant aortic stenosis or insufficiency. Aortic cusps appear mildly calcified. Normal appearance of the tricuspid valve. The estimated Peak RVSP is 25 mmHg. There is trace tricuspid regurgitation. cxr 04/09/19 Persistent small left greater than right pleural effusions with associated atele ctasis/infiltrate. CXR . Appropriate position of central lines and endotracheal tube. 2. Bilateral perihilar and basilar airspace opacities representing pulmonary edema or infection. 3. Small left pleural effusion. MRI Brain 04/16 1. Acute, ischemic, small vessel left thalamic infarct. 2. Chronic right greater than left bilateral basal ganglia and bilateral thalamic lacunar infarcts 3. Moderate chronic microvascular ischemic disease and diffuse volume loss 4. Chronic right frontal murguia radiata small vessel infarct 5. 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 Objective Vitals Vital Signs Date Temp Pulse Resp B/P (MAP) Pulse Ox O2 O2 Flow FiO2 Time Delivery Rate 04/19/19 94 17 100 35 17:00 04/19/19 171/80 Mechanical 14:00 (110) Ventilator 04/19/19 98.0 12:00 04/17/19 6.0 18:00 Intake and Output 04/18/19 04/18/19 04/19/19 1414:59 22:59 06:59 IntakeIntake Total 466 ml 555 ml 448.0 ml OutputOutput Total 0 ml 30 ml 10 ml BalanceBalance 466 ml 525 ml 438.0 ml Results/Medications Result Diagram: 04/19/19 0418 04/19/19 0415 Results 24 hrs Laboratory Tests Test 04/18/19 21:08 04/19/19 00:41 04/19/19 04:15 04/19/19 04:18 Bedside Glucose 138 172 Sodium Level 140 Potassium Level 3.4 L Chloride Level 104 Carbon Dioxide Level 27 Anion Gap 9 Blood Urea Nitrogen 20 Creatinine 4.88 #H Glucose Level 140 Calcium Level 9.5 Phosphorus Level 3.3 Magnesium Level 2.1 Albumin 3.0 L White Blood Count 9.7 Red Blood Count 3.06 L Hemoglobin 8.7 L Hematocrit 28.2 L Mean Corpuscular 92.2 Volume Mean Corpuscular 28.4 L Hemoglobin Mean Corpuscular 30.9 L Hemoglobin Concent Red Cell 17.2 H Distribution Width Platelet Count 293 Mean Platelet Volume 10.3 Immature 0.900 H Granulocytes % Neutrophils % 77.2 H Lymphocytes % 11.1 L Monocytes % 6.1 Eosinophils % 4.0 Basophils % 0.7 Nucleated Red Blood 0.0 Cells % Immature 0.090 H Granulocytes # Neutrophils # 7.5 Lymphocytes # 1.1 Monocytes # 0.6 Eosinophils # 0.4 Basophils # 0.1 Nucleated Red Blood 0.0 Cells # Test 04/19/19 05:27 04/19/19 08:09 04/19/19 09:45 04/19/19 13:02 Bedside Glucose 141 159 148 140 Home Meds Reported Medications Bisacodyl (Dulcolax) 10 Mg Supp.rect, 10 MG RC DAILY PRN for CONSTIPATION, SUPP.RECT 03/29/19 Sodium Phosphate,Tom Green-Dibasic (Enema Ready To Use) 133 Ml Enema, 133 ML RC EVERY 2 DAYS PRN for CONSTIPATION, ENEMA 03/29/19 Acetaminophen* (Acetaminophen*) 650 Mg Tablet, 650 MG GTB Q4 PRN for MILD PAIN LEVEL 1-3, #30 TAB AND FEVER 03/29/19 Acetaminophen* (Acetaminophen*) 500 MG Extra Strength Tablet, 1000 MG GTB Q4H PRN for MODERATE PAIN LEVEL 4-6, TAB 03/29/19 Acetaminophen* (Acetaminophen*) 500 MG Extra Strength Tablet, 1000 MG GTB BID PRN for GENERAL BODY PAIN, TAB 03/29/19 Amino Acids/Protein Hydrolys (Pro-Stat Awc Liquid) 30 Ml Liquid, 30 ML GTB DAILY SUGAR FREE 03/29/19 Multivitamin* (Daily Value*) 1 Each Tablet, 1 TAB GTB DAILY, TAB 03/29/19 Ascorbic Acid* (Vitamin C*) 500 Mg Capsule.sa, 500 MG GTB DAILY, CAP 03/29/19 Ferrous Sulfate (Ferrous Sulfate) 300 Mg/5 Ml Liquid, 325 MG GTB DAILY 03/29/19 Cran/Vitc/Mannose/Inulin/Brom (Uti-Stat Liquid) 3,875 Mg/30 Ml Liquid, 3875 MG GTB DAILY 03/29/19 Cranberry Extract (Cranberry) 425 Mg Capsule, 425 MG GTB DAILY, CAP 03/29/19 Insulin Glulisine (Apidra Solostar) 100 Unit/1 Ml Insuln.pen, 4 UNIT SQ TIDM A, #1 TUB 03/29/19 Insulin Glargine,Hum.rec.anlog (Basaglar Kwikpen U-100) 100 Unit/1 Ml Insuln.pen, 25 UNIT SC QHS, EA 03/29/19 Insulin Regular, Human (Humulin R) 100 Unit/1 Ml Vial, 0 IJ AC MEALS AND BED TIME, VIAL 0-150 = 0 UNIT 151-200 = 1 UNIT 201-250 = 2 UNITS 251-300 = 3 UNITS 301-350 = 4 UNITS 351-400 = 5 UNITS OVER 400 GIVE 6 UNITS UNDER 70 OR OVER 400 NOTIFY 03/29/19 Sertraline Hcl* (Sertraline Hcl*) 25 Mg Tablet, 25 MG GTB DAILY, #30 TAB 03/29/19 Lorazepam* (Ativan*) 0.5 Mg Tablet, 0.5 MG GTB DAILY PRN for ANXIETY, #30 TAB 03/29/19 Quetiapine Fumarate* (Seroquel*) 25 Mg Tablet, 25 MG GTB HS, #30 TAB 03/29/19 Lorazepam* (Lorazepam*) 0.5 Mg Tablet, 0.5 MG GTB DAILY PRN for ANXIETY, TAB 03/29/19 Clonidine Hcl* (Clonidine Hcl*) 0.1 Mg Tab, 0.1 MG GTB DAILY PRN for ELEVATED BLOOD PRESSURE, TAB SBP >160 03/29/19 Azelastine Hcl* (Azelastine Hcl*) 137 Mcg/0.137 Ml Reese.pump, 2 SPRAYS NASAL BID, #1 EA TO EACH NOSTRIL 03/29/19 Carvedilol* (Carvedilol*) 12.5 Mg Tablet, 12.5 MG GTB BID, #60 TAB 03/29/19 Diltiazem Hcl* (Cardizem CD*) 240 Mg Cap.sr.24h, 240 MG GTB DAILY, #30 CAP 03/29/19 Ergocalciferol (Vitamin D2) (VITAMIN D2) 50,000 Unit Capsule, 02309 UNIT GTB EVERY MONDAY, CAP 03/29/19 Hydralazine Hcl* (Hydralazine Hcl*) 50 Mg Tab, 50 MG GTB TID PRN for ELEVATED BLOOD PRESSURE, #60 TAB 03/29/19 Losartan Potassium* (Losartan Potassium*) 100 Mg Tablet, 100 MG GTB DAILY, TAB 03/29/19 Metoprolol Succinate* (Toprol XL*) 25 Mg Tab.sr.24h, 25 MG GTB DAILY, #30 TAB 03/29/19 Linagliptin (TRADJENTA) 5 Mg Tablet, 5 MG GTB DAILY, TAB 03/29/19 Albuterol Sulfate* (Proair HFA*) 8.5 Gm Hfa.aer.ad, 2 PUFF INH Q4H PRN for WHEEZING AND SOB, #1 INHALER 03/29/19 Ranitidine Hcl* (Ranitidine Hcl*) 300 Mg Tablet, 300 MG GTB HS, #30 TAB 03/29/19 Levetiracetam* (Keppra*) 500 Mg Tablet, 500 MG GTB BID, TAB 03/29/19 Gabapentin* (Gabapentin*) 100 Mg Capsule, 100 MG GTB QHS, #90 CAP 03/29/19 Doxazosin Mesylate* (Doxazosin Mesylate*) 2 Mg Tablet, 2 MG GTB HS, TAB 03/29/19 Docusate Sodium* (Dok*) 100 Mg Tablet, 100 MG GTB BID, #60 CAP 03/29/19 Cyanocobalamin (Vitamin B-12) (Cyanocobalamin Injection) 1,000 Mcg/1 Ml Vial, 1000 MCG IJ EVERY MONDAY, VIAL 03/29/19 Clopidogrel Bisulfate (Clopidogrel) 75 Mg Tablet, 75 MG GTB DAILY, #30 TAB 03/29/19 Calcium Carbonate ([place]-500) 500 Mg Tablet, 500 MG GTB DAILY, TAB 03/29/19 Baclofen* (Baclofen*) 10 Mg Tablet, 10 MG GTB BID, TAB 03/29/19 Atorvastatin* (Atorvastatin*) 40 Mg Tablet, 40 MG GTB QHS, #30 TAB 03/29/19 Aspirin (Low Dose Aspirin) 81 Mg Tablet.dr, 81 MG GTB DAILY, #30 TAB 03/29/19 Medications Current Medications IV Flush (NS 3 ml) 3 ml PER PROTOCOL IV ; Start 03/29/19 at 13:30 Ondansetron HCl (Zofran Inj) 4 mg Q6H PRN IV NAUSEA/VOMITING Last administered on 04/07/19at 18:53; Admin Dose 4 MG; Start 03/29/19 at 13:30 Acetaminophen (Tylenol Tab) 650 mg Q6H PRN PO .PAIN 1-3 OR TEMP Last administered on 03/31/19at 05:48; Admin Dose 650 MG; Start 03/29/19 at 13:30 Hydralazine HCl (Apresoline) 10 mg Q4H PRN IV sbp >185 Last administered on 04/18/19at 14:27; Admin Dose 10 MG; Start 03/29/19 at 14:00 Miscellaneous Information 1 ea NOTE XX ; Start 03/29/19 at 14:30 Glucose (Glutose) 15 gm Q15M PRN PO DECREASED GLUCOSE; Start 03/29/19 at 14:30 Glucose (Glutose) 22.5 gm Q15M PRN PO DECREASED GLUCOSE; Start 03/29/19 at 14:30 Dextrose (D50w Syringe) 25 ml Q15M PRN IV DECREASED GLUCOSE Last administered on 04/13/19at 05:56; Admin Dose 25 ML; Start 03/29/19 at 14:30; Status Hold Dextrose (D50w Syringe) 50 ml Q15M PRN IV DECREASED GLUCOSE; Start 03/29/19 at 14:30 Glucagon (Glucagen) 1 mg Q15M PRN IM DECREASED GLUCOSE; Start 03/29/19 at 14:30 Glucose (Glutose) 15 gm Q15M PRN BUCCAL DECREASED GLUCOSE; Start 03/29/19 at 14:30 Albumin Human 100 ml @ 100 mls/hr WITH DIALYSIS PRN IV SBP <90 DURING DIALYSIS Last administered on 04/19/19 10:18; Admin Dose 100 MLS/HR; Start 03/29/19 at 17:00 Albuterol/ Ipratropium (Duoneb) 3 ml Q2H RESP THERAPY PRN HHN WHEEZING AND RESP DISTRESS Last administered on 04/09/19 08:52; Admin Dose 3 ML; Start 03/29/19 at 18:00 Lorazepam (Ativan) 0.5 mg Q4H PRN IV AGITATION Last administered on 04/16/19 15:45; Admin Dose 0.5 MG; Start 03/29/19 at 18:00 IV Flush (NS 10 ml) 10 ml Q8 PRN IV IV PROTOCOL; Start 03/29/19 at 18:00 Labetalol HCl (Labetalol) 10 mg Q4H PRN IV sbp >160; Start 03/30/19 at 09:00 Haloperidol (Haldol) 5 mg Q6H PRN IM agitation Last administered on 03/31/19 00:10; Admin Dose 5 MG; Start 03/30/19 at 10:00 Heparin Sodium (Porcine) (Heparin (1000 Units/ml)) 3,200 unit AFTER DIALYSIS CATHETER Last administered on 04/19/19 12:56; Admin Dose 3,200 UNIT; Start 03/30/19 at 17:00 Atorvastatin Calcium (Lipitor) 40 mg HS NGT Last administered on 04/18/19 20:55; Admin Dose 40 MG; Start 03/31/19 at 21:00 Baclofen (Lioresal) 10 mg BID GTB Last administered on 04/19/19 09:49; Admin Dose 10 MG; Start 03/31/19 at 21:00 Doxazosin Mesylate (Cardura) 2 mg DAILY NGT Last administered on 04/19/19 14:51; Admin Dose 2 MG; Start 03/31/19 at 14:30 Gabapentin (Neurontin) 100 mg QHS PO Last administered on 04/18/19 20:55; Admin Dose 100 MG; Start 03/31/19 at 21:00 Acetaminophen (Tylenol Liquid) 650 mg Q4H PRN PEG MILD PAIN(1-3)OR ELEVATED TEMP Last administered on 04/16/19 08:42; Admin Dose 650 MG; Start 03/31/19 at 16:00 Lactobacillus Acidophilus/ Rhamnosus (Culturelle) 1 cap TID GTB Last administered on 04/19/19 12:33; Admin Dose 1 CAP; Start 04/02/19 at 13:00 Epoetin [place]-epbx (Retacrit (Esrd)) 10,000 unit MoWeFr@1700 SC Last administered on 04/19/19 16:10; Admin Dose 10,000 UNIT; Start 04/03/19 at 19:30 Lansoprazole (Prevacid) 30 mg BID@0600,1800 GTB Last administered on 04/19/19 05:28; Admin Dose 30 MG; Start 04/04/19 at 18:00 Multivit/Ca Carb/ B Cmplx/FA/Prenat (Karena-Geovanni) 1 tab DAILY GTB Last administered on 04/19/19 09:48; Admin Dose 1 TAB; Start 04/04/19 at 11:30 Aspirin (Aspirin) 81 mg DAILY PO Last administered on 04/19/19 09:48; Admin Dose 81 MG; Start 04/05/19 at 09:00 Fentanyl 100 ml @ 2.5 mls/hr TITRATE IV Last administered on 04/19/19 10:10; Admin Dose 2.5 MLS/HR; Start 04/08/19 at 00:00 Midazolam HCl 50 ml @ 1 mls/hr TITRATE PRN IV agitation Last administered on 04/19/19 01:47; Admin Dose 4 MLS/HR; Start 04/08/19 at 00:00 Norepinephrine 250 ml @ 1.875 mls/ hr TITRATE IV Last administered on 04/18/19 21:28; Admin Dose 1.875 MLS/HR; Start 04/08/19 at 00:00 Mupirocin (Bactroban) 1 applic BID TOP Last administered on 04/19/19 12:28; Admin Dose 1 APPLIC; Start 04/09/19 at 21:00 Budesonide (Pulmicort (Neb)) 0.5 mg BID RESP THERAPY HHN Last administered on 04/19/19 09:29; Admin Dose 0.5 MG; Start 04/12/19 at 09:00 Amikacin Sulfate (Amikacin Iv Per Pharmacy) AMIKACIN PER PHARMACY NOTE XX ; Start 04/12/19 at 10:30 Metronidazole 100 ml @ 100 mls/hr Q8 IVPB Last administered on 04/19/19 14:52; Admin Dose 100 MLS/HR; Start 04/12/19 at 14:00 Carvedilol (Coreg) 12.5 mg BID NGT Last administered on 04/19/19 14:51; Admin Dose 12.5 MG; Start 04/12/19 at 21:00 Amikacin Sulfate 300 mg/Sodium Chloride 101.2 ml @ 101.2 mls/ hr AFTER DIALYSIS IVPB Last administered on 04/17/19 14:43; Admin Dose 101.2 MLS/HR; Start 04/13/19 at 09:00 Dextrose 1,000 ml @ 50 mls/hr Q20H IV Last administered on 04/13/19 09:08; Admin Dose 75 MLS/HR; Start 04/13/19 at 09:00; Status Hold Insulin Aspart (Novolog Insulin Pen) NOVOLOG *MILD* ALGORI... Q4 SC Last administered on 04/19/19 16:39; Admin Dose 2 UNIT; Start 04/13/19 at 09:00 Clopidogrel Bisulfate (plaVIX) 75 mg DAILY GTB Last administered on 04/19/19 09:49; Admin Dose 75 MG; Start 04/16/19 at 09:00 Quetiapine Fumarate (Seroquel) 50 mg QHS GTB Last administered on 04/18/19 20:55; Admin Dose 50 MG; Start 04/16/19 at 21:00 Losartan Potassium (Cozaar) 25 mg DAILY PO Last administered on 04/19/19 14:52; Admin Dose 25 MG; Start 04/17/19 at 09:00 Alteplase, Recombinant (Cathflo (Activase)) 2 mg MAY REPEAT X1 PRN CATHETER IF CATHETER REMAINS OCCULUDED Last administered on 04/17/19 11:21; Admin Dose 2 MG; Start 7/10/19 at 09:30 Insulin Glargine (Lantus) 10 units DAILY@0800 SC Last administered on 04/19/19 09:48; Admin Dose 10 UNITS; Start 04/17/19 at 11:00 Metoclopramide HCl (Reglan) 10 mg Q6 IV Last administered on 04/19/19 12:39; Admin Dose 10 MG; Start 04/17/19 at 18:00 Albuterol (Ventolin Hfa) 4 puff Q6H RESP THERAPY INH Last administered on 04/19/19 15:28; Admin Dose 4 PUFF; Start 04/18/19 at 02:00 Ipratropium [place] (Atrovent Hfa) 4 puff Q6H RESP THERAPY INH Last administered on 04/19/19 15:28; Admin Dose 4 PUFF; Start 04/18/19 at 02:00 Assessment/Plan Hospital Course (Demo Recall) 1. History of extensive coronary artery disease status post VA status post coronary bypass graft status post PCI 2. Status post recent CVA with now acute CVA based on MRI 3. End-stage renal disease on hemodialysis 4. Hypertension: labile . hypotensive now 5. Dyslipidemia 6. Severe encephalopathy 7. Dysphagia status post PEG placement 8. Severe anemia and history of GI bleed 9. Respiratory failure status post intubation on the vent now Recommendations: Cont with aspirin Plavix Respiratory care and ventilatory support will be continued. Hemodialysis as per renal. transfuse prn vent support for now Allow for permissive HTN for today and slowly lower BP tomorrow ? need for trach if family wishes to be full code Thank you for this referral. We will continue to follow along with you NEEDED over the weekend SEAN CROUCH MD [facility] SEAN CROUCH MD Apr 19, 2019 17:10
[2019-04-19] MEDS: ATORVASTATIN 40 MG TAB NGT SCH (20:31)
[2019-04-19] MEDS: GABAPENTIN 100 MG CAP PO SCH (20:31)
[2019-04-19] MEDS: QUETIAPINE 25 MG TAB GTB SCH (20:32)
[2019-04-19] MEDS: LABETALOL HCL 20MG INJ IV PRN (21:36)
[2019-04-20] VITALS (65 sets, daily range): BP systolic 67–228; BP diastolic 43–130; PULSE 66–102; RESP 12–25
[2019-04-20] MEDS: METOCLOPRAMIDE 10 MG INJ IV SCH ×5 (01:20→23:57)
[2019-04-20] MEDS: INSULIN ASPART [NOVOLOG] 3 ML PEN SC SCH ×6 (01:27→20:54)
[2019-04-20] MEDS: ALBUTEROL HFA 8 GM INHALER INH SCH ×4 (01:51→19:21)
[2019-04-20] MEDS: IPRATROPIUM (HFA) 12.9 GM INHALER INH SCH ×4 (01:51→19:21)
[2019-04-20] MEDS: LANSOPRAZOLE 30 MG CAP GTB SCH ×2 (05:39→17:28)
[2019-04-20] MEDS: metroNIDAZOLE 500 MG/NS (PMX) 100 ML IVPB SCH (05:40)
[2019-04-20] MEDS: LACTOBACILLUS RHAMNOSUS CAP GTB SCH ×3 (09:09→20:53)
[2019-04-20] MEDS: LOSARTAN 25 MG TAB PO SCH (09:09)
[2019-04-20] MEDS: ASPIRIN 81 MG TAB PO SCH (09:09)
[2019-04-20] MEDS: BACLOFEN 10 MG TAB GTB SCH ×2 (09:09→20:53)
[2019-04-20] MEDS: CLOPIDOGREL 75 MG TAB GTB SCH (09:09)
[2019-04-20] MEDS: DOXAZOSIN 2 MG TAB NGT SCH (09:09)
[2019-04-20] MEDS: MUPIROCIN 2% 22 GM OINT TOP SCH ×2 (09:10→20:58)
[2019-04-20] MEDS: MULTIVIT/CA CARB/B CMPLX/FA TAB GTB SCH (09:10)
[2019-04-20] MEDS: BALSAM PERU/CASTOR OIL 60 GM TUBE TOP SCH (09:10)
[2019-04-20] MEDS: INSULIN GLARGINE [LANTus] (100 UNITS/ML) SYG SC SCH (09:12)
[2019-04-20] MEDS: BUDESONIDE (NEB) 0.5MG/2ML AMP HHN SCH ×2 (10:10→19:21)
--- NOTE | 2019-04-20 11:05 | CONS ---
Assessment/Plan Assessment/Plan Assessment/Plan (Daily) 1. Acute hypoxemic respiratory failure intubated on ventilator - persistently failed weaning 2. Accelerated HTN 3. ESRD on HD - MWF schedule at [facility] 4. H/o CAD s/p CABG before 5. H/o CAD with previous recent stent placement in 09/2018 6. h/o HTN 7. H/o DM II 8. h/o HL 9. 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 H/o BPH Plan: s/p HD yesterday2.7 L removed, plan for Extra HD today evening - then will continue pt on MWF schedule while being in hospital Patient was extubated on 04/17/19 afternoon after meeting adequate criteria on CPAP mode but then had to be reintubated for recurrent respiratory failure few hours later. Patient likely unable to protect his airway - pt will need Tracheostomy and pt family is leaning in that direction pt is on Coreg 12.5 mg pO BID, losartan 25 mg po daily and HYdralazine 50mg PO TID , cardura 2 mg po daily IV abx amikacin, Flagyl renally dose all abx and monitor electrolytes D10W at 50 cc/hr Epogen 72080 units SQ MWF will follow up Patient seen in collaboration with Dr Emily Chua Consultation Date/Type/Reason Admit Date/Time Mar 29, 2019 at 13:16 Initial Consult Date 04/07/19 Type of Consult NEPHROLOGY Reason for Consultation ESRD ON HD Requesting Provider: LILLIAN ZHANG MD Date/Time of Note DATE: 04/20/19 TIME: 11:04 24 HR Interval Summary Free Text/Dictation remains intubated afebrile on HD no new events reported last night dw staff Patient seen in collaboration with Dr Emily Chua Subjective hx not possible: pt non-verbal Constitutional: requiring IVF, requiring O2 Exam/Review of Systems Exam Vitals Vital Signs Date Temp Pulse Resp B/P (MAP) Pulse Ox O2 O2 Flow FiO2 Time Delivery Rate 04/20/19 84 16 100 34 09:54 04/20/19 180/81 Mechanical 06:00 (114) Ventilator 04/20/19 97.5 04:00 04/17/19 6.0 18:00 Intake and Output 04/19/19 04/19/19 04/20/19 1515:00 23:00 07:00 IntakeIntake Total 623.5 ml 648.0 ml 545.5 ml OutputOutput Total 3820 ml 20 ml 5 ml BalanceBalance -3196.5 ml 628.0 ml 540.5 ml Constitutional: well developed, non-verbal Eyes: nl lids, nl sclera ENMT: nl external ears & nose Neck: non-tender, other (ET tube intact) Cardiovascular: nl pulses, other (s1s2) Gastrointestinal: soft Musculoskeletal: muscle weakness Extremities: normal pulses Neurological: unresponsive Results Result Diagram: 04/20/19 0420 04/20/19 042 Results 24hrs Laboratory Tests Test 04/19/19 13:02 04/20/19 01:25 04/20/19 04:20 04/20/19 04:52 Bedside Glucose 140 220 258 H White Blood Count 10.5 Red Blood Count 3.28 L Hemoglobin 9.4 L Hematocrit 30.6 L Mean Corpuscular 93.3 Volume Mean Corpuscular 28.7 L Hemoglobin Mean Corpuscular 30.7 L Hemoglobin Concent Red Cell 17.1 H Distribution Width Platelet Count 330 Mean Platelet Volume 10.4 Immature 0.800 H Granulocytes % Neutrophils % 76.4 Lymphocytes % 11.8 L Monocytes % 6.8 Eosinophils % 3.4 Basophils % 0.8 Nucleated Red Blood 0.0 Cells % Immature 0.080 H Granulocytes # Neutrophils # 8.0 H Lymphocytes # 1.2 Monocytes # 0.7 Eosinophils # 0.4 Basophils # 0.1 Nucleated Red Blood 0.0 Cells # Sodium Level 139 Potassium Level 3.5 Chloride Level 101 Carbon Dioxide Level 30 Anion Gap 8 Blood Urea Nitrogen 15 Creatinine 3.48 #H Glucose Level 260 #H Calcium Level 9.6 Phosphorus Level 2.3 #L Magnesium Level 2.1 Albumin 3.4 Medications Medication Current Medications IV Flush (NS 3 ml) 3 ml PER PROTOCOL IV ; Start 03/29/19 at 13:30 Ondansetron HCl (Zofran Inj) 4 mg Q6H PRN IV NAUSEA/VOMITING Last administered on 04/07/19at 18:53; Admin Dose 4 MG; Start 03/29/19 at 13:30 Acetaminophen (Tylenol Tab) 650 mg Q6H PRN PO .PAIN 1-3 OR TEMP Last administered on 03/31/19at 05:48; Admin Dose 650 MG; Start 03/29/19 at 13:30 Hydralazine HCl (Apresoline) 10 mg Q4H PRN IV sbp >185 Last administered on 04/18/19at 14:27; Admin Dose 10 MG; Start 03/29/19 at 14:00 Miscellaneous Information 1 ea NOTE XX ; Start 03/29/19 at 14:30 Glucose (Glutose) 15 gm Q15M PRN PO DECREASED GLUCOSE; Start 03/29/19 at 14:30 Glucose (Glutose) 22.5 gm Q15M PRN PO DECREASED GLUCOSE; Start 03/29/19 at 14:30 Dextrose (D50w Syringe) 25 ml Q15M PRN IV DECREASED GLUCOSE Last administered on 04/13/19at 05:56; Admin Dose 25 ML; Start 03/29/19 at 14:30; Status Hold Dextrose (D50w Syringe) 50 ml Q15M PRN IV DECREASED GLUCOSE; Start 03/29/19 at 14:30 Glucagon (Glucagen) 1 mg Q15M PRN IM DECREASED GLUCOSE; Start 03/29/19 at 14:30 Glucose (Glutose) 15 gm Q15M PRN BUCCAL DECREASED GLUCOSE; Start 03/29/19 at 14:30 Albumin Human 100 ml @ 100 mls/hr WITH DIALYSIS PRN IV SBP <90 DURING DIALYSIS Last administered on 04/19/19at 10:18; Admin Dose 100 MLS/HR; Start 03/29/19 at 17:00 Albuterol/ Ipratropium (Duoneb) 3 ml Q2H RESP THERAPY PRN HHN WHEEZING AND RESP DISTRESS Last administered on 04/09/19at 08:52; Admin Dose 3 ML; Start 03/29/19 at 18:00 Lorazepam (Ativan) 0.5 mg Q4H PRN IV AGITATION Last administered on 04/16/19at 15:45; Admin Dose 0.5 MG; Start 03/29/19 at 18:00 IV Flush (NS 10 ml) 10 ml Q8 PRN IV IV PROTOCOL; Start 03/29/19 at 18:00 Labetalol HCl (Labetalol) 10 mg Q4H PRN IV sbp >160 Last administered on 04/19/19at 21:36; Admin Dose 10 MG; Start 03/30/19 at 09:00 Haloperidol (Haldol) 5 mg Q6H PRN IM agitation Last administered on 03/31/19 00:10; Admin Dose 5 MG; Start 03/30/19 at 10:00 Heparin Sodium (Porcine) (Heparin (1000 Units/ml)) 3,200 unit AFTER DIALYSIS CATHETER Last administered on 04/19/19 12:56; Admin Dose 3,200 UNIT; Start 03/30/19 at 17:00 Atorvastatin Calcium (Lipitor) 40 mg HS NGT Last administered on 04/19/19 20:31; Admin Dose 40 MG; Start 03/31/19 at 21:00 Baclofen (Lioresal) 10 mg BID GTB Last administered on 04/20/19 09:09; Admin Dose 10 MG; Start 03/31/19 at 21:00 Doxazosin Mesylate (Cardura) 2 mg DAILY NGT Last administered on 04/20/19 09:09; Admin Dose 2 MG; Start 03/31/19 at 14:30 Gabapentin (Neurontin) 100 mg QHS PO Last administered on 04/19/19 20:31; Admin Dose 100 MG; Start 03/31/19 at 21:00 Acetaminophen (Tylenol Liquid) 650 mg Q4H PRN PEG MILD PAIN(1-3)OR ELEVATED TEMP Last administered on 04/16/19 08:42; Admin Dose 650 MG; Start 03/31/19 at 16:00 Lactobacillus Acidophilus/ Rhamnosus (Culturelle) 1 cap TID GTB Last administered on 04/20/19 09:09; Admin Dose 1 CAP; Start 04/02/19 at 13:00 Epoetin [place]-epbx (Retacrit (Esrd)) 10,000 unit MoWeFr@1700 SC Last administere d on 04/19/19 16:10; Admin Dose 10,000 UNIT; Start 04/03/19 at 19:30 Lansoprazole (Prevacid) 30 mg BID@0600,1800 GTB Last administered on 04/20/19 05:39; Admin Dose 30 MG; Start 04/04/19 at 18:00 Multivit/Ca Carb/ B Cmplx/FA/Prenat (Karena-Geovanni) 1 tab DAILY GTB Last administered on 04/20/19 09:10; Admin Dose 1 TAB; Start 04/04/19 at 11:30 Aspirin (Aspirin) 81 mg DAILY PO Last administered on 04/20/19 09:09; Admin Dose 81 MG; Start 04/05/19 at 09:00 Fentanyl 100 ml @ 2.5 mls/hr TITRATE IV Last administered on 04/19/19 10:10; Admin Dose 2.5 MLS/HR; Start 04/08/19 at 00:00 Midazolam HCl 50 ml @ 1 mls/hr TITRATE PRN IV agitation Last administered on 04/19/19 19:34; Admin Dose 4 MLS/HR; Start 04/08/19 at 00:00 Norepinephrine 250 ml @ 1.875 mls/ hr TITRATE IV Last administered on 21:28; Admin Dose 1.875 MLS/HR; Start 04/08/19 at 00:00 Mupirocin (Bactroban) 1 applic BID TOP Last administered on 04/20/19 09:10; Admin Dose 1 APPLIC; Start 04/09/19 at 21:00 Budesonide (Pulmicort (Neb)) 0.5 mg BID RESP THERAPY HHN Last administered on 04/20/19 10:10; Admin Dose 0.5 MG; Start 04/12/19 at 09:00 Carvedilol (Coreg) 12.5 mg BID NGT Last administered on 04/20/19 09:09; Admin Dose 12.5 MG; Start 04/12/19 at 21:00 Dextrose 1,000 ml @ 50 mls/hr Q20H IV Last administered on 04/13/19 09:08; Admin Dose 75 MLS/HR; Start 04/13/19 at 09:00; Status Hold Insulin Aspart (Novolog Insulin Pen) NOVOLOG *MILD* ALGORI... Q4 SC Last administered on 04/20/19 09:19; Admin Dose 4 UNIT; Start 04/13/19 at 09:00 Clopidogrel Bisulfate (plaVIX) 75 mg DAILY GTB Last administered on 04/20/19 09:09; Admin Dose 75 MG; Start 04/16/19 at 09:00 Quetiapine Fumarate (Seroquel) 50 mg QHS GTB Last administered on 04/19/19 20:32; Admin Dose 50 MG; Start 04/16/19 at 21:00 Losartan Potassium (Cozaar) 25 mg DAILY PO Last administered on 04/20/19 09:09; Admin Dose 25 MG; Start 04/17/19 at 09:00 Alteplase, Recombinant (Cathflo (Activase)) 2 mg MAY REPEAT X1 PRN CATHETER IF CATHETER REMAINS OCCULUDED Last administered on 04/17/19 11:21; Admin Dose 2 MG; Start 04/17/19 at 09:30 Insulin Glargine (Lantus) 10 units DAILY@0800 SC Last administered on 04/20/19 09:12; Admin Dose 10 UNITS; Start 04/17/19 at 11:00 Metoclopramide HCl (Reglan) 10 mg Q6 IV Last administered on 04/20/19 05:39; Admin Dose 10 MG; Start 04/17/19 at 18:00 Albuterol (Ventolin Hfa) 4 puff Q6H RESP THERAPY INH Last administered on 04/20/19 09:25; Admin Dose 4 PUFF; Start 04/18/19 at 02:00 Ipratropium [place] (Atrovent Hfa) 4 puff Q6H RESP THERAPY INH Last administered on 04/20/19 09:15; Admin Dose 4 PUFF; Start 04/18/19 at 02:00 JADE ALSTON Apr 20, 2019 11:05
[2019-04-20] MEDS: MIDAZOLAM (DRIP) 50 mg/50 mL 50 ML IV PRN ×2 (11:32→22:27)
--- NOTE | 2019-04-20 13:50 | CONS ---
Assessment/Plan Assessment/Plan Hospital Course (Demo Recall) No acute changes no fevers patient remains on vent support off antibiotics since this morning MRI of the brain 04/16 revealed acute ischemic small vessel left thalamic infarct. 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 Head atraumatic normocephalic neck is supple chest rise symmetrical breath sounds diminished bases. Heart: S1-S2. Abdomen soft bowel sounds present. Extremities without cyanosis Assessment: 1. S/p sepsis 2. Acute respiratory failure, possibly aspirated 3. MRSA nares colonization 4. Encephalopathy, acute on chronic CVA 5. End-stage renal disease, hemodialysis dependent 6. Dysphagia 7. Chronic sinusitis and bilateral mastoiditis Plan: Remains unchanged, antibiotics dc'd this am, continue vent management per pulmonary Consultation Date/Type/Reason Admit Date/Time Mar 29, 2019 at 13:16 Initial Consult Date 04/07/19 Type of Consult id Requesting Provider: LILLIAN ZHANG MD Date/Time of Note DATE: 04/20/19 TIME: 13:49 Exam/Review of Systems Exam Vitals Vital Signs Date Temp Pulse Resp B/P (MAP) Pulse Ox O2 O2 Flow FiO2 Time Delivery Rate 04/20/19 82 16 129/77 100 11:30 (94) 04/20/19 Mechanical 11:00 Ventilator 04/20/19 34 09:54 04/20/19 98.7 08:00 04/17/19 6.0 18:00 Intake and Output 04/19/19 04/19/19 04/20/19 1515:00 23:00 07:00 IntakeIntake Total 623.5 ml 648.0 ml 592.0 ml OutputOutput Total 3820 ml 20 ml 20 ml BalanceBalance -3196.5 ml 628.0 ml 572.0 ml Results Result Diagram: 04/20/19 0420 04/20/19 0420 Results 24hrs Laboratory Tests Test 04/20/19 01:25 04/20/19 04:20 04/20/19 04:52 04/20/19 12:42 Bedside Glucose 220 258 H 223 H White Blood Count 10.5 Red Blood Count 3.28 L Hemoglobin 9.4 L Hematocrit 30.6 L Mean Corpuscular 93.3 Volume Mean Corpuscular 28.7 L Hemoglobin Mean Corpuscular 30.7 L Hemoglobin Concent Red Cell 17.1 H Distribution Width Platelet Count 330 Mean Platelet Volume 10.4 Immature 0.800 H Granulocytes % Neutrophils % 76.4 Lymphocytes % 11.8 L Monocytes % 6.8 Eosinophils % 3.4 Basophils % 0.8 Nucleated Red Blood 0.0 Cells % Immature 0.080 H Granulocytes # Neutrophils # 8.0 H Lymphocytes # 1.2 Monocytes # 0.7 Eosinophils # 0.4 Basophils # 0.1 Nucleated Red Blood 0.0 Cells # Sodium Level 139 Potassium Level 3.5 Chloride Level 101 Carbon Dioxide Level 30 Anion Gap 8 Blood Urea Nitrogen 15 Creatinine 3.48 #H Glucose Level 260 #H Calcium Level 9.6 Phosphorus Level 2.3 #L Magnesium Level 2.1 Albumin 3.4 Medications Medication Current Medications IV Flush (NS 3 ml) 3 ml PER PROTOCOL IV ; Start 03/29/19 at 13:30 Ondansetron HCl (Zofran Inj) 4 mg Q6H PRN IV NAUSEA/VOMITING Last administered on 04/07/19at 18:53; Admin Dose 4 MG; Start 03/29/19 at 13:30 Acetaminophen (Tylenol Tab) 650 mg Q6H PRN PO .PAIN 1-3 OR TEMP Last administered on 03/31/19at 05:48; Admin Dose 650 MG; Start 03/29/19 at 13:30 Hydralazine HCl (Apresoline) 10 mg Q4H PRN IV sbp >185 Last administered on 04/18/19at 14:27; Admin Dose 10 MG; Start 03/29/19 at 14:00 Miscellaneous Information 1 ea NOTE XX ; Start 03/29/19 at 14:30 Glucose (Glutose) 15 gm Q15M PRN PO DECREASED GLUCOSE; Start 03/29/19 at 14:30 Glucose (Glutose) 22.5 gm Q15M PRN PO DECREASED GLUCOSE; Start 03/29/19 at 14:30 Dextrose (D50w Syringe) 25 ml Q15M PRN IV DECREASED GLUCOSE Last administered on 7/6/19at 05:56; Admin Dose 25 ML; Start 03/29/19 at 14:30; Status Hold Dextrose (D50w Syringe) 50 ml Q15M PRN IV DECREASED GLUCOSE; Start 03/29/19 at 14:30 Glucagon (Glucagen) 1 mg Q15M PRN IM DECREASED GLUCOSE; Start 03/29/19 at 14:30 Glucose (Glutose) 15 gm Q15M PRN BUCCAL DECREASED GLUCOSE; Start 03/29/19 at 14:30 Albumin Human 100 ml @ 100 mls/hr WITH DIALYSIS PRN IV SBP <90 DURING DIALYSIS Last administered on 04/19/19 10:18; Admin Dose 100 MLS/HR; Start 03/29/19 at 17:00 Albuterol/ Ipratropium (Duoneb) 3 ml Q2H RESP THERAPY PRN HHN WHEEZING AND RESP DISTRESS Last administered on 04/09/19 08:52; Admin Dose 3 ML; Start 03/29/19 at 18:00 Lorazepam (Ativan) 0.5 mg Q4H PRN IV AGITATION Last administered on 04/16/19 15:45; Admin Dose 0.5 MG; Start 03/29/19 at 18:00 IV Flush (NS 10 ml) 10 ml Q8 PRN IV IV PROTOCOL; Start 03/29/19 at 18:00 Labetalol HCl (Labetalol) 10 mg Q4H PRN IV sbp >160 Last administered on 04/19/19 21:36; Admin Dose 10 MG; Start 03/30/19 at 09:00 Haloperidol (Haldol) 5 mg Q6H PRN IM agitation Last administered on 03/31/19 00:10; Admin Dose 5 MG; Start 03/30/19 at 10:00 Heparin Sodium (Porcine) (Heparin (1000 Units/ml)) 3,200 unit AFTER DIALYSIS CATHETER Last administered on 04/19/19 12:56; Admin Dose 3,200 UNIT; Start 03/30/19 at 17:00 Atorvastatin Calcium (Lipitor) 40 mg HS NGT Last administered on 04/19/19 20:31; Admin Dose 40 MG; Start 03/31/19 at 21:00 Baclofen (Lioresal) 10 mg BID GTB Last administered on 04/20/19 09:09; Admin Dose 10 MG; Start 03/31/19 at 21:00 Doxazosin Mesylate (Cardura) 2 mg DAILY NGT Last administered on 04/20/19 09:09; Admin Dose 2 MG; Start 03/31/19 at 14:30 Gabapentin (Neurontin) 100 mg QHS PO Last administered on 04/19/19 20:31; Admin Dose 100 MG; Start 03/31/19 at 21:00 Acetaminophen (Tylenol Liquid) 650 mg Q4H PRN PEG MILD PAIN(1-3)OR ELEVATED TEMP Last administered on 04/16/19 08:42; Admin Dose 650 MG; Start 03/31/19 at 16:00 Lactobacillus Acidophilus/ Rhamnosus (Culturelle) 1 cap TID GTB Last administered on 04/20/19 12:21; Admin Dose 1 CAP; Start 04/02/19 at 13:00 Epoetin [place]-epbx (Retacrit (Esrd)) 10,000 unit MoWeFr@1700 SC Last administered on 04/19/19 16:10; Admin Dose 10,000 UNIT; Start 04/03/19 at 19:30 Lansoprazole (Prevacid) 30 mg BID@0600,1800 GTB Last administered on 04/20/19 05:39; Admin Dose 30 MG; Start 04/04/19 at 18:00 Multivit/Ca Carb/ B Cmplx/FA/Prenat (Karena-Geovanni) 1 tab DAILY GTB Last administered on 04/20/19 09:10; Admin Dose 1 TAB; Start 04/04/19 at 11:30 Aspirin (Aspirin) 81 mg DAILY PO Last administered on 04/20/19 09:09; Admin Dose 81 MG; Start 04/05/19 at 09:00 Fentanyl 100 ml @ 2.5 mls/hr TITRATE IV Last administered on 04/19/19 10:10; Admin Dose 2.5 MLS/HR; Start 04/08/19 at 00:00 Midazolam HCl 50 ml @ 1 mls/hr TITRATE PRN IV agitation Last administered on 04/20/19 11:32; Admin Dose 5 MLS/HR; Start 04/08/19 at 00:00 Norepinephrine 250 ml @ 1.875 mls/ hr TITRATE IV Last administered on 04/18/19 21:28; Admin Dose 1.875 MLS/HR; Start 04/08/19 at 00:00 Mupirocin (Bactroban) 1 applic BID TOP Last administered on 04/20/19 09:10; Admin Dose 1 APPLIC; Start 04/09/19 at 21:00 Budesonide (Pulmicort (Neb)) 0.5 mg BID RESP THERAPY HHN Last administered on 04/20/19 10:10; Admin Dose 0.5 MG; Start 04/12/19 at 09:00 Carvedilol (Coreg) 12.5 mg BID NGT Last administered on 04/20/19 09:09; Admin Dose 12.5 MG; Start 04/12/19 at 21:00 Dextrose 1,000 ml @ 50 mls/hr Q20H IV Last administered on 04/13/19 09:08; Admin Dose 75 MLS/HR; Start 04/13/19 at 09:00; Status Hold Insulin Aspart (Novolog Insulin Pen) NOVOLOG *MILD* ALGORI... Q4 SC Last administered on 04/20/19 12:43; Admin Dose 3 UNIT; Start 04/13/19 at 09:00 Clopidogrel Bisulfate (plaVIX) 75 mg DAILY GTB Last administered on 04/20/19 09:09; Admin Dose 75 MG; Start 04/16/19 at 09:00 Quetiapine Fumarate (Seroquel) 50 mg QHS GTB Last administered on 04/19/19 20:32; Admin Dose 50 MG; Start 04/16/19 at 21:00 Losartan Potassium (Cozaar) 25 mg DAILY PO Last administered on 04/20/19 09:09; Admin Dose 25 MG; Start 04/17/19 at 09:00 Alteplase, Recombinant (Cathflo (Activase)) 2 mg MAY REPEAT X1 PRN CATHETER IF CATHETER REMAINS OCCULUDED Last administered on 04/17/19 11:21; Admin Dose 2 MG; Start 04/17/19 at 09:30 Insulin Glargine (Lantus) 10 units DAILY@0800 SC Last administered on 04/20/19 09:12; Admin Dose 10 UNITS; Start 04/17/19 at 11:00 Metoclopramide HCl (Reglan) 10 mg Q6 IV Last administered on 04/20/19 12:21; Admin Dose 10 MG; Start 04/17/19 at 18:00 Albuterol (Ventolin Hfa) 4 puff Q6H RESP THERAPY INH Last administered on 04/20/19 09:25; Admin Dose 4 PUFF; Start 04/18/19 at 02:00 Ipratropium [place] (Atrovent Hfa) 4 puff Q6H RESP THERAPY INH Last administered on 04/20/19 09:15; Admin Dose 4 PUFF; Start 04/18/19 at 02:00 UMA COLINDRES NP Apr 20, 2019 13:50
--- NOTE | 2019-04-20 14:21 | PN ---
DATE: 04/20/2019 SUBJECTIVE: Chart reviewed. Events noted. Cardiology, nephrology and ID followup noted. The patie nt remains orally intubated, saturating 99%. PHYSICAL EXAMINATION: VITAL SIGNS: Blood pressure 129/77, pulse 82, respirations 16, temperature afebrile. HEENT: Pupils are equal and react to light, orally intubated. NECK: Supple, no JVD noted, no cervical adenopathy noted. LUNGS: Fair breath sounds bilaterally. Few scattered rhonchi. CARDIOVASCULAR: S1, S2 normal. ABDOMEN: Soft, nontender. No organomegaly or masses noted. EXTREMITIES: No clubbing, cyanosis, or edema noted. NEUROLOGICAL: Sedated. LABORATORY DATA: WBC 10.5, hemoglobin 9.4, hematocrit 30.6, platelets 330. Sodium 139, potassium 3. 5, chloride 101, CO2 30, BUN 15, creatinine 3.48, glucose 260. IMPRESSION: 1. Acute hypoxemic respiratory failure, status post extubation and reintubation. 2. Status post septic shock. 3. End-stage renal disease on hemodialysis. 4. Anemia. 5. Encephalopathy. RECOMMENDATIONS: 1. Continue vent support for now. 2. Hemodialysis per nephrology. 3. Continue antibiotics. 4. Likely may need a tracheostomy. 5. Above discussed with the staff. Dictated By: BUCK SHELDON MD, MA/JORDAN Conf#: [id number] DID#: [id number] CC: STEWART WINTER MD;*EndCC*
[2019-04-20] MEDS: ALBUMIN HUMAN 25% 100 ML IV PRN (14:37)
--- NOTE | 2019-04-20 15:16 | PN ---
Date/Time of Note Date/Time of Note DATE: 04/20/19 TIME: 15:08 Assessment/Plan VTE Prophylaxis Risk score (from Nsg)>0 risk: 9 SCD applied (from Nsg): Yes Pharmacological prophylaxis: other Lines/Catheters IV Catheter Type (from Nrsg): PICC Line Central line still needed: Yes Urinary Cath still in place: Yes Reason Cath still needed: urinary retention Assessment/Plan Assessment/Plan 1. Acute hypoxic respiratory failure - patient remains intubated - Pulmonology consultation appreciated and will continue vent at this time. Family will need to make a decision regarding trach placement - patient was extubated 04/17 and needed to be reintubated a few hours later due to desaturation and inability to clear his secretions 2. Acute left thalamic stroke - Neuro on board and appreciate consultation - Carotid US noted with stenosis <70%. Will continue plavix at this time given patient not stable for any type of intervention but will need to be assessed for CEA in the future 3. HCAP/Aspiration Pneumonia- resolving - CXR with no signs of PNA - Pulm on board and appreciate recommendations - ID on board for antibiotic management 4. Acute on chronic encephalopathy - Neurology consultation appreciated. 5. Anemia - stable - GI consultation appreciated and EGD revealed moderate distal esophagitis and gastritis and duodenitis. Colonoscopy showed internal hemorrhoids. Will need repeat colonoscopy in the future 6. End-stage renal disease on hemodialysis - Nephrology on board and appreciate consultation. Continue HD 7. Coronary artery disease status post CABG history - continue home medications - continue on Plavix and aspirin 8. Epilepsy - Continue Keppra - EEG noted with slowing 9. History of CVA with residual left-sided deficit and more recent CVA - New left thalamic stroke appreciated on repeat MRI. - Neurology consultation appreciated 10. BPH 11. Septic shock, intermittent- resolved - off pressor support - Most likely secondary to aspiration pneumonia - ID on board and appreciate recommendations. continue on current IV antibiotics 12. Disposition - Continue monitoring in ICU for ventilator management. Family will need to make a decision regarding trach placement >30 minutes of critical care time spent with patient Result Diagram: 04/20/19 0420 04/20/19 042 Results 24hrs Laboratory Tests Test 04/20/19 01:25 04/20/19 04:20 04/20/19 04:52 04/20/19 12:42 Bedside Glucose 220 258 H 223 H White Blood Count 10.5 Red Blood Count 3.28 L Hemoglobin 9.4 L Hematocrit 30.6 L Mean Corpuscular 93.3 Volume Mean Corpuscular 28.7 L Hemoglobin Mean Corpuscular 30.7 L Hemoglobin Concent Red Cell 17.1 H Distribution Width Platelet Count 330 Mean Platelet Volume 10.4 Immature 0.800 H Granulocytes % Neutrophils % 76.4 Lymphocytes % 11.8 L Monocytes % 6.8 Eosinophils % 3.4 Basophils % 0.8 Nucleated Red Blood 0.0 Cells % Immature 0.080 H Granulocytes # Neutrophils # 8.0 H Lymphocytes # 1.2 Monocytes # 0.7 Eosinophils # 0.4 Basophils # 0.1 Nucleated Red Blood 0.0 Cells # Sodium Level 139 Potassium Level 3.5 Chloride Level 101 Carbon Dioxide Level 30 Anion Gap 8 Blood Urea Nitrogen 15 Creatinine 3.48 #H Glucose Level 260 #H Calcium Level 9.6 Phosphorus Level 2.3 #L Magnesium Level 2.1 Albumin 3.4 Subjective 24 Hr Interval Summary Free Text/Dictation Patient remains intubated and sedated. No acute overnight events. HD planned for today. Exam/Review of Systems Exam Vitals Vital Signs Date Temp Pulse Resp B/P (MAP) Pulse Ox O2 O2 Flow FiO2 Time Delivery Rate 04/20/19 72 14:45 04/20/19 16 154/82 98 Mechanical 14:41 (106) Ventilator T Tube 04/20/19 32 13:49 04/20/19 98.7 12:00 04/17/19 6.0 18:00 Intake and Output 04/19/19 04/19/19 04/20/19 1515:00 23:00 07:00 IntakeIntake Total 623.5 ml 648.0 ml 592.0 ml OutputOutput Total 3820 ml 20 ml 20 ml BalanceBalance -3196.5 ml 628.0 ml 572.0 ml Exam General: Patient is intubated. no acute distress Head: Normocephalic atraumatic Eyes: EOMI, pupils reactive to light Neck: Supple, nontender, midline Respiratory: Clear to auscultation bilaterally. diminished at bases. no wheezing appreciated Cardiovascular: regular rate and rhythm, no obvious murmurs Gastrointestinal: soft, non-tender to palpation, nondistended, bowel sounds heard. Ext: moving RUE. no cyanosis, clubbing or edema Skin: No new skin lesions Results Results 24hrs Laboratory Tests Test 04/20/19 01:25 04/20/19 04:20 04/20/19 04:52 04/20/19 12:42 Bedside Glucose 220 258 H 223 H White Blood Count 10.5 Red Blood Count 3.28 L Hemoglobin 9.4 L Hematocrit 30.6 L Mean Corpuscular 93.3 Volume Mean Corpuscular 28.7 L Hemoglobin Mean Corpuscular 30.7 L Hemoglobin Concent Red Cell 17.1 H Distribution Width Platelet Count 330 Mean Platelet Volume 10.4 Immature 0.800 H Granulocytes % Neutrophils % 76.4 Lymphocytes % 11.8 L Monocytes % 6.8 Eosinophils % 3.4 Basophils % 0.8 Nucleated Red Blood 0.0 Cells % Immature 0.080 H Granulocytes # Neutrophils # 8.0 H Lymphocytes # 1.2 Monocytes # 0.7 Eosinophils # 0.4 Basophils # 0.1 Nucleated Red Blood 0.0 Cells # Sodium Level 139 Potassium Level 3.5 Chloride Level 101 Carbon Dioxide Level 30 Anion Gap 8 Blood Urea Nitrogen 15 Creatinine 3.48 #H Glucose Level 260 #H Calcium Level 9.6 Phosphorus Level 2.3 #L Magnesium Level 2.1 Albumin 3.4 Medications Medication Current Medications IV Flush (NS 3 ml) 3 ml PER PROTOCOL IV ; Start 03/29/19 at 13:30 Ondansetron HCl (Zofran Inj) 4 mg Q6H PRN IV NAUSEA/VOMITING Last administered on 04/07/19at 18:53; Admin Dose 4 MG; Start 03/29/19 at 13:30 Acetaminophen (Tylenol Tab) 650 mg Q6H PRN PO .PAIN 1-3 OR TEMP Last administered on 03/31/19at 05:48; Admin Dose 650 MG; Start 03/29/19 at 13:30 Hydralazine HCl (Apresoline) 10 mg Q4H PRN IV sbp >185 Last administered on 04/18/19at 14:27; Admin Dose 10 MG; Start 03/29/19 at 14:00 Miscellaneous Information 1 ea NOTE XX ; Start 03/29/19 at 14:30 Glucose (Glutose) 15 gm Q15M PRN PO DECREASED GLUCOSE; Start 03/29/19 at 14:30 Glucose (Glutose) 22.5 gm Q15M PRN PO DECREASED GLUCOSE; Start 03/29/19 at 14:30 Dextrose (D50w Syringe) 25 ml Q15M PRN IV DECREASED GLUCOSE Last administered on 04/13/19 05:56; Admin Dose 25 ML; Start 03/29/19 at 14:30; Status Hold Dextrose (D50w Syringe) 50 ml Q15M PRN IV DECREASED GLUCOSE; Start 03/29/19 at 14:30 Glucagon (Glucagen) 1 mg Q15M PRN IM DECREASED GLUCOSE; Start 03/29/19 at 14:30 Glucose (Glutose) 15 gm Q15M PRN BUCCAL DECREASED GLUCOSE; Start 03/29/19 at 14:30 Albumin Human 100 ml @ 100 mls/hr WITH DIALYSIS PRN IV SBP <90 DURING DIALYSIS Last administered on 04/20/19at 14:37; Admin Dose 100 MLS/HR; Start 03/29/19 at 17:00 Albuterol/ Ipratropium (Duoneb) 3 ml Q2H RESP THERAPY PRN HHN WHEEZING AND RESP DISTRESS Last administered on 04/09/19at 08:52; Admin Dose 3 ML; Start 03/29/19 at 18:00 Lorazepam (Ativan) 0.5 mg Q4H PRN IV AGITATION Last administered on 04/16/19at 15:45; Admin Dose 0.5 MG; Start 03/29/19 at 18:00 IV Flush (NS 10 ml) 10 ml Q8 PRN IV IV PROTOCOL; Start 03/29/19 at 18:00 Labetalol HCl (Labetalol) 10 mg Q4H PRN IV sbp >160 Last administered on 04/19/19at 21:36; Admin Dose 10 MG; Start 03/30/19 at 09:00 Haloperidol (Haldol) 5 mg Q6H PRN IM agitation Last administered on 03/31/19at 00:10; Admin Dose 5 MG; Start 03/30/19 at 10:00 Heparin Sodium (Porcine) (Heparin (1000 Units/ml)) 3,200 unit AFTER DIALYSIS CATHETER Last administered on 04/19/19at 12:56; Admin Dose 3,200 UNIT; Start 03/30/19 at 17:00 Atorvastatin Calcium (Lipitor) 40 mg HS NGT Last administered on 04/19/19at 20: 31; Admin Dose 40 MG; Start 03/31/19 at 21:00 Baclofen (Lioresal) 10 mg BID GTB Last administered on 04/20/19 09:09; Admin Dose 10 MG; Start 03/31/19 at 21:00 Doxazosin Mesylate (Cardura) 2 mg DAILY NGT Last administered on 04/20/19 09:09; Admin Dose 2 MG; Start 03/31/19 at 14:30 Gabapentin (Neurontin) 100 mg QHS PO Last administered on 04/19/19 20:31; Admin Dose 100 MG; Start 03/31/19 at 21:00 Acetaminophen (Tylenol Liquid) 650 mg Q4H PRN PEG MILD PAIN(1-3)OR ELEVATED TEMP Last administered on 04/16/19 08:42; Admin Dose 650 MG; Start 03/31/19 at 16:00 Lactobacillus Acidophilus/ Rhamnosus (Culturelle) 1 cap TID GTB Last administered on 04/20/19 12:21; Admin Dose 1 CAP; Start 04/02/19 at 13:00 Epoetin [place]-epbx (Retacrit (Esrd)) 10,000 unit MoWeFr@1700 SC Last administered on 04/19/19 16:10; Admin Dose 10,000 UNIT; Start 04/03/19 at 19:30 Lansoprazole (Prevacid) 30 mg BID@0600,1800 GTB Last administered on 04/20/19 05:39; Admin Dose 30 MG; Start 04/04/19 at 18:00 Multivit/Ca Carb/ B Cmplx/FA/Prenat (Karena-Geovanni) 1 tab DAILY GTB Last administered on 04/20/19 09:10; Admin Dose 1 TAB; Start 04/04/19 at 11:30 Aspirin (Aspirin) 81 mg DAILY PO Last administered on 04/20/19 09:09; Admin Dose 81 MG; Start 04/05/19 at 09:00 Fentanyl 100 ml @ 2.5 mls/hr TITRATE IV Last administered on 04/19/19 10:10; Admin Dose 2.5 MLS/HR; Start 04/08/19 at 00:00 Midazolam HCl 50 ml @ 1 mls/hr TITRATE PRN IV agitation Last administered on 04/20/19 11:32; Admin Dose 5 MLS/HR; Start 04/08/19 at 00:00 Norepinephrine 250 ml @ 1.875 mls/ hr TITRATE IV Last administered on 04/18/19 21:28; Admin Dose 1.875 MLS/HR; Start 04/08/19 at 00:00 Mupirocin (Bactroban) 1 applic BID TOP Last administered on 04/20/19 09:10; Admin Dose 1 APPLIC; Start 04/09/19 at 21:00 Budesonide (Pulmicort (Neb)) 0.5 mg BID RESP THERAPY HHN Last administered on 04/20/19 10:10; Admin Dose 0.5 MG; Start 04/12/19 at 09:00 Carvedilol (Coreg) 12.5 mg BID NGT Last administered on 04/20/19 09:09; Admin Dose 12.5 MG; Start 04/12/19 at 21:00 Dextrose 1,000 ml @ 50 mls/hr Q20H IV Last administered on 04/13/19 09:08; Admin Dose 75 MLS/HR; Start 04/13/19 at 09:00; Status Hold Insulin Aspart (Novolog Insulin Pen) NOVOLOG *MILD* ALGORI... Q4 SC Last administered on 04/20/19 12:43; Admin Dose 3 UNIT; Start 04/13/19 at 09:00 Clopidogrel Bisulfate (plaVIX) 75 mg DAILY GTB Last administered on 04/20/19 09:09; Admin Dose 75 MG; Start 04/16/19 at 09:00 Quetiapine Fumarate (Seroquel) 50 mg QHS GTB Last administered on 04/19/19 20:32; Admin Dose 50 MG; Start 04/16/19 at 21:00 Losartan Potassium (Cozaar) 25 mg DAILY PO Last administered on 04/20/19 09:09; Admin Dose 25 MG; Start 04/17/19 at 09:00 Alteplase, Recombinant (Cathflo (Activase)) 2 mg MAY REPEAT X1 PRN CATHETER IF CATHETER REMAINS OCCULUDED Last administered on 04/17/19 11:21; Admin Dose 2 MG; Start 04/17/19 at 09:30 Insulin Glargine (Lantus) 10 units DAILY@0800 SC Last administered on 04/20/19 09:12; Admin Dose 10 UNITS; Start 04/17/19 at 11:00 Metoclopramide HCl (Reglan) 10 mg Q6 IV Last administered on 04/20/19 12:21; Admin Dose 10 MG; Start 04/17/19 at 18:00 Albuterol (Ventolin Hfa) 4 puff Q6H RESP THERAPY INH Last administered on 04/20/19 09:25; Admin Dose 4 PUFF; Start 04/18/19 at 02:00 Ipratropium [place] (Atrovent Hfa) 4 puff Q6H RESP THERAPY INH Last administered on 04/20/19 09:15; Admin Dose 4 PUFF; Start 04/18/19 at 02:00 LILLIAN ZHANG MD Apr 20, 2019 15:16
[2019-04-20] MEDS: HEPARIN 1000 UNITS/ML 10 ML INJ CATHETER SCH (17:16)
[2019-04-20] MEDS: QUETIAPINE 25 MG TAB GTB SCH (20:53)
[2019-04-20] MEDS: GABAPENTIN 100 MG CAP PO SCH (20:53)
[2019-04-20] MEDS: ATORVASTATIN 40 MG TAB NGT SCH (20:53)
[2019-04-20] MEDS: LABETALOL HCL 20MG INJ IV PRN (21:32)
[2019-04-20] MEDS: DOCUSATE SODIUM 10 MG/ML (10ML CUP) PEG SCH (23:48)
[2019-04-21] VITALS (82 sets, daily range): BP systolic 68–198; BP diastolic 46–116; PULSE 71–103; RESP 0–27
[2019-04-21] MEDS ORDERED: LABETALOL HCL 20MG INJ IV ONE
[2019-04-21] MEDS ORDERED: NITROGLYCERIN 50 MG/D5W (PMX) 250 ML ONE (00:19)
[2019-04-21] MEDS ORDERED: NITROGLYCERIN 50 MG/D5W (PMX) 250 ML IV SCH ×2 (00:30)
[2019-04-21] MEDS: ALBUTEROL HFA 8 GM INHALER INH SCH ×4 (01:09→19:32)
[2019-04-21] MEDS: IPRATROPIUM (HFA) 12.9 GM INHALER INH SCH ×4 (01:09→19:32)
[2019-04-21] MEDS: INSULIN ASPART [NOVOLOG] 3 ML PEN SC SCH ×6 (01:21→21:19)
[2019-04-21] MEDS: FENTAnyl (DRIP) 1000 mcg/100mL 100 ML IV SCH (02:38)
[2019-04-21] MEDS: METOCLOPRAMIDE 10 MG INJ IV SCH ×4 (06:13→23:45)
[2019-04-21] MEDS: LANSOPRAZOLE 30 MG CAP GTB SCH ×2 (06:14→17:30)
--- NOTE | 2019-04-21 06:53 | PN ---
Date/Time of Note Date/Time of Note DATE: 04/21/19 TIME: 06:52 Assessment/Plan VTE Prophylaxis Risk score (from Ns)>0 risk: 8 SCD applied (from Ns): Yes SCD contraindicated: other Pharmacological prophylaxis: other Pharm contraindication: other Lines/Catheters IV C[facility]ter Type (from [facility] Permacath Urinary Cath still in place: Yes Reason Cath still needed: urinary retention Assessment/Plan Assessment/Plan 1. Acute hypoxemic respiratory failure intubated on ventilator - persistently failed weaning 2. Accelerated HTN 3. ESRD on HD - MWF schedule at [facility] center 4. H/o CAD s/p CABG before 5. H/o CAD with previous recent stent placement in 09/2018 6. h/o HTN 7. H/o DM II 8. h/o HL 9. 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 H/o BPH Plan: s/p HD yesterday2.2 L removed, plan for Extra HD today evening - then will continue pt on MWF schedule while being in hospital Patient was extubated on 04/17/19 afternoon after meeting adequate criteria on CP AP mode but then had to be reintubated for recurrent respiratory failure few hours later. Patient likely unable to protect his airway - pt will need Tracheostomy and pt family is leaning in that direction pt is on Coreg 12.5 mg pO BID, losartan 25 mg po daily and HYdralazine 50mg PO TID , cardura 2 mg po daily IV abx amikacin, Flagyl renally dose all abx and monitor electrolytes D10W at 50 cc/hr Epogen 69684 units SQ MWF will follow up Result Diagram: 04/21/19 0430 04/21/19 0420 Results 24hrs Laboratory Tests Test 04/20/19 12:42 04/20/19 17:27 04/20/19 20:52 04/21/19 01:18 Bedside Glucose 223 H 119 116 147 Test 04/21/19 04:20 04/21/19 04:30 04/21/19 05:55 Sodium Level 136 Potassium Level 4.4 Chloride Level 97 Carbon Dioxide Level 28 Anion Gap 11 Blood Urea Nitrogen 14 Creatinine 2.99 H Glucose Level 207 Calcium Level 9.7 Phosphorus Level 3.5 Magnesium Level 1.9 Albumin 3.8 White Blood Count 11.5 H Red Blood Count 3.28 L Hemoglobin 9.6 L Hematocrit 30.6 L Mean Corpuscular 93.3 Volume Mean Corpuscular 29.3 Hemoglobin Mean Corpuscular 31.4 L Hemoglobin Concent Red Cell 17.4 H Distribution Width Platelet Count 393 Mean Platelet Volume 10.4 Immature 1.000 H Granulocytes % Neutrophils % 84.2 H Lymphocytes % 8.7 L Monocytes % 4.8 Eosinophils % 0.8 Basophils % 0.5 Nucleated Red Blood 0.0 Cells % Immature 0.120 H Granulocytes # Neutrophils # 9.7 H Lymphocytes # 1.0 Monocytes # 0.6 Eosinophils # 0.1 Basophils # 0.1 Nucleated Red Blood 0.0 Cells # Bedside Glucose 152 Exam/Review of Systems Exam Vitals Vital Signs Date Temp Pulse Resp B/P (MAP) Pulse Ox O2 O2 Flow FiO2 Time Delivery Rate 04/21/19 95 16 98 35 05:20 04/21/19 162/97 Mechanical 04:45 (118) Ventilator 04/21/19 98.5 00:00 04/17/19 6.0 18:00 Intake and Output 04/20/19 04/20/19 04/21/19 1515:00 23:00 07:00 IntakeIntake Total 170.91 ml 331.75 ml 111.5 ml OutputOutput Total 210 ml 3010 ml BalanceBalance -39.09 ml -2678.25 ml 111.5 ml Results Results 24hrs Laboratory Tests Test 04/20/19 12:42 04/20/19 17:27 04/20/19 20:52 04/21/19 01:18 Bedside Glucose 223 H 119 116 147 Test 04/21/19 04:20 04/21/19 04:30 04/21/19 05:55 Sodium Level 136 Potassium Level 4.4 Chloride Level 97 Carbon Dioxide Level 28 Anion Gap 11 Blood Urea Nitrogen 14 Creatinine 2.99 H Glucose Level 207 Calcium Level 9.7 Phosphorus Level 3.5 Magnesium Level 1.9 Albumin 3.8 White Blood Count 11.5 H Red Blood Count 3.28 L Hemoglobin 9.6 L Hematocrit 30.6 L Mean Corpuscular 93.3 Volume Mean Corpuscular 29.3 Hemoglobin Mean Corpuscular 31.4 L Hemoglobin Concent Red Cell 17.4 H Distribution Width Platelet Count 393 Mean Platelet Volume 10.4 Immature 1.000 H Granulocytes % Neutrophils % 84.2 H Lymphocytes % 8.7 L Monocytes % 4.8 Eosinophils % 0.8 Basophils % 0.5 Nucleated Red Blood 0.0 Cells % Immature 0.120 H Granulocytes # Neutrophils # 9.7 H Lymphocytes # 1.0 Monocytes # 0.6 Eosinophils # 0.1 Basophils # 0.1 Nucleated Red Blood 0.0 Cells # Bedside Glucose 152 Medications Medication Current Medications IV Flush (NS 3 ml) 3 ml PER PROTOCOL IV ; Start 03/29/19 at 13:30 Ondansetron HCl (Zofran Inj) 4 mg Q6H PRN IV NAUSEA/VOMITING Last administered on 04/07/19 18:53; Admin Dose 4 MG; Start 03/29/19 at 13:30 Acetaminophen (Tylenol Tab) 650 mg Q6H PRN PO .PAIN 1-3 OR TEMP Last administered on 03/31/19 05:48; Admin Dose 650 MG; Start 03/29/19 at 13:30 Hydralazine HCl (Apresoline) 10 mg Q4H PRN IV sbp >185 Last administered on 04/18/19at 14:27; Admin Dose 10 MG; Start 03/29/19 at 14:00 Miscellaneous Information 1 ea NOTE XX ; Start 03/29/19 at 14:30 Glucose (Glutose) 15 gm Q15M PRN PO DECREASED GLUCOSE; Start 03/29/19 at 14:30 Glucose (Glutose) 22.5 gm Q15M PRN PO DECREASED GLUCOSE; Start 03/29/19 at 14:30 Dextrose (D50w Syringe) 25 ml Q15M PRN IV DECREASED GLUCOSE Last administered on 04/13/19 05:56; Admin Dose 25 ML; Start 03/29/19 at 14:30; Status Hold Dextrose (D50w Syringe) 50 ml Q15M PRN IV DECREASED GLUCOSE; Start 03/29/19 at 14:30 Glucagon (Glucagen) 1 mg Q15M PRN IM DECREASED GLUCOSE; Start 03/29/19 at 14:30 Glucose (Glutose) 15 gm Q15M PRN BUCCAL DECREASED GLUCOSE; Start 03/29/19 at 14:30 Albumin Human 100 ml @ 100 mls/hr WITH DIALYSIS PRN IV SBP <90 DURING DIALYSIS Last administered on 04/20/19 14:37; Admin Dose 100 MLS/HR; Start 03/29/19 at 17:00 Albuterol/ Ipratropium (Duoneb) 3 ml Q2H RESP THERAPY PRN HHN WHEEZING AND RESP DISTRESS Last administered on 04/09/19 08:52; Admin Dose 3 ML; Start 03/29/19 at 18:00 Lorazepam (Ativan) 0.5 mg Q4H PRN IV AGITATION Last administered on 04/16/19 15:45; Admin Dose 0.5 MG; Start 03/29/19 at 18:00 IV Flush (NS 10 ml) 10 ml Q8 PRN IV IV PROTOCOL; Start 03/29/19 at 18:00 Labetalol HCl (Labetalol) 10 mg Q4H PRN IV sbp >160 Last administered on 04/20/19 21:32; Admin Dose 10 MG; Start 03/30/19 at 09:00 Haloperidol (Haldol) 5 mg Q6H PRN IM agitation Last administered on 03/31/19 00:10; Admin Dose 5 MG; Start 03/30/19 at 10:00 Heparin Sodium (Porcine) (Heparin (1000 Units/ml)) 3,200 unit AFTER DIALYSIS CATHETER Last administered on 04/20/19 17:16; Admin Dose 3,200 UNIT; Start 03/30/19 at 17:00 Atorvastatin Calcium (Lipitor) 40 mg HS NGT Last administered on 04/20/19 20:53; Admin Dose 40 MG; Start 03/31/19 at 21:00 Baclofen (Lioresal) 10 mg BID GTB Last administered on 04/20/19 20:53; Admin Dose 10 MG; Start 03/31/19 at 21:00 Doxazosin Mesylate (Cardura) 2 mg DAILY NGT Last administered on 04/20/19 09:09; Admin Dose 2 MG; Start 03/31/19 at 14:30 Gabapentin (Neurontin) 100 mg QHS PO Last administered on 04/20/19 20:53; Admin Dose 100 MG; Start 03/31/19 at 21:00 Acetaminophen (Tylenol Liquid) 650 mg Q4H PRN PEG MILD PAIN(1-3)OR ELEVATED TEMP Last administered on 04/16/19 08:42; Admin Dose 650 MG; Start 03/31/19 at 1 6:00 Lactobacillus Acidophilus/ Rhamnosus (Culturelle) 1 cap TID GTB Last administered on 04/20/19 20:53; Admin Dose 1 CAP; Start 04/02/19 at 13:00 Epoetin [place]-epbx (Retacrit (Esrd)) 10,000 unit MoWeFr@1700 SC Last administered on 04/19/19 16:10; Admin Dose 10,000 UNIT; Start 04/03/19 at 19:30 Lansoprazole (Prevacid) 30 mg BID@0600,1800 GTB Last administered on 04/21/19 06:14; Admin Dose 30 MG; Start 04/04/19 at 18:00 Multivit/Ca Carb/ B Cmplx/FA/Prenat (Karena-Geovanni) 1 tab DAILY GTB Last a dministered on 04/20/19 09:10; Admin Dose 1 TAB; Start 04/04/19 at 11:30 Aspirin (Aspirin) 81 mg DAILY PO Last administered on 04/20/19 09:09; Admin Dose 81 MG; Start 04/05/19 at 09:00 Fentanyl 100 ml @ 2.5 mls/hr TITRATE IV Last administered on 04/21/19 02:38; Admin Dose 4 MLS/HR; Start 04/08/19 at 00:00 Midazolam HCl 50 ml @ 1 mls/hr TITRATE PRN IV agitation Last administered on 04/20/19 22:27; Admin Dose 6 MLS/HR; Start 04/08/19 at 00:00 Norepinephrine 250 ml @ 1.875 mls/ hr TITRATE IV Last administered on 04/18/19 21:28; Admin Dose 1.875 MLS/HR; Start 04/08/19 at 00:00 Mupirocin (Bactroban) 1 applic BID TOP Last administered on 04/20/19 20:58; Admin Dose 1 APPLIC; Start 04/09/19 at 21:00 Budesonide (Pulmicort (Neb)) 0.5 mg BID RESP THERAPY HHN Last administered on 04/20/19 19:21; Admin Dose 0.5 MG; Start 04/12/19 at 09:00 Carvedilol (Coreg) 12.5 mg BID NGT Last administered on 04/20/19 20:53; Admin Dose 12.5 MG; Start 04/12/19 at 21:00 Dextrose 1,000 ml @ 50 mls/hr Q20H IV Last administered on 04/13/19 09:08; Admin Dose 75 MLS/HR; Start 04/13/19 at 09:00; Status Hold Insulin Aspart (Novolog Insulin Pen) NOVOLOG *MILD* ALGORI... Q4 SC Last administered on 04/21/19 05:58; Admin Dose 1 UNIT; Start 04/13/19 at 09:00 Clopidogrel Bisulfate (plaVIX) 75 mg DAILY GTB Last administered on 04/20/19 09:09; Admin Dose 75 MG; Start 04/16/19 at 09:00 Quetiapine Fumarate (Seroquel) 50 mg QHS GTB Last administered on 04/20/19 20:53; Admin Dose 50 MG; Start 04/16/19 at 21:00 Losartan Potassium (Cozaar) 25 mg DAILY PO Last administered on 04/20/19 09:09; Admin Dose 25 MG; Start 04/17/19 at 09:00 Alteplase, Recombinant (Cathflo (Activase)) 2 mg MAY REPEAT X1 PRN CATHETER IF CATHETER REMAINS OCCULUDED Last administered on 04/17/19 11:21; Admin Dose 2 MG; Start 04/17/19 at 09:30 Insulin Glargine (Lantus) 10 units DAILY@0800 SC Last administered on 04/20/19 09:12; Admin Dose 10 UNITS; Start 04/17/19 at 11:00 Metoclopramide HCl (Reglan) 10 mg Q6 IV Last administered on 04/21/19 06:13; Admin Dose 10 MG; Start 04/17/19 at 18:00 Albuterol (Ventolin Hfa) 4 puff Q6H RESP THERAPY INH Last administered on 04/21/19 01:09; Admin Dose 4 PUFF; Start 04/18/19 at 02:00 Ipratropium [place] (Atrovent Hfa) 4 puff Q6H RESP THERAPY INH Last administered on 04/21/19 01:09; Admin Dose 4 PUFF; Start 04/18/19 at 02:00 Docusate Sodium (Colace Liquid Cup) 100 mg BID PEG Last administered on 04/20/19 23:48; Admin Dose 100 MG; Start 04/20/19 at 23:00 Polyethylene Glycol (Miralax) 17 gm DAILY PEG ; Start 04/21/19 at 09:00 Nitroglycerin/ Dextrose 250 ml @ 1.5 mls/hr TITRATE IV Last administered on 04/21/19at 00:24; Admin Dose 1.5 MLS/HR; Start 04/21/19 at 00:30 JADE ALSTON Apr 21, 2019 06:53
[2019-04-21] MEDS: MIDAZOLAM (DRIP) 50 mg/50 mL 50 ML IV PRN (07:50)
[2019-04-21] MEDS: BUDESONIDE (NEB) 0.5MG/2ML AMP HHN SCH ×2 (08:21→19:32)
[2019-04-21] MEDS: INSULIN GLARGINE [LANTus] (100 UNITS/ML) SYG SC SCH (09:22)
[2019-04-21] MEDS: MULTIVIT/CA CARB/B CMPLX/FA TAB GTB SCH (10:00)
[2019-04-21] MEDS: DOXAZOSIN 2 MG TAB NGT SCH (10:01)
[2019-04-21] MEDS: LACTOBACILLUS RHAMNOSUS CAP GTB SCH ×3 (10:01→21:09)
[2019-04-21] MEDS: LOSARTAN 25 MG TAB PO SCH (10:01)
[2019-04-21] MEDS: ASPIRIN 81 MG TAB PO SCH (10:02)
[2019-04-21] MEDS: POLYETHYLENE GLYCOL 17 GM PACKET PEG SCH (10:02)
[2019-04-21] MEDS: BACLOFEN 10 MG TAB GTB SCH ×2 (10:02→21:09)
[2019-04-21] MEDS: CLOPIDOGREL 75 MG TAB GTB SCH (10:02)
[2019-04-21] MEDS: DOCUSATE SODIUM 10 MG/ML (10ML CUP) PEG SCH ×2 (10:02→21:00)
[2019-04-21] MEDS: BALSAM PERU/CASTOR OIL 60 GM TUBE TOP SCH (10:03)
[2019-04-21] MEDS: MUPIROCIN 2% 22 GM OINT TOP SCH ×2 (10:03→21:10)
--- NOTE | 2019-04-21 12:14 | PN ---
Date/Time of Note Date/Time of Note DATE: 04/21/19 TIME: 12:04 Assessment/Plan VTE Prophylaxis Risk score (from Nsg)>0 risk: 8 SCD applied (from Nsg): Yes Pharmacological prophylaxis: other Lines/Catheters IV Catheter Type (from Nrsg): Permacath Urinary Cath still in place: Yes Reason Cath still needed: urinary retention Assessment/Plan Assessment/Plan 1. Acute hypoxic respiratory failure - patient remains intubated and too weak to clear his secretions making him a poor candidate for extubation. still undecided regarding trach placement - Pulmonology consultation appreciated and will continue vent at this time. - patient was extubated 04/17 and needed to be reintubated a few hours later due to desaturation and inability to clear his secretions 2. Acute left thalamic stroke- stable - Neuro on board and appreciate consultation - Carotid US noted with stenosis <70%. Will continue plavix at this time given patient not stable for any type of intervention but will need to be assessed for CEA in the future 3. HCAP/Aspiration Pneumonia- resolving - CXR with no signs of PNA - Pulm on board and appreciate recommendations - ID on board for antibiotic management 4. Acute on chronic encephalopathy - Neurology consultation appreciated. 5. Anemia - stable - GI consultation appreciated and EGD revealed moderate distal esophagitis and gastritis and duodenitis. Colonoscopy showed internal hemorrhoids. Will need repeat colonoscopy in the future 6. End-stage renal disease on hemodialysis - Nephrology on board and appreciate consultation. Continue HD 7. Coronary artery disease status post CABG history - continue home medications - continue on Plavix and aspirin 8. Epilepsy - Continue Keppra - EEG noted with slowing 9. History of CVA with residual left-sided deficit and more recent CVA - New left thalamic stroke appreciated on repeat MRI. - Neurology consultation appreciated 10. BPH 11. Septic shock, intermittent- resolved - keeps fluctuating from HTN to hypotensive. Pressors PRN to maintain MAP 65 - Most likely secondary to aspiration pneumonia - ID on board and appreciate recommendations. continue on current IV antibiotics 12. Disposition - Continue monitoring in ICU for ventilator management. Family aware they will need to make a decision regarding trach placement soon >30 minutes of critical care time spent with patient Result Diagram: 04/21/19 0430 04/21/19 0420 Results 24hrs Laboratory Tests Test 04/20/19 12:42 04/20/19 17:27 04/20/19 20:52 04/21/19 01:18 Bedside Glucose 223 H 119 116 147 Test 04/21/19 04:20 04/21/19 04:30 04/21/19 05:55 04/21/19 09:14 Sodium Level 136 Potassium Level 4.4 Chloride Level 97 Carbon Dioxide Level 28 Anion Gap 11 Blood Urea Nitrogen 14 Creatinine 2.99 H Glucose Level 207 Calcium Level 9.7 Phosphorus Level 3.5 Magnesium Level 1.9 Albumin 3.8 White Blood Count 11.5 H Red Blood Count 3.28 L Hemoglobin 9.6 L Hematocrit 30.6 L Mean Corpuscular 93.3 Volume Mean Corpuscular 29.3 Hemoglobin Mean Corpuscular 31.4 L Hemoglobin Concent Red Cell 17.4 H Distribution Width Platelet Count 393 Mean Platelet Volume 10.4 Immature 1.000 H Granulocytes % Neutrophils % 84.2 H Lymphocytes % 8.7 L Monocytes % 4.8 Eosinophils % 0.8 Basophils % 0.5 Nucleated Red Blood 0.0 Cells % Immature 0.120 H Granulocytes # Neutrophils # 9.7 H Lymphocytes # 1.0 Monocytes # 0.6 Eosinophils # 0.1 Basophils # 0.1 Nucleated Red Blood 0.0 Cells # Bedside Glucose 152 161 Subjective 24 Hr Interval Summary Free Text/Dictation Patient remains intubated and still with lots of secretions. has poor gag reflex and would not be able to clear secretions on his own. still undecided regarding trach placement. Exam/Review of Systems Exam Vitals Vital Signs Date Temp Pulse Resp B/P (MAP) Pulse Ox O2 O2 Flow FiO2 Time Delivery Rate 04/21/19 79 16 96 30 11:19 04/21/19 80/59 (66) Mechanical 11:00 Ventilator 04/21/19 98.9 08:00 04/17/19 6.0 18:00 Intake and Output 04/20/19 04/20/19 04/21/19 1515:00 23:00 07:00 IntakeIntake Total 170.91 ml 331.75 ml 377.5 ml OutputOutput Total 210 ml 3010 ml 20 ml BalanceBalance -39.09 ml -2678.25 ml 357.5 ml Exam General: Patient is intubated. no acute distress Neck: Supple, nontender, midline Respiratory: Clear to auscultation bilaterally. diminished at bases. no wheezing appreciated Cardiovascular: regular rate and rhythm, no obvious murmurs Gastrointestinal: soft, non-tender to palpation, nondistended, bowel sounds heard. Ext: moving RUE. no cyanosis, clubbing or edema Skin: No new skin lesions Results Results 24hrs Laboratory Tests Test 04/20/19 12:42 04/20/19 17:27 04/20/19 20:52 04/21/19 01:18 Bedside Glucose 223 H 119 116 147 Test 04/21/19 04:20 04/21/19 04:30 04/21/19 05:55 04/21/19 09:14 Sodium Level 136 Potassium Level 4.4 Chloride Level 97 Carbon Dioxide Level 28 Anion Gap 11 Blood Urea Nitrogen 14 Creatinine 2.99 H Glucose Level 207 Calcium Level 9.7 Phosphorus Level 3.5 Magnesium Level 1.9 Albumin 3.8 White Blood Count 11.5 H Red Blood Count 3.28 L Hemoglobin 9.6 L Hematocrit 30.6 L Mean Corpuscular 93.3 Volume Mean Corpuscular 29.3 Hemoglobin Mean Corpuscular 31.4 L Hemoglobin Concent Red Cell 17.4 H Distribution Width Platelet Count 393 Mean Platelet Volume 10.4 Immature 1.000 H Granulocytes % Neutrophils % 84.2 H Lymphocytes % 8.7 L Monocytes % 4.8 Eosinophils % 0.8 Basophils % 0.5 Nucleated Red Blood 0.0 Cells % Immature 0.120 H Granulocytes # Neutrophils # 9.7 H Lymphocytes # 1.0 Monocytes # 0.6 Eosinophils # 0.1 Basophils # 0.1 Nucleated Red Blood 0.0 Cells # Bedside Glucose 152 161 Medications Medication Current Medications IV Flush (NS 3 ml) 3 ml PER PROTOCOL IV ; Start 03/29/19 at 13:30 Ondansetron HCl (Zofran Inj) 4 mg Q6H PRN IV NAUSEA/VOMITING Last administered on 04/07/19at 18:53; Admin Dose 4 MG; Start 03/29/19 at 13:30 Acetaminophen (Tylenol Tab) 650 mg Q6H PRN PO .PAIN 1-3 OR TEMP Last administered on 03/31/19at 05:48; Admin Dose 650 MG; Start 03/29/19 at 13:30 Hydralazine HCl (Apresoline) 10 mg Q4H PRN IV sbp >185 Last administered on 04/18/19at 14:27; Admin Dose 10 MG; Start 03/29/19 at 14:00 Miscellaneous Information 1 ea NOTE XX ; Start 03/29/19 at 14:30 Glucose (Glutose) 15 gm Q15M PRN PO DECREASED GLUCOSE; Start 03/29/19 at 14:30 Glucose (Glutose) 22.5 gm Q15M PRN PO DECREASED GLUCOSE; Start 03/29/19 at 14:30 Dextrose (D50w Syringe) 25 ml Q15M PRN IV DECREASED GLUCOSE Last administered o n 04/13/19at 05:56; Admin Dose 25 ML; Start 03/29/19 at 14:30; Status Hold Dextrose (D50w Syringe) 50 ml Q15M PRN IV DECREASED GLUCOSE; Start 03/29/19 at 14:30 Glucagon (Glucagen) 1 mg Q15M PRN IM DECREASED GLUCOSE; Start 03/29/19 at 14:30 Glucose (Glutose) 15 gm Q15M PRN BUCCAL DECREASED GLUCOSE; Start 03/29/19 at 14:30 Albumin Human 100 ml @ 100 mls/hr WITH DIALYSIS PRN IV SBP <90 DURING DIALYSIS Last administered on 04/20/19at 14:37; Admin Dose 100 MLS/HR; Start 03/29/19 at 17:00 Albuterol/ Ipratropium (Duoneb) 3 ml Q2H RESP THERAPY PRN HHN WHEEZING AND RESP DISTRESS Last administered on 04/09/19at 08:52; Admin Dose 3 ML; Start 03/29/19 at 18:00 Lorazepam (Ativan) 0.5 mg Q4H PRN IV AGITATION Last administered on 04/16/19at 15:45; Admin Dose 0.5 MG; Start 03/29/19 at 18:00 IV Flush (NS 10 ml) 10 ml Q8 PRN IV IV PROTOCOL; Start 03/29/19 at 18:00 Labetalol HCl (Labetalol) 10 mg Q4H PRN IV sbp >160 Last administered on 04/20/19at 21:32; Admin Dose 10 MG; Start 03/30/19 at 09:00 Haloperidol (Haldol) 5 mg Q6H PRN IM agitation Last administered on 03/31/19at 00:10; Admin Dose 5 MG; Start 03/30/19 at 10:00 Heparin Sodium (Porcine) (Heparin (1000 Units/ml)) 3,200 unit AFTER DIALYSIS C ATHETER Last administered on 04/20/19 17:16; Admin Dose 3,200 UNIT; Start 03/30/19 at 17:00 Atorvastatin Calcium (Lipitor) 40 mg HS NGT Last administered on 04/20/19 20:53; Admin Dose 40 MG; Start 03/31/19 at 21:00 Baclofen (Lioresal) 10 mg BID GTB Last administered on 04/21/19 10:02; Admin Dose 10 MG; Start 03/31/19 at 21:00 Doxazosin Mesylate (Cardura) 2 mg DAILY NGT Last administered on 04/21/19 10:01; Admin Dose 2 MG; Start 03/31/19 at 14:30 Gabapentin (Neurontin) 100 mg QHS PO Last administered on 04/20/19 20:53; Admin Dose 100 MG; Start 03/31/19 at 21:00 Acetaminophen (Tylenol Liquid) 650 mg Q4H PRN PEG MILD PAIN(1-3)OR ELEVATED TEMP Last administered on 04/16/19 08:42; Admin Dose 650 MG; Start 03/31/19 at 16:00 Lactobacillus Acidophilus/ Rhamnosus (Culturelle) 1 cap TID GTB Last administered on 04/21/19 10:01; Admin Dose 1 CAP; Start 04/02/19 at 13:00 Epoetin [place]-epbx (Retacrit (Esrd)) 10,000 unit MoWeFr@1700 SC Last administered on 04/19/19 16:10; Admin Dose 10,000 UNIT; Start 04/03/19 at 19:30 Lansoprazole (Prevacid) 30 mg BID@0600,1800 GTB Last administered on 04/21/19 06:14; Admin Dose 30 MG; Start 04/04/19 at 18:00 Multivit/Ca Carb/ B Cmplx/FA/Prenat (Karena-Geovanni) 1 tab DAILY GTB Last administered on 04/21/19 10:00; Admin Dose 1 TAB; Start 04/04/19 at 11:30 Aspirin (Aspirin) 81 mg DAILY PO Last administered on 04/21/19 10:02; Admin Dose 81 MG; Start 04/05/19 at 09:00 Fentanyl 100 ml @ 2.5 mls/hr TITRATE IV Last administered on 04/21/19 02:38; Admin Dose 4 MLS/HR; Start 04/08/19 at 00:00 Midazolam HCl 50 ml @ 1 mls/hr TITRATE PRN IV agitation Last administered on 04/21/19 07:50; Admin Dose 6 MLS/HR; Start 04/08/19 at 00:00 Norepinephrine 250 ml @ 1.875 mls/ hr TITRATE IV Last administered on 04/18/19 21:28; Admin Dose 1.875 MLS/HR; Start 04/08/19 at 00:00 Mupirocin (Bactroban) 1 applic BID TOP Last administered on 04/21/19 10:03; Admin Dose 1 APPLIC; Start 04/09/19 at 21:00 Budesonide (Pulmicort (Neb)) 0.5 mg BID RESP THERAPY HHN Last administered on 04/21/19 08:21; Admin Dose 0.5 MG; Start 04/12/19 at 09:00 Carvedilol (Coreg) 12.5 mg BID NGT Last administered on 04/20/19 20:53; Admin Dose 12.5 MG; Start 04/12/19 at 21:00 Dextrose 1,000 ml @ 50 mls/hr Q20H IV Last administered on 04/13/19 09:08; Admin Dose 75 MLS/HR; Start 04/13/19 at 09:00; Status Hold Insulin Aspart (Novolog Insulin Pen) NOVOLOG *MILD* ALGORI... Q4 SC Last administered on 04/21/19 09:22; Admin Dose 1 UNIT; Start 04/13/19 at 09:00 Clopidogrel Bisulfate (plaVIX) 75 mg DAILY GTB Last administered on 04/21/19 10:02; Admin Dose 75 MG; Start 04/16/19 at 09:00 Quetiapine Fumarate (Seroquel) 50 mg QHS GTB Last administered on 04/20/19 20:53; Admin Dose 50 MG; Start 04/16/19 at 21:00 Losartan Potassium (Cozaar) 25 mg DAILY PO Last administered on 04/21/19 10:01; Admin Dose 25 MG; Start 04/17/19 at 09:00 Alteplase, Recombinant (Cathflo (Activase)) 2 mg MAY REPEAT X1 PRN CATHETER IF CATHETER REMAINS OCCULUDED Last administered on 04/17/19 11:21; Admin Dose 2 MG; Start 04/17/19 at 09:30 Insulin Glargine (Lantus) 10 units DAILY@0800 SC Last administered on 04/21/19 09:22; Admin Dose 10 UNITS; Start 04/17/19 at 11:00 Metoclopramide HCl (Reglan) 10 mg Q6 IV Last administered on 04/21/19 06:13; Admin Dose 10 MG; Start 04/17/19 at 18:00 Albuterol (Ventolin Hfa) 4 puff Q6H RESP THERAPY INH Last administered on 04/21/19 08:22; Admin Dose 4 PUFF; Start 04/18/19 at 02:00 Ipratropium [place] (Atrovent Hfa) 4 puff Q6H RESP THERAPY INH Last administered on 04/21/19 08:22; Admin Dose 4 PUFF; Start 04/18/19 at 02:00 Docusate Sodium (Colace Liquid Cup) 100 mg BID PEG Last administered on 04/21/19 10:02; Admin Dose 100 MG; Start 04/20/19 at 23:00 Polyethylene Glycol (Miralax) 17 gm DAILY PEG Last administered on 04/21/19 10:02; Admin Dose 17 GM; Start 04/21/19 at 09:00 Nitroglycerin/ Dextrose 250 ml @ 1.5 mls/hr TITRATE IV Last administered on 04/21/19 00:24; Admin Dose 1.5 MLS/HR; Start 04/21/19 at 00:30 LILLIAN ZHANG MD Apr 21, 2019 12:13
--- NOTE | 2019-04-21 13:15 | CONS ---
Assessment/Plan Assessment/Plan Assessment/Plan (Daily) 1. Acute hypoxemic respiratory failure intubated on ventilator - persistently failed weaning 2. Accelerated HTN 3. ESRD on HD - MWF schedule at [facility] HD center 4. H/o CAD s/p CABG before 5. H/o CAD with previous recent stent placement in 09/2018 6. h/o HTN 7. H/o DM II 8. h/o HL 9. 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 H/o BPH Plan: s/p HD yesterday2.7 L removed, plan for Extra HD today evening - then will continue pt on MWF schedule while being in hospital Patient was extubated on 04/17/19 afternoon after meeting adequate criteria on CPAP mode but then had to be reintubated for recurrent respiratory failure few hours later. Patient likely unable to protect his airway - pt will need Tracheostomy and pt family is leaning in that direction pt is on Coreg 12.5 mg pO BID, losartan 25 mg po daily and HYdralazine 50mg PO TID , cardura 2 mg po daily IV abx amikacin, Flagyl renally dose all abx and monitor electrolytes D10W at 50 cc/hr Epogen 47665 units SQ MWF will follow up Patient seen in collaboration with Dr Emily Chua Consultation Date/Type/Reason Admit Date/Time Mar 29, 2019 at 13:16 Initial Consult Date 04/07/19 Type of Consult Nephrology Reason for Consultation HD Requesting Provider: LILLIAN ZHANG MD Date/Time of Note DATE: 04/21/19 TIME: 0645 24 HR Interval Summary Free Text/Dictation remains intubated afebrile BP labile- BP dropped during HD yesterday; patient started on Levofed; BP got elevated- Levofed dcd; started on Nitro dw staff Patient seen in collaboration with Dr Emily Chua Subjective hx not possible: pt non-verbal Constitutional: requiring IVF, requiring O2 Exam/Review of Systems Exam Vitals Vital Signs Date Temp Pulse Resp B/P (MAP) Pulse Ox O2 O2 Flow FiO2 Time Delivery Rate 04/21/19 94 15 182/97 97 12:30 (125) 04/21/19 98.9 Mechanical 12:00 Ventilator 04/21/19 30 11:19 04/17/19 6.0 18:00 Intake and Output 04/20/19 04/20/1919 1515:00 23:00 07:00 IntakeIntake Total 170.91 ml 331.75 ml 377.5 ml OutputOutput Total 210 ml 3010 ml 20 ml BalanceBalance -39.09 ml -2678.25 ml 357.5 ml Constitutional: well developed, non-verbal, frail Psych: nl mood/affect Eyes: nl lids, nl sclera ENMT: nl external ears & nose Respiratory: clear to auscultation Cardiovascular: nl pulses, other (s1s2) Musculoskeletal: muscle weakness Extremities: normal pulses Neurological: unresponsive Results Result Diagram: 04/21/19 0430 04/21/19 0420 Results 24hrs Laboratory Tests Test 04/20/19 17:27 04/20/19 20:52 04/21/19 01:18 04/21/19 04:20 Bedside Glucose 119 116 147 Sodium Level 136 Potassium Level 4.4 Chloride Level 97 Carbon Dioxide Level 28 Anion Gap 11 Blood Urea Nitrogen 14 Creatinine 2.99 H Glucose Level 207 Calcium Level 9.7 Phosphorus Level 3.5 Magnesium Level 1.9 Albumin 3.8 Test 04/21/19 04:30 04/21/19 05:55 04/21/19 09:14 04/21/19 12:36 White Blood Count 11.5 H Red Blood Count 3.28 L Hemoglobin 9.6 L Hematocrit 30.6 L Mean Corpuscular 93.3 Volume Mean Corpuscular 29.3 Hemoglobin Mean Corpuscular 31.4 L Hemoglobin Concent Red Cell 17.4 H Distribution Width Platelet Count 393 Mean Platelet Volume 10.4 Immature 1.000 H Granulocytes % Neutrophils % 84.2 H Lymphocytes % 8.7 L Monocytes % 4.8 Eosinophils % 0.8 Basophils % 0.5 Nucleated Red Blood 0.0 Cells % Immature 0.120 H Granulocytes # Neutrophils # 9.7 H Lymphocytes # 1.0 Monocytes # 0.6 Eosinophils # 0.1 Basophils # 0.1 Nucleated Red Blood 0.0 Cells # Bedside Glucose 152 161 162 Medications Medication Current Medications IV Flush (NS 3 ml) 3 ml PER PROTOCOL IV ; Start 03/29/19 at 13:30 Ondansetron HCl (Zofran Inj) 4 mg Q6H PRN IV NAUSEA/VOMITING Last administered on 04/07/19at 18:53; Admin Dose 4 MG; Start 03/29/19 at 13:30 Acetaminophen (Tylenol Tab) 650 mg Q6H PRN PO .PAIN 1-3 OR TEMP Last administered on 03/31/19at 05:48; Admin Dose 650 MG; Start 03/29/19 at 13:30 Hydralazine HCl (Apresoline) 10 mg Q4H PRN IV sbp >185 Last administered on 04/18/19at 14:27; Admin Dose 10 MG; Start 03/29/19 at 14:00 Miscellaneous Information 1 ea NOTE XX ; Start 03/29/19 at 14:30 Glucose (Glutose) 15 gm Q15M PRN PO DECREASED GLUCOSE; Start 03/29/19 at 14:30 Glucose (Glutose) 22.5 gm Q15M PRN PO DECREASED GLUCOSE; Start 03/29/19 at 14:30 Dextrose (D50w Syringe) 25 ml Q15M PRN IV DECREASED GLUCOSE Last administered on 04/13/19at 05:56; Admin Dose 25 ML; Start 03/29/19 at 14:30; Status Hold Dextrose (D50w Syringe) 50 ml Q15M PRN IV DECREASED GLUCOSE; Start 03/29/19 at 14:30 Glucagon (Glucagen) 1 mg Q15M PRN IM DECREASED GLUCOSE; Start 03/29/19 at 14:30 Glucose (Glutose) 15 gm Q15M PRN BUCCAL DECREASED GLUCOSE; Start 03/29/19 at 14:30 Albumin Human 100 ml @ 100 mls/hr WITH DIALYSIS PRN IV SBP <90 DURING DIALYSIS Last administered on 04/20/19at 14:37; Admin Dose 100 MLS/HR; Start 03/29/19 at 17:00 Albuterol/ Ipratropium (Duoneb) 3 ml Q2H RESP THERAPY PRN HHN WHEEZING AND RESP DISTRESS Last administered on 04/09/19at 08:52; Admin Dose 3 ML; Start 03/29/19 at 18:00 Lorazepam (Ativan) 0.5 mg Q4H PRN IV AGITATION Last administered on 04/16/19at 15:45; Admin Dose 0.5 MG; Start 03/29/19 at 18:00 IV Flush (NS 10 ml) 10 ml Q8 PRN IV IV PROTOCOL; Start 03/29/19 at 18:00 Labetalol HCl (Labetalol) 10 mg Q4H PRN IV sbp >160 Last administered on 04/20/19 21:32; Admin Dose 10 MG; Start 03/30/19 at 09:00 Haloperidol (Haldol) 5 mg Q6H PRN IM agitation Last administered on 03/31/19 00:10; Admin Dose 5 MG; Start 03/30/19 at 10:00 Heparin Sodium (Porcine) (Heparin (1000 Units/ml)) 3,200 unit AFTER DIALYSIS CATHETER Last administered on 04/20/19 17:16; Admin Dose 3,200 UNIT; Start 03/30/19 at 17:00 Atorvastatin Calcium (Lipitor) 40 mg HS NGT Last administered on 04/20/19 20:53; Admin Dose 40 MG; Start 03/31/19 at 21:00 Baclofen (Lioresal) 10 mg BID GTB Last administered on 04/21/19 10:02; Admin Dose 10 MG; Start 03/31/19 at 21:00 Doxazosin Mesylate (Cardura) 2 mg DAILY NGT Last administered on 04/21/19 10:01; Admin Dose 2 MG; Start 03/31/19 at 14:30 Gabapentin (Neurontin) 100 mg QHS PO Last administered on 04/20/19 20:53; Admin Dose 100 MG; Start 03/31/19 at 21:00 Acetaminophen (Tylenol Liquid) 650 mg Q4H PRN PEG MILD PAIN(1-3)OR ELEVATED TEMP Last administered on 04/16/19 08:42; Admin Dose 650 MG; Start 03/31/19 at 16:00 Lactobacillus Acidophilus/ Rhamnosus (Culturelle) 1 cap TID GTB Last administered on 04/21/19 12:34; Admin Dose 1 CAP; Start 04/02/19 at 13:00 Epoetin [place]-epbx (Retacrit (Esrd)) 10,000 unit MoWeFr@1700 SC Last administered on 04/19/19 16:10; Admin Dose 10,000 UNIT; Start 04/03/19 at 19:30 Lansoprazole (Prevacid) 30 mg BID@0600,1800 GTB Last administered on 04/21/19 06:14; Admin Dose 30 MG; Start 04/04/19 at 18:00 Multivit/Ca Carb/ B Cmplx/FA/Prenat (Karena-Geovanni) 1 tab DAILY GTB Last administered on 04/21/19 10:00; Admin Dose 1 TAB; Start 04/04/19 at 11:30 Aspirin (Aspirin) 81 mg DAILY PO Last administered on 04/21/19 10:02; Admin Dose 81 MG; Start 04/05/19 at 09:00 Fentanyl 100 ml @ 2.5 mls/hr TITRATE IV Last administered on 04/21/19 02:38; Admin Dose 4 MLS/HR; Start 04/08/19 at 00:00 Midazolam HCl 50 ml @ 1 mls/hr TITRATE PRN IV agitation Last administered on 04/21/19 07:50; Admin Dose 6 MLS/HR; Start 04/08/19 at 00:00 Norepinephrine 250 ml @ 1.875 mls/ hr TITRATE IV Last administered on 04/18/19 21:28; Admin Dose 1.875 MLS/HR; Start 04/08/19 at 00:00 Mupirocin (Bactroban) 1 applic BID TOP Last administered on 04/21/19 10:03; Admin Dose 1 APPLIC; Start 04/09/19 at 21:00 Budesonide (Pulmicort (Neb)) 0.5 mg BID RESP THERAPY HHN Last administered on 04/21/19 08:21; Admin Dose 0.5 MG; Start 04/12/19 at 09:00 Carvedilol (Coreg) 12.5 mg BID NGT Last administered on 04/20/19 20:53; Admin Dose 12.5 MG; Start 04/12/19 at 21:00 Dextrose 1,000 ml @ 50 mls/hr Q20H IV Last administered on 04/13/19 09:08; Admin Dose 75 MLS/HR; Start 04/13/19 at 09:00; Status Hold Insulin Aspart (Novolog Insulin Pen) NOVOLOG *MILD* ALGORI... Q4 SC Last administered on 04/21/19 12:44; Admin Dose 1 UNIT; Start 04/13/19 at 09:00 Clopidogrel Bisulfate (plaVIX) 75 mg DAILY GTB Last administered on 04/21/19 10:02; Admin Dose 75 MG; Start 04/16/19 at 09:00 Quetiapine Fumarate (Seroquel) 50 mg QHS GTB Last administered on 04/20/19 20:53; Admin Dose 50 MG; Start 04/16/19 at 21:00 Losartan Potassium (Cozaar) 25 mg DAILY PO Last administered on 04/21/19 10:01; Admin Dose 25 MG; Start 04/17/19 at 09:00 Alteplase, Recombinant (Cathflo (Activase)) 2 mg MAY REPEAT X1 PRN CATHETER IF CATHETER REMAINS OCCULUDED Last administered on 04/17/19 11:21; Admin Dose 2 MG; Start 04/17/19 at 09:30 Insulin Glargine (Lantus) 10 units DAILY@0800 SC Last administered on 04/21/19 09:22; Admin Dose 10 UNITS; Start 04/17/19 at 11:00 Metoclopramide HCl (Reglan) 10 mg Q6 IV Last administered on 04/21/19 12:34; Admin Dose 10 MG; Start 04/17/19 at 18:00 Albuterol (Ventolin Hfa) 4 puff Q6H RESP THERAPY INH Last administered on 04/21/19 08:22; Admin Dose 4 PUFF; Start 04/18/19 at 02:00 Ipratropium [place] (Atrovent Hfa) 4 puff Q6H RESP THERAPY INH Last administered on 04/21/19 08:22; Admin Dose 4 PUFF; Start 04/18/19 at 02:00 Docusate Sodium (Colace Liquid Cup) 100 mg BID PEG Last administered on 04/21/19 10:02; Admin Dose 100 MG; Start 04/20/19 at 23:00 Polyethylene Glycol (Miralax) 17 gm DAILY PEG Last administered on 04/21/19 10:02; Admin Dose 17 GM; Start 04/21/19 at 09:00 Nitroglycerin/ Dextrose 250 ml @ 1.5 mls/hr TITRATE IV Last administered on 04/21/19 00:24; Admin Dose 1.5 MLS/HR; Start 04/21/19 at 00:30 JADE ALSTON Apr 21, 2019 13:15
--- NOTE | 2019-04-21 14:51 | CONS ---
Assessment/Plan Assessment/Plan Hospital Course (Demo Recall) No acute events patient was hypertensive overnight started on night pride drip and then drop pressure now on levo fed afebrile in no distress WBC 11.5 neutrophils 84.2 BUN 14 creatinine 2.99 MRI of the brain 04/16 revealed acute ischemic small vessel left thalamic infarct. 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 Head atraumatic normocephalic neck is supple chest rise symmetrical breath sounds diminished bases. Heart: S1-S2. Abdomen soft bowel sounds present. Extremities without cyanosis Assessment: 1. S/p sepsis 2. Acute respiratory failure, possibly aspirated 3. MRSA nares colonization 4. Encephalopathy, acute on chronic CVA 5. End-stage renal disease, hemodialysis dependent 6. Dysphagia 7. Chronic sinusitis and bilateral mastoiditis Plan: Remains unchanged, off antibiotics we will repeat cultures for temperature of 101 and above Consultation Date/Type/Reason Admit Date/Time Mar 29, 2019 at 13:16 Initial Consult Date 04/07/19 Type of Consult id Requesting Provider: LILLIAN ZHANG MD Date/Time of Note DATE: 04/21/19 TIME: 14:50 Exam/Review of Systems Exam Vitals Vital Signs Date Temp Pulse Resp B/P (MAP) Pulse Ox O2 O2 Flow FiO2 Time Delivery Rate 04/21/19 84 16 153/82 95 Mechanical 14:00 (105) Ventilator 04/21/19 30 13:29 04/21/19 98.9 12:00 04/17/19 6.0 18:00 Intake and Output 04/20/19 04/20/19 04/21/19 1414:59 22:59 06:59 IntakeIntake Total 209.91 ml 330.75 ml 350.0 ml OutputOutput Total 225 ml 3010 ml 15 ml BalanceBalance -15.09 ml -2679.25 ml 335.0 ml Results Result Diagram: 04/21/19 0430 04/21/19 0420 Results 24hrs Laboratory Tests Test 04/20/19 17:27 04/20/19 20:52 04/21/19 01:18 04/21/19 04:20 Bedside Glucose 119 116 147 Sodium Level 136 Potassium Level 4.4 Chloride Level 97 Carbon Dioxide Level 28 Anion Gap 11 Blood Urea Nitrogen 14 Creatinine 2.99 H Glucose Level 207 Calcium Level 9.7 Phosphorus Level 3.5 Magnesium Level 1.9 Albumin 3.8 Test 04/21/19 04:30 04/21/19 05:55 04/21/19 09:14 04/21/19 12:36 White Blood Count 11.5 H Red Blood Count 3.28 L Hemoglobin 9.6 L Hematocrit 30.6 L Mean Corpuscular 93.3 Volume Mean Corpuscular 29.3 Hemoglobin Mean Corpuscular 31.4 L Hemoglobin Concent Red Cell 17.4 H Distribution Width Platelet Count 393 Mean Platelet Volume 10.4 Immature 1.000 H Granulocytes % Neutrophils % 84.2 H Lymphocytes % 8.7 L Monocytes % 4.8 Eosinophils % 0.8 Basophils % 0.5 Nucleated Red Blood 0.0 Cells % Immature 0.120 H Granulocytes # Neutrophils # 9.7 H Lymphocytes # 1.0 Monocytes # 0.6 Eosinophils # 0.1 Basophils # 0.1 Nucleated Red Blood 0.0 Cells # Bedside Glucose 152 161 162 Medications Medication Current Medications IV Flush (NS 3 ml) 3 ml PER PROTOCOL IV ; Start 03/29/19 at 13:30 Ondansetron HCl (Zofran Inj) 4 mg Q6H PRN IV NAUSEA/VOMITING Last administered on 04/07/19at 18:53; Admin Dose 4 MG; Start 03/29/19 at 13:30 Acetaminophen (Tylenol Tab) 650 mg Q6H PRN PO .PAIN 1-3 OR TEMP Last administered on 03/31/19at 05:48; Admin Dose 650 MG; Start 03/29/19 at 13:30 Hydralazine HCl (Apresoline) 10 mg Q4H PRN IV sbp >185 Last administered on 04/18/19at 14:27; Admin Dose 10 MG; Start 03/29/19 at 14:00 Miscellaneous Information 1 ea NOTE XX ; Start 03/29/19 at 14:30 Glucose (Glutose) 15 gm Q15M PRN PO DECREASED GLUCOSE; Start 03/29/19 at 14:30 Glucose (Glutose) 22.5 gm Q15M PRN PO DECREASED GLUCOSE; Start 03/29/19 at 14:30 Dextrose (D50w Syringe) 25 ml Q15M PRN IV DECREASED GLUCOSE Last administered on 04/13/19 05:56; Admin Dose 25 ML; Start 03/29/19 at 14:30; Status Hold Dextrose (D50w Syringe) 50 ml Q15M PRN IV DECREASED GLUCOSE; Start 03/29/19 at 14:30 Glucagon (Glucagen) 1 mg Q15M PRN IM DECREASED GLUCOSE; Start 03/29/19 at 14:30 Glucose (Glutose) 15 gm Q15M PRN BUCCAL DECREASED GLUCOSE; Start 03/29/19 at 14:30 Albumin Human 100 ml @ 100 mls/hr WITH DIALYSIS PRN IV SBP <90 DURING DIALYSIS Last administered on 04/20/19 14:37; Admin Dose 100 MLS/HR; Start 03/29/19 at 17:00 Albuterol/ Ipratropium (Duoneb) 3 ml Q2H RESP THERAPY PRN HHN WHEEZING AND RESP DISTRESS Last administered on 04/09/19 08:52; Admin Dose 3 ML; Start 03/29/19 at 18:00 Lorazepam (Ativan) 0.5 mg Q4H PRN IV AGITATION Last administered on 04/16/19 15:45; Admin Dose 0.5 MG; Start 03/29/19 at 18:00 IV Flush (NS 10 ml) 10 ml Q8 PRN IV IV PROTOCOL; Start 03/29/19 at 18:00 Labetalol HCl (Labetalol) 10 mg Q4H PRN IV sbp >160 Last administered on 04/20/19 21:32; Admin Dose 10 MG; Start 03/30/19 at 09:00 Haloperidol (Haldol) 5 mg Q6H PRN IM agitation Last administered on 03/31/19 00:10; Admin Dose 5 MG; Start 03/30/19 at 10:00 Heparin Sodium (Porcine) (Heparin (1000 Units/ml)) 3,200 unit AFTER DIALYSIS CATHETER Last administered on 04/20/19 17:16; Admin Dose 3,200 UNIT; Start 03/30/19 at 17:00 Atorvastatin Calcium (Lipitor) 40 mg HS NGT Last administered on 04/20/19 20:53; Admin Dose 40 MG; Start 03/31/19 at 21:00 Baclofen (Lioresal) 10 mg BID GTB Last administered on 04/21/19 10:02; Admin Dose 10 MG; Start 03/31/19 at 21:00 Doxazosin Mesylate (Cardura) 2 mg DAILY NGT Last administered on 04/21/19 10:01; Admin Dose 2 MG; Start 03/31/19 at 14:30 Gabapentin (Neurontin) 100 mg QHS PO Last administered on 04/20/19 20:53; Admin Dose 100 MG; Start 03/31/19 at 21:00 Acetaminophen (Tylenol Liquid) 650 mg Q4H PRN PEG MILD PAIN(1-3)OR ELEVATED TEMP Last administered on 04/16/19 08:42; Admin Dose 650 MG; Start 03/31/19 at 16:00 Lactobacillus Acidophilus/ Rhamnosus (Culturelle) 1 cap TID GTB Last administered on 04/21/19 12:34; Admin Dose 1 CAP; Start 04/02/19 at 13:00 Epoetin [place]-epbx (Retacrit (Esrd)) 10,000 unit MoWeFr@1700 SC Last administered on 04/19/19 16:10; Admin Dose 10,000 UNIT; Start 04/03/19 at 19:30 Lansoprazole (Prevacid) 30 mg BID@0600,1800 GTB Last administered on 04/21/19 06:14; Admin Dose 30 MG; Start 04/04/19 at 18:00 Multivit/Ca Carb/ B Cmplx/FA/Prenat (Karena-Geovanni) 1 tab DAILY GTB Last administered on 04/21/19 10:00; Admin Dose 1 TAB; Start 04/04/19 at 11:30 Aspirin (Aspirin) 81 mg DAILY PO Last administered on 04/21/19 10:02; Admin Dose 81 MG; Start 04/05/19 at 09:00 Fentanyl 100 ml @ 2.5 mls/hr TITRATE IV Last administered on 04/21/19 02:38; Admin Dose 4 MLS/HR; Start 04/08/19 at 00:00 Midazolam HCl 50 ml @ 1 mls/hr TITRATE PRN IV agitation Last administered on 04/21/19 07:50; Admin Dose 6 MLS/HR; Start 04/08/19 at 00:00 Norepinephrine 250 ml @ 1.875 mls/ hr TITRATE IV Last administered on 04/18/19 21:28; Admin Dose 1.875 MLS/HR; Start 04/08/19 at 00:00 Mupirocin (Bactroban) 1 applic BID TOP Last administered on 04/21/19 10:03; Admin Dose 1 APPLIC; Start 04/09/19 at 21:00 Budesonide (Pulmicort (Neb)) 0.5 mg BID RESP THERAPY HHN Last administered on 04/21/19 08:21; Admin Dose 0.5 MG; Start 04/12/19 at 09:00 Carvedilol (Coreg) 12.5 mg BID NGT Last administered on 04/20/19 20:53; Admin Dose 12.5 MG; Start 04/12/19 at 21:00 Dextrose 1,000 ml @ 50 mls/hr Q20H IV Last administered on 04/13/19 09:08; Admin Dose 75 MLS/HR; Start 04/13/19 at 09:00; Status Hold Insulin Aspart (Novolog Insulin Pen) NOVOLOG *MILD* ALGORI... Q4 SC Last administered on 04/21/19 12:44; Admin Dose 1 UNIT; Start 04/13/19 at 09:00 Clopidogrel Bisulfate (plaVIX) 75 mg DAILY GTB Last administered on 04/21/19 10:02; Admin Dose 75 MG; Start 04/16/19 at 09:00 Quetiapine Fumarate (Seroquel) 50 mg QHS GTB Last administered on 04/20/19 20:53; Admin Dose 50 MG; Start 04/16/19 at 21:00 Losartan Potassium (Cozaar) 25 mg DAILY PO Last administered on 04/21/19 10:01; Admin Dose 25 MG; Start 04/17/19 at 09:00 Alteplase, Recombinant (Cathflo (Activase)) 2 mg MAY REPEAT X1 PRN CATHETER IF CATHETER REMAINS OCCULUDED Last administered on 04/17/19 11:21; Admin Dose 2 MG; Start 04/17/19 at 09:30 Insulin Glargine (Lantus) 10 units DAILY@0800 SC Last administered on 04/21/19 09:22; Admin Dose 10 UNITS; Start 04/17/19 at 11:00 Metoclopramide HCl (Reglan) 10 mg Q6 IV Last administered on 04/21/19 12:34; Admin Dose 10 MG; Start 04/17/19 at 18:00 Albuterol (Ventolin Hfa) 4 puff Q6H RESP THERAPY INH Last administered on 04/21/19 13:28; Admin Dose 4 PUFF; Start 04/18/19 at 02:00 Ipratropium [employer] (Atrovent Hfa) 4 puff Q6H RESP THERAPY INH Last administered on 04/21/19 13:28; Admin Dose 4 PUFF; Start 04/18/19 at 02:00 Docusate Sodium (Colace Liquid Cup) 100 mg BID PEG Last administered on 04/21/19 10:02; Admin Dose 100 MG; Start 04/20/19 at 23:00 Polyethylene Glycol (Miralax) 17 gm DAILY PEG Last administered on 04/21/19 10:02; Admin Dose 17 GM; Start 04/21/19 at 09:00 Nitroglycerin/ Dextrose 250 ml @ 1.5 mls/hr TITRATE IV Last administered on 04/21/19 00:24; Admin Dose 1.5 MLS/HR; Start 04/21/19 at 00:30 UMA COLINDRES NP Apr 21, 2019 14:50
--- NOTE | 2019-04-21 16:15 | PN ---
DATE: 04/21/2019 SUBJECTIVE: Chart reviewed. Events noted. The patient remains on ventilator, saturating 97%. PHYSICAL EXAMINATION: VITAL SIGNS: Blood pressure 182/97, pulse 94, respirations 15, temperature 98.9. HEENT: Pupils are equal and reactive to light. Orally intubated. NECK: Supple, no JVD noted, no cervical adenopathy noted. LUNGS: Scattered rhonchi bilaterally. CARDIOVASCULAR: S1, S2 normal. ABDOMEN: Soft, nontender, no megaly or masses noted. EXTREMITIES: No clubbing, cyanosis, or edema. NEUROLOGIC: Sedated. LABORATORY DATA: WBC 11.5, hemoglobin 9.6, hematocrit 30.6, platelets 393. Sodium 136, potassium 4. 4, chloride 97, CO2 28, BUN 14, creatinine 2.99, glucose 207. IMPRESSION: 1. Acute hypoxemic respiratory failure, status post extubation and reintubation. 2. Status post septic shock. 3. End-stage renal disease on hemodialysis. 4. Anemia. 5. Encephalopathy. 6. History of cerebrovascular accident. RECOMMENDATIONS: 1. Continue vent support for now. 2. Dialysis per nephrology. 3. Continue antibiotics. 4. Consider tracheostomy. 5. Above discussed with the staff. Dictated By: BUCK SHELDON MD, MA/JORDAN Conf#: [id number] DID#: [id number] CC: STEWART WINTER MD;*EndCC*
[2019-04-21] MEDS ORDERED: PENDING SANTYL ORDER FOR WOUND CARE XX PRN (18:00)
[2019-04-21] MEDS: QUETIAPINE 25 MG TAB GTB SCH (21:09)
[2019-04-21] MEDS: GABAPENTIN 100 MG CAP PO SCH (21:09)
[2019-04-21] MEDS: ATORVASTATIN 40 MG TAB NGT SCH (21:09)
--- NOTE | 2019-04-21 21:19 | CONS ---
DATE OF ADMISSION: 03/29/2019 DATE OF CONSULTATION: 04/21/2019 REQUESTING PHYSICIAN: Brooke Muñiz Dear Brooke: Thank you for asking me to see this patient in urological consultation. HISTORY OF PRESENT ILLNESS: This is a 58-year-old [place] male who was admitted to the hospital wit h multiple medical problems. The patient was diagnosed with acute hypoxic respiratory failure. He i s presently intubated and too weak to clear his secretions. The patient also has acute left thalamic stroke. The patient also has a history of aspiration pneumonia that is resolving, acute on chronic encephalopathy, and a history of anemia, end-stage renal disease. He is on hemodialysis Monday, and Monday. The patient also has a history of coronary artery disease status post coronary art gigi bypass graft and a history of epilepsy, history of cerebrovascular accident with residual left-si ded deficit and another recent CVA, question history of benign prostatic hypertrophy and septic shock . The patient presently is in the intensive care unit and is on the ventilator. Today while the [facility] were checking him, they found that he has swelling on the penis; therefore, a urological consulta tion was requested. The patient himself is not capable of giving any history because he is on the ve ntilator. I did, however, review the history and also the progress notes. Basically the patient is on hemodialysis and did have the Winters catheter because of urinary retention and also to monitor his urine output. ALLERGIES: PATIENT HAS NO KNOWN DRUG ALLERGIES. PAST SURGICAL HISTORY: He has had open heart surgery. SOCIAL HISTORY: He is not a smoker. PHYSICAL EXAMINATION: GENERAL: Reveals an elderly male who is on a ventilator. He does have endotracheal tube. He also d oes have a G-tube. ABDOMEN: Soft. There is no abdominal mass palpable. GENITOURINARY: The patient has paraphimosis and most likely when the Winters catheter was inserted, th e foreskin was retracted back and they never returned it to cover the glans, causing constriction and therefore paraphimosis and swelling. RECTAL: Examination revealed the prostate to be soft and not enlarged. EXTREMITIES: Reveal no edema. MEDICATIONS: The patient is on presently includes: 1. MiraLax. 2. Nitroglycerin IV. 3. Colace per the PEG tube 4. Albuterol p.r.n. 5. Ipratropium bromide every 6 hours. 6. Reglan. 7. Insulin. 8. Losartan. 9. Seroquel. 10. Plavix. 11. Carvedilol. 12. Pulmicort. 13. Bactroban. 14. Fentanyl 15. Midazolam. 16. Vasopressors with norepinephrine and Levophed 17. Aspirin. 18. Prevacid. 19. Multivitamin. 20. Erythropoietin. 21. Atorvastatin. 22. Gabapentin. 23. Doxazosin. 24. Haldol. 25. Labetalol. 26. Ativan. 27. Zofran. VITAL SIGNS: His temperature is 98.5, pulse is 83, respirations 16, blood pressure 143/75. LABORATORY DATA: CBC shows a white count of 11.5, hemoglobin 9.6, hematocrit 30.6, platelet count 39 3,000. The BUN is 14, creatinine 2.99, sodium 136, potassium 4.4, chloride 97, CO2 28. PT 14.3, INR 1.10. The last urine culture from 04/16/2019 showed no growth after [address] scan of the a bdomen and pelvis done on 04/11/2019 was interpreted as left lower lobe consolidation with ipsilatera l small pleural effusion. There are also extensive centrilobular nodules at the bilateral lung bases consistent with bronchopneumonia. Gastrostomy tube is in place in satisfactory location without dis lodgement. The penis does have paraphimosis. PLAN: I did go ahead and reduce the paraphimosis and brought the foreskin back to cover the glans pe nis. I instructed the nurse not to retract the foreskin for the time being. The patient does have a Winters catheter that is draining clear urine, and we shall keep that for now to monitor his urine out put. We will take it once he is more alert and see if he can urinate on his own. I will follow his urological problem with you. I do thank you for allowing me to help in his care. Dictated By: ILZET PATE/JORDAN Conf#: [id number] DID#: [id number] CC: BROOKE MUÑIZ MD; STEWART WINTER MD;*EndCC*
[2019-04-22] VITALS (77 sets, daily range): BP systolic 70–212; BP diastolic 45–105; PULSE 63–115; RESP 0–27
[2019-04-22] MEDS: ALBUTEROL HFA 8 GM INHALER INH SCH ×4 (01:08→21:19)
[2019-04-22] MEDS: IPRATROPIUM (HFA) 12.9 GM INHALER INH SCH ×4 (01:08→21:19)
[2019-04-22] MEDS: INSULIN ASPART [NOVOLOG] 3 ML PEN SC SCH ×6 (01:23→20:26)
[2019-04-22] MEDS: MIDAZOLAM (DRIP) 50 mg/50 mL 50 ML IV PRN ×2 (02:18→08:40)
[2019-04-22] MEDS: METOCLOPRAMIDE 10 MG INJ IV SCH ×3 (06:00→17:07)
[2019-04-22] MEDS: LANSOPRAZOLE 30 MG CAP GTB SCH ×2 (06:45→17:07)
[2019-04-22] MEDS: BALSAM PERU/CASTOR OIL 60 GM TUBE TOP SCH (08:17)
[2019-04-22] MEDS: MUPIROCIN 2% 22 GM OINT TOP SCH ×2 (08:17→20:19)
[2019-04-22] MEDS: POLYETHYLENE GLYCOL 17 GM PACKET PEG SCH (08:19)
[2019-04-22] MEDS: DOCUSATE SODIUM 10 MG/ML (10ML CUP) PEG SCH ×2 (08:20→20:20)
[2019-04-22] MEDS: INSULIN GLARGINE [LANTus] (100 UNITS/ML) SYG SC SCH (08:26)
[2019-04-22] MEDS: ALBUMIN HUMAN 25% 100 ML IV PRN (10:02)
[2019-04-22] MEDS: NORepinephrine 8MG/250 ML (PMX 250 ML IV SCH (10:21)
--- NOTE | 2019-04-22 11:01 | CONS ---
Consult Date/Type/Reason Admit Date/Time Mar 29, 2019 at 13:16 Initial Consult Date 04/07/19 Type of Consult Pulmonary Requesting Provider: LILLIAN ZHANG MD Date/Time of Note DATE: 04/22/19 TIME: 10:59 Subjective Continues to require mechanical ventilation. Remains mostly somnolent. Objective Vital Signs Date Temp Pulse Resp B/P (MAP) Pulse Ox O2 O2 Flow FiO2 Time Delivery Rate 04/22/19 78 16 98 30 10:50 04/22/19 108/67 Mechanical 10:30 (81) Ventilator 04/22/19 97.5 04:00 Intake and Output 04/21/19 04/21/19 04/22/19 1515:00 23:00 07:00 IntakeIntake Total 399.1875 ml 195 ml 183 ml OutputOutput Total 15 ml 0 ml 5 ml BalanceBalance 384.1875 ml 195 ml 178 ml Exam GENERAL: Elderly appearing gentleman orally intubated on mechanical ventilation VITAL SIGNS: per chart NECK: Supple. No JVD or lymphadenopathy. CARDIAC EXAM: S1, S2. No added sounds or murmurs. CHEST: Diminished air entry bilaterally ABDOMEN: Soft, nontender. No guarding or rebound. EXTREMITIES: No cyanosis, clubbing or edema. NEUROLOGIC: Generalized weakness. Unable to assess Vent Setting Ventilator Support Mode: AC Fraction of Inspired Oxygen pe: 30 Positive End Expiratory Pressu: 5.0 Results/Medications Result Diagram: 04/22/19 0415 04/22/19 0415 Results 24 hrs Laboratory Tests Test 04/21/19 12:36 04/21/19 17:31 04/21/19 21:18 04/22/19 01:19 Bedside Glucose 162 173 216 165 Test 04/22/19 04:15 04/22/19 04:29 04/22/19 08:16 White Blood Count 8.5 # Red Blood Count 3.34 L Hemoglobin 9.6 L Hematocrit 31.4 L Mean Corpuscular 94.0 Volume Mean Corpuscular 28.7 L Hemoglobin Mean Corpuscular 30.6 L Hemoglobin Concent Red Cell 17.8 H Distribution Width Platelet Count 377 Mean Platelet Volume 10.4 Immature 0.700 H Granulocytes % Neutrophils % 71.7 Lymphocytes % 14.7 L Monocytes % 7.0 Eosinophils % 5.1 Basophils % 0.8 Nucleated Red Blood 0.0 Cells % Immature 0.060 H Granulocytes # Neutrophils # 6.1 Lymphocytes # 1.2 Monocytes # 0.6 Eosinophils # 0.4 Basophils # 0.1 Nucleated Red Blood 0.0 Cells # Sodium Level 137 Potassium Level 3.8 Chloride Level 98 Carbon Dioxide Level 28 Anion Gap 11 Blood Urea Nitrogen 25 #H Creatinine 4.48 #H Glucose Level 179 Calcium Level 10.0 Phosphorus Level 3.4 Magnesium Level 2.2 Albumin 3.5 Bedside Glucose 145 165 Medications Current Medications IV Flush (NS 3 ml) 3 ml PER PROTOCOL IV ; Start 03/29/19 at 13:30 Ondansetron HCl (Zofran Inj) 4 mg Q6H PRN IV NAUSEA/VOMITING Last administered on 04/07/19at 18:53; Admin Dose 4 MG; Start 03/29/19 at 13:30 Acetaminophen (Tylenol Tab) 650 mg Q6H PRN PO .PAIN 1-3 OR TEMP Last administered on 03/31/19at 05:48; Admin Dose 650 MG; Start 03/29/19 at 13:30 Hydralazine HCl (Apresoline) 10 mg Q4H PRN IV sbp >185 Last administered on 04/18/19at 14:27; Admin Dose 10 MG; Start 03/29/19 at 14:00 Miscellaneous Information 1 ea NOTE XX ; Start 03/29/19 at 14:30 Glucose (Glutose) 15 gm Q15M PRN PO DECREASED GLUCOSE; Start 03/29/19 at 14:30 Glucose (Glutose) 22.5 gm Q15M PRN PO DECREASED GLUCOSE; Start 03/29/19 at 14:30 Dextrose (D50w Syringe) 25 ml Q15M PRN IV DECREASED GLUCOSE Last administered on 04/13/19at 05:56; Admin Dose 25 ML; Start 03/29/19 at 14:30; Status Hold Dextrose (D50w Syringe) 50 ml Q15M PRN IV DECREASED GLUCOSE; Start 03/29/19 at 14:30 Glucagon (Glucagen) 1 mg Q15M PRN IM DECREASED GLUCOSE; Start 03/29/19 at 14:30 Glucose (Glutose) 15 gm Q15M PRN BUCCAL DECREASED GLUCOSE; Start 03/29/19 at 14:30 Albumin Human 100 ml @ 100 mls/hr WITH DIALYSIS PRN IV SBP <90 DURING DIALYSIS Last administered on 04/22/19 10:02; Admin Dose 100 MLS/HR; Start 03/29/19 at 17:00 Albuterol/ Ipratropium (Duoneb) 3 ml Q2H RESP THERAPY PRN HHN WHEEZING AND RESP DISTRESS Last administered on 04/09/19 08:52; Admin Dose 3 ML; Start 03/29/19 at 18:00 Lorazepam (Ativan) 0.5 mg Q4H PRN IV AGITATION Last administered on 04/16/19 15 :45; Admin Dose 0.5 MG; Start 03/29/19 at 18:00 IV Flush (NS 10 ml) 10 ml Q8 PRN IV IV PROTOCOL; Start 03/29/19 at 18:00 Labetalol HCl (Labetalol) 10 mg Q4H PRN IV sbp >160 Last administered on 04/20 21:32; Admin Dose 10 MG; Start 03/30/19 at 09:00 Haloperidol (Haldol) 5 mg Q6H PRN IM agitation Last administered on 03/31/19 00:10; Admin Dose 5 MG; Start 03/30/19 at 10:00 Heparin Sodium (Porcine) (Heparin (1000 Units/ml)) 3,200 unit AFTER DIALYSIS CATHETER Last administered on 04/20/19 17:16; Admin Dose 3,200 UNIT; Start 03/30/19 at 17:00 Atorvastatin Calcium (Lipitor) 40 mg HS NGT Last administered on 04/21/19 21:09; Admin Dose 40 MG; Start 03/31/19 at 21:00 Baclofen (Lioresal) 10 mg BID GTB Last administered on 04/21/19 21:09; Admin Dose 10 MG; Start 03/31/19 at 21:00 Doxazosin Mesylate (Cardura) 2 mg DAILY NGT Last administered on 04/21/19 10:01; Admin Dose 2 MG; Start 03/31/19 at 14:30 Gabapentin (Neurontin) 100 mg QHS PO Last administered on 04/21/19 21:09; Admin Dose 100 MG; Start 03/31/19 at 21:00 Acetaminophen (Tylenol Liquid) 650 mg Q4H PRN PEG MILD PAIN(1-3)OR ELEVATED TEMP Last administered on 04/16/19 08:42; Admin Dose 650 MG; Start 03/31/19 at 16:00 Lactobacillus Acidophilus/ Rhamnosus (Culturelle) 1 cap TID GTB Last administered on 04/21/19 21:09; Admin Dose 1 CAP; Start 04/02/19 at 13:00 Epoetin [place]-epbx (Retacrit (Esrd)) 10,000 unit MoWeFr@1700 SC Last administered on 04/19/19 16:10; Admin Dose 10,000 UNIT; Start 04/03/19 at 19:30 Lansoprazole (Prevacid) 30 mg BID@0600,1800 GTB Last administered on 04/22/19 06:45; Admin Dose 30 MG; Start 04/04/19 at 18:00 Multivit/Ca Carb/ B Cmplx/FA/Prenat (Karena-Geovanni) 1 tab DAILY GTB Last admini stered on 04/21/19 10:00; Admin Dose 1 TAB; Start 04/04/19 at 11:30 Aspirin (Aspirin) 81 mg DAILY PO Last administered on 04/21/19 10:02; Admin Dose 81 MG; Start 04/05/19 at 09:00 Fentanyl 100 ml @ 2.5 mls/hr TITRATE IV Last administered on 04/21/19 02:38; Admin Dose 4 MLS/HR; Start 04/08/19 at 00:00 Midazolam HCl 50 ml @ 1 mls/hr TITRATE PRN IV agitation Last administered on 04/22/19 08:40; Admin Dose 5 MLS/HR; Start 04/08/19 at 00:00 Norepinephrine 250 ml @ 1.875 mls/ hr TITRATE IV Last administered on 04/22/19 10:21; Admin Dose 3.75 MLS/HR; Start 04/08/19 at 00:00 Mupirocin (Bactroban) 1 applic BID TOP Last administered on 04/22/19 08:17; Admin Dose 1 APPLIC; Start 04/09/19 at 21:00 Budesonide (Pulmicort (Neb)) 0.5 mg BID RESP THERAPY HHN Last administered on 04/21/19 19:32; Admin Dose 0.5 MG; Start 04/12/19 at 09:00 Carvedilol (Coreg) 12.5 mg BID NGT Last administered on 04/21/19 21:09; Admin Dose 12.5 MG; Start 04/12/19 at 21:00 Insulin Aspart (Novolog Insulin Pen) NOVOLOG *MILD* ALGORI... Q4 SC Last administered on 04/22/19 08:19; Admin Dose 1 UNIT; Start 04/13/19 at 09:00 Clopidogrel Bisulfate (plaVIX) 75 mg DAILY GTB Last administered on 04/21/19 10:02; Admin Dose 75 MG; Start 04/16/19 at 09:00 Quetiapine Fumarate (Seroquel) 50 mg QHS GTB Last administered on 04/21/19 21:09; Admin Dose 50 MG; Start 04/16/19 at 21:00 Losartan Potassium (Cozaar) 25 mg DAILY PO Last administered on 04/21/19 10:01; Admin Dose 25 MG; Start 04/17/19 at 09:00 Alteplase, Recombinant (Cathflo (Activase)) 2 mg MAY REPEAT X1 PRN CATHETER IF CATHETER REMAINS OCCULUDED Last administered on 04/17/19 11:21; Admin Dose 2 MG; Start 04/17/19 at 09:30 Insulin Glargine (Lantus) 10 units DAILY@0800 SC Last administered on 04/22/19 08:26; Admin Dose 10 UNITS; Start 04/17/19 at 11:00 Metoclopramide HCl (Reglan) 10 mg Q6 IV Last administered on 04/21/19 17:30; Admin Dose 10 MG; Start 04/17/19 at 18:00 Albuterol (Ventolin Hfa) 4 puff Q6H RESP THERAPY INH Last administered on 04/22/19 08:06; Admin Dose 4 PUFF; Start 04/18/19 at 02:00 Ipratropium [place] (Atrovent Hfa) 4 puff Q6H RESP THERAPY INH Last administered on 04/22/19 08:06; Admin Dose 4 PUFF; Start 04/18/19 at 02:00 Docusate Sodium (Colace Liquid Cup) 100 mg BID PEG Last administered on 04/21/19 10:02; Admin Dose 100 MG; Start 04/20/19 at 23:00 Polyethylene Glycol (Miralax) 17 gm DAILY PEG Last administered on 7/14/19at 10:02; Admin Dose 17 GM; Start 04/21/19 at 09:00 Nitroglycerin/ Dextrose 250 ml @ 1.5 mls/hr TITRATE IV Last administered on 04/21/19at 00:24; Admin Dose 1.5 MLS/HR; Start 04/21/19 at 00:30 Miscellaneous Information (Pending Santyl Order For Wound Care) This patient mcneal... PRN PRN XX WOUND CARE; Start 04/21/19 at 18:00 Assessment/Plan Hospital Course (Demo Recall) IMP: 1. Respiratory Failure/Ventilator Dependence 2. Status post septic Shock 3. Chronic renal insufficiency on hemodialysis 4. Anemia likely of chronic disease 5. Encephalopathy toxic metabolic RECS: 1. Ventilator support--patient is unable to be liberated from mechanical ventilation secondary to his encephalopathy. We will discuss probability of requiring tracheostomy with family. 2. Broad-spectrum antibiotics. 3. HD/UD. 4. Anti-seizure medications. 5. Continue tube feeding as tolerated Family meeting regarding goals of care Critical care time 40 minutes. Overall prognosis very poor. SAMMI MOSES MD, [facility] Apr 22, 2019 11:01
[2019-04-22] MEDS: BUDESONIDE (NEB) 0.5MG/2ML AMP HHN SCH ×2 (11:08→21:19)
--- NOTE | 2019-04-22 11:44 | CONS ---
Assessment/Plan Assessment/Plan Assessment/Plan (Daily) 1. Acute hypoxemic respiratory failure intubated on ventilator - persistently failed weaning 2. Accelerated HTN 3. ESRD on HD - MWF schedule at [facility] HD center 4. H/o CAD s/p CABG before 5. H/o CAD with previous recent stent placement in 09/2018 6. h/o HTN 7. H/o DM II 8. h/o HL 9. 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 H/o BPH Plan: s/p HD today 2.7 L removed, will plan for Extra HD on 04/20/19 evening - then will continue pt on MWF schedule while being in hospital Patient was extubated on 04/17/19 afternoon after meeting adequate criteria on CPAP mode but then had to be reintubated for recurrent respiratory failure few hours later. Patient likely unable to protect his airway - pt will need Tracheostomy and pt family is leaning in that direction pt is on Coreg 12.5 mg pO BID, losartan 25 mg po daily and HYdralazine 50mg PO TID , cardura 2 mg po daily IV abx amikacin, Flagyl renally dose all abx and monitor electrolytes D10W at 50 cc/hr Epogen 18596 units SQ MWF will follow u Consultation Date/Type/Reason Admit Date/Time Mar 29, 2019 at 13:16 Initial Consult Date 03/29/19 Type of Consult NEPHROLOGY Requesting Provider: LILLIAN ZHANG MD Date/Time of Note DATE: 04/22/19 TIME: 11:44 Exam/Review of Systems Exam Vitals Vital Signs Date Temp Pulse Resp B/P (MAP) Pulse Ox O2 O2 Flow FiO2 Time Delivery Rate 04/22/19 78 16 98 30 10:50 04/22/19 141/88 10:45 (105) 04/22/19 Mechanical 10:30 Ventilator 04/22/19 97.5 04:00 Intake and Output 04/21/19 04/21/19 04/22/19 1515:00 23:00 07:00 IntakeIntake Total 399.1875 ml 195 ml 183 ml OutputOutput Total 15 ml 0 ml 5 ml BalanceBalance 384.1875 ml 195 ml 178 ml Results Result Diagram: 04/22/19 0415 04/22/19 0415 Results 24hrs Laboratory Tests Test 04/21/19 12:36 04/21/19 17:31 04/21/19 21:18 04/22/19 01:19 Bedside Glucose 162 173 216 165 Test 04/22/19 04:15 04/22/19 04:29 04/22/19 08:16 White Blood Count 8.5 # Red Blood Count 3.34 L Hemoglobin 9.6 L Hematocrit 31.4 L Mean Corpuscular 94.0 Volume Mean Corpuscular 28.7 L Hemoglobin Mean Corpuscular 30.6 L Hemoglobin Concent Red Cell 17.8 H Distribution Width Platelet Count 377 Mean Platelet Volume 10.4 Immature 0.700 H Granulocytes % Neutrophils % 71.7 Lymphocytes % 14.7 L Monocytes % 7.0 Eosinophils % 5.1 Basophils % 0.8 Nucleated Red Blood 0.0 Cells % Immature 0.060 H Granulocytes # Neutrophils # 6.1 Lymphocytes # 1.2 Monocytes # 0.6 Eosinophils # 0.4 Basophils # 0.1 Nucleated Red Blood 0.0 Cells # Sodium Level 137 Potassium Level 3.8 Chloride Level 98 Carbon Dioxide Level 28 Anion Gap 11 Blood Urea Nitrogen 25 #H Creatinine 4.48 #H Glucose Level 179 Calcium Level 10.0 Phosphorus Level 3.4 Magnesium Level 2.2 Albumin 3.5 Bedside Glucose 145 165 Medications Medication Current Medications IV Flush (NS 3 ml) 3 ml PER PROTOCOL IV ; Start 03/29/19 at 13:30 Ondansetron HCl (Zofran Inj) 4 mg Q6H PRN IV NAUSEA/VOMITING Last administered on 04/07/19at 18:53; Admin Dose 4 MG; Start 03/29/19 at 13:30 Acetaminophen (Tylenol Tab) 650 mg Q6H PRN PO .PAIN 1-3 OR TEMP Last administered on 03/31/19at 05:48; Admin Dose 650 MG; Start 03/29/19 at 13:30 Hydralazine HCl (Apresoline) 10 mg Q4H PRN IV sbp >185 Last administered on 04/18/19at 14:27; Admin Dose 10 MG; Start 03/29/19 at 14:00 Miscellaneous Information 1 ea NOTE XX ; Start 03/29/19 at 14:30 Glucose (Glutose) 15 gm Q15M PRN PO DECREASED GLUCOSE; Start 03/29/19 at 14:30 Glucose (Glutose) 22.5 gm Q15M PRN PO DECREASED GLUCOSE; Start 03/29/19 at 14:30 Dextrose (D50w Syringe) 25 ml Q15M PRN IV DECREASED GLUCOSE Last administered on 04/13/19 05:56; Admin Dose 25 ML; Start 03/29/19 at 14:30; Status Hold Dextrose (D50w Syringe) 50 ml Q15M PRN IV DECREASED GLUCOSE; Start 03/29/19 at 14:30 Glucagon (Glucagen) 1 mg Q15M PRN IM DECREASED GLUCOSE; Start 03/29/19 at 14:30 Glucose (Glutose) 15 gm Q15M PRN BUCCAL DECREASED GLUCOSE; Start 03/29/19 at 14:30 Albumin Human 100 ml @ 100 mls/hr WITH DIALYSIS PRN IV SBP <90 DURING DIALYSIS Last administered on 04/22/19at 10:02; Admin Dose 100 MLS/HR; Start 03/29/19 at 17:00 Albuterol/ Ipratropium (Duoneb) 3 ml Q2H RESP THERAPY PRN HHN WHEEZING AND RESP DISTRESS Last administered on 04/09/19 08:52; Admin Dose 3 ML; Start 03/29/19 at 18:00 Lorazepam (Ativan) 0.5 mg Q4H PRN IV AGITATION Last administered on 04/16/19 15:45; Admin Dose 0.5 MG; Start 03/29/19 at 18:00 IV Flush (NS 10 ml) 10 ml Q8 PRN IV IV PROTOCOL; Start 03/29/19 at 18:00 Labetalol HCl (Labetalol) 10 mg Q4H PRN IV sbp >160 Last administered on 04/20/19 21:32; Admin Dose 10 MG; Start 03/30/19 at 09:00 Haloperidol (Haldol) 5 mg Q6H PRN IM agitation Last administered on 03/31/19at 00:10; Admin Dose 5 MG; Start 03/30/19 at 10:00 Heparin Sodium (Porcine) (Heparin (1000 Units/ml)) 3,200 unit AFTER DIALYSIS CA THETER Last administered on 04/20/19 17:16; Admin Dose 3,200 UNIT; Start 03/30/19 at 17:00 Atorvastatin Calcium (Lipitor) 40 mg HS NGT Last administered on 04/21/19 21:09; Admin Dose 40 MG; Start 03/31/19 at 21:00 Baclofen (Lioresal) 10 mg BID GTB Last administered on 04/21/19 21:09; Admin Dose 10 MG; Start 03/31/19 at 21:00 Doxazosin Mesylate (Cardura) 2 mg DAILY NGT Last administered on 04/21/19 10:01; Admin Dose 2 MG; Start 03/31/19 at 14:30 Gabapentin (Neurontin) 100 mg QHS PO Last administered on 04/21/19 21:09; Admin Dose 100 MG; Start 03/31/19 at 21:00 Acetaminophen (Tylenol Liquid) 650 mg Q4H PRN PEG MILD PAIN(1-3)OR ELEVATED TEMP Last administered on 04/16/19 08:42; Admin Dose 650 MG; Start 03/31/19 at 16:00 Lactobacillus Acidophilus/ Rhamnosus (Culturelle) 1 cap TID GTB Last administered on 04/21/19 21:09; Admin Dose 1 CAP; Start 04/02/19 at 13:00 Epoetin [place]-epbx (Retacrit (Esrd)) 10,000 unit MoWeFr@1700 SC Last administered on 04/19/19 16:10; Admin Dose 10,000 UNIT; Start 04/03/19 at 19:30 Lansoprazole (Prevacid) 30 mg BID@0600,1800 GTB Last administered on 04/22/19 06:45; Admin Dose 30 MG; Start 04/04/19 at 18:00 Multivit/Ca Carb/ B Cmplx/FA/Prenat (Karena-Geovanni) 1 tab DAILY GTB Last administered on 04/21/19 10:00; Admin Dose 1 TAB; Start 04/04/19 at 11:30 Aspirin (Aspirin) 81 mg DAILY PO Last administered on 04/21/19 10:02; Admin Dose 81 MG; Start 04/05/19 at 09:00 Fentanyl 100 ml @ 2.5 mls/hr TITRATE IV Last administered on 04/21/19 02:38; Admin Dose 4 MLS/HR; Start 04/08/19 at 00:00 Midazolam HCl 50 ml @ 1 mls/hr TITRATE PRN IV agitation Last administered on 04/22/19 08:40; Admin Dose 5 MLS/HR; Start 04/08/19 at 00:00 Norepinephrine 250 ml @ 1.875 mls/ hr TITRATE IV Last administered on 04/22/19 10:21; Admin Dose 3.75 MLS/HR; Start 04/08/19 at 00:00 Mupirocin (Bactroban) 1 applic BID TOP Last administered on 04/22/19 08:17; Ad min Dose 1 APPLIC; Start 04/09/19 at 21:00 Budesonide (Pulmicort (Neb)) 0.5 mg BID RESP THERAPY HHN Last administered on 04/22/19 11:08; Admin Dose 0.5 MG; Start 04/12/19 at 09:00 Carvedilol (Coreg) 12.5 mg BID NGT Last administered on 04/21/19 21:09; Admin Dose 12.5 MG; Start 04/12/19 at 21:00 Insulin Aspart (Novolog Insulin Pen) NOVOLOG *MILD* ALGORI... Q4 SC Last administered on 04/22/19 08:19; Admin Dose 1 UNIT; Start 04/13/19 at 09:00 Clopidogrel Bisulfate (plaVIX) 75 mg DAILY GTB Last administered on 04/21/19 10:02; Admin Dose 75 MG; Start 04/16/19 at 09:00 Quetiapine Fumarate (Seroquel) 50 mg QHS GTB Last administered on 04/21/19 21:09; Admin Dose 50 MG; Start 04/16/19 at 21:00 Losartan Potassium (Cozaar) 25 mg DAILY PO Last administered on 04/21/19 10:01; Admin Dose 25 MG; Start 04/17/19 at 09:00 Alteplase, Recombinant (Cathflo (Activase)) 2 mg MAY REPEAT X1 PRN CATHETER IF CATHETER REMAINS OCCULUDED Last administered on 04/17/19 11:21; Admin Dose 2 MG; Start 04/17/19 at 09:30 Insulin Glargine (Lantus) 10 units DAILY@0800 SC Last administered on 04/22/19 08:26; Admin Dose 10 UNITS; Start 04/17/19 at 11:00 Metoclopramide HCl (Reglan) 10 mg Q6 IV Last administered on 04/21/19 17:30; Admin Dose 10 MG; Start 04/17/19 at 18:00 Albuterol (Ventolin Hfa) 4 puff Q6H RESP THERAPY INH Last administered on 04/22/19 08:06; Admin Dose 4 PUFF; Start 04/18/19 at 02:00 Ipratropium [place] (Atrovent Hfa) 4 puff Q6H RESP THERAPY INH Last administered on 04/22/19 08:06; Admin Dose 4 PUFF; Start 04/18/19 at 02:00 Docusate Sodium (Colace Liquid Cup) 100 mg BID PEG Last administered on 04/21/19 10:02; Admin Dose 100 MG; Start 04/20/19 at 23:00 Polyethylene Glycol (Miralax) 17 gm DAILY PEG Last administered on 04/21/19at 10:02; Admin Dose 17 GM; Start 04/21/19 at 09:00 Nitroglycerin/ Dextrose 250 ml @ 1.5 mls/hr TITRATE IV Last administered on 04/21/19 00:24; Admin Dose 1.5 MLS/HR; Start 04/21/19 at 00:30 Miscellaneous Information (Pending Santyl Order For Wound Care) This patient mcneal... PRN PRN XX WOUND CARE; Start 04/21/19 at 18:00 BETZAIDA YAÑEZ MD Apr 22, 2019 11:44
[2019-04-22] MEDS: LACTOBACILLUS RHAMNOSUS CAP GTB SCH ×3 (13:00→20:18)
[2019-04-22] MEDS: HEPARIN 1000 UNITS/ML 10 ML INJ CATHETER SCH (13:12)
[2019-04-22] MEDS: CLOPIDOGREL 75 MG TAB GTB SCH (13:19)
[2019-04-22] MEDS: LOSARTAN 25 MG TAB PO SCH ×2 (13:20→14:17)
[2019-04-22] MEDS: ASPIRIN 81 MG TAB PO SCH (13:20)
[2019-04-22] MEDS: MULTIVIT/CA CARB/B CMPLX/FA TAB GTB SCH (13:20)
[2019-04-22] MEDS: DOXAZOSIN 2 MG TAB NGT SCH ×2 (13:21→14:17)
[2019-04-22] MEDS: BACLOFEN 10 MG TAB GTB SCH ×2 (13:21→20:18)
--- NOTE | 2019-04-22 13:56 | CONS ---
Assessment/Plan Assessment/Plan Hospital Course (Demo Recall) Patient is in hemodialysis on low-dose levo fed no fevers overnight WBC 8.5 neutrophils 71.4 MRI of the brain 04/16 revealed acute ischemic small vessel left thalamic infarct. 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 Head atraumatic normocephalic neck is supple chest rise symmetrical breath sounds diminished bases. Heart: S1-S2. Abdomen soft bowel sounds present. Extremities without cyanosis Assessment: 1. S/p sepsis 2. Acute respiratory failure, possibly aspirated 3. MRSA nares colonization 4. Encephalopathy, acute on chronic CVA 5. End-stage renal disease, hemodialysis dependent 6. Dysphagia 7. Chronic sinusitis and bilateral mastoiditis Plan: Remains unchanged, off antibiotics, repeat cultures for temperature of 101 and above Consultation Date/Type/Reason Admit Date/Time Mar 29, 2019 at 13:16 Initial Consult Date 04/07/19 Type of Consult id Requesting Provider: LILLIAN ZHANG MD Date/Time of Note DATE: 04/22/19 TIME: 13:56 Exam/Review of Systems Exam Vitals Vital Signs Date Temp Pulse Resp B/P (MAP) Pulse Ox O2 O2 Flow FiO2 Time Delivery Rate 04/22/19 96 17 147/77 13:30 (100) 04/22/19 96 Mechanical 13:00 Ventilator 04/22/19 97.6 12:00 04/22/19 30 10:50 Intake and Output 04/21/19 04/21/19 04/22/19 1515:00 23:00 07:00 IntakeIntake Total 399.1875 ml 195 ml 183 ml OutputOutput Total 15 ml 0 ml 5 ml BalanceBalance 384.1875 ml 195 ml 178 ml Results Result Diagram: 04/22/19 0415 04/22/19 0415 Results 24hrs Laboratory Tests Test 04/21/19 17:31 04/21/19 21:18 04/22/19 01:19 04/22/19 04:15 Bedside Glucose 173 216 165 White Blood Count 8.5 # Red Blood Count 3.34 L Hemoglobin 9.6 L Hematocrit 31.4 L Mean Corpuscular 94.0 Volume Mean Corpuscular 28.7 L Hemoglobin Mean Corpuscular 30.6 L Hemoglobin Concent Red Cell 17.8 H Distribution Width Platelet Count 377 Mean Platelet Volume 10.4 Immature 0.700 H Granulocytes % Neutrophils % 71.7 Lymphocytes % 14.7 L Monocytes % 7.0 Eosinophils % 5.1 Basophils % 0.8 Nucleated Red Blood 0.0 Cells % Immature 0.060 H Granulocytes # Neutrophils # 6.1 Lymphocytes # 1.2 Monocytes # 0.6 Eosinophils # 0.4 Basophils # 0.1 Nucleated Red Blood 0.0 Cells # Sodium Level 137 Potassium Level 3.8 Chloride Level 98 Carbon Dioxide Level 28 Anion Gap 11 Blood Urea Nitrogen 25 #H Creatinine 4.48 #H Glucose Level 179 Calcium Level 10.0 Phosphorus Level 3.4 Magnesium Level 2.2 Albumin 3.5 Test 04/22/19 04:29 04/22/19 08:16 04/22/19 13:28 Bedside Glucose 145 165 125 Medications Medication Current Medications IV Flush (NS 3 ml) 3 ml PER PROTOCOL IV ; Start 03/29/19 at 13:30 Ondansetron HCl (Zofran Inj) 4 mg Q6H PRN IV NAUSEA/VOMITING Last administered on 04/07/19at 18:53; Admin Dose 4 MG; Start 03/29/19 at 13:30 Acetaminophen (Tylenol Tab) 650 mg Q6H PRN PO .PAIN 1-3 OR TEMP Last administered on 03/31/19at 05:48; Admin Dose 650 MG; Start 03/29/19 at 13:30 Hydralazine HCl (Apresoline) 10 mg Q4H PRN IV sbp >185 Last administered on 04/18/19at 14:27; Admin Dose 10 MG; Start 03/29/19 at 14:00 Miscellaneous Information 1 ea NOTE XX ; Start 03/29/19 at 14:30 Glucose (Glutose) 15 gm Q15M PRN PO DECREASED GLUCOSE; Start 03/29/19 at 14:30 Glucose (Glutose) 22.5 gm Q15M PRN PO DECREASED GLUCOSE; Start 03/29/19 at 14:30 Dextrose (D50w Syringe) 25 ml Q15M PRN IV DECREASED GLUCOSE Last administered on 04/13/19 05:56; Admin Dose 25 ML; Start 03/29/19 at 14:30; Status Hold Dextrose (D50w Syringe) 50 ml Q15M PRN IV DECREASED GLUCOSE; Start 03/29/19 at 14:30 Glucagon (Glucagen) 1 mg Q15M PRN IM DECREASED GLUCOSE; Start 03/29/19 at 14:30 Glucose (Glutose) 15 gm Q15M PRN BUCCAL DECREASED GLUCOSE; Start 03/29/19 at 14:30 Albumin Human 100 ml @ 100 mls/hr WITH DIALYSIS PRN IV SBP <90 DURING DIALYSIS Last administered on 04/22/19 10:02; Admin Dose 100 MLS/HR; Start 03/29/19 at 17:00 Albuterol/ Ipratropium (Duoneb) 3 ml Q2H RESP THERAPY PRN HHN WHEEZING AND RESP DISTRESS Last administered on 04/09/19 08:52; Admin Dose 3 ML; Start 03/29/19 at 18:00 Lorazepam (Ativan) 0.5 mg Q4H PRN IV AGITATION Last administered on 04/16/19at 15:45; Admin Dose 0.5 MG; Start 03/29/19 at 18:00 IV Flush (NS 10 ml) 10 ml Q8 PRN IV IV PROTOCOL; Start 03/29/19 at 18:00 Labetalol HCl (Labetalol) 10 mg Q4H PRN IV sbp >160 Last administered on 04/20/19 21:32; Admin Dose 10 MG; Start 03/30/19 at 09:00 Haloperidol (Haldol) 5 mg Q6H PRN IM agitation Last administered on 03/31/19 00:10; Admin Dose 5 MG; Start 03/30/19 at 10:00 Heparin Sodium (Porcine) (Heparin (1000 Units/ml)) 3,200 unit AFTER DIALYSIS CATHETER Last administered on 04/22/19 13:12; Admin Dose 3,200 UNIT; Start 03/30/19 at 17:00 Atorvastatin Calcium (Lipitor) 40 mg HS NGT Last administered on 04/21/19 21:09; Admin Dose 40 MG; Start 03/31/19 at 21:00 Baclofen (Lioresal) 10 mg BID GTB Last administered on 04/22/19 13:21; Admin Dose 10 MG; Start 03/31/19 at 21:00 Doxazosin Mesylate (Cardura) 2 mg DAILY NGT Last administered on 04/21/19 10:01; Admin Dose 2 MG; Start 03/31/19 at 14:30 Gabapentin (Neurontin) 100 mg QHS PO Last administered on 04/21/19 21:09; Admin Dose 100 MG; Start 03/31/19 at 21:00 Acetaminophen (Tylenol Liquid) 650 mg Q4H PRN PEG MILD PAIN(1-3)OR ELEVATED TEMP Last administered on 04/16/19 08:42; Admin Dose 650 MG; Start 03/31/19 at 16:00 Lactobacillus Acidophilus/ Rhamnosus (Culturelle) 1 cap TID GTB Last administered on 04/22/19 13:20; Admin Dose 1 CAP; Start 04/02/19 at 13:00 Epoetin [place]-epbx (Retacrit (Esrd)) 10,000 unit MoWeFr@1700 SC Last administered on 04/19/19 16:10; Admin Dose 10,000 UNIT; Start 04/03/19 at 19:30 Lansoprazole (Prevacid) 30 mg BID@0600,1800 GTB Last administered on 04/22/19 06:45; Admin Dose 30 MG; Start 04/04/19 at 18:00 Multivit/Ca Carb/ B Cmplx/FA/Prenat ([place]-Geovanni) 1 tab DAILY GTB Last administered on 04/22/19 13:20; Admin Dose 1 TAB; Start 04/04/19 at 11:30 Aspirin (Aspirin) 81 mg DAILY PO Last administered on 04/22/19 13:20; Admin Dose 81 MG; Start 04/05/19 at 09:00 Fentanyl 100 ml @ 2.5 mls/hr TITRATE IV Last administered on 04/21/19 02:38; Admin Dose 4 MLS/HR; Start 04/08/19 at 00:00 Midazolam HCl 50 ml @ 1 mls/hr TITRATE PRN IV agitation Last administered on 04/22/19 08:40; Admin Dose 5 MLS/HR; Start 04/08/19 at 00:00 Norepinephrine 250 ml @ 1.875 mls/ hr TITRATE IV Last administered on 04/22/19 10:21; Admin Dose 3.75 MLS/HR; Start 04/08/19 at 00:00 Mupirocin (Bactroban) 1 applic BID TOP Last administered on 04/22/19 08:17; Admin Dose 1 APPLIC; Start 04/09/19 at 21:00 Budesonide (Pulmicort (Neb)) 0.5 mg BID RESP THERAPY HHN Last administered on 04/22/19 11:08; Admin Dose 0.5 MG; Start 04/12/19 at 09:00 Carvedilol (Coreg) 12.5 mg BID NGT Last administered on 04/21/19 21:09; Admin Dose 12.5 MG; Start 04/12/19 at 21:00 Insulin Aspart (Novolog Insulin Pen) NOVOLOG *MILD* ALGORI... Q4 SC Last administered on 04/22/19 08:19; Admin Dose 1 UNIT; Start 04/13/19 at 09:00 Clopidogrel Bisulfate (plaVIX) 75 mg DAILY GTB Last administered on 04/22/19 13:19; Admin Dose 75 MG; Start 04/16/19 at 09:00 Quetiapine Fumarate (Seroquel) 50 mg QHS GTB Last administered on 04/21/19 21:09; Admin Dose 50 MG; Start 04/16/19 at 21:00 Losartan Potassium (Cozaar) 25 mg DAILY PO Last administered on 04/21/19 10:01; Admin Dose 25 MG; Start 04/17/19 at 09:00 Alteplase, Recombinant (Cathflo (Activase)) 2 mg MAY REPEAT X1 PRN CATHETER IF CATHETER REMAINS OCCULUDED Last administered on 04/17/19 11:21; Admin Dose 2 MG; Start 04/17/19 at 09:30 Insulin Glargine (Lantus) 10 units DAILY@0800 SC Last administered on 04/22/19 08:26; Admin Dose 10 UNITS; Start 04/17/19 at 11:00 Metoclopramide HCl (Reglan) 10 mg Q6 IV Last administered on 04/22/19 13:22; A dmin Dose 10 MG; Start 04/17/19 at 18:00 Albuterol (Ventolin Hfa) 4 puff Q6H RESP THERAPY INH Last administered on 04/22/19 08:06; Admin Dose 4 PUFF; Start 04/18/19 at 02:00 Ipratropium [place] (Atrovent Hfa) 4 puff Q6H RESP THERAPY INH Last administered on 04/22/19 08:06; Admin Dose 4 PUFF; Start 04/18/19 at 02:00 Docusate Sodium (Colace Liquid Cup) 100 mg BID PEG Last administered on 04/21 10:02; Admin Dose 100 MG; Start 04/20/19 at 23:00 Polyethylene Glycol (Miralax) 17 gm DAILY PEG Last administered on 04/21/19 10:02; Admin Dose 17 GM; Start 04/21/19 at 09:00 Nitroglycerin/ Dextrose 250 ml @ 1.5 mls/hr TITRATE IV Last administered on 04/21/19 00:24; Admin Dose 1.5 MLS/HR; Start 04/21/19 at 00:30 Miscellaneous Information (Pending [facility] Order For Wound Care) This patient mcneal... PRN PRN XX WOUND CARE; Start 04/21/19 at 18:00 UMA COLINDRES NP Apr 22, 2019 13:56
--- NOTE | 2019-04-22 16:46 | PN ---
Date/Time of Note Date/Time of Note DATE: 04/22/19 TIME: 16:44 Assessment/Plan VTE Prophylaxis Risk score (from Nsg)>0 risk: 5 SCD applied (from Nsg): Yes Pharmacological prophylaxis: heparin Lines/Catheters IV Catheter Type (from Nrs): Permacath Assessment/Plan Hospital Course 1. Acute hypoxic respiratory failure - patient remains intubated and too weak to clear his secretions making him a poor candidate for extubation. still undecided regarding trach placement - Pulmonology consultation appreciated and will continue vent at this time. - patient was extubated 04/17 and needed to be reintubated a few hours later due to desaturation and inability to clear his secretions 2. Acute left thalamic stroke- stable - Neuro on board and appreciate consultation - Carotid US noted with stenosis <70%. Will continue plavix at this time given patient not stable for any type of intervention but will need to be assessed for CEA in the future 3. HCAP/Aspiration Pneumonia- resolving - CXR with no signs of PNA - Pulm on board and appreciate recommendations - ID on board for antibiotic management 4. Acute on chronic encephalopathy - Neurology consultation appreciated. 5. Anemia - stable - GI consultation appreciated and EGD revealed moderate distal esophagitis and gastritis and duodenitis. Colonoscopy showed internal hemorrhoids. Will need repeat colonoscopy in the future 6. End-stage renal disease on hemodialysis - Nephrology on board and appreciate consultation. Continue HD 7. Coronary artery disease status post CABG history - continue home medications - continue on Plavix and aspirin 8. Epilepsy - Continue Keppra - EEG noted with slowing 9. History of CVA with residual left-sided deficit and more recent CVA - New left thalamic stroke appreciated on repeat MRI. - Neurology consultation appreciated 10. BPH 11. Septic shock, intermittent- resolved - keeps fluctuating from HTN to hypotensive. Pressors PRN to maintain MAP 65 - Most likely secondary to aspiration pneumonia - ID on board and appreciate recommendations. continue on current IV antibiotics Prophylaxis: Heparin Disposition - Continue monitoring in ICU for ventilator management. Family aware they will need to make a decision regarding trach placement soon Result Diagram: 04/22/19 0415 04/22/19 0415 Results 24hrs Laboratory Tests Test 04/21/19 17:31 04/21/19 21:18 04/22/19 01:19 04/22/19 04:15 Bedside Glucose 173 216 165 White Blood Count 8.5 # Red Blood Count 3.34 L Hemoglobin 9.6 L Hematocrit 31.4 L Mean Corpuscular 94.0 Volume Mean Corpuscular 28.7 L Hemoglobin Mean Corpuscular 30.6 L Hemoglobin Concent Red Cell 17.8 H Distribution Width Platelet Count 377 Mean Platelet Volume 10.4 Immature 0.700 H Granulocytes % Neutrophils % 71.7 Lymphocytes % 14.7 L Monocytes % 7.0 Eosinophils % 5.1 Basophils % 0.8 Nucleated Red Blood 0.0 Cells % Immature 0.060 H Granulocytes # Neutrophils # 6.1 Lymphocytes # 1.2 Monocytes # 0.6 Eosinophils # 0.4 Basophils # 0.1 Nucleated Red Blood 0.0 Cells # Sodium Level 137 Potassium Level 3.8 Chloride Level 98 Carbon Dioxide Level 28 Anion Gap 11 Blood Urea Nitrogen 25 #H Creatinine 4.48 #H Glucose Level 179 Calcium Level 10.0 Phosphorus Level 3.4 Magnesium Level 2.2 Albumin 3.5 Test 04/22/19 04:29 04/22/19 08:16 04/22/19 13:28 Bedside Glucose 145 165 125 Subjective 24 Hr Interval Summary Subjective hx not possible: pt non-verbal Exam/Review of Systems Exam Vitals Vital Signs Date Temp Pulse Resp B/P (MAP) Pulse Ox O2 O2 Flow FiO2 Time Delivery Rate 04/22/19 104 15 80/56 (64) 90 Mechanical 16:00 Ventilator 04/22/19 97.6 12:00 04/22/19 30 10:50 Intake and Output 04/21/19 04/21/19 04/22/19 1515:00 23:00 07:00 IntakeIntake Total 399.1875 ml 195 ml 183 ml OutputOutput Total 15 ml 0 ml 5 ml BalanceBalance 384.1875 ml 195 ml 178 ml Constitutional: non-verbal Respiratory: clear to auscultation Cardiovascular: regular rate and rhythm Gastrointestinal: soft; No distended Musculoskeletal: nl extremities to inspection Results Results 24hrs Laboratory Tests Test 04/21/19 17:31 04/21/19 21:18 04/22/19 01:19 04/22/19 04:15 Bedside Glucose 173 216 165 White Blood Count 8.5 # Red Blood Count 3.34 L Hemoglobin 9.6 L Hematocrit 31.4 L Mean Corpuscular 94.0 Volume Mean Corpuscular 28.7 L Hemoglobin Mean Corpuscular 30.6 L Hemoglobin Concent Red Cell 17.8 H Distribution Width Platelet Count 377 Mean Platelet Volume 10.4 Immature 0.700 H Granulocytes % Neutrophils % 71.7 Lymphocytes % 14.7 L Monocytes % 7.0 Eosinophils % 5.1 Basophils % 0.8 Nucleated Red Blood 0.0 Cells % Immature 0.060 H Granulocytes # Neutrophils # 6.1 Lymphocytes # 1.2 Monocytes # 0.6 Eosinophils # 0.4 Basophils # 0.1 Nucleated Red Blood 0.0 Cells # Sodium Level 137 Potassium Level 3.8 Chloride Level 98 Carbon Dioxide Level 28 Anion Gap 11 Blood Urea Nitrogen 25 #H Creatinine 4.48 #H Glucose Level 179 Calcium Level 10.0 Phosphorus Level 3.4 Magnesium Level 2.2 Albumin 3.5 Test 04/22/19 04:29 04/22/19 08:16 04/22/19 13:28 Bedside Glucose 145 165 125 Medications Medication Current Medications IV Flush (NS 3 ml) 3 ml PER PROTOCOL IV ; Start 03/29/19 at 13:30 Ondansetron HCl (Zofran Inj) 4 mg Q6H PRN IV NAUSEA/VOMITING Last administered on 04/07/19at 18:53; Admin Dose 4 MG; Start 03/29/19 at 13:30 Acetaminophen (Tylenol Tab) 650 mg Q6H PRN PO .PAIN 1-3 OR TEMP Last administered on 03/31/19at 05:48; Admin Dose 650 MG; Start 03/29/19 at 13:30 Hydralazine HCl (Apresoline) 10 mg Q4H PRN IV sbp >185 Last administered on 04/18/19at 14:27; Admin Dose 10 MG; Start 03/29/19 at 14:00 Miscellaneous Information 1 ea NOTE XX ; Start 03/29/19 at 14:30 Glucose (Glutose) 15 gm Q15M PRN PO DECREASED GLUCOSE; Start 03/29/19 at 14:30 Glucose (Glutose) 22.5 gm Q15M PRN PO DECREASED GLUCOSE; Start 03/29/19 at 14:30 Dextrose (D50w Syringe) 25 ml Q15M PRN IV DECREASED GLUCOSE Last administered on 04/13/19at 05:56; Admin Dose 25 ML; Start 03/29/19 at 14:30; Status Hold Dextrose (D50w Syringe) 50 ml Q15M PRN IV DECREASED GLUCOSE; Start 03/29/19 at 14:30 Glucagon (Glucagen) 1 mg Q15M PRN IM DECREASED GLUCOSE; Start 03/29/19 at 14:30 Glucose (Glutose) 15 gm Q15M PRN BUCCAL DECREASED GLUCOSE; Start 03/29/19 at 14:30 Albumin Human 100 ml @ 100 mls/hr WITH DIALYSIS PRN IV SBP <90 DURING DIALYSIS Last administered on 04/22/19 10:02; Admin Dose 100 MLS/HR; Start 03/29/19 at 17:00 Albuterol/ Ipratropium (Duoneb) 3 ml Q2H RESP THERAPY PRN HHN WHEEZING AND RESP DISTRESS Last administered on 04/09/19 08:52; Admin Dose 3 ML; Start 03/29/19 at 18:00 Lorazepam (Ativan) 0.5 mg Q4H PRN IV AGITATION Last administered on 04/16/19 15:45; Admin Dose 0.5 MG; Start 03/29/19 at 18:00 IV Flush (NS 10 ml) 10 ml Q8 PRN IV IV PROTOCOL; Start 03/29/19 at 18:00 Labetalol HCl (Labetalol) 10 mg Q4H PRN IV sbp >160 Last administered on 04/20/19 21:32; Admin Dose 10 MG; Start 03/30/19 at 09:00 Haloperidol (Haldol) 5 mg Q6H PRN IM agitation Last administered on 03/31/19 00:10; Admin Dose 5 MG; Start 03/30/19 at 10:00 Heparin Sodium (Porcine) (Heparin (1000 Units/ml)) 3,200 unit AFTER DIALYSIS CATHETER Last administered on 04/22/19 13:12; Admin Dose 3,200 UNIT; Start 03/30/19 at 17:00 Atorvastatin Calcium (Lipitor) 40 mg HS NGT Last administered on 04/21/19 21:09; Admin Dose 40 MG; Start 03/31/19 at 21:00 Baclofen (Lioresal) 10 mg BID GTB Last administered on 04/22/19 13:21; Admin Dose 10 MG; Start 03/31/19 at 21:00 Doxazosin Mesylate (Cardura) 2 mg DAILY NGT Last administered on 04/22/19 14:1 7; Admin Dose 2 MG; Start 03/31/19 at 14:30 Gabapentin (Neurontin) 100 mg QHS PO Last administered on 04/21/19 21:09; Admin Dose 100 MG; Start 03/31/19 at 21:00 Acetaminophen (Tylenol Liquid) 650 mg Q4H PRN PEG MILD PAIN(1-3)OR ELEVATED TEMP Last administered on 04/16/19 08:42; Admin Dose 650 MG; Start 03/31/19 at 16:00 Lactobacillus Acidophilus/ Rhamnosus (Culturelle) 1 cap TID GTB Last admin istered on 04/22/19 13:20; Admin Dose 1 CAP; Start 04/02/19 at 13:00 Epoetin [place]-epbx (Retacrit (Esrd)) 10,000 unit MoWeFr@1700 SC Last administered on 04/19/19 16:10; Admin Dose 10,000 UNIT; Start 04/03/19 at 19:30 Lansoprazole (Prevacid) 30 mg BID@0600,1800 GTB Last administered on 04/22/19 06:45; Admin Dose 30 MG; Start 04/04/19 at 18:00 Multivit/Ca Carb/ B Cmplx/FA/Prenat ([place]-Geovanni) 1 tab DAILY GTB Last administered on 04/22/19 13:20; Admin Dose 1 TAB; Start 04/04/19 at 11:30 Aspirin (Aspirin) 81 mg DAILY PO Last administered on 04/22/19 13:20; Admin Dose 81 MG; Start 04/05/19 at 09:00 Fentanyl 100 ml @ 2.5 mls/hr TITRATE IV Last administered on 04/21/19 02:38; Admin Dose 4 MLS/HR; Start 04/08/19 at 00:00 Midazolam HCl 50 ml @ 1 mls/hr TITRATE PRN IV agitation Last administered on 04/22/19 08:40; Admin Dose 5 MLS/HR; Start 04/08/19 at 00:00 Norepinephrine 250 ml @ 1.875 mls/ hr TITRATE IV Last administered on 04/22/19 10:21; Admin Dose 3.75 MLS/HR; Start 04/08/19 at 00:00 Mupirocin (Bactroban) 1 applic BID TOP Last administered on 04/22/19 08:17; Admin Dose 1 APPLIC; Start 04/09/19 at 21:00 Budesonide (Pulmicort (Neb)) 0.5 mg BID RESP THERAPY HHN Last administered on 04/22/19 11:08; Admin Dose 0.5 MG; Start 04/12/19 at 09:00 Carvedilol (Coreg) 12.5 mg BID NGT Last administered on 04/22/19 14:20; Admin Dose 12.5 MG; Start 04/12/19 at 21:00 Insulin Aspart (Novolog Insulin Pen) NOVOLOG *MILD* ALGORI... Q4 SC Last administered on 04/22/19 08:19; Admin Dose 1 UNIT; Start 04/13/19 at 09:00 Clopidogrel Bisulfate (plaVIX) 75 mg DAILY GTB Last administered on 04/22/19 13:19; Admin Dose 75 MG; Start 04/16/19 at 09:00 Quetiapine Fumarate (Seroquel) 50 mg QHS GTB Last administered on 04/21/19 21:09; Admin Dose 50 MG; Start 04/16/19 at 21:00 Losartan Potassium (Cozaar) 25 mg DAILY PO Last administered on 04/22/19 14:17; Admin Dose 25 MG; Start 04/17/19 at 09:00 Alteplase, Recombinant (Cathflo (Activase)) 2 mg MAY REPEAT X1 PRN CATHETER IF CATHETER REMAINS OCCULUDED Last administered on 04/17/19 11:21; Admin Dose 2 MG; Start 04/17/19 at 09:30 Insulin Glargine (Lantus) 10 units DAILY@0800 SC Last administered on 04/22/19 08:26; Admin Dose 10 UNITS; Start 04/17/19 at 11:00 Metoclopramide HCl (Reglan) 10 mg Q6 IV Last administered on 04/22/19 13:22; Admin Dose 10 MG; Start 04/17/19 at 18:00 Albuterol (Ventolin Hfa) 4 puff Q6H RESP THERAPY INH Last administered on 04/22/19 08:06; Admin Dose 4 PUFF; Start 04/18/19 at 02:00 Ipratropium [place] (Atrovent Hfa) 4 puff Q6H RESP THERAPY INH Last administered on 04/22/19 08:06; Admin Dose 4 PUFF; Start 04/18/19 at 02:00 Docusate Sodium (Colace Liquid Cup) 100 mg BID PEG Last administered on 04/21/19at 10:02; Admin Dose 100 MG; Start 04/20/19 at 23:00 Polyethylene Glycol (Miralax) 17 gm DAILY PEG Last administered on 04/21/19at 10:02; Admin Dose 17 GM; Start 04/21/19 at 09:00 Nitroglycerin/ Dextrose 250 ml @ 1.5 mls/hr TITRATE IV Last administered on 04/21/19at 00:24; Admin Dose 1.5 MLS/HR; Start 04/21/19 at 00:30 Miscellaneous Information (Pending [facility] Order For Wound Care) This patient mcneal... PRN PRN XX WOUND CARE; Start 04/21/19 at 18:00 ZHANG YOUNG Apr 22, 2019 16:46
[2019-04-22] MEDS: EPOETIN ALFA-EPBX (ESRD) 10,000 UNIT/ML VIAL SC SCH (17:10)
--- NOTE | 2019-04-22 18:30 | CONS ---
Consult Date/Type/Reason Admit Date/Time Mar 29, 2019 at 13:16 Initial Consult Date 04/07/19 Type of Consultation: cv Requesting Provider: LILLIAN ZHANG MD Date/Time of Note DATE: 04/22/19 TIME: 18:29 Subjective Interventional cardiology follow-up progress note Subjective: Discussed with the staff and Telemetry was reviewed. pt remains intubated on vent BP has been INTERMITTENTLY LOW and required pressors while on HD today Patient nonverbal. events noted: extubated and had to be re-intubated on 04/17/19 objective: General: s/p intubation on the ventilator HEENT: NC/AT. pupils are equal. round. NECK:. no stridor. CV: RRR. systolic murmur; no gallop or rubs. PULM: + rhonchi. GI: SOFT, NT, ND, no rebound or guarding s/pPEG Extremity: trace B/L LE edema. no clubbing. neuro: opens his eyes Psych: calm the moment rectal: deferred : normal ECHO 04/09/19 REVIEWED Normal left ventricular systolic function. Normal left ventricular cavity size. Mild concentric left ventricular hypertrophy. Ejection fraction is visually estimated at 55 %. Tissue Doppler/Mitral Doppler indices are consistent with impaired relaxation (Stage I diastolic dysfunction). Mild mitral leaflet calcification. Mild mitral annular calcification. Mild mitral valve regurgitation. No significant aortic stenosis or insufficiency. Aortic cusps appear mildly calcified. Normal appearance of the tricuspid valve. The estimated Peak RVSP is 25 mmHg. There is trace tricuspid regurgitation. cxr 04/09/19 Persistent small left greater than right pleural effusions with associated atelectasis/infiltrate. CXR . Appropriate position of central lines and endotracheal tube. 2. Bilateral perihilar and basilar airspace opacities representing pulmonary edema or infection. 3. Small left pleural effusion. MRI Brain 04/16 1. Acute, ischemic, small vessel left thalamic infarct. 2. Chronic right greater than left bilateral basal ganglia and bilateral thalamic lacunar infarcts 3. Moderate chronic microvascular ischemic disease and diffuse volume loss 4. Chronic right frontal murguia radiata small vessel infarct 5. 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 Objective Vitals Vital Signs Date Temp Pulse Resp B/P (MAP) Pulse Ox O2 O2 Flow FiO2 Time Delivery Rate 04/22/19 110 22 140/72 92 Mechanical 18:00 (94) Ventilator 04/22/19 97.6 12:00 04/22/19 30 10:50 Intake and Output 04/21/19 04/21/19 04/22/19 1414:59 22:59 06:59 IntakeIntake Total 411.1875 ml 193 ml 204 ml OutputOutput Total 15 ml 5 ml 5 ml BalanceBalance 396.1875 ml 188 ml 199 ml Results/Medications Result Diagram: 04/22/19 0415 04/22/19 0415 Results 24 hrs Laboratory Tests Test 04/21/19 21:18 04/22/19 01:19 04/22/19 04:15 04/22/19 04:29 Bedside Glucose 216 165 145 White Blood Count 8.5 # Red Blood Count 3.34 L Hemoglobin 9.6 L Hematocrit 31.4 L Mean Corpuscular 94.0 Volume Mean Corpuscular 28.7 L Hemoglobin Mean Corpuscular 30.6 L Hemoglobin Concent Red Cell 17.8 H Distribution Width Platelet Count 377 Mean Platelet Volume 10.4 Immature 0.700 H Granulocytes % Neutrophils % 71.7 Lymphocytes % 14.7 L Monocytes % 7.0 Eosinophils % 5.1 Basophils % 0.8 Nucleated Red Blood 0.0 Cells % Immature 0.060 H Granulocytes # Neutrophils # 6.1 Lymphocytes # 1.2 Monocytes # 0.6 Eosinophils # 0.4 Basophils # 0.1 Nucleated Red Blood 0.0 Cells # Sodium Level 137 Potassium Level 3.8 Chloride Level 98 Carbon Dioxide Level 28 Anion Gap 11 Blood Urea Nitrogen 25 #H Creatinine 4.48 #H Glucose Level 179 Calcium Level 10.0 Phosphorus Level 3.4 Magnesium Level 2.2 Albumin 3.5 Test 04/22/19 08:16 04/22/19 13:28 04/22/19 17:28 Bedside Glucose 165 125 169 Home Meds Reported Medications Bisacodyl (Dulcolax) 10 Mg Supp.rect, 10 MG RC DAILY PRN for CONSTIPATION, SUPP.RECT 03/29/19 Sodium Phosphate,Llano-Dibasic (Enema Ready To Use) 133 Ml Enema, 133 ML RC EVERY 2 DAYS PRN for CONSTIPATION, ENEMA 03/29/19 Acetaminophen* (Acetaminophen*) 650 Mg Tablet, 650 MG GTB Q4 PRN for MILD PAIN LEVEL 1-3, #30 TAB AND FEVER 03/29/19 Acetaminophen* (Acetaminophen*) 500 MG Extra Strength Tablet, 1000 MG GTB Q4H PRN for MODERATE PAIN LEVEL 4-6, TAB 03/29/19 Acetaminophen* (Acetaminophen*) 500 MG Extra Strength Tablet, 1000 MG GTB BID PRN for GENERAL BODY PAIN, TAB 03/29/19 Amino Acids/Protein Hydrolys (Pro-Stat Awc Liquid) 30 Ml Liquid, 30 ML GTB DAILY SUGAR FREE 03/29/19 Multivitamin* (Daily Value*) 1 Each Tablet, 1 TAB GTB DAILY, TAB 03/29/19 Ascorbic Acid* (Vitamin C*) 500 Mg Capsule.sa, 500 MG GTB DAILY, CAP 03/29/19 Ferrous Sulfate (Ferrous Sulfate) 300 Mg/5 Ml Liquid, 325 MG GTB DAILY 03/29/19 Cran/Vitc/Mannose/Inulin/Brom (Uti-Stat Liquid) 3,875 Mg/30 Ml Liquid, 3875 MG GTB DAILY 03/29/19 Cranberry Extract (Cranberry) 425 Mg Capsule, 425 MG GTB DAILY, CAP 03/29/19 Insulin Glulisine (Apidra Solostar) 100 Unit/1 Ml Insuln.pen, 4 UNIT SQ TIDM A, #1 TUB 03/29/19 Insulin Glargine,Hum.rec.anlog (Basaglar Kwikpen U-100) 100 Unit/1 Ml Insuln.pen, 25 UNIT SC QHS, EA 03/29/19 Insulin Regular, Human (Humulin R) 100 Unit/1 Ml Vial, 0 IJ AC MEALS AND BEDTIME, VIAL 0-150 = 0 UNIT 151-200 = 1 UNIT 201-250 = 2 UNITS 251-300 = 3 UNITS 301-350 = 4 UNITS 351-400 = 5 UNITS OVER 400 GIVE 6 UNITS UNDER 70 OR OVER 400 NOTIFY 03/29/19 Sertraline Hcl* (Sertraline Hcl*) 25 Mg Tablet, 25 MG GTB DAILY, #30 TAB 03/29/19 Lorazepam* (Ativan*) 0.5 Mg Tablet, 0.5 MG GTB DAILY PRN for ANXIETY, #30 TAB 03/29/19 Quetiapine Fumarate* (Seroquel*) 25 Mg Tablet, 25 MG GTB HS, #30 TAB 03/29/19 Lorazepam* (Lorazepam*) 0.5 Mg Tablet, 0.5 MG GTB DAILY PRN for ANXIETY, TAB 03/29/19 Clonidine Hcl* (Clonidine Hcl*) 0.1 Mg Tab, 0.1 MG GTB DAILY PRN for ELEVATED BLOOD PRESSURE, TAB SBP >160 03/29/19 Azelastine Hcl* (Azelastine Hcl*) 137 Mcg/0.137 Ml Marshall.pump, 2 SPRAYS NASAL BID, #1 EA TO EACH NOSTRIL 03/29/19 Carvedilol* (Carvedilol*) 12.5 Mg Tablet, 12.5 MG GTB BID, #60 TAB 03/29/19 Diltiazem Hcl* (Cardizem CD*) 240 Mg Cap.sr.24h, 240 MG GTB DAILY, #30 CAP 03/29/19 Ergocalciferol (Vitamin D2) (VITAMIN D2) 50,000 Unit Capsule, 55691 UNIT GTB EVERY MONDAY, CAP 03/29/19 Hydralazine Hcl* (Hydralazine Hcl*) 50 Mg Tab, 50 MG GTB TID PRN for ELEVATED BLOOD PRESSURE, #60 TAB 03/29/19 Losartan Potassium* (Losartan Potassium*) 100 Mg Tablet, 100 MG GTB DAILY, TAB 03/29/19 Metoprolol Succinate* (Toprol XL*) 25 Mg Tab.sr.24h, 25 MG GTB DAILY, #30 TAB 03/29/19 Linagliptin (TRADJENTA) 5 Mg Tablet, 5 MG GTB DAILY, TAB 03/29/19 Albuterol Sulfate* (Proair HFA*) 8.5 Gm Hfa.aer.ad, 2 PUFF INH Q4H PRN for WHEEZING AND SOB, #1 INHALER 03/29/19 Ranitidine Hcl* (Ranitidine Hcl*) 300 Mg Tablet, 300 MG GTB HS, #30 TAB 03/29/19 Levetiracetam* (Keppra*) 500 Mg Tablet, 500 MG GTB BID, TAB 03/29/19 Gabapentin* (Gabapentin*) 100 Mg Capsule, 100 MG GTB QHS, #90 CAP 03/29/19 Doxazosin Mesylate* (Doxazosin Mesylate*) 2 Mg Tablet, 2 MG GTB HS, TAB 03/29/19 Docusate Sodium* (Dok*) 100 Mg Tablet, 100 MG GTB BID, #60 CAP 03/29/19 Cyanocobalamin (Vitamin B-12) (Cyanocobalamin Injection) 1,000 Mcg/1 Ml Vial, 1000 MCG IJ EVERY MONDAY, VIAL 03/29/19 Clopidogrel Bisulfate (Clopidogrel) 75 Mg Tablet, 75 MG GTB DAILY, #30 TAB 03/29/19 Calcium Carbonate (Oysco-500) 500 Mg Tablet, 500 MG GTB DAILY, TAB 03/29/19 Baclofen* (Baclofen*) 10 Mg Tablet, 10 MG GTB BID, TAB 03/29/19 Atorvastatin* (Atorvastatin*) 40 Mg Tablet, 40 MG GTB QHS, #30 TAB 03/29/19 Aspirin (Low Dose Aspirin) 81 Mg Tablet.dr, 81 MG GTB DAILY, #30 TAB 03/29/19 Medications Current Medications IV Flush (NS 3 ml) 3 ml PER PROTOCOL IV ; Start 03/29/19 at 13:30 Ondansetron HCl (Zofran Inj) 4 mg Q6H PRN IV NAUSEA/VOMITING Last administered on 04/07/19at 18:53; Admin Dose 4 MG; Start 03/29/19 at 13:30 Acetaminophen (Tylenol Tab) 650 mg Q6H PRN PO .PAIN 1-3 OR TEMP Last administered on 03/31/19at 05:48; Admin Dose 650 MG; Start 03/29/19 at 13:30 Hydralazine HCl (Apresoline) 10 mg Q4H PRN IV sbp >185 Last administered on 04/18/19at 14:27; Admin Dose 10 MG; Start 03/29/19 at 14:00 Miscellaneous Information 1 ea NOTE XX ; Start 03/29/19 at 14:30 Glucose (Glutose) 15 gm Q15M PRN PO DECREASED GLUCOSE; Start 03/29/19 at 14:30 Glucose (Glutose) 22.5 gm Q15M PRN PO DECREASED GLUCOSE; Start 03/29/19 at 14:30 Dextrose (D50w Syringe) 25 ml Q15M PRN IV DECREASED GLUCOSE Last administered on 04/13/19at 05:56; Admin Dose 25 ML; Start 03/29/19 at 14:30; Status Hold Dextrose (D50w Syringe) 50 ml Q15M PRN IV DECREASED GLUCOSE; Start 03/29/19 at 14:30 Glucagon (Glucagen) 1 mg Q15M PRN IM DECREASED GLUCOSE; Start 03/29/19 at 14:30 Glucose (Glutose) 15 gm Q15M PRN BUCCAL DECREASED GLUCOSE; Start 03/29/19 at 14:30 Albumin Human 100 ml @ 100 mls/hr WITH DIALYSIS PRN IV SBP <90 DURING DIALYSIS Last administered on 04/22/19 10:02; Admin Dose 100 MLS/HR; Start 03/29/19 at 17:00 Albuterol/ Ipratropium (Duoneb) 3 ml Q2H RESP THERAPY PRN HHN WHEEZING AND RESP DISTRESS Last administered on 04/09/19 08:52; Admin Dose 3 ML; Start 03/29/19 at 18:00 Lorazepam (Ativan) 0.5 mg Q4H PRN IV AGITATION Last administered on 04/16/19 15:45; Admin Dose 0.5 MG; Start 03/29/19 at 18:00 IV Flush (NS 10 ml) 10 ml Q8 PRN IV IV PROTOCOL; Start 03/29/19 at 18:00 Labetalol HCl (Labetalol) 10 mg Q4H PRN IV sbp >160 Last administered on 04/20/19 21:32; Admin Dose 10 MG; Start 03/30/19 at 09:00 Haloperidol (Haldol) 5 mg Q6H PRN IM agitation Last administered on 03/31/19 00:10; Admin Dose 5 MG; Start 03/30/19 at 10:00 Heparin Sodium (Porcine) (Heparin (1000 Units/ml)) 3,200 unit AFTER DIALYSIS CATHETER Last administered on 04/22/19 13:12; Admin Dose 3,200 UNIT; Start 03/30/19 at 17:00 Atorvastatin Calcium (Lipitor) 40 mg HS NGT Last administered on 04/21/19 21:09; Admin Dose 40 MG; Start 03/31/19 at 21:00 Baclofen (Lioresal) 10 mg BID GTB Last administered on 04/22/19 13:21; Admin Dose 10 MG; Start 03/31/19 at 21:00 Doxazosin Mesylate (Cardura) 2 mg DAILY NGT Last administered on 04/22/19 14:17; Admin Dose 2 MG; Start 03/31/19 at 14:30 Gabapentin (Neurontin) 100 mg QHS PO Last administered on 04/21/19 21:09; Admin Dose 100 MG; Start 03/31/19 at 21:00 Acetaminophen (Tylenol Liquid) 650 mg Q4H PRN PEG MILD PAIN(1-3)OR ELEVATED TEMP Last administered on 04/16/19 08:42; Admin Dose 650 MG; Start 03/31/19 at 16:00 Lactobacillus Acidophilus/ Rhamnosus (Culturelle) 1 cap TID GTB Last administered on 04/22/19 13:20; Admin Dose 1 CAP; Start 04/02/19 at 13:00 Epoetin [place]-epbx (Retacrit (Esrd)) 10,000 unit MoWeFr@1700 SC Last administered on 04/22/19 17:10; Admin Dose 10,000 UNIT; Start 04/03/19 at 19:30 Lansoprazole (Prevacid) 30 mg BID@0600,1800 GTB Last administered on 04/22/19 17:07; Admin Dose 30 MG; Start 04/04/19 at 18:00 Multivit/Ca Carb/ B Cmplx/FA/Prenat (Karena-Geovanni) 1 tab DAILY GTB Last administered on 04/22/19 13:20; Admin Dose 1 TAB; Start 04/04/19 at 11:30 Aspirin (Aspirin) 81 mg DAILY PO Last administered on 04/22/19 13:20; Admin Dose 81 MG; Start 04/05/19 at 09:00 Fentanyl 100 ml @ 2.5 mls/hr TITRATE IV Last administered on 04/21/19 02:38; Admin Dose 4 MLS/HR; Start 04/08/19 at 00:00 Midazolam HCl 50 ml @ 1 mls/hr TITRATE PRN IV agitation Last administered on 04/22/19 08:40; Admin Dose 5 MLS/HR; Start 04/08/19 at 00:00 Norepinephrine 250 ml @ 1.875 mls/ hr TITRATE IV Last administered on 04/22/19 10:21; Admin Dose 3.75 MLS/HR; Start 04/08/19 at 00:00 Mupirocin (Bactroban) 1 applic BID TOP Last administered on 04/22/19 08:17; Admin Dose 1 APPLIC; Start 04/09/19 at 21:00 Budesonide (Pulmicort (Neb)) 0.5 mg BID RESP THERAPY HHN Last administered on 04/22/19 11:08; Admin Dose 0.5 MG; Start 04/12/19 at 09:00 Carvedilol (Coreg) 12.5 mg BID NGT Last administered on 04/22/19 14:20; Admin Dose 12.5 MG; Start 04/12/19 at 21:00 Insulin Aspart (Novolog Insulin Pen) NOVOLOG *MILD* ALGORI... Q4 SC Last administered on 04/22/19 17:31; Admin Dose 1 UNIT; Start 04/13/19 at 09:00 Clopidogrel Bisulfate (plaVIX) 75 mg DAILY GTB Last administered on 04/22/19 13:19; Admin Dose 75 MG; Start 04/16/19 at 09:00 Quetiapine Fumarate (Seroquel) 50 mg QHS GTB Last administered on 04/21/19 21:09; Admin Dose 50 MG; Start 04/16/19 at 21:00 Losartan Potassium (Cozaar) 25 mg DAILY PO Last administered on 04/22/19 14:17; Admin Dose 25 MG; Start 04/17/19 at 09:00 Alteplase, Recombinant (Cathflo (Activase)) 2 mg MAY REPEAT X1 PRN CATHETER IF CATHETER REMAINS OCCULUDED Last administered on 04/17/19 11:21; Admin Dose 2 MG; Start 04/17/19 at 09:30 Insulin Glargine (Lantus) 10 units DAILY@0800 SC Last administered on 04/22/19 08:26; Admin Dose 10 UNITS; Start 04/17/19 at 11:00 Metoclopramide HCl (Reglan) 10 mg Q6 IV Last administered on 04/22/19 17:07; Admin Dose 10 MG; Start 04/17/19 at 18:00 Albuterol (Ventolin Hfa) 4 puff Q6H RESP THERAPY INH Last administered on 04/22/19 14:00; Admin Dose 4 PUFF; Start 04/18/19 at 02:00 Ipratropium [place] (Atrovent Hfa) 4 puff Q6H RESP THERAPY INH Last administered on 04/22/19 14:00; Admin Dose 4 PUFF; Start 04/18/19 at 02:00 Docusate Sodium (Colace Liquid Cup) 100 mg BID PEG Last administered on 04/21/19at 10:02; Admin Dose 100 MG; Start 04/20/19 at 23:00 Polyethylene Glycol (Miralax) 17 gm DAILY PEG Last administered on 04/21/19at 10:02; Admin Dose 17 GM; Start 04/21/19 at 09:00 Nitroglycerin/ Dextrose 250 ml @ 1.5 mls/hr TITRATE IV Last administered on 04/21/19at 00:24; Admin Dose 1.5 MLS/HR; Start 04/21/19 at 00:30 Miscellaneous Information (Pending [facility] Order For Wound Care) This patient mcneal... PRN PRN XX WOUND CARE; Start 04/21/19 at 18:00 Assessment/Plan Hospital Course (Demo Recall) 1. History of extensive coronary artery disease status post CA status post coronary bypass graft status post PCI 2. Status post recent CVA with now acute CVA based on MRI 3. End-stage renal disease on hemodialysis 4. Hypertension: labile . hypotensive now 5. Dyslipidemia 6. Severe encephalopathy 7. Dysphagia status post PEG placement 8. Severe anemia and history of GI bleed 9. Respiratory failure status post intubation on the vent now Recommendations: Cont with aspirin Plavix Respiratory care and ventilatory support will be continued. Hemodialysis as per renal. hold BP meds for low BP transfuse prn vent support for now ? need for trach if family wishes to be full code Thank you for this referral. We will continue to follow along with you NEEDED over the weekend SEAN CROUCH MD [facility] SEAN CROUCH MD Apr 22, 2019 18:30
--- NOTE | 2019-04-22 18:33 | CONS ---
Consult Date/Type/Reason Admit Date/Time Mar 29, 2019 at 13:16 Initial Consult Date 04/07/19 Type of Consultation: Urology Reason for Consultation Penile swelling Requesting Provider: LILLIAN ZHANG MD Date/Time of Note DATE: 04/22/19 TIME: 18:29 Subjective Patient not communicative. Objective Vitals Vital Signs Date Temp Pulse Resp B/P (MAP) Pulse Ox O2 O2 Flow FiO2 Time Delivery Rate 04/22/19 110 22 140/72 92 Mechanical 18:00 (94) Ventilator 04/22/19 97.6 12:00 04/22/19 30 10:50 Intake and Output 04/21/19 04/21/19 04/22/19 1515:00 23:00 07:00 IntakeIntake Total 399.1875 ml 195 ml 183 ml OutputOutput Total 15 ml 0 ml 5 ml BalanceBalance 384.1875 ml 195 ml 178 ml Exam The Winters catheter is draining clear urine and the penile swelling has decreased since I reduced the paraphimosis Results/Medications Result Diagram: 04/22/19 0415 04/22/19 0415 Results 24 hrs Laboratory Tests Test 04/21/19 21:18 04/22/19 01:19 04/22/19 04:15 04/22/19 04:29 Bedside Glucose 216 165 145 White Blood Count 8.5 # Red Blood Count 3.34 L Hemoglobin 9.6 L Hematocrit 31.4 L Mean Corpuscular 94.0 Volume Mean Corpuscular 28.7 L Hemoglobin Mean Corpuscular 30.6 L Hemoglobin Concent Red Cell 17.8 H Distribution Width Platelet Count 377 Mean Platelet Volume 10.4 Immature 0.700 H Granulocytes % Neutrophils % 71.7 Lymphocytes % 14.7 L Monocytes % 7.0 Eosinophils % 5.1 Basophils % 0.8 Nucleated Red Blood 0.0 Cells % Immature 0.060 H Granulocytes # Neutrophils # 6.1 Lymphocytes # 1.2 Monocytes # 0.6 Eosinophils # 0.4 Basophils # 0.1 Nucleated Red Blood 0.0 Cells # Sodium Level 137 Potassium Level 3.8 Chloride Level 98 Carbon Dioxide Level 28 Anion Gap 11 Blood Urea Nitrogen 25 #H Creatinine 4.48 #H Glucose Level 179 Calcium Level 10.0 Phosphorus Level 3.4 Magnesium Level 2.2 Albumin 3.5 Test 04/22/19 08:16 04/22/19 13:28 04/22/19 17:28 Bedside Glucose 165 125 169 Home Meds Reported Medications Bisacodyl (Dulcolax) 10 Mg Supp.rect, 10 MG RC DAILY PRN for CONSTIPATION, SUPP.RECT 03/29/19 Sodium Phosphate,[place]-Dibasic (Enema Ready To Use) 133 Ml Enema, 133 ML RC EVERY 2 DAYS PRN for CONSTIPATION, ENEMA 03/29/19 Acetaminophen* (Acetaminophen*) 650 Mg Tablet, 650 MG GTB Q4 PRN for MILD PAIN LEVEL 1-3, #30 TAB AND FEVER 03/29/19 Acetaminophen* (Acetaminophen*) 500 MG Extra Strength Tablet, 1000 MG GTB Q4H PRN for MODERATE PAIN LEVEL 4-6, TAB 03/29/19 Acetaminophen* (Acetaminophen*) 500 MG Extra Strength Tablet, 1000 MG GTB BID PRN for GENERAL BODY PAIN, TAB 03/29/19 Amino Acids/Protein Hydrolys (Pro-Stat Awc Liquid) 30 Ml Liquid, 30 ML GTB DAILY SUGAR FREE 03/29/19 Multivitamin* (Daily Value*) 1 Each Tablet, 1 TAB GTB DAILY, TAB 03/29/19 Ascorbic Acid* (Vitamin C*) 500 Mg Capsule.sa, 500 MG GTB DAILY, CAP 03/29/19 Ferrous Sulfate (Ferrous Sulfate) 300 Mg/5 Ml Liquid, 325 MG GTB DAILY 03/29/19 Cran/Vitc/Mannose/Inulin/Brom (Uti-Stat Liquid) 3,875 Mg/30 Ml Liquid, 3875 MG GTB DAILY 03/29/19 Cranberry Extract (Cranberry) 425 Mg Capsule, 425 MG GTB DAILY, CAP 03/29/19 Insulin Glulisine (Apidra Solostar) 100 Unit/1 Ml Insuln.pen, 4 UNIT SQ TIDM A, #1 TUB 03/29/19 Insulin Glargine,Hum.rec.anlog (Basaglar Kwikpen U-100) 100 Unit/1 Ml Insuln.pen, 25 UNIT SC QHS, EA 03/29/19 Insulin Regular, Human (Humulin R) 100 Unit/1 Ml Vial, 0 IJ AC MEALS AND BEDTIME, VIAL 0-150 = 0 UNIT 151-200 = 1 UNIT 201-250 = 2 UNITS 251-300 = 3 UNITS 301-350 = 4 UNITS 351-400 = 5 UNITS OVER 400 GIVE 6 UNITS UNDER 70 OR OVER 400 NOTIFY MD 03/29/19 Sertraline Hcl* (Sertraline Hcl*) 25 Mg Tablet, 25 MG GTB DAILY, #30 TAB 03/29/19 Lorazepam* (Ativan*) 0.5 Mg Tablet, 0.5 MG GTB DAILY PRN for ANXIETY, #30 TAB 03/29/19 Quetiapine Fumarate* (Seroquel*) 25 Mg Tablet, 25 MG GTB HS, #30 TAB 03/29/19 Lorazepam* (Lorazepam*) 0.5 Mg Tablet, 0.5 MG GTB DAILY PRN for ANXIETY, TAB 03/29/19 Clonidine Hcl* (Clonidine Hcl*) 0.1 Mg Tab, 0.1 MG GTB DAILY PRN for ELEVATED BLOOD PRESSURE, TAB SBP >160 03/29/19 Azelastine Hcl* (Azelastine Hcl*) 137 Mcg/0.[address] [place].pump, 2 SPRAYS NASAL BID, #1 EA TO EACH NOSTRIL 03/29/19 Carvedilol* (Carvedilol*) 12.5 Mg Tablet, 12.5 MG GTB BID, #60 TAB 03/29/19 Diltiazem Hcl* (Cardizem CD*) 240 Mg Cap.sr.24h, 240 MG GTB DAILY, #30 CAP 03/29/19 Ergocalciferol (Vitamin D2) (VITAMIN D2) 50,000 Unit Capsule, 37960 UNIT GTB EVERY MONDAY, CAP 03/29/19 Hydralazine Hcl* (Hydralazine Hcl*) 50 Mg Tab, 50 MG GTB TID PRN for ELEVATED BLOOD PRESSURE, #60 TAB 03/29/19 Losartan Potassium* (Losartan Potassium*) 100 Mg Tablet, 100 MG GTB DAILY, TAB 03/29/19 Metoprolol Succinate* (Toprol XL*) 25 Mg Tab.sr.24h, 25 MG GTB DAILY, #30 TAB 03/29/19 Linagliptin (TRADJENTA) 5 Mg Tablet, 5 MG GTB DAILY, TAB 03/29/19 Albuterol Sulfate* (Proair HFA*) 8.5 Gm Hfa.aer.ad, 2 PUFF INH Q4H PRN for WHEEZING AND SOB, #1 INHALER 03/29/19 Ranitidine Hcl* (Ranitidine Hcl*) 300 Mg Tablet, 300 MG GTB HS, #30 TAB 03/29/19 Levetiracetam* (Keppra*) 500 Mg Tablet, 500 MG GTB BID, TAB 03/29/19 Gabapentin* (Gabapentin*) 100 Mg Capsule, 100 MG GTB QHS, #90 CAP 03/29/19 Doxazosin Mesylate* (Doxazosin Mesylate*) 2 Mg Tablet, 2 MG GTB HS, TAB 03/29/19 Docusate Sodium* (Dok*) 100 Mg Tablet, 100 MG GTB BID, #60 CAP 03/29/19 Cyanocobalamin (Vitamin B-12) (Cyanocobalamin Injection) 1,000 Mcg/1 Ml Vial, 1000 MCG IJ EVERY MONDAY, VIAL 03/29/19 Clopidogrel Bisulfate (Clopidogrel) 75 Mg Tablet, 75 MG GTB DAILY, #30 TAB 03/29/19 Calcium Carbonate ([place]-500) 500 Mg Tablet, 500 MG GTB DAILY, TAB 03/29/19 Baclofen* (Baclofen*) 10 Mg Tablet, 10 MG GTB BID, TAB 03/29/19 Atorvastatin* (Atorvastatin*) 40 Mg Tablet, 40 MG GTB QHS, #30 TAB 03/29/19 Aspirin (Low Dose Aspirin) 81 Mg Tablet.dr, 81 MG GTB DAILY, #30 TAB 03/29/19 Medications Current Medications IV Flush (NS 3 ml) 3 ml PER PROTOCOL IV ; Start 03/29/19 at 13:30 Ondansetron HCl (Zofran Inj) 4 mg Q6H PRN IV NAUSEA/VOMITING Last administered on 04/07/19at 18:53; Admin Dose 4 MG; Start 03/29/19 at 13:30 Acetaminophen (Tylenol Tab) 650 mg Q6H PRN PO .PAIN 1-3 OR TEMP Last administered on 03/31/19at 05:48; Admin Dose 650 MG; Start 03/29/19 at 13:30 Hydralazine HCl (Apresoline) 10 mg Q4H PRN IV sbp >185 Last administered on 04/18/19at 14:27; Admin Dose 10 MG; Start 03/29/19 at 14:00 Miscellaneous Information 1 ea NOTE XX ; Start 03/29/19 at 14:30 Glucose (Glutose) 15 gm Q15M PRN PO DECREASED GLUCOSE; Start 03/29/19 at 14:30 Glucose (Glutose) 22.5 gm Q15M PRN PO DECREASED GLUCOSE; Start 03/29/19 at 14:30 Dextrose (D50w Syringe) 25 ml Q15M PRN IV DECREASED GLUCOSE Last administered on 04/13/19at 05:56; Admin Dose 25 ML; Start 03/29/19 at 14:30; Status Hold Dextrose (D50w Syringe) 50 ml Q15M PRN IV DECREASED GLUCOSE; Start 03/29/19 at 14:30 Glucagon (Glucagen) 1 mg Q15M PRN IM DECREASED GLUCOSE; Start 03/29/19 at 14:30 Glucose (Glutose) 15 gm Q15M PRN BUCCAL DECREASED GLUCOSE; Start 03/29/19 at 14:30 Albumin Human 100 ml @ 100 mls/hr WITH DIALYSIS PRN IV SBP <90 DURING DIALYSIS Last administered on 04/22/19at 10:02; Admin Dose 100 MLS/HR; Start 03/29/19 at 17:00 Albuterol/ Ipratropium (Duoneb) 3 ml Q2H RESP THERAPY PRN HHN WHEEZING AND RESP DISTRESS Last administered on 04/09/19at 08:52; Admin Dose 3 ML; Start 03/29/19 at 18:00 Lorazepam (Ativan) 0.5 mg Q4H PRN IV AGITATION Last administered on 04/16/19at 15:45; Admin Dose 0.5 MG; Start 03/29/19 at 18:00 IV Flush (NS 10 ml) 10 ml Q8 PRN IV IV PROTOCOL; Start 03/29/19 at 18:00 Labetalol HCl (Labetalol) 10 mg Q4H PRN IV sbp >160 Last administered on 04/20/19at 21:32; Admin Dose 10 MG; Start 03/30/19 at 09:00 Haloperidol (Haldol) 5 mg Q6H PRN IM agitation Last administered on 03/31/19at 00:10; Admin Dose 5 MG; Start 03/30/19 at 10:00 Heparin Sodium (Porcine) (Heparin (1000 Units/ml)) 3,200 unit AFTER DIALYSIS CATHETER Last administered on 04/22/19at 13:12; Admin Dose 3,200 UNIT; Start 03/30/19 at 17:00 Atorvastatin Calcium (Lipitor) 40 mg HS NGT Last administered on 04/21/19 21:09; Admin Dose 40 MG; Start 03/31/19 at 21:00 Baclofen (Lioresal) 10 mg BID GTB Last administered on 04/22/19 13:21; Admin Dose 10 MG; Start 03/31/19 at 21:00 Doxazosin Mesylate (Cardura) 2 mg DAILY NGT Last administered on 04/22/19 14:17; Admin Dose 2 MG; Start 03/31/19 at 14:30 Gabapentin (Neurontin) 100 mg QHS PO Last administered on 04/21/19 21:09; Admin Dose 100 MG; Start 03/31/19 at 21:00 Acetaminophen (Tylenol Liquid) 650 mg Q4H PRN PEG MILD PAIN(1-3)OR ELEVATED TEM P Last administered on 04/16/19 08:42; Admin Dose 650 MG; Start 03/31/19 at 16:00 Lactobacillus Acidophilus/ Rhamnosus (Culturelle) 1 cap TID GTB Last administered on 04/22/19 13:20; Admin Dose 1 CAP; Start 04/02/19 at 13:00 Epoetin [place]-epbx (Retacrit (Esrd)) 10,000 unit MoWeFr@1700 SC Last admi nistered on 04/22/19 17:10; Admin Dose 10,000 UNIT; Start 04/03/19 at 19:30 Lansoprazole (Prevacid) 30 mg BID@0600,1800 GTB Last administered on 04/22/19 17:07; Admin Dose 30 MG; Start 04/04/19 at 18:00 Multivit/Ca Carb/ B Cmplx/FA/Prenat (Karena-Geovanni) 1 tab DAILY GTB Last administered on 04/22/19 13:20; Admin Dose 1 TAB; Start 04/04/19 at 11:30 Aspirin (Aspirin) 81 mg DAILY PO Last administered on 04/22/19 13:20; Admin Dose 81 MG; Start 04/05/19 at 09:00 Fentanyl 100 ml @ 2.5 mls/hr TITRATE IV Last administered on 04/21/19 02:38; Admin Dose 4 MLS/HR; Start 04/08/19 at 00:00 Midazolam HCl 50 ml @ 1 mls/hr TITRATE PRN IV agitation Last administered on 04/22/19 08:40; Admin Dose 5 MLS/HR; Start 04/08/19 at 00:00 Norepinephrine 250 ml @ 1.875 mls/ hr TITRATE IV Last administered on 04/22/19 10:21; Admin Dose 3.75 MLS/HR; Start 04/08/19 at 00:00 Mupirocin (Bactroban) 1 applic BID TOP Last administered on 04/22/19 08:17; Admin Dose 1 APPLIC; Start 04/09/19 at 21:00 Budesonide (Pulmicort (Neb)) 0.5 mg BID RESP THERAPY HHN Last administered on 04/22/19 11:08; Admin Dose 0.5 MG; Start 04/12/19 at 09:00 Carvedilol (Coreg) 12.5 mg BID NGT Last administered on 04/22/19 14:20; Admin Dose 12.5 MG; Start 04/12/19 at 21:00 Insulin Aspart (Novolog Insulin Pen) NOVOLOG *MILD* ALGORI... Q4 SC Last administered on 04/22/19 17:31; Admin Dose 1 UNIT; Start 04/13/19 at 09:00 Clopidogrel Bisulfate (plaVIX) 75 mg DAILY GTB Last administered on 04/22/19 13:19; Admin Dose 75 MG; Start 04/16/19 at 09:00 Quetiapine Fumarate (Seroquel) 50 mg QHS GTB Last administered on 04/21/19 21:09; Admin Dose 50 MG; Start 04/16/19 at 21:00 Losartan Potassium (Cozaar) 25 mg DAILY PO Last administered on 04/22/19 14:17; Admin Dose 25 MG; Start 04/17/19 at 09:00 Alteplase, Recombinant (Cathflo (Activase)) 2 mg MAY REPEAT X1 PRN CATHETER IF CATHETER REMAINS OCCULUDED Last administered on 04/17/19 11:21; Admin Dose 2 MG; Start 04/17/19 at 09:30 Insulin Glargine (Lantus) 10 units DAILY@0800 SC Last administered on 04/22/19 08:26; Admin Dose 10 UNITS; Start 04/17/19 at 11:00 Metoclopramide HCl (Reglan) 10 mg Q6 IV Last administered on 04/22/19 17:07; Admin Dose 10 MG; Start 04/17/19 at 18:00 Albuterol (Ventolin Hfa) 4 puff Q6H RESP THERAPY INH Last administered on 04/22/19 14:00; Admin Dose 4 PUFF; Start 04/18/19 at 02:00 Ipratropium [place] (Atrovent Hfa) 4 puff Q6H RESP THERAPY INH Last administered on 04/22/19 14:00; Admin Dose 4 PUFF; Start 04/18/19 at 02:00 Docusate Sodium (Colace Liquid Cup) 100 mg BID PEG Last administered on 04/21/19 10:02; Admin Dose 100 MG; Start 04/20/19 at 23:00 Polyethylene Glycol (Miralax) 17 gm DAILY PEG Last administered on 04/21/19at 1 0:02; Admin Dose 17 GM; Start 04/21/19 at 09:00 Nitroglycerin/ Dextrose 250 ml @ 1.5 mls/hr TITRATE IV Last administered on 04/21/19 00:24; Admin Dose 1.5 MLS/HR; Start 04/21/19 at 00:30 Miscellaneous Information (Pending [facility] Order For Wound Care) This patient mcneal... PRN PRN XX WOUND CARE; Start 04/21/19 at 18:00 Assessment/Plan Hospital Course (Demo Recall) This is a 58-year-old [place] male who was admitted to the hospital with multiple medical problems. The patient was diagnosed with acute hypoxic respiratory failure. He is presently intubated and too weak to clear his secretions. The patient also has acute left thalamic stroke. The patient also has a history of aspiration pneumonia that is resolving, acute on chronic encephalopathy, and a history of anemia, end-stage renal disease. He is on hemodialysis Monday, Monday and Monday. The patient also has a history of coronary artery disease status post coronary artery bypass graft and a history of epilepsy, history of cerebrovascular accident with residual left-sided deficit and another recent CVA, question history of benign prostatic hypertrophy and septic shock. The patient presently is in the intensive care unit and is on the ventilator. Today while the nurses were checking him, they found that he has swelling on the penis; therefore, a urological consultation was requested. The patient did have paraphimosis which I have reduced. The swelling has then subsided. And the Winters catheter that he has is draining clear urine. Urologically no need for any further intervention. LIZET BETH MD Apr 22, 2019 18:33
[2019-04-22] MEDS: GABAPENTIN 100 MG CAP PO SCH (20:18)
[2019-04-22] MEDS: QUETIAPINE 25 MG TAB GTB SCH (20:18)
[2019-04-22] MEDS: ATORVASTATIN 40 MG TAB NGT SCH (20:18)
[2019-04-23] VITALS (105 sets, daily range): BP systolic 70–187; BP diastolic 39–118; PULSE 78–121; RESP 8–36
[2019-04-23] MEDS: METOCLOPRAMIDE 10 MG INJ IV SCH ×4 (00:16→18:18)
[2019-04-23] MEDS: INSULIN ASPART [NOVOLOG] 3 ML PEN SC SCH ×6 (00:17→21:44)
[2019-04-23] MEDS: ALBUTEROL HFA 8 GM INHALER INH SCH ×4 (01:11→19:28)
[2019-04-23] MEDS: IPRATROPIUM (HFA) 12.9 GM INHALER INH SCH ×4 (01:11→19:28)
[2019-04-23] MEDS: LANSOPRAZOLE 30 MG CAP GTB SCH ×2 (05:23→18:00)
[2019-04-23] MEDS: MIDAZOLAM (DRIP) 50 mg/50 mL 50 ML IV PRN ×2 (06:30→15:33)
--- NOTE | 2019-04-23 07:33 | CONS ---
Consult Date/Type/Reason Admit Date/Time Mar 29, 2019 at 13:16 Initial Consult Date 04/07/19 Type of Consultation: cv Requesting Provider: LILLIAN ZHANG MD Date/Time of Note DATE: 04/23/19 TIME: 07:31 Subjective Interventional cardiology follow-up progress note Subjective: Discussed with the staff and Telemetry was reviewed. pt remains in NSR PT Remains intubated on vent BP has been intermittently low and required to be on Levophed drip. Patient nonverbal. events noted: extubated and had to be re-intubated on 04/17/19 objective: General: s/p intubation on the ventilator HEENT: NC/AT. pupils are equal. round. NECK:. no stridor. CV: RRR. systolic murmur; no gallop or rubs. PULM: + rhonchi. GI: SOFT, NT, ND, no rebound or guarding s/pPEG Extremity: trace B/L LE edema. no clubbing. neuro: opens his eyes Psych: Agitated rectal: deferred : normal ECHO 04/09/19 REVIEWED Normal left ventricular systolic function. Normal left ventricular cavity size. Mild concentric left ventricular hypertrophy. Ejection fraction is visually estimated at 55 %. Tissue Doppler/Mitral Doppler indices are consistent with impaired relaxation (Stage I diastolic dysfunction). Mild mitral leaflet calcification. Mild mitral annular calcification. Mild mitral valve regurgitation. No significant aortic stenosis or insufficiency. Aortic cusps appear mildly calcified. Normal appearance of the tricuspid valve. The estimated Peak RVSP is 25 mmHg. There is trace tricuspid regurgitation. cxr 04/09/19 Persistent small left greater than right pleural effusions with associated atelectasis/infiltrate. CXR . Appropriate position of central lines and endotracheal tube. 2. Bilateral perihilar and basilar airspace opacities representing pulmonary edema or infection. 3. Small left pleural effusion. MRI Brain 04/16 1. Acute, ischemic, small vessel left thalamic infarct. 2. Chronic right greater than left bilateral basal ganglia and bilateral thalamic lacunar infarcts 3. Moderate chronic microvascular ischemic disease and diffuse volume loss 4. Chronic right frontal murguia radiata small vessel infarct 5. 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 Objective Vitals Vital Signs Date Temp Pulse Resp B/P (MAP) Pulse Ox O2 O2 Flow FiO2 Time Delivery Rate 04/23/19 119 21 138/83 97 06:45 (101) 04/23/19 Mechanical 06:00 Ventilator 04/23/19 55 04:39 04/23/19 98.7 04:00 Intake and Output 04/22/19 04/22/19 04/23/19 1515:00 23:00 07:00 IntakeIntake Total 269.80 ml 168.6375 ml 73.250 ml OutputOutput Total 3500 ml 10 ml 0 ml BalanceBalance -3230.20 ml 158.6375 ml 73.250 ml Results/Medications Result Diagram: 04/23/19 0430 04/23/19 0430 Results 24 hrs Laboratory Tests Test 04/22/19 08:16 04/22/19 13:28 04/22/19 17:28 04/22/19 20:24 Bedside Glucose 165 125 169 174 Test 04/23/19 00:16 04/23/19 04:30 04/23/19 05:22 Bedside Glucose 190 179 White Blood Count 12.9 #H Red Blood Count 3.78 L Hemoglobin 10.8 L Hematocrit 35.5 L Mean Corpuscular 93.9 Volume Mean Corpuscular 28.6 L Hemoglobin Mean Corpuscular 30.4 L Hemoglobin Concent Red Cell 18.7 H Distribution Width Platelet Count 503 #H Mean Platelet Volume 10.6 H Immature 0.600 H Granulocytes % Neutrophils % 78.7 H Lymphocytes % 10.5 L Monocytes % 7.9 Eosinophils % 1.7 Basophils % 0.6 Nucleated Red Blood 0.0 Cells % Immature 0.080 H Granulocytes # Neutrophils # 10.1 H Lymphocytes # 1.4 Monocytes # 1.0 H Eosinophils # 0.2 Basophils # 0.1 Nucleated Red Blood 0.0 Cells # Sodium Level 143 Potassium Level 4.1 Chloride Level 102 Carbon Dioxide Level 26 Anion Gap 15 H Blood Urea Nitrogen 17 Creatinine 3.63 H Glucose Level 180 Calcium Level 10.3 H Phosphorus Level 2.7 Magnesium Level 2.2 Albumin 4.3 Home Meds Reported Medications Bisacodyl (Dulcolax) 10 Mg Supp.rect, 10 MG RC DAILY PRN for CONSTIPATION, SUPP.RECT 03/29/19 Sodium Phosphate,Butler-Dibasic (Enema Ready To Use) 133 Ml Enema, 133 ML RC EVERY 2 DAYS PRN for CONSTIPATION, ENEMA 03/29/19 Acetaminophen* (Acetaminophen*) 650 Mg Tablet, 650 MG GTB Q4 PRN for MILD PAIN LEVEL 1-3, #30 TAB AND FEVER 03/29/19 Acetaminophen* (Acetaminophen*) 500 MG Extra Strength Tablet, 1000 MG GTB Q4H PRN for MODERATE PAIN LEVEL 4-6, TAB 03/29/19 Acetaminophen* (Acetaminophen*) 500 MG Extra Strength Tablet, 1000 MG GTB BID PRN for GENERAL BODY PAIN, TAB 03/29/19 Amino Acids/Protein Hydrolys (Pro-Stat Awc Liquid) 30 Ml Liquid, 30 ML GTB DAILY SUGAR FREE 03/29/19 Multivitamin* (Daily Value*) 1 Each Tablet, 1 TAB GTB DAILY, TAB 03/29/19 Ascorbic Acid* (Vitamin C*) 500 Mg Capsule.sa, 500 MG GTB DAILY, CAP 03/29/19 Ferrous Sulfate (Ferrous Sulfate) 300 Mg/5 Ml Liquid, 325 MG GTB DAILY 03/29/19 Cran/Vitc/Mannose/Inulin/Brom (Uti-Stat Liquid) 3,875 Mg/30 Ml Liquid, 3875 MG GTB DAILY 03/29/19 Cranberry Extract (Cranberry) 425 Mg Capsule, 425 MG GTB DAILY, CAP 03/29/19 Insulin Glulisine (Apidra Solostar) 100 Unit/1 Ml Insuln.pen, 4 UNIT SQ TIDM A, #1 TUB 03/29/19 Insulin Glargine,Hum.rec.anlog (Basaglar Kwikpen U-100) 100 Unit/1 Ml Insuln.pen, 25 UNIT SC QHS, EA 03/29/19 Insulin Regular, Human (Humulin R) 100 Unit/1 Ml Vial, 0 IJ AC MEALS AND BEDTIME, VIAL 0-150 = 0 UNIT 151-200 = 1 UNIT 201-250 = 2 UNITS 251-300 = 3 UNITS 301-350 = 4 UNITS 351-400 = 5 UNITS OVER 400 GIVE 6 UNITS UNDER 70 OR OVER 400 NOTIFY 03/29/19 Sertraline Hcl* (Sertraline Hcl*) 25 Mg Tablet, 25 MG GTB DAILY, #30 TAB 03/29/19 Lorazepam* (Ativan*) 0.5 Mg Tablet, 0.5 MG GTB DAILY PRN for ANXIETY, #30 TAB 03/29/19 Quetiapine Fumarate* (Seroquel*) 25 Mg Tablet, 25 MG GTB HS, #30 TAB 03/29/19 Lorazepam* (Lorazepam*) 0.5 Mg Tablet, 0.5 MG GTB DAILY PRN for ANXIETY, TAB 03/29/19 Clonidine Hcl* (Clonidine Hcl*) 0.1 Mg Tab, 0.1 MG GTB DAILY PRN for ELEVATED BLOOD PRESSURE, TAB SBP >160 03/29/19 Azelastine Hcl* (Azelastine Hcl*) 137 Mcg/0.137 Ml [place].pump, 2 SPRAYS NASAL BID, #1 EA TO EACH NOSTRIL 03/29/19 Carvedilol* (Carvedilol*) 12.5 Mg Tablet, 12.5 MG GTB BID, #60 TAB 03/29/19 Diltiazem Hcl* (Cardizem CD*) 240 Mg Cap.sr.24h, 240 MG GTB DAILY, #30 CAP 03/29/19 Ergocalciferol (Vitamin D2) (VITAMIN D2) 50,000 Unit Capsule, 76619 UNIT GTB EVERY MONDAY, CAP 03/29/19 Hydralazine Hcl* (Hydralazine Hcl*) 50 Mg Tab, 50 MG GTB TID PRN for ELEVATED BLOOD PRESSURE, #60 TAB 03/29/19 Losartan Potassium* (Losartan Potassium*) 100 Mg Tablet, 100 MG GTB DAILY, TAB 03/29/19 Metoprolol Succinate* (Toprol XL*) 25 Mg Tab.sr.24h, 25 MG GTB DAILY, #30 TAB 03/29/19 Linagliptin (TRADJENTA) 5 Mg Tablet, 5 MG GTB DAILY, TAB 03/29/19 Albuterol Sulfate* (Proair HFA*) 8.5 Gm Hfa.aer.ad, 2 PUFF INH Q4H PRN for WHEEZING AND SOB, #1 INHALER 03/29/19 Ranitidine Hcl* (Ranitidine Hcl*) 300 Mg Tablet, 300 MG GTB HS, #30 TAB 03/29/19 Levetiracetam* (Keppra*) 500 Mg Tablet, 500 MG GTB BID, TAB 03/29/19 Gabapentin* (Gabapentin*) 100 Mg Capsule, 100 MG GTB QHS, #90 CAP 03/29/19 Doxazosin Mesylate* (Doxazosin Mesylate*) 2 Mg Tablet, 2 MG GTB HS, TAB 03/29/19 Docusate Sodium* (Dok*) 100 Mg Tablet, 100 MG GTB BID, #60 CAP 03/29/19 Cyanocobalamin (Vitamin B-12) (Cyanocobalamin Injection) 1,000 Mcg/1 Ml Vial, 1000 MCG IJ EVERY MONDAY, VIAL 03/29/19 Clopidogrel Bisulfate (Clopidogrel) 75 Mg Tablet, 75 MG GTB DAILY, #30 TAB 03/29/19 Calcium Carbonate ([place]-500) 500 Mg Tablet, 500 MG GTB DAILY, TAB 03/29/19 Baclofen* (Baclofen*) 10 Mg Tablet, 10 MG GTB BID, TAB 03/29/19 Atorvastatin* (Atorvastatin*) 40 Mg Tablet, 40 MG GTB QHS, #30 TAB 03/29/19 Aspirin (Low Dose Aspirin) 81 Mg Tablet.dr, 81 MG GTB DAILY, #30 TAB 03/29/19 Medications Current Medications IV Flush (NS 3 ml) 3 ml PER PROTOCOL IV ; Start 03/29/19 at 13:30 Ondansetron HCl (Zofran Inj) 4 mg Q6H PRN IV NAUSEA/VOMITING Last administered on 04/07/19at 18:53; Admin Dose 4 MG; Start 03/29/19 at 13:30 Acetaminophen (Tylenol Tab) 650 mg Q6H PRN PO .PAIN 1-3 OR TEMP Last administered on 03/31/19at 05:48; Admin Dose 650 MG; Start 03/29/19 at 13:30 Hydralazine HCl (Apresoline) 10 mg Q4H PRN IV sbp >185 Last administered on 04/18/19at 14:27; Admin Dose 10 MG; Start 03/29/19 at 14:00 Miscellaneous Information 1 ea NOTE XX ; Start 03/29/19 at 14:30 Glucose (Glutose) 15 gm Q15M PRN PO DECREASED GLUCOSE; Start 03/29/19 at 14:30 Glucose (Glutose) 22.5 gm Q15M PRN PO DECREASED GLUCOSE; Start 03/29/19 at 14:30 Dextrose (D50w Syringe) 25 ml Q15M PRN IV DECREASED GLUCOSE Last administered on 04/13/19at 05:56; Admin Dose 25 ML; Start 03/29/19 at 14:30; Status Hold Dextrose (D50w Syringe) 50 ml Q15M PRN IV DECREASED GLUCOSE; Start 03/29/19 at 14:30 Glucagon (Glucagen) 1 mg Q15M PRN IM DECREASED GLUCOSE; Start 03/29/19 at 14:30 Glucose (Glutose) 15 gm Q15M PRN BUCCAL DECREASED GLUCOSE; Start 03/29/19 at 14:30 Albumin Human 100 ml @ 100 mls/hr WITH DIALYSIS PRN IV SBP <90 DURING DIALYSIS Last administered on 04/22/19at 10:02; Admin Dose 100 MLS/HR; Start 03/29/19 at 17:00 Albuterol/ Ipratropium (Duoneb) 3 ml Q2H RESP THERAPY PRN HHN WHEEZING AND RESP DISTRESS Last administered on 04/09/19at 08:52; Admin Dose 3 ML; Start 03/29/19 at 18:00 Lorazepam (Ativan) 0.5 mg Q4H PRN IV AGITATION Last administered on 04/16/19at 15:45; Admin Dose 0.5 MG; Start 03/29/19 at 18:00 IV Flush (NS 10 ml) 10 ml Q8 PRN IV IV PROTOCOL; Start 03/29/19 at 18:00 Labetalol HCl (Labetalol) 10 mg Q4H PRN IV sbp >160 Last administered on 04/20/19at 21:32; Admin Dose 10 MG; Start 03/30/19 at 09:00 Haloperidol (Haldol) 5 mg Q6H PRN IM agitation Last administered on 03/31/19at 0 0:10; Admin Dose 5 MG; Start 03/30/19 at 10:00 Heparin Sodium (Porcine) (Heparin (1000 Units/ml)) 3,200 unit AFTER DIALYSIS CATHETER Last administered on 04/22/19 13:12; Admin Dose 3,200 UNIT; Start 03/30/19 at 17:00 Atorvastatin Calcium (Lipitor) 40 mg HS NGT Last administered on 04/22/19at 20:1 8; Admin Dose 40 MG; Start 03/31/19 at 21:00 Baclofen (Lioresal) 10 mg BID GTB Last administered on 04/22/19 20:18; Admin Dose 10 MG; Start 03/31/19 at 21:00 Doxazosin Mesylate (Cardura) 2 mg DAILY NGT Last administered on 04/22/19 14:17; Admin Dose 2 MG; Start 03/31/19 at 14:30 Gabapentin (Neurontin) 100 mg QHS PO Last administered on 04/22/19 20:18; Admin Dose 100 MG; Start 03/31/19 at 21:00 Acetaminophen (Tylenol Liquid) 650 mg Q4H PRN PEG MILD PAIN(1-3)OR ELEVATED TEMP Last administered on 04/16/19 08:42; Admin Dose 650 MG; Start 03/31/19 at 16:00 Lactobacillus Acidophilus/ Rhamnosus (Culturelle) 1 cap TID GTB Last administered on 04/22/19 20:18; Admin Dose 1 CAP; Start 04/02/19 at 13:00 Epoetin [place]-epbx (Retacrit (Esrd)) 10,000 unit MoWeFr@1700 SC Last administered on 04/22/19 17:10; Admin Dose 10,000 UNIT; Start 04/03/19 at 19:30 Lansoprazole (Prevacid) 30 mg BID@0600,1800 GTB Last administered on 04/23/19 05:23; Admin Dose 30 MG; Start 04/04/19 at 18:00 Multivit/Ca Carb/ B Cmplx/FA/Prenat ([place]-Geovanni) 1 tab DAILY GTB Last administered on 04/22/19 13:20; Admin Dose 1 TAB; Start 04/04/19 at 11:30 Aspirin (Aspirin) 81 mg DAILY PO Last administered on 04/22/19 13:20; Admin Dose 81 MG; Start 04/05/19 at 09:00 Fentanyl 100 ml @ 2.5 mls/hr TITRATE IV Last administered on 04/21/19 02:38; Admin Dose 4 MLS/HR; Start 04/08/19 at 00:00 Midazolam HCl 50 ml @ 1 mls/hr TITRATE PRN IV agitation Last administered on 04/23/19 06:30; Admin Dose 7 MLS/HR; Start 04/08/19 at 00:00 Norepinephrine 250 ml @ 1.875 mls/ hr TITRATE IV Last administered on 04/22/19 10:21; Admin Dose 3.75 MLS/HR; Start 04/08/19 at 00:00 Mupirocin (Bactroban) 1 applic BID TOP Last administered on 04/22/19 20:19; Admin Dose 1 APPLIC; Start 04/09/19 at 21:00 Budesonide (Pulmicort (Neb)) 0.5 mg BID RESP THERAPY HHN Last administered on 04/22/19 21:19; Admin Dose 0.5 MG; Start 04/12/19 at 09:00 Carvedilol (Coreg) 12.5 mg BID NGT Last administered on 04/22/19 14:20; Admin Dose 12.5 MG; Start 04/12/19 at 21:00 Insulin Aspart (Novolog Insulin Pen) NOVOLOG *MILD* ALGORI... Q4 SC Last a dministered on 04/23/19 05:27; Admin Dose 1 UNIT; Start 04/13/19 at 09:00 Clopidogrel Bisulfate (plaVIX) 75 mg DAILY GTB Last administered on 04/22/19 13:19; Admin Dose 75 MG; Start 04/16/19 at 09:00 Quetiapine Fumarate (Seroquel) 50 mg QHS GTB Last administered on 04/22/19 20:18; Admin Dose 50 MG; Start 04/16/19 at 21:00 Losartan Potassium (Cozaar) 25 mg DAILY PO Last administered on 04/22/19 14:17; Admin Dose 25 MG; Start 04/17/19 at 09:00 Alteplase, Recombinant (Cathflo (Activase)) 2 mg MAY REPEAT X1 PRN CATHETER IF CATHETER REMAINS OCCULUDED Last administered on 04/17/19 11:21; Admin Dose 2 MG; Start 04/17/19 at 09:30 Insulin Glargine (Lantus) 10 units DAILY@0800 SC Last administered on 04/22/19 08:26; Admin Dose 10 UNITS; Start 04/17/19 at 11:00 Metoclopramide HCl (Reglan) 10 mg Q6 IV Last administered on 04/23/19 05:23; Admin Dose 10 MG; Start 04/17/19 at 18:00 Albuterol (Ventolin Hfa) 4 puff Q6H RESP THERAPY INH Last administered on 04/23/19 01:11; Admin Dose 4 PUFF; Start 04/18/19 at 02:00 Ipratropium [place] (Atrovent Hfa) 4 puff Q6H RESP THERAPY INH Last admin istered on 04/23/19 01:11; Admin Dose 4 PUFF; Start 04/18/19 at 02:00 Docusate Sodium (Colace Liquid Cup) 100 mg BID PEG Last administered on 04/21/19 10:02; Admin Dose 100 MG; Start 04/20/19 at 23:00 Polyethylene Glycol (Miralax) 17 gm DAILY PEG Last administered on 04/21/19at 10:02; Admin Dose 17 GM; Start 04/21/19 at 09:00 Nitroglycerin/ Dextrose 250 ml @ 1.5 mls/hr TITRATE IV Last administered on 04/21/19 00:24; Admin Dose 1.5 MLS/HR; Start 04/21/19 at 00:30 Miscellaneous Information (Pending [facility] Order For Wound Care) This patient mcneal... PRN PRN XX WOUND CARE; Start 04/21/19 at 18:00 Assessment/Plan Hospital Course (Demo Recall) 1. History of extensive coronary artery disease status post MT status post coronary bypass graft status post PCI 2. Status post recent CVA with now acute CVA based on MRI 3. End-stage renal disease on hemodialysis 4. Hypertension: labile . hypotensive now 5. Dyslipidemia 6. Severe encephalopathy 7. Dysphagia status post PEG placement 8. Severe anemia and history of GI bleed 9. Respiratory failure status post intubation on the vent now Recommendations: Cont with aspirin Plavix Respiratory care and ventilatory support will be continued. Hemodialysis as per renal. I will decrease the Coreg dose he can tolerate it better transfuse prn vent support for now ? need for trach if family wishes to be full code Thank you for this referral. We will continue to follow along with you SEAN CROUCH MD [facility] SEAN CROUCH MD Apr 23, 2019 07:33
[2019-04-23] MEDS: BUDESONIDE (NEB) 0.5MG/2ML AMP HHN SCH ×2 (08:06→19:28)
[2019-04-23] MEDS: DOXAZOSIN 2 MG TAB NGT SCH (09:00)
[2019-04-23] MEDS: POLYETHYLENE GLYCOL 17 GM PACKET PEG SCH (09:17)
[2019-04-23] MEDS: ASPIRIN 81 MG TAB PO SCH (09:17)
[2019-04-23] MEDS: DOCUSATE SODIUM 10 MG/ML (10ML CUP) PEG SCH ×2 (09:17→21:33)
[2019-04-23] MEDS: CLOPIDOGREL 75 MG TAB GTB SCH (09:18)
[2019-04-23] MEDS: MULTIVIT/CA CARB/B CMPLX/FA TAB GTB SCH (09:18)
[2019-04-23] MEDS: LACTOBACILLUS RHAMNOSUS CAP GTB SCH ×3 (09:18→21:33)
[2019-04-23] MEDS: BACLOFEN 10 MG TAB GTB SCH ×2 (09:18→21:33)
[2019-04-23] MEDS: LOSARTAN 25 MG TAB PO SCH (09:19)
[2019-04-23] MEDS: BALSAM PERU/CASTOR OIL 60 GM TUBE TOP SCH (09:22)
[2019-04-23] MEDS: MUPIROCIN 2% 22 GM OINT TOP SCH ×2 (09:22→21:53)
[2019-04-23] MEDS: INSULIN GLARGINE [LANTus] (100 UNITS/ML) SYG SC SCH (10:11)
--- NOTE | 2019-04-23 10:58 | CONS ---
Consult Date/Type/Reason Admit Date/Time Mar 29, 2019 at 13:16 Initial Consult Date 04/07/19 Type of Consult Pulmonary Requesting Provider: LILLIAN ZHANG MD Date/Time of Note DATE: 04/23/19 TIME: 10:55 Subjective No significant changes continues mechanical ventilation Objective Vital Signs Date Temp Pulse Resp B/P (MAP) Pulse Ox O2 O2 Flow FiO2 Time Delivery Rate 04/23/19 40 10:36 04/23/19 96 18 94 09:28 04/23/19 138/83 06:45 (101) 04/23/19 Mechanical 06:00 Ventilator 04/23/19 98.7 04:00 Intake and Output 04/22/19 04/22/19 04/23/19 1515:00 23:00 07:00 IntakeIntake Total 269.80 ml 168.6375 ml 73.250 ml OutputOutput Total 3500 ml 10 ml 0 ml BalanceBalance -3230.20 ml 158.6375 ml 73.250 ml Exam GENERAL: Elderly appearing gentleman orally intubated on mechanical ventilation VITAL SIGNS: per chart NECK: Supple. No JVD or lymphadenopathy. CARDIAC EXAM: S1, S2. No added sounds or murmurs. CHEST: Diminished air entry bilaterally ABDOMEN: Soft, nontender. No guarding or rebound. EXTREMITIES: No cyanosis, clubbing or edema. NEUROLOGIC: Generalized weakness. Unable to assess Vent Setting Ventilator Support Mode: AC Fraction of Inspired Oxygen pe: 40 Positive End Expiratory Pressu: 5.0 Results/Medications Result Diagram: 04/23/19 0430 04/23/19 0430 Results 24 hrs Laboratory Tests Test 04/22/19 13:28 04/22/19 17:28 04/22/19 20:24 04/23/19 00:16 Bedside Glucose 125 169 174 190 Test 04/23/19 04:30 04/23/19 05:22 04/23/19 09:24 White Blood Count 12.9 #H Red Blood Count 3.78 L Hemoglobin 10.8 L Hematocrit 35.5 L Mean Corpuscular 93.9 Volume Mean Corpuscular 28.6 L Hemoglobin Mean Corpuscular 30.4 L Hemoglobin Concent Red Cell 18.7 H Distribution Width Platelet Count 503 #H Mean Platelet Volume 10.6 H Immature 0.600 H Granulocytes % Neutrophils % 78.7 H Lymphocytes % 10.5 L Monocytes % 7.9 Eosinophils % 1.7 Basophils % 0.6 Nucleated Red Blood 0.0 Cells % Immature 0.080 H Granulocytes # Neutrophils # 10.1 H Lymphocytes # 1.4 Monocytes # 1.0 H Eosinophils # 0.2 Basophils # 0.1 Nucleated Red Blood 0.0 Cells # Sodium Level 143 Potassium Level 4.1 Chloride Level 102 Carbon Dioxide Level 26 Anion Gap 15 H Blood Urea Nitrogen 17 Creatinine 3.63 H Glucose Level 180 Calcium Level 10.3 H Phosphorus Level 2.7 Magnesium Level 2.2 Albumin 4.3 Bedside Glucose 179 201 Medications Current Medications IV Flush (NS 3 ml) 3 ml PER PROTOCOL IV ; Start 03/29/19 at 13:30 Ondansetron HCl (Zofran Inj) 4 mg Q6H PRN IV NAUSEA/VOMITING Last administered on 04/07/19at 18:53; Admin Dose 4 MG; Start 03/29/19 at 13:30 Acetaminophen (Tylenol Tab) 650 mg Q6H PRN PO .PAIN 1-3 OR TEMP Last administered on 03/31/19at 05:48; Admin Dose 650 MG; Start 03/29/19 at 13:30 Hydralazine HCl (Apresoline) 10 mg Q4H PRN IV sbp >185 Last administered on 04/18/19at 14:27; Admin Dose 10 MG; Start 03/29/19 at 14:00 Miscellaneous Information 1 ea NOTE XX ; Start 03/29/19 at 14:30 Glucose (Glutose) 15 gm Q15M PRN PO DECREASED GLUCOSE; Start 03/29/19 at 14:30 Glucose (Glutose) 22.5 gm Q15M PRN PO DECREASED GLUCOSE; Start 03/29/19 at 14:30 Dextrose (D50w Syringe) 25 ml Q15M PRN IV DECREASED GLUCOSE Last administered on 04/13/19at 05:56; Admin Dose 25 ML; Start 03/29/19 at 14:30; Status Hold Dextrose (D50w Syringe) 50 ml Q15M PRN IV DECREASED GLUCOSE; Start 03/29/19 at 14:30 Glucagon (Glucagen) 1 mg Q15M PRN IM DECREASED GLUCOSE; Start 03/29/19 at 14:30 Glucose (Glutose) 15 gm Q15M PRN BUCCAL DECREASED GLUCOSE; Start 03/29/19 at 14:30 Albumin Human 100 ml @ 100 mls/hr WITH DIALYSIS PRN IV SBP <90 DURING DIALYSIS Last administered on 04/22/19 10:02; Admin Dose 100 MLS/HR; Start 03/29/19 at 17:00 Albuterol/ Ipratropium (Duoneb) 3 ml Q2H RESP THERAPY PRN HHN WHEEZING AND RESP DISTRESS Last administered on 04/09/19 08:52; Admin Dose 3 ML; Start 03/29/19 at 18:00 Lorazepam (Ativan) 0.5 mg Q4H PRN IV AGITATION Last administered on 04/16/19 15:45; Admin Dose 0.5 MG; Start 03/29/19 at 18:00 IV Flush (NS 10 ml) 10 ml Q8 PRN IV IV PROTOCOL; Start 03/29/19 at 18:00 Labetalol HCl (Labetalol) 10 mg Q4H PRN IV sbp >160 Last administered on 04/20/19 21:32; Admin Dose 10 MG; Start 03/30/19 at 09:00 Haloperidol (Haldol) 5 mg Q6H PRN IM agitation Last administered on 03/31/19 00:10; Admin Dose 5 MG; Start 03/30/19 at 10:00 Heparin Sodium (Porcine) (Heparin (1000 Units/ml)) 3,200 unit AFTER DIALYSIS CATHETER Last administered on 04/22/19 13:12; Admin Dose 3,200 UNIT; Start at 17:00 Atorvastatin Calcium (Lipitor) 40 mg HS NGT Last administered on 04/22/19 20:18; Admin Dose 40 MG; Start 03/31/19 at 21:00 Baclofen (Lioresal) 10 mg BID GTB Last administered on 04/23/19 09:18; Admin Dose 10 MG; Start 03/31/19 at 21:00 Doxazosin Mesylate (Cardura) 2 mg DAILY NGT Last administered on 04/22/19 14:17; Admin Dose 2 MG; Start 03/31/19 at 14:30 Gabapentin (Neurontin) 100 mg QHS PO Last administered on 04/22/19 20:18; Admin Dose 100 MG; Start 03/31/19 at 21:00 Acetaminophen (Tylenol Liquid) 650 mg Q4H PRN PEG MILD PAIN(1-3)OR ELEVATED TEMP Last administered on 04/16/19 08:42; Admin Dose 650 MG; Start 03/31/19 at 16:00 Lactobacillus Acidophilus/ Rhamnosus (Culturelle) 1 cap TID GTB Last administered on 04/23/19 09:18; Admin Dose 1 CAP; Start 04/02/19 at 13:00 Epoetin [place]-epbx (Retacrit (Esrd)) 10,000 unit MoWeFr@1700 SC Last administered on 04/22/19 17:10; Admin Dose 10,000 UNIT; Start 04/03/19 at 19:30 Lansoprazole (Prevacid) 30 mg BID@0600,1800 GTB Last administered on 04/23/19 05:23; Admin Dose 30 MG; Start 04/04/19 at 18:00 Multivit/Ca Carb/ B Cmplx/FA/Prenat ([place]-Geovanni) 1 tab DAILY GTB Last administered on 04/23/19 09:18; Admin Dose 1 TAB; Start 04/04/19 at 11:30 Aspirin (Aspirin) 81 mg DAILY PO Last administered on 04/23/19 09:17; Admin Dose 81 MG; Start 04/05/19 at 09:00 Fentanyl 100 ml @ 2.5 mls/hr TITRATE IV Last administered on 04/21/19 02:38; Admin Dose 4 MLS/HR; Start 04/08/19 at 00:00 Midazolam HCl 50 ml @ 1 mls/hr TITRATE PRN IV agitation Last administered on 04/23/19 06:30; Admin Dose 7 MLS/HR; Start 04/08/19 at 00:00 Norepinephrine 250 ml @ 1.875 mls/ hr TITRATE IV Last administered on 04/22/19 10:21; Admin Dose 3.75 MLS/HR; Start 04/08/19 at 00:00 Mupirocin (Bactroban) 1 applic BID TOP Last administered on 04/23/19 09:22; Admin Dose 1 APPLIC; Start 04/09/19 at 21:00 Budesonide (Pulmicort (Neb)) 0.5 mg BID RESP THERAPY HHN Last administered on 04/23/19 08:06; Admin Dose 0.5 MG; Start 04/12/19 at 09:00 Insulin Aspart (Novolog Insulin Pen) NOVOLOG *MILD* ALGORI... Q4 SC Last administered on 04/23/19 10:11; Admin Dose 2 UNIT; Start 04/13/19 at 09:00 Clopidogrel Bisulfate (plaVIX) 75 mg DAILY GTB Last administered on 04/23/19 09:18; Admin Dose 75 MG; Start 04/16/19 at 09:00 Quetiapine Fumarate (Seroquel) 50 mg QHS GTB Last administered on 04/22/19 20:18; Admin Dose 50 MG; Start 04/16/19 at 21:00 Losartan Potassium (Cozaar) 25 mg DAILY PO Last administered on 04/23/19 09:19; Admin Dose 25 MG; Start 04/17/19 at 09:00 Alteplase, Recombinant (Cathflo (Activase)) 2 mg MAY REPEAT X1 PRN CATHETER IF CATHETER REMAINS OCCULUDED Last administered on 04/17/19 11:21; Admin Dose 2 MG; Start 04/17/19 at 09:30 Insulin Glargine (Lantus) 10 units DAILY@0800 SC Last administered on 04/23/19 10:11; Admin Dose 10 UNITS; Start 04/17/19 at 11:00 Metoclopramide HCl (Reglan) 10 mg Q6 IV Last administered on 04/23/19 05:23; Admin Dose 10 MG; Start 04/17/19 at 18:00 Albuterol (Ventolin Hfa) 4 puff Q6H RESP THERAPY INH Last administered on 04/23/19 08:07; Admin Dose 4 PUFF; Start 04/18/19 at 02:00 Ipratropium [place] (Atrovent Hfa) 4 puff Q6H RESP THERAPY INH Last administered on 04/23/19 08:07; Admin Dose 4 PUFF; Start 04/18/19 at 02:00 Docusate Sodium (Colace Liquid Cup) 100 mg BID PEG Last administered on 04/23/19 09:17; Admin Dose 100 MG; Start 04/20/19 at 23:00 Polyethylene Glycol (Miralax) 17 gm DAILY PEG Last administered on 04/23/19 09:17; Admin Dose 17 GM; Start 04/21/19 at 09:00 Nitroglycerin/ Dextrose 250 ml @ 1.5 mls/hr TITRATE IV Last administered on 04/21/19at 00:24; Admin Dose 1.5 MLS/HR; Start 04/21/19 at 00:30 [facility] This patient mcneal... PRN PRN XX WOUND CARE; Start 04/21/19 at 18:00 Carvedilol (Coreg) 3.125 mg QID NGT ; Start 04/23/19 at 09:00 Assessment/Plan Hospital Course (Demo Recall) IMP: 1. Respiratory Failure/Ventilator Dependence 2. Status post septic Shock 3. Chronic renal insufficiency on hemodialysis 4. Anemia likely of chronic disease 5. Encephalopathy toxic metabolic RECS: 1. Ventilator support--patient is unable to be liberated from mechanical ventilation secondary to his encephalopathy. We will discuss probability of requiring tracheostomy with family. 2. Broad-spectrum antibiotics. 3. HD/UD. 4. Anti-seizure medications. 5. Continue tube feeding as tolerated Family meeting regarding goals of care Critical care time 40 minutes. Overall prognosis very poor. SAMMI MOSES MD, [facility] Apr 23, 2019 10:58
[2019-04-23] MEDS: NORepinephrine 8MG/250 ML (PMX 250 ML IV SCH (13:46)
--- NOTE | 2019-04-23 14:37 | PN ---
DATE: 04/23/2019 SUBJECTIVE: The patient is noncommunicative, looks comfortable on vent. No fevers overnight. He is off pressors. WBC 12.9, platelets 543, neutrophils 78.7. INDWELLINGS: Endotracheal tube, right chest Perm-A-Cath, PEG, Win[place] and PICC line. PHYSICAL EXAMINATION: GENERAL: Chronically ill-appearing, elderly man who is intubated, in no distress. HEENT: Head atraumatic, normocephalic. NECK: Supple. CHEST: Rise symmetrical. Breath sounds diminished to bases. HEART: S1, S2. ABDOMEN: Soft, bowel tones present. EXTREMITIES: With trace edema. ASSESSMENT: 1. Status post sepsis. 2. Status post pneumonia. 3. Chronic sinusitis and bilateral mastoiditis, patient completed 2 weeks of antibiotics. 4. Methicillin-resistant Staphylococcus aureus nares colonization. 5. Acute on chronic cerebrovascular accident. 6. End-stage renal disease, hemodialysis dependent. 7. Respiratory failure, failed multiple weaning trials. PLAN: The patient remains unchanged, completed antibiotics, now off for 2 days. Family to decide be tween tracheostomy and extubation. Repeat cultures p.r.n. for fever of 101 and above or change in cl inical condition. Dictated By: UMA COLINDRES [employer] BU[employer]ER for RAMONE NUNEZ MD NI/NTS Conf#: [id number] DID#: [id number] CC: STEWART WINTER MD;*EndCC*
--- NOTE | 2019-04-23 15:43 | PN ---
Date/Time of Note Date/Time of Note DATE: 04/23/19 TIME: 15:41 Assessment/Plan VTE Prophylaxis Risk score (from Ns)>0 risk: 8 SCD applied (from Ns): Yes Pharmacological prophylaxis: heparin Lines/Catheters [facility] Assessment/Plan Hospital Course 1. Acute hypoxic respiratory failure - patient remains intubated and too weak to clear his secretions making him a poor candidate for extubation -Family has agreed to tracheostomy placement - Pulmonology consultation appreciated and will continue vent at this time. - patient was extubated 04/17 and needed to be reintubated a few hours later due to desaturation and inability to clear his secretions 2. Acute left thalamic stroke- stable - Neuro on board and appreciate consultation - Carotid US noted with stenosis <70%. Will continue plavix at this time given patient not stable for any type of intervention but will need to be assessed for CEA in the future 3. HCAP/Aspiration Pneumonia- resolving - CXR with no signs of PNA - Pulm on board and appreciate recommendations - ID on board for antibiotic management 4. Acute on chronic encephalopathy - Neurology consultation appreciated. 5. Anemia - stable - GI consultation appreciated and EGD revealed moderate distal esophagitis and gastritis and duodenitis. Colonoscopy showed internal hemorrhoids. Will need repeat colonoscopy in the future 6. End-stage renal disease on hemodialysis - Nephrology on board and appreciate consultation. Continue HD 7. Coronary artery disease status post CABG history - continue home medications - continue on Plavix and aspirin 8. Epilepsy - Continue Keppra - EEG noted with slowing 9. History of CVA with residual left-sided deficit and more recent CVA - New left thalamic stroke appreciated on repeat MRI. - Neurology consultation appreciated -MRI shows old chronic lacunar infarcts bilaterally in the basal ganglia and thalamus as well as right frontal murguia radiata small vessel infarct 10. BPH 11. Septic shock, intermittent- resolved - keeps fluctuating from HTN to hypotensive. Pressors PRN to maintain MAP 65 - Most likely secondary to aspiration pneumonia - ID on board and appreciate recommendations. continue on current IV antibiotics Prophylaxis: Heparin Disposition -Family agreeable for tracheostomy placement Result Diagram: 04/23/19 0430 04/23/19 0430 Results 24hrs Laboratory Tests Test 04/22/19 17:28 04/22/19 20:24 04/23/19 00:16 04/23/19 04:30 Bedside Glucose 169 174 190 White Blood Count 12.9 #H Red Blood Count 3.78 L Hemoglobin 10.8 L Hematocrit 35.5 L Mean Corpuscular 93.9 Volume Mean Corpuscular 28.6 L Hemoglobin Mean Corpuscular 30.4 L Hemoglobin Concent Red Cell 18.7 H Distribution Width Platelet Count 503 #H Mean Platelet Volume 10.6 H Immature 0.600 H Granulocytes % Neutrophils % 78.7 H Lymphocytes % 10.5 L Monocytes % 7.9 Eosinophils % 1.7 Basophils % 0.6 Nucleated Red Blood 0.0 Cells % Immature 0.080 H Granulocytes # Neutrophils # 10.1 H Lymphocytes # 1.4 Monocytes # 1.0 H Eosinophils # 0.2 Basophils # 0.1 Nucleated Red Blood 0.0 Cells # Sodium Level 143 Potassium Level 4.1 Chloride Level 102 Carbon Dioxide Level 26 Anion Gap 15 H Blood Urea Nitrogen 17 Creatinine 3.63 H Glucose Level 180 Calcium Level 10.3 H Phosphorus Level 2.7 Magnesium Level 2.2 Albumin 4.3 Test 04/23/19 05:22 04/23/19 09:24 04/23/19 12:32 Bedside Glucose 179 201 235 H Subjective 24 Hr Interval Summary Subjective hx not possible: pt non-verbal Exam/Review of Systems Exam Vitals Vital Signs Date Temp Pulse Resp B/P (MAP) Pulse Ox O2 O2 Flow FiO2 Time Delivery Rate 04/23/19 50 13:32 04/23/19 92 16 91 13:30 04/23/19 138/83 06:45 (101) 04/23/19 Mechanical 06:00 Ventilator 04/23/19 98.7 04:00 Intake and Output 04/22/19 04/22/19 04/23/19 1515:00 23:00 07:00 IntakeIntake Total 269.80 ml 168.6375 ml 73.250 ml OutputOutput Total 3500 ml 10 ml 0 ml BalanceBalance -3230.20 ml 158.6375 ml 73.250 ml Constitutional: non-verbal Respiratory: clear to auscultation Cardiovascular: regular rate and rhythm Gastrointestinal: soft; No distended Musculoskeletal: nl extremities to inspection Results Results 24hrs Laboratory Tests Test 04/22/19 17:28 04/22/19 20:24 04/23/19 00:16 04/23/19 04:30 Bedside Glucose 169 174 190 White Blood Count 12.9 #H Red Blood Count 3.78 L Hemoglobin 10.8 L Hematocrit 35.5 L Mean Corpuscular 93.9 Volume Mean Corpuscular 28.6 L Hemoglobin Mean Corpuscular 30.4 L Hemoglobin Concent Red Cell 18.7 H Distribution Width Platelet Count 503 #H Mean Platelet Volume 10.6 H Immature 0.600 H Granulocytes % Neutrophils % 78.7 H Lymphocytes % 10.5 L Monocytes % 7.9 Eosinophils % 1.7 Basophils % 0.6 Nucleated Red Blood 0.0 Cells % Immature 0.080 H Granulocytes # Neutrophils # 10.1 H Lymphocytes # 1.4 Monocytes # 1.0 H Eosinophils # 0.2 Basophils # 0.1 Nucleated Red Blood 0.0 Cells # Sodium Level 143 Potassium Level 4.1 Chloride Level 102 Carbon Dioxide Level 26 Anion Gap 15 H Blood Urea Nitrogen 17 Creatinine 3.63 H Glucose Level 180 Calcium Level 10.3 H Phosphorus Level 2.7 Magnesium Level 2.2 Albumin 4.3 Test 04/23/19 05:22 04/23/19 09:24 04/23/19 12:32 Bedside Glucose 179 201 235 H Medications Medication Current Medications IV Flush (NS 3 ml) 3 ml PER PROTOCOL IV ; Start 03/29/19 at 13:30 Ondansetron HCl (Zofran Inj) 4 mg Q6H PRN IV NAUSEA/VOMITING Last administered on 04/07/19at 18:53; Admin Dose 4 MG; Start 03/29/19 at 13:30 Acetaminophen (Tylenol Tab) 650 mg Q6H PRN PO .PAIN 1-3 OR TEMP Last administered on 03/31/19at 05:48; Admin Dose 650 MG; Start 03/29/19 at 13:30 Hydralazine HCl (Apresoline) 10 mg Q4H PRN IV sbp >185 Last administered on 04/18/19at 14:27; Admin Dose 10 MG; Start 03/29/19 at 14:00 Miscellaneous Information 1 ea NOTE XX ; Start 03/29/19 at 14:30 Glucose (Glutose) 15 gm Q15M PRN PO DECREASED GLUCOSE; Start 03/29/19 at 14:30 Glucose (Glutose) 22.5 gm Q15M PRN PO DECREASED GLUCOSE; Start 03/29/19 at 14:30 Dextrose (D50w Syringe) 25 ml Q15M PRN IV DECREASED GLUCOSE Last administered on 04/13/19 05:56; Admin Dose 25 ML; Start 03/29/19 at 14:30; Status Hold Dextrose (D50w Syringe) 50 ml Q15M PRN IV DECREASED GLUCOSE; Start 03/29/19 at 14:30 Glucagon (Glucagen) 1 mg Q15M PRN IM DECREASED GLUCOSE; Start 03/29/19 at 14:30 Glucose (Glutose) 15 gm Q15M PRN BUCCAL DECREASED GLUCOSE; Start 03/29/19 at 14:30 Albumin Human 100 ml @ 100 mls/hr WITH DIALYSIS PRN IV SBP <90 DURING DIALYSIS Last administered on 04/22/19 10:02; Admin Dose 100 MLS/HR; Start 03/29/19 at 17:00 Albuterol/ Ipratropium (Duoneb) 3 ml Q2H RESP THERAPY PRN HHN WHEEZING AND RESP DISTRESS Last administered on 04/09/19 08:52; Admin Dose 3 ML; Start 03/29/19 at 18:00 Lorazepam (Ativan) 0.5 mg Q4H PRN IV AGITATION Last administered on 04/16/19 15:45; Admin Dose 0.5 MG; Start 03/29/19 at 18:00 IV Flush (NS 10 ml) 10 ml Q8 PRN IV IV PROTOCOL; Start 03/29/19 at 18:00 Labetalol HCl (Labetalol) 10 mg Q4H PRN IV sbp >160 Last administered on 04/20/19 21:32; Admin Dose 10 MG; Start 03/30/19 at 09:00 Haloperidol (Haldol) 5 mg Q6H PRN IM agitation Last administered on 03/31/19 00:10; Admin Dose 5 MG; Start 03/30/19 at 10:00 Heparin Sodium (Porcine) (Heparin (1000 Units/ml)) 3,200 unit AFTER DIALYSIS CATHETER Last administered on 04/22/19 13:12; Admin Dose 3,200 UNIT; Start 03/30/19 at 17:00 Atorvastatin Calcium (Lipitor) 40 mg HS NGT Last administered on 04/22/19 20: 18; Admin Dose 40 MG; Start 03/31/19 at 21:00 Baclofen (Lioresal) 10 mg BID GTB Last administered on 04/23/19 09:18; Admin Dose 10 MG; Start 03/31/19 at 21:00 Doxazosin Mesylate (Cardura) 2 mg DAILY NGT Last administered on 04/22/19 14:17; Admin Dose 2 MG; Start 03/31/19 at 14:30 Gabapentin (Neurontin) 100 mg QHS PO Last administered on 04/22/19 20:18; Admin Dose 100 MG; Start 03/31/19 at 21:00 Acetaminophen (Tylenol Liquid) 650 mg Q4H PRN PEG MILD PAIN(1-3)OR ELEVATED TEMP Last administered on 04/16/19 08:42; Admin Dose 650 MG; Start 03/31/19 at 16:00 Lactobacillus Acidophilus/ Rhamnosus (Culturelle) 1 cap TID GTB Last administered on 04/23/19 12:48; Admin Dose 1 CAP; Start 04/02/19 at 13:00 Epoetin [place]-epbx (Retacrit (Esrd)) 10,000 unit MoWeFr@1700 SC Last administered on 04/22/19 17:10; Admin Dose 10,000 UNIT; Start 04/03/19 at 19:30 Lansoprazole (Prevacid) 30 mg BID@0600,1800 GTB Last administered on 04/23/19 05:23; Admin Dose 30 MG; Start 04/04/19 at 18:00 Multivit/Ca Carb/ B Cmplx/FA/Prenat (Karena-Geovanni) 1 tab DAILY GTB Last administered on 04/23/19 09:18; Admin Dose 1 TAB; Start 04/04/19 at 11:30 Aspirin (Aspirin) 81 mg DAILY PO Last administered on 04/23/19 09:17; Admin Dose 81 MG; Start 04/05/19 at 09:00 Fentanyl 100 ml @ 2.5 mls/hr TITRATE IV Last administered on 04/21/19 02:38; Admin Dose 4 MLS/HR; Start 04/08/19 at 00:00 Midazolam HCl 50 ml @ 1 mls/hr TITRATE PRN IV agitation Last administered on 04/23/19 15:33; Admin Dose 5 MLS/HR; Start 04/08/19 at 00:00 Norepinephrine 250 ml @ 1.875 mls/ hr TITRATE IV Last administered on 04/23/19 13:46; Admin Dose 1.875 MLS/HR; Start 04/08/19 at 00:00 Mupirocin (Bactroban) 1 applic BID TOP Last administered on 04/23/19 09:22; Admin Dose 1 APPLIC; Start 04/09/19 at 21:00 Budesonide (Pulmicort (Neb)) 0.5 mg BID RESP THERAPY HHN Last administered on 04/23/19 08:06; Admin Dose 0.5 MG; Start 04/12/19 at 09:00 Insulin Aspart (Novolog Insulin Pen) NOVOLOG *MILD* ALGORI... Q4 SC Last administered on 04/23/19 12:57; Admin Dose 3 UNIT; Start 04/13/19 at 09:00 Clopidogrel Bisulfate (plaVIX) 75 mg DAILY GTB Last administered on 04/23/19 09:18; Admin Dose 75 MG; Start 04/16/19 at 09:00 Quetiapine Fumarate (Seroquel) 50 mg QHS GTB Last administered on 04/22/19 20:18; Admin Dose 50 MG; Start 04/16/19 at 21:00 Losartan Potassium (Cozaar) 25 mg DAILY PO Last administered on 04/23/19 09:19; Admin Dose 25 MG; Start 04/17/19 at 09:00 Alteplase, Recombinant (Cathflo (Activase)) 2 mg MAY REPEAT X1 PRN CATHETER IF CATHETER REMAINS OCCULUDED Last administered on 04/17/19 11:21; Admin Dose 2 MG; Start 04/17/19 at 09:30 Insulin Glargine (Lantus) 10 units DAILY@0800 SC Last administered on 04/23/19 10:11; Admin Dose 10 UNITS; Start 04/17/19 at 11:00 Metoclopramide HCl (Reglan) 10 mg Q6 IV Last administered on 04/23/19 12:47; Admin Dose 10 MG; Start 04/17/19 at 18:00 Albuterol (Ventolin Hfa) 4 puff Q6H RESP THERAPY INH Last administered on 04/23/19 13:33; Admin Dose 4 PUFF; Start 04/18/19 at 02:00 Ipratropium [place] (Atrovent Hfa) 4 puff Q6H RESP THERAPY INH Last administered on 04/23/19at 13:33; Admin Dose 4 PUFF; Start 04/18/19 at 02:00 Docusate Sodium (Colace Liquid Cup) 100 mg BID PEG Last administered on 04/23/19at 09:17; Admin Dose 100 MG; Start 04/20/19 at 23:00 Polyethylene Glycol (Miralax) 17 gm DAILY PEG Last administered on 04/23/19at 09:17; Admin Dose 17 GM; Start 04/21/19 at 09:00 Nitroglycerin/ Dextrose 250 ml @ 1.5 mls/hr TITRATE IV Last administered on 04/21/19at 00:24; Admin Dose 1.5 MLS/HR; Start 04/21/19 at 00:30 Miscellaneous Information (Pending [facility] Order For Wound Care) This patient mcneal... PRN PRN XX WOUND CARE; Start 04/21/19 at 18:00 Carvedilol (Coreg) 3.125 mg QID NGT ; Start 04/23/19 at 09:00 ZHANG YOUNG Apr 23, 2019 15:43
--- NOTE | 2019-04-23 16:51 | CONS ---
Assessment/Plan Assessment/Plan Assessment/Plan (Daily) 1. Acute hypoxemic respiratory failure intubated on ventilator - persistently failed weaning 2. Accelerated HTN 3. ESRD on HD - MWF schedule at [facility] HD center 4. H/o CAD s/p CABG before 5. H/o CAD with previous recent stent placement in 09/2018 6. h/o HTN 7. H/o DM II 8. h/o HL 9. 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 H/o BPH Plan: s/p Family meeting today, Family wants tracheostomy , Bp stable, Plan for HD tomorrow- then will continue pt on MWF schedule while being in hospital pt is on Coreg 12.5 mg pO BID, losartan 25 mg po daily and HYdralazine 50mg PO TID , cardura 2 mg po daily Epogen 45807 units SQ MWF will follow u Consultation Date/Type/Reason Admit Date/Time Mar 29, 2019 at 13:16 Initial Consult Date 03/29/19 Type of Consult NEPHROLOGY Requesting Provider: LILLIAN ZHANG MD Date/Time of Note DATE: 04/23/19 TIME: 16:51 24 HR Interval Summary Free Text/Dictation s/p Family meeting today, Family wants tracheostomy , Bp stable, Plan for HD tomorrow Exam/Review of Systems Exam Vitals Vital Signs Date Temp Pulse Resp B/P (MAP) Pulse Ox O2 O2 Flow FiO2 Time Delivery Rate 04/23/19 50 13:32 04/23/19 92 16 91 13:30 04/23/19 138/83 06:45 (101) 04/23/19 Mechanical 06:00 Ventilator 04/23/19 98.7 04:00 Intake and Output 04/22/19 04/22/19 04/23/19 1515:00 23:00 07:00 IntakeIntake Total 269.80 ml 168.6375 ml 73.250 ml OutputOutput Total 3500 ml 10 ml 0 ml BalanceBalance -3230.20 ml 158.6375 ml 73.250 ml Exam Constitutional: intubated on ventilator , ET tube in place Respiratory: crackles/rales, diminished breath sounds Cardiovascular: regular rate and rhythm, nl pulses Gastrointestinal: soft, non-tender Musculoskeletal: swelling (1-2+pitting edema ) Extremities: normal pulses Neurological: Non focal Results Result Diagram: 04/23/19 0430 04/23/19 0430 Results 24hrs Laboratory Tests Test 04/22/19 17:28 04/22/19 20:24 04/23/19 00:16 04/23/19 04:30 Bedside Glucose 169 174 190 White Blood Count 12.9 #H Red Blood Count 3.78 L Hemoglobin 10.8 L Hematocrit 35.5 L Mean Corpuscular 93.9 Volume Mean Corpuscular 28.6 L Hemoglobin Mean Corpuscular 30.4 L Hemoglobin Concent Red Cell 18.7 H Distribution Width Platelet Count 503 #H Mean Platelet Volume 10.6 H Immature 0.600 H Granulocytes % Neutrophils % 78.7 H Lymphocytes % 10.5 L Monocytes % 7.9 Eosinophils % 1.7 Basophils % 0.6 Nucleated Red Blood 0.0 Cells % Immature 0.080 H Granulocytes # Neutrophils # 10.1 H Lymphocytes # 1.4 Monocytes # 1.0 H Eosinophils # 0.2 Basophils # 0.1 Nucleated Red Blood 0.0 Cells # Sodium Level 143 Potassium Level 4.1 Chloride Level 102 Carbon Dioxide Level 26 Anion Gap 15 H Blood Urea Nitrogen 17 Creatinine 3.63 H Glucose Level 180 Calcium Level 10.3 H Phosphorus Level 2.7 Magnesium Level 2.2 Albumin 4.3 Test 04/23/19 05:22 04/23/19 09:24 04/23/19 12:32 Bedside Glucose 179 201 235 H Medications Medication Current Medications IV Flush (NS 3 ml) 3 ml PER PROTOCOL IV ; Start 03/29/19 at 13:30 Ondansetron HCl (Zofran Inj) 4 mg Q6H PRN IV NAUSEA/VOMITING Last administered on 04/07/19at 18:53; Admin Dose 4 MG; Start 03/29/19 at 13:30 Acetaminophen (Tylenol Tab) 650 mg Q6H PRN PO .PAIN 1-3 OR TEMP Last administer ed on 03/31/19at 05:48; Admin Dose 650 MG; Start 03/29/19 at 13:30 Hydralazine HCl (Apresoline) 10 mg Q4H PRN IV sbp >185 Last administered on 04/18/19at 14:27; Admin Dose 10 MG; Start 03/29/19 at 14:00 Miscellaneous Information 1 ea NOTE XX ; Start 03/29/19 at 14:30 Glucose (Glutose) 15 gm Q15M PRN PO DECREASED GLUCOSE; Start 03/29/19 at 14:30 Glucose (Glutose) 22.5 gm Q15M PRN PO DECREASED GLUCOSE; Start 03/29/19 at 14:30 Dextrose (D50w Syringe) 25 ml Q15M PRN IV DECREASED GLUCOSE Last administered on 04/13/19 05:56; Admin Dose 25 ML; Start 03/29/19 at 14:30; Status Hold Dextrose (D50w Syringe) 50 ml Q15M PRN IV DECREASED GLUCOSE; Start 03/29/19 at 14:30 Glucagon (Glucagen) 1 mg Q15M PRN IM DECREASED GLUCOSE; Start 03/29/19 at 14:30 Glucose (Glutose) 15 gm Q15M PRN BUCCAL DECREASED GLUCOSE; Start 03/29/19 at 14:30 Albumin Human 100 ml @ 100 mls/hr WITH DIALYSIS PRN IV SBP <90 DURING DIALYSIS Last administered on 04/22/19at 10:02; Admin Dose 100 MLS/HR; Start 03/29/19 at 17:00 Albuterol/ Ipratropium (Duoneb) 3 ml Q2H RESP THERAPY PRN HHN WHEEZING AND RESP DISTRESS Last administered on 04/09/19at 08:52; Admin Dose 3 ML; Start 03/29/19 at 18:00 Lorazepam (Ativan) 0.5 mg Q4H PRN IV AGITATION Last administered on 04/16/19at 15:45; Admin Dose 0.5 MG; Start 03/29/19 at 18:00 IV Flush (NS 10 ml) 10 ml Q8 PRN IV IV PROTOCOL; Start 03/29/19 at 18:00 Labetalol HCl (Labetalol) 10 mg Q4H PRN IV sbp >160 Last administered on 04/20/19 21:32; Admin Dose 10 MG; Start 03/30/19 at 09:00 Haloperidol (Haldol) 5 mg Q6H PRN IM agitation Last administered on 03/31/19at 00:10; Admin Dose 5 MG; Start 03/30/19 at 10:00 Heparin Sodium (Porcine) (Heparin (1000 Units/ml)) 3,200 unit AFTER DIALYSIS CATHETER Last administered on 04/22/19at 13:12; Admin Dose 3,200 UNIT; Start 03/30/19 at 17:00 Atorvastatin Calcium (Lipitor) 40 mg HS NGT Last administered on 04/22/19 20:18; Admin Dose 40 MG; Start 03/31/19 at 21:00 Baclofen (Lioresal) 10 mg BID GTB Last administered on 04/23/19 09:18; Admin Dose 10 MG; Start 03/31/19 at 21:00 Doxazosin Mesylate (Cardura) 2 mg DAILY NGT Last administered on 04/22/19 14:17; Admin Dose 2 MG; Start 03/31/19 at 14:30 Gabapentin (Neurontin) 100 mg QHS PO Last administered on 04/22/19 20:18; Admin Dose 100 MG; Start 03/31/19 at 21:00 Acetaminophen (Tylenol Liquid) 650 mg Q4H PRN PEG MILD PAIN(1-3)OR ELEVATED TEMP Last administered on 04/16/19 08:42; Admin Dose 650 MG; Start 03/31/19 at 16:00 Lactobacillus Acidophilus/ Rhamnosus (Culturelle) 1 cap TID GTB Last administered on 04/23/19 12:48; Admin Dose 1 CAP; Start 04/02/19 at 13:00 Epoetin [place]-epbx (Retacrit (Esrd)) 10,000 unit MoWeFr@1700 SC Last administered on 04/22/19 17:10; Admin Dose 10,000 UNIT; Start 04/03/19 at 19:30 Lansoprazole (Prevacid) 30 mg BID@0600,1800 GTB Last administered on 04/23/19 05:23; Admin Dose 30 MG; Start 04/04/19 at 18:00 Multivit/Ca Carb/ B Cmplx/FA/Prenat (Karena-Geovanni) 1 tab DAILY GTB Last administered on 04/23/19 09:18; Admin Dose 1 TAB; Start 04/04/19 at 11:30 Aspirin (Aspirin) 81 mg DAILY PO Last administered on 04/23/19 09:17; Admin Dose 81 MG; Start 04/05/19 at 09:00 Fentanyl 100 ml @ 2.5 mls/hr TITRATE IV Last administered on 04/21/19 02:38; Admin Dose 4 MLS/HR; Start 04/08/19 at 00:00 Midazolam HCl 50 ml @ 1 mls/hr TITRATE PRN IV agitation Last administered on 04/23/19 15:33; Admin Dose 5 MLS/HR; Start 04/08/19 at 00:00 Norepinephrine 250 ml @ 1.875 mls/ hr TITRATE IV Last administered on 04/23/19 13:46; Admin Dose 1.875 MLS/HR; Start 04/08/19 at 00:00 Mupirocin (Bactroban) 1 applic BID TOP Last administered on 04/23/19 09:22; Admin Dose 1 APPLIC; Start 04/09/19 at 21:00 Budesonide (Pulmicort (Neb)) 0.5 mg BID RESP THERAPY HHN Last administered on 04/23/19 08:06; Admin Dose 0.5 MG; Start 04/12/19 at 09:00 Insulin Aspart (Novolog Insulin Pen) NOVOLOG *MILD* ALGORI... Q4 SC Last administered on 04/23/19 12:57; Admin Dose 3 UNIT; Start 04/13/19 at 09:00 Clopidogrel Bisulfate (plaVIX) 75 mg DAILY GTB Last administered on 04/23/19 09:18; Admin Dose 75 MG; Start 04/16/19 at 09:00 Quetiapine Fumarate (Seroquel) 50 mg QHS GTB Last administered on 04/22/19 20:18; Admin Dose 50 MG; Start 04/16/19 at 21:00 Losartan Potassium (Cozaar) 25 mg DAILY PO Last administered on 04/23/19 09:19; Admin Dose 25 MG; Start 04/17/19 at 09:00 Alteplase, Recombinant (Cathflo (Activase)) 2 mg MAY REPEAT X1 PRN CATHETER IF CATHETER REMAINS OCCULUDED Last administered on 04/17/19 11:21; Admin Dose 2 MG; Start 04/17/19 at 09:30 Insulin Glargine (Lantus) 10 units DAILY@0800 SC Last administered on 04/23/19 10:11; Admin Dose 10 UNITS; Start 04/17/19 at 11:00 Metoclopramide HCl (Reglan) 10 mg Q6 IV Last administered on 04/23/19 12:47; Admin Dose 10 MG; Start 04/17/19 at 18:00 Albuterol (Ventolin Hfa) 4 puff Q6H RESP THERAPY INH Last administered on 04/23/19 13:33; Admin Dose 4 PUFF; Start 04/18/19 at 02:00 Ipratropium [place] (Atrovent Hfa) 4 puff Q6H RESP THERAPY INH Last administered on 04/23/19 13:33; Admin Dose 4 PUFF; Start 04/18/19 at 02:00 Docusate Sodium (Colace Liquid Cup) 100 mg BID PEG Last administered on 04/23/19 09:17; Admin Dose 100 MG; Start 04/20/19 at 23:00 Polyethylene Glycol (Miralax) 17 gm DAILY PEG Last administered on 04/23/19 09:17; Admin Dose 17 GM; Start 04/21/19 at 09:00 Nitroglycerin/ Dextrose 250 ml @ 1.5 mls/hr TITRATE IV Last administered on 04/21/19at 00:24; Admin Dose 1.5 MLS/HR; Start 04/21/19 at 00:30 [facility] This patient mcneal... PRN PRN XX WOUND CARE; Start 04/21/19 at 18:00 Carvedilol (Coreg) 3.125 mg QID NGT ; Start 04/23/19 at 09:00 BETZAIDA YAÑEZ MD Apr 23, 2019 16:51
[2019-04-23] MEDS: ATORVASTATIN 40 MG TAB NGT SCH (21:33)
[2019-04-23] MEDS: GABAPENTIN 100 MG CAP PO SCH (21:33)
[2019-04-23] MEDS: QUETIAPINE 25 MG TAB GTB SCH (21:40)
[2019-04-24] VITALS (99 sets, daily range): BP systolic 69–198; BP diastolic 37–117; PULSE 75–124; RESP 8–27
[2019-04-24] MEDS: METOCLOPRAMIDE 10 MG INJ IV SCH ×5 (00:51→23:46)
[2019-04-24] MEDS: ALBUTEROL HFA 8 GM INHALER INH SCH ×4 (01:16→19:50)
[2019-04-24] MEDS: IPRATROPIUM (HFA) 12.9 GM INHALER INH SCH ×4 (01:16→19:50)
[2019-04-24] MEDS: INSULIN ASPART [NOVOLOG] 3 ML PEN SC SCH ×6 (01:22→20:30)
[2019-04-24] MEDS: MIDAZOLAM (DRIP) 50 mg/50 mL 50 ML IV PRN ×2 (02:31→15:13)
[2019-04-24] MEDS: LANSOPRAZOLE 30 MG CAP GTB SCH ×2 (05:49→18:20)
--- NOTE | 2019-04-24 07:45 | CONS ---
Consult Date/Type/Reason Admit Date/Time Mar 29, 2019 at 13:16 Initial Consult Date 04/07/19 Type of Consultation: cv Requesting Provider: LILLIAN ZHANG MD Date/Time of Note DATE: 04/24/19 TIME: 07:44 Subjective Interventional cardiology follow-up progress note Subjective: Discussed with the staff and Telemetry was reviewed. pt remains in NSR PT remains intubated on vent BP has been intermittently low and required to be on Levophed drip again but lo w dose now Patient nonverbal. events noted: extubated and had to be re-intubated on 04/17/19 objective: General: s/p intubation on the ventilator HEENT: NC/AT. pupils are equal. round. NECK:. no stridor. CV: RRR. systolic murmur; no gallop or rubs. PULM: + rhonchi. GI: SOFT, NT, ND, no rebound or guarding s/pPEG Extremity: trace B/L LE edema. no clubbing. neuro: opens his eyes Psych: Agitated rectal: deferred : normal ECHO 04/09/19 REVIEWED Normal left ventricular systolic function. Normal left ventricular cavity size. Mild concentric left ventricular hypertrophy. Ejection fraction is visually estimated at 55 %. Tissue Doppler/Mitral Doppler indices are consistent with impaired relaxation (Stage I diastolic dysfunction). Mild mitral leaflet calcification. Mild mitral annular calcification. Mild mitral valve regurgitation. No significant aortic stenosis or insufficiency. Aortic cusps appear mildly calcified. Normal appearance of the tricuspid valve. The estimated Peak RVSP is 25 mmHg. There is trace tricuspid regurgitation. cxr 04/09/19 Persistent small left greater than right pleural effusions with associated atelectasis/infiltrate. CXR . Appropriate position of central lines and endotracheal tube. 2. Bilateral perihilar and basilar airspace opacities representing pulmonary edema or infection. 3. Small left pleural effusion. CXR Decrease in left-sided pleural effusion. Left basilar opacity may represent atelectasis, but edema or infection not excluded. MRI Brain 04/16 1. Acute, ischemic, small vessel left thalamic infarct. 2. Chronic right greater than left bilateral basal ganglia and bilateral thalamic lacunar infarcts 3. Moderate chronic microvascular ischemic disease and diffuse volume loss 4. Chronic right frontal murguia radiata small vessel infarct 5. 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 Objective Vitals Vital Signs Date Temp Pulse Resp B/P (MAP) Pulse Ox O2 O2 Flow FiO2 Time Delivery Rate 04/24/19 82 16 96 40 05:05 04/24/19 108/55 Mechanical 04:45 (72) Ventilator 04/24/19 97.5 04:00 Intake and Output 04/23/19 04/23/19 04/24/19 1515:00 23:00 07:00 IntakeIntake Total 396.250 ml 448.000 ml 389.00 ml OutputOutput Total 0 ml 0 ml BalanceBalance 396.250 ml 448.000 ml 389.00 ml Results/Medications Result Diagram: 04/24/19 0400 04/24/19 0400 Results 24 hrs Laboratory Tests Test 04/23/19 09:24 04/23/19 12:32 04/23/19 18:22 04/23/19 21:41 Bedside Glucose 201 235 H 316 H 289 H Test 04/24/19 01:18 04/24/19 04:00 04/24/19 05:24 Bedside Glucose 283 H 316 H White Blood Count 13.5 H Red Blood Count 3.49 L Hemoglobin 10.2 L Hematocrit 33.5 L Mean Corpuscular 96.0 Volume Mean Corpuscular 29.2 Hemoglobin Mean Corpuscular 30.4 L Hemoglobin Concent Red Cell 19.0 H Distribution Width Platelet Count 466 H Mean Platelet Volume 10.8 H Immature 0.900 H Granulocytes % Neutrophils % 80.2 H Lymphocytes % 8.2 L Monocytes % 8.0 Eosinophils % 2.0 Basophils % 0.7 Nucleated Red Blood 0.0 Cells % Immature 0.120 H Granulocytes # Neutrophils # 10.8 H Lymphocytes # 1.1 Monocytes # 1.1 H Eosinophils # 0.3 Basophils # 0.1 Nucleated Red Blood 0.0 Cells # Sodium Level 140 Potassium Level 3.6 Chloride Level 100 Carbon Dioxide Level 27 Anion Gap 13 Blood Urea Nitrogen 28 #H Creatinine 5.43 H Glucose Level 351 #H Calcium Level 10.5 H Phosphorus Level 3.2 Magnesium Level 2.3 Albumin 4.0 Home Meds Reported Medications Bisacodyl (Dulcolax) 10 Mg Supp.rect, 10 MG RC DAILY PRN for CONSTIPATION, SUPP.RECT 03/29/19 Sodium Phosphate,[place]-Dibasic (Enema Ready To Use) 133 Ml Enema, 133 ML RC EVERY 2 DAYS PRN for CONSTIPATION, ENEMA 03/29/19 Acetaminophen* (Acetaminophen*) 650 Mg Tablet, 650 MG GTB Q4 PRN for MILD PAIN L EVEL 1-3, #30 TAB AND FEVER 03/29/19 Acetaminophen* (Acetaminophen*) 500 MG Extra Strength Tablet, 1000 MG GTB Q4H PRN for MODERATE PAIN LEVEL 4-6, TAB 03/29/19 Acetaminophen* (Acetaminophen*) 500 MG Extra Strength Tablet, 1000 MG GTB BID PRN for GENERAL BODY PAIN, TAB 03/29/19 Amino Acids/Protein Hydrolys (Pro-Stat Awc Liquid) 30 Ml Liquid, 30 ML GTB DAILY SUGAR FREE 03/29/19 Multivitamin* (Daily Value*) 1 Each Tablet, 1 TAB GTB DAILY, TAB 03/29/19 Ascorbic Acid* (Vitamin C*) 500 Mg Capsule.sa, 500 MG GTB DAILY, CAP 03/29/19 Ferrous Sulfate (Ferrous Sulfate) 300 Mg/5 Ml Liquid, 325 MG GTB DAILY 03/29/19 Cran/Vitc/Mannose/Inulin/Brom (Uti-Stat Liquid) 3,875 Mg/30 Ml Liquid, 3875 MG GTB DAILY 03/29/19 Cranberry Extract (Cranberry) 425 Mg Capsule, 425 MG GTB DAILY, CAP 03/29/19 Insulin Glulisine (Apidra Solostar) 100 Unit/1 Ml Insuln.pen, 4 UNIT SQ TIDM A, #1 TUB 03/29/19 Insulin Glargine,Hum.rec.anlog (Basaglar Kwikpen U-100) 100 Unit/1 Ml Insuln.pen, 25 UNIT SC QHS, EA 03/29/19 Insulin Regular, Human (Humulin R) 100 Unit/1 Ml Vial, 0 IJ AC MEALS AND B EDTIME, VIAL 0-150 = 0 UNIT 151-200 = 1 UNIT 201-250 = 2 UNITS 251-300 = 3 UNITS 301-350 = 4 UNITS 351-400 = 5 UNITS OVER 400 GIVE 6 UNITS UNDER 70 OR OVER 400 NOTIFY 03/29/19 Sertraline Hcl* (Sertraline Hcl*) 25 Mg Tablet, 25 MG GTB DAILY, #30 TAB 03/29/19 Lorazepam* (Ativan*) 0.5 Mg Tablet, 0.5 MG GTB DAILY PRN for ANXIETY, #30 TAB 03/29/19 Quetiapine Fumarate* (Seroquel*) 25 Mg Tablet, 25 MG GTB HS, #30 TAB 03/29/19 Lorazepam* (Lorazepam*) 0.5 Mg Tablet, 0.5 MG GTB DAILY PRN for ANXIETY, TAB 03/29/19 Clonidine Hcl* (Clonidine Hcl*) 0.1 Mg Tab, 0.1 MG GTB DAILY PRN for ELEVATED BLOOD PRESSURE, TAB SBP >160 03/29/19 Azelastine Hcl* (Azelastine Hcl*) 137 Mcg/0.137 Ml [place].pump, 2 SPRAYS NASAL BID, #1 EA TO EACH NOSTRIL 03/29/19 Carvedilol* (Carvedilol*) 12.5 Mg Tablet, 12.5 MG GTB BID, #60 TAB 03/29/19 Diltiazem Hcl* (Cardizem CD*) 240 Mg Cap.sr.24h, 240 MG GTB DAILY, #30 CAP 03/29/19 Ergocalciferol (Vitamin D2) (VITAMIN D2) 50,000 Unit Capsule, 19228 UNIT GTB EVERY MONDAY, CAP 03/29/19 Hydralazine Hcl* (Hydralazine Hcl*) 50 Mg Tab, 50 MG GTB TID PRN for ELEVATED BLOOD PRESSURE, #60 TAB 03/29/19 Losartan Potassium* (Losartan Potassium*) 100 Mg Tablet, 100 MG GTB DAILY, TAB 03/29/19 Metoprolol Succinate* (Toprol XL*) 25 Mg Tab.sr.24h, 25 MG GTB DAILY, #30 TAB 03/29/19 Linagliptin (TRADJENTA) 5 Mg Tablet, 5 MG GTB DAILY, TAB 03/29/19 Albuterol Sulfate* (Proair HFA*) 8.5 Gm Hfa.aer.ad, 2 PUFF INH Q4H PRN for WHEEZING AND SOB, #1 INHALER 03/29/19 Ranitidine Hcl* (Ranitidine Hcl*) 300 Mg Tablet, 300 MG GTB HS, #30 TAB 03/29/19 Levetiracetam* (Keppra*) 500 Mg Tablet, 500 MG GTB BID, TAB 03/29/19 Gabapentin* (Gabapentin*) 100 Mg Capsule, 100 MG GTB QHS, #90 CAP 03/29/19 Doxazosin Mesylate* (Doxazosin Mesylate*) 2 Mg Tablet, 2 MG GTB HS, TAB 03/29/19 Docusate Sodium* (Dok*) 100 Mg Tablet, 100 MG GTB BID, #60 CAP 03/29/19 Cyanocobalamin (Vitamin B-12) (Cyanocobalamin Injection) 1,000 Mcg/1 Ml Vial, 1000 MCG IJ EVERY MONDAY, VIAL 03/29/19 Clopidogrel Bisulfate (Clopidogrel) 75 Mg Tablet, 75 MG GTB DAILY, #30 TAB 03/29/19 Calcium Carbonate ([place]-500) 500 Mg Tablet, 500 MG GTB DAILY, TAB 03/29/19 Baclofen* (Baclofen*) 10 Mg Tablet, 10 MG GTB BID, TAB 03/29/19 Atorvastatin* (Atorvastatin*) 40 Mg Tablet, 40 MG GTB QHS, #30 TAB 03/29/19 Aspirin (Low Dose Aspirin) 81 Mg Tablet.dr, 81 MG GTB DAILY, #30 TAB 03/29/19 Medications Current Medications IV Flush (NS 3 ml) 3 ml PER PROTOCOL IV ; Start 03/29/19 at 13:30 Ondansetron HCl (Zofran Inj) 4 mg Q6H PRN IV NAUSEA/VOMITING Last administered on 04/07/19at 18:53; Admin Dose 4 MG; Start 03/29/19 at 13:30 Acetaminophen (Tylenol Tab) 650 mg Q6H PRN PO .PAIN 1-3 OR TEMP Last administered on 03/31/19at 05:48; Admin Dose 650 MG; Start 03/29/19 at 13:30 Hydralazine HCl (Apresoline) 10 mg Q4H PRN IV sbp >185 Last administered on 04/18/19at 14:27; Admin Dose 10 MG; Start 03/29/19 at 14:00 Miscellaneous Information 1 ea NOTE XX ; Start 03/29/19 at 14:30 Glucose (Glutose) 15 gm Q15M PRN PO DECREASED GLUCOSE; Start 03/29/19 at 14:30 Glucose (Glutose) 22.5 gm Q15M PRN PO DECREASED GLUCOSE; Start 03/29/19 at 14:30 Dextrose (D50w Syringe) 25 ml Q15M PRN IV DECREASED GLUCOSE Last administered on 04/13/19 05:56; Admin Dose 25 ML; Start 03/29/19 at 14:30; Status Hold Dextrose (D50w Syringe) 50 ml Q15M PRN IV DECREASED GLUCOSE; Start 03/29/19 at 14:30 Glucagon (Glucagen) 1 mg Q15M PRN IM DECREASED GLUCOSE; Start 03/29/19 at 14:30 Glucose (Glutose) 15 gm Q15M PRN BUCCAL DECREASED GLUCOSE; Start 03/29/19 at 14:30 Albumin Human 100 ml @ 100 mls/hr WITH DIALYSIS PRN IV SBP <90 DURING DIALYSIS Last administered on 04/22/19at 10:02; Admin Dose 100 MLS/HR; Start 03/29/19 at 17:00 Albuterol/ Ipratropium (Duoneb) 3 ml Q2H RESP THERAPY PRN HHN WHEEZING AND RESP DISTRESS Last administered on 04/09/19at 08:52; Admin Dose 3 ML; Start 03/29/19 at 18:00 Lorazepam (Ativan) 0.5 mg Q4H PRN IV AGITATION Last administered on 04/16/19at 15:45; Admin Dose 0.5 MG; Start 03/29/19 at 18:00 IV Flush (NS 10 ml) 10 ml Q8 PRN IV IV PROTOCOL; Start 03/29/19 at 18:00 Labetalol HCl (Labetalol) 10 mg Q4H PRN IV sbp >160 Last administered on 9at 21:32; Admin Dose 10 MG; Start 03/30/19 at 09:00 Haloperidol (Haldol) 5 mg Q6H PRN IM agitation Last administered on 03/31/19at 00:10; Admin Dose 5 MG; Start 03/30/19 at 10:00 Heparin Sodium (Porcine) (Heparin (1000 Units/ml)) 3,200 unit AFTER DIALYSIS CATHETER Last administered on 04/22/19at 13:12; Admin Dose 3,200 UNIT; Start 03/30/19 at 17:00 Atorvastatin Calcium (Lipitor) 40 mg HS NGT Last administered on 04/23/19 21:33; Admin Dose 40 MG; Start 03/31/19 at 21:00 Baclofen (Lioresal) 10 mg BID GTB Last administered on 04/23/19 21:33; Admin Dose 10 MG; Start 03/31/19 at 21:00 Doxazosin Mesylate (Cardura) 2 mg DAILY NGT Last administered on 04/22/19 14:17; Admin Dose 2 MG; Start 03/31/19 at 14:30 Gabapentin (Neurontin) 100 mg QHS PO Last administered on 04/23/19 21:33; Admin Dose 100 MG; Start 03/31/19 at 21:00 Acetaminophen (Tylenol Liquid) 650 mg Q4H PRN PEG MILD PAIN(1-3)OR ELEVATED TEMP Last administered on 04/16/19 08:42; Admin Dose 650 MG; Start 03/31/19 at 16:00 Lactobacillus Acidophilus/ Rhamnosus (Culturelle) 1 cap TID GTB Last administered on 04/23/19 21:33; Admin Dose 1 CAP; Start 04/02/19 at 13:00 Epoetin [place]-epbx (Retacrit (Esrd)) 10,000 unit MoWeFr@1700 SC Last administered on 04/22/19 17:10; Admin Dose 10,000 UNIT; Start 04/03/19 at 19:30 Lansoprazole (Prevacid) 30 mg BID@0600,1800 GTB Last administered on 04/24/19 05:49; Admin Dose 30 MG; Start 04/04/19 at 18:00 Multivit/Ca Carb/ B Cmplx/FA/Prenat ([place]-Geovanni) 1 tab DAILY GTB Last administ ered on 04/23/19 09:18; Admin Dose 1 TAB; Start 04/04/19 at 11:30 Aspirin (Aspirin) 81 mg DAILY PO Last administered on 04/23/19 09:17; Admin Dose 81 MG; Start 04/05/19 at 09:00 Fentanyl 100 ml @ 2.5 mls/hr TITRATE IV Last administered on 04/21/19 02:38; Admin Dose 4 MLS/HR; Start 04/08/19 at 00:00 Midazolam HCl 50 ml @ 1 mls/hr TITRATE PRN IV agitation Last administered on 04/24/19 02:31; Admin Dose 5 MLS/HR; Start 04/08/19 at 00:00 Norepinephrine 250 ml @ 1.875 mls/ hr TITRATE IV Last administered on 04/23/19 13:46; Admin Dose 1.875 MLS/HR; Start 04/08/19 at 00:00 Mupirocin (Bactroban) 1 applic BID TOP Last administered on 04/23/19 21:53; Admin Dose 1 APPLIC; Start 04/09/19 at 21:00 Budesonide (Pulmicort (Neb)) 0.5 mg BID RESP THERAPY HHN Last administered on 04/23/19 19:28; Admin Dose 0.5 MG; Start 04/12/19 at 09:00 Insulin Aspart (Novolog Insulin Pen) NOVOLOG *MILD* ALGORI... Q4 SC Last administered on 04/24/19 05:49; Admin Dose 5 UNIT; Start 04/13/19 at 09:00 Clopidogrel Bisulfate (plaVIX) 75 mg DAILY GTB Last administered on 04/23/19 09:18; Admin Dose 75 MG; Start 04/16/19 at 09:00 Quetiapine Fumarate (Seroquel) 50 mg QHS GTB Last administered on 04/23/19 21:40; Admin Dose 50 MG; Start 04/16/19 at 21:00 Losartan Potassium (Cozaar) 25 mg DAILY PO Last administered on 04/23/19 09:19; Admin Dose 25 MG; Start 04/17/19 at 09:00 Alteplase, Recombinant (Cathflo (Activase)) 2 mg MAY REPEAT X1 PRN CATHETER IF CATHETER REMAINS OCCULUDED Last administered on 04/17/19 11:21; Admin Dose 2 MG; Start 04/17/19 at 09:30 Insulin Glargine (Lantus) 10 units DAILY@0800 SC Last administered on 04/23/19 10:11; Admin Dose 10 UNITS; Start 04/17/19 at 11:00 Metoclopramide HCl (Reglan) 10 mg Q6 IV Last administered on 04/24/19 05:44; Admin Dose 10 MG; Start 04/17/19 at 18:00 Albuterol (Ventolin Hfa) 4 puff Q6H RESP THERAPY INH Last administered on 04/24/19 01:16; Admin Dose 4 PUFF; Start 04/18/19 at 02:00 Ipratropium [place] (Atrovent Hfa) 4 puff Q6H RESP THERAPY INH Last administered on 04/24/19at 01:16; Admin Dose 4 PUFF; Start 04/18/19 at 02:00 Docusate Sodium (Colace Liquid Cup) 100 mg BID PEG Last administered on 04/23/19at 21:33; Admin Dose 100 MG; Start 04/20/19 at 23:00 Polyethylene Glycol (Miralax) 17 gm DAILY PEG Last administered on 04/23/19at 0 9:17; Admin Dose 17 GM; Start 04/21/19 at 09:00 Nitroglycerin/ Dextrose 250 ml @ 1.5 mls/hr TITRATE IV Last administered on 04/21/19at 00:24; Admin Dose 1.5 MLS/HR; Start 04/21/19 at 00:30 Miscellaneous Information (Pending [facility] Order For Wound Care) This patient mcneal... PRN PRN XX WOUND CARE; Start 04/21/19 at 18:00 Carvedilol (Coreg) 3.125 mg QID NGT ; Start 04/23/19 at 09:00 Assessment/Plan Hospital Course (Demo Recall) 1. History of extensive coronary artery disease status post ID status post coronary bypass graft status post PCI 2. Status post recent CVA with now acute CVA based on MRI 3. End-stage renal disease on hemodialysis 4. Hypertension: labile . hypotensive now 5. Dyslipidemia 6. Severe encephalopathy 7. Dysphagia status post PEG placement 8. Severe anemia and history of GI bleed 9. Respiratory failure status post intubation on the vent now Recommendations: Cont with aspirin Plavix Respiratory care and ventilatory support will be continued. Hemodialysis as per renal. Low dose Coreg only if he can tolerate it transfuse prn vent support for now awaiting trach Thank you for this referral. We will continue to follow along with you SEAN CROUCH MD [facility] SEAN CROUCH MD Apr 24, 2019 07:45
[2019-04-24] MEDS: BUDESONIDE (NEB) 0.5MG/2ML AMP HHN SCH ×2 (07:53→19:49)
[2019-04-24] MEDS: MULTIVIT/CA CARB/B CMPLX/FA TAB GTB SCH (08:38)
[2019-04-24] MEDS: BACLOFEN 10 MG TAB GTB SCH ×2 (08:38→20:27)
[2019-04-24] MEDS: CLOPIDOGREL 75 MG TAB GTB SCH (08:38)
[2019-04-24] MEDS: LACTOBACILLUS RHAMNOSUS CAP GTB SCH ×3 (08:38→22:17)
[2019-04-24] MEDS: ASPIRIN 81 MG TAB PO SCH (08:38)
[2019-04-24] MEDS: POLYETHYLENE GLYCOL 17 GM PACKET PEG SCH (08:38)
[2019-04-24] MEDS: DOCUSATE SODIUM 10 MG/ML (10ML CUP) PEG SCH ×2 (08:38→20:26)
[2019-04-24] MEDS: DOXAZOSIN 2 MG TAB NGT SCH (08:47)
[2019-04-24] MEDS: INSULIN GLARGINE [LANTus] (100 UNITS/ML) SYG SC SCH (08:47)
[2019-04-24] MEDS: BALSAM PERU/CASTOR OIL 60 GM TUBE TOP SCH (08:48)
[2019-04-24] MEDS: LOSARTAN 25 MG TAB PO SCH (08:48)
[2019-04-24] MEDS: MUPIROCIN 2% 22 GM OINT TOP SCH ×2 (08:49→20:36)
[2019-04-24] MEDS: ALBUMIN HUMAN 25% 100 ML IV PRN (10:37)
--- NOTE | 2019-04-24 12:11 | CONS ---
Consult Date/Type/Reason Admit Date/Time Mar 29, 2019 at 13:16 Initial Consult Date 04/07/19 Type of Consult Pulmonary Requesting Provider: LILLIAN ZHANG MD Date/Time of Note DATE: 04/24/19 TIME: 12:11 Subjective Patient remains on mechanical ventilation no significant changes. No respiratory distress at present. Possible cuff leak. Objective Vital Signs Date Temp Pulse Resp B/P (MAP) Pulse Ox O2 O2 Flow FiO2 Time Delivery Rate 04/24/19 80 12:00 04/24/19 16 97 40 11:40 04/24/19 103/53 Mechanical 10:50 (70) Ventilator T Tube 04/24/19 98.1 08:00 Intake and Output 04/23/19 04/23/19 04/24/19 1515:00 23:00 07:00 IntakeIntake Total 396.250 ml 448.000 ml 389.00 ml OutputOutput Total 0 ml 0 ml BalanceBalance 396.250 ml 448.000 ml 389.00 ml Exam GENERAL: Elderly appearing gentleman orally intubated on mechanical ventilation VITAL SIGNS: per chart NECK: Supple. No JVD or lymphadenopathy. CARDIAC EXAM: S1, S2. No added sounds or murmurs. CHEST: Diminished air entry bilaterally ABDOMEN: Soft, nontender. No guarding or rebound. EXTREMITIES: No cyanosis, clubbing or edema. NEUROLOGIC: Generalized weakness. Unable to assess Vent Setting Ventilator Support Mode: AC Fraction of Inspired Oxygen pe: 40 Positive End Expiratory Pressu: 5.0 Results/Medications Result Diagram: 04/24/19 0400 04/24/19 0400 Results 24 hrs Laboratory Tests Test 04/23/19 12:32 04/23/19 18:22 04/23/19 21:41 04/24/19 01:18 Bedside Glucose 235 H 316 H 289 H 283 H Test 04/24/19 04:00 04/24/19 05:24 04/24/19 08:42 White Blood Count 13.5 H Red Blood Count 3.49 L Hemoglobin 10.2 L Hematocrit 33.5 L Mean Corpuscular 96.0 Volume Mean Corpuscular 29.2 Hemoglobin Mean Corpuscular 30.4 L Hemoglobin Concent Red Cell 19.0 H Distribution Width Platelet Count 466 H Mean Platelet Volume 10.8 H Immature 0.900 H Granulocytes % Neutrophils % 80.2 H Lymphocytes % 8.2 L Monocytes % 8.0 Eosinophils % 2.0 Basophils % 0.7 Nucleated Red Blood 0.0 Cells % Immature 0.120 H Granulocytes # Neutrophils # 10.8 H Lymphocytes # 1.1 Monocytes # 1.1 H Eosinophils # 0.3 Basophils # 0.1 Nucleated Red Blood 0.0 Cells # Sodium Level 140 Potassium Level 3.6 Chloride Level 100 Carbon Dioxide Level 27 Anion Gap 13 Blood Urea Nitrogen 28 #H Creatinine 5.43 H Glucose Level 351 #H Calcium Level 10.5 H Phosphorus Level 3.2 Magnesium Level 2.3 Albumin 4.0 Bedside Glucose 316 H 344 H Medications Current Medications IV Flush (NS 3 ml) 3 ml PER PROTOCOL IV ; Start 03/29/19 at 13:30 Ondansetron HCl (Zofran Inj) 4 mg Q6H PRN IV NAUSEA/VOMITING Last administered on 04/07/19at 18:53; Admin Dose 4 MG; Start 03/29/19 at 13:30 Acetaminophen (Tylenol Tab) 650 mg Q6H PRN PO .PAIN 1-3 OR TEMP Last administered on 03/31/19at 05:48; Admin Dose 650 MG; Start 03/29/19 at 13:30 Hydralazine HCl (Apresoline) 10 mg Q4H PRN IV sbp >185 Last administered on 04/18/19at 14:27; Admin Dose 10 MG; Start 03/29/19 at 14:00 Miscellaneous Information 1 ea NOTE XX ; Start 03/29/19 at 14:30 Glucose (Glutose) 15 gm Q15M PRN PO DECREASED GLUCOSE; Start 03/29/19 at 14:30 Glucose (Glutose) 22.5 gm Q15M PRN PO DECREASED GLUCOSE; Start 03/29/19 at 14:30 Dextrose (D50w Syringe) 25 ml Q15M PRN IV DECREASED GLUCOSE Last administered on 04/13/19at 05:56; Admin Dose 25 ML; Start 03/29/19 at 14:30; Status Hold Dextrose (D50w Syringe) 50 ml Q15M PRN IV DECREASED GLUCOSE; Start 03/29/19 at 14:30 Glucagon (Glucagen) 1 mg Q15M PRN IM DECREASED GLUCOSE; Start 03/29/19 at 14:30 Glucose (Glutose) 15 gm Q15M PRN BUCCAL DECREASED GLUCOSE; Start 03/29/19 at 14:30 Albumin Human 100 ml @ 100 mls/hr WITH DIALYSIS PRN IV SBP <90 DURING DIALYSIS Last administered on 04/24/19 10:37; Admin Dose 100 MLS/HR; Start 03/29/19 at 17:00 Albuterol/ Ipratropium (Duoneb) 3 ml Q2H RESP THERAPY PRN HHN WHEEZING AND RESP DISTRESS Last administered on 04/09/19 08:52; Admin Dose 3 ML; Start 03/29/19 at 18:00 Lorazepam (Ativan) 0.5 mg Q4H PRN IV AGITATION Last administered on 04/16/19 15:45; Admin Dose 0.5 MG; Start 03/29/19 at 18:00 IV Flush (NS 10 ml) 10 ml Q8 PRN IV IV PROTOCOL; Start 03/29/19 at 18:00 Labetalol HCl (Labetalol) 10 mg Q4H PRN IV sbp >160 Last administered on 04/20/19 21:32; Admin Dose 10 MG; Start 03/30/19 at 09:00 Haloperidol (Haldol) 5 mg Q6H PRN IM agitation Last administered on 03/31/19 00:10; Admin Dose 5 MG; Start 03/30/19 at 10:00 Heparin Sodium (Porcine) (Heparin (1000 Units/ml)) 3,200 unit AFTER DIALYSIS CATHETER Last administered on 04/22/19 13:12; Admin Dose 3,200 UNIT; Start 03/30/19 at 17:00 Atorvastatin Calcium (Lipitor) 40 mg HS NGT Last administered on 04/23/19 21:33; Admin Dose 40 MG; Start 03/31/19 at 21:00 Baclofen (Lioresal) 10 mg BID GTB Last administered on 04/24/19 08:38; Admin Dose 10 MG; Start 03/31/19 at 21:00 Doxazosin Mesylate (Cardura) 2 mg DAILY NGT Last administered on 04/22/19 14:17; Admin Dose 2 MG; Start 03/31/19 at 14:30 Gabapentin (Neurontin) 100 mg QHS PO Last administered on 04/23/19 21:33; Admin Dose 100 MG; Start 03/31/19 at 21:00 Acetaminophen (Tylenol Liquid) 650 mg Q4H PRN PEG MILD PAIN(1-3)OR ELEVATED TEMP Last administered on 04/16/19 08:42; Admin Dose 650 MG; Start 03/31/19 at 16:00 Lactobacillus Acidophilus/ Rhamnosus (Culturelle) 1 cap TID GTB Last administered on 04/24/19 08:38; Admin Dose 1 CAP; Start 04/02/19 at 13:00 Epoetin [place]-epbx (Retacrit (Esrd)) 10,000 unit MoWeFr@1700 SC Last administered on 04/22/19 17:10; Admin Dose 10,000 UNIT; Start 04/03/19 at 19:30 Lansoprazole (Prevacid) 30 mg BID@0600,1800 GTB Last administered on 04/24/19 05:49; Admin Dose 30 MG; Start 04/04/19 at 18:00 Multivit/Ca Carb/ B Cmplx/FA/Prenat ([place]arena-Geovanni) 1 tab DAILY GTB Last administered on 04/24/19 08:38; Admin Dose 1 TAB; Start 04/04/19 at 11:30 Aspirin (Aspirin) 81 mg DAILY PO Last administered on 04/24/19 08:38; Admin Dose 81 MG; Start 04/05/19 at 09:00 Fentanyl 100 ml @ 2.5 mls/hr TITRATE IV Last administered on 04/21/19 02:38; Admin Dose 4 MLS/HR; Start 04/08/19 at 00:00 Midazolam HCl 50 ml @ 1 mls/hr TITRATE PRN IV agitation Last administered on 02:31; Admin Dose 5 MLS/HR; Start 04/08/19 at 00:00 Norepinephrine 250 ml @ 1.875 mls/ hr TITRATE IV Last administered on 04/23/19 13:46; Admin Dose 1.875 MLS/HR; Start 04/08/19 at 00:00 Mupirocin (Bactroban) 1 applic BID TOP Last administered on 04/24/19 08:49; Admin Dose 1 APPLIC; Start 04/09/19 at 21:00 Budesonide (Pulmicort (Neb)) 0.5 mg BID RESP THERAPY HHN Last administered on 04/24/19 07:53; Admin Dose 0.5 MG; Start 04/12/19 at 09:00 Insulin Aspart (Novolog Insulin Pen) NOVOLOG *MILD* ALGORI... Q4 SC Last administered on 04/24/19 08:46; Admin Dose 5 UNIT; Start 04/13/19 at 09:00 Clopidogrel Bisulfate (plaVIX) 75 mg DAILY GTB Last administered on 04/24/19 08:38; Admin Dose 75 MG; Start 04/16/19 at 09:00 Quetiapine Fumarate (Seroquel) 50 mg QHS GTB Last administered on 04/23/19 21:40; Admin Dose 50 MG; Start 04/16/19 at 21:00 Losartan Potassium (Cozaar) 25 mg DAILY PO Last administered on 04/23/19 09:19; Admin Dose 25 MG; Start 04/17/19 at 09:00 Alteplase, Recombinant (Cathflo (Activase)) 2 mg MAY REPEAT X1 PRN CATHETER IF CATHETER REMAINS OCCULUDED Last administered on 04/17/19 11:21; Admin Dose 2 MG; Start 04/17/19 at 09:30 Insulin Glargine (Lantus) 10 units DAILY@0800 SC Last administered on 04/24/19 08:47; Admin Dose 10 UNITS; Start 04/17/19 at 11:00 Albuterol (Ventolin Hfa) 4 puff Q6H RESP THERAPY INH Last administered on 04/24/19 07:52; Admin Dose 4 PUFF; Start 04/18/19 at 02:00 Ipratropium [place] (Atrovent Hfa) 4 puff Q6H RESP THERAPY INH Last administered on 04/24/19 07:52; Admin Dose 4 PUFF; Start 04/18/19 at 02:00 Docusate Sodium (Colace Liquid Cup) 100 mg BID PEG Last administered on 04/24/19 08:38; Admin Dose 100 MG; Start 04/20/19 at 23:00 Polyethylene Glycol (Miralax) 17 gm DAILY PEG Last administered on 04/24/19 08:38; Admin Dose 17 GM; Start 04/21/19 at 09:00 Nitroglycerin/ Dextrose 250 ml @ 1.5 mls/hr TITRATE IV Last administered on 04/21/19at 00:24; Admin Dose 1.5 MLS/HR; Start 04/21/19 at 00:30 Miscellaneous Information (Pending [facility] Order For Wound Care) This patient mcneal... PRN PRN XX WOUND CARE; Start 04/21/19 at 18:00 Carvedilol (Coreg) 3.125 mg QID NGT ; Start 04/23/19 at 09:00 Metoclopramide HCl (Reglan) 5 mg Q6 IV ; Start 04/24/19 at 12:00 Assessment/Plan Hospital Course (Demo Recall) IMP: 1. Respiratory Failure/Ventilator Dependence 2. Status post septic Shock 3. Chronic renal insufficiency on hemodialysis 4. Anemia likely of chronic disease 5. Encephalopathy toxic metabolic RECS: 1. Ventilator support--patient is unable to be liberated from mechanical ventilation secondary to his encephalopathy. May require endotracheal tube to be exchanged because of cuff leak 3. HD/UD. 4. Anti-seizure medications. 5. Continue tube feeding as tolerated Family requested tracheostomy. Will be scheduled Critical care time 40 minutes. Overall prognosis very poor. SAMMI MOSES MD, [facility] Apr 24, 2019 12:11
--- NOTE | 2019-04-24 13:15 | CONS ---
Assessment/Plan Assessment/Plan Assessment/Plan (Daily) 1. Acute hypoxemic respiratory failure intubated on ventilator - persistently failed weaning 2. Accelerated HTN 3. ESRD on HD - MWF schedule at [facility] HD center 4. H/o CAD s/p CABG before 5. H/o CAD with previous recent stent placement in 09/2018 6. h/o HTN 7. H/o DM II 8. h/o HL 9. 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 H/o BPH Plan: s/p Family meeting today, Family wants tracheostomy- Scheduled on Monday on 04/26/19 BP stable, s/p HD today 2.5 L removed- will continue pt on MWF schedule while being in hospital pt is on Coreg 12.5 mg pO BID, losartan 25 mg po daily and HYdralazine 50mg PO TID , cardura 2 mg po daily Epogen 51332 units SQ MWF will follow up Consultation Date/Type/Reason Admit Date/Time Mar 29, 2019 at 13:16 Initial Consult Date 03/29/19 Type of Consult NEPHROLOGY Requesting Provider: LILLIAN ZHANG MD Date/Time of Note DATE: 04/24/19 TIME: 13:15 Exam/Review of Systems Exam Vitals Vital Signs Date Temp Pulse Resp B/P (MAP) Pulse Ox O2 O2 Flow FiO2 Time Delivery Rate 04/24/19 80 12:00 04/24/19 16 97 40 11:40 04/24/19 103/53 Mechanical 10:50 (70) Ventilator T Tube 04/24/19 98.1 08:00 Intake and Output 04/23/19 04/23/19 04/24/19 1515:00 23:00 07:00 IntakeIntake Total 396.250 ml 448.000 ml 389.00 ml OutputOutput Total 0 ml 0 ml BalanceBalance 396.250 ml 448.000 ml 389.00 ml Exam Constitutional: intubated on ventilator , ET tube in place Respiratory: crackles/rales, diminished breath sounds Cardiovascular: regular rate and rhythm, nl pulses Gastrointestinal: soft, non-tender Musculoskeletal: swelling (1-2+pitting edema ) Extremities: normal pulses Neurological: Non focal Results Result Diagram: 04/24/19 0400 04/24/19 0400 Results 24hrs Laboratory Tests Test 04/23/19 18:22 04/23/19 21:41 04/24/19 01:18 04/24/19 04:00 Bedside Glucose 316 H 289 H 283 H White Blood Count 13.5 H Red Blood Count 3.49 L Hemoglobin 10.2 L Hematocrit 33.5 L Mean Corpuscular 96.0 Volume Mean Corpuscular 29.2 Hemoglobin Mean Corpuscular 30.4 L Hemoglobin Concent Red Cell 19.0 H Distribution Width Platelet Count 466 H Mean Platelet Volume 10.8 H Immature 0.900 H Granulocytes % Neutrophils % 80.2 H Lymphocytes % 8.2 L Monocytes % 8.0 Eosinophils % 2.0 Basophils % 0.7 Nucleated Red Blood 0.0 Cells % Immature 0.120 H Granulocytes # Neutrophils # 10.8 H Lymphocytes # 1.1 Monocytes # 1.1 H Eosinophils # 0.3 Basophils # 0.1 Nucleated Red Blood 0.0 Cells # Sodium Level 140 Potassium Level 3.6 Chloride Level 100 Carbon Dioxide Level 27 Anion Gap 13 Blood Urea Nitrogen 28 #H Creatinine 5.43 H Glucose Level 351 #H Calcium Level 10.5 H Phosphorus Level 3.2 Magnesium Level 2.3 Albumin 4.0 Test 04/24/19 05:24 04/24/19 08:42 Bedside Glucose 316 H 344 H Medications Medication Current Medications IV Flush (NS 3 ml) 3 ml PER PROTOCOL IV ; Start 03/29/19 at 13:30 Ondansetron HCl (Zofran Inj) 4 mg Q6H PRN IV NAUSEA/VOMITING Last administered on 04/07/19at 18:53; Admin Dose 4 MG; Start 03/29/19 at 13:30 Acetaminophen (Tylenol Tab) 650 mg Q6H PRN PO .PAIN 1-3 OR TEMP Last administered on 03/31/19at 05:48; Admin Dose 650 MG; Start 03/29/19 at 13:30 Hydralazine HCl (Apresoline) 10 mg Q4H PRN IV sbp >185 Last administered on 04/18/19at 14:27; Admin Dose 10 MG; Start 03/29/19 at 14:00 Miscellaneous Information 1 ea NOTE XX ; Start 03/29/19 at 14:30 Glucose (Glutose) 15 gm Q15M PRN PO DECREASED GLUCOSE; Start 03/29/19 at 14:30 Glucose (Glutose) 22.5 gm Q15M PRN PO DECREASED GLUCOSE; Start 03/29/19 at 14:30 Dextrose (D50w Syringe) 25 ml Q15M PRN IV DECREASED GLUCOSE Last administered on 04/13/19 05:56; Admin Dose 25 ML; Start 03/29/19 at 14:30; Status Hold Dextrose (D50w Syringe) 50 ml Q15M PRN IV DECREASED GLUCOSE; Start 03/29/19 at 14:30 Glucagon (Glucagen) 1 mg Q15M PRN IM DECREASED GLUCOSE; Start 03/29/19 at 14:30 Glucose (Glutose) 15 gm Q15M PRN BUCCAL DECREASED GLUCOSE; Start 03/29/19 at 14:30 Albumin Human 100 ml @ 100 mls/hr WITH DIALYSIS PRN IV SBP <90 DURING DIALYSIS Last administered on 04/24/19at 10:37; Admin Dose 100 MLS/HR; Start 03/29/19 at 17:00 Albuterol/ Ipratropium (Duoneb) 3 ml Q2H RESP THERAPY PRN HHN WHEEZING AND RESP DISTRESS Last administered on 04/09/19at 08:52; Admin Dose 3 ML; Start 03/29/19 at 18:00 Lorazepam (Ativan) 0.5 mg Q4H PRN IV AGITATION Last administered on 04/16/19 15:45; Admin Dose 0.5 MG; Start 03/29/19 at 18:00 IV Flush (NS 10 ml) 10 ml Q8 PRN IV IV PROTOCOL; Start 03/29/19 at 18:00 Labetalol HCl (Labetalol) 10 mg Q4H PRN IV sbp >160 Last administered on 04/20/19at 21:32; Admin Dose 10 MG; Start 03/30/19 at 09:00 Haloperidol (Haldol) 5 mg Q6H PRN IM agitation Last administered on 03/31/19at 00:10; Admin Dose 5 MG; Start 03/30/19 at 10:00 Heparin Sodium (Porcine) (Heparin (1000 Units/ml)) 3,200 unit AFTER DIALYSIS CATHETER Last administered on 04/22/19at 13:12; Admin Dose 3,200 UNIT; Start 03/30/19 at 17:00 Atorvastatin Calcium (Lipitor) 40 mg HS NGT Last administered on 04/23/19at 21:33; Admin Dose 40 MG; Start 03/31/19 at 21:00 Baclofen (Lioresal) 10 mg BID GTB Last administered on 04/24/19 08:38; Admin Dose 10 MG; Start 03/31/19 at 21:00 Doxazosin Mesylate (Cardura) 2 mg DAILY NGT Last administered on 04/22/19 14:17; Admin Dose 2 MG; Start 03/31/19 at 14:30 Gabapentin (Neurontin) 100 mg QHS PO Last administered on 04/23/19 21:33; Admin Dose 100 MG; Start 03/31/19 at 21:00 Acetaminophen (Tylenol Liquid) 650 mg Q4H PRN PEG MILD PAIN(1-3)OR ELEVATED TEMP Last administered on 04/16/19 08:42; Admin Dose 650 MG; Start 03/31/19 at 16:00 Lactobacillus Acidophilus/ Rhamnosus (Culturelle) 1 cap TID GTB Last administered on 04/24/19 08:38; Admin Dose 1 CAP; Start 04/02/19 at 13:00 Epoetin [place]-epbx (Retacrit (Esrd)) 10,000 unit MoWeFr@1700 SC Last a dministered on 04/22/19 17:10; Admin Dose 10,000 UNIT; Start 04/03/19 at 19:30 Lansoprazole (Prevacid) 30 mg BID@0600,1800 GTB Last administered on 04/24/19 05:49; Admin Dose 30 MG; Start 04/04/19 at 18:00 Multivit/Ca Carb/ B Cmplx/FA/Prenat (Karena-Geovanni) 1 tab DAILY GTB Last administered on 04/24/19 08:38; Admin Dose 1 TAB; Start 04/04/19 at 11:30 Aspirin (Aspirin) 81 mg DAILY PO Last administered on 04/24/19 08:38; Admin Dose 81 MG; Start 04/05/19 at 09:00 Fentanyl 100 ml @ 2.5 mls/hr TITRATE IV Last administered on 04/21/19 02:38; Admin Dose 4 MLS/HR; Start 04/08/19 at 00:00 Midazolam HCl 50 ml @ 1 mls/hr TITRATE PRN IV agitation Last administered on 04/24/19 02:31; Admin Dose 5 MLS/HR; Start 04/08/19 at 00:00 Norepinephrine 250 ml @ 1.875 mls/ hr TITRATE IV Last administered on 04/23/19 13:46; Admin Dose 1.875 MLS/HR; Start 04/08/19 at 00:00 Mupirocin (Bactroban) 1 applic BID TOP Last administered on 04/24/19 08:49; Admin Dose 1 APPLIC; Start 04/09/19 at 21:00 Budesonide (Pulmicort (Neb)) 0.5 mg BID RESP THERAPY HHN Last administered on 04/24/19 07:53; Admin Dose 0.5 MG; Start 04/12/19 at 09:00 Insulin Aspart (Novolog Insulin Pen) NOVOLOG *MILD* ALGORI... Q4 SC Last administered on 04/24/19 08:46; Admin Dose 5 UNIT; Start 04/13/19 at 09:00 Clopidogrel Bisulfate (plaVIX) 75 mg DAILY GTB Last administered on 04/24/19 08:38; Admin Dose 75 MG; Start 04/16/19 at 09:00 Quetiapine Fumarate (Seroquel) 50 mg QHS GTB Last administered on 04/23/19 21:40; Admin Dose 50 MG; Start 04/16/19 at 21:00 Losartan Potassium (Cozaar) 25 mg DAILY PO Last administered on 04/23/19 09:19; Admin Dose 25 MG; Start 04/17/19 at 09:00 Alteplase, Recombinant (Cathflo (Activase)) 2 mg MAY REPEAT X1 PRN CATHETER IF CATHETER REMAINS OCCULUDED Last administered on 04/17/19at 11:21; Admin Dose 2 MG; Start 04/17/19 at 09:30 Insulin Glargine (Lantus) 10 units DAILY@0800 SC Last administered on 04/24/19 08:47; Admin Dose 10 UNITS; Start 04/17/19 at 11:00 Albuterol (Ventolin Hfa) 4 puff Q6H RESP THERAPY INH Last administered on 04/24/19 07:52; Admin Dose 4 PUFF; Start 04/18/19 at 02:00 Ipratropium [place] (Atrovent Hfa) 4 puff Q6H RESP THERAPY INH Last administered on 7/17/19at 07:52; Admin Dose 4 PUFF; Start 04/18/19 at 02:00 Docusate Sodium (Colace Liquid Cup) 100 mg BID PEG Last administered on 04/24/19at 08:38; Admin Dose 100 MG; Start 04/20/19 at 23:00 Polyethylene Glycol (Miralax) 17 gm DAILY PEG Last administered on 04/24/19at 08:38; Admin Dose 17 GM; Start 04/21/19 at 09:00 Nitroglycerin/ Dextrose 250 ml @ 1.5 mls/hr TITRATE IV Last administered on 04/21/19at 00:24; Admin Dose 1.5 MLS/HR; Start 04/21/19 at 00:30 Miscellaneous Information (Pending [facility] Order For Wound Care) This patient mcneal... PRN PRN XX WOUND CARE; Start 04/21/19 at 18:00 Carvedilol (Coreg) 3.125 mg QID NGT ; Start 04/23/19 at 09:00 Metoclopramide HCl (Reglan) 5 mg Q6 IV ; Start 04/24/19 at 12:00 BETZAIDA YAÑEZ MD Apr 24, 2019 13:15
[2019-04-24] MEDS: HEPARIN 1000 UNITS/ML 10 ML INJ CATHETER SCH (13:20)
--- NOTE | 2019-04-24 15:01 | PN ---
Date/Time of Note Date/Time of Note DATE: 04/24/19 TIME: 15:00 Assessment/Plan VTE Prophylaxis Risk score (from Ns)>0 risk: 7 SCD applied (from Ns): Yes Pharmacological prophylaxis: heparin Assessment/Plan Hospital Course 1. Acute hypoxic respiratory failure - patient remains intubated and too weak to clear his secretions making him a po or candidate for extubation -Family has agreed to tracheostomy placement - Pulmonology consultation appreciated and will continue vent at this time. - patient was extubated 04/17 and needed to be reintubated a few hours later due to desaturation and inability to clear his secretions 2. Acute left thalamic stroke- stable - Neuro on board and appreciate consultation - Carotid US noted with stenosis <70%. Will continue plavix at this time given patient not stable for any type of intervention but will need to be assessed for CEA in the future 3. HCAP/Aspiration Pneumonia- resolving - CXR with no signs of PNA - Pulm on board and appreciate recommendations - ID on board for antibiotic management 4. Acute on chronic encephalopathy - Neurology consultation appreciated. 5. Anemia - stable - GI consultation appreciated and EGD revealed moderate distal esophagitis and gastritis and duodenitis. Colonoscopy showed internal hemorrhoids. Will need repeat colonoscopy in the future 6. End-stage renal disease on hemodialysis - Nephrology on board and appreciate consultation. Continue HD 7. Coronary artery disease status post CABG history - continue home medications - continue on Plavix and aspirin 8. Epilepsy - Continue Keppra - EEG noted with slowing 9. History of CVA with residual left-sided deficit and more recent CVA - New left thalamic stroke appreciated on repeat MRI. - Neurology consultation appreciated -MRI shows old chronic lacunar infarcts bilaterally in the basal ganglia and thalamus as well as right frontal murguia radiata small vessel infarct 10. BPH 11. Septic shock, intermittent- resolved - keeps fluctuating from HTN to hypotensive. Pressors PRN to maintain MAP 65 - Most likely secondary to aspiration pneumonia - ID on board and appreciate recommendations. continue on current IV antibiotics Prophylaxis: Heparin Disposition -Family agreeable for tracheostomy placement, CT surgery aware, possible Elliott placement after trach placed Result Diagram: 04/24/19 0400 04/24/19 0400 Results 24hrs Laboratory Tests Test 04/23/19 18:22 04/23/19 21:41 04/24/19 01:18 04/24/19 04:00 Bedside Glucose 316 H 289 H 283 H White Blood Count 13.5 H Red Blood Count 3.49 L Hemoglobin 10.2 L Hematocrit 33.5 L Mean Corpuscular 96.0 Volume Mean Corpuscular 29.2 Hemoglobin Mean Corpuscular 30.4 L Hemoglobin Concent Red Cell 19.0 H Distribution Width Platelet Count 466 H Mean Platelet Volume 10.8 H Immature 0.900 H Granulocytes % Neutrophils % 80.2 H Lymphocytes % 8.2 L Monocytes % 8.0 Eosinophils % 2.0 Basophils % 0.7 Nucleated Red Blood 0.0 Cells % Immature 0.120 H Granulocytes # Neutrophils # 10.8 H Lymphocytes # 1.1 Monocytes # 1.1 H Eosinophils # 0.3 Basophils # 0.1 Nucleated Red Blood 0.0 Cells # Sodium Level 140 Potassium Level 3.6 Chloride Level 100 Carbon Dioxide Level 27 Anion Gap 13 Blood Urea Nitrogen 28 #H Creatinine 5.43 H Glucose Level 351 #H Calcium Level 10.5 H Phosphorus Level 3.2 Magnesium Level 2.3 Albumin 4.0 Test 04/24/19 05:24 04/24/19 08:42 Bedside Glucose 316 H 344 H Subjective 24 Hr Interval Summary Subjective hx not possible: pt non-verbal Exam/Review of Systems Exam Vitals Vital Signs Date Temp Pulse Resp B/P (MAP) Pulse Ox O2 O2 Flow FiO2 Time Delivery Rate 04/24/19 113 20 116/72 96 Mechanical 13:42 (87) Ventilator T Tube 04/24/19 98.2 13:00 04/24/19 40 11:40 Intake and Output 04/23/19 04/23/19 04/24/19 1515:00 23:00 07:00 IntakeIntake Total 396.250 ml 448.000 ml 392.75 ml OutputOutput Total 0 ml 0 ml BalanceBalance 396.250 ml 448.000 ml 392.75 ml Constitutional: non-verbal Respiratory: clear to auscultation Cardiovascular: regular rate and rhythm Gastrointestinal: soft; No distended Musculoskeletal: nl extremities to inspection Results Results 24hrs Laboratory Tests Test 04/23/19 18:22 04/23/19 21:41 04/24/19 01:18 04/24/19 04:00 Bedside Glucose 316 H 289 H 283 H White Blood Count 13.5 H Red Blood Count 3.49 L Hemoglobin 10.2 L Hematocrit 33.5 L Mean Corpuscular 96.0 Volume Mean Corpuscular 29.2 Hemoglobin Mean Corpuscular 30.4 L Hemoglobin Concent Red Cell 19.0 H Distribution Width Platelet Count 466 H Mean Platelet Volume 10.8 H Immature 0.900 H Granulocytes % Neutrophils % 80.2 H Lymphocytes % 8.2 L Monocytes % 8.0 Eosinophils % 2.0 Basophils % 0.7 Nucleated Red Blood 0.0 Cells % Immature 0.120 H Granulocytes # Neutrophils # 10.8 H Lymphocytes # 1.1 Monocytes # 1.1 H Eosinophils # 0.3 Basophils # 0.1 Nucleated Red Blood 0.0 Cells # Sodium Level 140 Potassium Level 3.6 Chloride Level 100 Carbon Dioxide Level 27 Anion Gap 13 Blood Urea Nitrogen 28 #H Creatinine 5.43 H Glucose Level 351 #H Calcium Level 10.5 H Phosphorus Level 3.2 Magnesium Level 2.3 Albumin 4.0 Test 04/24/19 05:24 04/24/19 08:42 Bedside Glucose 316 H 344 H Medications Medication Current Medications IV Flush (NS 3 ml) 3 ml PER PROTOCOL IV ; Start 03/29/19 at 13:30 Ondansetron HCl (Zofran Inj) 4 mg Q6H PRN IV NAUSEA/VOMITING Last administered on 04/07/19at 18:53; Admin Dose 4 MG; Start 03/29/19 at 13:30 Acetaminophen (Tylenol Tab) 650 mg Q6H PRN PO .PAIN 1-3 OR TEMP Last administered on 03/31/19at 05:48; Admin Dose 650 MG; Start 03/29/19 at 13:30 Hydralazine HCl (Apresoline) 10 mg Q4H PRN IV sbp >185 Last administered on 04/18/19at 14:27; Admin Dose 10 MG; Start 03/29/19 at 14:00 Miscellaneous Information 1 ea NOTE XX ; Start 03/29/19 at 14:30 Glucose (Glutose) 15 gm Q15M PRN PO DECREASED GLUCOSE; Start 03/29/19 at 14:30 Glucose (Glutose) 22.5 gm Q15M PRN PO DECREASED GLUCOSE; Start 03/29/19 at 14:30 Dextrose (D50w Syringe) 25 ml Q15M PRN IV DECREASED GLUCOSE Last administered on 04/13/19at 05:56; Admin Dose 25 ML; Start 03/29/19 at 14:30; Status Hold Dextrose (D50w Syringe) 50 ml Q15M PRN IV DECREASED GLUCOSE; Start 03/29/19 at 14:30 Glucagon (Glucagen) 1 mg Q15M PRN IM DECREASED GLUCOSE; Start 03/29/19 at 14:30 Glucose (Glutose) 15 gm Q15M PRN BUCCAL DECREASED GLUCOSE; Start 03/29/19 at 14:30 Albumin Human 100 ml @ 100 mls/hr WITH DIALYSIS PRN IV SBP <90 DURING DIALYSIS Last administered on 04/24/19at 10:37; Admin Dose 100 MLS/HR; Start 03/29/19 at 17:00 Albuterol/ Ipratropium (Duoneb) 3 ml Q2H RESP THERAPY PRN HHN WHEEZING AND RESP DISTRESS Last administered on 04/09/19 08:52; Admin Dose 3 ML; Start 03/29/19 at 18:00 Lorazepam (Ativan) 0.5 mg Q4H PRN IV AGITATION Last administered on 04/16/19at 15:45; Admin Dose 0.5 MG; Start 03/29/19 at 18:00 IV Flush (NS 10 ml) 10 ml Q8 PRN IV IV PROTOCOL; Start 03/29/19 at 18:00 Labetalol HCl (Labetalol) 10 mg Q4H PRN IV sbp >160 Last administered on 04/20/19at 21:32; Admin Dose 10 MG; Start 03/30/19 at 09:00 Haloperidol (Haldol) 5 mg Q6H PRN IM agitation Last administered on 03/31/19 00:10; Admin Dose 5 MG; Start 03/30/19 at 10:00 Heparin Sodium (Porcine) (Heparin (1000 Units/ml)) 3,200 unit AFTER DIALYSIS CATHETER Last administered on 04/24/19 13:20; Admin Dose 3,200 UNIT; Start 03/30/19 at 17:00 Atorvastatin Calcium (Lipitor) 40 mg HS NGT Last administered on 04/23/19 21:33; Admin Dose 40 MG; Start 03/31/19 at 21:00 Baclofen (Lioresal) 10 mg BID GTB Last administered on 04/24/19 08:38; Admin Dose 10 MG; Start 03/31/19 at 21:00 Doxazosin Mesylate (Cardura) 2 mg DAILY NGT Last administered on 04/22/19 14:17; Admin Dose 2 MG; Start 03/31/19 at 14:30 Gabapentin (Neurontin) 100 mg QHS PO Last administered on 04/23/19 21:33; Admin Dose 100 MG; Start 03/31/19 at 21:00 Acetaminophen (Tylenol Liquid) 650 mg Q4H PRN PEG MILD PAIN(1-3)OR ELEVATED TEMP Last administered on 04/16/19 08:42; Admin Dose 650 MG; Start 03/31/19 at 16:00 Lactobacillus Acidophilus/ Rhamnosus (Culturelle) 1 cap TID GTB Last administered on 04/24/19 14:51; Admin Dose 1 CAP; Start 04/02/19 at 13:00 Epoetin [place]-epbx (Retacrit (Esrd)) 10,000 unit MoWeFr@1700 SC Last administered on 04/22/19 17:10; Admin Dose 10,000 UNIT; Start 04/03/19 at 19:30 Lansoprazole (Prevacid) 30 mg BID@0600,1800 GTB Last administered on 04/24/19 05:49; Admin Dose 30 MG; Start 04/04/19 at 18:00 Multivit/Ca Carb/ B Cmplx/FA/Prenat (Karena-Geovanni) 1 tab DAILY GTB Last administered on 04/24/19 08:38; Admin Dose 1 TAB; Start 04/04/19 at 11:30 Aspirin (Aspirin) 81 mg DAILY PO Last administered on 04/24/19 08:38; Admin Dose 81 MG; Start 04/05/19 at 09:00 Fentanyl 100 ml @ 2.5 mls/hr TITRATE IV Last administered on 04/21/19 02:38; Admin Dose 4 MLS/HR; Start 04/08/19 at 00:00 Midazolam HCl 50 ml @ 1 mls/hr TITRATE PRN IV agitation Last administered on 04/24/19 02:31; Admin Dose 5 MLS/HR; Start 04/08/19 at 00:00 Norepinephrine 250 ml @ 1.875 mls/ hr TITRATE IV Last administered on 04/23/19 13:46; Admin Dose 1.875 MLS/HR; Start 04/08/19 at 00:00 Mupirocin (Bactroban) 1 applic BID TOP Last administered on 04/24/19 08:49; Admin Dose 1 APPLIC; Start 04/09/19 at 21:00 Budesonide (Pulmicort (Neb)) 0.5 mg BID RESP THERAPY HHN Last administered on 04/24/19 07:53; Admin Dose 0.5 MG; Start 04/12/19 at 09:00 Insulin Aspart (Novolog Insulin Pen) NOVOLOG *MILD* ALGORI... Q4 SC Last administered on 04/24/19 14:54; Admin Dose 2 UNIT; Start 04/13/19 at 09:00 Clopidogrel Bisulfate (plaVIX) 75 mg DAILY GTB Last administered on 04/24/19 08:38; Admin Dose 75 MG; Start 04/16/19 at 09:00 Quetiapine Fumarate (Seroquel) 50 mg QHS GTB Last administered on 04/23/19 21:40; Admin Dose 50 MG; Start 04/16/19 at 21:00 Losartan Potassium (Cozaar) 25 mg DAILY PO Last administered on 04/23/19 09:19; Admin Dose 25 MG; Start 04/17/19 at 09:00 Alteplase, Recombinant (Cathflo (Activase)) 2 mg MAY REPEAT X1 PRN CATHETER IF CATHETER REMAINS OCCULUDED Last administered on 04/17/19 11:21; Admin Dose 2 MG; Start 04/17/19 at 09:30 Insulin Glargine (Lantus) 10 units DAILY@0800 SC Last administered on 04/24/19 08:47; Admin Dose 10 UNITS; Start 04/17/19 at 11:00 Albuterol (Ventolin Hfa) 4 puff Q6H RESP THERAPY INH Last administered on 04/24/19 07:52; Admin Dose 4 PUFF; Start 04/18/19 at 02:00 Ipratropium [place] (Atrovent Hfa) 4 puff Q6H RESP THERAPY INH Last administered on 04/24/19 07:52; Admin Dose 4 PUFF; Start 04/18/19 at 02:00 Docusate Sodium (Colace Liquid Cup) 100 mg BID PEG Last administered on 04/24/19 08:38; Admin Dose 100 MG; Start 04/20/19 at 23:00 Polyethylene Glycol (Miralax) 17 gm DAILY PEG Last administered on 04/24/19at 08:38; Admin Dose 17 GM; Start 04/21/19 at 09:00 Nitroglycerin/ Dextrose 250 ml @ 1.5 mls/hr TITRATE IV Last administered on 04/21/19at 00:24; Admin Dose 1.5 MLS/HR; Start 04/21/19 at 00:30 Miscellaneous Information (Pending [facility] Order For Wound Care) This patient mcneal... PRN PRN XX WOUND CARE; Start 04/21/19 at 18:00 Carvedilol (Coreg) 3.125 mg QID NGT Last administered on 04/24/19at 14:55; Admin Dose 3.125 MG; Start 04/23/19 at 09:00 Metoclopramide HCl (Reglan) 5 mg Q6 IV Last administered on 04/24/19at 14:51; Admin Dose 5 MG; Start 04/24/19 at 12:00 ZHANG YOUNG Apr 24, 2019 15:01
--- NOTE | 2019-04-24 16:53 | CONS ---
DATE OF ADMISSION: 03/29/2019 DATE OF CONSULTATION: REASON FOR CONSULTATION: Evaluation for tracheostomy. HISTORY OF PRESENT ILLNESS: This is a 58-year-old male with a history of CVA, end-stage renal diseas e currently on dialysis, intubated respiratory failure, unable to come off the ventilator secondary t o above problem. PAST MEDICAL HISTORY: Hypertension, hyperlipidemia, end-stage renal disease. PAST SURGICAL HISTORY: Coronary artery bypass grafting. ALLERGIES: NONE. SOCIAL HISTORY: No smoking, drinking or drug use. MEDICATIONS: List reviewed. PHYSICAL EXAMINATION: GENERAL: The patient is intubated, unresponsive, on dialysis. VITAL SIGNS: Blood pressure is 138/60, pulse is 80, respirations 18. CARDIOVASCULAR: Normal S1, S2. LUNGS: Clear. ABDOMEN: Soft. EXTREMITIES: Warm. IMPRESSION: Respiratory failure with multiple comorbidities including pneumonia. The patient is joe ble to come off the ventilator. RECOMMENDATION: We will proceed with tracheostomy when the consent is available. Discussed with the nursing staff. We discussed with the family. Dictated By: NICOLA TERRY MD FM/NTS Conf#: [id number] DID#: [id number] CC: STEWART WINTER MD;*EndCC*
[2019-04-24] MEDS: EPOETIN ALFA-EPBX (ESRD) 10,000 UNIT/ML VIAL SC SCH (18:07)
--- NOTE | 2019-04-24 19:42 | PN ---
DATE: 04/24/2019 SUBJECTIVE: The patient is in hemodialysis, in no distress, on low dose of Levophed drip. No fevers overnight. He remains mildly tachycardic. OBJECTIVE: WBC 13.5, H and H 10.2 and 33.5, platelets 466, neutrophils 80.2. Chest x-ray from yesterday revealed decreased left-sided pleural effusion. INDWELLINGS: The endotracheal tube, NG tube, right chest Perm-A-Cath, PEG, and PICC line. PHYSICAL EXAMINATION: GENERAL: Chronically ill-appearing, middle-aged man in no distress. HEENT: Head atraumatic, normocephalic. NECK: Supple. CHEST: Rise symmetrical. Breath sounds diminished to bases. HEART: S1, S2. ABDOMEN: Soft, bowel sounds present. EXTREMITIES: With trace edema, dependent. ASSESSMENT: 1. Shock, likely hypovolemic as the patient is currently on hemodialysis. 2. Status post healthcare-associated pneumonia. 3. Respiratory failure requiring intubation with failure to wean multiple times. 4. Seizure disorder. 5. End-stage renal disease, hemodialysis dependent. 6. Methicillin-resistant Staphylococcus aureus nares colonization on admission. 7. Chronic sinusitis and bilateral mastoiditis, status post 2 weeks IV antibiotics. PLAN: We are going to order blood cultures from Perm-A-Cath given leukocytosis. Keep him off antibi otics for now. Follow pulmonary recommendations. He may require endotracheal tube change because of the air leak. Dictated By: UMA COLINDRES WALL COVERING INSTALLER for RAMONE NUNEZ MD NI/NTS Conf#: [id number] DID#: [id number] CC: STEWART WINTER MD;*EndCC*
[2019-04-24] MEDS: QUETIAPINE 25 MG TAB GTB SCH (20:27)
[2019-04-24] MEDS: GABAPENTIN 100 MG CAP PO SCH (20:27)
[2019-04-24] MEDS: ATORVASTATIN 40 MG TAB NGT SCH (20:27)
[2019-04-25] VITALS (97 sets, daily range): BP systolic 53–190; BP diastolic 43–111; PULSE 75–118; RESP 5–41
[2019-04-25] MEDS: ALBUTEROL HFA 8 GM INHALER INH SCH ×4 (01:30→20:45)
[2019-04-25] MEDS: MIDAZOLAM (DRIP) 50 mg/50 mL 50 ML IV PRN ×2 (01:36→13:08)
[2019-04-25] MEDS: INSULIN ASPART [NOVOLOG] 3 ML PEN SC SCH ×7 (01:42→23:50)
[2019-04-25] MEDS: IPRATROPIUM (HFA) 12.9 GM INHALER INH SCH ×4 (02:10→20:45)
[2019-04-25] MEDS: LANSOPRAZOLE 30 MG CAP GTB SCH ×2 (05:01→17:10)
[2019-04-25] MEDS: METOCLOPRAMIDE 10 MG INJ IV SCH ×4 (06:01→23:43)
[2019-04-25] MEDS: NORepinephrine 8MG/250 ML (PMX 250 ML IV SCH (06:02)
--- NOTE | 2019-04-25 08:05 | CONS ---
Consult Date/Type/Reason Admit Date/Time Mar 29, 2019 at 13:16 Initial Consult Date 04/07/19 Type of Consultation: cv Requesting Provider: LILLIAN ZHANG MD Date/Time of Note DATE: 04/25/19 TIME: 08:03 Subjective Interventional cardiology follow-up progress note Subjective: Discussed with the staff and Telemetry was reviewed. pt remains in NSR PT remains intubated on vent BP has been intermittently low and required to be on Levophed drip again last n ight Patient nonverbal. pt has been agitated off sedation currently is sedated again events noted: extubated and had to be re-intubated on 04/17/19 objective: General: s/p intubation on the ventilator HEENT: NC/AT. pupils are equal. round. NECK:. no stridor. CV: RRR. systolic murmur; no gallop or rubs. PULM: + rhonchi. GI: SOFT, NT, ND, no rebound or guarding s/p PEG Extremity: trace B/L LE edema. no clubbing. neuro: sedated Psych: Agitated rectal: deferred : normal ECHO 04/09/19 REVIEWED Normal left ventricular systolic function. Normal left ventricular cavity size. Mild concentric left ventricular hypertrophy. Ejection fraction is visually estimated at 55 %. Tissue Doppler/Mitral Doppler indices are consistent with impaired relaxation (Stage I diastolic dysfunction). Mild mitral leaflet calcification. Mild mitral annular calcification. Mild mitral valve regurgitation. No significant aortic stenosis or insufficiency. Aortic cusps appear mildly calcified. Normal appearance of the tricuspid valve. The estimated Peak RVSP is 25 mmHg. There is trace tricuspid regurgitation. cxr 04/09/19 Persistent small left greater than right pleural effusions with associated atelectasis/infiltrate. CXR . Appropriate position of central lines and endotracheal tube. 2. Bilateral perihilar and basilar airspace opacities representing pulmonary edema or infection. 3. Small left pleural effusion. CXR Decrease in left-sided pleural effusion. Left basilar opacity may represent atelectasis, but edema or infection not excluded. MRI Brain 04/16 1. Acute, ischemic, small vessel left thalamic infarct. 2. Chronic right greater than left bilateral basal ganglia and bilateral thalamic lacunar infarcts 3. Moderate chronic microvascular ischemic disease and diffuse volume loss 4. Chronic right frontal murguia radiata small vessel infarct 5. 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 Objective Vitals Vital Signs Date Temp Pulse Resp B/P (MAP) Pulse Ox O2 O2 Flow FiO2 Time Delivery Rate 04/25/19 87 16 97 40 05:38 04/25/19 105/78 05:15 (87) 04/25/19 Mechanical 05:00 Ventilator 04/25/19 98.3 04:00 Intake and Output 04/24/19 04/24/19 04/25/19 1515:00 23:00 07:00 IntakeIntake Total 45.30 ml 158.5 ml 181.03 ml OutputOutput Total 3210 ml 0 ml 70 ml BalanceBalance -3164.70 ml 158.5 ml 111.03 ml Results/Medications Result Diagram: 04/24/19 0400 04/24/19 0400 Results 24 hrs Laboratory Tests Test 04/24/19 08:42 04/24/19 14:48 04/24/19 17:45 04/24/19 20:19 Bedside Glucose 344 H 181 261 H 270 H Test 04/25/19 01:40 04/25/19 04:54 Bedside Glucose 288 H 287 H Home Meds Reported Medications Bisacodyl (Dulcolax) 10 Mg Supp.rect, 10 MG RC DAILY PRN for CONSTIPATION, SUPP.RECT 03/29/19 Sodium Phosphate,Sebastian-Dibasic (Enema Ready To Use) 133 Ml Enema, 133 ML RC EVERY 2 DAYS PRN for CONSTIPATION, ENEMA 03/29/19 Acetaminophen* (Acetaminophen*) 650 Mg Tablet, 650 MG GTB Q4 PRN for MILD PAIN LEVEL 1-3, #30 TAB AND FEVER 03/29/19 Acetaminophen* (Acetaminophen*) 500 MG Extra Strength Tablet, 1000 MG GTB Q4H PRN for MODERATE PAIN LEVEL 4-6, TAB 03/29/19 Acetaminophen* (Acetaminophen*) 500 MG Extra Strength Tablet, 1000 MG GTB BID PRN for GENERAL BODY PAIN, TAB 03/29/19 Amino Acids/Protein Hydrolys (Pro-Stat Awc Liquid) 30 Ml Liquid, 30 ML GTB DAILY SUGAR FREE 03/29/19 Multivitamin* (Daily Value*) 1 Each Tablet, 1 TAB GTB DAILY, TAB 03/29/19 Ascorbic Acid* (Vitamin C*) 500 Mg Capsule.sa, 500 MG GTB DAILY, CAP 03/29/19 Ferrous Sulfate (Ferrous Sulfate) 300 Mg/5 Ml Liquid, 325 MG GTB DAILY 03/29/19 Cran/Vitc/Mannose/Inulin/Brom (Uti-Stat Liquid) 3,875 Mg/30 Ml Liquid, 3875 MG GTB DAILY 03/29/19 Cranberry Extract (Cranberry) 425 Mg Capsule, 425 MG GTB DAILY, CAP 03/29/19 Insulin Glulisine (Apidra Solostar) 100 Unit/1 Ml Insuln.pen, 4 UNIT SQ TIDM A, #1 TUB 03/29/19 Insulin Glargine,Hum.rec.anlog (Basaglar Kwikpen U-100) 100 Unit/1 Ml Insuln.pen, 25 UNIT SC QHS, EA 03/29/19 Insulin Regular, Human (Humulin R) 100 Unit/1 Ml Vial, 0 IJ AC MEALS AND BEDTIME, VIAL 0-150 = 0 UNIT 151-200 = 1 UNIT 201-250 = 2 UNITS 251-300 = 3 UNITS 301-350 = 4 UNITS 351-400 = 5 UNITS OVER 400 GIVE 6 UNITS UNDER 70 OR OVER 400 NOTIFY 03/29/19 Sertraline Hcl* (Sertraline Hcl*) 25 Mg Tablet, 25 MG GTB DAILY, #30 TAB 03/29/19 Lorazepam* (Ativan*) 0.5 Mg Tablet, 0.5 MG GTB DAILY PRN for ANXIETY, #30 TAB 03/29/19 Quetiapine Fumarate* (Seroquel*) 25 Mg Tablet, 25 MG GTB HS, #30 TAB 03/29/19 Lorazepam* (Lorazepam*) 0.5 Mg Tablet, 0.5 MG GTB DAILY PRN for ANXIETY, TAB 03/29/19 Clonidine Hcl* (Clonidine Hcl*) 0.1 Mg Tab, 0.1 MG GTB DAILY PRN for ELEVATED BLOOD PRESSURE, TAB SBP >160 03/29/19 Azelastine Hcl* (Azelastine Hcl*) 137 Mcg/0.137 Ml [place].pump, 2 SPRAYS NASAL BID, #1 EA TO EACH NOSTRIL 03/29/19 Carvedilol* (Carvedilol*) 12.5 Mg Tablet, 12.5 MG GTB BID, #60 TAB 03/29/19 Diltiazem Hcl* (Cardizem CD*) 240 Mg Cap.sr.24h, 240 MG GTB DAILY, #30 CAP 03/29/19 Ergocalciferol (Vitamin D2) (VITAMIN D2) 50,000 Unit Capsule, 40878 UNIT GTB EVERY MONDAY, CAP 03/29/19 Hydralazine Hcl* (Hydralazine Hcl*) 50 Mg Tab, 50 MG GTB TID PRN for ELEVATED BLOOD PRESSURE, #60 TAB 03/29/19 Losartan Potassium* (Losartan Potassium*) 100 Mg Tablet, 100 MG GTB DAILY, TAB 03/29/19 Metoprolol Succinate* (Toprol XL*) 25 Mg Tab.sr.24h, 25 MG GTB DAILY, #30 TAB 03/29/19 Linagliptin (TRADJENTA) 5 Mg Tablet, 5 MG GTB DAILY, TAB 03/29/19 Albuterol Sulfate* (Proair HFA*) 8.5 Gm Hfa.aer.ad, 2 PUFF INH Q4H PRN for WHEEZING AND SOB, #1 INHALER 03/29/19 Ranitidine Hcl* (Ranitidine Hcl*) 300 Mg Tablet, 300 MG GTB HS, #30 TAB 03/29/19 Levetiracetam* (Keppra*) 500 Mg Tablet, 500 MG GTB BID, TAB 03/29/19 Gabapentin* (Gabapentin*) 100 Mg Capsule, 100 MG GTB QHS, #90 CAP 03/29/19 Doxazosin Mesylate* (Doxazosin Mesylate*) 2 Mg Tablet, 2 MG GTB HS, TAB 03/29/19 Docusate Sodium* (Dok*) 100 Mg Tablet, 100 MG GTB BID, #60 CAP 03/29/19 Cyanocobalamin (Vitamin B-12) (Cyanocobalamin Injection) 1,000 Mcg/1 Ml Vial, 1000 MCG IJ EVERY MONDAY, VIAL 03/29/19 Clopidogrel Bisulfate (Clopidogrel) 75 Mg Tablet, 75 MG GTB DAILY, #30 TAB 03/29/19 Calcium Carbonate ([place]-500) 500 Mg Tablet, 500 MG GTB DAILY, TAB 03/29/19 Baclofen* (Baclofen*) 10 Mg Tablet, 10 MG GTB BID, TAB 03/29/19 Atorvastatin* (Atorvastatin*) 40 Mg Tablet, 40 MG GTB QHS, #30 TAB 03/29/19 Aspirin (Low Dose Aspirin) 81 Mg Tablet.dr, 81 MG GTB DAILY, #30 TAB 03/29/19 Medications Current Medications IV Flush (NS 3 ml) 3 ml PER PROTOCOL IV ; Start 03/29/19 at 13:30 Ondansetron HCl (Zofran Inj) 4 mg Q6H PRN IV NAUSEA/VOMITING Last administered on 04/07/19at 18:53; Admin Dose 4 MG; Start 03/29/19 at 13:30 Acetaminophen (Tylenol Tab) 650 mg Q6H PRN PO .PAIN 1-3 OR TEMP Last administered on 03/31/19at 05:48; Admin Dose 650 MG; Start 03/29/19 at 13:30 Hydralazine HCl (Apresoline) 10 mg Q4H PRN IV sbp >185 Last administered on 04/18/19 14:27; Admin Dose 10 MG; Start 03/29/19 at 14:00 Miscellaneous Information 1 ea NOTE XX ; Start 03/29/19 at 14:30 Glucose (Glutose) 15 gm Q15M PRN PO DECREASED GLUCOSE; Start 03/29/19 at 14:30 Glucose (Glutose) 22.5 gm Q15M PRN PO DECREASED GLUCOSE; Start 03/29/19 at 14:30 Dextrose (D50w Syringe) 25 ml Q15M PRN IV DECREASED GLUCOSE Last administered on 04/13/19 05:56; Admin Dose 25 ML; Start 03/29/19 at 14:30; Status Hold Dextrose (D50w Syringe) 50 ml Q15M PRN IV DECREASED GLUCOSE; Start 03/29/19 at 14:30 Glucagon (Glucagen) 1 mg Q15M PRN IM DECREASED GLUCOSE; Start 03/29/19 at 14:30 Glucose (Glutose) 15 gm Q15M PRN BUCCAL DECREASED GLUCOSE; Start 03/29/19 at 14:30 Albumin Human 100 ml @ 100 mls/hr WITH DIALYSIS PRN IV SBP <90 DURING DIALYSIS Last administered on 04/24/19at 10:37; Admin Dose 100 MLS/HR; Start 03/29/19 at 17:00 Albuterol/ Ipratropium (Duoneb) 3 ml Q2H RESP THERAPY PRN HHN WHEEZING AND RESP DISTRESS Last administered on 04/09/19 08:52; Admin Dose 3 ML; Start 03/29/19 at 18:00 Lorazepam (Ativan) 0.5 mg Q4H PRN IV AGITATION Last administered on 04/16/19 15:45; Admin Dose 0.5 MG; Start 03/29/19 at 18:00 IV Flush (NS 10 ml) 10 ml Q8 PRN IV IV PROTOCOL; Start 03/29/19 at 18:00 Labetalol HCl (Labetalol) 10 mg Q4H PRN IV sbp >160 Last administered on 04/20/19 21:32; Admin Dose 10 MG; Start 03/30/19 at 09:00 Haloperidol (Haldol) 5 mg Q6H PRN IM agitation Last administered on 03/31/19 00:10; Admin Dose 5 MG; Start 03/30/19 at 10:00 Heparin Sodium (Porcine) (Heparin (1000 Units/ml)) 3,200 unit AFTER DIALYSIS CATHETER Last administered on 04/24/19 13:20; Admin Dose 3,200 UNIT; Start 03/30/19 at 17:00 Atorvastatin Calcium (Lipitor) 40 mg HS NGT Last administered on 04/24/19 20:27; Admin Dose 40 MG; Start 03/31/19 at 21:00 Baclofen (Lioresal) 10 mg BID GTB Last administered on 04/24/19 20:27; Admin Dose 10 MG; Start 03/31/19 at 21:00 Doxazosin Mesylate (Cardura) 2 mg DAILY NGT Last administered on 04/22/19 14:17; Admin Dose 2 MG; Start 03/31/19 at 14:30 Gabapentin (Neurontin) 100 mg QHS PO Last administered on 04/24/19 20:27; Admin Dose 100 MG; Start 03/31/19 at 21:00 Acetaminophen (Tylenol Liquid) 650 mg Q4H PRN PEG MILD PAIN(1-3)OR ELEVATED TEMP Last administered on 04/16/19 08:42; Admin Dose 650 MG; Start 03/31/19 at 16:00 Lactobacillus Acidophilus/ Rhamnosus (Culturelle) 1 cap TID GTB Last administered on 04/24/19 22:17; Admin Dose 1 CAP; Start 04/02/19 at 13:00 Epoetin [place]-epbx (Retacrit (Esrd)) 10,000 unit MoWeFr@1700 SC Last administered on 04/24/19 18:07; Admin Dose 10,000 UNIT; Start 04/03/19 at 19:30 Lansoprazole (Prevacid) 30 mg BID@0600,1800 GTB Last administered on 04/25/19 05:01; Admin Dose 30 MG; Start 04/04/19 at 18:00 Multivit/Ca Carb/ B Cmplx/FA/Prenat (Karena-Geovanni) 1 tab DAILY GTB Last administered on 04/24/19 08:38; Admin Dose 1 TAB; Start 04/04/19 at 11:30 Aspirin (Aspirin) 81 mg DAILY PO Last administered on 04/24/19 08:38; Admin Dose 81 MG; Start 04/05/19 at 09:00 Fentanyl 100 ml @ 2.5 mls/hr TITRATE IV Last administered on 04/21/19 02:38; Admin Dose 4 MLS/HR; Start 04/08/19 at 00:00 Midazolam HCl 50 ml @ 1 mls/hr TITRATE PRN IV agitation Last administered on 04/25/19 01:36; Admin Dose 7 MLS/HR; Start 04/08/19 at 00:00 Norepinephrine 250 ml @ 1.875 mls/ hr TITRATE IV Last administered on 04/25/19 06:02; Admin Dose 9.375 MLS/HR; Start 04/08/19 at 00:00 Mupirocin (Bactroban) 1 applic BID TOP Last administered on 04/24/19 20:36; Admin Dose 1 APPLIC; Start 04/09/19 at 21:00 Budesonide (Pulmicort (Neb)) 0.5 mg BID RESP THERAPY HHN Last administered on 04/24/19 19:49; Admin Dose 0.5 MG; Start 04/12/19 at 09:00 Insulin Aspart (Novolog Insulin Pen) NOVOLOG *MILD* ALGORI... Q4 SC Last administered on 04/25/19 04:56; Admin Dose 4 UNIT; Start 04/13/19 at 09:00 Clopidogrel Bisulfate (plaVIX) 75 mg DAILY GTB Last administered on 04/24/19 08:38; Admin Dose 75 MG; Start 04/16/19 at 09:00 Quetiapine Fumarate (Seroquel) 50 mg QHS GTB Last administered on 04/24/19 20:27; Admin Dose 50 MG; Start 04/16/19 at 21:00 Losartan Potassium (Cozaar) 25 mg DAILY PO Last administered on 04/23/19 09:19; Admin Dose 25 MG; Start 04/17/19 at 09:00 Alteplase, Recombinant (Cathflo (Activase)) 2 mg MAY REPEAT X1 PRN CATHETER IF CATHETER REMAINS OCCULUDED Last administered on 04/17/19 11:21; Admin Dose 2 MG; Start 04/17/19 at 09:30 Insulin Glargine (Lantus) 10 units DAILY@0800 SC Last administered on 04/24/19 08:47; Admin Dose 10 UNITS; Start 04/17/19 at 11:00 Albuterol (Ventolin Hfa) 4 puff Q6H RESP THERAPY INH Last administered on 04/25/19 01:30; Admin Dose 4 PUFF; Start 04/18/19 at 02:00 Ipratropium [place] (Atrovent Hfa) 4 puff Q6H RESP THERAPY INH Last administered on 04/25/19 02:10; Admin Dose 4 PUFF; Start 04/18/19 at 02:00 Docusate Sodium (Colace Liquid Cup) 100 mg BID PEG Last administered on 04/24/19 20:26; Admin Dose 100 MG; Start 04/20/19 at 23:00 Polyethylene Glycol (Miralax) 17 gm DAILY PEG Last administered on 04/24/19 08:38; Admin Dose 17 GM; Start 04/21/19 at 09:00 Nitroglycerin/ Dextrose 250 ml @ 1.5 mls/hr TITRATE IV Last administered on 04/21/19 00:24; Admin Dose 1.5 MLS/HR; Start 04/21/19 at 00:30 Miscellaneous Information (Pending Santyl Order For Wound Care) This patient mcneal... PRN PRN XX WOUND CARE; Start 04/21/19 at 18:00 Carvedilol (Coreg) 3.125 mg QID NGT Last administered on 04/24/19 20:27; Admin Dose 3.125 MG; Start 04/23/19 at 09:00 Metoclopramide HCl (Reglan) 5 mg Q6 IV Last administered on 04/25/19at 06:01; Admin Dose 5 MG; Start 04/24/19 at 12:00 Assessment/Plan Hospital Course (Demo Recall) 1. History of extensive coronary artery disease status post [place] status post coronary bypass graft status post PCI 2. Status post multiple CVA 3. End-stage renal disease on hemodialysis 4. hx of Hypertension: labile . hypotensive now 5. Dyslipidemia 6. encephalopathy 7. Dysphagia status post PEG placement 8. Severe anemia and history of GI bleed 9. Respiratory failure status post intubation on the vent now Recommendations: Cont with aspirin Plavix Respiratory care and ventilatory support will be continued. Hemodialysis as per renal. Low dose Coreg only if he can tolerate it transfuse prn vent support for now awaiting trach Thank you for this referral. We will continue to follow along with you SEAN CROUCH MD [facility] SEAN CROUCH MD Apr 25, 2019 08:05
[2019-04-25] MEDS: LOSARTAN 25 MG TAB PO SCH (09:00)
[2019-04-25] MEDS: DOXAZOSIN 2 MG TAB NGT SCH (09:00)
[2019-04-25] MEDS: DOCUSATE SODIUM 10 MG/ML (10ML CUP) PEG SCH ×2 (10:31→21:11)
[2019-04-25] MEDS: INSULIN GLARGINE [LANTus] (100 UNITS/ML) SYG SC SCH (10:31)
[2019-04-25] MEDS: POLYETHYLENE GLYCOL 17 GM PACKET PEG SCH (10:31)
[2019-04-25] MEDS: BALSAM PERU/CASTOR OIL 60 GM TUBE TOP SCH (10:32)
[2019-04-25] MEDS: CLOPIDOGREL 75 MG TAB GTB SCH (10:32)
[2019-04-25] MEDS: BACLOFEN 10 MG TAB GTB SCH ×2 (10:32→21:12)
[2019-04-25] MEDS: LACTOBACILLUS RHAMNOSUS CAP GTB SCH ×3 (10:32→21:11)
[2019-04-25] MEDS: ASPIRIN 81 MG TAB PO SCH (10:32)
[2019-04-25] MEDS: MULTIVIT/CA CARB/B CMPLX/FA TAB GTB SCH (10:32)
[2019-04-25] MEDS: MUPIROCIN 2% 22 GM OINT TOP SCH ×2 (10:33→21:12)
--- NOTE | 2019-04-25 11:16 | CONS ---
Consult Date/Type/Reason Admit Date/Time Mar 29, 2019 at 13:16 Initial Consult Date 04/07/19 Type of Consult Pulmonary Requesting Provider: LILLIAN ZHANG MD Date/Time of Note DATE: 04/25/19 TIME: 11:15 Subjective Patient comfortable this morning. No new events Objective Vital Signs Date Temp Pulse Resp B/P (MAP) Pulse Ox O2 O2 Flow FiO2 Time Delivery Rate 04/25/19 117 08:00 04/25/19 16 97 40 05:38 04/25/19 105/78 05:15 (87) 04/25/19 Mechanical 05:00 Ventilator 04/25/19 98.3 04:00 Intake and Output 04/24/19 04/24/19 04/25/19 1515:00 23:00 07:00 IntakeIntake Total 45.30 ml 158.5 ml 181.03 ml OutputOutput Total 3210 ml 0 ml 70 ml BalanceBalance -3164.70 ml 158.5 ml 111.03 ml Exam GENERAL: Elderly appearing gentleman orally intubated on mechanical ventilation VITAL SIGNS: per chart NECK: Supple. No JVD or lymphadenopathy. CARDIAC EXAM: S1, S2. No added sounds or murmurs. CHEST: Diminished air entry bilaterally ABDOMEN: Soft, nontender. No guarding or rebound. EXTREMITIES: No cyanosis, clubbing or edema. NEUROLOGIC: Generalized weakness. Unable to assess Vent Setting Ventilator Support Mode: AC Fraction of Inspired Oxygen pe: 40 Positive End Expiratory Pressu: 5.0 Results/Medications Result Diagram: 04/24/19 0400 04/24/19 0400 Results 24 hrs Laboratory Tests Test 04/24/19 14:48 04/24/19 17:45 04/24/19 20:19 04/25/19 01:40 Bedside Glucose 181 261 H 270 H 288 H Test 04/25/19 04:54 04/25/19 10:25 Bedside Glucose 287 H 318 H Medications Current Medications IV Flush (NS 3 ml) 3 ml PER PROTOCOL IV ; Start 03/29/19 at 13:30 Ondansetron HCl (Zofran Inj) 4 mg Q6H PRN IV NAUSEA/VOMITING Last administered on 04/07/19at 18:53; Admin Dose 4 MG; Start 03/29/19 at 13:30 Acetaminophen (Tylenol Tab) 650 mg Q6H PRN PO .PAIN 1-3 OR TEMP Last administered on 03/31/19 05:48; Admin Dose 650 MG; Start 03/29/19 at 13:30 Hydralazine HCl (Apresoline) 10 mg Q4H PRN IV sbp >185 Last administered on 04/18/19 14:27; Admin Dose 10 MG; Start 03/29/19 at 14:00 Miscellaneous Information 1 ea NOTE XX ; Start 03/29/19 at 14:30 Glucose (Glutose) 15 gm Q15M PRN PO DECREASED GLUCOSE; Start 03/29/19 at 14:30 Glucose (Glutose) 22.5 gm Q15M PRN PO DECREASED GLUCOSE; Start 03/29/19 at 14:30 Dextrose (D50w Syringe) 25 ml Q15M PRN IV DECREASED GLUCOSE Last administered on 04/13/19 05:56; Admin Dose 25 ML; Start 03/29/19 at 14:30; Status Hold Dextrose (D50w Syringe) 50 ml Q15M PRN IV DECREASED GLUCOSE; Start 03/29/19 at 14:30 Glucagon (Glucagen) 1 mg Q15M PRN IM DECREASED GLUCOSE; Start 03/29/19 at 14:30 Glucose (Glutose) 15 gm Q15M PRN BUCCAL DECREASED GLUCOSE; Start 03/29/19 at 14:30 Albumin Human 100 ml @ 100 mls/hr WITH DIALYSIS PRN IV SBP <90 DURING DIALYSIS Last administered on 04/24/19at 10:37; Admin Dose 100 MLS/HR; Start 03/29/19 at 17:00 Albuterol/ Ipratropium (Duoneb) 3 ml Q2H RESP THERAPY PRN HHN WHEEZING AND RESP DISTRESS Last administered on 04/09/19 08:52; Admin Dose 3 ML; Start 03/29/19 at 18:00 Lorazepam (Ativan) 0.5 mg Q4H PRN IV AGITATION Last administered on 04/16/19 15:45; Admin Dose 0.5 MG; Start 03/29/19 at 18:00 IV Flush (NS 10 ml) 10 ml Q8 PRN IV IV PROTOCOL; Start 03/29/19 at 18:00 Labetalol HCl (Labetalol) 10 mg Q4H PRN IV sbp >160 Last administered on 04/20/19at 21:32; Admin Dose 10 MG; Start 03/30/19 at 09:00 Haloperidol (Haldol) 5 mg Q6H PRN IM agitation Last administered on 03/31/19 00:10; Admin Dose 5 MG; Start 03/30/19 at 10:00 Heparin Sodium (Porcine) (Heparin (1000 Units/ml)) 3,200 unit AFTER DIALYSIS CATHETER Last administered on 04/24/19 13:20; Admin Dose 3,200 UNIT; Start 03/30/19 at 17:00 Atorvastatin Calcium (Lipitor) 40 mg HS NGT Last administered on 04/24/19 20:27; Admin Dose 40 MG; Start 03/31/19 at 21:00 Baclofen (Lioresal) 10 mg BID GTB Last administered on 04/25/19 10:32; Admin Dose 10 MG; Start 03/31/19 at 21:00 Doxazosin Mesylate (Cardura) 2 mg DAILY NGT Last administered on 04/22/19 14:17; Admin Dose 2 MG; Start 03/31/19 at 14:30 Gabapentin (Neurontin) 100 mg QHS PO Last administered on 04/24/19 20:27; Admin Dose 100 MG; Start 03/31/19 at 21:00 Acetaminophen (Tylenol Liquid) 650 mg Q4H PRN PEG MILD PAIN(1-3)OR ELEVATED TEMP Last administered on 04/16/19 08:42; Admin Dose 650 MG; Start 03/31/19 at 16:00 Lactobacillus Acidophilus/ Rhamnosus (Culturelle) 1 cap TID GTB Last administered on 04/25/19 10:32; Admin Dose 1 CAP; Start 04/02/19 at 13:00 Epoetin [place]-epbx (Retacrit (Esrd)) 10,000 unit MoWeFr@1700 SC Last a dministered on 04/24/19 18:07; Admin Dose 10,000 UNIT; Start 04/03/19 at 19:30 Lansoprazole (Prevacid) 30 mg BID@0600,1800 GTB Last administered on 04/25/19 05:01; Admin Dose 30 MG; Start 04/04/19 at 18:00 Multivit/Ca Carb/ B Cmplx/FA/Prenat (Karena-Geovanni) 1 tab DAILY GTB Last administered on 04/25/19 10:32; Admin Dose 1 TAB; Start 04/04/19 at 11:30 Aspirin (Aspirin) 81 mg DAILY PO Last administered on 04/25/19 10:32; Admin Dose 81 MG; Start 04/05/19 at 09:00 Fentanyl 100 ml @ 2.5 mls/hr TITRATE IV Last administered on 04/21/19 02:38; Admin Dose 4 MLS/HR; Start 04/08/19 at 00:00 Midazolam HCl 50 ml @ 1 mls/hr TITRATE PRN IV agitation Last administered on 04/25/19 01:36; Admin Dose 7 MLS/HR; Start 04/08/19 at 00:00 Norepinephrine 250 ml @ 1.875 mls/ hr TITRATE IV Last administered on 04/25/19 06:02; Admin Dose 9.375 MLS/HR; Start 04/08/19 at 00:00 Mupirocin (Bactroban) 1 applic BID TOP Last administered on 04/25/19 10:33; Admin Dose 1 APPLIC; Start 04/09/19 at 21:00 Budesonide (Pulmicort (Neb)) 0.5 mg BID RESP THERAPY HHN Last administered on 04/24/19 19:49; Admin Dose 0.5 MG; Start 04/12/19 at 09:00 Insulin Aspart (Novolog Insulin Pen) NOVOLOG *MILD* ALGORI... Q4 SC Last administered on 04/25/19 10:29; Admin Dose 5 UNIT; Start 04/13/19 at 09:00 Clopidogrel Bisulfate (plaVIX) 75 mg DAILY GTB Last administered on 04/25/19 10:32; Admin Dose 75 MG; Start 04/16/19 at 09:00 Quetiapine Fumarate (Seroquel) 50 mg QHS GTB Last administered on 04/24/19 20:27; Admin Dose 50 MG; Start 04/16/19 at 21:00 Losartan Potassium (Cozaar) 25 mg DAILY PO Last administered on 04/23/19 09:19; Admin Dose 25 MG; Start 04/17/19 at 09:00 Alteplase, Recombinant (Cathflo (Activase)) 2 mg MAY REPEAT X1 PRN CATHETER IF CATHETER REMAINS OCCULUDED Last administered on 7/10/19at 11:21; Admin Dose 2 MG; Start 04/17/19 at 09:30 Albuterol (Ventolin Hfa) 4 puff Q6H RESP THERAPY INH Last administered on 04/25/19at 01:30; Admin Dose 4 PUFF; Start 04/18/19 at 02:00 Ipratropium [place] (Atrovent Hfa) 4 puff Q6H RESP THERAPY INH Last administered on 04/25/19 02:10; Admin Dose 4 PUFF; Start 04/18/19 at 02:00 Docusate Sodium (Colace Liquid Cup) 100 mg BID PEG Last administered on 9at 10:31; Admin Dose 100 MG; Start 04/20/19 at 23:00 Polyethylene Glycol (Miralax) 17 gm DAILY PEG Last administered on 04/25/19at 10:31; Admin Dose 17 GM; Start 04/21/19 at 09:00 Nitroglycerin/ Dextrose 250 ml @ 1.5 mls/hr TITRATE IV Last administered on 04/21/19at 00:24; Admin Dose 1.5 MLS/HR; Start 04/21/19 at 00:30 Miscellaneous Information (Pending [facility] Order For Wound Care) This patient mcneal... PRN PRN XX WOUND CARE; Start 04/21/19 at 18:00 Carvedilol (Coreg) 3.125 mg QID NGT Last administered on 04/24/19at 20:27; Admin Dose 3.125 MG; Start 04/23/19 at 09:00 Metoclopramide HCl (Reglan) 5 mg Q6 IV Last administered on 04/25/19at 06:01; Admin Dose 5 MG; Start 04/24/19 at 12:00 Insulin Glargine (Lantus) 15 units DAILY@0800 SC ; Start 04/26/19 at 08:00 Insulin Glargine (Lantus) 5 units ONCE SC ; Start 04/25/19 at 11:30; Stop 04/25/19 at 23:59 Assessment/Plan Hospital Course (Demo Recall) IMP: 1. Respiratory Failure/Ventilator Dependence 2. Status post septic Shock 3. Chronic renal insufficiency on hemodialysis 4. Anemia likely of chronic disease 5. Encephalopathy toxic metabolic RECS: 1. Ventilator support--patient is unable to be liberated from mechanical ventilation secondary to his encephalopathy. ET tube leak noted however patient receiving adequate tidal volumes and is scheduled for tracheostomy soon we will therefore hold off on tube exchange. 3. HD/UD. 4. Anti-seizure medications. 5. Continue tube feeding as tolerated Family requested tracheostomy. Will be scheduled Critical care time 40 minutes. Elliott evaluation SAMMI MOSES MD, [facility] Apr 25, 2019 11:16
[2019-04-25] MEDS ORDERED: INSULIN GLARGINE [LANTus] (100 UNITS/ML) SYG SC SCH (11:30)
[2019-04-25] MEDS: BUDESONIDE (NEB) 0.5MG/2ML AMP HHN SCH ×2 (14:02→20:45)
--- NOTE | 2019-04-25 14:23 | PN ---
DATE: 04/25/2019 SUBJECTIVE: No acute changes overnight. The patient remains intubated and sedated, in no distress. No fevers overnight. No labs this morning. INDWELLINGS: Endotracheal tube, NG tube, right chest Perm-A-Cath, left upper extremity PICC line. Marisa manning also has Winters catheter. PHYSICAL EXAMINATION: GENERAL: This is a chronically ill-appearing, elderly man who is in no distress. HEENT: Head atraumatic, normocephalic. NECK: Supple. CHEST: Rise symmetrical. Breath sounds diminished to bases. HEART: S1, S2. ABDOMEN: Soft, bowel tones present. EXTREMITIES: With trace edema. ASSESSMENT: 1. Status post sepsis with shock. 2. Acute respiratory failure. 3. Status post pneumonia. 4. Encephalopathy. 5. End-stage renal disease, hemodialysis dependent. 6. Sinusitis and bilateral mastoiditis, patient completed 2 weeks intravenous antibiotics. 7. Seizure disorder. PLAN: The patient remains stable and unchanged. Continue present care, plan for tracheostomy. Repe at cultures p.r.n. Dictated By: UMA COLINDRES LOSS PREVENTION LEADER for RAMONE NUNEZ MD NI/NTS Conf#: [id number] DID#: [id number] CC: STEWART WINTER MD;*EndCC*
--- NOTE | 2019-04-25 14:23 | CONS ---
Assessment/Plan Assessment/Plan Assessment/Plan (Daily) 1. Acute hypoxemic respiratory failure intubated on ventilator - persistently failed weaning 2. Accelerated HTN 3. ESRD on HD - MWF schedule at [facility] HD [facility] 4. H/o CAD s/p CABG before 5. H/o CAD with previous recent stent placement in 09/2018 6. h/o HTN 7. H/o DM II 8. h/o HL 9. 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 H/o BPH Plan: s/p Family meeting , Family wants tracheostomy- Scheduled on Monday on 04/26/19 BP stable, s/p HD yesterday 2.5 L removed- will continue pt on MWF schedule while being in hospital- HD ordered for Monday pt is on Coreg 12.5 mg pO BID, losartan 25 mg po daily and HYdralazine 50mg PO TID , cardura 2 mg po daily Epogen 82955 units SQ MWF will follow up Consultation Date/Type/Reason Admit Date/Time Mar 29, 2019 at 13:16 Initial Consult Date 03/29/19 Type of Consult NEPHROLOGY Requesting Provider: LILLIAN ZHANG MD Date/Time of Note DATE: 04/25/19 TIME: 14:23 Exam/Review of Systems Exam Vitals Vital Signs Date Temp Pulse Resp B/P (MAP) Pulse Ox O2 O2 Flow FiO2 Time Delivery Rate 04/25/19 40 12:00 04/25/19 106 12:00 04/25/19 16 96/69 (78) Mechanical 09:45 Ventilator 04/25/19 98.9 08:00 04/25/19 97 05:38 Intake and Output 04/24/19 04/24/19 04/25/19 1515:00 23:00 07:00 IntakeIntake Total 45.30 ml 158.5 ml 181.03 ml OutputOutput Total 3210 ml 0 ml 70 ml BalanceBalance -3164.70 ml 158.5 ml 111.03 ml Exam Constitutional: intubated on ventilator , ET tube in place Respiratory: crackles/rales, diminished breath sounds Cardiovascular: regular rate and rhythm, nl pulses Gastrointestinal: soft, non-tender Musculoskeletal: swelling (1-2+pitting edema ) Extremities: normal pulses Neurological: Non focal Results Result Diagram: 04/24/19 0400 04/24/19 0400 Results 24hrs Laboratory Tests Test 04/24/19 14:48 04/24/19 17:45 04/24/19 20:19 04/25/19 01:40 Bedside Glucose 181 261 H 270 H 288 H Test 04/25/19 04:54 04/25/19 10:25 04/25/19 12:12 Bedside Glucose 287 H 318 H 321 H Medications Medication Current Medications IV Flush (NS 3 ml) 3 ml PER PROTOCOL IV ; Start 03/29/19 at 13:30 Ondansetron HCl (Zofran Inj) 4 mg Q6H PRN IV NAUSEA/VOMITING Last administered on 04/07/19 18:53; Admin Dose 4 MG; Start 03/29/19 at 13:30 Acetaminophen (Tylenol Tab) 650 mg Q6H PRN PO .PAIN 1-3 OR TEMP Last administered on 03/31/19at 05:48; Admin Dose 650 MG; Start 03/29/19 at 13:30 Hydralazine HCl (Apresoline) 10 mg Q4H PRN IV sbp >185 Last administered on 04/18/19at 14:27; Admin Dose 10 MG; Start 03/29/19 at 14:00 Miscellaneous Information 1 ea NOTE XX ; Start 03/29/19 at 14:30 Glucose (Glutose) 15 gm Q15M PRN PO DECREASED GLUCOSE; Start 03/29/19 at 14:30 Glucose (Glutose) 22.5 gm Q15M PRN PO DECREASED GLUCOSE; Start 03/29/19 at 14:30 Dextrose (D50w Syringe) 25 ml Q15M PRN IV DECREASED GLUCOSE Last administered on 04/13/19 05:56; Admin Dose 25 ML; Start 03/29/19 at 14:30; Status Hold Dextrose (D50w Syringe) 50 ml Q15M PRN IV DECREASED GLUCOSE; Start 03/29/19 at 14:30 Glucagon (Glucagen) 1 mg Q15M PRN IM DECREASED GLUCOSE; Start 03/29/19 at 14:30 Glucose (Glutose) 15 gm Q15M PRN BUCCAL DECREASED GLUCOSE; Start 03/29/19 at 14:30 Albumin Human 100 ml @ 100 mls/hr WITH DIALYSIS PRN IV SBP <90 DURING DIALYSIS Last administered on 04/24/19at 10:37; Admin Dose 100 MLS/HR; Start 03/29/19 at 17:00 Albuterol/ Ipratropium (Duoneb) 3 ml Q2H RESP THERAPY PRN HHN WHEEZING AND RESP DISTRESS Last administered on 04/09/19 08:52; Admin Dose 3 ML; Start 03/29/19 at 18:00 Lorazepam (Ativan) 0.5 mg Q4H PRN IV AGITATION Last administered on 04/16/19 15:45; Admin Dose 0.5 MG; Start 03/29/19 at 18:00 IV Flush (NS 10 ml) 10 ml Q8 PRN IV IV PROTOCOL; Start 03/29/19 at 18:00 Labetalol HCl (Labetalol) 10 mg Q4H PRN IV sbp >160 Last administered on 04/20/19 21:32; Admin Dose 10 MG; Start 03/30/19 at 09:00 Haloperidol (Haldol) 5 mg Q6H PRN IM agitation Last administered on 03/31/19 00:10; Admin Dose 5 MG; Start 03/30/19 at 10:00 Heparin Sodium (Porcine) (Heparin (1000 Units/ml)) 3,200 unit AFTER DIALYSIS CATHETER Last administered on 04/24/19 13:20; Admin Dose 3,200 UNIT; Start 03/30/19 at 17:00 Atorvastatin Calcium (Lipitor) 40 mg HS NGT Last administered on 04/24/19 20:27; Admin Dose 40 MG; Start 03/31/19 at 21:00 Baclofen (Lioresal) 10 mg BID GTB Last administered on 04/25/19 10:32; Admin Dose 10 MG; Start 03/31/19 at 21:00 Doxazosin Mesylate (Cardura) 2 mg DAILY NGT Last administered on 04/22/19 14:17; Admin Dose 2 MG; Start 03/31/19 at 14:30 Gabapentin (Neurontin) 100 mg QHS PO Last administered on 04/24/19 20:27; Admin Dose 100 MG; Start 03/31/19 at 21:00 Acetaminophen (Tylenol Liquid) 650 mg Q4H PRN PEG MILD PAIN(1-3)OR ELEVATED TEMP Last administered on 04/16/19 08:42; Admin Dose 650 MG; Start 03/31/19 at 16:00 Lactobacillus Acidophilus/ Rhamnosus (Culturelle) 1 cap TID GTB Last administered on 04/25/19 12:11; Admin Dose 1 CAP; Start 04/02/19 at 13:00 Epoetin [place]-epbx (Retacrit (Esrd)) 10,000 unit MoWeFr@1700 SC Last administered on 04/24/19 18:07; Admin Dose 10,000 UNIT; Start 04/03/19 at 19:30 Lansoprazole (Prevacid) 30 mg BID@0600,1800 GTB Last administered on 04/25/19 05:01; Admin Dose 30 MG; Start 04/04/19 at 18:00 Multivit/Ca Carb/ B Cmplx/FA/Prenat ([place]arena-Geovanni) 1 tab DAILY GTB Last administe red on 04/25/19 10:32; Admin Dose 1 TAB; Start 04/04/19 at 11:30 Aspirin (Aspirin) 81 mg DAILY PO Last administered on 04/25/19 10:32; Admin Dose 81 MG; Start 04/05/19 at 09:00 Fentanyl 100 ml @ 2.5 mls/hr TITRATE IV Last administered on 04/21/19 02:38; Admin Dose 4 MLS/HR; Start 04/08/19 at 00:00 Midazolam HCl 50 ml @ 1 mls/hr TITRATE PRN IV agitation Last administered on 04/25/19 13:08; Admin Dose 3 MLS/HR; Start 04/08/19 at 00:00 Norepinephrine 250 ml @ 1.875 mls/ hr TITRATE IV Last administered on 04/25/19 06:02; Admin Dose 9.375 MLS/HR; Start 04/08/19 at 00:00 Mupirocin (Bactroban) 1 applic BID TOP Last administered on 04/25/19 10:33; Admin Dose 1 APPLIC; Start 04/09/19 at 21:00 Budesonide (Pulmicort (Neb)) 0.5 mg BID RESP THERAPY HHN Last administered on 04/25/19 14:02; Admin Dose 0.5 MG; Start 04/12/19 at 09:00 Insulin Aspart (Novolog Insulin Pen) NOVOLOG *MILD* ALGORI... Q4 SC Last administered on 7/18/19at 12:14; Admin Dose 5 UNIT; Start 04/13/19 at 09:00 Clopidogrel Bisulfate (plaVIX) 75 mg DAILY GTB Last administered on 04/25/19 10:32; Admin Dose 75 MG; Start 04/16/19 at 09:00 Quetiapine Fumarate (Seroquel) 50 mg QHS GTB Last administered on 04/24/19 20:27; Admin Dose 50 MG; Start 04/16/19 at 21:00 Losartan Potassium (Cozaar) 25 mg DAILY PO Last administered on 04/23/19 09:19; Admin Dose 25 MG; Start 04/17/19 at 09:00 Alteplase, Recombinant (Cathflo (Activase)) 2 mg MAY REPEAT X1 PRN CATHETER IF CATHETER REMAINS OCCULUDED Last administered on 04/17/19 11:21; Admin Dose 2 MG; Start 04/17/19 at 09:30 Albuterol (Ventolin Hfa) 4 puff Q6H RESP THERAPY INH Last administered on 04/25/19 14:02; Admin Dose 4 PUFF; Start 04/18/19 at 02:00 Ipratropium [place] (Atrovent Hfa) 4 puff Q6H RESP THERAPY INH Last administered on 04/25/19 14:01; Admin Dose 4 PUFF; Start 04/18/19 at 02:00 Docusate Sodium (Colace Liquid Cup) 100 mg BID PEG Last administered on 04/25/19 10:31; Admin Dose 100 MG; Start 04/20/19 at 23:00 Polyethylene Glycol (Miralax) 17 gm DAILY PEG Last administered on 04/25/19 10:31; Admin Dose 17 GM; Start 04/21/19 at 09:00 Nitroglycerin/ Dextrose 250 ml @ 1.5 mls/hr TITRATE IV Last administered on 04/21/19 00:24; Admin Dose 1.5 MLS/HR; Start 04/21/19 at 00:30 Miscellaneous Information (Pending Santyl Order For Wound Care) This patient mcneal... PRN PRN XX WOUND CARE; Start 04/21/19 at 18:00 Carvedilol (Coreg) 3.125 mg QID NGT Last administered on 04/24/19 20:27; Admin Dose 3.125 MG; Start 04/23/19 at 09:00 Metoclopramide HCl (Reglan) 5 mg Q6 IV Last administered on 04/25/19at 12:11; Admin Dose 5 MG; Start 04/24/19 at 12:00 Insulin Glargine (Lantus) 15 units DAILY@0800 SC ; Start 04/26/19 at 08:00 Insulin Glargine (Lantus) 5 units ONCE SC Last administered on 04/25/19at 12:15; Admin Dose 5 UNITS; Start 04/25/19 at 11:30; Stop 04/25/19 at 23:59 BETZAIDA YAÑEZ MD Apr 25, 2019 14:23
--- NOTE | 2019-04-25 15:55 | PN ---
Date/Time of Note Date/Time of Note DATE: 04/25/19 TIME: 15:50 Assessment/Plan VTE Prophylaxis Risk score (from Nsg)>0 risk: 7 SCD applied (from Ns): Yes Pharmacological prophylaxis: heparin Lines/Catheters IV Catheter Type (from Nrs): PERMA CATH Assessment/Plan Hospital Course 1. Acute hypoxic respiratory failure - patient remains intubated and too weak to clear his secretions making him a poor candidate for extubation -Family has agreed to tracheostomy placement, plan is for trach placement tomorrow - Pulmonology consultation appreciated and will continue vent at this time. - patient was extubated 04/17 and needed to be reintubated a few hours later due to desaturation and inability to clear his secretions 2. Acute encephalopathy secondary to acute left thalamic stroke with delirium - Neuro on board and appreciate consultation - Carotid US noted with stenosis <70%. Will continue plavix at this time given patient not stable for any type of intervention but will need to be assessed for CEA in the future -Trying to wean off sedation but patient continues to bite on ET tube and fight the vent, continue restraints -Neurology following, EEG demonstrates diffuse slowing 3. HCAP/Aspiration Pneumonia- resolving - CXR with no signs of PNA - Pulm on board and appreciate recommendations - ID on board for antibiotic management 4. History of CVA with residual left-sided deficit and more recent CVA - New left thalamic stroke appreciated on repeat MRI. - Neurology consultation appreciated -MRI shows old chronic lacunar infarcts bilaterally in the basal ganglia and thalamus as well as right frontal murguia radiata small vessel infarct 5. Anemia - stable - GI consultation appreciated and EGD revealed moderate distal esophagitis and gastritis and duodenitis. Colonoscopy showed internal hemorrhoids. Will need repeat colonoscopy in the future 6. End-stage renal disease on hemodialysis - Nephrology on board and appreciate consultation. Continue HD 7. Coronary artery disease status post CABG history - continue home medications - continue on Plavix and aspirin 8. Epilepsy - Continue Keppra - EEG noted with slowing 9. BPH Prophylaxis: Heparin Disposition -Family agreeable for tracheostomy placement, CT surgery aware and plan is for placement tomorrow, possible Elliott placement after trach placed Result Diagram: 04/24/19 0400 04/24/19 0400 Results 24hrs Laboratory Tests Test 04/24/19 17:45 04/24/19 20:19 04/25/19 01:40 04/25/19 04:54 Bedside Glucose 261 H 270 H 288 H 287 H Test 04/25/19 10:25 04/25/19 12:12 Bedside Glucose 318 H 321 H Subjective 24 Hr Interval Summary Subjective hx not possible: pt non-verbal Exam/Review of Systems Exam Vitals Vital Signs Date Temp Pulse Resp B/P (MAP) Pulse Ox O2 O2 Flow FiO2 Time Delivery Rate 04/25/19 83 16 96 40 14:53 04/25/19 121/73 Mechanical 14:15 (89) Ventilator 04/25/19 99.0 12:00 Intake and Output 04/24/19 04/24/19 04/25/19 1515:00 23:00 07:00 IntakeIntake Total 45.30 ml 158.5 ml 207.405 ml OutputOutput Total 3210 ml 0 ml 70 ml BalanceBalance -3164.70 ml 158.5 ml 137.405 ml Constitutional: non-verbal ENMT: intubated Respiratory: clear to auscultation Cardiovascular: regular rate and rhythm Gastrointestinal: soft; No distended Musculoskeletal: nl extremities to inspection Results Results 24hrs Laboratory Tests Test 04/24/19 17:45 04/24/19 20:19 04/25/19 01:40 04/25/19 04:54 Bedside Glucose 261 H 270 H 288 H 287 H Test 04/25/19 10:25 04/25/19 12:12 Bedside Glucose 318 H 321 H Medications Medication Current Medications IV Flush (NS 3 ml) 3 ml PER PROTOCOL IV ; Start 03/29/19 at 13:30 Ondansetron HCl (Zofran Inj) 4 mg Q6H PRN IV NAUSEA/VOMITING Last administered on 04/07/19at 18:53; Admin Dose 4 MG; Start 03/29/19 at 13:30 Acetaminophen (Tylenol Tab) 650 mg Q6H PRN PO .PAIN 1-3 OR TEMP Last administered on 03/31/19at 05:48; Admin Dose 650 MG; Start 03/29/19 at 13:30 Hydralazine HCl (Apresoline) 10 mg Q4H PRN IV sbp >185 Last administered on 04/18/19at 14:27; Admin Dose 10 MG; Start 03/29/19 at 14:00 Miscellaneous Information 1 ea NOTE XX ; Start 03/29/19 at 14:30 Glucose (Glutose) 15 gm Q15M PRN PO DECREASED GLUCOSE; Start 03/29/19 at 14:30 Glucose (Glutose) 22.5 gm Q15M PRN PO DECREASED GLUCOSE; Start 03/29/19 at 14:30 Dextrose (D50w Syringe) 25 ml Q15M PRN IV DECREASED GLUCOSE Last administered on 04/13/19 05:56; Admin Dose 25 ML; Start 03/29/19 at 14:30; Status Hold Dextrose (D50w Syringe) 50 ml Q15M PRN IV DECREASED GLUCOSE; Start 03/29/19 at 14:30 Glucagon (Glucagen) 1 mg Q15M PRN IM DECREASED GLUCOSE; Start 03/29/19 at 14:30 Glucose (Glutose) 15 gm Q15M PRN BUCCAL DECREASED GLUCOSE; Start 03/29/19 at 14:30 Albumin Human 100 ml @ 100 mls/hr WITH DIALYSIS PRN IV SBP <90 DURING DIALYSIS Last administered on 04/24/19at 10:37; Admin Dose 100 MLS/HR; Start 03/29/19 at 17:00 Albuterol/ Ipratropium (Duoneb) 3 ml Q2H RESP THERAPY PRN HHN WHEEZING AND RESP DISTRESS Last administered on 04/09/19 08:52; Admin Dose 3 ML; Start 03/29/19 at 18:00 Lorazepam (Ativan) 0.5 mg Q4H PRN IV AGITATION Last administered on 04/16/19at 15:45; Admin Dose 0.5 MG; Start 03/29/19 at 18:00 IV Flush (NS 10 ml) 10 ml Q8 PRN IV IV PROTOCOL; Start 03/29/19 at 18:00 Labetalol HCl (Labetalol) 10 mg Q4H PRN IV sbp >160 Last administered on 04/20/19at 21:32; Admin Dose 10 MG; Start 03/30/19 at 09:00 Haloperidol (Haldol) 5 mg Q6H PRN IM agitation Last administered on 03/31/19at 00:10; Admin Dose 5 MG; Start 03/30/19 at 10:00 Heparin Sodium (Porcine) (Heparin (1000 Units/ml)) 3,200 unit AFTER DIALYSIS CATHETER Last administered on 04/24/19at 13:20; Admin Dose 3,200 UNIT; Start 03/30/19 at 17:00 Atorvastatin Calcium (Lipitor) 40 mg HS NGT Last administered on 04/24/19 20:27; Admin Dose 40 MG; Start 03/31/19 at 21:00 Baclofen (Lioresal) 10 mg BID GTB Last administered on 04/25/19 10:32; Admin Dose 10 MG; Start 03/31/19 at 21:00 Doxazosin Mesylate (Cardura) 2 mg DAILY NGT Last administered on 04/22/19 14:17; Admin Dose 2 MG; Start 03/31/19 at 14:30 Gabapentin (Neurontin) 100 mg QHS PO Last administered on 04/24/19 20:27; Admin Dose 100 MG; Start 03/31/19 at 21:00 Acetaminophen (Tylenol Liquid) 650 mg Q4H PRN PEG MILD PAIN(1-3)OR ELEVATED TEMP Last administered on 04/16/19 08:42; Admin Dose 650 MG; Start 03/31/19 at 16:00 Lactobacillus Acidophilus/ Rhamnosus (Culturelle) 1 cap TID GTB Last administered on 04/25/19 12:11; Admin Dose 1 CAP; Start 04/02/19 at 13:00 Epoetin [place]-epbx (Retacrit (Esrd)) 10,000 unit MoWeFr@1700 SC Last administered on 04/24/19 18:07; Admin Dose 10,000 UNIT; Start 04/03/19 at 19:30 Lansoprazole (Prevacid) 30 mg BID@0600,1800 GTB Last administered on 04/25/19 05:01; Admin Dose 30 MG; Start 04/04/19 at 18:00 Multivit/Ca Carb/ B Cmplx/FA/Prenat (Karena-Geovanni) 1 tab DAILY GTB Last administered on 04/25/19 10:32; Admin Dose 1 TAB; Start 04/04/19 at 11:30 Aspirin (Aspirin) 81 mg DAILY PO Last administered on 04/25/19 10:32; Admin Dose 81 MG; Start 04/05/19 at 09:00 Fentanyl 100 ml @ 2.5 mls/hr TITRATE IV Last administered on 04/21/19 02:38; Admin Dose 4 MLS/HR; Start 04/08/19 at 00:00 Midazolam HCl 50 ml @ 1 mls/hr TITRATE PRN IV agitation Last administered on 04/25/19 13:08; Admin Dose 3 MLS/HR; Start 04/08/19 at 00:00 Norepinephrine 250 ml @ 1.875 mls/ hr TITRATE IV Last administered on 04/25/19 06:02; Admin Dose 9.375 MLS/HR; Start 04/08/19 at 00:00 Mupirocin (Bactroban) 1 applic BID TOP Last administered on 04/25/19 10:33; Admin Dose 1 APPLIC; Start 04/09/19 at 21:00 Budesonide (Pulmicort (Neb)) 0.5 mg BID RESP THERAPY HHN Last administered on 04/25/19 14:02; Admin Dose 0.5 MG; Start 04/12/19 at 09:00 Insulin Aspart (Novolog Insulin Pen) NOVOLOG *MILD* ALGORI... Q4 SC Last administered on 04/25/19 12:14; Admin Dose 5 UNIT; Start 04/13/19 at 09:00 Clopidogrel Bisulfate (plaVIX) 75 mg DAILY GTB Last administered on 04/25/19 10:32; Admin Dose 75 MG; Start 04/16/19 at 09:00 Quetiapine Fumarate (Seroquel) 50 mg QHS GTB Last administered on 04/24/19 20:27; Admin Dose 50 MG; Start 04/16/19 at 21:00 Losartan Potassium (Cozaar) 25 mg DAILY PO Last administered on 04/23/19 09:19; Admin Dose 25 MG; Start 04/17/19 at 09:00 Alteplase, Recombinant (Cathflo (Activase)) 2 mg MAY REPEAT X1 PRN CATHETER IF CATHETER REMAINS OCCULUDED Last administered on 04/17/19 11:21; Admin Dose 2 MG; Start 04/17/19 at 09:30 Albuterol (Ventolin Hfa) 4 puff Q6H RESP THERAPY INH Last administered on 04/25/19 14:39; Admin Dose 4 PUFF; Start 04/18/19 at 02:00 Ipratropium [place] (Atrovent Hfa) 4 puff Q6H RESP THERAPY INH Last administered on 04/25/19 14:38; Admin Dose 4 PUFF; Start 04/18/19 at 02:00 Docusate Sodium (Colace Liquid Cup) 100 mg BID PEG Last administered on 04/25/19 10:31; Admin Dose 100 MG; Start 04/20/19 at 23:00 Polyethylene Glycol (Miralax) 17 gm DAILY PEG Last administered on 04/25/19 10:31; Admin Dose 17 GM; Start 04/21/19 at 09:00 Nitroglycerin/ Dextrose 250 ml @ 1.5 mls/hr TITRATE IV Last administered on 04/21/19 00:24; Admin Dose 1.5 MLS/HR; Start 04/21/19 at 00:30 Miscellaneous Information (Pending [facility] Order For Wound Care) This patient mcneal... PRN PRN XX WOUND CARE; Start 04/21/19 at 18:00 Carvedilol (Coreg) 3.125 mg QID NGT Last administered on 04/24/19 20:27; Admin Dose 3.125 MG; Start 04/23/19 at 09:00 Metoclopramide HCl (Reglan) 5 mg Q6 IV Last administered on 04/25/19at 12:11; Admin Dose 5 MG; Start 04/24/19 at 12:00 Insulin Glargine (Lantus) 15 units DAILY@0800 SC ; Start 04/26/19 at 08:00 Insulin Glargine (Lantus) 5 units ONCE SC Last administered on 04/25/19at 12:15; Admin Dose 5 UNITS; Start 04/25/19 at 11:30; Stop 04/25/19 at 23:59 ZHANG YOUNG Apr 25, 2019 15:55
--- NOTE | 2019-04-25 19:29 | PN ---
Date/Time of Note Date/Time of Note DATE: 04/25/19 TIME: 19:28 Assessment/Plan Lines/Catheters IV Catheter Type (from Nrsg): PERMA CATH Assessment/Plan Assessment/Plan IMPRESSION: Respiratory failure with multiple comorbidities including pneumonia. The patient is unable to come off the ventilator. RECOMMENDATION: We will proceed with tracheostomy when the consent is available. Discussed with the nursing staff. We discussed with the family. Subjective 24 Hr Interval Summary Constitutional: improved Pain Control: mild Exam/Review of Systems Vital Signs Vitals Vital Signs Date Temp Pulse Resp B/P (MAP) Pulse Ox O2 O2 Flow FiO2 Time Delivery Rate 04/25/19 78 16 84/63 (70) 95 Mechanical 19:00 Ventilator 04/25/19 40 16:27 04/25/19 99.9 16:00 Intake and Output 04/24/19 04/24/19 04/25/19 1515:00 23:00 07:00 IntakeIntake Total 45.30 ml 158.5 ml 207.405 ml OutputOutput Total 3210 ml 0 ml 70 ml BalanceBalance -3164.70 ml 158.5 ml 137.405 ml Exam Eyes: nl conjunctiva, EOMI, nl lids, nl sclera ENMT: nl external ears & nose, nl lips & teeth, nl nasal mucosa & septum, mucosa pink and moist Neck: supple, non-tender Respiratory: clear to auscultation, normal air movement Cardiovascular: regular rate and rhythm, nl pulses Gastrointestinal: soft, nl liver, spleen, non-tender Musculoskeletal: nl extremities to inspection, nl gait and stance Results Result Diagram: 04/24/190 04/24/190 NICOLA TERRY MD Apr 25, 2019 19:29
[2019-04-25] MEDS: ATORVASTATIN 40 MG TAB NGT SCH (21:11)
[2019-04-25] MEDS: GABAPENTIN 100 MG CAP PO SCH (21:11)
[2019-04-25] MEDS: QUETIAPINE 25 MG TAB GTB SCH (21:11)
[2019-04-26] VITALS (107 sets, daily range): BP systolic 51–154; BP diastolic 32–118; PULSE 85–137; RESP 8–29
[2019-04-26] MEDS: IPRATROPIUM (HFA) 12.9 GM INHALER INH SCH ×4 (02:50→19:30)
[2019-04-26] MEDS: ALBUTEROL HFA 8 GM INHALER INH SCH ×4 (02:50→19:30)
[2019-04-26] MEDS: INSULIN ASPART [NOVOLOG] 3 ML PEN SC SCH ×5 (04:05→20:52)
[2019-04-26] MEDS: LANSOPRAZOLE 30 MG CAP GTB SCH ×2 (05:22→17:38)
[2019-04-26] MEDS: METOCLOPRAMIDE 10 MG INJ IV SCH ×3 (05:24→17:37)
--- NOTE | 2019-04-26 07:56 | CONS ---
Consult Date/Type/Reason Admit Date/Time Mar 29, 2019 at 13:16 Initial Consult Date 04/07/19 Type of Consultation: cv Requesting Provider: LILLIAN ZHANG MD Date/Time of Note DATE: 04/26/19 TIME: 07:54 Subjective Interventional cardiology follow-up progress note Subjective: Discussed with the staff and Telemetry was reviewed. pt remains in NSR PT remains intubated on vent Patient is a still hypotensive and required to be on Levophed drip Patient nonverbal. pt has been agitated off sedation currently is sedated again events noted: extubated and had to be re-intubated on 04/17/19 objective: General: s/p intubation on the ventilator HEENT: NC/AT. pupils are equal. round. NECK:. no stridor. CV: RRR. systolic murmur; no gallop or rubs. PULM: + rhonchi. GI: SOFT, NT, ND, no rebound or guarding s/p PEG Extremity: trace B/L LE edema. no clubbing. neuro: sedated Psych: calm rectal: deferred : normal ECHO 04/09/19 REVIEWED Normal left ventricular systolic function. Normal left ventricular cavity size. Mild concentric left ventricular hypertrophy. Ejection fraction is visually estimated at 55 %. Tissue Doppler/Mitral Doppler indices are consistent with impaired relaxation (Stage I diastolic dysfunction). Mild mitral leaflet calcification. Mild mitral annular calcification. Mild mitral valve regurgitation. No significant aortic stenosis or insufficiency. Aortic cusps appear mildly calcified. Normal appearance of the tricuspid valve. The estimated Peak RVSP is 25 mmHg. There is trace tricuspid regurgitation. cxr 04/09/19 Persistent small left greater than right pleural effusions with associated atelectasis/infiltrate. CXR . Appropriate position of central lines and endotracheal tube. 2. Bilateral perihilar and basilar airspace opacities representing pulmonary edema or infection. 3. Small left pleural effusion. CXR Decrease in left-sided pleural effusion. Left basilar opacity may represent atelectasis, but edema or infection not excluded. MRI Brain 04/16 1. Acute, ischemic, small vessel left thalamic infarct. 2. Chronic right greater than left bilateral basal ganglia and bilateral thalamic lacunar infarcts 3. Moderate chronic microvascular ischemic disease and diffuse volume loss 4. Chronic right frontal murguia radiata small vessel infarct 5. 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 Objective Vitals Vital Signs Date Temp Pulse Resp B/P (MAP) Pulse Ox O2 O2 Flow FiO2 Time Delivery Rate 04/26/19 92 16 90/66 (74) 92 Mechanical 07:00 Ventilator 04/26/19 40 05:41 04/26/19 98.9 04:00 Intake and Output 04/25/19 04/25/19 04/26/19 1515:00 23:00 07:00 IntakeIntake Total 401.375 ml 239.125 ml 84.002 ml OutputOutput Total 0 ml 0 ml BalanceBalance 401.375 ml 239.125 ml 84.002 ml Results/Medications Result Diagram: 04/26/19 0516 04/26/19 0516 Results 24 hrs Laboratory Tests Test 04/25/19 10:25 04/25/19 12:12 04/25/19 17:05 04/25/19 21:07 Bedside Glucose 318 H 321 H 311 H 299 H Test 04/25/19 23:42 04/26/19 03:59 04/26/19 05:16 Bedside Glucose 269 H 287 H White Blood Count 23.4 #H Red Blood Count 3.82 L Hemoglobin 11.1 L Hematocrit 36.7 L Mean Corpuscular 96.1 Volume Mean Corpuscular 29.1 Hemoglobin Mean Corpuscular 30.2 L Hemoglobin Concent Red Cell 19.3 H Distribution Width Platelet Count 575 #H Mean Platelet Volume 10.4 Immature 0.700 H Granulocytes % Neutrophils % 86.7 H Lymphocytes % 5.7 L Monocytes % 5.2 Eosinophils % 1.1 Basophils % 0.6 Nucleated Red Blood 0.0 Cells % Immature 0.170 H Granulocytes # Neutrophils # 20.3 H Lymphocytes # 1.3 Monocytes # 1.2 H Eosinophils # 0.3 Basophils # 0.2 H Nucleated Red Blood 0.0 Cells # Sodium Level 145 H Potassium Level 4.3 Chloride Level 101 Carbon Dioxide Level 28 Anion Gap 16 H Blood Urea Nitrogen 38 H Creatinine 7.15 H Est Glomerular 8 L Filtrat Rate mL/min Glucose Level 310 H Calcium Level 11.3 H Home Meds Reported Medications Bisacodyl (Dulcolax) 10 Mg Supp.rect, 10 MG RC DAILY PRN for CONSTIPATION, SUPP.RECT 03/29/19 Sodium Phosphate,[place]-Dibasic (Enema Ready To Use) 133 Ml Enema, 133 ML RC EVERY 2 DAYS PRN for CONSTIPATION, ENEMA 03/29/19 Acetaminophen* (Acetaminophen*) 650 Mg Tablet, 650 MG GTB Q4 PRN for MILD PAIN LEVEL 1-3, #30 TAB AND FEVER 03/29/19 Acetaminophen* (Acetaminophen*) 500 MG Extra Strength Tablet, 1000 MG GTB Q4H PRN for MODERATE PAIN LEVEL 4-6, TAB 03/29/19 Acetaminophen* (Acetaminophen*) 500 MG Extra Strength Tablet, 1000 MG GTB BID PRN for GENERAL BODY PAIN, TAB 03/29/19 Amino Acids/Protein Hydrolys (Pro-Stat Awc Liquid) 30 Ml Liquid, 30 ML GTB DAILY SUGAR FREE 03/29/19 Multivitamin* (Daily Value*) 1 Each Tablet, 1 TAB GTB DAILY, TAB 03/29/19 Ascorbic Acid* (Vitamin C*) 500 Mg Capsule.sa, 500 MG GTB DAILY, CAP 03/29/19 Ferrous Sulfate (Ferrous Sulfate) 300 Mg/5 Ml Liquid, 325 MG GTB DAILY 03/29/19 Cran/Vitc/Mannose/Inulin/Brom (Uti-Stat Liquid) 3,875 Mg/30 Ml Liquid, 3875 MG GTB DAILY 03/29/19 Cranberry Extract (Cranberry) 425 Mg Capsule, 425 MG GTB DAILY, CAP 03/29/19 Insulin Glulisine (Apidra Solostar) 100 Unit/1 Ml Insuln.pen, 4 UNIT SQ TIDM A, #1 TUB 03/29/19 Insulin Glargine,Hum.rec.anlog (Basaglar Kwikpen U-100) 100 Unit/1 Ml Insuln.pen, 25 UNIT SC QHS, EA 03/29/19 Insulin Regular, Human (Humulin R) 100 Unit/1 Ml Vial, 0 IJ AC MEALS AND BEDTIME, VIAL 0-150 = 0 UNIT 151-200 = 1 UNIT 201-250 = 2 UNITS 251-300 = 3 UNITS 301-350 = 4 UNITS 351-400 = 5 UNITS OVER 400 GIVE 6 UNITS UNDER 70 OR OVER 400 NOTIFY 03/29/19 Sertraline Hcl* (Sertraline Hcl*) 25 Mg Tablet, 25 MG GTB DAILY, #30 TAB 03/29/19 Lorazepam* (Ativan*) 0.5 Mg Tablet, 0.5 MG GTB DAILY PRN for ANXIETY, #30 TAB 03/29/19 Quetiapine Fumarate* (Seroquel*) 25 Mg Tablet, 25 MG GTB HS, #30 TAB 03/29/19 Lorazepam* (Lorazepam*) 0.5 Mg Tablet, 0.5 MG GTB DAILY PRN for ANXIETY, TAB 03/29/19 Clonidine Hcl* (Clonidine Hcl*) 0.1 Mg Tab, 0.1 MG GTB DAILY PRN for ELEVATED BLOOD PRESSURE, TAB SBP >160 03/29/19 Azelastine Hcl* (Azelastine Hcl*) 137 Mcg/0.137 Ml [place].pump, 2 SPRAYS NASAL BID, #1 EA TO EACH NOSTRIL 03/29/19 Carvedilol* (Carvedilol*) 12.5 Mg Tablet, 12.5 MG GTB BID, #60 TAB 03/29/19 Diltiazem Hcl* (Cardizem CD*) 240 Mg Cap.sr.24h, 240 MG GTB DAILY, #30 CAP 03/29/19 Ergocalciferol (Vitamin D2) (VITAMIN D2) 50,000 Unit Capsule, 64645 UNIT GTB EVERY MONDAY, CAP 03/29/19 Hydralazine Hcl* (Hydralazine Hcl*) 50 Mg Tab, 50 MG GTB TID PRN for ELEVATED BLOOD PRESSURE, #60 TAB 03/29/19 Losartan Potassium* (Losartan Potassium*) 100 Mg Tablet, 100 MG GTB DAILY, TAB 03/29/19 Metoprolol Succinate* (Toprol XL*) 25 Mg Tab.sr.24h, 25 MG GTB DAILY, #30 TAB 03/29/19 Linagliptin (TRADJENTA) 5 Mg Tablet, 5 MG GTB DAILY, TAB 03/29/19 Albuterol Sulfate* (Proair HFA*) 8.5 Gm Hfa.aer.ad, 2 PUFF INH Q4H PRN for WHEEZING AND SOB, #1 INHALER 03/29/19 Ranitidine Hcl* (Ranitidine Hcl*) 300 Mg Tablet, 300 MG GTB HS, #30 TAB 03/29/19 Levetiracetam* (Keppra*) 500 Mg Tablet, 500 MG GTB BID, TAB 03/29/19 Gabapentin* (Gabapentin*) 100 Mg Capsule, 100 MG GTB QHS, #90 CAP 03/29/19 Doxazosin Mesylate* (Doxazosin Mesylate*) 2 Mg Tablet, 2 MG GTB HS, TAB 03/29/19 Docusate Sodium* (Dok*) 100 Mg Tablet, 100 MG GTB BID, #60 CAP 03/29/19 Cyanocobalamin (Vitamin B-12) (Cyanocobalamin Injection) 1,000 Mcg/1 Ml Vial, 1000 MCG IJ EVERY MONDAY, VIAL 03/29/19 Clopidogrel Bisulfate (Clopidogrel) 75 Mg Tablet, 75 MG GTB DAILY, #30 TAB 03/29/19 Calcium Carbonate ([place]-500) 500 Mg Tablet, 500 MG GTB DAILY, TAB 03/29/19 Baclofen* (Baclofen*) 10 Mg Tablet, 10 MG GTB BID, TAB 03/29/19 Atorvastatin* (Atorvastatin*) 40 Mg Tablet, 40 MG GTB QHS, #30 TAB 03/29/19 Aspirin (Low Dose Aspirin) 81 Mg Tablet.dr, 81 MG GTB DAILY, #30 TAB 03/29/19 Medications Current Medications IV Flush (NS 3 ml) 3 ml PER PROTOCOL IV ; Start 03/29/19 at 13:30 Ondansetron HCl (Zofran Inj) 4 mg Q6H PRN IV NAUSEA/VOMITING Last administered on 04/07/19at 18:53; Admin Dose 4 MG; Start 03/29/19 at 13:30 Acetaminophen (Tylenol Tab) 650 mg Q6H PRN PO .PAIN 1-3 OR TEMP Last administered on 03/31/19at 05:48; Admin Dose 650 MG; Start 03/29/19 at 13:30 Hydralazine HCl (Apresoline) 10 mg Q4H PRN IV sbp >185 Last administered on 04/18/19at 14:27; Admin Dose 10 MG; Start 03/29/19 at 14:00 Miscellaneous Information 1 ea NOTE XX ; Start 03/29/19 at 14:30 Glucose (Glutose) 15 gm Q15M PRN PO DECREASED GLUCOSE; Start 03/29/19 at 14:30 Glucose (Glutose) 22.5 gm Q15M PRN PO DECREASED GLUCOSE; Start 03/29/19 at 14:30 Dextrose (D50w Syringe) 25 ml Q15M PRN IV DECREASED GLUCOSE Last administered on 04/13/19 05:56; Admin Dose 25 ML; Start 03/29/19 at 14:30; Status Hold Dextrose (D50w Syringe) 50 ml Q15M PRN IV DECREASED GLUCOSE; Start 03/29/19 at 14:30 Glucagon (Glucagen) 1 mg Q15M PRN IM DECREASED GLUCOSE; Start 03/29/19 at 14:30 Glucose (Glutose) 15 gm Q15M PRN BUCCAL DECREASED GLUCOSE; Start 03/29/19 at 14:30 Albumin Human 100 ml @ 100 mls/hr WITH DIALYSIS PRN IV SBP <90 DURING DIALYSIS Last administered on 04/24/19at 10:37; Admin Dose 100 MLS/HR; Start 03/29/19 at 17:00 Albuterol/ Ipratropium (Duoneb) 3 ml Q2H RESP THERAPY PRN HHN WHEEZING AND RESP DISTRESS Last administered on 04/09/19 08:52; Admin Dose 3 ML; Start 03/29/19 at 18:00 Lorazepam (Ativan) 0.5 mg Q4H PRN IV AGITATION Last administered on 04/16/19at 15 :45; Admin Dose 0.5 MG; Start 03/29/19 at 18:00 IV Flush (NS 10 ml) 10 ml Q8 PRN IV IV PROTOCOL; Start 03/29/19 at 18:00 Labetalol HCl (Labetalol) 10 mg Q4H PRN IV sbp >160 Last administered on 04/20 21:32; Admin Dose 10 MG; Start 03/30/19 at 09:00 Haloperidol (Haldol) 5 mg Q6H PRN IM agitation Last administered on 03/31/19 00:10; Admin Dose 5 MG; Start 03/30/19 at 10:00 Heparin Sodium (Porcine) (Heparin (1000 Units/ml)) 3,200 unit AFTER DIALYSIS CATHETER Last administered on 04/24/19 13:20; Admin Dose 3,200 UNIT; Start 03/30/19 at 17:00 Atorvastatin Calcium (Lipitor) 40 mg HS NGT Last administered on 04/25/19 21:11; Admin Dose 40 MG; Start 03/31/19 at 21:00 Baclofen (Lioresal) 10 mg BID GTB Last administered on 04/25/19 21:12; Admin Dose 10 MG; Start 03/31/19 at 21:00 Doxazosin Mesylate (Cardura) 2 mg DAILY NGT Last administered on 04/22/19 14:17; Admin Dose 2 MG; Start 03/31/19 at 14:30 Gabapentin (Neurontin) 100 mg QHS PO Last administered on 04/25/19 21:11; Admin Dose 100 MG; Start 03/31/19 at 21:00 Acetaminophen (Tylenol Liquid) 650 mg Q4H PRN PEG MILD PAIN(1-3)OR ELEVATED TEMP Last administered on 04/16/19 08:42; Admin Dose 650 MG; Start 03/31/19 at 16:00 Lactobacillus Acidophilus/ Rhamnosus (Culturelle) 1 cap TID GTB Last administered on 04/25/19 21:11; Admin Dose 1 CAP; Start 04/02/19 at 13:00 Epoetin [place]-epbx (Retacrit (Esrd)) 10,000 unit MoWeFr@1700 SC Last administered on 04/24/19 18:07; Admin Dose 10,000 UNIT; Start 04/03/19 at 19:30 Lansoprazole (Prevacid) 30 mg BID@0600,1800 GTB Last administered on 04/25/19 17:10; Admin Dose 30 MG; Start 04/04/19 at 18:00 Multivit/Ca Carb/ B Cmplx/FA/Prenat ([place]) 1 tab DAILY GTB Last admini stered on 04/25/19 10:32; Admin Dose 1 TAB; Start 04/04/19 at 11:30 Aspirin (Aspirin) 81 mg DAILY PO Last administered on 04/25/19 10:32; Admin Dose 81 MG; Start 04/05/19 at 09:00 Fentanyl 100 ml @ 2.5 mls/hr TITRATE IV Last administered on 04/21/19 02:38; Admin Dose 4 MLS/HR; Start 04/08/19 at 00:00 Midazolam HCl 50 ml @ 1 mls/hr TITRATE PRN IV agitation Last administered on 04/25/19 13:08; Admin Dose 3 MLS/HR; Start 04/08/19 at 00:00 Norepinephrine 250 ml @ 1.875 mls/ hr TITRATE IV Last administered on 04/25/19 06:02; Admin Dose 9.375 MLS/HR; Start 04/08/19 at 00:00 Mupirocin (Bactroban) 1 applic BID TOP Last administered on 04/25/19 21:12; Admin Dose 1 APPLIC; Start 04/09/19 at 21:00 Budesonide (Pulmicort (Neb)) 0.5 mg BID RESP THERAPY HHN Last administered on 04/25/19 20:45; Admin Dose 0.5 MG; Start 04/12/19 at 09:00 Insulin Aspart (Novolog Insulin Pen) NOVOLOG *MILD* ALGORI... Q4 SC Last administered on 04/26/19 04:05; Admin Dose 4 UNIT; Start 04/13/19 at 09:00 Clopidogrel Bisulfate (plaVIX) 75 mg DAILY GTB Last administered on 04/25/19 10:32; Admin Dose 75 MG; Start 04/16/19 at 09:00 Quetiapine Fumarate (Seroquel) 50 mg QHS GTB Last administered on 04/25/19 21: 11; Admin Dose 50 MG; Start 04/16/19 at 21:00 Losartan Potassium (Cozaar) 25 mg DAILY PO Last administered on 04/23/19 09:19; Admin Dose 25 MG; Start 04/17/19 at 09:00 Alteplase, Recombinant (Cathflo (Activase)) 2 mg MAY REPEAT X1 PRN CATHETER IF CATHETER REMAINS OCCULUDED Last administered on 04/17/19 11:21; Admin Dose 2 MG; Start 04/17/19 at 09:30 Albuterol (Ventolin Hfa) 4 puff Q6H RESP THERAPY INH Last administered on 04/26/19 02:50; Admin Dose 4 PUFF; Start 04/18/19 at 02:00 Ipratropium [place] (Atrovent Hfa) 4 puff Q6H RESP THERAPY INH Last administered on 04/26/19 02:50; Admin Dose 4 PUFF; Start 04/18/19 at 02:00 Docusate Sodium (Colace Liquid Cup) 100 mg BID PEG Last administered on 04/25/19 21:11; Admin Dose 100 MG; Start 04/20/19 at 23:00 Polyethylene Glycol (Miralax) 17 gm DAILY PEG Last administered on 04/25/19at 10:31; Admin Dose 17 GM; Start 04/21/19 at 09:00 Nitroglycerin/ Dextrose 250 ml @ 1.5 mls/hr TITRATE IV Last administered on 04/21/19at 00:24; Admin Dose 1.5 MLS/HR; Start 04/21/19 at 00:30 Miscellaneous Information (Pending Santyl Order For Wound Care) This patient mcneal... PRN PRN XX WOUND CARE; Start 04/21/19 at 18:00 Carvedilol (Coreg) 3.125 mg QID NGT Last administered on 04/24/19at 20:27; Admin Dose 3.125 MG; Start 04/23/19 at 09:00 Metoclopramide HCl (Reglan) 5 mg Q6 IV Last administered on 04/26/19at 05:24; Admin Dose 5 MG; Start 04/24/19 at 12:00 Insulin Glargine (Lantus) 17 units DAILY@0800 SC ; Start 04/26/19 at 08:00 Assessment/Plan Hospital Course (Demo Recall) 1. History of extensive coronary artery disease status post SD status post coronary bypass graft status post PCI 2. Status post multiple CVA 3. End-stage renal disease on hemodialysis 4. hx of Hypertension: labile . hypotensive now 5. Dyslipidemia 6. encephalopathy 7. Dysphagia status post PEG placement 8. Severe anemia and history of GI bleed 9. Respiratory failure status post intubation on the vent now Recommendations: Cont with aspirin Plavix given his recurrent CVA as well as recent PCI Respiratory care and ventilatory support will be continued. Hemodialysis as per renal. Low dose Coreg only if he can tolerate it . But for now he is off of the Coreg due to his low blood pressure and is on Levophed drip transfuse prn awaiting trach today Thank you for this referral. We will continue to follow along with you as needed over the weekend SEAN CROUCH MD [facility] SEAN CROUCH MD Apr 26, 2019 07:56
[2019-04-26] MEDS ORDERED: INSULIN GLARGINE [LANTus] (100 UNITS/ML) SYG SC SCH ×2 (08:00)
--- NOTE | 2019-04-26 08:10 | CONS ---
Assessment/Plan Assessment/Plan Assessment/Plan (Daily) 1. Acute hypoxemic respiratory failure intubated on ventilator - persistently failed weaning 2. Accelerated HTN 3. ESRD on HD - MWF schedule at [facility] HD center 4. H/o CAD s/p CABG before 5. H/o CAD with previous recent stent placement in 09/2018 6. h/o HTN 7. H/o DM II 8. h/o HL 9. 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 H/o BPH Plan: s/p Tracheostomy on 04/26/19 s/p HD today 2.1 L removed, will continue HD on MWF while being in hospital, pt will need New HD center placement now due to being a tracheostomy patient, will have environmental health manager to send request to [facility] [place] [facility] pt is on Coreg 12.5 mg pO BID, losartan 25 mg po daily and HYdralazine 50mg PO TID , cardura 2 mg po daily Epogen 19764 units SQ MWF will follow up Consultation Date/Type/Reason Admit Date/Time Mar 29, 2019 at 13:16 Initial Consult Date 03/29/19 Type of Consult NEPHROLOGY Requesting Provider: LILLIAN ZHANG MD Date/Time of Note DATE: 04/26/19 TIME: 08:10 24 HR Interval Summary Free Text/Dictation plan for trach today, Plan for HD today Exam/Review of Systems Exam Vitals Vital Signs Date Temp Pulse Resp B/P (MAP) Pulse Ox O2 O2 Flow FiO2 Time Delivery Rate 04/26/19 95 19 94 40 07:54 04/26/19 90/66 (74) Mechanical 07:00 Ventilator 04/26/19 98.9 04:00 Intake and Output 04/25/19 04/25/19 04/26/19 1515:00 23:00 07:00 IntakeIntake Total 401.375 ml 239.125 ml 84.002 ml OutputOutput Total 0 ml 0 ml BalanceBalance 401.375 ml 239.125 ml 84.002 ml Results Result Diagram: 04/26/19 0516 04/26/19 0516 Results 24hrs Laboratory Tests Test 04/25/19 10:25 04/25/19 12:12 04/25/19 17:05 04/25/19 21:07 Bedside Glucose 318 H 321 H 311 H 299 H Test 04/25/19 23:42 04/26/19 03:59 04/26/19 05:16 Bedside Glucose 269 H 287 H White Blood Count 23.4 #H Red Blood Count 3.82 L Hemoglobin 11.1 L Hematocrit 36.7 L Mean Corpuscular 96.1 Volume Mean Corpuscular 29.1 Hemoglobin Mean Corpuscular 30.2 L Hemoglobin Concent Red Cell 19.3 H Distribution Width Platelet Count 575 #H Mean Platelet Volume 10.4 Immature 0.700 H Granulocytes % Neutrophils % 86.7 H Lymphocytes % 5.7 L Monocytes % 5.2 Eosinophils % 1.1 Basophils % 0.6 Nucleated Red Blood 0.0 Cells % Immature 0.170 H Granulocytes # Neutrophils # 20.3 H Lymphocytes # 1.3 Monocytes # 1.2 H Eosinophils # 0.3 Basophils # 0.2 H Nucleated Red Blood 0.0 Cells # Sodium Level 145 H Potassium Level 4.3 Chloride Level 101 Carbon Dioxide Level 28 Anion Gap 16 H Blood Urea Nitrogen 38 H Creatinine 7.15 H Est Glomerular 8 L Filtrat Rate mL/min Glucose Level 310 H Calcium Level 11.3 H Medications Medication Current Medications IV Flush (NS 3 ml) 3 ml PER PROTOCOL IV ; Start 03/29/19 at 13:30 Ondansetron HCl (Zofran Inj) 4 mg Q6H PRN IV NAUSEA/VOMITING Last administered on 04/07/19at 18:53; Admin Dose 4 MG; Start 03/29/19 at 13:30 Acetaminophen (Tylenol Tab) 650 mg Q6H PRN PO .PAIN 1-3 OR TEMP Last administered on 03/31/19at 05:48; Admin Dose 650 MG; Start 03/29/19 at 13:30 Hydralazine HCl (Apresoline) 10 mg Q4H PRN IV sbp >185 Last administered on 04/18/19at 14:27; Admin Dose 10 MG; Start 03/29/19 at 14:00 Miscellaneous Information 1 ea NOTE XX ; Start 03/29/19 at 14:30 Glucose (Glutose) 15 gm Q15M PRN PO DECREASED GLUCOSE; Start 03/29/19 at 14:30 Glucose (Glutose) 22.5 gm Q15M PRN PO DECREASED GLUCOSE; Start 03/29/19 at 14:30 Dextrose (D50w Syringe) 25 ml Q15M PRN IV DECREASED GLUCOSE Last administered on 04/13/19 05:56; Admin Dose 25 ML; Start 03/29/19 at 14:30; Status Hold Dextrose (D50w Syringe) 50 ml Q15M PRN IV DECREASED GLUCOSE; Start 03/29/19 at 14:30 Glucagon (Glucagen) 1 mg Q15M PRN IM DECREASED GLUCOSE; Start 03/29/19 at 14:30 Glucose (Glutose) 15 gm Q15M PRN BUCCAL DECREASED GLUCOSE; Start 03/29/19 at 14:30 Albumin Human 100 ml @ 100 mls/hr WITH DIALYSIS PRN IV SBP <90 DURING DIALYSIS Last administered on 04/24/19at 10:37; Admin Dose 100 MLS/HR; Start 03/29/19 at 17:00 Albuterol/ Ipratropium (Duoneb) 3 ml Q2H RESP THERAPY PRN HHN WHEEZING AND RESP DISTRESS Last administered on 04/09/19 08:52; Admin Dose 3 ML; Start 03/29/19 at 18:00 Lorazepam (Ativan) 0.5 mg Q4H PRN IV AGITATION Last administered on 04/16/19at 15:45; Admin Dose 0.5 MG; Start 03/29/19 at 18:00 IV Flush (NS 10 ml) 10 ml Q8 PRN IV IV PROTOCOL; Start 03/29/19 at 18:00 Labetalol HCl (Labetalol) 10 mg Q4H PRN IV sbp >160 Last administered on 04/20/19 21:32; Admin Dose 10 MG; Start 03/30/19 at 09:00 Haloperidol (Haldol) 5 mg Q6H PRN IM agitation Last administered on 03/31/19at 00:10; Admin Dose 5 MG; Start 03/30/19 at 10:00 Heparin Sodium (Porcine) (Heparin (1000 Units/ml)) 3,200 unit AFTER DIALYSIS CATHETER Last administered on 04/24/19 13:20; Admin Dose 3,200 UNIT; Start 03/30/19 at 17:00 Atorvastatin Calcium (Lipitor) 40 mg HS NGT Last administered on 04/25/19 21:11; Admin Dose 40 MG; Start 03/31/19 at 21:00 Baclofen (Lioresal) 10 mg BID GTB Last administered on 04/25/19 21:12; Admin Dose 10 MG; Start 03/31/19 at 21:00 Doxazosin Mesylate (Cardura) 2 mg DAILY NGT Last administered on 04/22/19 14:17; Admin Dose 2 MG; Start 03/31/19 at 14:30 Gabapentin (Neurontin) 100 mg QHS PO Last administered on 04/25/19 21:11; Admin Dose 100 MG; Start 03/31/19 at 21:00 Acetaminophen (Tylenol Liquid) 650 mg Q4H PRN PEG MILD PAIN(1-3)OR ELEVATED TEMP Last administered on 04/16/19 08:42; Admin Dose 650 MG; Start 03/31/19 at 16:00 Lactobacillus Acidophilus/ Rhamnosus (Culturelle) 1 cap TID GTB Last administered on 04/25/19 21:11; Admin Dose 1 CAP; Start 04/02/19 at 13:00 Epoetin [place]-epbx (Retacrit (Esrd)) 10,000 unit MoWeFr@1700 SC Last administe red on 04/24/19 18:07; Admin Dose 10,000 UNIT; Start 04/03/19 at 19:30 Lansoprazole (Prevacid) 30 mg BID@0600,1800 GTB Last administered on 04/25/19 17:10; Admin Dose 30 MG; Start 04/04/19 at 18:00 Multivit/Ca Carb/ B Cmplx/FA/Prenat ([place]arena-Geovanni) 1 tab DAILY GTB Last administered on 04/25/19 10:32; Admin Dose 1 TAB; Start 04/04/19 at 11:30 Aspirin (Aspirin) 81 mg DAILY PO Last administered on 04/25/19 10:32; Admin Dose 81 MG; Start 04/05/19 at 09:00 Fentanyl 100 ml @ 2.5 mls/hr TITRATE IV Last administered on 04/21/19 02:38; Admin Dose 4 MLS/HR; Start 04/08/19 at 00:00 Midazolam HCl 50 ml @ 1 mls/hr TITRATE PRN IV agitation Last administered on 04/25/19 13:08; Admin Dose 3 MLS/HR; Start 04/08/19 at 00:00 Norepinephrine 250 ml @ 1.875 mls/ hr TITRATE IV Last administered on 06:02; Admin Dose 9.375 MLS/HR; Start 04/08/19 at 00:00 Mupirocin (Bactroban) 1 applic BID TOP Last administered on 04/25/19 21:12; Admin Dose 1 APPLIC; Start 04/09/19 at 21:00 Budesonide (Pulmicort (Neb)) 0.5 mg BID RESP THERAPY HHN Last administered on 04/25/19 20:45; Admin Dose 0.5 MG; Start 04/12/19 at 09:00 Insulin Aspart (Novolog Insulin Pen) NOVOLOG *MILD* ALGORI... Q4 SC Last admin istered on 04/26/19 04:05; Admin Dose 4 UNIT; Start 04/13/19 at 09:00 Clopidogrel Bisulfate (plaVIX) 75 mg DAILY GTB Last administered on 04/25/19 10:32; Admin Dose 75 MG; Start 04/16/19 at 09:00 Quetiapine Fumarate (Seroquel) 50 mg QHS GTB Last administered on 04/25/19 21:11; Admin Dose 50 MG; Start 04/16/19 at 21:00 Losartan Potassium (Cozaar) 25 mg DAILY PO Last administered on 04/23/19 09: 19; Admin Dose 25 MG; Start 04/17/19 at 09:00 Alteplase, Recombinant (Cathflo (Activase)) 2 mg MAY REPEAT X1 PRN CATHETER IF CATHETER REMAINS OCCULUDED Last administered on 04/17/19 11:21; Admin Dose 2 MG; Start 04/17/19 at 09:30 Albuterol (Ventolin Hfa) 4 puff Q6H RESP THERAPY INH Last administered on 04/26/19 07:57; Admin Dose 4 PUFF; Start 04/18/19 at 02:00 Ipratropium [place] (Atrovent Hfa) 4 puff Q6H RESP THERAPY INH Last administered on 04/26/19 07:57; Admin Dose 4 PUFF; Start 04/18/19 at 02:00 Docusate Sodium (Colace Liquid Cup) 100 mg BID PEG Last administered on 04/25/19 21:11; Admin Dose 100 MG; Start 04/20/19 at 23:00 Polyethylene Glycol (Miralax) 17 gm DAILY PEG Last administered on 04/25/19at 10:31; Admin Dose 17 GM; Start 04/21/19 at 09:00 Nitroglycerin/ Dextrose 250 ml @ 1.5 mls/hr TITRATE IV Last administered on 04/21/19at 00:24; Admin Dose 1.5 MLS/HR; Start 04/21/19 at 00:30 Miscellaneous Information (Pending [facility] Order For Wound Care) This patient mcneal... PRN PRN XX WOUND CARE; Start 04/21/19 at 18:00 Carvedilol (Coreg) 3.125 mg QID NGT Last administered on 04/24/19at 20:27; Admin Dose 3.125 MG; Start 04/23/19 at 09:00 Metoclopramide HCl (Reglan) 5 mg Q6 IV Last administered on 04/26/19at 05:24; Admin Dose 5 MG; Start 04/24/19 at 12:00 Insulin Glargine (Lantus) 17 units DAILY@0800 SC ; Start 04/26/19 at 08:00 BETZAIDA YAÑEZ MD Apr 26, 2019 08:10
[2019-04-26] MEDS: ALBUMIN HUMAN 25% 100 ML IV PRN (08:36)
[2019-04-26] MEDS: CLOPIDOGREL 75 MG TAB GTB SCH (09:00)
[2019-04-26] MEDS: BACLOFEN 10 MG TAB GTB SCH ×2 (09:00→20:52)
[2019-04-26] MEDS: DOCUSATE SODIUM 10 MG/ML (10ML CUP) PEG SCH ×2 (09:00→20:52)
[2019-04-26] MEDS: DOXAZOSIN 2 MG TAB NGT SCH (09:00)
[2019-04-26] MEDS: LACTOBACILLUS RHAMNOSUS CAP GTB SCH ×3 (09:00→20:52)
[2019-04-26] MEDS: LOSARTAN 25 MG TAB PO SCH (09:00)
[2019-04-26] MEDS: ASPIRIN 81 MG TAB PO SCH (09:00)
[2019-04-26] MEDS: POLYETHYLENE GLYCOL 17 GM PACKET PEG SCH (09:00)
[2019-04-26] MEDS: MULTIVIT/CA CARB/B CMPLX/FA TAB GTB SCH (09:00)
[2019-04-26] MEDS: MUPIROCIN 2% 22 GM OINT TOP SCH ×2 (09:01→20:53)
[2019-04-26] MEDS: BALSAM PERU/CASTOR OIL 60 GM TUBE TOP SCH (09:01)
[2019-04-26] MEDS: BUDESONIDE (NEB) 0.5MG/2ML AMP HHN SCH ×2 (09:53→19:30)
[2019-04-26] MEDS: MIDAZOLAM (DRIP) 50 mg/50 mL 50 ML IV PRN (10:31)
[2019-04-26] MEDS: HEPARIN 1000 UNITS/ML 10 ML INJ CATHETER SCH (11:56)
[2019-04-26] MEDS ORDERED: VANCOMYCIN IV PER PHARMACY XX SCH (13:00)
--- NOTE | 2019-04-26 13:22 | CONS ---
Consult Date/Type/Reason Admit Date/Time Mar 29, 2019 at 13:16 Initial Consult Date 04/07/19 Type of Consult Pulmonary Requesting Provider: LILLIAN ZHANG MD Date/Time of Note DATE: 04/26/19 TIME: 13:20 Subjective Patient comfortable this morning no new events continues mechanical ventilation pending tracheostomy. Completing hemodialysis. Objective Vital Signs Date Temp Pulse Resp B/P (MAP) Pulse Ox O2 O2 Flow FiO2 Time Delivery Rate 04/26/19 110 20 100 40 12:55 04/26/19 97/68 (78) Mechanical 12:30 Ventilator 04/26/19 97.7 12:00 Intake and Output 04/25/19 04/25/19 04/26/19 1515:00 23:00 07:00 IntakeIntake Total 401.375 ml 239.125 ml 84.002 ml OutputOutput Total 0 ml 0 ml BalanceBalance 401.375 ml 239.125 ml 84.002 ml Exam GENERAL: Elderly appearing gentleman orally intubated on mechanical ventilation VITAL SIGNS: per chart NECK: Supple. No JVD or lymphadenopathy. CARDIAC EXAM: S1, S2. No added sounds or murmurs. CHEST: Diminished air entry bilaterally ABDOMEN: Soft, nontender. No guarding or rebound. EXTREMITIES: No cyanosis, clubbing or edema. NEUROLOGIC: Generalized weakness. Unable to assess Vent Setting Ventilator Support Mode: AC Fraction of Inspired Oxygen pe: 40 Positive End Expiratory Pressu: 5.0 Results/Medications Result Diagram: 04/26/19 0516 04/26/19 0516 Results 24 hrs Laboratory Tests Test 04/25/19 17:05 04/25/19 21:07 04/25/19 23:42 04/26/19 03:59 Bedside Glucose 311 H 299 H 269 H 287 H Test 04/26/19 05:16 04/26/19 08:44 04/26/19 12:06 White Blood Count 23.4 #H Red Blood Count 3.82 L Hemoglobin 11.1 L Hematocrit 36.7 L Mean Corpuscular 96.1 Volume Mean Corpuscular 29.1 Hemoglobin Mean Corpuscular 30.2 L Hemoglobin Concent Red Cell 19.3 H Distribution Width Platelet Count 575 #H Mean Platelet Volume 10.4 Immature 0.700 H Granulocytes % Neutrophils % 86.7 H Lymphocytes % 5.7 L Monocytes % 5.2 Eosinophils % 1.1 Basophils % 0.6 Nucleated Red Blood 0.0 Cells % Immature 0.170 H Granulocytes # Neutrophils # 20.3 H Lymphocytes # 1.3 Monocytes # 1.2 H Eosinophils # 0.3 Basophils # 0.2 H Nucleated Red Blood 0.0 Cells # Sodium Level 145 H Potassium Level 4.3 Chloride Level 101 Carbon Dioxide Level 28 Anion Gap 16 H Blood Urea Nitrogen 38 H Creatinine 7.15 H Est Glomerular 8 L Filtrat Rate mL/min Glucose Level 310 H Calcium Level 11.3 H Bedside Glucose 238 H 198 Medications Current Medications IV Flush (NS 3 ml) 3 ml PER PROTOCOL IV ; Start 03/29/19 at 13:30 Ondansetron HCl (Zofran Inj) 4 mg Q6H PRN IV NAUSEA/VOMITING Last administered on 04/07/19at 18:53; Admin Dose 4 MG; Start 03/29/19 at 13:30 Acetaminophen (Tylenol Tab) 650 mg Q6H PRN PO .PAIN 1-3 OR TEMP Last adm inistered on 03/31/19at 05:48; Admin Dose 650 MG; Start 03/29/19 at 13:30 Hydralazine HCl (Apresoline) 10 mg Q4H PRN IV sbp >185 Last administered on 04/18/19at 14:27; Admin Dose 10 MG; Start 03/29/19 at 14:00 Miscellaneous Information 1 ea NOTE XX ; Start 03/29/19 at 14:30 Glucose (Glutose) 15 gm Q15M PRN PO DECREASED GLUCOSE; Start 03/29/19 at 14:30 Glucose (Glutose) 22.5 gm Q15M PRN PO DECREASED GLUCOSE; Start 03/29/19 at 14:30 Dextrose (D50w Syringe) 25 ml Q15M PRN IV DECREASED GLUCOSE Last administered on 04/13/19 05:56; Admin Dose 25 ML; Start 03/29/19 at 14:30; Status Hold Dextrose (D50w Syringe) 50 ml Q15M PRN IV DECREASED GLUCOSE; Start 03/29/19 at 14:30 Glucagon (Glucagen) 1 mg Q15M PRN IM DECREASED GLUCOSE; Start 03/29/19 at 14:30 Glucose (Glutose) 15 gm Q15M PRN BUCCAL DECREASED GLUCOSE; Start 03/29/19 at 14:30 Albumin Human 100 ml @ 100 mls/hr WITH DIALYSIS PRN IV SBP <90 DURING DIALYSIS Last administered on 04/26/19 08:36; Admin Dose 100 MLS/HR; Start 03/29/19 at 17:00 Albuterol/ Ipratropium (Duoneb) 3 ml Q2H RESP THERAPY PRN HHN WHEEZING AND RESP DISTRESS Last administered on 04/09/19 08:52; Admin Dose 3 ML; Start 03/29/19 at 18:00 Lorazepam (Ativan) 0.5 mg Q4H PRN IV AGITATION Last administered on 04/16/19 15:45; Admin Dose 0.5 MG; Start 03/29/19 at 18:00 IV Flush (NS 10 ml) 10 ml Q8 PRN IV IV PROTOCOL; Start 03/29/19 at 18:00 Labetalol HCl (Labetalol) 10 mg Q4H PRN IV sbp >160 Last administered on 04/20/19 21:32; Admin Dose 10 MG; Start 03/30/19 at 09:00 Haloperidol (Haldol) 5 mg Q6H PRN IM agitation Last administered on 03/31/19 00:10; Admin Dose 5 MG; Start 03/30/19 at 10:00 Heparin Sodium (Porcine) (Heparin (1000 Units/ml)) 3,200 unit AFTER DIALYSIS CATHETER Last administered on 04/26/19 11:56; Admin Dose 3,200 UNIT; Start 03/30/19 at 17:00 Atorvastatin Calcium (Lipitor) 40 mg HS NGT Last administered on 04/25/19 21:11; Admin Dose 40 MG; Start 03/31/19 at 21:00 Baclofen (Lioresal) 10 mg BID GTB Last administered on 04/25/19 21:12; Admin Dose 10 MG; Start 03/31/19 at 21:00 Doxazosin Mesylate (Cardura) 2 mg DAILY NGT Last administered on 04/22/19 14:17; Admin Dose 2 MG; Start 03/31/19 at 14:30 Gabapentin (Neurontin) 100 mg QHS PO Last administered on 04/25/19 21:11; Admin Dose 100 MG; Start 03/31/19 at 21:00 Acetaminophen (Tylenol Liquid) 650 mg Q4H PRN PEG MILD PAIN(1-3)OR ELEVATED TEMP Last administered on 04/16/19 08:42; Admin Dose 650 MG; Start 03/31/19 at 16:00 Lactobacillus Acidophilus/ Rhamnosus (Culturelle) 1 cap TID GTB Last administered on 04/25/19 21:11; Admin Dose 1 CAP; Start 04/02/19 at 13:00 Epoetin [place]-epbx (Retacrit (Esrd)) 10,000 unit MoWeFr@1700 SC Last administered on 04/24/19 18:07; Admin Dose 10,000 UNIT; Start 04/03/19 at 19:30 Lansoprazole (Prevacid) 30 mg BID@0600,1800 GTB Last administered on 04/25/19 17:10; Admin Dose 30 MG; Start 04/04/19 at 18:00 Multivit/Ca Carb/ B Cmplx/FA/Prenat (Karena-Geovanni) 1 tab DAILY GTB Last administered on 04/25/19 10:32; Admin Dose 1 TAB; Start 04/04/19 at 11:30 Aspirin (Aspirin) 81 mg DAILY PO Last administered on 04/25/19 10:32; Admin Dose 81 MG; Start 04/05/19 at 09:00 Fentanyl 100 ml @ 2.5 mls/hr TITRATE IV Last administered on 04/21/19 02:38; Admin Dose 4 MLS/HR; Start 04/08/19 at 00:00 Midazolam HCl 50 ml @ 1 mls/hr TITRATE PRN IV agitation Last administered on 04/26/19 10:31; Admin Dose 3 MLS/HR; Start 04/08/19 at 00:00 Norepinephrine 250 ml @ 1.875 mls/ hr TITRATE IV Last administered on 04/25/19 06:02; Admin Dose 9.375 MLS/HR; Start 04/08/19 at 00:00 Mupirocin (Bactroban) 1 applic BID TOP Last administered on 04/26/19 09:01; Admin Dose 1 APPLIC; Start 04/09/19 at 21:00 Budesonide (Pulmicort (Neb)) 0.5 mg BID RESP THERAPY HHN Last administered on 04/26/19 09:53; Admin Dose 0.5 MG; Start 04/12/19 at 09:00 Insulin Aspart (Novolog Insulin Pen) NOVOLOG *MILD* ALGORI... Q4 SC Last administered on 04/26/19 12:13; Admin Dose 2 UNIT; Start 04/13/19 at 09:00 Clopidogrel Bisulfate (plaVIX) 75 mg DAILY GTB Last administered on 04/25/19 10:32; Admin Dose 75 MG; Start 04/16/19 at 09:00 Quetiapine Fumarate (Seroquel) 50 mg QHS GTB Last administered on 04/25/19 21:11; Admin Dose 50 MG; Start 04/16/19 at 21:00 Losartan Potassium (Cozaar) 25 mg DAILY PO Last administered on 04/23/19 09:19; Admin Dose 25 MG; Start 04/17/19 at 09:00 Alteplase, Recombinant (Cathflo (Activase)) 2 mg MAY REPEAT X1 PRN CATHETER IF CATHETER REMAINS OCCULUDED Last administered on 04/17/19 11:21; Admin Dose 2 MG; Start 04/17/19 at 09:30 Albuterol (Ventolin Hfa) 4 puff Q6H RESP THERAPY INH Last administered on 04/26/19 13:00; Admin Dose 4 PUFF; Start 04/18/19 at 02:00 Ipratropium [place] (Atrovent Hfa) 4 puff Q6H RESP THERAPY INH Last administered on 04/26/19 13:00; Admin Dose 4 PUFF; Start 04/18/19 at 02:00 Docusate Sodium (Colace Liquid Cup) 100 mg BID PEG Last administered on 04/25/19 21:11; Admin Dose 100 MG; Start 04/20/19 at 23:00 Polyethylene Glycol (Miralax) 17 gm DAILY PEG Last administered on 04/25/19 10:31; Admin Dose 17 GM; Start 04/21/19 at 09:00 Nitroglycerin/ Dextrose 250 ml @ 1.5 mls/hr TITRATE IV Last administered on 04/21/19 00:24; Admin Dose 1.5 MLS/HR; Start 04/21/19 at 00:30 Miscellaneous Information (Pending Santyl Order For Wound Care) This patient mcneal... PRN PRN XX WOUND CARE; Start 04/21/19 at 18:00 Carvedilol (Coreg) 3.125 mg QID NGT Last administered on 04/24/19at 20:27; Admin Dose 3.125 MG; Start 04/23/19 at 09:00 Metoclopramide HCl (Reglan) 5 mg Q6 IV Last administered on 04/26/19at 12:02; Admin Dose 5 MG; Start 04/24/19 at 12:00 Insulin Glargine (Lantus) 17 units DAILY@0800 SC Last administered on 04/26/19at 09:08; Admin Dose 17 UNITS; Start 04/26/19 at 08:00 Vancomycin HCl (Vanco Iv Per Pharmacy) VANCOMYCIN PER PHARMACY PER PROTOCOL XX ; Start 04/26/19 at 13:00; Status UNV Meropenem/Sodium Chloride 50 ml @ 100 mls/hr Q12 IVPB ; Start 04/26/19 at 13:00; Status UNV Assessment/Plan Hospital Course (Demo Recall) iMP: 1. Respiratory Failure/Ventilator Dependence 2. Status post septic Shock 3. Chronic renal insufficiency on hemodialysis 4. Anemia likely of chronic disease 5. Encephalopathy toxic metabolic RECS: 1. Ventilator support--patient is unable to be liberated from mechanical ventilation secondary to his encephalopathy. ET tube leak noted however patient receiving adequate tidal volumes and is scheduled for tracheostomy soon we will therefore hold off on tube exchange. 3. HD/UD. 4. Anti-seizure medications. 5. Continue tube feeding as tolerated Tracheostomy scheduled for today Critical care time 40 minutes. Elliott evaluation SAMMI MOSES MD, [facility] Apr 26, 2019 13:22
[2019-04-26] MEDS: MEROPENEM 500MG/50 ML (PMX) 50 ML IVPB SCH ×2 (13:43→21:09)
--- NOTE | 2019-04-26 13:57 | PN ---
Date/Time of Note Date/Time of Note DATE: 04/26/19 TIME: 13:49 Assessment/Plan VTE Prophylaxis Risk score (from Nsg)>0 risk: 8 SCD applied (from Ns): Yes Pharmacological prophylaxis: heparin Lines/Catheters IV Catheter Type (from Nrs): perma cath Assessment/Plan Hospital Course 1. Acute hypoxic respiratory failure - patient remains intubated and too weak to clear his secretions making him a poor candidate for extubation -Family has agreed to tracheostomy placement, plan is for trach placement today - Pulmonology consultation appreciated and will continue vent at this time. - patient was extubated 04/17 and needed to be reintubated a few hours later due to desaturation and inability to clear his secretions 2. Acute encephalopathy secondary to acute left thalamic stroke with delirium - Neuro on board and appreciate consultation - Carotid US noted with stenosis <70%. Will continue plavix at this time given patient not stable for any type of intervention but will need to be assessed for CEA in the future -Trying to wean off sedation but patient continues to bite on ET tube and fight the vent, continue restraints -Neurology following, EEG demonstrates diffuse slowing 3. HCAP/Aspiration Pneumonia- resolving - CXR with no signs of PNA - Pulm on board and appreciate recommendations - ID on board for antibiotic management 4. History of CVA with residual left-sided deficit and more recent CVA - New left thalamic stroke appreciated on repeat MRI. - Neurology consultation appreciated -MRI shows old chronic lacunar infarcts bilaterally in the basal ganglia and thalamus as well as right frontal murguia radiata small vessel infarct 5. Anemia - stable - GI consultation appreciated and EGD revealed moderate distal esophagitis and gastritis and duodenitis. Colonoscopy showed internal hemorrhoids. Will need repeat colonoscopy in the future 6. End-stage renal disease on hemodialysis - Nephrology on board and appreciate consultation. Continue HD 7. Coronary artery disease status post CABG history - continue home medications -Holding Plavix and aspirin 8. Epilepsy - Continue Keppra - EEG noted with slowing 9. BPH Prophylaxis: Heparin Disposition -Family agreeable for tracheostomy placement, CT surgery aware and plan is for placement, possible Elliott placement after trach placed Result Diagram: 04/26/19 0516 04/26/19 0516 Results 24hrs Laboratory Tests Test 04/25/19 17:05 04/25/19 21:07 04/25/19 23:42 04/26/19 03:59 Bedside Glucose 311 H 299 H 269 H 287 H Test 04/26/19 05:16 04/26/19 08:44 04/26/19 12:06 White Blood Count 23.4 #H Red Blood Count 3.82 L Hemoglobin 11.1 L Hematocrit 36.7 L Mean Corpuscular 96.1 Volume Mean Corpuscular 29.1 Hemoglobin Mean Corpuscular 30.2 L Hemoglobin Concent Red Cell 19.3 H Distribution Width Platelet Count 575 #H Mean Platelet Volume 10.4 Immature 0.700 H Granulocytes % Neutrophils % 86.7 H Lymphocytes % 5.7 L Monocytes % 5.2 Eosinophils % 1.1 Basophils % 0.6 Nucleated Red Blood 0.0 Cells % Immature 0.170 H Granulocytes # Neutrophils # 20.3 H Lymphocytes # 1.3 Monocytes # 1.2 H Eosinophils # 0.3 Basophils # 0.2 H Nucleated Red Blood 0.0 Cells # Sodium Level 145 H Potassium Level 4.3 Chloride Level 101 Carbon Dioxide Level 28 Anion Gap 16 H Blood Urea Nitrogen 38 H Creatinine 7.15 H Est Glomerular 8 L Filtrat Rate mL/min Glucose Level 310 H Calcium Level 11.3 H Bedside Glucose 238 H 198 Subjective 24 Hr Interval Summary Subjective hx not possible: pt non-verbal Exam/Review of Systems Exam Vitals Vital Signs Date Temp Pulse Resp B/P (MAP) Pulse Ox O2 O2 Flow FiO2 Time Delivery Rate 04/26/19 110 20 100 40 12:55 04/26/19 97/68 (78) Mechanical 12:30 Ventilator 04/26/19 97.7 12:00 Intake and Output 04/25/19 04/25/19 04/26/19 1515:00 23:00 07:00 IntakeIntake Total 401.375 ml 239.125 ml 84.002 ml OutputOutput Total 0 ml 0 ml BalanceBalance 401.375 ml 239.125 ml 84.002 ml Constitutional: non-verbal Respiratory: clear to auscultation Cardiovascular: regular rate and rhythm Gastrointestinal: soft; No distended Musculoskeletal: nl extremities to inspection Results Results 24hrs Laboratory Tests Test 04/25/19 17:05 04/25/19 21:07 04/25/19 23:42 04/26/19 03:59 Bedside Glucose 311 H 299 H 269 H 287 H Test 04/26/19 05:16 04/26/19 08:44 04/26/19 12:06 White Blood Count 23.4 #H Red Blood Count 3.82 L Hemoglobin 11.1 L Hematocrit 36.7 L Mean Corpuscular 96.1 Volume Mean Corpuscular 29.1 Hemoglobin Mean Corpuscular 30.2 L Hemoglobin Concent Red Cell 19.3 H Distribution Width Platelet Count 575 #H Mean Platelet Volume 10.4 Immature 0.700 H Granulocytes % Neutrophils % 86.7 H Lymphocytes % 5.7 L Monocytes % 5.2 Eosinophils % 1.1 Basophils % 0.6 Nucleated Red Blood 0.0 Cells % Immature 0.170 H Granulocytes # Neutrophils # 20.3 H Lymphocytes # 1.3 Monocytes # 1.2 H Eosinophils # 0.3 Basophils # 0.2 H Nucleated Red Blood 0.0 Cells # Sodium Level 145 H Potassium Level 4.3 Chloride Level 101 Carbon Dioxide Level 28 Anion Gap 16 H Blood Urea Nitrogen 38 H Creatinine 7.15 H Est Glomerular 8 L Filtrat Rate mL/min Glucose Level 310 H Calcium Level 11.3 H Bedside Glucose 238 H 198 Medications Medication Current Medications IV Flush (NS 3 ml) 3 ml PER PROTOCOL IV ; Start 03/29/19 at 13:30 Ondansetron HCl (Zofran Inj) 4 mg Q6H PRN IV NAUSEA/VOMITING Last administered on 04/07/19at 18:53; Admin Dose 4 MG; Start 03/29/19 at 13:30 Acetaminophen (Tylenol Tab) 650 mg Q6H PRN PO .PAIN 1-3 OR TEMP Last administered on 03/31/19 05:48; Admin Dose 650 MG; Start 03/29/19 at 13:30 Hydralazine HCl (Apresoline) 10 mg Q4H PRN IV sbp >185 Last administered on 04/18/19 14:27; Admin Dose 10 MG; Start 03/29/19 at 14:00 Miscellaneous Information 1 ea NOTE XX ; Start 03/29/19 at 14:30 Glucose (Glutose) 15 gm Q15M PRN PO DECREASED GLUCOSE; Start 03/29/19 at 14:30 Glucose (Glutose) 22.5 gm Q15M PRN PO DECREASED GLUCOSE; Start 03/29/19 at 14:30 Dextrose (D50w Syringe) 25 ml Q15M PRN IV DECREASED GLUCOSE Last administered on 7/6/19at 05:56; Admin Dose 25 ML; Start 03/29/19 at 14:30; Status Hold Dextrose (D50w Syringe) 50 ml Q15M PRN IV DECREASED GLUCOSE; Start 03/29/19 at 14:30 Glucagon (Glucagen) 1 mg Q15M PRN IM DECREASED GLUCOSE; Start 03/29/19 at 14:30 Glucose (Glutose) 15 gm Q15M PRN BUCCAL DECREASED GLUCOSE; Start 03/29/19 at 14:30 Albumin Human 100 ml @ 100 mls/hr WITH DIALYSIS PRN IV SBP <90 DURING DIALYSIS Last administered on 04/26/19 08:36; Admin Dose 100 MLS/HR; Start 03/29/19 at 17:00 Albuterol/ Ipratropium (Duoneb) 3 ml Q2H RESP THERAPY PRN HHN WHEEZING AND RESP DISTRESS Last administered on 04/09/19 08:52; Admin Dose 3 ML; Start 03/29/19 at 18:00 Lorazepam (Ativan) 0.5 mg Q4H PRN IV AGITATION Last administered on 04/16/19 15:45; Admin Dose 0.5 MG; Start 03/29/19 at 18:00 IV Flush (NS 10 ml) 10 ml Q8 PRN IV IV PROTOCOL; Start 03/29/19 at 18:00 Labetalol HCl (Labetalol) 10 mg Q4H PRN IV sbp >160 Last administered on 04/20/19 21:32; Admin Dose 10 MG; Start 03/30/19 at 09:00 Haloperidol (Haldol) 5 mg Q6H PRN IM agitation Last administered on 03/31/19 00:10; Admin Dose 5 MG; Start 03/30/19 at 10:00 Heparin Sodium (Porcine) (Heparin (1000 Units/ml)) 3,200 unit AFTER DIALYSIS CATHETER Last administered on 04/26/19 11:56; Admin Dose 3,200 UNIT; Start 03/30/19 at 17:00 Atorvastatin Calcium (Lipitor) 40 mg HS NGT Last administered on 04/25/19 21: 11; Admin Dose 40 MG; Start 03/31/19 at 21:00 Baclofen (Lioresal) 10 mg BID GTB Last administered on 04/25/19 21:12; Admin Dose 10 MG; Start 03/31/19 at 21:00 Doxazosin Mesylate (Cardura) 2 mg DAILY NGT Last administered on 04/22/19 14:17; Admin Dose 2 MG; Start 03/31/19 at 14:30 Gabapentin (Neurontin) 100 mg QHS PO Last administered on 04/25/19 21:11; Admin Dose 100 MG; Start 03/31/19 at 21:00 Acetaminophen (Tylenol Liquid) 650 mg Q4H PRN PEG MILD PAIN(1-3)OR ELEVATED TEMP Last administered on 04/16/19 08:42; Admin Dose 650 MG; Start 03/31/19 at 16:00 Lactobacillus Acidophilus/ Rhamnosus (Culturelle) 1 cap TID GTB Last administered on 04/25/19 21:11; Admin Dose 1 CAP; Start 04/02/19 at 13:00 Epoetin [place]-epbx (Retacrit (Esrd)) 10,000 unit MoWeFr@1700 SC Last administered on 04/24/19 18:07; Admin Dose 10,000 UNIT; Start 04/03/19 at 19:30 Lansoprazole (Prevacid) 30 mg BID@0600,1800 GTB Last administered on 04/25/19 17:10; Admin Dose 30 MG; Start 04/04/19 at 18:00 Multivit/Ca Carb/ B Cmplx/FA/Prenat (Karena-Geovanni) 1 tab DAILY GTB Last administered on 04/25/19 10:32; Admin Dose 1 TAB; Start 04/04/19 at 11:30 Aspirin (Aspirin) 81 mg DAILY PO Last administered on 04/25/19 10:32; Admin Dose 81 MG; Start 04/05/19 at 09:00 Fentanyl 100 ml @ 2.5 mls/hr TITRATE IV Last administered on 04/21/19 02:38; Admin Dose 4 MLS/HR; Start 04/08/19 at 00:00 Midazolam HCl 50 ml @ 1 mls/hr TITRATE PRN IV agitation Last administered on 04/26/19 10:31; Admin Dose 3 MLS/HR; Start 04/08/19 at 00:00 Norepinephrine 250 ml @ 1.875 mls/ hr TITRATE IV Last administered on 04/25/19 06:02; Admin Dose 9.375 MLS/HR; Start 04/08/19 at 00:00 Mupirocin (Bactroban) 1 applic BID TOP Last administered on 04/26/19 09:01; Admin Dose 1 APPLIC; Start 04/09/19 at 21:00 Budesonide (Pulmicort (Neb)) 0.5 mg BID RESP THERAPY HHN Last administered on 04/26/19 09:53; Admin Dose 0.5 MG; Start 04/12/19 at 09:00 Insulin Aspart (Novolog Insulin Pen) NOVOLOG *MILD* ALGORI... Q4 SC Last administered on 04/26/19 12:13; Admin Dose 2 UNIT; Start 04/13/19 at 09:00 Clopidogrel Bisulfate (plaVIX) 75 mg DAILY GTB Last administered on 04/25/19 10:32; Admin Dose 75 MG; Start 04/16/19 at 09:00 Quetiapine Fumarate (Seroquel) 50 mg QHS GTB Last administered on 04/25/19 21:11; Admin Dose 50 MG; Start 04/16/19 at 21:00 Losartan Potassium (Cozaar) 25 mg DAILY PO Last administered on 04/23/19 09:19; Admin Dose 25 MG; Start 04/17/19 at 09:00 Alteplase, Recombinant (Cathflo (Activase)) 2 mg MAY REPEAT X1 PRN CATHETER IF CATHETER REMAINS OCCULUDED Last administered on 04/17/19 11:21; Admin Dose 2 MG; Start 04/17/19 at 09:30 Albuterol (Ventolin Hfa) 4 puff Q6H RESP THERAPY INH Last administered on 04/26 13:00; Admin Dose 4 PUFF; Start 04/18/19 at 02:00 Ipratropium [place] (Atrovent Hfa) 4 puff Q6H RESP THERAPY INH Last administered on 04/26/19 13:00; Admin Dose 4 PUFF; Start 04/18/19 at 02:00 Docusate Sodium (Colace Liquid Cup) 100 mg BID PEG Last administered on 04/25/19 21:11; Admin Dose 100 MG; Start 04/20/19 at 23:00 Polyethylene Glycol (Miralax) 17 gm DAILY PEG Last administered on 04/25/19 10:31; Admin Dose 17 GM; Start 04/21/19 at 09:00 Nitroglycerin/ Dextrose 250 ml @ 1.5 mls/hr TITRATE IV Last administered on 04/21/19at 00:24; Admin Dose 1.5 MLS/HR; Start 04/21/19 at 00:30 Miscellaneous Information (Pending Santyl Order For Wound Care) This patient mcneal... PRN PRN XX WOUND CARE; Start 04/21/19 at 18:00 Carvedilol (Coreg) 3.125 mg QID NGT Last administered on 04/24/19at 20:27; Admin Dose 3.125 MG; Start 04/23/19 at 09:00 Metoclopramide HCl (Reglan) 5 mg Q6 IV Last administered on 04/26/19at 12:02; Admin Dose 5 MG; Start 04/24/19 at 12:00 Insulin Glargine (Lantus) 17 units DAILY@0800 SC Last administered on 04/26/19at 09:08; Admin Dose 17 UNITS; Start 04/26/19 at 08:00 Vancomycin HCl (Vanco Iv Per Pharmacy) VANCOMYCIN PER PHARMACY PER PROTOCOL XX ; Start 04/26/19 at 13:00 Meropenem/Sodium Chloride 50 ml @ 100 mls/hr Q12 IVPB Last administered on 04/26/19at 13:43; Admin Dose 100 MLS/HR; Start 04/26/19 at 13:00 Vancomycin/Sodium Chloride 250 ml @ 83.333 mls/ hr NOW IVPB ; Start 04/26/19 at 14:00; Stop 04/26/19 at 20:00 ZHANG YOUNG Apr 26, 2019 13:57
[2019-04-26] MEDS ORDERED: MIDAZOLAM 1 MG/ML 2 ML INJ ONE (14:00)
[2019-04-26] MEDS ORDERED: PHENYLephrine (100 MCG/ML) 10ML SYG ONE (14:00)
[2019-04-26] MEDS ORDERED: ETOMIDATE 20 MG INJ ONE (14:00)
[2019-04-26] MEDS ORDERED: VANCOMYCIN 1.5 GM/NS 250 ML 250 ML IVPB SCH (14:00)
[2019-04-26] MEDS ORDERED: FENTAnyl 50 MCG/ML VIAL ONE (14:01)
[2019-04-26] MEDS ORDERED: CEFAZOLIN 1 GM INJ ONE (14:02)
--- NOTE | 2019-04-26 14:18 | PREAC ---
Date/Time of Note Date/Time of Note DATE: 04/26/19 TIME: 14:16 Anesthesia Eval and Record Evaluation Time Pre-Procedure Interview DATE: 04/26/19 TIME: 14:16 Age 58 Sex male NPO: 8 hrs Preoperative diagnosis respiratory failure Planned procedure trach Past Medical History Past Medical History: Includes Cardio: CAD, CABG Endo: Diabetes Neuro: CVA, Seizure disorder Renal: ESRD on dialysis Heme: Anemia Surgery & Anesthesia Issues No known issue Meds Anticoagulation: No Beta Kailyn within 24 hr: No Reason Beta Kailyn not given: Pt. not on B-Kailyn Reported Medications Bisacodyl (Dulcolax) 10 Mg Supp.rect, 10 MG RC DAILY PRN for CONSTIPATION, SUPP.RECT 03/29/19 Sodium Phosphate,[place]-Dibasic (Enema Ready To Use) 133 Ml Enema, 133 ML RC EVERY 2 DAYS PRN for CONSTIPATION, ENEMA 03/29/19 Acetaminophen* (Acetaminophen*) 650 Mg Tablet, 650 MG GTB Q4 PRN for MILD PAIN LEVEL 1-3, #30 TAB AND FEVER 03/29/19 Acetaminophen* (Acetaminophen*) 500 MG Extra Strength Tablet, 1000 MG GTB Q4H PRN for MODERATE PAIN LEVEL 4-6, TAB 03/29/19 Acetaminophen* (Acetaminophen*) 500 MG Extra Strength Tablet, 1000 MG GTB BID PRN for GENERAL BODY PAIN, TAB 03/29/19 Amino Acids/Protein Hydrolys (Pro-Stat Awc Liquid) 30 Ml Liquid, 30 ML GTB DAILY SUGAR FREE 03/29/19 Multivitamin* (Daily Value*) 1 Each Tablet, 1 TAB GTB DAILY, TAB 03/29/19 Ascorbic Acid* (Vitamin C*) 500 Mg Capsule.sa, 500 MG GTB DAILY, CAP 03/29/19 Ferrous Sulfate (Ferrous Sulfate) 300 Mg/5 Ml Liquid, 325 MG GTB DAILY 03/29/19 Cran/Vitc/Mannose/Inulin/Brom (Uti-Stat Liquid) 3,875 Mg/30 Ml Liquid, 3875 MG GTB DAILY 03/29/19 Cranberry Extract (Cranberry) 425 Mg Capsule, 425 MG GTB DAILY, CAP 03/29/19 Insulin Glulisine (Apidra Solostar) 100 Unit/1 Ml Insuln.pen, 4 UNIT SQ TIDM A, #1 TUB 03/29/19 Insulin Glargine,Hum.rec.anlog (Basaglar Kwikpen U-100) 100 Unit/1 Ml Insuln.pen, 25 UNIT SC QHS, EA 03/29/19 Insulin Regular, Human (Humulin R) 100 Unit/1 Ml Vial, 0 IJ AC MEALS AND BEDTIME, VIAL 0-150 = 0 UNIT 151-200 = 1 UNIT 201-250 = 2 UNITS 251-300 = 3 UNITS 301-350 = 4 UNITS 351-400 = 5 UNITS OVER 400 GIVE 6 UNITS UNDER 70 OR OVER 400 NOTIFY 03/29/19 Sertraline Hcl* (Sertraline Hcl*) 25 Mg Tablet, 25 MG GTB DAILY, #30 TAB 03/29/19 Lorazepam* (Ativan*) 0.5 Mg Tablet, 0.5 MG GTB DAILY PRN for ANXIETY, #30 TAB 03/29/19 Quetiapine Fumarate* (Seroquel*) 25 Mg Tablet, 25 MG GTB HS, #30 TAB 03/29/19 Lorazepam* (Lorazepam*) 0.5 Mg Tablet, 0.5 MG GTB DAILY PRN for ANXIETY, TAB 03/29/19 Clonidine Hcl* (Clonidine Hcl*) 0.1 Mg Tab, 0.1 MG GTB DAILY PRN for ELEVATED BLOOD PRESSURE, TAB SBP >160 03/29/19 Azelastine Hcl* (Azelastine Hcl*) 137 Mcg/0.137 Ml [place].pump, 2 SPRAYS NASAL BID, #1 EA TO EACH NOSTRIL 03/29/19 Carvedilol* (Carvedilol*) 12.5 Mg Tablet, 12.5 MG GTB BID, #60 TAB 03/29/19 Diltiazem Hcl* (Cardizem CD*) 240 Mg Cap.sr.24h, 240 MG GTB DAILY, #30 CAP 03/29/19 Ergocalciferol (Vitamin D2) (VITAMIN D2) 50,000 Unit Capsule, 93187 UNIT GTB EVERY MONDAY, CAP 03/29/19 Hydralazine Hcl* (Hydralazine Hcl*) 50 Mg Tab, 50 MG GTB TID PRN for ELEVATED BLOOD PRESSURE, #60 TAB 03/29/19 Losartan Potassium* (Losartan Potassium*) 100 Mg Tablet, 100 MG GTB DAILY, TAB 03/29/19 Metoprolol Succinate* (Toprol XL*) 25 Mg Tab.sr.24h, 25 MG GTB DAILY, #30 TAB 03/29/19 Linagliptin (TRADJENTA) 5 Mg Tablet, 5 MG GTB DAILY, TAB 03/29/19 Albuterol Sulfate* (Proair HFA*) 8.5 Gm Hfa.aer.ad, 2 PUFF INH Q4H PRN for WHEEZING AND SOB, #1 INHALER 03/29/19 Ranitidine Hcl* (Ranitidine Hcl*) 300 Mg Tablet, 300 MG GTB HS, #30 TAB 03/29/19 Levetiracetam* (Keppra*) 500 Mg Tablet, 500 MG GTB BID, TAB 03/29/19 Gabapentin* (Gabapentin*) 100 Mg Capsule, 100 MG GTB QHS, #90 CAP 03/29/19 Doxazosin Mesylate* (Doxazosin Mesylate*) 2 Mg Tablet, 2 MG GTB HS, TAB 03/29/19 Docusate Sodium* (Dok*) 100 Mg Tablet, 100 MG GTB BID, #60 CAP 03/29/19 Cyanocobalamin (Vitamin B-12) (Cyanocobalamin Injection) 1,000 Mcg/1 Ml Vial, 1000 MCG IJ EVERY MONDAY, VIAL 03/29/19 Clopidogrel Bisulfate (Clopidogrel) 75 Mg Tablet, 75 MG GTB DAILY, #30 TAB 03/29/19 Calcium Carbonate ([place]-500) 500 Mg Tablet, 500 MG GTB DAILY, TAB 03/29/19 Baclofen* (Baclofen*) 10 Mg Tablet, 10 MG GTB BID, TAB 03/29/19 Atorvastatin* (Atorvastatin*) 40 Mg Tablet, 40 MG GTB QHS, #30 TAB 03/29/19 Aspirin (Low Dose Aspirin) 81 Mg Tablet.dr, 81 MG GTB DAILY, #30 TAB 03/29/19 Current Medications IV Flush (NS 3 ml) 3 ml PER PROTOCOL IV ; Start 03/29/19 at 13:30 Ondansetron HCl (Zofran Inj) 4 mg Q6H PRN IV NAUSEA/VOMITING Last administered on 04/07/19at 18:53; Admin Dose 4 MG; Start 03/29/19 at 13:30 Acetaminophen (Tylenol Tab) 650 mg Q6H PRN PO .PAIN 1-3 OR TEMP Last administered on 03/31/19 05:48; Admin Dose 650 MG; Start 03/29/19 at 13:30 Hydralazine HCl (Apresoline) 10 mg Q4H PRN IV sbp >185 Last administered on 04/18/19 14:27; Admin Dose 10 MG; Start 03/29/19 at 14:00 Miscellaneous Information 1 ea NOTE XX ; Start 03/29/19 at 14:30 Glucose (Glutose) 15 gm Q15M PRN PO DECREASED GLUCOSE; Start 03/29/19 at 14:30 Glucose (Glutose) 22.5 gm Q15M PRN PO DECREASED GLUCOSE; Start 03/29/19 at 14:30 Dextrose (D50w Syringe) 25 ml Q15M PRN IV DECREASED GLUCOSE Last administered on 04/13/19 05:56; Admin Dose 25 ML; Start 03/29/19 at 14:30; Status Hold Dextrose (D50w Syringe) 50 ml Q15M PRN IV DECREASED GLUCOSE; Start 03/29/19 at 14:30 Glucagon (Glucagen) 1 mg Q15M PRN IM DECREASED GLUCOSE; Start 03/29/19 at 14:30 Glucose (Glutose) 15 gm Q15M PRN BUCCAL DECREASED GLUCOSE; Start 03/29/19 at 14:30 Albumin Human 100 ml @ 100 mls/hr WITH DIALYSIS PRN IV SBP <90 DURING DIALYSIS Last administered on 04/26/19 08:36; Admin Dose 100 MLS/HR; Start 03/29/19 at 17:00 Albuterol/ Ipratropium (Duoneb) 3 ml Q2H RESP THERAPY PRN HHN WHEEZING AND RESP DISTRESS Last administered on 04/09/19 08:52; Admin Dose 3 ML; Start 03/29/19 at 18:00 Lorazepam (Ativan) 0.5 mg Q4H PRN IV AGITATION Last administered on 04/16/19 15:45; Admin Dose 0.5 MG; Start 03/29/19 at 18:00 IV Flush (NS 10 ml) 10 ml Q8 PRN IV IV PROTOCOL; Start 03/29/19 at 18:00 Labetalol HCl (Labetalol) 10 mg Q4H PRN IV sbp >160 Last administered on 04/20/19 21:32; Admin Dose 10 MG; Start 03/30/19 at 09:00 Haloperidol (Haldol) 5 mg Q6H PRN IM agitation Last administered on 03/31/19 00:10; Admin Dose 5 MG; Start 03/30/19 at 10:00 Heparin Sodium (Porcine) (Heparin (1000 Units/ml)) 3,200 unit AFTER DIALYSIS CATHETER Last administered on 04/26/19 11:56; Admin Dose 3,200 UNIT; Start 03/30/19 at 17:00 Atorvastatin Calcium (Lipitor) 40 mg HS NGT Last administered on 04/25/19 21:11; Admin Dose 40 MG; Start 03/31/19 at 21:00 Baclofen (Lioresal) 10 mg BID GTB Last administered on 04/25/19 21:12; Admin Dose 10 MG; Start 03/31/19 at 21:00 Doxazosin Mesylate (Cardura) 2 mg DAILY NGT Last administered on 04/22/19 14:17; Admin Dose 2 MG; Start 03/31/19 at 14:30 Gabapentin (Neurontin) 100 mg QHS PO Last administered on 04/25/19 21:11; Admin Dose 100 MG; Start 03/31/19 at 21:00 Acetaminophen (Tylenol Liquid) 650 mg Q4H PRN PEG MILD PAIN(1-3)OR ELEVATED TEMP Last administered on 04/16/19 08:42; Admin Dose 650 MG; Start 03/31/19 at 16:00 Lactobacillus Acidophilus/ Rhamnosus (Culturelle) 1 cap TID GTB Last administered on 04/25/19 21:11; Admin Dose 1 CAP; Start 04/02/19 at 13:00 Epoetin [place]-epbx (Retacrit (Esrd)) 10,000 unit MoWeFr@1700 SC Last administered on 04/24/19 18:07; Admin Dose 10,000 UNIT; Start 04/03/19 at 19:30 Lansoprazole (Prevacid) 30 mg BID@0600,1800 GTB Last administered on 04/25/19 17:10; Admin Dose 30 MG; Start 04/04/19 at 18:00 Multivit/Ca Carb/ B Cmplx/FA/Prenat ([place]-Geovanni) 1 tab DAILY GTB Last administered on 04/25/19 10:32; Admin Dose 1 TAB; Start 04/04/19 at 11:30 Aspirin (Aspirin) 81 mg DAILY PO Last administered on 04/25/19 10:32; Admin Dose 81 MG; Start 04/05/19 at 09:00 Fentanyl 100 ml @ 2.5 mls/hr TITRATE IV Last administered on 04/21/19 02:38; Admin Dose 4 MLS/HR; Start 04/08/19 at 00:00 Midazolam HCl 50 ml @ 1 mls/hr TITRATE PRN IV agitation Last administered on 04/26/19 10:31; Admin Dose 3 MLS/HR; Start 04/08/19 at 00:00 Norepinephrine 250 ml @ 1.875 mls/ hr TITRATE IV Last administered on 04/25/19 06:02; Admin Dose 9.375 MLS/HR; Start 04/08/19 at 00:00 Mupirocin (Bactroban) 1 applic BID TOP Last administered on 04/26/19 09:01; Admin Dose 1 APPLIC; Start 04/09/19 at 21:00 Budesonide (Pulmicort (Neb)) 0.5 mg BID RESP THERAPY HHN Last administered on 04/26/19 09:53; Admin Dose 0.5 MG; Start 04/12/19 at 09:00 Insulin Aspart (Novolog Insulin Pen) NOVOLOG *MILD* ALGORI... Q4 SC Last administered on 04/26/19 12:13; Admin Dose 2 UNIT; Start 04/13/19 at 09:00 Clopidogrel Bisulfate (plaVIX) 75 mg DAILY GTB Last administered on 04/25/19 10:32; Admin Dose 75 MG; Start 04/16/19 at 09:00 Quetiapine Fumarate (Seroquel) 50 mg QHS GTB Last administered on 04/25/19 21:11; Admin Dose 50 MG; Start 04/16/19 at 21:00 Losartan Potassium (Cozaar) 25 mg DAILY PO Last administered on 04/23/19 09:19; Admin Dose 25 MG; Start 04/17/19 at 09:00 Alteplase, Recombinant (Cathflo (Activase)) 2 mg MAY REPEAT X1 PRN CATHETER IF CATHETER REMAINS OCCULUDED Last administered on 04/17/19 11:21; Admin Dose 2 MG; Start 04/17/19 at 09:30 Albuterol (Ventolin Hfa) 4 puff Q6H RESP THERAPY INH Last administered on 04/26/19 13:00; Admin Dose 4 PUFF; Start 04/18/19 at 02:00 Ipratropium [place] (Atrovent Hfa) 4 puff Q6H RESP THERAPY INH Last administ ered on 04/26/19 13:00; Admin Dose 4 PUFF; Start 04/18/19 at 02:00 Docusate Sodium (Colace Liquid Cup) 100 mg BID PEG Last administered on 04/25/19 21:11; Admin Dose 100 MG; Start 04/20/19 at 23:00 Polyethylene Glycol (Miralax) 17 gm DAILY PEG Last administered on 04/25/19 10:31; Admin Dose 17 GM; Start 04/21/19 at 09:00 Nitroglycerin/ Dextrose 250 ml @ 1.5 mls/hr TITRATE IV Last administered on 04/21/19 00:24; Admin Dose 1.5 MLS/HR; Start 04/21/19 at 00:30 Miscellaneous Information (Pending [facility] Order For Wound Care) This patient mcneal... PRN PRN XX WOUND CARE; Start 04/21/19 at 18:00 Carvedilol (Coreg) 3.125 mg QID NGT Last administered on 04/24/19at 20:27; Admin Dose 3.125 MG; Start 04/23/19 at 09:00 Metoclopramide HCl (Reglan) 5 mg Q6 IV Last administered on 04/26/19at 12:02; A dmin Dose 5 MG; Start 04/24/19 at 12:00 Vancomycin HCl (Vanco Iv Per Pharmacy) VANCOMYCIN PER PHARMACY PER PROTOCOL XX ; Start 04/26/19 at 13:00 Meropenem/Sodium Chloride 50 ml @ 100 mls/hr Q12 IVPB Last administered on 04/26/19at 13:43; Admin Dose 100 MLS/HR; Start 04/26/19 at 13:00 Vancomycin/Sodium Chloride 250 ml @ 83.333 mls/ hr NOW IVPB ; Start 04/26/19 at 14:00; Stop 04/26/19 at 20:00 Insulin Glargine (Lantus) 20 units DAILY@0800 SC ; Start 04/27/19 at 08:00 Meds reviewed: Yes Allergies Coded Allergies: No Known Drug Allergies (Unverified Allergy, Unknown, 05/31/18) Allergies Reviewed: Yes Labs/Studies Labs Reviewed: Reviewed by anesthesiologist Result Diagram: 04/26/19 0516 04/26/19 0516 Laboratory Tests 04/26/19 05:16 test: N/A Pre-procedure Exam Last vitals Vital Signs Date Temp Pulse Resp B/P (MAP) Pulse Ox O2 O2 Flow FiO2 Time Delivery Rate 04/26/19 113 13 98/73 (81) 93 Mechanical 14:00 Ventilator 04/26/19 40 12:55 04/26/19 97.7 12:00 Airway: Adequate mouth opening, Adequate thyromental dist Mallampati: Mallampati IV Teeth: Normal Lung: Normal Heart: Normal ASA Physical Status ASA physical status: 5 Emergency: None Pre-operative Attestations Prior to commencing anesthesia and surgery, the patient was re-evaluated, there was verification of: *The patient's identity *The results of appropriate recent lab work and preoperative vital signs *The above evaluation not changing prior to induction *Anesthetic plan, risk benefits, alternative and complications discussed with patient/family; questions answered; patient/family understands, accepts and wishes to proceed. GALA GARCIA DO Apr 26, 2019 14:17
--- NOTE | 2019-04-26 14:22 | PN ---
DATE: 04/26/2019 SUBJECTIVE: Patient is in hemodialysis, on 4 mcg of Levophed, in no distress. No fevers overnight. WBC went up to 23.4, platelets 575, neutrophils 86.7. MICROBIOLOGY: Blood cultures sent 2 days ago from dialysis catheter negative. ANTIMICROBIALS: The patient is off antibiotics. INDWELLINGS: Endotracheal tube, NG tube, Winters catheter, right subclavian Perm-A-Cath, and left uppe r extremity PICC line. PHYSICAL EXAMINATION: GENERAL: This is a chronically ill-appearing, middle-aged man who is lying comfortably in bed. HEENT: Head atraumatic, normocephalic. NECK: Supple. CHEST: Rise symmetrical. Breath sounds diminished to bases. HEART: S1, S2. ABDOMEN: Soft, bowel sounds hypoactive. EXTREMITIES: Without cyanosis. ASSESSMENT: 1. Shock, possibly recurrent septic. 2. Acute hypoxemic respiratory failure, patient failed multiple weaning trials. 3. Status post pneumonia, now with possibility of new ventilator-associated pneumonia. 4. Dysphagia. 5. End-stage renal disease. 6. Sinusitis and bilateral mastoiditis, status post 2 weeks of antibiotics. PLAN: We are going to restart patient on meropenem and vancomycin given worsening leukocytosis. Fol low chest x-ray in a.m. Continue present care as per primary team and consultants. Dictated By: UMA COLINDRES DIE MAKER APPRENTICE for RAMONE NIÑO/NTS Conf#: [id number] DID#: [id number]
[2019-04-26] MEDS: EPOETIN ALFA-EPBX (ESRD) 10,000 UNIT/ML VIAL SC SCH (17:00)
--- NOTE | 2019-04-26 19:06 | OPR ---
Date/Time of Note Date/Time of Note DATE: 04/26/19 TIME: 19:05 Operative Report Procedure Date: Apr 26, 2019 Preoperative Diagnosis Respiratory failure Postoperative Diagnosis Same Operation/Procedure Performed Tracheostomy Surgeon see signature line Plant Operations Vice President None Anesthesia Type: general Estimated Blood Loss: none Transfusion none Specimen None Grafts/Implants none Complications none Disposition: PACU, other Procedure Description Patient was placed in supine position prepped and draped in usual sterile fashion timeout was called I made a 1 cm incision 1 fingerbreadth superior to the sternal notch incision was taken down to subcutaneous tissue which was then opened using Metzenbaum scissors access was gained into the trachea guidewire was advanced without any difficulties subcutaneous tissues and the trachea were dilated using progressively larger dilators endotracheal tube was removed 8 cuffed tracheostomy tube advanced into the trachea secured to skin using four 2 nylon sutures with a protective foam padding and a trach tie patient tolerated procedure well NICOLA TERRY MD Apr 26, 2019 19:06
[2019-04-26] MEDS: NORepinephrine 8MG/250 ML (PMX 250 ML IV SCH (20:49)
[2019-04-26] MEDS: ATORVASTATIN 40 MG TAB NGT SCH (20:52)
[2019-04-26] MEDS: QUETIAPINE 25 MG TAB GTB SCH (20:52)
[2019-04-26] MEDS: GABAPENTIN 100 MG CAP PO SCH (20:53)
[2019-04-27] VITALS (104 sets, daily range): BP systolic 55–140; BP diastolic 42–96; PULSE 99–132; RESP 12–33
[2019-04-27] MEDS: METOCLOPRAMIDE 10 MG INJ IV SCH ×4 (00:24→17:38)
[2019-04-27] MEDS: INSULIN ASPART [NOVOLOG] 3 ML PEN SC SCH ×6 (00:30→20:58)
[2019-04-27] MEDS: IPRATROPIUM (HFA) 12.9 GM INHALER INH SCH ×4 (03:13→20:17)
[2019-04-27] MEDS: ALBUTEROL HFA 8 GM INHALER INH SCH ×4 (03:14→20:17)
[2019-04-27] MEDS: LANSOPRAZOLE 30 MG CAP GTB SCH ×2 (05:25→18:12)
[2019-04-27] MEDS ORDERED: INSULIN GLARGINE [LANTus] (100 UNITS/ML) SYG SC SCH (08:00)
--- NOTE | 2019-04-27 08:29 | CONS ---
Assessment/Plan Assessment/Plan Assessment/Plan (Daily) 1. Acute hypoxemic respiratory failure intubated on ventilator - persistently failed weaning 2. Accelerated HTN 3. ESRD on HD - MWF schedule at [facility] HD center 4. H/o CAD s/p CABG before 5. H/o CAD with previous recent stent placement in 09/2018 6. h/o HTN 7. H/o DM II 8. h/o HL 9. 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 H/o BPH Plan: s/p Tracheostomy on 04/26/19 not doing well, HD done yesterday K was high today AM ,Kayexlate given pt has been having very labile tb Pand he is not tolerating HD in last two days pt is on Coreg 12.5 mg pO BID, losartan 25 mg po daily and HYdralazine 50mg PO TID , cardura 2 mg po daily Epogen 42496 units SQ MWF will follow up Consultation Date/Type/Reason Admit Date/Time Mar 29, 2019 at 13:16 Initial Consult Date 03/29/19 Type of Consult NEPHROLOGY Requesting Provider: LILLIAN ZHANG MD Date/Time of Note DATE: 04/27/19 TIME: 08:29 Exam/Review of Systems Exam Vitals Vital Signs Date Temp Pulse Resp B/P (MAP) Pulse Ox O2 O2 Flow FiO2 Time Delivery Rate 04/27/19 130 15 121/87 94 06:45 (98) 04/27/19 Mechanical 06:00 Ventilator 04/27/19 60 05:37 04/27/19 98.5 02:00 Intake and Output 04/26/19 04/26/19 04/27/19 1515:00 23:00 07:00 IntakeIntake Total 445.625 ml 360.000 ml 494.250 ml OutputOutput Total 2905 ml 0 ml 0 ml BalanceBalance -2459.375 ml 360.000 ml 494.250 ml Results Result Diagram: 04/27/19 0411 04/27/19 041 Results 24hrs Laboratory Tests Test 04/26/19 08:44 04/26/19 12:06 04/26/19 17:41 04/26/19 20:50 Bedside Glucose 238 H 198 250 H 246 H Test 04/27/19 00:23 04/27/19 04:11 04/27/19 05:24 Bedside Glucose 294 H 336 H White Blood Count 26.7 H Red Blood Count 4.10 L Hemoglobin 11.8 L Hematocrit 39.8 L Mean Corpuscular 97.1 Volume Mean Corpuscular 28.8 L Hemoglobin Mean Corpuscular 29.6 L Hemoglobin Concent Red Cell 19.2 H Distribution Width Platelet Count 692 #H Mean Platelet Volume 10.4 Immature 1.100 H Granulocytes % Neutrophils % Segmented 89 H Neutrophils % (Manual) Band Neutrophils % 2 (Manual) Lymphocytes % Lymphocytes % 4 L (Manual) Reactive Lymphocytes 1 H % (Manual) Monocytes % Monocytes % (Manual) 3 Eosinophils % Basophils % Basophils % (Manual) 1 Nucleated Red Blood 0.0 Cells % Immature 0.300 H Granulocytes # Neutrophils # Neutrophils # 23.9 H (Manual) Band Neutrophils # 0.5 Lymphocytes (Manual) 1.0 Lymphocytes # Reactive Lymphocytes 0.2 H # Monocytes # Monocytes # (Manual) 0.8 Eosinophils # Basophils # Basophils # (Manual) 0.2 H Nucleated Red Blood Cells # Pathologist YES Review (Hematology) Platelet Estimate INCREASED Giant Platelets 1 H Poikilocytosis 1+ Anisocytosis 1+ Macrocytosis 1+ Sodium Level 150 H Potassium Level 5.8 H Chloride Level 101 Carbon Dioxide Level 26 Anion Gap 23 #H Blood Urea Nitrogen 37 H Creatinine 6.03 H Est Glomerular 10 L Filtrat Rate mL/min Glucose Level 371 H Calcium Level 12.0 H Phosphorus Level 7.9 H Magnesium Level 3.0 H Medications Medication Current Medications IV Flush (NS 3 ml) 3 ml PER PROTOCOL IV ; Start 03/29/19 at 13:30 Ondansetron HCl (Zofran Inj) 4 mg Q6H PRN IV NAUSEA/VOMITING Last administered on 04/07/19at 18:53; Admin Dose 4 MG; Start 03/29/19 at 13:30 Acetaminophen (Tylenol Tab) 650 mg Q6H PRN PO .PAIN 1-3 OR TEMP Last administered on 03/31/19at 05:48; Admin Dose 650 MG; Start 03/29/19 at 13:30 Hydralazine HCl (Apresoline) 10 mg Q4H PRN IV sbp >185 Last administered on 04/18/19at 14:27; Admin Dose 10 MG; Start 03/29/19 at 14:00 Miscellaneous Information 1 ea NOTE XX ; Start 03/29/19 at 14:30 Glucose (Glutose) 15 gm Q15M PRN PO DECREASED GLUCOSE; Start 03/29/19 at 14:30 Glucose (Glutose) 22.5 gm Q15M PRN PO DECREASED GLUCOSE; Start 03/29/19 at 14:30 Dextrose (D50w Syringe) 25 ml Q15M PRN IV DECREASED GLUCOSE Last administered o n 04/13/19 05:56; Admin Dose 25 ML; Start 03/29/19 at 14:30; Status Hold Dextrose (D50w Syringe) 50 ml Q15M PRN IV DECREASED GLUCOSE; Start 03/29/19 at 14:30 Glucagon (Glucagen) 1 mg Q15M PRN IM DECREASED GLUCOSE; Start 03/29/19 at 14:30 Glucose (Glutose) 15 gm Q15M PRN BUCCAL DECREASED GLUCOSE; Start 03/29/19 at 14:30 Albumin Human 100 ml @ 100 mls/hr WITH DIALYSIS PRN IV SBP <90 DURING DIALYSIS Last administered on 04/26/19 08:36; Admin Dose 100 MLS/HR; Start 03/29/19 at 17:00 Albuterol/ Ipratropium (Duoneb) 3 ml Q2H RESP THERAPY PRN HHN WHEEZING AND RESP DISTRESS Last administered on 04/09/19 08:52; Admin Dose 3 ML; Start 03/29/19 at 18:00 Lorazepam (Ativan) 0.5 mg Q4H PRN IV AGITATION Last administered on 04/16/19 15:45; Admin Dose 0.5 MG; Start 03/29/19 at 18:00 IV Flush (NS 10 ml) 10 ml Q8 PRN IV IV PROTOCOL; Start 03/29/19 at 18:00 Labetalol HCl (Labetalol) 10 mg Q4H PRN IV sbp >160 Last administered on 04/20/19 21:32; Admin Dose 10 MG; Start 03/30/19 at 09:00 Haloperidol (Haldol) 5 mg Q6H PRN IM agitation Last administered on 03/31/19 00:10; Admin Dose 5 MG; Start 03/30/19 at 10:00 Heparin Sodium (Porcine) (Heparin (1000 Units/ml)) 3,200 unit AFTER DIALYSIS C ATHETER Last administered on 04/26/19at 11:56; Admin Dose 3,200 UNIT; Start 03/30/19 at 17:00 Atorvastatin Calcium (Lipitor) 40 mg HS NGT Last administered on 04/26/19 20:52; Admin Dose 40 MG; Start 03/31/19 at 21:00 Baclofen (Lioresal) 10 mg BID GTB Last administered on 04/26/19 20:52; Admin Dose 10 MG; Start 03/31/19 at 21:00 Doxazosin Mesylate (Cardura) 2 mg DAILY NGT Last administered on 04/22/19 14:17; Admin Dose 2 MG; Start 03/31/19 at 14:30 Gabapentin (Neurontin) 100 mg QHS PO Last administered on 04/26/19 20:53; Admin Dose 100 MG; Start 03/31/19 at 21:00 Acetaminophen (Tylenol Liquid) 650 mg Q4H PRN PEG MILD PAIN(1-3)OR ELEVATED TEMP Last administered on 04/16/19 08:42; Admin Dose 650 MG; Start 03/31/19 at 16:00 Lactobacillus Acidophilus/ Rhamnosus (Culturelle) 1 cap TID GTB Last administered on 04/26/19 20:52; Admin Dose 1 CAP; Start 04/02/19 at 13:00 Epoetin [place]-epbx (Retacrit (Esrd)) 10,000 unit MoWeFr@1700 SC Last administered on 04/24/19 18:07; Admin Dose 10,000 UNIT; Start 04/03/19 at 19:30 Lansoprazole (Prevacid) 30 mg BID@0600,1800 GTB Last administered on 04/27/19at 05:25; Admin Dose 30 MG; Start 04/04/19 at 18:00 Multivit/Ca Carb/ B Cmplx/FA/Prenat (Karena-Geovanni) 1 tab DAILY GTB Last administered on 04/25/19 10:32; Admin Dose 1 TAB; Start 04/04/19 at 11:30 Aspirin (Aspirin) 81 mg DAILY PO Last administered on 04/25/19 10:32; Admin Dose 81 MG; Start 04/05/19 at 09:00 Fentanyl 100 ml @ 2.5 mls/hr TITRATE IV Last administered on 04/21/19at 02:38; Admin Dose 4 MLS/HR; Start 04/08/19 at 00:00 Midazolam HCl 50 ml @ 1 mls/hr TITRATE PRN IV agitation Last administered on 04/26/19 10:31; Admin Dose 3 MLS/HR; Start 04/08/19 at 00:00 Norepinephrine 250 ml @ 1.875 mls/ hr TITRATE IV Last administered on 04/26/19 20:49; Admin Dose 3.75 MLS/HR; Start 04/08/19 at 00:00 Mupirocin (Bactroban) 1 applic BID TOP Last administered on 04/26/19 20:53; A dmin Dose 1 APPLIC; Start 04/09/19 at 21:00 Budesonide (Pulmicort (Neb)) 0.5 mg BID RESP THERAPY HHN Last administered on 04/26/19 19:30; Admin Dose 0.5 MG; Start 04/12/19 at 09:00 Insulin Aspart (Novolog Insulin Pen) NOVOLOG *MILD* ALGORI... Q4 SC Last administered on 04/27/19 05:51; Admin Dose 5 UNIT; Start 04/13/19 at 09:00 Clopidogrel Bisulfate (plaVIX) 75 mg DAILY GTB Last administered on 04/25/19 10:32; Admin Dose 75 MG; Start 04/16/19 at 09:00 Quetiapine Fumarate (Seroquel) 50 mg QHS GTB Last administered on 04/26/19 20:52; Admin Dose 50 MG; Start 04/16/19 at 21:00 Losartan Potassium (Cozaar) 25 mg DAILY PO Last administered on 04/23/19 09:19; Admin Dose 25 MG; Start 04/17/19 at 09:00 Alteplase, Recombinant (Cathflo (Activase)) 2 mg MAY REPEAT X1 PRN CATHETER IF CATHETER REMAINS OCCULUDED Last administered on 04/17/19 11:21; Admin Dose 2 MG; Start 04/17/19 at 09:30 Albuterol (Ventolin Hfa) 4 puff Q6H RESP THERAPY INH Last administered on 04/27/19 03:14; Admin Dose 4 PUFF; Start 04/18/19 at 02:00 Ipratropium [place] (Atrovent Hfa) 4 puff Q6H RESP THERAPY INH Last ad ministered on 7/20/19at 03:13; Admin Dose 4 PUFF; Start 04/18/19 at 02:00 Docusate Sodium (Colace Liquid Cup) 100 mg BID PEG Last administered on 04/26/19at 20:52; Admin Dose 100 MG; Start 04/20/19 at 23:00 Polyethylene Glycol (Miralax) 17 gm DAILY PEG Last administered on 04/25/19at 10:31; Admin Dose 17 GM; Start 04/21/19 at 09:00 Nitroglycerin/ Dextrose 250 ml @ 1.5 mls/hr TITRATE IV Last administered on 04/21/19 00:24; Admin Dose 1.5 MLS/HR; Start 04/21/19 at 00:30 Miscellaneous Information (Pending [facility] Order For Wound Care) This patient mcneal... PRN PRN XX WOUND CARE; Start 04/21/19 at 18:00 Carvedilol (Coreg) 3.125 mg QID NGT Last administered on 04/26/19at 20:53; Admin Dose 3.125 MG; Start 04/23/19 at 09:00 Metoclopramide HCl (Reglan) 5 mg Q6 IV Last administered on 04/27/19at 05:25; Admin Dose 5 MG; Start 04/24/19 at 12:00 Vancomycin HCl (Vanco Iv Per Pharmacy) VANCOMYCIN PER PHARMACY PER PROTOCOL XX ; Start 04/26/19 at 13:00 Meropenem/Sodium Chloride 50 ml @ 100 mls/hr Q12 IVPB Last administered on 04/26/19at 21:09; Admin Dose 100 MLS/HR; Start 04/26/19 at 13:00 Insulin Glargine (Lantus) 20 units DAILY@0800 SC ; Start 04/27/19 at 08:00 Miscellaneous Information (*Rx Drug Level Order Reminder*) RANDOM VANCO W/ AM LABS... 0500 ONCE XX ; Start 04/28/19 at 05:00; Stop 04/28/19 at 05:01 BETZAIDA [email or web address] MD Apr 27, 2019 08:29
[2019-04-27] MEDS: LOSARTAN 25 MG TAB PO SCH (09:00)
[2019-04-27] MEDS: DOXAZOSIN 2 MG TAB NGT SCH (09:00)
[2019-04-27] MEDS: MULTIVIT/CA CARB/B CMPLX/FA TAB GTB SCH (09:18)
[2019-04-27] MEDS: BACLOFEN 10 MG TAB GTB SCH ×2 (09:18→20:56)
[2019-04-27] MEDS: DOCUSATE SODIUM 10 MG/ML (10ML CUP) PEG SCH ×2 (09:18→20:56)
[2019-04-27] MEDS: LACTOBACILLUS RHAMNOSUS CAP GTB SCH ×3 (09:18→20:55)
[2019-04-27] MEDS: ASPIRIN 81 MG TAB PO SCH (09:18)
[2019-04-27] MEDS: CLOPIDOGREL 75 MG TAB GTB SCH (09:18)
[2019-04-27] MEDS: POLYETHYLENE GLYCOL 17 GM PACKET PEG SCH (09:18)
[2019-04-27] MEDS: ACETAMINOPHEN 650MG/20.3ML CUP PEG PRN (09:19)
[2019-04-27] MEDS: BALSAM PERU/CASTOR OIL 60 GM TUBE TOP SCH (09:26)
[2019-04-27] MEDS: MEROPENEM 500MG/50 ML (PMX) 50 ML IVPB SCH (09:26)
[2019-04-27] MEDS: MUPIROCIN 2% 22 GM OINT TOP SCH ×2 (09:27→20:56)
[2019-04-27] MEDS ORDERED: morphine 2 MG INJ IV PRN (09:30)
[2019-04-27] MEDS ORDERED: NA POLYST SULFON 15 GM/60 ML BTL GTB ONE (10:00)
--- NOTE | 2019-04-27 10:10 | CONS ---
Assessment/Plan Assessment/Plan Hospital Course (Demo Recall) ID PROGRESS NOTE CURRENT ABX: DAY # 2 =>RESTARTED 04/26/19 on Vanco IV + Merrem s/p Amikacin # + Flagyl # S/P Vanco IV + Zosyn 24H INTERVAL SUMMARY * TMAx 100.7 WBC up today 26.7 == possible recurrent ASP PNA ? vs opportunistic infection ?Urine? * pod #1 --> s/p Trach placed yesterday w/bleeding at trach site improved * Indwelling's: trach, chest PermCath, PEG, Winters, PICC line DIAGNOSTIC IMAGING * 04/27/19 CXR: 1. Interval improvement of left lower lobe consolidation consistent with improved atelectasis.2. Persistent consolidation at the right base may all be due to atelectasis still rule out pneumonia. 3. Tiny left pleural effusion. 4. Unremarkable tracheostomy, right central venous catheter and left PICC line. PROCEDURES * -EGD 04/03/2019 Moderate distal esophagitis. Gastrostomy tube in place. Gastritis -biopsies are negative for H. pylori. Duodenitis. * Colonoscopy 04/03/2019 8 sessile polyp in the cecum. Snared and retrieved. -Tubular adenoma 6 mm sessile polyp ascending colon. Snared and retrieved. -Tubular adenoma 6 mm sessile polyp sigmoid. Snared and retrieved. -Tubular adenoma 20 mm sessile polyp sigmoid. Saline assisted lipectomy plus localization tattoo. Moderate-sized internal hemorrhoids. MICRO * BCx(-) * 04/07/19 BCx (-) * 04/08/19 Sputum (+) GNR x2 RESPIRATORY CULTURE Final Organism 1 K PNEUMO ESBL QUANTITY 2+ . MULTI DRUG RESISTANT ORGANISM Organism 2 SERRATIA MARCESCENS QUANTITY 2+ KLEB PNEUM KLEB PNEUM S MARCESCE M.I.C. RX M.I.C. RX M.I.C. RX --------- --- --------- --- --------- --- AMIKACIN <=2 S CEFAZOLIN R CEFEPIME 2 S CEFOTAXIME R S CIPROFLOXACIN 2 I <=0.25 S GENTAMICIN >=16 R <=1 S LEVOFLOXACIN 1 S <=0.12 S MEROPENEM 0.032 S TOBRAMYCIN >=16 R <=1 S TRIMETHOPRIM/SULFAMETHOXAZOLE >=320 R <=20 S PIPERACILLIN/TAZOBACTAM 16 S PHYSICAL EXAMINATION: GENERAL: VSS, NAD HEENT: AT, NC, NECK: Supple, CHEST: Rise symmetrical HEART: Pulse RRR ABDOMEN: Benign EXTREMITIES: Warm, dry SKIN: No rash, no diaphoresis ID ASSESSMENT 58 yo M admit with: 1. Sepsis w/fevers, leukocytosis 2. Acute hypoxic respiratory failure => s/p Trach placement 04/26/19 3. Aspiration GNR HCAP 4. Encephalopathy, possible acute on chronic CVA 5. End-stage renal disease, hemodialysis dependent 6. Dysphagia-> PEG 7. Liquid diarrhea on current ABX 8. Anemia -> GI work-up Moderate Distal Esophagitis/Gastritis/Internal Hemorrhoids (+)MRSA Nares ->Bactroban ABX ALLERGIES: KNDA INVASIVES: Trach, chest PermCath, PEG, Winters, PICC line CURRENT ABX: DAY # 2 =>RESTARTED 04/26/19 on Vanco IV + Merrem s/p Amikacin # + Flagyl # S/P Vanco IV + Zosyn ID RECOMMENDATIONS/PLAN: 1. ABX restarted for fevers, aspiration pna post TRACH 2/ Check UA, urine cx, resp cx -- change Merrem to Amikacin = narrow ABX spectrum to avoid opportunistic pathogens . Consultation Date/Type/Reason Admit Date/Time Mar 29, 2019 at 13:16 Initial Consult Date 04/07/19 Requesting Provider: LILLIAN ZHANG MD Date/Time of Note DATE: 04/27/19 TIME: 10:08 Exam/Review of Systems Exam Vitals Vital Signs Date Temp Pulse Resp B/P (MAP) Pulse Ox O2 O2 Flow FiO2 Time Delivery Rate 04/27/19 117 17 104/74 96 09:45 (84) 04/27/19 101.7 09:19 7/20/19 Mechanica 09:00 l Ventilato r 04/27/19 60 05:37 Intake and Output 04/26/19 04/26/19 04/27/19 1515:00 23:00 07:00 IntakeIntake Total 445.625 ml 360.000 ml 511.125 ml OutputOutput Total 2905 ml 0 ml 0 ml BalanceBalance -2459.375 ml 360.000 ml 511.125 ml Results Result Diagram: 04/27/19 0411 04/27/19 0411 Results 24hrs Laboratory Tests Test 04/26/19 12:06 04/26/19 17:41 04/26/19 20:50 04/27/19 00:23 Bedside Glucose 198 250 H 246 H 294 H Test 04/27/19 04:11 04/27/19 05:24 White Blood Count 26.7 H Red Blood Count 4.10 L Hemoglobin 11.8 L Hematocrit 39.8 L Mean Corpuscular 97.1 Volume Mean Corpuscular 28.8 L Hemoglobin Mean Corpuscular 29.6 L Hemoglobin Concent Red Cell 19.2 H Distribution Width Platelet Count 692 #H Mean Platelet Volume 10.4 Immature 1.100 H Granulocytes % Neutrophils % Segmented 89 H Neutrophils % (Manual) Band Neutrophils % 2 (Manual) Lymphocytes % Lymphocytes % 4 L (Manual) Reactive Lymphocytes 1 H % (Manual) Monocytes % Monocytes % (Manual) 3 Eosinophils % Basophils % Basophils % (Manual) 1 Nucleated Red Blood 0.0 Cells % Immature 0.300 H Granulocytes # Neutrophils # Neutrophils # 23.9 H (Manual) Band Neutrophils # 0.5 Lymphocytes (Manual) 1.0 Lymphocytes # Reactive Lymphocytes 0.2 H # Monocytes # Monocytes # (Manual) 0.8 Eosinophils # Basophils # Basophils # (Manual) 0.2 H Nucleated Red Blood Cells # Pathologist YES Review (Hematology) Platelet Estimate INCREASED Giant Platelets 1 H Poikilocytosis 1+ Anisocytosis 1+ Macrocytosis 1+ Sodium Level 150 H Potassium Level 5.8 H Chloride Level 101 Carbon Dioxide Level 26 Anion Gap 23 #H Blood Urea Nitrogen 37 H Creatinine 6.03 H Est Glomerular 10 L Filtrat Rate mL/min Glucose Level 371 H Calcium Level 12.0 H Phosphorus Level 7.9 H Magnesium Level 3.0 H Bedside Glucose 336 H Medications Medication Current Medications IV Flush (NS 3 ml) 3 ml PER PROTOCOL IV ; Start 03/29/19 at 13:30 Ondansetron HCl (Zofran Inj) 4 mg Q6H PRN IV NAUSEA/VOMITING Last administered on 04/07/19 18:53; Admin Dose 4 MG; Start 03/29/19 at 13:30 Acetaminophen (Tylenol Tab) 650 mg Q6H PRN PO .PAIN 1-3 OR TEMP Last administered on 03/31/19 05:48; Admin Dose 650 MG; Start 03/29/19 at 13:30 Hydralazine HCl (Apresoline) 10 mg Q4H PRN IV sbp >185 Last administered on 04/18/19 14:27; Admin Dose 10 MG; Start 03/29/19 at 14:00 Miscellaneous Information 1 ea NOTE XX ; Start 03/29/19 at 14:30 Glucose (Glutose) 15 gm Q15M PRN PO DECREASED GLUCOSE; Start 03/29/19 at 14:30 Glucose (Glutose) 22.5 gm Q15M PRN PO DECREASED GLUCOSE; Start 03/29/19 at 14:30 Dextrose (D50w Syringe) 25 ml Q15M PRN IV DECREASED GLUCOSE Last administered on 04/13/19 05:56; Admin Dose 25 ML; Start 03/29/19 at 14:30; Status Hold Dextrose (D50w Syringe) 50 ml Q15M PRN IV DECREASED GLUCOSE; Start 03/29/19 at 14:30 Glucagon (Glucagen) 1 mg Q15M PRN IM DECREASED GLUCOSE; Start 03/29/19 at 14:30 Glucose (Glutose) 15 gm Q15M PRN BUCCAL DECREASED GLUCOSE; Start 03/29/19 at 14:30 Albumin Human 100 ml @ 100 mls/hr WITH DIALYSIS PRN IV SBP <90 DURING DIALYSIS Last administered on 04/26/19 08:36; Admin Dose 100 MLS/HR; Start 03/29/19 at 17:00 Albuterol/ Ipratropium (Duoneb) 3 ml Q2H RESP THERAPY PRN HHN WHEEZING AND RESP DISTRESS Last administered on 04/09/19 08:52; Admin Dose 3 ML; Start 03/29/19 at 18:00 Lorazepam (Ativan) 0.5 mg Q4H PRN IV AGITATION Last administered on 04/16/19 15:45; Admin Dose 0.5 MG; Start 03/29/19 at 18:00 IV Flush (NS 10 ml) 10 ml Q8 PRN IV IV PROTOCOL; Start 03/29/19 at 18:00 Labetalol HCl (Labetalol) 10 mg Q4H PRN IV sbp >160 Last administered on 04/20/19 21:32; Admin Dose 10 MG; Start 03/30/19 at 09:00 Haloperidol (Haldol) 5 mg Q6H PRN IM agitation Last administered on 03/31/19 00:10; Admin Dose 5 MG; Start 03/30/19 at 10:00 Heparin Sodium (Porcine) (Heparin (1000 Units/ml)) 3,200 unit AFTER DIALYSIS CATHETER Last administered on 04/26/19 11:56; Admin Dose 3,200 UNIT; Start 03/30/19 at 17:00 Atorvastatin Calcium (Lipitor) 40 mg HS NGT Last administered on 04/26/19 20:52; Admin Dose 40 MG; Start 03/31/19 at 21:00 Baclofen (Lioresal) 10 mg BID GTB Last administered on 04/27/19 09:18; Admin Dose 10 MG; Start 03/31/19 at 21:00 Doxazosin Mesylate (Cardura) 2 mg DAILY NGT Last administered on 04/22/19 14:17; Admin Dose 2 MG; Start 03/31/19 at 14:30 Gabapentin (Neurontin) 100 mg QHS PO Last administered on 04/26/19 20:53; Admin Dose 100 MG; Start 03/31/19 at 21:00 Acetaminophen (Tylenol Liquid) 650 mg Q4H PRN PEG MILD PAIN(1-3)OR ELEVATED TEMP Last administered on 04/27/19 09:19; Admin Dose 650 MG; Start 03/31/19 at 16:00 Lactobacillus Acidophilus/ Rhamnosus (Culturelle) 1 cap TID GTB Last administered on 04/27/19 09:18; Admin Dose 1 CAP; Start 04/02/19 at 13:00 Epoetin [place]-epbx (Retacrit (Esrd)) 10,000 unit MoWeFr@1700 SC Last administered on 04/24/19 18:07; Admin Dose 10,000 UNIT; Start 04/03/19 at 19:30 Lansoprazole (Prevacid) 30 mg BID@0600,1800 GTB Last administered on 04/27/19 05:25; Admin Dose 30 MG; Start 04/04/19 at 18:00 Multivit/Ca Carb/ B Cmplx/FA/Prenat (Karena-Geovanni) 1 tab DAILY GTB Last administered on 04/27/19 09:18; Admin Dose 1 TAB; Start 04/04/19 at 11:30 Aspirin (Aspirin) 81 mg DAILY PO Last administered on 04/27/19 09:18; Admin Dose 81 MG; Start 04/05/19 at 09:00 Fentanyl 100 ml @ 2.5 mls/hr TITRATE IV Last administered on 04/21/19 02:38; Admin Dose 4 MLS/HR; Start 04/08/19 at 00:00 Midazolam HCl 50 ml @ 1 mls/hr TITRATE PRN IV agitation Last administered on 04/26/19 10:31; Admin Dose 3 MLS/HR; Start 04/08/19 at 00:00 Norepinephrine 250 ml @ 1.875 mls/ hr TITRATE IV Last administered on 04/26/19 20:49; Admin Dose 3.75 MLS/HR; Start 04/08/19 at 00:00 Mupirocin (Bactroban) 1 applic BID TOP Last administered on 04/27/19 09:27; Admin Dose 1 APPLIC; Start 04/09/19 at 21:00 Budesonide (Pulmicort (Neb)) 0.5 mg BID RESP THERAPY HHN Last administered on 04/26/19 19:30; Admin Dose 0.5 MG; Start 04/12/19 at 09:00 Insulin Aspart (Novolog Insulin Pen) NOVOLOG *MILD* ALGORI... Q4 SC Last administered on 04/27/19 05:51; Admin Dose 5 UNIT; Start 04/13/19 at 09:00 Clopidogrel Bisulfate (plaVIX) 75 mg DAILY GTB Last administered on 04/27/19 09:18; Admin Dose 75 MG; Start 04/16/19 at 09:00 Quetiapine Fumarate (Seroquel) 50 mg QHS GTB Last administered on 04/26/19 20:52; Admin Dose 50 MG; Start 04/16/19 at 21:00 Losartan Potassium (Cozaar) 25 mg DAILY PO Last administered on 04/23/19 09:19; Admin Dose 25 MG; Start 04/17/19 at 09:00 Alteplase, Recombinant (Cathflo (Activase)) 2 mg MAY REPEAT X1 PRN CATHETER IF CATHETER REMAINS OCCULUDED Last administered on 04/17/19at 11:21; Admin Dose 2 MG; Start 04/17/19 at 09:30 Albuterol (Ventolin Hfa) 4 puff Q6H RESP THERAPY INH Last administered on 04/27/19 08:42; Admin Dose 4 PUFF; Start 04/18/19 at 02:00 Ipratropium [place] (Atrovent Hfa) 4 puff Q6H RESP THERAPY INH Last administered on 04/27/19 08:41; Admin Dose 4 PUFF; Start 04/18/19 at 02:00 Docusate Sodium (Colace Liquid Cup) 100 mg BID PEG Last administered on 04/27/19 09:18; Admin Dose 100 MG; Start 04/20/19 at 23:00 Polyethylene Glycol (Miralax) 17 gm DAILY PEG Last administered on 04/27/19 09:18; Admin Dose 17 GM; Start 04/21/19 at 09:00 Nitroglycerin/ Dextrose 250 ml @ 1.5 mls/hr TITRATE IV Last administered on 04/21/19at 00:24; Admin Dose 1.5 MLS/HR; Start 04/21/19 at 00:30 Misc[facility] This patient mcneal... PRN PRN XX WOUND CARE; Start 04/21/19 at 18:00 Carvedilol (Coreg) 3.125 mg QID NGT Last administered on 04/26/19at 20:53; Admin Dose 3.125 MG; Start 04/23/19 at 09:00 Metoclopramide HCl (Reglan) 5 mg Q6 IV Last administered on 04/27/19at 05:25; Admin Dose 5 MG; Start 04/24/19 at 12:00 Vancomycin HCl (Vanco Iv Per Pharmacy) VANCOMYCIN PER PHARMACY PER PROTOCOL XX ; Start 04/26/19 at 13:00 Meropenem/Sodium Chloride 50 ml @ 100 mls/hr Q12 IVPB Last administered on 04/09 at 09:26; Admin Dose 100 MLS/HR; Start 04/26/19 at 13:00 Insulin Glargine (Lantus) 20 units DAILY@0800 SC ; Start 04/27/19 at 08:00 Miscellaneous Information (*Rx Drug Level Order Reminder*) RANDOM VANCO W/ AM LABS... 0500 ONCE XX ; Start 04/28/19 at 05:00; Stop 04/28/19 at 05:01 Morphine Sulfate (morphine) 2 mg Q2H PRN IV SEVERE PAIN LEVEL 7-10; Start 04/27/19 at 09:30 Sodium Polystyrene Sulfonate (Kayexalate) 30 gm ONCE ONCE GTB ; Start 04/27/19 at 10:00; Stop 04/27/19 at 10:01; Status PEE BENJAMIN NP Apr 27, 2019 10:10
[2019-04-27] MEDS: BUDESONIDE (NEB) 0.5MG/2ML AMP HHN SCH ×2 (10:26→20:17)
--- NOTE | 2019-04-27 10:36 | CONS ---
Consult Date/Type/Reason Admit Date/Time Mar 29, 2019 at 13:16 Initial Consult Date 04/07/19 Type of Consult Pulmonary Requesting Provider: LILLIAN ZHANG MD Date/Time of Note DATE: 04/27/19 TIME: 10:31 Subjective Patient status post tracheostomy yesterday significant bleeding from trach site overnight however settled now. Still has intermittent agitation. Objective Vital Signs Date Temp Pulse Resp B/P (MAP) Pulse Ox O2 O2 Flow FiO2 Time Delivery Rate 04/27/19 117 17 104/74 96 09:45 (84) 04/27/19 101.7 09:19 04/27/19 Mechanica 09:00 l Ventilato r 04/27/19 60 05:37 Intake and Output 04/26/19 04/26/19 04/27/19 1515:00 23:00 07:00 IntakeIntake Total 445.625 ml 360.000 ml 511.125 ml OutputOutput Total 2905 ml 0 ml 0 ml BalanceBalance -2459.375 ml 360.000 ml 511.125 ml Exam GENERAL: Elderly appearing gentleman on mechanical ventilation via tracheostomy. Continues low-dose Levophed. VITAL SIGNS: per chart NECK: Supple. No JVD or lymphadenopathy. CARDIAC EXAM: S1, S2. No added sounds or murmurs. CHEST: Diminished air entry bilaterally ABDOMEN: Soft, nontender. No guarding or rebound. EXTREMITIES: No cyanosis, clubbing or edema. NEUROLOGIC: Generalized weakness. Unable to assess Vent Setting Ventilator Support Mode: AC Fraction of Inspired Oxygen pe: 60 Positive End Expiratory Pressu: 5.0 Results/Medications Result Diagram: 04/27/19 0411 04/27/19 0411 Results 24 hrs Laboratory Tests Test 04/26/19 12:06 04/26/19 17:41 04/26/19 20:50 04/27/19 00:23 Bedside Glucose 198 250 H 246 H 294 H Test 04/27/19 04:11 04/27/19 05:24 04/27/19 10:19 White Blood Count 26.7 H Red Blood Count 4.10 L Hemoglobin 11.8 L Hematocrit 39.8 L Mean Corpuscular 97.1 Volume Mean Corpuscular 28.8 L Hemoglobin Mean Corpuscular 29.6 L Hemoglobin Concent Red Cell 19.2 H Distribution Width Platelet Count 692 #H Mean Platelet Volume 10.4 Immature 1.100 H Granulocytes % Neutrophils % Segmented 89 H Neutrophils % (Manual) Band Neutrophils % 2 (Manual) Lymphocytes % Lymphocytes % 4 L (Manual) Reactive Lymphocytes 1 H % (Manual) Monocytes % Monocytes % (Manual) 3 Eosinophils % Basophils % Basophils % (Manual) 1 Nucleated Red Blood 0.0 Cells % Immature 0.300 H Granulocytes # Neutrophils # Neutrophils # 23.9 H (Manual) Band Neutrophils # 0.5 Lymphocytes (Manual) 1.0 Lymphocytes # Reactive Lymphocytes 0.2 H # Monocytes # Monocytes # (Manual) 0.8 Eosinophils # Basophils # Basophils # (Manual) 0.2 H Nucleated Red Blood Cells # Pathologist YES Review (Hematology) Platelet Estimate INCREASED Giant Platelets 1 H Poikilocytosis 1+ Anisocytosis 1+ Macrocytosis 1+ Sodium Level 150 H Potassium Level 5.8 H Chloride Level 101 Carbon Dioxide Level 26 Anion Gap 23 #H Blood Urea Nitrogen 37 H Creatinine 6.03 H Est Glomerular 10 L Filtrat Rate mL/min Glucose Level 371 H Calcium Level 12.0 H Phosphorus Level 7.9 H Magnesium Level 3.0 H Bedside Glucose 336 H 377 H Medications Current Medications IV Flush (NS 3 ml) 3 ml PER PROTOCOL IV ; Start 03/29/19 at 13:30 Ondansetron HCl (Zofran Inj) 4 mg Q6H PRN IV NAUSEA/VOMITING Last administered on 04/07/19at 18:53; Admin Dose 4 MG; Start 03/29/19 at 13:30 Acetaminophen (Tylenol Tab) 650 mg Q6H PRN PO .PAIN 1-3 OR TEMP Last administered on 03/31/19at 05:48; Admin Dose 650 MG; Start 03/29/19 at 13:30 Hydralazine HCl (Apresoline) 10 mg Q4H PRN IV sbp >185 Last administered on 04/18/19at 14:27; Admin Dose 10 MG; Start 03/29/19 at 14:00 Miscellaneous Information 1 ea NOTE XX ; Start 03/29/19 at 14:30 Glucose (Glutose) 15 gm Q15M PRN PO DECREASED GLUCOSE; Start 03/29/19 at 14:30 Glucose (Glutose) 22.5 gm Q15M PRN PO DECREASED GLUCOSE; Start 03/29/19 at 14:30 Dextrose (D50w Syringe) 25 ml Q15M PRN IV DECREASED GLUCOSE Last administered on 04/13/19 05:56; Admin Dose 25 ML; Start 03/29/19 at 14:30; Status Hold Dextrose (D50w Syringe) 50 ml Q15M PRN IV DECREASED GLUCOSE; Start 03/29/19 at 14:30 Glucagon (Glucagen) 1 mg Q15M PRN IM DECREASED GLUCOSE; Start 03/29/19 at 14:30 Glucose (Glutose) 15 gm Q15M PRN BUCCAL DECREASED GLUCOSE; Start 03/29/19 at 14:30 Albumin Human 100 ml @ 100 mls/hr WITH DIALYSIS PRN IV SBP <90 DURING DIALYSIS Last administered on 04/26/19 08:36; Admin Dose 100 MLS/HR; Start 03/29/19 at 17:00 Albuterol/ Ipratropium (Duoneb) 3 ml Q2H RESP THERAPY PRN HHN WHEEZING AND RESP DISTRESS Last administered on 04/09/19 08:52; Admin Dose 3 ML; Start 03/29/19 at 18:00 Lorazepam (Ativan) 0.5 mg Q4H PRN IV AGITATION Last administered on 04/16/19 15:45; Admin Dose 0.5 MG; Start 03/29/19 at 18:00 IV Flush (NS 10 ml) 10 ml Q8 PRN IV IV PROTOCOL; Start 03/29/19 at 18:00 Labetalol HCl (Labetalol) 10 mg Q4H PRN IV sbp >160 Last administered on 04/20/19 21:32; Admin Dose 10 MG; Start 03/30/19 at 09:00 Haloperidol (Haldol) 5 mg Q6H PRN IM agitation Last administered on 03/31/19 00:10; Admin Dose 5 MG; Start 03/30/19 at 10:00 Heparin Sodium (Porcine) (Heparin (1000 Units/ml)) 3,200 unit AFTER DIALYSIS CATHETER Last administered on 04/26/19 11:56; Admin Dose 3,200 UNIT; Start at 17:00 Atorvastatin Calcium (Lipitor) 40 mg HS NGT Last administered on 04/26/19 20:52; Admin Dose 40 MG; Start 03/31/19 at 21:00 Baclofen (Lioresal) 10 mg BID GTB Last administered on 04/27/19 09:18; Admin Dose 10 MG; Start 03/31/19 at 21:00 Doxazosin Mesylate (Cardura) 2 mg DAILY NGT Last administered on 04/22/19 14:17; Admin Dose 2 MG; Start 03/31/19 at 14:30 Gabapentin (Neurontin) 100 mg QHS PO Last administered on 04/26/19 20:53; Admin Dose 100 MG; Start 03/31/19 at 21:00 Acetaminophen (Tylenol Liquid) 650 mg Q4H PRN PEG MILD PAIN(1-3)OR ELEVATED TEMP Last administered on 04/27/19 09:19; Admin Dose 650 MG; Start 03/31/19 at 16:00 Lactobacillus Acidophilus/ Rhamnosus (Culturelle) 1 cap TID GTB Last administered on 04/27/19 09:18; Admin Dose 1 CAP; Start 04/02/19 at 13:00 Epoetin [place]-epbx (Retacrit (Esrd)) 10,000 unit MoWeFr@1700 SC Last administered on 04/24/19 18:07; Admin Dose 10,000 UNIT; Start 04/03/19 at 19:30 Lansoprazole (Prevacid) 30 mg BID@0600,1800 GTB Last administered on 04/27/19 05:25; Admin Dose 30 MG; Start 04/04/19 at 18:00 Multivit/Ca Carb/ B Cmplx/FA/Prenat (Karena-Geovanni) 1 tab DAILY GTB Last administered on 04/27/19 09:18; Admin Dose 1 TAB; Start 04/04/19 at 11:30 Aspirin (Aspirin) 81 mg DAILY PO Last administered on 04/27/19 09:18; Admin Dose 81 MG; Start 04/05/19 at 09:00 Fentanyl 100 ml @ 2.5 mls/hr TITRATE IV Last administered on 04/21/19 02:38; Admin Dose 4 MLS/HR; Start 04/08/19 at 00:00 Midazolam HCl 50 ml @ 1 mls/hr TITRATE PRN IV agitation Last administered on 04/26/19 10:31; Admin Dose 3 MLS/HR; Start 04/08/19 at 00:00 Norepinephrine 250 ml @ 1.875 mls/ hr TITRATE IV Last administered on 04/26/19 20:49; Admin Dose 3.75 MLS/HR; Start 04/08/19 at 00:00 Mupirocin (Bactroban) 1 applic BID TOP Last administered on 04/27/19 09:27; Admin Dose 1 APPLIC; Start 04/09/19 at 21:00 Budesonide (Pulmicort (Neb)) 0.5 mg BID RESP THERAPY HHN Last administered on 04/27/19 10:26; Admin Dose 0.5 MG; Start 04/12/19 at 09:00 Insulin Aspart (Novolog Insulin Pen) NOVOLOG *MILD* ALGORI... Q4 SC Last administered on 04/27/19 10:24; Admin Dose 7 UNIT; Start 04/13/19 at 09:00 Clopidogrel Bisulfate (plaVIX) 75 mg DAILY GTB Last administered on 04/27/19 09:18; Admin Dose 75 MG; Start 04/16/19 at 09:00 Quetiapine Fumarate (Seroquel) 50 mg QHS GTB Last administered on 04/26/19 20:52; Admin Dose 50 MG; Start 04/16/19 at 21:00 Losartan Potassium (Cozaar) 25 mg DAILY PO Last administered on 04/23/19 09:19; Admin Dose 25 MG; Start 04/17/19 at 09:00 Alteplase, Recombinant (Cathflo (Activase)) 2 mg MAY REPEAT X1 PRN CATHETER IF CATHETER REMAINS OCCULUDED Last administered on 04/17/19 11:21; Admin Dose 2 MG; Start 04/17/19 at 09:30 Albuterol (Ventolin Hfa) 4 puff Q6H RESP THERAPY INH Last administered on 04/27/19 08:42; Admin Dose 4 PUFF; Start 04/18/19 at 02:00 Ipratropium [place] (Atrovent Hfa) 4 puff Q6H RESP THERAPY INH Last administered on 04/27/19 08:41; Admin Dose 4 PUFF; Start 04/18/19 at 02:00 Docusate Sodium (Colace Liquid Cup) 100 mg BID PEG Last administered on 04/27/19 09:18; Admin Dose 100 MG; Start 04/20/19 at 23:00 Polyethylene Glycol (Miralax) 17 gm DAILY PEG Last administered on 04/27/19at 09:18; Admin Dose 17 GM; Start 04/21/19 at 09:00 Nitroglycerin/ Dextrose 250 ml @ 1.5 mls/hr TITRATE IV Last administered on 04/21/19at 00:24; Admin Dose 1.5 MLS/HR; Start 04/21/19 at 00:30 Miscellaneous Information (Pending [facility] Order For Wound Care) This patient mcneal... PRN PRN XX WOUND CARE; Start 04/21/19 at 18:00 Carvedilol (Coreg) 3.125 mg QID NGT Last administered on 04/26/19at 20:53; Admin Dose 3.125 MG; Start 04/23/19 at 09:00 Metoclopramide HCl (Reglan) 5 mg Q6 IV Last administered on 04/27/19at 05:25; Admin Dose 5 MG; Start 04/24/19 at 12:00 Vancomycin HCl (Vanco Iv Per Pharmacy) VANCOMYCIN PER PHARMACY PER PROTOCOL XX ; Start 04/26/19 at 13:00 Meropenem/Sodium Chloride 50 ml @ 100 mls/hr Q12 IVPB Last administered on 04/27/19at 09:26; Admin Dose 100 MLS/HR; Start 04/26/19 at 13:00 Insulin Glargine (Lantus) 20 units DAILY@0800 SC ; Start 04/27/19 at 08:00 Miscellaneous Information (*Rx Drug Level Order Reminder*) RANDOM VANCO W/ AM LABS... 0500 ONCE XX ; Start 04/28/19 at 05:00; Stop 04/28/19 at 05:01 Morphine Sulfate (morphine) 2 mg Q2H PRN IV SEVERE PAIN LEVEL 7-10; Start 04/27/19 at 09:30 Assessment/Plan Hospital Course (Demo Recall) iMP: 1. Respiratory Failure/Ventilator Dependence 2. Septic shock with persistent leukocytosis and fevers 3. Chronic renal insufficiency on hemodialysis 4. Anemia likely of chronic disease 5. Encephalopathy toxic metabolic RECS: 1. Ventilator support--continue mechanical ventilation 3. HD/UD. 4. Anti-seizure medications. 5. DVT and GI prophylaxis. 6. Panculture and ID recommendations. 7. Tube feeding with free water. Critical care time 40 minutes. Elliott SAMMI Champion MD, [facility] Apr 27, 2019 10:36
[2019-04-27] MEDS ORDERED: AMIKACIN IV PER PHARMACY XX SCH (11:00)
[2019-04-27] MEDS ORDERED: NA POLYST SULFON 15 GM/60 ML BTL PR ONE (11:00)
--- NOTE | 2019-04-27 12:42 | PN ---
Date/Time of Note Date/Time of Note DATE: 04/27/19 TIME: 12:39 Assessment/Plan VTE Prophylaxis Risk score (from Nsg)>0 risk: 11 SCD applied (from Nsg): Yes Pharmacological prophylaxis: heparin Lines/Catheters IV Catheter Type (from Nrsg): PERMA CATH Urinary Cath still in place: No Assessment/Plan Hospital Course 1. Acute hypoxic respiratory failure -Patient now status post tracheostomy placement -Continue vent support 2. Acute encephalopathy secondary to acute left thalamic stroke with delirium - Neuro on board and appreciate consultation - Carotid US noted with stenosis <70%. Will continue plavix at this time given patient not stable for any type of intervention but will need to be assessed for CEA in the future -No further sedation indicated now that patient no longer has ET tube, monitor off sedation as patient likely has elements of delirium -Neurology following, EEG demonstrates diffuse slowing 3. HCAP/Aspiration Pneumonia- resolving - CXR with no signs of PNA - Pulm on board and appreciate recommendations - ID on board for antibiotic management 4. History of CVA with residual left-sided deficit and more recent CVA - New left thalamic stroke appreciated on repeat MRI. - Neurology consultation appreciated -MRI shows old chronic lacunar infarcts bilaterally in the basal ganglia and thalamus as well as right frontal murguia radiata small vessel infarct 5. Anemia - stable - GI consultation appreciated and EGD revealed moderate distal esophagitis and gastritis and duodenitis. Colonoscopy showed internal hemorrhoids. Will need repeat colonoscopy in the future 6. End-stage renal disease on hemodialysis - Nephrology on board and appreciate consultation. Continue HD 7. Coronary artery disease status post CABG history - continue home medications -Holding Plavix and aspirin 8. Epilepsy - Continue Keppra - EEG noted with slowing 9. BPH Prophylaxis: Heparin Disposition -Patient now status post tracheostomy placement, anticipate discharge to subacute in the coming days Result Diagram: 04/27/19 0411 04/27/19 0411 Results 24hrs Laboratory Tests Test 04/26/19 17:41 04/26/19 20:50 04/27/19 00:23 04/27/19 04:11 Bedside Glucose 250 H 246 H 294 H White Blood Count 26.7 H Red Blood Count 4.10 L Hemoglobin 11.8 L Hematocrit 39.8 L Mean Corpuscular 97.1 Volume Mean Corpuscular 28.8 L Hemoglobin Mean Corpuscular 29.6 L Hemoglobin Concent Red Cell 19.2 H Distribution Width Platelet Count 692 #H Mean Platelet Volume 10.4 Immature 1.100 H Granulocytes % Neutrophils % Segmented 89 H Neutrophils % (Manual) Band Neutrophils % 2 (Manual) Lymphocytes % Lymphocytes % 4 L (Manual) Reactive Lymphocytes 1 H % (Manual) Monocytes % Monocytes % (Manual) 3 Eosinophils % Basophils % Basophils % (Manual) 1 Nucleated Red Blood 0.0 Cells % Immature 0.300 H Granulocytes # Neutrophils # Neutrophils # 23.9 H (Manual) Band Neutrophils # 0.5 Lymphocytes (Manual) 1.0 Lymphocytes # Reactive Lymphocytes 0.2 H # Monocytes # Monocytes # (Manual) 0.8 Eosinophils # Basophils # Basophils # (Manual) 0.2 H Nucleated Red Blood Cells # Pathologist YES Review (Hematology) Platelet Estimate INCREASED Giant Platelets 1 H Poikilocytosis 1+ Anisocytosis 1+ Macrocytosis 1+ Sodium Level 150 H Potassium Level 5.8 H Chloride Level 101 Carbon Dioxide Level 26 Anion Gap 23 #H Blood Urea Nitrogen 37 H Creatinine 6.03 H Est Glomerular 10 L Filtrat Rate mL/min Glucose Level 371 H Calcium Level 12.0 H Phosphorus Level 7.9 H Magnesium Level 3.0 H Test 04/27/19 05:24 04/27/19 10:19 Bedside Glucose 336 H 377 H Subjective 24 Hr Interval Summary Subjective hx not possible: pt non-verbal Exam/Review of Systems Exam Vitals Vital Signs Date Temp Pulse Resp B/P (MAP) Pulse Ox O2 O2 Flow FiO2 Time Delivery Rate 04/27/19 118 18 96 60 11:30 04/27/19 102/76 10:45 (85) 04/27/19 Mechanica 10:00 l Ventilato r 04/27/19 101.7 09:19 Intake and Output 04/26/19 04/26/19 04/27/19 1515:00 23:00 07:00 IntakeIntake Total 445.625 ml 360.000 ml 511.125 ml OutputOutput Total 2905 ml 0 ml 0 ml BalanceBalance -2459.375 ml 360.000 ml 511.125 ml Constitutional: non-verbal Respiratory: clear to auscultation Cardiovascular: regular rate and rhythm Gastrointestinal: soft; No distended Musculoskeletal: nl extremities to inspection Results Results 24hrs Laboratory Tests Test 04/26/19 17:41 04/26/19 20:50 04/27/19 00:23 04/27/19 04:11 Bedside Glucose 250 H 246 H 294 H White Blood Count 26.7 H Red Blood Count 4.10 L Hemoglobin 11.8 L Hematocrit 39.8 L Mean Corpuscular 97.1 Volume Mean Corpuscular 28.8 L Hemoglobin Mean Corpuscular 29.6 L Hemoglobin Concent Red Cell 19.2 H Distribution Width Platelet Count 692 #H Mean Platelet Volume 10.4 Immature 1.100 H Granulocytes % Neutrophils % Segmented 89 H Neutrophils % (Manual) Band Neutrophils % 2 (Manual) Lymphocytes % Lymphocytes % 4 L (Manual) Reactive Lymphocytes 1 H % (Manual) Monocytes % Monocytes % (Manual) 3 Eosinophils % Basophils % Basophils % (Manual) 1 Nucleated Red Blood 0.0 Cells % Immature 0.300 H Granulocytes # Neutrophils # Neutrophils # 23.9 H (Manual) Band Neutrophils # 0.5 Lymphocytes (Manual) 1.0 Lymphocytes # Reactive Lymphocytes 0.2 H # Monocytes # Monocytes # (Manual) 0.8 Eosinophils # Basophils # Basophils # (Manual) 0.2 H Nucleated Red Blood Cells # Pathologist YES Review (Hematology) Platelet Estimate INCREASED Giant Platelets 1 H Poikilocytosis 1+ Anisocytosis 1+ Macrocytosis 1+ Sodium Level 150 H Potassium Level 5.8 H Chloride Level 101 Carbon Dioxide Level 26 Anion Gap 23 #H Blood Urea Nitrogen 37 H Creatinine 6.03 H Est Glomerular 10 L Filtrat Rate mL/min Glucose Level 371 H Calcium Level 12.0 H Phosphorus Level 7.9 H Magnesium Level 3.0 H Test 04/27/19 05:24 04/27/19 10:19 Bedside Glucose 336 H 377 H Medications Medication Current Medications IV Flush (NS 3 ml) 3 ml PER PROTOCOL IV ; Start 03/29/19 at 13:30 Ondansetron HCl (Zofran Inj) 4 mg Q6H PRN IV NAUSEA/VOMITING Last administered on 04/07/19at 18:53; Admin Dose 4 MG; Start 03/29/19 at 13:30 Acetaminophen (Tylenol Tab) 650 mg Q6H PRN PO .PAIN 1-3 OR TEMP Last administered on 03/31/19at 05:48; Admin Dose 650 MG; Start 03/29/19 at 13:30 Hydralazine HCl (Apresoline) 10 mg Q4H PRN IV sbp >185 Last administered on 04/18/19 14:27; Admin Dose 10 MG; Start 03/29/19 at 14:00 Miscellaneous Information 1 ea NOTE XX ; Start 03/29/19 at 14:30 Glucose (Glutose) 15 gm Q15M PRN PO DECREASED GLUCOSE; Start 03/29/19 at 14:30 Glucose (Glutose) 22.5 gm Q15M PRN PO DECREASED GLUCOSE; Start 03/29/19 at 14:30 Dextrose (D50w Syringe) 25 ml Q15M PRN IV DECREASED GLUCOSE Last administered on 04/13/19at 05:56; Admin Dose 25 ML; Start 03/29/19 at 14:30; Status Hold Dextrose (D50w Syringe) 50 ml Q15M PRN IV DECREASED GLUCOSE; Start 03/29/19 at 14:30 Glucagon (Glucagen) 1 mg Q15M PRN IM DECREASED GLUCOSE; Start 03/29/19 at 14:30 Glucose (Glutose) 15 gm Q15M PRN BUCCAL DECREASED GLUCOSE; Start 03/29/19 at 14:30 Albumin Human 100 ml @ 100 mls/hr WITH DIALYSIS PRN IV SBP <90 DURING DIALYSIS Last administered on 04/26/19 08:36; Admin Dose 100 MLS/HR; Start 03/29/19 at 17:00 Albuterol/ Ipratropium (Duoneb) 3 ml Q2H RESP THERAPY PRN HHN WHEEZING AND RESP DISTRESS Last administered on 04/09/19 08:52; Admin Dose 3 ML; Start 03/29/19 at 18:00 Lorazepam (Ativan) 0.5 mg Q4H PRN IV AGITATION Last administered on 04/16/19 15:45; Admin Dose 0.5 MG; Start 03/29/19 at 18:00 IV Flush (NS 10 ml) 10 ml Q8 PRN IV IV PROTOCOL; Start 03/29/19 at 18:00 Labetalol HCl (Labetalol) 10 mg Q4H PRN IV sbp >160 Last administered on 04/20/19 21:32; Admin Dose 10 MG; Start 03/30/19 at 09:00 Haloperidol (Haldol) 5 mg Q6H PRN IM agitation Last administered on 03/31/19 00:10; Admin Dose 5 MG; Start 03/30/19 at 10:00 Heparin Sodium (Porcine) (Heparin (1000 Units/ml)) 3,200 unit AFTER DIALYSIS CATHETER Last administered on 04/26/19 11:56; Admin Dose 3,200 UNIT; Start 03/30/19 at 17:00 Atorvastatin Calcium (Lipitor) 40 mg HS NGT Last administered on 04/26/19 20:52; Admin Dose 40 MG; Start 03/31/19 at 21:00 Baclofen (Lioresal) 10 mg BID GTB Last administered on 04/27/19 09:18; Admin Dose 10 MG; Start 03/31/19 at 21:00 Doxazosin Mesylate (Cardura) 2 mg DAILY NGT Last administered on 04/22/19 14:17; Admin Dose 2 MG; Start 03/31/19 at 14:30 Gabapentin (Neurontin) 100 mg QHS PO Last administered on 04/26/19 20:53; Admin Dose 100 MG; Start 03/31/19 at 21:00 Acetaminophen (Tylenol Liquid) 650 mg Q4H PRN PEG MILD PAIN(1-3)OR ELEVATED TEMP Last administered on 04/27/19 09:19; Admin Dose 650 MG; Start 03/31/19 at 16:00 Lactobacillus Acidophilus/ Rhamnosus (Culturelle) 1 cap TID GTB Last administered on 04/27/19 09:18; Admin Dose 1 CAP; Start 04/02/19 at 13:00 Epoetin [place]-epbx (Retacrit (Esrd)) 10,000 unit MoWeFr@1700 SC Last administered on 04/24/19 18:07; Admin Dose 10,000 UNIT; Start 04/03/19 at 19:30 Lansoprazole (Prevacid) 30 mg BID@0600,1800 GTB Last administered on 04/27/19 05:25; Admin Dose 30 MG; Start 04/04/19 at 18:00 Multivit/Ca Carb/ B Cmplx/FA/Prenat ([place]arena-Geovanni) 1 tab DAILY GTB Last administered on 04/27/19 09:18; Admin Dose 1 TAB; Start 04/04/19 at 11:30 Aspirin (Aspirin) 81 mg DAILY PO Last administered on 04/27/19 09:18; Admin Dose 81 MG; Start 04/05/19 at 09:00 Fentanyl 100 ml @ 2.5 mls/hr TITRATE IV Last administered on 04/21/19 02:38; Admin Dose 4 MLS/HR; Start 04/08/19 at 00:00 Midazolam HCl 50 ml @ 1 mls/hr TITRATE PRN IV agitation Last administered on 04/26/19 10:31; Admin Dose 3 MLS/HR; Start 04/08/19 at 00:00 Norepinephrine 250 ml @ 1.875 mls/ hr TITRATE IV Last administered on 04/26/19 20:49; Admin Dose 3.75 MLS/HR; Start 04/08/19 at 00:00 Mupirocin (Bactroban) 1 applic BID TOP Last administered on 04/27/19 09:27; Admin Dose 1 APPLIC; Start 04/09/19 at 21:00 Budesonide (Pulmicort (Neb)) 0.5 mg BID RESP THERAPY HHN Last administered on 04/27/19 10:26; Admin Dose 0.5 MG; Start 04/12/19 at 09:00 Insulin Aspart (Novolog Insulin Pen) NOVOLOG *MILD* ALGORI... Q4 SC Last administered on 04/27/19 10:24; Admin Dose 7 UNIT; Start 04/13/19 at 09:00 Clopidogrel Bisulfate (plaVIX) 75 mg DAILY GTB Last administered on 04/27/19 09:18; Admin Dose 75 MG; Start 04/16/19 at 09:00 Quetiapine Fumarate (Seroquel) 50 mg QHS GTB Last administered on 04/26/19 20:52; Admin Dose 50 MG; Start 04/16/19 at 21:00 Losartan Potassium (Cozaar) 25 mg DAILY PO Last administered on 04/23/19 09:19; Admin Dose 25 MG; Start 04/17/19 at 09:00 Alteplase, Recombinant (Cathflo (Activase)) 2 mg MAY REPEAT X1 PRN CATHETER IF CATHETER REMAINS OCCULUDED Last administered on 04/17/19 11:21; Admin Dose 2 MG; Start 04/17/19 at 09:30 Albuterol (Ventolin Hfa) 4 puff Q6H RESP THERAPY INH Last administered on 04/27/19 08:42; Admin Dose 4 PUFF; Start 04/18/19 at 02:00 Ipratropium [place] (Atrovent Hfa) 4 puff Q6H RESP THERAPY INH Last administered on 04/27/19at 08:41; Admin Dose 4 PUFF; Start 04/18/19 at 02:00 Docusate Sodium (Colace Liquid Cup) 100 mg BID PEG Last administered on 04/27/19at 09:18; Admin Dose 100 MG; Start 04/20/19 at 23:00 Polyethylene Glycol (Miralax) 17 gm DAILY PEG Last administered on 04/27/19at 09:18; Admin Dose 17 GM; Start 04/21/19 at 09:00 Nitroglycerin/ Dextrose 250 ml @ 1.5 mls/hr TITRATE IV Last administered on 04/21/19at 00:24; Admin Dose 1.5 MLS/HR; Start 04/21/19 at 00:30 Miscellaneous Information (Pending Santyl Order For Wound Care) This patient mcneal... PRN PRN XX WOUND CARE; Start 04/21/19 at 18:00 Carvedilol (Coreg) 3.125 mg QID NGT Last administered on 04/26/19at 20:53; Admin Dose 3.125 MG; Start 04/23/19 at 09:00 Metoclopramide HCl (Reglan) 5 mg Q6 IV Last administered on 04/27/19at 05:25; Admin Dose 5 MG; Start 04/24/19 at 12:00 Vancomycin HCl (Vanco Iv Per Pharmacy) VANCOMYCIN PER PHARMACY PER PROTOCOL XX ; Start 04/26/19 at 13:00 Insulin Glargine (Lantus) 20 units DAILY@0800 SC Last administered on 04/27/19at 10:23; Admin Dose 20 UNITS; Start 04/27/19 at 08:00 Miscellaneous Information (*Rx Drug Level Order Reminder*) RANDOM VANCO W/ AM LABS... 0500 ONCE XX ; Start 04/28/19 at 05:00; Stop 04/28/19 at 05:01 Morphine Sulfate (morphine) 2 mg Q2H PRN IV SEVERE PAIN LEVEL 7-10; Start 04/27/19 at 09:30 Amikacin Sulfate (Amikacin Iv Per Pharmacy) AMIKACIN PER PHARMACY NOTE XX ; Start 04/27/19 at 11:00 Metronidazole (Flagyl) 250 mg Q6 GTB ; Start 04/27/19 at 12:00 Amikacin Sulfate 450 mg/Sodium Chloride 101.8 ml @ 102 mls/hr ONCE@1300 IVPB ; Start 04/27/19 at 13:00; Stop 04/27/19 at 19:00 Amikacin Sulfate 300 mg/Sodium Chloride 101.2 ml @ 102 mls/hr AFTER DIALYSIS IVPB ; Start 04/28/19 at 12:00 ZHANG YOUNG Apr 27, 2019 12:41
[2019-04-27] MEDS ORDERED: AMIKACIN 450 MG in SOD CHLORIDE 0.9% 100 ML IVPB SCH (13:00)
[2019-04-27] MEDS: metroNIDAZOLE 250 MG TAB GTB SCH ×2 (14:03→17:38)
--- NOTE | 2019-04-27 15:02 | CONS ---
Assessment/Plan Assessment/Plan Hospital Course (Demo Recall) Impression: 1. History of extensive coronary artery disease status post [place] status post coronary bypass graft status post PCI 2. Status post multiple CVAs 3. Shock on levophed 4. End-stage renal disease on hemodialysis 5. History of hypertension, hypotensive now 6 Resp failure post recent tracheostomy and PEG, with intermittent oozing from trach site Recommendations: Continue with aspirin and clopidogrel given his recurrent CVAs as well as recent PCI Given shock, would dc carvedilol and any other hypertensive Respiratory care and ventilatory support will be continued. Hemodialysis as per renal. Consultation Date/Type/Reason Admit Date/Time Mar 29, 2019 at 13:16 Initial Consult Date 04/07/19 Type of Consult Cardiology Requesting Provider: LILLIAN ZHANG MD Date/Time of Note DATE: 04/27/19 TIME: 14:56 24 HR Interval Summary Free Text/Dictation Patient remains on ventilator via tracheostomy. Per García RN, patient had si gnificant tracheostomy bleeding yesterday, the bleeding is much less today. at bedside. Patient is on a levophed drip. Subjective hx not possible: pt non-verbal Exam/Review of Systems Vital Signs Vitals Vital Signs Date Temp Pulse Resp B/P (MAP) Pulse Ox O2 O2 Flow FiO2 Time Delivery Rate 04/27/19 115 12:00 04/27/19 18 96 60 11:30 04/27/19 102/76 10:45 (85) 04/27/19 Mechanica 10:00 l Ventilato r 04/27/19 101.7 09:19 Intake and Output 04/26/19 04/26/19 04/27/19 1515:00 23:00 07:00 IntakeIntake Total 445.625 ml 360.000 ml 511.125 ml OutputOutput Total 2905 ml 0 ml 0 ml BalanceBalance -2459.375 ml 360.000 ml 511.125 ml Exam Constitutional: other (somnolent) Head: normocephalic, atraumatic Eyes: nl lids Neck: other (tracheostomy); No jvd, No bruits Respiratory: clear to auscultation Cardiovascular: regular rate and rhythm; No murmurs/extra sounds Gastrointestinal: soft, nl liver, spleen, non-tender Musculoskeletal: nl extremities to inspection Neurological: unresponsive Skin: other (No bleeding seen at the tracheostomy site) Labs Result Diagram: 04/27/19 0411 04/27/19 0411 Results 24hrs Laboratory Tests Test 04/26/19 17:41 04/26/19 20:50 04/27/19 00:23 04/27/19 04:11 Bedside Glucose 250 H 246 H 294 H White Blood Count 26.7 H Red Blood Count 4.10 L Hemoglobin 11.8 L Hematocrit 39.8 L Mean Corpuscular 97.1 Volume Mean Corpuscular 28.8 L Hemoglobin Mean Corpuscular 29.6 L Hemoglobin Concent Red Cell 19.2 H Distribution Width Platelet Count 692 #H Mean Platelet Volume 10.4 Immature 1.100 H Granulocytes % Neutrophils % Segmented 89 H Neutrophils % (Manual) Band Neutrophils % 2 (Manual) Lymphocytes % Lymphocytes % 4 L (Manual) Reactive Lymphocytes 1 H % (Manual) Monocytes % Monocytes % (Manual) 3 Eosinophils % Basophils % Basophils % (Manual) 1 Nucleated Red Blood 0.0 Cells % Immature 0.300 H Granulocytes # Neutrophils # Neutrophils # 23.9 H (Manual) Band Neutrophils # 0.5 Lymphocytes (Manual) 1.0 Lymphocytes # Reactive Lymphocytes 0.2 H # Monocytes # Monocytes # (Manual) 0.8 Eosinophils # Basophils # Basophils # (Manual) 0.2 H Nucleated Red Blood Cells # Pathologist YES Review (Hematology) Platelet Estimate INCREASED Giant Platelets 1 H Poikilocytosis 1+ Anisocytosis 1+ Macrocytosis 1+ Sodium Level 150 H Potassium Level 5.8 H Chloride Level 101 Carbon Dioxide Level 26 Anion Gap 23 #H Blood Urea Nitrogen 37 H Creatinine 6.03 H Est Glomerular 10 L Filtrat Rate mL/min Glucose Level 371 H Calcium Level 12.0 H Phosphorus Level 7.9 H Magnesium Level 3.0 H Test 04/27/19 05:24 04/27/19 10:19 04/27/19 14:32 Bedside Glucose 336 H 377 H 381 H Imaging Imaging telemetry shows sinus tach at 108 bpm Medications Medications Current Medications IV Flush (NS 3 ml) 3 ml PER PROTOCOL IV ; Start 03/29/19 at 13:30 Ondansetron HCl (Zofran Inj) 4 mg Q6H PRN IV NAUSEA/VOMITING Last administered on 04/07/19at 18:53; Admin Dose 4 MG; Start 03/29/19 at 13:30 Acetaminophen (Tylenol Tab) 650 mg Q6H PRN PO .PAIN 1-3 OR TEMP Last administered on 03/31/19 05:48; Admin Dose 650 MG; Start 03/29/19 at 13:30 Hydralazine HCl (Apresoline) 10 mg Q4H PRN IV sbp >185 Last administered on 04/18/19 14:27; Admin Dose 10 MG; Start 03/29/19 at 14:00 Miscellaneous Information 1 ea NOTE XX ; Start 03/29/19 at 14:30 Glucose (Glutose) 15 gm Q15M PRN PO DECREASED GLUCOSE; Start 03/29/19 at 14:30 Glucose (Glutose) 22.5 gm Q15M PRN PO DECREASED GLUCOSE; Start 03/29/19 at 14:30 Dextrose (D50w Syringe) 25 ml Q15M PRN IV DECREASED GLUCOSE Last administered on 04/13/19 05:56; Admin Dose 25 ML; Start 03/29/19 at 14:30; Status Hold Dextrose (D50w Syringe) 50 ml Q15M PRN IV DECREASED GLUCOSE; Start 03/29/19 at 14:30 Glucagon (Glucagen) 1 mg Q15M PRN IM DECREASED GLUCOSE; Start 03/29/19 at 14:30 Glucose (Glutose) 15 gm Q15M PRN BUCCAL DECREASED GLUCOSE; Start 03/29/19 at 14:30 Albumin Human 100 ml @ 100 mls/hr WITH DIALYSIS PRN IV SBP <90 DURING DIALYSIS Last administered on 04/26/19 08:36; Admin Dose 100 MLS/HR; Start 03/29/19 at 17:00 Albuterol/ Ipratropium (Duoneb) 3 ml Q2H RESP THERAPY PRN HHN WHEEZING AND RESP DISTRESS Last administered on 04/09/19 08:52; Admin Dose 3 ML; Start 03/29/19 at 18:00 Lorazepam (Ativan) 0.5 mg Q4H PRN IV AGITATION Last administered on 04/16/19 15:45; Admin Dose 0.5 MG; Start 03/29/19 at 18:00 IV Flush (NS 10 ml) 10 ml Q8 PRN IV IV PROTOCOL; Start 03/29/19 at 18:00 Labetalol HCl (Labetalol) 10 mg Q4H PRN IV sbp >160 Last administered on 04/20/19 21:32; Admin Dose 10 MG; Start 03/30/19 at 09:00 Haloperidol (Haldol) 5 mg Q6H PRN IM agitation Last administered on 03/31/19 00:10; Admin Dose 5 MG; Start 03/30/19 at 10:00 Heparin Sodium (Porcine) (Heparin (1000 Units/ml)) 3,200 unit AFTER DIALYSIS CATHETER Last administered on 04/26/19 11:56; Admin Dose 3,200 UNIT; Start 03/30/19 at 17:00 Atorvastatin Calcium (Lipitor) 40 mg HS NGT Last administered on 04/26/19 20:52; Admin Dose 40 MG; Start 03/31/19 at 21:00 Baclofen (Lioresal) 10 mg BID GTB Last administered on 04/27/19 09:18; Admin Dose 10 MG; Start 03/31/19 at 21:00 Doxazosin Mesylate (Cardura) 2 mg DAILY NGT Last administered on 04/22/19 14:17; Admin Dose 2 MG; Start 03/31/19 at 14:30 Gabapentin (Neurontin) 100 mg QHS PO Last administered on 04/26/19 20:53; Admin Dose 100 MG; Start 03/31/19 at 21:00 Acetaminophen (Tylenol Liquid) 650 mg Q4H PRN PEG MILD PAIN(1-3)OR ELEVATED TEMP Last administered on 04/27/19 09:19; Admin Dose 650 MG; Start 03/31/19 at 16:00 Lactobacillus Acidophilus/ Rhamnosus (Culturelle) 1 cap TID GTB Last administered on 04/27/19 14:46; Admin Dose 1 CAP; Start 04/02/19 at 13:00 Epoetin [place]-epbx (Retacrit (Esrd)) 10,000 unit MoWeFr@1700 SC Last administered on 04/24/19 18:07; Admin Dose 10,000 UNIT; Start 04/03/19 at 19:30 Lansoprazole (Prevacid) 30 mg BID@0600,1800 GTB Last administered on 04/27/19 05:25; Admin Dose 30 MG; Start 04/04/19 at 18:00 Multivit/Ca Carb/ B Cmplx/FA/Prenat ([place]arena-Geovanni) 1 tab DAILY GTB Last administered on 04/27/19 09:18; Admin Dose 1 TAB; Start 04/04/19 at 11:30 Aspirin (Aspirin) 81 mg DAILY PO Last administered on 04/27/19 09:18; Admin Dose 81 MG; Start 04/05/19 at 09:00 Fentanyl 100 ml @ 2.5 mls/hr TITRATE IV Last administered on 04/21/19 02:38; Admin Dose 4 MLS/HR; Start 04/08/19 at 00:00 Midazolam HCl 50 ml @ 1 mls/hr TITRATE PRN IV agitation Last administered on 04/26/19 10:31; Admin Dose 3 MLS/HR; Start 04/08/19 at 00:00 Norepinephrine 250 ml @ 1.875 mls/ hr TITRATE IV Last administered on 04/26/19 20:49; Admin Dose 3.75 MLS/HR; Start 04/08/19 at 00:00 Mupirocin (Bactroban) 1 applic BID TOP Last administered on 04/27/19 09:27; Admin Dose 1 APPLIC; Start 04/09/19 at 21:00 Budesonide (Pulmicort (Neb)) 0.5 mg BID RESP THERAPY HHN Last administered on 04/27/19 10:26; Admin Dose 0.5 MG; Start 04/12/19 at 09:00 Insulin Aspart (Novolog Insulin Pen) NOVOLOG *MILD* ALGORI... Q4 SC Last administered on 04/27/19 14:52; Admin Dose 7 UNIT; Start 04/13/19 at 09:00 Clopidogrel Bisulfate (plaVIX) 75 mg DAILY GTB Last administered on 04/27/19 09:18; Admin Dose 75 MG; Start 04/16/19 at 09:00 Quetiapine Fumarate (Seroquel) 50 mg QHS GTB Last administered on 04/26/19 20:52; Admin Dose 50 MG; Start 04/16/19 at 21:00 Losartan Potassium (Cozaar) 25 mg DAILY PO Last administered on 04/23/19 09:19; Admin Dose 25 MG; Start 04/17/19 at 09:00 Alteplase, Recombinant (Cathflo (Activase)) 2 mg MAY REPEAT X1 PRN CATHETER IF CATHETER REMAINS OCCULUDED Last administered on 04/17/19 11:21; Admin Dose 2 MG; Start 04/17/19 at 09:30 Albuterol (Ventolin Hfa) 4 puff Q6H RESP THERAPY INH Last administered on 04/27/19 13:51; Admin Dose 4 PUFF; Start 04/18/19 at 02:00 Ipratropium [place] (Atrovent Hfa) 4 puff Q6H RESP THERAPY INH Last administered on 04/27/19 13:51; Admin Dose 4 PUFF; Start 04/18/19 at 02:00 Docusate Sodium (Colace Liquid Cup) 100 mg BID PEG Last administered on 04/27/19 09:18; Admin Dose 100 MG; Start 04/20/19 at 23:00 Polyethylene Glycol (Miralax) 17 gm DAILY PEG Last administered on 04/27/19 09:18; Admin Dose 17 GM; Start 04/21/19 at 09:00 Nitroglycerin/ Dextrose 250 ml @ 1.5 mls/hr TITRATE IV Last administered on 04/21/19at 00:24; Admin Dose 1.5 MLS/HR; Start 04/21/19 at 00:30 Miscellaneous Information (Pending [facility] Order For Wound Care) This patient mcneal... PRN PRN XX WOUND CARE; Start 04/21/19 at 18:00 Carvedilol (Coreg) 3.125 mg QID NGT Last administered on 04/26/19at 20:53; Admin Dose 3.125 MG; Start 04/23/19 at 09:00 Metoclopramide HCl (Reglan) 5 mg Q6 IV Last administered on 04/27/19at 14:03; Admin Dose 5 MG; Start 04/24/19 at 12:00 Vancomycin HCl (Vanco Iv Per Pharmacy) VANCOMYCIN PER PHARMACY PER PROTOCOL XX ; Start 04/26/19 at 13:00 Insulin Glargine (Lantus) 20 units DAILY@0800 SC Last administered on 04/27/19at 10:23; Admin Dose 20 UNITS; Start 04/27/19 at 08:00 Miscellaneous Information (*Rx Drug Level Order Reminder*) RANDOM VANCO W/ AM LABS... 0500 ONCE XX ; Start 04/28/19 at 05:00; Stop 04/28/19 at 05:01 Morphine Sulfate (morphine) 2 mg Q2H PRN IV SEVERE PAIN LEVEL 7-10; Start 04/27/19 at 09:30 Amikacin Sulfate (Amikacin Iv Per Pharmacy) AMIKACIN PER PHARMACY NOTE XX ; Start 04/27/19 at 11:00 Metronidazole (Flagyl) 250 mg Q6 GTB Last administered on 04/27/19at 14:03; Admin Dose 250 MG; Start 04/27/19 at 12:00 Amikacin Sulfate 450 mg/Sodium Chloride 101.8 ml @ 102 mls/hr ONCE@1300 IVPB Last administered on 04/27/19at 14:46; Admin Dose 102 MLS/HR; Start 04/27/19 at 13:00; Stop 04/27/19 at 19:00 Amikacin Sulfate 300 mg/Sodium Chloride 101.2 ml @ 102 mls/hr AFTER DIALYSIS IVPB ; Start 04/28/19 at 12:00 JUANA GUZMAN Apr 27, 2019 15:02
[2019-04-27] MEDS: NORepinephrine 8MG/250 ML (PMX 250 ML IV SCH (15:38)
[2019-04-27] MEDS ORDERED: INSULIN GLARGINE [LANTus] (100 UNITS/ML) SYG SC ONE (16:30)
[2019-04-27] MEDS: ATORVASTATIN 40 MG TAB NGT SCH (20:55)
[2019-04-27] MEDS: GABAPENTIN 100 MG CAP PO SCH (20:55)
[2019-04-27] MEDS: QUETIAPINE 25 MG TAB GTB SCH (20:55)
[2019-04-27] MEDS: ALTEPLASE (CATHFLO) 2 MG INJ CATHETER PRN ×2 (21:51→22:52)
[2019-04-27] MEDS ORDERED: INSULIN HUMAN REGULAR 100 UNIT in SOD CHLORIDE 0.9% 99 ML IV SCH (22:30)
[2019-04-27] MEDS ORDERED: DEXTROSE 50% 50 ML SYRINGE IV PRN ×2 (22:30)
[2019-04-27] MEDS: ACCU-CHEK XX SCH ×2 (23:20→23:21)
[2019-04-28] VITALS (78 sets, daily range): BP systolic 42–207; BP diastolic 30–123; PULSE 69–200; RESP 0–34
[2019-04-28] MEDS: ACCU-CHEK XX SCH ×13 (00:10→11:38)
[2019-04-28] MEDS: metroNIDAZOLE 250 MG TAB GTB SCH ×3 (00:16→11:38)
[2019-04-28] MEDS: METOCLOPRAMIDE 10 MG INJ IV SCH ×3 (00:16→11:38)
[2019-04-28] MEDS: ALBUTEROL HFA 8 GM INHALER INH SCH ×2 (02:05→07:16)
[2019-04-28] MEDS: IPRATROPIUM (HFA) 12.9 GM INHALER INH SCH ×2 (02:05→07:16)
[2019-04-28] MEDS: NORepinephrine 8MG/250 ML (PMX 250 ML IV SCH ×2 (02:42→06:25)
[2019-04-28] MEDS: PHENYLephrine 40 MG in DEXTROSE 5% 246 ML IV SCH ×3 (05:00→12:03)
[2019-04-28] MEDS ORDERED: SOD CHLORIDE 0.9% 500 ML IV ONE (05:00)
[2019-04-28] MEDS: EPINEPHrine 4 MG in DEXTROSE 5% 246 ML IV SCH ×2 (05:30→11:03)
[2019-04-28] MEDS: LANSOPRAZOLE 30 MG CAP GTB SCH (06:12)
[2019-04-28] MEDS ORDERED: INSULIN GLARGINE [LANTus] (100 UNITS/ML) SYG SC SCH (08:00)
[2019-04-28] MEDS: BUDESONIDE (NEB) 0.5MG/2ML AMP HHN SCH (08:26)
[2019-04-28] MEDS: DOXAZOSIN 2 MG TAB NGT SCH (09:00)
[2019-04-28] MEDS: DOCUSATE SODIUM 10 MG/ML (10ML CUP) PEG SCH (09:56)
[2019-04-28] MEDS: CLOPIDOGREL 75 MG TAB GTB SCH (09:57)
[2019-04-28] MEDS: LACTOBACILLUS RHAMNOSUS CAP GTB SCH (09:57)
[2019-04-28] MEDS: MULTIVIT/CA CARB/B CMPLX/FA TAB GTB SCH (09:57)
[2019-04-28] MEDS: ASPIRIN 81 MG TAB PO SCH (09:57)
[2019-04-28] MEDS: BACLOFEN 10 MG TAB GTB SCH (09:57)
[2019-04-28] MEDS: BALSAM PERU/CASTOR OIL 60 GM TUBE TOP SCH (09:59)
[2019-04-28] MEDS: MUPIROCIN 2% 22 GM OINT TOP SCH (09:59)
--- NOTE | 2019-04-28 10:24 | PN ---
Date/Time of Note Date/Time of Note DATE: 04/28/19 TIME: 10:23 Assessment/Plan Lines/Catheters IV Catheter Type (from Nrsg): PERMACATH Winters in Place (from Nrsg): No Assessment/Plan Assessment/Plan Status post tracheostomy No signs of active bleeding Continue vent support Tracheostomy care Pulmonary toilet Subjective 24 Hr Interval Summary Constitutional: improved Pain Control: mild Exam/Review of Systems Vital Signs Vitals Vital Signs Date Temp Pulse Resp B/P (MAP) Pulse Ox O2 O2 Flow FiO2 Time Delivery Rate 04/28/19 128 16 105/66 95 08:15 (79) 04/28/19 98.6 Mechanical 08:00 Ventilator 04/28/19 100 08:00 Intake and Output 04/27/19 04/27/19 04/28/19 1515:00 23:00 07:00 IntakeIntake Total 325.025 ml 411.665 ml 1014.500 ml OutputOutput Total 0 ml 0 ml 0 ml BalanceBalance 325.025 ml 411.665 ml 1014.500 ml Exam ENMT: nl external ears & nose, nl lips & teeth, nl nasal mucosa & septum, mucosa pink and moist Neck: supple, non-tender Respiratory: clear to auscultation, normal air movement Cardiovascular: regular rate and rhythm, nl pulses Gastrointestinal: soft, nl liver, spleen, non-tender Musculoskeletal: nl extremities to inspection, nl gait and stance Results Result Diagram: 04/28/19 0507 04/28/19 0507 NICOLA TERRY MD Apr 28, 2019 10:24
--- NOTE | 2019-04-28 10:25 | PN ---
Date/Time of Note Date/Time of Note DATE: 04/27/19 TIME: 10:24 Assessment/Plan Lines/Catheters IV Catheter Type (from Nrs): PERMACATH Winters in Place (from Nrsg): No Assessment/Plan Assessment/Plan Status post tracheostomy No signs of active bleeding Continue vent support Tracheostomy care Pulmonary toilet Exam/Review of Systems Vital Signs Vitals Vital Signs Date Temp Pulse Resp B/P (MAP) Pulse Ox O2 O2 Flow FiO2 Time Delivery Rate 04/28/19 128 16 105/66 95 08:15 (79) 04/28/19 98.6 Mechanical 08:00 Ventilator 04/28/19 100 08:00 Intake and Output 04/27/19 04/27/19 04/28/19 1515:00 23:00 07:00 IntakeIntake Total 325.025 ml 411.665 ml 1014.500 ml OutputOutput Total 0 ml 0 ml 0 ml BalanceBalance 325.025 ml 411.665 ml 1014.500 ml Exam Neck: supple, non-tender Respiratory: clear to auscultation, normal air movement Results Result Diagram: 04/28/19 0507 04/28/19 0507 NICOLA TERRY MD Apr 28, 2019 10:25
--- NOTE | 2019-04-28 10:32 | CONS ---
Consult Date/Type/Reason Admit Date/Time Mar 29, 2019 at 13:16 Initial Consult Date 04/07/19 Type of Consult Pulmonary Requesting Provider: LILLIAN ZHANG MD Date/Time of Note DATE: 04/28/19 TIME: 10:12 Subjective Cardiopulmonary arrest overnight. PEA and v tach status post CPR now on epinephrine and Synephrine drip. Now unresponsive on mechanical ventilation with fixed pupils Objective Vital Signs Date Temp Pulse Resp B/P (MAP) Pulse Ox O2 O2 Flow FiO2 Time Delivery Rate 04/28/19 128 16 105/66 95 08:15 (79) 04/28/19 98.6 Mechanical 08:00 Ventilator 04/28/19 100 08:00 Intake and Output 04/27/19 04/27/19 04/28/19 1515:00 23:00 07:00 IntakeIntake Total 325.025 ml 411.665 ml 1014.500 ml OutputOutput Total 0 ml 0 ml 0 ml BalanceBalance 325.025 ml 411.665 ml 1014.500 ml Exam GENERAL: Elderly appearing gentleman on mechanical ventilation via tracheostomy. Epinephrine drip and Ricardo-Synephrine VITAL SIGNS: per chart NECK: Supple. No JVD or lymphadenopathy. Pupils fixed and dilated CARDIAC EXAM: S1, S2. No added sounds or murmurs. CHEST: Diminished air entry bilaterally ABDOMEN: Soft, nontender. No guarding or rebound. EXTREMITIES: No cyanosis, clubbing or edema. NEUROLOGIC: Generalized weakness. Unable to assess Vent Setting Ventilator Support Mode: AC Fraction of Inspired Oxygen pe: 100 Positive End Expiratory Pressu: 8.0 Results/Medications Result Diagram: 04/28/19 0507 04/28/19 0507 Results 24 hrs Laboratory Tests Test 04/27/19 10:19 04/27/19 14:32 04/27/19 18:07 04/27/19 20:53 Bedside Glucose 377 H 381 H 330 H 370 H Test 04/27/19 21:32 04/27/19 23:12 04/28/19 00:09 04/28/19 01:03 Sodium Level 149 H Potassium Level 4.7 Chloride Level 103 Carbon Dioxide 22 Level Anion Gap 24 H Blood Urea 59 H Nitrogen Creatinine 7.58 H Est Glomerular 7 L Filtrat Rate mL/min Glucose Level 431 *H Calcium Level 12.0 H Bedside Glucose 343 H 349 H 305 H Test 04/28/19 02:17 04/28/19 02:49 04/28/19 03:33 04/28/19 04:24 Bedside Glucose 244 H 220 183 Blood Gas Blood arterial Specimen Source Arterial Blood 04/28/2019 4:30:2 Date Drawn 1 AM Arterial Blood pH 7.341 L (Temp corrected) Arterial Blood 45.7 H pCO2 (Temp correct) Arterial Blood 55.3 L pO2 (Temp corrected) Arterial Blood 24.2 HCO3 Arterial Blood -1.8 Base Excess Arterial Blood 82.5 L Oxygen Saturation Santino Test N/A Arterial Blood Right Brachial Gas Puncture Site Arterial 0.5 Blood Carboxyhemo globin Arterial Blood 0.2 Methemoglobin Blood Gas A-a O2 394.7 H Differential Oxyhemoglobin 81.9 L Percent Blood Gas 37.0 Temperature Blood Gas 16.0 Respiration Rate Blood Gas Actual 16 Respiration Rate Blood Gas VENT - AC Modality FiO2 70.0 Blood Gas Tidal 500.0 Volume Blood Gas Low 5.0 PEEP Setting Blood Gas D LARON RANGEL Critical Value Read Back Blood Gas KB Notified Whom Blood Gas 04/28/2019 4:45:3 Notified Time 8 AM Test 04/28/19 04:28 04/28/19 05:07 04/28/19 05:11 04/28/19 06:05 Bedside Glucose 149 140 139 White Blood Count 28.1 H Red Blood Count 3.89 L Hemoglobin 11.3 L Hematocrit 38.0 L Mean Corpuscular 97.7 Volume Mean Corpuscular 29.0 Hemoglobin Mean Corpuscular 29.7 L Hemoglobin Concen t Red Cell 18.9 H Distribution Width Platelet Count 709 H Mean Platelet 10.2 Volume Immature 2.800 H Granulocytes % Neutrophils % 79.6 H Lymphocytes % 10.6 L Monocytes % 4.9 Eosinophils % 1.1 Basophils % 1.0 Nucleated Red 0.2 H Blood Cells % Immature 0.790 H Granulocytes # Neutrophils # 22.4 H Lymphocytes # 3.0 H Monocytes # 1.4 H Eosinophils # 0.3 Basophils # 0.3 H Nucleated Red 0.1 H Blood Cells # Sodium Level 154 H Potassium Level 4.2 Chloride Level 109 Carbon Dioxide 23 Level Anion Gap 22 H Blood Urea 65 H Nitrogen Creatinine 7.60 H Est Glomerular 7 L Filtrat Rate mL/min Glucose Level 126 # Calcium Level 11.3 H Phosphorus Level 7.5 H Magnesium Level 3.0 H Troponin I 0.079 Random Vancomycin 24.3 Level Test 04/28/19 06:48 04/28/19 07:39 04/28/19 09:29 Bedside Glucose 154 155 152 Medications Current Medications IV Flush (NS 3 ml) 3 ml PER PROTOCOL IV ; Start 03/29/19 at 13:30 Ondansetron HCl (Zofran Inj) 4 mg Q6H PRN IV NAUSEA/VOMITING Last administered on 04/07/19at 18:53; Admin Dose 4 MG; Start 03/29/19 at 13:30 Acetaminophen (Tylenol Tab) 650 mg Q6H PRN PO .PAIN 1-3 OR TEMP Last administered on 03/31/19at 05:48; Admin Dose 650 MG; Start 03/29/19 at 13:30 Hydralazine HCl (Apresoline) 10 mg Q4H PRN IV sbp >185 Last administered on 04/18/19at 14:27; Admin Dose 10 MG; Start 03/29/19 at 14:00 Miscellaneous Information 1 ea NOTE XX ; Start 03/29/19 at 14:30 Glucose (Glutose) 15 gm Q15M PRN PO DECREASED GLUCOSE; Start 03/29/19 at 14:30 Glucose (Glutose) 22.5 gm Q15M PRN PO DECREASED GLUCOSE; Start 03/29/19 at 14:3 0 Dextrose (D50w Syringe) 25 ml Q15M PRN IV DECREASED GLUCOSE Last administered on 04/13/19at 05:56; Admin Dose 25 ML; Start 03/29/19 at 14:30; Status Hold Dextrose (D50w Syringe) 50 ml Q15M PRN IV DECREASED GLUCOSE; Start 03/29/19 at 14:30 Glucagon (Glucagen) 1 mg Q15M PRN IM DECREASED GLUCOSE; Start 03/29/19 at 14:30 Glucose (Glutose) 15 gm Q15M PRN BUCCAL DECREASED GLUCOSE; Start 03/29/19 at 14:30 Albumin Human 100 ml @ 100 mls/hr WITH DIALYSIS PRN IV SBP <90 DURING DIALYSIS Last administered on 04/26/19at 08:36; Admin Dose 100 MLS/HR; Start 03/29/19 at 17:00 Albuterol/ Ipratropium (Duoneb) 3 ml Q2H RESP THERAPY PRN HHN WHEEZING AND RESP DISTRESS Last administered on 04/09/19 08:52; Admin Dose 3 ML; Start 03/29/19 at 18:00 Lorazepam (Ativan) 0.5 mg Q4H PRN IV AGITATION Last administered on 04/16/19 15:45; Admin Dose 0.5 MG; Start 03/29/19 at 18:00 IV Flush (NS 10 ml) 10 ml Q8 PRN IV IV PROTOCOL; Start 03/29/19 at 18:00 Labetalol HCl (Labetalol) 10 mg Q4H PRN IV sbp >160 Last administered on 04/20/19 21:32; Admin Dose 10 MG; Start 03/30/19 at 09:00 Haloperidol (Haldol) 5 mg Q6H PRN IM agitation Last administered on 03/31/19 00:10; Admin Dose 5 MG; Start 03/30/19 at 10:00 Heparin Sodium (Porcine) (Heparin (1000 Units/ml)) 3,200 unit AFTER DIALYSIS CATHETER Last administered on 04/26/19 11:56; Admin Dose 3,200 UNIT; Start 03/30/19 at 17:00 Atorvastatin Calcium (Lipitor) 40 mg HS NGT Last administered on 04/27/19 20:55; Admin Dose 40 MG; Start 03/31/19 at 21:00 Baclofen (Lioresal) 10 mg BID GTB Last administered on 04/28/19 09:57; Admin Dose 10 MG; Start 03/31/19 at 21:00 Doxazosin Mesylate (Cardura) 2 mg DAILY NGT Last administered on 04/22/19 14:17; Admin Dose 2 MG; Start 03/31/19 at 14:30 Gabapentin (Neurontin) 100 mg QHS PO Last administered on 04/27/19 20:55; Admin Dose 100 MG; Start 03/31/19 at 21:00 Acetaminophen (Tylenol Liquid) 650 mg Q4H PRN PEG MILD PAIN(1-3)OR ELEVATED TEMP Last administered on 04/27/19 09:19; Admin Dose 650 MG; Start 03/31/19 at 16:00 Lactobacillus Acidophilus/ Rhamnosus (Culturelle) 1 cap TID GTB Last administ ered on 04/28/19 09:57; Admin Dose 1 CAP; Start 04/02/19 at 13:00 Epoetin [place]-epbx (Retacrit (Esrd)) 10,000 unit MoWeFr@1700 SC Last administered on 04/24/19 18:07; Admin Dose 10,000 UNIT; Start 04/03/19 at 19:30 Lansoprazole (Prevacid) 30 mg BID@0600,1800 GTB Last administered on 04/28/19 06:12; Admin Dose 30 MG; Start 04/04/19 at 18:00 Multivit/Ca Carb/ B Cmplx/FA/Prenat (Karena-Geovanni) 1 tab DAILY GTB Last administered on 04/28/19 09:57; Admin Dose 1 TAB; Start 04/04/19 at 11:30 Aspirin (Aspirin) 81 mg DAILY PO Last administered on 04/28/19 09:57; Admin Dose 81 MG; Start 04/05/19 at 09:00 Fentanyl 100 ml @ 2.5 mls/hr TITRATE IV Last administered on 04/21/19 02:38; Admin Dose 4 MLS/HR; Start 04/08/19 at 00:00 Midazolam HCl 50 ml @ 1 mls/hr TITRATE PRN IV agitation Last administered on 04/26/19 10:31; Admin Dose 3 MLS/HR; Start 04/08/19 at 00:00 Norepinephrine 250 ml @ 1.875 mls/ hr TITRATE IV Last administered on 04/28/19 06:25; Admin Dose 18.75 MLS/HR; Start 04/08/19 at 00:00 Mupirocin (Bactroban) 1 applic BID TOP Last administered on 04/28/19 09:59; Admin Dose 1 APPLIC; Start 04/09/19 at 21:00 Budesonide (Pulmicort (Neb)) 0.5 mg BID RESP THERAPY HHN Last administered on 04/28/19 08:26; Admin Dose 0.5 MG; Start 04/12/19 at 09:00 Insulin Aspart (Novolog Insulin Pen) NOVOLOG *MILD* ALGORI... Q4 SC Last administered on 04/27/19 20:58; Admin Dose 7 UNIT; Start 04/13/19 at 09:00; Status Hold Clopidogrel Bisulfate (plaVIX) 75 mg DAILY GTB Last administered on 04/28/19 09:57; Admin Dose 75 MG; Start 04/16/19 at 09:00 Quetiapine Fumarate (Seroquel) 50 mg QHS GTB Last administered on 04/27/19at 20:55; Admin Dose 50 MG; Start 04/16/19 at 21:00 Alteplase, Recombinant (Cathflo (Activase)) 2 mg MAY REPEAT X1 PRN CATHETER IF CATHETER REMAINS OCCULUDED Last administered on 04/27/19at 22:52; Admin Dose 2 MG; Start 04/17/19 at 09:30 Albuterol (Ventolin Hfa) 4 puff Q6H RESP THERAPY INH Last administered on 04/28/19 07:16; Admin Dose 4 PUFF; Start 04/18/19 at 02:00 Ipratropium Amery (Atrovent Hfa) 4 puff Q6H RESP THERAPY INH Last administered on 04/28/19 07:16; Admin Dose 4 PUFF; Start 04/18/19 at 02:00 Docusate Sodium (Colace Liquid Cup) 100 mg BID PEG Last administered on 04/28/19 09:56; Admin Dose 100 MG; Start 04/20/19 at 23:00 Nitroglycerin/ Dextrose 250 ml @ 1.5 mls/hr TITRATE IV Last administered on 04/21/19at 00:24; Admin Dose 1.5 MLS/HR; Start 04/21/19 at 00:30 Miscellaneous Information (Pending Santyl Order For Wound Care) This patient mcneal... PRN PRN XX WOUND CARE; Start 04/21/19 at 18:00 Metoclopramide HCl (Reglan) 5 mg Q6 IV Last administered on 04/28/19at 06:12; Admin Dose 5 MG; Start 04/24/19 at 12:00 Vancomycin HCl (Vanco Iv Per Pharmacy) VANCOMYCIN PER PHARMACY PER PROTOCOL XX ; Start 04/26/19 at 13:00 Morphine Sulfate (morphine) 2 mg Q2H PRN IV SEVERE PAIN LEVEL 7-10; Start 04/27/19 at 09:30 Amikacin Sulfate (Amikacin Iv Per Pharmacy) AMIKACIN PER PHARMACY NOTE XX ; Start 04/27/19 at 11:00 Metronidazole (Flagyl) 250 mg Q6 GTB Last administered on 04/28/19at 06:12; Admin Dose 250 MG; Start 04/27/19 at 12:00 Amikacin Sulfate 300 mg/Sodium Chloride 101.2 ml @ 102 mls/hr AFTER DIALYSIS IVPB ; Start 04/28/19 at 12:00 Diagnostic Test (Pha) (Accu-Chek) 1 ea Q1H XX Last administered on 04/28/19at 06:54; Admin Dose 1 EA; Start 04/27/19 at 22:30 Insulin Human Regular 100 unit/ Sodium Chloride 100 ml @ 0 mls/hr PER PROTOCOL IV Last administered on 04/27/19at 23:20; Admin Dose 4 MLS/HR; Start 04/27/19 at 22:30 Miscellaneous Information (* Miscellaneous Pharmacy Order) Treatment of Hypoglycemia: 1.BG 51... Per protocol XX ; Start 04/27/19 at 22:30 Dextrose (D50w Syringe) 25 ml Q15M PRN IV .DECREASED GLUCOSE; Start 04/27/19 at 22:30 Dextrose (D50w Syringe) 50 ml Q15M PRN IV .DECREASED GLUCOSE; Start 04/27/19 at 22:30 Phenylephrine HCl 40 mg/Dextrose 250 ml @ 37.5 mls/hr TITRATE IV Last administered on 04/28/19at 07:34; Admin Dose 75 MLS/HR; Start 04/28/19 at 04:00 Epinephrine 4 mg/ Dextrose 250 ml @ 3.75 mls/hr TITRATE IV Last administered on 04/28/19at 05:30; Admin Dose 18.75 MLS/HR; Start 04/28/19 at 05:30 Vancomycin HCl 250 ml @ 125 mls/hr Q24H IVPB ; Start 04/29/19 at 11:00; Stop 04/29/19 at 23:59 Assessment/Plan Hospital Course (Demo Recall) iMP: 1. Respiratory Failure/Ventilator Dependence 2. Septic shock with persistent leukocytosis and fevers 3. Chronic renal insufficiency on hemodialysis 4. Anemia likely of chronic disease 5. No cardiopulmonary arrest likely primary cardiac event with probable very severe anoxic brain injury. RECS: 1. Ventilator support--continue mechanical ventilation 3. HD/UD. 4. Anti-seizure medications. 5. DVT and GI prophylaxis. 6. Continues vasopressors. Long discussion with family regarding cardiopulmonary arrest and likely very severe anoxic brain injury. Currently requiring epinephrine drip. Family requesting CODE STATUS be changed to DNR They are considering transition to comfort care. Critical care time 40 minutes. SAMMI MOSES MD, [facility] Apr 28, 2019 10:23
--- NOTE | 2019-04-28 10:48 | CONS ---
Assessment/Plan Assessment/Plan Hospital Course (Demo Recall) ID PROGRESS NOTE CURRENT ABX: DAY # 3 =>RESTARTED 04/26/19 Vanco IV #3 + Amikacin #2 + Flagyl #2 s/p + Merrem #2 04/28/19 0507 04/28/19 0507 24H INTERVAL SUMMARY * FEVERS RESOLVED TODAY AFTER ABX restarted for SIRS w/ TMAx 101.7 WBC 26.7-> now 28.1 * == possible recurrent ASP PNA ? vs opportunistic infection ?Urine? * POD #2 --> s/p Trach placement w/bleeding at trach site improved * Indwelling's: trach, chest PermCath, PEG, Winters, PICC line DIAGNOSTIC IMAGING * 04/27/19 CXR: 1. Interval improvement of left lower lobe consolidation consistent with improved atelectasis.2. Persistent consolidation at the right base may all be due to atelectasis still rule out pneumonia. 3. Tiny left pleural effusion. 4. Unremarkable tracheostomy, right central venous catheter and left PICC line. PROCEDURES * -EGD 04/03/2019 Moderate distal esophagitis. Gastrostomy tube in place. Gastritis -biopsies are negative for H. pylori. Duodenitis. * Colonoscopy 04/03/2019 8 sessile polyp in the cecum. Snared and retrieved. -Tubular adenoma 6 mm sessile polyp ascending colon. Snared and retrieved. -Tubular adenoma 6 mm sessile polyp sigmoid. Snared and retrieved. -Tubular adenoma 20 mm sessile polyp sigmoid. Saline assisted lipectomy plus localization tattoo. Moderate-sized internal hemorrhoids. MICRO * BCx(-) * 04/07/19 BCx (-) * 04/08/19 Sputum (+) GNR x2 RESPIRATORY CULTURE Final Organism 1 K PNEUMO ESBL QUANTITY 2+ . MULTI DRUG RESISTANT ORGANISM Organism 2 SERRATIA MARCESCENS QUANTITY 2+ KLEB PNEUM KLEB PNEUM S MARCESCE M.I.C. RX M.I.C. RX M.I.C. RX --------- --- --------- --- --------- --- AMIKACIN <=2 S CEFAZOLIN R CEFEPIME 2 S CEFOTAXIME R S CIPROFLOXACIN 2 I <=0.25 S GENTAMICIN >=16 R <=1 S LEVOFLOXACIN 1 S <=0.12 S MEROPENEM 0.032 S TOBRAMYCIN >=16 R <=1 S TRIMETHOPRIM/SULFAMETHOXAZOLE >=320 R <=20 S PIPERACILLIN/TAZOBACTAM 16 S PHYSICAL EXAMINATION: GENERAL: VSS, NAD HEENT: AT, NC, NECK: Supple, CHEST: Rise symmetrical HEART: Pulse RRR ABDOMEN: Benign EXTREMITIES: Warm, dry SKIN: No rash, no diaphoresis ID ASSESSMENT 58 yo M admit with: 1. Sepsis w/fevers, leukocytosis 2. Acute hypoxic respiratory failure => s/p Trach placement 04/26/19 3. Aspiration GNR HCAP 4. Encephalopathy, possible acute on chronic CVA 5. End-stage renal disease, hemodialysis dependent 6. Dysphagia-> PEG 7. Liquid diarrhea on current ABX 8. Anemia -> GI work-up Moderate Distal Esophagitis/Gastritis/Internal Hemorrhoids (+)MRSA Nares ->Bactroban ABX ALLERGIES: KNDA INVASIVES: Trach, chest PermCath, PEG, Winters, PICC line CURRENT ABX: DAY # 3 =>ABX RESTARTED 04/26/19 Vanco IV #3 + Amikacin #2 + Flagyl #2 s/p + Merrem #2 s/p Amikacin # + Flagyl # S/P Vanco IV + Zosyn ID RECOMMENDATIONS/PLAN: 1. ABX restarted for fevers, aspiration pna post TRACH == * FEVERS RESOLVED TODAY AFTER ABX restarted for SIRS w/ TMAx 101.7 WBC 26.7-> now 28.1 2/ Checking UA, urine cx, resp cx -- changed Merrem to Amikacin + Flagyl = narrow ABX spectrum to avoid opportunistic pathogens . Consultation Date/Type/Reason Admit Date/Time Mar 29, 2019 at 13:16 Initial Consult Date 04/07/19 Requesting Provider: LILLIAN ZHANG MD Date/Time of Note DATE: 04/28/19 TIME: 10:44 Exam/Review of Systems Exam Vitals Vital Signs Date Temp Pulse Resp B/P (MAP) Pulse Ox O2 O2 Flow FiO2 Time Delivery Rate 04/28/19 100 10:32 04/28/19 128 16 105/66 95 08:15 (79) 04/28/19 98.6 Mechanical 08:00 Ventilator Intake and Output 04/27/19 04/27/19 04/28/19 1515:00 23:00 07:00 IntakeIntake Total 325.025 ml 411.665 ml 1014.500 ml OutputOutput Total 0 ml 0 ml 0 ml BalanceBalance 325.025 ml 411.665 ml 1014.500 ml Results Result Diagram: 04/28/19 0507 04/28/19 0507 Results 24hrs Laboratory Tests Test 04/27/19 14:32 04/27/19 18:07 04/27/19 20:53 04/27/19 21:32 Bedside Glucose 381 H 330 H 370 H Sodium Level 149 H Potassium Level 4.7 Chloride Level 103 Carbon Dioxide 22 Level Anion Gap 24 H Blood Urea 59 H Nitrogen Creatinine 7.58 H Est Glomerular 7 L Filtrat Rate mL/min Glucose Level 431 *H Calcium Level 12.0 H Test 04/27/19 23:12 04/28/19 00:09 04/28/19 01:03 04/28/19 02:17 Bedside Glucose 343 H 349 H 305 H 244 H Test 04/28/19 02:49 04/28/19 03:33 04/28/19 04:24 04/28/19 04:28 Bedside Glucose 220 183 149 Blood Gas Blood arterial Specimen Source Arterial Blood 04/28/2019 4:30:2 Date Drawn 1 AM Arterial Blood pH 7.341 L (Temp corrected) Arterial Blood 45.7 H pCO2 (Temp correct) Arterial Blood 55.3 L pO2 (Temp corrected) Arterial Blood 24.2 HCO3 Arterial Blood -1.8 Base Excess Arterial Blood 82.5 L Oxygen Saturation Santino Test N/A Arterial Blood Right Brachial Gas Puncture Site Arterial 0.5 Blood Carboxyhemo globin Arterial Blood 0.2 Methemoglobin Blood Gas A-a O2 394.7 H Differential Oxyhemoglobin 81.9 L Percent Blood Gas 37.0 Temperature Blood Gas 16.0 Respiration Rate Blood Gas Actual 16 Respiration Rate Blood Gas VENT - AC Modality FiO2 70.0 Blood Gas Tidal 500.0 Volume Blood Gas Low 5.0 PEEP Setting Blood Gas D LARON RANGEL Critical Value Read Back Blood Gas KB Notified Whom Blood Gas 04/28/2019 4:45:3 Notified Time 8 AM Test 04/28/19 05:07 04/28/19 05:11 04/28/19 06:05 04/28/19 06:48 White Blood Count 28.1 H Red Blood Count 3.89 L Hemoglobin 11.3 L Hematocrit 38.0 L Mean Corpuscular 97.7 Volume Mean Corpuscular 29.0 Hemoglobin Mean Corpuscular 29.7 L Hemoglobin Concen t Red Cell 18.9 H Distribution Width Platelet Count 709 H Mean Platelet 10.2 Volume Immature 2.800 H Granulocytes % Neutrophils % 79.6 H Lymphocytes % 10.6 L Monocytes % 4.9 Eosinophils % 1.1 Basophils % 1.0 Nucleated Red 0.2 H Blood Cells % Immature 0.790 H Granulocytes # Neutrophils # 22.4 H Lymphocytes # 3.0 H Monocytes # 1.4 H Eosinophils # 0.3 Basophils # 0.3 H Nucleated Red 0.1 H Blood Cells # Sodium Level 154 H Potassium Level 4.2 Chloride Level 109 Carbon Dioxide 23 Level Anion Gap 22 H Blood Urea 65 H Nitrogen Creatinine 7.60 H Est Glomerular 7 L Filtrat Rate mL/min Glucose Level 126 # Calcium Level 11.3 H Phosphorus Level 7.5 H Magnesium Level 3.0 H Troponin I 0.079 Random Vancomycin 24.3 Level Hepatitis B NEGATIVE Surface Antigen Bedside Glucose 140 139 154 Test 04/28/19 07:39 04/28/19 09:29 Bedside Glucose 155 152 Medications Medication Current Medications IV Flush (NS 3 ml) 3 ml PER PROTOCOL IV ; Start 03/29/19 at 13:30 Ondansetron HCl (Zofran Inj) 4 mg Q6H PRN IV NAUSEA/VOMITING Last administered on 04/07/19at 18:53; Admin Dose 4 MG; Start 03/29/19 at 13:30 Acetaminophen (Tylenol Tab) 650 mg Q6H PRN PO .PAIN 1-3 OR TEMP Last administered on 03/31/19at 05:48; Admin Dose 650 MG; Start 03/29/19 at 13:30 Hydralazine HCl (Apresoline) 10 mg Q4H PRN IV sbp >185 Last administered on 04/18/19at 14:27; Admin Dose 10 MG; Start 03/29/19 at 14:00 Miscellaneous Information 1 ea NOTE XX ; Start 03/29/19 at 14:30 Glucose (Glutose) 15 gm Q15M PRN PO DECREASED GLUCOSE; Start 03/29/19 at 14:30 Glucose (Glutose) 22.5 gm Q15M PRN PO DECREASED GLUCOSE; Start 03/29/19 at 14:30 Dextrose (D50w Syringe) 25 ml Q15M PRN IV DECREASED GLUCOSE Last administered on 04/13/19at 05:56; Admin Dose 25 ML; Start 03/29/19 at 14:30; Status Hold Dextrose (D50w Syringe) 50 ml Q15M PRN IV DECREASED GLUCOSE; Start 03/29/19 at 14:30 Glucagon (Glucagen) 1 mg Q15M PRN IM DECREASED GLUCOSE; Start 03/29/19 at 14:30 Glucose (Glutose) 15 gm Q15M PRN BUCCAL DECREASED GLUCOSE; Start 03/29/19 at 14:30 Albumin Human 100 ml @ 100 mls/hr WITH DIALYSIS PRN IV SBP <90 DURING DIALYSIS Last administered on 04/26/19at 08:36; Admin Dose 100 MLS/HR; Start 03/29/19 at 17:00 Albuterol/ Ipratropium (Duoneb) 3 ml Q2H RESP THERAPY PRN HHN WHEEZING AND RESP DISTRESS Last administered on 04/09/19 08:52; Admin Dose 3 ML; Start 03/29/19 at 18:00 Lorazepam (Ativan) 0.5 mg Q4H PRN IV AGITATION Last administered on 04/16/19at 15:45; Admin Dose 0.5 MG; Start 03/29/19 at 18:00 IV Flush (NS 10 ml) 10 ml Q8 PRN IV IV PROTOCOL; Start 03/29/19 at 18:00 Labetalol HCl (Labetalol) 10 mg Q4H PRN IV sbp >160 Last administered on 04/20/19at 21:32; Admin Dose 10 MG; Start 03/30/19 at 09:00 Haloperidol (Haldol) 5 mg Q6H PRN IM agitation Last administered on 03/31/19 00:10; Admin Dose 5 MG; Start 03/30/19 at 10:00 Heparin Sodium (Porcine) (Heparin (1000 Units/ml)) 3,200 unit AFTER DIALYSIS CATHETER Last administered on 04/26/19 11:56; Admin Dose 3,200 UNIT; Start 03/30/19 at 17:00 Atorvastatin Calcium (Lipitor) 40 mg HS NGT Last administered on 04/27/19 20:55; Admin Dose 40 MG; Start 03/31/19 at 21:00 Baclofen (Lioresal) 10 mg BID GTB Last administered on 04/28/19 09:57; Admin Dose 10 MG; Start 03/31/19 at 21:00 Doxazosin Mesylate (Cardura) 2 mg DAILY NGT Last administered on 04/22/19 14:17; Admin Dose 2 MG; Start 03/31/19 at 14:30 Gabapentin (Neurontin) 100 mg QHS PO Last administered on 04/27/19 20:55; Admin Dose 100 MG; Start 03/31/19 at 21:00 Acetaminophen (Tylenol Liquid) 650 mg Q4H PRN PEG MILD PAIN(1-3)OR ELEVATED TEMP Last administered on 04/27/19 09:19; Admin Dose 650 MG; Start 03/31/19 at 16:00 Lactobacillus Acidophilus/ Rhamnosus (Culturelle) 1 cap TID GTB Last administered on 04/28/19 09:57; Admin Dose 1 CAP; Start 04/02/19 at 13:00 Epoetin [place]-epbx (Retacrit (Esrd)) 10,000 unit MoWeFr@1700 SC Last administered on 04/24/19 18:07; Admin Dose 10,000 UNIT; Start 04/03/19 at 19:30 Lansoprazole (Prevacid) 30 mg BID@0600,1800 GTB Last administered on 04/28/19 06:12; Admin Dose 30 MG; Start 04/04/19 at 18:00 Multivit/Ca Carb/ B Cmplx/FA/Prenat (Karena-Geovanni) 1 tab DAILY GTB Last administered on 04/28/19 09:57; Admin Dose 1 TAB; Start 04/04/19 at 11:30 Aspirin (Aspirin) 81 mg DAILY PO Last administered on 04/28/19 09:57; Admin Dose 81 MG; Start 04/05/19 at 09:00 Fentanyl 100 ml @ 2.5 mls/hr TITRATE IV Last administered on 04/21/19 02:38; Admin Dose 4 MLS/HR; Start 04/08/19 at 00:00 Midazolam HCl 50 ml @ 1 mls/hr TITRATE PRN IV agitation Last administered on 04/26/19 10:31; Admin Dose 3 MLS/HR; Start 04/08/19 at 00:00 Norepinephrine 250 ml @ 1.875 mls/ hr TITRATE IV Last administered on 04/28/19 06:25; Admin Dose 18.75 MLS/HR; Start 04/08/19 at 00:00 Mupirocin (Bactroban) 1 applic BID TOP Last administered on 04/28/19 09:59; Admin Dose 1 APPLIC; Start 04/09/19 at 21:00 Budesonide (Pulmicort (Neb)) 0.5 mg BID RESP THERAPY HHN Last administered on 04/28/19 08:26; Admin Dose 0.5 MG; Start 04/12/19 at 09:00 Insulin Aspart (Novolog Insulin Pen) NOVOLOG *MILD* ALGORI... Q4 SC Last administered on 04/27/19 20:58; Admin Dose 7 UNIT; Start 04/13/19 at 09:00; Status Hold Clopidogrel Bisulfate (plaVIX) 75 mg DAILY GTB Last administered on 04/28/19 09:57; Admin Dose 75 MG; Start 04/16/19 at 09:00 Quetiapine Fumarate (Seroquel) 50 mg QHS GTB Last administered on 04/27/19 20:55; Admin Dose 50 MG; Start 04/16/19 at 21:00 Alteplase, Recombinant (Cathflo (Activase)) 2 mg MAY REPEAT X1 PRN CATHETER IF CATHETER REMAINS OCCULUDED Last administered on 04/27/19 22:52; Admin Dose 2 MG; Start 04/17/19 at 09:30 Albuterol (Ventolin Hfa) 4 puff Q6H RESP THERAPY INH Last administered on 04/28/19 07:16; Admin Dose 4 PUFF; Start 04/18/19 at 02:00 Ipratropium [place] (Atrovent Hfa) 4 puff Q6H RESP THERAPY INH Last administered on 04/28/19 07:16; Admin Dose 4 PUFF; Start 04/18/19 at 02:00 Docusate Sodium (Colace Liquid Cup) 100 mg BID PEG Last administered on 04/28/19 09:56; Admin Dose 100 MG; Start 04/20/19 at 23:00 Nitroglycerin/ Dextrose 250 ml @ 1.5 mls/hr TITRATE IV Last administered on 04/21/19at 00:24; Admin Dose 1.5 MLS/HR; Start 04/21/19 at 00:30 Miscellaneous Information (Pending Santyl Order For Wound Care) This patient mcneal... PRN PRN XX WOUND CARE; Start 04/21/19 at 18:00 Metoclopramide HCl (Reglan) 5 mg Q6 IV Last administered on 04/28/19at 06:12; Admin Dose 5 MG; Start 04/24/19 at 12:00 Vancomycin HCl (Vanco Iv Per Pharmacy) VANCOMYCIN PER PHARMACY PER PROTOCOL XX ; Start 04/26/19 at 13:00 Morphine Sulfate (morphine) 2 mg Q2H PRN IV SEVERE PAIN LEVEL 7-10; Start 04/27/19 at 09:30 Amikacin Sulfate (Amikacin Iv Per Pharmacy) AMIKACIN PER PHARMACY NOTE XX ; Start 04/27/19 at 11:00 Metronidazole (Flagyl) 250 mg Q6 GTB Last administered on 04/28/19at 06:12; Admin Dose 250 MG; Start 04/27/19 at 12:00 Amikacin Sulfate 300 mg/Sodium Chloride 101.2 ml @ 102 mls/hr AFTER DIALYSIS IVPB ; Start 04/28/19 at 12:00 Diagnostic Test (Pha) (Accu-Chek) 1 ea Q1H XX Last administered on 04/28/19at 06:54; Admin Dose 1 EA; Start 04/27/19 at 22:30 Insulin Human Regular 100 unit/ Sodium Chloride 100 ml @ 0 mls/hr PER PROTOCOL IV Last administered on 04/27/19at 23:20; Admin Dose 4 MLS/HR; Start 04/27/19 at 22:30 Miscellaneous Information (* Miscellaneous Pharmacy Order) Treatment of Hypoglycemia: 1.BG 51... Per protocol XX ; Start 04/27/19 at 22:30 Dextrose (D50w Syringe) 25 ml Q15M PRN IV .DECREASED GLUCOSE; Start 04/27/19 at 22:30 Dextrose (D50w Syringe) 50 ml Q15M PRN IV .DECREASED GLUCOSE; Start 04/27/19 at 22:30 Phenylephrine HCl 40 mg/Dextrose 250 ml @ 37.5 mls/hr TITRATE IV Last administered on 04/28/19at 07:34; Admin Dose 75 MLS/HR; Start 04/28/19 at 04:00 Epinephrine 4 mg/ Dextrose 250 ml @ 3.75 mls/hr TITRATE IV Last administered on 04/28/19at 05:30; Admin Dose 18.75 MLS/HR; Start 04/28/19 at 05:30 Vancomycin HCl 250 ml @ 125 mls/hr Q24H IVPB ; Start 04/29/19 at 11:00; Stop 04/29/19 at 23:59 PEE CHAIDEZ NP Apr 28, 2019 10:48
[2019-04-28] MEDS ORDERED: AMIKACIN 300 MG in SOD CHLORIDE 0.9% 100 ML IVPB SCH (12:00)
[2019-04-28] MEDS ORDERED: morphine (DRIP) 100 MG/100 ML 100 ML IV SCH (12:30)
[2019-04-28] MEDS ORDERED: LIDOCAINE 2 GM/D5W 500 ML BAG ONE (15:00)
[2019-04-28] MEDS ORDERED: CA CHLORIDE 10% 10 ML SYRINGE ONE (15:00)
[2019-04-28] MEDS ORDERED: EPINEPHrine 0.1 MG/ML SYG ONE (15:00)
--- NOTE | 2019-04-28 17:22 | DES ---
Date/Time of Note Date/Time of Note DATE: 04/28/19 TIME: 17:18 Discharge/ Summary Admission/Discharge Info Admit Date/Time Mar 29, 2019 at 13:16 Date/Time April 28, 2019 Final Diagnosis Cardiopulmonary failure secondary to history of CVA and aspiration pneumonitis, history of coronary disease and end-stage renal disease Preliminary Cause of Cardiopulmonary failure secondary to history of CVA and aspiration pneumonitis, history of coronary disease and end-stage renal disease Hospital Course Patient is a 50-year-old male with a history of coronary disease, end-stage renal disease, hypertension and CVA who presented with agitation ultimately suffered from aspiration pneumonia requiring intubation. Patient was unable to be extubated and had a tracheostomy placed, patient became hypoxic likely due to pneumonitis and went to PEA requiring ACLS, patient was ultimately transitioned to comfort care and was pronounced at 1515 on 04/28/2019. ZHANG YOUNG Apr 28, 2019 17:22
[2019-04-29] MEDS ORDERED: VANCOMYCIN 1 GM 250 ML IVPB SCH (11:00)
== END 2019-04-28 15:15 | disposition expired | DRG 4 ==
LOC: E/R 10:08 → ICU 13:16 → CANRESERV 15:29 → EDBEDREQSVC 15:33 → ICU 03-31 07:59 → 6WM 04-01 15:54 → ICU 04-07 23:31
PROVIDERS: ADMIT Internal Medicine; ATTEND Internal Medicine
PROC: 02HV33Z Insertion of Infusion Device into Superior Vena Cava, Percutaneous Approach (ICD-10-PCS; 2019-03-29)
PROC: 30233N1 Transfusion of Nonautologous Red Blood Cells into Peripheral Vein, Percutaneous Approach (ICD-10-PCS; 2019-03-29)
PROC: 5A1D70Z Performance of Urinary Filtration, Intermittent, Less than 6 Hours Per Day (ICD-10-PCS; 2019-03-30)
PROC: 0DH63UZ Insertion of Feeding Device into Stomach, Percutaneous Approach (ICD-10-PCS; 2019-03-30)
PROC: 0DB68ZX Excision of Stomach, Via Natural or Artificial Opening Endoscopic, Diagnostic (ICD-10-PCS; 2019-04-03)
PROC: 0DBK8ZX Excision of Ascending Colon, Via Natural or Artificial Opening Endoscopic, Diagnostic (ICD-10-PCS; 2019-04-03)
PROC: 0DBN8ZX Excision of Sigmoid Colon, Via Natural or Artificial Opening Endoscopic, Diagnostic (ICD-10-PCS; 2019-04-03)
PROC: 0DBH8ZX Excision of Cecum, Via Natural or Artificial Opening Endoscopic, Diagnostic (ICD-10-PCS; 2019-04-03)
PROC: 5A1955Z Respiratory Ventilation, Greater than 96 Consecutive Hours (ICD-10-PCS; 2019-04-08)
PROC: 0BH17EZ Insertion of Endotracheal Airway into Trachea, Via Natural or Artificial Opening (ICD-10-PCS; 2019-04-08)
PROC: 5A1955Z Respiratory Ventilation, Greater than 96 Consecutive Hours (ICD-10-PCS; 2019-04-17)
PROC: 0BH18EZ Insertion of Endotracheal Airway into Trachea, Via Natural or Artificial Opening Endoscopic (ICD-10-PCS; 2019-04-17)
PROC: 0B110F4 Bypass Trachea to Cutaneous with Tracheostomy Device, Open Approach (ICD-10-PCS; principal; 2019-04-26 14:00)
PROC: 30233R1 Transfusion of Nonautologous Platelets into Peripheral Vein, Percutaneous Approach (ICD-10-PCS; 2019-04-27)
PROC: 5A12012 Performance of Cardiac Output, Single, Manual (ICD-10-PCS; 2019-04-28)
DX: G92 Toxic encephalopathy (principal); N18.6 End stage renal disease; A41.9 Sepsis, unspecified organism; R65.21 Severe sepsis with septic shock; J96.01 Acute respiratory failure with hypoxia; J69.0 Pneumonitis due to inhalation of food and vomit; J15.6 Pneumonia due to other Gram-negative bacteria; I63.9 Cerebral infarction, unspecified; I16.1 Hypertensive emergency; N17.9 Acute kidney failure, unspecified; I12.0 Hypertensive chronic kidney disease with stage 5 chronic kidney disease or end stage renal disease; I69.354 Hemiplegia and hemiparesis following cerebral infarction affecting left non-dominant side; G93.49 Other encephalopathy; F05 Delirium due to known physiological condition; Z43.1 Encounter for attention to gastrostomy; I69.998 Other sequelae following unspecified cerebrovascular disease; G40.909 Epilepsy, unspecified, not intractable, without status epilepticus; I95.9 Hypotension, unspecified; R13.10 Dysphagia, unspecified; I25.10 Atherosclerotic heart disease of native coronary artery without angina pectoris; E78.5 Hyperlipidemia, unspecified; N40.0 Benign prostatic hyperplasia without lower urinary tract symptoms; I46.9 Cardiac arrest, cause unspecified; D63.1 Anemia in chronic kidney disease; K29.70 Gastritis, unspecified, without bleeding; K29.80 Duodenitis without bleeding; K20.9 Esophagitis, unspecified; K64.8 Other hemorrhoids; E11.22 Type 2 diabetes mellitus with diabetic chronic kidney disease; I25.2 Old myocardial infarction; R19.7 Diarrhea, unspecified; J32.9 Chronic sinusitis, unspecified; H70.93 Unspecified mastoiditis, bilateral; N47.2 Paraphimosis; I65.23 Occlusion and stenosis of bilateral carotid arteries; R29.732 NIHSS score 32; Z66 Do not resuscitate; Z22.322 Carrier or suspected carrier of Methicillin resistant Staphylococcus aureus; Z99.2 Dependence on renal dialysis; Z95.1 Presence of aortocoronary bypass graft; Z95.5 Presence of coronary angioplasty implant and graft
CPT/HCPCS: 31500; 36430; 36569; 36600; 70450; 70551; 71045; 74018; 74176; 76705; 76937; 80048; 80053; 80061; 80069; 80202; 80307; 81001; 82728; 82803; 82962; 83036; 83540; 83605; 83735; 84100; 84443; 84484; 85014; 85018; 85025; 85045; 85610; 86644; 86850; 86900; 86901; 86920; 86945; 87070; 87081; 87086; 87275; 87276; 87279; 87280; 87340; 88305; 89220; 90935; 92526; 92610; 92950; 93005; 93306; 93880; 94002; 94003; 94640; 94664; 94668; 94770; 95819; 96372; 97110; 97163; 97167; 97530; J2001; C9113; J0171; J0278; J0360; J0690; J1630; J1644; J1815; J1940; J1953; J2060; J2185; J2250; J2270; J2310; J2370; J2405; J2543; J2765; J2997; J3010; J3370; J3480; J7030; J7040; J7042; J7050; J7070; P9016; P9035; P9047; Q5105; Q9967